=== PATIENT | male | born 1945 | race Caucasian/White ===

== ENCOUNTER 2016-06-09 00:05 | Inpatient (IN) | payer MEDICARE, OTHER ==
[2016-06-09] VITALS (74 sets, daily range): BP systolic 66–131; BP diastolic 37–103; PULSE 83–110; RESP 12–33; TEMP 97.9; Ht 185.4 cm; Wt 98.0 kg
[~2016-06-09] VITALS: Ht 185.4 cm; Wt 98.0 kg
[~2016-06-09 00:05] MED LIST: ACYC800T PO; BETA10003 PO; COLC0.6T49 PO; DUTA0.5C PO; ECHI167T PO; FINA5TAB PO; LEVO50TA74 PO; LISI2.5T59 PO; LORA-407 PO; MAGN250T24 PO; METH4TAB PO; PHEN-537 PO; SILO8CAP PO; [UNRECOGNIZED DRUG - OTHER]
[2016-06-09] MEDS ORDERED: SOD CHLORIDE 0.9% 1,000 ML IV STA (00:14)
[2016-06-09] MEDS ORDERED: ONDANSETRON 4 MG INJ IV STA (00:14)
[2016-06-09] MEDS ORDERED: PANTOPRAZOLE IV 80 MG in SOD CHLORIDE 0.9% 100 ML IVPB STA (00:14)
[2016-06-09] MEDS ORDERED: OCTREOTIDE 500 MCG in SOD CHLORIDE 0.9% 49 ML IV STA (00:14)
[2016-06-09] MEDS ORDERED: OCTREOTIDE 50 MCG in SOD CHLORIDE 0.9% 25 ML IVPB STA (00:14)
[2016-06-09] MEDS ORDERED: morphine 4 MG/ML VIAL IV STA (00:14)
[2016-06-09] MEDS ORDERED: PANTOPRAZOLE IV 80 MG in SOD CHLORIDE 0.9% 100 ML IV STA (00:14)
[2016-06-09 00:32] LABS: ADD SCAN DIFF NO
[2016-06-09 00:37] LABS: ABNORMAL IP MESSAGE 1; HEMATOCRIT 16.3 % (42.0-52.0); MEAN CORPUSCULAR HEMOGLOBIN 22.1 pg (29.0-33.0); MEAN CORPUSCULAR HGB CONC 27.6 g/dl (32.0-37.0); MEAN CORPUSCULAR VOLUME 79.9 fl (82.0-101.0); MEAN PLATELET VOLUME 12.4 fl (7.4-10.4); PLATELET COUNT 218 10^3/UL (140-415); RED BLOOD COUNT 2.04 10^6/ul (4.70-6.10); RED CELL DISTRIBUTION WIDTH 19.1 % (11.5-14.5)
[2016-06-09 00:48] LABS: INR 1.56; PROTIME 18.8 Sec (12.2-14.2); PT RATIO 1.5
[2016-06-09 00:49] LABS: ALBUMIN 2.6 g/dl (3.3-4.9); CHLORIDE 103 mmol/L (97-110); PARTIAL THROMBOPLASTIN TIME 32.1 Sec (25.0-35.0); SODIUM 140 mmol/L (135-144)
[2016-06-09 00:50] LABS: POTASSIUM 4.2 mmol/L (3.5-5.1)
[2016-06-09 00:51] LABS: BILIRUBIN,INDIRECT 0.2 mg/dl (0-1.1); BILIRUBIN,TOTAL 0.2 mg/dl (0.2-1.3)
[2016-06-09 00:52] LABS: ALANINE AMINOTRANSFERASE 21 IU/L (13-69); ALBUMIN/GLOBULIN RATIO 0.76; ALKALINE PHOSPHATASE 72 IU/L (42-121); ANION GAP 24 (8-16); ASPARTATE AMINO TRANSFERASE 25 IU/L (15-46); BLOOD UREA NITROGEN 31 mg/dl (7-20); CALCIUM 8.4 mg/dl (8.4-10.2); CARBON DIOXIDE 17 mmol/L (21-31); GLUCOSE 244 mg/dl (70-220); HEMOGLOBIN 4.5 g/dl (14.0-18.0)
[2016-06-09 01:07] LABS: TROPONIN-I < 0.012 ng/ml (0.00-0.12)
[2016-06-09] MEDS ORDERED: SOD CHLORIDE 0.9% 1,000 ML IV ONE (01:30)
[2016-06-09] MEDS ORDERED: FENTAnyl 50 MCG/ML VIAL IV ONE (01:30)
[2016-06-09] MEDS ORDERED: LORAZEPAM 2 MG INJ IV ONE (01:30)
[2016-06-09 02:05] LABS: EOSINOPHILS # 0.5 10^3/ul (0.0-0.5); MONOCYTE # 0.9 10^3/ul (0.3-0.9); NEUTROPHIL # 5.6 10^3/ul (1.6-7.5)
[2016-06-09 02:06] LABS: PLATELET ESTIMATE PLT APPEAR ADEQUATE
--- NOTE | 2016-06-09 02:58 | ERA ---
ER Documentation Chief Complaint Date/Time DATE: 06/09/16 TIME: 02:57 Chief Complaint LARGE AMT OF DARK BLOOD VOMITED X 3 IN THE LAST HOUR HPI This is a 71-year-old male with large amount of dark blood vomiting last 3 hours. Patient has a history of esophageal variceal bleeding. Patient had banding done previously. Patient looks pale and diaphoretic upon arrival via EMS. ROS All systems reviewed and are negative except as per history of present illness. Medications Home Meds Reported Medications Magnesium (Magnesium) 250 Mg Tablet, 250 MG PO AM 05/14/11 [Pruna Lax Laxitive] No Conflict Check 05/14/11 Echinacea* (Echinacea*) 167 Mg Tablet, 167 MG PO BID 05/14/11 Beta-Carotene (Beta Carotene) 10,000 Unit Capsule, 20159 UNIT PO TID 05/14/11 Dutasteride* (Avodart*) 0.5 Mg Capsule, 0.5 MG PO AM 05/14/11 Methylprednisolone* (Medrol*) 4 Mg Tab, 4 MG PO PRN ITCHING Y 05/14/11 Acyclovir* (Acyclovir*) 800 Mg Tablet, 800 MG PO QID 05/14/11 Loratadine (Claritin) 10 Mg Tablet, 10 MG PO AM Y 05/14/11 Silodosin (Rapaflo) 8 Mg Capsule, 8 MG PO AM 05/14/11 Finasteride* (Proscar*) 5 Mg Tablet, 5 MG PO AM 05/14/11 Phenazopyridine Hcl* (Pyridium*) 100 Mg Tab, 100 MG PO PRN PAINFUL URINATIO Y 05/14/11 Lisinopril* (Lisinopril*) 2.5 Mg Tablet, 2.5 MG PO UNKNWOWN DOSE AM 05/14/11 Colchicine (Colchicine) 0.6 Mg Tablet, 0.6 MG PO BID 05/14/11 Levothyroxine Sodium* (Levothyroxine Sodium*) 50 Mcg Tablet, 50 MCG PO UNKNOWN DOSE AM 05/14/11 Allergies Allergies: Coded Allergies: ibuprofen (Verified Allergy, RASH, 05/14/11) PMhx/Soc History of Surgery: Yes (MUTIPLE PROSTATE/RECTAL SX'S/APPENDIX) Anesthesia Reaction: No Hx Neurological Disorder: No Hx Respiratory Disorders: No Hx Cardiac Disorders: Yes (HTN,SWELLING +3 BILATERAL LE,AT TIMES HR IRREGULAR) Hx Psychiatric Problems: No Hx Miscellaneous Medical Probl: Yes (ANEMIA,FMF,MICHAEL PONCE, HEP C, LIVER CIRRHOSIS) Hx Alcohol Use: Yes (DAILY 2 DRINKS - FORMER) Hx Substance Use: No Hx Tobacco Use: No (QUIT 2 YEARS AGO/100 PACK YEARS) Smoking Status: Former smoker Physical Exam Vitals Vital Signs Date Time Temp Pulse Resp B/P Pulse Ox O2 Delivery O2 Flow Rate FiO2 06/09/16 01:36 106 83/49 06/09/16 01:02 97.5 103 24 83/51 100 Room Air 06/09/16 00:25 Nasal Cannula 4 06/09/16 00:20 96.2 114 24 65/37 100 Physical Exam Const: [] Head: Atraumatic Eyes: Normal Conjunctiva ENT: Normal External Ears, Nose and Mouth. Neck: Full range of motion..~ No meningismus. Resp: Clear to auscultation bilaterally Cardio: Regular rate and rhythm, no murmurs Abd: Soft, non tender, non distended. Normal bowel sounds Skin: No petechiae or rashes Back: No midline or flank tenderness Ext: No cyanosis, or edema Neur: Awake and alert Psych: Normal Mood and Affect Result Diagram: 06/09/16 0022 06/09/16 0022 Results 24 hrs Laboratory Tests Test 06/09/16 00:22 Activated Partial Thromboplast Time 32.1Sec Alanine Aminotransferase (ALT/SGPT) 21IU/L Albumin 2.6g/dl Albumin/Globulin Ratio 0.76 Alkaline Phosphatase 72IU/L Anion Gap 24 Aspartate Amino Transf (AST/SGOT) 25IU/L Blood Urea Nitrogen 31mg/dl Calcium Level 8.4mg/dl Carbon Dioxide Level 17mmol/L Chloride Level 103mmol/L Creatinine 1.20mg/dl Direct Bilirubin 0.00mg/dl Eosinophils # 0.510^3/ul Eosinophils % 5.0% Globulin 3.40g/dl Glucose Level 244mg/dl Hematocrit 16.3% Hemoglobin 4.5g/dl INR International Normalized Ratio 1.56 Indirect Bilirubin 0.2mg/dl Lipase 230U/L Lymphocytes # 3.010^3/ul Lymphocytes % 30.0% Mean Corpuscular Hemoglobin 22.1pg Mean Corpuscular Hemoglobin Concent 27.6g/dl Mean Corpuscular Volume 79.9fl Mean Platelet Volume 12.4fl Monocytes # 0.910^3/ul Monocytes % 9.0% Neutrophils # 5.610^3/ul Neutrophils % 56.0% Platelet Count 47250^3/UL Platelet Estimate PLT APPEAR ADEQUATE Potassium Level 4.2mmol/L Prothrombin Time 18.8Sec Prothrombin Time Ratio 1.5 Red Blood Count 2.0410^6/ul Red Cell Distribution Width 19.1% Sodium Level 140mmol/L Total Bilirubin 0.2mg/dl Total Protein 6.0g/dl Troponin I < 0.012ng/ml White Blood Count 10.010^3/ul Current Medications Medications (Trade) Dose Ordered Sig/Osman Route PRN Reason Start Time Stop Time Status Last Admin Dose Admin Sodium Chloride 1,000 ml @ 1,000 mls/hr Q1H STAT IV 06/09/16 00:14 06/09/16 01:13 DC 06/09/16 00:41 Pantoprazole 80 mg/Sodium Chloride 100 ml @ 400 mls/hr ONCE STAT IVPB 06/09/16 00:14 06/09/16 00:28 DC 06/09/16 00:45 Pantoprazole 80 mg/Sodium Chloride 100 ml @ 10 mls/hr ONCE STAT IV 06/09/16 00:14 06/09/16 10:13 06/09/16 00:44 Octreotide Acetate 50 mcg/ Sodium Chloride 26 ml @ 100 mls/hr Q16M STAT IVPB 06/09/16 00:14 06/09/16 00:29 DC 06/09/16 00:45 Octreotide Acetate/Sodium Chloride (Sandostatin/NS) 50 ml @ 5 mls/hr ONCE STAT IV 06/09/16 00:14 06/09/16 10:13 06/09/16 00:44 Ondansetron HCl (Zofran Inj) 4 mg ONCE STAT IV 06/09/16 00:14 06/09/16 00:17 DC 06/09/16 00:42 Morphine Sulfate 4 mg 4 mg ONCE STAT IV 06/09/16 00:14 06/09/16 00:17 DC 06/09/16 00:42 Sodium Chloride (NS) 1,000 ml @ 1,000 mls/hr Q1H ONCE IV 06/09/16 01:30 06/09/16 02:29 DC 06/09/16 01:19 Fentanyl (Sublimaze) 50 mcg ONCE ONCE IV 06/09/16 01:30 06/09/16 01:31 DC 06/09/16 01:19 Lorazepam (Ativan) 1 mg ONCE ONCE IV 06/09/16 01:30 06/09/16 01:31 DC 06/09/16 01:47 Procedures/MDM EKG: Rate/Rhythm: [Normal Sinus Rhythm] QRS, ST, T-waves: [No changes consistent w/ acute ischemia] Impression: [No evidence of ischemia or arrhythmia] Emergency department course and medical doing making decision: Patient was immediately taken to room and 2 large-bore IVs placed. He was given normal some fluid bolus. He is typed and crossed for 4 units of blood. NG tube was placed. 600 mL's of blood was drained. GI was consulted immediately. Patient was started on Protonix and Sandostatin drip. Patient will be admitted to intensive care unit. Pending esophageal variceal banding by GI. Critical Care: Time: 45 minutes Treatments/Evaluations: Close monitoring and treatment of unstable vital signs, cardiorespiratory, and neurologic status, while maintaining tight balance of fluid, respiratory, and cardiac interventions. Departure Diagnosis: Primary Impression: Gastrointestinal hemorrhage Qualified Code: K92.0 - Gastrointestinal hemorrhage with hematemesis Condition: Critical MONTY MACEDO Jun 09, 2016 02:58
--- NOTE | 2016-06-09 02:58 | RADRPT ---
PROCEDURE: XR Chest. CLINICAL INDICATION: NG tube placement. TECHNIQUE: Single frontal chest x-ray. COMPARISON: None. FINDINGS: Heart is enlarged.. There is hypoventilation with bibasilar atelectasis.. No CHF.. There is no ple ural effusion. There is no pneumothorax. The osseous structures are unremarkable. NG tube tip is in the stomach. Bowel gas pattern is unremarkable. IMPRESSION: Cardiomegaly. Hypoventilation with bibasilar atelectasis. NG tube tip in the stomach. RPTAT: HMVK .Mario Interiano MD, Date Time Electronically viewed and signed by .Mario Interiano MD, on 06/09/2016 02:58 .K/
[2016-06-09] MEDS ORDERED: DEXTROSE 5%-0.45% NACL 1,000 ML IV SCH (04:01)
[2016-06-09] MEDS ORDERED: NORepinephrine 8MG/250 ML (PMX 250 ML IV SCH (04:30)
[2016-06-09] MEDS ORDERED: ONDANSETRON 4 MG INJ IV PRN (04:30)
[2016-06-09] MEDS ORDERED: ALBUTEROL 0.5% (NEB) 2.5 MG/0.5 ML AMP NEB PRN (04:30)
--- NOTE | 2016-06-09 04:45 | HP ---
Date/Time of Note Date/Time of Note DATE: 06/09/16 TIME: 04:25 Assessment/Plan VTE Prophylaxis VTE Prophylaxis Intervention: SCD's Assessment/Plan Assessment/Plan 1. Upper GI Bleed, most likely 2/2 bleeding EV - Protonix and Octreotide gtt - Cont Blood Transfusion - Awaiting GI Eval - Admit to ICU and Pressor support as needed - check Iron profile and ferritin - check H/H frequently until hgb stable 2. Severe Anemia - see above 3. Decompensated Alcoholic Liver Cirrhosis - Will obtain Abd u/s. Paracentesis PRN - Lasix and Aldactone when BP stable. Lactulose when no longer NPO. He also need to be on propranolol if BP allows - pt last drink a year ago. Encouraged continued abstinence 4. Hypotension: 2/2 GI Bleed. Improved - cont blood transfusion and IVF - pressors as needed - awaiting EGD 5. Hypothyroidism - Synthroid when no longer NPO. If prolonged NPO, will start on IV with appropriate dose adjustment DVT ppx: SCDs. Avoid anti-coagulation GI ppx: cont Protonix gtt HPI/ROS Admit Date/Time Admit Date/Time Hx of Present Illness This is a 71 yo male with hx of HTN, hypothyroidism, alcoholic liver cirrhosis who presented to ER for hematemesis. He is accompanied by his son and grand daughter who provided almost all history. Pt is somehow sleepy, but arousable and is able to answer questions with help of membership counselor. He has been feeling weak and nauseous all day yesterday, then had hematemesis with large amount of bright red blood(family took a picture on cell phone). This is his first episode of upper GI Bleed. He had noted dark stool in the past. He had an EGD 3 months ago, but per son no banding/ligation. They also reported hx of hepatic encephalopathy. He is not entirely compliant with all his medication. In ER, he was found to be severely anemic with hgb of 4.5 and hypotensive with initial BP of 65/37. Currently his is receiving blood transfusion and awaiting GI evaluation. . PMH/Family/Social Past Medical History Medical History: hypertension, hyperthyroid, other (cirrhosis) Past Surgical History 1. hernia 2. lap choley 3. cataract Social History Alcohol Use: sober Smoking Status: Former smoker Drug Use: none Exam/Review of Systems Vital Signs Vitals Vital Signs Date Time Temp Pulse Resp B/P Pulse Ox O2 Delivery O2 Flow Rate FiO2 06/09/16 03:15 101 15 96/70 06/09/16 03:00 97.7 100 Room Air 06/09/16 00:25 4 Exam Constitutional: other (Sleepy, but arousable. obese) Head: atraumatic, normocephalic Eyes: EOMI, PERRL, icteric Respiratory: clear to auscultation, normal air movement Cardiovascular: other (tachycardic withregular rhythm) Gastrointestinal: other (obese), soft, tender Extremities: normal pulses, other (trace pitting edema in lower ext bilaterally ) Labs Result Diagram: 06/09/16 0022 06/09/16 0022 Medications Medications Current Medications Dextrose/Sodium Chloride (D5-1/2ns) 1,000 ml @ 100 mls/hr Q10H IV ; Start at 04:01 Ondansetron HCl (Zofran Inj) 4 mg Q6H PRN IV NAUSEA AND/OR VOMITING; Start 06/09 at 04:30 Morphine Sulfate (morphine) 2 mg Q4H PRN IV PAIN LEVEL 7-10; Start 06/09/16 at 04:30 Lorazepam 1 mg 1 mg Q2H PRN IV ANXIETY; Start 06/09/16 at 04:30 Norepinephrine (Levophed) 250 ml @ 1.875 mls/ hr TITRATE IV ; Start 06/09/16 at 04:30; Status UNV Lactulose 20 gm 20 gm Q8 PO ; Start 06/09/16 at 12:00; Status UNV Pantoprazole 80 mg/Sodium Chloride 100 ml @ 10 mls/hr Q10H IV ; Start 06/09/16 at 04:04; Status UNV Octreotide Acetate/Sodium Chloride (Sandostatin/NS) 50 ml @ 2.5 mls/hr Q20H IV ; Start 06/09/16 at 04:04; Status UNV MONTY SEARS MD Jun 09, 2016 04:36
--- NOTE | 2016-06-09 05:26 | CONS ---
Date/Time of Note Date/Time of Note DATE: 06/09/16 TIME: 05:26 Consultation Date/Type/Reason Admit Date/Time Past Medical History Medical History: hypertension, hyperthyroid, other (cirrhosis) Social History Alcohol Use: sober Smoking Status: Former smoker Drug Use: none Exam/Review of Systems Vital Signs Vitals Vital Signs Date Time Temp Pulse Resp B/P Pulse Ox O2 Delivery O2 Flow Rate FiO2 06/09/16 04:42 97.9 99 16 84/65 99 Room Air 2.0 Intake and Output 06/08/16 06/08/16 06/09/16 15:00 23:00 07:00 Intake Total 2126 ml Output Total 800 ml Balance 1326 ml Results Result Diagram: 06/09/16 0022 06/09/16 0022 Results 24 hrs Laboratory Tests Test 06/09/16 00:22 Activated Partial Thromboplast Time 32.1 Alanine Aminotransferase (ALT/SGPT) 21 Albumin 2.6 L Albumin/Globulin Ratio 0.76 Alkaline Phosphatase 72 Anion Gap 24 H Aspartate Amino Transf (AST/SGOT) 25 Blood Urea Nitrogen 31 H Calcium Level 8.4 Carbon Dioxide Level 17 L Chloride Level 103 Creatinine 1.20 Direct Bilirubin 0.00 Eosinophils # 0.5 Eosinophils % 5.0 Globulin 3.40 H Glucose Level 244 H Hematocrit 16.3 L Hemoglobin 4.5 *L INR International Normalized Ratio 1.56 Indirect Bilirubin 0.2 Lipase 230 Lymphocytes # 3.0 H Lymphocytes % 30.0 Mean Corpuscular Hemoglobin 22.1 L Mean Corpuscular Hemoglobin Concent 27.6 L Mean Corpuscular Volume 79.9 L Mean Platelet Volume 12.4 H Monocytes # 0.9 Monocytes % 9.0 Neutrophils # 5.6 Neutrophils % 56.0 Platelet Count 218 Platelet Estimate PLT APPEAR ADEQUATE Potassium Level 4.2 Prothrombin Time 18.8 H Prothrombin Time Ratio 1.5 Red Blood Count 2.04 L Red Cell Distribution Width 19.1 H Sodium Level 140 Total Bilirubin 0.2 Total Protein 6.0 L Troponin I < 0.012 White Blood Count 10.0 Medications Medications Current Medications Dextrose/Sodium Chloride (D5-1/2ns) 1,000 ml @ 100 mls/hr Q10H IV ; Start at 04:01 Ondansetron HCl (Zofran Inj) 4 mg Q6H PRN IV NAUSEA AND/OR VOMITING; Start 06/09 at 04:30 Morphine Sulfate (morphine) 2 mg Q4H PRN IV PAIN LEVEL 7-10; Start 06/09/16 at 04:30 Lorazepam 1 mg 1 mg Q2H PRN IV ANXIETY; Start 06/09/16 at 04:30 Norepinephrine (Levophed) 250 ml @ 1.875 mls/ hr TITRATE IV ; Start 06/09/16 at 04:30; Stop 06/09/16 at 09:59 Lactulose 20 gm 20 gm Q8H PO ; Start 06/09/16 at 12:00 Pantoprazole 80 mg/Sodium Chloride 100 ml @ 10 mls/hr Q10H IV ; Start 06/09/16 at 10:14 Octreotide Acetate/Sodium Chloride (Sandostatin/NS) 50 ml @ 2.5 mls/hr Q20H IV ; Start 06/09/16 at 06:00 Dutasteride (Avodart) 0.5 mg AM PO ; Start 06/09/16 at 09:00 Finasteride (Proscar) 5 mg AM PO ; Start 06/09/16 at 09:00 Levothyroxine Sodium 50 mcg 50 mcg DAILY@06 PO ; Start 06/09/16 at 06:00 Norepinephrine/ Dextrose (Levophed/D5W) 500 ml @ 1.87 mls/hr TITRATE IV ; Start 06/09/16 at 10:00 JAC DAVIS MD Jun 09, 2016 05:26
[2016-06-09] MEDS: LEVOTHYROXINE 50 MCG TAB PO SCH (06:00)
[2016-06-09] MEDS ORDERED: PROPOFOL 100 ML ONE (06:17)
--- NOTE | 2016-06-09 06:26 | CONS ---
Date/Time of Note Date/Time of Note DATE: 06/09/16 TIME: 06:17 Assessment/Plan Assessment/Plan Additional Assessment/Plan Assessment: * Upper GI bleeding * Likely variceal * Cirrhosis of the liver, alcohol induced * Probable esophageal varices * Small amount of ascites * Mild coagulopathy * History of alcohol abuse * History of hypothyroidism Plan: * Proceed with emergency EGD * Further recommendation will depend on her findings Consultation Date/Type/Reason Admit Date/Time Date of Consultation: Jun 09, 2016 Type of Consultation: GI Reason for Consultation * GI bleeding Hx of Present Illness 71-year-old male primarily Samoan-speaking, interviewed in the presence of his son and granddaughter who translated. The patient is known case of cirrhosis of the liver secondary to alcohol abuse. He has in the past been seen by Dr. Orlando who perform endoscopic examination and told him he had varices initially recommended banding but subsequently this was not performed. The patient presented to the emergency room with significant hematemesis and hemoglobin of 4.5. Nasogastric lavage disclosed large amounts of fresh blood. The patient is alert, oriented and uncomfortable. We will proceed with emergency endoscopy possible banding at this time. The procedure has been explained to the patient's son who translates the patient including risks, benefits and alternatives. They are agreeable to proceed. Constitutional: other (Weakness) Eyes: no complaints, No discharge, No other, No pain, No redness, No visual change ENT: no complaints, No bleeding, No congestion, No discharge, No dysphagia, No other, No pain, No sore throat Respiratory: no complaints Cardiovascular: no complaints, No chest pain, No edema, No lightheadedness, No orthopenea, No other, No palpitations, No paroxysmal nocturnal dyspnea Gastrointestinal: no complaints, other (Hematemesis), pain (Diffuse abdominal pain, mild), No blood, No constipation, No decreased appetite, No diarrhea, No flatus, No nausea, No passing stool, No vomiting Genitourinary: no complaints, No bleeding, No discharge, No dysuria, No flank pain, No hematuria, No other Musculoskeletal: no complaints, No back pain, No bone/joint pain, No neck pain, No other, No restricted range of motion, No swelling Skin: no complaints, No bruising, No erythema, No laceration, No other, No pruritis, No rash, No skin lesions Neurologic: no complaints, No confusion, No dizziness, No focal-weakness, No headache, No other, No seizure, No syncope Endocrine: no complaints, No dry skin, No other, No polydypsia, No polyuria, No temp intolerance Lymphatic: no complaints, No adenopathy, No lymphadema, No other, No tender nodes Psychological: anxiety, no complaints, No confusion Immunologic: no complaints, No immunodeficiency, No other, No pruritis, No rhinitis, No urticaria Past Medical History Medical History: hypertension, hyperthyroid, other (cirrhosis) Past Surgical History Past Surgical Hx: no surgical history Family History Significant Family History: no pertinent family hx Social History Alcohol Use: other (Previously heavy ethanol abuse) Smoking Status: Former smoker Drug Use: none Exam/Review of Systems Vital Signs Vitals Vital Signs Date Time Temp Pulse Resp B/P Pulse Ox O2 Delivery O2 Flow Rate FiO2 06/09/16 04:42 97.9 99 16 84/65 99 Room Air 2.0 Intake and Output 06/08/16 06/08/16 06/09/16 15:00 23:00 07:00 Intake Total 2126 ml Output Total 800 ml Balance 1326 ml Exam Constitutional: alert, oriented, other (Anxious, in mild distress due to abdominal discomfort), well developed Psych: anxiety, nl mood/affect, no complaints Head: atraumatic, normocephalic Eyes: EOMI, PERRL, nl conjunctiva, nl lids, nl sclera ENMT: nl external ears & nose, nl lips & teeth, nl nasal mucosa & septum Neck: non-tender, supple Respiratory: clear to auscultation, diminished breath sounds, normal air movement, No crackles/rales, No wheezing Cardiovascular: nl pulses, regular rate and rhythm, No edema, No murmurs/extra sounds, No rub Gastrointestinal: ascites, bowel sounds, distended, nl liver, spleen, soft, tender (Mild diffuse), No hepatomegaly, No mass, No rebound or guarding, No splenomegaly Musculoskeletal: nl extremities to inspection, No swelling Extremities: normal pulses, No calf tenderness, No clubbing, No edema, No tenderness Skin: nl turgor, No rash or lesions Lymph: nl lymph nodes Results Result Diagram: 06/09/16 0022 06/09/16 0022 Results 24 hrs Laboratory Tests Test 06/09/16 00:22 Activated Partial Thromboplast Time 32.1 Alanine Aminotransferase (ALT/SGPT) 21 Albumin 2.6 L Albumin/Globulin Ratio 0.76 Alkaline Phosphatase 72 Anion Gap 24 H Aspartate Amino Transf (AST/SGOT) 25 Blood Urea Nitrogen 31 H Calcium Level 8.4 Carbon Dioxide Level 17 L Chloride Level 103 Creatinine 1.20 Direct Bilirubin 0.00 Eosinophils # 0.5 Eosinophils % 5.0 Globulin 3.40 H Glucose Level 244 H Hematocrit 16.3 L Hemoglobin 4.5 *L INR International Normalized Ratio 1.56 Indirect Bilirubin 0.2 Lipase 230 Lymphocytes # 3.0 H Lymphocytes % 30.0 Mean Corpuscular Hemoglobin 22.1 L Mean Corpuscular Hemoglobin Concent 27.6 L Mean Corpuscular Volume 79.9 L Mean Platelet Volume 12.4 H Monocytes # 0.9 Monocytes % 9.0 Neutrophils # 5.6 Neutrophils % 56.0 Platelet Count 218 Platelet Estimate PLT APPEAR ADEQUATE Potassium Level 4.2 Prothrombin Time 18.8 H Prothrombin Time Ratio 1.5 Red Blood Count 2.04 L Red Cell Distribution Width 19.1 H Sodium Level 140 Total Bilirubin 0.2 Total Protein 6.0 L Troponin I < 0.012 White Blood Count 10.0 Medications Medications Current Medications Dextrose/Sodium Chloride (D5-1/2ns) 1,000 ml @ 100 mls/hr Q10H IV ; Start at 04:01 Ondansetron HCl (Zofran Inj) 4 mg Q6H PRN IV NAUSEA AND/OR VOMITING; Start 06/09 at 04:30 Morphine Sulfate (morphine) 2 mg Q4H PRN IV PAIN LEVEL 7-10; Start 06/09/16 at 04:30 Lorazepam 1 mg 1 mg Q2H PRN IV ANXIETY; Start 06/09/16 at 04:30 Norepinephrine (Levophed) 250 ml @ 1.875 mls/ hr TITRATE IV ; Start 06/09/16 at 04:30; Stop 06/09/16 at 09:59 Lactulose 20 gm 20 gm Q8H PO ; Start 06/09/16 at 12:00 Pantoprazole 80 mg/Sodium Chloride 100 ml @ 10 mls/hr Q10H IV ; Start 06/09/16 at 10:14 Octreotide Acetate/Sodium Chloride (Sandostatin/NS) 50 ml @ 2.5 mls/hr Q20H IV ; Start 06/09/16 at 06:00 Dutasteride (Avodart) 0.5 mg AM PO ; Start 06/09/16 at 09:00 Finasteride (Proscar) 5 mg AM PO ; Start 06/09/16 at 09:00 Levothyroxine Sodium 50 mcg 50 mcg DAILY@06 PO ; Start 06/09/16 at 06:00 Norepinephrine 16 mg/Dextrose 500 ml @ 1.87 mls/hr TITRATE IV ; Start 06/09/16 at 10:00 Propofol (Diprivan) 100 ml @ 3 mls/hr Q12H IV ; Start 06/09/16 at 06:30 JAC DAVIS MD Jun 09, 2016 06:26
[2016-06-09] MEDS: PROPOFOL 100 ML IV SCH ×7 (06:30→22:55)
[2016-06-09] MEDS ORDERED: PHENYLephrine (100 MCG/ML) 5ML SYG ONE (06:38)
[2016-06-09] MEDS ORDERED: PROPOFOL 40 ML ONE (06:38)
[2016-06-09] MEDS ORDERED: SUCCINYLCHOLINE CHLORIDE 100 MG/5 ML SYG IV ONE (07:00)
--- NOTE | 2016-06-09 08:24 | RADRPT ---
PROCEDURE: Abdominal ultrasound CLINICAL INDICATION: Abdominal pain TECHNIQUE: Petersen scale ultrasound images of the four abdominal quadrant was performed for evaluatio n of ascites. COMPARISON: None. FINDINGS: No ascites is seen. IMPRESSION: No free fluid is seen. RPTAT: AADD .Srinivasan Alonzo MD, Date Time Electronically viewed and signed by .Srinivasan Alonzo MD, on 06/09/2016 08:23 .B/
[2016-06-09] MEDS: OCTREOTIDE 500 MCG in SOD CHLORIDE 0.9% 49 ML IV SCH (08:46)
[2016-06-09] MEDS: DUTASTERIDE 0.5 MG CAP PO SCH (09:00)
[2016-06-09] MEDS: FINASTERIDE 5 MG TAB PO SCH (09:00)
--- NOTE | 2016-06-09 09:02 | RADRPT ---
PROCEDURE: XR Chest. CLINICAL INDICATION: Status post intubation TECHNIQUE: An AP view of the chest was obtained. COMPARISON: Chest x-ray dated 06/09/2016 FINDINGS: The endotracheal tube tip is approximately 3.5 cm above the sandi. Lung volumes are low. There is prominence of the interstitial markings. There are left lower lobe and lingular alveolar opacities. No pleural effusion or pneumothorax is seen. The cardiomediastinal silhouette is mildly enlarged . Calcifications are seen within the aortic arch. The osseous struc tures demonstrate senescent changes. IMPRESSION: 1. Interval intubation. The endotracheal tube tip is 2.5 cm above the sandi. 2. Lingular and left lower lobe alveolar opacities, new finding when compared to the prior examinat ion, concerning for pneumonia. 3. Low lung volumes. 4. Mild cardiomegaly and aortic atherosclerosis. RPTAT: HH .Lesley Flores MD, MD Date Time Electronically viewed and signed by .Lesley Flores MD, on 06/09/2016 09:02 .Aleksandra/
[2016-06-09 09:21] LABS: AADO2 Arterial 289.3 mmHg (7.0-24.0); Allen Test ACCEPTAB; Arterial Base Excess -8.6 mmol/L (-3.0-3); Arterial COHb 0.3 % (0.0-3.0); Arterial Fraction of Oxyhgb 98.2 % (93.0-99.0); Arterial HCO3 17.1 mmol/L (22.0-26.0); Arterial MetHb 0.5 % (0.0-1.5); MODE VENT - AC
[2016-06-09] MEDS: PANTOPRAZOLE IV 80 MG in SOD CHLORIDE 0.9% 100 ML IV SCH ×2 (11:08→20:23)
[2016-06-09] MEDS: LACTULOSE 30ML CUP PO SCH ×2 (11:08→20:00)
--- NOTE | 2016-06-09 11:09 | CONS ---
Date/Time of Note Date/Time of Note DATE: 06/09/16 TIME: 11:02 Assessment/Plan Assessment/Plan Additional Assessment/Plan Ventilator settings; assist control of 14, tidal volume 500, PEEP of 5, 40% FiO2. Chest x-ray was reviewed from earlier today which is essentially clear this was prior to intubation. Postintubation chest x-ray showing extensive infiltrative changes involving the left lung. Endo-tracheal tube is at an adequate level. Assessment recommendations; 1. Patient admitted with massive upper GI bleed status post emergent EGD with banding of varices. Status post blood transfusion. 2. Likely aspiration pneumonia involving the left lung. 3. Patient maintained on Protonix as well as Sandostatin drips. 4. Metabolic acidosis, should maintain on sodium bicarb drip as well. 5. History of hypothyroidism. Continue current supportive care. Add cefepime and vancomycin. Obtain follow- up chest x-ray tomorrow morning. Monitor H&H. Consultation Date/Type/Reason Admit Date/Time Date of Consultation: Jun 09, 2016 Type of Consultation: Pulmonary/critical care Reason for Consultation Pulmonary consultation obtained for patient with respiratory failure. Admitted with massive upper GI bleed. Next History of present illness; patient is a 71-year-old white male who was brought into the emergency room with several hours history of vomiting fresh blood. Upon evaluation patient was found to be severely anemic. He underwent emergent EGD with banding of esophageal varices. Patient also has received packed RBCs. At the time I saw him the patient is orally intubated, sedated. Does not appear to be in any distress. History was obtained from medical records. Past medical history; 1. History of alcoholism with cirrhosis. 2. Hypothyroidism. 3. BPH. 4. Hypertension. 5. History of herpes simplex infection. 6. History of cataract surgery with bilateral intraocular lens implants. 7. Possibly COPD. Next Medications; were reviewed. Allergies; are to ibuprofen. Social history; patient drinks alcohol heavily. Has 100 pack year smoking history as well however he quit 2 years ago. Family history; noncontributory. Occupational history; not available. Review of systems; currently unable to be obtained. General examination; elderly male, appears quite overweight. Orally intubated, sedated. Currently in no distress. Constitutional: other (Weakness) Eyes: no complaints, No discharge, No other, No pain, No redness, No visual change ENT: no complaints, No bleeding, No congestion, No discharge, No dysphagia, No other, No pain, No sore throat Respiratory: no complaints Cardiovascular: no complaints, No chest pain, No edema, No lightheadedness, No orthopenea, No other, No palpitations, No paroxysmal nocturnal dyspnea Gastrointestinal: no complaints, other (Hematemesis), pain (Diffuse abdominal pain, mild), No blood, No constipation, No decreased appetite, No diarrhea, No flatus, No nausea, No passing stool, No vomiting Genitourinary: no complaints, No bleeding, No discharge, No dysuria, No flank pain, No hematuria, No other Musculoskeletal: no complaints, No back pain, No bone/joint pain, No neck pain, No other, No restricted range of motion, No swelling Skin: no complaints, No bruising, No erythema, No laceration, No other, No pruritis, No rash, No skin lesions Neurologic: no complaints, No confusion, No dizziness, No focal-weakness, No headache, No other, No seizure, No syncope Endocrine: no complaints, No dry skin, No other, No polydypsia, No polyuria, No temp intolerance Lymphatic: no complaints, No adenopathy, No lymphadema, No other, No tender nodes Psychological: anxiety, nl mood/affect, no complaints Immunologic: no complaints, No immunodeficiency, No other, No pruritis, No rhinitis, No urticaria Past Medical History Medical History: hypertension, hyperthyroid, other (cirrhosis) Past Surgical History Past Surgical Hx: no surgical history Social History Alcohol Use: other (Previously heavy ethanol abuse) Smoking Status: Former smoker Drug Use: none Exam/Review of Systems Vital Signs Vitals Vital Signs Date Time Temp Pulse Resp B/P Pulse Ox O2 Delivery O2 Flow Rate FiO2 06/09/16 07:45 97 86/50 100 06/09/16 07:15 18 Mechanical Ventilator 06/09/16 06:00 100 06/09/16 05:45 2.0 06/09/16 05:30 97.8 Intake and Output 06/08/16 06/08/16 06/09/16 15:00 23:00 07:00 Intake Total 2141 ml Output Total 800 ml Balance 1341 ml Exam H EENT examination; supple neck, no JVD. No lymphadenopathy. Midline trachea. Patient is orally intubated. Has bilateral intraocular lens implants. Pupils are small bilaterally. He is edentulous. Chest examination; diminished breath sounds left lung. Right lung is clear. S1 -S2 audible, no murmurs. Regular rhythm. Abdomen examination; protuberant, bowel sounds audible. No organomegaly felt. Extremity examination; no peripheral edema. Pulses 1+ bilaterally. PRODUCTION WELDER examination; patient is sedated. Results Result Diagram: 06/09/16 0022 06/09/16 0022 Results 24 hrs Laboratory Tests Test 06/09/16 00:22 06/09/16 07:00 Activated Partial Thromboplast Time 32.1 Alanine Aminotransferase (ALT/SGPT) 21 Albumin 2.6 L Albumin/Globulin Ratio 0.76 Alkaline Phosphatase 72 Anion Gap 24 H Aspartate Amino Transf (AST/SGOT) 25 Blood Urea Nitrogen 31 H Calcium Level 8.4 Carbon Dioxide Level 17 L Chloride Level 103 Creatinine 1.20 Direct Bilirubin 0.00 Eosinophils # 0.5 Eosinophils % 5.0 Globulin 3.40 H Glucose Level 244 H Hematocrit 16.3 L Hemoglobin 4.5 *L INR International Normalized Ratio 1.56 Indirect Bilirubin 0.2 Lipase 230 Lymphocytes # 3.0 H Lymphocytes % 30.0 Mean Corpuscular Hemoglobin 22.1 L Mean Corpuscular Hemoglobin Concent 27.6 L Mean Corpuscular Volume 79.9 L Mean Platelet Volume 12.4 H Monocytes # 0.9 Monocytes % 9.0 Neutrophils # 5.6 Neutrophils % 56.0 Platelet Count 218 Platelet Estimate PLT APPEAR ADEQUATE Potassium Level 4.2 Prothrombin Time 18.8 H Prothrombin Time Ratio 1.5 Red Blood Count 2.04 L Red Cell Distribution Width 19.1 H Sodium Level 140 Total Bilirubin 0.2 Total Protein 6.0 L Troponin I < 0.012 White Blood Count 10.0 Arterial Blood HCO3 17.1 L Arterial Blood Base Excess -8.6 L Arterial Blood Oxygen Saturation 99.0 Adelso Test ACCEPTAB Arterial Blood Gas Puncture Site Right Radial Arterial Blood Carboxyhemoglobin 0.3 Arterial Blood Date Drawn 06/09/2016 9:00:11 AM Arterial Blood Methemoglobin 0.5 Arterial Blood pCO2 (Temp correct) 35.7 Arterial Blood pH (Temp corrected) 7.298 *L Arterial Blood pO2 (Temp corrected) 388.0 H Blood Gas A-a O2 Differential 289.3 H Blood Gas Actual Respiration Rate 20 Blood Gas Critical Value Read Back Vicky CHAPPELL RN Blood Gas Low PEEP Setting 5.0 Blood Gas Modality VENT - AC Blood Gas Notified Time 06/09/2016 9:21:35 AM Blood Gas Notified Whom Padmini BOX Blood Gas Respiration Rate 12.0 Blood Gas Specimen Source Blood arterial Blood Gas Temperature 37.0 Blood Gas Tidal Volume 650.0 FiO2 100.0 Oxyhemoglobin Percent 98.2 Total Hemoglobin 9.0 L Medications Medications Current Medications Ondansetron HCl (Zofran Inj) 4 mg Q6H PRN IV NAUSEA AND/OR VOMITING; Start 06/09 at 04:30 Morphine Sulfate (morphine) 2 mg Q4H PRN IV PAIN LEVEL 7-10; Start 06/09/16 at 04:30 Lorazepam (Ativan) 1 mg Q2H PRN IV ANXIETY; Start 06/09/16 at 04:30 Lactulose 20 gm 20 gm Q8H PO ; Start 06/09/16 at 12:00 Pantoprazole 80 mg/Sodium Chloride 100 ml @ 10 mls/hr Q10H IV ; Start 06/09/16 at 10:14 Octreotide Acetate/Sodium Chloride (Sandostatin/NS) 50 ml @ 2.5 mls/hr Q20H IV Last administered on 06/09/16 08:46; Admin Dose 2.5 MLS/HR; Start 06/09/16 at 06:00 Dutasteride (Avodart) 0.5 mg AM PO ; Start 06/09/16 at 09:00 Finasteride (Proscar) 5 mg AM PO ; Start 06/09/16 at 09:00 Levothyroxine Sodium 50 mcg 50 mcg DAILY@06 PO ; Start 06/09/16 at 06:00 Norepinephrine 16 mg/Dextrose 500 ml @ 1.87 mls/hr TITRATE IV ; Start 06/09/16 at 10:00 Propofol 100 ml @ 3 mls/hr Q12H IV Last administered on 06/09/16 10:18; Admin Dose 27.6 MLS/HR; Start 06/09/16 at 06:30 Propofol 100 ml @ 3 mls/hr Q12H IV ; Start 06/09/16 at 06:30 Sodium Bicarbonate/ Dextrose/Sodium Chloride (Na Bicarb/D5-1/ 2ns) 1,100 ml @ 100 mls/hr Q11H IV ; Start 06/09/16 at 11:30 LEE ANN LEROY Jun 09, 2016 11:09
[2016-06-09] MEDS ORDERED: VANCOMYCIN IV PER PHARMACY XX SCH (11:30)
--- NOTE | 2016-06-09 11:44 | GILP ---
DATE OF PROCEDURE: 06/09/2016 PROCEDURES: Emergency esophagogastroduodenoscopy with endoscopic variceal ligation (banding). PREMEDICATION: Initially MAC converted to general anesthesia. SURGEON: Jac Arce MD. TECHNIQUE: After informed consent, with the patient/relatives understanding the procedure, its indic ations, potential risks and complications, including but not limited to: allergic reaction, bleeding , perforation or infection, and after all pertinent questions were answered to the patients satisfac tion, the patient/relatives signed witnessed informed consent. Following this, premedication was administered slowly IV push under careful cardiovascular and respi ratory monitoring with pulse oximetry, automatic blood pressure and gambling monitor. Once the sedative effect was achieved the patient was place in the left lateral decubitus, the panen doscope was introduced and advanced under visual control. Careful examination of the upper gastrointestinal tract, both on insertion as well as withdrawal of the instrument disclosed the following findings: ESOPHAGUS: There are very large esophageal varices with active bleeding in the distal esophagus. STOMACH: Briefly examined. Large amounts of clots and old blood are present. There appears to be no accumulation or evidence of active bleeding or potential bleeding lesions in the stomach, pylorus or duodenum. At this point, instrument was withdrawn and the banding device was attached to the instrument and gi neil the presence of active bleeding and large amounts of blood in the stomach, the decision was made to intubate the patient protect the airway. Once intubation was accomplished, the endoscope was re introduced and the bleeding site was identified again, active bleeding was present. The band was ap plied to the active bleeding with complete cessation of bleeding. All other prominent varices were banded as well. The patient tolerated the procedure well. IMPRESSION: 1. Actively bleeding esophageal varix post-endoscopic variceal ligation with cessation of bleeding. 2. Large amounts of blood and clots in the stomach but no active bleeding or potential bleeding les ions present. The pylorus appears patent and duodenum with no lesions. PLAN 1. Continue to protect airway until patient's stomach is empty. 2. Protonix and octreotide drips, Reglan. 3. Hemoglobin and hematocrit q.6 h. and transfuse to maintain hemoglobin above 7.5. Dictated By: JAC ARCE MS/NTS Conf#: [id number] DID#: [id number]
[2016-06-09] MEDS: CEFEPIME 1GM/50 ML (PMX) 50 ML IVPB SCH ×2 (12:36→21:34)
[2016-06-09] MEDS: SODIUM BICARBONATE (IV ADD) 100 MEQ in DEXTROSE 5%-0.45% NACL 1,000 ML IV SCH (12:36)
[2016-06-09] MEDS ORDERED: LIDOCAINE 1% (MDV) 20 ML INJ SC ONE (13:00)
[2016-06-09] MEDS ORDERED: VANCOMYCIN 2 GM in SOD CHLORIDE 0.9% 500 ML IVPB SCH (13:30)
[2016-06-09 14:10] LABS: ADD SCAN DIFF NO
[2016-06-09 14:14] LABS: ABNORMAL IP MESSAGE 1; BASOPHILS % 0.4 % (0.0-2.0); EOSINOPHILS # 0.1 10^3/ul (0.0-0.5); EOSINOPHILS % 0.7 % (0.0-7.0); HEMATOCRIT 19.5 % (42.0-52.0); LYMPHOCYTES # 1.1 10^3/ul (0.8-2.9); LYMPHOCYTES % 9.3 % (15.0-51.0); MEAN CORPUSCULAR HEMOGLOBIN 26.6 pg (29.0-33.0); MEAN CORPUSCULAR HGB CONC 33.3 g/dl (32.0-37.0); MEAN CORPUSCULAR VOLUME 79.9 fl (82.0-101.0); MEAN PLATELET VOLUME 11.8 fl (7.4-10.4); MONOCYTE # 1.1 10^3/ul (0.3-0.9); MONOCYTES % 9.9 % (0.0-11.0); PLATELET COUNT 134 10^3/UL (140-415); RED BLOOD COUNT 2.44 10^6/ul (4.70-6.10); RED CELL DISTRIBUTION WIDTH 16.3 % (11.5-14.5); WHITE BLOOD COUNT 11.4 10^3/ul (4.8-10.8)
[2016-06-09 14:16] LABS: HEMOGLOBIN 6.5 g/dl (14.0-18.0)
[2016-06-09 14:23] LABS: ALBUMIN 2.4 g/dl (3.3-4.9)
[2016-06-09 14:26] LABS: ALBUMIN/GLOBULIN RATIO 0.75; BILIRUBIN,INDIRECT 0.5 mg/dl (0-1.1); BILIRUBIN,TOTAL 0.5 mg/dl (0.2-1.3); CALCIUM 7.6 mg/dl (8.4-10.2); CREATININE 1.69 mg/dl (0.61-1.24); TOTAL PROTEIN 5.6 g/dl (6.1-8.1)
[2016-06-09 15:05] LABS: ADD SCAN DIFF NO
[2016-06-09 15:07] LABS: BASOPHILS % 0.3 % (0.0-2.0); EOSINOPHILS # 0.1 10^3/ul (0.0-0.5); HEMATOCRIT 19.8 % (42.0-52.0); LYMPHOCYTES # 1.2 10^3/ul (0.8-2.9); LYMPHOCYTES % 10.1 % (15.0-51.0); MEAN CORPUSCULAR HEMOGLOBIN 26.9 pg (29.0-33.0); MEAN CORPUSCULAR HGB CONC 32.8 g/dl (32.0-37.0); MEAN CORPUSCULAR VOLUME 81.8 fl (82.0-101.0); MEAN PLATELET VOLUME 10.8 fl (7.4-10.4); MONOCYTE # 1.1 10^3/ul (0.3-0.9); NEUTROPHIL # 8.9 10^3/ul (1.6-7.5); NEUTROPHILS % 78.1 % (39.0-77.0); PLATELET COUNT 134 10^3/UL (140-415); RED BLOOD COUNT 2.42 10^6/ul (4.70-6.10); RED CELL DISTRIBUTION WIDTH 16.4 % (11.5-14.5); WHITE BLOOD COUNT 11.4 10^3/ul (4.8-10.8)
[2016-06-09 15:14] LABS: HEMOGLOBIN 6.5 g/dl (14.0-18.0)
[2016-06-09 15:15] LABS: ABNORMAL IP MESSAGE 1
[2016-06-09] MEDS ORDERED: SOD CHLORIDE 0.9% 250 ML IV* ONE (15:23)
[2016-06-09] MEDS ORDERED: SOD CHLORIDE 0.9% 250 ML IV* SCH (15:23)
[2016-06-09 15:32] LABS: CREATININE 1.63 mg/dl (0.61-1.24)
[2016-06-09 15:33] LABS: CALCIUM 7.5 mg/dl (8.4-10.2)
--- NOTE | 2016-06-09 16:17 | RADRPT ---
PROCEDURE: XR Chest. CLINICAL INDICATION: PICC line placement TECHNIQUE: Single frontal view of the chest was obtained COMPARISON: Same day FINDINGS: There is a new left-sided PICC line in place with its tip overlying the mid to lower right atrium. The heart is mildly enlarged. There are decreased patchy left lower lobe infiltrates. There is an endotracheal tube 5 cm above the sandi. RPTAT: AA IMPRESSION: New PICC line with its tip overlying the mid to low right atrium. Retraction of 4 cm is recommended . Decreased patchy left lower lobe infiltrates. .Cayetano Heath MD, MD Date Time Electronically viewed and signed by .Cayetano Heath MD, on 06/09/2016 16:16 .S/
--- NOTE | 2016-06-09 16:25 | RADRPT ---
PROCEDURE: US guidance for PICC line CLINICAL INDICATION: PICC line placement TECHNIQUE: Multiple real-time images were acquired of the patient's arm utilizing a high resolutio n transducer. This was performed by the PICC line nurse for venous access. COMPARISON: None FINDINGS: Ultrasound guidance for PICC line placement. IMPRESSION: Ultrasound guidance for PICC line placement. RPTAT: AA .Cayetano Heath MD, MD Date Time Electronically viewed and signed by .Cayetano Heath MD, on 06/09/2016 16:25 .S/
[2016-06-09] MEDS ORDERED: NA POLYST SULFON 15 GM/60 ML BTL PO ONE ×2 (17:00→19:00)
[2016-06-09] MEDS ORDERED: NA BICARBONATE 8.4% 50 ML SYG IV STA (17:28)
[2016-06-09] MEDS ORDERED: NA POLYST SULFON 15 GM/60 ML BTL PR ONE (17:30)
--- NOTE | 2016-06-09 18:23 | CONS ---
DATE OF ADMISSION: 06/09/2016 DATE OF CONSULTATION: 06/09/2016 Thank you very much for allowing me to evaluate this 71-year-old male admitted today with hematemesi s and now evidence of renal insufficiency. HISTORICAL EVENTS: As you well know, this patient does have a history of hypertension as well as al coholic liver disease and cirrhosis and history of familial Mediterranean fever, admitted via the ER with hemetemesis and now evidence of impaired renal function. Bright red blood was noted upon admi ssion as well as accompanying hypotension. He was rapidly transferred to the intensive care unit an d was intubated. He received 6 units of fresh frozen plasma and was rapidly volume expanded. Endos copy revealed bleeding esophageal varices and these were banded. He presently cannot provide me wit h any additional historical events. He remains on pressors. PHYSICAL EXAMINATION: VITAL SIGNS: BP 105/69, heart rate 96, respirations 26. NECK: No JVD. LUNGS: Reduced breath sounds. HEART: Rhythm regular. No murmur. ABDOMEN: Distended. Organomegaly not appreciated. His abdomen was soft. EXTREMITIES: Revealed no edema. LABORATORY AND DIAGNOSTIC STUDIES: Hematocrit 16.3 on admission. At 1400, hematocrit was 19.5. Cr eatinine 1.2 on admission, increased to 1.69 and presently 1.63 as of 1450. Last bicarbonate was 22 . TSH 0.308. Albumin 2.4. AST and ALT 174 and 100 respectively. Alkaline phosphatase was normal. Bilirubin 0.5. Ultrasound of the abdomen revealed no ascites present. Crandall catheter remains in place. IMPRESSION: Impaired renal function most likely prerenal. Uncertain what his baseline renal functi on is. The prerenal component is related to intravascular volume contraction along with hypotension . RECOMMENDATIONS: Given mild metabolic acidosis and his elevated potassium, we will give additional IV bicarbonate and continue his intravenous fluids that contain the same. Random urinary sodium to be obtained to ascertain whether this is a prerenal component. We will follow with you. Dictated By: LBADIMIR LAFLEUR MD MR/NTS Conf#: [id number] DID#: [id number] CC: MONTY SEARS MD; DIOMEDES MOULTON MD;*EndCC*
[2016-06-09] MEDS ORDERED: NA BICARBONATE 8.4% 50 ML SYG IV ONE (19:00)
--- NOTE | 2016-06-09 21:12 | RADRPT ---
PROCEDURE: Retroperitoneal ultrasound. CLINICAL INDICATION: Renal insufficiency TECHNIQUE: Petersen scale and color doppler ultrasound images of the retroperitoneum, kidneys, urinary bladder COMPARISON: Abdominal ultrasound 06/09/2016 FINDINGS: Right kidney 12.6 cm in length. Right renal cortical thickness is preserved. Left kidney 11.2 cm in length. Left renal cortical thickness is preserved. Increased parenchymal echogenicity of the kidneys is observed, suggestive of medical renal disease. No hydronephrosis. No renal calculi. 9 mm cortical cyst of the superior pole of the right kidney is present. Bladder: No focal lesions. IMPRESSION: Increased parenchymal echogenicity of the kidneys is observed, suggestive of medical renal disease. No hydronephrosis. RPTAT: AADD .Srinivasan Alonzo MD, Date Time Electronically viewed and signed by .Srinivasan Alonzo MD, on 06/09/2016 21:11 .B/
[2016-06-09] MEDS: morphine 2 MG INJ IV PRN (21:31)
[2016-06-09] MEDS: VANCOMYCIN 1 GM in NS 250 ML IVPB SCH (23:05)
[2016-06-10] VITALS (77 sets, daily range): BP systolic 88–130; BP diastolic 39–87; PULSE 77–109; RESP 13–20
[2016-06-10 01:19] LABS: POTASSIUM 4.9 mmol/L (3.5-5.1)
[2016-06-10 01:22] LABS: CREATININE 1.6 mg/dl (0.61-1.24)
[2016-06-10 01:23] LABS: CALCIUM 7.1 mg/dl (8.4-10.2); PHOSPHORUS 3.4 mg/dl (2.5-4.9)
[2016-06-10] MEDS: SODIUM BICARBONATE (IV ADD) 100 MEQ in DEXTROSE 5%-0.45% NACL 1,000 ML IV SCH (01:24)
[2016-06-10 01:42] LABS: HEMATOCRIT 22.5 % (42.0-52.0); HEMOGLOBIN 7.4 g/dl (14.0-18.0)
[2016-06-10] MEDS: PROPOFOL 100 ML IV SCH ×6 (02:49→22:27)
--- NOTE | 2016-06-10 03:24 | RADRPT ---
PROCEDURE: XR Chest. CLINICAL INDICATION: Nasogastric tube placement. TECHNIQUE: Single frontal view of the chest was obtained COMPARISON: Chest dated 06/09/2016. FINDINGS: Nasogastric tube in place with tip and side port in the proximal to mid stomach. The tip is redirec nancy towards the gastroesophageal junction. Endotracheal intubation is seen with tip about 4-5 cm above the sandi. Left central venous line in place with tip in the superior vena cava versus superior vena cava right atrial junction. Cardiomegaly and discoid atelectasis at the left lung base. The right lung is clear. There is no pleural effusion or pneumothorax. IMPRESSION: 1. Nasogastric tube in place with the tip and the side port in the proximal to mid stomach. 2. Endotracheal intubation is seen with tip about 4-5 cm above the sandi. 3. Left central venous line in place with tip in the superior vena cava versus superior vena cava r ight atrial junction. 4. Cardiomegaly and discoid atelectasis at the left lung base. RPTAT: UU Physician Jose Date Time Electronically viewed and signed by Physician Jose on 06/10/2016 03:24 RS/
[2016-06-10 05:02] LABS: HEMATOCRIT 20.1 % (42.0-52.0)
[2016-06-10 05:04] LABS: INR 1.48; PT RATIO 1.4
[2016-06-10 05:05] LABS: PARTIAL THROMBOPLASTIN TIME 32.3 Sec (25.0-35.0)
[2016-06-10] MEDS: LEVOTHYROXINE 50 MCG TAB PO SCH (05:06)
[2016-06-10] MEDS: LACTULOSE 30ML CUP PO SCH ×3 (05:06→21:17)
[2016-06-10 05:07] LABS: POTASSIUM 4.9 mmol/L (3.5-5.1)
[2016-06-10 05:10] LABS: CREATININE 1.49 mg/dl (0.61-1.24)
[2016-06-10 05:11] LABS: CALCIUM 6.5 mg/dl (8.4-10.2); MAGNESIUM 1.6 mg/dl (1.7-2.5)
[2016-06-10 06:12] LABS: HEMOGLOBIN 6.6 g/dl (14.0-18.0)
[2016-06-10 07:22] LABS: AADO2 Arterial 129.7 mmHg (7.0-24.0); Allen Test ACCEPTAB; Arterial Base Excess 1.4 mmol/L (-3.0-3); Arterial COHb 0.2 % (0.0-3.0); Arterial Fraction of Oxyhgb 96.5 % (93.0-99.0); Arterial HCO3 25.3 mmol/L (22.0-26.0); Arterial MetHb 0.7 % (0.0-1.5); Arterial Total Hemglobin 8.8 g/dl (12.0-18.0); MODE VENT - AC
[2016-06-10] MEDS: OCTREOTIDE 500 MCG in SOD CHLORIDE 0.9% 49 ML IV SCH ×2 (07:51→22:00)
[2016-06-10] MEDS: PANTOPRAZOLE IV 80 MG in SOD CHLORIDE 0.9% 100 ML IV SCH ×2 (08:00→17:05)
[2016-06-10] MEDS: FINASTERIDE 5 MG TAB PO SCH (09:00)
[2016-06-10] MEDS: DUTASTERIDE 0.5 MG CAP PO SCH (09:00)
[2016-06-10 09:18] LABS: ADD UMIC NO; URINE BILIRUBIN (Dip) NEGATIVE (NEGATIVE); URINE BLOOD (Dip) NEGATIVE (NEGATIVE); URINE COLOR LT. YELLOW (YELLOW); URINE GLUCOSE (Dip) NEGATIVE (NEGATIVE); URINE KETONES (Dip) NEGATIVE (NEGATIVE); URINE LEUKOCYTE ESTERASE (Dip) NEGATIVE (NEGATIVE); URINE NITRITE (Dip) NEGATIVE (NEGATIVE); URINE TOTAL PROTEIN (Dip) NEGATIVE (NEGATIVE); URINE UROBILINOGEN (Dip) 0.2 E.U./dL (0.1-1.0)
[2016-06-10] MEDS ORDERED: MAGNESIUM SULFATE 2 GM/50 ML 50 ML IVPB ONE (09:30)
[2016-06-10] MEDS: CEFEPIME 1GM/50 ML (PMX) 50 ML IVPB SCH ×2 (09:31→21:17)
[2016-06-10] MEDS: DEXTROSE 5%-0.45% NACL 1,000 ML IV SCH ×3 (09:32→22:27)
--- NOTE | 2016-06-10 09:39 | CONS ---
Date/Time of Note Date/Time of Note DATE: 06/10/16 TIME: 09:29 Assessment/Plan Assessment/Plan Chief Complaint/Hosp Course 1. Acute on chronic renal failure . His renal function is improved . He has increased echogenicity of renal cortex , consistent with CKD . Replace Magnesium and change IV fluids . 2. GI bleeding , from esophageal varices 3. hepatic encephalopathy , due to cirrhosis and Gi bleeding 4. respiratory failure on ventilator Problems: Consultation Date/Type/Reason Admit Date/Time Jun 09, 2016 at 04:01 Initial Consult Date 06/09/16 Type of Consultation: Pulmonary/critical care 24 HR Interval Summary Free Text/Dictation He is unresponsive on a ventilator . He continues to have GI bleeding . Subjective hx not possible: pt non-verbal Exam/Review of Systems Vital Signs Vitals Vital Signs Date Time Temp Pulse Resp B/P Pulse Ox O2 Delivery O2 Flow Rate FiO2 06/10/16 08:00 84 15 104/54 100 Mechanical Ventilator 06/10/16 08:00 40 06/10/16 07:30 98.5 06/09/16 05:45 2.0 Intake and Output 06/09/16 06/09/16 06/10/16 15:00 23:00 07:00 Intake Total 905 ml 3043.826 ml 1513.224 ml Output Total 60 ml 0 ml 1330 ml Balance 845 ml 3043.826 ml 183.224 ml Exam Respiratory: clear to auscultation, diminished breath sounds Cardiovascular: regular rate and rhythm Gastrointestinal: soft Musculoskeletal: nl extremities to inspection Results Result Diagram: 06/10/16 0430 06/10/16 0710 Results 24 hrs Laboratory Tests Test 06/09/16 14:00 06/09/16 14:50 06/10/16 00:33 06/10/16 04:30 Alanine Aminotransferase (ALT/SGPT) 100 H Albumin 2.4 L Albumin/Globulin Ratio 0.75 Alkaline Phosphatase 58 Anion Gap 16 # 16 15 13 Aspartate Amino Transf (AST/SGOT) 174 #H Basophils # 0.0 0.0 Basophils % 0.4 0.3 Blood Urea Nitrogen 41 H 44 H 51 H 53 H Calcium Level 7.6 L 7.5 L 7.1 L 6.5 L Carbon Dioxide Level 23 22 25 30 Chloride Level 107 108 106 107 Creatinine 1.69 H 1.63 H 1.60 H 1.49 H Direct Bilirubin 0.00 Eosinophils # 0.1 0.1 Eosinophils % 0.7 1.0 Globulin 3.20 Glucose Level 125 # 120 135 373 #H Hematocrit 19.5 L 19.8 L 22.5 L 20.1 L Hemoglobin 6.5 #*L 6.5 *L 7.4 L 6.6 *L Indirect Bilirubin 0.5 Lactic Acid Level 2.5 H Lymphocytes # 1.1 1.2 Lymphocytes % 9.3 L 10.1 L Mean Corpuscular Hemoglobin 26.6 #L 26.9 L Mean Corpuscular Hemoglobin Concent 33.3 # 32.8 Mean Corpuscular Volume 79.9 L 81.8 L Mean Platelet Volume 11.8 H 10.8 H Monocytes # 1.1 H 1.1 H Monocytes % 9.9 10.0 Neutrophils # 9.0 H 8.9 H Neutrophils % 79.0 H 78.1 H Nucleated Red Blood Cells # 0.0 0.0 Nucleated Red Blood Cells % 0.0 0.0 Platelet Count 134 #L 134 L Potassium Level 6.0 H 4.9 4.9 Red Blood Count 2.44 L 2.42 L Red Cell Distribution Width 16.3 H 16.4 H Sodium Level 140 140 141 145 H Thyroid Stimulating Hormone (TSH) 0.308 L Total Bilirubin 0.5 Total Protein 5.6 L White Blood Count 11.4 H 11.4 H Ammonia 183 H Magnesium Level 1.7 1.6 L Phosphorus Level 3.4 3.0 Activated Partial Thromboplast Time 32.3 INR International Normalized Ratio 1.48 Prothrombin Time 18.0 H Prothrombin Time Ratio 1.4 Test 06/10/16 07:00 06/10/16 07:10 Arterial Blood HCO3 25.3 Arterial Blood Base Excess 1.4 Arterial Blood Oxygen Saturation 97.4 Adelso Test ACCEPTAB Arterial Blood Gas Puncture Site Right Radial Arterial Blood Carboxyhemoglobin 0.2 Arterial Blood Date Drawn 06/10/2016 7:07:19 AM Arterial Blood Methemoglobin 0.7 Arterial Blood pCO2 (Temp correct) 37.0 Arterial Blood pH (Temp corrected) 7.453 H Arterial Blood pO2 (Temp corrected) 113.0 H Blood Gas A-a O2 Differential 129.7 H Blood Gas Actual Respiration Rate 16 Blood Gas Low PEEP Setting 5.0 Blood Gas Modality VENT - AC Blood Gas Notified Time 06/10/2016 7:22:07 AM Blood Gas Notified Whom TM Blood Gas Respiration Rate 12.0 Blood Gas Specimen Source Blood arterial Blood Gas Temperature 37.0 Blood Gas Tidal Volume 650.0 FiO2 40.0 Oxyhemoglobin Percent 96.5 Total Hemoglobin 8.8 L Urine Bilirubin NEGATIVE Urine Clarity CLEAR Urine Color LT. YELLOW Urine Glucose NEGATIVE Urine Hemoglobin NEGATIVE Urine Ketones NEGATIVE Urine Leukocyte Esterase NEGATIVE Urine Nitrite NEGATIVE Urine Random Sodium < 13 L Urine Specific [place] 1.015 Urine Total Protein NEGATIVE Urine Urobilinogen 0.2 E.U./dL Urine pH 5.5 Glucose Level 140 # Medications Medications Current Medications Ondansetron HCl (Zofran Inj) 4 mg Q6H PRN IV NAUSEA AND/OR VOMITING; Start 06/09 at 04:30 Morphine Sulfate (morphine) 2 mg Q4H PRN IV PAIN LEVEL 7-10 Last administered on 06/09/16 21:31; Admin Dose 2 MG; Start 06/09/16 at 04:30 Lorazepam (Ativan) 1 mg Q2H PRN IV ANXIETY; Start 06/09/16 at 04:30 Lactulose 20 gm 20 gm Q8H PO Last administered on 06/10/16 05:06; Admin Dose 20 GM; Start 06/09/16 at 12:00 Pantoprazole 80 mg/Sodium Chloride 100 ml @ 10 mls/hr Q10H IV Last administered on 06/09/16 20:23; Admin Dose 10 MLS/HR; Start 06/09/16 at 10:14 Octreotide Acetate/Sodium Chloride (Sandostatin/NS) 50 ml @ 2.5 mls/hr Q20H IV Last administered on 06/10/16 07:51; Admin Dose 2.5 MLS/HR; Start 06/09/16 at 06:00 Dutasteride (Avodart) 0.5 mg AM PO ; Start 06/09/16 at 09:00 Finasteride (Proscar) 5 mg AM PO ; Start 06/09/16 at 09:00 Levothyroxine Sodium 50 mcg 50 mcg DAILY@06 PO Last administered on 06/10/16 05 :06; Admin Dose 50 MCG; Start 06/09/16 at 06:00 Norepinephrine 16 mg/Dextrose 500 ml @ 1.87 mls/hr TITRATE IV Last administered on 06/09/16 12:58; Admin Dose 1.87 MLS/HR; Start 06/09/16 at 10:00 Propofol 100 ml @ 3 mls/hr Q12H IV Last administered on 06/10/16 05:17; Admin Dose 29.034 MLS/HR; Start 06/09/16 at 06:30 Cefepime HCl 50 ml @ 100 mls/hr Q12 IVPB Last administered on 06/09/16 21:34; Admin Dose 100 MLS/HR; Start 06/09/16 at 12:00 Vancomycin HCl (Vancocin) 250 ml @ 125 mls/hr Q12H IVPB Last administered on 23:05; Admin Dose 125 MLS/HR; Start 06/09/16 at 23:00 IV Flush 10 ml 10 ml PRN PRN IV IV PROTOCOL; Start 06/09/16 at 17:00 Dextrose/Sodium Chloride 1,000 ml @ 125 mls/hr Q8H IV ; Start 06/10/16 at 09:30 ; Status UNV Magnesium Sulfate (Magnesium Sulfate 2 Gm/50 ml) 50 ml @ 25 mls/hr ONCE ONCE IVPB ; Start 06/10/16 at 09:30; Stop 06/10/16 at 11:29; Status UNV YOSELYN DIXON MD Jun 10, 2016 09:39
--- NOTE | 2016-06-10 09:45 | PN ---
DATE: 06/10/2016 FOLLOWUP NOTE SUBJECTIVE: Patient Sinan remains stable this morning, intubated and sedated on mechanical venti lation, currently hemodynamically stable. PHYSICAL EXAMINATION: VITAL SIGNS: Temperature 98, pulse 84, blood pressure 104/55, O2 saturation 96% on 40% FIO2. HEENT: Pupils are equal and reactive to light. CARDIAC EXAM: S1, S2. No added sounds or murmurs. CHEST: Diminished air entry bilaterally. ABDOMEN: Soft, nontender. No guarding or rebound. EXTREMITIES: No cyanosis, clubbing, edema. NEUROLOGIC: Unable to assess. The patient is intubated and sedated. LABORATORY: White count was 11.4, hemoglobin is 7.6, platelets 134. Chemistry: BUN 53, creatinine 1.49. Ammonia level was 183. INR 1.48. IMPRESSION AND PLAN: 1. Acute gastrointestinal bleed, status post emergency endoscopy, with variceal ligation. 2. History of possible cirrhosis. 3. Morbid obesity. 4. Probable aspiration pneumonia. 5. Hypoxemic respiratory failure. 6. Chronic obstructive pulmonary disease. 7. Probable underlying obstructive sleep apnea. Patient will require: 1. Correction of low hemoglobin, with transfusion of packed red blood cells. 2. Correction of metabolic acidosis per renal. 3. Continue mechanical ventilation. 4. Continue Protonix and GI recommendations. 5. DVT and GI prophylaxis. Dictated By: DENIZ WILLIS/RICK Conf#: [id number] DID#: [id number]
[2016-06-10] MEDS ORDERED: PANTOPRAZOLE IV 80 MG in SOD CHLORIDE 0.9% 100 ML IV SCH (10:00)
[2016-06-10] MEDS: VANCOMYCIN 1 GM in NS 250 ML IVPB SCH ×2 (11:13→23:27)
--- NOTE | 2016-06-10 13:49 | CONS ---
Date/Time of Note Date/Time of Note DATE: 06/10/16 TIME: 13:44 Assessment/Plan Assessment/Plan Additional Assessment/Plan Assessment/Plan: * Upper GI bleeding * Status post EGD: 1. Actively bleeding esophageal varix post-endoscopic variceal ligation with cessation of bleeding. 2. Large amounts of blood and clots in the stomach but no active bleeding or potential bleeding lesions present. The pylorus appears patent and duodenum with no lesions. * Cirrhosis of the liver, alcohol induced * Probable esophageal varices * Small amount of ascites * Mild coagulopathy * History of alcohol abuse * History of hypothyroidism * Further recommendation will depend on clinical findings * Patient seen in collaboration with Dr. Arce Consultation Date/Type/Reason Admit Date/Time Jun 09, 2016 at 04:01 Initial Consult Date 06/09/16 Type of Consultation: Gastroenterology 24 HR Interval Summary Free Text/Dictation 2 units in process Hemoglobin 6.5 Intubated and sedated Exam/Review of Systems Vital Signs Vitals Vital Signs Date Time Temp Pulse Resp B/P Pulse Ox O2 Delivery O2 Flow Rate FiO2 06/10/16 13:30 78 15 90/43 100 Mechanical Ventilator 06/10/16 12:00 98.4 06/10/16 10:51 40 06/09/16 05:45 2.0 Intake and Output 06/09/16 06/09/16 06/10/16 15:00 23:00 07:00 Intake Total 905 ml 3043.826 ml 1513.224 ml Output Total 60 ml 0 ml 1390 ml Balance 845 ml 3043.826 ml 123.224 ml Exam Constitutional: Sedated, well-nourished, and in no distress Psych: anxiety, nl mood/affect, no complaints Head: atraumatic, normocephalic Eyes: EOMI, PERRL, nl conjunctiva, nl lids, nl sclera ENMT: nl external ears & nose, nl lips & teeth, nl nasal mucosa & septum Neck: non-tender, supple Respiratory: Intubated Cardiovascular: nl pulses, regular rate and rhythm, No edema, No murmurs/extra sounds, No rub Gastrointestinal: ascites, bowel sounds, distended, nl liver, spleen, soft, tender (Mild diffuse), No hepatomegaly, No mass, No rebound or guarding, No splenomegaly Musculoskeletal: nl extremities to inspection, No swelling Extremities: normal pulses, No calf tenderness, No clubbing, No edema, No tenderness Skin: nl turgor, No rash or lesions Lymph: nl lymph nodes Results Result Diagram: 06/10/16 0430 06/10/16 0710 Results 24 hrs Laboratory Tests Test 06/09/16 14:00 06/09/16 14:50 06/10/16 00:33 06/10/16 04:30 Alanine Aminotransferase (ALT/SGPT) 100 H Albumin 2.4 L Albumin/Globulin Ratio 0.75 Alkaline Phosphatase 58 Anion Gap 16 # 16 15 13 Aspartate Amino Transf (AST/SGOT) 174 #H Basophils # 0.0 0.0 Basophils % 0.4 0.3 Blood Urea Nitrogen 41 H 44 H 51 H 53 H Calcium Level 7.6 L 7.5 L 7.1 L 6.5 L Carbon Dioxide Level 23 22 25 30 Chloride Level 107 108 106 107 Creatinine 1.69 H 1.63 H 1.60 H 1.49 H Direct Bilirubin 0.00 Eosinophils # 0.1 0.1 Eosinophils % 0.7 1.0 Globulin 3.20 Glucose Level 125 # 120 135 373 #H Hematocrit 19.5 L 19.8 L 22.5 L 20.1 L Hemoglobin 6.5 #*L 6.5 *L 7.4 L 6.6 *L Indirect Bilirubin 0.5 Lactic Acid Level 2.5 H Lymphocytes # 1.1 1.2 Lymphocytes % 9.3 L 10.1 L Mean Corpuscular Hemoglobin 26.6 #L 26.9 L Mean Corpuscular Hemoglobin Concent 33.3 # 32.8 Mean Corpuscular Volume 79.9 L 81.8 L Mean Platelet Volume 11.8 H 10.8 H Monocytes # 1.1 H 1.1 H Monocytes % 9.9 10.0 Neutrophils # 9.0 H 8.9 H Neutrophils % 79.0 H 78.1 H Nucleated Red Blood Cells # 0.0 0.0 Nucleated Red Blood Cells % 0.0 0.0 Platelet Count 134 #L 134 L Potassium Level 6.0 H 4.9 4.9 Red Blood Count 2.44 L 2.42 L Red Cell Distribution Width 16.3 H 16.4 H Sodium Level 140 140 141 145 H Thyroid Stimulating Hormone (TSH) 0.308 L Total Bilirubin 0.5 Total Protein 5.6 L White Blood Count 11.4 H 11.4 H Ammonia 183 H Magnesium Level 1.7 1.6 L Phosphorus Level 3.4 3.0 Activated Partial Thromboplast Time 32.3 INR International Normalized Ratio 1.48 Prothrombin Time 18.0 H Prothrombin Time Ratio 1.4 Test 06/10/16 07:00 06/10/16 07:10 Arterial Blood HCO3 25.3 Arterial Blood Base Excess 1.4 Arterial Blood Oxygen Saturation 97.4 Adelso Test ACCEPTAB Arterial Blood Gas Puncture Site Right Radial Arterial Blood Carboxyhemoglobin 0.2 Arterial Blood Date Drawn 06/10/2016 7:07:19 AM Arterial Blood Methemoglobin 0.7 Arterial Blood pCO2 (Temp correct) 37.0 Arterial Blood pH (Temp corrected) 7.453 H Arterial Blood pO2 (Temp corrected) 113.0 H Blood Gas A-a O2 Differential 129.7 H Blood Gas Actual Respiration Rate 16 Blood Gas Low PEEP Setting 5.0 Blood Gas Modality VENT - AC Blood Gas Notified Time 06/10/2016 7:22:07 AM Blood Gas Notified Whom TM Blood Gas Respiration Rate 12.0 Blood Gas Specimen Source Blood arterial Blood Gas Temperature 37.0 Blood Gas Tidal Volume 650.0 FiO2 40.0 Oxyhemoglobin Percent 96.5 Total Hemoglobin 8.8 L Urine Bilirubin NEGATIVE Urine Clarity CLEAR Urine Color LT. YELLOW Urine Glucose NEGATIVE Urine Hemoglobin NEGATIVE Urine Ketones NEGATIVE Urine Leukocyte Esterase NEGATIVE Urine Nitrite NEGATIVE Urine Random Sodium < 13 L Urine Specific [place] 1.015 Urine Total Protein NEGATIVE Urine Urobilinogen 0.2 E.U./dL Urine pH 5.5 Glucose Level 140 # Medications Medications Current Medications Ondansetron HCl (Zofran Inj) 4 mg Q6H PRN IV NAUSEA AND/OR VOMITING; Start 06/09 at 04:30 Morphine Sulfate (morphine) 2 mg Q4H PRN IV PAIN LEVEL 7-10 Last administered on 06/09/16 21:31; Admin Dose 2 MG; Start 06/09/16 at 04:30 Lorazepam (Ativan) 1 mg Q2H PRN IV ANXIETY; Start 06/09/16 at 04:30 Lactulose 20 gm 20 gm Q8H PO Last administered on 06/10/16 05:06; Admin Dose 20 GM; Start 06/09/16 at 12:00 Pantoprazole 80 mg/Sodium Chloride 100 ml @ 10 mls/hr Q10H IV Last administered on 06/10/16 08:00; Admin Dose 10 MLS/HR; Start 06/09/16 at 10:14 Octreotide Acetate/Sodium Chloride (Sandostatin/NS) 50 ml @ 2.5 mls/hr Q20H IV Last administered on 06/10/16 07:51; Admin Dose 2.5 MLS/HR; Start 06/09/16 at 06:00 Dutasteride (Avodart) 0.5 mg AM PO ; Start 06/09/16 at 09:00 Finasteride (Proscar) 5 mg AM PO ; Start 06/09/16 at 09:00 Levothyroxine Sodium 50 mcg 50 mcg DAILY@06 PO Last administered on 06/10/16 05 :06; Admin Dose 50 MCG; Start 06/09/16 at 06:00 Norepinephrine 16 mg/Dextrose 500 ml @ 1.87 mls/hr TITRATE IV Last administered on 06/09/16 12:58; Admin Dose 1.87 MLS/HR; Start 06/09/16 at 10:00 Propofol 100 ml @ 3 mls/hr Q12H IV Last administered on 06/10/16 13:10; Admin Dose 18 MLS/HR; Start 06/09/16 at 06:30 Cefepime HCl 50 ml @ 100 mls/hr Q12 IVPB Last administered on 06/10/16 09:31; Admin Dose 100 MLS/HR; Start 06/09/16 at 12:00 Vancomycin HCl (Vancocin) 250 ml @ 125 mls/hr Q12H IVPB Last administered on 11:13; Admin Dose 125 MLS/HR; Start 06/09/16 at 23:00 IV Flush 10 ml 10 ml PRN PRN IV IV PROTOCOL; Start 06/09/16 at 17:00 Dextrose/Sodium Chloride (D5-1/2ns) 1,000 ml @ 125 mls/hr Q8H IV Last administered on 06/10/16 09:32; Admin Dose 125 MLS/HR; Start 06/10/16 at 09:30 KODY SHELDON Jun 10, 2016 13:49 KODY SHELDON Jun 10, 2016 13:49 KODY SHELDON Jun 10, 2016 13:49
[2016-06-10 14:04] LABS: HAAIG REFLEX REFLEX FILED
[2016-06-10 14:07] LABS: HEMATOCRIT 24.9 % (42.0-52.0); HEMOGLOBIN 8.3 g/dl (14.0-18.0)
[2016-06-10 14:29] LABS: ADD UMIC NO; URINE BILIRUBIN (Dip) NEGATIVE (NEGATIVE); URINE BLOOD (Dip) NEGATIVE (NEGATIVE); URINE COLOR LT. YELLOW (YELLOW); URINE GLUCOSE (Dip) NEGATIVE (NEGATIVE); URINE KETONES (Dip) NEGATIVE (NEGATIVE); URINE LEUKOCYTE ESTERASE (Dip) NEGATIVE (NEGATIVE); URINE NITRITE (Dip) NEGATIVE (NEGATIVE); URINE TOTAL PROTEIN (Dip) NEGATIVE (NEGATIVE); URINE UROBILINOGEN (Dip) 0.2 E.U./dL (0.1-1.0)
--- NOTE | 2016-06-10 14:46 | PN ---
Date/Time of Note Date/Time of Note DATE: 06/10/16 TIME: 14:40 Assessment/Plan VTE Prophylaxis VTE Prophylaxis Intervention: SCD's Assessment/Plan Chief Complaint/Hosp Course 1. Upper GI Bleed 2/2 Varices s/p Banding - Protonix and Octreotide gtt -GI on case 2. Severe Anemia 2/2 #1 - transfuse today 3. Decompensated Alcoholic Liver Cirrhosis - Abd US shows no Ascites -check Hep panel, Ammonia elevated - pt last drink a year ago. Encouraged continued abstinence 4. Hypotension: 2/2 GI Bleed. Improved - cont blood transfusion and IVF - pressors as needed 5. Low TSH -check T4 to eval for sick euthyroid PPx-SCDs Problems: Subjective 24 Hr Interval Summary Subjective hx not possible: pt non-verbal Exam/Review of Systems Vital Signs Vitals Vital Signs Date Time Temp Pulse Resp B/P Pulse Ox O2 Delivery O2 Flow Rate FiO2 06/10/16 14:00 80 15 93/43 100 Mechanical Ventilator 06/10/16 12:45 40 06/10/16 12:00 98.4 06/09/16 05:45 2.0 Intake and Output 06/09/16 06/09/16 06/10/16 15:00 23:00 07:00 Intake Total 905 ml 3043.826 ml 1513.224 ml Output Total 60 ml 0 ml 1390 ml Balance 845 ml 3043.826 ml 123.224 ml Exam ENMT: intubated Respiratory: clear to auscultation Cardiovascular: regular rate and rhythm Gastrointestinal: soft, No distended Musculoskeletal: nl extremities to inspection Results Result Diagram: 06/10/16 1358 06/10/16 0710 Results 24 hrs Laboratory Tests Test 06/09/16 14:50 06/10/16 00:33 06/10/16 04:30 06/10/16 07:00 Anion Gap 16 15 13 Basophils # 0.0 Basophils % 0.3 Blood Urea Nitrogen 44 H 51 H 53 H Calcium Level 7.5 L 7.1 L 6.5 L Carbon Dioxide Level 22 25 30 Chloride Level 108 106 107 Creatinine 1.63 H 1.60 H 1.49 H Eosinophils # 0.1 Eosinophils % 1.0 Glucose Level 120 135 373 #H Hematocrit 19.8 L 22.5 L 20.1 L Hemoglobin 6.5 *L 7.4 L 6.6 *L Lymphocytes # 1.2 Lymphocytes % 10.1 L Mean Corpuscular Hemoglobin 26.9 L Mean Corpuscular Hemoglobin Concent 32.8 Mean Corpuscular Volume 81.8 L Mean Platelet Volume 10.8 H Monocytes # 1.1 H Monocytes % 10.0 Neutrophils # 8.9 H Neutrophils % 78.1 H Nucleated Red Blood Cells # 0.0 Nucleated Red Blood Cells % 0.0 Platelet Count 134 L Potassium Level 6.0 H 4.9 4.9 Red Blood Count 2.42 L Red Cell Distribution Width 16.4 H Sodium Level 140 141 145 H White Blood Count 11.4 H Ammonia 183 H Magnesium Level 1.7 1.6 L Phosphorus Level 3.4 3.0 Activated Partial Thromboplast Time 32.3 INR International Normalized Ratio 1.48 Prothrombin Time 18.0 H Prothrombin Time Ratio 1.4 Arterial Blood HCO3 25.3 Arterial Blood Base Excess 1.4 Arterial Blood Oxygen Saturation 97.4 Adelso Test ACCEPTAB Arterial Blood Gas Puncture Site Right Radial Arterial Blood Carboxyhemoglobin 0.2 Arterial Blood Date Drawn 06/10/2016 7:07:19 AM Arterial Blood Methemoglobin 0.7 Arterial Blood pCO2 (Temp correct) 37.0 Arterial Blood pH (Temp corrected) 7.453 H Arterial Blood pO2 (Temp corrected) 113.0 H Blood Gas A-a O2 Differential 129.7 H Blood Gas Actual Respiration Rate 16 Blood Gas Low PEEP Setting 5.0 Blood Gas Modality VENT - AC Blood Gas Notified Time 06/10/2016 7:22:07 AM Blood Gas Notified Whom TM Blood Gas Respiration Rate 12.0 Blood Gas Specimen Source Blood arterial Blood Gas Temperature 37.0 Blood Gas Tidal Volume 650.0 FiO2 40.0 Oxyhemoglobin Percent 96.5 Total Hemoglobin 8.8 L Urine Bilirubin NEGATIVE Urine Clarity CLEAR Urine Color LT. YELLOW Urine Glucose NEGATIVE Urine Hemoglobin NEGATIVE Urine Ketones NEGATIVE Urine Leukocyte Esterase NEGATIVE Urine Nitrite NEGATIVE Urine Random Sodium < 13 L Urine Specific [place] 1.015 Urine Total Protein NEGATIVE Urine Urobilinogen 0.2 E.U./dL Urine pH 5.5 Test 06/10/16 07:10 06/10/16 10:30 06/10/16 13:58 Glucose Level 140 # Urine Bilirubin NEGATIVE Urine Clarity CLEAR Urine Color LT. YELLOW Urine Glucose NEGATIVE Urine Hemoglobin NEGATIVE Urine Ketones NEGATIVE Urine Leukocyte Esterase NEGATIVE Urine Nitrite NEGATIVE Urine Specific [place] 1.020 Urine Total Protein NEGATIVE Urine Urobilinogen 0.2 E.U./dL Urine pH 6.0 Hematocrit 24.9 #L Hemoglobin 8.3 #L Hepatitis B Core Total Antibody Pending Hepatitis B Surface Antigen Pending Hepatitis C Antibody Pending Medications Medications Current Medications Ondansetron HCl (Zofran Inj) 4 mg Q6H PRN IV NAUSEA AND/OR VOMITING; Start 06/09 at 04:30 Morphine Sulfate (morphine) 2 mg Q4H PRN IV PAIN LEVEL 7-10 Last administered on 06/09/16 21:31; Admin Dose 2 MG; Start 06/09/16 at 04:30 Lorazepam (Ativan) 1 mg Q2H PRN IV ANXIETY; Start 06/09/16 at 04:30 Lactulose 20 gm 20 gm Q8H PO Last administered on 06/10/16 05:06; Admin Dose 20 GM; Start 06/09/16 at 12:00 Pantoprazole 80 mg/Sodium Chloride 100 ml @ 10 mls/hr Q10H IV Last administered on 06/10/16 08:00; Admin Dose 10 MLS/HR; Start 06/09/16 at 10:14 Octreotide Acetate/Sodium Chloride (Sandostatin/NS) 50 ml @ 2.5 mls/hr Q20H IV Last administered on 06/10/16 07:51; Admin Dose 2.5 MLS/HR; Start 06/09/16 at 06:00 Dutasteride (Avodart) 0.5 mg AM PO ; Start 06/09/16 at 09:00 Finasteride (Proscar) 5 mg AM PO ; Start 06/09/16 at 09:00 Levothyroxine Sodium 50 mcg 50 mcg DAILY@06 PO Last administered on 06/10/16 05 :06; Admin Dose 50 MCG; Start 06/09/16 at 06:00 Norepinephrine 16 mg/Dextrose 500 ml @ 1.87 mls/hr TITRATE IV Last administered on 06/09/16 12:58; Admin Dose 1.87 MLS/HR; Start 06/09/16 at 10:00 Propofol 100 ml @ 3 mls/hr Q12H IV Last administered on 06/10/16 13:10; Admin Dose 18 MLS/HR; Start 06/09/16 at 06:30 Cefepime HCl 50 ml @ 100 mls/hr Q12 IVPB Last administered on 06/10/16 09:31; Admin Dose 100 MLS/HR; Start 06/09/16 at 12:00 Vancomycin HCl (Vancocin) 250 ml @ 125 mls/hr Q12H IVPB Last administered on 11:13; Admin Dose 125 MLS/HR; Start 06/09/16 at 23:00 IV Flush 10 ml 10 ml PRN PRN IV IV PROTOCOL; Start 06/09/16 at 17:00 Dextrose/Sodium Chloride (D5-1/2ns) 1,000 ml @ 125 mls/hr Q8H IV Last administered on 06/10/16 09:32; Admin Dose 125 MLS/HR; Start 06/10/16 at 09:30 DIOMEDES MOULTON Jun 10, 2016 14:45
[2016-06-10 15:14] LABS: HEPATITIS B CORE ANTIBODY REACTIVE (NEGATIVE)
[2016-06-10 16:30] LABS: PROTEIN/CREAT RATIO 0.1 RATIO
[2016-06-10] MEDS ORDERED: SOD CHLORIDE 0.9% 100 ML ONE (17:57)
[2016-06-11] VITALS (58 sets, daily range): BP systolic 88–167; BP diastolic 42–130; PULSE 75–202; RESP 17–29
[2016-06-11 01:00] LABS: HEMATOCRIT 31.7 % (42.0-52.0); HEMOGLOBIN 9.9 g/dl (14.0-18.0)
[2016-06-11] MEDS: PANTOPRAZOLE IV 80 MG in SOD CHLORIDE 0.9% 100 ML IV SCH ×2 (02:14→03:41)
[2016-06-11] MEDS: OCTREOTIDE 500 MCG in SOD CHLORIDE 0.9% 49 ML IV SCH ×2 (03:42→05:43)
[2016-06-11] MEDS: LACTULOSE 30ML CUP PO SCH ×3 (04:00→20:29)
[2016-06-11] MEDS: PROPOFOL 100 ML IV SCH ×3 (04:20→21:09)
[2016-06-11 04:39] LABS: ADD SCAN DIFF NO
[2016-06-11 04:46] LABS: BASOPHIL # 0.1 10^3/ul (0.0-0.1); EOSINOPHILS # 0.4 10^3/ul (0.0-0.5); EOSINOPHILS % 5.1 % (0.0-7.0); HEMATOCRIT 28.3 % (42.0-52.0); HEMOGLOBIN 9.2 g/dl (14.0-18.0); LYMPHOCYTES # 0.8 10^3/ul (0.8-2.9); LYMPHOCYTES % 9.3 % (15.0-51.0); MEAN CORPUSCULAR HEMOGLOBIN 27.3 pg (29.0-33.0); MEAN CORPUSCULAR HGB CONC 32.5 g/dl (32.0-37.0); MEAN PLATELET VOLUME 11.3 fl (7.4-10.4); MONOCYTE # 0.8 10^3/ul (0.3-0.9); MONOCYTES % 9.9 % (0.0-11.0); NEUTROPHILS % 73.5 % (39.0-77.0); PLATELET COUNT 112 10^3/UL (140-415); RED BLOOD COUNT 3.37 10^6/ul (4.70-6.10); RED CELL DISTRIBUTION WIDTH 17.3 % (11.5-14.5); WHITE BLOOD COUNT 8.2 10^3/ul (4.8-10.8)
[2016-06-11 05:07] LABS: ALBUMIN 2.4 g/dl (3.3-4.9); POTASSIUM 4.2 mmol/L (3.5-5.1)
[2016-06-11 05:09] LABS: BILIRUBIN,INDIRECT 1.2 mg/dl (0-1.1); BILIRUBIN,TOTAL 1.2 mg/dl (0.2-1.3); CREATININE 1.22 mg/dl (0.61-1.24)
[2016-06-11 05:10] LABS: ALBUMIN/GLOBULIN RATIO 0.66; CALCIUM 7.7 mg/dl (8.4-10.2); MAGNESIUM 2.3 mg/dl (1.7-2.5); PHOSPHORUS 3.1 mg/dl (2.5-4.9)
[2016-06-11] MEDS: LEVOTHYROXINE 50 MCG TAB PO SCH (06:00)
[2016-06-11 06:04] LABS: PROTEIN, TOTAL 4.8 g/dL (6.1-8.1)
[2016-06-11] MEDS: DEXTROSE 5%-0.45% NACL 1,000 ML IV SCH (06:24)
--- NOTE | 2016-06-11 08:24 | CONS ---
Date/Time of Note Date/Time of Note DATE: 06/11/16 TIME: 08:18 Assessment/Plan Assessment/Plan Chief Complaint/Hosp Course 1. Acute on chronic renal failure . His renal function is improved . He has increased echogenicity of renal cortex , consistent with CKD . Replace Magnesium and change IV fluids . 2. GI bleeding , from esophageal varices 3. hepatic encephalopathy , due to cirrhosis and Gi bleeding 4. respiratory failure on ventilator 5. hypernatremia , will change IV to D5W and monitor serum sodium .labs ordered for tomorrow . I will sign off at this point and see again on request . Problems: Consultation Date/Type/Reason Admit Date/Time Jun 09, 2016 at 04:01 Initial Consult Date 06/09/16 Type of Consultation: renal 24 HR Interval Summary Free Text/Dictation He is in the ICU on a ventilator , unresponsive . Subjective hx not possible: pt non-verbal Exam/Review of Systems Vital Signs Vitals Vital Signs Date Time Temp Pulse Resp B/P Pulse Ox O2 Delivery O2 Flow Rate FiO2 06/11/16 07:00 89 21 122/65 99 Mechanical Ventilator 06/11/16 05:50 35 06/11/16 03:45 99.4 06/09/16 05:45 2.0 Intake and Output 06/10/16 06/10/16 06/11/16 15:00 23:00 07:00 Intake Total 1233.5 ml 1873.0 ml 1338.5 ml Output Total 575 ml 900 ml 970 ml Balance 658.5 ml 973.0 ml 368.5 ml Exam Constitutional: non-verbal ENMT: intubated Respiratory: wheezing Cardiovascular: regular rate and rhythm Gastrointestinal: soft Extremities: edema Results Result Diagram: 06/11/16 0405 06/11/16 0405 Results 24 hrs Laboratory Tests Test 06/10/16 10:30 06/10/16 10:47 06/10/16 13:58 06/10/16 18:05 Urine Bilirubin NEGATIVE Urine Clarity CLEAR Urine Color LT. YELLOW Urine Glucose NEGATIVE Urine Hemoglobin NEGATIVE Urine Ketones NEGATIVE Urine Leukocyte Esterase NEGATIVE Urine Nitrite NEGATIVE Urine Protein/Creatinine Ratio 0.10 Urine Random Creatinine 74.08 Urine Specific [place] 1.020 Urine Total Protein 8.0 Urine Urobilinogen 0.2 E.U./dL Urine pH 6.0 Albumin (PEP) Pending [id number] Pending [id number] Pending Beta Globulins Pending Gamma Globulins Pending Protein Electrophoresis Interpret Pending Total Protein (PEP) 4.8 L Hematocrit 24.9 #L 28.0 L Hemoglobin 8.3 #L 9.0 L Hepatitis B Core Total Antibody REACTIVE H Hepatitis B Surface Antigen NEGATIVE Hepatitis C Antibody NEGATIVE Test 06/10/16 22:20 06/11/16 00:20 06/11/16 04:05 Vancomycin Level Trough 17.5 Hematocrit 31.7 L 28.3 L Hemoglobin 9.9 L 9.2 L Alanine Aminotransferase (ALT/SGPT) 195 H Albumin 2.4 L Albumin/Globulin Ratio 0.66 Alkaline Phosphatase 72 Anion Gap 15 Aspartate Amino Transf (AST/SGOT) 304 #H Basophils # 0.1 Basophils % 1.0 Blood Urea Nitrogen 46 H Calcium Level 7.7 L Carbon Dioxide Level 25 Chloride Level 112 H Creatinine 1.22 Direct Bilirubin 0.00 Eosinophils # 0.4 Eosinophils % 5.1 Free Thyroxine 1.57 Globulin 3.60 H Glucose Level 143 Indirect Bilirubin 1.2 H Lymphocytes # 0.8 Lymphocytes % 9.3 L Magnesium Level 2.3 Mean Corpuscular Hemoglobin 27.3 L Mean Corpuscular Hemoglobin Concent 32.5 Mean Corpuscular Volume 84.0 Mean Platelet Volume 11.3 H Monocytes # 0.8 Monocytes % 9.9 Neutrophils # 6.0 Neutrophils % 73.5 Nucleated Red Blood Cells # 0.0 Nucleated Red Blood Cells % 0.0 Phosphorus Level 3.1 Platelet Count 112 L Potassium Level 4.2 Red Blood Count 3.37 #L Red Cell Distribution Width 17.3 H Sodium Level 148 H Total Bilirubin 1.2 Total Protein 6.0 L White Blood Count 8.2 # Medications Medications Current Medications Ondansetron HCl (Zofran Inj) 4 mg Q6H PRN IV NAUSEA AND/OR VOMITING; Start 06/09 at 04:30 Morphine Sulfate (morphine) 2 mg Q4H PRN IV PAIN LEVEL 7-10 Last administered on 06/09/16 21:31; Admin Dose 2 MG; Start 06/09/16 at 04:30 Lorazepam (Ativan) 1 mg Q2H PRN IV ANXIETY; Start 06/09/16 at 04:30 Lactulose 20 gm 20 gm Q8H PO Last administered on 06/10/16 21:17; Admin Dose 20 GM; Start 06/09/16 at 12:00 Pantoprazole 80 mg/Sodium Chloride 100 ml @ 10 mls/hr Q10H IV Last administered on 06/11/16 03:41; Admin Dose 10 MLS/HR; Start 06/09/16 at 10:14 Octreotide Acetate/Sodium Chloride (Sandostatin/NS) 50 ml @ 2.5 mls/hr Q20H IV Last administered on 06/11/16 05:43; Admin Dose 2.5 MLS/HR; Start 06/09/16 at 06:00 Dutasteride (Avodart) 0.5 mg AM PO ; Start 06/09/16 at 09:00 Finasteride (Proscar) 5 mg AM PO ; Start 06/09/16 at 09:00 Levothyroxine Sodium 50 mcg 50 mcg DAILY@06 PO Last administered on 06/10/16 05 :06; Admin Dose 50 MCG; Start 06/09/16 at 06:00 Norepinephrine 16 mg/Dextrose 500 ml @ 1.87 mls/hr TITRATE IV Last administered on 06/09/16 12:58; Admin Dose 1.87 MLS/HR; Start 06/09/16 at 10:00 Propofol 100 ml @ 3 mls/hr Q12H IV Last administered on 06/11/16 04:20; Admin Dose 18 MLS/HR; Start 06/09/16 at 06:30 Cefepime HCl 50 ml @ 100 mls/hr Q12 IVPB Last administered on 06/10/16 21:17; Admin Dose 100 MLS/HR; Start 06/09/16 at 12:00 Vancomycin HCl (Vancocin) 250 ml @ 125 mls/hr Q12H IVPB Last administered on 23:27; Admin Dose 125 MLS/HR; Start 06/09/16 at 23:00 IV Flush 10 ml 10 ml PRN PRN IV IV PROTOCOL; Start 06/09/16 at 17:00 Dextrose/Sodium Chloride (D5-1/2ns) 1,000 ml @ 125 mls/hr Q8H IV Last administered on 06/11/16 06:24; Admin Dose 125 MLS/HR; Start 06/10/16 at 09:30 Insulin Aspart (Novolog Insulin Pen) NOVOLOG *MILD* ALGORITHM Q6 SC ; Start 06/11 at 12:00; Status UNV Diagnostic Test (Pha) 1 ea 1 ea 02 XX ; Start 06/12/16 at 02:00; Status UNV Dextrose (D5W) 1,000 ml @ 100 mls/hr Q10H IV ; Start 06/11/16 at 08:30; Status UNV YOSELYN DIXON MD Jun 11, 2016 08:24
[2016-06-11] MEDS ORDERED: DEXTROSE 50% 50 ML SYRINGE IV PRN ×2 (08:30)
[2016-06-11] MEDS ORDERED: GLUCAGON 1 MG INJ IM PRN (08:30)
[2016-06-11] MEDS ORDERED: GLUCOSE GEL 15 GRAM TUBE BUCCAL PRN (08:30)
[2016-06-11] MEDS ORDERED: GLUCOSE GEL 15 GRAM TUBE PO PRN ×2 (08:30)
--- NOTE | 2016-06-11 08:56 | RADRPT ---
PROCEDURE: XR Chest. CLINICAL INDICATION: Pneumonia, CHF TECHNIQUE: A single AP view of the chest was obtained. COMPARISON: Chest x-ray dated 06/10/2016 FINDINGS: The endotracheal tube tip is approximately 3.5 cm above the sandi. The tip of the enteric tube ex tends below the left diaphragm. There is a left upper extremity PICC line with tip near the cavoatri al junction. Lung volumes are low with compressive changes, vascular crowding and basilar atelectasis. There prom inence of the interstitial markings. There is blunting left costophrenic angle. No pneumothorax is seen. The cardiomediastinal silhouette is mildly enlarged. Calcifications are seen within the aort ic arch. The osseous structures are unremarkable. IMPRESSION: 1. Low lung volumes with findings suggesting interstitial edema, mildly increased when compared to the prior examination. 2. Left basilar atelectasis with possible small left pleural effusion. 3. Mild cardiomegaly and aortic atherosclerosis. 4. Tubes and lines, as described above. RPTAT: HH .Lesley Flores MD, MD Date Time Electronically viewed and signed by .Lesley Flores MD, on 06/11/2016 08:56 .G/
[2016-06-11] MEDS: DUTASTERIDE 0.5 MG CAP PO SCH (09:00)
[2016-06-11] MEDS: FINASTERIDE 5 MG TAB PO SCH (09:00)
[2016-06-11] MEDS: DEXTROSE 5% 1,000 ML IV SCH ×2 (09:46→18:30)
[2016-06-11] MEDS: CEFEPIME 1GM/50 ML (PMX) 50 ML IVPB SCH ×2 (09:46→20:29)
--- NOTE | 2016-06-11 10:26 | PN ---
DATE: 06/11/2016 CRITICAL CARE FOLLOWUP NOTE SUBJECTIVE: The patient remains intubated, sedated, on mechanical ventilation. He appears somewhat encephalopathic, but hemodynamically currently stable, with a stable hemoglobin. PHYSICAL EXAMINATION: VITAL SIGNS: Temperature 98, pulse 83, blood pressure 112/65, O2 saturation 96% on 35% FIO2, orally intubated. HEENT: Dry mucous membranes. Pupils are equal and reactive to light. CARDIAC EXAM: S1, S2. No added sounds or murmurs. CHEST: Diminished air entry bilaterally. ABDOMEN: Soft, nontender. No guarding or rebound. EXTREMITIES: No cyanosis, clubbing or edema. NEUROLOGIC: Grossly intact. No focal deficits. LABORATORY DATA: White count 8.2, hemoglobin 9.2, platelets of 112. BUN 46, creatinine 1.22. IMPRESSION AND PLAN: 1. Acute gastrointestinal bleed. 2. Encephalopathy, toxic metabolic. 3. Underlying cirrhosis, with hepatic dysfunction. 4. Respiratory failure secondary to above. 5. Acute on chronic renal failure, slowly improving. PLAN: 1. Continue renal recommendations. 2. Continue mechanical ventilation with CPAP trial. 3. Consider increasing lactulose and rechecking ammonia level. 4. DVT and GI prophylaxis. Dictated By: DENIZ WILLIS/RICK Conf#: [id number] DID#: [id number]
[2016-06-11 11:53] LABS: HEMATOCRIT 28.9 % (42.0-52.0); HEMOGLOBIN 9.2 g/dl (14.0-18.0)
[2016-06-11] MEDS ORDERED: VANCOMYCIN 750 MG in SOD CHLORIDE 0.9% 150 ML IVPB SCH (12:00)
[2016-06-11] MEDS: INSULIN ASPART [NOVOLOG] 3 ML PEN SC SCH ×3 (12:11→23:36)
--- NOTE | 2016-06-11 13:25 | CONS ---
Date/Time of Note Date/Time of Note DATE: 06/11/16 TIME: 13:24 Assessment/Plan Assessment/Plan Additional Assessment/Plan Assessment: * Upper GI bleeding * Likely variceal * Status post EGD: 1. Actively bleeding esophageal varix post-endoscopic variceal ligation with cessation of bleeding. 2. Large amounts of blood and clots in the stomach but no active bleeding or potential bleeding lesions present. The pylorus appears patent and duodenum with no lesions. * Cirrhosis of the liver, alcohol induced * Small amount of ascites * Mild coagulopathy * Encephalopathy, continue rifaximin and lactulose * Paracentesis as needed * History of alcohol abuse * Dietary consult to determine appropriate rate and type of NG tube feed * History of hypothyroidism * Further recommendation will depend on clinical findings * Patient seen in collaboration with Dr. Arce Consultation Date/Type/Reason Admit Date/Time Jun 09, 2016 at 04:01 Initial Consult Date 06/09/16 Type of Consultation: GI 24 HR Interval Summary Free Text/Dictation DC octreotide and Protonix drips secondary to edema Nutrition consult to determine appropriate rate and type of NG tube feed Hemoglobin stable Exam/Review of Systems Vital Signs Vitals Vital Signs Date Time Temp Pulse Resp B/P Pulse Ox O2 Delivery O2 Flow Rate FiO2 06/11/16 12:26 90 21 97 35 06/11/16 10:00 142/77 Mechanical Ventilator 06/11/16 08:00 98.7 06/09/16 05:45 2.0 Intake and Output 06/10/16 06/10/16 06/11/16 15:00 23:00 07:00 Intake Total 1233.5 ml 1873.0 ml 1494.0 ml Output Total 575 ml 900 ml 970 ml Balance 658.5 ml 973.0 ml 524.0 ml Exam Constitutional: Sedated, well-nourished, and in no distress Psych: anxiety, nl mood/affect, no complaints Head: atraumatic, normocephalic Eyes: EOMI, PERRL, nl conjunctiva, nl lids, nl sclera ENMT: nl external ears & nose, nl lips & teeth, nl nasal mucosa & septum Neck: non-tender, supple Respiratory: Intubated Cardiovascular: nl pulses, regular rate and rhythm, No edema, No murmurs/extra sounds, No rub Gastrointestinal: ascites, bowel sounds, distended, nl liver, spleen, soft, tender (Mild diffuse), No hepatomegaly, No mass, No rebound or guarding, No splenomegaly Musculoskeletal: nl extremities to inspection, No swelling Extremities: normal pulses, No calf tenderness, No clubbing, No edema, No tenderness Skin: nl turgor, No rash or lesions Lymph: nl lymph nodes Results Result Diagram: 06/11/16 1140 06/11/16 0405 Results 24 hrs Laboratory Tests Test 06/10/16 13:58 06/10/16 18:05 06/10/16 22:20 06/11/16 00:20 Hematocrit 24.9 #L 28.0 L 31.7 L Hemoglobin 8.3 #L 9.0 L 9.9 L Hepatitis B Core Total Antibody REACTIVE H Hepatitis B Surface Antigen NEGATIVE Hepatitis C Antibody NEGATIVE Vancomycin Level Trough 17.5 Test 06/11/16 04:05 06/11/16 11:40 06/11/16 12:05 Alanine Aminotransferase (ALT/SGPT) 195 H Albumin 2.4 L Albumin/Globulin Ratio 0.66 Alkaline Phosphatase 72 Anion Gap 15 Aspartate Amino Transf (AST/SGOT) 304 #H Basophils # 0.1 Basophils % 1.0 Blood Urea Nitrogen 46 H Calcium Level 7.7 L Carbon Dioxide Level 25 Chloride Level 112 H Creatinine 1.22 Direct Bilirubin 0.00 Eosinophils # 0.4 Eosinophils % 5.1 Free Thyroxine 1.57 Globulin 3.60 H Glucose Level 143 Hematocrit 28.3 L 28.9 L Hemoglobin 9.2 L 9.2 L Indirect Bilirubin 1.2 H Lymphocytes # 0.8 Lymphocytes % 9.3 L Magnesium Level 2.3 Mean Corpuscular Hemoglobin 27.3 L Mean Corpuscular Hemoglobin Concent 32.5 Mean Corpuscular Volume 84.0 Mean Platelet Volume 11.3 H Monocytes # 0.8 Monocytes % 9.9 Neutrophils # 6.0 Neutrophils % 73.5 Nucleated Red Blood Cells # 0.0 Nucleated Red Blood Cells % 0.0 Phosphorus Level 3.1 Platelet Count 112 L Potassium Level 4.2 Red Blood Count 3.37 #L Red Cell Distribution Width 17.3 H Sodium Level 148 H Total Bilirubin 1.2 Total Protein 6.0 L White Blood Count 8.2 # Ammonia 58 #H Bedside Glucose 151 Medications Medications Current Medications Ondansetron HCl (Zofran Inj) 4 mg Q6H PRN IV NAUSEA AND/OR VOMITING; Start 06/09 at 04:30 Morphine Sulfate (morphine) 2 mg Q4H PRN IV PAIN LEVEL 7-10 Last administered on 06/09/16 21:31; Admin Dose 2 MG; Start 06/09/16 at 04:30 Lorazepam (Ativan) 1 mg Q2H PRN IV ANXIETY; Start 06/09/16 at 04:30 Lactulose 20 gm 20 gm Q8H PO Last administered on 06/10/16 21:17; Admin Dose 20 GM; Start 06/09/16 at 12:00 Pantoprazole 80 mg/Sodium Chloride 100 ml @ 10 mls/hr Q10H IV Last administered on 06/11/16 03:41; Admin Dose 10 MLS/HR; Start 06/09/16 at 10:14 Octreotide Acetate/Sodium Chloride (Sandostatin/NS) 50 ml @ 2.5 mls/hr Q20H IV Last administered on 06/11/16 05:43; Admin Dose 2.5 MLS/HR; Start 06/09/16 at 06:00 Dutasteride (Avodart) 0.5 mg AM PO ; Start 06/09/16 at 09:00 Finasteride (Proscar) 5 mg AM PO ; Start 06/09/16 at 09:00 Levothyroxine Sodium 50 mcg 50 mcg DAILY@06 PO Last administered on 06/10/16 05 :06; Admin Dose 50 MCG; Start 06/09/16 at 06:00 Norepinephrine 16 mg/Dextrose 500 ml @ 1.87 mls/hr TITRATE IV Last administered on 06/09/16 12:58; Admin Dose 1.87 MLS/HR; Start 06/09/16 at 10:00 Propofol 100 ml @ 3 mls/hr Q12H IV Last administered on 06/11/16 12:08; Admin Dose 6 MLS/HR; Start 06/09/16 at 06:30 Cefepime HCl (Maxipime 1gm/50 ml (Pmx)) 50 ml @ 100 mls/hr Q12 IVPB Last administered on 06/11/16 09:46; Admin Dose 100 MLS/HR; Start 06/09/16 at 12:00 IV Flush (NS 10 ml) 10 ml PRN PRN IV IV PROTOCOL; Start 06/09/16 at 17:00 Insulin Aspart (Novolog Insulin Pen) NOVOLOG *MILD* ALGORITHM Q6 SC Last administered on 06/11/16 12:11; Admin Dose 1 UNIT; Start 06/11/16 at 12:00 Diagnostic Test (Pha) 1 ea 1 ea 02 XX ; Start 06/12/16 at 02:00 Dextrose (D5W) 1,000 ml @ 100 mls/hr Q10H IV Last administered on 06/11/16 09: 46; Admin Dose 100 MLS/HR; Start 06/11/16 at 08:30 Miscellaneous Information 1 ea NOTE XX ; Start 06/11/16 at 08:30 Glucose (Glutose) 15 gm Q15M PRN PO DECREASED GLUCOSE; Start 06/11/16 at 08:30 Glucose (Glutose) 22.5 gm Q15M PRN PO DECREASED GLUCOSE; Start 06/11/16 at 08:30 Dextrose (D50w Syringe) 25 ml Q15M PRN IV DECREASED GLUCOSE; Start 06/11/16 at 08:30 Dextrose (D50w Syringe) 50 ml Q15M PRN IV DECREASED GLUCOSE; Start 06/11/16 at 08:30 Glucagon (Glucagen) 1 mg Q15M PRN IM DECREASED GLUCOSE; Start 06/11/16 at 08:30 Glucose 15 gm 15 gm Q15M PRN BUCCAL DECREASED GLUCOSE; Start 06/11/16 at 08:30 Vancomycin HCl/ Sodium Chloride (Vancocin/NS) 150 ml @ 75 mls/hr Q12H IVPB Last administered on 06/11/16 12:07; Admin Dose 75 MLS/HR; Start 06/11/16 at 12: 00 KODY SHELDON Jun 11, 2016 13:25
--- NOTE | 2016-06-11 13:50 | PN ---
Date/Time of Note Date/Time of Note DATE: 06/11/16 TIME: 13:44 Assessment/Plan VTE Prophylaxis VTE Prophylaxis Intervention: SCD's Assessment/Plan Chief Complaint/Hosp Course 1. Upper GI Bleed 2/2 Varices s/p Banding -stable - Protonix and Octreotide gtt -GI on case 2. Severe Anemia 2/2 #1-stable 3. Decompensated Alcoholic Liver Cirrhosis - Abd US shows no Ascites -Hep panel shows Hx of Exposure to Hep B but no active infection, Ammonia improved today - pt last drink a year ago. Encouraged continued abstinence 4. Hypotension: 2/2 GI Bleed. Improved - cont blood transfusion and IVF - pressors now off, DC Vanco as there is no e/o infection 5. Low TSH -check T4 to eval for sick euthyroid 6. Resp Failure -weaning trials today PPx-SCDs Problems: Subjective 24 Hr Interval Summary Subjective hx not possible: pt non-verbal Exam/Review of Systems Vital Signs Vitals Vital Signs Date Time Temp Pulse Resp B/P Pulse Ox O2 Delivery O2 Flow Rate FiO2 06/11/16 13:00 89 19 132/63 98 Mechanical Ventilator 06/11/16 12:26 35 06/11/16 12:00 99.1 06/09/16 05:45 2.0 Intake and Output 06/10/16 06/10/16 06/11/16 15:00 23:00 07:00 Intake Total 1233.5 ml 1873.0 ml 1494.0 ml Output Total 575 ml 900 ml 970 ml Balance 658.5 ml 973.0 ml 524.0 ml Exam ENMT: intubated Respiratory: clear to auscultation Cardiovascular: regular rate and rhythm Gastrointestinal: soft, No distended Musculoskeletal: nl extremities to inspection Results Result Diagram: 06/11/16 1140 06/11/16 0405 Results 24 hrs Laboratory Tests Test 06/10/16 13:58 06/10/16 18:05 06/10/16 22:20 06/11/16 00:20 Hematocrit 24.9 #L 28.0 L 31.7 L Hemoglobin 8.3 #L 9.0 L 9.9 L Hepatitis B Core Total Antibody REACTIVE H Hepatitis B Surface Antigen NEGATIVE Hepatitis C Antibody NEGATIVE Vancomycin Level Trough 17.5 Test 06/11/16 04:05 06/11/16 11:40 06/11/16 12:05 Alanine Aminotransferase (ALT/SGPT) 195 H Albumin 2.4 L Albumin/Globulin Ratio 0.66 Alkaline Phosphatase 72 Anion Gap 15 Aspartate Amino Transf (AST/SGOT) 304 #H Basophils # 0.1 Basophils % 1.0 Blood Urea Nitrogen 46 H Calcium Level 7.7 L Carbon Dioxide Level 25 Chloride Level 112 H Creatinine 1.22 Direct Bilirubin 0.00 Eosinophils # 0.4 Eosinophils % 5.1 Free Thyroxine 1.57 Globulin 3.60 H Glucose Level 143 Hematocrit 28.3 L 28.9 L Hemoglobin 9.2 L 9.2 L Indirect Bilirubin 1.2 H Lymphocytes # 0.8 Lymphocytes % 9.3 L Magnesium Level 2.3 Mean Corpuscular Hemoglobin 27.3 L Mean Corpuscular Hemoglobin Concent 32.5 Mean Corpuscular Volume 84.0 Mean Platelet Volume 11.3 H Monocytes # 0.8 Monocytes % 9.9 Neutrophils # 6.0 Neutrophils % 73.5 Nucleated Red Blood Cells # 0.0 Nucleated Red Blood Cells % 0.0 Phosphorus Level 3.1 Platelet Count 112 L Potassium Level 4.2 Red Blood Count 3.37 #L Red Cell Distribution Width 17.3 H Sodium Level 148 H Total Bilirubin 1.2 Total Protein 6.0 L White Blood Count 8.2 # Ammonia 58 #H Bedside Glucose 151 Medications Medications Current Medications Ondansetron HCl (Zofran Inj) 4 mg Q6H PRN IV NAUSEA AND/OR VOMITING; Start 06/09 at 04:30 Morphine Sulfate (morphine) 2 mg Q4H PRN IV PAIN LEVEL 7-10 Last administered on 06/09/16 21:31; Admin Dose 2 MG; Start 06/09/16 at 04:30 Lorazepam (Ativan) 1 mg Q2H PRN IV ANXIETY; Start 06/09/16 at 04:30 Lactulose (Enulose) 20 gm Q8H PO Last administered on 06/10/16 21:17; Admin Dose 20 GM; Start 06/09/16 at 12:00 Dutasteride (Avodart) 0.5 mg AM PO ; Start 06/09/16 at 09:00 Finasteride (Proscar) 5 mg AM PO ; Start 06/09/16 at 09:00 Levothyroxine Sodium 50 mcg 50 mcg DAILY@06 PO Last administered on 06/10/16 05 :06; Admin Dose 50 MCG; Start 06/09/16 at 06:00 Norepinephrine 16 mg/Dextrose 500 ml @ 1.87 mls/hr TITRATE IV Last administered on 06/09/16 12:58; Admin Dose 1.87 MLS/HR; Start 06/09/16 at 10:00 Propofol 100 ml @ 3 mls/hr Q12H IV Last administered on 06/11/16 12:08; Admin Dose 6 MLS/HR; Start 06/09/16 at 06:30 Cefepime HCl (Maxipime 1gm/50 ml (Pmx)) 50 ml @ 100 mls/hr Q12 IVPB Last administered on 06/11/16 09:46; Admin Dose 100 MLS/HR; Start 06/09/16 at 12:00 IV Flush (NS 10 ml) 10 ml PRN PRN IV IV PROTOCOL; Start 06/09/16 at 17:00 Insulin Aspart (Novolog Insulin Pen) NOVOLOG *MILD* ALGORITHM Q6 SC Last administered on 06/11/16 12:11; Admin Dose 1 UNIT; Start 06/11/16 at 12:00 Diagnostic Test (Pha) 1 ea 1 ea 02 XX ; Start 06/12/16 at 02:00 Dextrose (D5W) 1,000 ml @ 100 mls/hr Q10H IV Last administered on 06/11/16 09: 46; Admin Dose 100 MLS/HR; Start 06/11/16 at 08:30 Miscellaneous Information 1 ea NOTE XX ; Start 06/11/16 at 08:30 Glucose (Glutose) 15 gm Q15M PRN PO DECREASED GLUCOSE; Start 06/11/16 at 08:30 Glucose (Glutose) 22.5 gm Q15M PRN PO DECREASED GLUCOSE; Start 06/11/16 at 08:30 Dextrose (D50w Syringe) 25 ml Q15M PRN IV DECREASED GLUCOSE; Start 06/11/16 at 08:30 Dextrose (D50w Syringe) 50 ml Q15M PRN IV DECREASED GLUCOSE; Start 06/11/16 at 08:30 Glucagon (Glucagen) 1 mg Q15M PRN IM DECREASED GLUCOSE; Start 06/11/16 at 08:30 Glucose 15 gm 15 gm Q15M PRN BUCCAL DECREASED GLUCOSE; Start 06/11/16 at 08:30 Vancomycin HCl/ Sodium Chloride (Vancocin/NS) 150 ml @ 75 mls/hr Q12H IVPB Last administered on 06/11/16 12:07; Admin Dose 75 MLS/HR; Start 06/11/16 at 12: 00 Rifaximin (Xifaxan) 550 mg BID PO ; Start 06/11/16 at 21:00; Status UNV Pantoprazole (Protonix Iv) 40 mg BID@06,18 IV ; Start 06/11/16 at 18:00; Status UNV DIOMEDES MOULTON Jun 11, 2016 13:50
[2016-06-11 14:23] LABS: AADO2 Arterial 146.5 mmHg (7.0-24.0); Allen Test ACCEPTAB; Arterial Base Excess 0.7 mmol/L (-3.0-3); Arterial COHb 0.3 % (0.0-3.0); Arterial Fraction of Oxyhgb 94.2 % (93.0-99.0); Arterial HCO3 22.4 mmol/L (22.0-26.0); Arterial MetHb 0.3 % (0.0-1.5); Blood Gas PS 10; MODE VENT - CPAP
[2016-06-11] MEDS: RIFAXIMIN 550 MG TAB PO SCH ×2 (18:00→22:02)
[2016-06-11] MEDS: PANTOPRAZOLE 40 MG INJ IV SCH (18:12)
[2016-06-11] MEDS: morphine 2 MG INJ IV PRN (20:06)
[2016-06-11] MEDS: LORAZEPAM 2 MG INJ IV PRN (20:35)
[2016-06-11] MEDS ORDERED: AMIODARONE 150MG/D5W BOLUS 100 ML ONE (21:43)
[2016-06-11] MEDS: AMIODARONE 900 MG in DEXTROSE 5% 482 ML IV SCH (21:56)
[2016-06-11] MEDS ORDERED: AMIODARONE 150MG/D5W BOLUS 100 ML IV ONE (22:00)
[2016-06-11 22:07] LABS: POTASSIUM 3.7 mmol/L (3.5-5.1)
[2016-06-11 22:10] LABS: MAGNESIUM 2.2 mg/dl (1.7-2.5)
[2016-06-11 23:46] LABS: ALBUMIN 2.4 g/dL (3.8-4.8)
[2016-06-12] VITALS (35 sets, daily range): BP systolic 109–184; BP diastolic 55–76; PULSE 66–100; RESP 14–23
[2016-06-12 00:51] LABS: HEMATOCRIT 28.3 % (42.0-52.0); HEMOGLOBIN 9.1 g/dl (14.0-18.0)
[2016-06-12] MEDS: DEXTROSE 5% 1,000 ML IV SCH ×5 (01:00→23:59)
[2016-06-12] MEDS: ACCU-CHEK XX SCH (02:00)
[2016-06-12] MEDS: LACTULOSE 30ML CUP PO SCH ×3 (04:00→20:30)
[2016-06-12] MEDS: morphine 2 MG INJ IV PRN (04:12)
[2016-06-12 05:01] LABS: ADD SCAN DIFF NO
[2016-06-12 05:21] LABS: BASOPHIL # 0.1 10^3/ul (0.0-0.1); BASOPHILS % 0.9 % (0.0-2.0); EOSINOPHILS # 0.3 10^3/ul (0.0-0.5); EOSINOPHILS % 3.3 % (0.0-7.0); HEMATOCRIT 29.6 % (42.0-52.0); HEMOGLOBIN 9.3 g/dl (14.0-18.0); LYMPHOCYTES # 0.8 10^3/ul (0.8-2.9); LYMPHOCYTES % 8.6 % (15.0-51.0); MEAN CORPUSCULAR HEMOGLOBIN 27.4 pg (29.0-33.0); MEAN CORPUSCULAR HGB CONC 31.4 g/dl (32.0-37.0); MEAN CORPUSCULAR VOLUME 87.1 fl (82.0-101.0); MEAN PLATELET VOLUME 11.6 fl (7.4-10.4); MONOCYTE # 0.9 10^3/ul (0.3-0.9); MONOCYTES % 9.6 % (0.0-11.0); NEUTROPHILS % 76.8 % (39.0-77.0); PLATELET COUNT 121 10^3/UL (140-415); RED CELL DISTRIBUTION WIDTH 18.6 % (11.5-14.5); WHITE BLOOD COUNT 9.1 10^3/ul (4.8-10.8)
[2016-06-12 05:39] LABS: ALBUMIN 2.1 g/dl (3.3-4.9)
[2016-06-12 05:40] LABS: POTASSIUM 3.5 mmol/L (3.5-5.1)
[2016-06-12 05:42] LABS: CREATININE 0.79 mg/dl (0.61-1.24)
[2016-06-12 05:43] LABS: ALBUMIN/GLOBULIN RATIO 0.75; CALCIUM 6.5 mg/dl (8.4-10.2); TOTAL PROTEIN 4.9 g/dl (6.1-8.1)
[2016-06-12] MEDS: PANTOPRAZOLE 40 MG INJ IV SCH ×2 (05:55→17:35)
[2016-06-12] MEDS: INSULIN ASPART [NOVOLOG] 3 ML PEN SC SCH ×4 (06:00→23:59)
[2016-06-12] MEDS: LEVOTHYROXINE 50 MCG TAB PO SCH (06:00)
[2016-06-12] MEDS: DUTASTERIDE 0.5 MG CAP PO SCH (08:25)
[2016-06-12] MEDS: FINASTERIDE 5 MG TAB PO SCH (08:25)
[2016-06-12] MEDS: RIFAXIMIN 550 MG TAB PO SCH ×2 (08:25→20:30)
[2016-06-12] MEDS: CEFEPIME 1GM/50 ML (PMX) 50 ML IVPB SCH ×2 (08:28→20:30)
[2016-06-12 08:32] LABS: AADO2 Arterial 113.9 mmHg (7.0-24.0); Allen Test ACCEPTAB; Arterial Base Excess -1.3 mmol/L (-3.0-3); Arterial COHb 0.1 % (0.0-3.0); Arterial Fraction of Oxyhgb 96.3 % (93.0-99.0); Arterial HCO3 22.4 mmol/L (22.0-26.0); Arterial MetHb 0.4 % (0.0-1.5); Arterial Total Hemglobin 11.5 g/dl (12.0-18.0); MODE VENT - AC
[2016-06-12 10:13] LABS: ALBUMIN 2.6 g/dl (3.3-4.9)
[2016-06-12 10:14] LABS: POTASSIUM 3.9 mmol/L (3.5-5.1)
[2016-06-12 10:16] LABS: BILIRUBIN,INDIRECT 1.2 mg/dl (0-1.1); BILIRUBIN,TOTAL 1.2 mg/dl (0.2-1.3); CREATININE 0.9 mg/dl (0.61-1.24)
[2016-06-12 10:17] LABS: ALBUMIN/GLOBULIN RATIO 0.81; CALCIUM 7.8 mg/dl (8.4-10.2); TOTAL PROTEIN 5.8 g/dl (6.1-8.1)
[2016-06-12] MEDS: FUROSEMIDE 40 MG INJ IV SCH (13:39)
[2016-06-12] MEDS: ARTIFICIAL TEARS 15 ML OPH BOTH EYES SCH ×3 (13:40→20:34)
--- NOTE | 2016-06-12 13:43 | CONS ---
Date/Time of Note Date/Time of Note DATE: 06/12/16 TIME: 13:37 Consult Date/Type/Reason Admit Date/Time Jun 09, 2016 at 04:01 Initial Consult Date 06/09/16 Type of Consultation: Pulm Subjective Still to obtunded for weaning. Remains on MV. Objective Vital Signs Date Time Temp Pulse Resp B/P Pulse Ox O2 Delivery O2 Flow Rate FiO2 06/12/16 12:00 88 19 184/72 100 Mechanical Ventilator 06/12/16 11:20 35 06/12/16 10:00 99.9 06/09/16 05:45 2.0 Intake and Output 06/11/16 06/11/16 06/12/16 15:00 23:00 07:00 Intake Total 654.5 ml 1179.3 ml 975.2 ml Output Total 835 ml 815 ml 485 ml Balance -180.5 ml 364.3 ml 490.2 ml HEENT: Neck supple; no JVD; no LAD CVS: RRR, S1 and S2 CHEST: Clear ABD: Distended, NT, + BS EXT: No c/c/ + edema Results/Medications Result Diagram: 06/12/16 0430 06/12/16 0906 Results 24 hrs Laboratory Tests Test 06/11/16 14:30 06/11/16 18:11 06/11/16 21:21 06/11/16 23:32 Arterial Blood HCO3 22.4 Arterial Blood Base Excess 0.7 Arterial Blood Oxygen Saturation 94.8 L Adelso Test ACCEPTAB Arterial Blood Gas Puncture Site Right Radial Arterial Blood Carboxyhemoglobin 0.3 Arterial Blood Date Drawn 06/11/2016 2:15:22 PM Arterial Blood Methemoglobin 0.3 Arterial Blood pCO2 (Temp correct) 26.7 L Arterial Blood pH (Temp corrected) 7.541 H Arterial Blood pO2 (Temp corrected) 72.0 L Blood Gas A-a O2 Differential 146.5 H Blood Gas Actual Respiration Rate 20 Blood Gas Low PEEP Setting 5.0 Blood Gas Modality VENT - CPAP Blood Gas Notified Time 06/11/2016 2:23:14 PM Blood Gas Notified Whom TM Blood Gas Pressure Support 10 Blood Gas Specimen Source Blood arterial Blood Gas Temperature 37.0 FiO2 35.0 Oxyhemoglobin Percent 94.2 Total Hemoglobin 11.0 L Bedside Glucose 170 143 Magnesium Level 2.2 Potassium Level 3.7 Test 06/12/16 00:25 06/12/16 04:30 06/12/16 06:00 06/12/16 07:00 Hematocrit 28.3 L 29.6 L Hemoglobin 9.1 L 9.3 L Alanine Aminotransferase (ALT/SGPT) 174 H Albumin 2.1 L Albumin/Globulin Ratio 0.75 Alkaline Phosphatase 71 Anion Gap 13 Aspartate Amino Transf (AST/SGOT) 180 H Basophils # 0.1 Basophils % 0.9 Blood Urea Nitrogen 28 #H Calcium Level 6.5 L Carbon Dioxide Level 21 Chloride Level 94 #L Creatinine 0.79 Direct Bilirubin 0.00 Eosinophils # 0.3 Eosinophils % 3.3 Globulin 2.80 Glucose Level 672 #*H Indirect Bilirubin 1.0 Lymphocytes # 0.8 Lymphocytes % 8.6 L Mean Corpuscular Hemoglobin 27.4 L Mean Corpuscular Hemoglobin Concent 31.4 L Mean Corpuscular Volume 87.1 Mean Platelet Volume 11.6 H Monocytes # 0.9 Monocytes % 9.6 Neutrophils # 7.0 Neutrophils % 76.8 Nucleated Red Blood Cells # 0.0 Nucleated Red Blood Cells % 0.0 Platelet Count 121 L Potassium Level 3.5 Red Blood Count 3.40 L Red Cell Distribution Width 18.6 H Sodium Level 124 #L Total Bilirubin 1.0 Total Protein 4.9 #L White Blood Count 9.1 Bedside Glucose 126 Arterial Blood HCO3 22.4 Arterial Blood Base Excess -1.3 Arterial Blood Oxygen Saturation 96.8 Adelso Test ACCEPTAB Arterial Blood Gas Puncture Site Left Radial Arterial Blood Carboxyhemoglobin 0.1 Arterial Blood Date Drawn 06/12/2016 8:00:29 AM Arterial Blood Methemoglobin 0.4 Arterial Blood pCO2 (Temp correct) 34.2 L Arterial Blood pH (Temp corrected) 7.434 Arterial Blood pO2 (Temp corrected) 95.9 H Blood Gas A-a O2 Differential 113.9 H Blood Gas Actual Respiration Rate 18 Blood Gas Low PEEP Setting 5.0 Blood Gas Modality VENT - AC Blood Gas Notified Time 06/12/2016 8:32:42 AM Blood Gas Notified Whom CW Blood Gas Respiration Rate 12.0 Blood Gas Specimen Source Blood arterial Blood Gas Temperature 37.0 Blood Gas Tidal Volume 650.0 FiO2 35.0 Oxyhemoglobin Percent 96.3 Total Hemoglobin 11.5 L Test 06/12/16 08:18 06/12/16 09:06 06/12/16 11:37 Bedside Glucose 121 110 Alanine Aminotransferase (ALT/SGPT) 191 H Albumin 2.6 L Albumin/Globulin Ratio 0.81 Alkaline Phosphatase 83 Anion Gap 14 Aspartate Amino Transf (AST/SGOT) 189 H Blood Urea Nitrogen 32 H Calcium Level 7.8 L Carbon Dioxide Level 24 Chloride Level 109 # Creatinine 0.90 Direct Bilirubin 0.00 Globulin 3.20 Glucose Level 113 # Indirect Bilirubin 1.2 H Potassium Level 3.9 Sodium Level 143 # Total Bilirubin 1.2 Total Protein 5.8 L Medications Current Medications Ondansetron HCl (Zofran Inj) 4 mg Q6H PRN IV NAUSEA AND/OR VOMITING; Start 06/09 at 04:30 Morphine Sulfate (morphine) 2 mg Q4H PRN IV PAIN LEVEL 7-10 Last administered on 06/12/16 04:12; Admin Dose 2 MG; Start 06/09/16 at 04:30 Lorazepam (Ativan) 1 mg Q2H PRN IV ANXIETY Last administered on 06/11/16 20:35 ; Admin Dose 1 MG; Start 06/09/16 at 04:30 Dutasteride (Avodart) 0.5 mg AM PO ; Start 06/09/16 at 09:00 Finasteride (Proscar) 5 mg AM PO ; Start 06/09/16 at 09:00 Levothyroxine Sodium 50 mcg 50 mcg DAILY@06 PO Last administered on 06/10/16 05 :06; Admin Dose 50 MCG; Start 06/09/16 at 06:00 Norepinephrine 16 mg/Dextrose 500 ml @ 1.87 mls/hr TITRATE IV Last administered on 06/09/16 12:58; Admin Dose 1.87 MLS/HR; Start 06/09/16 at 10:00 Propofol 100 ml @ 3 mls/hr Q12H IV Last administered on 06/11/16 21:09; Admin Dose 18 MLS/HR; Start 06/09/16 at 06:30 Cefepime HCl (Maxipime 1gm/50 ml (Pmx)) 50 ml @ 100 mls/hr Q12 IVPB Last administered on 06/12/16 08:28; Admin Dose 100 MLS/HR; Start 06/09/16 at 12:00 IV Flush (NS 10 ml) 10 ml PRN PRN IV IV PROTOCOL; Start 06/09/16 at 17:00 Insulin Aspart (Novolog Insulin Pen) NOVOLOG *MILD* ALGORITHM Q6 SC Last administered on 06/11/16 23:36; Admin Dose 1 UNIT; Start 06/11/16 at 12:00 Diagnostic Test (Pha) 1 ea 1 ea 02 XX ; Start 06/12/16 at 02:00 Dextrose (D5W) 1,000 ml @ 100 mls/hr Q10H IV Last administered on 06/12/16 08: 32; Admin Dose 100 MLS/HR; Start 06/11/16 at 08:30 Miscellaneous Information 1 ea NOTE XX ; Start 06/11/16 at 08:30 Glucose (Glutose) 15 gm Q15M PRN PO DECREASED GLUCOSE; Start 06/11/16 at 08:30 Glucose (Glutose) 22.5 gm Q15M PRN PO DECREASED GLUCOSE; Start 06/11/16 at 08:30 Dextrose (D50w Syringe) 25 ml Q15M PRN IV DECREASED GLUCOSE; Start 06/11/16 at 08:30 Dextrose (D50w Syringe) 50 ml Q15M PRN IV DECREASED GLUCOSE; Start 06/11/16 at 08:30 Glucagon (Glucagen) 1 mg Q15M PRN IM DECREASED GLUCOSE; Start 06/11/16 at 08:30 Glucose (Glutose) 15 gm Q15M PRN BUCCAL DECREASED GLUCOSE; Start 06/11/16 at 08: 30 Rifaximin (Xifaxan) 550 mg BID PO Last administered on 06/11/16 22:02; Admin Dose 550 MG; Start 06/11/16 at 14:30 Pantoprazole 40 mg 40 mg BID@06,18 IV Last administered on 06/12/16 05:55; Admin Dose 40 MG; Start 06/11/16 at 18:00 Amiodarone HCl/ Dextrose (Cordarone Iv/ D5W) 500 ml @ 0 mls/hr Q0M IV Last administered on 06/11/16 21:56; Admin Dose 33.3 MLS/HR; Start 06/11/16 at 22:00; Stop 06/12/16 at 21:59 Furosemide (Lasix) 40 mg DAILY IV ; Start 06/12/16 at 13:00 Eye Lubricant (Artificial Tears Oph) 2 drop QID BOTH EYES ; Start 06/12/16 at 13: 00 Lactulose (Enulose) 30 gm Q8H PO ; Start 06/12/16 at 20:00 Assessment/Plan Additional Assessment/Plan IMPRESSION: 1. Acute gastrointestinal bleed. 2. Hepatic encephalopathy 3. ESLD 4. Respiratory failure 5. S/P ARF-now resolved PLAN: 1. Increase lactulose; add rifaxamin via NG 2. Once more alert, will wean 3. Follow H/H 4. Complete octreotide gtt x 72 hours 5. Am labs 35 min cc time THEODORE DEMPSEY MD Jun 12, 2016 13:43
--- NOTE | 2016-06-12 14:24 | RADRPT ---
PROCEDURE: XR Chest. CLINICAL INDICATION: Shortness of breath. TECHNIQUE: Single frontal view. COMPARISON: 06/11/2016. FINDINGS: The endotracheal tube, left arm PICC line, and nasogastric tube are in satisfactory position. There is mild atelectasis at the lung bases, unchanged. Mild pulmonary edema is improved. The heart is enlarged. There is calcification in the aorta consistent with atherosclerosis. There is no pleural effusion. There is no pneumothorax. IMPRESSION: 1. Tubes and lines in satisfactory position. 2. Improved pulmonary edema. 3. Cardiomegaly and atherosclerosis. RPTAT: QQ .Emmanuel Murillo MD, MD Date Time Electronically viewed and signed by .Emmanuel Murillo MD, MD on 06/12/2016 14:24 .R/
[2016-06-12] MEDS: PROPOFOL 100 ML IV SCH ×2 (14:51→18:09)
[2016-06-12] MEDS: AMIODARONE 900 MG in DEXTROSE 5% 482 ML IV SCH (15:14)
--- NOTE | 2016-06-12 16:55 | CONS ---
Date/Time of Note Date/Time of Note DATE: 06/12/16 TIME: 16:55 Assessment/Plan Assessment/Plan Chief Complaint/Hosp Course Assessment and Plan: 1. 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 Severe Anemia 2/2 #1-stable 3. Decompensated Alcoholic Liver Cirrhosis with Encephalopathy. 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 - continue lactulose -Abd US shows no Ascites -pt last drink a year ago. Encouraged continued abstinence 4. Hypotension: 2/2 GI Bleed-resolved - cont IVF - pressors now off, DC'd Vanco as there is no e/o infection Problems: Consultation Date/Type/Reason Admit Date/Time Jun 09, 2016 at 04:01 Initial Consult Date 06/09/16 Type of Consultation: GI 24 HR Interval Summary Subjective hx not possible: pt non-verbal Exam/Review of Systems Vital Signs Vitals Vital Signs Date Time Temp Pulse Resp B/P Pulse Ox O2 Delivery O2 Flow Rate FiO2 06/12/16 16:00 75 16 115/60 99 Mechanical Ventilator 06/12/16 15:00 98.4 06/12/16 11:20 35 06/09/16 05:45 2.0 Intake and Output 06/11/16 06/11/16 06/12/16 15:00 23:00 07:00 Intake Total 654.5 ml 1179.3 ml 975.2 ml Output Total 835 ml 815 ml 485 ml Balance -180.5 ml 364.3 ml 490.2 ml Exam Constitutional: non-verbal Psych: confusion Head: atraumatic, normocephalic Eyes: nl conjunctiva, nl lids, nl sclera ENMT: mucosa pink and moist, nl external ears & nose, nl lips & teeth, nl nasal mucosa & septum Neck: non-tender, supple Respiratory: clear to auscultation, normal air movement Cardiovascular: nl pulses, regular rate and rhythm Gastrointestinal: bowel sounds, non-tender, soft Results Result Diagram: 06/12/16 0430 06/12/16 0906 Results 24 hrs Laboratory Tests Test 06/11/16 18:11 06/11/16 21:21 06/11/16 23:32 06/12/16 00:25 Bedside Glucose 170 143 Magnesium Level 2.2 Potassium Level 3.7 Hematocrit 28.3 L Hemoglobin 9.1 L Test 06/12/16 04:30 06/12/16 06:00 06/12/16 07:00 06/12/16 08:18 Alanine Aminotransferase (ALT/SGPT) 174 H Albumin 2.1 L Albumin/Globulin Ratio 0.75 Alkaline Phosphatase 71 Anion Gap 13 Aspartate Amino Transf (AST/SGOT) 180 H Basophils # 0.1 Basophils % 0.9 Blood Urea Nitrogen 28 #H Calcium Level 6.5 L Carbon Dioxide Level 21 Chloride Level 94 #L Creatinine 0.79 Direct Bilirubin 0.00 Eosinophils # 0.3 Eosinophils % 3.3 Globulin 2.80 Glucose Level 672 #*H Hematocrit 29.6 L Hemoglobin 9.3 L Indirect Bilirubin 1.0 Lymphocytes # 0.8 Lymphocytes % 8.6 L Mean Corpuscular Hemoglobin 27.4 L Mean Corpuscular Hemoglobin Concent 31.4 L Mean Corpuscular Volume 87.1 Mean Platelet Volume 11.6 H Monocytes # 0.9 Monocytes % 9.6 Neutrophils # 7.0 Neutrophils % 76.8 Nucleated Red Blood Cells # 0.0 Nucleated Red Blood Cells % 0.0 Platelet Count 121 L Potassium Level 3.5 Red Blood Count 3.40 L Red Cell Distribution Width 18.6 H Sodium Level 124 #L Total Bilirubin 1.0 Total Protein 4.9 #L White Blood Count 9.1 Bedside Glucose 126 121 Arterial Blood HCO3 22.4 Arterial Blood Base Excess -1.3 Arterial Blood Oxygen Saturation 96.8 Adelso Test ACCEPTAB Arterial Blood Gas Puncture Site Left Radial Arterial Blood Carboxyhemoglobin 0.1 Arterial Blood Date Drawn 06/12/2016 8:00:29 AM Arterial Blood Methemoglobin 0.4 Arterial Blood pCO2 (Temp correct) 34.2 L Arterial Blood pH (Temp corrected) 7.434 Arterial Blood pO2 (Temp corrected) 95.9 H Blood Gas A-a O2 Differential 113.9 H Blood Gas Actual Respiration Rate 18 Blood Gas Low PEEP Setting 5.0 Blood Gas Modality VENT - AC Blood Gas Notified Time 06/12/2016 8:32:42 AM Blood Gas Notified Whom CW Blood Gas Respiration Rate 12.0 Blood Gas Specimen Source Blood arterial Blood Gas Temperature 37.0 Blood Gas Tidal Volume 650.0 FiO2 35.0 Oxyhemoglobin Percent 96.3 Total Hemoglobin 11.5 L Test 06/12/16 09:06 06/12/16 11:37 06/12/16 13:30 Alanine Aminotransferase (ALT/SGPT) 191 H Albumin 2.6 L Albumin/Globulin Ratio 0.81 Alkaline Phosphatase 83 Anion Gap 14 Aspartate Amino Transf (AST/SGOT) 189 H Blood Urea Nitrogen 32 H Calcium Level 7.8 L Carbon Dioxide Level 24 Chloride Level 109 # Creatinine 0.90 Direct Bilirubin 0.00 Globulin 3.20 Glucose Level 113 # Indirect Bilirubin 1.2 H Potassium Level 3.9 Sodium Level 143 # Total Bilirubin 1.2 Total Protein 5.8 L Bedside Glucose 110 Ammonia 53 H Medications Medications Current Medications Ondansetron HCl (Zofran Inj) 4 mg Q6H PRN IV NAUSEA AND/OR VOMITING; Start 06/09 at 04:30 Morphine Sulfate (morphine) 2 mg Q4H PRN IV PAIN LEVEL 7-10 Last administered on 06/12/16 04:12; Admin Dose 2 MG; Start 06/09/16 at 04:30 Lorazepam (Ativan) 1 mg Q2H PRN IV ANXIETY Last administered on 06/11/16 20:35 ; Admin Dose 1 MG; Start 06/09/16 at 04:30 Dutasteride (Avodart) 0.5 mg AM PO ; Start 06/09/16 at 09:00 Finasteride (Proscar) 5 mg AM PO ; Start 06/09/16 at 09:00 Levothyroxine Sodium 50 mcg 50 mcg DAILY@06 PO Last administered on 06/10/16 05 :06; Admin Dose 50 MCG; Start 06/09/16 at 06:00 Norepinephrine 16 mg/Dextrose 500 ml @ 1.87 mls/hr TITRATE IV Last administered on 06/09/16 12:58; Admin Dose 1.87 MLS/HR; Start 06/09/16 at 10:00 Propofol 100 ml @ 3 mls/hr Q12H IV Last administered on 06/12/16 14:51; Admin Dose 24 MLS/HR; Start 06/09/16 at 06:30 Cefepime HCl (Maxipime 1gm/50 ml (Pmx)) 50 ml @ 100 mls/hr Q12 IVPB Last administered on 06/12/16 08:28; Admin Dose 100 MLS/HR; Start 06/09/16 at 12:00 IV Flush (NS 10 ml) 10 ml PRN PRN IV IV PROTOCOL; Start 06/09/16 at 17:00 Insulin Aspart (Novolog Insulin Pen) NOVOLOG *MILD* ALGORITHM Q6 SC Last administered on 06/11/16 23:36; Admin Dose 1 UNIT; Start 06/11/16 at 12:00 Diagnostic Test (Pha) 1 ea 1 ea 02 XX ; Start 06/12/16 at 02:00 Dextrose (D5W) 1,000 ml @ 100 mls/hr Q10H IV Last administered on 06/12/16 08: 32; Admin Dose 100 MLS/HR; Start 06/11/16 at 08:30 Miscellaneous Information 1 ea NOTE XX ; Start 06/11/16 at 08:30 Glucose (Glutose) 15 gm Q15M PRN PO DECREASED GLUCOSE; Start 06/11/16 at 08:30 Glucose (Glutose) 22.5 gm Q15M PRN PO DECREASED GLUCOSE; Start 06/11/16 at 08:30 Dextrose (D50w Syringe) 25 ml Q15M PRN IV DECREASED GLUCOSE; Start 06/11/16 at 08:30 Dextrose (D50w Syringe) 50 ml Q15M PRN IV DECREASED GLUCOSE; Start 06/11/16 at 08:30 Glucagon (Glucagen) 1 mg Q15M PRN IM DECREASED GLUCOSE; Start 06/11/16 at 08:30 Glucose (Glutose) 15 gm Q15M PRN BUCCAL DECREASED GLUCOSE; Start 06/11/16 at 08: 30 Rifaximin (Xifaxan) 550 mg BID PO Last administered on 06/11/16 22:02; Admin Dose 550 MG; Start 06/11/16 at 14:30 Pantoprazole 40 mg 40 mg BID@06,18 IV Last administered on 06/12/16 05:55; Admin Dose 40 MG; Start 06/11/16 at 18:00 Amiodarone HCl/ Dextrose (Cordarone Iv/ D5W) 500 ml @ 0 mls/hr Q0M IV Last administered on 06/12/16 15:14; Admin Dose 16.7 MLS/HR; Start 06/11/16 at 22:00; Stop 06/12/16 at 21:59 Furosemide (Lasix) 40 mg DAILY IV Last administered on 06/12/16 13:39; Admin Dose 40 MG; Start 06/12/16 at 13:00 Eye Lubricant (Artificial Tears Oph) 2 drop QID BOTH EYES Last administered on 06/12/16 16:20; Admin Dose 2 DROP; Start 06/12/16 at 13:00 Lactulose (Enulose) 30 gm Q8H PO ; Start 06/12/16 at 20:00 ARMANI VALLADARES MD Jun 12, 2016 16:55 Furosemide (Lasix) 40 mg DAILY IV Last administered on 06/12/16 13:39; Admin Dose 40 MG; Start 06/12/16 at 13:00 Eye Lubricant (Artificial Tears Oph) 2 drop QID BOTH EYES Last administered on 06/12/16 16:20; Admin Dose 2 DROP; Start 06/12/16 at 13:00 Lactulose (Enulose) 30 gm Q8H PO ; Start 06/12/16 at 20:00 ARMANI VALLADARES MD Jun 12, 2016 16:55
[2016-06-12] MEDS ORDERED: hydrALAzine 20 MG INJ IV PRN (17:00)
--- NOTE | 2016-06-12 17:00 | PN ---
Date/Time of Note Date/Time of Note DATE: 06/12/16 TIME: 16:51 Assessment/Plan VTE Prophylaxis VTE Prophylaxis Intervention: SCD's Assessment/Plan Chief Complaint/Hosp Course 1. 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 Severe Anemia 2/2 #1-stable 3. Decompensated Alcoholic Liver Cirrhosis with Encephalopathy -Increased Lactulose dose -Abd US shows no Ascites -Hep panel shows Hx of Exposure to Hep B but no active infection, Ammonia level still elevated -pt last drink a year ago. Encouraged continued abstinence 4. Hypotension: 2/2 GI Bleed-resolved - cont IVF - pressors now off, DC'd Vanco as there is no e/o infection 5. Low TSH 2/2 sick euthyroid -T4 is nl 6. Resp Failure -weaning trials when mentation improved, has been off Propofol since last night but still obtunded PPx-SCDs Problems: Subjective 24 Hr Interval Summary Subjective hx not possible: pt non-verbal Exam/Review of Systems Vital Signs Vitals Vital Signs Date Time Temp Pulse Resp B/P Pulse Ox O2 Delivery O2 Flow Rate FiO2 06/12/16 16:00 75 16 115/60 99 Mechanical Ventilator 06/12/16 15:00 98.4 06/12/16 11:20 35 06/09/16 05:45 2.0 Intake and Output 06/11/16 06/11/16 06/12/16 15:00 23:00 07:00 Intake Total 654.5 ml 1179.3 ml 975.2 ml Output Total 835 ml 815 ml 485 ml Balance -180.5 ml 364.3 ml 490.2 ml Exam Constitutional: non-verbal ENMT: intubated Respiratory: clear to auscultation Cardiovascular: regular rate and rhythm Gastrointestinal: distended, soft Extremities: edema Results Result Diagram: 06/12/16 0430 06/12/16 0906 Results 24 hrs Laboratory Tests Test 06/11/16 18:11 06/11/16 21:21 06/11/16 23:32 06/12/16 00:25 Bedside Glucose 170 143 Magnesium Level 2.2 Potassium Level 3.7 Hematocrit 28.3 L Hemoglobin 9.1 L Test 06/12/16 04:30 06/12/16 06:00 06/12/16 07:00 06/12/16 08:18 Alanine Aminotransferase (ALT/SGPT) 174 H Albumin 2.1 L Albumin/Globulin Ratio 0.75 Alkaline Phosphatase 71 Anion Gap 13 Aspartate Amino Transf (AST/SGOT) 180 H Basophils # 0.1 Basophils % 0.9 Blood Urea Nitrogen 28 #H Calcium Level 6.5 L Carbon Dioxide Level 21 Chloride Level 94 #L Creatinine 0.79 Direct Bilirubin 0.00 Eosinophils # 0.3 Eosinophils % 3.3 Globulin 2.80 Glucose Level 672 #*H Hematocrit 29.6 L Hemoglobin 9.3 L Indirect Bilirubin 1.0 Lymphocytes # 0.8 Lymphocytes % 8.6 L Mean Corpuscular Hemoglobin 27.4 L Mean Corpuscular Hemoglobin Concent 31.4 L Mean Corpuscular Volume 87.1 Mean Platelet Volume 11.6 H Monocytes # 0.9 Monocytes % 9.6 Neutrophils # 7.0 Neutrophils % 76.8 Nucleated Red Blood Cells # 0.0 Nucleated Red Blood Cells % 0.0 Platelet Count 121 L Potassium Level 3.5 Red Blood Count 3.40 L Red Cell Distribution Width 18.6 H Sodium Level 124 #L Total Bilirubin 1.0 Total Protein 4.9 #L White Blood Count 9.1 Bedside Glucose 126 121 Arterial Blood HCO3 22.4 Arterial Blood Base Excess -1.3 Arterial Blood Oxygen Saturation 96.8 Adelso Test ACCEPTAB Arterial Blood Gas Puncture Site Left Radial Arterial Blood Carboxyhemoglobin 0.1 Arterial Blood Date Drawn 06/12/2016 8:00:29 AM Arterial Blood Methemoglobin 0.4 Arterial Blood pCO2 (Temp correct) 34.2 L Arterial Blood pH (Temp corrected) 7.434 Arterial Blood pO2 (Temp corrected) 95.9 H Blood Gas A-a O2 Differential 113.9 H Blood Gas Actual Respiration Rate 18 Blood Gas Low PEEP Setting 5.0 Blood Gas Modality VENT - AC Blood Gas Notified Time 06/12/2016 8:32:42 AM Blood Gas Notified Whom CW Blood Gas Respiration Rate 12.0 Blood Gas Specimen Source Blood arterial Blood Gas Temperature 37.0 Blood Gas Tidal Volume 650.0 FiO2 35.0 Oxyhemoglobin Percent 96.3 Total Hemoglobin 11.5 L Test 06/12/16 09:06 06/12/16 11:37 06/12/16 13:30 Alanine Aminotransferase (ALT/SGPT) 191 H Albumin 2.6 L Albumin/Globulin Ratio 0.81 Alkaline Phosphatase 83 Anion Gap 14 Aspartate Amino Transf (AST/SGOT) 189 H Blood Urea Nitrogen 32 H Calcium Level 7.8 L Carbon Dioxide Level 24 Chloride Level 109 # Creatinine 0.90 Direct Bilirubin 0.00 Globulin 3.20 Glucose Level 113 # Indirect Bilirubin 1.2 H Potassium Level 3.9 Sodium Level 143 # Total Bilirubin 1.2 Total Protein 5.8 L Bedside Glucose 110 Ammonia 53 H Medications Medications Current Medications Ondansetron HCl (Zofran Inj) 4 mg Q6H PRN IV NAUSEA AND/OR VOMITING; Start 06/09 at 04:30 Morphine Sulfate (morphine) 2 mg Q4H PRN IV PAIN LEVEL 7-10 Last administered on 06/12/16 04:12; Admin Dose 2 MG; Start 06/09/16 at 04:30 Lorazepam (Ativan) 1 mg Q2H PRN IV ANXIETY Last administered on 06/11/16 20:35 ; Admin Dose 1 MG; Start 06/09/16 at 04:30 Dutasteride (Avodart) 0.5 mg AM PO ; Start 06/09/16 at 09:00 Finasteride (Proscar) 5 mg AM PO ; Start 06/09/16 at 09:00 Levothyroxine Sodium 50 mcg 50 mcg DAILY@06 PO Last administered on 06/10/16 05 :06; Admin Dose 50 MCG; Start 06/09/16 at 06:00 Norepinephrine 16 mg/Dextrose 500 ml @ 1.87 mls/hr TITRATE IV Last administered on 06/09/16 12:58; Admin Dose 1.87 MLS/HR; Start 06/09/16 at 10:00 Propofol 100 ml @ 3 mls/hr Q12H IV Last administered on 06/12/16 14:51; Admin Dose 24 MLS/HR; Start 06/09/16 at 06:30 Cefepime HCl (Maxipime 1gm/50 ml (Pmx)) 50 ml @ 100 mls/hr Q12 IVPB Last administered on 06/12/16 08:28; Admin Dose 100 MLS/HR; Start 06/09/16 at 12:00 IV Flush (NS 10 ml) 10 ml PRN PRN IV IV PROTOCOL; Start 06/09/16 at 17:00 Insulin Aspart (Novolog Insulin Pen) NOVOLOG *MILD* ALGORITHM Q6 SC Last administered on 06/11/16 23:36; Admin Dose 1 UNIT; Start 06/11/16 at 12:00 Diagnostic Test (Pha) 1 ea 1 ea 02 XX ; Start 06/12/16 at 02:00 Dextrose (D5W) 1,000 ml @ 100 mls/hr Q10H IV Last administered on 06/12/16 08: 32; Admin Dose 100 MLS/HR; Start 06/11/16 at 08:30 Miscellaneous Information 1 ea NOTE XX ; Start 06/11/16 at 08:30 Glucose (Glutose) 15 gm Q15M PRN PO DECREASED GLUCOSE; Start 06/11/16 at 08:30 Glucose (Glutose) 22.5 gm Q15M PRN PO DECREASED GLUCOSE; Start 06/11/16 at 08:30 Dextrose (D50w Syringe) 25 ml Q15M PRN IV DECREASED GLUCOSE; Start 06/11/16 at 08:30 Dextrose (D50w Syringe) 50 ml Q15M PRN IV DECREASED GLUCOSE; Start 06/11/16 at 08:30 Glucagon (Glucagen) 1 mg Q15M PRN IM DECREASED GLUCOSE; Start 06/11/16 at 08:30 Glucose (Glutose) 15 gm Q15M PRN BUCCAL DECREASED GLUCOSE; Start 06/11/16 at 08: 30 Rifaximin (Xifaxan) 550 mg BID PO Last administered on 06/11/16 22:02; Admin Dose 550 MG; Start 06/11/16 at 14:30 Pantoprazole 40 mg 40 mg BID@06,18 IV Last administered on 06/12/16 05:55; Admin Dose 40 MG; Start 06/11/16 at 18:00 Amiodarone HCl/ Dextrose (Cordarone Iv/ D5W) 500 ml @ 0 mls/hr Q0M IV Last administered on 06/12/16 15:14; Admin Dose 16.7 MLS/HR; Start 06/11/16 at 22:00; Stop 06/12/16 at 21:59 Furosemide (Lasix) 40 mg DAILY IV Last administered on 06/12/16 13:39; Admin Dose 40 MG; Start 06/12/16 at 13:00 Eye Lubricant (Artificial Tears Oph) 2 drop QID BOTH EYES Last administered on 06/12/16t 16:20; Admin Dose 2 DROP; Start 06/12/16 at 13:00 Lactulose (Enulose) 30 gm Q8H PO ; Start 06/12/16 at 20:00 DIOMEDES MOULTON Jun 12, 2016 17:00
[2016-06-13] VITALS (38 sets, daily range): BP systolic 101–154; BP diastolic 55–84; PULSE 75–141; RESP 12–19
[2016-06-13] MEDS: ACCU-CHEK XX SCH (02:00)
[2016-06-13] MEDS: LACTULOSE 30ML CUP PO SCH ×3 (04:00→20:00)
[2016-06-13 04:59] LABS: ADD SCAN DIFF NO
[2016-06-13] MEDS: PROPOFOL 100 ML IV SCH ×4 (05:10→22:33)
[2016-06-13] MEDS: DEXTROSE 5% 1,000 ML IV SCH ×2 (05:11→14:56)
[2016-06-13 05:18] LABS: BASOPHIL # 0.1 10^3/ul (0.0-0.1); BASOPHILS % 0.9 % (0.0-2.0); EOSINOPHILS # 0.6 10^3/ul (0.0-0.5); EOSINOPHILS % 8.4 % (0.0-7.0); HEMATOCRIT 28.5 % (42.0-52.0); HEMOGLOBIN 8.9 g/dl (14.0-18.0); LYMPHOCYTES # 0.9 10^3/ul (0.8-2.9); LYMPHOCYTES % 11.6 % (15.0-51.0); MEAN CORPUSCULAR HEMOGLOBIN 27.5 pg (29.0-33.0); MEAN CORPUSCULAR HGB CONC 31.2 g/dl (32.0-37.0); MEAN PLATELET VOLUME 10.9 fl (7.4-10.4); MONOCYTE # 0.9 10^3/ul (0.3-0.9); MONOCYTES % 11.5 % (0.0-11.0); NEUTROPHILS % 66.9 % (39.0-77.0); PLATELET COUNT 110 10^3/UL (140-415); RED BLOOD COUNT 3.24 10^6/ul (4.70-6.10); RED CELL DISTRIBUTION WIDTH 19.1 % (11.5-14.5); WHITE BLOOD COUNT 7.5 10^3/ul (4.8-10.8)
[2016-06-13 05:27] LABS: ALBUMIN 2.4 g/dl (3.3-4.9); POTASSIUM 3.7 mmol/L (3.5-5.1)
[2016-06-13 05:29] LABS: BILIRUBIN,INDIRECT 0.8 mg/dl (0-1.1); BILIRUBIN,TOTAL 0.8 mg/dl (0.2-1.3); CREATININE 0.89 mg/dl (0.61-1.24)
[2016-06-13 05:30] LABS: ALBUMIN/GLOBULIN RATIO 0.8; CALCIUM 7.8 mg/dl (8.4-10.2); TOTAL PROTEIN 5.4 g/dl (6.1-8.1)
[2016-06-13 05:32] LABS: MAGNESIUM 2.1 mg/dl (1.7-2.5); PHOSPHORUS 3.3 mg/dl (2.5-4.9)
[2016-06-13] MEDS: PANTOPRAZOLE 40 MG INJ IV SCH ×2 (05:51→17:25)
[2016-06-13] MEDS: INSULIN ASPART [NOVOLOG] 3 ML PEN SC SCH ×3 (06:00→17:35)
[2016-06-13] MEDS: LEVOTHYROXINE 50 MCG TAB PO SCH (06:01)
[2016-06-13] MEDS: CEFEPIME 1GM/50 ML (PMX) 50 ML IVPB SCH ×2 (08:05→20:37)
[2016-06-13] MEDS: ARTIFICIAL TEARS 15 ML OPH BOTH EYES SCH ×4 (08:05→20:36)
[2016-06-13] MEDS: RIFAXIMIN 550 MG TAB PO SCH ×2 (08:06→20:37)
[2016-06-13] MEDS: FINASTERIDE 5 MG TAB PO SCH (08:06)
[2016-06-13] MEDS: DUTASTERIDE 0.5 MG CAP PO SCH (08:06)
[2016-06-13] MEDS: FUROSEMIDE 40 MG INJ IV SCH (08:06)
--- NOTE | 2016-06-13 13:19 | CONS ---
Date/Time of Note Date/Time of Note DATE: 06/13/16 TIME: 13:13 Consult Date/Type/Reason Admit Date/Time Jun 09, 2016 at 04:01 Initial Consult Date 06/09/16 Type of Consultation: Pulm Subjective Still confused and not following commands. Having 4 BM's/day on lactulose and rifaximin. Objective Vital Signs Date Time Temp Pulse Resp B/P Pulse Ox O2 Delivery O2 Flow Rate FiO2 06/13/16 13:00 75 13 120/64 99 Mechanical Ventilator 06/13/16 12:00 99.2 06/13/16 09:50 40 Intake and Output 06/12/16 06/12/16 06/13/16 15:00 23:00 07:00 Intake Total 1007.6 ml 1126.1 ml 918.5 ml Output Total 775 ml 1305 ml 640 ml Balance 232.6 ml -178.9 ml 278.5 ml HEENT: Neck supple; no JVD; no LAD CVS: RRR, S1 and S2 CHEST: Clear ABD: Distended, NT, + BS EXT: No c/c/ + edema Results/Medications Result Diagram: 06/13/16 0400 06/13/16 0400 Results 24 hrs Laboratory Tests Test 06/12/16 13:30 06/12/16 17:37 06/12/16 23:44 06/13/16 04:00 Ammonia 53 H 28 # Bedside Glucose 86 103 Alanine Aminotransferase (ALT/SGPT) 139 H Albumin 2.4 L Albumin/Globulin Ratio 0.80 Alkaline Phosphatase 85 Anion Gap 16 Aspartate Amino Transf (AST/SGOT) 96 H Basophils # 0.1 Basophils % 0.9 Blood Urea Nitrogen 29 H Calcium Level 7.8 L Carbon Dioxide Level 25 Chloride Level 108 Creatinine 0.89 Direct Bilirubin 0.00 Eosinophils # 0.6 H Eosinophils % 8.4 H Globulin 3.00 Glucose Level 97 Hematocrit 28.5 L Hemoglobin 8.9 L Indirect Bilirubin 0.8 Lymphocytes # 0.9 Lymphocytes % 11.6 L Magnesium Level 2.1 Mean Corpuscular Hemoglobin 27.5 L Mean Corpuscular Hemoglobin Concent 31.2 L Mean Corpuscular Volume 88.0 Mean Platelet Volume 10.9 H Monocytes # 0.9 Monocytes % 11.5 H Neutrophils # 5.0 Neutrophils % 66.9 Nucleated Red Blood Cells # 0.0 Nucleated Red Blood Cells % 0.0 Phosphorus Level 3.3 Platelet Count 110 L Potassium Level 3.7 Red Blood Count 3.24 L Red Cell Distribution Width 19.1 H Sodium Level 145 H Total Bilirubin 0.8 Total Protein 5.4 L White Blood Count 7.5 Test 06/13/16 05:50 06/13/16 11:40 Bedside Glucose 109 99 Medications Current Medications Ondansetron HCl (Zofran Inj) 4 mg Q6H PRN IV NAUSEA AND/OR VOMITING; Start 06/09 at 04:30 Morphine Sulfate (morphine) 2 mg Q4H PRN IV PAIN LEVEL 7-10 Last administered on 06/12/16 04:12; Admin Dose 2 MG; Start 06/09/16 at 04:30 Lorazepam (Ativan) 1 mg Q2H PRN IV ANXIETY Last administered on 06/11/16 20:35 ; Admin Dose 1 MG; Start 06/09/16 at 04:30 Dutasteride (Avodart) 0.5 mg AM PO ; Start 06/09/16 at 09:00 Finasteride (Proscar) 5 mg AM PO Last administered on 06/13/16 08:06; Admin Dose 5 MG; Start 06/09/16 at 09:00 Levothyroxine Sodium 50 mcg 50 mcg DAILY@06 PO Last administered on 06/13/16 06 :01; Admin Dose 50 MCG; Start 06/09/16 at 06:00 Norepinephrine 16 mg/Dextrose 500 ml @ 1.87 mls/hr TITRATE IV Last administered on 06/09/16 12:58; Admin Dose 1.87 MLS/HR; Start 06/09/16 at 10:00 Propofol 100 ml @ 3 mls/hr Q12H IV Last administered on 06/13/16 09:32; Admin Dose 15 MLS/HR; Start 06/09/16 at 06:30 Cefepime HCl (Maxipime 1gm/50 ml (Pmx)) 50 ml @ 100 mls/hr Q12 IVPB Last administered on 06/13/16 08:05; Admin Dose 100 MLS/HR; Start 06/09/16 at 12:00 IV Flush (NS 10 ml) 10 ml PRN PRN IV IV PROTOCOL; Start 06/09/16 at 17:00 Insulin Aspart (Novolog Insulin Pen) NOVOLOG *MILD* ALGORITHM Q6 SC Last administered on 06/11/16 23:36; Admin Dose 1 UNIT; Start 06/11/16 at 12:00 Diagnostic Test (Pha) 1 ea 1 ea 02 XX ; Start 06/12/16 at 02:00 Dextrose (D5W) 1,000 ml @ 100 mls/hr Q10H IV Last administered on 06/13/16 05: 11; Admin Dose 100 MLS/HR; Start 06/11/16 at 08:30 Miscellaneous Information 1 ea NOTE XX ; Start 06/11/16 at 08:30 Glucose (Glutose) 15 gm Q15M PRN PO DECREASED GLUCOSE; Start 06/11/16 at 08:30 Glucose (Glutose) 22.5 gm Q15M PRN PO DECREASED GLUCOSE; Start 06/11/16 at 08:30 Dextrose (D50w Syringe) 25 ml Q15M PRN IV DECREASED GLUCOSE; Start 06/11/16 at 08:30 Dextrose (D50w Syringe) 50 ml Q15M PRN IV DECREASED GLUCOSE; Start 06/11/16 at 08:30 Glucagon (Glucagen) 1 mg Q15M PRN IM DECREASED GLUCOSE; Start 06/11/16 at 08:30 Glucose (Glutose) 15 gm Q15M PRN BUCCAL DECREASED GLUCOSE; Start 06/11/16 at 08: 30 Rifaximin (Xifaxan) 550 mg BID PO Last administered on 06/13/16 08:06; Admin Dose 550 MG; Start 06/11/16 at 14:30 Pantoprazole (Protonix Iv) 40 mg BID@06,18 IV Last administered on 06/13/16 05: 51; Admin Dose 40 MG; Start 06/11/16 at 18:00 Furosemide (Lasix) 40 mg DAILY IV Last administered on 06/13/16 08:06; Admin Dose 40 MG; Start 06/12/16 at 13:00 Eye Lubricant (Artificial Tears Oph) 2 drop QID BOTH EYES Last administered on 06/13/16 12:27; Admin Dose 2 DROP; Start 06/12/16 at 13:00 Lactulose (Enulose) 30 gm Q8H PO Last administered on 06/12/16 20:30; Admin Dose 30 GM; Start 06/12/16 at 20:00 Hydralazine HCl (Apresoline) 10 mg Q2H PRN IV SBP>170; Start 06/12/16 at 17:00 Assessment/Plan Additional Assessment/Plan IMPRESSION: 1. Acute gastrointestinal bleed. 2. AMS ? Hepatic encephalopathy +/- other toxic metabolic causes. r/o non- convulsive status 3. ESLD 4. Respiratory failure/Vent remains due to AMS 5. S/P ARF-now resolved PLAN: 1. Continue lactulose and rifaxamin via NG 2. Once more alert, will wean 3. Follow H/H 4. Complete octreotide gtt x 72 hours 5. Obtain EEG 35 min cc time THEODORE DEMPSEY MD Jun 13, 2016 13:19
--- NOTE | 2016-06-13 13:51 | PN ---
Date/Time of Note Date/Time of Note DATE: 06/13/16 TIME: 13:46 Assessment/Plan VTE Prophylaxis VTE Prophylaxis Intervention: SCD's Assessment/Plan Chief Complaint/Hosp Course 1. 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 Severe Anemia 2/2 #1-stable 3. Decompensated Alcoholic Liver Cirrhosis with Encephalopathy -Increased Lactulose dose yesterday and Ammonia has decreased but still obtunded when off sedation and fighting the vent hence Propofol was restarted, cont sedation vacations -Abd US shows no Ascites -Hep panel shows Hx of Exposure to Hep B but no active infection -pt last drink a year ago, encouraged continued abstinence 4. Hypotension: 2/2 GI Bleed-resolved - cont IVF - pressors now off, DC'd Vanco as there is no e/o infection 5. Low TSH 2/2 sick euthyroid -T4 is nl 6. Resp Failure -weaning trials when mentation improved, Propofol restarted 2/2 pt fighting the vent when off sedation PPx-SCDs Problems: Subjective 24 Hr Interval Summary Subjective hx not possible: pt non-verbal Exam/Review of Systems Vital Signs Vitals Vital Signs Date Time Temp Pulse Resp B/P Pulse Ox O2 Delivery O2 Flow Rate FiO2 06/13/16 13:00 75 13 120/64 99 Mechanical Ventilator 06/13/16 12:00 99.2 06/13/16 09:50 40 Intake and Output 06/12/16 06/12/16 06/13/16 15:00 23:00 07:00 Intake Total 1007.6 ml 1126.1 ml 918.5 ml Output Total 775 ml 1305 ml 640 ml Balance 232.6 ml -178.9 ml 278.5 ml Exam Constitutional: non-verbal ENMT: intubated Respiratory: clear to auscultation Cardiovascular: regular rate and rhythm Gastrointestinal: distended, soft Extremities: edema Results Result Diagram: 06/13/16 0400 06/13/16 0400 Results 24 hrs Laboratory Tests Test 06/12/16 17:37 06/12/16 23:44 06/13/16 04:00 06/13/16 05:50 Bedside Glucose 86 103 109 Alanine Aminotransferase (ALT/SGPT) 139 H Albumin 2.4 L Albumin/Globulin Ratio 0.80 Alkaline Phosphatase 85 Ammonia 28 # Anion Gap 16 Aspartate Amino Transf (AST/SGOT) 96 H Basophils # 0.1 Basophils % 0.9 Blood Urea Nitrogen 29 H Calcium Level 7.8 L Carbon Dioxide Level 25 Chloride Level 108 Creatinine 0.89 Direct Bilirubin 0.00 Eosinophils # 0.6 H Eosinophils % 8.4 H Globulin 3.00 Glucose Level 97 Hematocrit 28.5 L Hemoglobin 8.9 L Indirect Bilirubin 0.8 Lymphocytes # 0.9 Lymphocytes % 11.6 L Magnesium Level 2.1 Mean Corpuscular Hemoglobin 27.5 L Mean Corpuscular Hemoglobin Concent 31.2 L Mean Corpuscular Volume 88.0 Mean Platelet Volume 10.9 H Monocytes # 0.9 Monocytes % 11.5 H Neutrophils # 5.0 Neutrophils % 66.9 Nucleated Red Blood Cells # 0.0 Nucleated Red Blood Cells % 0.0 Phosphorus Level 3.3 Platelet Count 110 L Potassium Level 3.7 Red Blood Count 3.24 L Red Cell Distribution Width 19.1 H Sodium Level 145 H Total Bilirubin 0.8 Total Protein 5.4 L White Blood Count 7.5 Test 06/13/16 11:40 Bedside Glucose 99 Medications Medications Current Medications Ondansetron HCl (Zofran Inj) 4 mg Q6H PRN IV NAUSEA AND/OR VOMITING; Start 06/09 at 04:30 Morphine Sulfate (morphine) 2 mg Q4H PRN IV PAIN LEVEL 7-10 Last administered on 06/12/16 04:12; Admin Dose 2 MG; Start 06/09/16 at 04:30 Lorazepam (Ativan) 1 mg Q2H PRN IV ANXIETY Last administered on 06/11/16 20:35 ; Admin Dose 1 MG; Start 06/09/16 at 04:30 Dutasteride (Avodart) 0.5 mg AM PO ; Start 06/09/16 at 09:00 Finasteride (Proscar) 5 mg AM PO Last administered on 06/13/16 08:06; Admin Dose 5 MG; Start 06/09/16 at 09:00 Levothyroxine Sodium 50 mcg 50 mcg DAILY@06 PO Last administered on 06/13/16 06 :01; Admin Dose 50 MCG; Start 06/09/16 at 06:00 Norepinephrine 16 mg/Dextrose 500 ml @ 1.87 mls/hr TITRATE IV Last administered on 06/09/16 12:58; Admin Dose 1.87 MLS/HR; Start 06/09/16 at 10:00 Propofol 100 ml @ 3 mls/hr Q12H IV Last administered on 06/13/16 09:32; Admin Dose 15 MLS/HR; Start 06/09/16 at 06:30 Cefepime HCl (Maxipime 1gm/50 ml (Pmx)) 50 ml @ 100 mls/hr Q12 IVPB Last administered on 06/13/16 08:05; Admin Dose 100 MLS/HR; Start 06/09/16 at 12:00 IV Flush (NS 10 ml) 10 ml PRN PRN IV IV PROTOCOL; Start 06/09/16 at 17:00 Insulin Aspart (Novolog Insulin Pen) NOVOLOG *MILD* ALGORITHM Q6 SC Last administered on 06/11/16 23:36; Admin Dose 1 UNIT; Start 06/11/16 at 12:00 Diagnostic Test (Pha) 1 ea 1 ea 02 XX ; Start 06/12/16 at 02:00 Dextrose (D5W) 1,000 ml @ 100 mls/hr Q10H IV Last administered on 06/13/16 05: 11; Admin Dose 100 MLS/HR; Start 06/11/16 at 08:30 Miscellaneous Information 1 ea NOTE XX ; Start 06/11/16 at 08:30 Glucose (Glutose) 15 gm Q15M PRN PO DECREASED GLUCOSE; Start 06/11/16 at 08:30 Glucose (Glutose) 22.5 gm Q15M PRN PO DECREASED GLUCOSE; Start 06/11/16 at 08:30 Dextrose (D50w Syringe) 25 ml Q15M PRN IV DECREASED GLUCOSE; Start 06/11/16 at 08:30 Dextrose (D50w Syringe) 50 ml Q15M PRN IV DECREASED GLUCOSE; Start 06/11/16 at 08:30 Glucagon (Glucagen) 1 mg Q15M PRN IM DECREASED GLUCOSE; Start 06/11/16 at 08:30 Glucose (Glutose) 15 gm Q15M PRN BUCCAL DECREASED GLUCOSE; Start 06/11/16 at 08: 30 Rifaximin (Xifaxan) 550 mg BID PO Last administered on 06/13/16 08:06; Admin Dose 550 MG; Start 06/11/16 at 14:30 Pantoprazole (Protonix Iv) 40 mg BID@06,18 IV Last administered on 06/13/16 05: 51; Admin Dose 40 MG; Start 06/11/16 at 18:00 Furosemide (Lasix) 40 mg DAILY IV Last administered on 06/13/16 08:06; Admin Dose 40 MG; Start 06/12/16 at 13:00 Eye Lubricant (Artificial Tears Oph) 2 drop QID BOTH EYES Last administered on 06/13/16 12:27; Admin Dose 2 DROP; Start 06/12/16 at 13:00 Lactulose (Enulose) 30 gm Q8H PO Last administered on 06/12/16 20:30; Admin Dose 30 GM; Start 06/12/16 at 20:00 Hydralazine HCl (Apresoline) 10 mg Q2H PRN IV SBP>170; Start 06/12/16 at 17:00 DIOMEDES MOULTON Jun 13, 2016 13:50
[2016-06-13] MEDS ORDERED: METOPROLOL 5 MG INJ IV ONE (18:30)
--- NOTE | 2016-06-13 20:27 | CONS ---
Date/Time of Note Date/Time of Note DATE: 06/13/16 TIME: 20:24 Assessment/Plan Assessment/Plan Chief Complaint/Hosp Course Assessment and Plan: 1. 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 - continue Protonix 40 mg IV BID 2. Severe Anemia 2/2 #1-stable - monitor h/h. transfuse 2 units if hgb less than 7.5. 3. Decompensated Alcoholic Liver Cirrhosis with Encephalopathy. 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 - continue lactulose -Abd US shows no Ascites -pt last drink a year ago. Encouraged continued abstinence 4. Hypotension: 2/2 GI Bleed-resolved - cont IVF - pressors now off, DC'd Vanco as there is no e/o infection Problems: Consultation Date/Type/Reason Admit Date/Time Jun 09, 2016 at 04:01 Initial Consult Date 06/09/16 Type of Consultation: GI 24 HR Interval Summary Subjective hx not possible: pt non-verbal Exam/Review of Systems Vital Signs Vitals Vital Signs Date Time Temp Pulse Resp B/P Pulse Ox O2 Delivery O2 Flow Rate FiO2 06/13/16 19:10 114 14 99 40 06/13/16 19:00 134/64 Mechanical Ventilator 06/13/16 16:00 98.6 Intake and Output 06/12/16 06/12/16 06/13/16 15:00 23:00 07:00 Intake Total 1007.6 ml 1126.1 ml 918.5 ml Output Total 775 ml 1305 ml 640 ml Balance 232.6 ml -178.9 ml 278.5 ml Exam Constitutional: non-verbal Psych: confusion Head: atraumatic, normocephalic Eyes: nl conjunctiva, nl lids, nl sclera ENMT: mucosa pink and moist, nl external ears & nose, nl lips & teeth, nl nasal mucosa & septum Neck: non-tender, supple Respiratory: clear to auscultation, normal air movement Cardiovascular: nl pulses, regular rate and rhythm Gastrointestinal: bowel sounds, non-tender, soft Results Result Diagram: 06/13/16 0400 06/13/16 0400 Results 24 hrs Laboratory Tests Test 06/12/16 23:44 06/13/16 04:00 06/13/16 05:50 06/13/16 11:40 Bedside Glucose 103 109 99 Alanine Aminotransferase (ALT/SGPT) 139 H Albumin 2.4 L Albumin/Globulin Ratio 0.80 Alkaline Phosphatase 85 Ammonia 28 # Anion Gap 16 Aspartate Amino Transf (AST/SGOT) 96 H Basophils # 0.1 Basophils % 0.9 Blood Urea Nitrogen 29 H Calcium Level 7.8 L Carbon Dioxide Level 25 Chloride Level 108 Creatinine 0.89 Direct Bilirubin 0.00 Eosinophils # 0.6 H Eosinophils % 8.4 H Globulin 3.00 Glucose Level 97 Hematocrit 28.5 L Hemoglobin 8.9 L Indirect Bilirubin 0.8 Lymphocytes # 0.9 Lymphocytes % 11.6 L Magnesium Level 2.1 Mean Corpuscular Hemoglobin 27.5 L Mean Corpuscular Hemoglobin Concent 31.2 L Mean Corpuscular Volume 88.0 Mean Platelet Volume 10.9 H Monocytes # 0.9 Monocytes % 11.5 H Neutrophils # 5.0 Neutrophils % 66.9 Nucleated Red Blood Cells # 0.0 Nucleated Red Blood Cells % 0.0 Phosphorus Level 3.3 Platelet Count 110 L Potassium Level 3.7 Red Blood Count 3.24 L Red Cell Distribution Width 19.1 H Sodium Level 145 H Total Bilirubin 0.8 Total Protein 5.4 L White Blood Count 7.5 Test 06/13/16 17:34 Bedside Glucose 102 Medications Medications Current Medications Ondansetron HCl (Zofran Inj) 4 mg Q6H PRN IV NAUSEA AND/OR VOMITING; Start 06/09 at 04:30 Morphine Sulfate (morphine) 2 mg Q4H PRN IV PAIN LEVEL 7-10 Last administered on 06/12/16 04:12; Admin Dose 2 MG; Start 06/09/16 at 04:30 Lorazepam (Ativan) 1 mg Q2H PRN IV ANXIETY Last administered on 06/11/16 20:35 ; Admin Dose 1 MG; Start 06/09/16 at 04:30 Dutasteride (Avodart) 0.5 mg AM PO ; Start 06/09/16 at 09:00 Finasteride (Proscar) 5 mg AM PO Last administered on 06/13/16 08:06; Admin Dose 5 MG; Start 06/09/16 at 09:00 Levothyroxine Sodium 50 mcg 50 mcg DAILY@06 PO Last administered on 06/13/16 06 :01; Admin Dose 50 MCG; Start 06/09/16 at 06:00 Norepinephrine 16 mg/Dextrose 500 ml @ 1.87 mls/hr TITRATE IV Last administered on 06/09/16 12:58; Admin Dose 1.87 MLS/HR; Start 06/09/16 at 10:00 Propofol 100 ml @ 3 mls/hr Q12H IV Last administered on 06/13/16 16:45; Admin Dose 15 MLS/HR; Start 06/09/16 at 06:30 Cefepime HCl (Maxipime 1gm/50 ml (Pmx)) 50 ml @ 100 mls/hr Q12 IVPB Last administered on 06/13/16 08:05; Admin Dose 100 MLS/HR; Start 06/09/16 at 12:00 IV Flush (NS 10 ml) 10 ml PRN PRN IV IV PROTOCOL; Start 06/09/16 at 17:00 Insulin Aspart (Novolog Insulin Pen) NOVOLOG *MILD* ALGORITHM Q6 SC Last administered on 06/11/16 23:36; Admin Dose 1 UNIT; Start 06/11/16 at 12:00 Diagnostic Test (Pha) 1 ea 1 ea 02 XX ; Start 06/12/16 at 02:00 Dextrose (D5W) 1,000 ml @ 100 mls/hr Q10H IV Last administered on 06/13/16 14: 56; Admin Dose 100 MLS/HR; Start 06/11/16 at 08:30 Miscellaneous Information 1 ea NOTE XX ; Start 06/11/16 at 08:30 Glucose (Glutose) 15 gm Q15M PRN PO DECREASED GLUCOSE; Start 06/11/16 at 08:30 Glucose (Glutose) 22.5 gm Q15M PRN PO DECREASED GLUCOSE; Start 06/11/16 at 08:30 Dextrose (D50w Syringe) 25 ml Q15M PRN IV DECREASED GLUCOSE; Start 06/11/16 at 08:30 Dextrose (D50w Syringe) 50 ml Q15M PRN IV DECREASED GLUCOSE; Start 06/11/16 at 08:30 Glucagon (Glucagen) 1 mg Q15M PRN IM DECREASED GLUCOSE; Start 06/11/16 at 08:30 Glucose (Glutose) 15 gm Q15M PRN BUCCAL DECREASED GLUCOSE; Start 06/11/16 at 08: 30 Rifaximin (Xifaxan) 550 mg BID PO Last administered on 06/13/16 08:06; Admin Dose 550 MG; Start 06/11/16 at 14:30 Pantoprazole (Protonix Iv) 40 mg BID@06,18 IV Last administered on 06/13/16 17: 25; Admin Dose 40 MG; Start 06/11/16 at 18:00 Furosemide (Lasix) 40 mg DAILY IV Last administered on 06/13/16 08:06; Admin Dose 40 MG; Start 06/12/16 at 13:00 Eye Lubricant (Artificial Tears Oph) 2 drop QID BOTH EYES Last administered on 06/13/16 16:18; Admin Dose 2 DROP; Start 06/12/16 at 13:00 Lactulose (Enulose) 30 gm Q8H PO Last administered on 06/12/16 20:30; Admin Dose 30 GM; Start 06/12/16 at 20:00 Hydralazine HCl (Apresoline) 10 mg Q2H PRN IV SBP>170; Start 06/12/16 at 17:00 ARMANI VALLADARES MD Jun 13, 2016 20:27
[2016-06-13] MEDS: AMIODARONE 200 MG TAB NGT SCH (22:27)
--- NOTE | 2016-06-13 22:44 | SP ---
DATE OF PROCEDURE: NAME OF PROCEDURE: Electroencephalogram. REFERRING PHYSICIAN: Dr. Sears. TECHNIQUE: EEG done using 10-20 International electrode system with photic stimulation. FINDINGS: Bilateral occipital hemisphere view shows delta and theta waves, medium sized, low amplit ude, asymmetric, bilateral. Photic stimulation done did elicit a drive. No epileptiform discharge or seizure activity is recorded. IMPRESSION: This is an abnormal electroencephalogram, showed generalized slowing consistent with a history of underlying encephalopathy. No epileptiform discharge or seizure activity is recorded. F ollowup EEG may be needed if clinically indicated. Again, thank you for asking me to see the patient with you. Dictated By: THEODORE THOMAS MD NA/NTS Conf#: [id number] DID#: [id number] CC: MONTY SEARS MD;*[facility]*
--- NOTE | 2016-06-13 22:59 | CONS ---
DATE OF ADMISSION: 06/09/2016 DATE OF CONSULTATION: REFERRING PHYSICIAN: Dr. Sears Thank you for asking me to see the patient with you. HISTORY OF PRESENT ILLNESS: The patient is a 71-year-old male who has a past medical history of damián er cirrhosis. The patient presented with portal hypertension, GI bleed, decreased mini mental statu s, in which I got a call about him for more evaluation and treatment. MEDICATIONS: Upon admission, which include: 1. Lactulose 30 g every 8 hours. 2. Lasix 40 mg once a day. 3. Protonix 40 mg once a day. 4. cefepime 50 mL/100 mg per hour every 12h IV piggyback twice a day. 5. Avodart 0.5 mg once a day. 6. Proscar 5 mg once a day. 7. Propofol titration. 8. Synthroid 50 mcg once a day. 9. Zofran 4 mg every 6 hours as needed. 10. Albuterol every 2 hours as needed. 11. Atrovent every 8 hours as needed. 12. Morphine sulfate 2 mg every 4 hours ____. 13. Ativan 1 mg every ____ hours for anxiety. PAST MEDICAL HISTORY: As above, which includes hepatic cell failure, severe anemia, GI bleed, alcoh ol use, hypotension, hypothyroidism. PHYSICAL EXAMINATION: GENERAL: On exam today, the patient does not follow any commands. He is under propofol and intubat ed with difficult to comment about his status. However, he does not follow any verbal commands. CRANIAL NERVES: Cranial nerve II: Pupils equal on both sides, reactive to light. Cranial nerves I II, IV, and : Extraocular muscles intact. No nystagmus. Cranial nerve V: Equal sensation to fa ce. Cranial nerve VII: Symmetrical face. Cranial nerve VIII: Decreased hearing bilaterally. Occupational Therapy Program Director nial nerve IX through XII: Could not assess. MOTOR: Slight movement for painful stimuli with grimaces. COORDINATION AND GAIT: Could not assess. ABDOMEN: Distended. HEART: Regular rate and rhythm. LUNGS: Equal breath sounds. ASSESSMENT AND PLAN: 1. The patient is 71 years old with underlying acute encephalopathy. 2. Possibility of toxic metabolic secondary to liver cell failure. Follow up the patient with elec troencephalogram, which showed generalized slowing consistent with a history of underlying acute enc ephalopathy. No seizure activity is recorded on the EEG. 3. Keep the patient under deep venous thrombosis prophylaxis as well as decubitus ulcer prophylaxis . Again, thank you for asking me to see the patient with you. Dictated By: THEODORE THOMAS MD NA/NTS Conf#: [id number] DID#: [id number] CC: MONTY SEARS MD;*End*
[2016-06-14] VITALS (37 sets, daily range): BP systolic 102–143; BP diastolic 55–84; PULSE 64–134; RESP 12–16
[2016-06-14] MEDS: DEXTROSE 5% 1,000 ML IV SCH ×5 (00:10→20:27)
[2016-06-14] MEDS: ACCU-CHEK XX SCH (00:28)
[2016-06-14] MEDS: PROPOFOL 100 ML IV SCH ×3 (03:43→20:24)
[2016-06-14] MEDS: LACTULOSE 30ML CUP PO SCH ×4 (04:00→20:24)
[2016-06-14 04:50] LABS: AADO2 Arterial 111.6 mmHg (7.0-24.0); Allen Test ACCEPTAB; Arterial Base Excess 1.5 mmol/L (-3.0-3); Arterial COHb 0.3 % (0.0-3.0); Arterial Fraction of Oxyhgb 97.5 % (93.0-99.0); Arterial HCO3 25.1 mmol/L (22.0-26.0); Arterial MetHb 0.4 % (0.0-1.5); Arterial Total Hemglobin 10.4 g/dl (12.0-18.0); MODE VENT - AC
[2016-06-14] MEDS: PANTOPRAZOLE 40 MG INJ IV SCH ×2 (05:51→17:26)
[2016-06-14] MEDS: LEVOTHYROXINE 50 MCG TAB PO SCH (05:51)
[2016-06-14] MEDS: INSULIN ASPART [NOVOLOG] 3 ML PEN SC SCH ×4 (05:58→17:38)
[2016-06-14 05:59] LABS: ADD SCAN DIFF NO
[2016-06-14 06:10] LABS: BASOPHIL # 0.1 10^3/ul (0.0-0.1); BASOPHILS % 1.1 % (0.0-2.0); EOSINOPHILS # 0.7 10^3/ul (0.0-0.5); EOSINOPHILS % 10.3 % (0.0-7.0); HEMATOCRIT 30.4 % (42.0-52.0); HEMOGLOBIN 9.3 g/dl (14.0-18.0); LYMPHOCYTES # 0.8 10^3/ul (0.8-2.9); MEAN CORPUSCULAR HEMOGLOBIN 27.3 pg (29.0-33.0); MEAN CORPUSCULAR HGB CONC 30.6 g/dl (32.0-37.0); MEAN CORPUSCULAR VOLUME 89.1 fl (82.0-101.0); MEAN PLATELET VOLUME 11.2 fl (7.4-10.4); MONOCYTE # 0.8 10^3/ul (0.3-0.9); MONOCYTES % 12.2 % (0.0-11.0); NEUTROPHIL # 4.1 10^3/ul (1.6-7.5); NEUTROPHILS % 62.8 % (39.0-77.0); PLATELET COUNT 122 10^3/UL (140-415); RED BLOOD COUNT 3.41 10^6/ul (4.70-6.10); RED CELL DISTRIBUTION WIDTH 18.5 % (11.5-14.5); WHITE BLOOD COUNT 6.5 10^3/ul (4.8-10.8)
[2016-06-14 06:14] LABS: POTASSIUM 3.6 mmol/L (3.5-5.1)
[2016-06-14 06:16] LABS: CREATININE 0.92 mg/dl (0.61-1.24)
[2016-06-14 06:17] LABS: CALCIUM 8.1 mg/dl (8.4-10.2)
--- NOTE | 2016-06-14 07:19 | RADRPT ---
PROCEDURE: XR Chest. CLINICAL INDICATION: Shortness of breath. TECHNIQUE: Single frontal view. COMPARISON: 06/12/2016. FINDINGS: The endotracheal tube, nasogastric tube, and left arm PICC line remain in satisfactory position. Th ere is mild atelectasis at the lung bases, unchanged. Mild pulmonary edema is unchanged. The heart is enlarged. There is calcification in the aorta consistent with atherosclerosis. There is no pleural effusion. There is no pneumothorax. IMPRESSION: 1. Unchanged pulmonary edema. 2. Tubes and lines unchanged. 3. No change from 06/12/2016. RPTAT: QQ .Emmanuel Murillo MD, MD Date Time Electronically viewed and signed by .Emmanuel Murillo MD, MD on 06/14/2016 07:18 .R/
[2016-06-14] MEDS: RIFAXIMIN 550 MG TAB PO SCH ×2 (08:19→20:26)
[2016-06-14] MEDS: AMIODARONE 200 MG TAB NGT SCH ×2 (08:19→20:26)
[2016-06-14] MEDS: FUROSEMIDE 40 MG INJ IV SCH (08:19)
[2016-06-14] MEDS: FINASTERIDE 5 MG TAB PO SCH (08:19)
[2016-06-14] MEDS: CEFEPIME 1GM/50 ML (PMX) 50 ML IVPB SCH ×2 (08:20→20:26)
--- NOTE | 2016-06-14 08:39 | CONS ---
Date/Time of Note Date/Time of Note DATE: 06/14/16 TIME: 08:36 Assessment/Plan Assessment/Plan Additional Assessment/Plan Ventilator settings; AC of 12, tidal volume 650, PEEP of 5, 40% FiO2. Chest x-ray was reviewed from today which is showing left lower lobe infiltrative changes Assessment recommendations; 1. Patient admitted with upper GI bleed status post endoscopy with banding of esophageal varices. Hematocrit is stable without any further bleed. 2. Left lower lobe pneumonia, likely aspiration. 3. History of cirrhosis of liver. 4. History of hypothyroidism. 5. Patient admitted with metabolic acidosis with interval resolution. 6. Mild thrombocytopenia. 7. Possibly some element of alcoholic encephalopathy. Continue current treatment. Continue to hold sedation as tolerated. Weaning from ventilator will depend upon adequate mental status recovery. Consultation Date/Type/Reason Admit Date/Time Jun 09, 2016 at 04:01 Initial Consult Date 06/09/16 Type of Consultation: Pulmonary/critical care 24 HR Interval Summary Free Text/Dictation Patient condition remains critical. Still requiring full ventilator support. Patient sedation has been stopped about an hour ago and the patient still not arousable. Patient has been given multiple sedation medications however he becomes agitated and has to be re-sedated. Patient however has remained hemodynamically stable. General examination; middle-aged man, on ventilator via endotracheal tube. Currently unresponsive. Exam/Review of Systems Vital Signs Vitals Vital Signs Date Time Temp Pulse Resp B/P Pulse Ox O2 Delivery O2 Flow Rate FiO2 06/14/16 08:09 127 15 100 40 06/14/16 08:00 98.4 116/64 Mechanical Ventilator Intake and Output 06/13/16 06/13/16 06/14/16 15:00 23:00 07:00 Intake Total 961 ml 1077 ml 1050 ml Output Total 2715 ml 950 ml 495 ml Balance -1754 ml 127 ml 555 ml Exam HEENT examination; supple neck, no JVD. No lymphadenopathy. Midline trachea. Patient is mildly icteric. There was a midsize and reactive to light. No neck masses. Dentition is fair. Orally intubated. Chest examination; diminished breath on lung bases. Upper lobes are clear bilaterally. S1-S2 audible, no murmurs. Regular rhythm. Abdomen examination; soft, protuberant. Bowel sounds audible. Umbilicus is flat. There is no organomegaly. There is no scrotal edema. Extremity examination; no peripheral edema. Pulses 1+ bilaterally. 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 Results Result Diagram: 06/14/16 0440 06/14/16 0440 Results 24 hrs Laboratory Tests Test 06/13/16 11:40 06/13/16 17:34 06/14/16 00:09 06/14/16 04:40 Bedside Glucose 99 102 121 Anion Gap 14 Basophils # 0.1 Basophils % 1.1 Blood Urea Nitrogen 23 H Calcium Level 8.1 L Carbon Dioxide Level 28 Chloride Level 108 Creatinine 0.92 Eosinophils # 0.7 H Eosinophils % 10.3 H Glucose Level 94 Hematocrit 30.4 L Hemoglobin 9.3 L Lymphocytes # 0.8 Lymphocytes % 13.0 L Mean Corpuscular Hemoglobin 27.3 L Mean Corpuscular Hemoglobin Concent 30.6 L Mean Corpuscular Volume 89.1 Mean Platelet Volume 11.2 H Monocytes # 0.8 Monocytes % 12.2 H Neutrophils # 4.1 Neutrophils % 62.8 Nucleated Red Blood Cells # 0.0 Nucleated Red Blood Cells % 0.0 Platelet Count 122 L Potassium Level 3.6 Red Blood Count 3.41 L Red Cell Distribution Width 18.5 H Sodium Level 146 H White Blood Count 6.5 Test 06/14/16 05:00 06/14/16 05:57 Arterial Blood HCO3 25.1 Arterial Blood Base Excess 1.5 Arterial Blood Oxygen Saturation 98.2 Adelso Test ACCEPTAB Arterial Blood Gas Puncture Site Left Radial Arterial Blood Carboxyhemoglobin 0.3 Arterial Blood Date Drawn 06/14/2016 4:31:36 AM Arterial Blood Methemoglobin 0.4 Arterial Blood pCO2 (Temp correct) 35.5 Arterial Blood pH (Temp corrected) 7.467 H Arterial Blood pO2 (Temp corrected) 132.8 H Blood Gas A-a O2 Differential 111.6 H Blood Gas Actual Respiration Rate 15 Blood Gas Inspiratory Pressure 26.0 Blood Gas Low PEEP Setting 5.0 Blood Gas Modality VENT - AC Blood Gas Notified Time 06/14/2016 4:50:34 AM Blood Gas Notified Whom RTR Blood Gas Respiration Rate 12.0 Blood Gas Specimen Source Blood arterial Blood Gas Temperature 37.0 Blood Gas Tidal Volume 650.0 FiO2 40.0 Oxyhemoglobin Percent 97.5 Total Hemoglobin 10.4 L Bedside Glucose 98 Medications Medications Current Medications Ondansetron HCl (Zofran Inj) 4 mg Q6H PRN IV NAUSEA AND/OR VOMITING; Start 06/09 at 04:30 Morphine Sulfate (morphine) 2 mg Q4H PRN IV PAIN LEVEL 7-10 Last administered on 06/12/16 04:12; Admin Dose 2 MG; Start 06/09/16 at 04:30 Lorazepam (Ativan) 1 mg Q2H PRN IV ANXIETY Last administered on 06/11/16 20:35 ; Admin Dose 1 MG; Start 06/09/16 at 04:30 Dutasteride (Avodart) 0.5 mg AM PO ; Start 06/09/16 at 09:00 Finasteride (Proscar) 5 mg AM PO Last administered on 06/14/16 08:19; Admin Dose 5 MG; Start 06/09/16 at 09:00 Levothyroxine Sodium 50 mcg 50 mcg DAILY@06 PO Last administered on 06/14/16 05 :51; Admin Dose 50 MCG; Start 06/09/16 at 06:00 Norepinephrine 16 mg/Dextrose 500 ml @ 1.87 mls/hr TITRATE IV Last administered on 06/09/16 12:58; Admin Dose 1.87 MLS/HR; Start 06/09/16 at 10:00 Propofol 100 ml @ 3 mls/hr Q12H IV Last administered on 06/14/16 03:43; Admin Dose 12 MLS/HR; Start 06/09/16 at 06:30 Cefepime HCl (Maxipime 1gm/50 ml (Pmx)) 50 ml @ 100 mls/hr Q12 IVPB Last administered on 06/14/16 08:20; Admin Dose 100 MLS/HR; Start 06/09/16 at 12:00 IV Flush (NS 10 ml) 10 ml PRN PRN IV IV PROTOCOL; Start 06/09/16 at 17:00 Insulin Aspart (Novolog Insulin Pen) NOVOLOG *MILD* ALGORITHM Q6 SC Last administered on 06/11/16 23:36; Admin Dose 1 UNIT; Start 06/11/16 at 12:00 Diagnostic Test (Pha) 1 ea 1 ea 02 XX ; Start 06/12/16 at 02:00 Dextrose (D5W) 1,000 ml @ 100 mls/hr Q10H IV Last administered on 06/14/16 00: 10; Admin Dose 100 MLS/HR; Start 06/11/16 at 08:30 Miscellaneous Information 1 ea NOTE XX ; Start 06/11/16 at 08:30 Glucose (Glutose) 15 gm Q15M PRN PO DECREASED GLUCOSE; Start 06/11/16 at 08:30 Glucose (Glutose) 22.5 gm Q15M PRN PO DECREASED GLUCOSE; Start 06/11/16 at 08:30 Dextrose (D50w Syringe) 25 ml Q15M PRN IV DECREASED GLUCOSE; Start 06/11/16 at 08:30 Dextrose (D50w Syringe) 50 ml Q15M PRN IV DECREASED GLUCOSE; Start 06/11/16 at 08:30 Glucagon (Glucagen) 1 mg Q15M PRN IM DECREASED GLUCOSE; Start 06/11/16 at 08:30 Glucose (Glutose) 15 gm Q15M PRN BUCCAL DECREASED GLUCOSE; Start 06/11/16 at 08: 30 Rifaximin (Xifaxan) 550 mg BID PO Last administered on 06/14/16 08:19; Admin Dose 550 MG; Start 06/11/16 at 14:30 Pantoprazole (Protonix Iv) 40 mg BID@06,18 IV Last administered on 06/14/16 05: 51; Admin Dose 40 MG; Start 06/11/16 at 18:00 Furosemide (Lasix) 40 mg DAILY IV Last administered on 06/14/16 08:19; Admin Dose 40 MG; Start 06/12/16 at 13:00 Eye Lubricant (Artificial Tears Oph) 2 drop QID BOTH EYES Last administered on 06/13/16 20:36; Admin Dose 2 DROP; Start 06/12/16 at 13:00 Lactulose (Enulose) 30 gm Q8H PO Last administered on 06/13/16 20:00; Admin Dose 30 GM; Start 06/12/16 at 20:00 Hydralazine HCl (Apresoline) 10 mg Q2H PRN IV SBP>170; Start 06/12/16 at 17:00 Amiodarone HCl (Cordarone) 400 mg DAILY NGT Last administered on 06/14/16 08:19 ; Admin Dose 400 MG; Start 06/13/16 at 22:30 LEE ANN LEROY Jun 14, 2016 08:39
[2016-06-14] MEDS: DUTASTERIDE 0.5 MG CAP PO SCH (09:00)
[2016-06-14] MEDS: ARTIFICIAL TEARS 15 ML OPH BOTH EYES SCH ×4 (09:00→20:27)
[2016-06-14] MEDS: morphine 2 MG INJ IV PRN (09:40)
--- NOTE | 2016-06-14 11:05 | PN ---
Date/Time of Note Date/Time of Note DATE: 06/14/16 TIME: 11:02 Assessment/Plan VTE Prophylaxis VTE Prophylaxis Intervention: SCD's Lines/Catheters IV Catheter Type (from Nrs): PICC Line Central line still needed: Yes (IV access for abx and pressors ) Urinary Cath still in place: Yes Reason Cath still needed: other (indicate) (strict I/O, pt intubated with hepatic failure ) Assessment/Plan Assessment/Plan 1. 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 Severe Anemia 2/2 #1-stable 3. Decompensated Alcoholic Liver Cirrhosis with Encephalopathy -Increased Lactulose dose yesterday and Ammonia has decreased but still obtunded when off sedation and fighting the vent hence Propofol was restarted, cont sedation vacations -Abd US shows no Ascites -Hep panel shows Hx of Exposure to Hep B but no active infection -pt last drink a year ago, encouraged continued abstinence 4. Hypotension: 2/2 GI Bleed-resolved - cont IVF - pressors now off, DC'd Vanco as there is no e/o infection 5. Low TSH 2/2 sick euthyroid -T4 is nl 6. Resp Failure -weaning trials when mentation improved, Propofol restarted 2/2 pt fighting the vent when off sedation PPx-SCDs Subjective 24 Hr Interval Summary Free Text/Dictation pt remains intubated, ammonia stable but still pt is not waking up Exam/Review of Systems Vital Signs Vitals Vital Signs Date Time Temp Pulse Resp B/P Pulse Ox O2 Delivery O2 Flow Rate FiO2 06/14/16 10:56 76 14 98 30 06/14/16 10:00 143/67 Mechanical Ventilator 06/14/16 08:00 98.4 Intake and Output 06/13/16 06/13/16 06/14/16 15:00 23:00 07:00 Intake Total 961 ml 1077 ml 1050 ml Output Total 2715 ml 950 ml 495 ml Balance -1754 ml 127 ml 555 ml Exam Constitutional: non-verbal ENMT: intubated Respiratory: clear to auscultation Cardiovascular: regular rate and rhythm Gastrointestinal: distended, soft Extremities: edema Results Result Diagram: 3/6/17 0440 3/6/17 0440 Results 24 hrs Laboratory Tests Test 06/13/16 11:40 06/13/16 17:34 06/14/16 00:09 06/14/16 04:40 Bedside Glucose 99 102 121 Anion Gap 14 Basophils # 0.1 Basophils % 1.1 Blood Urea Nitrogen 23 H Calcium Level 8.1 L Carbon Dioxide Level 28 Chloride Level 108 Creatinine 0.92 Eosinophils # 0.7 H Eosinophils % 10.3 H Glucose Level 94 Hematocrit 30.4 L Hemoglobin 9.3 L Lymphocytes # 0.8 Lymphocytes % 13.0 L Mean Corpuscular Hemoglobin 27.3 L Mean Corpuscular Hemoglobin Concent 30.6 L Mean Corpuscular Volume 89.1 Mean Platelet Volume 11.2 H Monocytes # 0.8 Monocytes % 12.2 H Neutrophils # 4.1 Neutrophils % 62.8 Nucleated Red Blood Cells # 0.0 Nucleated Red Blood Cells % 0.0 Platelet Count 122 L Potassium Level 3.6 Red Blood Count 3.41 L Red Cell Distribution Width 18.5 H Sodium Level 146 H White Blood Count 6.5 Test 06/14/16 05:00 06/14/16 05:57 06/14/16 09:51 06/14/16 09:57 Arterial Blood HCO3 25.1 Arterial Blood Base Excess 1.5 Arterial Blood Oxygen Saturation 98.2 Adelso Test ACCEPTAB Arterial Blood Gas Puncture Site Left Radial Arterial Blood Carboxyhemoglobin 0.3 Arterial Blood Date Drawn 06/14/2016 4:31:36 AM Arterial Blood Methemoglobin 0.4 Arterial Blood pCO2 (Temp correct) 35.5 Arterial Blood pH (Temp corrected) 7.467 H Arterial Blood pO2 (Temp corrected) 132.8 H Blood Gas A-a O2 Differential 111.6 H Blood Gas Actual Respiration Rate 15 Blood Gas Inspiratory Pressure 26.0 Blood Gas Low PEEP Setting 5.0 Blood Gas Modality VENT - AC Blood Gas Notified Time 06/14/2016 4:50:34 AM Blood Gas Notified Whom RTR Blood Gas Respiration Rate 12.0 Blood Gas Specimen Source Blood arterial Blood Gas Temperature 37.0 Blood Gas Tidal Volume 650.0 FiO2 40.0 Oxyhemoglobin Percent 97.5 Total Hemoglobin 10.4 L Bedside Glucose 98 Lab Scanned Report REFERENCE LAB REFERENCE LAB Medications Medications Current Medications Ondansetron HCl (Zofran Inj) 4 mg Q6H PRN IV NAUSEA AND/OR VOMITING; Start 06/09 at 04:30 Morphine Sulfate (morphine) 2 mg Q4H PRN IV PAIN LEVEL 7-10 Last administered on 06/14/16 09:40; Admin Dose 2 MG; Start 06/09/16 at 04:30 Lorazepam (Ativan) 1 mg Q2H PRN IV ANXIETY Last administered on 06/11/16 20:35 ; Admin Dose 1 MG; Start 06/09/16 at 04:30 Dutasteride (Avodart) 0.5 mg AM PO ; Start 06/09/16 at 09:00 Finasteride (Proscar) 5 mg AM PO Last administered on 06/14/16 08:19; Admin Dose 5 MG; Start 06/09/16 at 09:00 Levothyroxine Sodium 50 mcg 50 mcg DAILY@06 PO Last administered on 06/14/16 05 :51; Admin Dose 50 MCG; Start 06/09/16 at 06:00 Norepinephrine 16 mg/Dextrose 500 ml @ 1.87 mls/hr TITRATE IV Last administered on 06/09/16 12:58; Admin Dose 1.87 MLS/HR; Start 06/09/16 at 10:00 Propofol 100 ml @ 3 mls/hr Q12H IV Last administered on 06/14/16 03:43; Admin Dose 12 MLS/HR; Start 06/09/16 at 06:30 Cefepime HCl (Maxipime 1gm/50 ml (Pmx)) 50 ml @ 100 mls/hr Q12 IVPB Last administered on 06/14/16 08:20; Admin Dose 100 MLS/HR; Start 06/09/16 at 12:00 IV Flush (NS 10 ml) 10 ml PRN PRN IV IV PROTOCOL; Start 06/09/16 at 17:00 Insulin Aspart (Novolog Insulin Pen) NOVOLOG *MILD* ALGORITHM Q6 SC Last administered on 06/11/16 23:36; Admin Dose 1 UNIT; Start 06/11/16 at 12:00 Diagnostic Test (Pha) 1 ea 1 ea 02 XX ; Start 06/12/16 at 02:00 Dextrose (D5W) 1,000 ml @ 100 mls/hr Q10H IV Last administered on 06/14/16 10: 00; Admin Dose 100 MLS/HR; Start 06/11/16 at 08:30 Miscellaneous Information 1 ea NOTE XX ; Start 06/11/16 at 08:30 Glucose (Glutose) 15 gm Q15M PRN PO DECREASED GLUCOSE; Start 06/11/16 at 08:30 Glucose (Glutose) 22.5 gm Q15M PRN PO DECREASED GLUCOSE; Start 06/11/16 at 08:30 Dextrose (D50w Syringe) 25 ml Q15M PRN IV DECREASED GLUCOSE; Start 06/11/16 at 08:30 Dextrose (D50w Syringe) 50 ml Q15M PRN IV DECREASED GLUCOSE; Start 06/11/16 at 08:30 Glucagon (Glucagen) 1 mg Q15M PRN IM DECREASED GLUCOSE; Start 06/11/16 at 08:30 Glucose (Glutose) 15 gm Q15M PRN BUCCAL DECREASED GLUCOSE; Start 06/11/16 at 08: 30 Rifaximin (Xifaxan) 550 mg BID PO Last administered on 06/14/16 08:19; Admin Dose 550 MG; Start 06/11/16 at 14:30 Pantoprazole (Protonix Iv) 40 mg BID@06,18 IV Last administered on 06/14/16 05: 51; Admin Dose 40 MG; Start 06/11/16 at 18:00 Furosemide (Lasix) 40 mg DAILY IV Last administered on 06/14/16 08:19; Admin Dose 40 MG; Start 06/12/16 at 13:00 Eye Lubricant (Artificial Tears Oph) 2 drop QID BOTH EYES Last administered on 06/13/16 20:36; Admin Dose 2 DROP; Start 06/12/16 at 13:00 Lactulose (Enulose) 30 gm Q8H PO Last administered on 06/13/16 20:00; Admin Dose 30 GM; Start 06/12/16 at 20:00 Hydralazine HCl (Apresoline) 10 mg Q2H PRN IV SBP>170; Start 06/12/16 at 17:00 Amiodarone HCl (Cordarone) 400 mg DAILY NGT Last administered on 06/14/16 08:19 ; Admin Dose 400 MG; Start 06/13/16 at 22:30 Metoprolol Tartrate (Lopressor) 5 mg Q6H PRN IV HR>130; Start 06/14/16 at 09:00 MAURY BENITEZ MD Jun 14, 2016 11:04
--- NOTE | 2016-06-14 13:18 | CONS ---
DATE OF ADMISSION: 06/09/2016 DATE OF CONSULTATION: 06/14/2016 By history, this is a 71-year-old gentleman who was admitted to [facility] 017. ADMITTING DIAGNOSIS: Toxic encephalopathy, possibly related to liver failure. The patient is in the intensive care unit. He is intubated, receiving broad spectrum IV antibiotic coverage. He has been seen by multiple different consultants including pulmonary medicine, renal, G I. Patient has had an EGD done by Dr. Arce, which showed active bleeding and esophageal varices, post-endoscopic variceal ligation, and cessation of bleeding. Large amounts of blood and clots in t he stomach. No active bleeding or potential bleeding present. The pylorus appears patent, and duod enum with no lesions. Patient has been ruled out for hepatitis B. He has exposure, but not active disease. He has been given a sedation holiday, but has failed, became agitated, tried to pull out t he tube, required sedation once again. Fluid and electrolyte abnormalities have been corrected. I am asked to participate with ongoing communication between family members. MEDICATIONS: Please refer to reconciliation sheets. ALLERGIES: IBUPROFEN. OTHER MAJOR MEDICAL PROBLEMS IN THE PAST: In reviewing patient's history, we have an incomplete ese abase. SOCIAL HISTORY: Sober, last drink a year ago. Former smoker, according to medical records. FAMILY HISTORY: Noncontributory. REVIEW OF SYSTEMS: Cannot be obtained. PHYSICAL EXAMINATION: GENERAL: Shows an intubated, somewhat obese appearing gentleman. HEENT: He is normocephalic and atraumatic. Anicteric, acyanotic on examination. VITAL SIGNS: Blood pressure 122/60, pulse of 83 and regular, respirations varying between 13 and 15 , 99% saturation on 30% FIO2. HEENT: He is normocephalic and atraumatic, anicteric, acyanotic. CHEST: Shows distant breath sounds throughout both lung gomez. COR: S1, S2, without S3, S4, murmur, gallop, rub. Normal rate, normal rhythm. ABDOMEN: Distended, active bowel sounds. EXTREMITIES: Bilateral lower extremities, 2+ edema. ASSESSMENT AND PLAN: A family conference was done with patient's son at the bedside. 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 I did not address the issue of alcohol use in the past. His son is seen to be somewhat in denial of his father's critical condition. He had multiple questions in terms of antibiotics and requested that w e backed off on sedation. I did explain that that is not possible, but he will be given sedation ho lidays to see whether or not he is able to progress with weaning. We went over the critical care th at he is receiving at this time. I have asked him to contact patient's , his mother, and there is another sibling, and to have a family conference. I did tell him that this may be a prolonged, v nancy difficult hospitalization for patient and his family. Dictated By: SHERIF GOMES MD, LP/RICK Conf#: [id number] DID#: [id number]
--- NOTE | 2016-06-14 17:00 | CONS ---
DATE OF ADMISSION: 06/09/2016 DATE OF CONSULTATION: 06/14/2016 REASON FOR CONSULTATION: Paroxysmal atrial fibrillation/atrial flutter with rapid ventricular respo nse. REQUESTING PHYSICIAN: Maury Collins MD HISTORY OF PRESENT ILLNESS: Patient is a 71-year-old male with a history of hypertension, hypothyro idism, ETOH abuse with secondary liver cirrhosis, who presented with hematemesis. Patient since adm it has required intubation and admit to the ICU. Patient has been consulted by GI doctors and under went EGD, revealing active bleeding, esophageal varices, and underwent banding and ligation of these varices. Patient, in the setting of bleeding, did develop hypotension requiring pressor support, w hich is now improved with IV fluid and transfusion of packed RBCs. In addition, the patient's initi al hemoglobin was 4.5 and most recently has been 9.3. Today, patient has been monitored on telemetr y with an episode of atrial fibrillation/atrial flutter with rapid ventricular response. Given thes e findings, cardiac consultation has been requested. PAST MEDICAL HISTORY: As above in HPI. MEDICATIONS CURRENTLY IN HOSPITAL: 1. Metoprolol 5 mg q.6 p.r.n. 2. Amiodarone 400 mg daily. 3. Lactulose 30 grams q.8. 4. Lasix 40 mg IV daily. 5. Protonix 40 mg IV b.i.d. 6. Rifaximin. 7. Dutasteride. 8. Proscar. 9. Propofol. 10. Synthroid. 11. Albuterol. 12. Atrovent. 13. Morphine. ALLERGIES: IBUPROFEN. SOCIAL HISTORY: Positive ETOH abuse. Positive tobacco intake; none currently. No illicit drug use. FAMILY HISTORY: No history of sudden cardiac or early CAD. REVIEW OF SYSTEMS: As noted in HPI. CONSTITUTIONAL: No fevers, chills. PULMONARY: Respiratory failure, status post intubation. GASTROINTESTINAL: GI bleed, cirrhosis. GENITOURINARY: No hematuria. MUSCULOSKELETAL: Degenerative joint disease. PSYCHIATRIC: No documented psych history. NEUROLOGIC: Altered mental state. ENDOCRINE: Positive history of thyroid disease. PHYSICAL EXAMINATION: VITAL SIGNS: Temperature 98.5, blood pressure 120/63, pulse 75, respiratory rate 13, saturation 99% . GENERAL: The patient is intubated, sedated. NECK: JVP approximately 8 cm of water. CHEST: Upper airway transmitted rhonchorous sounds. HEART: Regular rate and rhythm. Normal S1, S2. I/ systolic murmur, nondisplaced PMI. ABDOMEN: Positive bowel sounds, soft. EXTREMITIES: No pitting edema, 1+ pulses bilaterally posterior tibial. LABORATORY DATA: As above in HPI, with most recent from today, sodium 146, potassium 3.6, creatinin e 0.9, BUN of 23. White blood cell count 6.5, hemoglobin 9.3, platelet count 122. UA negative. Se rology for hepatitis serologies with hep B core antibody positive. ABG revealing a pH of 7.467, a P aO2 of 132, a pCO2 of 35. ELECTROCARDIOGRAM: Dated 06/09 revealed sinus tachycardia, rate 107, normal axis, inferior Qs. IMPRESSION: 1. Paroxysmal atrial fibrillation/atrial flutter, now back in sinus rhythm. 2. Abnormal electrocardiogram. Assess for acute coronary syndrome. 3. Hypotension, now improved. 4. Gastrointestinal bleed. 5. Cirrhosis. 6. Encephalopathy. 7. Anemia, severe, status post transfusions. 8. Hypernatremia. 9. Coagulopathy RECOMMENDATIONS: 1. At this time, would maintain the patient on telemetry monitoring to follow rhythm and rate contr ol closely. 2. Would continue the patient's amiodarone at this time in an attempt to maintain sinus rhythm, and will initiate patient on low-dose beta yoan as tolerated and as possible. 3. Will hold on any anticoagulation at this time given the GI bleed and varices status post banding . 4. Check a 2D echocardiogram to further assess patient's ejection fraction, wall motion, and any ma priscilla valve abnormalities. 5. Continue the patient's IV push beta yoan as necessary. 6. Follow the patient's INR closely. 7. Continue patient's lactulose. Follow mental status closely. 8. Continue patient's gentle Lasix diuresis. Thank you for allowing me to take part in the care of this patient. I will continue to follow him leticia cruz closely with you. Further recommendations to be made as the patient progresses through his [facility] clinical course. Dictated By: ANGELES EDWARDS/RICK Conf#: [id number] DID#: [id number] CC: MAURY COLLINS MD; MONTY SEARS MD;*[facility]*
--- NOTE | 2016-06-14 17:52 | RADRPT ---
Echocardiogram Report Patient Name: SUKHDEV GARVEY Gender: Male Date: 1945 Study Date: 14-Jun-2016 Chemical Equipment Repairer: Padmini Pinzon [facility] Location: 110 Ref. Physician: MAURY BENITEZ Quality: Good Procedures: Transthoracic echocardiogram with complete 2D, M-Mode, and doppler examination. Indications: Atrial Fibrillation. 2D/M Mode Doppler Measurement Value Normal Ranges Measurement Value Normal Ranges LVIDd 2D 5.0 3.5 - 5.6 cm AV Peak David 1.6 m/sec LVIDs 2D 2.3 2.1 - 4.1 cm AV Peak PG 10.4 mmHg LVPWd 2D 1.1 0.6 - 1.1 cm LVOT Peak David 1.5 m/sec IVSd 2D 0.9 0.6 - 1.1 cm LVOT Peak PG 8.5 mmHg AoR Diam 2D 3.6 2.0 - 3.7 cm MV E Peak David 0.6 m/sec EDV 2D 119.5 cm3 MV A Peak David 0.7 m/sec ESV 2D 12.7 cm3 MV E/A 0.8 LA Dimen 2D 3.4 2.3 - 4.0 cm MV Decel Time 215 msec MV Decel Dauphin 3 MV E/A 0.8 TR Peak David 2.2 m/sec TR Peak PG 18.8 mmHg RVSP 22.0 mmHg Findings Left Ventricle: Normal left ventricular systolic function. Normal left ventricular cavity size. Mild concentric left ventricular hypertrophy. Ejection fraction is visually estimated at 55 %. Tissue Doppler/Mitral Doppler indices are indeterminate in this study due to the presence of atrial fibrillation. Right Ventricle: Normal right ventricular size. Normal right ventricular systolic function. Left Atrium: The left atrium is normal in size. Right Atrium: The right atrium is normal in size. Mitral Valve: Normal appearance and function of the mitral valve with trace physiologic regurgitation. Aortic Valve: No significant aortic stenosis or insufficiency. Aortic cusps appear mildly calcified. Tricuspid Valve: Normal appearance and function of the tricuspid valve with trace physiologic regurgitation. Normal right ventricular systolic pressure. Pulmonic Valve: Normal pulmonic valve appearance. Pericardium: Normal pericardium with no significant pericardial effusion. Aorta: Normal aortic root. IVC: Inferior vena cava with respiratory collapse, however, patient on ventilator. Conclusions 1.Normal left ventricular systolic function. Normal left ventricular cavity size. Mild concentric left ventricular hypertrophy. Ejection fraction is visually estimated at 55 %. Tissue Doppler/Mitral Doppler indices are indeterminate in this study due to the presence of atrial fibrillation. 2.Normal appearance and function of the mitral valve with trace physiologic regurgitation. 3.Normal appearance and function of the tricuspid valve with trace physiologic regurgitation. Normal right ventricular systolic pressure. Electronically Signed By: Jeff Nuno 14-Jun-2016 17:51:48 -0800 Patient Name: SUKHDEV GARVEY Study Date: 14-Jun-2016 [id number]
[2016-06-14] MEDS: METOPROLOL 25 MG TAB PO SCH (20:26)
--- NOTE | 2016-06-14 21:16 | CONS ---
Date/Time of Note Date/Time of Note DATE: 06/14/16 TIME: 21:15 Assessment/Plan Assessment/Plan Chief Complaint/Hosp Course Assessment and Plan: 1. 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 - continue Protonix 40 mg IV BID 2. Severe Anemia 2/2 #1-stable - monitor h/h. transfuse 2 units if hgb less than 7.5. 3. Decompensated Alcoholic Liver Cirrhosis with Encephalopathy. 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 - continue lactulose -Abd US shows no Ascites -pt last drink a year ago. Encouraged continued abstinence 4. Hypotension: 2/2 GI Bleed-resolved - cont IVF - pressors now off, DC'd Vanco as there is no e/o infection Problems: Consultation Date/Type/Reason Admit Date/Time Jun 09, 2016 at 04:01 Initial Consult Date 06/09/16 Type of Consultation: GI 24 HR Interval Summary Free Text/Dictation pt remains intubated, ammonia stable but still pt is not waking up Exam/Review of Systems Vital Signs Vitals Vital Signs Date Time Temp Pulse Resp B/P Pulse Ox O2 Delivery O2 Flow Rate FiO2 06/14/16 19:49 71 12 100 30 06/14/16 19:00 125/61 Mechanical Ventilator 06/14/16 16:00 98.6 Intake and Output 06/13/16 06/13/16 06/14/16 15:00 23:00 07:00 Intake Total 961 ml 1077 ml 1050 ml Output Total 2715 ml 950 ml 495 ml Balance -1754 ml 127 ml 555 ml Exam Constitutional: non-verbal Psych: confusion Head: atraumatic, normocephalic Eyes: nl conjunctiva, nl lids ENMT: nl external ears & nose, nl lips & teeth, nl nasal mucosa & septum Neck: non-tender, supple Respiratory: clear to auscultation, normal air movement Cardiovascular: nl pulses, regular rate and rhythm Gastrointestinal: bowel sounds, non-tender, soft Results Result Diagram: 06/14/16 0440 06/14/16 0440 Results 24 hrs Laboratory Tests Test 06/14/16 00:09 06/14/16 04:40 06/14/16 05:00 06/14/16 05:57 Bedside Glucose 121 98 Anion Gap 14 Basophils # 0.1 Basophils % 1.1 Blood Urea Nitrogen 23 H Calcium Level 8.1 L Carbon Dioxide Level 28 Chloride Level 108 Creatinine 0.92 Eosinophils # 0.7 H Eosinophils % 10.3 H Glucose Level 94 Hematocrit 30.4 L Hemoglobin 9.3 L Lymphocytes # 0.8 Lymphocytes % 13.0 L Mean Corpuscular Hemoglobin 27.3 L Mean Corpuscular Hemoglobin Concent 30.6 L Mean Corpuscular Volume 89.1 Mean Platelet Volume 11.2 H Monocytes # 0.8 Monocytes % 12.2 H Neutrophils # 4.1 Neutrophils % 62.8 Nucleated Red Blood Cells # 0.0 Nucleated Red Blood Cells % 0.0 Platelet Count 122 L Potassium Level 3.6 Red Blood Count 3.41 L Red Cell Distribution Width 18.5 H Sodium Level 146 H White Blood Count 6.5 Arterial Blood HCO3 25.1 Arterial Blood Base Excess 1.5 Arterial Blood Oxygen Saturation 98.2 Adelso Test ACCEPTAB Arterial Blood Gas Puncture Site Left Radial Arterial Blood Carboxyhemoglobin 0.3 Arterial Blood Date Drawn 06/14/2016 4:31:36 AM Arterial Blood Methemoglobin 0.4 Arterial Blood pCO2 (Temp correct) 35.5 Arterial Blood pH (Temp corrected) 7.467 H Arterial Blood pO2 (Temp corrected) 132.8 H Blood Gas A-a O2 Differential 111.6 H Blood Gas Actual Respiration Rate 15 Blood Gas Inspiratory Pressure 26.0 Blood Gas Low PEEP Setting 5.0 Blood Gas Modality VENT - AC Blood Gas Notified Time 06/14/2016 4:50:34 AM Blood Gas Notified Whom RTR Blood Gas Respiration Rate 12.0 Blood Gas Specimen Source Blood arterial Blood Gas Temperature 37.0 Blood Gas Tidal Volume 650.0 FiO2 40.0 Oxyhemoglobin Percent 97.5 Total Hemoglobin 10.4 L Test 06/14/16 09:51 06/14/16 09:57 06/14/16 11:42 06/14/16 17:31 Lab Scanned Report REFERENCE LAB REFERENCE LAB Bedside Glucose 107 103 Medications Medications Current Medications Ondansetron HCl (Zofran Inj) 4 mg Q6H PRN IV NAUSEA AND/OR VOMITING; Start 06/09 at 04:30 Morphine Sulfate (morphine) 2 mg Q4H PRN IV PAIN LEVEL 7-10 Last administered on 06/14/16 09:40; Admin Dose 2 MG; Start 06/09/16 at 04:30 Lorazepam (Ativan) 1 mg Q2H PRN IV ANXIETY Last administered on 06/11/16 20:35 ; Admin Dose 1 MG; Start 06/09/16 at 04:30 Dutasteride (Avodart) 0.5 mg AM PO ; Start 06/09/16 at 09:00 Finasteride (Proscar) 5 mg AM PO Last administered on 06/14/16 08:19; Admin Dose 5 MG; Start 06/09/16 at 09:00 Levothyroxine Sodium 50 mcg 50 mcg DAILY@06 PO Last administered on 06/14/16 05 :51; Admin Dose 50 MCG; Start 06/09/16 at 06:00 Norepinephrine 16 mg/Dextrose 500 ml @ 1.87 mls/hr TITRATE IV Last administered on 06/09/16 12:58; Admin Dose 1.87 MLS/HR; Start 06/09/16 at 10:00 Propofol 100 ml @ 3 mls/hr Q12H IV Last administered on 06/14/16 20:24; Admin Dose 12 MLS/HR; Start 06/09/16 at 06:30 Cefepime HCl (Maxipime 1gm/50 ml (Pmx)) 50 ml @ 100 mls/hr Q12 IVPB Last administered on 06/14/16 20:26; Admin Dose 100 MLS/HR; Start 06/09/16 at 12:00 IV Flush (NS 10 ml) 10 ml PRN PRN IV IV PROTOCOL; Start 06/09/16 at 17:00 Insulin Aspart (Novolog Insulin Pen) NOVOLOG *MILD* ALGORITHM Q6 SC Last administered on 06/11/16 23:36; Admin Dose 1 UNIT; Start 06/11/16 at 12:00 Diagnostic Test (Pha) 1 ea 1 ea 02 XX ; Start 06/12/16 at 02:00 Dextrose (D5W) 1,000 ml @ 100 mls/hr Q10H IV Last administered on 06/14/16 20: 27; Admin Dose 100 MLS/HR; Start 06/11/16 at 08:30 Miscellaneous Information 1 ea NOTE XX ; Start 06/11/16 at 08:30 Glucose (Glutose) 15 gm Q15M PRN PO DECREASED GLUCOSE; Start 06/11/16 at 08:30 Glucose (Glutose) 22.5 gm Q15M PRN PO DECREASED GLUCOSE; Start 06/11/16 at 08:30 Dextrose (D50w Syringe) 25 ml Q15M PRN IV DECREASED GLUCOSE; Start 06/11/16 at 08:30 Dextrose (D50w Syringe) 50 ml Q15M PRN IV DECREASED GLUCOSE; Start 06/11/16 at 08:30 Glucagon (Glucagen) 1 mg Q15M PRN IM DECREASED GLUCOSE; Start 06/11/16 at 08:30 Glucose (Glutose) 15 gm Q15M PRN BUCCAL DECREASED GLUCOSE; Start 06/11/16 at 08: 30 Rifaximin (Xifaxan) 550 mg BID PO Last administered on 06/14/16 20:26; Admin Dose 550 MG; Start 06/11/16 at 14:30 Pantoprazole (Protonix Iv) 40 mg BID@,18 IV Last administered on 06/14/16 17: 26; Admin Dose 40 MG; Start 06/11/16 at 18:00 Furosemide (Lasix) 40 mg DAILY IV Last administered on 06/14/16 08:19; Admin Dose 40 MG; Start 06/12/16 at 13:00 Eye Lubricant (Artificial Tears Oph) 2 drop QID BOTH EYES Last administered on 06/14/16 20:27; Admin Dose 2 DROP; Start 06/12/16 at 13:00 Lactulose (Enulose) 30 gm Q8H PO Last administered on 06/14/16 20:24; Admin Dose 30 GM; Start 06/12/16 at 20:00 Hydralazine HCl (Apresoline) 10 mg Q2H PRN IV SBP>170; Start 06/12/16 at 17:00 Metoprolol Tartrate (Lopressor) 5 mg Q6H PRN IV HR>130; Start 06/14/16 at 09:00 Amiodarone HCl (Cordarone) 400 mg BID NGT Last administered on 06/14/16 20:26; Admin Dose 400 MG; Start 06/14/16 at 21:00 Metoprolol Tartrate (Lopressor) 25 mg BID PO Last administered on 06/14/16 20: 26; Admin Dose 25 MG; Start 06/14/16 at 21:00 ARMANI VALLADARES MD Jun 14, 2016 21:16
--- NOTE | 2016-06-14 21:49 | PN ---
DATE: REFERRING PHYSICIAN: Dr. Sears. Thank you for asking me to see the patient with you. HISTORY OF PRESENT ILLNESS: The patient is a 71-year-old with underlying liver cell failure, GI ble eding, portal hypertension, decreased mini mental status, lack of communication. CURRENT MEDICATIONS: Include: 1. Lactulose 30 mg once a day. 2. Protonix 40 mg once a day. 3. Lasix 40 mg once a day. 4. Avodart 0.5 mg once a day. 5. Proscar 5 mg once a day. 6. Propofol titration. 7. Synthroid 50 mcg once a day. 8. Zofran 4 mg every 6 hours as needed. 9. Albuterol every 2 hours as needed. 10. Ativan every 8 hours as needed. 11. Morphine sulfate 2 mg every 4 hours. 12. Ativan 1 mg once a day. PHYSICAL EXAMINATION: GENERAL: Today, the patient is alert but does not follow any commands, does not follow any verbal c ommands. He is still intubated and under propofol titration. CRANIAL NERVES: Cranial nerve II: Pupils equal both sides, reactive to light. Cranial nerves III, IV, and : Extraocular muscles intact for doll's maneuver. Cranial nerves V and VII: Intact cor zay reflex. Cranial nerves VIII through XII: Could not assess. MOTOR: Slight withdrawal for painful stimuli. SENSATION, COORDINATION: Could not assess. HEART: Regular rate and rhythm. LUNGS: Equal breath sounds. ABDOMEN: Distended. Obese. ASSESSMENT AND PLAN: 1. The patient is a 71-year-old with underlying acute encephalopathy. 2. Possibility of underlying toxic metabolic encephalopathy secondary to hepatic cell failure with the patient under lactulose. 3. History of gastrointestinal bleed with portal hypertension and liver cell failure. 4. Electroencephalogram done showed generalized slowing. No seizure activity consistent with a his tory of underlying encephalopathy. 5. We will keep the patient under deep venous thrombosis prophylaxis as well as decubitus ulcer pro phylaxis. Dictated By: THEODORE THOMAS MD NA/NTS Conf#: [id number] DID#: [id number] CC: MONTY SEARS MD;*EndCC*
[2016-06-15] VITALS (46 sets, daily range): BP systolic 112–142; BP diastolic 56–78; PULSE 62–76; RESP 11–19
[2016-06-15] MEDS: ACCU-CHEK XX SCH (02:00)
[2016-06-15 04:53] LABS: ADD SCAN DIFF NO
[2016-06-15] MEDS: PROPOFOL 100 ML IV SCH (04:55)
[2016-06-15] MEDS: LACTULOSE 30ML CUP PO SCH ×3 (04:55→21:05)
[2016-06-15 05:03] LABS: BASOPHIL # 0.1 10^3/ul (0.0-0.1); BASOPHILS % 1.1 % (0.0-2.0); EOSINOPHILS # 0.7 10^3/ul (0.0-0.5); EOSINOPHILS % 10.8 % (0.0-7.0); HEMATOCRIT 28.9 % (42.0-52.0); LYMPHOCYTES # 0.8 10^3/ul (0.8-2.9); LYMPHOCYTES % 12.8 % (15.0-51.0); MEAN CORPUSCULAR HEMOGLOBIN 27.5 pg (29.0-33.0); MEAN CORPUSCULAR HGB CONC 31.1 g/dl (32.0-37.0); MEAN CORPUSCULAR VOLUME 88.4 fl (82.0-101.0); MEAN PLATELET VOLUME 11.1 fl (7.4-10.4); MONOCYTE # 0.7 10^3/ul (0.3-0.9); NEUTROPHIL # 4.1 10^3/ul (1.6-7.5); NEUTROPHILS % 63.2 % (39.0-77.0); PLATELET COUNT 123 10^3/UL (140-415); RED BLOOD COUNT 3.27 10^6/ul (4.70-6.10); RED CELL DISTRIBUTION WIDTH 18.2 % (11.5-14.5); WHITE BLOOD COUNT 6.5 10^3/ul (4.8-10.8)
[2016-06-15 05:08] LABS: INR 1.28; PROTIME 16.1 Sec (12.2-14.2); PT RATIO 1.3
[2016-06-15 05:09] LABS: PARTIAL THROMBOPLASTIN TIME 33.7 Sec (25.0-35.0)
[2016-06-15 05:38] LABS: AADO2 Arterial 88.4 mmHg (7.0-24.0); Allen Test ACCEPTAB; Arterial Base Excess -0.5 mmol/L (-3.0-3); Arterial COHb 0.1 % (0.0-3.0); Arterial Fraction of Oxyhgb 94.7 % (93.0-99.0); Arterial MetHb 0.4 % (0.0-1.5); Arterial Total Hemglobin 10.7 g/dl (12.0-18.0); MODE VENT - AC
[2016-06-15] MEDS: LEVOTHYROXINE 50 MCG TAB PO SCH (05:46)
[2016-06-15] MEDS: PANTOPRAZOLE 40 MG INJ IV SCH ×2 (05:46→17:56)
[2016-06-15 05:54] LABS: ALBUMIN 2.3 g/dl (3.3-4.9)
[2016-06-15 05:55] LABS: POTASSIUM 3.5 mmol/L (3.5-5.1)
[2016-06-15 05:57] LABS: ALBUMIN/GLOBULIN RATIO 0.76; BILIRUBIN,INDIRECT 0.5 mg/dl (0-1.1); BILIRUBIN,TOTAL 0.5 mg/dl (0.2-1.3); CREATININE 0.92 mg/dl (0.61-1.24); TOTAL PROTEIN 5.3 g/dl (6.1-8.1)
[2016-06-15] MEDS: INSULIN ASPART [NOVOLOG] 3 ML PEN SC SCH ×5 (06:00→23:56)
[2016-06-15] MEDS: DEXTROSE 5% 1,000 ML IV SCH (06:18)
--- NOTE | 2016-06-15 08:02 | CONS ---
Date/Time of Note Date/Time of Note DATE: 06/15/16 TIME: 07:59 Assessment/Plan Assessment/Plan Additional Assessment/Plan Ventilator settings; AC of 12, tidal volume 650, PEEP of 5, 40% FiO2. Assessment recommendations; 1. Patient admitted with upper GI bleed status post EGD with banding of varices. Without any further bleed. Patient maintaining stable hematocrit. 2. Stable thrombocytopenia. 3. Left lower lobe pneumonia. 4. Alcoholic encephalopathy. 5. History of hypothyroidism. 6. History of cardiac arrhythmia. 7. Interval resolution of metabolic acidosis. Continue current supportive care. Stop sedation. Once the patient is off sedative effect he will be evaluated for possible weaning from ventilator. Prognosis is guarded. Consultation Date/Type/Reason Admit Date/Time Jun 09, 2016 at 04:01 Initial Consult Date 06/09/16 Type of Consultation: Pulmonary/critical care 24 HR Interval Summary Free Text/Dictation Patient condition remains critical. Still requiring full ventilator support. His sedation has just been stopped now patient still under the sedative effect. Has remained hemodynamically stable. No overt bleeding noted. General examination; young male, orally intubated, sedated. Currently in no distress. Exam/Review of Systems Vital Signs Vitals Vital Signs Date Time Temp Pulse Resp B/P Pulse Ox O2 Delivery O2 Flow Rate FiO2 06/15/16 06:00 69 13 123/62 98 Mechanical Ventilator 06/15/16 05:43 30 06/15/16 04:00 98.4 Intake and Output 06/14/16 06/14/16 06/15/16 15:00 23:00 07:00 Intake Total 996 ml 864 ml 814 ml Output Total 1300 ml 340 ml 270 ml Balance -304 ml 524 ml 544 ml Exam HEENT examination; supple neck, no JVD. No lymphadenopathy. Midline trachea. No thyromegaly. Orally intubated. Patient with bilateral mild sub- conjunctival edema with a very small right subconjunctival hemorrhage. Patient has icterus. Chest examination; diminished breath sounds bilaterally. S1-S2 audible, no murmurs. Regular rhythm. Abdomen examination; protuberant, bowel sounds audible. No organomegaly. Extremity examination; no peripheral edema. COLUMNIST/COMMENTATOR examination; patient is sedated. Results Result Diagram: 06/15/16 0417 06/15/16 0417 Results 24 hrs Laboratory Tests Test 06/14/16 09:51 06/14/16 09:57 06/14/16 11:42 06/14/16 17:31 Lab Scanned Report REFERENCE LAB REFERENCE LAB Bedside Glucose 107 103 Test 06/15/16 00:03 06/15/16 04:17 06/15/16 04:53 06/15/16 05:00 Bedside Glucose 98 95 Activated Partial Thromboplast Time 33.7 Alanine Aminotransferase (ALT/SGPT) 78 H Albumin 2.3 L Albumin/Globulin Ratio 0.76 Alkaline Phosphatase 107 Anion Gap 13 Aspartate Amino Transf (AST/SGOT) 42 Basophils # 0.1 Basophils % 1.1 Blood Urea Nitrogen 20 Calcium Level 8.0 L Carbon Dioxide Level 28 Chloride Level 103 Creatinine 0.92 Direct Bilirubin 0.00 Eosinophils # 0.7 H Eosinophils % 10.8 H Globulin 3.00 Glucose Level 103 Hematocrit 28.9 L Hemoglobin 9.0 L INR International Normalized Ratio 1.28 Indirect Bilirubin 0.5 Lymphocytes # 0.8 Lymphocytes % 12.8 L Mean Corpuscular Hemoglobin 27.5 L Mean Corpuscular Hemoglobin Concent 31.1 L Mean Corpuscular Volume 88.4 Mean Platelet Volume 11.1 H Monocytes # 0.7 Monocytes % 11.0 Neutrophils # 4.1 Neutrophils % 63.2 Nucleated Red Blood Cells # 0.0 Nucleated Red Blood Cells % 0.0 Platelet Count 123 L Potassium Level 3.5 Prothrombin Time 16.1 H Prothrombin Time Ratio 1.3 Red Blood Count 3.27 L Red Cell Distribution Width 18.2 H Sodium Level 140 Total Bilirubin 0.5 Total Protein 5.3 L White Blood Count 6.5 Arterial Blood HCO3 23.0 Arterial Blood Base Excess -0.5 Arterial Blood Oxygen Saturation 95.2 Adelso Test ACCEPTAB Arterial Blood Gas Puncture Site Right Radial Arterial Blood Carboxyhemoglobin 0.1 Arterial Blood Date Drawn 06/15/2016 5:26:00 AM Arterial Blood Methemoglobin 0.4 Arterial Blood pCO2 (Temp correct) 34.0 L Arterial Blood pH (Temp corrected) 7.449 Arterial Blood pO2 (Temp corrected) 85.6 Blood Gas A-a O2 Differential 88.4 H Blood Gas Actual Respiration Rate 15 Blood Gas Inspiratory Pressure 28.0 Blood Gas Low PEEP Setting 5.0 Blood Gas Modality VENT - AC Blood Gas Notified Time 06/15/2016 5:37:00 AM Blood Gas Notified Whom KM Blood Gas Respiration Rate 12.0 Blood Gas Specimen Source Blood arterial Blood Gas Temperature 37.0 Blood Gas Tidal Volume 650.0 FiO2 30.0 Oxyhemoglobin Percent 94.7 Total Hemoglobin 10.7 L Test 06/15/16 06:08 Bedside Glucose 95 Medications Medications Current Medications Ondansetron HCl (Zofran Inj) 4 mg Q6H PRN IV NAUSEA AND/OR VOMITING; Start 06/09 at 04:30 Morphine Sulfate (morphine) 2 mg Q4H PRN IV PAIN LEVEL 7-10 Last administered on 06/14/16 09:40; Admin Dose 2 MG; Start 06/09/16 at 04:30 Lorazepam (Ativan) 1 mg Q2H PRN IV ANXIETY Last administered on 06/11/16 20:35 ; Admin Dose 1 MG; Start 06/09/16 at 04:30 Dutasteride (Avodart) 0.5 mg AM PO ; Start 06/09/16 at 09:00 Finasteride (Proscar) 5 mg AM PO Last administered on 06/14/16 08:19; Admin Dose 5 MG; Start 06/09/16 at 09:00 Levothyroxine Sodium 50 mcg 50 mcg DAILY@06 PO Last administered on 06/15/16 05 :46; Admin Dose 50 MCG; Start 06/09/16 at 06:00 Norepinephrine 16 mg/Dextrose 500 ml @ 1.87 mls/hr TITRATE IV Last administered on 06/09/16 12:58; Admin Dose 1.87 MLS/HR; Start 06/09/16 at 10:00 Propofol 100 ml @ 3 mls/hr Q12H IV Last administered on 06/15/16 04:55; Admin Dose 12 MLS/HR; Start 06/09/16 at 06:30 Cefepime HCl (Maxipime 1gm/50 ml (Pmx)) 50 ml @ 100 mls/hr Q12 IVPB Last administered on 06/14/16 20:26; Admin Dose 100 MLS/HR; Start 06/09/16 at 12:00 IV Flush (NS 10 ml) 10 ml PRN PRN IV IV PROTOCOL; Start 06/09/16 at 17:00 Insulin Aspart (Novolog Insulin Pen) NOVOLOG *MILD* ALGORITHM Q6 SC Last administered on 3/3/17at 23:36; Admin Dose 1 UNIT; Start 06/11/16 at 12:00 Diagnostic Test (Pha) 1 ea 1 ea 02 XX Last administered on 06/15/16 02:00; Admin Dose 1 EA; Start 06/12/16 at 02:00 Dextrose (D5W) 1,000 ml @ 100 mls/hr Q10H IV Last administered on 06/15/16 06: 18; Admin Dose 100 MLS/HR; Start 06/11/16 at 08:30 Miscellaneous Information 1 ea NOTE XX ; Start 06/11/16 at 08:30 Glucose (Glutose) 15 gm Q15M PRN PO DECREASED GLUCOSE; Start 06/11/16 at 08:30 Glucose (Glutose) 22.5 gm Q15M PRN PO DECREASED GLUCOSE; Start 06/11/16 at 08:30 Dextrose (D50w Syringe) 25 ml Q15M PRN IV DECREASED GLUCOSE; Start 06/11/16 at 08:30 Dextrose (D50w Syringe) 50 ml Q15M PRN IV DECREASED GLUCOSE; Start 06/11/16 at 08:30 Glucagon (Glucagen) 1 mg Q15M PRN IM DECREASED GLUCOSE; Start 06/11/16 at 08:30 Glucose (Glutose) 15 gm Q15M PRN BUCCAL DECREASED GLUCOSE; Start 06/11/16 at 08: 30 Rifaximin (Xifaxan) 550 mg BID PO Last administered on 06/14/16 20:26; Admin Dose 550 MG; Start 06/11/16 at 14:30 Pantoprazole (Protonix Iv) 40 mg BID@06,18 IV Last administered on 06/15/16 05: 46; Admin Dose 40 MG; Start 06/11/16 at 18:00 Furosemide (Lasix) 40 mg DAILY IV Last administered on 06/14/16 08:19; Admin Dose 40 MG; Start 06/12/16 at 13:00 Eye Lubricant (Artificial Tears Oph) 2 drop QID BOTH EYES Last administered on 06/14/16 20:27; Admin Dose 2 DROP; Start 06/12/16 at 13:00 Lactulose (Enulose) 30 gm Q8H PO Last administered on 06/15/16 04:55; Admin Dose 30 GM; Start 06/12/16 at 20:00 Hydralazine HCl (Apresoline) 10 mg Q2H PRN IV SBP>170; Start 06/12/16 at 17:00 Metoprolol Tartrate (Lopressor) 5 mg Q6H PRN IV HR>130; Start 06/14/16 at 09:00 Amiodarone HCl (Cordarone) 400 mg BID NGT Last administered on 06/14/16 20:26; Admin Dose 400 MG; Start 06/14/16 at 21:00 Metoprolol Tartrate (Lopressor) 25 mg BID PO Last administered on 06/14/16 20: 26; Admin Dose 25 MG; Start 06/14/16 at 21:00 LEE ANN LEROY Jun 15, 2016 08:02
[2016-06-15] MEDS: DUTASTERIDE 0.5 MG CAP PO SCH (08:34)
[2016-06-15] MEDS: FUROSEMIDE 40 MG INJ IV SCH (08:40)
[2016-06-15] MEDS: ARTIFICIAL TEARS 15 ML OPH BOTH EYES SCH ×4 (08:40→21:06)
[2016-06-15] MEDS: AMIODARONE 200 MG TAB NGT SCH ×2 (08:40→21:21)
[2016-06-15] MEDS: FINASTERIDE 5 MG TAB PO SCH (08:41)
[2016-06-15] MEDS: RIFAXIMIN 550 MG TAB PO SCH ×2 (08:41→21:06)
[2016-06-15] MEDS: CEFEPIME 1GM/50 ML (PMX) 50 ML IVPB SCH ×2 (08:41→21:22)
[2016-06-15] MEDS: METOPROLOL 25 MG TAB PO SCH ×2 (08:42→21:21)
--- NOTE | 2016-06-15 09:33 | RADRPT ---
PROCEDURE: XR Chest. CLINICAL INDICATION: 71-year-old male on respirator with respiratory failure. TECHNIQUE: Single frontal view of the chest was obtained COMPARISON: Chest x-ray 06/14/2016. FINDINGS: The soft tissues are normal. There are osteophytes in the thoracic spine. The endotracheal tube is well-positioned at T5 approximately 3 cm superior to the sandi. The the heart is enlarged. The c ardiomediastinal silhouette and hilar structures are normal. There is a left-sided aorta. the lungs are clear allowing for poor inspiration. The pulmonary vasculature is equilibrated. The costophre chintan angles are normal. IMPRESSION: 1. Interval improvement of the interstitial pulmonary edema previous identified on 06/14/2016 with p ersistent equilibration the pulmonary vasculature is suspicious for mild CHF. 2. PICC line catheter entering to the left arm with its tip in the superior vena cava. 3. Satisfactory positioning of the endotracheal tube and nasogastric tube. RPTAT:AAJJ Physician Lakeisha Date Time Electronically viewed and signed by Dat Schulz Physician on 06/15/2016 09:33 LEANDRO/
--- NOTE | 2016-06-15 14:04 | CONS ---
Date/Time of Note Date/Time of Note DATE: 06/15/16 TIME: 14:02 Assessment/Plan Assessment/Plan Additional Assessment/Plan 1. 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 - continue Protonix 40 mg IV BID 2. Severe Anemia 2/2 #1-stable - monitor h/h. transfuse 2 units if hgb less than 7.5. 3. Decompensated Alcoholic Liver Cirrhosis with Encephalopathy. 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 - continue lactulose -Abd US shows no Ascites -pt last drink a year ago. Encouraged continued abstinence 4. Hypotension: 2/2 GI Bleed-resolved - cont IVF - pressors now off, DC'd Vanco as there is no e/o infection Consultation Date/Type/Reason Admit Date/Time Jun 09, 2016 at 04:01 Initial Consult Date 06/09/16 Type of Consultation: GI 24 HR Interval Summary Free Text/Dictation Hgb stable Tube feed started at 30 DC d5 Report of BM yesterday Exam/Review of Systems Vital Signs Vitals Vital Signs Date Time Temp Pulse Resp B/P Pulse Ox O2 Delivery O2 Flow Rate FiO2 06/15/16 13:30 71 12 124/63 98 06/15/16 13:00 Mechanical Ventilator 06/15/16 12:00 99.0 06/15/16 08:00 30 Intake and Output 06/14/16 06/14/16 06/15/16 15:00 23:00 07:00 Intake Total 996 ml 864 ml 914 ml Output Total 1300 ml 340 ml 360 ml Balance -304 ml 524 ml 554 ml Exam Constitutional: non-verbal Psych: confusion Head: atraumatic, normocephalic Eyes: nl conjunctiva, nl lids ENMT: nl external ears & nose, nl lips & teeth, nl nasal mucosa & septum Neck: non-tender, supple Respiratory: clear to auscultation, normal air movement Cardiovascular: nl pulses, regular rate and rhythm Gastrointestinal: bowel sounds, non-tender, soft Results Result Diagram: 06/15/16 0417 06/15/16 0417 Results 24 hrs Laboratory Tests Test 06/14/16 17:31 06/15/16 00:03 06/15/16 04:17 06/15/16 04:53 Bedside Glucose 103 98 95 Activated Partial Thromboplast Time 33.7 Alanine Aminotransferase (ALT/SGPT) 78 H Albumin 2.3 L Albumin/Globulin Ratio 0.76 Alkaline Phosphatase 107 Anion Gap 13 Aspartate Amino Transf (AST/SGOT) 42 Basophils # 0.1 Basophils % 1.1 Blood Urea Nitrogen 20 Calcium Level 8.0 L Carbon Dioxide Level 28 Chloride Level 103 Creatinine 0.92 Direct Bilirubin 0.00 Eosinophils # 0.7 H Eosinophils % 10.8 H Globulin 3.00 Glucose Level 103 Hematocrit 28.9 L Hemoglobin 9.0 L INR International Normalized Ratio 1.28 Indirect Bilirubin 0.5 Lymphocytes # 0.8 Lymphocytes % 12.8 L Mean Corpuscular Hemoglobin 27.5 L Mean Corpuscular Hemoglobin Concent 31.1 L Mean Corpuscular Volume 88.4 Mean Platelet Volume 11.1 H Monocytes # 0.7 Monocytes % 11.0 Neutrophils # 4.1 Neutrophils % 63.2 Nucleated Red Blood Cells # 0.0 Nucleated Red Blood Cells % 0.0 Platelet Count 123 L Potassium Level 3.5 Prothrombin Time 16.1 H Prothrombin Time Ratio 1.3 Red Blood Count 3.27 L Red Cell Distribution Width 18.2 H Sodium Level 140 Total Bilirubin 0.5 Total Protein 5.3 L White Blood Count 6.5 Test 06/15/16 05:00 06/15/16 06:08 06/15/16 12:14 Arterial Blood HCO3 23.0 Arterial Blood Base Excess -0.5 Arterial Blood Oxygen Saturation 95.2 Adelso Test ACCEPTAB Arterial Blood Gas Puncture Site Right Radial Arterial Blood Carboxyhemoglobin 0.1 Arterial Blood Date Drawn 06/15/2016 5:26:00 AM Arterial Blood Methemoglobin 0.4 Arterial Blood pCO2 (Temp correct) 34.0 L Arterial Blood pH (Temp corrected) 7.449 Arterial Blood pO2 (Temp corrected) 85.6 Blood Gas A-a O2 Differential 88.4 H Blood Gas Actual Respiration Rate 15 Blood Gas Inspiratory Pressure 28.0 Blood Gas Low PEEP Setting 5.0 Blood Gas Modality VENT - AC Blood Gas Notified Time 06/15/2016 5:37:00 AM Blood Gas Notified Whom KM Blood Gas Respiration Rate 12.0 Blood Gas Specimen Source Blood arterial Blood Gas Temperature 37.0 Blood Gas Tidal Volume 650.0 FiO2 30.0 Oxyhemoglobin Percent 94.7 Total Hemoglobin 10.7 L Bedside Glucose 95 96 Medications Medications Current Medications Ondansetron HCl (Zofran Inj) 4 mg Q6H PRN IV NAUSEA AND/OR VOMITING; Start 06/09 at 04:30 Morphine Sulfate (morphine) 2 mg Q4H PRN IV PAIN LEVEL 7-10 Last administered on 06/14/16 09:40; Admin Dose 2 MG; Start 06/09/16 at 04:30 Lorazepam (Ativan) 1 mg Q2H PRN IV ANXIETY Last administered on 06/11/16 20:35 ; Admin Dose 1 MG; Start 06/09/16 at 04:30 Dutasteride (Avodart) 0.5 mg AM PO ; Start 06/09/16 at 09:00 Finasteride (Proscar) 5 mg AM PO Last administered on 06/14/16 08:19; Admin Dose 5 MG; Start 06/09/16 at 09:00 Levothyroxine Sodium 50 mcg 50 mcg DAILY@06 PO Last administered on 06/15/16 05 :46; Admin Dose 50 MCG; Start 06/09/16 at 06:00 Norepinephrine 16 mg/Dextrose 500 ml @ 1.87 mls/hr TITRATE IV Last administered on 06/09/16 12:58; Admin Dose 1.87 MLS/HR; Start 06/09/16 at 10:00 Propofol 100 ml @ 3 mls/hr Q12H IV Last administered on 06/15/16 04:55; Admin Dose 12 MLS/HR; Start 06/09/16 at 06:30 Cefepime HCl (Maxipime 1gm/50 ml (Pmx)) 50 ml @ 100 mls/hr Q12 IVPB Last administered on 06/15/16 08:41; Admin Dose 100 MLS/HR; Start 06/09/16 at 12:00 IV Flush (NS 10 ml) 10 ml PRN PRN IV IV PROTOCOL; Start 06/09/16 at 17:00 Insulin Aspart (Novolog Insulin Pen) NOVOLOG *MILD* ALGORITHM Q6 SC Last administered on 06/11/16 23:36; Admin Dose 1 UNIT; Start 06/11/16 at 12:00 Diagnostic Test (Pha) 1 ea 1 ea 02 XX Last administered on 06/15/16 02:00; Admin Dose 1 EA; Start 06/12/16 at 02:00 Dextrose (D5W) 1,000 ml @ 100 mls/hr Q10H IV Last administered on 06/15/16 06: 18; Admin Dose 100 MLS/HR; Start 06/11/16 at 08:30 Miscellaneous Information 1 ea NOTE XX ; Start 06/11/16 at 08:30 Glucose (Glutose) 15 gm Q15M PRN PO DECREASED GLUCOSE; Start 06/11/16 at 08:30 Glucose (Glutose) 22.5 gm Q15M PRN PO DECREASED GLUCOSE; Start 06/11/16 at 08:30 Dextrose (D50w Syringe) 25 ml Q15M PRN IV DECREASED GLUCOSE; Start 06/11/16 at 08:30 Dextrose (D50w Syringe) 50 ml Q15M PRN IV DECREASED GLUCOSE; Start 06/11/16 at 08:30 Glucagon (Glucagen) 1 mg Q15M PRN IM DECREASED GLUCOSE; Start 06/11/16 at 08:30 Glucose (Glutose) 15 gm Q15M PRN BUCCAL DECREASED GLUCOSE; Start 06/11/16 at 08: 30 Rifaximin (Xifaxan) 550 mg BID PO Last administered on 06/15/16 08:41; Admin Dose 550 MG; Start 06/11/16 at 14:30 Pantoprazole (Protonix Iv) 40 mg BID@06,18 IV Last administered on 06/15/16 05: 46; Admin Dose 40 MG; Start 06/11/16 at 18:00 Furosemide (Lasix) 40 mg DAILY IV Last administered on 06/15/16 08:40; Admin Dose 40 MG; Start 06/12/16 at 13:00 Eye Lubricant (Artificial Tears Oph) 2 drop QID BOTH EYES Last administered on 06/15/16 12:14; Admin Dose 2 DROP; Start 06/12/16 at 13:00 Lactulose (Enulose) 30 gm Q8H PO Last administered on 06/15/16 12:16; Admin Dose 30 GM; Start 06/12/16 at 20:00 Hydralazine HCl (Apresoline) 10 mg Q2H PRN IV SBP>170; Start 06/12/16 at 17:00 Metoprolol Tartrate (Lopressor) 5 mg Q6H PRN IV HR>130; Start 06/14/16 at 09:00 Amiodarone HCl (Cordarone) 400 mg BID NGT Last administered on 06/15/16 08:40; Admin Dose 400 MG; Start 06/14/16 at 21:00 Metoprolol Tartrate (Lopressor) 25 mg BID PO Last administered on 06/15/16 08: 42; Admin Dose 25 MG; Start 06/14/16 at 21:00 KODY SHELDON Jun 15, 2016 14:04
--- NOTE | 2016-06-15 14:27 | PN ---
Date/Time of Note Date/Time of Note DATE: 06/15/16 TIME: 14:23 Assessment/Plan VTE Prophylaxis VTE Prophylaxis Intervention: SCD's Lines/Catheters IV Catheter Type (from Nrsg): PICC Line Central line still needed: Yes (IV acces ) Urinary Cath still in place: Yes Reason Cath still needed: other (indicate) (strict I/O) Assessment/Plan Assessment/Plan 1. 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 Severe Anemia 2/2 #1-stable 3. Decompensated Alcoholic Liver Cirrhosis with Encephalopathy -Increased Lactulose dose yesterday and Ammonia has decreased but still obtunded when off sedation and fighting the vent hence Propofol was restarted, cont sedation vacations -Abd US shows no Ascites -Hep panel shows Hx of Exposure to Hep B but no active infection 4. Hypotension: 2/2 GI Bleed-resolved - cont IVF - pressors now off, DC'd Vanco as there is no e/o infection 5. Low TSH 2/2 sick euthyroid -T4 is nl 6. Resp Failure -intubated on ventilator PPx-SCDs discussed with son today and updated him about plan- he cancelled his palliative care meeting today with Subjective 24 Hr Interval Summary Free Text/Dictation pt remains intubated, altered off sedation, making good urine Exam/Review of Systems Vital Signs Vitals Vital Signs Date Time Temp Pulse Resp B/P Pulse Ox O2 Delivery O2 Flow Rate FiO2 06/15/16 13:30 71 12 124/63 98 06/15/16 13:00 Mechanical Ventilator 06/15/16 12:00 99.0 06/15/16 08:00 30 Intake and Output 06/14/16 06/14/16 06/15/16 15:00 23:00 07:00 Intake Total 996 ml 864 ml 914 ml Output Total 1300 ml 340 ml 360 ml Balance -304 ml 524 ml 554 ml Exam Constitutional: non-verbal ENMT: intubated Respiratory: clear to auscultation Cardiovascular: regular rate and rhythm Gastrointestinal: distended, soft Extremities: edema Results Result Diagram: 06/15/16 0417 06/15/16 0417 Results 24 hrs Laboratory Tests Test 06/14/16 17:31 06/15/16 00:03 06/15/16 04:17 06/15/16 04:53 Bedside Glucose 103 98 95 Activated Partial Thromboplast Time 33.7 Alanine Aminotransferase (ALT/SGPT) 78 H Albumin 2.3 L Albumin/Globulin Ratio 0.76 Alkaline Phosphatase 107 Anion Gap 13 Aspartate Amino Transf (AST/SGOT) 42 Basophils # 0.1 Basophils % 1.1 Blood Urea Nitrogen 20 Calcium Level 8.0 L Carbon Dioxide Level 28 Chloride Level 103 Creatinine 0.92 Direct Bilirubin 0.00 Eosinophils # 0.7 H Eosinophils % 10.8 H Globulin 3.00 Glucose Level 103 Hematocrit 28.9 L Hemoglobin 9.0 L INR International Normalized Ratio 1.28 Indirect Bilirubin 0.5 Lymphocytes # 0.8 Lymphocytes % 12.8 L Mean Corpuscular Hemoglobin 27.5 L Mean Corpuscular Hemoglobin Concent 31.1 L Mean Corpuscular Volume 88.4 Mean Platelet Volume 11.1 H Monocytes # 0.7 Monocytes % 11.0 Neutrophils # 4.1 Neutrophils % 63.2 Nucleated Red Blood Cells # 0.0 Nucleated Red Blood Cells % 0.0 Platelet Count 123 L Potassium Level 3.5 Prothrombin Time 16.1 H Prothrombin Time Ratio 1.3 Red Blood Count 3.27 L Red Cell Distribution Width 18.2 H Sodium Level 140 Total Bilirubin 0.5 Total Protein 5.3 L White Blood Count 6.5 Test 06/15/16 05:00 06/15/16 06:08 06/15/16 12:14 Arterial Blood HCO3 23.0 Arterial Blood Base Excess -0.5 Arterial Blood Oxygen Saturation 95.2 Adelso Test ACCEPTAB Arterial Blood Gas Puncture Site Right Radial Arterial Blood Carboxyhemoglobin 0.1 Arterial Blood Date Drawn 06/15/2016 5:26:00 AM Arterial Blood Methemoglobin 0.4 Arterial Blood pCO2 (Temp correct) 34.0 L Arterial Blood pH (Temp corrected) 7.449 Arterial Blood pO2 (Temp corrected) 85.6 Blood Gas A-a O2 Differential 88.4 H Blood Gas Actual Respiration Rate 15 Blood Gas Inspiratory Pressure 28.0 Blood Gas Low PEEP Setting 5.0 Blood Gas Modality VENT - AC Blood Gas Notified Time 06/15/2016 5:37:00 AM Blood Gas Notified Whom KM Blood Gas Respiration Rate 12.0 Blood Gas Specimen Source Blood arterial Blood Gas Temperature 37.0 Blood Gas Tidal Volume 650.0 FiO2 30.0 Oxyhemoglobin Percent 94.7 Total Hemoglobin 10.7 L Bedside Glucose 95 96 Medications Medications Current Medications Ondansetron HCl (Zofran Inj) 4 mg Q6H PRN IV NAUSEA AND/OR VOMITING; Start 06/09 at 04:30 Morphine Sulfate (morphine) 2 mg Q4H PRN IV PAIN LEVEL 7-10 Last administered on 06/14/16 09:40; Admin Dose 2 MG; Start 06/09/16 at 04:30 Lorazepam (Ativan) 1 mg Q2H PRN IV ANXIETY Last administered on 06/11/16 20:35 ; Admin Dose 1 MG; Start 06/09/16 at 04:30 Dutasteride (Avodart) 0.5 mg AM PO ; Start 06/09/16 at 09:00 Finasteride (Proscar) 5 mg AM PO Last administered on 06/14/16 08:19; Admin Dose 5 MG; Start 06/09/16 at 09:00 Levothyroxine Sodium 50 mcg 50 mcg DAILY@06 PO Last administered on 06/15/16 05 :46; Admin Dose 50 MCG; Start 06/09/16 at 06:00 Norepinephrine 16 mg/Dextrose 500 ml @ 1.87 mls/hr TITRATE IV Last administered on 06/09/16 12:58; Admin Dose 1.87 MLS/HR; Start 06/09/16 at 10:00 Propofol 100 ml @ 3 mls/hr Q12H IV Last administered on 06/15/16 04:55; Admin Dose 12 MLS/HR; Start 06/09/16 at 06:30 Cefepime HCl (Maxipime 1gm/50 ml (Pmx)) 50 ml @ 100 mls/hr Q12 IVPB Last administered on 06/15/16 08:41; Admin Dose 100 MLS/HR; Start 06/09/16 at 12:00 IV Flush (NS 10 ml) 10 ml PRN PRN IV IV PROTOCOL; Start 06/09/16 at 17:00 Insulin Aspart (Novolog Insulin Pen) NOVOLOG *MILD* ALGORITHM Q6 SC Last administered on 06/11/16 23:36; Admin Dose 1 UNIT; Start 06/11/16 at 12:00 Diagnostic Test (Pha) (Accucheck) 02 XX Last administered on 06/15/16 02: 00; Admin Dose 1 EA; Start 06/12/16 at 02:00 Miscellaneous Information 1 ea NOTE XX ; Start 06/11/16 at 08:30 Glucose (Glutose) 15 gm Q15M PRN PO DECREASED GLUCOSE; Start 06/11/16 at 08:30 Glucose (Glutose) 22.5 gm Q15M PRN PO DECREASED GLUCOSE; Start 06/11/16 at 08:30 Dextrose (D50w Syringe) 25 ml Q15M PRN IV DECREASED GLUCOSE; Start 06/11/16 at 08:30 Dextrose (D50w Syringe) 50 ml Q15M PRN IV DECREASED GLUCOSE; Start 06/11/16 at 08:30 Glucagon (Glucagen) 1 mg Q15M PRN IM DECREASED GLUCOSE; Start 06/11/16 at 08:30 Glucose (Glutose) 15 gm Q15M PRN BUCCAL DECREASED GLUCOSE; Start 06/11/16 at 08: 30 Rifaximin (Xifaxan) 550 mg BID PO Last administered on 06/15/16 08:41; Admin Dose 550 MG; Start 06/11/16 at 14:30 Pantoprazole (Protonix Iv) 40 mg BID@06,18 IV Last administered on 06/15/16 05: 46; Admin Dose 40 MG; Start 06/11/16 at 18:00 Furosemide (Lasix) 40 mg DAILY IV Last administered on 06/15/16 08:40; Admin Dose 40 MG; Start 06/12/16 at 13:00 Eye Lubricant (Artificial Tears Oph) 2 drop QID BOTH EYES Last administered on 06/15/16 12:14; Admin Dose 2 DROP; Start 06/12/16 at 13:00 Lactulose (Enulose) 30 gm Q8H PO Last administered on 06/15/16 12:16; Admin Dose 30 GM; Start 06/12/16 at 20:00 Hydralazine HCl (Apresoline) 10 mg Q2H PRN IV SBP>170; Start 06/12/16 at 17:00 Metoprolol Tartrate (Lopressor) 5 mg Q6H PRN IV HR>130; Start 06/14/16 at 09:00 Amiodarone HCl (Cordarone) 400 mg BID NGT Last administered on 06/15/16 08:40; Admin Dose 400 MG; Start 06/14/16 at 21:00 Metoprolol Tartrate (Lopressor) 25 mg BID PO Last administered on 06/15/16 08: 42; Admin Dose 25 MG; Start 06/14/16 at 21:00 MAURY BENITEZ MD Jun 15, 2016 14:27
--- NOTE | 2016-06-15 15:17 | CONS ---
Date/Time of Note Date/Time of Note DATE: 06/15/16 TIME: 15:12 Assessment/Plan Assessment/Plan Chief Complaint/Hosp Course IMPRESSION: 1. Paroxysmal atrial fibrillation/atrial flutter, now back in sinus rhythm. 2. Abnormal electrocardiogram. Assess for acute coronary syndrome. 3. Hypotension, now improved. 4. Gastrointestinal bleed. 5. Cirrhosis. 6. Encephalopathy. 7. Anemia, severe, status post transfusions. 8. Hypernatremia. 9. Coagulopathy Recc: -Tele -Continue amiodarone for now -Contnue BB -No asa/systemic anti-coag secondary to anemia/GIB -Continue abx's and f/u cx data -Follow MS closely -Folloe Hgb closely Problems: Consultation Date/Type/Reason Admit Date/Time Jun 09, 2016 at 04:01 Initial Consult Date 06/09/16 Type of Consultation: Cardiology Reason for Consultation PAF Referring Provider: MAURY BENITEZ MD Exam/Review of Systems Vital Signs Vitals Vital Signs Date Time Temp Pulse Resp B/P Pulse Ox O2 Delivery O2 Flow Rate FiO2 06/15/16 13:30 71 12 124/63 98 06/15/16 13:00 Mechanical Ventilator 06/15/16 12:00 99.0 06/15/16 08:00 30 Intake and Output 06/14/16 06/14/16 06/15/16 14:59 22:59 06:59 Intake Total 996 ml 864 ml 926 ml Output Total 1270 ml 340 ml 320 ml Balance -274 ml 524 ml 606 ml Exam Review of Systems: CONSTITUTIONAL: No fevers, chills. PULMONARY: intubated CARDIOVASCULAR: No obvious chest pain/palpitations GASTROINTESTINAL: No nausea/vomiting. GENITOURINARY: No hematuria/dysuria. MUSCULOSKELETAL: No obvious myagias/arthalgias. PSYCHIATRIC: The patient denies depression. NEUROLOGIC: sedated Constitutional: other (sedated) Psych: no complaints Head: normocephalic ENMT: intubated, mucosa pink and moist Neck: jvd (9 cm water), supple Respiratory: diminished breath sounds (at bases/B) Cardiovascular: regular rate and rhythm Gastrointestinal: non-tender, soft Musculoskeletal: muscle tone (normal) Extremities: edema (none) Neurological: lethargic Results Result Diagram: 06/15/16 0417 06/15/16 0417 Results 24 hrs Laboratory Tests Test 06/14/16 17:31 06/15/16 00:03 06/15/16 04:17 06/15/16 04:53 Bedside Glucose 103 98 95 Activated Partial Thromboplast Time 33.7 Alanine Aminotransferase (ALT/SGPT) 78 H Albumin 2.3 L Albumin/Globulin Ratio 0.76 Alkaline Phosphatase 107 Anion Gap 13 Aspartate Amino Transf (AST/SGOT) 42 Basophils # 0.1 Basophils % 1.1 Blood Urea Nitrogen 20 Calcium Level 8.0 L Carbon Dioxide Level 28 Chloride Level 103 Creatinine 0.92 Direct Bilirubin 0.00 Eosinophils # 0.7 H Eosinophils % 10.8 H Globulin 3.00 Glucose Level 103 Hematocrit 28.9 L Hemoglobin 9.0 L INR International Normalized Ratio 1.28 Indirect Bilirubin 0.5 Lymphocytes # 0.8 Lymphocytes % 12.8 L Mean Corpuscular Hemoglobin 27.5 L Mean Corpuscular Hemoglobin Concent 31.1 L Mean Corpuscular Volume 88.4 Mean Platelet Volume 11.1 H Monocytes # 0.7 Monocytes % 11.0 Neutrophils # 4.1 Neutrophils % 63.2 Nucleated Red Blood Cells # 0.0 Nucleated Red Blood Cells % 0.0 Platelet Count 123 L Potassium Level 3.5 Prothrombin Time 16.1 H Prothrombin Time Ratio 1.3 Red Blood Count 3.27 L Red Cell Distribution Width 18.2 H Sodium Level 140 Total Bilirubin 0.5 Total Protein 5.3 L White Blood Count 6.5 Test 06/15/16 05:00 06/15/16 06:08 06/15/16 12:14 Arterial Blood HCO3 23.0 Arterial Blood Base Excess -0.5 Arterial Blood Oxygen Saturation 95.2 Adelso Test ACCEPTAB Arterial Blood Gas Puncture Site Right Radial Arterial Blood Carboxyhemoglobin 0.1 Arterial Blood Date Drawn 06/15/2016 5:26:00 AM Arterial Blood Methemoglobin 0.4 Arterial Blood pCO2 (Temp correct) 34.0 L Arterial Blood pH (Temp corrected) 7.449 Arterial Blood pO2 (Temp corrected) 85.6 Blood Gas A-a O2 Differential 88.4 H Blood Gas Actual Respiration Rate 15 Blood Gas Inspiratory Pressure 28.0 Blood Gas Low PEEP Setting 5.0 Blood Gas Modality VENT - AC Blood Gas Notified Time 06/15/2016 5:37:00 AM Blood Gas Notified Whom KM Blood Gas Respiration Rate 12.0 Blood Gas Specimen Source Blood arterial Blood Gas Temperature 37.0 Blood Gas Tidal Volume 650.0 FiO2 30.0 Oxyhemoglobin Percent 94.7 Total Hemoglobin 10.7 L Bedside Glucose 95 96 Medications Medications Current Medications Ondansetron HCl (Zofran Inj) 4 mg Q6H PRN IV NAUSEA AND/OR VOMITING; Start 06/09 at 04:30 Morphine Sulfate (morphine) 2 mg Q4H PRN IV PAIN LEVEL 7-10 Last administered on 06/14/16 09:40; Admin Dose 2 MG; Start 06/09/16 at 04:30 Lorazepam (Ativan) 1 mg Q2H PRN IV ANXIETY Last administered on 06/11/16 20:35 ; Admin Dose 1 MG; Start 06/09/16 at 04:30 Dutasteride (Avodart) 0.5 mg AM PO ; Start 06/09/16 at 09:00 Finasteride (Proscar) 5 mg AM PO Last administered on 06/14/16 08:19; Admin Dose 5 MG; Start 06/09/16 at 09:00 Levothyroxine Sodium 50 mcg 50 mcg DAILY@06 PO Last administered on 06/15/16 05 :46; Admin Dose 50 MCG; Start 06/09/16 at 06:00 Norepinephrine 16 mg/Dextrose 500 ml @ 1.87 mls/hr TITRATE IV Last administered on 06/09/16 12:58; Admin Dose 1.87 MLS/HR; Start 06/09/16 at 10:00 Propofol 100 ml @ 3 mls/hr Q12H IV Last administered on 06/15/16 04:55; Admin Dose 12 MLS/HR; Start 06/09/16 at 06:30 Cefepime HCl (Maxipime 1gm/50 ml (Pmx)) 50 ml @ 100 mls/hr Q12 IVPB Last administered on 06/15/16 08:41; Admin Dose 100 MLS/HR; Start 06/09/16 at 12:00 IV Flush (NS 10 ml) 10 ml PRN PRN IV IV PROTOCOL; Start 06/09/16 at 17:00 Insulin Aspart (Novolog Insulin Pen) NOVOLOG *MILD* ALGORITHM Q6 SC Last administered on 06/11/16 23:36; Admin Dose 1 UNIT; Start 06/11/16 at 12:00 Diagnostic Test (Pha) (Accucheck) 1 ea 02 XX Last administered on 06/15/16 02: 00; Admin Dose 1 EA; Start 06/12/16 at 02:00 Miscellaneous Information 1 ea NOTE XX ; Start 06/11/16 at 08:30 Glucose (Glutose) 15 gm Q15M PRN PO DECREASED GLUCOSE; Start 06/11/16 at 08:30 Glucose (Glutose) 22.5 gm Q15M PRN PO DECREASED GLUCOSE; Start 06/11/16 at 08:30 Dextrose (D50w Syringe) 25 ml Q15M PRN IV DECREASED GLUCOSE; Start 06/11/16 at 08:30 Dextrose (D50w Syringe) 50 ml Q15M PRN IV DECREASED GLUCOSE; Start 06/11/16 at 08:30 Glucagon (Glucagen) 1 mg Q15M PRN IM DECREASED GLUCOSE; Start 06/11/16 at 08:30 Glucose (Glutose) 15 gm Q15M PRN BUCCAL DECREASED GLUCOSE; Start 06/11/16 at 08: 30 Rifaximin (Xifaxan) 550 mg BID PO Last administered on 06/15/16 08:41; Admin Dose 550 MG; Start 06/11/16 at 14:30 Pantoprazole (Protonix Iv) 40 mg BID@06,18 IV Last administered on 06/15/16 05: 46; Admin Dose 40 MG; Start 06/11/16 at 18:00 Furosemide (Lasix) 40 mg DAILY IV Last administered on 06/15/16 08:40; Admin Dose 40 MG; Start 06/12/16 at 13:00 Eye Lubricant (Artificial Tears Oph) 2 drop QID BOTH EYES Last administered on 06/15/16 12:14; Admin Dose 2 DROP; Start 06/12/16 at 13:00 Lactulose (Enulose) 30 gm Q8H PO Last administered on 06/15/16 12:16; Admin Dose 30 GM; Start 06/12/16 at 20:00 Hydralazine HCl (Apresoline) 10 mg Q2H PRN IV SBP>170; Start 06/12/16 at 17:00 Metoprolol Tartrate (Lopressor) 5 mg Q6H PRN IV HR>130; Start 06/14/16 at 09:00 Amiodarone HCl (Cordarone) 400 mg BID NGT Last administered on 06/15/16 08:40; Admin Dose 400 MG; Start 06/14/16 at 21:00 Metoprolol Tartrate (Lopressor) 25 mg BID PO Last administered on 06/15/16 08: 42; Admin Dose 25 MG; Start 06/14/16 at 21:00 ANGELES ODONNELL Jun 15, 2016 15:17
--- NOTE | 2016-06-15 20:28 | RADRPT ---
Vent Rate: 70 bpm RR Interval: 0 msec IL Interval: 146 msec QRS Duration: 86 msec QT Interval: 484 msec QTC Interval: 522 msec P-R-T Reserve: 57 - 62 - 51 degrees Sinus rhythm with premature atrial complexes Prolonged QT Abnormal ECG Electronically Signed By: Jeff Nuno [id number]
--- NOTE | 2016-06-15 21:21 | PN ---
DATE: REFERRING PHYSICIAN: Dr. Cobos Thank you for asking me to see the patient in follow up. HISTORY OF PRESENT ILLNESS: The patient is a 71-year-old male who has liver cirrhosis with GI bleed ing, portal hypertension, decreased mini mental status in which I got a call about him for more eval uation and treatment. CURRENT MEDICATIONS: Include: 1. Lactulose 30 mg once daily. 2. Protonix 40 mg once a day. 3. Lasix 40 mg once a day. 4. Avodart 0.5 mg once a day. 5. Proscar 5 mg once a day. 6. Propofol titration. 7. Synthroid 50 mcg once a day. 8. Zofran 4 mg every 6 hours as needed. 9. Albuterol inhaler every 2 hours as needed. 10. Ativan 1 mg every hour as needed. 11. Morphine sulfate 2 mg every 4 hours as needed. PHYSICAL EXAMINATION: GENERAL: Today, the patient is alert, awake, looks confused, more alert than yesterday. CRANIAL NERVE: Cranial nerve II: Pupils equal on both sides, reactive to light. Cranial nerves II I, IV, and : Extraocular muscles intact. No nystagmus. Cranial nerve V: Equal sensation to fac e. Cranial nerve VII: Symmetrical face. Cranial nerve VIII: Decreased hearing bilaterally. Cran ial nerves IX, X: Elevates palate. Cranial nerve XI: Elevates shoulder 5/5. Cranial nerve XII: With straight tongue. MOTOR: Moving both upper and lower extremities against gravity. SENSATION: Decreased for glove and sock area for light touch and temperature. COORDINATION: [id number] test intact. HEART: Regular rate and rhythm. LUNGS: Equal breath sounds. ABDOMEN: Soft, relaxed, nondistended. No tenderness. ASSESSMENT AND PLAN: 1. The patient is 71 years old with acute encephalopathy. 2. Underlying toxic metabolic encephalopathy secondary to hepatic ache failure. The patient alread y on lactulose. 3. History of gastrointestinal bleeding secondary to portal hypertension and liver cell failure. 4. We will keep the patient under deep venous thrombosis prophylaxis as well as decubitus ulcer pro phylaxis. 5. Electroencephalogram is done. Does not shows seizure activity. However, it showed generalized slowing consistent with underlying encephalopathy. Again, thank you for asking me to see the patient with you. Dictated By: THEODORE ROBERTO/RICK Conf#: [id number] DID#: [id number] CC: MONTY SEARS MD;*[facility]*
[2016-06-16] VITALS (35 sets, daily range): BP systolic 99–156; BP diastolic 50–80; PULSE 62–83; RESP 9–20
[2016-06-16] MEDS: ACCU-CHEK XX SCH (00:23)
[2016-06-16] MEDS: FENTAnyl (DRIP) 1000 mcg/100mL 100 ML IV SCH ×2 (00:43→18:32)
[2016-06-16] MEDS: LACTULOSE 30ML CUP PO SCH ×3 (04:04→20:27)
[2016-06-16] MEDS: LORAZEPAM 2 MG INJ IV PRN ×2 (04:10)
[2016-06-16] MEDS: PROPOFOL 100 ML IV SCH ×2 (04:35→18:30)
[2016-06-16 05:33] LABS: ADD SCAN DIFF NO
[2016-06-16 05:37] LABS: BASOPHIL # 0.1 10^3/ul (0.0-0.1); BASOPHILS % 1.3 % (0.0-2.0); EOSINOPHILS # 0.7 10^3/ul (0.0-0.5); EOSINOPHILS % 8.6 % (0.0-7.0); HEMATOCRIT 30.7 % (42.0-52.0); HEMOGLOBIN 9.2 g/dl (14.0-18.0); LYMPHOCYTES % 13.2 % (15.0-51.0); MEAN CORPUSCULAR HEMOGLOBIN 26.7 pg (29.0-33.0); MONOCYTE # 0.8 10^3/ul (0.3-0.9); MONOCYTES % 10.1 % (0.0-11.0); NEUTROPHILS % 66.3 % (39.0-77.0); PLATELET COUNT 124 10^3/UL (140-415); RED BLOOD COUNT 3.45 10^6/ul (4.70-6.10); RED CELL DISTRIBUTION WIDTH 18.1 % (11.5-14.5); WHITE BLOOD COUNT 7.5 10^3/ul (4.8-10.8)
[2016-06-16] MEDS: PANTOPRAZOLE 40 MG INJ IV SCH ×2 (05:45→19:37)
[2016-06-16] MEDS: LEVOTHYROXINE 50 MCG TAB PO SCH (05:45)
[2016-06-16] MEDS: INSULIN ASPART [NOVOLOG] 3 ML PEN SC SCH ×3 (05:55→18:00)
[2016-06-16 06:34] LABS: CREATININE 0.85 mg/dl (0.61-1.24)
[2016-06-16 06:35] LABS: CALCIUM 8.2 mg/dl (8.4-10.2)
--- NOTE | 2016-06-16 07:54 | RADRPT ---
PROCEDURE: XR Chest 1 view. CLINICAL INDICATION: Shortness of breath TECHNIQUE: AP views of the chest were obtained. COMPARISON: Yesterday FINDINGS: The heart is large. Calcified atherosclerosis is noted in the aorta. Endotracheal and nasogastric t ubes are stable. Retrocardiac opacity is unchanged. Scattered atelectasis is seen in the right lowe r lobe. Diffuse mild interstitial prominence in both lungs is unchanged. Left-sided PICC line has its tip in the expected location of the distal superior vena cava. The osseous structures are unchan ged. IMPRESSION: Cardiomegaly with calcified atherosclerosis in the aorta. Stable retrocardiac opacity that may reflect left lower lobe atelectasis or infiltrate combined with small pleural effusion. Scattered atelectasis in the right lower lobe. Stable diffuse mild interstitial prominence in both lungs. RPTAT: AA .Pineda Faulkner MD, Date Time Electronically viewed and signed by .Pineda Faulkner MD, on 06/16/2016 07:53 .P/
[2016-06-16 07:56] LABS: AADO2 Arterial 75.9 mmHg (7.0-24.0); Allen Test ACCEPTAB; Arterial Base Excess 2.7 mmol/L (-3.0-3); Arterial COHb 0.3 % (0.0-3.0); Arterial Fraction of Oxyhgb 95.4 % (93.0-99.0); Arterial HCO3 27.2 mmol/L (22.0-26.0); Arterial MetHb 0.3 % (0.0-1.5); Arterial Total Hemglobin 9.8 g/dl (12.0-18.0); MODE VENT - AC
[2016-06-16] MEDS ORDERED: POTASSIUM CHLORIDE (SR) 20 MEQ TAB PO STA (08:00)
--- NOTE | 2016-06-16 08:07 | CONS ---
Date/Time of Note Date/Time of Note DATE: 06/16/16 TIME: 08:04 Assessment/Plan Assessment/Plan Additional Assessment/Plan Ventilator settings; AC of 12, tidal volume 650, PEEP of 5, 30% FiO2. Next Chest x-ray was reviewed from today which is now essentially clear with frequent resolution of left lower lobe infiltrate. Assessment recommendations; 1. Patient admitted for upper GI bleed due to variceal bleeding status post EGD with banding of varices. 2. Mild thrombocytopenia. 3. Left lower lobe pneumonia with interval resolution. 4. 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 5. Other comorbidities include hypertension, hypothyroidism, BPH, anemia, and history of cardiac arrhythmia. Continue current supportive care decrease tidal volume to 500 mL. When the patient is off sedative effect, he will be evaluated for possible weaning from ventilator. I did have a detailed discussion the patient's son at bedside and answered all his questions. Consultation Date/Type/Reason Admit Date/Time Jun 09, 2016 at 04:01 Initial Consult Date 06/09/16 Type of Consultation: Pulmonary/critical care Referring Provider: MAURY BENITEZ MD 24 HR Interval Summary Free Text/Dictation Patient condition remains critical. Still requiring full ventilator support. Patient however has remained hemodynamically stable. Patient sedation has just been stopped short while ago and he still under the sedative effect. General examination; middle-aged man, orally intubated, currently in no distress. Sedated. Exam/Review of Systems Vital Signs Vitals Vital Signs Date Time Temp Pulse Resp B/P Pulse Ox O2 Delivery O2 Flow Rate FiO2 06/16/16 07:00 65 12 111/60 98 Mechanical Ventilator 06/16/16 05:17 30 06/16/16 04:00 99.0 Intake and Output 06/15/16 06/15/16 06/16/16 15:00 23:00 07:00 Intake Total 760 ml 440 ml 453.5 ml Output Total 935 ml 740 ml 250 ml Balance -175 ml -300 ml 203.5 ml Exam HEENT exam is; supple neck, no lymphadenopathy. No thyromegaly. Orally intubated. No neck masses. Pupils are midsize and reactive to light bilaterally. There is mild right subconjunctival hemorrhage. There is also very mild bilateral subconjunctival edema present. Next Chest examination; diminished but clear breath sounds bilaterally. S1-S2 audible, no murmurs. Regular rhythm. Abdomen examination; soft, protuberant. Bowel sounds audible. No organomegaly felt. Extremity examination; no peripheral edema. SKIP PITMAN examination; patient opens eyes on name calling. Results Result Diagram: 06/16/16 0400 06/16/16 0400 Results 24 hrs Laboratory Tests Test 06/15/16 12:14 06/15/16 17:55 06/15/16 23:54 06/16/16 04:00 Bedside Glucose 96 107 103 Ammonia 27 Anion Gap 14 Basophils # 0.1 Basophils % 1.3 Blood Urea Nitrogen 19 Calcium Level 8.2 L Carbon Dioxide Level 29 Chloride Level 104 Creatinine 0.85 Eosinophils # 0.7 H Eosinophils % 8.6 H Glucose Level 110 Hematocrit 30.7 L Hemoglobin 9.2 L Lymphocytes # 1.0 Lymphocytes % 13.2 L Magnesium Level 2.0 Mean Corpuscular Hemoglobin 26.7 L Mean Corpuscular Hemoglobin Concent 30.0 L Mean Corpuscular Volume 89.0 Mean Platelet Volume 11.0 H Monocytes # 0.8 Monocytes % 10.1 Neutrophils # 5.0 Neutrophils % 66.3 Nucleated Red Blood Cells # 0.0 Nucleated Red Blood Cells % 0.0 Phosphorus Level 3.0 Platelet Count 124 L Potassium Level 3.0 L Red Blood Count 3.45 L Red Cell Distribution Width 18.1 H Sodium Level 144 White Blood Count 7.5 Test 06/16/16 05:53 06/16/16 07:00 Bedside Glucose 116 Arterial Blood HCO3 27.2 H Arterial Blood Base Excess 2.7 Arterial Blood Oxygen Saturation 96.0 Adelso Test ACCEPTAB Arterial Blood Gas Puncture Site Right Radial Arterial Blood Carboxyhemoglobin 0.3 Arterial Blood Date Drawn 06/16/2016 7:16:53 AM Arterial Blood Methemoglobin 0.3 Arterial Blood pCO2 (Temp correct) 41.8 Arterial Blood pH (Temp corrected) 7.432 Arterial Blood pO2 (Temp corrected) 88.9 Blood Gas A-a O2 Differential 75.9 H Blood Gas Actual Respiration Rate 15 Blood Gas Low PEEP Setting 5.0 Blood Gas Modality VENT - AC Blood Gas Notified Time 06/16/2016 7:56:42 AM Blood Gas Notified Whom JLD Blood Gas Respiration Rate 12.0 Blood Gas Specimen Source Blood arterial Blood Gas Temperature 37.0 Blood Gas Tidal Volume 650.0 FiO2 30.0 Oxyhemoglobin Percent 95.4 Total Hemoglobin 9.8 L Medications Medications Current Medications Ondansetron HCl (Zofran Inj) 4 mg Q6H PRN IV NAUSEA AND/OR VOMITING; Start 06/09 at 04:30 Morphine Sulfate (morphine) 2 mg Q4H PRN IV PAIN LEVEL 7-10 Last administered on 06/14/16 09:40; Admin Dose 2 MG; Start 06/09/16 at 04:30 Lorazepam (Ativan) 1 mg Q2H PRN IV ANXIETY Last administered on 06/16/16 04:10 ; Admin Dose 1 MG; Start 06/09/16 at 04:30 Dutasteride (Avodart) 0.5 mg AM PO ; Start 06/09/16 at 09:00 Finasteride (Proscar) 5 mg AM PO Last administered on 06/14/16 08:19; Admin Dose 5 MG; Start 06/09/16 at 09:00 Levothyroxine Sodium 50 mcg 50 mcg DAILY@06 PO Last administered on 06/16/16 05 :45; Admin Dose 50 MCG; Start 06/09/16 at 06:00 Norepinephrine 16 mg/Dextrose 500 ml @ 1.87 mls/hr TITRATE IV Last administered on 06/09/16 12:58; Admin Dose 1.87 MLS/HR; Start 06/09/16 at 10:00 Propofol 100 ml @ 3 mls/hr Q12H IV Last administered on 06/15/16 04:55; Admin Dose 12 MLS/HR; Start 06/09/16 at 06:30 Cefepime HCl (Maxipime 1gm/50 ml (Pmx)) 50 ml @ 100 mls/hr Q12 IVPB Last administered on 06/15/16 21:22; Admin Dose 100 MLS/HR; Start 06/09/16 at 12:00 IV Flush (NS 10 ml) 10 ml PRN PRN IV IV PROTOCOL; Start 06/09/16 at 17:00 Insulin Aspart (Novolog Insulin Pen) NOVOLOG *MILD* ALGORITHM Q6 SC Last administered on 06/11/16 23:36; Admin Dose 1 UNIT; Start 06/11/16 at 12:00 Diagnostic Test (Pha) (Accucheck) 1 ea 02 XX Last administered on 06/15/16 02: 00; Admin Dose 1 EA; Start 06/12/16 at 02:00 Miscellaneous Information 1 ea NOTE XX ; Start 06/11/16 at 08:30 Glucose (Glutose) 15 gm Q15M PRN PO DECREASED GLUCOSE; Start 06/11/16 at 08:30 Glucose (Glutose) 22.5 gm Q15M PRN PO DECREASED GLUCOSE; Start 06/11/16 at 08:30 Dextrose (D50w Syringe) 25 ml Q15M PRN IV DECREASED GLUCOSE; Start 06/11/16 at 08:30 Dextrose (D50w Syringe) 50 ml Q15M PRN IV DECREASED GLUCOSE; Start 06/11/16 at 08:30 Glucagon (Glucagen) 1 mg Q15M PRN IM DECREASED GLUCOSE; Start 06/11/16 at 08:30 Glucose (Glutose) 15 gm Q15M PRN BUCCAL DECREASED GLUCOSE; Start 06/11/16 at 08: 30 Rifaximin (Xifaxan) 550 mg BID PO Last administered on 06/15/16 21:06; Admin Dose 550 MG; Start 06/11/16 at 14:30 Pantoprazole (Protonix Iv) 40 mg BID@06,18 IV Last administered on 06/16/16 05: 45; Admin Dose 40 MG; Start 06/11/16 at 18:00 Furosemide (Lasix) 40 mg DAILY IV Last administered on 06/15/16 08:40; Admin Dose 40 MG; Start 06/12/16 at 13:00 Eye Lubricant (Artificial Tears Oph) 2 drop QID BOTH EYES Last administered on 06/15/16 21:06; Admin Dose 2 DROP; Start 06/12/16 at 13:00 Lactulose (Enulose) 30 gm Q8H PO Last administered on 06/16/16 04:04; Admin Dose 30 GM; Start 06/12/16 at 20:00 Hydralazine HCl (Apresoline) 10 mg Q2H PRN IV SBP>170; Start 06/12/16 at 17:00 Metoprolol Tartrate (Lopressor) 5 mg Q6H PRN IV HR>130; Start 06/14/16 at 09:00 Amiodarone HCl (Cordarone) 400 mg BID NGT Last administered on 06/15/16 21:21; Admin Dose 400 MG; Start 06/14/16 at 21:00 Metoprolol Tartrate 25 mg 25 mg BID PO Last administered on 06/15/16 21:21; Admin Dose 25 MG; Start 06/14/16 at 21:00 Fentanyl (Sublimaze) 100 ml @ 2.5 mls/hr TITRATE IV Last administered on 00:43; Admin Dose 2.5 MLS/HR; Start 06/15/16 at 19:30 LEE ANN LEROY 8, 2017 08:07
[2016-06-16] MEDS ORDERED: POTASSIUM CHLORIDE 20 MEQ POWDER FOR ORAL SOLN NGT ONE (08:30)
[2016-06-16] MEDS: ARTIFICIAL TEARS 15 ML OPH BOTH EYES SCH ×4 (09:00→20:34)
[2016-06-16] MEDS: DUTASTERIDE 0.5 MG CAP PO SCH (09:00)
[2016-06-16] MEDS: METOPROLOL 25 MG TAB PO SCH ×2 (09:00→22:07)
[2016-06-16] MEDS: FINASTERIDE 5 MG TAB PO SCH (09:31)
[2016-06-16] MEDS: RIFAXIMIN 550 MG TAB PO SCH ×2 (09:31→20:27)
[2016-06-16] MEDS: AMIODARONE 200 MG TAB NGT SCH ×2 (09:32→20:28)
[2016-06-16] MEDS: FUROSEMIDE 40 MG INJ IV SCH (09:33)
[2016-06-16] MEDS: CEFEPIME 1GM/50 ML (PMX) 50 ML IVPB SCH ×2 (09:34→20:31)
--- NOTE | 2016-06-16 11:18 | CONS ---
Date/Time of Note Date/Time of Note DATE: 06/16/16 TIME: 11:14 Assessment/Plan Assessment/Plan Chief Complaint/Hosp Course IMPRESSION: 1. Paroxysmal atrial fibrillation/atrial flutter, now back in sinus rhythm and remains thus 2. Abnormal electrocardiogram. Assess for acute coronary syndrome. 3. Hypotension, now improved. 4. Gastrointestinal bleed. 5. Cirrhosis. 6. Encephalopathy. 7. Anemia, severe, status post transfusions. 8. Hypernatremia. 9. Coagulopathy Recc: -Tele -Continue amiodarone PO for now -Continue BB as tolerated -No asa/systemic anti-coag secondary to anemia/GIB -Continue abx's and f/u cx data -Follow MS closely -Folloe Hgb closely -Contineu gentl elasix diuresis and follow volume status closely Problems: Consultation Date/Type/Reason Admit Date/Time Jun 09, 2016 at 04:01 Initial Consult Date 06/09/16 Type of Consultation: Cardiology Reason for Consultation PAF/AFL Referring Provider: MAURY BENITEZ MD Exam/Review of Systems Vital Signs Vitals Vital Signs Date Time Temp Pulse Resp B/P Pulse Ox O2 Delivery O2 Flow Rate FiO2 06/16/16 09:19 67 17 98 30 06/16/16 09:00 110/54 Mechanical Ventilator 06/16/16 08:00 99.2 Intake and Output 06/15/16 06/15/16 06/16/16 15:00 23:00 07:00 Intake Total 760 ml 440 ml 453.5 ml Output Total 935 ml 740 ml 250 ml Balance -175 ml -300 ml 203.5 ml Exam Review of Systems: CONSTITUTIONAL: No fevers, chills. PULMONARY: intubated CARDIOVASCULAR: No obvious chest pain/palpitations GASTROINTESTINAL: No nausea/vomiting. GENITOURINARY: No hematuria/dysuria. MUSCULOSKELETAL: No obvious myagias/arthalgias. PSYCHIATRIC: No doicumented depression. NEUROLOGIC: sedated Constitutional: other (sedated) Psych: no complaints ENMT: intubated Neck: jvd (8-9 cm water), supple Respiratory: other (upper airawy rhocherous sounds) Cardiovascular: regular rate and rhythm Gastrointestinal: non-tender, soft Musculoskeletal: muscle tone (normal) Extremities: edema (none) Neurological: other (sedated) Results Result Diagram: 06/16/160 06/16/160 Results 24 hrs Laboratory Tests Test 06/15/16 12:14 06/15/16 17:55 06/15/16 23:54 06/16/16 04:00 Bedside Glucose 96 107 103 Ammonia 27 Anion Gap 14 Basophils # 0.1 Basophils % 1.3 Blood Urea Nitrogen 19 Calcium Level 8.2 L Carbon Dioxide Level 29 Chloride Level 104 Creatinine 0.85 Eosinophils # 0.7 H Eosinophils % 8.6 H Glucose Level 110 Hematocrit 30.7 L Hemoglobin 9.2 L Lymphocytes # 1.0 Lymphocytes % 13.2 L Magnesium Level 2.0 Mean Corpuscular Hemoglobin 26.7 L Mean Corpuscular Hemoglobin Concent 30.0 L Mean Corpuscular Volume 89.0 Mean Platelet Volume 11.0 H Monocytes # 0.8 Monocytes % 10.1 Neutrophils # 5.0 Neutrophils % 66.3 Nucleated Red Blood Cells # 0.0 Nucleated Red Blood Cells % 0.0 Phosphorus Level 3.0 Platelet Count 124 L Potassium Level 3.0 L Red Blood Count 3.45 L Red Cell Distribution Width 18.1 H Sodium Level 144 White Blood Count 7.5 Test 06/16/16 05:53 06/16/16 07:00 Bedside Glucose 116 Arterial Blood HCO3 27.2 H Arterial Blood Base Excess 2.7 Arterial Blood Oxygen Saturation 96.0 Adelso Test ACCEPTAB Arterial Blood Gas Puncture Site Right Radial Arterial Blood Carboxyhemoglobin 0.3 Arterial Blood Date Drawn 06/16/2016 7:16:53 AM Arterial Blood Methemoglobin 0.3 Arterial Blood pCO2 (Temp correct) 41.8 Arterial Blood pH (Temp corrected) 7.432 Arterial Blood pO2 (Temp corrected) 88.9 Blood Gas A-a O2 Differential 75.9 H Blood Gas Actual Respiration Rate 15 Blood Gas Low PEEP Setting 5.0 Blood Gas Modality VENT - AC Blood Gas Notified Time 06/16/2016 7:56:42 AM Blood Gas Notified Whom JLD Blood Gas Respiration Rate 12.0 Blood Gas Specimen Source Blood arterial Blood Gas Temperature 37.0 Blood Gas Tidal Volume 650.0 FiO2 30.0 Oxyhemoglobin Percent 95.4 Total Hemoglobin 9.8 L Medications Medications Current Medications Ondansetron HCl (Zofran Inj) 4 mg Q6H PRN IV NAUSEA AND/OR VOMITING; Start 06/09 at 04:30 Morphine Sulfate (morphine) 2 mg Q4H PRN IV PAIN LEVEL 7-10 Last administered on 06/14/16 09:40; Admin Dose 2 MG; Start 06/09/16 at 04:30 Lorazepam (Ativan) 1 mg Q2H PRN IV ANXIETY Last administered on 06/16/16 04:10 ; Admin Dose 1 MG; Start 06/09/16 at 04:30 Dutasteride (Avodart) 0.5 mg AM PO ; Start 06/09/16 at 09:00 Finasteride (Proscar) 5 mg AM PO Last administered on 06/16/16 09:31; Admin Dose 5 MG; Start 06/09/16 at 09:00 Levothyroxine Sodium 50 mcg 50 mcg DAILY@06 PO Last administered on 06/16/16 05 :45; Admin Dose 50 MCG; Start 06/09/16 at 06:00 Norepinephrine 16 mg/Dextrose 500 ml @ 1.87 mls/hr TITRATE IV Last administered on 06/09/16 12:58; Admin Dose 1.87 MLS/HR; Start 06/09/16 at 10:00 Propofol 100 ml @ 3 mls/hr Q12H IV Last administered on 06/15/16 04:55; Admin Dose 12 MLS/HR; Start 06/09/16 at 06:30 Cefepime HCl (Maxipime 1gm/50 ml (Pmx)) 50 ml @ 100 mls/hr Q12 IVPB Last administered on 06/16/16 09:34; Admin Dose 100 MLS/HR; Start 06/09/16 at 12:00 IV Flush (NS 10 ml) 10 ml PRN PRN IV IV PROTOCOL; Start 06/09/16 at 17:00 Insulin Aspart (Novolog Insulin Pen) NOVOLOG *MILD* ALGORITHM Q6 SC Last administered on 06/11/16 23:36; Admin Dose 1 UNIT; Start 06/11/16 at 12:00 Diagnostic Test (Pha) (Accucheck) 1 ea 02 XX Last administered on 06/15/16 02: 00; Admin Dose 1 EA; Start 06/12/16 at 02:00 Miscellaneous Information 1 ea NOTE XX ; Start 06/11/16 at 08:30 Glucose (Glutose) 15 gm Q15M PRN PO DECREASED GLUCOSE; Start 06/11/16 at 08:30 Glucose (Glutose) 22.5 gm Q15M PRN PO DECREASED GLUCOSE; Start 06/11/16 at 08:30 Dextrose (D50w Syringe) 25 ml Q15M PRN IV DECREASED GLUCOSE; Start 06/11/16 at 08:30 Dextrose (D50w Syringe) 50 ml Q15M PRN IV DECREASED GLUCOSE; Start 06/11/16 at 08:30 Glucagon (Glucagen) 1 mg Q15M PRN IM DECREASED GLUCOSE; Start 06/11/16 at 08:30 Glucose (Glutose) 15 gm Q15M PRN BUCCAL DECREASED GLUCOSE; Start 06/11/16 at 08: 30 Rifaximin (Xifaxan) 550 mg BID PO Last administered on 06/16/16 09:31; Admin Dose 550 MG; Start 06/11/16 at 14:30 Pantoprazole (Protonix Iv) 40 mg BID@06,18 IV Last administered on 06/16/16 05: 45; Admin Dose 40 MG; Start 06/11/16 at 18:00 Furosemide (Lasix) 40 mg DAILY IV Last administered on 06/16/16 09:33; Admin Dose 40 MG; Start 06/12/16 at 13:00 Eye Lubricant (Artificial Tears Oph) 2 drop QID BOTH EYES Last administered on 06/15/16 21:06; Admin Dose 2 DROP; Start 06/12/16 at 13:00 Lactulose (Enulose) 30 gm Q8H PO Last administered on 06/16/16 04:04; Admin Dose 30 GM; Start 06/12/16 at 20:00 Hydralazine HCl (Apresoline) 10 mg Q2H PRN IV SBP>170; Start 06/12/16 at 17:00 Metoprolol Tartrate (Lopressor) 5 mg Q6H PRN IV HR>130; Start 06/14/16 at 09:00 Amiodarone HCl (Cordarone) 400 mg BID NGT Last administered on 06/16/16 09:32; Admin Dose 400 MG; Start 06/14/16 at 21:00 Metoprolol Tartrate 25 mg 25 mg BID PO Last administered on 06/15/16 21:21; Admin Dose 25 MG; Start 06/14/16 at 21:00 Fentanyl (Sublimaze) 100 ml @ 2.5 mls/hr TITRATE IV Last administered on t 00:43; Admin Dose 2.5 MLS/HR; Start 06/15/16 at 19:30 ANGELES ODONNELL Jun 16, 2016 11:17
--- NOTE | 2016-06-16 19:22 | PN ---
DATE: REFERRING PHYSICIAN: Dr. Gutierrez. This is a followup note for the patient with stroke. HISTORY OF PRESENT ILLNESS: The patient is a 71-year-old with underlying liver failure, GI bleed, p ortal hypertension, decreased mini mental status, encephalopathy in which the patient was admitted f or decreased mini mental status. CURRENT MEDICATIONS: Include: 1. Lactulose 30 mg once a day. 2. Protonix 40 mg once a day. 3. Lasix 20 mg once a day. 4. Avodart 0.5 mg daily. 5. Proscar 5 mg once a day. 6. Propofol titration. 7. Synthroid 50 mcg once a day. 8. Zofran 4 mg every 6 hours as needed. 9. Albuterol inhaler twice a day. 10. Ativan 1 mg every hour as needed. 11. Morphine sulfate 2 mg every 4 hours as needed. PHYSICAL EXAMINATION: GENERAL: Today, the patient does not respond for painful stimuli since he is sleepy. Looks confuse d. His daughter said he was responding to his son ____ no question per her history. CRANIAL NERVES: Cranial nerve II: Pupils equal both sides, reactive. Cranial nerves III, IV, and : Extraocula r muscles intact. No nystagmus. Cranial nerve V: Equal sensation to face. Cranial nerve VII: Sy mmetrical face. Cranial nerve VIII: Decreased hearing bilaterally. Cranial nerve IX, X: Palate e levates. Cranial nerve XI: Elevates shoulder 5/5. Cranial nerve XII: Straight tongue. MOTOR: Decreased right hand tong hooker, 4+/5. SENSATION: Decreased for glove and sock area for light touch and temperature. COORDINATION: [id number] test, could not assess. HEART: Regular rate and rhythm. LUNGS: Equal breath sounds. ABDOMEN: Soft, relaxed, nondistended. No tenderness. ASSESSMENT AND PLAN 1. The patient is a 71-year-old status post underlying acute encephalopathy. 2. Metabolic encephalopathy, probably secondary to hepatic liver failure in which the patient under lactulose for treatment. 3. Portal hypertension with gastrointestinal bleed secondary to liver cell failure. 4. Keep the patient under deep venous thrombosis prophylaxis and decubitus ulcer prophylaxis. 5. Electroencephalogram showed generalized slowing consistent with condition, which the patient had with underlying encephalopathy with decreased mini mental status and unresponsive. Again, thank you for asking me to see the patient with you. Dictated By: THEODORE ROBERTO/NTS Conf#: [id number] DID#: [id number] CC: MONTY GUTIERREZ MD;*EndCC*
--- NOTE | 2016-06-16 20:56 | PN ---
Date/Time of Note Date/Time of Note DATE: 06/16/16 TIME: 20:52 Assessment/Plan VTE Prophylaxis VTE Prophylaxis Intervention: SCD's Lines/Catheters IV Catheter Type (from Nrs): PICC Line Central line still needed: Yes (IV access) Urinary Cath still in place: Yes Reason Cath still needed: other (indicate) (strict I/O) Assessment/Plan Assessment/Plan 1. 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 Severe Anemia 2/2 #1-stable 3. Decompensated Alcoholic Liver Cirrhosis with Encephalopathy -Increased Lactulose dose yesterday and Ammonia has decreased but still obtunded when off sedation and fighting the vent hence Propofol was restarted, cont sedation vacations -Abd US shows no Ascites -Hep panel shows Hx of Exposure to Hep B but no active infection 4. Hypotension: 2/2 GI Bleed-resolved - cont IVF - pressors now off, DC'd Vanco as there is no e/o infection 5. Low TSH 2/2 sick euthyroid -T4 is nl 6. Resp Failure -intubated on ventilator PPx-SCDs discussed with son today and updated him about plan- he cancelled his palliative care meeting today with Subjective 24 Hr Interval Summary Free Text/Dictation pt remains intubated, making good urine output Exam/Review of Systems Vital Signs Vitals Vital Signs Date Time Temp Pulse Resp B/P Pulse Ox O2 Delivery O2 Flow Rate FiO2 06/16/16 20:00 98.9 64 19 110/58 99 Mechanical Ventilator 06/16/16 19:26 30 Intake and Output 06/15/16 06/15/16 06/16/16 15:00 23:00 07:00 Intake Total 760 ml 440 ml 613.5 ml Output Total 935 ml 740 ml 250 ml Balance -175 ml -300 ml 363.5 ml Exam Constitutional: non-verbal ENMT: intubated Respiratory: clear to auscultation Cardiovascular: regular rate and rhythm Gastrointestinal: distended, soft Extremities: edema Results Result Diagram: 06/16/16 0400 06/16/16 0400 Results 24 hrs Laboratory Tests Test 06/15/16 23:54 06/16/16 04:00 06/16/16 05:53 06/16/16 07:00 Bedside Glucose 103 116 Ammonia 27 Anion Gap 14 Basophils # 0.1 Basophils % 1.3 Blood Urea Nitrogen 19 Calcium Level 8.2 L Carbon Dioxide Level 29 Chloride Level 104 Creatinine 0.85 Eosinophils # 0.7 H Eosinophils % 8.6 H Glucose Level 110 Hematocrit 30.7 L Hemoglobin 9.2 L Lymphocytes # 1.0 Lymphocytes % 13.2 L Magnesium Level 2.0 Mean Corpuscular Hemoglobin 26.7 L Mean Corpuscular Hemoglobin Concent 30.0 L Mean Corpuscular Volume 89.0 Mean Platelet Volume 11.0 H Monocytes # 0.8 Monocytes % 10.1 Neutrophils # 5.0 Neutrophils % 66.3 Nucleated Red Blood Cells # 0.0 Nucleated Red Blood Cells % 0.0 Phosphorus Level 3.0 Platelet Count 124 L Potassium Level 3.0 L Red Blood Count 3.45 L Red Cell Distribution Width 18.1 H Sodium Level 144 White Blood Count 7.5 Arterial Blood HCO3 27.2 H Arterial Blood Base Excess 2.7 Arterial Blood Oxygen Saturation 96.0 Adelso Test ACCEPTAB Arterial Blood Gas Puncture Site Right Radial Arterial Blood Carboxyhemoglobin 0.3 Arterial Blood Date Drawn 06/16/2016 7:16:53 AM Arterial Blood Methemoglobin 0.3 Arterial Blood pCO2 (Temp correct) 41.8 Arterial Blood pH (Temp corrected) 7.432 Arterial Blood pO2 (Temp corrected) 88.9 Blood Gas A-a O2 Differential 75.9 H Blood Gas Actual Respiration Rate 15 Blood Gas Low PEEP Setting 5.0 Blood Gas Modality VENT - AC Blood Gas Notified Time 06/16/2016 7:56:42 AM Blood Gas Notified Whom JLD Blood Gas Respiration Rate 12.0 Blood Gas Specimen Source Blood arterial Blood Gas Temperature 37.0 Blood Gas Tidal Volume 650.0 FiO2 30.0 Oxyhemoglobin Percent 95.4 Total Hemoglobin 9.8 L Test 06/16/16 13:10 06/16/16 18:24 Bedside Glucose 114 119 Medications Medications Current Medications Ondansetron HCl (Zofran Inj) 4 mg Q6H PRN IV NAUSEA AND/OR VOMITING; Start 06/09 at 04:30 Morphine Sulfate (morphine) 2 mg Q4H PRN IV PAIN LEVEL 7-10 Last administered on 06/14/16t 09:40; Admin Dose 2 MG; Start 06/09/16 at 04:30 Lorazepam (Ativan) 1 mg Q2H PRN IV ANXIETY Last administered on 06/16/16 04:10 ; Admin Dose 1 MG; Start 06/09/16 at 04:30 Dutasteride (Avodart) 0.5 mg AM PO ; Start 06/09/16 at 09:00 Finasteride (Proscar) 5 mg AM PO Last administered on 06/16/16 09:31; Admin Dose 5 MG; Start 06/09/16 at 09:00 Levothyroxine Sodium 50 mcg 50 mcg DAILY@06 PO Last administered on 06/16/16 05 :45; Admin Dose 50 MCG; Start 06/09/16 at 06:00 Norepinephrine 16 mg/Dextrose 500 ml @ 1.87 mls/hr TITRATE IV Last administered on 06/09/16 12:58; Admin Dose 1.87 MLS/HR; Start 06/09/16 at 10:00 Propofol 100 ml @ 3 mls/hr Q12H IV Last administered on 06/15/16 04:55; Admin Dose 12 MLS/HR; Start 06/09/16 at 06:30 Cefepime HCl (Maxipime 1gm/50 ml (Pmx)) 50 ml @ 100 mls/hr Q12 IVPB Last administered on 06/16/16 20:31; Admin Dose 100 MLS/HR; Start 06/09/16 at 12:00 IV Flush (NS 10 ml) 10 ml PRN PRN IV IV PROTOCOL; Start 06/09/16 at 17:00 Insulin Aspart (Novolog Insulin Pen) NOVOLOG *MILD* ALGORITHM Q6 SC Last administered on 06/11/16 23:36; Admin Dose 1 UNIT; Start 06/11/16 at 12:00 Diagnostic Test (Pha) (Accucheck) 1 ea 02 XX Last administered on 06/15/16 02: 00; Admin Dose 1 EA; Start 06/12/16 at 02:00 Miscellaneous Information 1 ea NOTE XX ; Start 06/11/16 at 08:30 Glucose (Glutose) 15 gm Q15M PRN PO DECREASED GLUCOSE; Start 06/11/16 at 08:30 Glucose (Glutose) 22.5 gm Q15M PRN PO DECREASED GLUCOSE; Start 06/11/16 at 08:30 Dextrose (D50w Syringe) 25 ml Q15M PRN IV DECREASED GLUCOSE; Start 06/11/16 at 08:30 Dextrose (D50w Syringe) 50 ml Q15M PRN IV DECREASED GLUCOSE; Start 06/11/16 at 08:30 Glucagon (Glucagen) 1 mg Q15M PRN IM DECREASED GLUCOSE; Start 06/11/16 at 08:30 Glucose (Glutose) 15 gm Q15M PRN BUCCAL DECREASED GLUCOSE; Start 06/11/16 at 08: 30 Rifaximin (Xifaxan) 550 mg BID PO Last administered on 06/16/16 20:27; Admin Dose 550 MG; Start 06/11/16 at 14:30 Pantoprazole (Protonix Iv) 40 mg BID@06,18 IV Last administered on 06/16/16 19: 37; Admin Dose 40 MG; Start 06/11/16 at 18:00 Furosemide (Lasix) 40 mg DAILY IV Last administered on 06/16/16 09:33; Admin Dose 40 MG; Start 06/12/16 at 13:00 Eye Lubricant (Artificial Tears Oph) 2 drop QID BOTH EYES Last administered on 06/16/16 20:34; Admin Dose 2 DROP; Start 06/12/16 at 13:00 Lactulose (Enulose) 30 gm Q8H PO Last administered on 06/16/16 20:27; Admin Dose 30 GM; Start 06/12/16 at 20:00 Hydralazine HCl (Apresoline) 10 mg Q2H PRN IV SBP>170; Start 06/12/16 at 17:00 Metoprolol Tartrate (Lopressor) 5 mg Q6H PRN IV HR>130; Start 06/14/16 at 09:00 Amiodarone HCl (Cordarone) 400 mg BID NGT Last administered on 06/16/16 20:28; Admin Dose 400 MG; Start 06/14/16 at 21:00 Metoprolol Tartrate 25 mg 25 mg BID PO Last administered on 06/15/16 21:21; Admin Dose 25 MG; Start 06/14/16 at 21:00 Fentanyl (Sublimaze) 100 ml @ 2.5 mls/hr TITRATE IV Last administered on 18:32; Admin Dose 3 MLS/HR; Start 3/7/17 at 19:30 MAURY BENITEZ MD Jun 16, 2016 20:56
[2016-06-17] VITALS (53 sets, daily range): BP systolic 83–147; BP diastolic 43–84; PULSE 59–81; RESP 11–23
[2016-06-17] MEDS: ACCU-CHEK XX SCH (00:38)
[2016-06-17] MEDS: LORAZEPAM 2 MG INJ IV PRN ×2 (03:14→15:13)
[2016-06-17] MEDS: LACTULOSE 30ML CUP PO SCH ×3 (03:18→21:41)
[2016-06-17 05:17] LABS: AADO2 Arterial 77.5 mmHg (7.0-24.0); Allen Test ACCEPTAB; Arterial Base Excess 4.4 mmol/L (-3.0-3); Arterial COHb 0.3 % (0.0-3.0); Arterial Fraction of Oxyhgb 94.7 % (93.0-99.0); Arterial HCO3 29.6 mmol/L (22.0-26.0); Arterial MetHb 0.3 % (0.0-1.5); Arterial Total Hemglobin 10.4 g/dl (12.0-18.0); MODE VENT - AC
[2016-06-17 05:49] LABS: ADD SCAN DIFF NO
[2016-06-17 05:59] LABS: BASOPHIL # 0.1 10^3/ul (0.0-0.1); BASOPHILS % 1.2 % (0.0-2.0); EOSINOPHILS # 0.6 10^3/ul (0.0-0.5); EOSINOPHILS % 9.7 % (0.0-7.0); HEMATOCRIT 28.6 % (42.0-52.0); HEMOGLOBIN 8.5 g/dl (14.0-18.0); LYMPHOCYTES # 0.7 10^3/ul (0.8-2.9); MEAN CORPUSCULAR HEMOGLOBIN 27.2 pg (29.0-33.0); MEAN CORPUSCULAR HGB CONC 29.7 g/dl (32.0-37.0); MEAN CORPUSCULAR VOLUME 91.4 fl (82.0-101.0); MEAN PLATELET VOLUME 11.1 fl (7.4-10.4); MONOCYTE # 0.6 10^3/ul (0.3-0.9); MONOCYTES % 10.4 % (0.0-11.0); NEUTROPHIL # 3.7 10^3/ul (1.6-7.5); PLATELET COUNT 119 10^3/UL (140-415); RED BLOOD COUNT 3.13 10^6/ul (4.70-6.10); RED CELL DISTRIBUTION WIDTH 17.9 % (11.5-14.5); WHITE BLOOD COUNT 5.7 10^3/ul (4.8-10.8)
[2016-06-17] MEDS: INSULIN ASPART [NOVOLOG] 3 ML PEN SC SCH ×3 (06:00→12:00)
[2016-06-17 06:07] LABS: INR 1.42; PROTIME 17.4 Sec (12.2-14.2); PT RATIO 1.4
[2016-06-17 06:08] LABS: PARTIAL THROMBOPLASTIN TIME 32.6 Sec (25.0-35.0)
[2016-06-17] MEDS: LEVOTHYROXINE 50 MCG TAB PO SCH (06:13)
[2016-06-17] MEDS: PANTOPRAZOLE 40 MG INJ IV SCH ×2 (06:13→18:28)
--- NOTE | 2016-06-17 06:18 | RADRPT ---
PROCEDURE: XR Chest. CLINICAL INDICATION: Resp failure, intubated on ventilaor TECHNIQUE: Portable single view of the chest COMPARISON: 06/16 FINDINGS: Endotracheal nasogastric tubes remain in good position. Slightly improved left base aeration with t he left diaphragm better seen. Reduced lung volumes with mild pulmonary vascular congestion again s een. IMPRESSION: Slightly improved left base aeration. Otherwise stable exam. RPTAT: HLBE Akanksha Lozoya Physician Date Time Electronically viewed and signed by Akanksha Lozoya, Physician on 06/17/2016 06:18 LE/
[2016-06-17] MEDS: PROPOFOL 100 ML IV SCH (06:23)
[2016-06-17 06:40] LABS: PHOSPHORUS 3.6 mg/dl (2.5-4.9)
[2016-06-17 06:54] LABS: POTASSIUM 3.5 mmol/L (3.5-5.1)
[2016-06-17 06:56] LABS: CREATININE 0.94 mg/dl (0.61-1.24)
[2016-06-17 06:57] LABS: CALCIUM 8.1 mg/dl (8.4-10.2)
[2016-06-17] MEDS: FENTAnyl (DRIP) 1000 mcg/100mL 100 ML IV SCH (07:48)
[2016-06-17] MEDS: RIFAXIMIN 550 MG TAB PO SCH ×2 (08:51→21:41)
[2016-06-17] MEDS: CEFEPIME 1GM/50 ML (PMX) 50 ML IVPB SCH ×2 (08:51→21:00)
[2016-06-17] MEDS: FUROSEMIDE 40 MG INJ IV SCH (08:51)
[2016-06-17] MEDS: AMIODARONE 200 MG TAB NGT SCH ×2 (08:51→21:45)
[2016-06-17] MEDS: FINASTERIDE 5 MG TAB PO SCH (08:52)
[2016-06-17] MEDS: METOPROLOL 25 MG TAB PO SCH ×2 (08:52→22:39)
[2016-06-17] MEDS: DUTASTERIDE 0.5 MG CAP PO SCH (08:53)
[2016-06-17] MEDS: ARTIFICIAL TEARS 15 ML OPH BOTH EYES SCH ×4 (08:53→21:47)
--- NOTE | 2016-06-17 10:00 | CONS ---
Date/Time of Note Date/Time of Note DATE: 06/17/16 TIME: 09:57 Assessment/Plan Assessment/Plan Additional Assessment/Plan Ventilator settings; assist control 12, tidal volume 500, PEEP of 5, 40% FiO2. Next Assessment recommendations; 1. Patient admitted for upper GI bleed status post EGD with banding of varices. Stable hematocrit. Status post back contusion. 2. History of underlying alcoholic cirrhosis. 3. Some element of hepatic and cephalic with the, with interval improvement. 4. Left lower lobe pneumonia. 5. Mild thrombocytopenia. 6. BPH. 7. History of anemia. Hold further sedation, discontinue fentanyl drip. The patient is off sedative effect will be evaluated for weaning from ventilator. Meanwhile continue supportive care. Consultation Date/Type/Reason Admit Date/Time Jun 09, 2016 at 04:01 Initial Consult Date 06/09/16 Type of Consultation: Pulmonary/critical care Referring Provider: MAURY BENITEZ MD 24 HR Interval Summary Free Text/Dictation Patient condition remains critical. However mental status is markedly improved to the point where the patient is following simple commands despite being on high-dose fentanyl drip. Patient was again given a sedation vacation yesterday but he became agitated and had to be re-sedated with fentanyl. Patient however has remained hemodynamically stable. General exam; elderly male, currently in no distress. Awake. Exam/Review of Systems Vital Signs Vitals Vital Signs Date Time Temp Pulse Resp B/P Pulse Ox O2 Delivery O2 Flow Rate FiO2 06/17/16 09:00 76 12 125/49 100 Mechanical Ventilator 06/17/16 08:00 100.8 06/17/16 05:15 30 Intake and Output 06/16/16 06/16/16 06/17/16 15:00 23:00 07:00 Intake Total 721.875 ml 678.5 ml 777.5 ml Output Total 903 ml 260 ml 220 ml Balance -181.125 ml 418.5 ml 557.5 ml Exam HEENT examination; supple neck, no JVD. No lymphadenopathy. Midline trachea. There is significant reduction in bilateral subconjunctival edema. Also there is significant reduction in right sub conjunctival hemorrhage. Pupils are small bilaterally. Bilateral intraocular lens implants are present. Dentition is fair. Orally intubated. Chest examination; clear to auscultation bilaterally. S1-S2 audible, no murmurs. Regular rhythm. Abdomen examination of Mario soft, protuberant. Nontender. Bowel sounds audible. Extremity examination; no peripheral edema. Pulses 2+ bilaterally. 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 Results Result Diagram: 06/17/16 0500 06/17/16 0500 Results 24 hrs Laboratory Tests Test 06/16/16 13:10 06/16/16 18:24 06/17/16 00:10 06/17/16 05:00 Bedside Glucose 114 119 87 Activated Partial Thromboplast Time 32.6 Arterial Blood HCO3 29.6 H Arterial Blood Base Excess 4.4 H Arterial Blood Oxygen Saturation 95.3 Adelso Test ACCEPTAB Arterial Blood Gas Puncture Site Right Radial Anion Gap 13 Arterial Blood Carboxyhemoglobin 0.3 Arterial Blood Date Drawn 06/17/2016 5:10:54 AM Arterial Blood Methemoglobin 0.3 Arterial Blood pCO2 (Temp correct) 47.5 H Arterial Blood pH (Temp corrected) 7.413 Arterial Blood pO2 (Temp corrected) 80.6 Basophils # 0.1 Basophils % 1.2 Blood Gas A-a O2 Differential 77.5 H Blood Gas Actual Respiration Rate 17 Blood Gas Low PEEP Setting 5.0 Blood Gas Modality VENT - AC Blood Gas Notified Time 06/17/2016 5:17:38 AM Blood Gas Notified Whom MA Blood Gas Respiration Rate 12.0 Blood Gas Specimen Source Blood arterial Blood Gas Temperature 37.0 Blood Gas Tidal Volume 500.0 Blood Urea Nitrogen 24 H Calcium Level 8.1 L Carbon Dioxide Level 30 Chloride Level 107 Creatinine 0.94 Eosinophils # 0.6 H Eosinophils % 9.7 H FiO2 30.0 Glucose Level 102 Hematocrit 28.6 L Hemoglobin 8.5 L INR International Normalized Ratio 1.42 Lymphocytes # 0.7 L Lymphocytes % 13.0 L Magnesium Level 2.0 Mean Corpuscular Hemoglobin 27.2 L Mean Corpuscular Hemoglobin Concent 29.7 L Mean Corpuscular Volume 91.4 Mean Platelet Volume 11.1 H Monocytes # 0.6 Monocytes % 10.4 Neutrophils # 3.7 Neutrophils % 65.0 Nucleated Red Blood Cells # 0.0 Nucleated Red Blood Cells % 0.0 Oxyhemoglobin Percent 94.7 Phosphorus Level 3.6 Platelet Count 119 L Potassium Level 3.5 Prothrombin Time 17.4 H Prothrombin Time Ratio 1.4 Red Blood Count 3.13 L Red Cell Distribution Width 17.9 H Sodium Level 146 H Total Hemoglobin 10.4 L White Blood Count 5.7 # Test 06/17/16 06:22 Bedside Glucose 79 Medications Medications Current Medications Ondansetron HCl (Zofran Inj) 4 mg Q6H PRN IV NAUSEA AND/OR VOMITING; Start 06/09 at 04:30 Morphine Sulfate (morphine) 2 mg Q4H PRN IV PAIN LEVEL 7-10 Last administered on 06/14/16 09:40; Admin Dose 2 MG; Start 06/09/16 at 04:30 Lorazepam (Ativan) 1 mg Q2H PRN IV ANXIETY Last administered on 06/17/16 03:14 ; Admin Dose 1 MG; Start 06/09/16 at 04:30 Dutasteride (Avodart) 0.5 mg AM PO ; Start 06/09/16 at 09:00 Finasteride (Proscar) 5 mg AM PO Last administered on 06/17/16 08:52; Admin Dose 5 MG; Start 06/09/16 at 09:00 Levothyroxine Sodium 50 mcg 50 mcg DAILY@06 PO Last administered on 06/17/16 06 :13; Admin Dose 50 MCG; Start 06/09/16 at 06:00 Norepinephrine 16 mg/Dextrose 500 ml @ 1.87 mls/hr TITRATE IV Last administered on 06/09/16 12:58; Admin Dose 1.87 MLS/HR; Start 06/09/16 at 10:00 Propofol 100 ml @ 3 mls/hr Q12H IV Last administered on 06/15/16 04:55; Admin Dose 12 MLS/HR; Start 06/09/16 at 06:30 Cefepime HCl (Maxipime 1gm/50 ml (Pmx)) 50 ml @ 100 mls/hr Q12 IVPB Last administered on 06/17/16 08:51; Admin Dose 100 MLS/HR; Start 06/09/16 at 12:00 IV Flush (NS 10 ml) 10 ml PRN PRN IV IV PROTOCOL; Start 06/09/16 at 17:00 Insulin Aspart (Novolog Insulin Pen) NOVOLOG *MILD* ALGORITHM Q6 SC Last administered on 06/11/16 23:36; Admin Dose 1 UNIT; Start 06/11/16 at 12:00 Diagnostic Test (Pha) (Accucheck) 1 ea 02 XX Last administered on 06/15/16 02: 00; Admin Dose 1 EA; Start 06/12/16 at 02:00 Miscellaneous Information 1 ea NOTE XX ; Start 06/11/16 at 08:30 Glucose (Glutose) 15 gm Q15M PRN PO DECREASED GLUCOSE; Start 06/11/16 at 08:30 Glucose (Glutose) 22.5 gm Q15M PRN PO DECREASED GLUCOSE; Start 06/11/16 at 08:30 Dextrose (D50w Syringe) 25 ml Q15M PRN IV DECREASED GLUCOSE; Start 06/11/16 at 08:30 Dextrose (D50w Syringe) 50 ml Q15M PRN IV DECREASED GLUCOSE; Start 06/11/16 at 08:30 Glucagon (Glucagen) 1 mg Q15M PRN IM DECREASED GLUCOSE; Start 06/11/16 at 08:30 Glucose (Glutose) 15 gm Q15M PRN BUCCAL DECREASED GLUCOSE; Start 06/11/16 at 08: 30 Rifaximin (Xifaxan) 550 mg BID PO Last administered on 06/17/16 08:51; Admin Dose 550 MG; Start 06/11/16 at 14:30 Pantoprazole (Protonix Iv) 40 mg BID@06,18 IV Last administered on 06/17/16 06: 13; Admin Dose 40 MG; Start 06/11/16 at 18:00 Furosemide (Lasix) 40 mg DAILY IV Last administered on 06/17/16 08:51; Admin Dose 40 MG; Start 06/12/16 at 13:00 Eye Lubricant (Artificial Tears Oph) 2 drop QID BOTH EYES Last administered on 06/17/16 08:53; Admin Dose 2 DROP; Start 06/12/16 at 13:00 Lactulose (Enulose) 30 gm Q8H PO Last administered on 06/16/16 20:27; Admin Dose 30 GM; Start 06/12/16 at 20:00 Hydralazine HCl (Apresoline) 10 mg Q2H PRN IV SBP>170; Start 06/12/16 at 17:00 Metoprolol Tartrate (Lopressor) 5 mg Q6H PRN IV HR>130; Start 06/14/16 at 09:00 Amiodarone HCl (Cordarone) 400 mg BID NGT Last administered on 06/17/16 08:51; Admin Dose 400 MG; Start 06/14/16 at 21:00 Metoprolol Tartrate 25 mg 25 mg BID PO Last administered on 06/17/16 08:52; Admin Dose 25 MG; Start 06/14/16 at 21:00 Fentanyl (Sublimaze) 100 ml @ 2.5 mls/hr TITRATE IV Last administered on 07:48; Admin Dose 5 MLS/HR; Start 06/15/16 at 19:30 LEE ANN LEROY Jun 17, 2016 10:00
--- NOTE | 2016-06-17 11:46 | CONS ---
Date/Time of Note Date/Time of Note DATE: 06/17/16 TIME: 11:42 Assessment/Plan Assessment/Plan Chief Complaint/Hosp Course IMPRESSION: 1. Paroxysmal atrial fibrillation/atrial flutter, now back in sinus rhythm and remains thus 2. Abnormal electrocardiogram. Assess for acute coronary syndrome. 3. Hypotension, now improved. 4. Gastrointestinal bleed. 5. Cirrhosis. 6. Encephalopathy. 7. Anemia, severe, status post transfusions. 8. Hypernatremia. 9. Coagulopathy Recc: -Tele -Continue amiodarone PO for now -Continue BB as tolerated -No asa/systemic anti-coag secondary to anemia/GIB -Continue abx's and f/u cx data -Follow MS closely -Folloe Hgb closely -Continue gentle lasix diuresis and follow volume status closely -Free water for elevated na Problems: Consultation Date/Type/Reason Admit Date/Time Jun 09, 2016 at 04:01 Initial Consult Date 06/09/16 Type of Consultation: Cardiology Reason for Consultation PAF/AFL Referring Provider: MAURY BENITEZ MD Exam/Review of Systems Vital Signs Vitals Vital Signs Date Time Temp Pulse Resp B/P Pulse Ox O2 Delivery O2 Flow Rate FiO2 06/17/16 09:00 76 12 125/49 100 Mechanical Ventilator 06/17/16 08:00 100.8 06/17/16 05:15 30 Intake and Output 06/16/16 06/16/16 06/17/16 15:00 23:00 07:00 Intake Total 721.875 ml 678.5 ml 777.5 ml Output Total 903 ml 260 ml 220 ml Balance -181.125 ml 418.5 ml 557.5 ml Exam Review of Systems: CONSTITUTIONAL: No fevers, chills. PULMONARY: intubated CARDIOVASCULAR: No obvious chest pain/palpitations GASTROINTESTINAL: No nausea/vomiting. GENITOURINARY: No hematuria/dysuria. MUSCULOSKELETAL: No obvious myagias/arthalgias. PSYCHIATRIC: The patient denies depression. NEUROLOGIC: sedated Constitutional: other (sedated) Psych: no complaints Head: normocephalic ENMT: intubated, mucosa pink and moist Neck: jvd, supple Respiratory: other (upper airway brhocherous sounds) Cardiovascular: regular rate and rhythm Gastrointestinal: non-tender, soft Musculoskeletal: muscle tone (normal) Extremities: edema (none) Neurological: other (No focal deficits) Results Result Diagram: 06/17/16 0500 06/17/16 0500 Results 24 hrs Laboratory Tests Test 06/16/16 13:10 06/16/16 18:24 06/17/16 00:10 06/17/16 05:00 Bedside Glucose 114 119 87 Activated Partial Thromboplast Time 32.6 Arterial Blood HCO3 29.6 H Arterial Blood Base Excess 4.4 H Arterial Blood Oxygen Saturation 95.3 Adelso Test ACCEPTAB Arterial Blood Gas Puncture Site Right Radial Anion Gap 13 Arterial Blood Carboxyhemoglobin 0.3 Arterial Blood Date Drawn 06/17/2016 5:10:54 AM Arterial Blood Methemoglobin 0.3 Arterial Blood pCO2 (Temp correct) 47.5 H Arterial Blood pH (Temp corrected) 7.413 Arterial Blood pO2 (Temp corrected) 80.6 Basophils # 0.1 Basophils % 1.2 Blood Gas A-a O2 Differential 77.5 H Blood Gas Actual Respiration Rate 17 Blood Gas Low PEEP Setting 5.0 Blood Gas Modality VENT - AC Blood Gas Notified Time 06/17/2016 5:17:38 AM Blood Gas Notified Whom MA Blood Gas Respiration Rate 12.0 Blood Gas Specimen Source Blood arterial Blood Gas Temperature 37.0 Blood Gas Tidal Volume 500.0 Blood Urea Nitrogen 24 H Calcium Level 8.1 L Carbon Dioxide Level 30 Chloride Level 107 Creatinine 0.94 Eosinophils # 0.6 H Eosinophils % 9.7 H FiO2 30.0 Glucose Level 102 Hematocrit 28.6 L Hemoglobin 8.5 L INR International Normalized Ratio 1.42 Lymphocytes # 0.7 L Lymphocytes % 13.0 L Magnesium Level 2.0 Mean Corpuscular Hemoglobin 27.2 L Mean Corpuscular Hemoglobin Concent 29.7 L Mean Corpuscular Volume 91.4 Mean Platelet Volume 11.1 H Monocytes # 0.6 Monocytes % 10.4 Neutrophils # 3.7 Neutrophils % 65.0 Nucleated Red Blood Cells # 0.0 Nucleated Red Blood Cells % 0.0 Oxyhemoglobin Percent 94.7 Phosphorus Level 3.6 Platelet Count 119 L Potassium Level 3.5 Prothrombin Time 17.4 H Prothrombin Time Ratio 1.4 Red Blood Count 3.13 L Red Cell Distribution Width 17.9 H Sodium Level 146 H Total Hemoglobin 10.4 L White Blood Count 5.7 # Test 06/17/16 06:22 Bedside Glucose 79 Medications Medications Current Medications Ondansetron HCl (Zofran Inj) 4 mg Q6H PRN IV NAUSEA AND/OR VOMITING; Start 06/09 at 04:30 Morphine Sulfate (morphine) 2 mg Q4H PRN IV PAIN LEVEL 7-10 Last administered on 06/14/16 09:40; Admin Dose 2 MG; Start 06/09/16 at 04:30 Lorazepam (Ativan) 1 mg Q2H PRN IV ANXIETY Last administered on 06/17/16 03:14 ; Admin Dose 1 MG; Start 06/09/16 at 04:30 Dutasteride (Avodart) 0.5 mg AM PO ; Start 06/09/16 at 09:00 Finasteride (Proscar) 5 mg AM PO Last administered on 06/17/16 08:52; Admin Dose 5 MG; Start 06/09/16 at 09:00 Levothyroxine Sodium 50 mcg 50 mcg DAILY@06 PO Last administered on 06/17/16 06 :13; Admin Dose 50 MCG; Start 06/09/16 at 06:00 Norepinephrine 16 mg/Dextrose 500 ml @ 1.87 mls/hr TITRATE IV Last administered on 06/09/16 12:58; Admin Dose 1.87 MLS/HR; Start 06/09/16 at 10:00 Propofol 100 ml @ 3 mls/hr Q12H IV Last administered on 06/15/16 04:55; Admin Dose 12 MLS/HR; Start 06/09/16 at 06:30 Cefepime HCl (Maxipime 1gm/50 ml (Pmx)) 50 ml @ 100 mls/hr Q12 IVPB Last administered on 06/17/16 08:51; Admin Dose 100 MLS/HR; Start 06/09/16 at 12:00 IV Flush (NS 10 ml) 10 ml PRN PRN IV IV PROTOCOL; Start 06/09/16 at 17:00 Insulin Aspart (Novolog Insulin Pen) NOVOLOG *MILD* ALGORITHM Q6 SC Last administered on 06/11/16 23:36; Admin Dose 1 UNIT; Start 06/11/16 at 12:00 Diagnostic Test (Pha) (Accucheck) 1 ea 02 XX Last administered on 06/15/16 02: 00; Admin Dose 1 EA; Start 06/12/16 at 02:00 Miscellaneous Information 1 ea NOTE XX ; Start 06/11/16 at 08:30 Glucose (Glutose) 15 gm Q15M PRN PO DECREASED GLUCOSE; Start 06/11/16 at 08:30 Glucose (Glutose) 22.5 gm Q15M PRN PO DECREASED GLUCOSE; Start 06/11/16 at 08:30 Dextrose (D50w Syringe) 25 ml Q15M PRN IV DECREASED GLUCOSE; Start 06/11/16 at 08:30 Dextrose (D50w Syringe) 50 ml Q15M PRN IV DECREASED GLUCOSE; Start 06/11/16 at 08:30 Glucagon (Glucagen) 1 mg Q15M PRN IM DECREASED GLUCOSE; Start 06/11/16 at 08:30 Glucose (Glutose) 15 gm Q15M PRN BUCCAL DECREASED GLUCOSE; Start 06/11/16 at 08: 30 Rifaximin (Xifaxan) 550 mg BID PO Last administered on 06/17/16 08:51; Admin Dose 550 MG; Start 06/11/16 at 14:30 Pantoprazole (Protonix Iv) 40 mg BID@06,18 IV Last administered on 06/17/16 06: 13; Admin Dose 40 MG; Start 06/11/16 at 18:00 Furosemide (Lasix) 40 mg DAILY IV Last administered on 06/17/16 08:51; Admin Dose 40 MG; Start 06/12/16 at 13:00 Eye Lubricant (Artificial Tears Oph) 2 drop QID BOTH EYES Last administered on 06/17/16 08:53; Admin Dose 2 DROP; Start 06/12/16 at 13:00 Lactulose (Enulose) 30 gm Q8H PO Last administered on 06/16/16 20:27; Admin Dose 30 GM; Start 06/12/16 at 20:00 Hydralazine HCl (Apresoline) 10 mg Q2H PRN IV SBP>170; Start 06/12/16 at 17:00 Metoprolol Tartrate (Lopressor) 5 mg Q6H PRN IV HR>130; Start 06/14/16 at 09:00 Amiodarone HCl (Cordarone) 400 mg BID NGT Last administered on 06/17/16 08:51; Admin Dose 400 MG; Start 06/14/16 at 21:00 Metoprolol Tartrate 25 mg 25 mg BID PO Last administered on 06/17/16 08:52; Admin Dose 25 MG; Start 06/14/16 at 21:00 Fentanyl (Sublimaze) 100 ml @ 2.5 mls/hr TITRATE IV Last administered on 07:48; Admin Dose 5 MLS/HR; Start 06/15/16 at 19:30 ANGELES ODONNELL Jun 17, 2016 11:46
--- NOTE | 2016-06-17 12:44 | PN ---
DATE: 06/17/2016 HISTORY OF PRESENT ILLNESS: Mr. Menon is still on the ventilator. His son cancelled the appoint ment I had with him on 06/15/2016; however, I will remain available for a family conference in the e vents they change their mind. OBJECTIVE: VITAL SIGNS: Blood pressure 125/49, pulse is 76 and regular, respirations of 12, 100% saturation, 3 0% FIO2. CHEST: Clear. COR: Regular rate and rhythm. NEUROLOGICAL: He does awaken, but he does not follow simple commands. He does track me. He moves bilateral upper and lower extremities nonpurposefully. LABORATORIES: Laboratory tests have been reviewed. ASSESSMENT AND PLAN: I will continue to support family members at this time. The patient remains a FULL CODE. Dictated By: SHERIF GOMES MD, LP/RICK Conf#: [id number] DID#: [id number]
[2016-06-17] MEDS ORDERED: LACTULOSE 30ML CUP PO SCH (13:00)
[2016-06-17] MEDS: ACETAMINOPHEN 650MG/20.3ML CUP NGT PRN (13:01)
[2016-06-17 13:09] LABS: AADO2 Arterial 99.3 mmHg (7.0-24.0); Allen Test ACCEPTAB; Arterial Base Excess 3.9 mmol/L (-3.0-3); Arterial COHb 0.3 % (0.0-3.0); Arterial HCO3 27.4 mmol/L (22.0-26.0); Arterial MetHb 0.3 % (0.0-1.5); Arterial Total Hemglobin 10.1 g/dl (12.0-18.0); Blood Gas PS 10; MODE VENT - CPAP
--- NOTE | 2016-06-17 14:16 | CONS ---
Date/Time of Note Date/Time of Note DATE: 06/17/16 TIME: 14:05 Assessment/Plan Assessment/Plan Additional Assessment/Plan 1. 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 - continue Protonix 40 mg IV BID 2. Severe Anemia 2/2 #1-stable - monitor h/h. transfuse 2 units if hgb less than 7.5. 3. Decompensated Alcoholic Liver Cirrhosis with Encephalopathy. 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 - continue lactulose -pt last drink a year ago. Encouraged continued abstinence 4. Hypotension: 2/2 GI Bleed-resolved - cont IVF Further recommendations depend on clinical course Patient seen in collaboration with Dr. Arce Consultation Date/Type/Reason Admit Date/Time Jun 09, 2016 at 04:01 Initial Consult Date 06/09/16 Type of Consultation: GI Referring Provider: MAURY BENITEZ MD 24 HR Interval Summary Free Text/Dictation Hgb stable Recently extubated Exam/Review of Systems Vital Signs Vitals Vital Signs Date Time Temp Pulse Resp B/P Pulse Ox O2 Delivery O2 Flow Rate FiO2 06/17/16 12:00 77 06/17/16 09:00 12 125/49 100 Mechanical Ventilator 06/17/16 08:00 100.8 06/17/16 05:15 30 Intake and Output 06/16/16 06/16/16 06/17/16 15:00 23:00 07:00 Intake Total 721.875 ml 678.5 ml 777.5 ml Output Total 903 ml 260 ml 220 ml Balance -181.125 ml 418.5 ml 557.5 ml Exam Constitutional: non-verbal Psych: confusion Head: atraumatic, normocephalic Eyes: nl conjunctiva, nl lids ENMT: nl external ears & nose, nl lips & teeth, nl nasal mucosa & septum Neck: non-tender, supple Respiratory: clear to auscultation, normal air movement Cardiovascular: nl pulses, regular rate and rhythm Gastrointestinal: bowel sounds, non-tender, soft Results Result Diagram: 06/17/16 0500 06/17/16 0500 Results 24 hrs Laboratory Tests Test 06/16/16 18:24 06/17/16 00:10 06/17/16 05:00 06/17/16 06:22 Bedside Glucose 119 87 79 Activated Partial Thromboplast Time 32.6 Arterial Blood HCO3 29.6 H Arterial Blood Base Excess 4.4 H Arterial Blood Oxygen Saturation 95.3 Adelso Test ACCEPTAB Arterial Blood Gas Puncture Site Right Radial Anion Gap 13 Arterial Blood Carboxyhemoglobin 0.3 Arterial Blood Date Drawn 06/17/2016 5:10:54 AM Arterial Blood Methemoglobin 0.3 Arterial Blood pCO2 (Temp correct) 47.5 H Arterial Blood pH (Temp corrected) 7.413 Arterial Blood pO2 (Temp corrected) 80.6 Basophils # 0.1 Basophils % 1.2 Blood Gas A-a O2 Differential 77.5 H Blood Gas Actual Respiration Rate 17 Blood Gas Low PEEP Setting 5.0 Blood Gas Modality VENT - AC Blood Gas Notified Time 06/17/2016 5:17:38 AM Blood Gas Notified Whom MA Blood Gas Respiration Rate 12.0 Blood Gas Specimen Source Blood arterial Blood Gas Temperature 37.0 Blood Gas Tidal Volume 500.0 Blood Urea Nitrogen 24 H Calcium Level 8.1 L Carbon Dioxide Level 30 Chloride Level 107 Creatinine 0.94 Eosinophils # 0.6 H Eosinophils % 9.7 H FiO2 30.0 Glucose Level 102 Hematocrit 28.6 L Hemoglobin 8.5 L INR International Normalized Ratio 1.42 Lymphocytes # 0.7 L Lymphocytes % 13.0 L Magnesium Level 2.0 Mean Corpuscular Hemoglobin 27.2 L Mean Corpuscular Hemoglobin Concent 29.7 L Mean Corpuscular Volume 91.4 Mean Platelet Volume 11.1 H Monocytes # 0.6 Monocytes % 10.4 Neutrophils # 3.7 Neutrophils % 65.0 Nucleated Red Blood Cells # 0.0 Nucleated Red Blood Cells % 0.0 Oxyhemoglobin Percent 94.7 Phosphorus Level 3.6 Platelet Count 119 L Potassium Level 3.5 Prothrombin Time 17.4 H Prothrombin Time Ratio 1.4 Red Blood Count 3.13 L Red Cell Distribution Width 17.9 H Sodium Level 146 H Total Hemoglobin 10.4 L White Blood Count 5.7 # Test 06/17/16 12:41 Arterial Blood HCO3 27.4 H Arterial Blood Base Excess 3.9 H Arterial Blood Oxygen Saturation 94.6 L Adelso Test ACCEPTAB Arterial Blood Gas Puncture Site Right Radial Arterial Blood Carboxyhemoglobin 0.3 Arterial Blood Date Drawn 06/17/2016 1:00:58 PM Arterial Blood Methemoglobin 0.3 Arterial Blood pCO2 (Temp correct) 37.0 Arterial Blood pH (Temp corrected) 7.487 H Arterial Blood pO2 (Temp corrected) 71.1 L Blood Gas A-a O2 Differential 99.3 H Blood Gas Actual Respiration Rate 11 Blood Gas Low PEEP Setting 5.0 Blood Gas Modality VENT - CPAP Blood Gas Notified Time 06/17/2016 1:09:34 PM Blood Gas Notified Whom JLD Blood Gas Pressure Support 10 Blood Gas Specimen Source Blood arterial Blood Gas Temperature 37.0 FiO2 30.0 Oxyhemoglobin Percent 94.0 Total Hemoglobin 10.1 L Medications Medications Current Medications Ondansetron HCl (Zofran Inj) 4 mg Q6H PRN IV NAUSEA AND/OR VOMITING; Start 06/09 at 04:30 Morphine Sulfate (morphine) 2 mg Q4H PRN IV PAIN LEVEL 7-10 Last administered on 06/14/16 09:40; Admin Dose 2 MG; Start 06/09/16 at 04:30 Lorazepam (Ativan) 1 mg Q2H PRN IV ANXIETY Last administered on 06/17/16 03:14 ; Admin Dose 1 MG; Start 06/09/16 at 04:30 Dutasteride (Avodart) 0.5 mg AM PO ; Start 06/09/16 at 09:00 Finasteride (Proscar) 5 mg AM PO Last administered on 06/17/16 08:52; Admin Dose 5 MG; Start 06/09/16 at 09:00 Levothyroxine Sodium 50 mcg 50 mcg DAILY@06 PO Last administered on 06/17/16 06 :13; Admin Dose 50 MCG; Start 06/09/16 at 06:00 Norepinephrine 16 mg/Dextrose 500 ml @ 1.87 mls/hr TITRATE IV Last administered on 06/09/16 12:58; Admin Dose 1.87 MLS/HR; Start 06/09/16 at 10:00 Cefepime HCl (Maxipime 1gm/50 ml (Pmx)) 50 ml @ 100 mls/hr Q12 IVPB Last administered on 06/17/16 08:51; Admin Dose 100 MLS/HR; Start 06/09/16 at 12:00 IV Flush (NS 10 ml) 10 ml PRN PRN IV IV PROTOCOL; Start 06/09/16 at 17:00 Miscellaneous Information 1 ea NOTE XX ; Start 06/11/16 at 08:30 Rifaximin (Xifaxan) 550 mg BID PO Last administered on 06/17/16 08:51; Admin Dose 550 MG; Start 06/11/16 at 14:30 Pantoprazole (Protonix Iv) 40 mg BID@06,18 IV Last administered on 06/17/16 06: 13; Admin Dose 40 MG; Start 06/11/16 at 18:00 Furosemide (Lasix) 40 mg DAILY IV Last administered on 06/17/16 08:51; Admin Dose 40 MG; Start 06/12/16 at 13:00 Eye Lubricant (Artificial Tears Oph) 2 drop QID BOTH EYES Last administered on 06/17/16 13:07; Admin Dose 2 DROP; Start 06/12/16 at 13:00 Hydralazine HCl (Apresoline) 10 mg Q2H PRN IV SBP>170; Start 06/12/16 at 17:00 Metoprolol Tartrate (Lopressor) 5 mg Q6H PRN IV HR>130; Start 06/14/16 at 09:00 Amiodarone HCl (Cordarone) 400 mg BID NGT Last administered on 06/17/16 08:51; Admin Dose 400 MG; Start 06/14/16 at 21:00 Metoprolol Tartrate (Lopressor) 25 mg BID PO Last administered on 06/17/16 08: 52; Admin Dose 25 MG; Start 06/14/16 at 21:00 Acetaminophen (Tylenol Liquid) 650 mg Q4H PRN NGT PAIN AND OR ELEVATED TEMP Last administered on 06/17/16 13:01; Admin Dose 650 MG; Start 06/17/16 at 12:30 Lactulose (Enulose) 30 gm BID PO ; Start 06/17/16 at 21:00 KODY SHELDON Jun 17, 2016 14:16
--- NOTE | 2016-06-17 21:28 | PN ---
Date/Time of Note Date/Time of Note DATE: 06/17/16 TIME: 21:25 Assessment/Plan VTE Prophylaxis VTE Prophylaxis Intervention: SCD's Lines/Catheters IV Catheter Type (from Nrs): PICC Line Central line still needed: Yes (IV abx) Urinary Cath still in place: Yes Reason Cath still needed: other (indicate) (intubated, on ventilator ) Assessment/Plan Assessment/Plan 1. 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 Severe Anemia 2/2 #1-stable 3. Decompensated Alcoholic Liver Cirrhosis with Encephalopathy -Increased Lactulose dose yesterday and Ammonia has decreased but still obtunded when off sedation and fighting the vent hence Propofol was restarted, cont sedation vacations -Abd US shows no Ascites -Hep panel shows Hx of Exposure to Hep B but no active infection 4. Hypotension: 2/2 GI Bleed-resolved - cont IVF - pressors now off, DC'd Vanco as there is no e/o infection 5. Low TSH 2/2 sick euthyroid -T4 is nl 6. Resp Failure -intubated on ventilator PPx-SCDs Discussed with pt family at bedside- They do not want to discuss hospice care coptions at this time Subjective 24 Hr Interval Summary Free Text/Dictation possible plan for weaning, making good urine, NH3 normal Exam/Review of Systems Vital Signs Vitals Vital Signs Date Time Temp Pulse Resp B/P Pulse Ox O2 Delivery O2 Flow Rate FiO2 06/17/16 20:07 70 18 115/47 100 06/17/16 20:01 98.4 06/17/16 18:00 Nasal Cannula 06/17/16 16:00 4.0 06/17/16 13:25 30 Intake and Output 06/16/16 06/16/16 06/17/16 15:00 23:00 07:00 Intake Total 721.875 ml 678.5 ml 777.5 ml Output Total 903 ml 260 ml 220 ml Balance -181.125 ml 418.5 ml 557.5 ml Exam Constitutional: non-verbal ENMT: intubated Respiratory: bilateral coarse BS+ Cardiovascular: regular rate and rhythm Gastrointestinal: distended, soft Extremities: edema Results Result Diagram: 06/17/16 0500 06/17/16 0500 Results 24 hrs Laboratory Tests Test 06/17/16 00:10 06/17/16 05:00 06/17/16 06:22 06/17/16 12:41 Bedside Glucose 87 79 Activated Partial Thromboplast Time 32.6 Arterial Blood HCO3 29.6 H 27.4 H Arterial Blood Base Excess 4.4 H 3.9 H Arterial Blood Oxygen Saturation 95.3 94.6 L Adelso Test ACCEPTAB ACCEPTAB Arterial Blood Gas Puncture Site Right Radial Right Radial Anion Gap 13 Arterial Blood Carboxyhemoglobin 0.3 0.3 Arterial Blood Date Drawn 06/17/2016 5:10:54 AM 06/17/2016 1:00:58 PM Arterial Blood Methemoglobin 0.3 0.3 Arterial Blood pCO2 (Temp correct) 47.5 H 37.0 Arterial Blood pH (Temp corrected) 7.413 7.487 H Arterial Blood pO2 (Temp corrected) 80.6 71.1 L Basophils # 0.1 Basophils % 1.2 Blood Gas A-a O2 Differential 77.5 H 99.3 H Blood Gas Actual Respiration Rate 17 11 Blood Gas Low PEEP Setting 5.0 5.0 Blood Gas Modality VENT - AC VENT - CPAP Blood Gas Notified Time 06/17/2016 5:17:38 AM 06/17/2016 1:09:34 PM Blood Gas Notified Whom KELIN RAND Blood Gas Respiration Rate 12.0 Blood Gas Specimen Source Blood arterial Blood arterial Blood Gas Temperature 37.0 37.0 Blood Gas Tidal Volume 500.0 Blood Urea Nitrogen 24 H Calcium Level 8.1 L Carbon Dioxide Level 30 Chloride Level 107 Creatinine 0.94 Eosinophils # 0.6 H Eosinophils % 9.7 H FiO2 30.0 30.0 Glucose Level 102 Hematocrit 28.6 L Hemoglobin 8.5 L INR International Normalized Ratio 1.42 Lymphocytes # 0.7 L Lymphocytes % 13.0 L Magnesium Level 2.0 Mean Corpuscular Hemoglobin 27.2 L Mean Corpuscular Hemoglobin Concent 29.7 L Mean Corpuscular Volume 91.4 Mean Platelet Volume 11.1 H Monocytes # 0.6 Monocytes % 10.4 Neutrophils # 3.7 Neutrophils % 65.0 Nucleated Red Blood Cells # 0.0 Nucleated Red Blood Cells % 0.0 Oxyhemoglobin Percent 94.7 94.0 Phosphorus Level 3.6 Platelet Count 119 L Potassium Level 3.5 Prothrombin Time 17.4 H Prothrombin Time Ratio 1.4 Red Blood Count 3.13 L Red Cell Distribution Width 17.9 H Sodium Level 146 H Total Hemoglobin 10.4 L 10.1 L White Blood Count 5.7 # Blood Gas Pressure Support 10 Medications Medications Current Medications Ondansetron HCl (Zofran Inj) 4 mg Q6H PRN IV NAUSEA AND/OR VOMITING; Start 06/09 at 04:30 Morphine Sulfate (morphine) 2 mg Q4H PRN IV PAIN LEVEL 7-10 Last administered on 06/14/16 09:40; Admin Dose 2 MG; Start 06/09/16 at 04:30 Lorazepam (Ativan) 1 mg Q2H PRN IV ANXIETY Last administered on 06/17/16 15:13 ; Admin Dose 1 MG; Start 06/09/16 at 04:30 Dutasteride (Avodart) 0.5 mg AM PO ; Start 06/09/16 at 09:00 Finasteride (Proscar) 5 mg AM PO Last administered on 06/17/16 08:52; Admin Dose 5 MG; Start 06/09/16 at 09:00 Levothyroxine Sodium 50 mcg 50 mcg DAILY@06 PO Last administered on 06/17/16 06 :13; Admin Dose 50 MCG; Start 06/09/16 at 06:00 Norepinephrine 16 mg/Dextrose 500 ml @ 1.87 mls/hr TITRATE IV Last administered on 06/09/16 12:58; Admin Dose 1.87 MLS/HR; Start 06/09/16 at 10:00 Cefepime HCl (Maxipime 1gm/50 ml (Pmx)) 50 ml @ 100 mls/hr Q12 IVPB Last administered on 06/17/16 08:51; Admin Dose 100 MLS/HR; Start 06/09/16 at 12:00 IV Flush (NS 10 ml) 10 ml PRN PRN IV IV PROTOCOL; Start 06/09/16 at 17:00 Miscellaneous Information 1 ea NOTE XX ; Start 06/11/16 at 08:30 Rifaximin (Xifaxan) 550 mg BID PO Last administered on 06/17/16 08:51; Admin Dose 550 MG; Start 06/11/16 at 14:30 Pantoprazole (Protonix Iv) 40 mg BID@06,18 IV Last administered on 06/17/16 18: 28; Admin Dose 40 MG; Start 06/11/16 at 18:00 Furosemide (Lasix) 40 mg DAILY IV Last administered on 06/17/16 08:51; Admin Dose 40 MG; Start 06/12/16 at 13:00 Eye Lubricant (Artificial Tears Oph) 2 drop QID BOTH EYES Last administered on 06/17/16 17:54; Admin Dose 2 DROP; Start 06/12/16 at 13:00 Hydralazine HCl (Apresoline) 10 mg Q2H PRN IV SBP>170; Start 06/12/16 at 17:00 Metoprolol Tartrate (Lopressor) 5 mg Q6H PRN IV HR>130; Start 06/14/16 at 09:00 Amiodarone HCl (Cordarone) 400 mg BID NGT Last administered on 06/17/16 08:51; Admin Dose 400 MG; Start 06/14/16 at 21:00 Metoprolol Tartrate (Lopressor) 25 mg BID PO Last administered on 06/17/16 08: 52; Admin Dose 25 MG; Start 06/14/16 at 21:00 Acetaminophen (Tylenol Liquid) 650 mg Q4H PRN NGT PAIN AND OR ELEVATED TEMP Last administered on 06/17/16 13:01; Admin Dose 650 MG; Start 06/17/16 at 12:30 Lactulose (Enulose) 30 gm BID PO ; Start 06/17/16 at 21:00 MAURY BENITEZ MD Jun 17, 2016 21:28
[2016-06-18] VITALS (28 sets, daily range): BP systolic 102–148; BP diastolic 49–76; PULSE 70–84; RESP 14–22
[2016-06-18] MEDS: ACETAMINOPHEN 650MG/20.3ML CUP NGT PRN ×2 (02:49→16:51)
[2016-06-18 04:50] LABS: AADO2 Arterial 94.3 mmHg (7.0-24.0); Allen Test ACCEPTAB; Arterial Base Excess 4.3 mmol/L (-3.0-3); Arterial COHb 0.3 % (0.0-3.0); Arterial Fraction of Oxyhgb 95.9 % (93.0-99.0); Arterial HCO3 28.8 mmol/L (22.0-26.0); Arterial MetHb 0.3 % (0.0-1.5); Arterial Total Hemglobin 9.8 g/dl (12.0-18.0); MODE NASAL CANNULA
[2016-06-18 05:02] LABS: ADD SCAN DIFF NO
[2016-06-18 05:07] LABS: BASOPHIL # 0.1 10^3/ul (0.0-0.1); BASOPHILS % 0.8 % (0.0-2.0); EOSINOPHILS # 0.4 10^3/ul (0.0-0.5); EOSINOPHILS % 4.7 % (0.0-7.0); HEMATOCRIT 29.2 % (42.0-52.0); HEMOGLOBIN 8.8 g/dl (14.0-18.0); LYMPHOCYTES # 0.7 10^3/ul (0.8-2.9); LYMPHOCYTES % 8.9 % (15.0-51.0); MEAN CORPUSCULAR HEMOGLOBIN 27.1 pg (29.0-33.0); MEAN CORPUSCULAR HGB CONC 30.1 g/dl (32.0-37.0); MEAN CORPUSCULAR VOLUME 89.8 fl (82.0-101.0); MEAN PLATELET VOLUME 11.4 fl (7.4-10.4); MONOCYTE # 0.6 10^3/ul (0.3-0.9); MONOCYTES % 7.5 % (0.0-11.0); NEUTROPHIL # 6.1 10^3/ul (1.6-7.5); NEUTROPHILS % 77.6 % (39.0-77.0); PLATELET COUNT 126 10^3/UL (140-415); RED BLOOD COUNT 3.25 10^6/ul (4.70-6.10); RED CELL DISTRIBUTION WIDTH 17.7 % (11.5-14.5); WHITE BLOOD COUNT 7.9 10^3/ul (4.8-10.8)
[2016-06-18 05:16] LABS: INR 1.34; PROTIME 16.7 Sec (12.2-14.2); PT RATIO 1.3
[2016-06-18 05:21] LABS: PARTIAL THROMBOPLASTIN TIME 33.4 Sec (25.0-35.0)
[2016-06-18 05:23] LABS: ALBUMIN 2.7 g/dl (3.3-4.9); POTASSIUM 3.3 mmol/L (3.5-5.1)
[2016-06-18 05:26] LABS: ALBUMIN/GLOBULIN RATIO 0.79; BILIRUBIN,INDIRECT 0.4 mg/dl (0-1.1); BILIRUBIN,TOTAL 0.4 mg/dl (0.2-1.3); CREATININE 0.84 mg/dl (0.61-1.24); TOTAL PROTEIN 6.1 g/dl (6.1-8.1)
[2016-06-18] MEDS: LEVOTHYROXINE 50 MCG TAB PO SCH (05:58)
[2016-06-18] MEDS: PANTOPRAZOLE 40 MG INJ IV SCH ×2 (05:58→18:54)
--- NOTE | 2016-06-18 07:27 | SP ---
DATE OF PROCEDURE: REFERRING PHYSICIAN: ____. Thank you for asking me to see the patient. HISTORY OF PRESENT ILLNESS: The patient is a 71-year-old male with a past medical history of end-st age liver disease. The patient with gastrointestinal bleed with portal hypertension. The patient w as extubated today, was following simple commands; however, still confused. CURRENT MEDICATIONS: Include: 1. ____ mg once a day. 2. Protonix 40 mg once a day. 3. Lasix 20 mg once a day. 4. Avodart 0.5 mg once a day. 5. Proscar 5 mg once a day. 6. Propofol once a day. 7. Synthroid 50 mcg once a day. 8. Zofran 4 mg every 6 hours as needed. 9. Albuterol inhaler. 10. Ativan 1 mg as needed. 11. Morphine sulfate 2 mg as needed. PHYSICAL EXAMINATION: GENERAL: On exam today, the patient is alert, awake, and follows simple commands. He looks confuse d. He followed by his family in the room. CRANIAL NERVES: Cranial nerve II: Pupils equal on both sides, reactive to light. Cranial nerves I II, IV and : Extraocular muscles intact. Cranial nerve V: Equal sensation to face. Cranial ner ve VII: Symmetrical face. Cranial nerve VIII: Equal hearing bilaterally. Cranial nerves IX, X: Elevates ____. Cranial nerve XI: Elevates shoulder 5/5. Cranial nerve XII: With straight tongue. 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 Sensation decreased for glove and sock area for light touc h and temperature. COORDINATION: Eparsi-rh-cblk test could not assess. HEART: Regular rate and rhythm. LUNGS: Equal breath sounds. ABDOMEN: Soft, relaxed, nondistended. No tenderness. ASSESSMENT AND PLAN: 1. The patient is a 71-year-old male with underlying acute encephalopathy. 2. Status post toxic metabolic secondary to liver cell failure. 3. History of portal hypertension secondary to end-stage liver disease with gastrointestinal bleedi ng. 4. The patient has Ativan which makes him confused, so I am stopping ____, do not give him Ativan, except if very necessary, like for sleep or for agitation. 5. I ____ his son over the phone today, his granddaughter, and his daughter about his status. Again, thank you for asking me to see the patient with you. Dictated By: THEODORE ROBERTO/RICK Conf#: [id number] DID#: [id number]
[2016-06-18] MEDS: CEFEPIME 1GM/50 ML (PMX) 50 ML IVPB SCH (08:53)
[2016-06-18] MEDS: AMIODARONE 200 MG TAB NGT SCH ×2 (08:55→20:50)
[2016-06-18] MEDS: morphine 2 MG INJ IV PRN (08:55)
[2016-06-18] MEDS: LACTULOSE 30ML CUP PO SCH ×2 (09:00→20:50)
[2016-06-18] MEDS: DUTASTERIDE 0.5 MG CAP PO SCH (09:00)
[2016-06-18] MEDS: FUROSEMIDE 40 MG INJ IV SCH (09:28)
[2016-06-18] MEDS: METOPROLOL 25 MG TAB PO SCH ×2 (09:29→22:00)
[2016-06-18] MEDS: RIFAXIMIN 550 MG TAB PO SCH ×2 (09:29→20:51)
[2016-06-18] MEDS: FINASTERIDE 5 MG TAB PO SCH (09:29)
[2016-06-18] MEDS: ARTIFICIAL TEARS 15 ML OPH BOTH EYES SCH ×4 (09:35→20:51)
--- NOTE | 2016-06-18 10:16 | RADRPT ---
PROCEDURE: XR Chest. CLINICAL INDICATION: Shortness of breath TECHNIQUE: An AP view of the chest was obtained. COMPARISON: Chest x-ray dated 06/17/2016 FINDINGS: The endotracheal tube has been removed. The tip of the enteric tube extends below the left diaphrag m. Lung volumes are low. There is prominence of the interstitial and central pulmonary vascular maxime ngs. No pleural effusion or pneumothorax is seen. The cardiomediastinal silhouette is mildly enl arged . Calcifications are seen within the aortic arch. The osseous structures demonstrate senescen t changes. IMPRESSION: 1. Low lung volumes with findings suggestive of pulmonary vascular congestion. No significant inte rval change. 2. Mild cardiomegaly and aortic atherosclerosis. 3. Tubes and lines, as described above. RPTAT: HH .Lesley Flores MD, Date Time Electronically viewed and signed by .Lesley Flores MD, on 06/18/2016 10:15 .G/
--- NOTE | 2016-06-18 10:25 | CONS ---
Date/Time of Note Date/Time of Note DATE: 06/18/16 TIME: 10:22 Assessment/Plan Assessment/Plan Additional Assessment/Plan Assessment recommendations; 1. Patient admitted for upper GI bleed due to variceal bleeding status post EGD with banding of varices. Without any further GI bleed. With stable hematocrit. 2. History of alcoholic cirrhosis. 3. Some element of hepatic enthesopathy however patient is clinically much improved. 4. Status post respiratory failure. 5. Anemia. 6. BPH. 7. History of cardiac arrhythmia. 8. Hypothyroidism. 9. History of hypertension. Continue current treatment. Discontinue cefepime. Patient was transferred to the medical floor. We are going to sign off. Thanks for the consult. Please reconsult if needed. Consultation Date/Type/Reason Admit Date/Time Jun 09, 2016 at 04:01 Initial Consult Date 06/09/16 Type of Consultation: Pulmonary/critical care Referring Provider: MAURY BENTIEZ MD 24 HR Interval Summary Free Text/Dictation Patient condition is markedly improved. He was successfully extubated yesterday afternoon. Has remained hemodynamically stable. Also patient remains quite awake and alert. Still having some difficulty swallowing. General exam; elderly male, currently in no distress. Exam/Review of Systems Vital Signs Vitals Vital Signs Date Time Temp Pulse Resp B/P Pulse Ox O2 Delivery O2 Flow Rate FiO2 06/18/16 09:00 84 17 134/66 100 Nasal Cannula 4.0 06/18/16 08:00 100.0 06/17/16 13:25 30 Intake and Output 06/17/16 06/17/16 06/18/16 15:00 23:00 07:00 Intake Total 374.50 ml 750 ml 760 ml Output Total 1032 ml 303 ml 285 ml Balance -657.50 ml 447 ml 475 ml Exam H EENT examination; supple neck, no JVD. No lymphadenopathy. Midline trachea. No thyromegaly. Pupils are midsize bilaterally. Chest examination; clear to auscultation bilaterally. S1-S2 audible, no murmurs. Regular rhythm. Abdomen examination; soft, protuberant. Nontender. Bowel sounds audible. Extremity examination; no peripheral edema. Pulses 1+ bilaterally. There is no clubbing. CHIP SEPARATOR examination; no focal deficit. Results Result Diagram: 3/10/17 0400 3/10/17 0400 Results 24 hrs Laboratory Tests Test 06/17/16 12:41 06/18/16 04:00 06/18/16 05:00 Arterial Blood HCO3 27.4 H 28.8 H Arterial Blood Base Excess 3.9 H 4.3 H Arterial Blood Oxygen Saturation 94.6 L 96.5 Adelso Test ACCEPTAB ACCEPTAB Arterial Blood Gas Puncture Site Right Radial Right Radial Arterial Blood Carboxyhemoglobin 0.3 0.3 Arterial Blood Date Drawn 06/17/2016 1:00:58 PM 06/18/2016 4:38:38 AM Arterial Blood Methemoglobin 0.3 0.3 Arterial Blood pCO2 (Temp correct) 37.0 42.8 Arterial Blood pH (Temp corrected) 7.487 H 7.446 Arterial Blood pO2 (Temp corrected) 71.1 L 91.0 H Blood Gas A-a O2 Differential 99.3 H 94.3 H Blood Gas Actual Respiration Rate 11 14 Blood Gas Low PEEP Setting 5.0 Blood Gas Modality VENT - CPAP NASAL CANNULA Blood Gas Notified Time 06/17/2016 1:09:34 PM 06/18/2016 4:50:08 AM Blood Gas Notified Whom GIORGI HAAS Blood Gas Pressure Support 10 Blood Gas Specimen Source Blood arterial Blood arterial Blood Gas Temperature 37.0 37.0 FiO2 30.0 33.0 Oxyhemoglobin Percent 94.0 95.9 Total Hemoglobin 10.1 L 9.8 L Activated Partial Thromboplast Time 33.4 Alanine Aminotransferase (ALT/SGPT) 45 Albumin 2.7 L Albumin/Globulin Ratio 0.79 Alkaline Phosphatase 151 H Anion Gap 14 Aspartate Amino Transf (AST/SGOT) 40 Basophils # 0.1 Basophils % 0.8 Blood Urea Nitrogen 23 H Calcium Level 8.0 L Carbon Dioxide Level 29 Chloride Level 106 Creatinine 0.84 Direct Bilirubin 0.00 Eosinophils # 0.4 Eosinophils % 4.7 Globulin 3.40 H Glucose Level 141 Hematocrit 29.2 L Hemoglobin 8.8 L INR International Normalized Ratio 1.34 Indirect Bilirubin 0.4 Lymphocytes # 0.7 L Lymphocytes % 8.9 L Mean Corpuscular Hemoglobin 27.1 L Mean Corpuscular Hemoglobin Concent 30.1 L Mean Corpuscular Volume 89.8 Mean Platelet Volume 11.4 H Monocytes # 0.6 Monocytes % 7.5 Neutrophils # 6.1 Neutrophils % 77.6 H Nucleated Red Blood Cells # 0.0 Nucleated Red Blood Cells % 0.0 Platelet Count 126 L Potassium Level 3.3 L Prothrombin Time 16.7 H Prothrombin Time Ratio 1.3 Red Blood Count 3.25 L Red Cell Distribution Width 17.7 H Sodium Level 146 H Total Bilirubin 0.4 Total Protein 6.1 White Blood Count 7.9 # Medications Medications Current Medications Ondansetron HCl (Zofran Inj) 4 mg Q6H PRN IV NAUSEA AND/OR VOMITING; Start 06/09 at 04:30 Morphine Sulfate (morphine) 2 mg Q4H PRN IV PAIN LEVEL 7-10 Last administered on 06/18/16 08:55; Admin Dose 2 MG; Start 06/09/16 at 04:30 Lorazepam (Ativan) 1 mg Q2H PRN IV ANXIETY Last administered on 06/17/16 15:13 ; Admin Dose 1 MG; Start 06/09/16 at 04:30 Dutasteride (Avodart) 0.5 mg AM PO ; Start 06/09/16 at 09:00 Finasteride (Proscar) 5 mg AM PO Last administered on 06/18/16 09:29; Admin Dose 5 MG; Start 06/09/16 at 09:00 Levothyroxine Sodium 50 mcg 50 mcg DAILY@06 PO Last administered on 06/18/16 05:58; Admin Dose 50 MCG; Start 06/09/16 at 06:00 Norepinephrine 16 mg/Dextrose 500 ml @ 1.87 mls/hr TITRATE IV Last administered on 06/09/16 12:58; Admin Dose 1.87 MLS/HR; Start 06/09/16 at 10:00 Cefepime HCl (Maxipime 1gm/50 ml (Pmx)) 50 ml @ 100 mls/hr Q12 IVPB Last administered on 06/18/16 08:53; Admin Dose 100 MLS/HR; Start 06/09/16 at 12:00 IV Flush (NS 10 ml) 10 ml PRN PRN IV IV PROTOCOL; Start 06/09/16 at 17:00 Miscellaneous Information 1 ea NOTE XX ; Start 06/11/16 at 08:30 Rifaximin (Xifaxan) 550 mg BID PO Last administered on 06/18/16 09:29; Admin Dose 550 MG; Start 06/11/16 at 14:30 Pantoprazole (Protonix Iv) 40 mg BID@06,18 IV Last administered on 06/18/16 05 :58; Admin Dose 40 MG; Start 06/11/16 at 18:00 Furosemide (Lasix) 40 mg DAILY IV Last administered on 06/18/16 09:28; Admin Dose 40 MG; Start 06/12/16 at 13:00 Eye Lubricant (Artificial Tears Oph) 2 drop QID BOTH EYES Last administered on 06/18/16 09:35; Admin Dose 2 DROP; Start 06/12/16 at 13:00 Hydralazine HCl (Apresoline) 10 mg Q2H PRN IV SBP>170; Start 06/12/16 at 17:00 Metoprolol Tartrate (Lopressor) 5 mg Q6H PRN IV HR>130; Start 06/14/16 at 09:00 Amiodarone HCl (Cordarone) 400 mg BID NGT Last administered on 06/18/16 08:55 ; Admin Dose 400 MG; Start 06/14/16 at 21:00 Metoprolol Tartrate (Lopressor) 25 mg BID PO Last administered on 06/18/16 09: 29; Admin Dose 25 MG; Start 06/14/16 at 21:00 Acetaminophen (Tylenol Liquid) 650 mg Q4H PRN NGT PAIN AND OR ELEVATED TEMP Last administered on 06/18/16 02:49; Admin Dose 650 MG; Start 06/17/16 at 12:30 Lactulose (Enulose) 30 gm BID PO Last administered on 06/17/16 21:41; Admin Dose 30 GM; Start 06/17/16 at 21:00 LEE ANN LEROY Jun 18, 2016 10:25
--- NOTE | 2016-06-18 10:56 | CONS ---
Date/Time of Note Date/Time of Note DATE: 06/18/16 TIME: 10:52 Assessment/Plan Assessment/Plan Chief Complaint/Hosp Course IMPRESSION: 1. Paroxysmal atrial fibrillation/atrial flutter, now back in sinus rhythm and remains thus 2. Abnormal electrocardiogram. Assess for acute coronary syndrome. 3. Hypotension, now improved. 4. Gastrointestinal bleed. 5. Cirrhosis. 6. Encephalopathy. 7. Anemia, severe, status post transfusions. 8. Hypernatremia. 9. Coagulopathy Recc: -Tele -Continue amiodarone PO for now -Continue BB as tolerated -No asa/systemic anti-coag secondary to anemia/GIB -Continue abx's and f/u cx data -Follow MS closely -Follow Hgb closely -Continue gentle lasix diuresis and follow volume status closely -Free water for elevated na Problems: Consultation Date/Type/Reason Admit Date/Time Jun 09, 2016 at 04:01 Initial Consult Date 06/09/16 Type of Consultation: Cardiology Reason for Consultation PAF/AFL Referring Provider: MAURY BENITEZ MD Exam/Review of Systems Vital Signs Vitals Vital Signs Date Time Temp Pulse Resp B/P Pulse Ox O2 Delivery O2 Flow Rate FiO2 06/18/16 09:00 84 17 134/66 100 Nasal Cannula 4.0 06/18/16 08:00 100.0 06/17/16 13:25 30 Intake and Output 06/17/16 06/17/16 06/18/16 15:00 23:00 07:00 Intake Total 374.50 ml 750 ml 760 ml Output Total 1032 ml 303 ml 285 ml Balance -657.50 ml 447 ml 475 ml Exam Review of Systems: CONSTITUTIONAL: No fevers, chills. PULMONARY: s/p extubation CARDIOVASCULAR: No chest pain/palpitations GASTROINTESTINAL: No nausea/vomiting. GENITOURINARY: No hematuria/dysuria. MUSCULOSKELETAL: No myagias/arthalgias. PSYCHIATRIC: The patient denies depression. NEUROLOGIC: Lethargic Constitutional: alert Psych: no complaints Head: normocephalic ENMT: mucosa pink and moist Neck: supple Respiratory: clear to auscultation Cardiovascular: regular rate and rhythm Gastrointestinal: non-tender, soft Musculoskeletal: muscle tone (normal) Extremities: edema (none) Neurological: other (No focal deficits) Results Result Diagram: 06/18/16 0400 06/18/16 0400 Results 24 hrs Laboratory Tests Test 06/17/16 12:41 06/18/16 04:00 06/18/16 05:00 Arterial Blood HCO3 27.4 H 28.8 H Arterial Blood Base Excess 3.9 H 4.3 H Arterial Blood Oxygen Saturation 94.6 L 96.5 Adelso Test ACCEPTAB ACCEPTAB Arterial Blood Gas Puncture Site Right Radial Right Radial Arterial Blood Carboxyhemoglobin 0.3 0.3 Arterial Blood Date Drawn 06/17/2016 1:00:58 PM 06/18/2016 4:38:38 AM Arterial Blood Methemoglobin 0.3 0.3 Arterial Blood pCO2 (Temp correct) 37.0 42.8 Arterial Blood pH (Temp corrected) 7.487 H 7.446 Arterial Blood pO2 (Temp corrected) 71.1 L 91.0 H Blood Gas A-a O2 Differential 99.3 H 94.3 H Blood Gas Actual Respiration Rate 11 14 Blood Gas Low PEEP Setting 5.0 Blood Gas Modality VENT - CPAP NASAL CANNULA Blood Gas Notified Time 06/17/2016 1:09:34 PM 06/18/2016 4:50:08 AM Blood Gas Notified Whom GIORGI HAAS Blood Gas Pressure Support 10 Blood Gas Specimen Source Blood arterial Blood arterial Blood Gas Temperature 37.0 37.0 FiO2 30.0 33.0 Oxyhemoglobin Percent 94.0 95.9 Total Hemoglobin 10.1 L 9.8 L Activated Partial Thromboplast Time 33.4 Alanine Aminotransferase (ALT/SGPT) 45 Albumin 2.7 L Albumin/Globulin Ratio 0.79 Alkaline Phosphatase 151 H Anion Gap 14 Aspartate Amino Transf (AST/SGOT) 40 Basophils # 0.1 Basophils % 0.8 Blood Urea Nitrogen 23 H Calcium Level 8.0 L Carbon Dioxide Level 29 Chloride Level 106 Creatinine 0.84 Direct Bilirubin 0.00 Eosinophils # 0.4 Eosinophils % 4.7 Globulin 3.40 H Glucose Level 141 Hematocrit 29.2 L Hemoglobin 8.8 L INR International Normalized Ratio 1.34 Indirect Bilirubin 0.4 Lymphocytes # 0.7 L Lymphocytes % 8.9 L Mean Corpuscular Hemoglobin 27.1 L Mean Corpuscular Hemoglobin Concent 30.1 L Mean Corpuscular Volume 89.8 Mean Platelet Volume 11.4 H Monocytes # 0.6 Monocytes % 7.5 Neutrophils # 6.1 Neutrophils % 77.6 H Nucleated Red Blood Cells # 0.0 Nucleated Red Blood Cells % 0.0 Platelet Count 126 L Potassium Level 3.3 L Prothrombin Time 16.7 H Prothrombin Time Ratio 1.3 Red Blood Count 3.25 L Red Cell Distribution Width 17.7 H Sodium Level 146 H Total Bilirubin 0.4 Total Protein 6.1 White Blood Count 7.9 # Medications Medications Current Medications Ondansetron HCl (Zofran Inj) 4 mg Q6H PRN IV NAUSEA AND/OR VOMITING; Start 06/09 at 04:30 Morphine Sulfate (morphine) 2 mg Q4H PRN IV PAIN LEVEL 7-10 Last administered on 06/18/16 08:55; Admin Dose 2 MG; Start 06/09/16 at 04:30 Lorazepam (Ativan) 1 mg Q2H PRN IV ANXIETY Last administered on 06/17/16 15:13 ; Admin Dose 1 MG; Start 06/09/16 at 04:30 Dutasteride (Avodart) 0.5 mg AM PO ; Start 06/09/16 at 09:00 Finasteride (Proscar) 5 mg AM PO Last administered on 06/18/16 09:29; Admin Dose 5 MG; Start 06/09/16 at 09:00 Levothyroxine Sodium 50 mcg 50 mcg DAILY@06 PO Last administered on 06/18/16 05:58; Admin Dose 50 MCG; Start 06/09/16 at 06:00 Norepinephrine/ Dextrose (Levophed/D5W) 500 ml @ 1.87 mls/hr TITRATE IV Last administered on 06/09/16 12:58; Admin Dose 1.87 MLS/HR; Start 06/09/16 at 10:00 IV Flush (NS 10 ml) 10 ml PRN PRN IV IV PROTOCOL; Start 06/09/16 at 17:00 Miscellaneous Information 1 ea NOTE XX ; Start 06/11/16 at 08:30 Rifaximin (Xifaxan) 550 mg BID PO Last administered on 06/18/16 09:29; Admin Dose 550 MG; Start 06/11/16 at 14:30 Pantoprazole (Protonix Iv) 40 mg BID@06,18 IV Last administered on 06/18/16 05 :58; Admin Dose 40 MG; Start 06/11/16 at 18:00 Furosemide (Lasix) 40 mg DAILY IV Last administered on 06/18/16 09:28; Admin Dose 40 MG; Start 06/12/16 at 13:00 Eye Lubricant (Artificial Tears Oph) 2 drop QID BOTH EYES Last administered on 06/18/16 09:35; Admin Dose 2 DROP; Start 06/12/16 at 13:00 Hydralazine HCl (Apresoline) 10 mg Q2H PRN IV SBP>170; Start 06/12/16 at 17:00 Metoprolol Tartrate (Lopressor) 5 mg Q6H PRN IV HR>130; Start 06/14/16 at 09:00 Amiodarone HCl (Cordarone) 400 mg BID NGT Last administered on 06/18/16 08:55 ; Admin Dose 400 MG; Start 06/14/16 at 21:00 Metoprolol Tartrate (Lopressor) 25 mg BID PO Last administered on 06/18/16 09: 29; Admin Dose 25 MG; Start 06/14/16 at 21:00 Acetaminophen (Tylenol Liquid) 650 mg Q4H PRN NGT PAIN AND OR ELEVATED TEMP Last administered on 06/18/16 02:49; Admin Dose 650 MG; Start 06/17/16 at 12:30 Lactulose (Enulose) 30 gm BID PO Last administered on 06/17/16 21:41; Admin Dose 30 GM; Start 06/17/16 at 21:00 ANGELES ODONNELL Jun 18, 2016 10:56
[2016-06-18] MEDS ORDERED: LORAZEPAM 2 MG INJ IV ONE (12:00)
[2016-06-18] MEDS ORDERED: POTASSIUM CHLORIDE 20 MEQ in SOD CHLORIDE 0.9% 100 ML IVPB ONE (13:00)
--- NOTE | 2016-06-18 13:08 | CONS ---
Date/Time of Note Date/Time of Note DATE: 06/18/16 TIME: 13:04 Assessment/Plan Assessment/Plan Additional Assessment/Plan 1. 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 - continue Protonix 40 mg IV BID 2. Severe Anemia 2/2 #1-stable - monitor h/h. transfuse 2 units if hgb less than 7.5. 3. Decompensated Alcoholic Liver Cirrhosis with Encephalopathy. 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 - continue lactulose -pt last drink a year ago. Encouraged continued abstinence 4. Hypotension: 2/2 GI Bleed-resolved - cont IVF 5. Dysphagia -Patient failed first swallow evaluation, speech therapy will continue to follow to assess ability to complete p.o. intake Further recommendations depend on clinical course Patient seen in collaboration with Dr. Arce Consultation Date/Type/Reason Admit Date/Time Jun 09, 2016 at 04:01 Initial Consult Date 06/09/16 Type of Consultation: Gastroenterology Referring Provider: MAURY BENITEZ MD 24 HR Interval Summary Free Text/Dictation Hemoglobin stable Patient failed swallow evaluation secondary to lethargy We will continue to be reassessed NG tube in at 70 with minimal residual noted Exam/Review of Systems Vital Signs Vitals Vital Signs Date Time Temp Pulse Resp B/P Pulse Ox O2 Delivery O2 Flow Rate FiO2 06/18/16 12:00 80 06/18/16 09:00 17 134/66 100 Nasal Cannula 4.0 06/18/16 08:00 100.0 06/17/16 13:25 30 Intake and Output 06/17/16 06/17/16 06/18/16 14:59 22:59 06:59 Intake Total 449.50 ml 680 ml 830 ml Output Total 987 ml 298 ml 335 ml Balance -537.50 ml 382 ml 495 ml Exam Constitutional: non-verbal Psych: confusion Head: atraumatic, normocephalic Eyes: nl conjunctiva, nl lids ENMT: nl external ears & nose, nl lips & teeth, nl nasal mucosa & septum Neck: non-tender, supple Respiratory: clear to auscultation, normal air movement Cardiovascular: nl pulses, regular rate and rhythm Gastrointestinal: bowel sounds, non-tender, soft Results Result Diagram: 06/18/16 0400 06/18/16 0400 Results 24 hrs Laboratory Tests Test 06/18/16 04:00 06/18/16 05:00 Activated Partial Thromboplast Time 33.4 Alanine Aminotransferase (ALT/SGPT) 45 Albumin 2.7 L Albumin/Globulin Ratio 0.79 Alkaline Phosphatase 151 H Anion Gap 14 Aspartate Amino Transf (AST/SGOT) 40 Basophils # 0.1 Basophils % 0.8 Blood Urea Nitrogen 23 H Calcium Level 8.0 L Carbon Dioxide Level 29 Chloride Level 106 Creatinine 0.84 Direct Bilirubin 0.00 Eosinophils # 0.4 Eosinophils % 4.7 Globulin 3.40 H Glucose Level 141 Hematocrit 29.2 L Hemoglobin 8.8 L INR International Normalized Ratio 1.34 Indirect Bilirubin 0.4 Lymphocytes # 0.7 L Lymphocytes % 8.9 L Mean Corpuscular Hemoglobin 27.1 L Mean Corpuscular Hemoglobin Concent 30.1 L Mean Corpuscular Volume 89.8 Mean Platelet Volume 11.4 H Monocytes # 0.6 Monocytes % 7.5 Neutrophils # 6.1 Neutrophils % 77.6 H Nucleated Red Blood Cells # 0.0 Nucleated Red Blood Cells % 0.0 Platelet Count 126 L Potassium Level 3.3 L Prothrombin Time 16.7 H Prothrombin Time Ratio 1.3 Red Blood Count 3.25 L Red Cell Distribution Width 17.7 H Sodium Level 146 H Total Bilirubin 0.4 Total Protein 6.1 White Blood Count 7.9 # Arterial Blood HCO3 28.8 H Arterial Blood Base Excess 4.3 H Arterial Blood Oxygen Saturation 96.5 Adelso Test ACCEPTAB Arterial Blood Gas Puncture Site Right Radial Arterial Blood Carboxyhemoglobin 0.3 Arterial Blood Date Drawn 06/18/2016 4:38:38 AM Arterial Blood Methemoglobin 0.3 Arterial Blood pCO2 (Temp correct) 42.8 Arterial Blood pH (Temp corrected) 7.446 Arterial Blood pO2 (Temp corrected) 91.0 H Blood Gas A-a O2 Differential 94.3 H Blood Gas Actual Respiration Rate 14 Blood Gas Modality NASAL CANNULA Blood Gas Notified Time 06/18/2016 4:50:08 AM Blood Gas Notified Whom SAMINA Blood Gas Specimen Source Blood arterial Blood Gas Temperature 37.0 FiO2 33.0 Oxyhemoglobin Percent 95.9 Total Hemoglobin 9.8 L Medications Medications Current Medications Ondansetron HCl (Zofran Inj) 4 mg Q6H PRN IV NAUSEA AND/OR VOMITING; Start 06/09 at 04:30 Morphine Sulfate (morphine) 2 mg Q4H PRN IV PAIN LEVEL 7-10 Last administered on 06/18/16 08:55; Admin Dose 2 MG; Start 06/09/16 at 04:30 Lorazepam (Ativan) 1 mg Q2H PRN IV ANXIETY Last administered on 06/17/16 15:13 ; Admin Dose 1 MG; Start 06/09/16 at 04:30 Dutasteride (Avodart) 0.5 mg AM PO ; Start 06/09/16 at 09:00 Finasteride (Proscar) 5 mg AM PO Last administered on 06/18/16 09:29; Admin Dose 5 MG; Start 06/09/16 at 09:00 Levothyroxine Sodium 50 mcg 50 mcg DAILY@06 PO Last administered on 06/18/16 05:58; Admin Dose 50 MCG; Start 06/09/16 at 06:00 Norepinephrine/ Dextrose (Levophed/D5W) 500 ml @ 1.87 mls/hr TITRATE IV Last administered on 06/09/16 12:58; Admin Dose 1.87 MLS/HR; Start 06/09/16 at 10:00 IV Flush (NS 10 ml) 10 ml PRN PRN IV IV PROTOCOL; Start 06/09/16 at 17:00 Miscellaneous Information 1 ea NOTE XX ; Start 06/11/16 at 08:30 Rifaximin (Xifaxan) 550 mg BID PO Last administered on 06/18/16 09:29; Admin Dose 550 MG; Start 06/11/16 at 14:30 Pantoprazole (Protonix Iv) 40 mg BID@06,18 IV Last administered on 06/18/16 05 :58; Admin Dose 40 MG; Start 06/11/16 at 18:00 Furosemide (Lasix) 40 mg DAILY IV Last administered on 06/18/16 09:28; Admin Dose 40 MG; Start 06/12/16 at 13:00 Eye Lubricant (Artificial Tears Oph) 2 drop QID BOTH EYES Last administered on 06/18/16 09:35; Admin Dose 2 DROP; Start 06/12/16 at 13:00 Hydralazine HCl (Apresoline) 10 mg Q2H PRN IV SBP>170; Start 06/12/16 at 17:00 Metoprolol Tartrate (Lopressor) 5 mg Q6H PRN IV HR>130; Start 06/14/16 at 09:00 Amiodarone HCl (Cordarone) 400 mg BID NGT Last administered on 06/18/16 08:55 ; Admin Dose 400 MG; Start 06/14/16 at 21:00 Metoprolol Tartrate (Lopressor) 25 mg BID PO Last administered on 06/18/16 09: 29; Admin Dose 25 MG; Start 06/14/16 at 21:00 Acetaminophen (Tylenol Liquid) 650 mg Q4H PRN NGT PAIN AND OR ELEVATED TEMP Last administered on 06/18/16 02:49; Admin Dose 650 MG; Start 06/17/16 at 12:30 Lactulose 30 gm 30 gm BID PO Last administered on 06/17/16 21:41; Admin Dose 30 GM; Start 06/17/16 at 21:00 Potassium Chloride/Sodium Chloride (KCl/NS) 110 ml @ 55 mls/hr ONCE ONCE IVPB ; Start 06/18/16 at 13:00; Stop 06/18/16 at 14:59 KODY SHELDON Jun 18, 2016 13:07
--- NOTE | 2016-06-18 20:16 | PN ---
Date/Time of Note Date/Time of Note DATE: 06/18/16 TIME: 20:13 Assessment/Plan VTE Prophylaxis VTE Prophylaxis Intervention: SCD's Lines/Catheters IV Catheter Type (from Nrs): PICC Line Central line still needed: Yes (IV access ) Urinary Cath still in place: Yes Reason Cath still needed: other (indicate) (intubatd, strict I/O) Assessment/Plan Assessment/Plan 1. 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 Severe Anemia 2/2 #1-stable 3. Decompensated Alcoholic Liver Cirrhosis with Encephalopathy -Increased Lactulose dose yesterday and Ammonia has decreased but still obtunded when off sedation and fighting the vent hence Propofol was restarted, cont sedation vacations -Abd US shows no Ascites -Hep panel shows Hx of Exposure to Hep B but no active infection 4. Hypotension: 2/2 GI Bleed-resolved - cont IVF - pressors now off, DC'd Vanco as there is no e/o infection 5. Low TSH 2/2 sick euthyroid -T4 is nl 6. Resp Failure -intubated on ventilator PPx-SCDs Discussed with pt family at bedside- They do not want to discuss hospice care coptions at this time Patient failed swallow evaluation secondary to lethargy We will continue to be reassessed NG tube in at 70 with minimal residual noted pt extubated yesteday but he is very confused lethargic, he is at risk of re intubation, will keep pt in ICU for close monitoring Subjective 24 Hr Interval Summary Free Text/Dictation pt extubated, but very lethargic confused not following commands Exam/Review of Systems Vital Signs Vitals Vital Signs Date Time Temp Pulse Resp B/P Pulse Ox O2 Delivery O2 Flow Rate FiO2 06/18/16 18:00 101.4 74 17 102/49 96 Nasal Cannula 4.0 06/17/16 13:25 30 Intake and Output 06/17/16 06/17/16 06/18/16 15:00 23:00 07:00 Intake Total 374.50 ml 750 ml 830 ml Output Total 1032 ml 303 ml 315 ml Balance -657.50 ml 447 ml 515 ml Exam Constitutional: non-verbal Psych: confusion Head: atraumatic, normocephalic Eyes: nl conjunctiva, nl lids ENMT: nl external ears & nose, nl lips & teeth, nl nasal mucosa & septum Neck: non-tender, supple Respiratory: clear to auscultation, normal air movement Cardiovascular: nl pulses, regular rate and rhythm Gastrointestinal: bowel sounds, non-tender, soft Results Result Diagram: 06/18/16 0400 06/18/16 0400 Results 24 hrs Laboratory Tests Test 06/18/16 04:00 06/18/16 05:00 Activated Partial Thromboplast Time 33.4 Alanine Aminotransferase (ALT/SGPT) 45 Albumin 2.7 L Albumin/Globulin Ratio 0.79 Alkaline Phosphatase 151 H Anion Gap 14 Aspartate Amino Transf (AST/SGOT) 40 Basophils # 0.1 Basophils % 0.8 Blood Urea Nitrogen 23 H Calcium Level 8.0 L Carbon Dioxide Level 29 Chloride Level 106 Creatinine 0.84 Direct Bilirubin 0.00 Eosinophils # 0.4 Eosinophils % 4.7 Globulin 3.40 H Glucose Level 141 Hematocrit 29.2 L Hemoglobin 8.8 L INR International Normalized Ratio 1.34 Indirect Bilirubin 0.4 Lymphocytes # 0.7 L Lymphocytes % 8.9 L Mean Corpuscular Hemoglobin 27.1 L Mean Corpuscular Hemoglobin Concent 30.1 L Mean Corpuscular Volume 89.8 Mean Platelet Volume 11.4 H Monocytes # 0.6 Monocytes % 7.5 Neutrophils # 6.1 Neutrophils % 77.6 H Nucleated Red Blood Cells # 0.0 Nucleated Red Blood Cells % 0.0 Platelet Count 126 L Potassium Level 3.3 L Prothrombin Time 16.7 H Prothrombin Time Ratio 1.3 Red Blood Count 3.25 L Red Cell Distribution Width 17.7 H Sodium Level 146 H Total Bilirubin 0.4 Total Protein 6.1 White Blood Count 7.9 # Arterial Blood HCO3 28.8 H Arterial Blood Base Excess 4.3 H Arterial Blood Oxygen Saturation 96.5 Adelso Test ACCEPTAB Arterial Blood Gas Puncture Site Right Radial Arterial Blood Carboxyhemoglobin 0.3 Arterial Blood Date Drawn 06/18/2016 4:38:38 AM Arterial Blood Methemoglobin 0.3 Arterial Blood pCO2 (Temp correct) 42.8 Arterial Blood pH (Temp corrected) 7.446 Arterial Blood pO2 (Temp corrected) 91.0 H Blood Gas A-a O2 Differential 94.3 H Blood Gas Actual Respiration Rate 14 Blood Gas Modality NASAL CANNULA Blood Gas Notified Time 06/18/2016 4:50:08 AM Blood Gas Notified Whom D Blood Gas Specimen Source Blood arterial Blood Gas Temperature 37.0 FiO2 33.0 Oxyhemoglobin Percent 95.9 Total Hemoglobin 9.8 L Medications Medications Current Medications Ondansetron HCl (Zofran Inj) 4 mg Q6H PRN IV NAUSEA AND/OR VOMITING; Start 06/09 at 04:30 Morphine Sulfate (morphine) 2 mg Q4H PRN IV PAIN LEVEL 7-10 Last administered on 06/18/16 08:55; Admin Dose 2 MG; Start 06/09/16 at 04:30 Lorazepam (Ativan) 1 mg Q2H PRN IV ANXIETY Last administered on 06/17/16 15:13 ; Admin Dose 1 MG; Start 06/09/16 at 04:30 Dutasteride (Avodart) 0.5 mg AM PO ; Start 06/09/16 at 09:00 Finasteride (Proscar) 5 mg AM PO Last administered on 06/18/16 09:29; Admin Dose 5 MG; Start 06/09/16 at 09:00 Levothyroxine Sodium 50 mcg 50 mcg DAILY@06 PO Last administered on 06/18/16 05:58; Admin Dose 50 MCG; Start 06/09/16 at 06:00 Norepinephrine/ Dextrose (Levophed/D5W) 500 ml @ 1.87 mls/hr TITRATE IV Last administered on 06/09/16 12:58; Admin Dose 1.87 MLS/HR; Start 06/09/16 at 10:00 IV Flush (NS 10 ml) 10 ml PRN PRN IV IV PROTOCOL; Start 06/09/16 at 17:00 Miscellaneous Information 1 ea NOTE XX ; Start 06/11/16 at 08:30 Rifaximin (Xifaxan) 550 mg BID PO Last administered on 06/18/16 09:29; Admin Dose 550 MG; Start 06/11/16 at 14:30 Pantoprazole (Protonix Iv) 40 mg BID@06,18 IV Last administered on 06/18/16 18 :54; Admin Dose 40 MG; Start 06/11/16 at 18:00 Furosemide (Lasix) 40 mg DAILY IV Last administered on 06/18/16 09:28; Admin Dose 40 MG; Start 06/12/16 at 13:00 Eye Lubricant (Artificial Tears Oph) 2 drop QID BOTH EYES Last administered on 06/18/16 16:51; Admin Dose 2 DROP; Start 06/12/16 at 13:00 Hydralazine HCl (Apresoline) 10 mg Q2H PRN IV SBP>170; Start 06/12/16 at 17:00 Metoprolol Tartrate (Lopressor) 5 mg Q6H PRN IV HR>130; Start 06/14/16 at 09:00 Amiodarone HCl (Cordarone) 400 mg BID NGT Last administered on 06/18/16 08:55 ; Admin Dose 400 MG; Start 06/14/16 at 21:00 Metoprolol Tartrate (Lopressor) 25 mg BID PO Last administered on 06/18/16 09: 29; Admin Dose 25 MG; Start 06/14/16 at 21:00 Acetaminophen (Tylenol Liquid) 650 mg Q4H PRN NGT PAIN AND OR ELEVATED TEMP Last administered on 06/18/16 16:51; Admin Dose 650 MG; Start 06/17/16 at 12:30 Lactulose (Enulose) 30 gm BID PO Last administered on 06/17/16 21:41; Admin Dose 30 GM; Start 06/17/16 at 21:00 MAURY BENITEZ MD Jun 18, 2016 20:16
--- NOTE | 2016-06-18 21:23 | RADRPT ---
PROCEDURE: XR Chest. CLINICAL INDICATION: Shortness of breath. TECHNIQUE: Single frontal view. COMPARISON: 06/18/2016. 0611 hours. FINDINGS: The nasogastric tube remains in satisfactory position. There is mild pulmonary edema, unchanged. The heart is enlarged. There is calcification in the aorta consistent with atherosclerosis. There is no pleural effusion. There is no pneumothorax. IMPRESSION: 1. Mild pulmonary edema, unchanged. 2. Cardiomegaly and atherosclerosis. 3. Otherwise normal chest x-ray. RPTAT: QQ .Emmanuel Murillo MD, MD Date Time Electronically viewed and signed by .Emmanuel Murillo MD, MD on 06/18/2016 21:22 .R/
[2016-06-19] VITALS (30 sets, daily range): BP systolic 84–126; BP diastolic 44–76; PULSE 68–91; RESP 17–22
[2016-06-19 05:00] LABS: ADD SCAN DIFF NO
[2016-06-19 05:16] LABS: BASOPHIL # 0.1 10^3/ul (0.0-0.1); BASOPHILS % 0.9 % (0.0-2.0); EOSINOPHILS # 0.2 10^3/ul (0.0-0.5); EOSINOPHILS % 2.2 % (0.0-7.0); HEMATOCRIT 28.5 % (42.0-52.0); HEMOGLOBIN 8.7 g/dl (14.0-18.0); LYMPHOCYTES # 0.8 10^3/ul (0.8-2.9); LYMPHOCYTES % 8.5 % (15.0-51.0); MEAN CORPUSCULAR HEMOGLOBIN 27.4 pg (29.0-33.0); MEAN CORPUSCULAR HGB CONC 30.5 g/dl (32.0-37.0); MEAN CORPUSCULAR VOLUME 89.6 fl (82.0-101.0); MEAN PLATELET VOLUME 11.6 fl (7.4-10.4); MONOCYTE # 0.5 10^3/ul (0.3-0.9); NEUTROPHIL # 7.6 10^3/ul (1.6-7.5); NEUTROPHILS % 82.9 % (39.0-77.0); PLATELET COUNT 126 10^3/UL (140-415); RED BLOOD COUNT 3.18 10^6/ul (4.70-6.10); RED CELL DISTRIBUTION WIDTH 18.1 % (11.5-14.5); WHITE BLOOD COUNT 9.2 10^3/ul (4.8-10.8)
[2016-06-19 05:18] LABS: ALBUMIN 2.4 g/dl (3.3-4.9); POTASSIUM 3.8 mmol/L (3.5-5.1)
[2016-06-19 05:21] LABS: ALBUMIN/GLOBULIN RATIO 0.75; BILIRUBIN,INDIRECT 0.4 mg/dl (0-1.1); BILIRUBIN,TOTAL 0.4 mg/dl (0.2-1.3); CALCIUM 7.8 mg/dl (8.4-10.2); CREATININE 0.82 mg/dl (0.61-1.24); TOTAL PROTEIN 5.6 g/dl (6.1-8.1)
[2016-06-19 05:41] LABS: AADO2 Arterial 108.9 mmHg (7.0-24.0); Allen Test ACCEPTAB; Arterial Base Excess 3.5 mmol/L (-3.0-3); Arterial COHb 0 % (0.0-3.0); Arterial Fraction of Oxyhgb 92.4 % (93.0-99.0); Arterial HCO3 26.8 mmol/L (22.0-26.0); Arterial MetHb 0.3 % (0.0-1.5); Arterial Total Hemglobin 11.8 g/dl (12.0-18.0); MODE NASAL CANNULA
[2016-06-19] MEDS: LEVOTHYROXINE 50 MCG TAB PO SCH (06:16)
[2016-06-19] MEDS: PANTOPRAZOLE 40 MG INJ IV SCH ×2 (06:16→17:37)
--- NOTE | 2016-06-19 07:57 | CONS ---
Date/Time of Note Date/Time of Note DATE: 06/19/16 TIME: 07:56 Assessment/Plan Assessment/Plan Additional Assessment/Plan 1. 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 - continue Protonix 40 mg IV BID 2. Severe Anemia 2/2 #1-stable - monitor h/h. transfuse 2 units if hgb less than 7.5. 3. Decompensated Alcoholic Liver Cirrhosis with Encephalopathy. 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 - continue lactulose -pt last drink a year ago. Encouraged continued abstinence 4. Hypotension: 2/2 GI Bleed-resolved - cont IVF 5. Dysphagia -Patient failed first swallow evaluation, speech therapy will continue to follow to assess ability to complete p.o. intake Further recommendations depend on clinical course Patient seen in collaboration with Dr. Arce Consultation Date/Type/Reason Admit Date/Time Jun 09, 2016 at 04:01 Initial Consult Date 06/09/16 Type of Consultation: Gastroenterology Referring Provider: MAURY BENITEZ MD 24 HR Interval Summary Free Text/Dictation Hgb stable NG tube at goal with minimal residual Exam/Review of Systems Vital Signs Vitals Vital Signs Date Time Temp Pulse Resp B/P Pulse Ox O2 Delivery O2 Flow Rate FiO2 06/19/16 03:00 77 18 124/57 97 Nasal Cannula 3.0 06/19/16 00:00 100.4 06/17/16 13:25 30 Intake and Output 06/18/16 06/18/16 06/19/16 15:00 23:00 07:00 Intake Total 870 ml 690 ml 760 ml Output Total 885 ml 290 ml 240 ml Balance -15 ml 400 ml 520 ml Exam Constitutional: non-verbal Psych: confusion Head: atraumatic, normocephalic Eyes: nl conjunctiva, nl lids ENMT: nl external ears & nose, nl lips & teeth, nl nasal mucosa & septum Neck: non-tender, supple Respiratory: clear to auscultation, normal air movement Cardiovascular: nl pulses, regular rate and rhythm Gastrointestinal: bowel sounds, non-tender, soft Results Result Diagram: 06/19/1643906/19/16439 Results 24 hrs Laboratory Tests Test 06/19/16 04:40 06/19/16 06:00 Alanine Aminotransferase (ALT/SGPT) 37 Albumin 2.4 L Albumin/Globulin Ratio 0.75 Alkaline Phosphatase 140 H Ammonia 20 Anion Gap 14 Aspartate Amino Transf (AST/SGOT) 34 Basophils # 0.1 Basophils % 0.9 Blood Urea Nitrogen 26 H Calcium Level 7.8 L Carbon Dioxide Level 29 Chloride Level 109 Creatinine 0.82 Direct Bilirubin 0.00 Eosinophils # 0.2 Eosinophils % 2.2 Globulin 3.20 Glucose Level 136 Hematocrit 28.5 L Hemoglobin 8.7 L Indirect Bilirubin 0.4 Lymphocytes # 0.8 Lymphocytes % 8.5 L Mean Corpuscular Hemoglobin 27.4 L Mean Corpuscular Hemoglobin Concent 30.5 L Mean Corpuscular Volume 89.6 Mean Platelet Volume 11.6 H Monocytes # 0.5 Monocytes % 5.0 Neutrophils # 7.6 H Neutrophils % 82.9 H Nucleated Red Blood Cells # 0.0 Nucleated Red Blood Cells % 0.0 Platelet Count 126 L Potassium Level 3.8 Red Blood Count 3.18 L Red Cell Distribution Width 18.1 H Sodium Level 148 H Total Bilirubin 0.4 Total Protein 5.6 L White Blood Count 9.2 Arterial Blood HCO3 26.8 H Arterial Blood Base Excess 3.5 H Arterial Blood Oxygen Saturation 92.7 L Adelso Test ACCEPTAB Arterial Blood Gas Puncture Site Left Radial Arterial Blood Carboxyhemoglobin 0 Arterial Blood Date Drawn 06/19/2016 5:30:00 AM Arterial Blood Methemoglobin 0.3 Arterial Blood pCO2 (Temp correct) 36.0 Arterial Blood pH (Temp corrected) 7.489 H Arterial Blood pO2 (Temp corrected) 62.7 L Blood Gas A-a O2 Differential 108.9 H Blood Gas Modality NASAL CANNULA Blood Gas Notified Time 06/19/2016 5:41:00 AM Blood Gas Notified Whom MA Blood Gas Specimen Source Blood arterial Blood Gas Temperature 37.0 FiO2 30.0 Oxyhemoglobin Percent 92.4 L Total Hemoglobin 11.8 L Medications Medications Current Medications Ondansetron HCl (Zofran Inj) 4 mg Q6H PRN IV NAUSEA AND/OR VOMITING; Start 06/09 at 04:30 Morphine Sulfate (morphine) 2 mg Q4H PRN IV PAIN LEVEL 7-10 Last administered on 06/18/16t 08:55; Admin Dose 2 MG; Start 06/09/16 at 04:30 Lorazepam (Ativan) 1 mg Q2H PRN IV ANXIETY Last administered on 06/17/16 15:13 ; Admin Dose 1 MG; Start 06/09/16 at 04:30 Dutasteride (Avodart) 0.5 mg AM PO ; Start 06/09/16 at 09:00 Finasteride (Proscar) 5 mg AM PO Last administered on 06/18/16 09:29; Admin Dose 5 MG; Start 06/09/16 at 09:00 Levothyroxine Sodium 50 mcg 50 mcg DAILY@06 PO Last administered on 06/19/16 06:16; Admin Dose 50 MCG; Start 06/09/16 at 06:00 Norepinephrine/ Dextrose (Levophed/D5W) 500 ml @ 1.87 mls/hr TITRATE IV Last administered on 06/09/16 12:58; Admin Dose 1.87 MLS/HR; Start 06/09/16 at 10:00 IV Flush (NS 10 ml) 10 ml PRN PRN IV IV PROTOCOL; Start 06/09/16 at 17:00 Miscellaneous Information 1 ea NOTE XX ; Start 06/11/16 at 08:30 Rifaximin (Xifaxan) 550 mg BID PO Last administered on 06/18/16 20:51; Admin Dose 550 MG; Start 06/11/16 at 14:30 Pantoprazole (Protonix Iv) 40 mg BID@06,18 IV Last administered on 06/19/16 06 :16; Admin Dose 40 MG; Start 06/11/16 at 18:00 Furosemide (Lasix) 40 mg DAILY IV Last administered on 06/18/16 09:28; Admin Dose 40 MG; Start 06/12/16 at 13:00 Eye Lubricant (Artificial Tears Oph) 2 drop QID BOTH EYES Last administered on 06/18/16 20:51; Admin Dose 2 DROP; Start 06/12/16 at 13:00 Hydralazine HCl (Apresoline) 10 mg Q2H PRN IV SBP>170; Start 06/12/16 at 17:00 Metoprolol Tartrate (Lopressor) 5 mg Q6H PRN IV HR>130; Start 06/14/16 at 09:00 Amiodarone HCl (Cordarone) 400 mg BID NGT Last administered on 06/18/16 20:50 ; Admin Dose 400 MG; Start 06/14/16 at 21:00 Metoprolol Tartrate (Lopressor) 25 mg BID PO Last administered on 06/18/16 22: 00; Admin Dose 25 MG; Start 06/14/16 at 21:00 Acetaminophen (Tylenol Liquid) 650 mg Q4H PRN NGT PAIN AND OR ELEVATED TEMP Last administered on 06/18/16 16:51; Admin Dose 650 MG; Start 06/17/16 at 12:30 Lactulose (Enulose) 30 gm BID PO Last administered on 06/18/16 20:50; Admin Dose 30 GM; Start 06/17/16 at 21:00 KODY SHELDON Jun 19, 2016 07:57
[2016-06-19] MEDS: DUTASTERIDE 0.5 MG CAP PO SCH (08:38)
[2016-06-19] MEDS: ARTIFICIAL TEARS 15 ML OPH BOTH EYES SCH ×4 (09:00→20:40)
[2016-06-19] MEDS: ACETAMINOPHEN 650MG/20.3ML CUP NGT PRN ×2 (09:21→20:49)
[2016-06-19] MEDS: LACTULOSE 30ML CUP PO SCH (09:22)
[2016-06-19] MEDS: FINASTERIDE 5 MG TAB PO SCH (09:22)
[2016-06-19] MEDS: METOPROLOL 25 MG TAB PO SCH ×2 (09:23→20:42)
[2016-06-19] MEDS: AMIODARONE 200 MG TAB NGT SCH ×2 (09:23→20:40)
[2016-06-19] MEDS: FUROSEMIDE 40 MG INJ IV SCH (09:24)
[2016-06-19] MEDS: RIFAXIMIN 550 MG TAB PO SCH ×2 (09:24→20:40)
--- NOTE | 2016-06-19 09:55 | PN ---
Date/Time of Note Date/Time of Note DATE: 06/19/16 TIME: 09:46 Assessment/Plan VTE Prophylaxis VTE Prophylaxis Intervention: SCD's Lines/Catheters IV Catheter Type (from Nrs): PICC Line Central line still needed: Yes (IV access ) Urinary Cath still in place: Yes Reason Cath still needed: other (indicate) (intubated, sedated on Ventilator ) Assessment/Plan Assessment/Plan 1. 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 Severe Anemia 2/2 #1-stable 3. Decompensated Alcoholic Liver Cirrhosis with Encephalopathy -Increased Lactulose dose yesterday and Ammonia has decreased but still obtunded when off sedation and fighting the vent hence Propofol was restarted, cont sedation vacations -Abd US shows no Ascites -Hep panel shows Hx of Exposure to Hep B but no active infection 4. Hypotension: 2/2 GI Bleed-resolved - cont IVF - pressors now off, DC'd Vanco as there is no e/o infection 5. Low TSH 2/2 sick euthyroid -T4 is nl 6. Resp Failure -intubated on ventilator PPx-SCDs Discussed with pt family at bedside- They do not want to discuss hospice care options at this time Patient failed swallow evaluation secondary to lethargy We will continue to be reassess pt decrease rate of TF to 50cc/hour pt extubated recently but he is very confused lethargic, he is at risk of re intubation, will keep pt in ICU for close monitoring Subjective 24 Hr Interval Summary Free Text/Dictation pt continue to get low grade fever, BP stable, , still has rectal tube, lethargic Exam/Review of Systems Vital Signs Vitals Vital Signs Date Time Temp Pulse Resp B/P Pulse Ox O2 Delivery O2 Flow Rate FiO2 06/19/16 08:00 100.9 79 17 119/61 97 Nasal Cannula 2.0 06/17/16 13:25 30 Intake and Output 06/18/16 06/18/16 06/19/16 15:00 23:00 07:00 Intake Total 870 ml 690 ml 760 ml Output Total 885 ml 290 ml 240 ml Balance -15 ml 400 ml 520 ml Exam Constitutional: pt is not waking up Psych: confusion Head: atraumatic, normocephalic Eyes: nl conjunctiva, nl lids ENMT: nl external ears & nose, nl lips & teeth, nl nasal mucosa & septum Neck: non-tender, supple Respiratory: clear to auscultation, normal air movement Cardiovascular: nl pulses, regular rate and rhythm Gastrointestinal: bowel sounds, non-tender, soft + nava catheter Results Result Diagram: 06/19/16 0440 06/19/16 0440 Results 24 hrs Laboratory Tests Test 06/19/16 04:40 06/19/16 06:00 Alanine Aminotransferase (ALT/SGPT) 37 Albumin 2.4 L Albumin/Globulin Ratio 0.75 Alkaline Phosphatase 140 H Ammonia 20 Anion Gap 14 Aspartate Amino Transf (AST/SGOT) 34 Basophils # 0.1 Basophils % 0.9 Blood Urea Nitrogen 26 H Calcium Level 7.8 L Carbon Dioxide Level 29 Chloride Level 109 Creatinine 0.82 Direct Bilirubin 0.00 Eosinophils # 0.2 Eosinophils % 2.2 Globulin 3.20 Glucose Level 136 Hematocrit 28.5 L Hemoglobin 8.7 L Indirect Bilirubin 0.4 Lymphocytes # 0.8 Lymphocytes % 8.5 L Mean Corpuscular Hemoglobin 27.4 L Mean Corpuscular Hemoglobin Concent 30.5 L Mean Corpuscular Volume 89.6 Mean Platelet Volume 11.6 H Monocytes # 0.5 Monocytes % 5.0 Neutrophils # 7.6 H Neutrophils % 82.9 H Nucleated Red Blood Cells # 0.0 Nucleated Red Blood Cells % 0.0 Platelet Count 126 L Potassium Level 3.8 Red Blood Count 3.18 L Red Cell Distribution Width 18.1 H Sodium Level 148 H Total Bilirubin 0.4 Total Protein 5.6 L White Blood Count 9.2 Arterial Blood HCO3 26.8 H Arterial Blood Base Excess 3.5 H Arterial Blood Oxygen Saturation 92.7 L Adelso Test ACCEPTAB Arterial Blood Gas Puncture Site Left Radial Arterial Blood Carboxyhemoglobin 0 Arterial Blood Date Drawn 06/19/2016 5:30:00 AM Arterial Blood Methemoglobin 0.3 Arterial Blood pCO2 (Temp correct) 36.0 Arterial Blood pH (Temp corrected) 7.489 H Arterial Blood pO2 (Temp corrected) 62.7 L Blood Gas A-a O2 Differential 108.9 H Blood Gas Modality NASAL CANNULA Blood Gas Notified Time 06/19/2016 5:41:00 AM Blood Gas Notified Whom [place] Blood Gas Specimen Source Blood arterial Blood Gas Temperature 37.0 FiO2 30.0 Oxyhemoglobin Percent 92.4 L Total Hemoglobin 11.8 L Medications Medications Current Medications Ondansetron HCl (Zofran Inj) 4 mg Q6H PRN IV NAUSEA AND/OR VOMITING; Start 06/09 at 04:30 Morphine Sulfate (morphine) 2 mg Q4H PRN IV PAIN LEVEL 7-10 Last administered on 06/18/16 08:55; Admin Dose 2 MG; Start 06/09/16 at 04:30 Lorazepam (Ativan) 1 mg Q2H PRN IV ANXIETY Last administered on 06/17/16 15:13 ; Admin Dose 1 MG; Start 06/09/16 at 04:30 Dutasteride (Avodart) 0.5 mg AM PO ; Start 06/09/16 at 09:00 Finasteride (Proscar) 5 mg AM PO Last administered on 06/19/16 09:22; Admin Dose 5 MG; Start 06/09/16 at 09:00 Levothyroxine Sodium 50 mcg 50 mcg DAILY@06 PO Last administered on 06/19/16 06:16; Admin Dose 50 MCG; Start 06/09/16 at 06:00 Norepinephrine/ Dextrose (Levophed/D5W) 500 ml @ 1.87 mls/hr TITRATE IV Last administered on 06/09/16 12:58; Admin Dose 1.87 MLS/HR; Start 06/09/16 at 10:00 IV Flush (NS 10 ml) 10 ml PRN PRN IV IV PROTOCOL; Start 06/09/16 at 17:00 Miscellaneous Information 1 ea NOTE XX ; Start 06/11/16 at 08:30 Rifaximin (Xifaxan) 550 mg BID PO Last administered on 06/19/16 09:24; Admin Dose 550 MG; Start 06/11/16 at 14:30 Pantoprazole (Protonix Iv) 40 mg BID@06,18 IV Last administered on 06/19/16 06 :16; Admin Dose 40 MG; Start 06/11/16 at 18:00 Furosemide (Lasix) 40 mg DAILY IV Last administered on 06/19/16 09:24; Admin Dose 40 MG; Start 06/12/16 at 13:00 Eye Lubricant (Artificial Tears Oph) 2 drop QID BOTH EYES Last administered on 06/18/16 20:51; Admin Dose 2 DROP; Start 06/12/16 at 13:00 Hydralazine HCl (Apresoline) 10 mg Q2H PRN IV SBP>170; Start 06/12/16 at 17:00 Metoprolol Tartrate (Lopressor) 5 mg Q6H PRN IV HR>130; Start 06/14/16 at 09:00 Amiodarone HCl (Cordarone) 400 mg BID NGT Last administered on 06/19/16 09:23 ; Admin Dose 400 MG; Start 06/14/16 at 21:00 Metoprolol Tartrate (Lopressor) 25 mg BID PO Last administered on 06/19/16 09: 23; Admin Dose 25 MG; Start 06/14/16 at 21:00 Acetaminophen (Tylenol Liquid) 650 mg Q4H PRN NGT PAIN AND OR ELEVATED TEMP Last administered on 06/19/16 09:21; Admin Dose 650 MG; Start 06/17/16 at 12:30 Lactulose (Enulose) 30 gm BID PO Last administered on 06/19/16 09:22; Admin Dose 30 GM; Start 06/17/16 at 21:00 MAURY BENITEZ MD Jun 19, 2016 09:55
--- NOTE | 2016-06-19 10:24 | CONS ---
Date/Time of Note Date/Time of Note DATE: 06/19/16 TIME: 10:21 Assessment/Plan Assessment/Plan Additional Assessment/Plan Assessment recommendations; 1. Patient admitted with upper GI bleed due to esophageal varices status post EGD with banding without any further drop in hematocrit. 2. Alcoholic cirrhosis with hepatic encephalopathy. 3. History of hypo-thyroidism. 4. History of hypertension. 5. History of BPH. 6. History of anemia. Continue current supportive care. Consultation Date/Type/Reason Admit Date/Time Jun 09, 2016 at 04:01 Initial Consult Date 06/09/16 Type of Consultation: Pulmonary/critical care Referring Provider: MAURY BENITEZ MD 24 HR Interval Summary Free Text/Dictation Patient condition remains stable however the patient is still slightly lethargic. But does wake up readily and follows commands appropriately. General exam; elderly male, currently in no distress. Awake. Exam/Review of Systems Vital Signs Vitals Vital Signs Date Time Temp Pulse Resp B/P Pulse Ox O2 Delivery O2 Flow Rate FiO2 06/19/16 08:00 100.9 79 17 119/61 97 Nasal Cannula 2.0 06/17/16 13:25 30 Intake and Output 06/18/16 06/18/16 06/19/16 15:00 23:00 07:00 Intake Total 870 ml 690 ml 760 ml Output Total 885 ml 290 ml 240 ml Balance -15 ml 400 ml 520 ml Exam HEENT exam; supple neck, no JVD. No lymphadenopathy. Midline trachea. No thyromegaly. Pupils are midsize and reactive to light. Fair dentition. Chest examination; diminished but clear breath sounds bilaterally. S1-S2 audible, no murmurs. Regular rhythm. Abdomen examination; protuberant, nontender. Bowel sounds audible. Extremity examination; trace generalized edema. Pulses 1+ bilaterally. No clubbing. NURSE COORDINATOR examination; patient follows commands moves all 4 extremities. Results Result Diagram: 06/19/1643906/19/16439 Results 24 hrs Laboratory Tests Test 06/19/16 04:40 06/19/16 06:00 Alanine Aminotransferase (ALT/SGPT) 37 Albumin 2.4 L Albumin/Globulin Ratio 0.75 Alkaline Phosphatase 140 H Ammonia 20 Anion Gap 14 Aspartate Amino Transf (AST/SGOT) 34 Basophils # 0.1 Basophils % 0.9 Blood Urea Nitrogen 26 H Calcium Level 7.8 L Carbon Dioxide Level 29 Chloride Level 109 Creatinine 0.82 Direct Bilirubin 0.00 Eosinophils # 0.2 Eosinophils % 2.2 Globulin 3.20 Glucose Level 136 Hematocrit 28.5 L Hemoglobin 8.7 L Indirect Bilirubin 0.4 Lymphocytes # 0.8 Lymphocytes % 8.5 L Mean Corpuscular Hemoglobin 27.4 L Mean Corpuscular Hemoglobin Concent 30.5 L Mean Corpuscular Volume 89.6 Mean Platelet Volume 11.6 H Monocytes # 0.5 Monocytes % 5.0 Neutrophils # 7.6 H Neutrophils % 82.9 H Nucleated Red Blood Cells # 0.0 Nucleated Red Blood Cells % 0.0 Platelet Count 126 L Potassium Level 3.8 Red Blood Count 3.18 L Red Cell Distribution Width 18.1 H Sodium Level 148 H Total Bilirubin 0.4 Total Protein 5.6 L White Blood Count 9.2 Arterial Blood HCO3 26.8 H Arterial Blood Base Excess 3.5 H Arterial Blood Oxygen Saturation 92.7 L Adelso Test ACCEPTAB Arterial Blood Gas Puncture Site Left Radial Arterial Blood Carboxyhemoglobin 0 Arterial Blood Date Drawn 06/19/2016 5:30:00 AM Arterial Blood Methemoglobin 0.3 Arterial Blood pCO2 (Temp correct) 36.0 Arterial Blood pH (Temp corrected) 7.489 H Arterial Blood pO2 (Temp corrected) 62.7 L Blood Gas A-a O2 Differential 108.9 H Blood Gas Modality NASAL CANNULA Blood Gas Notified Time 06/19/2016 5:41:00 AM Blood Gas Notified Whom [place] Blood Gas Specimen Source Blood arterial Blood Gas Temperature 37.0 FiO2 30.0 Oxyhemoglobin Percent 92.4 L Total Hemoglobin 11.8 L Medications Medications Current Medications Ondansetron HCl (Zofran Inj) 4 mg Q6H PRN IV NAUSEA AND/OR VOMITING; Start 06/09 at 04:30 Morphine Sulfate (morphine) 2 mg Q4H PRN IV PAIN LEVEL 7-10 Last administered on 06/18/16 08:55; Admin Dose 2 MG; Start 06/09/16 at 04:30 Lorazepam (Ativan) 1 mg Q2H PRN IV ANXIETY Last administered on 06/17/16 15:13 ; Admin Dose 1 MG; Start 06/09/16 at 04:30 Dutasteride (Avodart) 0.5 mg AM PO ; Start 06/09/16 at 09:00 Finasteride (Proscar) 5 mg AM PO Last administered on 06/19/16 09:22; Admin Dose 5 MG; Start 06/09/16 at 09:00 Levothyroxine Sodium 50 mcg 50 mcg DAILY@06 PO Last administered on 06/19/16 06:16; Admin Dose 50 MCG; Start 06/09/16 at 06:00 Norepinephrine/ Dextrose (Levophed/D5W) 500 ml @ 1.87 mls/hr TITRATE IV Last administered on 06/09/16 12:58; Admin Dose 1.87 MLS/HR; Start 06/09/16 at 10:00 IV Flush (NS 10 ml) 10 ml PRN PRN IV IV PROTOCOL; Start 06/09/16 at 17:00 Miscellaneous Information 1 ea NOTE XX ; Start 06/11/16 at 08:30 Rifaximin (Xifaxan) 550 mg BID PO Last administered on 06/19/16 09:24; Admin Dose 550 MG; Start 06/11/16 at 14:30 Pantoprazole (Protonix Iv) 40 mg BID@06,18 IV Last administered on 06/19/16 06 :16; Admin Dose 40 MG; Start 06/11/16 at 18:00 Furosemide (Lasix) 40 mg DAILY IV Last administered on 06/19/16 09:24; Admin Dose 40 MG; Start 06/12/16 at 13:00 Eye Lubricant (Artificial Tears Oph) 2 drop QID BOTH EYES Last administered on 06/18/16 20:51; Admin Dose 2 DROP; Start 06/12/16 at 13:00 Hydralazine HCl (Apresoline) 10 mg Q2H PRN IV SBP>170; Start 06/12/16 at 17:00 Metoprolol Tartrate (Lopressor) 5 mg Q6H PRN IV HR>130; Start 06/14/16 at 09:00 Amiodarone HCl (Cordarone) 400 mg BID NGT Last administered on 06/19/16 09:23 ; Admin Dose 400 MG; Start 06/14/16 at 21:00 Metoprolol Tartrate (Lopressor) 25 mg BID PO Last administered on 06/19/16 09: 23; Admin Dose 25 MG; Start 3/6/17 at 21:00 Acetaminophen (Tylenol Liquid) 650 mg Q4H PRN NGT PAIN AND OR ELEVATED TEMP Last administered on 06/19/16 09:21; Admin Dose 650 MG; Start 06/17/16 at 12:30 Lactulose (Enulose) 30 gm BID PO Last administered on 06/19/16 09:22; Admin Dose 30 GM; Start 06/17/16 at 21:00 LEE ANN LEROY Jun 19, 2016 10:24
--- NOTE | 2016-06-19 13:06 | CONS ---
Date/Time of Note Date/Time of Note DATE: 06/19/16 TIME: 13:04 Assessment/Plan Assessment/Plan Chief Complaint/Hosp Course IMPRESSION: 1. Paroxysmal atrial fibrillation/atrial flutter, now back in sinus rhythm and remains thus 2. Abnormal electrocardiogram. Assess for acute coronary syndrome. 3. Hypotension, now improved. 4. Gastrointestinal bleed. 5. Cirrhosis. 6. Encephalopathy. 7. Anemia, severe, status post transfusions. 8. Hypernatremia. 9. Coagulopathy Recc: -Tele -Continue amiodarone PO for now -Continue BB as tolerated -No asa/systemic anti-coag secondary to anemia/GIB -Continue abx's and f/u cx data -Follow MS closely -Follow Hgb closely -Continue gentle lasix diuresis and continue to follow volume status closely -Free water for elevated na Problems: Consultation Date/Type/Reason Admit Date/Time Jun 09, 2016 at 04:01 Initial Consult Date 06/09/16 Type of Consultation: Cardiology Reason for Consultation PAF/AFL Referring Provider: MAURY BENITEZ MD Exam/Review of Systems Vital Signs Vitals Vital Signs Date Time Temp Pulse Resp B/P Pulse Ox O2 Delivery O2 Flow Rate FiO2 06/19/16 12:00 72 06/19/16 11:00 100.0 21 102/63 97 Nasal Cannula 06/19/16 08:00 2.0 06/17/16 13:25 30 Intake and Output 06/18/16 06/18/16 06/19/16 15:00 23:00 07:00 Intake Total 870 ml 690 ml 760 ml Output Total 885 ml 290 ml 240 ml Balance -15 ml 400 ml 520 ml Exam Review of Systems: CONSTITUTIONAL: No fevers, chills. PULMONARY: No sob CARDIOVASCULAR: No chest pain/palpitations GASTROINTESTINAL: No nausea/vomiting. GENITOURINARY: No hematuria/dysuria. MUSCULOSKELETAL: No myagias/arthalgias. PSYCHIATRIC: The patient denies depression. NEUROLOGIC: encephalopathy Constitutional: alert Psych: confusion Head: normocephalic ENMT: mucosa pink and moist Neck: jvd (9 cm water), supple Respiratory: diminished breath sounds (at bases/B) Cardiovascular: regular rate and rhythm Gastrointestinal: non-tender, soft Musculoskeletal: muscle tone (normal) Extremities: edema (trace/B) Neurological: lethargic Results Result Diagram: 3/11/17 0440 06/19/16 0440 Results 24 hrs Laboratory Tests Test 06/19/16 04:40 06/19/16 06:00 Alanine Aminotransferase (ALT/SGPT) 37 Albumin 2.4 L Albumin/Globulin Ratio 0.75 Alkaline Phosphatase 140 H Ammonia 20 Anion Gap 14 Aspartate Amino Transf (AST/SGOT) 34 Basophils # 0.1 Basophils % 0.9 Blood Urea Nitrogen 26 H Calcium Level 7.8 L Carbon Dioxide Level 29 Chloride Level 109 Creatinine 0.82 Direct Bilirubin 0.00 Eosinophils # 0.2 Eosinophils % 2.2 Globulin 3.20 Glucose Level 136 Hematocrit 28.5 L Hemoglobin 8.7 L Indirect Bilirubin 0.4 Lymphocytes # 0.8 Lymphocytes % 8.5 L Mean Corpuscular Hemoglobin 27.4 L Mean Corpuscular Hemoglobin Concent 30.5 L Mean Corpuscular Volume 89.6 Mean Platelet Volume 11.6 H Monocytes # 0.5 Monocytes % 5.0 Neutrophils # 7.6 H Neutrophils % 82.9 H Nucleated Red Blood Cells # 0.0 Nucleated Red Blood Cells % 0.0 Platelet Count 126 L Potassium Level 3.8 Red Blood Count 3.18 L Red Cell Distribution Width 18.1 H Sodium Level 148 H Total Bilirubin 0.4 Total Protein 5.6 L White Blood Count 9.2 Arterial Blood HCO3 26.8 H Arterial Blood Base Excess 3.5 H Arterial Blood Oxygen Saturation 92.7 L Adelso Test ACCEPTAB Arterial Blood Gas Puncture Site Left Radial Arterial Blood Carboxyhemoglobin 0 Arterial Blood Date Drawn 06/19/2016 5:30:00 AM Arterial Blood Methemoglobin 0.3 Arterial Blood pCO2 (Temp correct) 36.0 Arterial Blood pH (Temp corrected) 7.489 H Arterial Blood pO2 (Temp corrected) 62.7 L Blood Gas A-a O2 Differential 108.9 H Blood Gas Modality NASAL CANNULA Blood Gas Notified Time 06/19/2016 5:41:00 AM Blood Gas Notified Whom [place] Blood Gas Specimen Source Blood arterial Blood Gas Temperature 37.0 FiO2 30.0 Oxyhemoglobin Percent 92.4 L Total Hemoglobin 11.8 L Medications Medications Current Medications Ondansetron HCl (Zofran Inj) 4 mg Q6H PRN IV NAUSEA AND/OR VOMITING; Start 06/09 at 04:30 Morphine Sulfate (morphine) 2 mg Q4H PRN IV PAIN LEVEL 7-10 Last administered on 06/18/16 08:55; Admin Dose 2 MG; Start 06/09/16 at 04:30 Lorazepam (Ativan) 1 mg Q2H PRN IV ANXIETY Last administered on 06/17/16 15:13 ; Admin Dose 1 MG; Start 06/09/16 at 04:30 Dutasteride (Avodart) 0.5 mg AM PO ; Start 06/09/16 at 09:00 Finasteride (Proscar) 5 mg AM PO Last administered on 06/19/16 09:22; Admin Dose 5 MG; Start 06/09/16 at 09:00 Levothyroxine Sodium 50 mcg 50 mcg DAILY@06 PO Last administered on 06/19/16 06:16; Admin Dose 50 MCG; Start 06/09/16 at 06:00 Norepinephrine/ Dextrose (Levophed/D5W) 500 ml @ 1.87 mls/hr TITRATE IV Last administered on 06/09/16 12:58; Admin Dose 1.87 MLS/HR; Start 06/09/16 at 10:00 IV Flush (NS 10 ml) 10 ml PRN PRN IV IV PROTOCOL; Start 06/09/16 at 17:00 Miscellaneous Information 1 ea NOTE XX ; Start 06/11/16 at 08:30 Rifaximin (Xifaxan) 550 mg BID PO Last administered on 06/19/16 09:24; Admin Dose 550 MG; Start 06/11/16 at 14:30 Pantoprazole (Protonix Iv) 40 mg BID@06,18 IV Last administered on 06/19/16 06 :16; Admin Dose 40 MG; Start 06/11/16 at 18:00 Furosemide (Lasix) 40 mg DAILY IV Last administered on 06/19/16 09:24; Admin Dose 40 MG; Start 06/12/16 at 13:00 Eye Lubricant (Artificial Tears Oph) 2 drop QID BOTH EYES Last administered on 06/18/16 20:51; Admin Dose 2 DROP; Start 06/12/16 at 13:00 Hydralazine HCl (Apresoline) 10 mg Q2H PRN IV SBP>170; Start 06/12/16 at 17:00 Metoprolol Tartrate (Lopressor) 5 mg Q6H PRN IV HR>130; Start 06/14/16 at 09:00 Amiodarone HCl (Cordarone) 400 mg BID NGT Last administered on 06/19/16 09:23 ; Admin Dose 400 MG; Start 06/14/16 at 21:00 Metoprolol Tartrate (Lopressor) 25 mg BID PO Last administered on 06/19/16 09: 23; Admin Dose 25 MG; Start 06/14/16 at 21:00 Acetaminophen (Tylenol Liquid) 650 mg Q4H PRN NGT PAIN AND OR ELEVATED TEMP Last administered on 06/19/16 09:21; Admin Dose 650 MG; Start 06/17/16 at 12:30 Lactulose (Enulose) 30 gm DAILY PO ; Start 06/20/16 at 09:00 ANGELES ODONNELL Jun 19, 2016 13:05
[2016-06-19] MEDS: morphine 2 MG INJ IV PRN (18:13)
[2016-06-20] VITALS (26 sets, daily range): BP systolic 95–133; BP diastolic 46–75; PULSE 68–91; RESP 16–25
[2016-06-20] MEDS: PANTOPRAZOLE 40 MG INJ IV SCH ×2 (06:12→18:38)
[2016-06-20] MEDS: LEVOTHYROXINE 50 MCG TAB PO SCH (06:14)
[2016-06-20 06:52] LABS: ADD SCAN DIFF NO
[2016-06-20 07:02] LABS: BASOPHIL # 0.1 10^3/ul (0.0-0.1); BASOPHILS % 0.9 % (0.0-2.0); EOSINOPHILS # 0.3 10^3/ul (0.0-0.5); EOSINOPHILS % 3.6 % (0.0-7.0); HEMATOCRIT 29.1 % (42.0-52.0); HEMOGLOBIN 8.9 g/dl (14.0-18.0); LYMPHOCYTES # 0.7 10^3/ul (0.8-2.9); LYMPHOCYTES % 8.5 % (15.0-51.0); MEAN CORPUSCULAR HEMOGLOBIN 27.2 pg (29.0-33.0); MEAN CORPUSCULAR HGB CONC 30.6 g/dl (32.0-37.0); MEAN PLATELET VOLUME 12.1 fl (7.4-10.4); MONOCYTE # 0.5 10^3/ul (0.3-0.9); MONOCYTES % 5.6 % (0.0-11.0); NEUTROPHIL # 6.5 10^3/ul (1.6-7.5); PLATELET COUNT 129 10^3/UL (140-415); RED BLOOD COUNT 3.27 10^6/ul (4.70-6.10); RED CELL DISTRIBUTION WIDTH 18.3 % (11.5-14.5)
[2016-06-20] MEDS: ACETAMINOPHEN 650MG/20.3ML CUP NGT PRN ×2 (07:03→16:34)
[2016-06-20 07:32] LABS: CALCIUM 7.7 mg/dl (8.4-10.2); CREATININE 0.91 mg/dl (0.61-1.24); POTASSIUM 4.2 mmol/L (3.5-5.1)
--- NOTE | 2016-06-20 08:11 | CONS ---
Date/Time of Note Date/Time of Note DATE: 06/20/16 TIME: 08:11 Assessment/Plan Assessment/Plan Additional Assessment/Plan 1. 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 - continue Protonix 40 mg IV BID 2. Severe Anemia 2/2 #1-stable - monitor h/h. transfuse 2 units if hgb less than 7.5. 3. Decompensated Alcoholic Liver Cirrhosis with Encephalopathy. 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 - continue lactulose -pt last drink a year ago. Encouraged continued abstinence 4. Hypotension: 2/2 GI Bleed-resolved - cont IVF 5. Dysphagia -Patient failed first swallow evaluation, speech therapy will continue to follow to assess ability to complete p.o. intake Further recommendations depend on clinical course Patient seen in collaboration with Dr. Arce Consultation Date/Type/Reason Admit Date/Time Jun 09, 2016 at 04:01 Initial Consult Date 06/09/16 Type of Consultation: Gastroenterology Referring Provider: MAURY BENITEZ MD 24 HR Interval Summary Free Text/Dictation Hemoglobin stable Patient continues to be very confused at bedside Exam/Review of Systems Vital Signs Vitals Vital Signs Date Time Temp Pulse Resp B/P Pulse Ox O2 Delivery O2 Flow Rate FiO2 06/20/16 07:00 102.1 82 24 114/52 95 Nasal Cannula 2.0 06/17/16 13:25 30 Intake and Output 06/19/16 06/19/16 06/20/16 15:00 23:00 07:00 Intake Total 540 ml 500 ml 550 ml Output Total 500 ml 280 ml 175 ml Balance 40 ml 220 ml 375 ml Exam Constitutional: non-verbal Psych: confusion Head: atraumatic, normocephalic Eyes: nl conjunctiva, nl lids ENMT: nl external ears & nose, nl lips & teeth, nl nasal mucosa & septum Neck: non-tender, supple Respiratory: clear to auscultation, normal air movement Cardiovascular: nl pulses, regular rate and rhythm Gastrointestinal: bowel sounds, non-tender, soft Results Result Diagram: 06/20/16 0630 06/20/16 0630 Results 24 hrs Laboratory Tests Test 06/20/16 06:30 Anion Gap 15 Basophils # 0.1 Basophils % 0.9 Blood Urea Nitrogen 34 H Calcium Level 7.7 L Carbon Dioxide Level 29 Chloride Level 108 Creatinine 0.91 Eosinophils # 0.3 Eosinophils % 3.6 Glucose Level 126 Hematocrit 29.1 L Hemoglobin 8.9 L Lymphocytes # 0.7 L Lymphocytes % 8.5 L Magnesium Level 2.0 Mean Corpuscular Hemoglobin 27.2 L Mean Corpuscular Hemoglobin Concent 30.6 L Mean Corpuscular Volume 89.0 Mean Platelet Volume 12.1 H Monocytes # 0.5 Monocytes % 5.6 Neutrophils # 6.5 Neutrophils % 81.0 H Nucleated Red Blood Cells # 0.0 Nucleated Red Blood Cells % 0.0 Platelet Count 129 L Potassium Level 4.2 Red Blood Count 3.27 L Red Cell Distribution Width 18.3 H Sodium Level 148 H White Blood Count 8.0 Medications Medications Current Medications Ondansetron HCl (Zofran Inj) 4 mg Q6H PRN IV NAUSEA AND/OR VOMITING; Start 06/09 at 04:30 Morphine Sulfate (morphine) 2 mg Q4H PRN IV PAIN LEVEL 7-10 Last administered on 06/19/16 18:13; Admin Dose 2 MG; Start 06/09/16 at 04:30 Lorazepam (Ativan) 1 mg Q2H PRN IV ANXIETY Last administered on 06/17/16 15:13 ; Admin Dose 1 MG; Start 06/09/16 at 04:30 Dutasteride (Avodart) 0.5 mg AM PO ; Start 06/09/16 at 09:00 Finasteride (Proscar) 5 mg AM PO Last administered on 06/19/16 09:22; Admin Dose 5 MG; Start 06/09/16 at 09:00 Levothyroxine Sodium 50 mcg 50 mcg DAILY@06 PO Last administered on 06/20/16 06:14; Admin Dose 50 MCG; Start 06/09/16 at 06:00 Norepinephrine/ Dextrose (Levophed/D5W) 500 ml @ 1.87 mls/hr TITRATE IV Last administered on 06/09/16 12:58; Admin Dose 1.87 MLS/HR; Start 06/09/16 at 10:00 IV Flush (NS 10 ml) 10 ml PRN PRN IV IV PROTOCOL; Start 06/09/16 at 17:00 Miscellaneous Information 1 ea NOTE XX ; Start 06/11/16 at 08:30 Rifaximin (Xifaxan) 550 mg BID PO Last administered on 06/19/16 20:40; Admin Dose 550 MG; Start 06/11/16 at 14:30 Pantoprazole (Protonix Iv) 40 mg BID@,18 IV Last administered on 06/20/16 06 :12; Admin Dose 40 MG; Start 06/11/16 at 18:00 Furosemide (Lasix) 40 mg DAILY IV Last administered on 06/19/16 09:24; Admin Dose 40 MG; Start 06/12/16 at 13:00 Eye Lubricant (Artificial Tears Oph) 2 drop QID BOTH EYES Last administered on 06/19/16 20:40; Admin Dose 2 DROP; Start 06/12/16 at 13:00 Hydralazine HCl (Apresoline) 10 mg Q2H PRN IV SBP>170; Start 06/12/16 at 17:00 Metoprolol Tartrate (Lopressor) 5 mg Q6H PRN IV HR>130; Start 06/14/16 at 09:00 Amiodarone HCl (Cordarone) 400 mg BID NGT Last administered on 06/19/16 20:40 ; Admin Dose 400 MG; Start 06/14/16 at 21:00 Metoprolol Tartrate (Lopressor) 25 mg BID PO Last administered on 06/19/16 20: 42; Admin Dose 25 MG; Start 06/14/16 at 21:00 Acetaminophen (Tylenol Liquid) 650 mg Q4H PRN NGT PAIN AND OR ELEVATED TEMP Last administered on 06/20/16 07:03; Admin Dose 650 MG; Start 06/17/16 at 12:30 Lactulose (Enulose) 30 gm DAILY PO ; Start 06/20/16 at 09:00 KODY SHELDON Jun 20, 2016 08:11
[2016-06-20] MEDS: ARTIFICIAL TEARS 15 ML OPH BOTH EYES SCH ×4 (09:18→20:57)
[2016-06-20] MEDS: FUROSEMIDE 40 MG INJ IV SCH (09:19)
[2016-06-20] MEDS: AMIODARONE 200 MG TAB NGT SCH (09:20)
[2016-06-20] MEDS: LACTULOSE 30ML CUP PO SCH (09:25)
[2016-06-20] MEDS: METOPROLOL 25 MG TAB PO SCH ×2 (09:27→20:59)
[2016-06-20] MEDS: RIFAXIMIN 550 MG TAB PO SCH ×2 (09:27→20:57)
[2016-06-20] MEDS: FINASTERIDE 5 MG TAB PO SCH (09:27)
[2016-06-20] MEDS: DUTASTERIDE 0.5 MG CAP PO SCH (09:32)
--- NOTE | 2016-06-20 10:58 | CONS ---
Date/Time of Note Date/Time of Note DATE: 06/20/16 TIME: 10:56 Assessment/Plan Assessment/Plan Additional Assessment/Plan Assessment recommendations; 1. Patient admitted for upper GI bleed status post endoscopy. With banding of varices. 2. History of alcoholic cirrhosis. 3. Anemia. 4. BPH. 5. History of cardiac arrhythmia. 6. Diabetes and hypertension. 7. History of hypothyroidism. 8. Status post respiratory failure. Continue current treatment. Patient be transferred to the medical floor. We are going to sign off. Thank for the referral. Please reconsult if needed. Consultation Date/Type/Reason Admit Date/Time Jun 09, 2016 at 04:01 Initial Consult Date 06/09/16 Type of Consultation: Pulmonary/critical care Referring Provider: MAURY BENITEZ MD 24 HR Interval Summary Free Text/Dictation Patient condition is significantly improved compared to yesterday. He is much more awake alert able to talk well. Patient also has markedly improved. General exam; elderly male, currently in no distress. Awake and alert. Exam/Review of Systems Vital Signs Vitals Vital Signs Date Time Temp Pulse Resp B/P Pulse Ox O2 Delivery O2 Flow Rate FiO2 06/20/16 08:08 98.5 79 20 98/51 97 Nasal Cannula 2.0 06/17/16 13:25 30 Intake and Output 06/19/16 06/19/16 06/20/16 15:00 23:00 07:00 Intake Total 540 ml 500 ml 550 ml Output Total 500 ml 280 ml 175 ml Balance 40 ml 220 ml 375 ml Exam H EENT exam; supple neck, no JVD. No lymphadenopathy. Midline trachea. No thyromegaly. Pharynx is clear. Patient has fair dentition. Chest examination; clear to auscultation bilaterally. S1-S2 audible, no murmurs. Regular rhythm. Abdomen examination; protuberant, nontender. Bowel sounds audible. Extremity examination; no peripheral edema. 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 Results Result Diagram: 06/20/16 0630 06/20/16 0630 Results 24 hrs Laboratory Tests Test 06/20/16 06:30 Anion Gap 15 Basophils # 0.1 Basophils % 0.9 Blood Urea Nitrogen 34 H Calcium Level 7.7 L Carbon Dioxide Level 29 Chloride Level 108 Creatinine 0.91 Eosinophils # 0.3 Eosinophils % 3.6 Glucose Level 126 Hematocrit 29.1 L Hemoglobin 8.9 L Lymphocytes # 0.7 L Lymphocytes % 8.5 L Magnesium Level 2.0 Mean Corpuscular Hemoglobin 27.2 L Mean Corpuscular Hemoglobin Concent 30.6 L Mean Corpuscular Volume 89.0 Mean Platelet Volume 12.1 H Monocytes # 0.5 Monocytes % 5.6 Neutrophils # 6.5 Neutrophils % 81.0 H Nucleated Red Blood Cells # 0.0 Nucleated Red Blood Cells % 0.0 Platelet Count 129 L Potassium Level 4.2 Red Blood Count 3.27 L Red Cell Distribution Width 18.3 H Sodium Level 148 H White Blood Count 8.0 Medications Medications Current Medications Ondansetron HCl (Zofran Inj) 4 mg Q6H PRN IV NAUSEA AND/OR VOMITING; Start 06/09 at 04:30 Morphine Sulfate (morphine) 2 mg Q4H PRN IV PAIN LEVEL 7-10 Last administered on 06/19/16 18:13; Admin Dose 2 MG; Start 06/09/16 at 04:30 Lorazepam (Ativan) 1 mg Q2H PRN IV ANXIETY Last administered on 06/17/16 15:13 ; Admin Dose 1 MG; Start 06/09/16 at 04:30 Dutasteride (Avodart) 0.5 mg AM PO Last administered on 06/20/16 09:32; Admin Dose 0.5 MG; Start 06/09/16 at 09:00 Finasteride (Proscar) 5 mg AM PO Last administered on 06/20/16 09:27; Admin Dose 5 MG; Start 06/09/16 at 09:00 Levothyroxine Sodium 50 mcg 50 mcg DAILY@06 PO Last administered on 06/20/16 06:14; Admin Dose 50 MCG; Start 06/09/16 at 06:00 Norepinephrine/ Dextrose (Levophed/D5W) 500 ml @ 1.87 mls/hr TITRATE IV Last administered on 06/09/16 12:58; Admin Dose 1.87 MLS/HR; Start 06/09/16 at 10:00 IV Flush (NS 10 ml) 10 ml PRN PRN IV IV PROTOCOL; Start 06/09/16 at 17:00 Miscellaneous Information 1 ea NOTE XX ; Start 06/11/16 at 08:30 Rifaximin (Xifaxan) 550 mg BID PO Last administered on 06/20/16 09:27; Admin Dose 550 MG; Start 06/11/16 at 14:30 Pantoprazole (Protonix Iv) 40 mg BID@,18 IV Last administered on 06/20/16 06 :12; Admin Dose 40 MG; Start 06/11/16 at 18:00 Furosemide (Lasix) 40 mg DAILY IV Last administered on 06/20/16 09:19; Admin Dose 40 MG; Start 06/12/16 at 13:00 Eye Lubricant (Artificial Tears Oph) 2 drop QID BOTH EYES Last administered on 06/20/16 09:18; Admin Dose 2 DROP; Start 06/12/16 at 13:00 Hydralazine HCl (Apresoline) 10 mg Q2H PRN IV SBP>170; Start 06/12/16 at 17:00 Metoprolol Tartrate (Lopressor) 5 mg Q6H PRN IV HR>130; Start 06/14/16 at 09:00 Amiodarone HCl (Cordarone) 400 mg BID NGT Last administered on 06/20/16 09:20 ; Admin Dose 400 MG; Start 06/14/16 at 21:00 Metoprolol Tartrate (Lopressor) 25 mg BID PO Last administered on 06/20/16 09: 27; Admin Dose 25 MG; Start 06/14/16 at 21:00 Acetaminophen (Tylenol Liquid) 650 mg Q4H PRN NGT PAIN AND OR ELEVATED TEMP Last administered on 06/20/16 07:03; Admin Dose 650 MG; Start 06/17/16 at 12:30 Lactulose (Enulose) 30 gm DAILY PO Last administered on 06/20/16 09:25; Admin Dose 30 GM; Start 06/20/16 at 09:00 LEE ANN LEROY Jun 20, 2016 10:58
--- NOTE | 2016-06-20 13:09 | CONS ---
Date/Time of Note Date/Time of Note DATE: 06/20/16 TIME: 13:06 Assessment/Plan Assessment/Plan Chief Complaint/Hosp Course IMPRESSION: 1. Paroxysmal atrial fibrillation/atrial flutter, now back in sinus rhythm and remains thus 2. Abnormal electrocardiogram. Assess for acute coronary syndrome. 3. Hypotension, now improved. 4. Gastrointestinal bleed. 5. Cirrhosis. 6. Encephalopathy. 7. Anemia, severe, status post transfusions. 8. Hypernatremia. 9. Coagulopathy 10.Fever Recc: -Tele -Continue amiodarone PO but will decrease dose -Continue BB as tolerated -No asa/systemic anti-coag secondary to anemia/GIB -Continue abx's and f/u cx data -Follow MS closely -Follow Hgb closely -Continue gentle lasix diuresis and continue to follow volume status closely -Free water for elevated na -F/U cx data and consider initiation of abx's Problems: Consultation Date/Type/Reason Admit Date/Time Jun 09, 2016 at 04:01 Initial Consult Date 06/09/16 Type of Consultation: Cardiology Reason for Consultation PAF/AFL Referring Provider: MAURY BENITEZ MD Exam/Review of Systems Vital Signs Vitals Vital Signs Date Time Temp Pulse Resp B/P Pulse Ox O2 Delivery O2 Flow Rate FiO2 06/20/16 08:08 98.5 79 20 98/51 97 Nasal Cannula 2.0 06/17/16 13:25 30 Intake and Output 06/19/16 06/19/16 06/20/16 15:00 23:00 07:00 Intake Total 540 ml 500 ml 550 ml Output Total 500 ml 280 ml 175 ml Balance 40 ml 220 ml 375 ml Exam Review of Systems: CONSTITUTIONAL: No fevers, chills. PULMONARY: No sob CARDIOVASCULAR: No chest pain/palpitations GASTROINTESTINAL: No nausea/vomiting. GENITOURINARY: No hematuria/dysuria. MUSCULOSKELETAL: No myagias/arthalgias. PSYCHIATRIC: The patient denies depression. NEUROLOGIC: confused/lethargic Constitutional: alert Psych: confusion Head: normocephalic ENMT: mucosa pink and moist Neck: jvd (8-9 cm water), supple Respiratory: diminished breath sounds (at bases/B) Cardiovascular: regular rate and rhythm Gastrointestinal: non-tender, soft Musculoskeletal: muscle weakness (generalized) Extremities: edema (none) Neurological: confused, lethargic Results Result Diagram: 06/20/16 0630 06/20/16 0630 Results 24 hrs Laboratory Tests Test 06/20/16 06:30 Anion Gap 15 Basophils # 0.1 Basophils % 0.9 Blood Urea Nitrogen 34 H Calcium Level 7.7 L Carbon Dioxide Level 29 Chloride Level 108 Creatinine 0.91 Eosinophils # 0.3 Eosinophils % 3.6 Glucose Level 126 Hematocrit 29.1 L Hemoglobin 8.9 L Lymphocytes # 0.7 L Lymphocytes % 8.5 L Magnesium Level 2.0 Mean Corpuscular Hemoglobin 27.2 L Mean Corpuscular Hemoglobin Concent 30.6 L Mean Corpuscular Volume 89.0 Mean Platelet Volume 12.1 H Monocytes # 0.5 Monocytes % 5.6 Neutrophils # 6.5 Neutrophils % 81.0 H Nucleated Red Blood Cells # 0.0 Nucleated Red Blood Cells % 0.0 Platelet Count 129 L Potassium Level 4.2 Red Blood Count 3.27 L Red Cell Distribution Width 18.3 H Sodium Level 148 H White Blood Count 8.0 Medications Medications Current Medications Ondansetron HCl (Zofran Inj) 4 mg Q6H PRN IV NAUSEA AND/OR VOMITING; Start 06/09 at 04:30 Morphine Sulfate (morphine) 2 mg Q4H PRN IV PAIN LEVEL 7-10 Last administered on 06/19/16 18:13; Admin Dose 2 MG; Start 06/09/16 at 04:30 Lorazepam (Ativan) 1 mg Q2H PRN IV ANXIETY Last administered on 06/17/16 15:13 ; Admin Dose 1 MG; Start 06/09/16 at 04:30 Dutasteride (Avodart) 0.5 mg AM PO Last administered on 06/20/16 09:32; Admin Dose 0.5 MG; Start 06/09/16 at 09:00 Finasteride (Proscar) 5 mg AM PO Last administered on 06/20/16 09:27; Admin Dose 5 MG; Start 06/09/16 at 09:00 Levothyroxine Sodium 50 mcg 50 mcg DAILY@06 PO Last administered on 06/20/16 06:14; Admin Dose 50 MCG; Start 06/09/16 at 06:00 Norepinephrine/ Dextrose (Levophed/D5W) 500 ml @ 1.87 mls/hr TITRATE IV Last administered on 06/09/16 12:58; Admin Dose 1.87 MLS/HR; Start 06/09/16 at 10:00 IV Flush (NS 10 ml) 10 ml PRN PRN IV IV PROTOCOL; Start 06/09/16 at 17:00 Miscellaneous Information 1 ea NOTE XX ; Start 06/11/16 at 08:30 Rifaximin (Xifaxan) 550 mg BID PO Last administered on 06/20/16 09:27; Admin Dose 550 MG; Start 06/11/16 at 14:30 Pantoprazole (Protonix Iv) 40 mg BID@,18 IV Last administered on 06/20/16 06 :12; Admin Dose 40 MG; Start 06/11/16 at 18:00 Furosemide (Lasix) 40 mg DAILY IV Last administered on 06/20/16 09:19; Admin Dose 40 MG; Start 06/12/16 at 13:00 Eye Lubricant (Artificial Tears Oph) 2 drop QID BOTH EYES Last administered on 06/20/16 09:18; Admin Dose 2 DROP; Start 06/12/16 at 13:00 Hydralazine HCl (Apresoline) 10 mg Q2H PRN IV SBP>170; Start 06/12/16 at 17:00 Metoprolol Tartrate (Lopressor) 5 mg Q6H PRN IV HR>130; Start 06/14/16 at 09:00 Amiodarone HCl (Cordarone) 400 mg BID NGT Last administered on 06/20/16 09:20 ; Admin Dose 400 MG; Start 06/14/16 at 21:00 Metoprolol Tartrate (Lopressor) 25 mg BID PO Last administered on 06/20/16 09: 27; Admin Dose 25 MG; Start 06/14/16 at 21:00 Acetaminophen (Tylenol Liquid) 650 mg Q4H PRN NGT PAIN AND OR ELEVATED TEMP Last administered on 06/20/16 07:03; Admin Dose 650 MG; Start 06/17/16 at 12:30 Lactulose (Enulose) 30 gm DAILY PO Last administered on 06/20/16 09:25; Admin Dose 30 GM; Start 06/20/16 at 09:00 ANGELES ODONNELL 12, 2017 13:09
--- NOTE | 2016-06-20 13:56 | RADRPT ---
PROCEDURE: CT Brain without contrast. CLINICAL INDICATION: Altered mental status. Encephalopathy. Lethargy. TECHNIQUE: A CT of the brain without contrast was performed utilizing axial sections from the skul l base through the vertex. The patient was scanned without intravenous contrast enhancement. [place] l and coronal reformatted images were obtained using the data from the axial images. Total exam DLP is 720.23 mGy-cm. CTDIvol is 42.69 mGy. One or more of the following dose reduction techniques were used: Automated exposure control, adjustment of the mA and/or kV according to patient size, use of iterative reconstruction technique. COMPARISON: None available. FINDINGS: There is normal cortés-white matter differentiation. There is enlargement of the ventricles and subarachnoid spaces consistent with atrophy. There is decreased attenuation of the periventricular white matter consistent with microangiopathic ischemic change. There is no intracranial hemorrhage or space-occupying lesion. There are vascular calcifications consistent with atherosclerosis. There is no skull fracture or lytic lesion. IMPRESSION: 1. Atrophy. 2. Microangiopathic ischemic change. 3. Atherosclerosis. 4. No intracranial hemorrhage. 5. Otherwise unremarkable noncontrast CT scan of the brain. RPTAT: QQ .Emmanuel Murillo MD, MD Date Time Electronically viewed and signed by .Emmanuel Murillo MD, MD on 06/20/2016 13:56 .R/
--- NOTE | 2016-06-20 21:33 | PN ---
Date/Time of Note Date/Time of Note DATE: 06/20/16 TIME: 21:29 Assessment/Plan VTE Prophylaxis VTE Prophylaxis Intervention: SCD's Lines/Catheters IV Catheter Type (from Nrs): PICC Line Central line still needed: Yes (IV access) Urinary Cath still in place: Yes Reason Cath still needed: other (indicate) (Strict I/O, ) Assessment/Plan Assessment/Plan 1. 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 Severe Anemia 2/2 #1-stable 3. Decompensated Alcoholic Liver Cirrhosis with Encephalopathy -Hep panel shows Hx of Exposure to Hep B but no active infection 4. Hypotension: 2/2 GI Bleed-resolved s/p Pressors 5. Low TSH 2/2 sick euthyroid 6. s/p VDRF now extubated PPx-SCDs Discussed with pt family at bedside- They do not want to discuss hospice care options at this time Patient failed swallow evaluation secondary to lethargy We will continue to be reassess pt decrease rate of TF to 50cc/hour pt extubated recently but he is very confused lethargic, he is at risk of re intubation, will keep pt in ICU for close monitoring Neurologist has been consulted for follow up and to give opinion about anoxic encephalopathy Total time spent in patient evaluation and plan is more than 50 minutes and more than 50% time spent in educating patient/family at bedside. Subjective 24 Hr Interval Summary Free Text/Dictation pt extubated but he is not waking up, ammonia level normal Exam/Review of Systems Vital Signs Vitals Vital Signs Date Time Temp Pulse Resp B/P Pulse Ox O2 Delivery O2 Flow Rate FiO2 06/20/16 20:57 99.0 06/20/16 20:00 81 19 109/62 90 Nasal Cannula 06/20/16 20:00 2.0 06/17/16 13:25 30 Intake and Output 06/19/16 06/19/16 06/20/16 15:00 23:00 07:00 Intake Total 540 ml 500 ml 550 ml Output Total 500 ml 280 ml 175 ml Balance 40 ml 220 ml 375 ml Exam Constitutional: letharic confused Psych: confusion Head: atraumatic, normocephalic Eyes: nl conjunctiva, nl lids ENMT: nl external ears & nose, nl lips & teeth, nl nasal mucosa & septum Neck: non-tender, supple Respiratory: clear to auscultation, normal air movement Cardiovascular: nl pulses, regular rate and rhythm Gastrointestinal: bowel sounds, non-tender, soft + nava catheter Results Result Diagram: 06/20/16 0630 06/20/16 0630 Results 24 hrs Laboratory Tests Test 06/20/16 06:30 Anion Gap 15 Basophils # 0.1 Basophils % 0.9 Blood Urea Nitrogen 34 H Calcium Level 7.7 L Carbon Dioxide Level 29 Chloride Level 108 Creatinine 0.91 Eosinophils # 0.3 Eosinophils % 3.6 Glucose Level 126 Hematocrit 29.1 L Hemoglobin 8.9 L Lymphocytes # 0.7 L Lymphocytes % 8.5 L Magnesium Level 2.0 Mean Corpuscular Hemoglobin 27.2 L Mean Corpuscular Hemoglobin Concent 30.6 L Mean Corpuscular Volume 89.0 Mean Platelet Volume 12.1 H Monocytes # 0.5 Monocytes % 5.6 Neutrophils # 6.5 Neutrophils % 81.0 H Nucleated Red Blood Cells # 0.0 Nucleated Red Blood Cells % 0.0 Platelet Count 129 L Potassium Level 4.2 Red Blood Count 3.27 L Red Cell Distribution Width 18.3 H Sodium Level 148 H White Blood Count 8.0 Medications Medications Current Medications Ondansetron HCl (Zofran Inj) 4 mg Q6H PRN IV NAUSEA AND/OR VOMITING; Start 06/09 at 04:30 Morphine Sulfate (morphine) 2 mg Q4H PRN IV PAIN LEVEL 7-10 Last administered on 06/19/16 18:13; Admin Dose 2 MG; Start 06/09/16 at 04:30 Lorazepam (Ativan) 1 mg Q2H PRN IV ANXIETY Last administered on 06/17/16 15:13 ; Admin Dose 1 MG; Start 06/09/16 at 04:30 Dutasteride (Avodart) 0.5 mg AM PO Last administered on 06/20/16 09:32; Admin Dose 0.5 MG; Start 06/09/16 at 09:00 Finasteride (Proscar) 5 mg AM PO Last administered on 06/20/16 09:27; Admin Dose 5 MG; Start 06/09/16 at 09:00 Levothyroxine Sodium 50 mcg 50 mcg DAILY@06 PO Last administered on 06/20/16 06:14; Admin Dose 50 MCG; Start 06/09/16 at 06:00 Norepinephrine/ Dextrose (Levophed/D5W) 500 ml @ 1.87 mls/hr TITRATE IV Last administered on 06/09/16 12:58; Admin Dose 1.87 MLS/HR; Start 06/09/16 at 10:00 IV Flush (NS 10 ml) 10 ml PRN PRN IV IV PROTOCOL; Start 06/09/16 at 17:00 Miscellaneous Information 1 ea NOTE XX ; Start 06/11/16 at 08:30 Rifaximin (Xifaxan) 550 mg BID PO Last administered on 06/20/16 20:57; Admin Dose 550 MG; Start 06/11/16 at 14:30 Pantoprazole (Protonix Iv) 40 mg BID@06,18 IV Last administered on 06/20/16 18 :38; Admin Dose 40 MG; Start 06/11/16 at 18:00 Furosemide (Lasix) 40 mg DAILY IV Last administered on 06/20/16 09:19; Admin Dose 40 MG; Start 06/12/16 at 13:00 Eye Lubricant (Artificial Tears Oph) 2 drop QID BOTH EYES Last administered on 06/20/16 20:57; Admin Dose 2 DROP; Start 06/12/16 at 13:00 Hydralazine HCl (Apresoline) 10 mg Q2H PRN IV SBP>170; Start 06/12/16 at 17:00 Metoprolol Tartrate (Lopressor) 5 mg Q6H PRN IV HR>130; Start 06/14/16 at 09:00 Metoprolol Tartrate (Lopressor) 25 mg BID PO Last administered on 06/20/16 20: 59; Admin Dose 25 MG; Start 06/14/16 at 21:00 Acetaminophen (Tylenol Liquid) 650 mg Q4H PRN NGT PAIN AND OR ELEVATED TEMP Last administered on 06/20/16 16:34; Admin Dose 650 MG; Start 06/17/16 at 12:30 Lactulose (Enulose) 30 gm DAILY PO Last administered on 06/20/16 09:25; Admin Dose 30 GM; Start 06/20/16 at 09:00 Amiodarone HCl (Cordarone) 400 mg DAILY NGT ; Start 06/21/16 at 09:00 MAURY BENITEZ MD Jun 20, 2016 21:33
[2016-06-20] MEDS: LORAZEPAM 2 MG INJ IV PRN (23:52)
[2016-06-21] VITALS (20 sets, daily range): BP systolic 95–122; BP diastolic 50–70; PULSE 73–93; RESP 18–27
[2016-06-21] MEDS: LORAZEPAM 2 MG INJ IV PRN (03:23)
--- NOTE | 2016-06-21 03:27 | CONS ---
DATE OF ADMISSION: 06/09/2016 DATE OF CONSULTATION: REFERRING PHYSICIAN: Dr. Amos Collins. Thank you for asking me to follow the patient. HISTORY OF PRESENT ILLNESS: The patient is a 71-year-old with multiple medical history in the form of end-stage renal disease, GI bleeding, portal hypertension for which the patient is unresponsive w ith lack of communication for which I got a call for more evaluation and treatment to follow up with the patient. MEDICATIONS: The patient is on current medications which include 1. Protonix 40 mg once a day. 2. Lasix 20 mg once a day. 3. Avodart 0.5 mg once a day. 4. Proscar 5 mg once a day. 5. Propofol titration as needed. 6. Synthroid 50 mcg once a day. 7. Zofran 4 mg every 6 hours as needed. 8. Albuterol inhaler. 9. Ativan 1 mg every 8 hours as needed. 10. Morphine sulfate 2 mg as needed. PHYSICAL EXAMINATION: GENERAL: On exam today, the patient is alert, awake, does not follow any commands, looks confused, accompanied by his daughter in the room. CRANIAL NERVES: Cranial nerve II: Pupils equal on both sides, reactive to light. Cranial nerves I II, IV, and : Extraocular muscles intact. Cranial nerve V: Equal sensation to face. Cranial ne rve VII: Decreased hearing bilaterally. Cranial nerves IX through XII: Could not assess. MOTOR EXAM: Slight movement for painful stimuli. Sensation decreased for glove and sock area for l ight touch and temperature. COORDINATION AND GAIT: Could not assess. HEART: Regular rate and rhythm. LUNGS: Equal breath sounds. ABDOMEN: Soft, relaxed, nondistended. No tenderness. ASSESSMENT AND PLAN 1. The patient is 71-year-old with underlying acute encephalopathy. 2. Status post toxic metabolic encephalopathy might be associated with anoxic encephalopathy second estefania to gastrointestinal bleeding and liver cell failure. 3. History of end-stage renal disease with gastrointestinal bleeding, portal hypertension. 4. The patient with decreased responsiveness. I am going to reorder for him electroencephalogram for more evaluation and treatment. Again, thank you for asking me to see the patient with you. Dictated By: THEODORE ROBERTO/RICK Conf#: [id number] DID#: [id number]
[2016-06-21 04:54] LABS: ALBUMIN 2.6 g/dl (3.3-4.9); POTASSIUM 3.9 mmol/L (3.5-5.1)
[2016-06-21 04:56] LABS: CREATININE 0.97 mg/dl (0.61-1.24)
[2016-06-21 04:57] LABS: ALBUMIN/GLOBULIN RATIO 0.74; BILIRUBIN,INDIRECT 0.3 mg/dl (0-1.1); BILIRUBIN,TOTAL 0.3 mg/dl (0.2-1.3); CALCIUM 7.5 mg/dl (8.4-10.2); TOTAL PROTEIN 6.1 g/dl (6.1-8.1)
[2016-06-21] MEDS: PANTOPRAZOLE 40 MG INJ IV SCH ×2 (05:07→17:52)
[2016-06-21] MEDS: LEVOTHYROXINE 50 MCG TAB PO SCH (05:08)
[2016-06-21 05:10] LABS: AADO2 Arterial 97.6 mmHg (7.0-24.0); Allen Test ACCEPTAB; Arterial Base Excess 2.8 mmol/L (-3.0-3); Arterial COHb 0.1 % (0.0-3.0); Arterial Fraction of Oxyhgb 91.8 % (93.0-99.0); Arterial HCO3 25.7 mmol/L (22.0-26.0); Arterial MetHb 0.3 % (0.0-1.5); Arterial Total Hemglobin 11.8 g/dl (12.0-18.0); MODE NASAL CANNULA
[2016-06-21 06:31] LABS: INR 1.38; PT RATIO 1.3
[2016-06-21 06:32] LABS: PARTIAL THROMBOPLASTIN TIME 31.4 Sec (25.0-35.0)
[2016-06-21] MEDS: DUTASTERIDE 0.5 MG CAP PO SCH (08:44)
[2016-06-21] MEDS: LACTULOSE 30ML CUP PO SCH (08:44)
[2016-06-21] MEDS: AMIODARONE 200 MG TAB NGT SCH (08:44)
[2016-06-21] MEDS: ACETAMINOPHEN 650MG/20.3ML CUP NGT PRN (08:44)
[2016-06-21] MEDS: FUROSEMIDE 40 MG INJ IV SCH (08:44)
[2016-06-21] MEDS: FINASTERIDE 5 MG TAB PO SCH (08:45)
[2016-06-21] MEDS: METOPROLOL 25 MG TAB PO SCH ×2 (08:45→21:41)
[2016-06-21] MEDS: RIFAXIMIN 550 MG TAB PO SCH ×2 (08:45→21:41)
[2016-06-21] MEDS: ARTIFICIAL TEARS 15 ML OPH BOTH EYES SCH ×4 (08:45→21:41)
--- NOTE | 2016-06-21 09:11 | PN ---
Date/Time of Note Date/Time of Note DATE: 06/21/16 TIME: 09:06 Assessment/Plan VTE Prophylaxis VTE Prophylaxis Intervention: SCD's Lines/Catheters IV Catheter Type (from Nrs): PICC Line Central line still needed: Yes (iv ACCESS ) Urinary Cath still in place: Yes Reason Cath still needed: other (indicate) (STRICT I/O) Assessment/Plan Assessment/Plan 1. 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 Severe Anemia 2/2 #1-stable 3. Decompensated Alcoholic Liver Cirrhosis with Encephalopathy -Hep panel shows Hx of Exposure to Hep B but no active infection 4. Hypotension: 2/2 GI Bleed-resolved s/p Pressors 5. Low TSH 2/2 sick euthyroid 6. s/p VDRF now extubated PPx-SCDs Discussed with pt family at bedside- They do not want to discuss hospice care options at this time Patient failed swallow evaluation secondary to lethargy Pt is still not waking up, Neurology asked to follow up to rule out anoxic encephalopathy, EEG has been ordered decreased rate of TF to 50cc/hour Total time spent in patient evaluation and plan is more than 50 minutes and more than 50% time spent in educating patient/family at bedside. Subjective 24 Hr Interval Summary Free Text/Dictation pt still not waking up, nods his head with verbal stimuli but confused, lethargic , neurology consulted to rule out anoxic encephalopathy Exam/Review of Systems Vital Signs Vitals Vital Signs Date Time Temp Pulse Resp B/P Pulse Ox O2 Delivery O2 Flow Rate FiO2 06/21/16 09:00 88 25 122/70 97 Nasal Cannula 2.0 06/21/16 08:00 100.0 06/17/16 13:25 30 Intake and Output 06/20/16 06/20/16 06/21/16 15:00 23:00 07:00 Intake Total 500 ml 250 ml Output Total 350 ml 280 ml 550 ml Balance 150 ml -30 ml -550 ml Exam Constitutional: letharic confused Psych: confusion Head: atraumatic, normocephalic Eyes: nl conjunctiva, nl lids ENMT: nl external ears & nose, nl lips & teeth, nl nasal mucosa & septum Neck: non-tender, supple Respiratory: clear to auscultation, normal air movement Cardiovascular: nl pulses, regular rate and rhythm Gastrointestinal: bowel sounds, non-tender, soft + nava catheter Results Result Diagram: 06/20/16 0630 06/21/16 0330 Results 24 hrs Laboratory Tests Test 06/21/16 03:30 06/21/16 05:00 06/21/16 06:10 Alanine Aminotransferase (ALT/SGPT) 35 Albumin 2.6 L Albumin/Globulin Ratio 0.74 Alkaline Phosphatase 140 H Anion Gap 16 Aspartate Amino Transf (AST/SGOT) 34 Blood Urea Nitrogen 40 H Calcium Level 7.5 L Carbon Dioxide Level 29 Chloride Level 108 Creatinine 0.97 Direct Bilirubin 0.00 Globulin 3.50 H Glucose Level 108 Indirect Bilirubin 0.3 Magnesium Level 2.0 Potassium Level 3.9 Sodium Level 149 H Total Bilirubin 0.3 Total Protein 6.1 Arterial Blood HCO3 25.7 Arterial Blood Base Excess 2.8 Arterial Blood Oxygen Saturation 92.2 L Adelso Test ACCEPTAB Arterial Blood Gas Puncture Site Right Radial Arterial Blood Carboxyhemoglobin 0.1 Arterial Blood Date Drawn 06/21/2016 5:00:23 AM Arterial Blood Methemoglobin 0.3 Arterial Blood pCO2 (Temp correct) 33.8 L Arterial Blood pH (Temp corrected) 7.499 H Arterial Blood pO2 (Temp corrected) 62.2 L Blood Gas A-a O2 Differential 97.6 H Blood Gas Modality NASAL CANNULA Blood Gas Notified Time 06/21/2016 5:10:06 AM Blood Gas Notified Whom MA Blood Gas Specimen Source Blood arterial Blood Gas Temperature 37.0 FiO2 28.0 Oxyhemoglobin Percent 91.8 L Total Hemoglobin 11.8 L Activated Partial Thromboplast Time 31.4 INR International Normalized Ratio 1.38 Prothrombin Time 17.0 H Prothrombin Time Ratio 1.3 Medications Medications Current Medications Ondansetron HCl (Zofran Inj) 4 mg Q6H PRN IV NAUSEA AND/OR VOMITING; Start 06/09 at 04:30 Morphine Sulfate (morphine) 2 mg Q4H PRN IV PAIN LEVEL 7-10 Last administered on 06/19/16 18:13; Admin Dose 2 MG; Start 06/09/16 at 04:30 Lorazepam (Ativan) 1 mg Q2H PRN IV ANXIETY Last administered on 06/21/16 03:23 ; Admin Dose 1 MG; Start 06/09/16 at 04:30 Dutasteride (Avodart) 0.5 mg AM PO Last administered on 06/21/16 08:44; Admin Dose 0.5 MG; Start 06/09/16 at 09:00 Finasteride (Proscar) 5 mg AM PO Last administered on 06/21/16 08:45; Admin Dose 5 MG; Start 06/09/16 at 09:00 Levothyroxine Sodium 50 mcg 50 mcg DAILY@06 PO Last administered on 06/21/16 05:08; Admin Dose 50 MCG; Start 06/09/16 at 06:00 Norepinephrine/ Dextrose (Levophed/D5W) 500 ml @ 1.87 mls/hr TITRATE IV Last administered on 06/09/16 12:58; Admin Dose 1.87 MLS/HR; Start 06/09/16 at 10:00 IV Flush (NS 10 ml) 10 ml PRN PRN IV IV PROTOCOL; Start 06/09/16 at 17:00 Miscellaneous Information 1 ea NOTE XX ; Start 06/11/16 at 08:30 Rifaximin (Xifaxan) 550 mg BID PO Last administered on 06/21/16 08:45; Admin Dose 550 MG; Start 06/11/16 at 14:30 Pantoprazole (Protonix Iv) 40 mg BID@06,18 IV Last administered on 06/21/16 05 :07; Admin Dose 40 MG; Start 06/11/16 at 18:00 Furosemide (Lasix) 40 mg DAILY IV Last administered on 06/21/16 08:44; Admin Dose 40 MG; Start 06/12/16 at 13:00 Eye Lubricant (Artificial Tears Oph) 2 drop QID BOTH EYES Last administered on 06/21/16 08:45; Admin Dose 2 DROP; Start 06/12/16 at 13:00 Hydralazine HCl (Apresoline) 10 mg Q2H PRN IV SBP>170; Start 06/12/16 at 17:00 Metoprolol Tartrate (Lopressor) 5 mg Q6H PRN IV HR>130; Start 06/14/16 at 09:00 Metoprolol Tartrate (Lopressor) 25 mg BID PO Last administered on 06/21/16 08: 45; Admin Dose 25 MG; Start 06/14/16 at 21:00 Acetaminophen (Tylenol Liquid) 650 mg Q4H PRN NGT PAIN AND OR ELEVATED TEMP Last administered on 06/21/16 08:44; Admin Dose 650 MG; Start 06/17/16 at 12:30 Lactulose (Enulose) 30 gm DAILY PO Last administered on 06/21/16 08:44; Admin Dose 30 GM; Start 06/20/16 at 09:00 Amiodarone HCl (Cordarone) 400 mg DAILY NGT Last administered on 06/21/16 08: 44; Admin Dose 400 MG; Start 06/21/16 at 09:00 MAURY BENITEZ MD Jun 21, 2016 09:11
--- NOTE | 2016-06-21 10:31 | CONS ---
Date/Time of Note Date/Time of Note DATE: 06/21/16 TIME: 10:27 Assessment/Plan Assessment/Plan Additional Assessment/Plan Assessment recommendations; 1. Patient admitted for acute GI bleed status post EGD with banding of varices with stable hematocrit. Status post blood transfusion at time of admission without any further need of transfusions. 2. Alcoholic cirrhosis. 3. Status post respiratory failure. 4. Some element of hepatic encephalopathy. 5. History of hypothyroidism. 6. History of hypertension and diabetes. Continue current treatment. Keep the patient in ICU for monitoring. Consultation Date/Type/Reason Admit Date/Time Jun 09, 2016 at 04:01 Initial Consult Date 06/09/16 Type of Consultation: Pulmonary/critical care Referring Provider: MAURY BENITEZ MD 24 HR Interval Summary Free Text/Dictation Patient condition is tenuous at best. Patient was exhibiting excellent mental status yesterday however this morning the patient is slightly more lethargic. ABG was done earlier this morning which is not indicating any evidence of CO2 retention or evidence of respiratory failure. Patient however is readily arousable. He denies any shortness of breath, chest pain, abdominal pain. Abdomen exam; elderly male, currently in no distress. Somewhat somnolent. Exam/Review of Systems Vital Signs Vitals Vital Signs Date Time Temp Pulse Resp B/P Pulse Ox O2 Delivery O2 Flow Rate FiO2 06/21/16 10:00 76 25 107/57 97 Nasal Cannula 2.0 06/21/16 08:00 100.0 06/17/16 13:25 30 Intake and Output 06/20/16 06/20/16 06/21/16 15:00 23:00 07:00 Intake Total 500 ml 250 ml 50 ml Output Total 350 ml 280 ml 625 ml Balance 150 ml -30 ml -575 ml Exam HEENT exam; supple neck, no JVD. No lymphadenopathy. Midline trachea. No thyromegaly. Pharynx is clear. Patient has good dentition. Pupils are midsize and reactive to light. Chest examination; clear to auscultate bilaterally. S1-S2 audible, no murmurs. Regular rhythm. Abdomen examination; soft, nondistended. No organomegaly. Bowel sounds audible. Extremity exam is; no peripheral edema. Pulses 2+ bilaterally. 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 Results Result Diagram: 06/20/16 0630 06/21/16 0330 Results 24 hrs Laboratory Tests Test 06/21/16 03:30 06/21/16 05:00 06/21/16 06:10 Alanine Aminotransferase (ALT/SGPT) 35 Albumin 2.6 L Albumin/Globulin Ratio 0.74 Alkaline Phosphatase 140 H Anion Gap 16 Aspartate Amino Transf (AST/SGOT) 34 Blood Urea Nitrogen 40 H Calcium Level 7.5 L Carbon Dioxide Level 29 Chloride Level 108 Creatinine 0.97 Direct Bilirubin 0.00 Globulin 3.50 H Glucose Level 108 Indirect Bilirubin 0.3 Magnesium Level 2.0 Potassium Level 3.9 Sodium Level 149 H Total Bilirubin 0.3 Total Protein 6.1 Arterial Blood HCO3 25.7 Arterial Blood Base Excess 2.8 Arterial Blood Oxygen Saturation 92.2 L Adelso Test ACCEPTAB Arterial Blood Gas Puncture Site Right Radial Arterial Blood Carboxyhemoglobin 0.1 Arterial Blood Date Drawn 06/21/2016 5:00:23 AM Arterial Blood Methemoglobin 0.3 Arterial Blood pCO2 (Temp correct) 33.8 L Arterial Blood pH (Temp corrected) 7.499 H Arterial Blood pO2 (Temp corrected) 62.2 L Blood Gas A-a O2 Differential 97.6 H Blood Gas Modality NASAL CANNULA Blood Gas Notified Time 06/21/2016 5:10:06 AM Blood Gas Notified Whom MA Blood Gas Specimen Source Blood arterial Blood Gas Temperature 37.0 FiO2 28.0 Oxyhemoglobin Percent 91.8 L Total Hemoglobin 11.8 L Activated Partial Thromboplast Time 31.4 INR International Normalized Ratio 1.38 Prothrombin Time 17.0 H Prothrombin Time Ratio 1.3 Medications Medications Current Medications Ondansetron HCl (Zofran Inj) 4 mg Q6H PRN IV NAUSEA AND/OR VOMITING; Start 06/09 at 04:30 Morphine Sulfate (morphine) 2 mg Q4H PRN IV PAIN LEVEL 7-10 Last administered on 06/19/16 18:13; Admin Dose 2 MG; Start 06/09/16 at 04:30 Lorazepam (Ativan) 1 mg Q2H PRN IV ANXIETY Last administered on 06/21/16 03:23 ; Admin Dose 1 MG; Start 06/09/16 at 04:30 Dutasteride (Avodart) 0.5 mg AM PO Last administered on 06/21/16 08:44; Admin Dose 0.5 MG; Start 06/09/16 at 09:00 Finasteride (Proscar) 5 mg AM PO Last administered on 06/21/16 08:45; Admin Dose 5 MG; Start 06/09/16 at 09:00 Levothyroxine Sodium (Synthroid) 50 mcg DAILY@06 PO Last administered on 05:08; Admin Dose 50 MCG; Start 06/09/16 at 06:00 IV Flush (NS 10 ml) 10 ml PRN PRN IV IV PROTOCOL; Start 06/09/16 at 17:00 Miscellaneous Information 1 ea NOTE XX ; Start 06/11/16 at 08:30 Rifaximin (Xifaxan) 550 mg BID PO Last administered on 06/21/16 08:45; Admin Dose 550 MG; Start 06/11/16 at 14:30 Pantoprazole (Protonix Iv) 40 mg BID@,18 IV Last administered on 06/21/16 05 :07; Admin Dose 40 MG; Start 06/11/16 at 18:00 Furosemide (Lasix) 40 mg DAILY IV Last administered on 06/21/16 08:44; Admin Dose 40 MG; Start 06/12/16 at 13:00 Eye Lubricant (Artificial Tears Oph) 2 drop QID BOTH EYES Last administered on 06/21/16 08:45; Admin Dose 2 DROP; Start 06/12/16 at 13:00 Hydralazine HCl (Apresoline) 10 mg Q2H PRN IV SBP>170; Start 06/12/16 at 17:00 Metoprolol Tartrate (Lopressor) 5 mg Q6H PRN IV HR>130; Start 06/14/16 at 09:00 Metoprolol Tartrate (Lopressor) 25 mg BID PO Last administered on 06/21/16 08: 45; Admin Dose 25 MG; Start 06/14/16 at 21:00 Acetaminophen (Tylenol Liquid) 650 mg Q4H PRN NGT PAIN AND OR ELEVATED TEMP Last administered on 06/21/16 08:44; Admin Dose 650 MG; Start 06/17/16 at 12:30 Lactulose (Enulose) 30 gm DAILY PO Last administered on 06/21/16 08:44; Admin Dose 30 GM; Start 06/20/16 at 09:00 Amiodarone HCl (Cordarone) 400 mg DAILY NGT Last administered on 06/21/16t 08: 44; Admin Dose 400 MG; Start 06/21/16 at 09:00 LEE ANN LEROY Jun 21, 2016 10:30
--- NOTE | 2016-06-21 11:58 | RADRPT ---
PROCEDURE: XR Chest. CLINICAL INDICATION: Shortness of breath. TECHNIQUE: Chest x-ray, single view. COMPARISON: 06/18/2016. FINDINGS: The cardiac silhouette is magnified yet appears enlarged. Aortic arch atherosclerotic calcification is present. A left upper extremity PICC terminates at the SVC/right atrial junction. Low lung vol umes are observed. Mild right basilar atelectatic changes are slightly increased. Left basilar ate lectatic changes are present and unchanged. An enteric tube terminates within the stomach. Degener ative changes of the spine are present. IMPRESSION: Hypoinflation with bibasilar atelectasis. Cardiomegaly and atherosclerosis. RPTAT: HLST .Madiha Saldivar MD, MD Date Time Electronically viewed and signed by .Madiha Saldivar MD, on 06/21/2016 11:57 .T/
--- NOTE | 2016-06-21 16:49 | CONS ---
Date/Time of Note Date/Time of Note DATE: 06/21/16 TIME: 16:48 Assessment/Plan Assessment/Plan Chief Complaint/Hosp Course IMPRESSION: 1. Paroxysmal atrial fibrillation/atrial flutter, now back in sinus rhythm and remains thus 2. Abnormal electrocardiogram. Assess for acute coronary syndrome. 3. Hypotension, now improved. 4. Gastrointestinal bleed. 5. Cirrhosis. 6. Encephalopathy. 7. Anemia, severe, status post transfusions. 8. Hypernatremia. 9. Coagulopathy 10.Fever Recc: -Tele -Continue amiodarone PO but will decrease dose -Continue BB as tolerated -No asa/systemic anti-coag secondary to anemia/GIB -Continue abx's and f/u cx data -Follow MS closely -Follow Hgb closely -Continue gentle lasix diuresis and continue to follow volume status closely -Free water for elevated na -F/U cx data and consider initiation of abx's Problems: Consultation Date/Type/Reason Admit Date/Time Jun 09, 2016 at 04:01 Initial Consult Date 06/09/16 Type of Consultation: Cardiology Reason for Consultation PAFL Referring Provider: MAURY BENITEZ MD Exam/Review of Systems Vital Signs Vitals Vital Signs Date Time Temp Pulse Resp B/P Pulse Ox O2 Delivery O2 Flow Rate FiO2 06/21/16 16:38 74 06/21/16 16:13 99.7 18 103/52 96 06/21/16 13:25 Nasal Cannula 4.0 06/17/16 13:25 30 Intake and Output 06/20/16 06/20/16 06/21/16 15:00 23:00 07:00 Intake Total 500 ml 250 ml 50 ml Output Total 350 ml 280 ml 625 ml Balance 150 ml -30 ml -575 ml Exam Review of Systems: CONSTITUTIONAL: No fevers, chills. PULMONARY: No sob CARDIOVASCULAR: No chest pain/palpitations GASTROINTESTINAL: No nausea/vomiting. GENITOURINARY: No hematuria/dysuria. MUSCULOSKELETAL: No myagias/arthalgias. PSYCHIATRIC: The patient denies depression. NEUROLOGIC: No weakness Constitutional: alert, oriented Psych: no complaints Head: normocephalic ENMT: mucosa pink and moist Neck: jvd (9 cm water), supple Respiratory: diminished breath sounds (at bases/B) Cardiovascular: regular rate and rhythm Gastrointestinal: non-tender, soft Musculoskeletal: muscle tone (normal) Extremities: edema (none) Neurological: other (No focal deficits) Results Result Diagram: 06/20/16 0630 06/21/16 0330 Results 24 hrs Laboratory Tests Test 06/21/16 03:30 06/21/16 05:00 06/21/16 06:10 Alanine Aminotransferase (ALT/SGPT) 35 Albumin 2.6 L Albumin/Globulin Ratio 0.74 Alkaline Phosphatase 140 H Anion Gap 16 Aspartate Amino Transf (AST/SGOT) 34 Blood Urea Nitrogen 40 H Calcium Level 7.5 L Carbon Dioxide Level 29 Chloride Level 108 Creatinine 0.97 Direct Bilirubin 0.00 Globulin 3.50 H Glucose Level 108 Indirect Bilirubin 0.3 Magnesium Level 2.0 Potassium Level 3.9 Sodium Level 149 H Total Bilirubin 0.3 Total Protein 6.1 Arterial Blood HCO3 25.7 Arterial Blood Base Excess 2.8 Arterial Blood Oxygen Saturation 92.2 L Adelso Test ACCEPTAB Arterial Blood Gas Puncture Site Right Radial Arterial Blood Carboxyhemoglobin 0.1 Arterial Blood Date Drawn 06/21/2016 5:00:23 AM Arterial Blood Methemoglobin 0.3 Arterial Blood pCO2 (Temp correct) 33.8 L Arterial Blood pH (Temp corrected) 7.499 H Arterial Blood pO2 (Temp corrected) 62.2 L Blood Gas A-a O2 Differential 97.6 H Blood Gas Modality NASAL CANNULA Blood Gas Notified Time 06/21/2016 5:10:06 AM Blood Gas Notified Whom MA Blood Gas Specimen Source Blood arterial Blood Gas Temperature 37.0 FiO2 28.0 Oxyhemoglobin Percent 91.8 L Total Hemoglobin 11.8 L Activated Partial Thromboplast Time 31.4 INR International Normalized Ratio 1.38 Prothrombin Time 17.0 H Prothrombin Time Ratio 1.3 Medications Medications Current Medications Ondansetron HCl (Zofran Inj) 4 mg Q6H PRN IV NAUSEA AND/OR VOMITING; Start 06/09 at 04:30 Morphine Sulfate (morphine) 2 mg Q4H PRN IV PAIN LEVEL 7-10 Last administered on 06/19/16 18:13; Admin Dose 2 MG; Start 06/09/16 at 04:30 Lorazepam (Ativan) 1 mg Q2H PRN IV ANXIETY Last administered on 06/21/16 03:23 ; Admin Dose 1 MG; Start 06/09/16 at 04:30 Dutasteride (Avodart) 0.5 mg AM PO Last administered on 06/21/16 08:44; Admin Dose 0.5 MG; Start 06/09/16 at 09:00 Finasteride (Proscar) 5 mg AM PO Last administered on 06/21/16 08:45; Admin Dose 5 MG; Start 06/09/16 at 09:00 Levothyroxine Sodium (Synthroid) 50 mcg DAILY@06 PO Last administered on 05:08; Admin Dose 50 MCG; Start 06/09/16 at 06:00 IV Flush (NS 10 ml) 10 ml PRN PRN IV IV PROTOCOL; Start 06/09/16 at 17:00 Miscellaneous Information 1 ea NOTE XX ; Start 06/11/16 at 08:30 Rifaximin (Xifaxan) 550 mg BID PO Last administered on 06/21/16 08:45; Admin Dose 550 MG; Start 06/11/16 at 14:30 Pantoprazole (Protonix Iv) 40 mg BID@06,18 IV Last administered on 06/21/16 05 :07; Admin Dose 40 MG; Start 06/11/16 at 18:00 Furosemide (Lasix) 40 mg DAILY IV Last administered on 06/21/16 08:44; Admin Dose 40 MG; Start 06/12/16 at 13:00 Eye Lubricant (Artificial Tears Oph) 2 drop QID BOTH EYES Last administered on 06/21/16 13:59; Admin Dose 2 DROP; Start 06/12/16 at 13:00 Hydralazine HCl (Apresoline) 10 mg Q2H PRN IV SBP>170; Start 06/12/16 at 17:00 Metoprolol Tartrate (Lopressor) 5 mg Q6H PRN IV HR>130; Start 06/14/16 at 09:00 Metoprolol Tartrate (Lopressor) 25 mg BID PO Last administered on 06/21/16 08: 45; Admin Dose 25 MG; Start 06/14/16 at 21:00 Acetaminophen (Tylenol Liquid) 650 mg Q4H PRN NGT PAIN AND OR ELEVATED TEMP Last administered on 06/21/16 08:44; Admin Dose 650 MG; Start 06/17/16 at 12:30 Lactulose (Enulose) 30 gm DAILY PO Last administered on 06/21/16 08:44; Admin Dose 30 GM; Start 06/20/16 at 09:00 Amiodarone HCl (Cordarone) 400 mg DAILY NGT Last administered on 06/21/16 08: 44; Admin Dose 400 MG; Start 06/21/16 at 09:00 ANGELES ODONNELL 13, 2017 16:49
[2016-06-21] MEDS: ALBUTEROL 0.083% (NEB) 2.5 MG/3 ML AMP NEB PRN (23:35)
[2016-06-22] VITALS (12 sets, daily range): BP systolic 105–125; BP diastolic 57–69; PULSE 84–90; RESP 16–19
[2016-06-22] MEDS: morphine 2 MG INJ IV PRN ×2 (00:48→22:31)
[2016-06-22] MEDS: ACETAMINOPHEN 650MG/20.3ML CUP NGT PRN (01:16)
[2016-06-22 05:13] LABS: AADO2 Arterial 172.7 mmHg (7.0-24.0); Allen Test ACCEPTAB; Arterial Base Excess 1.6 mmol/L (-3.0-3); Arterial COHb 0.3 % (0.0-3.0); Arterial Fraction of Oxyhgb 93.6 % (93.0-99.0); Arterial HCO3 24.4 mmol/L (22.0-26.0); Arterial MetHb 0.4 % (0.0-1.5); Arterial Total Hemglobin 8.5 g/dl (12.0-18.0); MODE NASAL CANNULA
[2016-06-22] MEDS: LEVOTHYROXINE 50 MCG TAB PO SCH (06:09)
[2016-06-22] MEDS: PANTOPRAZOLE 40 MG INJ IV SCH ×2 (06:09→17:12)
[2016-06-22] MEDS: FUROSEMIDE 40 MG INJ IV SCH (08:30)
[2016-06-22] MEDS: METOPROLOL 25 MG TAB PO SCH ×2 (08:30→21:00)
[2016-06-22] MEDS: DUTASTERIDE 0.5 MG CAP PO SCH (08:30)
[2016-06-22] MEDS: FINASTERIDE 5 MG TAB PO SCH (08:30)
[2016-06-22] MEDS: LACTULOSE 30ML CUP PO SCH (08:30)
[2016-06-22] MEDS: RIFAXIMIN 550 MG TAB PO SCH ×2 (08:30→21:51)
[2016-06-22] MEDS: AMIODARONE 200 MG TAB NGT SCH (08:30)
[2016-06-22] MEDS: ARTIFICIAL TEARS 15 ML OPH BOTH EYES SCH ×4 (08:44→21:52)
[2016-06-22 10:04] LABS: ADD SCAN DIFF NO
[2016-06-22 10:18] LABS: INR 1.26; PROTIME 15.9 Sec (12.2-14.2); PT RATIO 1.2
[2016-06-22 10:19] LABS: PARTIAL THROMBOPLASTIN TIME 35.4 Sec (25.0-35.0)
[2016-06-22 10:27] LABS: CREATININE 0.94 mg/dl (0.61-1.24)
[2016-06-22 10:28] LABS: BASOPHIL # 0.1 10^3/ul (0.0-0.1); BASOPHILS % 1.1 % (0.0-2.0); EOSINOPHILS # 0.5 10^3/ul (0.0-0.5); EOSINOPHILS % 7.5 % (0.0-7.0); HEMATOCRIT 29.5 % (42.0-52.0); HEMOGLOBIN 8.9 g/dl (14.0-18.0); LYMPHOCYTES # 0.8 10^3/ul (0.8-2.9); LYMPHOCYTES % 13.5 % (15.0-51.0); MEAN CORPUSCULAR HEMOGLOBIN 26.7 pg (29.0-33.0); MEAN CORPUSCULAR HGB CONC 30.2 g/dl (32.0-37.0); MEAN CORPUSCULAR VOLUME 88.6 fl (82.0-101.0); MONOCYTE # 0.6 10^3/ul (0.3-0.9); MONOCYTES % 9.8 % (0.0-11.0); NEUTROPHIL # 4.1 10^3/ul (1.6-7.5); NEUTROPHILS % 67.6 % (39.0-77.0); PLATELET COUNT 167 10^3/UL (140-415); POTASSIUM 3.8 mmol/L (3.5-5.1); RED BLOOD COUNT 3.33 10^6/ul (4.70-6.10); RED CELL DISTRIBUTION WIDTH 18.3 % (11.5-14.5); WHITE BLOOD COUNT 6.1 10^3/ul (4.8-10.8)
--- NOTE | 2016-06-22 11:26 | CONS ---
Date/Time of Note Date/Time of Note DATE: 06/22/16 TIME: 11:23 Assessment/Plan Assessment/Plan Additional Assessment/Plan 1. Paroxysmal atrial fibrillation/atrial flutter, now back in sinus rhythm and remains thus - IN SINUS NOW 2. Abnormal electrocardiogram. Assess for acute coronary syndrome- no intervention planned 3. Hypotension, now improved- better overall 4. Gastrointestinal bleed- now NG tube - GI follows 5. Cirrhosis. 6. Encephalopathy-follows with eys 7. Anemia, severe, status post transfusions. 8. Hypernatremia. 9. Coagulopathy 10.Fever Consultation Date/Type/Reason Admit Date/Time Jun 09, 2016 at 04:01 Initial Consult Date 06/09/16 Type of Consultation: Cardiology Referring Provider: MAURY BENITEZ MD 24 HR Interval Summary Free Text/Dictation NO acute change - in sinus now - con't med rx. family at bedside - aware of care ROS: No fever, no chills, no nausea, no vomiting, no diarrhea/constipation No recent weight changes No chest pain, no PND, no orthopnea No dizziness, blurred vision No thirst, no heat or cold intolerance (per nurse) Exam/Review of Systems Vital Signs Vitals Vital Signs Date Time Temp Pulse Resp B/P Pulse Ox O2 Delivery O2 Flow Rate FiO2 06/22/16 09:47 89 06/22/16 08:00 Nasal Cannula 4.0 06/22/16 07:55 99.8 19 106/61 94 Intake and Output 06/21/16 06/21/16 06/22/16 15:00 23:00 07:00 Intake Total 400 ml 350 ml Output Total 495 ml 520 ml Balance -95 ml -170 ml Exam General: WN/WD/NAD, AOx 0 enceph, eyes open HEENT: Unicetric/atraumatic/EOMI (does not follow commands) NECK: JVD elevated, no thyromegaly,NGT Lymph: no lymphadenopathy HEART: regular with no S3, II/ systolic murmur at apex LUNGS: Coarse sounds ABD: soft, NT, ND, +BS DISTENDED : Intact Neuro: non focal SKIN: chronic changes EXT: trace edema Results Result Diagram: 06/22/1645 06/22/16 0945 Results 24 hrs Laboratory Tests Test 06/22/16 05:00 06/22/16 09:45 Arterial Blood HCO3 24.4 Arterial Blood Base Excess 1.6 Arterial Blood Oxygen Saturation 94.3 L Adelso Test ACCEPTAB Arterial Blood Gas Puncture Site Left Radial Arterial Blood Carboxyhemoglobin 0.3 Arterial Blood Date Drawn 06/22/2016 5:00:07 AM Arterial Blood Methemoglobin 0.4 Arterial Blood pCO2 (Temp correct) 31.3 L Arterial Blood pH (Temp corrected) 7.510 H Arterial Blood pO2 (Temp corrected) 69.3 L Blood Gas A-a O2 Differential 172.7 H Blood Gas Modality NASAL CANNULA Blood Gas Notified Time 06/22/2016 5:13:44 AM Blood Gas Notified Whom MM Blood Gas Specimen Source Blood arterial Blood Gas Temperature 37.0 FiO2 39.0 Oxyhemoglobin Percent 93.6 Total Hemoglobin 8.5 L Activated Partial Thromboplast Time 35.4 H Anion Gap 16 Basophils # 0.1 Basophils % 1.1 Blood Urea Nitrogen 38 H Calcium Level 8.0 L Carbon Dioxide Level 30 Chloride Level 110 Creatinine 0.94 Eosinophils # 0.5 Eosinophils % 7.5 H Glucose Level 113 Hematocrit 29.5 L Hemoglobin 8.9 L INR International Normalized Ratio 1.26 Lymphocytes # 0.8 Lymphocytes % 13.5 L Mean Corpuscular Hemoglobin 26.7 L Mean Corpuscular Hemoglobin Concent 30.2 L Mean Corpuscular Volume 88.6 Mean Platelet Volume 12.0 H Monocytes # 0.6 Monocytes % 9.8 Neutrophils # 4.1 Neutrophils % 67.6 Nucleated Red Blood Cells # 0.0 Nucleated Red Blood Cells % 0.0 Platelet Count 167 # Potassium Level 3.8 Prothrombin Time 15.9 H Prothrombin Time Ratio 1.2 Red Blood Count 3.33 L Red Cell Distribution Width 18.3 H Sodium Level 152 H White Blood Count 6.1 # Medications Medications Current Medications Ondansetron HCl (Zofran Inj) 4 mg Q6H PRN IV NAUSEA AND/OR VOMITING; Start 06/09 at 04:30 Morphine Sulfate (morphine) 2 mg Q4H PRN IV PAIN LEVEL 7-10 Last administered on 06/22/16 00:48; Admin Dose 2 MG; Start 06/09/16 at 04:30 Lorazepam (Ativan) 1 mg Q2H PRN IV ANXIETY Last administered on 06/21/16 03:23 ; Admin Dose 1 MG; Start 06/09/16 at 04:30 Dutasteride (Avodart) 0.5 mg AM PO Last administered on 06/22/16 08:30; Admin Dose 0.5 MG; Start 06/09/16 at 09:00 Finasteride (Proscar) 5 mg AM PO Last administered on 06/22/16 08:30; Admin Dose 5 MG; Start 06/09/16 at 09:00 Levothyroxine Sodium (Synthroid) 50 mcg DAILY@06 PO Last administered on 06:09; Admin Dose 50 MCG; Start 06/09/16 at 06:00 IV Flush (NS 10 ml) 10 ml PRN PRN IV IV PROTOCOL; Start 06/09/16 at 17:00 Miscellaneous Information 1 ea NOTE XX ; Start 06/11/16 at 08:30 Rifaximin (Xifaxan) 550 mg BID PO Last administered on 06/22/16 08:30; Admin Dose 550 MG; Start 06/11/16 at 14:30 Pantoprazole (Protonix Iv) 40 mg BID@06,18 IV Last administered on 06/22/16 06 :09; Admin Dose 40 MG; Start 06/11/16 at 18:00 Furosemide (Lasix) 40 mg DAILY IV Last administered on 06/22/16 08:30; Admin Dose 40 MG; Start 06/12/16 at 13:00 Eye Lubricant (Artificial Tears Oph) 2 drop QID BOTH EYES Last administered on 06/22/16 08:44; Admin Dose 2 DROP; Start 06/12/16 at 13:00 Hydralazine HCl (Apresoline) 10 mg Q2H PRN IV SBP>170; Start 06/12/16 at 17:00 Metoprolol Tartrate (Lopressor) 5 mg Q6H PRN IV HR>130; Start 06/14/16 at 09:00 Metoprolol Tartrate (Lopressor) 25 mg BID PO Last administered on 06/22/16 08: 30; Admin Dose 25 MG; Start 06/14/16 at 21:00 Acetaminophen (Tylenol Liquid) 650 mg Q4H PRN NGT PAIN AND OR ELEVATED TEMP Last administered on 06/22/16 01:16; Admin Dose 650 MG; Start 06/17/16 at 12:30 Lactulose (Enulose) 30 gm DAILY PO Last administered on 06/22/16 08:30; Admin Dose 30 GM; Start 06/20/16 at 09:00 Amiodarone HCl (Cordarone) 400 mg DAILY NGT Last administered on 06/22/16 08: 30; Admin Dose 400 MG; Start 06/21/16 at 09:00 BLADIMIR DEAN MD Jun 22, 2016 11:25
--- NOTE | 2016-06-22 11:33 | CONS ---
Date/Time of Note Date/Time of Note DATE: 06/22/16 TIME: 11:18 Assessment/Plan Assessment/Plan Additional Assessment/Plan 1. 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 - continue Protonix 40 mg IV BID 2. Severe Anemia 2/2 #1-stable - monitor h/h. transfuse 2 units if hgb less than 7.5. 3. Decompensated Alcoholic Liver Cirrhosis with Encephalopathy. 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 - continue lactulose -pt last drink a year ago. Encouraged continued abstinence 4. Hypotension: 2/2 GI Bleed-resolved - cont IVF 5. Dysphagia -Patient failed swallow evaluation -Family declines PEG plus EGD -Prefer to start TPN Further recommendations depend on clinical course Patient seen in collaboration with Dr. Arce Consultation Date/Type/Reason Admit Date/Time Jun 09, 2016 at 04:01 Initial Consult Date 06/09/16 Type of Consultation: Gastroenterology Referring Provider: MAURY BENITEZ MD 24 HR Interval Summary Free Text/Dictation Patient failed swallow study Son declines PEG prefers TPN for nutrition Hemoglobin stable No BM times several days KUB ordered to rule out ileus Exam/Review of Systems Vital Signs Vitals Vital Signs Date Time Temp Pulse Resp B/P Pulse Ox O2 Delivery O2 Flow Rate FiO2 06/22/16 09:47 89 06/22/16 07:55 99.8 19 106/61 94 06/22/16 06:08 2.0 06/22/16 02:45 Nasal Cannula Intake and Output 06/21/16 06/21/16 06/22/16 15:00 23:00 07:00 Intake Total 400 ml 350 ml Output Total 495 ml 520 ml Balance -95 ml -170 ml Exam Constitutional: Alert Psych: confusion Head: atraumatic, normocephalic Eyes: nl conjunctiva, nl lids ENMT: nl external ears & nose, nl lips & teeth, nl nasal mucosa & septum Neck: non-tender, supple Respiratory: normal air movement Cardiovascular: nl pulses, regular rate and rhythm Gastrointestinal: bowel sounds, non-tender, soft Results Result Diagram: 06/22/16 0945 06/22/16 0945 Results 24 hrs Laboratory Tests Test 06/22/16 05:00 06/22/16 09:45 Arterial Blood HCO3 24.4 Arterial Blood Base Excess 1.6 Arterial Blood Oxygen Saturation 94.3 L Adelso Test ACCEPTAB Arterial Blood Gas Puncture Site Left Radial Arterial Blood Carboxyhemoglobin 0.3 Arterial Blood Date Drawn 06/22/2016 5:00:07 AM Arterial Blood Methemoglobin 0.4 Arterial Blood pCO2 (Temp correct) 31.3 L Arterial Blood pH (Temp corrected) 7.510 H Arterial Blood pO2 (Temp corrected) 69.3 L Blood Gas A-a O2 Differential 172.7 H Blood Gas Modality NASAL CANNULA Blood Gas Notified Time 06/22/2016 5:13:44 AM Blood Gas Notified Whom MM Blood Gas Specimen Source Blood arterial Blood Gas Temperature 37.0 FiO2 39.0 Oxyhemoglobin Percent 93.6 Total Hemoglobin 8.5 L Activated Partial Thromboplast Time 35.4 H Anion Gap 16 Basophils # 0.1 Basophils % 1.1 Blood Urea Nitrogen 38 H Calcium Level 8.0 L Carbon Dioxide Level 30 Chloride Level 110 Creatinine 0.94 Eosinophils # 0.5 Eosinophils % 7.5 H Glucose Level 113 Hematocrit 29.5 L Hemoglobin 8.9 L INR International Normalized Ratio 1.26 Lymphocytes # 0.8 Lymphocytes % 13.5 L Mean Corpuscular Hemoglobin 26.7 L Mean Corpuscular Hemoglobin Concent 30.2 L Mean Corpuscular Volume 88.6 Mean Platelet Volume 12.0 H Monocytes # 0.6 Monocytes % 9.8 Neutrophils # 4.1 Neutrophils % 67.6 Nucleated Red Blood Cells # 0.0 Nucleated Red Blood Cells % 0.0 Platelet Count 167 # Potassium Level 3.8 Prothrombin Time 15.9 H Prothrombin Time Ratio 1.2 Red Blood Count 3.33 L Red Cell Distribution Width 18.3 H Sodium Level 152 H White Blood Count 6.1 # Medications Medications Current Medications Ondansetron HCl (Zofran Inj) 4 mg Q6H PRN IV NAUSEA AND/OR VOMITING; Start 06/09 at 04:30 Morphine Sulfate (morphine) 2 mg Q4H PRN IV PAIN LEVEL 7-10 Last administered on 06/22/16 00:48; Admin Dose 2 MG; Start 06/09/16 at 04:30 Lorazepam (Ativan) 1 mg Q2H PRN IV ANXIETY Last administered on 06/21/16 03:23 ; Admin Dose 1 MG; Start 06/09/16 at 04:30 Dutasteride (Avodart) 0.5 mg AM PO Last administered on 06/22/16 08:30; Admin Dose 0.5 MG; Start 06/09/16 at 09:00 Finasteride (Proscar) 5 mg AM PO Last administered on 06/22/16 08:30; Admin Dose 5 MG; Start 06/09/16 at 09:00 Levothyroxine Sodium (Synthroid) 50 mcg DAILY@06 PO Last administered on 06:09; Admin Dose 50 MCG; Start 06/09/16 at 06:00 IV Flush (NS 10 ml) 10 ml PRN PRN IV IV PROTOCOL; Start 06/09/16 at 17:00 Miscellaneous Information 1 ea NOTE XX ; Start 06/11/16 at 08:30 Rifaximin (Xifaxan) 550 mg BID PO Last administered on 06/22/16 08:30; Admin Dose 550 MG; Start 06/11/16 at 14:30 Pantoprazole (Protonix Iv) 40 mg BID@06,18 IV Last administered on 06/22/16 06 :09; Admin Dose 40 MG; Start 06/11/16 at 18:00 Furosemide (Lasix) 40 mg DAILY IV Last administered on 06/22/16 08:30; Admin Dose 40 MG; Start 06/12/16 at 13:00 Eye Lubricant (Artificial Tears Oph) 2 drop QID BOTH EYES Last administered on 06/22/16 08:44; Admin Dose 2 DROP; Start 06/12/16 at 13:00 Hydralazine HCl (Apresoline) 10 mg Q2H PRN IV SBP>170; Start 06/12/16 at 17:00 Metoprolol Tartrate (Lopressor) 5 mg Q6H PRN IV HR>130; Start 06/14/16 at 09:00 Metoprolol Tartrate (Lopressor) 25 mg BID PO Last administered on 06/22/16 08: 30; Admin Dose 25 MG; Start 06/14/16 at 21:00 Acetaminophen (Tylenol Liquid) 650 mg Q4H PRN NGT PAIN AND OR ELEVATED TEMP Last administered on 06/22/16 01:16; Admin Dose 650 MG; Start 06/17/16 at 12:30 Lactulose (Enulose) 30 gm DAILY PO Last administered on 06/22/16 08:30; Admin Dose 30 GM; Start 06/20/16 at 09:00 Amiodarone HCl (Cordarone) 400 mg DAILY NGT Last administered on 06/22/16 08: 30; Admin Dose 400 MG; Start 06/21/16 at 09:00 KODY SHELDON Jun 22, 2016 11:32
--- NOTE | 2016-06-22 11:44 | PN ---
Date/Time of Note Date/Time of Note DATE: 06/22/16 TIME: 11:37 Assessment/Plan VTE Prophylaxis VTE Prophylaxis Intervention: SCD's Lines/Catheters IV Catheter Type (from Nrs): PICC Line Central line still needed: Yes (IV access ) Urinary Cath still in place: Yes Reason Cath still needed: other (indicate) (strict I/O ) Assessment/Plan Assessment/Plan 1. 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 Severe Anemia 2/2 #1-stable 3. Decompensated Alcoholic Liver Cirrhosis with Encephalopathy -Hep panel shows Hx of Exposure to Hep B but no active infection 4. Hypotension: 2/2 GI Bleed-resolved s/p Pressors 5. Low TSH 2/2 sick euthyroid 6. s/p VDRF now extubated PPx-SCDs Patient failed swallow evaluation secondary to lethargyx 2- discussed with family at bedside they don't want to have Feeding tube at this point, they will think about it- They want to wait, meanwhile we will continue NG Tube feeding Pt is still not waking up, Neurology asked to follow up to rule out anoxic encephalopathy, EEG has been ordered decreased rate of TF to 50cc/hour palliative care to follow up Total time spent in patient evaluation and plan is more than 50 minutes and more than 50% time spent in educating patient/family at bedside. Subjective 24 Hr Interval Summary Free Text/Dictation pt transferred to tele, bp stable Exam/Review of Systems Vital Signs Vitals Vital Signs Date Time Temp Pulse Resp B/P Pulse Ox O2 Delivery O2 Flow Rate FiO2 06/22/16 09:47 89 06/22/16 08:00 Nasal Cannula 4.0 06/22/16 07:55 99.8 19 106/61 94 Intake and Output 06/21/16 06/21/16 06/22/16 15:00 23:00 07:00 Intake Total 400 ml 350 ml Output Total 495 ml 520 ml Balance -95 ml -170 ml Exam Constitutional: more alert but still intermittently confused Psych: confusion Head: atraumatic, normocephalic Eyes: nl conjunctiva, nl lids ENMT: nl external ears & nose, nl lips & teeth, nl nasal mucosa & septum Neck: non-tender, supple Respiratory: clear to auscultation, normal air movement Cardiovascular: nl pulses, regular rate and rhythm Gastrointestinal: bowel sounds, non-tender, soft + nava catheter Results Result Diagram: 06/22/16 0945 06/22/16 0945 Results 24 hrs Laboratory Tests Test 06/22/16 05:00 06/22/16 09:45 Arterial Blood HCO3 24.4 Arterial Blood Base Excess 1.6 Arterial Blood Oxygen Saturation 94.3 L Adelso Test ACCEPTAB Arterial Blood Gas Puncture Site Left Radial Arterial Blood Carboxyhemoglobin 0.3 Arterial Blood Date Drawn 06/22/2016 5:00:07 AM Arterial Blood Methemoglobin 0.4 Arterial Blood pCO2 (Temp correct) 31.3 L Arterial Blood pH (Temp corrected) 7.510 H Arterial Blood pO2 (Temp corrected) 69.3 L Blood Gas A-a O2 Differential 172.7 H Blood Gas Modality NASAL CANNULA Blood Gas Notified Time 06/22/2016 5:13:44 AM Blood Gas Notified Whom MM Blood Gas Specimen Source Blood arterial Blood Gas Temperature 37.0 FiO2 39.0 Oxyhemoglobin Percent 93.6 Total Hemoglobin 8.5 L Activated Partial Thromboplast Time 35.4 H Anion Gap 16 Basophils # 0.1 Basophils % 1.1 Blood Urea Nitrogen 38 H Calcium Level 8.0 L Carbon Dioxide Level 30 Chloride Level 110 Creatinine 0.94 Eosinophils # 0.5 Eosinophils % 7.5 H Glucose Level 113 Hematocrit 29.5 L Hemoglobin 8.9 L INR International Normalized Ratio 1.26 Lymphocytes # 0.8 Lymphocytes % 13.5 L Mean Corpuscular Hemoglobin 26.7 L Mean Corpuscular Hemoglobin Concent 30.2 L Mean Corpuscular Volume 88.6 Mean Platelet Volume 12.0 H Monocytes # 0.6 Monocytes % 9.8 Neutrophils # 4.1 Neutrophils % 67.6 Nucleated Red Blood Cells # 0.0 Nucleated Red Blood Cells % 0.0 Platelet Count 167 # Potassium Level 3.8 Prothrombin Time 15.9 H Prothrombin Time Ratio 1.2 Red Blood Count 3.33 L Red Cell Distribution Width 18.3 H Sodium Level 152 H White Blood Count 6.1 # Medications Medications Current Medications Ondansetron HCl (Zofran Inj) 4 mg Q6H PRN IV NAUSEA AND/OR VOMITING; Start 06/09 at 04:30 Morphine Sulfate (morphine) 2 mg Q4H PRN IV PAIN LEVEL 7-10 Last administered on 06/22/16t 00:48; Admin Dose 2 MG; Start 06/09/16 at 04:30 Lorazepam (Ativan) 1 mg Q2H PRN IV ANXIETY Last administered on 06/21/16 03:23 ; Admin Dose 1 MG; Start 06/09/16 at 04:30 Dutasteride (Avodart) 0.5 mg AM PO Last administered on 06/22/16 08:30; Admin Dose 0.5 MG; Start 06/09/16 at 09:00 Finasteride (Proscar) 5 mg AM PO Last administered on 06/22/16 08:30; Admin Dose 5 MG; Start 06/09/16 at 09:00 Levothyroxine Sodium (Synthroid) 50 mcg DAILY@06 PO Last administered on 06:09; Admin Dose 50 MCG; Start 06/09/16 at 06:00 IV Flush (NS 10 ml) 10 ml PRN PRN IV IV PROTOCOL; Start 06/09/16 at 17:00 Miscellaneous Information 1 ea NOTE XX ; Start 06/11/16 at 08:30 Rifaximin (Xifaxan) 550 mg BID PO Last administered on 06/22/16 08:30; Admin Dose 550 MG; Start 06/11/16 at 14:30 Pantoprazole (Protonix Iv) 40 mg BID@06,18 IV Last administered on 06/22/16 06 :09; Admin Dose 40 MG; Start 06/11/16 at 18:00 Furosemide (Lasix) 40 mg DAILY IV Last administered on 06/22/16 08:30; Admin Dose 40 MG; Start 06/12/16 at 13:00 Eye Lubricant (Artificial Tears Oph) 2 drop QID BOTH EYES Last administered on 06/22/16 08:44; Admin Dose 2 DROP; Start 06/12/16 at 13:00 Hydralazine HCl (Apresoline) 10 mg Q2H PRN IV SBP>170; Start 06/12/16 at 17:00 Metoprolol Tartrate (Lopressor) 5 mg Q6H PRN IV HR>130; Start 06/14/16 at 09:00 Metoprolol Tartrate (Lopressor) 25 mg BID PO Last administered on 06/22/16 08: 30; Admin Dose 25 MG; Start 06/14/16 at 21:00 Acetaminophen (Tylenol Liquid) 650 mg Q4H PRN NGT PAIN AND OR ELEVATED TEMP Last administered on 06/22/16 01:16; Admin Dose 650 MG; Start 06/17/16 at 12:30 Lactulose (Enulose) 30 gm DAILY PO Last administered on 06/22/16 08:30; Admin Dose 30 GM; Start 06/20/16 at 09:00 Amiodarone HCl (Cordarone) 400 mg DAILY NGT Last administered on 06/22/16 08: 30; Admin Dose 400 MG; Start 06/21/16 at 09:00 MAURY BENITEZ MD Jun 22, 2016 11:44
--- NOTE | 2016-06-22 12:51 | RADRPT ---
PROCEDURE: XR Abdomen. CLINICAL INDICATION: Rule out ileus. Lack of bowel movements for 4 days. TECHNIQUE: AP abdomen x-ray. COMPARISON: No. FINDINGS: There are degenerative osteophytes in the thoracic and lumbar spine. There is air in the colon with no significant fecal material identified in the colon. An NG tube is present in the stomach. Ther e is a area of atelectasis or infiltrate in the left lower lobe. The left ventricle is borderline en larged. IMPRESSION: 1. The bowel gas pattern is normal with air noted in large portions of the colon with no evidence of fecal material identified. 2. Satisfactory positioning of the NG tube. 3. Consolidative infiltrate/atelectasis in the medial aspect of the left lower lobe. 4. Borderline left ventricular enlargement. Physician Lakeisha Date Time Electronically viewed and signed by Dat Schulz Physician on 06/22/2016 12:50 LEANDRO/
--- NOTE | 2016-06-22 16:11 | PN ---
DATE: 06/22/2016 PULMONARY FOLLOWUP SUBJECTIVE: Patient Sinan remains stable. Still with moderate secretions, required deep suction ing overnight. VITAL SIGNS: Temperature 99, pulse 87, blood pressure 108/61, O2 saturation 95% on 6 liters. NECK: Supple. No JVD or lymphadenopathy. CARDIAC: S1, S2, no added sounds or murmurs. CHEST: Diminished air entry bilaterally. ABDOMEN: Soft, nontender. No guarding or rebound. EXTREMITIES: No cyanosis, clubbing, edema. NEUROLOGIC: Generalized weakness. LABORATORY DATA: White count 6.1, hemoglobin 8.9, platelets 167. BUN 38, creatinine 0.94. Arteria l blood gas: pH of 7.5, pCO2 of 31, PaO2 of 69. INR 1.26. IMPRESSION: 1. Decompensated liver disease with encephalopathy. 2. Status post respiratory failure. 3. History of gastrointestinal bleed. PLAN: 1. Continue aspiration precautions. 2. Continue pulmonary toilet. 3. Continue neurologic recommendations. 4. Agree with palliative care recommendations. Dictated By: DENIZ WILLIS/RICK Conf#: [id number] DID#: [id number]
--- NOTE | 2016-06-22 17:39 | SP ---
DATE OF PROCEDURE: PROCEDURE: Electroencephalogram REFERRING PHYSICIAN: Dr. Collins and . TECHNIQUE: EEG done using 10-20 International electrode system with photic stimulation. FINDINGS: Bilateral occipital hemisphere views show delta and theta waves, medium sized, low amplit ude, asymmetric bilateral. Photic stimulation done did elicit a drive. Some electromyogram artifac t recorded. IMPRESSION: This is an abnormal electroencephalogram, shows generalized slowing consistent with und erlying encephalopathy. No epileptiform discharge or seizure activity is recorded. Followup EEG ma y be needed if clinically indicated. Again, thank you for asking me to see the patient with you. Dictated By: THEODORE ROBERTO/RICK Conf#: [id number] DID#: [id number]
[2016-06-23] VITALS (11 sets, daily range): BP systolic 91–119; BP diastolic 53–59; PULSE 72–89; RESP 17–21
[2016-06-23] MEDS: LORAZEPAM 2 MG INJ IV PRN (00:32)
[2016-06-23] MEDS ORDERED: ALTEPLASE (CATHFLO) 2 MG INJ CATHETER ONE (01:00)
[2016-06-23] MEDS: LEVOTHYROXINE 50 MCG TAB PO SCH (06:00)
[2016-06-23] MEDS: PANTOPRAZOLE 40 MG INJ IV SCH ×2 (06:25→18:51)
[2016-06-23 08:55] LABS: POTASSIUM 3.7 mmol/L (3.5-5.1)
[2016-06-23 08:58] LABS: CREATININE 0.94 mg/dl (0.61-1.24)
[2016-06-23] MEDS: ARTIFICIAL TEARS 15 ML OPH BOTH EYES SCH ×4 (09:00→22:11)
[2016-06-23] MEDS: LACTULOSE 30ML CUP PO SCH (10:02)
[2016-06-23] MEDS: FINASTERIDE 5 MG TAB PO SCH (10:03)
[2016-06-23] MEDS: FUROSEMIDE 40 MG INJ IV SCH (10:03)
[2016-06-23] MEDS: AMIODARONE 200 MG TAB NGT SCH (10:03)
[2016-06-23] MEDS: METOPROLOL 25 MG TAB PO SCH ×2 (10:04→22:12)
[2016-06-23] MEDS: DUTASTERIDE 0.5 MG CAP PO SCH (10:04)
[2016-06-23] MEDS: RIFAXIMIN 550 MG TAB PO SCH ×2 (10:04→22:11)
--- NOTE | 2016-06-23 11:05 | CONS ---
Date/Time of Note Date/Time of Note DATE: 06/23/16 TIME: 11:01 Assessment/Plan Assessment/Plan Additional Assessment/Plan 1. 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 - continue Protonix 40 mg IV BID 2. Severe Anemia 2/2 #1-stable - monitor h/h. transfuse 2 units if hgb less than 7.5. 3. Decompensated Alcoholic Liver Cirrhosis with Encephalopathy. 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 - continue lactulose -pt last drink a year ago. Encouraged continued abstinence 4. Hypotension: 2/2 GI Bleed-resolved - cont IVF 5. Dysphagia -Patient failed swallow evaluation -Family declines PEG plus EGD -Prefer to start TPN GI Sign Off. Available prn. Further recommendations depend on clinical course Patient seen in collaboration with Dr. Arce Consultation Date/Type/Reason Admit Date/Time Jun 09, 2016 at 04:01 Initial Consult Date 06/09/16 Type of Consultation: Gastroenterology Referring Provider: MAURY BENITEZ MD 24 HR Interval Summary Free Text/Dictation KUB neg for obstruction Family refuses PEG GI sign off Exam/Review of Systems Vital Signs Vitals Vital Signs Date Time Temp Pulse Resp B/P Pulse Ox O2 Delivery O2 Flow Rate FiO2 06/23/16 10:49 Nasal Cannula 5.0 06/23/16 08:26 82 06/23/16 08:02 99.5 17 113/53 98 Intake and Output 06/22/16 06/22/16 06/23/16 15:00 23:00 07:00 Intake Total 500 ml 600 ml Output Total 450 ml 1350 ml Balance 50 ml -750 ml Exam Constitutional: Alert Psych: confusion Head: atraumatic, normocephalic Eyes: nl conjunctiva, nl lids ENMT: nl external ears & nose, nl lips & teeth, nl nasal mucosa & septum Neck: non-tender, supple Respiratory: normal air movement Cardiovascular: nl pulses, regular rate and rhythm Gastrointestinal: bowel sounds, non-tender, soft Results Result Diagram: 06/22/16 0945 06/23/16 0757 Results 24 hrs Laboratory Tests Test 06/23/16 07:57 Anion Gap 15 Blood Urea Nitrogen 35 H Calcium Level 8.0 L Carbon Dioxide Level 31 Chloride Level 113 H Creatinine 0.94 Glucose Level 121 Potassium Level 3.7 Sodium Level 155 H Medications Medications Current Medications Ondansetron HCl (Zofran Inj) 4 mg Q6H PRN IV NAUSEA AND/OR VOMITING; Start 06/09 at 04:30 Morphine Sulfate (morphine) 2 mg Q4H PRN IV PAIN LEVEL 7-10 Last administered on 06/22/16 22:31; Admin Dose 2 MG; Start 06/09/16 at 04:30 Lorazepam (Ativan) 1 mg Q2H PRN IV ANXIETY Last administered on 06/23/16 00:32 ; Admin Dose 1 MG; Start 06/09/16 at 04:30 Dutasteride (Avodart) 0.5 mg AM PO Last administered on 06/23/16 10:04; Admin Dose 0.5 MG; Start 06/09/16 at 09:00 Finasteride (Proscar) 5 mg AM PO Last administered on 06/23/16 10:03; Admin Dose 5 MG; Start 06/09/16 at 09:00 Levothyroxine Sodium (Synthroid) 50 mcg DAILY@06 PO Last administered on 06:09; Admin Dose 50 MCG; Start 06/09/16 at 06:00 IV Flush (NS 10 ml) 10 ml PRN PRN IV IV PROTOCOL; Start 06/09/16 at 17:00 Miscellaneous Information 1 ea NOTE XX ; Start 06/11/16 at 08:30 Rifaximin (Xifaxan) 550 mg BID PO Last administered on 06/23/16 10:04; Admin Dose 550 MG; Start 06/11/16 at 14:30 Pantoprazole (Protonix Iv) 40 mg BID@06,18 IV Last administered on 06/23/16 06 :25; Admin Dose 40 MG; Start 06/11/16 at 18:00 Furosemide (Lasix) 40 mg DAILY IV Last administered on 06/23/16 10:03; Admin Dose 40 MG; Start 06/12/16 at 13:00 Eye Lubricant (Artificial Tears Oph) 2 drop QID BOTH EYES Last administered on 06/23/16 09:00; Admin Dose 2 DROP; Start 06/12/16 at 13:00 Hydralazine HCl (Apresoline) 10 mg Q2H PRN IV SBP>170; Start 06/12/16 at 17:00 Metoprolol Tartrate (Lopressor) 5 mg Q6H PRN IV HR>130; Start 06/14/16 at 09:00 Metoprolol Tartrate (Lopressor) 25 mg BID PO Last administered on 06/23/16 10: 04; Admin Dose 25 MG; Start 06/14/16 at 21:00 Acetaminophen (Tylenol Liquid) 650 mg Q4H PRN NGT PAIN AND OR ELEVATED TEMP Last administered on 06/22/16 01:16; Admin Dose 650 MG; Start 06/17/16 at 12:30 Lactulose (Enulose) 30 gm DAILY PO Last administered on 06/23/16 10:02; Admin Dose 30 GM; Start 06/20/16 at 09:00 Amiodarone HCl (Cordarone) 400 mg DAILY NGT Last administered on 06/23/16 10: 03; Admin Dose 400 MG; Start 06/21/16 at 09:00 KODY SHELDON Jun 23, 2016 11:05
--- NOTE | 2016-06-23 12:47 | PN ---
Date/Time of Note Date/Time of Note DATE: 06/23/16 TIME: 12:45 Assessment/Plan VTE Prophylaxis VTE Prophylaxis Intervention: SCD's Lines/Catheters IV Catheter Type (from Nrs): PICC Line Central line still needed: Yes (IV access) Urinary Cath still in place: Yes Reason Cath still needed: other (indicate) (strict I/O ) Assessment/Plan Assessment/Plan 1. 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 Severe Anemia 2/2 #1-stable 3. Decompensated Alcoholic Liver Cirrhosis with Encephalopathy -Hep panel shows Hx of Exposure to Hep B but no active infection 4. Hypotension: 2/2 GI Bleed-resolved s/p Pressors 5. Low TSH 2/2 sick euthyroid 6. s/p VDRF now extubated PPx-SCDs Patient failed swallow evaluation secondary to lethargy x 2- discussed with family at bedside they don't want to have Feeding tube at this point, they will think about it- They want to wait, meanwhile we will continue NG Tube feeding s/p Neurology consult, EEG showed encephalopathy, palliative care to follow up Total time spent in patient evaluation and plan is more than 50 minutes and more than 50% time spent in educating patient/family at bedside. Subjective 24 Hr Interval Summary Free Text/Dictation pt remains still altered,BP stable Exam/Review of Systems Vital Signs Vitals Vital Signs Date Time Temp Pulse Resp B/P Pulse Ox O2 Delivery O2 Flow Rate FiO2 06/23/16 12:24 72 06/23/16 11:46 97.8 21 108/58 95 06/23/16 10:49 Nasal Cannula 5.0 Intake and Output 06/22/16 06/22/16 06/23/16 14:59 22:59 06:59 Intake Total 500 ml 600 ml Output Total 450 ml 1350 ml Balance 50 ml -750 ml Exam Constitutional: more alert but still intermittently confused Psych: confusion Head: atraumatic, normocephalic Eyes: nl conjunctiva, nl lids ENMT: nl external ears & nose, nl lips & teeth, nl nasal mucosa & septum Neck: non-tender, supple Respiratory: clear to auscultation, normal air movement Cardiovascular: nl pulses, regular rate and rhythm Gastrointestinal: bowel sounds, non-tender, soft + nava catheter Results Result Diagram: 06/22/16 0945 06/23/16 0757 Results 24 hrs Laboratory Tests Test 06/23/16 07:57 Anion Gap 15 Blood Urea Nitrogen 35 H Calcium Level 8.0 L Carbon Dioxide Level 31 Chloride Level 113 H Creatinine 0.94 Glucose Level 121 Potassium Level 3.7 Sodium Level 155 H Medications Medications Current Medications Ondansetron HCl (Zofran Inj) 4 mg Q6H PRN IV NAUSEA AND/OR VOMITING; Start 06/09 at 04:30 Morphine Sulfate (morphine) 2 mg Q4H PRN IV PAIN LEVEL 7-10 Last administered on 06/22/16 22:31; Admin Dose 2 MG; Start 06/09/16 at 04:30 Lorazepam (Ativan) 1 mg Q2H PRN IV ANXIETY Last administered on 06/23/16 00:32 ; Admin Dose 1 MG; Start 06/09/16 at 04:30 Dutasteride (Avodart) 0.5 mg AM PO Last administered on 06/23/16 10:04; Admin Dose 0.5 MG; Start 06/09/16 at 09:00 Finasteride (Proscar) 5 mg AM PO Last administered on 06/23/16 10:03; Admin Dose 5 MG; Start 06/09/16 at 09:00 Levothyroxine Sodium (Synthroid) 50 mcg DAILY@06 PO Last administered on 06:09; Admin Dose 50 MCG; Start 06/09/16 at 06:00 IV Flush (NS 10 ml) 10 ml PRN PRN IV IV PROTOCOL; Start 06/09/16 at 17:00 Miscellaneous Information 1 ea NOTE XX ; Start 06/11/16 at 08:30 Rifaximin (Xifaxan) 550 mg BID PO Last administered on 06/23/16 10:04; Admin Dose 550 MG; Start 06/11/16 at 14:30 Pantoprazole (Protonix Iv) 40 mg BID@06,18 IV Last administered on 06/23/16 06 :25; Admin Dose 40 MG; Start 06/11/16 at 18:00 Furosemide (Lasix) 40 mg DAILY IV Last administered on 06/23/16 10:03; Admin Dose 40 MG; Start 06/12/16 at 13:00 Eye Lubricant (Artificial Tears Oph) 2 drop QID BOTH EYES Last administered on 06/23/16 09:00; Admin Dose 2 DROP; Start 06/12/16 at 13:00 Hydralazine HCl (Apresoline) 10 mg Q2H PRN IV SBP>170; Start 06/12/16 at 17:00 Metoprolol Tartrate (Lopressor) 5 mg Q6H PRN IV HR>130; Start 06/14/16 at 09:00 Metoprolol Tartrate (Lopressor) 25 mg BID PO Last administered on 06/23/16 10: 04; Admin Dose 25 MG; Start 06/14/16 at 21:00 Acetaminophen (Tylenol Liquid) 650 mg Q4H PRN NGT PAIN AND OR ELEVATED TEMP Last administered on 06/22/16 01:16; Admin Dose 650 MG; Start 06/17/16 at 12:30 Lactulose (Enulose) 30 gm DAILY PO Last administered on 06/23/16 10:02; Admin Dose 30 GM; Start 06/20/16 at 09:00 Amiodarone HCl (Cordarone) 400 mg DAILY NGT Last administered on 06/23/16 10: 03; Admin Dose 400 MG; Start 06/21/16 at 09:00 MAURY BENITEZ MD Jun 23, 2016 12:47
[2016-06-23] MEDS ORDERED: CEFAZOLIN 1 GM/50 ML (PMX) 50 ML IVPB ONE (15:00)
--- NOTE | 2016-06-23 16:50 | CONS ---
Date/Time of Note Date/Time of Note DATE: 06/23/16 TIME: 16:47 Assessment/Plan Assessment/Plan Chief Complaint/Hosp Course IMPRESSION: 1. Paroxysmal atrial fibrillation/atrial flutter, now back in sinus rhythm and remains thus 2. Abnormal electrocardiogram. Assess for acute coronary syndrome. 3. Hypotension, now improved. 4. Gastrointestinal bleed. 5. Cirrhosis. 6. Encephalopathy. 7. Anemia, severe, status post transfusions. 8. Hypernatremia. 9. Coagulopathy 10.Fever 11.PNA Recc: -Tele -Continue amiodarone PO at current dose -Continue BB as tolerated -No asa/systemic anti-coag secondary to anemia/GIB -Follow MS closely -Follow Hgb closely -Continue gentle lasix diuresis and continue to follow volume status closely -Free water for elevated na -F/U cx data and consider standing abx's Problems: Consultation Date/Type/Reason Admit Date/Time Jun 09, 2016 at 04:01 Initial Consult Date 06/09/16 Type of Consultation: Cardiology Reason for Consultation PAF/AFL Referring Provider: MAURY BENITEZ MD Exam/Review of Systems Vital Signs Vitals Vital Signs Date Time Temp Pulse Resp B/P Pulse Ox O2 Delivery O2 Flow Rate FiO2 06/23/16 15:55 99.4 72 17 91/53 94 06/23/16 10:49 Nasal Cannula 5.0 Intake and Output 06/22/16 06/22/16 06/23/16 15:00 23:00 07:00 Intake Total 500 ml 600 ml Output Total 450 ml 1350 ml Balance 50 ml -750 ml Exam Review of Systems: CONSTITUTIONAL: No fevers, chills. PULMONARY: No sob CARDIOVASCULAR: No chest pain/palpitations GASTROINTESTINAL: No nausea/vomiting. GENITOURINARY: No hematuria/dysuria. MUSCULOSKELETAL: No myagias/arthalgias. PSYCHIATRIC: The patient denies depression. NEUROLOGIC: confused Constitutional: alert, oriented Psych: no complaints Head: normocephalic ENMT: mucosa pink and moist Neck: jvd, supple Respiratory: diminished breath sounds (at bases/B) Cardiovascular: regular rate and rhythm Gastrointestinal: non-tender, soft Musculoskeletal: muscle tone (normal) Extremities: edema (none) Neurological: confused Results Result Diagram: 06/22/16 0945 06/23/16 0757 Results 24 hrs Laboratory Tests Test 06/23/16 07:57 Anion Gap 15 Blood Urea Nitrogen 35 H Calcium Level 8.0 L Carbon Dioxide Level 31 Chloride Level 113 H Creatinine 0.94 Glucose Level 121 Potassium Level 3.7 Sodium Level 155 H Medications Medications Current Medications Ondansetron HCl (Zofran Inj) 4 mg Q6H PRN IV NAUSEA AND/OR VOMITING; Start 06/09 at 04:30 Morphine Sulfate (morphine) 2 mg Q4H PRN IV PAIN LEVEL 7-10 Last administered on 06/22/16 22:31; Admin Dose 2 MG; Start 06/09/16 at 04:30 Lorazepam (Ativan) 1 mg Q2H PRN IV ANXIETY Last administered on 06/23/16 00:32 ; Admin Dose 1 MG; Start 06/09/16 at 04:30 Dutasteride (Avodart) 0.5 mg AM PO Last administered on 06/23/16 10:04; Admin Dose 0.5 MG; Start 06/09/16 at 09:00 Finasteride (Proscar) 5 mg AM PO Last administered on 06/23/16 10:03; Admin Dose 5 MG; Start 06/09/16 at 09:00 Levothyroxine Sodium (Synthroid) 50 mcg DAILY@06 PO Last administered on 06:09; Admin Dose 50 MCG; Start 06/09/16 at 06:00 IV Flush (NS 10 ml) 10 ml PRN PRN IV IV PROTOCOL; Start 06/09/16 at 17:00 Miscellaneous Information 1 ea NOTE XX ; Start 06/11/16 at 08:30 Rifaximin (Xifaxan) 550 mg BID PO Last administered on 06/23/16 10:04; Admin Dose 550 MG; Start 06/11/16 at 14:30 Pantoprazole (Protonix Iv) 40 mg BID@06,18 IV Last administered on 06/23/16 06 :25; Admin Dose 40 MG; Start 06/11/16 at 18:00 Furosemide (Lasix) 40 mg DAILY IV Last administered on 06/23/16 10:03; Admin Dose 40 MG; Start 06/12/16 at 13:00 Eye Lubricant (Artificial Tears Oph) 2 drop QID BOTH EYES Last administered on 06/23/16 09:00; Admin Dose 2 DROP; Start 06/12/16 at 13:00 Hydralazine HCl (Apresoline) 10 mg Q2H PRN IV SBP>170; Start 06/12/16 at 17:00 Metoprolol Tartrate (Lopressor) 5 mg Q6H PRN IV HR>130; Start 06/14/16 at 09:00 Metoprolol Tartrate (Lopressor) 25 mg BID PO Last administered on 06/23/16 10: 04; Admin Dose 25 MG; Start 06/14/16 at 21:00 Acetaminophen (Tylenol Liquid) 650 mg Q4H PRN NGT PAIN AND OR ELEVATED TEMP Last administered on 06/22/16 01:16; Admin Dose 650 MG; Start 06/17/16 at 12:30 Lactulose (Enulose) 30 gm DAILY PO Last administered on 06/23/16 10:02; Admin Dose 30 GM; Start 06/20/16 at 09:00 Amiodarone HCl (Cordarone) 400 mg DAILY NGT Last administered on 06/23/16 10: 03; Admin Dose 400 MG; Start 06/21/16 at 09:00 ANGELES ODONNELL Jun 23, 2016 16:50
--- NOTE | 2016-06-23 19:11 | CONS ---
DATE OF ADMISSION: 06/09/2016 DATE OF CONSULTATION: REFERRING PHYSICIAN: Dr. Collins Thank you for asking me to see the patient. HISTORY OF PRESENT ILLNESS: This is a followup note for the patient Sinan. The patient is 71 ye ars old, accompanied by his granddaughter in his room. The patient has end-stage liver cell failure . The patient had GI bleeding, hypertension. The patient was unresponsive, difficult to follow sim ple commands. However, his granddaughter said he communicates with her, but he looks a little confu sed. His current medications include: 1. Protonix 40 mg once a day. 2. Lasix 20 mg once a day. 3. Avodart 0.5 mg once a day. 4. Proscar 5 mg once a day. 5. Synthroid 50 mcg once a day. 6. Zofran 4 mg IV every 6 hours as needed. 7. Albuterol inhaler twice a day. 8. Ativan 1 mg every 8 hours. 9. Morphine sulfate 2 mg as needed. PHYSICAL EXAMINATION: GENERAL: On exam today, the patient is alert, awake, however is confused. CRANIAL NERVES: Cranial nerve II: Pupils equal on both sides, reactive to light. Cranial nerves I II, IV and : Extraocular muscles intact. No nystagmus. Cranial nerve V: Equal sensation to fac e. Cranial nerve VII: Symmetrical face. Cranial nerve VIII: Decreased hearing bilaterally. Cran ial nerve IX, X: Elevates tongue. Cranial nerve XI: Elevates shoulder 5/5. Cranial nerve XII: S traight tongue. 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 Sensation decreased for glove and sock area for light touc h and temperature. COORDINATION: [id number] test intact. HEART: Regular rate and rhythm. LUNGS: Equal breath sounds. ABDOMEN: Soft, relaxed, nondistended. No tenderness. ASSESSMENT AND PLAN: 1. This is a patient 71 years old with underlying encephalopathy. 2. Status post liver cell failure with gastrointestinal bleed and portal hypertension. 3. End-stage liver disease in which the patient has gastrointestinal bleed and portal hypertension. 4. The patient has electroencephalogram which shows slowing consistent with underlying encephalopat hy which is improved since previous electroencephalogram was done for him. I counseled his granddau cricket for about an hour about his status. Again, thank you for asking me to see the patient with you. Dictated By: THEODORE ROBERTO/RICK Conf#: [id number] DID#: [id number]
[2016-06-24] VITALS (13 sets, daily range): BP systolic 100–129; BP diastolic 53–63; PULSE 69–107; RESP 18–24
[2016-06-24] MEDS ORDERED: VITAMIN A & D 5 GM OINT PACKET TOP ONE (01:22)
[2016-06-24] MEDS: ACETAMINOPHEN 650MG/20.3ML CUP NGT PRN ×5 (01:30→23:24)
[2016-06-24] MEDS: ALBUTEROL 0.083% (NEB) 2.5 MG/3 ML AMP NEB PRN (01:32)
[2016-06-24] MEDS: IPRATROPIUM (NEB) 0.5 MG/2.5 ML AMP NEB PRN (01:32)
[2016-06-24] MEDS: PANTOPRAZOLE 40 MG INJ IV SCH ×2 (05:40→18:01)
[2016-06-24] MEDS: LEVOTHYROXINE 50 MCG TAB PO SCH (05:41)
[2016-06-24 06:47] LABS: INR 1.3; PROTIME 16.3 Sec (12.2-14.2); PT RATIO 1.3
[2016-06-24 06:48] LABS: PARTIAL THROMBOPLASTIN TIME 31.8 Sec (25.0-35.0)
[2016-06-24 06:50] LABS: ALBUMIN 2.7 g/dl (3.3-4.9)
[2016-06-24 06:51] LABS: POTASSIUM 3.8 mmol/L (3.5-5.1)
[2016-06-24 06:53] LABS: BILIRUBIN,INDIRECT 0.5 mg/dl (0-1.1); BILIRUBIN,TOTAL 0.5 mg/dl (0.2-1.3); CREATININE 0.94 mg/dl (0.61-1.24)
[2016-06-24 06:54] LABS: ALBUMIN/GLOBULIN RATIO 0.71; CALCIUM 8.3 mg/dl (8.4-10.2); TOTAL PROTEIN 6.5 g/dl (6.1-8.1)
[2016-06-24] MEDS: LACTULOSE 30ML CUP PO SCH ×2 (09:00→22:29)
[2016-06-24] MEDS: ARTIFICIAL TEARS 15 ML OPH BOTH EYES SCH ×4 (09:12→22:28)
[2016-06-24] MEDS: FUROSEMIDE 40 MG INJ IV SCH (09:12)
[2016-06-24 14:54] LABS: Allen Test ACCEPTAB; Arterial Base Excess 4.2 mmol/L (-3.0-3); Arterial COHb 0.3 % (0.0-3.0); Arterial Fraction of Oxyhgb 97.1 % (93.0-99.0); Arterial HCO3 25.4 mmol/L (22.0-26.0); Arterial MetHb 0.3 % (0.0-1.5); Arterial Total Hemglobin 10.7 g/dl (12.0-18.0); MODE MASK - NRB
--- NOTE | 2016-06-24 15:16 | RADRPT ---
PROCEDURE: XR Chest. CLINICAL INDICATION: Shortness of breath. TECHNIQUE: Single frontal view. COMPARISON: 06/21/2016. FINDINGS: The nasogastric tube tip is in the stomach and the left arm PICC line tip is in the superior vena ca va. There is mild atelectasis at the lung bases, improved. The lungs are otherwise clear. The heart is mildly enlarged. There is calcification in the aorta consistent with atherosclerosis. There is no pleural effusion. There is no pneumothorax. IMPRESSION: 1. Satisfactory position of nasogastric tube and left arm PICC line. 2. Cardiomegaly and atherosclerosis. 3. Improved appearance of the lung bases. RPTAT: QQ .Emmanuel Murillo MD, MD Date Time Electronically viewed and signed by .Emmanuel Murillo MD, MD on 06/24/2016 15:16 .R/
[2016-06-24] MEDS ORDERED: SOD CHLORIDE 0.9% 1,000 ML IV ONE (16:30)
[2016-06-24] MEDS ORDERED: ACETAZOLAMIDE 500 MG INJ IV ONE (16:30)
--- NOTE | 2016-06-24 17:00 | PN ---
DATE: 06/24/2016 TIME OF EVALUATION: 1400 SUBJECTIVE DATA: The patient has been lethargic today. The patient having fevers, and the patient was also having some hypoxia on low-flow O2. OBJECTIVE DATA: VITAL SIGNS: Temperature 100.0, pulse rate 107, respiratory rate 24, blood pressure 128/61, oxygen saturation 92% on high-flow O2. GENERAL: This is an obese Portuguese male lying in bed, very lethargic, not in any apparent distress. HEENT: Head normocephalic and atraumatic. Eyes: Anicteric sclerae. Conjunctivae clear. ENT: Nasal septum is midline. The patient's NG tube is clamped. Oral mucosa is dry. NECK: Supple. No JVD noticed. RESPIRATORY: Bilaterally diminished breath sounds. Very minimal use of accessory muscles of respiration. CARDIAC: Regular rate and rhythm. S1 and S2 heard. Tachycardic. ABDOMEN: Distended. Diffuse tenderness. Bowel sounds hypoactive. GENITOURINARY: The patient has Crandall catheter in place. The patient also has rectal tube in place. EXTREMITIES: No cyanosis, no clubbing, no edema. Peripheral pulses palpable. NEUROLOGIC: The patient is lethargic, however wakes up to call and opens eyes and tracks movements. LABORATORY AND DIAGNOSTIC DATA: WBC 6.1, hemoglobin 8.9, hematocrit 29.5, platelet count 167. Sodium 155, potassium 3.9, chloride 111, carbon dioxide 30 , anion gap 17, BUN 31, creatinine 0.94, glucose 89, calcium 8.3. Ammonia 45. ASSESSMENT AND PLAN: 1. Upper gastrointestinal bleeding secondary to bleeding esophageal varices. Status post esophagogastroduodenoscopy with banding, status post transfusion of multiple blood products. 2. Symptomatic anemia secondary to acute blood loss. Status post PRBC transfusion. Continue proton pump inhibitors. 3. Decompensated liver disease with hepatic encephalopathy. Continue the patient on Lasix. 4. Acute respiratory failure. Hypoxic. Status post intubation and extubation. Continue supplemental oxygen and inhaled bronchodilators. 5. Essential hypertension. Continue antihypertensives. 6. Dysphagia. Continue aspiration precautions. Speech Therapy following. Continue NG tube feedings at this time. 7. Hypernatremia. Continue free water via NG tube. 8. Coagulopathy secondary to underlying end-stage liver disease. Continue to monitor the coagulation panel. Continue to monitor the patient for any bleeding. 9. Systemic inflammatory response syndrome with fevers and tachycardia. The etiology unclear. Pancultures will be obtained. The patient has no evidence of any septic shock at this time. 10. Possible underlying aspiration pneumonia. Status post antibiotic therapy. 11. Diarrhea. The patient has a rectal tube in place. Will send stool studies. 12. Alcoholic liver cirrhosis with hyperammonemia. Continue rifaximin. Continue lactulose. 13. Paroxysmal atrial fibrillation. Currently in sinus rhythm. Continue amiodarone. 14. Fluid, electrolytes and nutrition. Continue n.p.o. Continue aspiration precautions. Continue NG tube. 15. Deep vein thrombosis prophylaxis. Chemical DVT prophylaxis contraindicated because of underlying coagulopathy. 16. Gastrointestinal prophylaxis. Proton pump inhibitors. 17. Plan: Send pancultures. Obtain a stat chest x-ray. Obtain a stat ABG. Start empiric antibiotics. The plan of care was explained to the patient's family who was at the bedside. The case was discussed with Dr. Naylor. KELLIE NAYLOR MD, AM/RICK Conf#: [id number] DID#: [id number] CLARA
[2016-06-24] MEDS: AMIODARONE 200 MG TAB NGT SCH (17:25)
[2016-06-24] MEDS: RIFAXIMIN 550 MG TAB PO SCH ×2 (17:25→22:28)
[2016-06-24] MEDS: DUTASTERIDE 0.5 MG CAP PO SCH (17:26)
[2016-06-24] MEDS: FINASTERIDE 5 MG TAB PO SCH (17:26)
[2016-06-24] MEDS: METOPROLOL 25 MG TAB PO SCH ×2 (17:26→22:28)
[2016-06-24] MEDS ORDERED: SOD CHLORIDE 0.9% 1,000 ML IV SCH (17:30)
[2016-06-24] MEDS: CEFEPIME 1GM/50 ML (PMX) 50 ML IVPB SCH (17:43)
--- NOTE | 2016-06-24 19:37 | CONS ---
Date/Time of Note Date/Time of Note DATE: 06/24/16 TIME: 19:35 Assessment/Plan Assessment/Plan Chief Complaint/Hosp Course IMPRESSION: 1. Paroxysmal atrial fibrillation/atrial flutter, now back in sinus rhythm and remains thus 2. Abnormal electrocardiogram. Assess for acute coronary syndrome. 3. Hypotension, now improved. 4. Gastrointestinal bleed. 5. Cirrhosis. 6. Encephalopathy. 7. Anemia, severe, status post transfusions. 8. Hypernatremia. 9. Coagulopathy 10.Fever 11.PNA Recc: -Tele -Continue amiodarone PO at current dose -Continue BB as tolerated -No asa/systemic anti-coag secondary to anemia/GIB -Follow MS closely -Follow Hgb closely -Continue gentle lasix diuresis and continue to follow volume status closely -Free water for elevated na -F/U cx data and continue abx's Problems: Consultation Date/Type/Reason Admit Date/Time Jun 09, 2016 at 04:01 Initial Consult Date 06/09/16 Type of Consultation: Cardiology Reason for Consultation PAF/AFL Referring Provider: MAURY BENITEZ MD Exam/Review of Systems Vital Signs Vitals Vital Signs Date Time Temp Pulse Resp B/P Pulse Ox O2 Delivery O2 Flow Rate FiO2 06/24/16 16:57 101 06/24/16 16:09 99.1 06/24/16 15:00 19 105/57 96 06/24/16 14:00 Mask 10.0 Intake and Output 06/23/16 06/23/16 06/24/16 15:00 23:00 07:00 Intake Total 950 ml 800 ml 870 ml Output Total 550 ml 1500 ml 1000 ml Balance 400 ml -700 ml -130 ml Exam Review of Systems: CONSTITUTIONAL: No fevers, chills. PULMONARY: No sob CARDIOVASCULAR: No chest pain/palpitations GASTROINTESTINAL: No nausea/vomiting. GENITOURINARY: No hematuria/dysuria. MUSCULOSKELETAL: No myagias/arthalgias. PSYCHIATRIC: The patient denies depression. NEUROLOGIC: confusion Constitutional: alert Psych: confusion Head: normocephalic ENMT: mucosa pink and moist Neck: jvd (8 cm water), supple Respiratory: diminished breath sounds (at bases/B) Cardiovascular: regular rate and rhythm Gastrointestinal: non-tender, soft Musculoskeletal: muscle tone (normal) Extremities: edema (none) Neurological: lethargic Results Result Diagram: 06/22/16 0945 06/24/16 0611 Results 24 hrs Laboratory Tests Test 06/24/16 06:11 06/24/16 14:20 06/24/16 15:20 Activated Partial Thromboplast Time 31.8 Alanine Aminotransferase (ALT/SGPT) 28 Albumin 2.7 L Albumin/Globulin Ratio 0.71 Alkaline Phosphatase 155 H Ammonia 45 #H Anion Gap 17 H Aspartate Amino Transf (AST/SGOT) 39 Blood Urea Nitrogen 31 H Calcium Level 8.3 L Carbon Dioxide Level 31 Chloride Level 111 H Creatinine 0.94 Direct Bilirubin 0.00 Globulin 3.80 H Glucose Level 89 INR International Normalized Ratio 1.30 Indirect Bilirubin 0.5 Potassium Level 3.8 Prothrombin Time 16.3 H Prothrombin Time Ratio 1.3 Sodium Level 155 H Total Bilirubin 0.5 Total Protein 6.5 Arterial Blood HCO3 25.4 Arterial Blood Base Excess 4.2 H Arterial Blood Oxygen Saturation 97.7 Adelso Test ACCEPTAB Arterial Blood Gas Puncture Site Right Radial Arterial Blood Carboxyhemoglobin 0.3 Arterial Blood Date Drawn 06/24/2016 2:40:21 PM Arterial Blood Methemoglobin 0.3 Arterial Blood pCO2 (Temp correct) 27.0 L Arterial Blood pH (Temp corrected) 7.591 *H Arterial Blood pO2 (Temp corrected) 102.0 H Blood Gas A-a O2 Differential 584.0 H Blood Gas Critical Value Read Back Robin SON RN Blood Gas Modality MASK - NRB Blood Gas Notified Time 06/24/2016 2:52:02 PM Blood Gas Notified Whom JLD Blood Gas Specimen Source Blood arterial Blood Gas Temperature 37.0 FiO2 100.0 Oxyhemoglobin Percent 97.1 Total Hemoglobin 10.7 L Lactic Acid Level 2.8 H Medications Medications Current Medications Ondansetron HCl (Zofran Inj) 4 mg Q6H PRN IV NAUSEA AND/OR VOMITING; Start 06/09 at 04:30 Morphine Sulfate (morphine) 2 mg Q4H PRN IV PAIN LEVEL 7-10 Last administered on 06/22/16 22:31; Admin Dose 2 MG; Start 06/09/16 at 04:30 Lorazepam (Ativan) 1 mg Q2H PRN IV ANXIETY Last administered on 06/23/16 00:32 ; Admin Dose 1 MG; Start 06/09/16 at 04:30 Dutasteride (Avodart) 0.5 mg AM PO Last administered on 06/24/16 17:26; Admin Dose 0.5 MG; Start 06/09/16 at 09:00 Finasteride (Proscar) 5 mg AM PO Last administered on 06/24/16 17:26; Admin Dose 5 MG; Start 06/09/16 at 09:00 Levothyroxine Sodium (Synthroid) 50 mcg DAILY@06 PO Last administered on 05:41; Admin Dose 50 MCG; Start 06/09/16 at 06:00 IV Flush (NS 10 ml) 10 ml PRN PRN IV IV PROTOCOL; Start 06/09/16 at 17:00 Miscellaneous Information 1 ea NOTE XX ; Start 06/11/16 at 08:30 Rifaximin (Xifaxan) 550 mg BID PO Last administered on 06/24/16 17:25; Admin Dose 550 MG; Start 06/11/16 at 14:30 Pantoprazole (Protonix Iv) 40 mg BID@18 IV Last administered on 06/24/16 18 :01; Admin Dose 40 MG; Start 06/11/16 at 18:00 Furosemide (Lasix) 40 mg DAILY IV Last administered on 06/24/16 09:12; Admin Dose 40 MG; Start 06/12/16 at 13:00 Eye Lubricant (Artificial Tears Oph) 2 drop QID BOTH EYES Last administered on 06/24/16 17:43; Admin Dose 2 DROP; Start 06/12/16 at 13:00 Hydralazine HCl (Apresoline) 10 mg Q2H PRN IV SBP>170; Start 06/12/16 at 17:00 Metoprolol Tartrate (Lopressor) 5 mg Q6H PRN IV HR>130; Start 06/14/16 at 09:00 Metoprolol Tartrate (Lopressor) 25 mg BID PO Last administered on 06/24/16 17: 26; Admin Dose 25 MG; Start 06/14/16 at 21:00 Acetaminophen (Tylenol Liquid) 650 mg Q4H PRN NGT PAIN AND OR ELEVATED TEMP Last administered on 06/24/16 19:08; Admin Dose 650 MG; Start 06/17/16 at 12:30 Lactulose (Enulose) 30 gm DAILY PO Last administered on 06/23/16 10:02; Admin Dose 30 GM; Start 06/20/16 at 09:00 Amiodarone HCl 200 mg 200 mg DAILY NGT Last administered on 06/24/16 17:25; Admin Dose 200 MG; Start 06/24/16 at 09:00 Cefepime HCl 50 ml @ 100 mls/hr Q12 IVPB Last administered on 06/24/16 17:43 ; Admin Dose 100 MLS/HR; Start 06/24/16 at 17:30 Sodium Chloride (NS) 1,000 ml @ 70 mls/hr [id number] IV Last administered on 06/24 17:45; Admin Dose 70 MLS/HR; Start 06/24/16 at 17:30 ANGELES ODONNELL Jun 24, 2016 19:37
[2016-06-24] MEDS: DEXTROSE 5% 1,000 ML IV SCH (20:17)
[2016-06-24 20:49] LABS: AADO2 Arterial 304.7 mmHg (7.0-24.0); Allen Test ACCEPTAB; Arterial COHb 0.3 % (0.0-3.0); Arterial Fraction of Oxyhgb 96.2 % (93.0-99.0); Arterial HCO3 25.3 mmol/L (22.0-26.0); Arterial MetHb 0.5 % (0.0-1.5); Arterial Total Hemglobin 9.5 g/dl (12.0-18.0); MODE MASK - SIMPLE
[2016-06-24] MEDS: morphine 2 MG INJ IV PRN (23:24)
[2016-06-25] VITALS (12 sets, daily range): BP systolic 97–116; BP diastolic 54–61; PULSE 70–85; RESP 20–22
[2016-06-25] MEDS: morphine 2 MG INJ IV PRN (04:35)
[2016-06-25] MEDS: ALBUTEROL/IPRATROPIUM (NEB) 3 ML AMP HHN SCH ×5 (05:00→21:19)
[2016-06-25] MEDS: PANTOPRAZOLE 40 MG INJ IV SCH ×2 (06:01→19:04)
[2016-06-25] MEDS: LEVOTHYROXINE 50 MCG TAB PO SCH (06:01)
[2016-06-25 07:44] LABS: ADD SCAN DIFF NO
[2016-06-25 07:48] LABS: BASOPHIL # 0.1 10^3/ul (0.0-0.1); BASOPHILS % 1.1 % (0.0-2.0); EOSINOPHILS # 0.5 10^3/ul (0.0-0.5); EOSINOPHILS % 7.1 % (0.0-7.0); HEMATOCRIT 26.8 % (42.0-52.0); HEMOGLOBIN 7.9 g/dl (14.0-18.0); LYMPHOCYTES # 0.7 10^3/ul (0.8-2.9); LYMPHOCYTES % 11.2 % (15.0-51.0); MEAN CORPUSCULAR HEMOGLOBIN 27.2 pg (29.0-33.0); MEAN CORPUSCULAR HGB CONC 29.5 g/dl (32.0-37.0); MEAN CORPUSCULAR VOLUME 92.4 fl (82.0-101.0); MEAN PLATELET VOLUME 11.9 fl (7.4-10.4); MONOCYTE # 0.4 10^3/ul (0.3-0.9); MONOCYTES % 6.1 % (0.0-11.0); NEUTROPHIL # 4.9 10^3/ul (1.6-7.5); NEUTROPHILS % 73.7 % (39.0-77.0); PLATELET COUNT 199 10^3/UL (140-415); RED CELL DISTRIBUTION WIDTH 19.2 % (11.5-14.5); WHITE BLOOD COUNT 6.6 10^3/ul (4.8-10.8)
[2016-06-25 08:10] LABS: POTASSIUM 3.4 mmol/L (3.5-5.1)
[2016-06-25 08:13] LABS: CREATININE 1.4 mg/dl (0.61-1.24); PHOSPHORUS 3.5 mg/dl (2.5-4.9)
[2016-06-25] MEDS ORDERED: LACTULOSE 30ML CUP PO SCH (09:00)
[2016-06-25] MEDS: LACTULOSE 30ML CUP PO SCH ×4 (09:00→23:00)
[2016-06-25] MEDS: DUTASTERIDE 0.5 MG CAP PO SCH (09:00)
[2016-06-25] MEDS: ARTIFICIAL TEARS 15 ML OPH BOTH EYES SCH ×4 (10:20→21:00)
[2016-06-25] MEDS: RIFAXIMIN 550 MG TAB PO SCH ×2 (10:21→22:58)
[2016-06-25] MEDS: FINASTERIDE 5 MG TAB PO SCH (10:21)
[2016-06-25] MEDS: METOPROLOL 25 MG TAB PO SCH ×2 (10:21→22:59)
[2016-06-25] MEDS: AMIODARONE 200 MG TAB NGT SCH (10:21)
[2016-06-25] MEDS: FUROSEMIDE 40 MG INJ IV SCH (10:22)
[2016-06-25] MEDS: DEXTROSE 5% 1,000 ML IV SCH (10:24)
[2016-06-25] MEDS: CEFEPIME 1GM/50 ML (PMX) 50 ML IVPB SCH ×2 (11:45→23:04)
--- NOTE | 2016-06-25 13:55 | PN ---
Date/Time of Note Date/Time of Note DATE: 06/25/16 TIME: 13:51 Assessment/Plan VTE Prophylaxis VTE Prophylaxis Intervention: SCD's Lines/Catheters IV [facility] (from [facility] PICC Line Central line still needed: Yes (IV access ) Urinary Cath still in place: Yes Reason Cath still needed: other (indicate) (confused, encephalopathy ) Assessment/Plan Assessment/Plan 1. 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 Severe Anemia 2/2 #1-stable 3. Decompensated Alcoholic Liver Cirrhosis with Encephalopathy -Hep panel shows Hx of Exposure to Hep B but no active infection 4. Hypotension: 2/2 GI Bleed-resolved s/p Pressors 5. Low TSH 2/2 sick euthyroid 6. s/p VDRF now extubated 7. Fever, H/o FMF and H/o Gout- we will start him on Uloric 40mg po daily and Colchicine 0.6mg PO TID prn gout attack PPx-SCDs kcl 20meq IV x 1 dose now Patient failed swallow evaluation secondary to lethargy x 2- discussed with family Khoa- he agreed for G tube plan continue NG tube feeding Fever, H/o FMF and H/o Gout- we will start him on Uloric 40mg po daily and Colchicine 0.6mg PO TID prn gout attack s/p Neurology consult, EEG showed encephalopathy, Total time spent in patient evaluation and plan is more than 50 minutes and more than 50% time spent in educating patient/family at bedside. Subjective 24 Hr Interval Summary Free Text/Dictation pt had a low grade fever, BP stable, confused , still requiring NG tube feeding Exam/Review of Systems Vital Signs Vitals Vital Signs Date Time Temp Pulse Resp B/P Pulse Ox O2 Delivery O2 Flow Rate FiO2 06/25/16 12:23 76 06/25/16 12:04 98.7 20 116/61 94 06/25/16 08:14 Nasal Cannula 4.0 Intake and Output 06/24/16 06/24/16 06/25/16 15:00 23:00 07:00 Intake Total 1240 ml 820 ml Output Total 2200 ml 1400 ml Balance -960 ml -580 ml Results Result Diagram: 06/25/16 0624 06/25/16 0624 Results 24 hrs Laboratory Tests Test 06/24/16 14:20 06/24/16 15:20 06/24/16 19:41 06/24/16 19:59 Arterial Blood HCO3 25.4 25.3 Arterial Blood Base Excess 4.2 H 3.0 Arterial Blood Oxygen Saturation 97.7 97.0 Adelso Test ACCEPTAB ACCEPTAB Arterial Blood Gas Puncture Site Right Radial Left Radial Arterial Blood Carboxyhemoglobin 0.3 0.3 Arterial Blood Date Drawn 06/24/2016 2:40:21 PM 06/24/2016 8:35:55 PM Arterial Blood Methemoglobin 0.3 0.5 Arterial Blood pCO2 (Temp correct) 27.0 L 30.3 L Arterial Blood pH (Temp corrected) 7.591 *H 7.540 H Arterial Blood pO2 (Temp corrected) 102.0 H 97.0 H Blood Gas A-a O2 Differential 584.0 H 304.7 H Blood Gas Critical Value Read Back Robin SON RN Blood Gas Modality MASK - NRB MASK - SIMPLE Blood Gas Notified Time 06/24/2016 2:52:02 PM 06/24/2016 8:48:44 PM Blood Gas Notified Whom GIORGI SANTANA Blood Gas Specimen Source Blood arterial Blood arterial Blood Gas Temperature 37.0 37.0 FiO2 100.0 61.0 Oxyhemoglobin Percent 97.1 96.2 Total Hemoglobin 10.7 L 9.5 L Lactic Acid Level 2.8 H 2.3 H Test 06/24/16 20:20 06/25/16 06:04 06/25/16 06:24 Ammonia 55 H 10 # Lactic Acid Level 1.5 Anion Gap 16 Basophils # 0.1 Basophils % 1.1 Blood Urea Nitrogen 30 H Calcium Level 7.0 L Carbon Dioxide Level 25 Chloride Level 107 Creatinine 1.40 H Eosinophils # 0.5 Eosinophils % 7.1 H Glucose Level 367 #H Hematocrit 26.8 L Hemoglobin 7.9 L Lymphocytes # 0.7 L Lymphocytes % 11.2 L Magnesium Level 2.0 Mean Corpuscular Hemoglobin 27.2 L Mean Corpuscular Hemoglobin Concent 29.5 L Mean Corpuscular Volume 92.4 Mean Platelet Volume 11.9 H Monocytes # 0.4 Monocytes % 6.1 Neutrophils # 4.9 Neutrophils % 73.7 Nucleated Red Blood Cells # 0.0 Nucleated Red Blood Cells % 0.0 Phosphorus Level 3.5 Platelet Count 199 Potassium Level 3.4 L Red Blood Count 2.90 L Red Cell Distribution Width 19.2 H Sodium Level 145 H White Blood Count 6.6 Medications Medications Current Medications Ondansetron HCl (Zofran Inj) 4 mg Q6H PRN IV NAUSEA AND/OR VOMITING; Start 06/09 at 04:30 Dutasteride (Avodart) 0.5 mg AM PO Last administered on 06/24/16 17:26; Admin Dose 0.5 MG; Start 06/09/16 at 09:00 Finasteride (Proscar) 5 mg AM PO Last administered on 06/25/16 10:21; Admin Dose 5 MG; Start 06/09/16 at 09:00 Levothyroxine Sodium (Synthroid) 50 mcg DAILY@06 PO Last administered on 06:01; Admin Dose 50 MCG; Start 06/09/16 at 06:00 IV Flush (NS 10 ml) 10 ml PRN PRN IV IV PROTOCOL; Start 06/09/16 at 17:00 Miscellaneous Information 1 ea NOTE XX ; Start 06/11/16 at 08:30 Rifaximin (Xifaxan) 550 mg BID PO Last administered on 06/25/16 10:21; Admin Dose 550 MG; Start 06/11/16 at 14:30 Pantoprazole (Protonix Iv) 40 mg BID@06,18 IV Last administered on 06/25/16 06 :01; Admin Dose 40 MG; Start 06/11/16 at 18:00 Furosemide (Lasix) 40 mg DAILY IV Last administered on 06/25/16 10:22; Admin Dose 40 MG; Start 06/12/16 at 13:00 Eye Lubricant (Artificial Tears Oph) 2 drop QID BOTH EYES Last administered on 06/25/16 10:20; Admin Dose 2 DROP; Start 06/12/16 at 13:00 Hydralazine HCl (Apresoline) 10 mg Q2H PRN IV SBP>170; Start 06/12/16 at 17:00 Metoprolol Tartrate (Lopressor) 5 mg Q6H PRN IV HR>130; Start 06/14/16 at 09:00 Metoprolol Tartrate (Lopressor) 25 mg BID PO Last administered on 06/25/16 10: 21; Admin Dose 25 MG; Start 06/14/16 at 21:00 Acetaminophen (Tylenol Liquid) 650 mg Q4H PRN NGT PAIN AND OR ELEVATED TEMP Last administered on 06/24/16 23:24; Admin Dose 650 MG; Start 06/17/16 at 12:30 Amiodarone HCl 200 mg 200 mg DAILY NGT Last administered on 06/25/16 10:21; Admin Dose 200 MG; Start 06/24/16 at 09:00 Cefepime HCl 50 ml @ 100 mls/hr Q12 IVPB Last administered on 06/25/16 11:45 ; Admin Dose 100 MLS/HR; Start 06/24/16 at 17:30 Dextrose (D5W) 1,000 ml @ 70 mls/hr [id number] IV Last administered on 06/25/16 10:24; Admin Dose 70 MLS/HR; Start 06/24/16 at 20:00 Lactulose (Enulose) 30 gm QID PO Last administered on 06/24/16 22:29; Admin Dose 30 GM; Start 06/24/16 at 21:30 Febuxostat (Uloric) 40 mg DAILY PO ; Start 06/25/16 at 14:00; Status UNV Colchicine (Colchicine) 0.6 mg ONCE ONCE PO ; Start 06/25/16 at 14:00; Stop at 14:01; Status UNV Colchicine (Colchicine) 0.6 mg TID PRN PO gout pain ; Start 06/25/16 at 14:00; Status UNV Lorazepam (Ativan) 1 mg Q6H PRN IV ANXIETY; Start 06/25/16 at 18:30; Status UNV Morphine Sulfate (morphine) 2 mg Q6H PRN IV PAIN LEVEL 7-10; Start 06/25/16 at 18:30; Status UNV MAURY BENITEZ MD Jun 25, 2016 13:55
--- NOTE | 2016-06-25 14:06 | CONS ---
Date/Time of Note Date/Time of Note DATE: 06/25/16 TIME: 14:04 Assessment/Plan Assessment/Plan Chief Complaint/Hosp Course IMPRESSION: 1. Paroxysmal atrial fibrillation/atrial flutter, now back in sinus rhythm and remains thus 2. Abnormal electrocardiogram. Assess for acute coronary syndrome. 3. Hypotension, now improved. 4. Gastrointestinal bleed. 5. Cirrhosis. 6. Encephalopathy-ongoing 7. Anemia, severe, status post transfusions. 8. Hypernatremia. 9. Coagulopathy 10.Fever 11.PNA 12.ARF Recc: -Tele -Continue amiodarone PO at current dose -Continue BB as tolerated -No asa/systemic anti-coag secondary to anemia/GIB -Follow MS closely -Follow Hgb closely -Free water for elevated na -F/U cx data and continue abx's -Hold lasix given development of ARF Problems: Consultation Date/Type/Reason Admit Date/Time Jun 09, 2016 at 04:01 Initial Consult Date 06/09/16 Type of Consultation: Cardiology Reason for Consultation PAF/AFL Referring Provider: MAURY BENITEZ MD Exam/Review of Systems Vital Signs Vitals Vital Signs Date Time Temp Pulse Resp B/P Pulse Ox O2 Delivery O2 Flow Rate FiO2 06/25/16 12:23 76 06/25/16 12:04 98.7 20 116/61 94 06/25/16 08:14 Nasal Cannula 4.0 Intake and Output 06/24/16 06/24/16 06/25/16 15:00 23:00 07:00 Intake Total 1240 ml 820 ml Output Total 2200 ml 1400 ml Balance -960 ml -580 ml Exam Review of Systems: CONSTITUTIONAL: No fevers, chills. PULMONARY: No sob CARDIOVASCULAR: No chest pain/palpitations GASTROINTESTINAL: No nausea/vomiting. GENITOURINARY: No hematuria/dysuria. MUSCULOSKELETAL: No myagias/arthalgias. PSYCHIATRIC: The patient denies depression. NEUROLOGIC: confused/lethargic Constitutional: other (sleeping) Psych: confusion Head: normocephalic Neck: jvd (7 cm water), supple Respiratory: other (upper airway rhochi) Cardiovascular: regular rate and rhythm Gastrointestinal: non-tender, soft Musculoskeletal: muscle tone (normal) Extremities: edema (none) Neurological: confused, lethargic Results Result Diagram: 06/25/16 0624 06/25/16 0624 Results 24 hrs Laboratory Tests Test 06/24/16 14:20 06/24/16 15:20 06/24/16 19:41 06/24/16 19:59 Arterial Blood HCO3 25.4 25.3 Arterial Blood Base Excess 4.2 H 3.0 Arterial Blood Oxygen Saturation 97.7 97.0 Adelso Test ACCEPTAB ACCEPTAB Arterial Blood Gas Puncture Site Right Radial Left Radial Arterial Blood Carboxyhemoglobin 0.3 0.3 Arterial Blood Date Drawn 06/24/2016 2:40:21 PM 06/24/2016 8:35:55 PM Arterial Blood Methemoglobin 0.3 0.5 Arterial Blood pCO2 (Temp correct) 27.0 L 30.3 L Arterial Blood pH (Temp corrected) 7.591 *H 7.540 H Arterial Blood pO2 (Temp corrected) 102.0 H 97.0 H Blood Gas A-a O2 Differential 584.0 H 304.7 H Blood Gas Critical Value Read Back Robin SON RN Blood Gas Modality MASK - NRB MASK - SIMPLE Blood Gas Notified Time 06/24/2016 2:52:02 PM 06/24/2016 8:48:44 PM Blood Gas Notified Whom GIORGI SANTANA Blood Gas Specimen Source Blood arterial Blood arterial Blood Gas Temperature 37.0 37.0 FiO2 100.0 61.0 Oxyhemoglobin Percent 97.1 96.2 Total Hemoglobin 10.7 L 9.5 L Lactic Acid Level 2.8 H 2.3 H Test 06/24/16 20:20 06/25/16 06:04 06/25/16 06:24 Ammonia 55 H 10 # Lactic Acid Level 1.5 Anion Gap 16 Basophils # 0.1 Basophils % 1.1 Blood Urea Nitrogen 30 H Calcium Level 7.0 L Carbon Dioxide Level 25 Chloride Level 107 Creatinine 1.40 H Eosinophils # 0.5 Eosinophils % 7.1 H Glucose Level 367 #H Hematocrit 26.8 L Hemoglobin 7.9 L Lymphocytes # 0.7 L Lymphocytes % 11.2 L Magnesium Level 2.0 Mean Corpuscular Hemoglobin 27.2 L Mean Corpuscular Hemoglobin Concent 29.5 L Mean Corpuscular Volume 92.4 Mean Platelet Volume 11.9 H Monocytes # 0.4 Monocytes % 6.1 Neutrophils # 4.9 Neutrophils % 73.7 Nucleated Red Blood Cells # 0.0 Nucleated Red Blood Cells % 0.0 Phosphorus Level 3.5 Platelet Count 199 Potassium Level 3.4 L Red Blood Count 2.90 L Red Cell Distribution Width 19.2 H Sodium Level 145 H White Blood Count 6.6 Medications Medications Current Medications Ondansetron HCl (Zofran Inj) 4 mg Q6H PRN IV NAUSEA AND/OR VOMITING; Start 06/09 at 04:30 Dutasteride (Avodart) 0.5 mg AM PO Last administered on 06/24/16 17:26; Admin Dose 0.5 MG; Start 06/09/16 at 09:00 Finasteride (Proscar) 5 mg AM PO Last administered on 06/25/16 10:21; Admin Dose 5 MG; Start 06/09/16 at 09:00 Levothyroxine Sodium (Synthroid) 50 mcg DAILY@06 PO Last administered on 06:01; Admin Dose 50 MCG; Start 06/09/16 at 06:00 IV Flush (NS 10 ml) 10 ml PRN PRN IV IV PROTOCOL; Start 06/09/16 at 17:00 Miscellaneous Information 1 ea NOTE XX ; Start 06/11/16 at 08:30 Rifaximin (Xifaxan) 550 mg BID PO Last administered on 06/25/16 10:21; Admin Dose 550 MG; Start 06/11/16 at 14:30 Pantoprazole (Protonix Iv) 40 mg BID@06,18 IV Last administered on 06/25/16 06 :01; Admin Dose 40 MG; Start 06/11/16 at 18:00 Furosemide (Lasix) 40 mg DAILY IV Last administered on 06/25/16 10:22; Admin Dose 40 MG; Start 06/12/16 at 13:00 Eye Lubricant (Artificial Tears Oph) 2 drop QID BOTH EYES Last administered on 06/25/16 10:20; Admin Dose 2 DROP; Start 06/12/16 at 13:00 Hydralazine HCl (Apresoline) 10 mg Q2H PRN IV SBP>170; Start 06/12/16 at 17:00 Metoprolol Tartrate (Lopressor) 5 mg Q6H PRN IV HR>130; Start 06/14/16 at 09:00 Metoprolol Tartrate (Lopressor) 25 mg BID PO Last administered on 06/25/16 10: 21; Admin Dose 25 MG; Start 06/14/16 at 21:00 Acetaminophen (Tylenol Liquid) 650 mg Q4H PRN NGT PAIN AND OR ELEVATED TEMP Last administered on 06/24/16 23:24; Admin Dose 650 MG; Start 06/17/16 at 12:30 Amiodarone HCl 200 mg 200 mg DAILY NGT Last administered on 06/25/16 10:21; Admin Dose 200 MG; Start 06/24/16 at 09:00 Cefepime HCl 50 ml @ 100 mls/hr Q12 IVPB Last administered on 06/25/16 11:45 ; Admin Dose 100 MLS/HR; Start 06/24/16 at 17:30 Dextrose (D5W) 1,000 ml @ 70 mls/hr [id number] IV Last administered on 06/25/16 10:24; Admin Dose 70 MLS/HR; Start 06/24/16 at 20:00 Lactulose (Enulose) 30 gm QID PO Last administered on 06/24/16 22:29; Admin Dose 30 GM; Start 06/24/16 at 21:30 Febuxostat (Uloric) 40 mg DAILY PO ; Start 06/25/16 at 15:00 Colchicine (Colchicine) 0.6 mg ONCE ONCE PO ; Start 06/25/16 at 15:00; Stop at 15:01 Colchicine (Colchicine) 0.6 mg TID PRN PO gout pain ; Start 06/25/16 at 21:00 Lorazepam (Ativan) 1 mg Q6H PRN IV ANXIETY; Start 06/25/16 at 18:30 Morphine Sulfate 2 mg 2 mg Q6H PRN IV PAIN LEVEL 7-10; Start 06/25/16 at 18:30 Potassium Chloride/Sodium Chloride (KCl/NS) 110 ml @ 55 mls/hr ONCE ONCE IVPB ; Start 06/25/16 at 15:30; Stop 06/25/16 at 17:29 ANGELES ODONNELL 17, 2017 14:05
[2016-06-25] MEDS: FEBUXOSTAT 40 MG TABLET PO SCH (14:26)
[2016-06-25] MEDS ORDERED: COLCHICINE 0.6 MG TAB PO ONE (15:00)
[2016-06-25] MEDS ORDERED: POTASSIUM CHLORIDE 20 MEQ in SOD CHLORIDE 0.9% 100 ML IVPB ONE (15:30)
--- NOTE | 2016-06-25 17:59 | RADRPT ---
PROCEDURE: CT Brain without contrast. CLINICAL INDICATION: Right side weakness. TECHNIQUE: A CT of the brain without contrast was performed utilizing axial sections from the skul l base through the vertex. The patient was scanned without intravenous contrast enhancement. [place] l and coronal reformatted images were obtained using the data from the axial images. Total exam DLP is 720.23 mGy-cm. CTDIvol is 42.43 mGy. One or more of the following dose reduction techniques we re used: Automated exposure control, adjustment of the mA and/or kV according to patient size, use o f iterative reconstruction technique. COMPARISON: CT scan of the brain dated 06/20/2016 which demonstrated atrophy, microangiopathic isc hemic change, atherosclerosis, and no other abnormality. FINDINGS: There is normal cortés-white matter differentiation. There is enlargement of the ventricles and subarachnoid spaces consistent with atrophy. There is decreased attenuation of the periventricular white matter consistent with microangiopathic ischemic change. There is no intracranial hemorrhage or space-occupying lesion. There are vascular calcifications consistent with atherosclerosis. There is no skull fracture or lytic lesion. IMPRESSION: 1. Atrophy. 2. Microangiopathic ischemic change. 3. Atherosclerosis. 4. No intracranial hemorrhage. 5. Otherwise unremarkable noncontrast CT scan of the brain. 6. No change from 06/20/2016. RPTAT: QQ .Emmanuel Murillo MD, Date Time Electronically viewed and signed by .Emmanuel Murillo MD, on 06/25/2016 17:59 .R/
--- NOTE | 2016-06-25 22:47 | CONS ---
Date/Time of Note Date/Time of Note DATE: 06/25/16 TIME: 22:47 Assessment/Plan Assessment/Plan Chief Complaint/Hosp Course Anemia - COMPLEX, MULTIFACTORIAL WITH COMPONENT ACD, ACUTE BLOOD LOSS AND SEVERE IRON DEFICIENCY IN THE PAST * Esophageal variceal bleeding/post EVL * CONT TO MONITOR BLOOD COUNT CLOSELY * OBSERVE FOR BLEEDING AND HEMOLYSIS * PRBC NEEDED Alcoholic cirrhosis * Post variceal bleeding/post EVL * Portal encephalopathy * Ascites * Unsafe swallowing/failed swallow eval/high risk for aspiration * Family now agreeable to EGD plus PEG. Will need to have paracenteses prior to procedure. Family was informed of increased risk given comorbidities Coagulopathy VIT K MAY NEEDS FFP PRIOR TO PROCEDURE Problems: Consultation Date/Type/Reason Admit Date/Time Jun 09, 2016 at 04:01 Initial Consult Date 06/09/16 [facility] Referring Provider: MAURY BENITEZ MD 24 HR Interval Summary Free Text/Dictation pt had a low grade fever, BP stable, confused , still requiring NG tube feeding Exam/Review of Systems Vital Signs Vitals Vital Signs Date Time Temp Pulse Resp B/P Pulse Ox O2 Delivery O2 Flow Rate FiO2 06/25/16 21:19 4.0 06/25/16 21:19 77 20 94 Nasal Cannula 06/25/16 20:00 100.8 106/56 Intake and Output 06/24/16 06/24/16 06/25/16 15:00 23:00 07:00 Intake Total 1240 ml 820 ml Output Total 2200 ml 1400 ml Balance -960 ml -580 ml Exam General: WN/WD/NAD, AOx 0-1 HEENT: Unicetric/atraumatic/EOMI (does not follow commands) NECK: JVD elevated, no thyromegaly Lymph: no lymphadenopathy HEART: regular with no S3, II/ systolic murmur at apex LUNGS: Coarse sounds ABD: soft, NT, ND, +BS : Intact Neuro: non focal SKIN: chronic changes EXT: trace edema Results Result Diagram: 06/25/1662306/25/16 0624 Results 24 hrs Laboratory Tests Test 06/25/16 06:04 06/25/16 06:24 Lactic Acid Level 1.5 Ammonia 10 # Anion Gap 16 Basophils # 0.1 Basophils % 1.1 Blood Urea Nitrogen 30 H Calcium Level 7.0 L Carbon Dioxide Level 25 Chloride Level 107 Creatinine 1.40 H Eosinophils # 0.5 Eosinophils % 7.1 H Glucose Level 367 #H Hematocrit 26.8 L Hemoglobin 7.9 L Lymphocytes # 0.7 L Lymphocytes % 11.2 L Magnesium Level 2.0 Mean Corpuscular Hemoglobin 27.2 L Mean Corpuscular Hemoglobin Concent 29.5 L Mean Corpuscular Volume 92.4 Mean Platelet Volume 11.9 H Monocytes # 0.4 Monocytes % 6.1 Neutrophils # 4.9 Neutrophils % 73.7 Nucleated Red Blood Cells # 0.0 Nucleated Red Blood Cells % 0.0 Phosphorus Level 3.5 Platelet Count 199 Potassium Level 3.4 L Red Blood Count 2.90 L Red Cell Distribution Width 19.2 H Sodium Level 145 H White Blood Count 6.6 Medications Medications Current Medications Ondansetron HCl (Zofran Inj) 4 mg Q6H PRN IV NAUSEA AND/OR VOMITING; Start 06/09 at 04:30 Dutasteride (Avodart) 0.5 mg AM PO Last administered on 06/24/16 17:26; Admin Dose 0.5 MG; Start 06/09/16 at 09:00 Finasteride (Proscar) 5 mg AM PO Last administered on 06/25/16 10:21; Admin Dose 5 MG; Start 06/09/16 at 09:00 Levothyroxine Sodium (Synthroid) 50 mcg DAILY@06 PO Last administered on 06:01; Admin Dose 50 MCG; Start 06/09/16 at 06:00 IV Flush (NS 10 ml) 10 ml PRN PRN IV IV PROTOCOL; Start 06/09/16 at 17:00 Miscellaneous Information 1 ea NOTE XX ; Start 06/11/16 at 08:30 Rifaximin (Xifaxan) 550 mg BID PO Last administered on 06/25/16 10:21; Admin Dose 550 MG; Start 06/11/16 at 14:30 Pantoprazole (Protonix Iv) 40 mg BID@06,18 IV Last administered on 06/25/16 19 :04; Admin Dose 40 MG; Start 06/11/16 at 18:00 Eye Lubricant (Artificial Tears Oph) 2 drop QID BOTH EYES Last administered on 06/25/16 19:04; Admin Dose 2 DROP; Start 06/12/16 at 13:00 Hydralazine HCl (Apresoline) 10 mg Q2H PRN IV SBP>170; Start 06/12/16 at 17:00 Metoprolol Tartrate (Lopressor) 5 mg Q6H PRN IV HR>130; Start 06/14/16 at 09:00 Metoprolol Tartrate (Lopressor) 25 mg BID PO Last administered on 06/25/16 10: 21; Admin Dose 25 MG; Start 06/14/16 at 21:00 Acetaminophen (Tylenol Liquid) 650 mg Q4H PRN NGT PAIN AND OR ELEVATED TEMP Last administered on 06/24/16 23:24; Admin Dose 650 MG; Start 06/17/16 at 12:30 Amiodarone HCl 200 mg 200 mg DAILY NGT Last administered on 06/25/16 10:21; Admin Dose 200 MG; Start 06/24/16 at 09:00 Cefepime HCl 50 ml @ 100 mls/hr Q12 IVPB Last administered on 06/25/16 11:45 ; Admin Dose 100 MLS/HR; Start 06/24/16 at 17:30 Dextrose (D5W) 1,000 ml @ 70 mls/hr [id number] IV Last administered on 06/25/16 10:24; Admin Dose 70 MLS/HR; Start 06/24/16 at 20:00 Lactulose (Enulose) 30 gm QID PO Last administered on 06/25/16 14:26; Admin Dose 30 GM; Start 06/24/16 at 21:30 Febuxostat (Uloric) 40 mg DAILY PO Last administered on 06/25/16 14:26; Admin Dose 40 MG; Start 06/25/16 at 15:00 Colchicine (Colchicine) 0.6 mg TID PRN PO gout pain ; Start 06/25/16 at 21:00 Lorazepam (Ativan) 1 mg Q6H PRN IV ANXIETY; Start 06/25/16 at 18:30 Morphine Sulfate (morphine) 2 mg Q6H PRN IV PAIN LEVEL 7-10; Start 06/25/16 at 18:30 FAYE RUSHING MD Jun 25, 2016 22:47
[2016-06-26] VITALS (16 sets, daily range): BP systolic 102–113; BP diastolic 50–66; PULSE 83–184; RESP 17–20
[2016-06-26] MEDS: DEXTROSE 5% 1,000 ML IV SCH ×2 (00:36→15:26)
[2016-06-26] MEDS: ALBUTEROL/IPRATROPIUM (NEB) 3 ML AMP HHN SCH ×6 (01:27→20:40)
[2016-06-26] MEDS: LEVOTHYROXINE 50 MCG TAB PO SCH (05:34)
[2016-06-26] MEDS: ACETAMINOPHEN 650MG/20.3ML CUP NGT PRN ×3 (05:34→20:45)
[2016-06-26] MEDS: PANTOPRAZOLE 40 MG INJ IV SCH ×2 (05:34→17:31)
[2016-06-26 08:16] LABS: INR 1.48; PT RATIO 1.4
[2016-06-26 08:17] LABS: PARTIAL THROMBOPLASTIN TIME 33.1 Sec (25.0-35.0)
[2016-06-26 08:22] LABS: POTASSIUM 3.5 mmol/L (3.5-5.1)
[2016-06-26 08:25] LABS: CREATININE 1.43 mg/dl (0.61-1.24)
[2016-06-26 08:26] LABS: CALCIUM 7.6 mg/dl (8.4-10.2)
[2016-06-26] MEDS: METOPROLOL 25 MG TAB PO SCH ×2 (09:00→20:46)
[2016-06-26] MEDS: AMIODARONE 200 MG TAB NGT SCH ×2 (09:00→11:14)
[2016-06-26] MEDS: CEFEPIME 1GM/50 ML (PMX) 50 ML IVPB SCH (10:36)
[2016-06-26] MEDS: LACTULOSE 30ML CUP PO SCH ×4 (10:36→20:44)
[2016-06-26] MEDS: FEBUXOSTAT 40 MG TABLET PO SCH (10:39)
[2016-06-26] MEDS: FINASTERIDE 5 MG TAB PO SCH (10:39)
[2016-06-26] MEDS: RIFAXIMIN 550 MG TAB PO SCH ×2 (10:40→20:46)
[2016-06-26] MEDS: DUTASTERIDE 0.5 MG CAP PO SCH (10:40)
[2016-06-26] MEDS: ARTIFICIAL TEARS 15 ML OPH BOTH EYES SCH ×4 (10:42→20:43)
[2016-06-26] MEDS: COLCHICINE 0.6 MG TAB PO PRN ×2 (11:14→17:41)
[2016-06-26] MEDS: METOPROLOL 5 MG INJ IV PRN ×2 (11:55→17:40)
--- NOTE | 2016-06-26 13:29 | PN ---
Date/Time of Note Date/Time of Note DATE: 06/26/16 TIME: 13:25 Assessment/Plan VTE Prophylaxis VTE Prophylaxis Intervention: SCD's Lines/Catheters IV Catheter Type (from Nrs): PICC Line Central line still needed: Yes (IV access ) Urinary Cath still in place: Yes Reason Cath still needed: urinary retention, other (indicate) (confused, lethargic ) Assessment/Plan Assessment/Plan 1. 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 Severe Anemia 2/2 #1-stable 3. Decompensated Alcoholic Liver Cirrhosis with Encephalopathy -Hep panel shows Hx of Exposure to Hep B but no active infection 4. Hypotension: 2/2 GI Bleed-resolved s/p Pressors 5. Low TSH 2/2 sick euthyroid 6. s/p VDRF now extubated 7. Fever, H/o FMF and H/o Gout- we will start him on Uloric 40mg po daily and Colchicine 0.6mg PO TID prn gout attack PPx-SCDs repalce electrolytes as needed, Pt had a CT head yesterday-negative for acute findings Patient failed swallow evaluation secondary to lethargy x 2- discussed with family Khoa again- he agreed for G tube plan continue NG tube feeding Fever, H/o FMF and H/o Gout- we will start him on Uloric 40mg po daily and Colchicine 0.6mg PO TID prn gout attack, will request official ID consultation s/p Neurology consult, EEG showed encephalopathy, Total time spent in patient evaluation and plan is more than 50 minutes and more than 50% time spent in educating patient/family at bedside. Exam/Review of Systems Vital Signs Vitals Vital Signs Date Time Temp Pulse Resp B/P Pulse Ox O2 Delivery O2 Flow Rate FiO2 06/26/16 12:33 99 06/26/16 11:38 102.1 18 105/58 95 06/26/16 09:18 4.0 06/26/16 09:18 Nasal Cannula Intake and Output 06/25/16 06/25/16 06/26/16 15:00 23:00 07:00 Intake Total 817 ml 1000 ml Output Total 800 ml 1400 ml 900 ml Balance -800 ml -583 ml 100 ml Exam Constitutional: more alert but still intermittently confused Psych: confusion Head: atraumatic, normocephalic Eyes: nl conjunctiva, nl lids ENMT: nl external ears & nose, nl lips & teeth, nl nasal mucosa & septum Neck: non-tender, supple Respiratory: clear to auscultation, normal air movement Cardiovascular: nl pulses, regular rate and rhythm Gastrointestinal: bowel sounds, non-tender, soft + nava catheter Results Result Diagram: 06/25/16 0624 06/26/16 0605 Results 24 hrs Laboratory Tests Test 06/26/16 06:05 Activated Partial Thromboplast Time 33.1 Anion Gap 21 H Blood Urea Nitrogen 34 H Calcium Level 7.6 L Carbon Dioxide Level 20 L Chloride Level 115 H Creatinine 1.43 H Glucose Level 133 # INR International Normalized Ratio 1.48 Potassium Level 3.5 Prothrombin Time 18.0 H Prothrombin Time Ratio 1.4 Sodium Level 152 H Medications Medications Current Medications Ondansetron HCl (Zofran Inj) 4 mg Q6H PRN IV NAUSEA AND/OR VOMITING; Start 06/09 at 04:30 Dutasteride (Avodart) 0.5 mg AM PO Last administered on 06/26/16 10:40; Admin Dose 0.5 MG; Start 06/09/16 at 09:00 Finasteride (Proscar) 5 mg AM PO Last administered on 06/26/16 10:39; Admin Dose 5 MG; Start 06/09/16 at 09:00 Levothyroxine Sodium (Synthroid) 50 mcg DAILY@06 PO Last administered on 05:34; Admin Dose 50 MCG; Start 06/09/16 at 06:00 IV Flush (NS 10 ml) 10 ml PRN PRN IV IV PROTOCOL; Start 06/09/16 at 17:00 Miscellaneous Information 1 ea NOTE XX ; Start 06/11/16 at 08:30 Rifaximin (Xifaxan) 550 mg BID PO Last administered on 06/26/16 10:40; Admin Dose 550 MG; Start 06/11/16 at 14:30 Pantoprazole (Protonix Iv) 40 mg BID@,18 IV Last administered on 06/26/16 05 :34; Admin Dose 40 MG; Start 06/11/16 at 18:00 Eye Lubricant (Artificial Tears Oph) 2 drop QID BOTH EYES Last administered on 06/26/16 10:42; Admin Dose 2 DROP; Start 06/12/16 at 13:00 Hydralazine HCl (Apresoline) 10 mg Q2H PRN IV SBP>170; Start 06/12/16 at 17:00 Metoprolol Tartrate (Lopressor) 5 mg Q6H PRN IV HR>130 Last administered on 11:55; Admin Dose 5 MG; Start 06/14/16 at 09:00 Metoprolol Tartrate (Lopressor) 25 mg BID PO Last administered on 06/25/16 22: 59; Admin Dose 25 MG; Start 06/14/16 at 21:00 Acetaminophen (Tylenol Liquid) 650 mg Q4H PRN NGT PAIN AND OR ELEVATED TEMP Last administered on 06/26/16 11:13; Admin Dose 650 MG; Start 06/17/16 at 12:30 Amiodarone HCl 200 mg 200 mg DAILY NGT Last administered on 06/26/16 11:14; Admin Dose 200 MG; Start 06/24/16 at 09:00 Cefepime HCl 50 ml @ 100 mls/hr Q12 IVPB Last administered on 06/26/16 10:36 ; Admin Dose 100 MLS/HR; Start 06/24/16 at 17:30 Dextrose (D5W) 1,000 ml @ 70 mls/hr [id number] IV Last administered on 06/26/16 00:36; Admin Dose 70 MLS/HR; Start 06/24/16 at 20:00 Lactulose (Enulose) 30 gm QID PO Last administered on 06/26/16 10:36; Admin Dose 30 GM; Start 06/24/16 at 21:30 Febuxostat (Uloric) 40 mg DAILY PO Last administered on 06/26/16 10:39; Admin Dose 40 MG; Start 06/25/16 at 15:00 Colchicine (Colchicine) 0.6 mg TID PRN PO gout pain Last administered on 11:14; Admin Dose 0.6 MG; Start 06/25/16 at 21:00 Lorazepam (Ativan) 1 mg Q6H PRN IV ANXIETY; Start 06/25/16 at 18:30 Morphine Sulfate (morphine) 2 mg Q6H PRN IV PAIN LEVEL 7-10; Start 06/25/16 at 18:30 MAURY BENITEZ MD Jun 26, 2016 13:29
--- NOTE | 2016-06-26 14:42 | CONS ---
Date/Time of Note Date/Time of Note DATE: 06/26/16 TIME: 14:40 Assessment/Plan Assessment/Plan Additional Assessment/Plan 1. Paroxysmal atrial fibrillation/atrial flutter, now back in sinus rhythm and remains thus - now in sinus 2. REC NSVT - add BB as toleated - BEA stable now 3. Hypotension, now improved- on Rx - better overall. 4. Gastrointestinal bleed. 5. Cirrhosis- avoid hepatotoxic meds 6. Encephalopathy-ongoing 7. Anemia, severe, status post transfusions. 8. Hypernatremia. 9. Coagulopathy 10.Fever 11.PNA- on anti-Bx, con't med rx 12.ARF Consultation Date/Type/Reason Admit Date/Time Jun 09, 2016 at 04:01 Initial Consult Date 06/09/16 Type of Consultation: [facility] Referring Provider: MAURY BENITEZ MD 24 HR Interval Summary Free Text/Dictation No acute events -NSVT noted - med rx for now - poor invasive candidate. ROS: No fever, no chills, no nausea, no vomiting, no diarrhea/constipation No recent weight changes No chest pain, no PND, no orthopnea No dizziness, blurred vision No thirst, no heat or cold intolerance Exam/Review of Systems Vital Signs Vitals Vital Signs Date Time Temp Pulse Resp B/P Pulse Ox O2 Delivery O2 Flow Rate FiO2 06/26/16 13:01 92 20 96 Nasal Cannula 4.0 06/26/16 11:38 102.1 105/58 Intake and Output 06/25/16 06/25/16 06/26/16 15:00 23:00 07:00 Intake Total 817 ml 1000 ml Output Total 800 ml 1400 ml 900 ml Balance -800 ml -583 ml 100 ml Exam General: WN/WD/NAD, AOx 0-1 HEENT: Unicetric/atraumatic/EOMI (does not follow commands) NECK: JVD elevated, no thyromegaly Lymph: no lymphadenopathy HEART: regular with no S3, II/ systolic murmur at apex LUNGS: Coarse sounds ABD: soft, NT, ND, +BS : Intact Neuro: non focal SKIN: chronic changes EXT: trace edema Results Result Diagram: 06/25/16 0624 06/26/16 0605 Results 24 hrs Laboratory Tests Test 06/26/16 06:05 Activated Partial Thromboplast Time 33.1 Anion Gap 21 H Blood Urea Nitrogen 34 H Calcium Level 7.6 L Carbon Dioxide Level 20 L Chloride Level 115 H Creatinine 1.43 H Glucose Level 133 # INR International Normalized Ratio 1.48 Potassium Level 3.5 Prothrombin Time 18.0 H Prothrombin Time Ratio 1.4 Sodium Level 152 H Medications Medications Current Medications Ondansetron HCl (Zofran Inj) 4 mg Q6H PRN IV NAUSEA AND/OR VOMITING; Start 06/09 at 04:30 Dutasteride (Avodart) 0.5 mg AM PO Last administered on 06/26/16 10:40; Admin Dose 0.5 MG; Start 06/09/16 at 09:00 Finasteride (Proscar) 5 mg AM PO Last administered on 06/26/16 10:39; Admin Dose 5 MG; Start 06/09/16 at 09:00 Levothyroxine Sodium (Synthroid) 50 mcg DAILY@06 PO Last administered on 05:34; Admin Dose 50 MCG; Start 06/09/16 at 06:00 IV Flush (NS 10 ml) 10 ml PRN PRN IV IV PROTOCOL; Start 06/09/16 at 17:00 Miscellaneous Information 1 ea NOTE XX ; Start 06/11/16 at 08:30 Rifaximin (Xifaxan) 550 mg BID PO Last administered on 06/26/16 10:40; Admin Dose 550 MG; Start 06/11/16 at 14:30 Pantoprazole (Protonix Iv) 40 mg BID@,18 IV Last administered on 06/26/16 05 :34; Admin Dose 40 MG; Start 06/11/16 at 18:00 Eye Lubricant (Artificial Tears Oph) 2 drop QID BOTH EYES Last administered on 06/26/16 13:00; Admin Dose 2 DROP; Start 06/12/16 at 13:00 Hydralazine HCl (Apresoline) 10 mg Q2H PRN IV SBP>170; Start 06/12/16 at 17:00 Metoprolol Tartrate (Lopressor) 5 mg Q6H PRN IV HR>130 Last administered on 11:55; Admin Dose 5 MG; Start 06/14/16 at 09:00 Metoprolol Tartrate (Lopressor) 25 mg BID PO Last administered on 06/25/16 22: 59; Admin Dose 25 MG; Start 06/14/16 at 21:00 Acetaminophen (Tylenol Liquid) 650 mg Q4H PRN NGT PAIN AND OR ELEVATED TEMP Last administered on 06/26/16 11:13; Admin Dose 650 MG; Start 06/17/16 at 12:30 Amiodarone HCl 200 mg 200 mg DAILY NGT Last administered on 06/26/16 11:14; Admin Dose 200 MG; Start 06/24/16 at 09:00 Cefepime HCl 50 ml @ 100 mls/hr Q12 IVPB Last administered on 06/26/16 10:36 ; Admin Dose 100 MLS/HR; Start 06/24/16 at 17:30 Dextrose (D5W) 1,000 ml @ 50 mls/hr Q20H IV Last administered on 06/26/16 00: 36; Admin Dose 70 MLS/HR; Start 06/24/16 at 20:00 Lactulose (Enulose) 30 gm QID PO Last administered on 06/26/16 13:00; Admin Dose 30 GM; Start 06/24/16 at 21:30 Febuxostat (Uloric) 40 mg DAILY PO Last administered on 06/26/16 10:39; Admin Dose 40 MG; Start 06/25/16 at 15:00 Colchicine (Colchicine) 0.6 mg TID PRN PO gout pain Last administered on 11:14; Admin Dose 0.6 MG; Start 06/25/16 at 21:00 Lorazepam (Ativan) 1 mg Q6H PRN IV ANXIETY; Start 06/25/16 at 18:30 Morphine Sulfate (morphine) 2 mg Q6H PRN IV PAIN LEVEL 7-10; Start 06/25/16 at 18:30 BLADIMIR DEAN MD Jun 26, 2016 14:42
--- NOTE | 2016-06-26 14:50 | PN ---
Date/Time of Note Date/Time of Note DATE: 06/26/16 TIME: 14:40 Assessment/Plan VTE Prophylaxis VTE Prophylaxis Intervention: contraindicated Lines/Catheters IV Catheter Type (from Nrs): PICC Line Central line still needed: Yes Urinary Cath still in place: Yes Reason Cath still needed: other (indicate) (PCP choice) Assessment/Plan Assessment/Plan Assessment: * Esophageal variceal bleeding/post EVL * Anemia secondary to above * Alcoholic cirrhosis * Post variceal bleeding/post EVL * Portal encephalopathy * Ascites * Coagulopathy * Unsafe swallowing/failed swallow eval/high risk for aspiration * Family now agreeable to EGD plus PEG. Will need to have paracenteses prior to procedure. Family was informed of increased risk given comorbidities Plan: * Paracenteses early Tuesday * Correct coagulopathy * Possible EGD with PEG on Tuesday if conditions appropriate * Patient's granddaughter has been informed of the procedure. Indications, alternatives, risks, benefits, alternatives. Agreeable to proceed Subjective 24 Hr Interval Summary Free Text/Dictation Course reviewed with nursing staff Called back as family now agreeable to EGD with PEG Patient remains confused, currently receiving nasogastric feedings I explained to the family the need for paracenteses, correction of coagulopathy Also even with this management he is risk is higher than standard risk of EGD PEG I will reevaluate on Tuesday prior to procedure to make final decision. Exam/Review of Systems Vital Signs Vitals Vital Signs Date Time Temp Pulse Resp B/P Pulse Ox O2 Delivery O2 Flow Rate FiO2 06/26/16 13:01 92 20 96 Nasal Cannula 4.0 06/26/16 11:38 102.1 105/58 Intake and Output 06/25/16 06/25/16 06/26/16 15:00 23:00 07:00 Intake Total 817 ml 1000 ml Output Total 800 ml 1400 ml 900 ml Balance -800 ml -583 ml 100 ml Exam Constitutional: non-verbal, obese Head: atraumatic, normocephalic Neck: non-tender, supple Respiratory: clear to auscultation, crackles/rales, diminished breath sounds, normal air movement, No wheezing Cardiovascular: nl pulses, regular rate and rhythm Gastrointestinal: ascites, distended, soft, No mass, No rebound or guarding, No tender Musculoskeletal: nl extremities to inspection Skin: nl turgor, No rash or lesions Lymph: nl lymph nodes Results Result Diagram: 06/25/16 0624 06/26/16 0605 Results 24 hrs Laboratory Tests Test 06/26/16 06:05 Activated Partial Thromboplast Time 33.1 Anion Gap 21 H Blood Urea Nitrogen 34 H Calcium Level 7.6 L Carbon Dioxide Level 20 L Chloride Level 115 H Creatinine 1.43 H Glucose Level 133 # INR International Normalized Ratio 1.48 Potassium Level 3.5 Prothrombin Time 18.0 H Prothrombin Time Ratio 1.4 Sodium Level 152 H Medications Medications Current Medications Ondansetron HCl (Zofran Inj) 4 mg Q6H PRN IV NAUSEA AND/OR VOMITING; Start 06/09 at 04:30 Dutasteride (Avodart) 0.5 mg AM PO Last administered on 06/26/16 10:40; Admin Dose 0.5 MG; Start 06/09/16 at 09:00 Finasteride (Proscar) 5 mg AM PO Last administered on 06/26/16 10:39; Admin Dose 5 MG; Start 06/09/16 at 09:00 Levothyroxine Sodium (Synthroid) 50 mcg DAILY@06 PO Last administered on 05:34; Admin Dose 50 MCG; Start 06/09/16 at 06:00 IV Flush (NS 10 ml) 10 ml PRN PRN IV IV PROTOCOL; Start 06/09/16 at 17:00 Miscellaneous Information 1 ea NOTE XX ; Start 06/11/16 at 08:30 Rifaximin (Xifaxan) 550 mg BID PO Last administered on 06/26/16 10:40; Admin Dose 550 MG; Start 06/11/16 at 14:30 Pantoprazole (Protonix Iv) 40 mg BID@,18 IV Last administered on 06/26/16 05 :34; Admin Dose 40 MG; Start 06/11/16 at 18:00 Eye Lubricant (Artificial Tears Oph) 2 drop QID BOTH EYES Last administered on 06/26/16 13:00; Admin Dose 2 DROP; Start 06/12/16 at 13:00 Hydralazine HCl (Apresoline) 10 mg Q2H PRN IV SBP>170; Start 06/12/16 at 17:00 Metoprolol Tartrate (Lopressor) 5 mg Q6H PRN IV HR>130 Last administered on 11:55; Admin Dose 5 MG; Start 06/14/16 at 09:00 Metoprolol Tartrate (Lopressor) 25 mg BID PO Last administered on 06/25/16 22: 59; Admin Dose 25 MG; Start 06/14/16 at 21:00 Acetaminophen (Tylenol Liquid) 650 mg Q4H PRN NGT PAIN AND OR ELEVATED TEMP Last administered on 06/26/16 11:13; Admin Dose 650 MG; Start 06/17/16 at 12:30 Amiodarone HCl 200 mg 200 mg DAILY NGT Last administered on 06/26/16 11:14; Admin Dose 200 MG; Start 06/24/16 at 09:00 Cefepime HCl 50 ml @ 100 mls/hr Q12 IVPB Last administered on 06/26/16 10:36 ; Admin Dose 100 MLS/HR; Start 06/24/16 at 17:30 Dextrose (D5W) 1,000 ml @ 50 mls/hr Q20H IV Last administered on 06/26/16 00: 36; Admin Dose 70 MLS/HR; Start 06/24/16 at 20:00 Lactulose (Enulose) 30 gm QID PO Last administered on 06/26/16 13:00; Admin Dose 30 GM; Start 06/24/16 at 21:30 Febuxostat (Uloric) 40 mg DAILY PO Last administered on 06/26/16 10:39; Admin Dose 40 MG; Start 06/25/16 at 15:00 Colchicine (Colchicine) 0.6 mg TID PRN PO gout pain Last administered on 11:14; Admin Dose 0.6 MG; Start 06/25/16 at 21:00 Lorazepam (Ativan) 1 mg Q6H PRN IV ANXIETY; Start 06/25/16 at 18:30 Morphine Sulfate (morphine) 2 mg Q6H PRN IV PAIN LEVEL 7-10; Start 06/25/16 at 18:30 JAC DAVIS MD Jun 26, 2016 14:50
--- NOTE | 2016-06-26 15:37 | CONS ---
Date/Time of Note Date/Time of Note DATE: 06/26/16 TIME: 15:28 Assessment/Plan Assessment/Plan Chief Complaint/Hosp Course Assessment: Fevers ?ongoing aspiration ?line sepsis ?UTI Decompensated alcoholic liver cirrhosis Encephalopathy Dysphagia==> NGT Ascites==> r/o SBP AR Anemia, s/p GIB Esophageal varices, s/p banding S/p acute respiratory failure Hx FMF PICC==> 3/ Abx: Cefepime #3 Plan: Repeat cx's, change Cefepime to Vanco and Merrem, f/u cxr, aspiration precautions, GI rec-s==> pending paracentesis DW staff DW Dr Vega Problems: Consultation Date/Type/Reason Admit Date/Time Jun 09, 2016 at 04:01 Type of Consultation: id Referring Provider: MAURY BENITEZ MD Constitutional: other (Weakness) Eyes: no complaints, No discharge, No other, No pain, No redness, No visual change ENT: no complaints, No bleeding, No congestion, No discharge, No dysphagia, No other, No pain, No sore throat Respiratory: no complaints Cardiovascular: no complaints, No chest pain, No edema, No lightheadedness, No orthopenea, No other, No palpitations, No paroxysmal nocturnal dyspnea Gastrointestinal: no complaints, other (Hematemesis), pain (Diffuse abdominal pain, mild), No blood, No constipation, No decreased appetite, No diarrhea, No flatus, No nausea, No passing stool, No vomiting Genitourinary: no complaints, No bleeding, No discharge, No dysuria, No flank pain, No hematuria, No other Musculoskeletal: no complaints, No back pain, No bone/joint pain, No neck pain, No other, No restricted range of motion, No swelling Skin: no complaints, No bruising, No erythema, No laceration, No other, No pruritis, No rash, No skin lesions Neurologic: no complaints, No confusion, No dizziness, No focal-weakness, No headache, No other, No seizure, No syncope Endocrine: no complaints, No dry skin, No other, No polydypsia, No polyuria, No temp intolerance Lymphatic: no complaints, No adenopathy, No lymphadema, No other, No tender nodes Psychological: confusion Immunologic: no complaints, No immunodeficiency, No other, No pruritis, No rhinitis, No urticaria Past Medical History Medical History: hypertension, hyperthyroid, other (cirrhosis) Past Surgical History Past Surgical Hx: no surgical history Social History Alcohol Use: other (Previously heavy ethanol abuse) Smoking Status: Former smoker Drug Use: none Exam/Review of Systems Vital Signs Vitals Vital Signs Date Time Temp Pulse Resp B/P Pulse Ox O2 Delivery O2 Flow Rate FiO2 06/26/16 13:01 92 20 96 Nasal Cannula 4.0 06/26/16 11:38 102.1 105/58 Intake and Output 06/25/16 06/25/16 06/26/16 15:00 23:00 07:00 Intake Total 817 ml 1000 ml Output Total 800 ml 1400 ml 900 ml Balance -800 ml -583 ml 100 ml Results Result Diagram: 06/25/16 0624 06/26/16 0605 Results 24 hrs Laboratory Tests Test 06/26/16 06:05 Activated Partial Thromboplast Time 33.1 Anion Gap 21 H Blood Urea Nitrogen 34 H Calcium Level 7.6 L Carbon Dioxide Level 20 L Chloride Level 115 H Creatinine 1.43 H Glucose Level 133 # INR International Normalized Ratio 1.48 Potassium Level 3.5 Prothrombin Time 18.0 H Prothrombin Time Ratio 1.4 Sodium Level 152 H Medications Medications Current Medications Ondansetron HCl (Zofran Inj) 4 mg Q6H PRN IV NAUSEA AND/OR VOMITING; Start 06/09 at 04:30 Dutasteride (Avodart) 0.5 mg AM PO Last administered on 06/26/16 10:40; Admin Dose 0.5 MG; Start 06/09/16 at 09:00 Finasteride (Proscar) 5 mg AM PO Last administered on 06/26/16 10:39; Admin Dose 5 MG; Start 06/09/16 at 09:00 Levothyroxine Sodium (Synthroid) 50 mcg DAILY@06 PO Last administered on 05:34; Admin Dose 50 MCG; Start 06/09/16 at 06:00 IV Flush (NS 10 ml) 10 ml PRN PRN IV IV PROTOCOL; Start 06/09/16 at 17:00 Miscellaneous Information 1 ea NOTE XX ; Start 06/11/16 at 08:30 Rifaximin (Xifaxan) 550 mg BID PO Last administered on 06/26/16 10:40; Admin Dose 550 MG; Start 06/11/16 at 14:30 Pantoprazole (Protonix Iv) 40 mg BID@06,18 IV Last administered on 06/26/16 05 :34; Admin Dose 40 MG; Start 06/11/16 at 18:00 Eye Lubricant (Artificial Tears Oph) 2 drop QID BOTH EYES Last administered on 06/26/16 13:00; Admin Dose 2 DROP; Start 06/12/16 at 13:00 Hydralazine HCl (Apresoline) 10 mg Q2H PRN IV SBP>170; Start 06/12/16 at 17:00 Metoprolol Tartrate (Lopressor) 5 mg Q6H PRN IV HR>130 Last administered on 11:55; Admin Dose 5 MG; Start 06/14/16 at 09:00 Metoprolol Tartrate (Lopressor) 25 mg BID PO Last administered on 06/25/16 22: 59; Admin Dose 25 MG; Start 06/14/16 at 21:00 Acetaminophen (Tylenol Liquid) 650 mg Q4H PRN NGT PAIN AND OR ELEVATED TEMP Last administered on 06/26/16 11:13; Admin Dose 650 MG; Start 06/17/16 at 12:30 Amiodarone HCl 200 mg 200 mg DAILY NGT Last administered on 06/26/16 11:14; Admin Dose 200 MG; Start 06/24/16 at 09:00 Cefepime HCl 50 ml @ 100 mls/hr Q12 IVPB Last administered on 06/26/16 10:36 ; Admin Dose 100 MLS/HR; Start 06/24/16 at 17:30 Dextrose (D5W) 1,000 ml @ 50 mls/hr Q20H IV Last administered on 06/26/16 00: 36; Admin Dose 70 MLS/HR; Start 06/24/16 at 20:00 Lactulose (Enulose) 30 gm QID PO Last administered on 06/26/16 13:00; Admin Dose 30 GM; Start 06/24/16 at 21:30 Febuxostat (Uloric) 40 mg DAILY PO Last administered on 06/26/16 10:39; Admin Dose 40 MG; Start 06/25/16 at 15:00 Colchicine (Colchicine) 0.6 mg TID PRN PO gout pain Last administered on t 11:14; Admin Dose 0.6 MG; Start 06/25/16 at 21:00 Lorazepam (Ativan) 1 mg Q6H PRN IV ANXIETY; Start 06/25/16 at 18:30 Morphine Sulfate (morphine) 2 mg Q6H PRN IV PAIN LEVEL 7-10; Start 06/25/16 at 18:30 STACIE TAMEZ NP Jun 26, 2016 15:37
[2016-06-26] MEDS ORDERED: VANCOMYCIN IV PER PHARMACY XX SCH (16:00)
[2016-06-26] MEDS ORDERED: VANCOMYCIN 2 GM in SOD CHLORIDE 0.9% 500 ML IVPB ONE (17:00)
[2016-06-26] MEDS: MEROPENEM 500 MG/100 ML (PMX) 100 ML IVPB SCH (17:30)
--- NOTE | 2016-06-26 21:59 | CONS ---
Date/Time of Note Date/Time of Note DATE: 06/26/16 TIME: 21:50 Assessment/Plan Assessment/Plan Chief Complaint/Hosp Course Anemia - COMPLEX, MULTIFACTORIAL WITH COMPONENT ACD, ACUTE BLOOD LOSS AND SEVERE IRON DEFICIENCY IN THE PAST * Esophageal variceal bleeding/post EVL * CONT TO MONITOR BLOOD COUNT CLOSELY * OBSERVE FOR BLEEDING AND HEMOLYSIS * PRBC NEEDED Alcoholic cirrhosis * Post variceal bleeding/post EVL * Portal encephalopathy * Ascites * Unsafe swallowing/failed swallow eval/high risk for aspiration * Family now agreeable to EGD plus PEG. Will need to have paracenteses prior to procedure. Family was informed of increased risk given comorbidities Coagulopathy VIT K MAY NEEDS FFP PRIOR TO PROCEDURE Problems: Consultation Date/Type/Reason Admit Date/Time Jun 09, 2016 at 04:01 Initial Consult Date 06/09/16 Type of Consultation: HEMEONC Reason for Consultation ANEMIA Referring Provider: MAURY BENITEZ MD 24 HR Interval Summary Free Text/Dictation D/W FAMILY H/H- SL DOWN NO BLEEDING MORE ALERT TODAY family now agreeable to EGD with PEG ON nasogastric feedings PT paracenteses, correction of coagulopathy Exam/Review of Systems Vital Signs Vitals Vital Signs Date Time Temp Pulse Resp B/P Pulse Ox O2 Delivery O2 Flow Rate FiO2 06/26/16 20:42 102 20 93 Nasal Cannula 5.0 06/26/16 20:00 100.7 111/57 Intake and Output 06/25/16 06/25/16 06/26/16 15:00 23:00 07:00 Intake Total 817 ml 1000 ml Output Total 800 ml 1400 ml 900 ml Balance -800 ml -583 ml 100 ml Exam Constitutional: non-verbal, obese Head: atraumatic, normocephalic Neck: non-tender, supple Respiratory: clear to auscultation, crackles/rales, diminished breath sounds, normal air movement, No wheezing Cardiovascular: nl pulses, regular rate and rhythm Gastrointestinal: ascites, distended, soft, No mass, No rebound or guarding, No tender Musculoskeletal: nl extremities to inspection Skin: nl turgor, No rash or lesions Lymph: nl lymph nodes Results Result Diagram: 06/25/16 0624 06/26/16 0605 Results 24 hrs Laboratory Tests Test 06/26/16 06:05 Activated Partial Thromboplast Time 33.1 Anion Gap 21 H Blood Urea Nitrogen 34 H Calcium Level 7.6 L Carbon Dioxide Level 20 L Chloride Level 115 H Creatinine 1.43 H Glucose Level 133 # INR International Normalized Ratio 1.48 Potassium Level 3.5 Prothrombin Time 18.0 H Prothrombin Time Ratio 1.4 Sodium Level 152 H Medications Medications Current Medications Ondansetron HCl (Zofran Inj) 4 mg Q6H PRN IV NAUSEA AND/OR VOMITING; Start 06/09 at 04:30 Dutasteride (Avodart) 0.5 mg AM PO Last administered on 06/26/16 10:40; Admin Dose 0.5 MG; Start 06/09/16 at 09:00 Finasteride (Proscar) 5 mg AM PO Last administered on 06/26/16 10:39; Admin Dose 5 MG; Start 06/09/16 at 09:00 Levothyroxine Sodium (Synthroid) 50 mcg DAILY@06 PO Last administered on 05:34; Admin Dose 50 MCG; Start 06/09/16 at 06:00 IV Flush (NS 10 ml) 10 ml PRN PRN IV IV PROTOCOL; Start 06/09/16 at 17:00 Miscellaneous Information 1 ea NOTE XX ; Start 06/11/16 at 08:30 Rifaximin (Xifaxan) 550 mg BID PO Last administered on 06/26/16 20:46; Admin Dose 550 MG; Start 06/11/16 at 14:30 Pantoprazole (Protonix Iv) 40 mg BID@06,18 IV Last administered on 06/26/16 17 :31; Admin Dose 40 MG; Start 06/11/16 at 18:00 Eye Lubricant (Artificial Tears Oph) 2 drop QID BOTH EYES Last administered on 06/26/16 20:43; Admin Dose 2 DROP; Start 06/12/16 at 13:00 Hydralazine HCl (Apresoline) 10 mg Q2H PRN IV SBP>170; Start 06/12/16 at 17:00 Metoprolol Tartrate (Lopressor) 5 mg Q6H PRN IV HR>130 Last administered on 17:40; Admin Dose 5 MG; Start 06/14/16 at 09:00 Metoprolol Tartrate (Lopressor) 25 mg BID PO Last administered on 06/26/16 20: 46; Admin Dose 25 MG; Start 06/14/16 at 21:00 Acetaminophen (Tylenol Liquid) 650 mg Q4H PRN NGT PAIN AND OR ELEVATED TEMP Last administered on 06/26/16 20:45; Admin Dose 650 MG; Start 06/17/16 at 12:30 Amiodarone HCl 200 mg 200 mg DAILY NGT Last administered on 06/26/16 11:14; Admin Dose 200 MG; Start 06/24/16 at 09:00 Dextrose (D5W) 1,000 ml @ 50 mls/hr Q20H IV Last administered on 06/26/16 00: 36; Admin Dose 70 MLS/HR; Start 06/24/16 at 20:00 Lactulose (Enulose) 30 gm QID PO Last administered on 06/26/16 20:44; Admin Dose 30 GM; Start 06/24/16 at 21:30 Febuxostat (Uloric) 40 mg DAILY PO Last administered on 06/26/16 10:39; Admin Dose 40 MG; Start 06/25/16 at 15:00 Colchicine (Colchicine) 0.6 mg TID PRN PO gout pain Last administered on 17:41; Admin Dose 0.6 MG; Start 06/25/16 at 21:00 Lorazepam (Ativan) 1 mg Q6H PRN IV ANXIETY; Start 06/25/16 at 18:30 Morphine Sulfate 2 mg 2 mg Q6H PRN IV PAIN LEVEL 7-10; Start 06/25/16 at 18:30 Meropenem 100 ml @ 200 mls/hr Q12 IVPB Last administered on 06/26/16 17:30; Admin Dose 200 MLS/HR; Start 06/26/16 at 17:00 Vancomycin HCl/ Sodium Chloride (Vancocin/NS) 150 ml @ 75 mls/hr Q12H IVPB ; Start 06/27/16 at 05:00 FAYE RUSHING MD Jun 26, 2016 21:58
[2016-06-27] VITALS (16 sets, daily range): BP systolic 102–126; BP diastolic 56–69; PULSE 90–192; RESP 17–24
[2016-06-27] MEDS: ALBUTEROL/IPRATROPIUM (NEB) 3 ML AMP HHN SCH ×6 (00:04→19:26)
[2016-06-27] MEDS: ACETAMINOPHEN 650MG/20.3ML CUP NGT PRN (01:05)
[2016-06-27] MEDS: MEROPENEM 500 MG/100 ML (PMX) 100 ML IVPB SCH ×3 (01:08→20:35)
[2016-06-27] MEDS: VANCOMYCIN 750 MG in SOD CHLORIDE 0.9% 150 ML IVPB SCH ×2 (06:28→18:45)
[2016-06-27] MEDS: PANTOPRAZOLE 40 MG INJ IV SCH ×2 (06:28→18:45)
[2016-06-27] MEDS: LEVOTHYROXINE 50 MCG TAB PO SCH (06:29)
[2016-06-27] MEDS ORDERED: DILTIAZEM-D5W 125MG/125ML DRIP 125 ML IV SCH ×2 (06:30)
[2016-06-27 07:32] LABS: ADD SCAN DIFF NO
[2016-06-27 07:34] LABS: HEMATOCRIT 27.9 % (42.0-52.0); HEMOGLOBIN 8.3 g/dl (14.0-18.0); MEAN CORPUSCULAR HEMOGLOBIN 26.6 pg (29.0-33.0); MEAN CORPUSCULAR HGB CONC 29.7 g/dl (32.0-37.0); MEAN CORPUSCULAR VOLUME 89.4 fl (82.0-101.0); MEAN PLATELET VOLUME 11.4 fl (7.4-10.4); PLATELET COUNT 210 10^3/UL (140-415); RED BLOOD COUNT 3.12 10^6/ul (4.70-6.10); RED CELL DISTRIBUTION WIDTH 19.2 % (11.5-14.5); WHITE BLOOD COUNT 6.8 10^3/ul (4.8-10.8)
[2016-06-27 07:51] LABS: INR 1.51; PROTIME 18.3 Sec (12.2-14.2); PT RATIO 1.4
[2016-06-27 07:52] LABS: PARTIAL THROMBOPLASTIN TIME 36.1 Sec (25.0-35.0); POTASSIUM 3.1 mmol/L (3.5-5.1)
[2016-06-27 07:55] LABS: CREATININE 1.42 mg/dl (0.61-1.24)
[2016-06-27 07:56] LABS: CALCIUM 7.7 mg/dl (8.4-10.2)
[2016-06-27] MEDS: LACTULOSE 30ML CUP PO SCH ×4 (08:51→23:02)
[2016-06-27] MEDS: FEBUXOSTAT 40 MG TABLET PO SCH (08:52)
[2016-06-27] MEDS: DUTASTERIDE 0.5 MG CAP PO SCH (08:52)
[2016-06-27] MEDS: FINASTERIDE 5 MG TAB PO SCH (08:53)
[2016-06-27] MEDS: METOPROLOL 25 MG TAB PO SCH ×2 (08:53→23:00)
[2016-06-27] MEDS: RIFAXIMIN 550 MG TAB PO SCH ×2 (08:53→23:02)
[2016-06-27] MEDS: AMIODARONE 200 MG TAB NGT SCH (08:53)
--- NOTE | 2016-06-27 09:27 | CONS ---
Date/Time of Note Date/Time of Note DATE: 06/27/16 TIME: 09:27 Assessment/Plan Assessment/Plan Chief Complaint/Hosp Course Anemia - COMPLEX, MULTIFACTORIAL WITH COMPONENT ACD, ACUTE BLOOD LOSS AND SEVERE IRON DEFICIENCY IN THE PAST * Esophageal variceal bleeding/post EVL * CONT TO MONITOR BLOOD COUNT CLOSELY * OBSERVE FOR BLEEDING AND HEMOLYSIS * PRBC NEEDED Alcoholic cirrhosis * Post variceal bleeding/post EVL * Portal encephalopathy * Ascites * Unsafe swallowing/failed swallow eval/high risk for aspiration * Family now agreeable to EGD plus PEG. Will need to have paracenteses prior to procedure. Family was informed of increased risk given comorbidities Coagulopathy VIT K MAY NEEDS FFP PRIOR TO PROCEDURE Problems: Consultation Date/Type/Reason Admit Date/Time Jun 09, 2016 at 04:01 Initial Consult Date 06/09/16 Type of Consultation: [facility] [place] Referring Provider: MAURY BENITEZ MD 24 HR Interval Summary Free Text/Dictation all noted confused d/w family Exam/Review of Systems Vital Signs Vitals Vital Signs Date Time Temp Pulse Resp B/P Pulse Ox O2 Delivery O2 Flow Rate FiO2 06/27/16 08:09 145 06/27/16 08:01 98.8 18 112/56 94 06/27/16 04:12 Nasal Cannula 5.0 Intake and Output 06/26/16 06/26/16 06/27/16 15:00 23:00 07:00 Intake Total 100 ml 350 ml 50 ml Output Total 300 ml 300 ml Balance -200 ml 50 ml 50 ml Exam Exam Constitutional: alert, other (confused) Head: atraumatic, normocephalic Eyes: EOMI, PERRL, nl conjunctiva, nl lids ENMT: nl external ears & nose, nl lips & teeth, nl nasal mucosa & septum Neck: non-tender, supple Respiratory: clear to auscultation, normal air movement, No congested cough, No crackles/rales, No diminished breath sounds, No intercostal retraction, No labored breathing, No other, No respirations, No tactile fremitus, No wheezing Cardiovascular: nl pulses, regular rate and rhythm, No S3, No S4, No bruits, No diastolic murmur, No edema, No gallop, No irregular rhythm, No jugular venous distention (JVD), No murmurs/extra sounds, No other, No rub, No systolic murmur Gastrointestinal: ascites, distended Musculoskeletal: nl extremities to inspection Extremities: normal pulses, No calf tenderness, No clubbing, No cyanosis, No edema, No other, No palpable cord, No pitting pedal edema, No tenderness Neurological: CARROT BUNCHER II-XII intact, confused, nl strength Skin: nl turgor Lymph: nl lymph nodes Results Result Diagram: 06/27/16 0640 06/27/16 0640 Results 24 hrs Laboratory Tests Test 06/27/16 06:40 Activated Partial Thromboplast Time 36.1 H Anion Gap 19 H Blood Urea Nitrogen 34 H Calcium Level 7.7 L Carbon Dioxide Level 22 Chloride Level 114 H Creatinine 1.42 H Eosinophils # Eosinophils % Glucose Level 109 Hematocrit 27.9 L Hemoglobin 8.3 L INR International Normalized Ratio 1.51 Mean Corpuscular Hemoglobin 26.6 L Mean Corpuscular Hemoglobin Concent 29.7 L Mean Corpuscular Volume 89.4 Mean Platelet Volume 11.4 H Neutrophils # Neutrophils % Platelet Count 210 Potassium Level 3.1 L Prothrombin Time 18.3 H Prothrombin Time Ratio 1.4 Red Blood Count 3.12 L Red Cell Distribution Width 19.2 H Sodium Level 152 H White Blood Count 6.8 Medications Medications Current Medications Ondansetron HCl (Zofran Inj) 4 mg Q6H PRN IV NAUSEA AND/OR VOMITING; Start 06/09 at 04:30 Dutasteride (Avodart) 0.5 mg AM PO Last administered on 06/27/16 08:52; Admin Dose 0.5 MG; Start 06/09/16 at 09:00 Finasteride (Proscar) 5 mg AM PO Last administered on 06/27/16 08:53; Admin Dose 5 MG; Start 06/09/16 at 09:00 Levothyroxine Sodium (Synthroid) 50 mcg DAILY@06 PO Last administered on 06:29; Admin Dose 50 MCG; Start 06/09/16 at 06:00 IV Flush (NS 10 ml) 10 ml PRN PRN IV IV PROTOCOL; Start 06/09/16 at 17:00 Miscellaneous Information 1 ea NOTE XX ; Start 06/11/16 at 08:30 Rifaximin (Xifaxan) 550 mg BID PO Last administered on 06/27/16 08:53; Admin Dose 550 MG; Start 06/11/16 at 14:30 Pantoprazole (Protonix Iv) 40 mg BID@06,18 IV Last administered on 06/27/16 06 :28; Admin Dose 40 MG; Start 06/11/16 at 18:00 Eye Lubricant (Artificial Tears Oph) 2 drop QID BOTH EYES Last administered on 06/26/16 20:43; Admin Dose 2 DROP; Start 06/12/16 at 13:00 Hydralazine HCl (Apresoline) 10 mg Q2H PRN IV SBP>170; Start 06/12/16 at 17:00 Metoprolol Tartrate (Lopressor) 5 mg Q6H PRN IV HR>130 Last administered on 17:40; Admin Dose 5 MG; Start 06/14/16 at 09:00 Metoprolol Tartrate (Lopressor) 25 mg BID PO Last administered on 06/27/16 08: 53; Admin Dose 25 MG; Start 06/14/16 at 21:00 Acetaminophen (Tylenol Liquid) 650 mg Q4H PRN NGT PAIN AND OR ELEVATED TEMP Last administered on 06/27/16 01:05; Admin Dose 650 MG; Start 06/17/16 at 12:30 Amiodarone HCl 200 mg 200 mg DAILY NGT Last administered on 06/27/16 08:53; Admin Dose 200 MG; Start 06/24/16 at 09:00 Dextrose (D5W) 1,000 ml @ 50 mls/hr Q20H IV Last administered on 06/26/16 00: 36; Admin Dose 70 MLS/HR; Start 06/24/16 at 20:00 Lactulose (Enulose) 30 gm QID PO Last administered on 06/27/16 08:51; Admin Dose 30 GM; Start 06/24/16 at 21:30 Febuxostat (Uloric) 40 mg DAILY PO Last administered on 06/27/16 08:52; Admin Dose 40 MG; Start 06/25/16 at 15:00 Colchicine (Colchicine) 0.6 mg TID PRN PO gout pain Last administered on 17:41; Admin Dose 0.6 MG; Start 06/25/16 at 21:00 Lorazepam (Ativan) 1 mg Q6H PRN IV ANXIETY; Start 06/25/16 at 18:30 Morphine Sulfate 2 mg 2 mg Q6H PRN IV PAIN LEVEL 7-10; Start 06/25/16 at 18:30 Meropenem 100 ml @ 200 mls/hr Q12 IVPB Last administered on 06/27/16 01:08; Admin Dose 200 MLS/HR; Start 06/26/16 at 17:00 Vancomycin HCl/ Sodium Chloride (Vancocin/NS) 150 ml @ 75 mls/hr Q12H IVPB Last administered on 06/27/16 06:28; Admin Dose 75 MLS/HR; Start 06/27/16 at 05 :00 Phytonadione 10 mg 10 mg DAILY IM ; Start 06/27/16 at 09:00 Diltiazem HCl (Cardizem-D5W 125 Mg/125 ml Drip) 125 ml @ 0 mls/hr TITRATE IV Last administered on 06/27/16 07:05; Admin Dose 5 MLS/HR; Start 06/27/16 at 06: 30 FAYE RUSHING MD Jun 27, 2016 09:27
[2016-06-27] MEDS: PHYTONADIONE 10 MG/ML INJ IM SCH (09:33)
[2016-06-27] MEDS: ARTIFICIAL TEARS 15 ML OPH BOTH EYES SCH ×4 (09:33→22:00)
[2016-06-27 09:53] LABS: EOSINOPHILS # 0.1 10^3/ul (0.0-0.5); LYMPHOCYTES # 0.5 10^3/ul (0.8-2.9); MONOCYTE # 0.4 10^3/ul (0.3-0.9); NEUTROPHIL # 3.7 10^3/ul (1.6-7.5)
--- NOTE | 2016-06-27 10:41 | PN ---
Date/Time of Note Date/Time of Note DATE: 06/27/16 TIME: 10:37 Assessment/Plan VTE Prophylaxis VTE Prophylaxis Intervention: SCD's Lines/Catheters IV Catheter Type (from Nrs): PICC Line Central line still needed: Yes (IV access ) Urinary Cath still in place: Yes Reason Cath still needed: other (indicate) (confused, post extubatioin, unsafe to get out of bed ) Assessment/Plan Assessment/Plan 1. atrial fibrillation with RVR- started on Cardizem gtt, no anticoagulation due to GI bleeding 2. 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 Severe Anemia 2/2 #1- s/p PRBC 3. Decompensated Alcoholic Liver Cirrhosis with Encephalopathy -Hep panel shows Hx of Exposure to Hep B but no active infection 4. Hypotension: 2/2 GI Bleed-resolved s/p Pressors 5. Low TSH 2/2 sick euthyroid 6. s/p VDRF now extubated 7. Fever, H/o FMF and H/o Gout- we will start him on Uloric 40mg po daily and Colchicine 0.6mg PO TID prn gout attack PPx-SCDs,no heparin/lovenox due to GI bleeding KCL 20meQ IV X 1 now then add 20 meQ to IVF, Pt had a CT head yesterday- negative for acute findings Patient failed swallow evaluation secondary to lethargy x 2- discussed with family Khoa again- he agreed for G tube plan continue NG tube feeding Fever, H/o FMF and H/o Gout- we will start him on Uloric 40mg po daily and Colchicine 0.6mg PO TID prn gout attack,s/p ID consult, Ordered for paracentesis and fluid studies to rule out SBP s/p Neurology consult, EEG showed encephalopathy, Total time spent in patient evaluation and plan is more than 50 minutes and more than 50% time spent in educating patient/family at bedside. Subjective 24 Hr Interval Summary Free Text/Dictation pt went into atrial fibrillation with RVR started on Cardizem gtt, ID consulted for fever, BP stable, still has fever Exam/Review of Systems Vital Signs Vitals Vital Signs Date Time Temp Pulse Resp B/P Pulse Ox O2 Delivery O2 Flow Rate FiO2 06/27/16 09:09 90 06/27/16 08:01 98.8 18 112/56 94 06/27/16 04:12 Nasal Cannula 5.0 Intake and Output 06/26/16 06/26/16 06/27/16 15:00 23:00 07:00 Intake Total 100 ml 350 ml 50 ml Output Total 300 ml 300 ml Balance -200 ml 50 ml 50 ml Exam Constitutional: more alert but still intermittently confused Psych: confusion Neck: non-tender, supple Respiratory: clear to auscultation, normal air movement Cardiovascular: S1 S2 irrregularly irregular To NSR Gastrointestinal: bowel sounds, non-tender, soft, ascites + + nava catheter Results Result Diagram: 06/27/16 0640 06/27/16 0640 Results 24 hrs Laboratory Tests Test 06/27/16 06:40 Activated Partial Thromboplast Time 36.1 H Anion Gap 19 H Band Neutrophils % 31.0 H Blood Urea Nitrogen 34 H Calcium Level 7.7 L Carbon Dioxide Level 22 Chloride Level 114 H Creatinine 1.42 H Eosinophils # 0.1 Eosinophils % 2.0 Glucose Level 109 Hematocrit 27.9 L Hemoglobin 8.3 L INR International Normalized Ratio 1.51 Lymphocytes # 0.5 L Lymphocytes % 7.0 L Mean Corpuscular Hemoglobin 26.6 L Mean Corpuscular Hemoglobin Concent 29.7 L Mean Corpuscular Volume 89.4 Mean Platelet Volume 11.4 H Monocytes # 0.4 Monocytes % 6.0 Neutrophils # 3.7 Neutrophils % 54.0 Platelet Count 210 Potassium Level 3.1 L Prothrombin Time 18.3 H Prothrombin Time Ratio 1.4 Red Blood Count 3.12 L Red Cell Distribution Width 19.2 H Sodium Level 152 H White Blood Count 6.8 Medications Medications Current Medications Ondansetron HCl (Zofran Inj) 4 mg Q6H PRN IV NAUSEA AND/OR VOMITING; Start 06/09 at 04:30 Dutasteride (Avodart) 0.5 mg AM PO Last administered on 06/27/16 08:52; Admin Dose 0.5 MG; Start 06/09/16 at 09:00 Finasteride (Proscar) 5 mg AM PO Last administered on 06/27/16 08:53; Admin Dose 5 MG; Start 06/09/16 at 09:00 Levothyroxine Sodium (Synthroid) 50 mcg DAILY@06 PO Last administered on 06:29; Admin Dose 50 MCG; Start 06/09/16 at 06:00 IV Flush (NS 10 ml) 10 ml PRN PRN IV IV PROTOCOL; Start 06/09/16 at 17:00 Miscellaneous Information 1 ea NOTE XX ; Start 06/11/16 at 08:30 Rifaximin (Xifaxan) 550 mg BID PO Last administered on 06/27/16 08:53; Admin Dose 550 MG; Start 06/11/16 at 14:30 Pantoprazole (Protonix Iv) 40 mg BID@06,18 IV Last administered on 06/27/16 06 :28; Admin Dose 40 MG; Start 06/11/16 at 18:00 Eye Lubricant (Artificial Tears Oph) 2 drop QID BOTH EYES Last administered on 06/27/16 09:33; Admin Dose 2 DROP; Start 06/12/16 at 13:00 Hydralazine HCl (Apresoline) 10 mg Q2H PRN IV SBP>170; Start 06/12/16 at 17:00 Metoprolol Tartrate (Lopressor) 5 mg Q6H PRN IV HR>130 Last administered on 17:40; Admin Dose 5 MG; Start 06/14/16 at 09:00 Metoprolol Tartrate (Lopressor) 25 mg BID PO Last administered on 06/27/16 08: 53; Admin Dose 25 MG; Start 06/14/16 at 21:00 Acetaminophen (Tylenol Liquid) 650 mg Q4H PRN NGT PAIN AND OR ELEVATED TEMP Last administered on 06/27/16 01:05; Admin Dose 650 MG; Start 06/17/16 at 12:30 Amiodarone HCl 200 mg 200 mg DAILY NGT Last administered on 06/27/16 08:53; Admin Dose 200 MG; Start 06/24/16 at 09:00 Dextrose (D5W) 1,000 ml @ 50 mls/hr Q20H IV Last administered on 06/26/16 00: 36; Admin Dose 70 MLS/HR; Start 06/24/16 at 20:00 Lactulose (Enulose) 30 gm QID PO Last administered on 06/27/16 08:51; Admin Dose 30 GM; Start 06/24/16 at 21:30 Febuxostat (Uloric) 40 mg DAILY PO Last administered on 06/27/16 08:52; Admin Dose 40 MG; Start 06/25/16 at 15:00 Colchicine (Colchicine) 0.6 mg TID PRN PO gout pain Last administered on 17:41; Admin Dose 0.6 MG; Start 06/25/16 at 21:00 Lorazepam (Ativan) 1 mg Q6H PRN IV ANXIETY; Start 06/25/16 at 18:30 Morphine Sulfate 2 mg 2 mg Q6H PRN IV PAIN LEVEL 7-10; Start 06/25/16 at 18:30 Meropenem 100 ml @ 200 mls/hr Q12 IVPB Last administered on 06/27/16 09:33; Admin Dose 200 MLS/HR; Start 06/26/16 at 17:00 Vancomycin HCl/ Sodium Chloride (Vancocin/NS) 150 ml @ 75 mls/hr Q12H IVPB Last administered on 06/27/16 06:28; Admin Dose 75 MLS/HR; Start 06/27/16 at 05 :00 Phytonadione 10 mg 10 mg DAILY IM Last administered on 06/27/16 09:33; Admin Dose 10 MG; Start 06/27/16 at 09:00 Diltiazem HCl (Cardizem-D5W 125 Mg/125 ml Drip) 125 ml @ 0 mls/hr TITRATE IV Last administered on 06/27/16 07:05; Admin Dose 5 MLS/HR; Start 06/27/16 at 06: 30 Miscellaneous Information VANCOMYCIN TROUGH AT 0400 ONCE ONCE XX ; Start 06/28/16 at 04:00; Stop 06/28/16 at 04:01 Potassium Chloride/Sodium Chloride (KCl/NS) 110 ml @ 55 mls/hr ONCE ONCE IVPB ; Start 06/27/16 at 11:00; Stop 06/27/16 at 12:59; Status MAURY MARTINEZ MD Jun 27, 2016 10:40
--- NOTE | 2016-06-27 10:58 | PN ---
Date/Time of Note Date/Time of Note DATE: 06/27/16 TIME: 10:54 Assessment/Plan VTE Prophylaxis VTE Prophylaxis Intervention: contraindicated Lines/Catheters IV Catheter Type (from Nrsg): PICC Line Central line still needed: Yes Urinary Cath still in place: Yes Reason Cath still needed: other (indicate) (PCP choice) Assessment/Plan Assessment/Plan [facility] Assessment: * Esophageal variceal bleeding/post EVL * Anemia secondary to above * Alcoholic cirrhosis * Post variceal bleeding/post EVL * Portal encephalopathy * Ascites * Coagulopathy * Unsafe swallowing/failed swallow eval/high risk for aspiration * Family now agreeable to EGD plus PEG. Will need to have paracenteses prior to procedure. Family was informed of increased risk given comorbidities Plan: * Paracenteses early Tuesday * Correct coagulopathy * Possible EGD with PEG on Tuesday if conditions appropriate * Patient's granddaughter has been informed of the procedure. Indications, alternatives, risks, benefits, alternatives. Agreeable to proceed Subjective 24 Hr Interval Summary Free Text/Dictation Course reviewed with nursing staff Patient remains confused, unresponsive Abdominal girth significantly increased We will schedule therapeutic paracentesis tomorrow Attempt to correct coagulopathy And if conditions appropriate proceed with EGD PEG Patient's family who has been informed of the increased risk given the patient' s condition Exam/Review of Systems Vital Signs Vitals Vital Signs Date Time Temp Pulse Resp B/P Pulse Ox O2 Delivery O2 Flow Rate FiO2 06/27/16 09:09 90 06/27/16 08:01 98.8 18 112/56 94 06/27/16 04:12 Nasal Cannula 5.0 Intake and Output 06/26/16 06/26/16 06/27/16 15:00 23:00 07:00 Intake Total 100 ml 350 ml 50 ml Output Total 300 ml 300 ml Balance -200 ml 50 ml 50 ml Exam Constitutional: non-verbal, obese Head: atraumatic, normocephalic Neck: non-tender, supple Respiratory: clear to auscultation, crackles/rales, diminished breath sounds, normal air movement, No wheezing Cardiovascular: nl pulses, regular rate and rhythm Gastrointestinal: Significant ascites, distended, soft, No mass, No rebound or guarding, No tender Musculoskeletal: nl extremities to inspection Skin: nl turgor, No rash or lesions Lymph: nl lymph nodes Results Result Diagram: 06/27/16 0640 06/27/16 0640 Results 24 hrs Laboratory Tests Test 06/27/16 06:40 Activated Partial Thromboplast Time 36.1 H Anion Gap 19 H Band Neutrophils % 31.0 H Blood Urea Nitrogen 34 H Calcium Level 7.7 L Carbon Dioxide Level 22 Chloride Level 114 H Creatinine 1.42 H Eosinophils # 0.1 Eosinophils % 2.0 Glucose Level 109 Hematocrit 27.9 L Hemoglobin 8.3 L INR International Normalized Ratio 1.51 Lymphocytes # 0.5 L Lymphocytes % 7.0 L Mean Corpuscular Hemoglobin 26.6 L Mean Corpuscular Hemoglobin Concent 29.7 L Mean Corpuscular Volume 89.4 Mean Platelet Volume 11.4 H Monocytes # 0.4 Monocytes % 6.0 Neutrophils # 3.7 Neutrophils % 54.0 Platelet Count 210 Potassium Level 3.1 L Prothrombin Time 18.3 H Prothrombin Time Ratio 1.4 Red Blood Count 3.12 L Red Cell Distribution Width 19.2 H Sodium Level 152 H White Blood Count 6.8 Medications Medications Current Medications Ondansetron HCl (Zofran Inj) 4 mg Q6H PRN IV NAUSEA AND/OR VOMITING; Start 06/09 at 04:30 Dutasteride (Avodart) 0.5 mg AM PO Last administered on 06/27/16 08:52; Admin Dose 0.5 MG; Start 06/09/16 at 09:00 Finasteride (Proscar) 5 mg AM PO Last administered on 06/27/16 08:53; Admin Dose 5 MG; Start 06/09/16 at 09:00 Levothyroxine Sodium (Synthroid) 50 mcg DAILY@06 PO Last administered on 06:29; Admin Dose 50 MCG; Start 06/09/16 at 06:00 IV Flush (NS 10 ml) 10 ml PRN PRN IV IV PROTOCOL; Start 06/09/16 at 17:00 Miscellaneous Information 1 ea NOTE XX ; Start 06/11/16 at 08:30 Rifaximin (Xifaxan) 550 mg BID PO Last administered on 06/27/16 08:53; Admin Dose 550 MG; Start 06/11/16 at 14:30 Pantoprazole (Protonix Iv) 40 mg BID@18 IV Last administered on 06/27/16 06 :28; Admin Dose 40 MG; Start 06/11/16 at 18:00 Eye Lubricant (Artificial Tears Oph) 2 drop QID BOTH EYES Last administered on 06/27/16 09:33; Admin Dose 2 DROP; Start 06/12/16 at 13:00 Hydralazine HCl (Apresoline) 10 mg Q2H PRN IV SBP>170; Start 06/12/16 at 17:00 Metoprolol Tartrate (Lopressor) 5 mg Q6H PRN IV HR>130 Last administered on 17:40; Admin Dose 5 MG; Start 06/14/16 at 09:00 Metoprolol Tartrate (Lopressor) 25 mg BID PO Last administered on 06/27/16 08: 53; Admin Dose 25 MG; Start 06/14/16 at 21:00 Acetaminophen (Tylenol Liquid) 650 mg Q4H PRN NGT PAIN AND OR ELEVATED TEMP Last administered on 06/27/16 01:05; Admin Dose 650 MG; Start 06/17/16 at 12:30 Amiodarone HCl 200 mg 200 mg DAILY NGT Last administered on 06/27/16 08:53; Admin Dose 200 MG; Start 06/24/16 at 09:00 Dextrose (D5W) 1,000 ml @ 50 mls/hr Q20H IV Last administered on 06/26/16 00: 36; Admin Dose 70 MLS/HR; Start 06/24/16 at 20:00 Lactulose (Enulose) 30 gm QID PO Last administered on 06/27/16 08:51; Admin Dose 30 GM; Start 06/24/16 at 21:30 Febuxostat (Uloric) 40 mg DAILY PO Last administered on 06/27/16 08:52; Admin Dose 40 MG; Start 06/25/16 at 15:00 Colchicine (Colchicine) 0.6 mg TID PRN PO gout pain Last administered on 17:41; Admin Dose 0.6 MG; Start 06/25/16 at 21:00 Lorazepam (Ativan) 1 mg Q6H PRN IV ANXIETY; Start 06/25/16 at 18:30 Morphine Sulfate 2 mg 2 mg Q6H PRN IV PAIN LEVEL 7-10; Start 06/25/16 at 18:30 Meropenem 100 ml @ 200 mls/hr Q12 IVPB Last administered on 06/27/16 09:33; Admin Dose 200 MLS/HR; Start 06/26/16 at 17:00 Vancomycin HCl/ Sodium Chloride (Vancocin/NS) 150 ml @ 75 mls/hr Q12H IVPB Last administered on 06/27/16 06:28; Admin Dose 75 MLS/HR; Start 06/27/16 at 05 :00 Phytonadione 10 mg 10 mg DAILY IM Last administered on 06/27/16 09:33; Admin Dose 10 MG; Start 06/27/16 at 09:00 Diltiazem HCl (Cardizem-D5W 125 Mg/125 ml Drip) 125 ml @ 0 mls/hr TITRATE IV Last administered on 06/27/16 07:05; Admin Dose 5 MLS/HR; Start 06/27/16 at 06: 30 Miscellaneous Information VANCOMYCIN TROUGH AT 0400 ONCE ONCE XX ; Start 06/28/16 at 04:00; Stop 06/28/16 at 04:01 Potassium Chloride/Sodium Chloride (KCl/NS) 110 ml @ 55 mls/hr ONCE ONCE IVPB ; Start 06/27/16 at 11:00; Stop 06/27/16 at 12:59 JAC DAVIS MD Jun 27, 2016 10:57
[2016-06-27] MEDS ORDERED: POTASSIUM CHLORIDE 20 MEQ in SOD CHLORIDE 0.9% 100 ML IVPB ONE (11:00)
[2016-06-27] MEDS: IPRATROPIUM (NEB) 0.5 MG/2.5 ML AMP NEB PRN (15:36)
[2016-06-27] MEDS: ALBUTEROL 0.083% (NEB) 2.5 MG/3 ML AMP NEB PRN (15:36)
[2016-06-27] MEDS: D5W + KCL 20 MEQ 1,000 ML IV SCH (15:37)
[2016-06-27] MEDS: predniSONE 20 MG TAB GTB SCH (15:37)
--- NOTE | 2016-06-27 17:44 | RADRPT ---
PROCEDURE: XR Chest. CLINICAL INDICATION: Shortness of breath. TECHNIQUE: Single frontal view. COMPARISON: 06/24/2016. FINDINGS: The nasogastric tube tip is in the stomach and the left arm PICC line tip is in the superior vena ca va. There is mild atelectasis at the lung bases with left worse than right, unchanged. The lungs a re otherwise clear. The heart is mildly enlarged. There is calcification in the aorta consistent with atherosclerosis. There is no pleural effusion. There is no pneumothorax. IMPRESSION: 1. Nasogastric tube and left arm PICC line in satisfactory position. 2. Mild atelectasis at the lung bases, left worse than right. Unchanged. 3. Mild cardiomegaly and atherosclerosis. RPTAT: QQ .Emmanuel Murillo MD, Date Time Electronically viewed and signed by .Emmanuel Murillo MD, MD on 06/27/2016 17:43 .R/
--- NOTE | 2016-06-27 17:52 | PN ---
DATE: 06/27/2016 SUBJECTIVE: No acute changes. The patient is spiking fevers with a T-max yesterday 102.1, today 10 1.8. He is noncommunicative, lying in bed. and son at bedside. His pulse is 95, respirations 18, blood pressure 119/60, saturation 94 on 6 liters nasal cannula. INDWELLINGS: NG tube, left upper extremity PICC line placed on 06/09/2016, Crandall catheter, rectal t ube. LABORATORY DATA: WBC 6.8, H and H 8.3 and 27.9, platelets 210, neutrophils 54, bands 31, lymphs 6, monos 6. Sodium 152, potassium 3.1, BUN 34, creatinine 1.42. ANTIMICROBIALS: The patient was started on vancomycin, Merrem yesterday. PHYSICAL EXAMINATION: GENERAL: This is well-developed, fragile, elderly man who is lying comfortably in bed. HEENT: Head atraumatic, normocephalic. Sclerae anicteric. Buccal mucosa dry. NECK: Supple. Trachea midline. CHEST: Rise symmetrical. Breath sounds diminished to bases with expiratory wheezes bilaterally. HEART: S1, S2. ABDOMEN: Distended, soft. Bowel tones present. EXTREMITIES: With trace edema. SKIN: Positive for jaundice. ASSESSMENT: 1. Persistent fevers, questionable secondary to familial Mediterranean fevers versus infectious castillo ology. 2. Dysphagia, possible ongoing aspiration. 3. Encephalopathy, hepatic versus toxic metabolic. 4. Ascites, rule out spontaneous bacterial peritonitis. 5. Alcoholic cirrhosis. 6. Acute renal failure. 7. Anemia, status post gastrointestinal bleeding. 8. Status post banding for esophageal varices. 9. Status post acute respiratory failure, extubated. 10. Status post gastrointestinal bleeding. 11. Esophageal varices, status post banding. 12. Status post respiratory failure. 13. History of familial Mediterranean fever. 14. Diarrhea, patient is getting lactulose. PLAN: The patient remains clinically unchanged. Again, he was started on broad spectrum antibiotic s yesterday, blood culture and urine culture pending. We are going to order chest x-ray. He is mumtaz eduled for EGD tomorrow for PEG placement. He is also scheduled for paracentesis prior to that. Wi ll send peritoneal fluid for cultures and cytology. I had a long discussion with the patient's son and at bedside. They both are requesting prednisone as they said prednisone takes care of sreedhar ent's fever. I discussed the case with Dr. Amos Collins and we will start patient on prednisone 40 mg daily. The patient was seen by gastroenterology, hematology, neurology and cardiology. He was a lso seen previously by pulmonary team. Dictated By: STACIE [address] [employer] for [employer]/RICK Conf#: [id number] DID#: [id number]
--- NOTE | 2016-06-27 19:15 | CONS ---
Date/Time of Note Date/Time of Note DATE: 06/27/16 TIME: 19:14 Assessment/Plan Assessment/Plan Additional Assessment/Plan 1. Paroxysmal atrial fibrillation/atrial flutter, now back in sinus rhythm and remains thus - now in sinus 2. REC NSVT - add BB as toleated - BEA stable now - no new episodes now 3. Hypotension, now improved- on Rx - better overall. - STABLE 4. Gastrointestinal bleed- NG tube in - GI team follows 5. Cirrhosis- avoid hepatotoxic meds 6. Encephalopathy-ongoing 7. Anemia, severe, status post transfusions. 8. Hypernatremia. 9. Coagulopathy 10.Fever 11.PNA- on anti-Bx, con't med rx 12.ARF Consultation Date/Type/Reason Admit Date/Time Jun 09, 2016 at 04:01 Initial Consult Date 06/09/16 Type of Consultation: [facility] Referring Provider: MAURY BENITEZ MD 24 HR Interval Summary Free Text/Dictation No acute change - BP stale - no significant arrhythmia on tele now ROS: No fever, no chills, no nausea, no vomiting, no diarrhea/constipation No recent weight changes No chest pain, no PND, no orthopnea No dizziness, blurred vision No thirst, no heat or cold intolerance (per nurse) Exam/Review of Systems Vital Signs Vitals Vital Signs Date Time Temp Pulse Resp B/P Pulse Ox O2 Delivery O2 Flow Rate FiO2 06/27/16 17:16 94 24 96 Nasal Cannula 6.0 06/27/16 16:16 98.7 122/69 Intake and Output 06/26/16 06/26/16 06/27/16 15:00 23:00 07:00 Intake Total 100 ml 350 ml 50 ml Output Total 300 ml 300 ml Balance -200 ml 50 ml 50 ml Exam General: WN/WD/NAD, AOx lethrgic HEENT: Unicetric/atraumatic/EOMI (does not follow commands) NECK: JVD elevated, no thyromegaly, NGT Lymph: no lymphadenopathy HEART: regular with no S3, II/ systolic murmur at apex LUNGS: Coarse sounds ABD: soft, NT, ND, +BS : Intact Neuro: non focal SKIN: chronic changes EXT: trace edema Results Result Diagram: 06/27/16 0640 06/27/16 0640 Results 24 hrs Laboratory Tests Test 06/27/16 06:40 Activated Partial Thromboplast Time 36.1 H Anion Gap 19 H Band Neutrophils % 31.0 H Blood Urea Nitrogen 34 H Calcium Level 7.7 L Carbon Dioxide Level 22 Chloride Level 114 H Creatinine 1.42 H Eosinophils # 0.1 Eosinophils % 2.0 Glucose Level 109 Hematocrit 27.9 L Hemoglobin 8.3 L INR International Normalized Ratio 1.51 Lymphocytes # 0.5 L Lymphocytes % 7.0 L Mean Corpuscular Hemoglobin 26.6 L Mean Corpuscular Hemoglobin Concent 29.7 L Mean Corpuscular Volume 89.4 Mean Platelet Volume 11.4 H Monocytes # 0.4 Monocytes % 6.0 Neutrophils # 3.7 Neutrophils % 54.0 Platelet Count 210 Potassium Level 3.1 L Prothrombin Time 18.3 H Prothrombin Time Ratio 1.4 Red Blood Count 3.12 L Red Cell Distribution Width 19.2 H Sodium Level 152 H White Blood Count 6.8 Medications Medications Current Medications Ondansetron HCl (Zofran Inj) 4 mg Q6H PRN IV NAUSEA AND/OR VOMITING; Start 06/09 at 04:30 Dutasteride (Avodart) 0.5 mg AM PO Last administered on 06/27/16 08:52; Admin Dose 0.5 MG; Start 06/09/16 at 09:00 Finasteride (Proscar) 5 mg AM PO Last administered on 06/27/16 08:53; Admin Dose 5 MG; Start 06/09/16 at 09:00 Levothyroxine Sodium (Synthroid) 50 mcg DAILY@06 PO Last administered on 06:29; Admin Dose 50 MCG; Start 06/09/16 at 06:00 IV Flush (NS 10 ml) 10 ml PRN PRN IV IV PROTOCOL; Start 06/09/16 at 17:00 Miscellaneous Information 1 ea NOTE XX ; Start 06/11/16 at 08:30 Rifaximin (Xifaxan) 550 mg BID PO Last administered on 06/27/16 08:53; Admin Dose 550 MG; Start 06/11/16 at 14:30 Pantoprazole (Protonix Iv) 40 mg BID@,18 IV Last administered on 06/27/16 18 :45; Admin Dose 40 MG; Start 06/11/16 at 18:00 Eye Lubricant (Artificial Tears Oph) 2 drop QID BOTH EYES Last administered on 06/27/16 18:45; Admin Dose 2 DROP; Start 06/12/16 at 13:00 Hydralazine HCl (Apresoline) 10 mg Q2H PRN IV SBP>170; Start 06/12/16 at 17:00 Metoprolol Tartrate (Lopressor) 5 mg Q6H PRN IV HR>130 Last administered on 17:40; Admin Dose 5 MG; Start 06/14/16 at 09:00 Metoprolol Tartrate (Lopressor) 25 mg BID PO Last administered on 06/27/16 08: 53; Admin Dose 25 MG; Start 06/14/16 at 21:00 Acetaminophen (Tylenol Liquid) 650 mg Q4H PRN NGT PAIN AND OR ELEVATED TEMP Last administered on 06/27/16 01:05; Admin Dose 650 MG; Start 06/17/16 at 12:30 Amiodarone HCl (Cordarone) 200 mg DAILY NGT Last administered on 06/27/16 08: 53; Admin Dose 200 MG; Start 06/24/16 at 09:00 Lactulose (Enulose) 30 gm QID PO Last administered on 06/27/16 18:45; Admin Dose 30 GM; Start 06/24/16 at 21:30 Febuxostat (Uloric) 40 mg DAILY PO Last administered on 06/27/16 08:52; Admin Dose 40 MG; Start 06/25/16 at 15:00 Colchicine (Colchicine) 0.6 mg TID PRN PO gout pain Last administered on 17:41; Admin Dose 0.6 MG; Start 06/25/16 at 21:00 Lorazepam (Ativan) 1 mg Q6H PRN IV ANXIETY; Start 06/25/16 at 18:30 Morphine Sulfate 2 mg 2 mg Q6H PRN IV PAIN LEVEL 7-10; Start 06/25/16 at 18:30 Meropenem 100 ml @ 200 mls/hr Q12 IVPB Last administered on 06/27/16 09:33; Admin Dose 200 MLS/HR; Start 06/26/16 at 17:00 Vancomycin HCl/ Sodium Chloride (Vancocin/NS) 150 ml @ 75 mls/hr Q12H IVPB Last administered on 06/27/16 18:45; Admin Dose 75 MLS/HR; Start 06/27/16 at 05 :00 Phytonadione 10 mg 10 mg DAILY IM Last administered on 06/27/16 09:33; Admin Dose 10 MG; Start 06/27/16 at 09:00 Diltiazem HCl (Cardizem-D5W 125 Mg/125 ml Drip) 125 ml @ 0 mls/hr TITRATE IV Last administered on 06/27/16 07:05; Admin Dose 5 MLS/HR; Start 06/27/16 at 06: 30 Miscellaneous Information (*Rx Drug Level Order Reminder*) VANCOMYCIN TROUGH AT 0400 ONCE ONCE XX ; Start 06/28/16 at 04:00; Stop 06/28/16 at 04:01 Prednisone 40 mg 40 mg DAILY GTB Last administered on 06/27/16 15:37; Admin Dose 40 MG; Start 06/27/16 at 14:30 Potassium Chloride/Dextrose (D5W + KCl 20 Meq) 1,000 ml @ 50 mls/hr Q20H IV Last administered on 06/27/16 15:37; Admin Dose 50 MLS/HR; Start 06/27/16 at 15 :30 BLADIMIR DEAN MD Jun 27, 2016 19:15
[2016-06-27] MEDS ORDERED: FUROSEMIDE 40 MG INJ IV ONE (20:00)
[2016-06-27 20:05] LABS: AADO2 Arterial 167.2 mmHg (7.0-24.0); Allen Test ACCEPTAB; Arterial Base Excess -6.4 mmol/L (-3.0-3); Arterial COHb 0.3 % (0.0-3.0); Arterial Fraction of Oxyhgb 94.1 % (93.0-99.0); Arterial HCO3 16.6 mmol/L (22.0-26.0); Arterial MetHb 0.3 % (0.0-1.5); Arterial Total Hemglobin 9.3 g/dl (12.0-18.0); MODE NASAL CANNULA
--- NOTE | 2016-06-27 21:04 | RADRPT ---
PROCEDURE: XR Chest. CLINICAL INDICATION: Shortness of breath. TECHNIQUE: Single frontal view. COMPARISON: 06/27/2016. 1425 hours. FINDINGS: The nasogastric tube and left arm PICC line remain in satisfactory position. There is mild atelectas is at the lung bases, unchanged. The heart is enlarged. There is calcification in the aorta consistent with atherosclerosis. There is no pleural effusion. There is no pneumothorax. IMPRESSION: 1. No change from the prior study done earlier the same day. RPTAT: QQ .Emmanuel Murillo MD, MD Date Time Electronically viewed and signed by .Emmanuel Murillo MD, MD on 06/27/2016 21:03 .R/
[2016-06-28] VITALS (24 sets, daily range): BP systolic 79–123; BP diastolic 24–74; PULSE 87–137; RESP 14–23
[2016-06-28] MEDS ORDERED: CELECOXIB 200 MG CAP PO ONE (00:30)
[2016-06-28] MEDS: ALBUTEROL/IPRATROPIUM (NEB) 3 ML AMP HHN SCH ×6 (01:11→21:53)
[2016-06-28] MEDS: LINEZOLID 600 MG/D5W (PMX) 300 ML IVPB SCH ×2 (02:24→09:43)
[2016-06-28 04:41] LABS: ADD SCAN DIFF NO
[2016-06-28 04:52] LABS: ALBUMIN 2.5 g/dl (3.3-4.9)
[2016-06-28 04:53] LABS: POTASSIUM 3.6 mmol/L (3.5-5.1)
[2016-06-28 04:55] LABS: ALBUMIN/GLOBULIN RATIO 0.62; BILIRUBIN,INDIRECT 0.2 mg/dl (0-1.1); BILIRUBIN,TOTAL 0.2 mg/dl (0.2-1.3); CREATININE 1.49 mg/dl (0.61-1.24); TOTAL PROTEIN 6.5 g/dl (6.1-8.1)
[2016-06-28 04:56] LABS: CALCIUM 7.8 mg/dl (8.4-10.2)
[2016-06-28 04:58] LABS: INR 1.36; PROTIME 16.8 Sec (12.2-14.2); PT RATIO 1.3
[2016-06-28 04:59] LABS: PARTIAL THROMBOPLASTIN TIME 33.6 Sec (25.0-35.0)
[2016-06-28] MEDS: VANCOMYCIN 750 MG in SOD CHLORIDE 0.9% 150 ML IVPB SCH (05:00)
[2016-06-28 05:01] LABS: ABNORMAL IP MESSAGE 1; BASOPHILS % 0.2 % (0.0-2.0); EOSINOPHILS % 0.2 % (0.0-7.0); HEMATOCRIT 26.6 % (42.0-52.0); HEMOGLOBIN 7.9 g/dl (14.0-18.0); LYMPHOCYTES # 0.5 10^3/ul (0.8-2.9); LYMPHOCYTES % 8.3 % (15.0-51.0); MEAN CORPUSCULAR HEMOGLOBIN 26.5 pg (29.0-33.0); MEAN CORPUSCULAR HGB CONC 29.7 g/dl (32.0-37.0); MEAN CORPUSCULAR VOLUME 89.3 fl (82.0-101.0); MEAN PLATELET VOLUME 11.3 fl (7.4-10.4); MONOCYTE # 0.2 10^3/ul (0.3-0.9); MONOCYTES % 4.4 % (0.0-11.0); NEUTROPHIL # 4.7 10^3/ul (1.6-7.5); NEUTROPHILS % 85.8 % (39.0-77.0); NUCLEATED RED BLOOD CELLS% 0.4 /100WBC (0.0-0.0); PLATELET COUNT 191 10^3/UL (140-415); RED BLOOD COUNT 2.98 10^6/ul (4.70-6.10); RED CELL DISTRIBUTION WIDTH 18.9 % (11.5-14.5); WHITE BLOOD COUNT 5.4 10^3/ul (4.8-10.8)
[2016-06-28] MEDS: LEVOTHYROXINE 50 MCG TAB PO SCH (06:00)
--- NOTE | 2016-06-28 06:15 | CONS ---
DATE OF ADMISSION: 06/09/2016 DATE OF CONSULTATION: Infectious disease consultation for Dr. Kwame Cuenca seeing the patient at the request of Dr. Michi Sears. HISTORY OF PRESENT ILLNESS: The patient is a 71-year-old [place] male who was admitted with GI bleeding as a result of cirrhosis of the liver, esophageal varices and alcoholism. He was admit nancy on 06/09/2016. The patient being cirrhotic had a stormy hospital course involving encephalopath y, ascites, acute renal failure and acute respiratory failure and development of dysphagia. His con dition is further complicated by the fact that he has familial Mediterranean fever for which he was taking colchicine twice a day, but stopped until recently. He also apparently has developed acute g out in the dorsum of his right great toe. The patient is scheduled to have a paracentesis of ascite s tomorrow. He has also been scheduled for an EGD tomorrow after the paracentesis. The patient has had a temperature today of 102 while on meropenem and vancomycin. The patient has also had diarrhe a. His cultures recently reviewed have been negative with a negative Clostridium difficile, a negat efra MRSA, but his feces are positive for vancomycin-resistant enterococci that is certainly the time at which this organism should make its appearance and become pathogenic. PHYSICAL EXAMINATION GENERAL: Reveals a well-developed, hirsute male lying in bed with a nasogastric tube, IV, Crandall cat heter and a rectal tube in place. He is putting out good urine and good volume from both of the tub es. The patient is arousable and can answer some simple questions translated by his son who is at t he bedside in Peruvian. The patient can move all 4 extremities. CHEST: Clear. HEART: Rapid but regular. Blood pressure is stable. ABDOMEN: Protuberant. There is a fluid wave. There are some bowel sounds. EXTREMITIES: He has trace pedal edema and a swelling and purplish discoloration of the dorsum of th e right proximal phalanx of the right great toe. INITIAL IMPRESSION: 1. Septicemia with bandemia and fever. 2. Acute gout. 3. Cirrhosis with ascites, varices, dysphagia and encephalopathy. 4. Familial Mediterranean fever. RECOMMENDATIONS: 1. Would change the patient's vancomycin to Zyvox 600 mg IV daily and give the patient 2 doses of C elebrex for the gout 200 mg by nasogastric tube followed by a second dose 5 hours later. Dictated By: Juvenal MEDEROS MD EC/NTS Conf#: [id number] DID#: [id number] CC: MONTY SEARS MD; KWAME CUENCA MD;*EndCC*
[2016-06-28] MEDS: D5W + KCL 20 MEQ 1,000 ML IV SCH (07:00)
[2016-06-28] MEDS: PANTOPRAZOLE 40 MG INJ IV SCH ×2 (07:01→18:08)
[2016-06-28] MEDS: FEBUXOSTAT 40 MG TABLET PO SCH (09:00)
[2016-06-28] MEDS ORDERED: VANCOMYCIN 500MG/NS (PMX) 100 ML IVPB SCH (09:00)
[2016-06-28] MEDS: DUTASTERIDE 0.5 MG CAP PO SCH (09:00)
[2016-06-28] MEDS: AMIODARONE 200 MG TAB NGT SCH ×2 (09:00→22:55)
[2016-06-28] MEDS: METOPROLOL 25 MG TAB PO SCH ×2 (09:00→22:56)
[2016-06-28] MEDS: predniSONE 20 MG TAB GTB SCH (09:00)
[2016-06-28] MEDS: LACTULOSE 30ML CUP PO SCH ×4 (09:00→22:57)
[2016-06-28] MEDS: FINASTERIDE 5 MG TAB PO SCH (09:00)
[2016-06-28] MEDS: RIFAXIMIN 550 MG TAB PO SCH ×2 (09:00→22:55)
[2016-06-28] MEDS: MEROPENEM 500 MG/100 ML (PMX) 100 ML IVPB SCH (09:43)
[2016-06-28] MEDS: ARTIFICIAL TEARS 15 ML OPH BOTH EYES SCH ×3 (09:45→17:51)
--- NOTE | 2016-06-28 10:27 | RADRPT ---
PROCEDURE: Ultrasound four quadrants CLINICAL INDICATION: Fever, abdominal pain. Evaluate for ascites. TECHNIQUE: Sonographic evaluation of the four quadrants of the abdomen was performed. Petersen-scale imaging was utilized. Images were reviewed on a high-resolution PACS workstation. COMPARISON: Renal ultrasound dated 06/09/2016. FINDINGS: No ascites is seen. No free fluid is identified within any of the four quadrants of the abdominal p elvic cavity. There is no significant drainable fluid collection. IMPRESSION: 1. No significant ascites identified. RPTAT: [facility] Physician Marc Date Time Electronically viewed and signed by Physician Marc on 06/28/2016 10:26 /
[2016-06-28] MEDS: PHYTONADIONE 10 MG/ML INJ IM SCH (12:01)
[2016-06-28] MEDS: morphine 2 MG INJ IV PRN ×2 (12:01→22:58)
--- NOTE | 2016-06-28 15:30 | PN ---
Date/Time of Note Date/Time of Note DATE: 06/28/16 TIME: 15:25 Assessment/Plan VTE Prophylaxis VTE Prophylaxis Intervention: SCD's Lines/Catheters IV Catheter Type (from Nrs): PICC Line Central line still needed: Yes Urinary Cath still in place: Yes Reason Cath still needed: other (indicate) (PCP) Assessment/Plan Assessment/Plan Assessment/Plan Esophageal variceal bleeding/post EVL * Anemia secondary to above * Alcoholic cirrhosis * Post variceal bleeding/post EVL * Portal encephalopathy * Ascites/Neg U/S * Coagulopathy * Unsafe swallowing/failed swallow eval/high risk for aspiration * PEG and EGD today. VRE (+) will await antibiogram results Subjective 24 Hr Interval Summary Free Text/Dictation Course reviewed with nursing staff Patient remains confused,but son at bedside Patient's family who has been informed of the increased risk given the patient' s condition No significant ascites identified.by ultrasound PEG/EGD today VRE (+) Exam/Review of Systems Vital Signs Vitals Vital Signs Date Time Temp Pulse Resp B/P Pulse Ox O2 Delivery O2 Flow Rate FiO2 06/28/16 13:37 87 06/28/16 13:26 6.0 06/28/16 13:21 24 94 Nasal Cannula 06/28/16 12:37 97.4 117/74 Intake and Output 06/27/16 06/27/16 06/28/16 14:59 22:59 06:59 Intake Total 1000 ml 1000 ml 120 ml Output Total 1050 ml 750 ml 1150 ml Balance -50 ml 250 ml -1030 ml Exam Constitutional: non-verbal, obese Head: atraumatic, normocephalic Neck: non-tender, supple Respiratory: clear to auscultation, crackles/rales, diminished breath sounds, normal air movement, No wheezing Cardiovascular: nl pulses, regular rate and rhythm Gastrointestinal: , distended, soft, With bowel sounds No mass, No rebound or guarding, No tender Musculoskeletal: nl extremities to inspection Skin: nl turgor, No rash or lesions Lymph: nl lymph nodes Results Result Diagram: 06/28/16 04306/28/16 043 Results 24 hrs Laboratory Tests Test 06/27/16 19:45 06/28/16 04:30 Arterial Blood HCO3 16.6 L Arterial Blood Base Excess -6.4 L Arterial Blood Oxygen Saturation 94.7 L Adelso Test ACCEPTAB Arterial Blood Gas Puncture Site Right Radial Arterial Blood Carboxyhemoglobin 0.3 Arterial Blood Date Drawn 06/27/2016 7:55:47 PM Arterial Blood Methemoglobin 0.3 Arterial Blood pCO2 (Temp correct) 24.8 L Arterial Blood pH (Temp corrected) 7.443 Arterial Blood pO2 (Temp corrected) 82.3 Blood Gas A-a O2 Differential 167.2 H Blood Gas Modality NASAL CANNULA Blood Gas Notified Time 06/27/2016 8:05:30 PM Blood Gas Notified Whom [facility] Blood Gas Specimen Source Blood arterial Blood Gas Temperature 37.0 FiO2 39.0 Oxyhemoglobin Percent 94.1 Total Hemoglobin 9.3 L Activated Partial Thromboplast Time 33.6 Alanine Aminotransferase (ALT/SGPT) 20 Albumin 2.5 L Albumin/Globulin Ratio 0.62 Alkaline Phosphatase 112 Anion Gap 20 H Aspartate Amino Transf (AST/SGOT) 27 Basophils # 0.0 Basophils % 0.2 Blood Urea Nitrogen 39 H Calcium Level 7.8 L Carbon Dioxide Level 21 Chloride Level 116 H Creatinine 1.49 H Direct Bilirubin 0.00 Eosinophils # 0.0 Eosinophils % 0.2 Globulin 4.00 H Glucose Level 154 Hematocrit 26.6 L Hemoglobin 7.9 L INR International Normalized Ratio 1.36 Indirect Bilirubin 0.2 Lymphocytes # 0.5 L Lymphocytes % 8.3 L Mean Corpuscular Hemoglobin 26.5 L Mean Corpuscular Hemoglobin Concent 29.7 L Mean Corpuscular Volume 89.3 Mean Platelet Volume 11.3 H Monocytes # 0.2 L Monocytes % 4.4 Neutrophils # 4.7 Neutrophils % 85.8 H Nucleated Red Blood Cells # 0.0 Nucleated Red Blood Cells % 0.4 H Platelet Count 191 Potassium Level 3.6 Prothrombin Time 16.8 H Prothrombin Time Ratio 1.3 Red Blood Count 2.98 L Red Cell Distribution Width 18.9 H Sodium Level 153 H Total Bilirubin 0.2 Total Protein 6.5 Vancomycin Level Trough 19.0 White Blood Count 5.4 # Medications Medications Current Medications Ondansetron HCl (Zofran Inj) 4 mg Q6H PRN IV NAUSEA AND/OR VOMITING; Start 06/09 at 04:30 Dutasteride (Avodart) 0.5 mg AM PO Last administered on 06/27/16t 08:52; Admin Dose 0.5 MG; Start 06/09/16 at 09:00 Finasteride (Proscar) 5 mg AM PO Last administered on 06/27/16 08:53; Admin Dose 5 MG; Start 06/09/16 at 09:00 Levothyroxine Sodium (Synthroid) 50 mcg DAILY@06 PO Last administered on 06:29; Admin Dose 50 MCG; Start 06/09/16 at 06:00 IV Flush (NS 10 ml) 10 ml PRN PRN IV IV PROTOCOL; Start 06/09/16 at 17:00 Miscellaneous Information 1 ea NOTE XX ; Start 06/11/16 at 08:30 Rifaximin (Xifaxan) 550 mg BID PO Last administered on 06/27/16 23:02; Admin Dose 550 MG; Start 06/11/16 at 14:30 Pantoprazole (Protonix Iv) 40 mg BID@18 IV Last administered on 06/28/16 07 :01; Admin Dose 40 MG; Start 06/11/16 at 18:00 Eye Lubricant (Artificial Tears Oph) 2 drop QID BOTH EYES Last administered on 06/28/16 13:12; Admin Dose 2 DROP; Start 06/12/16 at 13:00 Hydralazine HCl (Apresoline) 10 mg Q2H PRN IV SBP>170; Start 06/12/16 at 17:00 Metoprolol Tartrate (Lopressor) 5 mg Q6H PRN IV HR>130 Last administered on 17:40; Admin Dose 5 MG; Start 06/14/16 at 09:00 Metoprolol Tartrate (Lopressor) 25 mg BID PO Last administered on 06/27/16 08: 53; Admin Dose 25 MG; Start 06/14/16 at 21:00 Acetaminophen (Tylenol Liquid) 650 mg Q4H PRN NGT PAIN AND OR ELEVATED TEMP Last administered on 06/27/16 01:05; Admin Dose 650 MG; Start 06/17/16 at 12:30 Amiodarone HCl (Cordarone) 200 mg DAILY NGT Last administered on 06/27/16 08: 53; Admin Dose 200 MG; Start 06/24/16 at 09:00 Lactulose (Enulose) 30 gm QID PO Last administered on 06/27/16 23:02; Admin Dose 20 GM; Start 06/24/16 at 21:30 Febuxostat (Uloric) 40 mg DAILY PO Last administered on 06/27/16 08:52; Admin Dose 40 MG; Start 06/25/16 at 15:00 Colchicine (Colchicine) 0.6 mg TID PRN PO gout pain Last administered on 17:41; Admin Dose 0.6 MG; Start 06/25/16 at 21:00 Lorazepam (Ativan) 1 mg Q6H PRN IV ANXIETY; Start 06/25/16 at 18:30 Morphine Sulfate 2 mg 2 mg Q6H PRN IV PAIN LEVEL 7-10 Last administered on 06/28 12:01; Admin Dose 2 MG; Start 06/25/16 at 18:30 Meropenem (Merrem 500 Mg/ 100 ml (Pmx)) 100 ml @ 200 mls/hr Q12 IVPB Last administered on 06/28/16 09:43; Admin Dose 200 MLS/HR; Start 06/26/16 at 17:00 Phytonadione (Vitamin K) 10 mg DAILY IM Last administered on 06/28/16 12:01; Admin Dose 10 MG; Start 06/27/16 at 09:00 Prednisone 40 mg 40 mg DAILY GTB Last administered on 06/27/16 15:37; Admin Dose 40 MG; Start 06/27/16 at 14:30 Potassium Chloride/Dextrose 1,000 ml @ 50 mls/hr Q20H IV Last administered on 06/28/16 07:00; Admin Dose 50 MLS/HR; Start 06/27/16 at 15:30 Linezolid (Zyvox 600mg/D5W (Pmx)) 300 ml @ 300 mls/hr Q12 IVPB Last administered on 06/28/16 09:43; Admin Dose 300 MLS/HR; Start 06/28/16 at 00:30 ; Stop 07/05/16 at 12:00 JAC DAVIS MD Jun 28, 2016 15:30
[2016-06-28] MEDS ORDERED: METOPROLOL 5 MG INJ IV PRN (16:00)
--- NOTE | 2016-06-28 17:05 | CONS ---
Date/Time of Note Date/Time of Note DATE: 06/28/16 TIME: 16:59 Assessment/Plan Assessment/Plan Chief Complaint/Hosp Course Anemia - COMPLEX, MULTIFACTORIAL WITH COMPONENT ACD, ACUTE BLOOD LOSS AND SEVERE IRON DEFICIENCY IN THE PAST * Esophageal variceal bleeding/post EVL * CONT TO MONITOR BLOOD COUNT CLOSELY * OBSERVE FOR BLEEDING AND HEMOLYSIS * PRBC NEEDED Septicemia with bandemia and fever. Acute gout. Alcoholic cirrhosis * Post variceal bleeding/post EVL * Portal encephalopathy * Ascites * Unsafe swallowing/failed swallow eval/high risk for aspiration * Family now agreeable to EGD plus PEG. Will need to have paracenteses prior to procedure. Family was informed of increased risk given comorbidities Coagulopathy VIT K MAY NEEDS FFP PRIOR TO PROCEDURE FMF Problems: Consultation Date/Type/Reason Admit Date/Time Jun 09, 2016 at 04:01 Initial Consult Date 06/09/16 Type of Consultation: [facility] Referring Provider: MAURY BENITEZ MD 24 HR Interval Summary Free Text/Dictation The patient is scheduled to have a paracentesis of ascites tomorrow. He has also been scheduled for an EGD tomorrow after the paracentesis. The patient has had a temperature today of 102 while on meropenem and vancomycin. The patient has also had diarrhea. His cultures recently reviewed have been negative with a negative Clostridium difficile, a negative MRSA, but his feces are positive for vancomycin-resistant enterococci that is certainly the time at which this organism should make its appearance and become pathogenic. COUNT SL DOWN NO BLEEDING Exam/Review of Systems Vital Signs Vitals Vital Signs Date Time Temp Pulse Resp B/P Pulse Ox O2 Delivery O2 Flow Rate FiO2 06/28/16 16:41 88 20 97 Nasal Cannula 6.0 06/28/16 15:45 97.6 123/62 Intake and Output 06/27/16 06/27/16 06/28/16 15:00 23:00 07:00 Intake Total 1000 ml 1000 ml 120 ml Output Total 1050 ml 750 ml 1150 ml Balance -50 ml 250 ml -1030 ml Exam Constitutional: non-verbal, obese Head: atraumatic, normocephalic Neck: non-tender, supple Respiratory: clear to auscultation, crackles/rales, diminished breath sounds, normal air movement, No wheezing Cardiovascular: nl pulses, regular rate and rhythm Gastrointestinal: ascites, distended, soft, No mass, No rebound or guarding, No tender Musculoskeletal: nl extremities to inspection Skin: nl turgor, No rash or lesions Lymph: nl lymph nodes Results Result Diagram: 06/28/16 0430 06/28/16 0430 Results 24 hrs Laboratory Tests Test 06/27/16 19:45 06/28/16 04:30 Arterial Blood HCO3 16.6 L Arterial Blood Base Excess -6.4 L Arterial Blood Oxygen Saturation 94.7 L Adelso Test ACCEPTAB Arterial Blood Gas Puncture Site Right Radial Arterial Blood Carboxyhemoglobin 0.3 Arterial Blood Date Drawn 06/27/2016 7:55:47 PM Arterial Blood Methemoglobin 0.3 Arterial Blood pCO2 (Temp correct) 24.8 L Arterial Blood pH (Temp corrected) 7.443 Arterial Blood pO2 (Temp corrected) 82.3 Blood Gas A-a O2 Differential 167.2 H Blood Gas Modality NASAL CANNULA Blood Gas Notified Time 06/27/2016 8:05:30 PM Blood Gas Notified Whom [facility] Blood Gas Specimen Source Blood arterial Blood Gas Temperature 37.0 FiO2 39.0 Oxyhemoglobin Percent 94.1 Total Hemoglobin 9.3 L Activated Partial Thromboplast Time 33.6 Alanine Aminotransferase (ALT/SGPT) 20 Albumin 2.5 L Albumin/Globulin Ratio 0.62 Alkaline Phosphatase 112 Anion Gap 20 H Aspartate Amino Transf (AST/SGOT) 27 Basophils # 0.0 Basophils % 0.2 Blood Urea Nitrogen 39 H Calcium Level 7.8 L Carbon Dioxide Level 21 Chloride Level 116 H Creatinine 1.49 H Direct Bilirubin 0.00 Eosinophils # 0.0 Eosinophils % 0.2 Globulin 4.00 H Glucose Level 154 Hematocrit 26.6 L Hemoglobin 7.9 L INR International Normalized Ratio 1.36 Indirect Bilirubin 0.2 Lymphocytes # 0.5 L Lymphocytes % 8.3 L Mean Corpuscular Hemoglobin 26.5 L Mean Corpuscular Hemoglobin Concent 29.7 L Mean Corpuscular Volume 89.3 Mean Platelet Volume 11.3 H Monocytes # 0.2 L Monocytes % 4.4 Neutrophils # 4.7 Neutrophils % 85.8 H Nucleated Red Blood Cells # 0.0 Nucleated Red Blood Cells % 0.4 H Platelet Count 191 Potassium Level 3.6 Prothrombin Time 16.8 H Prothrombin Time Ratio 1.3 Red Blood Count 2.98 L Red Cell Distribution Width 18.9 H Sodium Level 153 H Total Bilirubin 0.2 Total Protein 6.5 Vancomycin Level Trough 19.0 White Blood Count 5.4 # Medications Medications Current Medications Ondansetron HCl (Zofran Inj) 4 mg Q6H PRN IV NAUSEA AND/OR VOMITING; Start 06/09 at 04:30 Dutasteride (Avodart) 0.5 mg AM PO Last administered on 06/27/16 08:52; Admin Dose 0.5 MG; Start 06/09/16 at 09:00 Finasteride (Proscar) 5 mg AM PO Last administered on 06/27/16 08:53; Admin Dose 5 MG; Start 06/09/16 at 09:00 Levothyroxine Sodium (Synthroid) 50 mcg DAILY@06 PO Last administered on 06:29; Admin Dose 50 MCG; Start 06/09/16 at 06:00 IV Flush (NS 10 ml) 10 ml PRN PRN IV IV PROTOCOL; Start 06/09/16 at 17:00 Miscellaneous Information 1 ea NOTE XX ; Start 06/11/16 at 08:30 Rifaximin (Xifaxan) 550 mg BID PO Last administered on 06/27/16 23:02; Admin Dose 550 MG; Start 06/11/16 at 14:30 Pantoprazole (Protonix Iv) 40 mg BID@06,18 IV Last administered on 06/28/16 07 :01; Admin Dose 40 MG; Start 06/11/16 at 18:00 Eye Lubricant (Artificial Tears Oph) 2 drop QID BOTH EYES Last administered on 06/28/16 13:12; Admin Dose 2 DROP; Start 06/12/16 at 13:00 Hydralazine HCl (Apresoline) 10 mg Q2H PRN IV SBP>170; Start 06/12/16 at 17:00 Metoprolol Tartrate (Lopressor) 25 mg BID PO Last administered on 06/27/16 08: 53; Admin Dose 25 MG; Start 06/14/16 at 21:00 Acetaminophen (Tylenol Liquid) 650 mg Q4H PRN NGT PAIN AND OR ELEVATED TEMP Last administered on 06/27/16 01:05; Admin Dose 650 MG; Start 06/17/16 at 12:30 Amiodarone HCl (Cordarone) 200 mg DAILY NGT Last administered on 06/27/16 08: 53; Admin Dose 200 MG; Start 06/24/16 at 09:00 Lactulose (Enulose) 30 gm QID PO Last administered on 06/27/16 23:02; Admin Dose 20 GM; Start 06/24/16 at 21:30 Febuxostat (Uloric) 40 mg DAILY PO Last administered on 06/27/16 08:52; Admin Dose 40 MG; Start 06/25/16 at 15:00 Colchicine (Colchicine) 0.6 mg TID PRN PO gout pain Last administered on 17:41; Admin Dose 0.6 MG; Start 06/25/16 at 21:00 Lorazepam (Ativan) 1 mg Q6H PRN IV ANXIETY; Start 06/25/16 at 18:30 Morphine Sulfate 2 mg 2 mg Q6H PRN IV PAIN LEVEL 7-10 Last administered on 06/28 12:01; Admin Dose 2 MG; Start 06/25/16 at 18:30 Meropenem (Merrem 500 Mg/ 100 ml (Pmx)) 100 ml @ 200 mls/hr Q12 IVPB Last administered on 06/28/16 09:43; Admin Dose 200 MLS/HR; Start 06/26/16 at 17:00 Phytonadione (Vitamin K) 10 mg DAILY IM Last administered on 06/28/16 12:01; Admin Dose 10 MG; Start 06/27/16 at 09:00 Prednisone 40 mg 40 mg DAILY GTB Last administered on 06/27/16 15:37; Admin Dose 40 MG; Start 06/27/16 at 14:30 Potassium Chloride/Dextrose 1,000 ml @ 50 mls/hr Q20H IV Last administered on 06/28/16 07:00; Admin Dose 50 MLS/HR; Start 06/27/16 at 15:30 Linezolid (Zyvox 600mg/D5W (Pmx)) 300 ml @ 300 mls/hr Q12 IVPB Last administered on 06/28/16 09:43; Admin Dose 300 MLS/HR; Start 06/28/16 at 00:30 ; Stop 07/05/16 at 12:00 Metoprolol Tartrate (Lopressor) 5 mg Q4H PRN IV HR>110 Last administered on t 15:37; Admin Dose 5 MG; Start 06/28/16 at 16:00 FAYE RUSHING MD Jun 28, 2016 17:05
--- NOTE | 2016-06-28 17:14 | CONS ---
Date/Time of Note Date/Time of Note DATE: 06/28/16 TIME: 17:09 Assessment/Plan Assessment/Plan Chief Complaint/Hosp Course IMPRESSION: 1. Paroxysmal atrial fibrillation/atrial flutter-having recurrently today in setting of holding of amio/BB for endoscopy 2. Abnormal electrocardiogram. Assess for acute coronary syndrome. 3. Hypotension, now improved. 4. Gastrointestinal bleed. 5. Cirrhosis. 6. Encephalopathy-ongoing 7. Anemia, severe, status post transfusions. 8. Hypernatremia. 9. Coagulopathy 10.Fever 11.PNA 12.ARF Recc: -Tele -Continue amiodarone PO but increase back to BID when patient is again able to take po's -Continue BB as tolerated -No asa/systemic anti-coag secondary to anemia/GIB -Follow MS closely -Follow Hgb closely -Free water for elevated na -F/U cx data and continue abx's -Holding lasix given development of ARF -Will give IVP digoxin to improve HR control and use PRN IVP BB while patient is NPO Problems: Consultation Date/Type/Reason Admit Date/Time Jun 09, 2016 at 04:01 Initial Consult Date 06/09/16 Type of Consultation: Cardiology Reason for Consultation AF Referring Provider: MAURY BENITEZ MD Exam/Review of Systems Vital Signs Vitals Vital Signs Date Time Temp Pulse Resp B/P Pulse Ox O2 Delivery O2 Flow Rate FiO2 06/28/16 16:41 88 20 97 Nasal Cannula 6.0 06/28/16 15:45 97.6 123/62 Intake and Output 06/27/16 06/27/16 06/28/16 15:00 23:00 07:00 Intake Total 1000 ml 1000 ml 120 ml Output Total 1050 ml 750 ml 1150 ml Balance -50 ml 250 ml -1030 ml Exam Review of Systems: CONSTITUTIONAL: No fevers, chills. PULMONARY: No sob CARDIOVASCULAR: No chest pain/palpitations GASTROINTESTINAL: No nausea/vomiting. GENITOURINARY: No hematuria/dysuria. MUSCULOSKELETAL: No myagias/arthalgias. PSYCHIATRIC: The patient denies depression. NEUROLOGIC: lethargic Constitutional: other Psych: no complaints Head: normocephalic ENMT: mucosa pink and moist Neck: jvd (9cm water), supple Respiratory: diminished breath sounds Cardiovascular: irregular rhythm (tachycardic) Gastrointestinal: non-tender, soft Musculoskeletal: muscle tone (normal) Extremities: edema (trace) Neurological: confused, lethargic Results Result Diagram: 06/28/16 0430 06/28/16 0430 Results 24 hrs Laboratory Tests Test 06/27/16 19:45 06/28/16 04:30 Arterial Blood HCO3 16.6 L Arterial Blood Base Excess -6.4 L Arterial Blood Oxygen Saturation 94.7 L Adelso Test ACCEPTAB Arterial Blood Gas Puncture Site Right Radial Arterial Blood Carboxyhemoglobin 0.3 Arterial Blood Date Drawn 06/27/2016 7:55:47 PM Arterial Blood Methemoglobin 0.3 Arterial Blood pCO2 (Temp correct) 24.8 L Arterial Blood pH (Temp corrected) 7.443 Arterial Blood pO2 (Temp corrected) 82.3 Blood Gas A-a O2 Differential 167.2 H Blood Gas Modality NASAL CANNULA Blood Gas Notified Time 06/27/2016 8:05:30 PM Blood Gas Notified Whom [facility] Blood Gas Specimen Source Blood arterial Blood Gas Temperature 37.0 FiO2 39.0 Oxyhemoglobin Percent 94.1 Total Hemoglobin 9.3 L Activated Partial Thromboplast Time 33.6 Alanine Aminotransferase (ALT/SGPT) 20 Albumin 2.5 L Albumin/Globulin Ratio 0.62 Alkaline Phosphatase 112 Anion Gap 20 H Aspartate Amino Transf (AST/SGOT) 27 Basophils # 0.0 Basophils % 0.2 Blood Urea Nitrogen 39 H Calcium Level 7.8 L Carbon Dioxide Level 21 Chloride Level 116 H Creatinine 1.49 H Direct Bilirubin 0.00 Eosinophils # 0.0 Eosinophils % 0.2 Globulin 4.00 H Glucose Level 154 Hematocrit 26.6 L Hemoglobin 7.9 L INR International Normalized Ratio 1.36 Indirect Bilirubin 0.2 Lymphocytes # 0.5 L Lymphocytes % 8.3 L Mean Corpuscular Hemoglobin 26.5 L Mean Corpuscular Hemoglobin Concent 29.7 L Mean Corpuscular Volume 89.3 Mean Platelet Volume 11.3 H Monocytes # 0.2 L Monocytes % 4.4 Neutrophils # 4.7 Neutrophils % 85.8 H Nucleated Red Blood Cells # 0.0 Nucleated Red Blood Cells % 0.4 H Platelet Count 191 Potassium Level 3.6 Prothrombin Time 16.8 H Prothrombin Time Ratio 1.3 Red Blood Count 2.98 L Red Cell Distribution Width 18.9 H Sodium Level 153 H Total Bilirubin 0.2 Total Protein 6.5 Vancomycin Level Trough 19.0 White Blood Count 5.4 # Medications Medications Current Medications Ondansetron HCl (Zofran Inj) 4 mg Q6H PRN IV NAUSEA AND/OR VOMITING; Start 06/09 at 04:30 Dutasteride (Avodart) 0.5 mg AM PO Last administered on 06/27/16 08:52; Admin Dose 0.5 MG; Start 06/09/16 at 09:00 Finasteride (Proscar) 5 mg AM PO Last administered on 06/27/16 08:53; Admin Dose 5 MG; Start 06/09/16 at 09:00 Levothyroxine Sodium (Synthroid) 50 mcg DAILY@06 PO Last administered on 06:29; Admin Dose 50 MCG; Start 06/09/16 at 06:00 IV Flush (NS 10 ml) 10 ml PRN PRN IV IV PROTOCOL; Start 06/09/16 at 17:00 Miscellaneous Information 1 ea NOTE XX ; Start 06/11/16 at 08:30 Rifaximin (Xifaxan) 550 mg BID PO Last administered on 06/27/16 23:02; Admin Dose 550 MG; Start 06/11/16 at 14:30 Pantoprazole (Protonix Iv) 40 mg BID@06,18 IV Last administered on 06/28/16 07 :01; Admin Dose 40 MG; Start 06/11/16 at 18:00 Eye Lubricant (Artificial Tears Oph) 2 drop QID BOTH EYES Last administered on 06/28/16 13:12; Admin Dose 2 DROP; Start 06/12/16 at 13:00 Hydralazine HCl (Apresoline) 10 mg Q2H PRN IV SBP>170; Start 06/12/16 at 17:00 Metoprolol Tartrate (Lopressor) 25 mg BID PO Last administered on 06/27/16 08: 53; Admin Dose 25 MG; Start 06/14/16 at 21:00 Acetaminophen (Tylenol Liquid) 650 mg Q4H PRN NGT PAIN AND OR ELEVATED TEMP Last administered on 06/27/16 01:05; Admin Dose 650 MG; Start 06/17/16 at 12:30 Amiodarone HCl (Cordarone) 200 mg DAILY NGT Last administered on 06/27/16 08: 53; Admin Dose 200 MG; Start 06/24/16 at 09:00 Lactulose (Enulose) 30 gm QID PO Last administered on 06/27/16 23:02; Admin Dose 20 GM; Start 06/24/16 at 21:30 Febuxostat (Uloric) 40 mg DAILY PO Last administered on 06/27/16 08:52; Admin Dose 40 MG; Start 06/25/16 at 15:00 Colchicine (Colchicine) 0.6 mg TID PRN PO gout pain Last administered on 17:41; Admin Dose 0.6 MG; Start 06/25/16 at 21:00 Lorazepam (Ativan) 1 mg Q6H PRN IV ANXIETY; Start 06/25/16 at 18:30 Morphine Sulfate 2 mg 2 mg Q6H PRN IV PAIN LEVEL 7-10 Last administered on 06/28 12:01; Admin Dose 2 MG; Start 06/25/16 at 18:30 Meropenem (Merrem 500 Mg/ 100 ml (Pmx)) 100 ml @ 200 mls/hr Q12 IVPB Last administered on 06/28/16 09:43; Admin Dose 200 MLS/HR; Start 06/26/16 at 17:00 Phytonadione (Vitamin K) 10 mg DAILY IM Last administered on 06/28/16 12:01; Admin Dose 10 MG; Start 06/27/16 at 09:00 Prednisone 40 mg 40 mg DAILY GTB Last administered on 06/27/16 15:37; Admin Dose 40 MG; Start 06/27/16 at 14:30 Potassium Chloride/Dextrose 1,000 ml @ 50 mls/hr Q20H IV Last administered on 06/28/16 07:00; Admin Dose 50 MLS/HR; Start 06/27/16 at 15:30 Linezolid (Zyvox 600mg/D5W (Pmx)) 300 ml @ 300 mls/hr Q12 IVPB Last administered on 06/28/16 09:43; Admin Dose 300 MLS/HR; Start 06/28/16 at 00:30 ; Stop 07/05/16 at 12:00 Metoprolol Tartrate (Lopressor) 5 mg Q4H PRN IV HR>110 Last administered on 3/ 20/17at 15:37; Admin Dose 5 MG; Start 06/28/16 at 16:00 ANGELES ODONNELL Jun 28, 2016 17:14
[2016-06-28] MEDS: DIGOXIN 500 MCG INJ IV SCH (18:09)
[2016-06-28] MEDS ORDERED: PROPOFOL 20 ML ONE (18:52)
[2016-06-28] MEDS ORDERED: LIDOCAINE 2% (SDV) 5 ML INJ ONE (18:52)
[2016-06-28] MEDS ORDERED: CEFAZOLIN 2 GM/50 ML (PMX) 50 ML IVPB ONE (19:15)
[2016-06-28] MEDS ORDERED: SOD CHLORIDE 0.9% 250 ML IV ONE (20:30)
[2016-06-28] MEDS ORDERED: FENTAnyl 25 MCG IV PRN (20:30)
[2016-06-28] MEDS ORDERED: ONDANSETRON 4 MG INJ IV PRN (20:30)
[2016-06-28] MEDS ORDERED: LABETALOL 5 MG IV PRN (20:30)
--- NOTE | 2016-06-28 20:55 | PN ---
DATE: 06/28/2016 SUBJECTIVE: No acute changes. The patient is more awake today, responsive, follows commands. He i s lying comfortably in bed. No fevers. ____ weight loss since yesterday. LABORATORY DATA: WBC today 5.4, H and H 7.9 and 26.6, platelets 191, neutrophils 85.8. No bands. BUN 39, creatinine 1.49. DIAGNOSTICS: The patient had abdominal ultrasound this morning that revealed no significant ascites . INDWELLINGS: NG tube, Crandall catheter, PICC line. ANTIMICROBIALS: 1. Meropenem. 2. Status post vancomycin. 3. Zyvox. 4. Merrem. PHYSICAL EXAMINATION: GENERAL: This is a well-developed, elderly [place] man who is alert, in no distress. HEENT: Head atraumatic, normocephalic. Sclerae anicteric. Buccal mucosa dry. CHEST: Rise symmetrical. Breath sounds diminished to bases. HEART: S1, S2. ABDOMEN: Soft, bowel tones present. EXTREMITIES: Without cyanosis. ASSESSMENT: 1. Resolving sepsis. 2. Resolving encephalopathy. 3. Alcoholic liver cirrhosis. 4. Dysphagia. 5. Acute renal failure. 6. History of familial Mediterranean fever. PLAN: The patient remains stable, overall improving. He is scheduled for PEG placement today. Uri ne culture pending. We will continue him on current antimicrobials. Continue anti-aspiration measu re. Above was discussed with patient and granddaughter at bedside. Dictated By: STACIE TAMEZ NEUROSURGERY PHYSICIAN for RILEY CUENCA MD NI/NTS Conf#: [id number] DID#: [id number] CC: MONTY SEARS MD;*EndCC*
[2016-06-29] VITALS (10 sets, daily range): BP systolic 91–119; BP diastolic 53–62; PULSE 64–84; RESP 15–18
[2016-06-29] MEDS: DIGOXIN 500 MCG INJ IV SCH (00:22)
[2016-06-29] MEDS: ALBUTEROL/IPRATROPIUM (NEB) 3 ML AMP HHN SCH ×6 (01:21→22:57)
[2016-06-29] MEDS: D5W + KCL 20 MEQ 1,000 ML IV SCH (07:30)
[2016-06-29] MEDS: PANTOPRAZOLE 40 MG INJ IV SCH ×2 (07:49→17:32)
--- NOTE | 2016-06-29 08:56 | CONS ---
Date/Time of Note Date/Time of Note DATE: 06/29/16 TIME: 08:53 Assessment/Plan Assessment/Plan Additional Assessment/Plan 1. Paroxysmal atrial fibrillation/atrial flutter, now back in sinus rhythm and remains thus - now in sinus - better rate controlled now. 2. REC NSVT - add BB as toleated - BEA stable now - no new episodes now - no ectopy noted today. 3. Hypotension, now improved- on Rx - better overall. - STABLE 4. Gastrointestinal bleed- NG tube in - GI team follows 5. Cirrhosis- avoid hepatotoxic meds - GI team follows - more alert today 6. Encephalopathy-ongoing 7. Anemia, severe, status post transfusions- H/H stable. 8. Hypernatremia. 9. Coagulopathy 10.Fever 11.PNA- on anti-Bx, con't med rx 12.ARF Consultation Date/Type/Reason Admit Date/Time Jun 09, 2016 at 04:01 Initial Consult Date 06/09/16 Type of Consultation: Cardiology Referring Provider: MAURY BENITEZ MD 24 HR Interval Summary Free Text/Dictation No acute change - pt more alert today - will adjust Rx as needed. Medications reviewed. ROS: No fever, no chills, no nausea, no vomiting, no diarrhea/constipation No recent weight changes No chest pain, no PND, no orthopnea No dizziness, blurred vision No thirst, no heat or cold intolerance Exam/Review of Systems Vital Signs Vitals Vital Signs Date Time Temp Pulse Resp B/P Pulse Ox O2 Delivery O2 Flow Rate FiO2 06/29/16 04:19 67 06/29/16 04:00 97.5 15 104/56 93 06/29/16 01:21 Nasal Cannula 2.0 Intake and Output 06/28/16 06/28/16 06/29/16 15:00 23:00 07:00 Intake Total 0 ml Output Total 350 ml 200 ml Balance -350 ml -200 ml Exam General: WN/WD/NAD, AOx 1-2 - more alert today HEENT: Unicetric/atraumatic/EOMI (follows commands) NECK: JVD elevated, no thyromegaly Lymph: no lymphadenopathy HEART: regular with no S3, II/ systolic murmur at apex LUNGS: Coarse sounds ABD: soft, NT, ND, +BS : Intact Neuro: non focal SKIN: chronic changes EXT: trace edema Results Result Diagram: 06/28/1642906/28/16 043 Medications Medications Current Medications Ondansetron HCl (Zofran Inj) 4 mg Q6H PRN IV NAUSEA AND/OR VOMITING; Start 06/09 at 04:30 Dutasteride (Avodart) 0.5 mg AM PO Last administered on 06/27/16 08:52; Admin Dose 0.5 MG; Start 06/09/16 at 09:00 Finasteride (Proscar) 5 mg AM PO Last administered on 06/27/16 08:53; Admin Dose 5 MG; Start 06/09/16 at 09:00 Levothyroxine Sodium (Synthroid) 50 mcg DAILY@06 PO Last administered on 06:29; Admin Dose 50 MCG; Start 06/09/16 at 06:00 IV Flush (NS 10 ml) 10 ml PRN PRN IV IV PROTOCOL; Start 06/09/16 at 17:00 Miscellaneous Information 1 ea NOTE XX ; Start 06/11/16 at 08:30 Rifaximin (Xifaxan) 550 mg BID PO Last administered on 06/28/16 22:55; Admin Dose 550 MG; Start 06/11/16 at 14:30 Pantoprazole (Protonix Iv) 40 mg BID@06,18 IV Last administered on 06/29/16 07 :49; Admin Dose 40 MG; Start 06/11/16 at 18:00 Eye Lubricant (Artificial Tears Oph) 2 drop QID BOTH EYES Last administered on 06/29/16 00:00; Admin Dose 2 DROP; Start 06/12/16 at 13:00 Hydralazine HCl (Apresoline) 10 mg Q2H PRN IV SBP>170; Start 06/12/16 at 17:00 Metoprolol Tartrate (Lopressor) 25 mg BID PO Last administered on 06/28/16 22: 56; Admin Dose 25 MG; Start 06/14/16 at 21:00 Acetaminophen (Tylenol Liquid) 650 mg Q4H PRN NGT PAIN AND OR ELEVATED TEMP Last administered on 06/27/16 01:05; Admin Dose 650 MG; Start 06/17/16 at 12:30 Lactulose (Enulose) 30 gm QID PO Last administered on 06/28/16 22:57; Admin Dose 30 GM; Start 06/24/16 at 21:30 Febuxostat (Uloric) 40 mg DAILY PO Last administered on 06/27/16 08:52; Admin Dose 40 MG; Start 06/25/16 at 15:00 Colchicine (Colchicine) 0.6 mg TID PRN PO gout pain Last administered on 17:41; Admin Dose 0.6 MG; Start 06/25/16 at 21:00 Lorazepam (Ativan) 1 mg Q6H PRN IV ANXIETY; Start 06/25/16 at 18:30 Morphine Sulfate 2 mg 2 mg Q6H PRN IV PAIN LEVEL 7-10 Last administered on 06/28 22:58; Admin Dose 2 MG; Start 06/25/16 at 18:30 Meropenem (Merrem 500 Mg/ 100 ml (Pmx)) 100 ml @ 200 mls/hr Q12 IVPB Last administered on 06/29/16 00:00; Admin Dose 200 MLS/HR; Start 06/26/16 at 17:00 Phytonadione (Vitamin K) 10 mg DAILY IM Last administered on 06/28/16 12:01; Admin Dose 10 MG; Start 06/27/16 at 09:00 Prednisone 40 mg 40 mg DAILY GTB Last administered on 06/27/16 15:37; Admin Dose 40 MG; Start 06/27/16 at 14:30 Potassium Chloride/Dextrose 1,000 ml @ 50 mls/hr Q20H IV Last administered on 06/28/16 07:00; Admin Dose 50 MLS/HR; Start 06/27/16 at 15:30 Linezolid (Zyvox 600mg/D5W (Pmx)) 300 ml @ 300 mls/hr Q12 IVPB Last administered on 06/29/16 00:00; Admin Dose 300 MLS/HR; Start 06/28/16 at 00:30 ; Stop 07/05/16 at 12:00 Metoprolol Tartrate (Lopressor) 5 mg Q4H PRN IV HR>110 Last administered on 15:37; Admin Dose 5 MG; Start 06/28/16 at 16:00 Amiodarone HCl (Cordarone) 200 mg BID NGT Last administered on 3/20/17at 22:55 ; Admin Dose 200 MG; Start 06/28/16 at 21:00 BLADIMIR DEAN MD Jun 29, 2016 08:56
[2016-06-29] MEDS: METOPROLOL 25 MG TAB PO SCH ×2 (09:00→21:00)
[2016-06-29] MEDS: LEVOTHYROXINE 50 MCG TAB PO SCH (09:06)
[2016-06-29] MEDS: FEBUXOSTAT 40 MG TABLET PO SCH (09:06)
[2016-06-29] MEDS: LACTULOSE 30ML CUP PO SCH ×4 (09:06→21:00)
[2016-06-29] MEDS: DUTASTERIDE 0.5 MG CAP PO SCH (09:07)
[2016-06-29] MEDS: AMIODARONE 200 MG TAB NGT SCH ×2 (09:07→20:59)
[2016-06-29] MEDS: PHYTONADIONE 10 MG/ML INJ IM SCH (09:07)
[2016-06-29] MEDS: predniSONE 20 MG TAB GTB SCH (09:07)
[2016-06-29] MEDS: RIFAXIMIN 550 MG TAB PO SCH ×2 (09:07→21:00)
[2016-06-29] MEDS: FINASTERIDE 5 MG TAB PO SCH (09:07)
[2016-06-29] MEDS: ARTIFICIAL TEARS 15 ML OPH BOTH EYES SCH ×5 (09:08→21:00)
[2016-06-29] MEDS: MEROPENEM 500 MG/100 ML (PMX) 100 ML IVPB SCH ×3 (09:08→21:00)
[2016-06-29] MEDS: LINEZOLID 600 MG/D5W (PMX) 300 ML IVPB SCH ×3 (09:08→21:00)
--- NOTE | 2016-06-29 12:00 | PN ---
Date/Time of Note Date/Time of Note DATE: 06/29/16 TIME: 11:45 Assessment/Plan VTE Prophylaxis VTE Prophylaxis Intervention: SCD's Lines/Catheters IV Catheter Type (from Nrs): PICC Line Central line still needed: Yes Urinary Cath still in place: Yes Reason Cath still needed: other (indicate) (incontinent) Assessment/Plan Assessment/Plan Assessment/Plan Esophageal variceal bleeding/post EVL * Anemia secondary to above * Alcoholic cirrhosis * Post variceal bleeding/post EVL * Portal encephalopathy * Ascites/Neg U/S * Coagulopathy * Unsafe swallowing/failed swallow eval/high risk for aspiration * Post uneventful PEG/Tolerating feedings VRE (+) will await antibiogram results Plan : continue tube feeding with flushes every 8 hours tolerating well monitor for bleeding Subjective 24 Hr Interval Summary Free Text/Dictation Course reviewed with nursing staff Patient more alert today S/P PEG placement ,on tube feeding tolerating well ,no residuals VRE (+) no fever ,no chills, no vomiting Exam/Review of Systems Vital Signs Vitals Vital Signs Date Time Temp Pulse Resp B/P Pulse Ox O2 Delivery O2 Flow Rate FiO2 06/29/16 09:00 60 24 94 21 06/29/16 04:00 97.5 104/56 06/29/16 01:21 Nasal Cannula 2.0 Intake and Output 06/28/16 06/28/16 06/29/16 15:00 23:00 07:00 Intake Total 0 ml Output Total 350 ml 200 ml Balance -350 ml -200 ml Exam Constitutional: , obese Head: atraumatic, normocephalic Neck: non-tender, supple Cardiovascular: nl pulses, regular rate and rhythm Gastrointestinal: , distended, soft, With bowel sounds,PEG in placed,no bleeding No mass, No rebound or guarding, Non tender Musculoskeletal: nl extremities to inspection Skin: nl turgor, No rash or lesions Results Result Diagram: 06/28/1642906/28/16429 Medications Medications Current Medications Ondansetron HCl (Zofran Inj) 4 mg Q6H PRN IV NAUSEA AND/OR VOMITING; Start 06/09 at 04:30 Dutasteride (Avodart) 0.5 mg AM PO Last administered on 06/29/16t 09:07; Admin Dose 0.5 MG; Start 06/09/16 at 09:00 Finasteride (Proscar) 5 mg AM PO Last administered on 06/29/16 09:07; Admin Dose 5 MG; Start 06/09/16 at 09:00 Levothyroxine Sodium (Synthroid) 50 mcg DAILY@06 PO Last administered on 09:06; Admin Dose 50 MCG; Start 06/09/16 at 06:00 IV Flush (NS 10 ml) 10 ml PRN PRN IV IV PROTOCOL; Start 06/09/16 at 17:00 Miscellaneous Information 1 ea NOTE XX ; Start 06/11/16 at 08:30 Rifaximin (Xifaxan) 550 mg BID PO Last administered on 06/29/16 09:07; Admin Dose 550 MG; Start 06/11/16 at 14:30 Pantoprazole (Protonix Iv) 40 mg BID@18 IV Last administered on 06/29/16 07 :49; Admin Dose 40 MG; Start 06/11/16 at 18:00 Eye Lubricant (Artificial Tears Oph) 2 drop QID BOTH EYES Last administered on 06/29/16 09:08; Admin Dose 2 DROP; Start 06/12/16 at 13:00 Hydralazine HCl (Apresoline) 10 mg Q2H PRN IV SBP>170; Start 06/12/16 at 17:00 Metoprolol Tartrate (Lopressor) 25 mg BID PO Last administered on 06/28/16 22: 56; Admin Dose 25 MG; Start 06/14/16 at 21:00 Acetaminophen (Tylenol Liquid) 650 mg Q4H PRN NGT PAIN AND OR ELEVATED TEMP Last administered on 06/27/16 01:05; Admin Dose 650 MG; Start 06/17/16 at 12:30 Lactulose (Enulose) 30 gm QID PO Last administered on 06/29/16 09:06; Admin Dose 30 GM; Start 06/24/16 at 21:30 Febuxostat (Uloric) 40 mg DAILY PO Last administered on 06/29/16 09:06; Admin Dose 40 MG; Start 06/25/16 at 15:00 Colchicine (Colchicine) 0.6 mg TID PRN PO gout pain Last administered on 17:41; Admin Dose 0.6 MG; Start 06/25/16 at 21:00 Lorazepam (Ativan) 1 mg Q6H PRN IV ANXIETY; Start 06/25/16 at 18:30 Morphine Sulfate 2 mg 2 mg Q6H PRN IV PAIN LEVEL 7-10 Last administered on 06/28 22:58; Admin Dose 2 MG; Start 06/25/16 at 18:30 Meropenem (Merrem 500 Mg/ 100 ml (Pmx)) 100 ml @ 200 mls/hr Q12 IVPB Last administered on 06/29/16 09:08; Admin Dose 200 MLS/HR; Start 06/26/16 at 17:00 Phytonadione (Vitamin K) 10 mg DAILY IM Last administered on 06/29/16 09:07; Admin Dose 10 MG; Start 06/27/16 at 09:00 Prednisone 40 mg 40 mg DAILY GTB Last administered on 06/29/16 09:07; Admin Dose 40 MG; Start 06/27/16 at 14:30 Potassium Chloride/Dextrose 1,000 ml @ 50 mls/hr Q20H IV Last administered on 06/28/16 07:00; Admin Dose 50 MLS/HR; Start 06/27/16 at 15:30 Linezolid (Zyvox 600mg/D5W (Pmx)) 300 ml @ 300 mls/hr Q12 IVPB Last administered on 06/29/16 09:08; Admin Dose 300 MLS/HR; Start 06/28/16 at 00:30 ; Stop 07/05/16 at 12:00 Metoprolol Tartrate (Lopressor) 5 mg Q4H PRN IV HR>110 Last administered on 15:37; Admin Dose 5 MG; Start 06/28/16 at 16:00 Amiodarone HCl (Cordarone) 200 mg BID NGT Last administered on 06/29/16 09:07 ; Admin Dose 200 MG; Start 06/28/16 at 21:00 JAC DAVIS MD Jun 29, 2016 11:55
--- NOTE | 2016-06-29 13:49 | PN ---
Date/Time of Note Date/Time of Note DATE: 06/29/16 TIME: 13:37 Assessment/Plan VTE Prophylaxis VTE Prophylaxis Intervention: SCD's Lines/Catheters IV Catheter Type (from Nrsg): PICC Line Central line still needed: Yes Urinary Cath still in place: Yes Reason Cath still needed: other (indicate) Assessment/Plan Assessment/Plan 1. Esophageal variceal bleeding/post EVL, follow up with GI 2. Alcoholic liver cirrhosis, chronic 3. Paroxysmal atrial fibrillation/atrial flutter, now back in sinus rhythm and remains thus - now in sinus - better rate controlled now. 4. REC NSVT - add BB as toleated - BEA stable now - no new episodes now - no ectopy noted today. 5. Resolving sepsis, on multiple antibiotics, follow up with ID 6. Encephalopathy-ongoing 7. Anemia, severe, status post transfusions- H/H stable. 8. Hypernatremia. follow up with electrolytes 9. Coagulopathy 10. PEG, G-tube feeding Subjective 24 Hr Interval Summary Free Text/Dictation full alert but confused Exam/Review of Systems Vital Signs Vitals Vital Signs Date Time Temp Pulse Resp B/P Pulse Ox O2 Delivery O2 Flow Rate FiO2 06/29/16 12:00 79 06/29/16 11:50 98.0 17 91/53 96 06/29/16 09:00 21 06/29/16 08:10 Nasal Cannula 2.0 Intake and Output 06/28/16 06/28/16 06/29/16 15:00 23:00 07:00 Intake Total 0 ml Output Total 350 ml 200 ml Balance -350 ml -200 ml Exam Constitutional: alert, other (confused) Head: atraumatic, normocephalic Eyes: EOMI, PERRL, nl conjunctiva, nl lids ENMT: nl external ears & nose, nl lips & teeth, nl nasal mucosa & septum Neck: non-tender, supple Respiratory: clear to auscultation, normal air movement, No congested cough, No crackles/rales, No diminished breath sounds, No intercostal retraction, No labored breathing, No other, No respirations, No tactile fremitus, No wheezing Cardiovascular: nl pulses, regular rate and rhythm, No S3, No S4, No bruits, No diastolic murmur, No edema, No gallop, No irregular rhythm, No jugular venous distention (JVD), No murmurs/extra sounds, No other, No rub, No systolic murmur Gastrointestinal: ascites, distended Musculoskeletal: nl extremities to inspection Extremities: normal pulses, No calf tenderness, No clubbing, No cyanosis, No edema, No other, No palpable cord, No pitting pedal edema, No tenderness 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, confused, nl strength Skin: nl turgor Lymph: nl lymph nodes Results Result Diagram: 06/28/1642906/28/16429 Medications Medications Current Medications Ondansetron HCl (Zofran Inj) 4 mg Q6H PRN IV NAUSEA AND/OR VOMITING; Start 06/09 at 04:30 Dutasteride (Avodart) 0.5 mg AM PO Last administered on 06/29/16 09:07; Admin Dose 0.5 MG; Start 06/09/16 at 09:00 Finasteride (Proscar) 5 mg AM PO Last administered on 06/29/16 09:07; Admin Dose 5 MG; Start 06/09/16 at 09:00 Levothyroxine Sodium (Synthroid) 50 mcg DAILY@06 PO Last administered on 09:06; Admin Dose 50 MCG; Start 06/09/16 at 06:00 IV Flush (NS 10 ml) 10 ml PRN PRN IV IV PROTOCOL; Start 06/09/16 at 17:00 Miscellaneous Information 1 ea NOTE XX ; Start 06/11/16 at 08:30 Rifaximin (Xifaxan) 550 mg BID PO Last administered on 06/29/16 09:07; Admin Dose 550 MG; Start 06/11/16 at 14:30 Pantoprazole (Protonix Iv) 40 mg BID@06,18 IV Last administered on 06/29/16 07 :49; Admin Dose 40 MG; Start 06/11/16 at 18:00 Eye Lubricant (Artificial Tears Oph) 2 drop QID BOTH EYES Last administered on 06/29/16 09:08; Admin Dose 2 DROP; Start 06/12/16 at 13:00 Hydralazine HCl (Apresoline) 10 mg Q2H PRN IV SBP>170; Start 06/12/16 at 17:00 Metoprolol Tartrate (Lopressor) 25 mg BID PO Last administered on 06/28/16 22: 56; Admin Dose 25 MG; Start 06/14/16 at 21:00 Acetaminophen (Tylenol Liquid) 650 mg Q4H PRN NGT PAIN AND OR ELEVATED TEMP Last administered on 06/27/16 01:05; Admin Dose 650 MG; Start 06/17/16 at 12:30 Lactulose (Enulose) 30 gm QID PO Last administered on 06/29/16 09:06; Admin Dose 30 GM; Start 06/24/16 at 21:30 Febuxostat (Uloric) 40 mg DAILY PO Last administered on 06/29/16 09:06; Admin Dose 40 MG; Start 06/25/16 at 15:00 Colchicine (Colchicine) 0.6 mg TID PRN PO gout pain Last administered on 17:41; Admin Dose 0.6 MG; Start 06/25/16 at 21:00 Lorazepam (Ativan) 1 mg Q6H PRN IV ANXIETY; Start 06/25/16 at 18:30 Morphine Sulfate 2 mg 2 mg Q6H PRN IV PAIN LEVEL 7-10 Last administered on 06/28 22:58; Admin Dose 2 MG; Start 06/25/16 at 18:30 Meropenem (Merrem 500 Mg/ 100 ml (Pmx)) 100 ml @ 200 mls/hr Q12 IVPB Last administered on 06/29/16 09:08; Admin Dose 200 MLS/HR; Start 06/26/16 at 17:00 Phytonadione (Vitamin K) 10 mg DAILY IM Last administered on 06/29/16 09:07; Admin Dose 10 MG; Start 06/27/16 at 09:00 Prednisone 40 mg 40 mg DAILY GTB Last administered on 06/29/16 09:07; Admin Dose 40 MG; Start 06/27/16 at 14:30 Potassium Chloride/Dextrose 1,000 ml @ 50 mls/hr Q20H IV Last administered on 06/28/16 07:00; Admin Dose 50 MLS/HR; Start 06/27/16 at 15:30 Linezolid (Zyvox 600mg/D5W (Pmx)) 300 ml @ 300 mls/hr Q12 IVPB Last administered on 06/29/16 09:08; Admin Dose 300 MLS/HR; Start 06/28/16 at 00:30 ; Stop 07/05/16 at 12:00 Metoprolol Tartrate (Lopressor) 5 mg Q4H PRN IV HR>110 Last administered on 15:37; Admin Dose 5 MG; Start 06/28/16 at 16:00 Amiodarone HCl (Cordarone) 200 mg BID NGT Last administered on 06/29/16 09:07 ; Admin Dose 200 MG; Start 06/28/16 at 21:00 LILA RIDLEY MD Jun 29, 2016 13:47
--- NOTE | 2016-06-29 14:46 | PN ---
DATE: 06/29/2016 INFECTIOUS DISEASE PROGRESS NOTE SUBJECTIVE: No acute changes. The patient is awake, but more confused today. Looks comfortable, tolerates tube feeding. No fevers. LABORATORY DATA: No labs. ANTIMICROBIALS: 1. Zyvox. 2. Meropenem. INDWELLINGS: PEG, Crand[place], rectal tube, PICC line placed on June 09. PHYSICAL EXAMINATION: GENERAL: This is a fragile, chronically ill-appearing, elderly man who is lying comfortably in bed. HEENT: Head atraumatic, normocephalic. Sclerae anicteric. Buccal mucosa dry. NECK: Supple. CHEST: Rise symmetrical. Breath sounds diminished to bases. HEART: S1, S2. ABDOMEN: Distended, soft. Bowel sounds present. EXTREMITIES: Without cyanosis. ASSESSMENT: 1. Status post ongoing to fevers, possible sepsis==> resolved with steroids. 2. Encephalopathy. 3. Alcoholic liver cirrhosis. 4. Dysphagia, status post percutaneous endoscopic gastrostomy. 5. Acute renal failure. 6. History of familial Mediterranean fever. 7. Vancomycin-resistant Enterococci stool colonization. PLAN: The patient remains stable. We will continue him on current antimicrobials. Continue steroids as per primary team. Anti-aspiration measures. Await for urine cx. Follow recommendations of consultants. Dictated By: STACIE TAMEZ RECEIVING AND PROCESSING SUPERVISOR for [employer]LEY TORRES/RICK Conf#: [id number] DID#: [id number] MTDD
--- NOTE | 2016-06-29 17:00 | RADRPT ---
Vent Rate: 64 bpm RR Interval: 0 msec MI Interval: 158 msec QRS Duration: 86 msec QT Interval: 482 msec QTC Interval: 497 msec P-R-T Holiday: 56 - 24 - 22 degrees Normal sinus rhythm Low voltage QRS Nonspecific T wave abnormality Prolonged QT Abnormal ECG Electronically Signed By: Yogesh Pascal [id number]
[2016-06-29] MEDS: morphine 2 MG INJ IV PRN ×2 (21:04→23:02)
[2016-06-29 22:23] LABS: ADD SCAN DIFF NO
[2016-06-29 22:27] LABS: ABNORMAL IP MESSAGE 1; HEMATOCRIT 23.2 % (42.0-52.0); HEMOGLOBIN 7.1 g/dl (14.0-18.0); MEAN CORPUSCULAR HEMOGLOBIN 27.3 pg (29.0-33.0); MEAN CORPUSCULAR HGB CONC 30.6 g/dl (32.0-37.0); MEAN CORPUSCULAR VOLUME 89.2 fl (82.0-101.0); MEAN PLATELET VOLUME 11.3 fl (7.4-10.4); PLATELET COUNT 200 10^3/UL (140-415); RED CELL DISTRIBUTION WIDTH 18.5 % (11.5-14.5); WHITE BLOOD COUNT 5.5 10^3/ul (4.8-10.8)
[2016-06-29] MEDS ORDERED: OCTREOTIDE 50 MCG in SOD CHLORIDE 0.9% 50 ML IVPB ONE (22:30)
--- NOTE | 2016-06-29 22:32 | CONS ---
Date/Time of Note Date/Time of Note DATE: 06/29/16 TIME: 22:31 Assessment/Plan Assessment/Plan Chief Complaint/Hosp Course Anemia - COMPLEX, MULTIFACTORIAL WITH COMPONENT ACD, ACUTE BLOOD LOSS AND SEVERE IRON DEFICIENCY IN THE PAST * Esophageal variceal bleeding/post EVL * CONT TO MONITOR BLOOD COUNT CLOSELY * OBSERVE FOR BLEEDING AND HEMOLYSIS * PRBC NEEDED Septicemia with bandemia and fever. Acute gout. Alcoholic cirrhosis * Post variceal bleeding/post EVL * Portal encephalopathy * Ascites * Unsafe swallowing/failed swallow eval/high risk for aspiration * Family now agreeable to EGD plus PEG. Will need to have paracenteses prior to procedure. Family was informed of increased risk given comorbidities Coagulopathy VIT K MAY NEEDS FFP PRIOR TO PROCEDURE FMF Problems: Consultation Date/Type/Reason Admit Date/Time Jun 09, 2016 at 04:01 Initial Consult Date 06/09/16 Type of Consultation: hemeon Referring Provider: MAURY BENITEZ MD 24 HR Interval Summary Free Text/Dictation more alert count- stable no bleeding Exam/Review of Systems Vital Signs Vitals Vital Signs Date Time Temp Pulse Resp B/P Pulse Ox O2 Delivery O2 Flow Rate FiO2 06/29/16 20:57 98.7 80 119/62 2.0 06/29/16 17:16 18 96 06/29/16 16:32 21 06/29/16 08:10 Nasal Cannula Intake and Output 06/28/16 06/28/16 06/29/16 15:00 23:00 07:00 Intake Total 0 ml Output Total 350 ml 200 ml Balance -350 ml -200 ml Exam Exam Constitutional: alert, other (confused) Head: atraumatic, normocephalic Eyes: EOMI, PERRL, nl conjunctiva, nl lids ENMT: nl external ears & nose, nl lips & teeth, nl nasal mucosa & septum Neck: non-tender, supple Respiratory: clear to auscultation, normal air movement, No congested cough, No crackles/rales, No diminished breath sounds, No intercostal retraction, No labored breathing, No other, No respirations, No tactile fremitus, No wheezing Cardiovascular: nl pulses, regular rate and rhythm, No S3, No S4, No bruits, No diastolic murmur, No edema, No gallop, No irregular rhythm, No jugular venous distention (JVD), No murmurs/extra sounds, No other, No rub, No systolic murmur Gastrointestinal: ascites, distended Musculoskeletal: nl extremities to inspection Extremities: normal pulses, No calf tenderness, No clubbing, No cyanosis, No edema, No other, No palpable cord, No pitting pedal edema, No tenderness Neurological: 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 II-XII 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, confused, nl strength Skin: nl turgor Lymph: nl lymph nodes Results Result Diagram: 06/28/1642906/28/16429 Medications Medications Current Medications Ondansetron HCl (Zofran Inj) 4 mg Q6H PRN IV NAUSEA AND/OR VOMITING; Start 06/09 at 04:30 Dutasteride (Avodart) 0.5 mg AM PO Last administered on 06/29/16 09:07; Admin Dose 0.5 MG; Start 06/09/16 at 09:00 Finasteride (Proscar) 5 mg AM PO Last administered on 06/29/16 09:07; Admin Dose 5 MG; Start 06/09/16 at 09:00 Levothyroxine Sodium (Synthroid) 50 mcg DAILY@06 PO Last administered on 09:06; Admin Dose 50 MCG; Start 06/09/16 at 06:00 IV Flush (NS 10 ml) 10 ml PRN PRN IV IV PROTOCOL; Start 06/09/16 at 17:00 Miscellaneous Information 1 ea NOTE XX ; Start 06/11/16 at 08:30 Rifaximin (Xifaxan) 550 mg BID PO Last administered on 06/29/16 21:00; Admin Dose 550 MG; Start 06/11/16 at 14:30 Pantoprazole (Protonix Iv) 40 mg BID@06,18 IV Last administered on 06/29/16 17 :32; Admin Dose 40 MG; Start 06/11/16 at 18:00 Eye Lubricant (Artificial Tears Oph) 2 drop QID BOTH EYES Last administered on 06/29/16 17:32; Admin Dose 2 DROP; Start 06/12/16 at 13:00 Hydralazine HCl (Apresoline) 10 mg Q2H PRN IV SBP>170; Start 06/12/16 at 17:00 Metoprolol Tartrate (Lopressor) 25 mg BID PO Last administered on 06/29/16 21: 00; Admin Dose 25 MG; Start 06/14/16 at 21:00 Acetaminophen (Tylenol Liquid) 650 mg Q4H PRN NGT PAIN AND OR ELEVATED TEMP Last administered on 06/27/16 01:05; Admin Dose 650 MG; Start 06/17/16 at 12:30 Lactulose (Enulose) 30 gm QID PO Last administered on 06/29/16 21:00; Admin Dose 30 GM; Start 06/24/16 at 21:30 Febuxostat (Uloric) 40 mg DAILY PO Last administered on 06/29/16 09:06; Admin Dose 40 MG; Start 06/25/16 at 15:00 Colchicine (Colchicine) 0.6 mg TID PRN PO gout pain Last administered on 17:41; Admin Dose 0.6 MG; Start 06/25/16 at 21:00 Lorazepam (Ativan) 1 mg Q6H PRN IV ANXIETY; Start 06/25/16 at 18:30 Morphine Sulfate 2 mg 2 mg Q6H PRN IV PAIN LEVEL 7-10 Last administered on 06/29 21:04; Admin Dose 2 MG; Start 06/25/16 at 18:30 Meropenem (Merrem 500 Mg/ 100 ml (Pmx)) 100 ml @ 200 mls/hr Q12 IVPB Last administered on 06/29/16 21:00; Admin Dose 200 MLS/HR; Start 06/26/16 at 17:00 Phytonadione (Vitamin K) 10 mg DAILY IM Last administered on 06/29/16 09:07; Admin Dose 10 MG; Start 06/27/16 at 09:00 Prednisone 40 mg 40 mg DAILY GTB Last administered on 06/29/16 09:07; Admin Dose 40 MG; Start 06/27/16 at 14:30 Potassium Chloride/Dextrose 1,000 ml @ 50 mls/hr Q20H IV Last administered on 06/28/16 07:00; Admin Dose 50 MLS/HR; Start 06/27/16 at 15:30 Linezolid (Zyvox 600mg/D5W (Pmx)) 300 ml @ 300 mls/hr Q12 IVPB Last administered on 06/29/16 21:00; Admin Dose 300 MLS/HR; Start 06/28/16 at 00:30 ; Stop 07/05/16 at 12:00 Metoprolol Tartrate (Lopressor) 5 mg Q4H PRN IV HR>110 Last administered on 15:37; Admin Dose 5 MG; Start 06/28/16 at 16:00 Amiodarone HCl (Cordarone) 200 mg BID NGT Last administered on 06/29/16 20:59 ; Admin Dose 200 MG; Start 06/28/16 at 21:00 FAYE RUSHING MD Jun 29, 2016 22:32
[2016-06-29 22:36] LABS: INR 1.38; PT RATIO 1.3
[2016-06-29 23:12] LABS: LYMPHOCYTES # 0.9 10^3/ul (0.8-2.9); MONOCYTE # 0.2 10^3/ul (0.3-0.9); NEUTROPHIL # 4.4 10^3/ul (1.6-7.5)
[2016-06-29 23:19] LABS: ALBUMIN 2.3 g/dl (3.3-4.9); POTASSIUM 4.1 mmol/L (3.5-5.1)
[2016-06-29 23:21] LABS: CREATININE 1.44 mg/dl (0.61-1.24)
[2016-06-29 23:22] LABS: ALBUMIN/GLOBULIN RATIO 0.62; BILIRUBIN,INDIRECT 0.2 mg/dl (0-1.1); BILIRUBIN,TOTAL 0.2 mg/dl (0.2-1.3); CALCIUM 7.6 mg/dl (8.4-10.2)
[2016-06-30] VITALS (38 sets, daily range): BP systolic 59–121; BP diastolic 45–88; PULSE 62–75; RESP 11–40
[2016-06-30] MEDS: OCTREOTIDE 1 MG in SOD CHLORIDE 0.9% 95 ML IV SCH ×3 (01:38→22:31)
[2016-06-30] MEDS: morphine 2 MG INJ IV PRN (04:19)
[2016-06-30 05:04] LABS: ADD SCAN DIFF NO
[2016-06-30 05:06] LABS: EOSINOPHILS % 0.2 % (0.0-7.0); HEMATOCRIT 25.4 % (42.0-52.0); HEMOGLOBIN 7.8 g/dl (14.0-18.0); LYMPHOCYTES # 0.7 10^3/ul (0.8-2.9); MEAN CORPUSCULAR HEMOGLOBIN 27.8 pg (29.0-33.0); MEAN CORPUSCULAR HGB CONC 30.7 g/dl (32.0-37.0); MEAN CORPUSCULAR VOLUME 90.4 fl (82.0-101.0); MEAN PLATELET VOLUME 11.4 fl (7.4-10.4); MONOCYTE # 0.4 10^3/ul (0.3-0.9); MONOCYTES % 7.6 % (0.0-11.0); NEUTROPHIL # 4.5 10^3/ul (1.6-7.5); NEUTROPHILS % 77.3 % (39.0-77.0); NUCLEATED RED BLOOD CELLS% 0.7 /100WBC (0.0-0.0); PLATELET COUNT 163 10^3/UL (140-415); RED BLOOD COUNT 2.81 10^6/ul (4.70-6.10); RED CELL DISTRIBUTION WIDTH 17.6 % (11.5-14.5); WHITE BLOOD COUNT 5.8 10^3/ul (4.8-10.8)
[2016-06-30 05:21] LABS: POTASSIUM 5.1 mmol/L (3.5-5.1)
[2016-06-30 05:24] LABS: ALBUMIN/GLOBULIN RATIO 0.62; BILIRUBIN,INDIRECT 0.7 mg/dl (0-1.1); BILIRUBIN,TOTAL 0.7 mg/dl (0.2-1.3); CREATININE 1.34 mg/dl (0.61-1.24); TOTAL PROTEIN 5.2 g/dl (6.1-8.1)
[2016-06-30 05:25] LABS: CALCIUM 7.2 mg/dl (8.4-10.2)
[2016-06-30] MEDS: ALBUTEROL/IPRATROPIUM (NEB) 3 ML AMP HHN SCH ×6 (05:28→21:13)
[2016-06-30] MEDS: PANTOPRAZOLE 40 MG INJ IV SCH ×2 (06:18→18:05)
[2016-06-30] MEDS: LEVOTHYROXINE 50 MCG TAB PO SCH (06:18)
[2016-06-30] MEDS: D5W + KCL 20 MEQ 1,000 ML IV SCH (06:18)
--- NOTE | 2016-06-30 06:55 | GILP ---
DATE OF PROCEDURE: 06/28/2016 DATE: 06/28/2016 NAME OF PROCEDURE: Esophagogastroduodenoscopy with percutaneous endoscopic gastrostomy tube cristy sierra SURGEON: Yvonne Arce MD. PREOPERATIVE DIAGNOSIS(ES) ____ POSTOPERATIVE DIAGNOSIS(ES) ____ DESCRIPTION OF PROCEDURE: ____ HISTORY AND INDICATIONS: ____ PREMEDICATION: Monitored anesthesia care by anesthesiologist. INSTRUMENT USED: Olympus colonoscope TECHNIQUE: After informed consent, with the patient and/or family members understanding the procedur e, its indications, potential risks and complications, including but not limited to: allergic reacti on, bleeding, perforation, infection or leakage, and after all pertinent questions were answered to the patient and/or family members satisfaction, the patient and/or family member signed witnessed in formed consent. Following this, premedication was administered slowly IV push, under careful cardiovascular and resp iratory monitoring with pulse oximetry, blood pressure and phototypesetting equipment monitor. Once the sedative effect was achieved the patient was place in the supine position, the panendoscope was introduced and advanced under visual guidance. Careful examination of the upper gastrointestinal tract, on insertion as well as withdrawal of the i nstrument disclosed the following findings: ESOPHAGUS: There are some clots and ulcerations in the area of the previous banding. There is no a ctive bleeding. STOMACH: Upon entrance to the stomach air was insufflated, the gastric xie distended normally. The mucosa of the fundus, body and antrum of the stomach was carefully examined both head-on and on ret roflexion, and shows no abnormalities. There is no evidence of gastritis, ulcers or neoplasm. PYLORUS: The pylorus appears patent and within normal limits, with no evidence of gastric outlet obs truction. DUODENUM: The duodenal mucosa was carefully examined in the duodenal bulb as well as the second port ion of the duodenum and appears unremarkable with no evidence of duodenitis, ulcer or neoplasm. The instrument was then brought back to the stomach and the anterior wall mid-body was identified by transillumination and "finger indentation", this area was then marked in the anterior wall of the a bdomen, it was cleansed with Betadine and infiltrated with Xylocaine 1%. Following this a trocar nee dle was introduced into the gastric lumen under visual control with the endoscope, once in the gastr ic lumen a guide wire was advanced and secured with a polypectomy snare, at this point the endoscope was withdrawn bringing the guide wire out through the patients mouth. Following this a gastrostomy tube was introduced over the guide wire, with the Sacks-Vine technique without difficulty, a small i ncision was performed in the skin to allow easy passage of the G-tube, once the position of the anthony rostomy tube was confirmed, the external stopper and connectors were installed, and a clean dressing applied. The patient tolerated the procedure well and was transferred out of the endoscopy suite awake, and i n good condition to continue recovery under observation, feedings will started in the next 12-24h an d gastrostomy care will be instituted. IMPRESSION: 1. Esophageal ulcers with some old clots in the area, but no active bleeding. 2. Nasogastric tube trauma present. 3. Uneventful percutaneous endoscopic gastrostomy tube placement with placement of [place] 20 gastro stomy tube. PLAN: The patient will be continued on PPIs, nasogastric tube will be discontinued. Gastrostomy tu be will be used for medications tonight and feedings will be started tomorrow morning. Further tamela mmendation will depend on the patient's clinical course. Dictated By: YVONNE NOVA Conf#: [id number] DID#: [id number]
[2016-06-30] MEDS: RIFAXIMIN 550 MG TAB PO SCH ×2 (09:00→22:33)
[2016-06-30] MEDS: FEBUXOSTAT 40 MG TABLET PO SCH (09:00)
[2016-06-30] MEDS: predniSONE 20 MG TAB GTB SCH (09:00)
[2016-06-30] MEDS: METOPROLOL 25 MG TAB PO SCH ×2 (09:00→21:16)
[2016-06-30] MEDS: FINASTERIDE 5 MG TAB PO SCH (09:00)
[2016-06-30] MEDS: LACTULOSE 30ML CUP PO SCH ×4 (09:00→20:57)
[2016-06-30] MEDS: AMIODARONE 200 MG TAB NGT SCH ×2 (09:00→21:15)
[2016-06-30] MEDS: DUTASTERIDE 0.5 MG CAP PO SCH (09:00)
[2016-06-30] MEDS: ARTIFICIAL TEARS 15 ML OPH BOTH EYES SCH ×4 (09:43→20:46)
[2016-06-30] MEDS: PHYTONADIONE 10 MG/ML INJ IM SCH (09:43)
--- NOTE | 2016-06-30 10:35 | PN ---
Date/Time of Note Date/Time of Note DATE: 06/30/16 TIME: 10:33 Assessment/Plan VTE Prophylaxis VTE Prophylaxis Intervention: SCD's Lines/Catheters IV Catheter Type (from Nrs): PICC Line Central line still needed: Yes Urinary Cath still in place: Yes Reason Cath still needed: other (indicate) Assessment/Plan Chief Complaint/Hosp Course Assessment/Plan 1. Esophageal variceal bleeding/post EVL, follow up with GI, continue PPI and octreotide 2. Alcoholic liver cirrhosis, chronic 3. Paroxysmal atrial fibrillation/atrial flutter, now back in sinus rhythm and remains thus - now in sinus - better rate controlled now. 4. REC NSVT - add BB as toleated - BEA stable now - no new episodes now - no ectopy noted today. 5. Resolving sepsis, on multiple antibiotics, follow up with ID 6. Encephalopathy-likely secondary to history of cirrhosis and alcohol abuse, improving 7. Anemia, , status post transfusions- H/H stable. Continue to monitor 8. Hypernatremia. follow up with electrolytes 9. Coagulopathy, likely secondary to his history of cirrhosis and alcohol abuse 10. PEG, G-tube feeding Transferred to telemetry PT OT eval and treat Problems: Subjective 24 Hr Interval Summary Free Text/Dictation There is language barrier although patient is awake and alert Follow command Denies of any chest pain or shortness of breath PEG tube feeding has been held Exam/Review of Systems Vital Signs Vitals Vital Signs Date Time Temp Pulse Resp B/P Pulse Ox O2 Delivery O2 Flow Rate FiO2 06/30/16 09:00 71 16 104/59 98 Nasal Cannula 06/30/16 08:30 3.0 06/30/16 08:00 98.1 06/29/16 16:32 21 Intake and Output 06/29/16 06/29/16 06/30/16 15:00 23:00 07:00 Intake Total 400 ml 850 ml 1556 ml Output Total 1250 ml 345 ml Balance 400 ml -400 ml 1211 ml Exam General: The patient is well-developed, Not in acute distress. HEENT: Atraumatic, normocephalic. The pupils are equal and round . Neck: Supple with full range of motion. Chest: Normal expansion of the thorax during inspiration Lungs: Clear to auscultation bilaterally Heart: Normal S1-S2, Regular rhythm and rate. Abdomen: Soft , nontender, minimally distended , bowel sounds are present. PEG tube in place Extremities: Normal to inspection, no edema no cyanosis Neurologic: The patient is awake, alert Results Result Diagram: 06/30/16 0500 06/30/16 0500 Results 24 hrs Laboratory Tests Test 06/29/16 22:10 06/30/16 05:00 White Blood Count 5.5 5.8 Red Blood Count 2.60 L 2.81 L Hemoglobin 7.1 L 7.8 L Hematocrit 23.2 L 25.4 L Mean Corpuscular Volume 89.2 90.4 Mean Corpuscular Hemoglobin 27.3 L 27.8 L Mean Corpuscular Hemoglobin Concent 30.6 L 30.7 L Red Cell Distribution Width 18.5 H 17.6 H Platelet Count 200 163 Mean Platelet Volume 11.3 H 11.4 H Neutrophils % 80.0 H 77.3 H Lymphocytes % 16.0 12.0 L Monocytes % 4.0 7.6 Neutrophils # 4.4 4.5 Lymphocytes # 0.9 0.7 L Monocytes # 0.2 L 0.4 Prothrombin Time 17.0 H Prothrombin Time Ratio 1.3 INR International Normalized Ratio 1.38 Sodium Level 149 H 143 Potassium Level 4.1 5.1 Chloride Level 115 H 113 H Carbon Dioxide Level 20 L 20 L Anion Gap 18 H 15 Blood Urea Nitrogen 54 H 50 H Creatinine 1.44 H 1.34 H Glucose Level 127 274 #H Calcium Level 7.6 L 7.2 L Total Bilirubin 0.2 0.7 Direct Bilirubin 0.00 0.00 Indirect Bilirubin 0.2 0.7 Aspartate Amino Transf (AST/SGOT) 42 # 33 Alanine Aminotransferase (ALT/SGPT) 26 25 Alkaline Phosphatase 118 95 Ammonia < 9 L Total Protein 6.0 L 5.2 L Albumin 2.3 L 2.0 L Globulin 3.70 H 3.20 Albumin/Globulin Ratio 0.62 0.62 Eosinophils % 0.2 Basophils % 0.0 Nucleated Red Blood Cells % 0.7 H Eosinophils # 0.0 Basophils # 0.0 Nucleated Red Blood Cells # 0.0 Medications Medications Current Medications Ondansetron HCl (Zofran Inj) 4 mg Q6H PRN IV NAUSEA AND/OR VOMITING; Start 06/09 at 04:30 Dutasteride (Avodart) 0.5 mg AM PO Last administered on 06/29/16 09:07; Admin Dose 0.5 MG; Start 06/09/16 at 09:00 Finasteride (Proscar) 5 mg AM PO Last administered on 06/29/16 09:07; Admin Dose 5 MG; Start 06/09/16 at 09:00 Levothyroxine Sodium (Synthroid) 50 mcg DAILY@06 PO Last administered on 06:18; Admin Dose 50 MCG; Start 06/09/16 at 06:00 IV Flush (NS 10 ml) 10 ml PRN PRN IV IV PROTOCOL; Start 06/09/16 at 17:00 Miscellaneous Information 1 ea NOTE XX ; Start 06/11/16 at 08:30 Rifaximin (Xifaxan) 550 mg BID PO Last administered on 06/29/16 21:00; Admin Dose 550 MG; Start 06/11/16 at 14:30 Pantoprazole (Protonix Iv) 40 mg BID@18 IV Last administered on 06/30/16 06 :18; Admin Dose 40 MG; Start 06/11/16 at 18:00 Eye Lubricant (Artificial Tears Oph) 2 drop QID BOTH EYES Last administered on 06/30/16 09:43; Admin Dose 2 DROP; Start 06/12/16 at 13:00 Hydralazine HCl (Apresoline) 10 mg Q2H PRN IV SBP>170; Start 06/12/16 at 17:00 Metoprolol Tartrate (Lopressor) 25 mg BID PO Last administered on 06/29/16 21: 00; Admin Dose 25 MG; Start 06/14/16 at 21:00 Acetaminophen (Tylenol Liquid) 650 mg Q4H PRN NGT PAIN AND OR ELEVATED TEMP Last administered on 06/27/16 01:05; Admin Dose 650 MG; Start 06/17/16 at 12:30 Lactulose (Enulose) 30 gm QID PO Last administered on 06/29/16 21:00; Admin Dose 30 GM; Start 06/24/16 at 21:30 Febuxostat (Uloric) 40 mg DAILY PO Last administered on 06/29/16 09:06; Admin Dose 40 MG; Start 06/25/16 at 15:00 Colchicine (Colchicine) 0.6 mg TID PRN PO gout pain Last administered on 17:41; Admin Dose 0.6 MG; Start 06/25/16 at 21:00 Lorazepam (Ativan) 1 mg Q6H PRN IV ANXIETY; Start 06/25/16 at 18:30 Morphine Sulfate 2 mg 2 mg Q6H PRN IV PAIN LEVEL 7-10 Last administered on 06/30 04:19; Admin Dose 2 MG; Start 06/25/16 at 18:30 Meropenem (Merrem 500 Mg/ 100 ml (Pmx)) 100 ml @ 200 mls/hr Q12 IVPB Last administered on 06/29/16 21:00; Admin Dose 200 MLS/HR; Start 06/26/16 at 17:00 Phytonadione (Vitamin K) 10 mg DAILY IM Last administered on 06/30/16 09:43; Admin Dose 10 MG; Start 06/27/16 at 09:00 Prednisone 40 mg 40 mg DAILY GTB Last administered on 06/29/16 09:07; Admin Dose 40 MG; Start 06/27/16 at 14:30 Potassium Chloride/Dextrose 1,000 ml @ 50 mls/hr Q20H IV Last administered on 06/30/16 06:18; Admin Dose 50 MLS/HR; Start 06/27/16 at 15:30 Linezolid (Zyvox 600mg/D5W (Pmx)) 300 ml @ 300 mls/hr Q12 IVPB Last administered on 06/29/16 21:00; Admin Dose 300 MLS/HR; Start 06/28/16 at 00:30 ; Stop 07/05/16 at 12:00 Metoprolol Tartrate (Lopressor) 5 mg Q4H PRN IV HR>110 Last administered on 15:37; Admin Dose 5 MG; Start 06/28/16 at 16:00 Amiodarone HCl 200 mg 200 mg BID NGT Last administered on 06/29/16 20:59; Admin Dose 200 MG; Start 06/28/16 at 21:00 Octreotide Acetate/Sodium Chloride (Sandostatin/NS) 100 ml @ 5 mls/hr Q20H IV Last administered on 06/30/16 01:38; Admin Dose 5 MLS/HR; Start 06/29/16 at 22: 30 NHI AHMADI MD Jun 30, 2016 10:35
--- NOTE | 2016-06-30 11:45 | CONS ---
Date/Time of Note Date/Time of Note DATE: 06/30/16 TIME: 11:43 Assessment/Plan Assessment/Plan Chief Complaint/Hosp Course Anemia - COMPLEX, MULTIFACTORIAL WITH COMPONENT ACD, ACUTE BLOOD LOSS AND SEVERE IRON DEFICIENCY IN THE PAST * Esophageal variceal bleeding/post EVL * CONT TO MONITOR BLOOD COUNT CLOSELY * OBSERVE FOR BLEEDING AND HEMOLYSIS * PRBC NEEDED * DROP H/H POST GT * OBSERVE FOR BLEEDING * GI F-UP Septicemia with bandemia and fever. Acute gout. Alcoholic cirrhosis * Post variceal bleeding/post EVL * Portal encephalopathy * Ascites * Unsafe swallowing/failed swallow eval/high risk for aspiration * Family now agreeable to EGD plus PEG. Will need to have paracenteses prior to procedure. Family was informed of increased risk given comorbidities Coagulopathy VIT K MAY NEEDS FFP PRIOR TO PROCEDURE FMF Problems: Consultation Date/Type/Reason Admit Date/Time Jun 09, 2016 at 04:01 Initial Consult Date 06/09/16 Type of Consultation: hemeon Referring Provider: MAURY BENITEZ MD 24 HR Interval Summary Free Text/Dictation Follow command Denies of any chest pain or shortness of breath PEG tube feeding has been held POS GIB WITH DROP H/H POST GT Exam/Review of Systems Vital Signs Vitals Vital Signs Date Time Temp Pulse Resp B/P Pulse Ox O2 Delivery O2 Flow Rate FiO2 06/30/16 11:00 73 20 112/72 93 Nasal Cannula 06/30/16 08:30 3.0 06/30/16 08:00 98.1 06/29/16 16:32 21 Intake and Output 06/29/16 06/29/16 06/30/16 15:00 23:00 07:00 Intake Total 400 ml 850 ml 1611 ml Output Total 1250 ml 345 ml Balance 400 ml -400 ml 1266 ml Exam General: The patient is well-developed, Not in acute distress. HEENT: Atraumatic, normocephalic. The pupils are equal and round . Neck: Supple with full range of motion. Chest: Normal expansion of the thorax during inspiration Lungs: Clear to auscultation bilaterally Heart: Normal S1-S2, Regular rhythm and rate. Abdomen: Soft , nontender, minimally distended , bowel sounds are present. PEG tube in place Extremities: Normal to inspection, no edema no cyanosis Neurologic: The patient is awake, alert Results Result Diagram: 06/30/16 0500 06/30/16 0500 Results 24 hrs Laboratory Tests Test 06/29/16 22:10 06/30/16 05:00 White Blood Count 5.5 5.8 Red Blood Count 2.60 L 2.81 L Hemoglobin 7.1 L 7.8 L Hematocrit 23.2 L 25.4 L Mean Corpuscular Volume 89.2 90.4 Mean Corpuscular Hemoglobin 27.3 L 27.8 L Mean Corpuscular Hemoglobin Concent 30.6 L 30.7 L Red Cell Distribution Width 18.5 H 17.6 H Platelet Count 200 163 Mean Platelet Volume 11.3 H 11.4 H Neutrophils % 80.0 H 77.3 H Lymphocytes % 16.0 12.0 L Monocytes % 4.0 7.6 Neutrophils # 4.4 4.5 Lymphocytes # 0.9 0.7 L Monocytes # 0.2 L 0.4 Prothrombin Time 17.0 H Prothrombin Time Ratio 1.3 INR International Normalized Ratio 1.38 Sodium Level 149 H 143 Potassium Level 4.1 5.1 Chloride Level 115 H 113 H Carbon Dioxide Level 20 L 20 L Anion Gap 18 H 15 Blood Urea Nitrogen 54 H 50 H Creatinine 1.44 H 1.34 H Glucose Level 127 274 #H Calcium Level 7.6 L 7.2 L Total Bilirubin 0.2 0.7 Direct Bilirubin 0.00 0.00 Indirect Bilirubin 0.2 0.7 Aspartate Amino Transf (AST/SGOT) 42 # 33 Alanine Aminotransferase (ALT/SGPT) 26 25 Alkaline Phosphatase 118 95 Ammonia < 9 L Total Protein 6.0 L 5.2 L Albumin 2.3 L 2.0 L Globulin 3.70 H 3.20 Albumin/Globulin Ratio 0.62 0.62 Eosinophils % 0.2 Basophils % 0.0 Nucleated Red Blood Cells % 0.7 H Eosinophils # 0.0 Basophils # 0.0 Nucleated Red Blood Cells # 0.0 Medications Medications Current Medications Ondansetron HCl (Zofran Inj) 4 mg Q6H PRN IV NAUSEA AND/OR VOMITING; Start 06/09 at 04:30 Dutasteride (Avodart) 0.5 mg AM PO Last administered on 06/29/16t 09:07; Admin Dose 0.5 MG; Start 06/09/16 at 09:00 Finasteride (Proscar) 5 mg AM PO Last administered on 06/29/16 09:07; Admin Dose 5 MG; Start 06/09/16 at 09:00 Levothyroxine Sodium (Synthroid) 50 mcg DAILY@06 PO Last administered on 06:18; Admin Dose 50 MCG; Start 06/09/16 at 06:00 IV Flush (NS 10 ml) 10 ml PRN PRN IV IV PROTOCOL; Start 06/09/16 at 17:00 Miscellaneous Information 1 ea NOTE XX ; Start 06/11/16 at 08:30 Rifaximin (Xifaxan) 550 mg BID PO Last administered on 06/29/16 21:00; Admin Dose 550 MG; Start 06/11/16 at 14:30 Pantoprazole (Protonix Iv) 40 mg BID@,18 IV Last administered on 06/30/16 06 :18; Admin Dose 40 MG; Start 06/11/16 at 18:00 Eye Lubricant (Artificial Tears Oph) 2 drop QID BOTH EYES Last administered on 06/30/16 09:43; Admin Dose 2 DROP; Start 06/12/16 at 13:00 Hydralazine HCl (Apresoline) 10 mg Q2H PRN IV SBP>170; Start 06/12/16 at 17:00 Metoprolol Tartrate (Lopressor) 25 mg BID PO Last administered on 06/29/16 21: 00; Admin Dose 25 MG; Start 06/14/16 at 21:00 Acetaminophen (Tylenol Liquid) 650 mg Q4H PRN NGT PAIN AND OR ELEVATED TEMP Last administered on 06/27/16 01:05; Admin Dose 650 MG; Start 06/17/16 at 12:30 Lactulose (Enulose) 30 gm QID PO Last administered on 06/29/16 21:00; Admin Dose 30 GM; Start 06/24/16 at 21:30 Febuxostat (Uloric) 40 mg DAILY PO Last administered on 06/29/16 09:06; Admin Dose 40 MG; Start 06/25/16 at 15:00 Colchicine (Colchicine) 0.6 mg TID PRN PO gout pain Last administered on 17:41; Admin Dose 0.6 MG; Start 06/25/16 at 21:00 Lorazepam (Ativan) 1 mg Q6H PRN IV ANXIETY; Start 06/25/16 at 18:30 Morphine Sulfate 2 mg 2 mg Q6H PRN IV PAIN LEVEL 7-10 Last administered on 06/30 04:19; Admin Dose 2 MG; Start 06/25/16 at 18:30 Meropenem (Merrem 500 Mg/ 100 ml (Pmx)) 100 ml @ 200 mls/hr Q12 IVPB Last administered on 06/29/16 21:00; Admin Dose 200 MLS/HR; Start 06/26/16 at 17:00 Phytonadione (Vitamin K) 10 mg DAILY IM Last administered on 06/30/16 09:43; Admin Dose 10 MG; Start 06/27/16 at 09:00 Prednisone 40 mg 40 mg DAILY GTB Last administered on 06/29/16 09:07; Admin Dose 40 MG; Start 06/27/16 at 14:30 Potassium Chloride/Dextrose 1,000 ml @ 50 mls/hr Q20H IV Last administered on 06/30/16 06:18; Admin Dose 50 MLS/HR; Start 06/27/16 at 15:30 Linezolid (Zyvox 600mg/D5W (Pmx)) 300 ml @ 300 mls/hr Q12 IVPB Last administered on 06/29/16 21:00; Admin Dose 300 MLS/HR; Start 06/28/16 at 00:30 ; Stop 07/05/16 at 12:00 Metoprolol Tartrate (Lopressor) 5 mg Q4H PRN IV HR>110 Last administered on 15:37; Admin Dose 5 MG; Start 06/28/16 at 16:00 Amiodarone HCl 200 mg 200 mg BID NGT Last administered on 06/29/16 20:59; Admin Dose 200 MG; Start 06/28/16 at 21:00 Octreotide Acetate/Sodium Chloride (Sandostatin/NS) 100 ml @ 5 mls/hr Q20H IV Last administered on 06/30/16 01:38; Admin Dose 5 MLS/HR; Start 06/29/16 at 22: 30 FAYE RUSHING MD Jun 30, 2016 11:45
[2016-06-30] MEDS: LINEZOLID 600 MG/D5W (PMX) 300 ML IVPB SCH ×2 (12:10→20:45)
[2016-06-30] MEDS: MEROPENEM 500 MG/100 ML (PMX) 100 ML IVPB SCH ×2 (12:11→20:45)
--- NOTE | 2016-06-30 12:13 | PN ---
Date/Time of Note Date/Time of Note DATE: 06/30/16 TIME: 12:01 Assessment/Plan VTE Prophylaxis VTE Prophylaxis Intervention: SCD's Lines/Catheters IV Catheter Type (from [facility]): PICC Line Central line still needed: Yes Urinary Cath still in place: Yes Reason Cath still needed: urinary retention Assessment/Plan Assessment/Plan Assessment/Plan Hematochezia/blood in gastrostomy tube Esophageal variceal bleeding/post EVL * Anemia secondary to above hemoglobin 7.8 * Alcoholic cirrhosis * Post variceal bleeding/post EVL * Portal encephalopathy * Ascites/Neg U/S * Coagulopathy * Unsafe swallowing/failed swallow eval/high risk for aspiration * Post uneventful PEG/Tolerating feedings EGD with PEG placement 06/28/16 Esophageal ulcers with some old clots in the area, but no active bleeding. . Nasogastric tube trauma present. Uneventful percutaneous endoscopic gastrostomy tube placement with placement of Cymro 20 gastrostomy tube. VRE Plan : EGD and possible ligation of bleeders,risks and benefit explained to the relatives and agreed to the plan procedure hold tube feeding monitor H and H Q6 transfuse per protocol Subjective 24 Hr Interval Summary Free Text/Dictation Course reviewed with nursing staff Patient was transferred to ICU because of low hemoglobin and received 2 units of prbc latest hemoglobin 7.8 S/P PEG placement 06/28/16 ,patient on npo no fever ,no chills, no vomiting patient is confused,episode of hematochezia,blood per gastrostomy tube Exam/Review of Systems Vital Signs Vitals Vital Signs Date Time Temp Pulse Resp B/P Pulse Ox O2 Delivery O2 Flow Rate FiO2 06/30/16 11:00 73 20 112/72 93 Nasal Cannula 06/30/16 08:30 3.0 06/30/16 08:00 98.1 06/29/16 16:32 21 Intake and Output 06/29/16 06/29/16 06/30/16 15:00 23:00 07:00 Intake Total 400 ml 850 ml 1611 ml Output Total 1250 ml 345 ml Balance 400 ml -400 ml 1266 ml Exam Constitutional: , obese Head: atraumatic, normocephalic Neck: non-tender, supple Cardiovascular: nl pulses, regular rate and rhythm Gastrointestinal: , distended, soft, With bowel sounds,PEG in placed, fresh blood per G tube No mass, No rebound or guarding, Non tender Musculoskeletal: nl extremities to inspection Skin: nl turgor, No rash or lesions Results Result Diagram: 06/30/16 0500 06/30/16 0500 Results 24 hrs Laboratory Tests Test 06/29/16 22:10 06/30/16 05:00 White Blood Count 5.5 5.8 Red Blood Count 2.60 L 2.81 L Hemoglobin 7.1 L 7.8 L Hematocrit 23.2 L 25.4 L Mean Corpuscular Volume 89.2 90.4 Mean Corpuscular Hemoglobin 27.3 L 27.8 L Mean Corpuscular Hemoglobin Concent 30.6 L 30.7 L Red Cell Distribution Width 18.5 H 17.6 H Platelet Count 200 163 Mean Platelet Volume 11.3 H 11.4 H Neutrophils % 80.0 H 77.3 H Lymphocytes % 16.0 12.0 L Monocytes % 4.0 7.6 Neutrophils # 4.4 4.5 Lymphocytes # 0.9 0.7 L Monocytes # 0.2 L 0.4 Prothrombin Time 17.0 H Prothrombin Time Ratio 1.3 INR International Normalized Ratio 1.38 Sodium Level 149 H 143 Potassium Level 4.1 5.1 Chloride Level 115 H 113 H Carbon Dioxide Level 20 L 20 L Anion Gap 18 H 15 Blood Urea Nitrogen 54 H 50 H Creatinine 1.44 H 1.34 H Glucose Level 127 274 #H Calcium Level 7.6 L 7.2 L Total Bilirubin 0.2 0.7 Direct Bilirubin 0.00 0.00 Indirect Bilirubin 0.2 0.7 Aspartate Amino Transf (AST/SGOT) 42 # 33 Alanine Aminotransferase (ALT/SGPT) 26 25 Alkaline Phosphatase 118 95 Ammonia < 9 L Total Protein 6.0 L 5.2 L Albumin 2.3 L 2.0 L Globulin 3.70 H 3.20 Albumin/Globulin Ratio 0.62 0.62 Eosinophils % 0.2 Basophils % 0.0 Nucleated Red Blood Cells % 0.7 H Eosinophils # 0.0 Basophils # 0.0 Nucleated Red Blood Cells # 0.0 Medications Medications Current Medications Ondansetron HCl (Zofran Inj) 4 mg Q6H PRN IV NAUSEA AND/OR VOMITING; Start 06/09 at 04:30 Dutasteride (Avodart) 0.5 mg AM PO Last administered on 06/29/16t 09:07; Admin Dose 0.5 MG; Start 06/09/16 at 09:00 Finasteride (Proscar) 5 mg AM PO Last administered on 06/29/16 09:07; Admin Dose 5 MG; Start 06/09/16 at 09:00 Levothyroxine Sodium (Synthroid) 50 mcg DAILY@06 PO Last administered on 06:18; Admin Dose 50 MCG; Start 06/09/16 at 06:00 IV Flush (NS 10 ml) 10 ml PRN PRN IV IV PROTOCOL; Start 06/09/16 at 17:00 Miscellaneous Information 1 ea NOTE XX ; Start 06/11/16 at 08:30 Rifaximin (Xifaxan) 550 mg BID PO Last administered on 06/29/16 21:00; Admin Dose 550 MG; Start 06/11/16 at 14:30 Pantoprazole (Protonix Iv) 40 mg BID@,18 IV Last administered on 06/30/16 06 :18; Admin Dose 40 MG; Start 06/11/16 at 18:00 Eye Lubricant (Artificial Tears Oph) 2 drop QID BOTH EYES Last administered on 06/30/16 09:43; Admin Dose 2 DROP; Start 06/12/16 at 13:00 Hydralazine HCl (Apresoline) 10 mg Q2H PRN IV SBP>170; Start 06/12/16 at 17:00 Metoprolol Tartrate (Lopressor) 25 mg BID PO Last administered on 06/29/16 21: 00; Admin Dose 25 MG; Start 06/14/16 at 21:00 Acetaminophen (Tylenol Liquid) 650 mg Q4H PRN NGT PAIN AND OR ELEVATED TEMP Last administered on 06/27/16 01:05; Admin Dose 650 MG; Start 06/17/16 at 12:30 Lactulose (Enulose) 30 gm QID PO Last administered on 06/29/16 21:00; Admin Dose 30 GM; Start 06/24/16 at 21:30 Febuxostat (Uloric) 40 mg DAILY PO Last administered on 06/29/16 09:06; Admin Dose 40 MG; Start 06/25/16 at 15:00 Colchicine (Colchicine) 0.6 mg TID PRN PO gout pain Last administered on 17:41; Admin Dose 0.6 MG; Start 06/25/16 at 21:00 Lorazepam (Ativan) 1 mg Q6H PRN IV ANXIETY; Start 06/25/16 at 18:30 Morphine Sulfate 2 mg 2 mg Q6H PRN IV PAIN LEVEL 7-10 Last administered on 06/30 04:19; Admin Dose 2 MG; Start 06/25/16 at 18:30 Meropenem (Merrem 500 Mg/ 100 ml (Pmx)) 100 ml @ 200 mls/hr Q12 IVPB Last administered on 06/29/16 21:00; Admin Dose 200 MLS/HR; Start 06/26/16 at 17:00 Phytonadione (Vitamin K) 10 mg DAILY IM Last administered on 06/30/16 09:43; Admin Dose 10 MG; Start 06/27/16 at 09:00 Prednisone 40 mg 40 mg DAILY GTB Last administered on 06/29/16 09:07; Admin Dose 40 MG; Start 06/27/16 at 14:30 Potassium Chloride/Dextrose 1,000 ml @ 50 mls/hr Q20H IV Last administered on 06/30/16 06:18; Admin Dose 50 MLS/HR; Start 06/27/16 at 15:30 Linezolid (Zyvox 600mg/D5W (Pmx)) 300 ml @ 300 mls/hr Q12 IVPB Last administered on 06/29/16 21:00; Admin Dose 300 MLS/HR; Start 06/28/16 at 00:30 ; Stop 07/05/16 at 12:00 Metoprolol Tartrate (Lopressor) 5 mg Q4H PRN IV HR>110 Last administered on 15:37; Admin Dose 5 MG; Start 06/28/16 at 16:00 Amiodarone HCl 200 mg 200 mg BID NGT Last administered on 06/29/16 20:59; Admin Dose 200 MG; Start 06/28/16 at 21:00 Octreotide Acetate/Sodium Chloride (Sandostatin/NS) 100 ml @ 5 mls/hr Q20H IV Last administered on 06/30/16 01:38; Admin Dose 5 MLS/HR; Start 06/29/16 at 22: 30 JAC DAVIS MD Jun 30, 2016 12:11
[2016-06-30 12:26] LABS: HEMATOCRIT 25.6 % (42.0-52.0); HEMOGLOBIN 7.9 g/dl (14.0-18.0)
--- NOTE | 2016-06-30 12:49 | PN ---
DATE: 06/30/2016 SUBJECTIVE: The patient was transferred to ICU yesterday 2 to GI bleeding. He was started on Sandostatin drip. He is awake, pleasantly confused and in no distress. He follows commands, no fevers. VITAL SIGNS: Temperature 98.1, pulse 73, respirations 20, blood pressure 112/72 , saturation 95 on nasal cannula. WBC 5.8, H and H 7.8 and 25.4, platelets 163, neutrophils 77.3, BUN 50, creatinine 1.34. ANTIMICROBIALS: Patient is on: 1. Zyvox. 2. Merrem, day #5 antibiotics. INDWELLINGS: PICC line, [place], PEG, rectal tube. PHYSICAL EXAMINATION: GENERAL: This is a chronically ill-appearing, elderly man who is in no distress. HEENT: Head atraumatic, normocephalic. Sclerae anicteric. Buccal mucosa dry. NECK: Supple. CHEST: Rise symmetrical. Breath sounds diminished to bases. HEART: S1, S2. ABDOMEN: Soft. Bowel tones present. EXTREMITIES: Without cyanosis. Bilateral trace edema. ASSESSMENT: 1. Gastrointestinal bleeding, gastroenterology on case, patient is stable on Sandostatin drip, status post blood transfusion. 2. History of variceal banding. 3. Hepatic encephalopathy. 4. Alcoholic liver cirrhosis. 5. Dysphagia, status post percutaneous endoscopic gastrostomy placement. 6. Acute renal failure. 7. Vancomycin-resistant enterococci stool colonization. 8. History of familial Mediterranean fever. 9. S/p fevers==> resolved 2 to abx vs prednisone PLAN: Hemodynamically stable, on appropriate antimicrobials. We will continue him on current regimen. Urine culture was ordered 5 days ago but not done for some reason. We are going to repeat a urine culture today and order a chest x- ray in a.m. Possible EGD per GI note. DW staff DW son at bedside Dictated By: STACIE TAMEZ AUTO BODY ESTIMATOR for [employer]LEY TORRES/RICK Conf#: [id number] DID#: [id number] MTDD
[2016-06-30] MEDS ORDERED: MIDAZOLAM 1 MG/ML 2 ML INJ ONE (17:23)
[2016-06-30] MEDS ORDERED: PROPOFOL 20 ML ONE (17:23)
[2016-06-30 18:37] LABS: HEMATOCRIT 25.3 % (42.0-52.0); HEMOGLOBIN 7.8 g/dl (14.0-18.0)
[2016-06-30] MEDS: PANTOPRAZOLE IV 80 MG in SOD CHLORIDE 0.9% 100 ML IV SCH (18:46)
--- NOTE | 2016-06-30 19:18 | CONS ---
Date/Time of Note Date/Time of Note DATE: 06/30/16 TIME: 19:10 Assessment/Plan Assessment/Plan Chief Complaint/Hosp Course IMPRESSION: 1. Paroxysmal atrial fibrillation/atrial flutter-having recurrently today in setting of holding of amio/BB for endoscopy-now SR 2. Abnormal electrocardiogram. Assess for acute coronary syndrome. 3. Hypotension, now improved. 4. Gastrointestinal bleed.-s/p EGD with esophageal ulcers/varices 5. Cirrhosiss/p banding of varices 6. Encephalopathy-ongoing 7. Anemia, severe, status post transfusions. 8. Hypernatremia-improved 9. Coagulopathy 10.Fever 11.PNA 12.ARF Recc: -Tele -Continue amiodarone PO but increase back to BID when patient is again able to take po's -Continue BB as tolerated/when able to take po's -No asa/systemic anti-coag secondary to anemia/GIB -Follow MS closely -Follow Hgb closely -F/U cx data and continue abx's -Holding lasix given development of ARF Problems: Consultation Date/Type/Reason Admit Date/Time Jun 09, 2016 at 04:01 Initial Consult Date 06/09/16 Type of Consultation: Cardiology Reason for Consultation PAF/AFL Referring Provider: MAURY BENITEZ MD Exam/Review of Systems Vital Signs Vitals Vital Signs Date Time Temp Pulse Resp B/P Pulse Ox O2 Delivery O2 Flow Rate FiO2 06/30/16 17:59 2.0 06/30/16 16:25 71 16 107/64 97 Nasal Cannula 06/30/16 12:00 98.4 06/29/16 16:32 21 Intake and Output 06/29/16 06/29/16 06/30/16 15:00 23:00 07:00 Intake Total 400 ml 850 ml 1611 ml Output Total 1250 ml 390 ml Balance 400 ml -400 ml 1221 ml Exam Review of Systems: CONSTITUTIONAL: No fevers, chills. PULMONARY: No sob CARDIOVASCULAR: No chest pain/palpitations GASTROINTESTINAL: No nausea/vomiting. GENITOURINARY: No hematuria/dysuria. MUSCULOSKELETAL: No myagias/arthalgias. PSYCHIATRIC: The patient denies depression. NEUROLOGIC: No weakness Constitutional: other (encephalopathy) Psych: confusion Head: normocephalic ENMT: mucosa pink and moist Neck: jvd (9 cm water), supple Respiratory: diminished breath sounds Cardiovascular: regular rate and rhythm Gastrointestinal: non-tender, soft Musculoskeletal: muscle weakness (generalized) Extremities: edema (trace) Neurological: other (No focal deficits) Results Result Diagram: 06/30/16 1815 06/30/16 0500 Results 24 hrs Laboratory Tests Test 06/29/16 22:10 06/30/16 05:00 06/30/16 12:05 06/30/16 18:15 White Blood Count 5.5 5.8 Red Blood Count 2.60 L 2.81 L Hemoglobin 7.1 L 7.8 L 7.9 L 7.8 L Hematocrit 23.2 L 25.4 L 25.6 L 25.3 L Mean Corpuscular Volume 89.2 90.4 Mean Corpuscular Hemoglobin 27.3 L 27.8 L Mean Corpuscular Hemoglobin Concent 30.6 L 30.7 L Red Cell Distribution Width 18.5 H 17.6 H Platelet Count 200 163 Mean Platelet Volume 11.3 H 11.4 H Neutrophils % 80.0 H 77.3 H Lymphocytes % 16.0 12.0 L Monocytes % 4.0 7.6 Neutrophils # 4.4 4.5 Lymphocytes # 0.9 0.7 L Monocytes # 0.2 L 0.4 Prothrombin Time 17.0 H Prothrombin Time Ratio 1.3 INR International Normalized Ratio 1.38 Sodium Level 149 H 143 Potassium Level 4.1 5.1 Chloride Level 115 H 113 H Carbon Dioxide Level 20 L 20 L Anion Gap 18 H 15 Blood Urea Nitrogen 54 H 50 H Creatinine 1.44 H 1.34 H Glucose Level 127 274 #H Calcium Level 7.6 L 7.2 L Total Bilirubin 0.2 0.7 Direct Bilirubin 0.00 0.00 Indirect Bilirubin 0.2 0.7 Aspartate Amino Transf (AST/SGOT) 42 # 33 Alanine Aminotransferase (ALT/SGPT) 26 25 Alkaline Phosphatase 118 95 Ammonia < 9 L Total Protein 6.0 L 5.2 L Albumin 2.3 L 2.0 L Globulin 3.70 H 3.20 Albumin/Globulin Ratio 0.62 0.62 Eosinophils % 0.2 Basophils % 0.0 Nucleated Red Blood Cells % 0.7 H Eosinophils # 0.0 Basophils # 0.0 Nucleated Red Blood Cells # 0.0 Medications Medications Current Medications Ondansetron HCl (Zofran Inj) 4 mg Q6H PRN IV NAUSEA AND/OR VOMITING; Start 06/09 at 04:30 Dutasteride (Avodart) 0.5 mg AM PO Last administered on 06/29/16 09:07; Admin Dose 0.5 MG; Start 06/09/16 at 09:00 Finasteride (Proscar) 5 mg AM PO Last administered on 06/29/16 09:07; Admin Dose 5 MG; Start 06/09/16 at 09:00 Levothyroxine Sodium (Synthroid) 50 mcg DAILY@06 PO Last administered on 06:18; Admin Dose 50 MCG; Start 06/09/16 at 06:00 IV Flush (NS 10 ml) 10 ml PRN PRN IV IV PROTOCOL; Start 06/09/16 at 17:00 Miscellaneous Information 1 ea NOTE XX ; Start 06/11/16 at 08:30 Rifaximin (Xifaxan) 550 mg BID PO Last administered on 06/29/16 21:00; Admin Dose 550 MG; Start 06/11/16 at 14:30 Eye Lubricant (Artificial Tears Oph) 2 drop QID BOTH EYES Last administered on 06/30/16 17:00; Admin Dose 2 DROP; Start 06/12/16 at 13:00 Hydralazine HCl (Apresoline) 10 mg Q2H PRN IV SBP>170; Start 06/12/16 at 17:00 Metoprolol Tartrate (Lopressor) 25 mg BID PO Last administered on 06/29/16 21: 00; Admin Dose 25 MG; Start 06/14/16 at 21:00 Acetaminophen (Tylenol Liquid) 650 mg Q4H PRN NGT PAIN AND OR ELEVATED TEMP Last administered on 06/27/16 01:05; Admin Dose 650 MG; Start 06/17/16 at 12:30 Lactulose (Enulose) 30 gm QID PO Last administered on 06/29/16 21:00; Admin Dose 30 GM; Start 06/24/16 at 21:30 Febuxostat (Uloric) 40 mg DAILY PO Last administered on 06/29/16 09:06; Admin Dose 40 MG; Start 06/25/16 at 15:00 Colchicine (Colchicine) 0.6 mg TID PRN PO gout pain Last administered on 17:41; Admin Dose 0.6 MG; Start 06/25/16 at 21:00 Lorazepam (Ativan) 1 mg Q6H PRN IV ANXIETY; Start 06/25/16 at 18:30 Morphine Sulfate 2 mg 2 mg Q6H PRN IV PAIN LEVEL 7-10 Last administered on 06/30 04:19; Admin Dose 2 MG; Start 06/25/16 at 18:30 Meropenem (Merrem 500 Mg/ 100 ml (Pmx)) 100 ml @ 200 mls/hr Q12 IVPB Last administered on 06/30/16 12:11; Admin Dose 200 MLS/HR; Start 06/26/16 at 17:00 Phytonadione (Vitamin K) 10 mg DAILY IM Last administered on 06/30/16 09:43; Admin Dose 10 MG; Start 06/27/16 at 09:00 Prednisone 40 mg 40 mg DAILY GTB Last administered on 06/29/16 09:07; Admin Dose 40 MG; Start 06/27/16 at 14:30 Potassium Chloride/Dextrose 1,000 ml @ 50 mls/hr Q20H IV Last administered on 06/30/16 06:18; Admin Dose 50 MLS/HR; Start 06/27/16 at 15:30 Linezolid (Zyvox 600mg/D5W (Pmx)) 300 ml @ 300 mls/hr Q12 IVPB Last administered on 06/30/16 12:10; Admin Dose 300 MLS/HR; Start 06/28/16 at 00:30 ; Stop 07/05/16 at 12:00 Metoprolol Tartrate (Lopressor) 5 mg Q4H PRN IV HR>110 Last administered on 15:37; Admin Dose 5 MG; Start 06/28/16 at 16:00 Amiodarone HCl 200 mg 200 mg BID NGT Last administered on 06/29/16 20:59; Admin Dose 200 MG; Start 06/28/16 at 21:00 Octreotide Acetate 1 mg/ Sodium Chloride 100 ml @ 5 mls/hr Q20H IV Last administered on 06/30/16 01:38; Admin Dose 5 MLS/HR; Start 06/29/16 at 22:30 Pantoprazole/ Sodium Chloride (Protonix Iv/NS) 100 ml @ 10 mls/hr Q10H IV Last administered on 06/30/16t 18:46; Admin Dose 10 MLS/HR; Start 06/30/16 at 18 :30 ANGELES ODONNELL 22, 2017 19:18
[2016-07-01] VITALS (24 sets, daily range): BP systolic 91–118; BP diastolic 45–89; PULSE 71–89; RESP 13–21
[2016-07-01] MEDS: ALBUTEROL/IPRATROPIUM (NEB) 3 ML AMP HHN SCH ×6 (00:30→20:31)
[2016-07-01 00:55] LABS: HEMATOCRIT 24.1 % (42.0-52.0); HEMOGLOBIN 7.6 g/dl (14.0-18.0)
[2016-07-01] MEDS: morphine 2 MG INJ IV PRN (01:19)
[2016-07-01] MEDS: PANTOPRAZOLE IV 80 MG in SOD CHLORIDE 0.9% 100 ML IV SCH (04:39)
[2016-07-01] MEDS: D5W + KCL 20 MEQ 1,000 ML IV SCH (05:17)
[2016-07-01] MEDS: LEVOTHYROXINE 50 MCG TAB PO SCH (05:21)
[2016-07-01] MEDS: LORAZEPAM 2 MG INJ IV PRN (05:27)
[2016-07-01 06:16] LABS: ADD SCAN DIFF NO
[2016-07-01 06:32] LABS: ALBUMIN 2.3 g/dl (3.3-4.9)
[2016-07-01 06:33] LABS: POTASSIUM 4.4 mmol/L (3.5-5.1)
[2016-07-01 06:34] LABS: BILIRUBIN,INDIRECT 0.6 mg/dl (0-1.1); BILIRUBIN,TOTAL 0.6 mg/dl (0.2-1.3); CREATININE 1.37 mg/dl (0.61-1.24)
[2016-07-01 06:35] LABS: ALBUMIN/GLOBULIN RATIO 0.69; TOTAL PROTEIN 5.6 g/dl (6.1-8.1)
[2016-07-01 06:36] LABS: CALCIUM 7.7 mg/dl (8.4-10.2); MAGNESIUM 2.5 mg/dl (1.7-2.5)
[2016-07-01 06:38] LABS: BASOPHILS % 0.3 % (0.0-2.0); EOSINOPHILS # 0.3 10^3/ul (0.0-0.5); EOSINOPHILS % 4.9 % (0.0-7.0); HEMATOCRIT 25.9 % (42.0-52.0); HEMOGLOBIN 7.8 g/dl (14.0-18.0); LYMPHOCYTES # 0.9 10^3/ul (0.8-2.9); LYMPHOCYTES % 13.8 % (15.0-51.0); MEAN CORPUSCULAR HGB CONC 30.1 g/dl (32.0-37.0); MEAN CORPUSCULAR VOLUME 92.8 fl (82.0-101.0); MEAN PLATELET VOLUME 10.4 fl (7.4-10.4); MONOCYTE # 0.5 10^3/ul (0.3-0.9); MONOCYTES % 6.7 % (0.0-11.0); NEUTROPHIL # 4.8 10^3/ul (1.6-7.5); NEUTROPHILS % 72.2 % (39.0-77.0); NUCLEATED RED BLOOD CELLS% 0.6 /100WBC (0.0-0.0); PLATELET COUNT 169 10^3/UL (140-415); RED BLOOD COUNT 2.79 10^6/ul (4.70-6.10); RED CELL DISTRIBUTION WIDTH 18.6 % (11.5-14.5); WHITE BLOOD COUNT 6.7 10^3/ul (4.8-10.8)
[2016-07-01] MEDS: MEROPENEM 500 MG/100 ML (PMX) 100 ML IVPB SCH ×2 (08:17→21:16)
[2016-07-01] MEDS: predniSONE 20 MG TAB GTB SCH (08:18)
[2016-07-01] MEDS: LACTULOSE 30ML CUP PO SCH ×4 (08:18→20:59)
[2016-07-01] MEDS: FEBUXOSTAT 40 MG TABLET PO SCH (08:18)
[2016-07-01] MEDS: ARTIFICIAL TEARS 15 ML OPH BOTH EYES SCH ×4 (08:18→21:16)
[2016-07-01] MEDS: DUTASTERIDE 0.5 MG CAP PO SCH (08:18)
[2016-07-01] MEDS: LINEZOLID 600 MG/D5W (PMX) 300 ML IVPB SCH (08:18)
[2016-07-01] MEDS: AMIODARONE 200 MG TAB NGT SCH ×2 (08:18→21:17)
[2016-07-01] MEDS: RIFAXIMIN 550 MG TAB PO SCH ×2 (08:18→21:16)
[2016-07-01] MEDS: FINASTERIDE 5 MG TAB PO SCH (08:19)
[2016-07-01] MEDS: METOPROLOL 25 MG TAB PO SCH ×2 (08:19→21:00)
--- NOTE | 2016-07-01 10:29 | PN ---
Date/Time of Note Date/Time of Note DATE: 07/01/16 TIME: 10:27 Assessment/Plan VTE Prophylaxis VTE Prophylaxis Intervention: SCD's Lines/Catheters IV Catheter Type (from Nrs): PICC Line Central line still needed: Yes Urinary Cath still in place: Yes Reason Cath still needed: other (indicate) Assessment/Plan Chief Complaint/Hosp Course Assessment/Plan 1. Esophageal variceal bleeding/post EVL, follow up with GI, continue PPI and octreotide, recommend to discontinue octreotide if okay by patient financial counselor 2. Alcoholic liver cirrhosis, chronic 3. Paroxysmal atrial fibrillation/atrial flutter, now back in sinus rhythm and remains thus - now in sinus - better rate controlled now. 4. REC NSVT - add BB as toleated - BEA stable now - no new episodes now - no ectopy noted today. 5. Resolving sepsis, on multiple antibiotics, follow up with ID 6. Encephalopathy-likely secondary to history of cirrhosis and alcohol abuse, improving 7. Anemia, , status post transfusions- H/H stable. Continue to monitor 8. Hypernatremia. follow up with electrolytes, start free water via G-tube 9. Coagulopathy, likely secondary to his history of cirrhosis and alcohol abuse 10. PEG, G-tube feeding Transferred to telemetry PT OT eval and treat Problems: Subjective 24 Hr Interval Summary Free Text/Dictation Patient is more awake and alert Denies of any chest pain Complains of having abdominal distention Tolerating PEG tube feeding Exam/Review of Systems Vital Signs Vitals Vital Signs Date Time Temp Pulse Resp B/P Pulse Ox O2 Delivery O2 Flow Rate FiO2 07/01/16 08:11 96 2.0 07/01/16 08:11 74 17 Nasal Cannula 07/01/16 08:00 98.4 91/55 06/29/16 16:32 21 Intake and Output 06/30/16 06/30/16 07/01/16 15:00 23:00 07:00 Intake Total 840 ml 880 ml 370 ml Output Total 440 ml 345 ml 280 ml Balance 400 ml 535 ml 90 ml Exam General: The patient is well-developed, Not in acute distress. HEENT: Atraumatic, normocephalic. The pupils are equal and round . Neck: Supple with full range of motion. Chest: Normal expansion of the thorax during inspiration Lungs: Clear to auscultation bilaterally Heart: Normal S1-S2, Regular rhythm and rate. Abdomen: Soft , nontender, distended , bowel sounds are present. PEG tube in place Extremities: Normal to inspection, no edema no cyanosis Neurologic: The patient is awake, alert Results Result Diagram: 07/01/16 0600 07/01/16 0600 Results 24 hrs Laboratory Tests Test 06/30/16 12:05 06/30/16 18:15 07/01/16 00:24 07/01/16 06:00 Hemoglobin 7.9 L 7.8 L 7.6 L 7.8 L Hematocrit 25.6 L 25.3 L 24.1 L 25.9 L White Blood Count 6.7 Red Blood Count 2.79 L Mean Corpuscular Volume 92.8 Mean Corpuscular Hemoglobin 28.0 L Mean Corpuscular Hemoglobin Concent 30.1 L Red Cell Distribution Width 18.6 H Platelet Count 169 Mean Platelet Volume 10.4 Neutrophils % 72.2 Lymphocytes % 13.8 L Monocytes % 6.7 Eosinophils % 4.9 Basophils % 0.3 Nucleated Red Blood Cells % 0.6 H Neutrophils # 4.8 Lymphocytes # 0.9 Monocytes # 0.5 Eosinophils # 0.3 Basophils # 0.0 Nucleated Red Blood Cells # 0.0 Sodium Level 149 H Potassium Level 4.4 Chloride Level 114 H Carbon Dioxide Level 21 Anion Gap 18 H Blood Urea Nitrogen 48 H Creatinine 1.37 H Glucose Level 89 # Calcium Level 7.7 L Magnesium Level 2.5 Total Bilirubin 0.6 Direct Bilirubin 0.00 Indirect Bilirubin 0.6 Aspartate Amino Transf (AST/SGOT) 37 Alanine Aminotransferase (ALT/SGPT) 28 Alkaline Phosphatase 94 Total Protein 5.6 L Albumin 2.3 L Globulin 3.30 H Albumin/Globulin Ratio 0.69 Medications Medications Current Medications Ondansetron HCl (Zofran Inj) 4 mg Q6H PRN IV NAUSEA AND/OR VOMITING; Start 06/09 at 04:30 Dutasteride (Avodart) 0.5 mg AM PO Last administered on 07/01/16 08:18; Admin Dose 0.5 MG; Start 06/09/16 at 09:00 Finasteride (Proscar) 5 mg AM PO Last administered on 07/01/16 08:19; Admin Dose 5 MG; Start 06/09/16 at 09:00 Levothyroxine Sodium (Synthroid) 50 mcg DAILY@06 PO Last administered on 05:21; Admin Dose 50 MCG; Start 06/09/16 at 06:00 IV Flush (NS 10 ml) 10 ml PRN PRN IV IV PROTOCOL; Start 06/09/16 at 17:00 Miscellaneous Information 1 ea NOTE XX ; Start 06/11/16 at 08:30 Rifaximin (Xifaxan) 550 mg BID PO Last administered on 07/01/16 08:18; Admin Dose 550 MG; Start 06/11/16 at 14:30 Eye Lubricant (Artificial Tears Oph) 2 drop QID BOTH EYES Last administered on 07/01/16 08:18; Admin Dose 2 DROP; Start 06/12/16 at 13:00 Hydralazine HCl (Apresoline) 10 mg Q2H PRN IV SBP>170; Start 06/12/16 at 17:00 Metoprolol Tartrate (Lopressor) 25 mg BID PO Last administered on 06/30/16 21: 16; Admin Dose 25 MG; Start 06/14/16 at 21:00 Acetaminophen (Tylenol Liquid) 650 mg Q4H PRN NGT PAIN AND OR ELEVATED TEMP Last administered on 06/27/16 01:05; Admin Dose 650 MG; Start 06/17/16 at 12:30 Lactulose (Enulose) 30 gm QID PO Last administered on 07/01/16 08:18; Admin Dose 30 GM; Start 06/24/16 at 21:30 Febuxostat (Uloric) 40 mg DAILY PO Last administered on 07/01/16 08:18; Admin Dose 40 MG; Start 06/25/16 at 15:00 Colchicine (Colchicine) 0.6 mg TID PRN PO gout pain Last administered on 17:41; Admin Dose 0.6 MG; Start 06/25/16 at 21:00 Lorazepam (Ativan) 1 mg Q6H PRN IV ANXIETY Last administered on 07/01/16 05:27 ; Admin Dose 1 MG; Start 06/25/16 at 18:30 Morphine Sulfate 2 mg 2 mg Q6H PRN IV PAIN LEVEL 7-10 Last administered on 07/01 01:19; Admin Dose 2 MG; Start 06/25/16 at 18:30 Meropenem (Merrem 500 Mg/ 100 ml (Pmx)) 100 ml @ 200 mls/hr Q12 IVPB Last administered on 07/01/16 08:17; Admin Dose 200 MLS/HR; Start 06/26/16 at 17:00 Prednisone 40 mg 40 mg DAILY GTB Last administered on 07/01/16 08:18; Admin Dose 40 MG; Start 06/27/16 at 14:30 Potassium Chloride/Dextrose 1,000 ml @ 50 mls/hr Q20H IV Last administered on 07/01/16 05:17; Admin Dose 50 MLS/HR; Start 06/27/16 at 15:30 Linezolid (Zyvox 600mg/D5W (Pmx)) 300 ml @ 300 mls/hr Q12 IVPB Last administered on 07/01/16 08:18; Admin Dose 300 MLS/HR; Start 06/28/16 at 00:30 ; Stop 07/05/16 at 12:00 Metoprolol Tartrate (Lopressor) 5 mg Q4H PRN IV HR>110 Last administered on 15:37; Admin Dose 5 MG; Start 06/28/16 at 16:00 Amiodarone HCl 200 mg 200 mg BID NGT Last administered on 07/01/16 08:18; Admin Dose 200 MG; Start 06/28/16 at 21:00 Octreotide Acetate 1 mg/ Sodium Chloride 100 ml @ 5 mls/hr Q20H IV Last administered on 06/30/16 22:31; Admin Dose 5 MLS/HR; Start 06/29/16 at 22:30 Pantoprazole/ Sodium Chloride (Protonix Iv/NS) 100 ml @ 10 mls/hr Q10H IV Last administered on 07/01/16 04:39; Admin Dose 10 MLS/HR; Start 06/30/16 at 18 :30 NHI AHMADI MD Jul 01, 2016 10:29
[2016-07-01] MEDS ORDERED: ALBUMIN HUMAN 25% 100 ML IV ONE (10:30)
--- NOTE | 2016-07-01 11:30 | CONS ---
Date/Time of Note Date/Time of Note DATE: 07/01/16 TIME: 11:27 Assessment/Plan Assessment/Plan Chief Complaint/Hosp Course IMPRESSION: 1. Paroxysmal atrial fibrillation/atrial flutter-now SR on PO amio 2. Abnormal electrocardiogram. Assess for acute coronary syndrome. 3. Hypotension, now improved. 4. Gastrointestinal bleed.-s/p EGD with esophageal ulcers/varices s/p banding 5. Cirrhosiss/p banding of varices 6. Encephalopathy-ongoing 7. Anemia, severe, status post transfusions. 8. Hypernatremia-improved 9. Coagulopathy 10.Fever 11.PNA 12.ARF Recc: -Tele -Continue amiodarone PO as patient able to take -Continue BB as tolerated/when able to take po's -No asa/systemic anti-coag secondary to anemia/GIB -Follow MS closely -Follow Hgb closely -F/U cx data and continue abx's -Holding lasix given development of ARF -Continue octreotide for now Problems: Consultation Date/Type/Reason Admit Date/Time Jun 09, 2016 at 04:01 Initial Consult Date 06/09/16 Type of Consultation: Cardiology Reason for Consultation PAF/AFL Referring Provider: MAURY BENITEZ MD Exam/Review of Systems Vital Signs Vitals Vital Signs Date Time Temp Pulse Resp B/P Pulse Ox O2 Delivery O2 Flow Rate FiO2 07/01/16 11:00 83 16 97/59 98 Nasal Cannula 07/01/16 08:11 2.0 07/01/16 08:00 98.4 06/29/16 16:32 21 Intake and Output 06/30/16 06/30/16 07/01/16 15:00 23:00 07:00 Intake Total 840 ml 880 ml 370 ml Output Total 440 ml 345 ml 280 ml Balance 400 ml 535 ml 90 ml Exam Review of Systems: CONSTITUTIONAL: No fevers, chills. PULMONARY: No sob CARDIOVASCULAR: No chest pain/palpitations GASTROINTESTINAL: No nausea/vomiting. GENITOURINARY: No hematuria/dysuria. MUSCULOSKELETAL: No myagias/arthalgias. PSYCHIATRIC: The patient denies depression. NEUROLOGIC: lethargic Constitutional: alert Psych: confusion Head: normocephalic ENMT: mucosa pink and moist Neck: jvd (9 cm water), supple Respiratory: diminished breath sounds (at bases/B) Cardiovascular: regular rate and rhythm Gastrointestinal: non-tender, soft Musculoskeletal: muscle tone (normal) Extremities: edema (trace) Neurological: confused, lethargic Results Result Diagram: 07/01/16 0600 07/01/16 0600 Results 24 hrs Laboratory Tests Test 06/30/16 12:05 06/30/16 18:15 07/01/16 00:24 07/01/16 06:00 Hemoglobin 7.9 L 7.8 L 7.6 L 7.8 L Hematocrit 25.6 L 25.3 L 24.1 L 25.9 L White Blood Count 6.7 Red Blood Count 2.79 L Mean Corpuscular Volume 92.8 Mean Corpuscular Hemoglobin 28.0 L Mean Corpuscular Hemoglobin Concent 30.1 L Red Cell Distribution Width 18.6 H Platelet Count 169 Mean Platelet Volume 10.4 Neutrophils % 72.2 Lymphocytes % 13.8 L Monocytes % 6.7 Eosinophils % 4.9 Basophils % 0.3 Nucleated Red Blood Cells % 0.6 H Neutrophils # 4.8 Lymphocytes # 0.9 Monocytes # 0.5 Eosinophils # 0.3 Basophils # 0.0 Nucleated Red Blood Cells # 0.0 Sodium Level 149 H Potassium Level 4.4 Chloride Level 114 H Carbon Dioxide Level 21 Anion Gap 18 H Blood Urea Nitrogen 48 H Creatinine 1.37 H Glucose Level 89 # Calcium Level 7.7 L Magnesium Level 2.5 Total Bilirubin 0.6 Direct Bilirubin 0.00 Indirect Bilirubin 0.6 Aspartate Amino Transf (AST/SGOT) 37 Alanine Aminotransferase (ALT/SGPT) 28 Alkaline Phosphatase 94 Total Protein 5.6 L Albumin 2.3 L Globulin 3.30 H Albumin/Globulin Ratio 0.69 Medications Medications Current Medications Ondansetron HCl (Zofran Inj) 4 mg Q6H PRN IV NAUSEA AND/OR VOMITING; Start 06/09 at 04:30 Dutasteride (Avodart) 0.5 mg AM PO Last administered on 07/01/16 08:18; Admin Dose 0.5 MG; Start 06/09/16 at 09:00 Finasteride (Proscar) 5 mg AM PO Last administered on 07/01/16 08:19; Admin Dose 5 MG; Start 06/09/16 at 09:00 Levothyroxine Sodium (Synthroid) 50 mcg DAILY@06 PO Last administered on 05:21; Admin Dose 50 MCG; Start 06/09/16 at 06:00 IV Flush (NS 10 ml) 10 ml PRN PRN IV IV PROTOCOL; Start 06/09/16 at 17:00 Miscellaneous Information 1 ea NOTE XX ; Start 06/11/16 at 08:30 Rifaximin (Xifaxan) 550 mg BID PO Last administered on 07/01/16 08:18; Admin Dose 550 MG; Start 06/11/16 at 14:30 Eye Lubricant (Artificial Tears Oph) 2 drop QID BOTH EYES Last administered on 07/01/16 08:18; Admin Dose 2 DROP; Start 06/12/16 at 13:00 Hydralazine HCl (Apresoline) 10 mg Q2H PRN IV SBP>170; Start 06/12/16 at 17:00 Metoprolol Tartrate (Lopressor) 25 mg BID PO Last administered on 06/30/16 21: 16; Admin Dose 25 MG; Start 06/14/16 at 21:00 Acetaminophen (Tylenol Liquid) 650 mg Q4H PRN NGT PAIN AND OR ELEVATED TEMP Last administered on 06/27/16 01:05; Admin Dose 650 MG; Start 06/17/16 at 12:30 Lactulose (Enulose) 30 gm QID PO Last administered on 07/01/16 08:18; Admin Dose 30 GM; Start 06/24/16 at 21:30 Febuxostat (Uloric) 40 mg DAILY PO Last administered on 07/01/16 08:18; Admin Dose 40 MG; Start 06/25/16 at 15:00 Colchicine (Colchicine) 0.6 mg TID PRN PO gout pain Last administered on 17:41; Admin Dose 0.6 MG; Start 06/25/16 at 21:00 Lorazepam (Ativan) 1 mg Q6H PRN IV ANXIETY Last administered on 07/01/16 05:27 ; Admin Dose 1 MG; Start 06/25/16 at 18:30 Morphine Sulfate 2 mg 2 mg Q6H PRN IV PAIN LEVEL 7-10 Last administered on 07/01 01:19; Admin Dose 2 MG; Start 06/25/16 at 18:30 Meropenem (Merrem 500 Mg/ 100 ml (Pmx)) 100 ml @ 200 mls/hr Q12 IVPB Last administered on 07/01/16 08:17; Admin Dose 200 MLS/HR; Start 06/26/16 at 17:00 Prednisone 40 mg 40 mg DAILY GTB Last administered on 07/01/16 08:18; Admin Dose 40 MG; Start 06/27/16 at 14:30 Potassium Chloride/Dextrose (D5W + KCl 20 Meq) 1,000 ml @ 50 mls/hr Q20H IV Last administered on 07/01/16 05:17; Admin Dose 50 MLS/HR; Start 06/27/16 at 15 :30 Metoprolol Tartrate (Lopressor) 5 mg Q4H PRN IV HR>110 Last administered on 15:37; Admin Dose 5 MG; Start 06/28/16 at 16:00 Amiodarone HCl 200 mg 200 mg BID NGT Last administered on 07/01/16 08:18; Admin Dose 200 MG; Start 06/28/16 at 21:00 Octreotide Acetate 1 mg/ Sodium Chloride 100 ml @ 5 mls/hr Q20H IV Last administered on 06/30/16 22:31; Admin Dose 5 MLS/HR; Start 06/29/16 at 22:30 Pantoprazole 80 mg/Sodium Chloride 100 ml @ 10 mls/hr Q10H IV Last administered on 07/01/16 04:39; Admin Dose 10 MLS/HR; Start 06/30/16 at 18:30 Albumin Human (Albumin Human 25%) 100 ml @ 100 mls/hr ONCE ONCE IV ; Start at 10:30; Stop 07/01/16 at 11:29 ANGELES ODONNELL Jul 01, 2016 11:30
--- NOTE | 2016-07-01 12:45 | CONS ---
Date/Time of Note Date/Time of Note DATE: 07/01/16 TIME: 12:40 Assessment/Plan Assessment/Plan Additional Assessment/Plan Assessment/Plan Hematochezia Blood in gastrostomy tube Esophageal variceal bleeding/post EVL Anemia secondary to above * S/p repeat EGD 06/30: Post EVL ulcers. Treat with PPI and octreotide drips 24 hours. DC both if no bleeding after 24 hours. Okay to start tube feed. * Monitor hemoglobin every 8 hours, transfuse 2 units for hemoglobin less than 7.5 Alcoholic cirrhosis * Post variceal bleeding/post EVL * Portal encephalopathy * Ascites/Neg U/S * Coagulopathy * rn support services consult in process. Family wants liver transplant and transfer to tertiary center. Unsafe swallowing/failed swallow eval/high risk for aspiration * Post uneventful PEG/Tolerating feedings * EGD with PEG placement 06/28/16: Esophageal ulcers with some old clots in the area, but no active bleeding. Nasogastric tube trauma present. Uneventful percutaneous endoscopic gastrostomy tube placement with placement of Irish 20 gastrostomy tube. Further recommendations depend on clinical course Patient seen in collaboration with Dr. Arce Consultation Date/Type/Reason Admit Date/Time Jun 09, 2016 at 04:01 Initial Consult Date 06/09/16 Type of Consultation: Gastroenterology Referring Provider: MAURY BENITEZ MD 24 HR Interval Summary Free Text/Dictation GI bleeding scan order placed Status post emergent EGD. Family would like to get process for liver transplant started Consult to social work faculty member placed Exam/Review of Systems Vital Signs Vitals Vital Signs Date Time Temp Pulse Resp B/P Pulse Ox O2 Delivery O2 Flow Rate FiO2 07/01/16 11:00 83 16 97/59 98 Nasal Cannula 07/01/16 08:11 2.0 07/01/16 08:00 98.4 06/29/16 16:32 21 Intake and Output 06/30/16 06/30/16 07/01/16 15:00 23:00 07:00 Intake Total 840 ml 880 ml 390 ml Output Total 440 ml 345 ml 310 ml Balance 400 ml 535 ml 80 ml Exam Constitutional: alert, confused well developed Psych: nl mood/affect Head: normocephalic Eyes: EOMI, nl conjunctiva, nl lids ENMT: nl external ears & nose, nl lips & teeth, nl nasal mucosa & septum Respiratory: clear to auscultation, normal air movement Cardiovascular: regular rate and rhythm Gastrointestinal: soft, non-tender Musculoskeletal: nl extremities to inspection Neurological: [employer] GENERAL II-XII intact Results Result Diagram: 07/01/16 0600 07/01/16 0600 Results 24 hrs Laboratory Tests Test 06/30/16 18:15 07/01/16 00:24 07/01/16 06:00 Hemoglobin 7.8 L 7.6 L 7.8 L Hematocrit 25.3 L 24.1 L 25.9 L White Blood Count 6.7 Red Blood Count 2.79 L Mean Corpuscular Volume 92.8 Mean Corpuscular Hemoglobin 28.0 L Mean Corpuscular Hemoglobin Concent 30.1 L Red Cell Distribution Width 18.6 H Platelet Count 169 Mean Platelet Volume 10.4 Neutrophils % 72.2 Lymphocytes % 13.8 L Monocytes % 6.7 Eosinophils % 4.9 Basophils % 0.3 Nucleated Red Blood Cells % 0.6 H Neutrophils # 4.8 Lymphocytes # 0.9 Monocytes # 0.5 Eosinophils # 0.3 Basophils # 0.0 Nucleated Red Blood Cells # 0.0 Sodium Level 149 H Potassium Level 4.4 Chloride Level 114 H Carbon Dioxide Level 21 Anion Gap 18 H Blood Urea Nitrogen 48 H Creatinine 1.37 H Glucose Level 89 # Calcium Level 7.7 L Magnesium Level 2.5 Total Bilirubin 0.6 Direct Bilirubin 0.00 Indirect Bilirubin 0.6 Aspartate Amino Transf (AST/SGOT) 37 Alanine Aminotransferase (ALT/SGPT) 28 Alkaline Phosphatase 94 Total Protein 5.6 L Albumin 2.3 L Globulin 3.30 H Albumin/Globulin Ratio 0.69 Medications Medications Current Medications Ondansetron HCl (Zofran Inj) 4 mg Q6H PRN IV NAUSEA AND/OR VOMITING; Start 06/09 at 04:30 Dutasteride (Avodart) 0.5 mg AM PO Last administered on 07/01/16 08:18; Admin Dose 0.5 MG; Start 06/09/16 at 09:00 Finasteride (Proscar) 5 mg AM PO Last administered on 07/01/16 08:19; Admin Dose 5 MG; Start 06/09/16 at 09:00 Levothyroxine Sodium (Synthroid) 50 mcg DAILY@06 PO Last administered on 05:21; Admin Dose 50 MCG; Start 06/09/16 at 06:00 IV Flush (NS 10 ml) 10 ml PRN PRN IV IV PROTOCOL; Start 06/09/16 at 17:00 Miscellaneous Information 1 ea NOTE XX ; Start 06/11/16 at 08:30 Rifaximin (Xifaxan) 550 mg BID PO Last administered on 07/01/16 08:18; Admin Dose 550 MG; Start 06/11/16 at 14:30 Eye Lubricant (Artificial Tears Oph) 2 drop QID BOTH EYES Last administered on 07/01/16 08:18; Admin Dose 2 DROP; Start 06/12/16 at 13:00 Hydralazine HCl (Apresoline) 10 mg Q2H PRN IV SBP>170; Start 06/12/16 at 17:00 Metoprolol Tartrate (Lopressor) 25 mg BID PO Last administered on 06/30/16 21: 16; Admin Dose 25 MG; Start 06/14/16 at 21:00 Acetaminophen (Tylenol Liquid) 650 mg Q4H PRN NGT PAIN AND OR ELEVATED TEMP Last administered on 06/27/16 01:05; Admin Dose 650 MG; Start 06/17/16 at 12:30 Lactulose (Enulose) 30 gm QID PO Last administered on 07/01/16 08:18; Admin Dose 30 GM; Start 06/24/16 at 21:30 Febuxostat (Uloric) 40 mg DAILY PO Last administered on 07/01/16 08:18; Admin Dose 40 MG; Start 06/25/16 at 15:00 Colchicine (Colchicine) 0.6 mg TID PRN PO gout pain Last administered on 17:41; Admin Dose 0.6 MG; Start 06/25/16 at 21:00 Lorazepam (Ativan) 1 mg Q6H PRN IV ANXIETY Last administered on 07/01/16 05:27 ; Admin Dose 1 MG; Start 06/25/16 at 18:30 Morphine Sulfate 2 mg 2 mg Q6H PRN IV PAIN LEVEL 7-10 Last administered on 07/01 01:19; Admin Dose 2 MG; Start 06/25/16 at 18:30 Meropenem (Merrem 500 Mg/ 100 ml (Pmx)) 100 ml @ 200 mls/hr Q12 IVPB Last administered on 07/01/16 08:17; Admin Dose 200 MLS/HR; Start 06/26/16 at 17:00 Prednisone 40 mg 40 mg DAILY GTB Last administered on 07/01/16 08:18; Admin Dose 40 MG; Start 06/27/16 at 14:30 Potassium Chloride/Dextrose (D5W + KCl 20 Meq) 1,000 ml @ 50 mls/hr Q20H IV Last administered on 07/01/16 05:17; Admin Dose 50 MLS/HR; Start 06/27/16 at 15 :30 Metoprolol Tartrate (Lopressor) 5 mg Q4H PRN IV HR>110 Last administered on 15:37; Admin Dose 5 MG; Start 06/28/16 at 16:00 Amiodarone HCl 200 mg 200 mg BID NGT Last administered on 07/01/16 08:18; Admin Dose 200 MG; Start 06/28/16 at 21:00 Octreotide Acetate 1 mg/ Sodium Chloride 100 ml @ 5 mls/hr Q20H IV Last administered on 06/30/16 22:31; Admin Dose 5 MLS/HR; Start 06/29/16 at 22:30 Pantoprazole/ Sodium Chloride (Protonix Iv/NS) 100 ml @ 10 mls/hr Q10H IV Last administered on 07/01/16 04:39; Admin Dose 10 MLS/HR; Start 06/30/16 at 18 :30 KODY SHELDON Jul 01, 2016 12:45
--- NOTE | 2016-07-01 13:02 | CONS ---
Date/Time of Note Date/Time of Note DATE: 07/01/16 TIME: 12:59 Assessment/Plan Assessment/Plan Chief Complaint/Hosp Course SUBJECTIVE: No events, awake, confused, looks comfortable, no fevers ANTIMICROBIALS: 1. Zyvox. 2. Merrem, day #6 antibiotics. INDWELLINGS: PICC line, [place], PEG, rectal tube. PHYSICAL EXAMINATION: GENERAL: This is a chronically ill-appearing, elderly man who is in no distress. HEENT: Head atraumatic, normocephalic. Sclerae anicteric. Buccal mucosa dry. NECK: Supple. CHEST: Rise symmetrical. Breath sounds diminished to bases. HEART: S1, S2. ABDOMEN: Soft. Bowel tones present. EXTREMITIES: Without cyanosis. Bilateral trace edema. ASSESSMENT: 1. S/p gastrointestinal bleeding==> EGD neg, on Sandostatin drip, status post blood transfusion. 2. History of variceal banding. 3. Hepatic encephalopathy. 4. Alcoholic liver cirrhosis. 5. Dysphagia, status post percutaneous endoscopic gastrostomy placement. 6. Acute renal failure. 7. Vancomycin-resistant enterococci stool colonization. 8. History of familial Mediterranean fever. 9. S/p fevers==> resolved 2 to abx vs prednisone PLAN: Hemodynamically stable, continue present care, will keep on abx for couple more days, f/u urine cx, f/u GI rec-s, continue aspiration precautions DW RN Problems: Consultation Date/Type/Reason Admit Date/Time Jun 09, 2016 at 04:01 Initial Consult Date 06/09/16 Type of Consultation: ID Referring Provider: MAURY BENITEZ MD Exam/Review of Systems Vital Signs Vitals Vital Signs Date Time Temp Pulse Resp B/P Pulse Ox O2 Delivery O2 Flow Rate FiO2 07/01/16 12:00 98.1 81 17 113/69 96 Nasal Cannula 3.0 06/29/16 16:32 21 Intake and Output 06/30/16 06/30/16 07/01/16 15:00 23:00 07:00 Intake Total 840 ml 880 ml 390 ml Output Total 440 ml 345 ml 310 ml Balance 400 ml 535 ml 80 ml Results Result Diagram: 07/01/16 0600 07/01/16 0600 Results 24 hrs Laboratory Tests Test 06/30/16 18:15 07/01/16 00:24 07/01/16 06:00 Hemoglobin 7.8 L 7.6 L 7.8 L Hematocrit 25.3 L 24.1 L 25.9 L White Blood Count 6.7 Red Blood Count 2.79 L Mean Corpuscular Volume 92.8 Mean Corpuscular Hemoglobin 28.0 L Mean Corpuscular Hemoglobin Concent 30.1 L Red Cell Distribution Width 18.6 H Platelet Count 169 Mean Platelet Volume 10.4 Neutrophils % 72.2 Lymphocytes % 13.8 L Monocytes % 6.7 Eosinophils % 4.9 Basophils % 0.3 Nucleated Red Blood Cells % 0.6 H Neutrophils # 4.8 Lymphocytes # 0.9 Monocytes # 0.5 Eosinophils # 0.3 Basophils # 0.0 Nucleated Red Blood Cells # 0.0 Sodium Level 149 H Potassium Level 4.4 Chloride Level 114 H Carbon Dioxide Level 21 Anion Gap 18 H Blood Urea Nitrogen 48 H Creatinine 1.37 H Glucose Level 89 # Calcium Level 7.7 L Magnesium Level 2.5 Total Bilirubin 0.6 Direct Bilirubin 0.00 Indirect Bilirubin 0.6 Aspartate Amino Transf (AST/SGOT) 37 Alanine Aminotransferase (ALT/SGPT) 28 Alkaline Phosphatase 94 Total Protein 5.6 L Albumin 2.3 L Globulin 3.30 H Albumin/Globulin Ratio 0.69 Medications Medications Current Medications Ondansetron HCl (Zofran Inj) 4 mg Q6H PRN IV NAUSEA AND/OR VOMITING; Start 06/09 at 04:30 Dutasteride (Avodart) 0.5 mg AM PO Last administered on 07/01/16 08:18; Admin Dose 0.5 MG; Start 06/09/16 at 09:00 Finasteride (Proscar) 5 mg AM PO Last administered on 07/01/16 08:19; Admin Dose 5 MG; Start 06/09/16 at 09:00 Levothyroxine Sodium (Synthroid) 50 mcg DAILY@06 PO Last administered on 05:21; Admin Dose 50 MCG; Start 06/09/16 at 06:00 IV Flush (NS 10 ml) 10 ml PRN PRN IV IV PROTOCOL; Start 06/09/16 at 17:00 Miscellaneous Information 1 ea NOTE XX ; Start 06/11/16 at 08:30 Rifaximin (Xifaxan) 550 mg BID PO Last administered on 07/01/16 08:18; Admin Dose 550 MG; Start 06/11/16 at 14:30 Eye Lubricant (Artificial Tears Oph) 2 drop QID BOTH EYES Last administered on 07/01/16 08:18; Admin Dose 2 DROP; Start 06/12/16 at 13:00 Hydralazine HCl (Apresoline) 10 mg Q2H PRN IV SBP>170; Start 06/12/16 at 17:00 Metoprolol Tartrate (Lopressor) 25 mg BID PO Last administered on 06/30/16 21: 16; Admin Dose 25 MG; Start 06/14/16 at 21:00 Acetaminophen (Tylenol Liquid) 650 mg Q4H PRN NGT PAIN AND OR ELEVATED TEMP Last administered on 06/27/16 01:05; Admin Dose 650 MG; Start 06/17/16 at 12:30 Lactulose (Enulose) 30 gm QID PO Last administered on 07/01/16 08:18; Admin Dose 30 GM; Start 06/24/16 at 21:30 Febuxostat (Uloric) 40 mg DAILY PO Last administered on 07/01/16 08:18; Admin Dose 40 MG; Start 06/25/16 at 15:00 Colchicine (Colchicine) 0.6 mg TID PRN PO gout pain Last administered on 17:41; Admin Dose 0.6 MG; Start 06/25/16 at 21:00 Lorazepam (Ativan) 1 mg Q6H PRN IV ANXIETY Last administered on 07/01/16 05:27 ; Admin Dose 1 MG; Start 06/25/16 at 18:30 Morphine Sulfate 2 mg 2 mg Q6H PRN IV PAIN LEVEL 7-10 Last administered on 07/01 01:19; Admin Dose 2 MG; Start 06/25/16 at 18:30 Meropenem (Merrem 500 Mg/ 100 ml (Pmx)) 100 ml @ 200 mls/hr Q12 IVPB Last administered on 07/01/16 08:17; Admin Dose 200 MLS/HR; Start 06/26/16 at 17:00 Prednisone 40 mg 40 mg DAILY GTB Last administered on 07/01/16 08:18; Admin Dose 40 MG; Start 06/27/16 at 14:30 Potassium Chloride/Dextrose (D5W + KCl 20 Meq) 1,000 ml @ 50 mls/hr Q20H IV Last administered on 07/01/16 05:17; Admin Dose 50 MLS/HR; Start 06/27/16 at 15 :30 Metoprolol Tartrate (Lopressor) 5 mg Q4H PRN IV HR>110 Last administered on 15:37; Admin Dose 5 MG; Start 06/28/16 at 16:00 Amiodarone HCl (Cordarone) 200 mg BID NGT Last administered on 07/01/16 08:18 ; Admin Dose 200 MG; Start 06/28/16 at 21:00 Pantoprazole (Protonix Iv) 40 mg BID@06,18 IV ; Start 07/01/16 at 18:00 STACIE TAMEZ NP Jul 01, 2016 13:02
[2016-07-01 13:34] LABS: HEMATOCRIT 24.8 % (42.0-52.0); HEMOGLOBIN 7.5 g/dl (14.0-18.0)
--- NOTE | 2016-07-01 15:44 | RADRPT ---
PROCEDURE: US Abdomen (limited). CLINICAL INDICATION: Abdominal pain and distension. TECHNIQUE: Multiple real-time longitudinal and transverse images of the four quadrants of the abdo men were acquired utilizing a curved array transducer. Images were reviewed on a high-resolution PAC S workstation. COMPARISON: None FINDINGS: There is no free fluid in the abdomen. IMPRESSION: 1. No free fluid in the abdomen. 2. Paracentesis was not performed. RPTAT: QQ .Emmanuel Murillo MD, MD Date Time Electronically viewed and signed by .Emmanuel Murillo MD, MD on 07/01/2016 15:44 .R/
[2016-07-01] MEDS ORDERED: SOD CHLORIDE 0.9% 250 ML IV* ONE (17:09)
[2016-07-01] MEDS: PANTOPRAZOLE 40 MG INJ IV SCH (17:19)
[2016-07-01] MEDS ORDERED: FUROSEMIDE 20 MG INJ IV ONE (17:30)
[2016-07-01 17:31] LABS: HEMATOCRIT 22.8 % (42.0-52.0); HEMOGLOBIN 7.1 g/dl (14.0-18.0)
[2016-07-01 17:42] LABS: INR 1.48; PARTIAL THROMBOPLASTIN TIME 30.6 Sec (25.0-35.0); PT RATIO 1.4
--- NOTE | 2016-07-01 23:01 | CONS ---
Date/Time of Note Date/Time of Note DATE: 07/01/16 TIME: 22:58 Assessment/Plan Assessment/Plan Chief Complaint/Hosp Course Anemia - COMPLEX, MULTIFACTORIAL WITH COMPONENT ACD, ACUTE BLOOD LOSS AND SEVERE IRON DEFICIENCY IN THE PAST * Esophageal variceal bleeding/post EVL * CONT TO MONITOR BLOOD COUNT CLOSELY * OBSERVE FOR BLEEDING AND HEMOLYSIS * PRBC NEEDED * DROP H/H POST GT * OBSERVE FOR BLEEDING * GI F-UP Septicemia with bandemia and fever. Acute gout. Alcoholic cirrhosis * Post variceal bleeding/post EVL * Portal encephalopathy * Ascites * Unsafe swallowing/failed swallow eval/high risk for aspiration * Family now agreeable to EGD plus PEG. Will need to have paracenteses prior to procedure. Family was informed of increased risk given comorbidities Coagulopathy VIT K POST FFP PRIOR TO PROCEDURE FMF FEVER IMPROVED ON ATB AND COLCHICINE Problems: Consultation Date/Type/Reason Admit Date/Time Jun 09, 2016 at 04:01 Initial Consult Date 06/09/16 Type of Consultation: HEMEONC Referring Provider: MAURY BENITEZ MD 24 HR Interval Summary Free Text/Dictation ALL NOTED D/W SON GI bleeding scan order placed Status post emergent EGD. Family would like to get process for liver transplant started Exam/Review of Systems Vital Signs Vitals Vital Signs Date Time Temp Pulse Resp B/P Pulse Ox O2 Delivery O2 Flow Rate FiO2 07/01/16 20:31 98 2.0 07/01/16 20:31 75 14 Nasal Cannula 07/01/16 19:00 118/65 07/01/16 16:00 98.0 06/29/16 16:32 21 Intake and Output 06/30/16 06/30/16 07/01/16 15:00 23:00 07:00 Intake Total 840 ml 880 ml 390 ml Output Total 440 ml 345 ml 310 ml Balance 400 ml 535 ml 80 ml Exam Constitutional: alert, confused well developed Psych: nl mood/affect Head: normocephalic Eyes: EOMI, nl conjunctiva, nl lids ENMT: nl external ears & nose, nl lips & teeth, nl nasal mucosa & septum Respiratory: clear to auscultation, normal air movement Cardiovascular: regular rate and rhythm Gastrointestinal: soft, non-tender Musculoskeletal: nl extremities to inspection Neurological: ASPHALT DAUBER II-XII intact Results Result Diagram: 07/01/16 1718 07/01/16 0600 Results 24 hrs Laboratory Tests Test 07/01/16 00:24 07/01/16 06:00 07/01/16 13:26 07/01/16 17:18 Hemoglobin 7.6 L 7.8 L 7.5 L 7.1 L Hematocrit 24.1 L 25.9 L 24.8 L 22.8 L White Blood Count 6.7 Red Blood Count 2.79 L Mean Corpuscular Volume 92.8 Mean Corpuscular Hemoglobin 28.0 L Mean Corpuscular Hemoglobin Concent 30.1 L Red Cell Distribution Width 18.6 H Platelet Count 169 Mean Platelet Volume 10.4 Neutrophils % 72.2 Lymphocytes % 13.8 L Monocytes % 6.7 Eosinophils % 4.9 Basophils % 0.3 Nucleated Red Blood Cells % 0.6 H Neutrophils # 4.8 Lymphocytes # 0.9 Monocytes # 0.5 Eosinophils # 0.3 Basophils # 0.0 Nucleated Red Blood Cells # 0.0 Sodium Level 149 H Potassium Level 4.4 Chloride Level 114 H Carbon Dioxide Level 21 Anion Gap 18 H Blood Urea Nitrogen 48 H Creatinine 1.37 H Glucose Level 89 # Calcium Level 7.7 L Magnesium Level 2.5 Total Bilirubin 0.6 Direct Bilirubin 0.00 Indirect Bilirubin 0.6 Aspartate Amino Transf (AST/SGOT) 37 Alanine Aminotransferase (ALT/SGPT) 28 Alkaline Phosphatase 94 Total Protein 5.6 L Albumin 2.3 L Globulin 3.30 H Albumin/Globulin Ratio 0.69 Prothrombin Time 18.0 H Prothrombin Time Ratio 1.4 INR International Normalized Ratio 1.48 Activated Partial Thromboplast Time 30.6 Medications Medications Current Medications Ondansetron HCl (Zofran Inj) 4 mg Q6H PRN IV NAUSEA AND/OR VOMITING; Start 06/09 at 04:30 Dutasteride (Avodart) 0.5 mg AM PO Last administered on 07/01/16 08:18; Admin Dose 0.5 MG; Start 06/09/16 at 09:00 Finasteride (Proscar) 5 mg AM PO Last administered on 07/01/16 08:19; Admin Dose 5 MG; Start 06/09/16 at 09:00 Levothyroxine Sodium (Synthroid) 50 mcg DAILY@06 PO Last administered on 05:21; Admin Dose 50 MCG; Start 06/09/16 at 06:00 IV Flush (NS 10 ml) 10 ml PRN PRN IV IV PROTOCOL; Start 06/09/16 at 17:00 Miscellaneous Information 1 ea NOTE XX ; Start 06/11/16 at 08:30 Rifaximin (Xifaxan) 550 mg BID PO Last administered on 07/01/16 21:16; Admin Dose 550 MG; Start 06/11/16 at 14:30 Eye Lubricant (Artificial Tears Oph) 2 drop QID BOTH EYES Last administered on 07/01/16 21:16; Admin Dose 2 DROP; Start 06/12/16 at 13:00 Hydralazine HCl (Apresoline) 10 mg Q2H PRN IV SBP>170; Start 06/12/16 at 17:00 Metoprolol Tartrate (Lopressor) 25 mg BID PO Last administered on 06/30/16 21: 16; Admin Dose 25 MG; Start 06/14/16 at 21:00 Acetaminophen (Tylenol Liquid) 650 mg Q4H PRN NGT PAIN AND OR ELEVATED TEMP Last administered on 06/27/16 01:05; Admin Dose 650 MG; Start 06/17/16 at 12:30 Lactulose (Enulose) 30 gm QID PO Last administered on 07/01/16 17:19; Admin Dose 30 GM; Start 06/24/16 at 21:30 Febuxostat (Uloric) 40 mg DAILY PO Last administered on 07/01/16 08:18; Admin Dose 40 MG; Start 06/25/16 at 15:00 Colchicine (Colchicine) 0.6 mg TID PRN PO gout pain Last administered on 17:41; Admin Dose 0.6 MG; Start 06/25/16 at 21:00 Lorazepam (Ativan) 1 mg Q6H PRN IV ANXIETY Last administered on 07/01/16 05:27 ; Admin Dose 1 MG; Start 06/25/16 at 18:30 Morphine Sulfate 2 mg 2 mg Q6H PRN IV PAIN LEVEL 7-10 Last administered on 07/01 01:19; Admin Dose 2 MG; Start 06/25/16 at 18:30 Meropenem (Merrem 500 Mg/ 100 ml (Pmx)) 100 ml @ 200 mls/hr Q12 IVPB Last administered on 07/01/16 21:16; Admin Dose 200 MLS/HR; Start 06/26/16 at 17:00 Prednisone 40 mg 40 mg DAILY GTB Last administered on 07/01/16 08:18; Admin Dose 40 MG; Start 06/27/16 at 14:30 Potassium Chloride/Dextrose (D5W + KCl 20 Meq) 1,000 ml @ 50 mls/hr Q20H IV Last administered on 07/01/16 05:17; Admin Dose 50 MLS/HR; Start 06/27/16 at 15 :30 Metoprolol Tartrate (Lopressor) 5 mg Q4H PRN IV HR>110 Last administered on 15:37; Admin Dose 5 MG; Start 06/28/16 at 16:00 Amiodarone HCl (Cordarone) 200 mg BID NGT Last administered on 07/01/16 21:17 ; Admin Dose 200 MG; Start 06/28/16 at 21:00 Pantoprazole (Protonix Iv) 40 mg BID@06,18 IV Last administered on 07/01/16 17 :19; Admin Dose 40 MG; Start 07/01/16 at 18:00 FAYE RUSHING MD Jul 01, 2016 23:01
[2016-07-02] VITALS (25 sets, daily range): BP systolic 81–119; BP diastolic 35–67; PULSE 54–83; RESP 11–20
[2016-07-02] MEDS: ALBUTEROL/IPRATROPIUM (NEB) 3 ML AMP HHN SCH ×2 (01:28→04:35)
[2016-07-02] MEDS: morphine 2 MG INJ IV PRN ×4 (01:31→22:59)
[2016-07-02] MEDS: ACETAMINOPHEN 650MG/20.3ML CUP NGT PRN (03:18)
[2016-07-02] MEDS: D5W + KCL 20 MEQ 1,000 ML IV SCH ×3 (03:44→20:32)
[2016-07-02] MEDS: LEVOTHYROXINE 50 MCG TAB PO SCH (06:13)
[2016-07-02] MEDS: PANTOPRAZOLE 40 MG INJ IV SCH ×2 (06:14→18:15)
[2016-07-02 06:31] LABS: ADD SCAN DIFF NO
[2016-07-02 07:03] LABS: ABNORMAL IP MESSAGE 1; EOSINOPHILS # 0.1 10^3/ul (0.0-0.5); EOSINOPHILS % 1.3 % (0.0-7.0); HEMATOCRIT 21.5 % (42.0-52.0); LYMPHOCYTES # 0.8 10^3/ul (0.8-2.9); MEAN CORPUSCULAR HEMOGLOBIN 27.5 pg (29.0-33.0); MEAN CORPUSCULAR HGB CONC 29.8 g/dl (32.0-37.0); MEAN CORPUSCULAR VOLUME 92.3 fl (82.0-101.0); MONOCYTE # 0.5 10^3/ul (0.3-0.9); MONOCYTES % 6.7 % (0.0-11.0); NEUTROPHIL # 5.2 10^3/ul (1.6-7.5); NEUTROPHILS % 77.9 % (39.0-77.0); NUCLEATED RED BLOOD CELLS% 0.4 /100WBC (0.0-0.0); PLATELET COUNT 148 10^3/UL (140-415); RED BLOOD COUNT 2.33 10^6/ul (4.70-6.10); RED CELL DISTRIBUTION WIDTH 19.7 % (11.5-14.5); WHITE BLOOD COUNT 6.7 10^3/ul (4.8-10.8)
[2016-07-02 07:14] LABS: HEMOGLOBIN 6.4 g/dl (14.0-18.0)
[2016-07-02 07:41] LABS: POTASSIUM 4.4 mmol/L (3.5-5.1)
[2016-07-02 07:43] LABS: CREATININE 1.26 mg/dl (0.61-1.24)
[2016-07-02 07:44] LABS: CALCIUM 7.8 mg/dl (8.4-10.2)
[2016-07-02 07:45] LABS: MAGNESIUM 2.4 mg/dl (1.7-2.5)
--- NOTE | 2016-07-02 08:47 | CONS ---
Date/Time of Note Date/Time of Note DATE: 07/02/16 TIME: 08:44 Assessment/Plan Assessment/Plan Additional Assessment/Plan Hematochezia Blood in gastrostomy tube Esophageal variceal bleeding/post EVL Anemia secondary to above * S/p repeat EGD 06/30: Post EVL ulcers. Treat with PPI and octreotide drips 24 hours. DC both if no bleeding after 24 hours. Okay to start tube feed. * Monitor hemoglobin every 8 hours, transfuse 2 units for hemoglobin less than 7.5 Alcoholic cirrhosis * Post variceal bleeding/post EVL * Portal encephalopathy * Ascites/Neg U/S * Coagulopathy * director water and waste services consult in process. Family wants liver transplant and transfer to tertiary center. Unsafe swallowing/failed swallow eval/high risk for aspiration * Post uneventful PEG/Tolerating feedings * EGD with PEG placement 06/28/16: Esophageal ulcers with some old clots in the area, but no active bleeding. Nasogastric tube trauma present. Uneventful percutaneous endoscopic gastrostomy tube placement with placement of Syrian 20 gastrostomy tube. Further recommendations depend on clinical course Patient seen in collaboration with Dr. Arce Consultation Date/Type/Reason Admit Date/Time Jun 09, 2016 at 04:01 Initial Consult Date 06/09/16 Type of Consultation: GI Referring Provider: MAURY BENITEZ MD 24 HR Interval Summary Free Text/Dictation Hemoglobin down to 6.4 2 units PRBC planned for transfusion Bleeding scan plan today Exam/Review of Systems Vital Signs Vitals Vital Signs Date Time Temp Pulse Resp B/P Pulse Ox O2 Delivery O2 Flow Rate FiO2 07/02/16 08:00 98.4 71 14 110/52 100 Room Air 07/02/16 04:35 2.0 06/29/16 16:32 21 Intake and Output 07/01/16 07/01/16 07/02/16 15:00 23:00 07:00 Intake Total 1370 ml 1400 ml 1060 ml Output Total 240 ml 330 ml 1260 ml Balance 1130 ml 1070 ml -200 ml Exam Constitutional: alert, confused well developed Psych: nl mood/affect Head: normocephalic Eyes: EOMI, nl conjunctiva, nl lids ENMT: nl external ears & nose, nl lips & teeth, nl nasal mucosa & septum Respiratory: clear to auscultation, normal air movement Cardiovascular: regular rate and rhythm Gastrointestinal: soft, non-tender Musculoskeletal: nl extremities to inspection Neurological: NEON MOLDER II-XII intact Results Result Diagram: 07/02/16 0545 07/02/16 0545 Results 24 hrs Laboratory Tests Test 07/01/16 13:26 07/01/16 17:18 07/02/16 05:45 Hemoglobin 7.5 L 7.1 L 6.4 *L Hematocrit 24.8 L 22.8 L 21.5 L Prothrombin Time 18.0 H Prothrombin Time Ratio 1.4 INR International Normalized Ratio 1.48 Activated Partial Thromboplast Time 30.6 White Blood Count 6.7 Red Blood Count 2.33 L Mean Corpuscular Volume 92.3 Mean Corpuscular Hemoglobin 27.5 L Mean Corpuscular Hemoglobin Concent 29.8 L Red Cell Distribution Width 19.7 H Platelet Count 148 Mean Platelet Volume 11.0 H Neutrophils % 77.9 H Lymphocytes % 12.0 L Monocytes % 6.7 Eosinophils % 1.3 Basophils % 0.0 Nucleated Red Blood Cells % 0.4 H Neutrophils # 5.2 Lymphocytes # 0.8 Monocytes # 0.5 Eosinophils # 0.1 Basophils # 0.0 Nucleated Red Blood Cells # 0.0 Sodium Level 150 H Potassium Level 4.4 Chloride Level 115 H Carbon Dioxide Level 23 Anion Gap 16 Blood Urea Nitrogen 49 H Creatinine 1.26 H Glucose Level 110 Calcium Level 7.8 L Magnesium Level 2.4 Medications Medications Current Medications Ondansetron HCl (Zofran Inj) 4 mg Q6H PRN IV NAUSEA AND/OR VOMITING; Start 06/09 at 04:30 Dutasteride (Avodart) 0.5 mg AM PO Last administered on 07/01/16 08:18; Admin Dose 0.5 MG; Start 06/09/16 at 09:00 Finasteride (Proscar) 5 mg AM PO Last administered on 07/01/16 08:19; Admin Dose 5 MG; Start 06/09/16 at 09:00 Levothyroxine Sodium (Synthroid) 50 mcg DAILY@06 PO Last administered on 06:13; Admin Dose 50 MCG; Start 06/09/16 at 06:00 IV Flush (NS 10 ml) 10 ml PRN PRN IV IV PROTOCOL; Start 06/09/16 at 17:00 Miscellaneous Information 1 ea NOTE XX ; Start 06/11/16 at 08:30 Rifaximin (Xifaxan) 550 mg BID PO Last administered on 07/01/16 21:16; Admin Dose 550 MG; Start 06/11/16 at 14:30 Eye Lubricant (Artificial Tears Oph) 2 drop QID BOTH EYES Last administered on 07/01/16 21:16; Admin Dose 2 DROP; Start 06/12/16 at 13:00 Hydralazine HCl (Apresoline) 10 mg Q2H PRN IV SBP>170; Start 06/12/16 at 17:00 Metoprolol Tartrate (Lopressor) 25 mg BID PO Last administered on 06/30/16 21: 16; Admin Dose 25 MG; Start 06/14/16 at 21:00 Acetaminophen (Tylenol Liquid) 650 mg Q4H PRN NGT PAIN AND OR ELEVATED TEMP Last administered on 07/02/16 03:18; Admin Dose 650 MG; Start 06/17/16 at 12:30 Lactulose (Enulose) 30 gm QID PO Last administered on 07/01/16 17:19; Admin Dose 30 GM; Start 06/24/16 at 21:30 Febuxostat (Uloric) 40 mg DAILY PO Last administered on 07/01/16 08:18; Admin Dose 40 MG; Start 06/25/16 at 15:00 Colchicine (Colchicine) 0.6 mg TID PRN PO gout pain Last administered on 17:41; Admin Dose 0.6 MG; Start 06/25/16 at 21:00 Lorazepam (Ativan) 1 mg Q6H PRN IV ANXIETY Last administered on 07/01/16 05:27 ; Admin Dose 1 MG; Start 06/25/16 at 18:30 Morphine Sulfate 2 mg 2 mg Q6H PRN IV PAIN LEVEL 7-10 Last administered on 07/02 01:31; Admin Dose 2 MG; Start 06/25/16 at 18:30 Meropenem (Merrem 500 Mg/ 100 ml (Pmx)) 100 ml @ 200 mls/hr Q12 IVPB Last administered on 07/01/16 21:16; Admin Dose 200 MLS/HR; Start 06/26/16 at 17:00 Prednisone 40 mg 40 mg DAILY GTB Last administered on 07/01/16 08:18; Admin Dose 40 MG; Start 06/27/16 at 14:30 Potassium Chloride/Dextrose (D5W + KCl 20 Meq) 1,000 ml @ 50 mls/hr Q20H IV Last administered on 07/02/16 03:44; Admin Dose 50 MLS/HR; Start 06/27/16 at 15 :30 Metoprolol Tartrate (Lopressor) 5 mg Q4H PRN IV HR>110 Last administered on 15:37; Admin Dose 5 MG; Start 06/28/16 at 16:00 Amiodarone HCl (Cordarone) 200 mg BID NGT Last administered on 07/01/16 21:17 ; Admin Dose 200 MG; Start 06/28/16 at 21:00 Pantoprazole (Protonix Iv) 40 mg BID@06,18 IV Last administered on 07/02/16 06 :14; Admin Dose 40 MG; Start 07/01/16 at 18:00 KODY SHELDON Jul 02, 2016 08:47
[2016-07-02] MEDS: ARTIFICIAL TEARS 15 ML OPH BOTH EYES SCH ×4 (09:02→20:40)
[2016-07-02] MEDS: AMIODARONE 200 MG TAB NGT SCH ×2 (09:03→20:31)
[2016-07-02] MEDS: METOPROLOL 25 MG TAB PO SCH ×2 (09:03→20:30)
[2016-07-02] MEDS: FINASTERIDE 5 MG TAB PO SCH (09:04)
[2016-07-02] MEDS: RIFAXIMIN 550 MG TAB PO SCH ×2 (09:04→20:31)
[2016-07-02] MEDS: predniSONE 20 MG TAB GTB SCH (09:04)
[2016-07-02] MEDS: LACTULOSE 30ML CUP PO SCH ×4 (09:05→20:31)
[2016-07-02] MEDS: DUTASTERIDE 0.5 MG CAP PO SCH (09:05)
[2016-07-02] MEDS: FEBUXOSTAT 40 MG TABLET PO SCH (09:05)
[2016-07-02] MEDS: MEROPENEM 500 MG/100 ML (PMX) 100 ML IVPB SCH (10:10)
--- NOTE | 2016-07-02 10:40 | PN ---
Date/Time of Note Date/Time of Note DATE: 07/02/16 TIME: 10:26 Assessment/Plan VTE Prophylaxis VTE Prophylaxis Intervention: other Lines/Catheters IV Catheter Type (from Nrs): PICC Line Central line still needed: Yes Urinary Cath still in place: Yes Reason Cath still needed: other (indicate) Assessment/Plan Chief Complaint/Hosp Course Assessment/Plan 1. Esophageal variceal bleeding/post EVL, follow up with GI, continue PPI, off octreotide, 3. Paroxysmal atrial fibrillation/atrial flutter, now back in sinus rhythm and remains thus - now in sinus - better rate controlled now. 4. REC NSVT - add BB as toleated - BEA stable now - no new episodes now - no ectopy noted today. 5. Resolving sepsis, on multiple antibiotics, follow up with ID 6. Encephalopathy-likely secondary to history of cirrhosis and alcohol abuse, improving 7. Anemia, , status post transfusions- H/H stable. Continue to monitor 8. Hypernatremia. follow up with electrolytes, start free water via G-tube 9. Coagulopathy, likely secondary to his history of cirrhosis and alcohol abuse 10. PEG, G-tube feeding Keep in ICU PT OT eval and treat Problems: Subjective 24 Hr Interval Summary Free Text/Dictation Patient is awake and alert Has been having positive hematochezia since yesterday afternoon His hemoglobin has been decreased from 7.4-6.9 and he has been transfused 2 units of packed red blood cell Tolerating PEG tube feeding Exam/Review of Systems Vital Signs Vitals Vital Signs Date Time Temp Pulse Resp B/P Pulse Ox O2 Delivery O2 Flow Rate FiO2 07/02/16 09:00 69 17 110/64 99 Room Air 07/02/16 08:00 98.4 07/02/16 04:35 2.0 06/29/16 16:32 21 Intake and Output 07/01/16 07/01/16 07/02/16 15:00 23:00 07:00 Intake Total 1370 ml 1400 ml 1060 ml Output Total 240 ml 330 ml 1260 ml Balance 1130 ml 1070 ml -200 ml Exam General: The patient is moderately overweight, Not in acute distress. HEENT: Atraumatic, normocephalic. The pupils are equal and round . Neck: Supple with full range of motion. Chest: Normal expansion of the thorax during inspiration Lungs: Clear to auscultation bilaterally Heart: Normal S1-S2, Regular rhythm and rate. Abdomen: Soft , nontender, abdominal distended , bowel sounds are distant secondary to body habitus and distention although present. Extremities: Normal to inspection, trace edema no cyanosis Neurologic: The patient is awake, alert Results Result Diagram: 07/02/16 0545 07/02/16 0545 Results 24 hrs Laboratory Tests Test 07/01/16 13:26 07/01/16 17:18 07/02/16 05:45 Hemoglobin 7.5 L 7.1 L 6.4 *L Hematocrit 24.8 L 22.8 L 21.5 L Prothrombin Time 18.0 H Prothrombin Time Ratio 1.4 INR International Normalized Ratio 1.48 Activated Partial Thromboplast Time 30.6 White Blood Count 6.7 Red Blood Count 2.33 L Mean Corpuscular Volume 92.3 Mean Corpuscular Hemoglobin 27.5 L Mean Corpuscular Hemoglobin Concent 29.8 L Red Cell Distribution Width 19.7 H Platelet Count 148 Mean Platelet Volume 11.0 H Neutrophils % 77.9 H Lymphocytes % 12.0 L Monocytes % 6.7 Eosinophils % 1.3 Basophils % 0.0 Nucleated Red Blood Cells % 0.4 H Neutrophils # 5.2 Lymphocytes # 0.8 Monocytes # 0.5 Eosinophils # 0.1 Basophils # 0.0 Nucleated Red Blood Cells # 0.0 Sodium Level 150 H Potassium Level 4.4 Chloride Level 115 H Carbon Dioxide Level 23 Anion Gap 16 Blood Urea Nitrogen 49 H Creatinine 1.26 H Glucose Level 110 Calcium Level 7.8 L Magnesium Level 2.4 Medications Medications Current Medications Ondansetron HCl (Zofran Inj) 4 mg Q6H PRN IV NAUSEA AND/OR VOMITING; Start 06/09 at 04:30 Dutasteride (Avodart) 0.5 mg AM PO Last administered on 07/02/16 09:05; Admin Dose 0.5 MG; Start 06/09/16 at 09:00 Finasteride (Proscar) 5 mg AM PO Last administered on 07/02/16 09:04; Admin Dose 5 MG; Start 06/09/16 at 09:00 Levothyroxine Sodium (Synthroid) 50 mcg DAILY@06 PO Last administered on 06:13; Admin Dose 50 MCG; Start 06/09/16 at 06:00 IV Flush (NS 10 ml) 10 ml PRN PRN IV IV PROTOCOL; Start 06/09/16 at 17:00 Miscellaneous Information 1 ea NOTE XX ; Start 06/11/16 at 08:30 Rifaximin (Xifaxan) 550 mg BID PO Last administered on 07/02/16 09:04; Admin Dose 550 MG; Start 06/11/16 at 14:30 Eye Lubricant (Artificial Tears Oph) 2 drop QID BOTH EYES Last administered on 07/02/16 09:02; Admin Dose 2 DROP; Start 06/12/16 at 13:00 Hydralazine HCl (Apresoline) 10 mg Q2H PRN IV SBP>170; Start 06/12/16 at 17:00 Metoprolol Tartrate (Lopressor) 25 mg BID PO Last administered on 07/02/16 09: 03; Admin Dose 25 MG; Start 06/14/16 at 21:00 Acetaminophen (Tylenol Liquid) 650 mg Q4H PRN NGT PAIN AND OR ELEVATED TEMP Last administered on 07/02/16 03:18; Admin Dose 650 MG; Start 06/17/16 at 12:30 Lactulose (Enulose) 30 gm QID PO Last administered on 07/02/16 09:05; Admin Dose 30 GM; Start 06/24/16 at 21:30 Febuxostat (Uloric) 40 mg DAILY PO Last administered on 07/02/16 09:05; Admin Dose 40 MG; Start 06/25/16 at 15:00 Colchicine (Colchicine) 0.6 mg TID PRN PO gout pain Last administered on 17:41; Admin Dose 0.6 MG; Start 06/25/16 at 21:00 Lorazepam (Ativan) 1 mg Q6H PRN IV ANXIETY Last administered on 07/01/16 05:27 ; Admin Dose 1 MG; Start 06/25/16 at 18:30 Morphine Sulfate 2 mg 2 mg Q6H PRN IV PAIN LEVEL 7-10 Last administered on 07/02 10:10; Admin Dose 2 MG; Start 06/25/16 at 18:30 Meropenem (Merrem 500 Mg/ 100 ml (Pmx)) 100 ml @ 200 mls/hr Q12 IVPB Last administered on 07/02/16 10:10; Admin Dose 200 MLS/HR; Start 06/26/16 at 17:00 Prednisone 40 mg 40 mg DAILY GTB Last administered on 07/02/16 09:04; Admin Dose 40 MG; Start 06/27/16 at 14:30 Potassium Chloride/Dextrose (D5W + KCl 20 Meq) 1,000 ml @ 50 mls/hr Q20H IV Last administered on 07/02/16 03:44; Admin Dose 50 MLS/HR; Start 06/27/16 at 15 :30 Metoprolol Tartrate (Lopressor) 5 mg Q4H PRN IV HR>110 Last administered on 15:37; Admin Dose 5 MG; Start 06/28/16 at 16:00 Amiodarone HCl (Cordarone) 200 mg BID NGT Last administered on 07/02/16 09:03 ; Admin Dose 200 MG; Start 06/28/16 at 21:00 Pantoprazole (Protonix Iv) 40 mg BID@06,18 IV Last administered on 07/02/16 06 :14; Admin Dose 40 MG; Start 07/01/16 at 18:00 NHI AHMADI MD Jul 02, 2016 10:36
--- NOTE | 2016-07-02 10:45 | CONS ---
Date/Time of Note Date/Time of Note DATE: 07/02/16 TIME: 10:41 Assessment/Plan Assessment/Plan Chief Complaint/Hosp Course IMPRESSION: 1. Paroxysmal atrial fibrillation/atrial flutter-now SR on PO amio 2. Abnormal electrocardiogram. Assess for acute coronary syndrome. 3. Hypotension, now improved.-tolerating low dose BB 4. Gastrointestinal bleed.-s/p EGD with esophageal ulcers/varices s/p banding with ongoing GIB at this time 5. Cirrhosiss/p banding of varices 6. Encephalopathy-ongoing 7. Anemia-worsening 8. Hypernatremia-improved 9. Coagulopathy 10.Fever 11.PNA 12.ARF Recc: -Tele -Continue amiodarone PO as patient able to take -Continue BB as tolerated only -No asa/systemic anti-coag secondary to anemia/GIB -Follow MS closely -Follow Hgb closely -F/U cx data and continue abx's -Holding lasix given development of ARF -Continue protonix/lactulose -Transfuse PRBC's and f/u Hgb closely Problems: Consultation Date/Type/Reason Admit Date/Time Jun 09, 2016 at 04:01 Initial Consult Date 06/09/16 Type of Consultation: Cardiology Reason for Consultation PAFL/AF Referring Provider: MAURY BENITEZ MD Exam/Review of Systems Vital Signs Vitals Vital Signs Date Time Temp Pulse Resp B/P Pulse Ox O2 Delivery O2 Flow Rate FiO2 07/02/16 09:00 69 17 110/64 99 Room Air 07/02/16 08:00 98.4 07/02/16 04:35 2.0 06/29/16 16:32 21 Intake and Output 07/01/16 07/01/16 07/02/16 15:00 23:00 07:00 Intake Total 1370 ml 1400 ml 1060 ml Output Total 240 ml 330 ml 1260 ml Balance 1130 ml 1070 ml -200 ml Exam Review of Systems: CONSTITUTIONAL: No fevers, chills. PULMONARY: No sob CARDIOVASCULAR: No chest pain/palpitations GASTROINTESTINAL: No nausea/vomiting. GENITOURINARY: No hematuria/dysuria. MUSCULOSKELETAL: No myagias/arthalgias. PSYCHIATRIC: The patient denies depression. NEUROLOGIC: consfused/lethargic Constitutional: alert Psych: confusion Head: normocephalic ENMT: mucosa pink and moist Neck: jvd (8 cm water), supple Respiratory: diminished breath sounds (at bases/B) Cardiovascular: regular rate and rhythm Gastrointestinal: non-tender, soft Musculoskeletal: muscle weakness (generalized) Extremities: edema (Trace/B) Neurological: confused, lethargic Results Result Diagram: 07/02/16 0545 07/02/16 0545 Results 24 hrs Laboratory Tests Test 07/01/16 13:26 07/01/16 17:18 07/02/16 05:45 Hemoglobin 7.5 L 7.1 L 6.4 *L Hematocrit 24.8 L 22.8 L 21.5 L Prothrombin Time 18.0 H Prothrombin Time Ratio 1.4 INR International Normalized Ratio 1.48 Activated Partial Thromboplast Time 30.6 White Blood Count 6.7 Red Blood Count 2.33 L Mean Corpuscular Volume 92.3 Mean Corpuscular Hemoglobin 27.5 L Mean Corpuscular Hemoglobin Concent 29.8 L Red Cell Distribution Width 19.7 H Platelet Count 148 Mean Platelet Volume 11.0 H Neutrophils % 77.9 H Lymphocytes % 12.0 L Monocytes % 6.7 Eosinophils % 1.3 Basophils % 0.0 Nucleated Red Blood Cells % 0.4 H Neutrophils # 5.2 Lymphocytes # 0.8 Monocytes # 0.5 Eosinophils # 0.1 Basophils # 0.0 Nucleated Red Blood Cells # 0.0 Sodium Level 150 H Potassium Level 4.4 Chloride Level 115 H Carbon Dioxide Level 23 Anion Gap 16 Blood Urea Nitrogen 49 H Creatinine 1.26 H Glucose Level 110 Calcium Level 7.8 L Magnesium Level 2.4 Medications Medications Current Medications Ondansetron HCl (Zofran Inj) 4 mg Q6H PRN IV NAUSEA AND/OR VOMITING; Start 06/09 at 04:30 Dutasteride (Avodart) 0.5 mg AM PO Last administered on 07/02/16 09:05; Admin Dose 0.5 MG; Start 06/09/16 at 09:00 Finasteride (Proscar) 5 mg AM PO Last administered on 07/02/16 09:04; Admin Dose 5 MG; Start 06/09/16 at 09:00 Levothyroxine Sodium (Synthroid) 50 mcg DAILY@06 PO Last administered on 06:13; Admin Dose 50 MCG; Start 06/09/16 at 06:00 IV Flush (NS 10 ml) 10 ml PRN PRN IV IV PROTOCOL; Start 06/09/16 at 17:00 Miscellaneous Information 1 ea NOTE XX ; Start 06/11/16 at 08:30 Rifaximin (Xifaxan) 550 mg BID PO Last administered on 07/02/16 09:04; Admin Dose 550 MG; Start 06/11/16 at 14:30 Eye Lubricant (Artificial Tears Oph) 2 drop QID BOTH EYES Last administered on 07/02/16 09:02; Admin Dose 2 DROP; Start 06/12/16 at 13:00 Hydralazine HCl (Apresoline) 10 mg Q2H PRN IV SBP>170; Start 06/12/16 at 17:00 Metoprolol Tartrate (Lopressor) 25 mg BID PO Last administered on 07/02/16 09: 03; Admin Dose 25 MG; Start 06/14/16 at 21:00 Acetaminophen (Tylenol Liquid) 650 mg Q4H PRN NGT PAIN AND OR ELEVATED TEMP Last administered on 07/02/16 03:18; Admin Dose 650 MG; Start 06/17/16 at 12:30 Lactulose (Enulose) 30 gm QID PO Last administered on 07/02/16 09:05; Admin Dose 30 GM; Start 06/24/16 at 21:30 Febuxostat (Uloric) 40 mg DAILY PO Last administered on 07/02/16 09:05; Admin Dose 40 MG; Start 06/25/16 at 15:00 Colchicine (Colchicine) 0.6 mg TID PRN PO gout pain Last administered on 17:41; Admin Dose 0.6 MG; Start 06/25/16 at 21:00 Lorazepam (Ativan) 1 mg Q6H PRN IV ANXIETY Last administered on 07/01/16 05:27 ; Admin Dose 1 MG; Start 06/25/16 at 18:30 Morphine Sulfate 2 mg 2 mg Q6H PRN IV PAIN LEVEL 7-10 Last administered on 07/02 10:10; Admin Dose 2 MG; Start 06/25/16 at 18:30 Meropenem (Merrem 500 Mg/ 100 ml (Pmx)) 100 ml @ 200 mls/hr Q12 IVPB Last administered on 07/02/16 10:10; Admin Dose 200 MLS/HR; Start 06/26/16 at 17:00 Prednisone 40 mg 40 mg DAILY GTB Last administered on 07/02/16 09:04; Admin Dose 40 MG; Start 06/27/16 at 14:30 Potassium Chloride/Dextrose (D5W + KCl 20 Meq) 1,000 ml @ 50 mls/hr Q20H IV Last administered on 07/02/16 03:44; Admin Dose 50 MLS/HR; Start 06/27/16 at 15 :30 Metoprolol Tartrate (Lopressor) 5 mg Q4H PRN IV HR>110 Last administered on 15:37; Admin Dose 5 MG; Start 06/28/16 at 16:00 Amiodarone HCl (Cordarone) 200 mg BID NGT Last administered on 07/02/16 09:03 ; Admin Dose 200 MG; Start 06/28/16 at 21:00 Pantoprazole (Protonix Iv) 40 mg BID@06,18 IV Last administered on 07/02/16 06 :14; Admin Dose 40 MG; Start 07/01/16 at 18:00 ANGELES ODONNELL Jul 02, 2016 10:45
--- NOTE | 2016-07-02 11:16 | GILP ---
DATE OF PROCEDURE: 07/02/2016 PROCEDURE: Esophagogastroduodenoscopy. BRIEF HISTORY AND INDICATIONS: The patient is being evaluated for rebleeding. PREMEDICATION: Monitored anesthesia care by anesthesiologist. SURGEON: Jac Arce MD. TECHNIQUE: After informed consent, with the patient/relatives understanding the procedure, its indic ations, potential risks and complications, including but not limited to: allergic reaction, bleeding , perforation or infection, and after all pertinent questions were answered to the patients satisfac tion, the patient/relatives signed witnessed informed consent. Following this, premedication was administered slowly IV push under careful cardiovascular and respi ratory monitoring with pulse oximetry, automatic blood pressure and cardiac monitor technician. Once the sedative effect was achieved the patient was place in the left lateral decubitus, the panen doscope was introduced and advanced under visual control. Careful examination of the upper gastrointestinal tract, both on insertion as well as withdrawal of the instrument disclosed the following findings: ESOPHAGUS: The esophagus again shows multiple areas of ulceration, post-endoscopic variceal ligatio n. No active bleeding is identified at this time. There is, however, stigmata of recent bleeding. No lesions amenable to endoscopic therapeutic inter vention is noted. STOMACH: Upon entrance to the stomach, air was insufflated evidence air was insufflated, the gastri c xie distended normally. There gastrostomy tube was in place. No bleeding sites identified. PYLORUS: The pylorus appears patent and within normal limits, with no evidence of gastric outlet obs truction. DUODENUM: The duodenal mucosa was carefully examined in the duodenal bulb as well as the second port ion of the duodenum and appears unremarkable with no evidence of duodenitis, ulcer or neoplasm. The instrument was then withdrawn, the patient tolerated the procedure well and was transfer out of the endoscopy suite awake, and in good condition to continue recovery under observation IMPRESSION: 1. Multiple esophageal ulcers. Post-endoscopic variceal ligation with no active bleeding but posit efra stigmata of recent bleeding. 2. Gastrostomy tube in place and in good condition. 3. No other bleeding site or potential bleeding site identified. PLAN: We will continue PPI and octreotide drips, monitor H and H, transfuse to keep hemoglobin equa l or higher than 7.5, correct coagulopathy if necessary. Dictated By: JAC ARCE MS/NTS Conf#: [id number] DID#: [id number] CC: JAC ARCE;*[facility]*
--- NOTE | 2016-07-02 11:22 | PN ---
DATE: 07/02/2016 INFECTIOUS DISEASE PROGRESS NOTE SUBJECTIVE: No acute changes. Patient is awake, looks comfortable, no fevers. He has bloody stool s. WBC today 6.7, H and H 6.4 and 21.5, platelets 148, neutrophils 77.9. BUN 49, creatinine 1.26. MICROBIOLOGY: 1. Meropenem. 2. Zyvox. INDWELLINGS: PEG, [place], PICC line. PHYSICAL EXAMINATION: GENERAL: This is a chronically ill-appearing, elderly man who is awake, in no distress. HEENT: Head atraumatic, normocephalic. Sclerae anicteric. Buccal mucosa dry. NECK: Supple, trachea midline. CHEST: Rise symmetrical. Breath sounds diminished to bases. HEART: S1, S2. ABDOMEN: Distended, soft. Bowel tones hypoactive. EXTREMITIES: With trace edema. ASSESSMENT: 1. Systemic inflammatory response syndrome, status post fevers. 2. Hepatic encephalopathy. 3. Alcoholic liver cirrhosis. 4. Acute anemia with rectal bleeding, gastroenterology on case. 5. History of variceal banding. 6. Dysphagia, status post percutaneous endoscopic gastrostomy. 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 PLAN: The patient remains hemodynamically stable. Cultures had been negative. We did not get urin e culture, although I ordered it 3 times and it was canceled. We are going to discontinue antibiotic s and observe him. Follow GI recommendations. Possible colonoscopy. Dictated By: STACIE TAMEZ MESMERIST for RILEY TORRES/RICK Conf#: [id number] DID#: [id number]
--- NOTE | 2016-07-02 15:43 | RADRPT ---
PROCEDURE: CHEST 1VW CLINICAL INDICATION: PICC line TECHNIQUE: Single frontal view of the chest was obtained COMPARISON: 06/27/2016 FINDINGS: Interval removal of nasogastric tube. The left PICC is been retracted, now in the left axillary vei n. The cardiac size is mildly enlarged, stable. Aortic vascular calcifications are demonstrated. There is stable mild pulmonary vascular congestion. The lungs are clear. No consolidation, effusion, or pneumothorax. Mild degenerative changes of the visualized osseous structures are visualized. IMPRESSION: 1. The left PICC is been retracted, now in the left axillary vein. 2. Atherosclerosis. 3. Stable cardiomegaly with stable mild pulmonary vascular congestion. 4. Removal of nasogastric tube. RPTAT:PP .Wade Vang MD, Date Time Electronically viewed and signed by .Wade Vang MD, on 07/02/2016 15:43 .V/
[2016-07-02] MEDS ORDERED: LIDOCAINE 1% (MDV) 20 ML INJ SC ONE (17:30)
--- NOTE | 2016-07-02 19:03 | RADRPT ---
PROCEDURE: XR Chest. CLINICAL INDICATION: PICC line placement evaluation TECHNIQUE: Single view of the chest COMPARISON: Chest radiograph July 02, 2016 FINDINGS: There has been placement of a left-sided PICC with its tip in the right atrium. The cavoatrial junc tion placement is desired, would retract 2-3 cm. There is mild pulmonary vascular congestion with mild left basilar atelectasis. There is no focal c onsolidation. The cardiac silhouette is enlarged. There is no pleural effusion. There is no pneumothorax. There is no acute osseous abnormality. IMPRESSION: 1. The tip of the left-sided PICC is in the right atrium. If cavoatrial junction placement is leslee red, recommend retraction of 2- 3 cm. 2. Redemonstration of mild pulmonary vascular congestion with enlarged cardiac silhouette, and athe rosclerotic calcifications of the aorta. RPTAT: UU .Sam Mendez MD, MD Date Time Electronically viewed and signed by .Sam Mendez MD, on 07/02/2016 19:02 .K/
[2016-07-02 19:09] LABS: HEMATOCRIT 27.1 % (42.0-52.0); HEMOGLOBIN 8.8 g/dl (14.0-18.0)
[2016-07-02] MEDS: IPRATROPIUM (NEB) 0.5 MG/2.5 ML AMP NEB PRN (20:13)
[2016-07-02] MEDS: ALBUTEROL 0.083% (NEB) 2.5 MG/3 ML AMP NEB PRN (20:13)
[2016-07-02] MEDS ORDERED: SOD CHLORIDE 0.9% 100 ML ONE (21:00)
--- NOTE | 2016-07-02 21:53 | RADRPT ---
PROCEDURE: Gastrointestinal bleeding scan CLINICAL INDICATION: 71 year-old patient with blood loss. TECHNIQUE: Following the intravenous injection of 23.9 mCi of Tc-99m labeled red blood cells, mult iple dynamic anterior images of the abdomen were obtained up to 5 hours post injection. COMPARISON: No prior gastrointestinal bleeding scans. FINDINGS: No definite abnormal areas of increased activity are seen in the abdomen and pelvis up to [address] injection. Physiologic activity is seen in the liver and vessels. IMPRESSION: No definite abnormal areas of increased activity up to 5 hours post injection. RPTAT: QQ .Gricelda Louie MD, Date Time Electronically viewed and signed by .Gricelda Louie MD, on 07/02/2016 21:53 .L/
--- NOTE | 2016-07-02 23:41 | CONS ---
Date/Time of Note Date/Time of Note DATE: 07/02/16 TIME: 23:37 Assessment/Plan Assessment/Plan Chief Complaint/Hosp Course Anemia - COMPLEX, MULTIFACTORIAL WITH COMPONENT ACD, ACUTE BLOOD LOSS AND SEVERE IRON DEFICIENCY IN THE PAST * Esophageal variceal bleeding/post EVL * CONT TO MONITOR BLOOD COUNT CLOSELY * OBSERVE FOR BLEEDING AND HEMOLYSIS * PRBC NEEDED * DROP H/H POST GT * OBSERVE FOR BLEEDING * POST EGD * GI F-UP * continue PPI and octreotide drips, monitor H and H, transfuse to keep hemoglobin equal or higher than 7.5, correct coagulopathy if necessary. Septicemia with bandemia and fever. Acute gout. Alcoholic cirrhosis * Post variceal bleeding/post EVL * Portal encephalopathy * Ascites * Unsafe swallowing/failed swallow eval/high risk for aspiration * POST EGD plus PEG. * POST paracenteses prior to procedure. Coagulopathy VIT K POST FFP PRIOR TO PROCEDURE FMF FEVER IMPROVED ON ATB AND COLCHICINE Problems: Consultation Date/Type/Reason Admit Date/Time Jun 09, 2016 at 04:01 Initial Consult Date 06/09/16 Type of Consultation: hemeonc Referring Provider: MAURY BENITEZ MD 24 HR Interval Summary Free Text/Dictation h/h- dropped post EGD POST PRBC AWAKE ALERT Exam/Review of Systems Vital Signs Vitals Vital Signs Date Time Temp Pulse Resp B/P Pulse Ox O2 Delivery O2 Flow Rate FiO2 07/02/16 22:00 64 16 88/49 91 Room Air 07/02/16 20:13 21 07/02/16 20:00 98.0 07/02/16 04:35 2.0 Intake and Output 07/01/16 07/01/16 07/02/16 15:00 23:00 07:00 Intake Total 1370 ml 1400 ml 1110 ml Output Total 240 ml 330 ml 1260 ml Balance 1130 ml 1070 ml -150 ml Exam GENERAL: This is a chronically ill-appearing, elderly man who is awake, in no distress. HEENT: Head atraumatic, normocephalic. Sclerae anicteric. Buccal mucosa dry. NECK: Supple, trachea midline. CHEST: Rise symmetrical. Breath sounds diminished to bases. HEART: S1, S2. ABDOMEN: Distended, soft. Bowel tones hypoactive. EXTREMITIES: With trace edema. Results Result Diagram: 07/02/16 1858 07/02/16 0545 Results 24 hrs Laboratory Tests Test 07/02/16 05:45 07/02/16 18:58 White Blood Count 6.7 Red Blood Count 2.33 L Hemoglobin 6.4 *L 8.8 #L Hematocrit 21.5 L 27.1 #L Mean Corpuscular Volume 92.3 Mean Corpuscular Hemoglobin 27.5 L Mean Corpuscular Hemoglobin Concent 29.8 L Red Cell Distribution Width 19.7 H Platelet Count 148 Mean Platelet Volume 11.0 H Neutrophils % 77.9 H Lymphocytes % 12.0 L Monocytes % 6.7 Eosinophils % 1.3 Basophils % 0.0 Nucleated Red Blood Cells % 0.4 H Neutrophils # 5.2 Lymphocytes # 0.8 Monocytes # 0.5 Eosinophils # 0.1 Basophils # 0.0 Nucleated Red Blood Cells # 0.0 Sodium Level 150 H Potassium Level 4.4 Chloride Level 115 H Carbon Dioxide Level 23 Anion Gap 16 Blood Urea Nitrogen 49 H Creatinine 1.26 H Glucose Level 110 Calcium Level 7.8 L Magnesium Level 2.4 Medications Medications Current Medications Ondansetron HCl (Zofran Inj) 4 mg Q6H PRN IV NAUSEA AND/OR VOMITING; Start 06/09 at 04:30 Dutasteride (Avodart) 0.5 mg AM PO Last administered on 07/02/16 09:05; Admin Dose 0.5 MG; Start 06/09/16 at 09:00 Finasteride (Proscar) 5 mg AM PO Last administered on 07/02/16 09:04; Admin Dose 5 MG; Start 06/09/16 at 09:00 Levothyroxine Sodium (Synthroid) 50 mcg DAILY@06 PO Last administered on 06:13; Admin Dose 50 MCG; Start 06/09/16 at 06:00 IV Flush (NS 10 ml) 10 ml PRN PRN IV IV PROTOCOL; Start 06/09/16 at 17:00 Miscellaneous Information 1 ea NOTE XX ; Start 06/11/16 at 08:30 Rifaximin (Xifaxan) 550 mg BID PO Last administered on 07/02/16 20:31; Admin Dose 550 MG; Start 06/11/16 at 14:30 Eye Lubricant (Artificial Tears Oph) 2 drop QID BOTH EYES Last administered on 07/02/16 20:40; Admin Dose 2 DROP; Start 06/12/16 at 13:00 Hydralazine HCl (Apresoline) 10 mg Q2H PRN IV SBP>170; Start 06/12/16 at 17:00 Metoprolol Tartrate (Lopressor) 25 mg BID PO Last administered on 07/02/16 20: 30; Admin Dose 25 MG; Start 06/14/16 at 21:00 Acetaminophen (Tylenol Liquid) 650 mg Q4H PRN NGT PAIN AND OR ELEVATED TEMP Last administered on 07/02/16 03:18; Admin Dose 650 MG; Start 06/17/16 at 12:30 Lactulose (Enulose) 30 gm QID PO Last administered on 07/02/16 20:31; Admin Dose 30 GM; Start 06/24/16 at 21:30 Febuxostat (Uloric) 40 mg DAILY PO Last administered on 07/02/16 09:05; Admin Dose 40 MG; Start 06/25/16 at 15:00 Colchicine (Colchicine) 0.6 mg TID PRN PO gout pain Last administered on 17:41; Admin Dose 0.6 MG; Start 06/25/16 at 21:00 Lorazepam (Ativan) 1 mg Q6H PRN IV ANXIETY Last administered on 07/01/16 05:27 ; Admin Dose 1 MG; Start 06/25/16 at 18:30 Morphine Sulfate (morphine) 2 mg Q6H PRN IV PAIN LEVEL 7-10 Last administered on 07/02/16 22:59; Admin Dose 2 MG; Start 06/25/16 at 18:30 Prednisone (Prednisone) 40 mg DAILY GTB Last administered on 07/02/16 09:04; Admin Dose 40 MG; Start 06/27/16 at 14:30 Metoprolol Tartrate (Lopressor) 5 mg Q4H PRN IV HR>110 Last administered on 15:37; Admin Dose 5 MG; Start 06/28/16 at 16:00 Amiodarone HCl (Cordarone) 200 mg BID NGT Last administered on 07/02/16 20:31 ; Admin Dose 200 MG; Start 06/28/16 at 21:00 Pantoprazole 40 mg 40 mg BID@ IV Last administered on 07/02/16 18:15; Admin Dose 40 MG; Start 07/01/16 at 18:00 Potassium Chloride/Dextrose (D5W + KCl 20 Meq) 1,000 ml @ 50 mls/hr Q20H IV Last administered on 07/02/16 20:32; Admin Dose 50 MLS/HR; Start 07/02/16 at 20 :00 IV Flush (NS 10 ml) 10 ml PRN PRN IV IV PROTOCOL; Start 07/02/16 at 19:30 FAYE RUSHING MD Jul 02, 2016 23:41
[2016-07-03] VITALS (25 sets, daily range): BP systolic 86–136; BP diastolic 39–101; PULSE 48–76; RESP 11–21
[2016-07-03 00:08] LABS: HEMATOCRIT 24.8 % (42.0-52.0); HEMOGLOBIN 7.9 g/dl (14.0-18.0)
[2016-07-03] MEDS: ACETAMINOPHEN 650MG/20.3ML CUP NGT PRN (02:40)
[2016-07-03] MEDS: PANTOPRAZOLE 40 MG INJ IV SCH (05:38)
[2016-07-03] MEDS: LEVOTHYROXINE 50 MCG TAB PO SCH (05:38)
[2016-07-03] MEDS: morphine 2 MG INJ IV PRN ×3 (05:47→19:49)
[2016-07-03 06:32] LABS: ADD SCAN DIFF NO
[2016-07-03 06:38] LABS: BASOPHILS % 0.1 % (0.0-2.0); EOSINOPHILS # 0.1 10^3/ul (0.0-0.5); EOSINOPHILS % 1.7 % (0.0-7.0); HEMOGLOBIN 7.8 g/dl (14.0-18.0); LYMPHOCYTES # 1.1 10^3/ul (0.8-2.9); LYMPHOCYTES % 14.5 % (15.0-51.0); MEAN CORPUSCULAR HEMOGLOBIN 28.5 pg (29.0-33.0); MEAN CORPUSCULAR HGB CONC 31.2 g/dl (32.0-37.0); MEAN CORPUSCULAR VOLUME 91.2 fl (82.0-101.0); MEAN PLATELET VOLUME 10.3 fl (7.4-10.4); MONOCYTE # 0.6 10^3/ul (0.3-0.9); MONOCYTES % 7.7 % (0.0-11.0); NEUTROPHIL # 5.5 10^3/ul (1.6-7.5); NEUTROPHILS % 73.8 % (39.0-77.0); NUCLEATED RED BLOOD CELLS% 0.3 /100WBC (0.0-0.0); PLATELET COUNT 155 10^3/UL (140-415); RED BLOOD COUNT 2.74 10^6/ul (4.70-6.10); RED CELL DISTRIBUTION WIDTH 19.2 % (11.5-14.5); WHITE BLOOD COUNT 7.4 10^3/ul (4.8-10.8)
[2016-07-03 07:50] LABS: ALBUMIN 2.3 g/dl (3.3-4.9); ALBUMIN/GLOBULIN RATIO 0.74; BILIRUBIN,INDIRECT 0.6 mg/dl (0-1.1); BILIRUBIN,TOTAL 0.6 mg/dl (0.2-1.3); CALCIUM 7.5 mg/dl (8.4-10.2); CREATININE 0.94 mg/dl (0.61-1.24); POTASSIUM 4.6 mmol/L (3.5-5.1); TOTAL PROTEIN 5.4 g/dl (6.1-8.1)
[2016-07-03] MEDS: METOPROLOL 25 MG TAB PO SCH ×2 (09:00→21:43)
--- NOTE | 2016-07-03 09:40 | CONS ---
Date/Time of Note Date/Time of Note DATE: 07/03/16 TIME: 09:36 Assessment/Plan Assessment/Plan Additional Assessment/Plan Hematochezia Blood in gastrostomy tube Esophageal variceal bleeding/post EVL Anemia secondary to above * S/p repeat EGD 06/30: Post EVL ulcers. Treat with PPI and octreotide drips 24 hours. DC both if no bleeding after 24 hours. Okay to start tube feed. * S/p repeat EGD 07/02: 1. Multiple esophageal ulcers. Post-endoscopic variceal ligation with no active bleeding but positive stigmata of recent bleeding. 2. Gastrostomy tube in place and in good condition. 3. No other bleeding site or potential bleeding site identified. * Monitor hemoglobin every 8 hours, transfuse 2 units for hemoglobin less than 7.5 Alcoholic cirrhosis * Post variceal bleeding/post EVL * Portal encephalopathy * Ascites/Neg U/S * Coagulopathy * director of therapy services consult in process. Family wants liver transplant and transfer to tertiary center. Unsafe swallowing/failed swallow eval/high risk for aspiration * Post uneventful PEG/Tolerating feedings * EGD with PEG placement 06/28/16: Esophageal ulcers with some old clots in the area, but no active bleeding. Nasogastric tube trauma present. Uneventful percutaneous endoscopic gastrostomy tube placement with placement of M[place] 20 gastrostomy tube. Further recommendations depend on clinical course Patient seen in collaboration with Dr. Arce Consultation Date/Type/Reason Admit Date/Time Jun 09, 2016 at 04:01 Initial Consult Date 06/09/16 Type of Consultation: Gastroenterology Referring Provider: MAURY BENITEZ MD 24 HR Interval Summary Free Text/Dictation Bleeding scan negative Tube feeds with minimal residual Hemoglobin stable Status post repeat EGD Restart octreotide and pantoprazole drips Received call from ICU nurse, rectal tube with blood clots and drop in hemoglobin 2 units PRBC ordered with stat H&H Exam/Review of Systems Vital Signs Vitals Vital Signs Date Time Temp Pulse Resp B/P Pulse Ox O2 Delivery O2 Flow Rate FiO2 07/03/16 06:00 66 17 95/55 95 Room Air 07/03/16 04:00 98.5 07/02/16 20:13 21 07/02/16 04:35 2.0 Intake and Output 07/02/16 07/02/16 07/03/16 14:59 22:59 06:59 Intake Total 450 ml 950 ml 730 ml Output Total 1070 ml 810 ml Balance 450 ml -120 ml -80 ml Exam Constitutional: alert, confused well developed Psych: nl mood/affect Head: normocephalic Eyes: EOMI, nl conjunctiva, nl lids ENMT: nl external ears & nose, nl lips & teeth, nl nasal mucosa & septum Respiratory: clear to auscultation, normal air movement Cardiovascular: regular rate and rhythm Gastrointestinal: soft, non-tender Musculoskeletal: nl extremities to inspection Neurological: AGRICULTURAL ADVISER II-XII intact Results Result Diagram: 07/03/16 0530 07/03/16 0530 Results 24 hrs Laboratory Tests Test 07/02/16 18:58 07/02/16 23:50 07/03/16 05:30 Hemoglobin 8.8 #L 7.9 L 7.8 L Hematocrit 27.1 #L 24.8 L 25.0 L White Blood Count 7.4 Red Blood Count 2.74 L Mean Corpuscular Volume 91.2 Mean Corpuscular Hemoglobin 28.5 L Mean Corpuscular Hemoglobin Concent 31.2 L Red Cell Distribution Width 19.2 H Platelet Count 155 Mean Platelet Volume 10.3 Neutrophils % 73.8 Lymphocytes % 14.5 L Monocytes % 7.7 Eosinophils % 1.7 Basophils % 0.1 Nucleated Red Blood Cells % 0.3 H Neutrophils # 5.5 Lymphocytes # 1.1 Monocytes # 0.6 Eosinophils # 0.1 Basophils # 0.0 Nucleated Red Blood Cells # 0.0 Sodium Level 145 H Potassium Level 4.6 Chloride Level 115 H Carbon Dioxide Level 25 Anion Gap 10 # Blood Urea Nitrogen 42 H Creatinine 0.94 Glucose Level 113 Calcium Level 7.5 L Total Bilirubin 0.6 Direct Bilirubin 0.00 Indirect Bilirubin 0.6 Aspartate Amino Transf (AST/SGOT) 25 Alanine Aminotransferase (ALT/SGPT) 25 Alkaline Phosphatase 73 Total Protein 5.4 L Albumin 2.3 L Globulin 3.10 Albumin/Globulin Ratio 0.74 Medications Medications Current Medications Ondansetron HCl (Zofran Inj) 4 mg Q6H PRN IV NAUSEA AND/OR VOMITING; Start 06/09 at 04:30 Dutasteride (Avodart) 0.5 mg AM PO Last administered on 07/02/16 09:05; Admin Dose 0.5 MG; Start 06/09/16 at 09:00 Finasteride (Proscar) 5 mg AM PO Last administered on 07/02/16 09:04; Admin Dose 5 MG; Start 06/09/16 at 09:00 Levothyroxine Sodium (Synthroid) 50 mcg DAILY@06 PO Last administered on 05:38; Admin Dose 50 MCG; Start 06/09/16 at 06:00 IV Flush (NS 10 ml) 10 ml PRN PRN IV IV PROTOCOL; Start 06/09/16 at 17:00 Miscellaneous Information 1 ea NOTE XX ; Start 06/11/16 at 08:30 Rifaximin (Xifaxan) 550 mg BID PO Last administered on 07/02/16 20:31; Admin Dose 550 MG; Start 06/11/16 at 14:30 Eye Lubricant (Artificial Tears Oph) 2 drop QID BOTH EYES Last administered on 07/02/16 20:40; Admin Dose 2 DROP; Start 06/12/16 at 13:00 Hydralazine HCl (Apresoline) 10 mg Q2H PRN IV SBP>170; Start 06/12/16 at 17:00 Metoprolol Tartrate (Lopressor) 25 mg BID PO Last administered on 07/02/16 20: 30; Admin Dose 25 MG; Start 06/14/16 at 21:00 Acetaminophen (Tylenol Liquid) 650 mg Q4H PRN NGT PAIN AND OR ELEVATED TEMP Last administered on 07/03/16 02:40; Admin Dose 650 MG; Start 06/17/16 at 12:30 Lactulose (Enulose) 30 gm QID PO Last administered on 07/02/16 20:31; Admin Dose 30 GM; Start 06/24/16 at 21:30 Febuxostat (Uloric) 40 mg DAILY PO Last administered on 07/02/16 09:05; Admin Dose 40 MG; Start 06/25/16 at 15:00 Colchicine (Colchicine) 0.6 mg TID PRN PO gout pain Last administered on 17:41; Admin Dose 0.6 MG; Start 06/25/16 at 21:00 Lorazepam (Ativan) 1 mg Q6H PRN IV ANXIETY Last administered on 07/01/16 05:27 ; Admin Dose 1 MG; Start 06/25/16 at 18:30 Morphine Sulfate (morphine) 2 mg Q6H PRN IV PAIN LEVEL 7-10 Last administered on 07/03/16 05:47; Admin Dose 2 MG; Start 06/25/16 at 18:30 Prednisone (Prednisone) 40 mg DAILY GTB Last administered on 07/02/16 09:04; Admin Dose 40 MG; Start 06/27/16 at 14:30 Metoprolol Tartrate (Lopressor) 5 mg Q4H PRN IV HR>110 Last administered on 15:37; Admin Dose 5 MG; Start 06/28/16 at 16:00 Amiodarone HCl (Cordarone) 200 mg BID NGT Last administered on 07/02/16 20:31 ; Admin Dose 200 MG; Start 06/28/16 at 21:00 Pantoprazole 40 mg 40 mg BID@06,18 IV Last administered on 07/03/16 05:38; Admin Dose 40 MG; Start 07/01/16 at 18:00 Potassium Chloride/Dextrose (D5W + KCl 20 Meq) 1,000 ml @ 50 mls/hr Q20H IV Last administered on 07/02/16 20:32; Admin Dose 50 MLS/HR; Start 07/02/16 at 20 :00 IV Flush (NS 10 ml) 10 ml PRN PRN IV IV PROTOCOL; Start 07/02/16 at 19:30 KODY SHELDON Jul 03, 2016 09:39
--- NOTE | 2016-07-03 09:49 | CONS ---
Date/Time of Note Date/Time of Note DATE: 07/03/16 TIME: 09:48 Assessment/Plan Assessment/Plan Chief Complaint/Hosp Course ID PROGRESS NOTE TOTAL ABX DAY # => OFF ABX Day #1 s/p ABX 06/26 - 07/01 => total 6 days 24H INTERVAL SUMMARY * Clinically status quo -- no new issues per staffing clerk * Awake, resting comfortable without dyspnea on room air, PICC noted * Naomi: 07/01/16-1200 Rcvd: 07/01/16-1503 Source: [facility] COLE Sp Descrip: ------- Microbiology URINE CULTURE Final Organism 1 CARMELINA ALBICANS COLONY COUNT >100,000 CFU/ml PHYSICAL EXAMINATION: GENERAL: VSS, NAD HEENT: Unremarkable NECK: Trach midline CHEST: Equal chest rise bilaterally, without dyspnea on observation HEART: Pulse RRR ABDOMEN: Soft/peg EXTREMITIES: Warm SKIN: See hard chart skin assessment ID ASSESSMENT: 71 yo M w/PMHx w/ PMHx Familial Mediterranean Fever, significant ETOH admit with : 1. Systemic inflammatory response syndrome, status post fevers. 2. Hepatic encephalopathy. 3. Alcoholic liver cirrhosis. 4. Acute anemia with rectal bleeding, gastroenterology on case. 5. History of variceal banding. 6. Dysphagia, status post percutaneous endoscopic gastrostomy. 7. UTI -> C. Albicans >100,000 (-)MRSA Nares (+)VRE Stool Colonization INVASIVES: PIV ABX ALLERGY: None to ABX CURRENT ABX: => OFF ABX Day #1 s/p ABX 06/26 - 07/01 => total 6 days ID RECOMMENDATIONS: 1. Please DC FC per (+)Yeast => Yeast will stick to the catheter 2. Does he need FC ? DC and do PVR -> If >250cc then reinsert FC; otherwise if FC for incontinence please use condom cath 3. Will Rx Cancidas x4 days = Diflucan w/many Drug-Drug interactions . Problems: Consultation Date/Type/Reason Admit Date/Time Jun 09, 2016 at 04:01 Initial Consult Date 06/09/16 Type of Consultation: ID Referring Provider: MAURY BENITEZ MD Exam/Review of Systems Vital Signs Vitals Vital Signs Date Time Temp Pulse Resp B/P Pulse Ox O2 Delivery O2 Flow Rate FiO2 07/03/16 06:00 66 17 95/55 95 Room Air 07/03/16 04:00 98.5 07/02/16 20:13 21 07/02/16 04:35 2.0 Intake and Output 07/02/16 07/02/16 07/03/16 15:00 23:00 07:00 Intake Total 400 ml 1000 ml 680 ml Output Total 60 ml 1050 ml 770 ml Balance 340 ml -50 ml -90 ml Results Result Diagram: 07/03/16 0530 07/03/16 0530 Results 24 hrs Laboratory Tests Test 07/02/16 18:58 07/02/16 23:50 07/03/16 05:30 Hemoglobin 8.8 #L 7.9 L 7.8 L Hematocrit 27.1 #L 24.8 L 25.0 L White Blood Count 7.4 Red Blood Count 2.74 L Mean Corpuscular Volume 91.2 Mean Corpuscular Hemoglobin 28.5 L Mean Corpuscular Hemoglobin Concent 31.2 L Red Cell Distribution Width 19.2 H Platelet Count 155 Mean Platelet Volume 10.3 Neutrophils % 73.8 Lymphocytes % 14.5 L Monocytes % 7.7 Eosinophils % 1.7 Basophils % 0.1 Nucleated Red Blood Cells % 0.3 H Neutrophils # 5.5 Lymphocytes # 1.1 Monocytes # 0.6 Eosinophils # 0.1 Basophils # 0.0 Nucleated Red Blood Cells # 0.0 Sodium Level 145 H Potassium Level 4.6 Chloride Level 115 H Carbon Dioxide Level 25 Anion Gap 10 # Blood Urea Nitrogen 42 H Creatinine 0.94 Glucose Level 113 Calcium Level 7.5 L Total Bilirubin 0.6 Direct Bilirubin 0.00 Indirect Bilirubin 0.6 Aspartate Amino Transf (AST/SGOT) 25 Alanine Aminotransferase (ALT/SGPT) 25 Alkaline Phosphatase 73 Total Protein 5.4 L Albumin 2.3 L Globulin 3.10 Albumin/Globulin Ratio 0.74 Medications Medications Current Medications Ondansetron HCl (Zofran Inj) 4 mg Q6H PRN IV NAUSEA AND/OR VOMITING; Start 06/09 at 04:30 Dutasteride (Avodart) 0.5 mg AM PO Last administered on 07/02/16 09:05; Admin Dose 0.5 MG; Start 06/09/16 at 09:00 Finasteride (Proscar) 5 mg AM PO Last administered on 07/02/16 09:04; Admin Dose 5 MG; Start 06/09/16 at 09:00 Levothyroxine Sodium (Synthroid) 50 mcg DAILY@06 PO Last administered on 05:38; Admin Dose 50 MCG; Start 06/09/16 at 06:00 IV Flush (NS 10 ml) 10 ml PRN PRN IV IV PROTOCOL; Start 06/09/16 at 17:00 Miscellaneous Information 1 ea NOTE XX ; Start 06/11/16 at 08:30 Rifaximin (Xifaxan) 550 mg BID PO Last administered on 07/02/16 20:31; Admin Dose 550 MG; Start 06/11/16 at 14:30 Eye Lubricant (Artificial Tears Oph) 2 drop QID BOTH EYES Last administered on 07/02/16 20:40; Admin Dose 2 DROP; Start 06/12/16 at 13:00 Hydralazine HCl (Apresoline) 10 mg Q2H PRN IV SBP>170; Start 06/12/16 at 17:00 Metoprolol Tartrate (Lopressor) 25 mg BID PO Last administered on 07/02/16 20: 30; Admin Dose 25 MG; Start 06/14/16 at 21:00 Acetaminophen (Tylenol Liquid) 650 mg Q4H PRN NGT PAIN AND OR ELEVATED TEMP Last administered on 07/03/16 02:40; Admin Dose 650 MG; Start 06/17/16 at 12:30 Lactulose (Enulose) 30 gm QID PO Last administered on 07/02/16 20:31; Admin Dose 30 GM; Start 06/24/16 at 21:30 Febuxostat (Uloric) 40 mg DAILY PO Last administered on 07/02/16 09:05; Admin Dose 40 MG; Start 06/25/16 at 15:00 Colchicine (Colchicine) 0.6 mg TID PRN PO gout pain Last administered on 17:41; Admin Dose 0.6 MG; Start 06/25/16 at 21:00 Lorazepam (Ativan) 1 mg Q6H PRN IV ANXIETY Last administered on 07/01/16 05:27 ; Admin Dose 1 MG; Start 06/25/16 at 18:30 Morphine Sulfate (morphine) 2 mg Q6H PRN IV PAIN LEVEL 7-10 Last administered on 07/03/16 05:47; Admin Dose 2 MG; Start 06/25/16 at 18:30 Prednisone (Prednisone) 40 mg DAILY GTB Last administered on 07/02/16 09:04; Admin Dose 40 MG; Start 06/27/16 at 14:30 Metoprolol Tartrate (Lopressor) 5 mg Q4H PRN IV HR>110 Last administered on 15:37; Admin Dose 5 MG; Start 06/28/16 at 16:00 Amiodarone HCl (Cordarone) 200 mg BID NGT Last administered on 07/02/16 20:31 ; Admin Dose 200 MG; Start 06/28/16 at 21:00 Pantoprazole 40 mg 40 mg BID@06,18 IV Last administered on 07/03/16 05:38; Admin Dose 40 MG; Start 07/01/16 at 18:00 Potassium Chloride/Dextrose (D5W + KCl 20 Meq) 1,000 ml @ 50 mls/hr Q20H IV Last administered on 07/02/16 20:32; Admin Dose 50 MLS/HR; Start 07/02/16 at 20 :00 IV Flush (NS 10 ml) 10 ml PRN PRN IV IV PROTOCOL; Start 07/02/16 at 19:30 LUIS E WALLACE NP Jul 03, 2016 09:48
[2016-07-03] MEDS: LACTULOSE 30ML CUP PO SCH ×4 (09:51→21:00)
[2016-07-03] MEDS: FEBUXOSTAT 40 MG TABLET PO SCH (09:52)
[2016-07-03] MEDS: FINASTERIDE 5 MG TAB PO SCH (09:52)
[2016-07-03] MEDS: AMIODARONE 200 MG TAB NGT SCH ×2 (09:53→21:40)
[2016-07-03] MEDS: predniSONE 20 MG TAB GTB SCH (09:53)
[2016-07-03] MEDS: DUTASTERIDE 0.5 MG CAP PO SCH (09:53)
[2016-07-03] MEDS: ARTIFICIAL TEARS 15 ML OPH BOTH EYES SCH ×4 (09:53→21:42)
[2016-07-03] MEDS: RIFAXIMIN 550 MG TAB PO SCH ×2 (10:04→21:41)
--- NOTE | 2016-07-03 10:57 | PN ---
Date/Time of Note Date/Time of Note DATE: 07/03/16 TIME: 10:55 Assessment/Plan VTE Prophylaxis VTE Prophylaxis Intervention: SCD's Lines/Catheters IV Catheter Type (from Nrs): PICC Line Central line still needed: Yes Urinary Cath still in place: Yes Reason Cath still needed: other (indicate) Assessment/Plan Chief Complaint/Hosp Course Assessment/Plan 1. Esophageal variceal bleeding/post EVL, follow up with GI, continue PPI, off octreotide, 3. Paroxysmal atrial fibrillation/atrial flutter, now back in sinus rhythm and remains thus - now in sinus - better rate controlled now. 4. REC NSVT - add BB as toleated - BEA stable now - no new episodes now - no ectopy noted today. 5. Resolving sepsis, on multiple antibiotics, follow up with ID 6. Encephalopathy-likely secondary to history of cirrhosis and alcohol abuse, improving 7. Anemia, , status post transfusions- H/H stable. Continue to monitor, transfuse as per protocol 8. Hypernatremia. follow up with electrolytes, start free water via G-tube 9. Coagulopathy, likely secondary to his history of cirrhosis and alcohol abuse 10. PEG, G-tube feeding Transferred to [facility] if cleared by GI PT OT eval and treat Problems: Subjective 24 Hr Interval Summary Free Text/Dictation Patient is feeling better Decrease in diarrhea Rectal tube in place Tolerating PEG tube feeding Exam/Review of Systems Vital Signs Vitals Vital Signs Date Time Temp Pulse Resp B/P Pulse Ox O2 Delivery O2 Flow Rate FiO2 07/03/16 10:00 63 12 111/65 94 Room Air 07/03/16 08:00 97.5 07/02/16 20:13 21 07/02/16 04:35 2.0 Intake and Output 07/02/16 07/02/16 07/03/16 15:00 23:00 07:00 Intake Total 400 ml 1000 ml 730 ml Output Total 60 ml 1050 ml 805 ml Balance 340 ml -50 ml -75 ml Exam General: The patient is well-developed, Not in acute distress. HEENT: Atraumatic, normocephalic. The pupils are equal and round . Neck: Supple with full range of motion. Chest: Normal expansion of the thorax during inspiration Lungs: Clear to auscultation bilaterally Heart: Normal S1-S2, Regular rhythm and rate. Abdomen: Soft , nontender, moderately distended , bowel sounds are present. PEG tube in place Extremities: Normal to inspection, no edema no cyanosis Neurologic: Normal mental status,The patient is awake, alert and oriented . Results Result Diagram: 07/03/16 0530 07/03/16 0530 Results 24 hrs Laboratory Tests Test 07/02/16 18:58 07/02/16 23:50 07/03/16 05:30 Hemoglobin 8.8 #L 7.9 L 7.8 L Hematocrit 27.1 #L 24.8 L 25.0 L White Blood Count 7.4 Red Blood Count 2.74 L Mean Corpuscular Volume 91.2 Mean Corpuscular Hemoglobin 28.5 L Mean Corpuscular Hemoglobin Concent 31.2 L Red Cell Distribution Width 19.2 H Platelet Count 155 Mean Platelet Volume 10.3 Neutrophils % 73.8 Lymphocytes % 14.5 L Monocytes % 7.7 Eosinophils % 1.7 Basophils % 0.1 Nucleated Red Blood Cells % 0.3 H Neutrophils # 5.5 Lymphocytes # 1.1 Monocytes # 0.6 Eosinophils # 0.1 Basophils # 0.0 Nucleated Red Blood Cells # 0.0 Sodium Level 145 H Potassium Level 4.6 Chloride Level 115 H Carbon Dioxide Level 25 Anion Gap 10 # Blood Urea Nitrogen 42 H Creatinine 0.94 Glucose Level 113 Calcium Level 7.5 L Total Bilirubin 0.6 Direct Bilirubin 0.00 Indirect Bilirubin 0.6 Aspartate Amino Transf (AST/SGOT) 25 Alanine Aminotransferase (ALT/SGPT) 25 Alkaline Phosphatase 73 Total Protein 5.4 L Albumin 2.3 L Globulin 3.10 Albumin/Globulin Ratio 0.74 Medications Medications Current Medications Ondansetron HCl (Zofran Inj) 4 mg Q6H PRN IV NAUSEA AND/OR VOMITING; Start 06/09 at 04:30 Dutasteride (Avodart) 0.5 mg AM PO Last administered on 07/03/16 09:53; Admin Dose 0.5 MG; Start 06/09/16 at 09:00 Finasteride (Proscar) 5 mg AM PO Last administered on 07/03/16 09:52; Admin Dose 5 MG; Start 06/09/16 at 09:00 Levothyroxine Sodium (Synthroid) 50 mcg DAILY@06 PO Last administered on 05:38; Admin Dose 50 MCG; Start 06/09/16 at 06:00 IV Flush (NS 10 ml) 10 ml PRN PRN IV IV PROTOCOL; Start 06/09/16 at 17:00 Miscellaneous Information 1 ea NOTE XX ; Start 06/11/16 at 08:30 Rifaximin (Xifaxan) 550 mg BID PO Last administered on 07/03/16 10:04; Admin Dose 550 MG; Start 06/11/16 at 14:30 Eye Lubricant (Artificial Tears Oph) 2 drop QID BOTH EYES Last administered on 07/03/16 09:53; Admin Dose 2 DROP; Start 06/12/16 at 13:00 Hydralazine HCl (Apresoline) 10 mg Q2H PRN IV SBP>170; Start 06/12/16 at 17:00 Metoprolol Tartrate (Lopressor) 25 mg BID PO Last administered on 07/02/16 20: 30; Admin Dose 25 MG; Start 06/14/16 at 21:00 Acetaminophen (Tylenol Liquid) 650 mg Q4H PRN NGT PAIN AND OR ELEVATED TEMP Last administered on 07/03/16 02:40; Admin Dose 650 MG; Start 06/17/16 at 12:30 Lactulose (Enulose) 30 gm QID PO Last administered on 07/03/16 09:51; Admin Dose 30 GM; Start 06/24/16 at 21:30 Febuxostat (Uloric) 40 mg DAILY PO Last administered on 07/03/16 09:52; Admin Dose 40 MG; Start 06/25/16 at 15:00 Colchicine (Colchicine) 0.6 mg TID PRN PO gout pain Last administered on 17:41; Admin Dose 0.6 MG; Start 06/25/16 at 21:00 Lorazepam (Ativan) 1 mg Q6H PRN IV ANXIETY Last administered on 07/01/16 05:27 ; Admin Dose 1 MG; Start 06/25/16 at 18:30 Morphine Sulfate (morphine) 2 mg Q6H PRN IV PAIN LEVEL 7-10 Last administered on 07/03/16 05:47; Admin Dose 2 MG; Start 06/25/16 at 18:30 Prednisone (Prednisone) 40 mg DAILY GTB Last administered on 07/03/16 09:53; Admin Dose 40 MG; Start 06/27/16 at 14:30 Metoprolol Tartrate (Lopressor) 5 mg Q4H PRN IV HR>110 Last administered on 15:37; Admin Dose 5 MG; Start 06/28/16 at 16:00 Amiodarone HCl 200 mg 200 mg BID NGT Last administered on 07/03/16 09:53; Admin Dose 200 MG; Start 06/28/16 at 21:00 Potassium Chloride/Dextrose (D5W + KCl 20 Meq) 1,000 ml @ 50 mls/hr Q20H IV Last administered on 07/02/16 20:32; Admin Dose 50 MLS/HR; Start 07/02/16 at 20 :00 IV Flush 10 ml 10 ml PRN PRN IV IV PROTOCOL; Start 07/02/16 at 19:30 Octreotide Acetate 500 mcg/ Sodium Chloride 50 ml @ 2.5 mls/hr Q20H IV ; Start 07/03/16 at 11:30 Pantoprazole/ Sodium Chloride (Protonix Iv/NS) 100 ml @ 10 mls/hr Q10H IV ; Start 07/03/16 at 12:00 NHI AHMADI MD Jul 03, 2016 10:57
[2016-07-03] MEDS: OCTREOTIDE 500 MCG in SOD CHLORIDE 0.9% 49 ML IV SCH (11:35)
[2016-07-03] MEDS: PANTOPRAZOLE IV 80 MG in SOD CHLORIDE 0.9% 100 ML IV SCH ×2 (11:35→19:15)
[2016-07-03] MEDS ORDERED: SOD CHLORIDE 0.9% 250 ML IV* ONE (12:23)
[2016-07-03] MEDS ORDERED: CASPOFUNGIN 70 MG in SOD CHLORIDE 0.9% 250 ML IVPB ONE (13:00)
[2016-07-03] MEDS: COLCHICINE 0.6 MG TAB PO PRN (13:31)
[2016-07-03 13:50] LABS: HEMATOCRIT 24.9 % (42.0-52.0); HEMOGLOBIN 7.8 g/dl (14.0-18.0)
--- NOTE | 2016-07-03 13:53 | PN ---
DATE: 07/03/2016 On questioning, the patient has no significant chest pain or shortness of breath, although still has some abdominal pain. VITAL SIGNS: Blood pressure 111/65, blood pressure was 86/52 earlier today, but is better now. H eart rate is 63. HEAD: Normocephaly. NECK: JVP not traced. Carotid pulses with normal upstrokes. CHEST: Bilaterally symmetric, nontender. HEART: PMI localized in the fourth intercostal space. S1 and S2 are regular, and a II-II/ systol ic murmur is heard at the apex. No gallop or rub are appreciated. LUNGS: Clear lungs. Clear to percussion and auscultation. ABDOMEN: Soft ____ belly with mild tenderness and moderate obesity. EXTREMITIES: With good femoral and pedal pulses. No femoral bruits. No pedal edema. No clubbing. No cyanosis. Telemetry is revealing sinus rhythm. LABORATORIES: Today reveal a hemoglobin is 7.8 this morning and the platelet count is normal at 155 ,000. Chemistries reveal slightly elevated sodium of 145. BUN is down to 42 with a creatinine of 0 .94. Chest x-ray from yesterday showed stable cardiomegaly with stable mild pulmonary vascular congestion . IMPRESSION: 1. Paroxysmal atrial fibrillation in the past, now in sinus rhythm on amiodarone. 2. Normal EKG. 3. Hypotension earlier, but better now. 4. Gastrointestinal bleed. 5. Azotemia, which is improving. 6. Anemia. RECOMMENDATIONS: Same treatment cardiologically, including amiodarone. Dictated By: JEANETTE ARGUELLO MD, RA/RICK Conf#: [id number] DID#: [id number]
[2016-07-03] MEDS: D5W + KCL 20 MEQ 1,000 ML IV SCH (17:19)
[2016-07-03 19:21] LABS: HEMATOCRIT 23.5 % (42.0-52.0); HEMOGLOBIN 7.4 g/dl (14.0-18.0)
[2016-07-03] MEDS ORDERED: PHENAZOPYRIDINE 100 MG TAB PO ONE (20:30)
[2016-07-03] MEDS: TAMSULOSIN (SR) 0.4 MG CAP PO SCH (21:00)
--- NOTE | 2016-07-03 23:08 | CONS ---
Date/Time of Note Date/Time of Note DATE: 07/03/16 TIME: 23:06 Assessment/Plan Assessment/Plan Chief Complaint/Hosp Course Anemia - COMPLEX, MULTIFACTORIAL WITH COMPONENT ACD, ACUTE BLOOD LOSS AND SEVERE IRON DEFICIENCY IN THE PAST * Esophageal variceal bleeding/post EVL * CONT TO MONITOR BLOOD COUNT CLOSELY * OBSERVE FOR BLEEDING AND HEMOLYSIS * PRBC NEEDED, INCL TODAY * DROP H/H POST GT * OBSERVE FOR BLEEDING * POST EGD * GI F-UP * continue PPI and octreotide drips, monitor H and H, transfuse to keep hemoglobin equal or higher than 7.5, correct coagulopathy if necessary. Septicemia with bandemia and fever. Acute gout. Alcoholic cirrhosis * Post variceal bleeding/post EVL * Portal encephalopathy * Ascites * Unsafe swallowing/failed swallow eval/high risk for aspiration * POST EGD plus PEG. * POST paracenteses prior to procedure. Coagulopathy POST VIT K POST FFP FMF FEVER IMPROVED ON ATB AND COLCHICINE Problems: Consultation Date/Type/Reason Admit Date/Time Jun 09, 2016 at 04:01 Initial Consult Date 06/09/16 Type of Consultation: HEMEON Referring Provider: MAURY BENITEZ MD 24 HR Interval Summary Free Text/Dictation Patient is feeling better Decrease in diarrhea Rectal tube in place Tolerating PEG tube feeding H/H- DOWN PRBC- ORDERED Exam/Review of Systems Vital Signs Vitals Vital Signs Date Time Temp Pulse Resp B/P Pulse Ox O2 Delivery O2 Flow Rate FiO2 07/03/16 19:00 61 11 102/47 93 Room Air 07/03/16 16:00 97.5 07/03/16 15:33 21 07/03/16 15:00 2.0 Intake and Output 07/02/16 07/02/16 07/03/16 15:00 23:00 07:00 Intake Total 400 ml 1000 ml 730 ml Output Total 60 ml 1050 ml 805 ml Balance 340 ml -50 ml -75 ml Exam General: The patient is well-developed, Not in acute distress. HEENT: Atraumatic, normocephalic. The pupils are equal and round . Neck: Supple with full range of motion. Chest: Normal expansion of the thorax during inspiration Lungs: Clear to auscultation bilaterally Heart: Normal S1-S2, Regular rhythm and rate. Abdomen: Soft , nontender, moderately distended , bowel sounds are present. PEG tube in place Extremities: Normal to inspection, no edema no cyanosis Neurologic: Normal mental status,The patient is awake, alert and oriented . Results Result Diagram: 07/03/16 19107/03/16 0530 Results 24 hrs Laboratory Tests Test 07/02/16 23:50 07/03/16 05:30 07/03/16 13:41 07/03/16 19:15 Hemoglobin 7.9 L 7.8 L 7.8 L 7.4 L Hematocrit 24.8 L 25.0 L 24.9 L 23.5 L White Blood Count 7.4 Red Blood Count 2.74 L Mean Corpuscular Volume 91.2 Mean Corpuscular Hemoglobin 28.5 L Mean Corpuscular Hemoglobin Concent 31.2 L Red Cell Distribution Width 19.2 H Platelet Count 155 Mean Platelet Volume 10.3 Neutrophils % 73.8 Lymphocytes % 14.5 L Monocytes % 7.7 Eosinophils % 1.7 Basophils % 0.1 Nucleated Red Blood Cells % 0.3 H Neutrophils # 5.5 Lymphocytes # 1.1 Monocytes # 0.6 Eosinophils # 0.1 Basophils # 0.0 Nucleated Red Blood Cells # 0.0 Sodium Level 145 H Potassium Level 4.6 Chloride Level 115 H Carbon Dioxide Level 25 Anion Gap 10 # Blood Urea Nitrogen 42 H Creatinine 0.94 Glucose Level 113 Calcium Level 7.5 L Total Bilirubin 0.6 Direct Bilirubin 0.00 Indirect Bilirubin 0.6 Aspartate Amino Transf (AST/SGOT) 25 Alanine Aminotransferase (ALT/SGPT) 25 Alkaline Phosphatase 73 Total Protein 5.4 L Albumin 2.3 L Globulin 3.10 Albumin/Globulin Ratio 0.74 Medications Medications Current Medications Ondansetron HCl (Zofran Inj) 4 mg Q6H PRN IV NAUSEA AND/OR VOMITING; Start 06/09 at 04:30 Dutasteride (Avodart) 0.5 mg AM PO Last administered on 07/03/16 09:53; Admin Dose 0.5 MG; Start 06/09/16 at 09:00 Finasteride (Proscar) 5 mg AM PO Last administered on 07/03/16 09:52; Admin Dose 5 MG; Start 06/09/16 at 09:00 Levothyroxine Sodium (Synthroid) 50 mcg DAILY@06 PO Last administered on 05:38; Admin Dose 50 MCG; Start 06/09/16 at 06:00 IV Flush (NS 10 ml) 10 ml PRN PRN IV IV PROTOCOL; Start 06/09/16 at 17:00 Miscellaneous Information 1 ea NOTE XX ; Start 06/11/16 at 08:30 Rifaximin (Xifaxan) 550 mg BID PO Last administered on 07/03/16 21:41; Admin Dose 550 MG; Start 06/11/16 at 14:30 Eye Lubricant (Artificial Tears Oph) 2 drop QID BOTH EYES Last administered on 07/03/16 21:42; Admin Dose 2 DROP; Start 06/12/16 at 13:00 Hydralazine HCl (Apresoline) 10 mg Q2H PRN IV SBP>170; Start 06/12/16 at 17:00 Metoprolol Tartrate (Lopressor) 25 mg BID PO Last administered on 07/03/16 21: 43; Admin Dose 25 MG; Start 06/14/16 at 21:00 Acetaminophen (Tylenol Liquid) 650 mg Q4H PRN NGT PAIN AND OR ELEVATED TEMP Last administered on 07/03/16 02:40; Admin Dose 650 MG; Start 06/17/16 at 12:30 Lactulose (Enulose) 30 gm QID PO Last administered on 07/03/16 13:30; Admin Dose 30 GM; Start 06/24/16 at 21:30 Febuxostat (Uloric) 40 mg DAILY PO Last administered on 07/03/16 09:52; Admin Dose 40 MG; Start 06/25/16 at 15:00 Colchicine (Colchicine) 0.6 mg TID PRN PO gout pain Last administered on 13:31; Admin Dose 0.6 MG; Start 06/25/16 at 21:00 Lorazepam (Ativan) 1 mg Q6H PRN IV ANXIETY Last administered on 07/01/16 05:27 ; Admin Dose 1 MG; Start 06/25/16 at 18:30 Morphine Sulfate (morphine) 2 mg Q6H PRN IV PAIN LEVEL 7-10 Last administered on 07/03/16 19:49; Admin Dose 2 MG; Start 06/25/16 at 18:30 Prednisone (Prednisone) 40 mg DAILY GTB Last administered on 07/03/16 09:53; Admin Dose 40 MG; Start 06/27/16 at 14:30 Metoprolol Tartrate (Lopressor) 5 mg Q4H PRN IV HR>110 Last administered on 15:37; Admin Dose 5 MG; Start 06/28/16 at 16:00 Amiodarone HCl 200 mg 200 mg BID NGT Last administered on 07/03/16 21:40; Admin Dose 200 MG; Start 06/28/16 at 21:00 Potassium Chloride/Dextrose (D5W + KCl 20 Meq) 1,000 ml @ 50 mls/hr Q20H IV Last administered on 07/03/16 17:19; Admin Dose 50 MLS/HR; Start 07/02/16 at 20 :00 IV Flush 10 ml 10 ml PRN PRN IV IV PROTOCOL; Start 07/02/16 at 19:30 Octreotide Acetate 500 mcg/ Sodium Chloride 50 ml @ 2.5 mls/hr Q20H IV Last administered on 07/03/16 11:35; Admin Dose 2.5 MLS/HR; Start 07/03/16 at 11:30 Pantoprazole 80 mg/Sodium Chloride 100 ml @ 10 mls/hr Q10H IV Last administered on 07/03/16 19:15; Admin Dose 10 MLS/HR; Start 07/03/16 at 12:00 Caspofungin/ Sodium Chloride (Cancidas/NS) 250 ml @ 250 mls/hr Q24H IVPB ; Start 07/04/16 at 13:00; Stop 07/06/16 at 12:59 Tamsulosin HCl (Flomax) 0.4 mg HS PO ; Start 07/03/16 at 21:00 FAYE RUSHING MD Jul 03, 2016 23:08
[2016-07-04] VITALS (66 sets, daily range): BP systolic 76–127; BP diastolic 24–86; PULSE 46–73; RESP 9–34
[2016-07-04] MEDS: morphine 2 MG INJ IV PRN ×4 (01:04→21:58)
[2016-07-04 02:49] LABS: HEMATOCRIT 24.8 % (42.0-52.0); HEMOGLOBIN 7.9 g/dl (14.0-18.0)
[2016-07-04] MEDS: OCTREOTIDE 500 MCG in SOD CHLORIDE 0.9% 49 ML IV SCH ×2 (03:25→23:18)
[2016-07-04] MEDS: ACETAMINOPHEN 650MG/20.3ML CUP NGT PRN ×2 (05:06→10:46)
[2016-07-04] MEDS: PANTOPRAZOLE IV 80 MG in SOD CHLORIDE 0.9% 100 ML IV SCH ×2 (05:10→16:14)
[2016-07-04] MEDS: LEVOTHYROXINE 50 MCG TAB PO SCH (06:05)
[2016-07-04] MEDS: RIFAXIMIN 550 MG TAB PO SCH ×2 (08:49→20:26)
[2016-07-04] MEDS: FEBUXOSTAT 40 MG TABLET PO SCH (08:49)
[2016-07-04] MEDS: predniSONE 20 MG TAB GTB SCH (08:50)
[2016-07-04] MEDS: LACTULOSE 30ML CUP PO SCH ×4 (08:51→21:40)
[2016-07-04] MEDS: ARTIFICIAL TEARS 15 ML OPH BOTH EYES SCH ×4 (08:51→20:28)
[2016-07-04] MEDS ORDERED: NORepinephrine 8MG/250 ML (PMX 250 ML ONE (08:59)
[2016-07-04] MEDS: FINASTERIDE 5 MG TAB PO SCH (09:00)
[2016-07-04] MEDS: AMIODARONE 200 MG TAB NGT SCH ×2 (09:00→21:00)
[2016-07-04] MEDS: DUTASTERIDE 0.5 MG CAP PO SCH (09:00)
[2016-07-04] MEDS: METOPROLOL 25 MG TAB PO SCH ×2 (09:00→21:00)
[2016-07-04] MEDS ORDERED: NORepinephrine 8MG/250 ML (PMX 250 ML IV SCH (09:00)
[2016-07-04] MEDS ORDERED: DOPamine-D5W 1.6 MG/ML 250 ML ONE (10:30)
--- NOTE | 2016-07-04 10:44 | PN ---
Date/Time of Note Date/Time of Note DATE: 07/04/16 TIME: 10:41 Assessment/Plan VTE Prophylaxis VTE Prophylaxis Intervention: SCD's Lines/Catheters IV [facility]from [facility] PICC Line Central line still needed: Yes Urinary Cath still in place: Yes Reason Cath still needed: urinary retention Assessment/Plan Chief Complaint/Hosp Course Assessment/Plan 1. Esophageal variceal bleeding/post EVL, follow up with GI, continue PPI, continue octreotide, repeat endoscopy demonstrated multiple esophageal ulcer 3. Paroxysmal atrial fibrillation/atrial flutter, now back in sinus rhythm and remains thus - now in sinus - better rate controlled now. 4. REC NSVT - add BB as toleated - BEA stable now - no new episodes now - no ectopy noted today. 5. Resolving sepsis, on multiple antibiotics, follow up with ID 6. Encephalopathy-likely secondary to history of cirrhosis and alcohol abuse, improving 7. Anemia, , status post transfusions- H/H stable. Continue to monitor, transfuse as per protocol 8. Hypernatremia. follow up with electrolytes, start free water via G-tube 9. Coagulopathy, likely secondary to his history of cirrhosis and alcohol abuse 10. PEG, G-tube feeding [facility] if cleared by GI PT OT eval and treat Problems: Subjective 24 Hr Interval Summary Free Text/Dictation Status post removal of the Crandall patient had urinary retention Crandall was placed Patient complains of having abdominal anterior thoracic pain Tolerating PEG tube Complains of having rectal pain Exam/Review of Systems Vital Signs Vitals Vital Signs Date Time Temp Pulse Resp B/P Pulse Ox O2 Delivery O2 Flow Rate FiO2 07/04/16 08:14 60 07/04/16 06:00 14 103/49 99 Room Air 07/04/16 04:00 97.8 07/03/16 15:33 21 07/03/16 15:00 2.0 Intake and Output 07/03/16 07/03/16 07/04/16 15:00 23:00 07:00 Intake Total 650 ml 2040.0 ml 952.5 ml Output Total 565 ml 1100 ml 1025 ml Balance 85 ml 940.0 ml -72.5 ml Exam General: The patient is well-developed, in moderate distress. HEENT: Atraumatic, normocephalic. The pupils are equal and round . Neck: Supple with full range of motion. Chest: Normal expansion of the thorax during inspiration Lungs: Clear to auscultation bilaterally Heart: Normal S1-S2, Regular rhythm and rate. Abdomen: Soft , upper abdominal tenderness, nondistended , bowel sounds are present. Extremities: Normal to inspection, no edema no cyanosis Neurologic: Normal mental status,The patient is awake, alert and oriented . Results Result Diagram: 07/04/16 0204 07/03/16 0530 Results 24 hrs Laboratory Tests Test 07/03/16 13:41 07/03/16 19:15 07/04/16 02:04 Hemoglobin 7.8 L 7.4 L 7.9 L Hematocrit 24.9 L 23.5 L 24.8 L Medications Medications Current Medications Ondansetron HCl (Zofran Inj) 4 mg Q6H PRN IV NAUSEA AND/OR VOMITING; Start 06/09 at 04:30 Dutasteride (Avodart) 0.5 mg AM PO Last administered on 07/03/16 09:53; Admin Dose 0.5 MG; Start 06/09/16 at 09:00 Finasteride (Proscar) 5 mg AM PO Last administered on 07/03/16 09:52; Admin Dose 5 MG; Start 06/09/16 at 09:00 Levothyroxine Sodium (Synthroid) 50 mcg DAILY@06 PO Last administered on 06:05; Admin Dose 50 MCG; Start 06/09/16 at 06:00 IV Flush (NS 10 ml) 10 ml PRN PRN IV IV PROTOCOL; Start 06/09/16 at 17:00 Miscellaneous Information 1 ea NOTE XX ; Start 06/11/16 at 08:30 Rifaximin (Xifaxan) 550 mg BID PO Last administered on 07/04/16 08:49; Admin Dose 550 MG; Start 06/11/16 at 14:30 Eye Lubricant (Artificial Tears Oph) 2 drop QID BOTH EYES Last administered on 07/04/16 08:51; Admin Dose 2 DROP; Start 06/12/16 at 13:00 Hydralazine HCl (Apresoline) 10 mg Q2H PRN IV SBP>170; Start 06/12/16 at 17:00 Metoprolol Tartrate (Lopressor) 25 mg BID PO Last administered on 07/03/16 21: 43; Admin Dose 25 MG; Start 06/14/16 at 21:00 Acetaminophen (Tylenol Liquid) 650 mg Q4H PRN NGT PAIN AND OR ELEVATED TEMP Last administered on 07/04/16 05:06; Admin Dose 650 MG; Start 06/17/16 at 12:30 Lactulose (Enulose) 30 gm QID PO Last administered on 07/04/16 08:51; Admin Dose 30 GM; Start 06/24/16 at 21:30 Febuxostat (Uloric) 40 mg DAILY PO Last administered on 07/04/16 08:49; Admin Dose 40 MG; Start 06/25/16 at 15:00 Colchicine (Colchicine) 0.6 mg TID PRN PO gout pain Last administered on 13:31; Admin Dose 0.6 MG; Start 06/25/16 at 21:00 Lorazepam (Ativan) 1 mg Q6H PRN IV ANXIETY Last administered on 07/01/16 05:27 ; Admin Dose 1 MG; Start 06/25/16 at 18:30 Morphine Sulfate (morphine) 2 mg Q6H PRN IV PAIN LEVEL 7-10 Last administered on 07/04/16 07:51; Admin Dose 2 MG; Start 06/25/16 at 18:30 Prednisone (Prednisone) 40 mg DAILY GTB Last administered on 07/04/16 08:50; Admin Dose 40 MG; Start 06/27/16 at 14:30 Metoprolol Tartrate (Lopressor) 5 mg Q4H PRN IV HR>110 Last administered on 15:37; Admin Dose 5 MG; Start 06/28/16 at 16:00 Amiodarone HCl 200 mg 200 mg BID NGT Last administered on 07/03/16 21:40; Admin Dose 200 MG; Start 06/28/16 at 21:00 Potassium Chloride/Dextrose (D5W + KCl 20 Meq) 1,000 ml @ 50 mls/hr Q20H IV Last administered on 07/03/16 17:19; Admin Dose 50 MLS/HR; Start 07/02/16 at 20 :00 IV Flush 10 ml 10 ml PRN PRN IV IV PROTOCOL; Start 07/02/16 at 19:30 Octreotide Acetate 500 mcg/ Sodium Chloride 50 ml @ 2.5 mls/hr Q20H IV Last administered on 07/04/16 03:25; Admin Dose 2.5 MLS/HR; Start 07/03/16 at 11:30 Pantoprazole 80 mg/Sodium Chloride 100 ml @ 10 mls/hr Q10H IV Last administered on 07/04/16 05:10; Admin Dose 10 MLS/HR; Start 07/03/16 at 12:00 Caspofungin/ Sodium Chloride (Cancidas/NS) 250 ml @ 250 mls/hr Q24H IVPB ; Start 07/04/16 at 13:00; Stop 07/06/16 at 12:59 Tamsulosin HCl (Flomax) 0.4 mg HS PO ; Start 07/03/16 at 21:00 Miscellaneous Medication (Gi Cocktail (2)) 40 ml ONCE ONCE PO ; Start 07/04/16 at 11:00; Stop 07/04/16 at 11:01 Lidocaine 15 ml 15 ml ONCE ONCE PO ; Start 07/04/16 at 11:00; Stop 07/04/16 at 11:01 Dopamine HCl/ Dextrose 250 ml @ 7.35 mls/hr TITRATE IV ; Start 07/04/16 at 10: 30; Stop 07/04/16 at 23:59 NHI AHMADI MD Jul 04, 2016 10:44
[2016-07-04] MEDS: DOPamine-D5W 1.6 MG/ML 250 ML IV SCH (10:46)
[2016-07-04 11:00] LABS: ADD SCAN DIFF NO
[2016-07-04] MEDS ORDERED: LIDOCAINE 2% VISC 15 ML CUP PO ONE (11:00)
[2016-07-04] MEDS ORDERED: LIDOCAINE/MYLANTA 40 ML BTL PO ONE (11:00)
[2016-07-04 11:17] LABS: ALBUMIN 2.3 g/dl (3.3-4.9)
[2016-07-04 11:18] LABS: POTASSIUM 4.4 mmol/L (3.5-5.1)
[2016-07-04 11:20] LABS: ALBUMIN/GLOBULIN RATIO 0.82; BILIRUBIN,INDIRECT 0.7 mg/dl (0-1.1); BILIRUBIN,TOTAL 0.7 mg/dl (0.2-1.3); CREATININE 0.83 mg/dl (0.61-1.24); TOTAL PROTEIN 5.1 g/dl (6.1-8.1)
[2016-07-04 11:21] LABS: CALCIUM 7.6 mg/dl (8.4-10.2)
[2016-07-04 11:33] LABS: BASOPHILS % 0.2 % (0.0-2.0); EOSINOPHILS # 0.3 10^3/ul (0.0-0.5); EOSINOPHILS % 5.8 % (0.0-7.0); HEMATOCRIT 26.5 % (42.0-52.0); HEMOGLOBIN 8.1 g/dl (14.0-18.0); LYMPHOCYTES # 0.6 10^3/ul (0.8-2.9); LYMPHOCYTES % 12.8 % (15.0-51.0); MEAN CORPUSCULAR HEMOGLOBIN 28.1 pg (29.0-33.0); MEAN CORPUSCULAR HGB CONC 30.6 g/dl (32.0-37.0); MEAN PLATELET VOLUME 10.1 fl (7.4-10.4); MONOCYTE # 0.3 10^3/ul (0.3-0.9); MONOCYTES % 5.4 % (0.0-11.0); NEUTROPHIL # 3.7 10^3/ul (1.6-7.5); NEUTROPHILS % 74.8 % (39.0-77.0); PLATELET COUNT 105 10^3/UL (140-415); RED BLOOD COUNT 2.88 10^6/ul (4.70-6.10); RED CELL DISTRIBUTION WIDTH 18.6 % (11.5-14.5)
[2016-07-04] MEDS: D5W + KCL 20 MEQ 1,000 ML IV SCH (12:46)
[2016-07-04] MEDS: CASPOFUNGIN 35 MG in SOD CHLORIDE 0.9% 250 ML IVPB SCH (13:57)
--- NOTE | 2016-07-04 16:13 | PN ---
DATE: 07/04/2016 CARDIOLOGY FOLLOWUP NOTE SUBJECTIVE: On questioning, patient denies any complaints of chest pain or shortness of breath and as per the nurse, patient has been complaining of abdominal pain and has been having some stoo ls. PHYSICAL EXAMINATION: VITAL SIGNS: Stable. Blood pressure has been ranging from 86 to 136 systolic and patient is stayin g afebrile. The blood pressure just checked now is in the 70s and has been in the 70s over the last 40 minutes as per the nurse. NECK: JVP not raised. Carotid pulses with normal upstrokes. CHEST: Bilaterally symmetrical. HEART: Regular sinus rhythm with I/ systolic murmur. LUNGS: Clear to percussion and auscultation. ABDOMEN: Soft, nontender belly which is distended slightly. EXTREMITIES: Good femoral and pedal pulses. LABORATORY DATA: His hemoglobin/hematocrit are 7.9 and 24.8 respectively. There is no chemistries today. IMPRESSION: 1. Slight hypotension. 2. Gastrointestinal bleeding. 3. Anemia secondary to gastrointestinal bleeding. 4. Paroxysmal atrial fibrillation and flutter in the past, now in sinus rhythm. 5. Cirrhosis with status post banding of varices. RECOMMENDATIONS: At this stage include that I would start this patient on Levophed drip. Keep his systolic blood pressure above 90. Dictated By: JEANETTE ARGUELLO MD, RA/RICK Conf#: [id number] DID#: [id number]
--- NOTE | 2016-07-04 16:37 | CONS ---
Date/Time of Note Date/Time of Note DATE: 07/04/16 TIME: 16:32 Assessment/Plan Assessment/Plan Chief Complaint/Hosp Course ID PROGRESS NOTE TOTAL ABX DAY # 2 => Rx Cancidas x4 days s/p ABX 06/26 - 07/01 => total 6 days 24H INTERVAL SUMMARY * Urine cx (+)C.Albicans --> FC DC'd yesterday with voiding trials * Bladder scan today 700ML in bladder.Servin cath reinserted per protocol with no difficulty per RN * Am labs H/H 7.4/23.5 .Pt received 1 unit PRBC tolerated well.Repeat H/H 7.9/ 24.8 * Awake, resting comfortable without dyspnea on room air, PICC noted * Naomi: 07/01/16-1200 Rcvd: 07/01/16-1503 Source: SERVIN CATH Sp Descrip: ------- Microbiology URINE CULTURE Final Organism 1 CARMELINA ALBICANS COLONY COUNT >100,000 CFU/ml PHYSICAL EXAMINATION: GENERAL: VSS, NAD HEENT: Unremarkable NECK: Trach midline CHEST: Equal chest rise bilaterally, without dyspnea on observation HEART: Pulse RRR ABDOMEN: Soft/peg EXTREMITIES: Warm SKIN: See hard chart skin assessment ID ASSESSMENT: 71 yo M w/PMHx w/ PMHx Familial Mediterranean Fever, significant ETOH admit with : 1. Systemic inflammatory response syndrome, status post fevers. 2. Hepatic encephalopathy. 3. Alcoholic liver cirrhosis. 4. Acute anemia with rectal bleeding, gastroenterology on case. 5. History of variceal banding. 6. Dysphagia, status post percutaneous endoscopic gastrostomy. 7. UTI -> C. Albicans >100,000 * FC removed 07/03/16 * Cancidas started 07/03/16 8. Urinary retention -> FC re-inserted without difficulty 07/04/16 (-)MRSA Nares (+)VRE Stool Colonization INVASIVES: PIV ABX ALLERGY: None to ABX CURRENT ABX: => Rx Cancidas x4 days s/p ABX 06/26 - 07/01 => total 6 days ID RECOMMENDATIONS: 1.Continue short course Rx Cancidas x4 days = Diflucan w/many Drug-Drug interactions . Problems: Consultation Date/Type/Reason Admit Date/Time Jun 09, 2016 at 04:01 Initial Consult Date 06/09/16 Type of Consultation: id Referring Provider: MAURY BENITEZ MD Exam/Review of Systems Vital Signs Vitals Vital Signs Date Time Temp Pulse Resp B/P Pulse Ox O2 Delivery O2 Flow Rate FiO2 07/04/16 16:27 58 07/04/16 16:15 15 91/54 96 Room Air 07/04/16 12:00 97.8 07/04/16 11:00 21 07/03/16 15:00 2.0 Intake and Output 07/03/16 07/03/16 07/04/16 15:00 23:00 07:00 Intake Total 650 ml 2040.0 ml 952.5 ml Output Total 565 ml 1100 ml 1025 ml Balance 85 ml 940.0 ml -72.5 ml Results Result Diagram: 07/04/16 1040 07/04/16 1045 Results 24 hrs Laboratory Tests Test 07/03/16 19:15 07/04/16 02:04 07/04/16 10:40 07/04/16 10:45 Hemoglobin 7.4 L 7.9 L 8.1 L Hematocrit 23.5 L 24.8 L 26.5 L White Blood Count 5.0 # Red Blood Count 2.88 L Mean Corpuscular Volume 92.0 Mean Corpuscular Hemoglobin 28.1 L Mean Corpuscular Hemoglobin Concent 30.6 L Red Cell Distribution Width 18.6 H Platelet Count 105 #L Mean Platelet Volume 10.1 Neutrophils % 74.8 Lymphocytes % 12.8 L Monocytes % 5.4 Eosinophils % 5.8 Basophils % 0.2 Nucleated Red Blood Cells % 0.0 Neutrophils # 3.7 Lymphocytes # 0.6 L Monocytes # 0.3 Eosinophils # 0.3 Basophils # 0.0 Nucleated Red Blood Cells # 0.0 Sodium Level 147 H Potassium Level 4.4 Chloride Level 115 H Carbon Dioxide Level 25 Anion Gap 11 Blood Urea Nitrogen 34 H Creatinine 0.83 Glucose Level 145 Calcium Level 7.6 L Total Bilirubin 0.7 Direct Bilirubin 0.00 Indirect Bilirubin 0.7 Aspartate Amino Transf (AST/SGOT) 24 Alanine Aminotransferase (ALT/SGPT) 25 Alkaline Phosphatase 71 Total Protein 5.1 L Albumin 2.3 L Globulin 2.80 Albumin/Globulin Ratio 0.82 Medications Medications Current Medications Ondansetron HCl (Zofran Inj) 4 mg Q6H PRN IV NAUSEA AND/OR VOMITING; Start 06/09 at 04:30 Dutasteride (Avodart) 0.5 mg AM PO Last administered on 07/03/16 09:53; Admin Dose 0.5 MG; Start 06/09/16 at 09:00 Finasteride (Proscar) 5 mg AM PO Last administered on 07/03/16 09:52; Admin Dose 5 MG; Start 06/09/16 at 09:00 Levothyroxine Sodium (Synthroid) 50 mcg DAILY@06 PO Last administered on 06:05; Admin Dose 50 MCG; Start 06/09/16 at 06:00 IV Flush (NS 10 ml) 10 ml PRN PRN IV IV PROTOCOL; Start 06/09/16 at 17:00 Miscellaneous Information 1 ea NOTE XX ; Start 06/11/16 at 08:30 Rifaximin (Xifaxan) 550 mg BID PO Last administered on 07/04/16 08:49; Admin Dose 550 MG; Start 06/11/16 at 14:30 Eye Lubricant (Artificial Tears Oph) 2 drop QID BOTH EYES Last administered on 07/04/16 13:57; Admin Dose 2 DROP; Start 06/12/16 at 13:00 Hydralazine HCl (Apresoline) 10 mg Q2H PRN IV SBP>170; Start 06/12/16 at 17:00 Metoprolol Tartrate (Lopressor) 25 mg BID PO Last administered on 07/03/16 21: 43; Admin Dose 25 MG; Start 06/14/16 at 21:00 Acetaminophen (Tylenol Liquid) 650 mg Q4H PRN NGT PAIN AND OR ELEVATED TEMP Last administered on 07/04/16 10:46; Admin Dose 650 MG; Start 06/17/16 at 12:30 Lactulose (Enulose) 30 gm QID PO Last administered on 07/04/16 12:15; Admin Dose 30 GM; Start 06/24/16 at 21:30 Febuxostat (Uloric) 40 mg DAILY PO Last administered on 07/04/16 08:49; Admin Dose 40 MG; Start 06/25/16 at 15:00 Colchicine (Colchicine) 0.6 mg TID PRN PO gout pain Last administered on 13:31; Admin Dose 0.6 MG; Start 06/25/16 at 21:00 Lorazepam (Ativan) 1 mg Q6H PRN IV ANXIETY Last administered on 07/01/16 05:27 ; Admin Dose 1 MG; Start 06/25/16 at 18:30 Morphine Sulfate (morphine) 2 mg Q6H PRN IV PAIN LEVEL 7-10 Last administered on 07/04/16 16:15; Admin Dose 2 MG; Start 06/25/16 at 18:30 Prednisone (Prednisone) 40 mg DAILY GTB Last administered on 07/04/16 08:50; Admin Dose 40 MG; Start 06/27/16 at 14:30 Metoprolol Tartrate (Lopressor) 5 mg Q4H PRN IV HR>110 Last administered on 15:37; Admin Dose 5 MG; Start 06/28/16 at 16:00 Amiodarone HCl 200 mg 200 mg BID NGT Last administered on 07/03/16 21:40; Admin Dose 200 MG; Start 06/28/16 at 21:00 Potassium Chloride/Dextrose (D5W + KCl 20 Meq) 1,000 ml @ 50 mls/hr Q20H IV Last administered on 07/04/16 12:46; Admin Dose 50 MLS/HR; Start 07/02/16 at 20 :00 IV Flush 10 ml 10 ml PRN PRN IV IV PROTOCOL; Start 07/02/16 at 19:30 Octreotide Acetate 500 mcg/ Sodium Chloride 50 ml @ 2.5 mls/hr Q20H IV Last administered on 07/04/16 03:25; Admin Dose 2.5 MLS/HR; Start 07/03/16 at 11:30 Pantoprazole 80 mg/Sodium Chloride 100 ml @ 10 mls/hr Q10H IV Last administered on 07/04/16 16:14; Admin Dose 10 MLS/HR; Start 07/03/16 at 12:00 Caspofungin/ Sodium Chloride (Cancidas/NS) 250 ml @ 250 mls/hr Q24H IVPB Last administered on 07/04/16 13:57; Admin Dose 250 MLS/HR; Start 07/04/16 at 13:00 ; Stop 07/06/16 at 12:59 Tamsulosin HCl 0.4 mg 0.4 mg HS PO ; Start 07/03/16 at 21:00 Dopamine HCl/ Dextrose 250 ml @ 7.35 mls/hr TITRATE IV Last administered on 10:46; Admin Dose 7.35 MLS/HR; Start 07/04/16 at 10:30 LUIS E WALLACE NP Jul 04, 2016 16:36
--- NOTE | 2016-07-04 18:44 | RADRPT ---
PROCEDURE: XR Chest. CLINICAL INDICATION: Shortness of breath TECHNIQUE: Single frontal chest x-ray. COMPARISON: 07/02/2016 FINDINGS: The left-sided PICC line is seen with its tip in the SVC / innominate vein. Low lung volumes identif ied with vascular crowding and elevation left heart border. Mild pulmonary vascular congestion is no nancy. The cardiac silhouette is enlarged. Aortic arch is calcified. The osseous structures are unch anged. IMPRESSION: 1. Left-sided PICC line with its tip in the innominate vein. 2. Low lung volumes with basilar atelectasis. 2. Mild pulmonary vascular congestion, likely unchanged. RPTAT: QQ .Jj Gannon MD, Date Time Electronically viewed and signed by .Jj Gannon MD, MD on 07/04/2016 18:44 .d/
[2016-07-04] MEDS: TAMSULOSIN (SR) 0.4 MG CAP PO SCH (20:26)
--- NOTE | 2016-07-04 22:29 | CONS ---
Date/Time of Note Date/Time of Note DATE: 07/04/16 TIME: 22:28 Assessment/Plan Assessment/Plan Chief Complaint/Hosp Course Anemia - COMPLEX, MULTIFACTORIAL WITH COMPONENT ACD, ACUTE BLOOD LOSS AND SEVERE IRON DEFICIENCY IN THE PAST * Esophageal variceal bleeding/post EVL * CONT TO MONITOR BLOOD COUNT CLOSELY * OBSERVE FOR BLEEDING AND HEMOLYSIS * PRBC NEEDED, INCL TODAY * DROP H/H POST GT * OBSERVE FOR BLEEDING * POST EGD * GI F-UP * continue PPI and octreotide drips, monitor H and H, transfuse to keep hemoglobin equal or higher than 7.5, correct coagulopathy if necessary. Septicemia with bandemia and fever. Acute gout. Alcoholic cirrhosis * Post variceal bleeding/post EVL * Portal encephalopathy * Ascites * Unsafe swallowing/failed swallow eval/high risk for aspiration * POST EGD plus PEG. * POST paracenteses prior to procedure. Coagulopathy POST VIT K POST FFP FMF FEVER IMPROVED ON ATB AND COLCHICINE Problems: Consultation Date/Type/Reason Admit Date/Time Jun 09, 2016 at 04:01 Initial Consult Date 06/09/16 Type of Consultation: HEMEON Referring Provider: MAURY BENITEZ MD 24 HR Interval Summary Free Text/Dictation Status post removal of the Crandall patient had urinary retention Crandall was placed Patient complains of having abdominal anterior thoracic pain Tolerating PEG tube Complains of having rectal pain H/H STABLE PLATELET COUNT -DOWN Exam/Review of Systems Vital Signs Vitals Vital Signs Date Time Temp Pulse Resp B/P Pulse Ox O2 Delivery O2 Flow Rate FiO2 07/04/16 20:30 61 19 119/56 95 Room Air 07/04/16 20:00 98.0 07/04/16 18:30 21 07/03/16 15:00 2.0 Intake and Output 07/03/16 07/03/16 07/04/16 15:00 23:00 07:00 Intake Total 650 ml 2040.0 ml 952.5 ml Output Total 565 ml 1100 ml 1025 ml Balance 85 ml 940.0 ml -72.5 ml Exam General: The patient is well-developed, in moderate distress. HEENT: Atraumatic, normocephalic. The pupils are equal and round . Neck: Supple with full range of motion. Chest: Normal expansion of the thorax during inspiration Lungs: Clear to auscultation bilaterally Heart: Normal S1-S2, Regular rhythm and rate. Abdomen: Soft , upper abdominal tenderness, nondistended , bowel sounds are present. Extremities: Normal to inspection, no edema no cyanosis Neurologic: Normal mental status,The patient is awake, alert and oriented . Results Result Diagram: 07/04/16 1040 07/04/16 1045 Results 24 hrs Laboratory Tests Test 07/04/16 02:04 07/04/16 10:40 07/04/16 10:45 Hemoglobin 7.9 L 8.1 L Hematocrit 24.8 L 26.5 L White Blood Count 5.0 # Red Blood Count 2.88 L Mean Corpuscular Volume 92.0 Mean Corpuscular Hemoglobin 28.1 L Mean Corpuscular Hemoglobin Concent 30.6 L Red Cell Distribution Width 18.6 H Platelet Count 105 #L Mean Platelet Volume 10.1 Neutrophils % 74.8 Lymphocytes % 12.8 L Monocytes % 5.4 Eosinophils % 5.8 Basophils % 0.2 Nucleated Red Blood Cells % 0.0 Neutrophils # 3.7 Lymphocytes # 0.6 L Monocytes # 0.3 Eosinophils # 0.3 Basophils # 0.0 Nucleated Red Blood Cells # 0.0 Sodium Level 147 H Potassium Level 4.4 Chloride Level 115 H Carbon Dioxide Level 25 Anion Gap 11 Blood Urea Nitrogen 34 H Creatinine 0.83 Glucose Level 145 Calcium Level 7.6 L Total Bilirubin 0.7 Direct Bilirubin 0.00 Indirect Bilirubin 0.7 Aspartate Amino Transf (AST/SGOT) 24 Alanine Aminotransferase (ALT/SGPT) 25 Alkaline Phosphatase 71 Total Protein 5.1 L Albumin 2.3 L Globulin 2.80 Albumin/Globulin Ratio 0.82 Medications Medications Current Medications Ondansetron HCl (Zofran Inj) 4 mg Q6H PRN IV NAUSEA AND/OR VOMITING; Start 06/09 at 04:30 Dutasteride (Avodart) 0.5 mg AM PO Last administered on 07/03/16 09:53; Admin Dose 0.5 MG; Start 06/09/16 at 09:00 Finasteride (Proscar) 5 mg AM PO Last administered on 07/03/16 09:52; Admin Dose 5 MG; Start 06/09/16 at 09:00 Levothyroxine Sodium (Synthroid) 50 mcg DAILY@06 PO Last administered on 06:05; Admin Dose 50 MCG; Start 06/09/16 at 06:00 IV Flush (NS 10 ml) 10 ml PRN PRN IV IV PROTOCOL; Start 06/09/16 at 17:00 Miscellaneous Information 1 ea NOTE XX ; Start 06/11/16 at 08:30 Rifaximin (Xifaxan) 550 mg BID PO Last administered on 07/04/16 20:26; Admin Dose 550 MG; Start 06/11/16 at 14:30 Eye Lubricant (Artificial Tears Oph) 2 drop QID BOTH EYES Last administered on 07/04/16 20:28; Admin Dose 2 DROP; Start 06/12/16 at 13:00 Hydralazine HCl (Apresoline) 10 mg Q2H PRN IV SBP>170; Start 06/12/16 at 17:00 Metoprolol Tartrate (Lopressor) 25 mg BID PO Last administered on 07/03/16 21: 43; Admin Dose 25 MG; Start 06/14/16 at 21:00 Acetaminophen (Tylenol Liquid) 650 mg Q4H PRN NGT PAIN AND OR ELEVATED TEMP Last administered on 07/04/16 10:46; Admin Dose 650 MG; Start 06/17/16 at 12:30 Lactulose (Enulose) 30 gm QID PO Last administered on 07/04/16 21:40; Admin Dose 30 GM; Start 06/24/16 at 21:30 Febuxostat (Uloric) 40 mg DAILY PO Last administered on 07/04/16 08:49; Admin Dose 40 MG; Start 06/25/16 at 15:00 Colchicine (Colchicine) 0.6 mg TID PRN PO gout pain Last administered on 13:31; Admin Dose 0.6 MG; Start 06/25/16 at 21:00 Lorazepam (Ativan) 1 mg Q6H PRN IV ANXIETY Last administered on 07/01/16 05:27 ; Admin Dose 1 MG; Start 06/25/16 at 18:30 Morphine Sulfate (morphine) 2 mg Q6H PRN IV PAIN LEVEL 7-10 Last administered on 07/04/16 21:58; Admin Dose 2 MG; Start 06/25/16 at 18:30 Prednisone (Prednisone) 40 mg DAILY GTB Last administered on 07/04/16 08:50; Admin Dose 40 MG; Start 06/27/16 at 14:30 Metoprolol Tartrate (Lopressor) 5 mg Q4H PRN IV HR>110 Last administered on 15:37; Admin Dose 5 MG; Start 06/28/16 at 16:00 Amiodarone HCl 200 mg 200 mg BID NGT Last administered on 07/03/16 21:40; Admin Dose 200 MG; Start 06/28/16 at 21:00 Potassium Chloride/Dextrose (D5W + KCl 20 Meq) 1,000 ml @ 50 mls/hr Q20H IV Last administered on 07/04/16 12:46; Admin Dose 50 MLS/HR; Start 07/02/16 at 20 :00 IV Flush 10 ml 10 ml PRN PRN IV IV PROTOCOL; Start 07/02/16 at 19:30 Octreotide Acetate 500 mcg/ Sodium Chloride 50 ml @ 2.5 mls/hr Q20H IV Last administered on 07/04/16 03:25; Admin Dose 2.5 MLS/HR; Start 07/03/16 at 11:30 Pantoprazole 80 mg/Sodium Chloride 100 ml @ 10 mls/hr Q10H IV Last administered on 07/04/16 16:14; Admin Dose 10 MLS/HR; Start 07/03/16 at 12:00 Caspofungin/ Sodium Chloride (Cancidas/NS) 250 ml @ 250 mls/hr Q24H IVPB Last administered on 07/04/16 13:57; Admin Dose 250 MLS/HR; Start 07/04/16 at 13:00 ; Stop 07/06/16 at 12:59 Tamsulosin HCl 0.4 mg 0.4 mg HS PO Last administered on 07/04/16 20:26; Admin Dose 0.4 MG; Start 07/03/16 at 21:00 Dopamine HCl/ Dextrose 250 ml @ 7.35 mls/hr TITRATE IV Last administered on 10:46; Admin Dose 7.35 MLS/HR; Start 07/04/16 at 10:30 FAYE RUSHING MD Jul 04, 2016 22:29
[2016-07-05] VITALS (63 sets, daily range): BP systolic 77–127; BP diastolic 26–82; PULSE 52–107; RESP 9–25
[2016-07-05] MEDS: ACETAMINOPHEN 650MG/20.3ML CUP NGT PRN (00:05)
[2016-07-05] MEDS: morphine 2 MG INJ IV PRN ×3 (03:15→18:32)
[2016-07-05] MEDS: PANTOPRAZOLE IV 80 MG in SOD CHLORIDE 0.9% 100 ML IV SCH ×2 (03:17→15:51)
[2016-07-05] MEDS ORDERED: DOPamine-D5W 1.6 MG/ML 250 ML ONE ×2 (05:21→21:54)
[2016-07-05] MEDS: DOPamine-D5W 1.6 MG/ML 250 ML IV SCH ×2 (05:24→22:03)
[2016-07-05 05:26] LABS: ADD UMIC YES; URINE BILIRUBIN (Dip) NEGATIVE (NEGATIVE); URINE BLOOD (Dip) 3+ (NEGATIVE); URINE COLOR YELLOW (YELLOW); URINE GLUCOSE (Dip) NEGATIVE (NEGATIVE); URINE KETONES (Dip) NEGATIVE (NEGATIVE); URINE LEUKOCYTE ESTERASE (Dip) 1+ (NEGATIVE); URINE NITRITE (Dip) NEGATIVE (NEGATIVE); URINE TOTAL PROTEIN (Dip) TRACE (NEGATIVE); URINE UROBILINOGEN (Dip) 0.2 E.U./dL (0.1-1.0)
[2016-07-05 05:51] LABS: BACTERIA,URINE FEW; MUCUS,URINE OCCASIONAL
[2016-07-05 05:53] LABS: ADD SCAN DIFF NO; EOSINOPHILS # 0.2 10^3/ul (0.0-0.5); EOSINOPHILS % 2.9 % (0.0-7.0); HEMATOCRIT 25.9 % (42.0-52.0); HEMOGLOBIN 8.1 g/dl (14.0-18.0); LYMPHOCYTES % 18.2 % (15.0-51.0); MEAN CORPUSCULAR HGB CONC 31.3 g/dl (32.0-37.0); MEAN CORPUSCULAR VOLUME 92.8 fl (82.0-101.0); MEAN PLATELET VOLUME 10.7 fl (7.4-10.4); MONOCYTE # 0.5 10^3/ul (0.3-0.9); MONOCYTES % 9.7 % (0.0-11.0); NEUTROPHIL # 3.7 10^3/ul (1.6-7.5); NEUTROPHILS % 67.7 % (39.0-77.0); NUCLEATED RED BLOOD CELLS% 0.4 /100WBC (0.0-0.0); PLATELET COUNT 100 10^3/UL (140-415); RED BLOOD COUNT 2.79 10^6/ul (4.70-6.10); WHITE BLOOD COUNT 5.4 10^3/ul (4.8-10.8)
[2016-07-05] MEDS: LEVOTHYROXINE 50 MCG TAB PO SCH (06:00)
[2016-07-05 06:24] LABS: POTASSIUM 4.4 mmol/L (3.5-5.1)
[2016-07-05 06:27] LABS: CALCIUM 7.7 mg/dl (8.4-10.2); CREATININE 0.81 mg/dl (0.61-1.24)
[2016-07-05 06:28] LABS: MAGNESIUM 2.3 mg/dl (1.7-2.5)
[2016-07-05] MEDS: D5W + KCL 20 MEQ 1,000 ML IV SCH ×2 (08:00→14:30)
[2016-07-05] MEDS: FEBUXOSTAT 40 MG TABLET PO SCH (08:25)
[2016-07-05] MEDS: LACTULOSE 30ML CUP PO SCH ×4 (08:25→20:24)
[2016-07-05] MEDS: DUTASTERIDE 0.5 MG CAP PO SCH ×3 (08:25→09:00)
[2016-07-05] MEDS: predniSONE 20 MG TAB GTB SCH (08:25)
[2016-07-05] MEDS: RIFAXIMIN 550 MG TAB PO SCH ×2 (08:26→20:24)
[2016-07-05] MEDS: METOPROLOL 25 MG TAB PO SCH ×2 (08:28→20:26)
[2016-07-05] MEDS: AMIODARONE 200 MG TAB NGT SCH ×2 (08:28→10:07)
[2016-07-05] MEDS: FINASTERIDE 5 MG TAB PO SCH (08:29)
[2016-07-05] MEDS: ARTIFICIAL TEARS 15 ML OPH BOTH EYES SCH ×4 (08:29→20:25)
--- NOTE | 2016-07-05 10:05 | CONS ---
Date/Time of Note Date/Time of Note DATE: 07/05/16 TIME: 10:01 Assessment/Plan Assessment/Plan Chief Complaint/Hosp Course IMPRESSION: 1. Paroxysmal atrial fibrillation/atrial flutter-now SR on PO amio 2. Abnormal electrocardiogram. Assess for acute coronary syndrome. 3. Hypotension, now improved.-tolerating low dose BB 4. Gastrointestinal bleed.-s/p EGD with esophageal ulcers/varices s/p banding with ongoing GIB at this time 5. Cirrhosiss/p banding of varices 6. Encephalopathy-ongoing 7. Anemia-worsening 8. Hypernatremia 9. Coagulopathy 10.Fever 11.PNA 12.ARF-improved 14.Hypotension-on pressors Recc: -Tele -Continue amiodarone PO as patient able to take -Hold BB while on p-ressors -No asa/systemic anti-coag secondary to anemia/GIB -Follow MS closely -Follow Hgb closely -F/U cx data and continue abx's -Continue protonix/lactulose -Wean pressors as tolerated Problems: Consultation Date/Type/Reason Admit Date/Time Jun 09, 2016 at 04:01 Initial Consult Date 06/09/16 Type of Consultation: Cardiology Reason for Consultation hypotension Referring Provider: MAURY BENITEZ MD Exam/Review of Systems Vital Signs Vitals Vital Signs Date Time Temp Pulse Resp B/P Pulse Ox O2 Delivery O2 Flow Rate FiO2 07/05/16 08:00 62 07/05/16 06:15 17 106/57 95 Room Air 07/05/16 04:00 98.7 07/04/16 18:30 21 07/03/16 15:00 2.0 Intake and Output 07/04/16 07/04/16 07/05/16 15:00 23:00 07:00 Intake Total 801.450 ml 1536.0 ml 969.800 ml Output Total 50 ml 1600 ml 1380 ml Balance 751.450 ml -64.0 ml -410.200 ml Exam Review of Systems: CONSTITUTIONAL: No fevers, chills. PULMONARY: No sob CARDIOVASCULAR: No chest pain/palpitations GASTROINTESTINAL: No nausea/vomiting. GENITOURINARY: No hematuria/dysuria. MUSCULOSKELETAL: No myagias/arthalgias. PSYCHIATRIC: The patient denies depression. NEUROLOGIC: lethargic Constitutional: alert Psych: no complaints Head: normocephalic ENMT: mucosa pink and moist Neck: jvd (9 cm water), supple Respiratory: diminished breath sounds (at bases/B) Cardiovascular: regular rate and rhythm Gastrointestinal: non-tender, soft Musculoskeletal: muscle tone Extremities: normal pulses Neurological: confused (improving) Skin: other (No focal deficits) Results Result Diagram: 07/05/16 0500 07/05/16 0418 Results 24 hrs Laboratory Tests Test 07/04/16 10:40 07/04/16 10:45 07/05/16 04:00 07/05/16 04:18 White Blood Count 5.0 # Red Blood Count 2.88 L Hemoglobin 8.1 L Hematocrit 26.5 L Mean Corpuscular Volume 92.0 Mean Corpuscular Hemoglobin 28.1 L Mean Corpuscular Hemoglobin Concent 30.6 L Red Cell Distribution Width 18.6 H Platelet Count 105 #L Mean Platelet Volume 10.1 Neutrophils % 74.8 Lymphocytes % 12.8 L Monocytes % 5.4 Eosinophils % 5.8 Basophils % 0.2 Nucleated Red Blood Cells % 0.0 Neutrophils # 3.7 Lymphocytes # 0.6 L Monocytes # 0.3 Eosinophils # 0.3 Basophils # 0.0 Nucleated Red Blood Cells # 0.0 Sodium Level 147 H 145 H Potassium Level 4.4 4.4 Chloride Level 115 H 114 H Carbon Dioxide Level 25 25 Anion Gap 11 10 Blood Urea Nitrogen 34 H 31 H Creatinine 0.83 0.81 Glucose Level 145 110 Calcium Level 7.6 L 7.7 L Total Bilirubin 0.7 Direct Bilirubin 0.00 Indirect Bilirubin 0.7 Aspartate Amino Transf (AST/SGOT) 24 Alanine Aminotransferase (ALT/SGPT) 25 Alkaline Phosphatase 71 Total Protein 5.1 L Albumin 2.3 L Globulin 2.80 Albumin/Globulin Ratio 0.82 Urine Color YELLOW Urine Clarity CLEAR Urine pH 6.0 Urine Specific [place] 1.010 Urine Ketones NEGATIVE Urine Nitrite NEGATIVE Urine Bilirubin NEGATIVE Urine Urobilinogen 0.2 E.U./dL Urine Leukocyte Esterase 1+ H Urine Microscopic RBC 10-25 Urine Microscopic WBC 2-5 Urine Bacteria FEW Urine Mucus OCCASIONAL Urine Hemoglobin 3+ H Urine Glucose NEGATIVE Urine Total Protein TRACE Magnesium Level 2.3 Test 07/05/16 05:00 White Blood Count 5.4 Red Blood Count 2.79 L Hemoglobin 8.1 L Hematocrit 25.9 L Mean Corpuscular Volume 92.8 Mean Corpuscular Hemoglobin 29.0 Mean Corpuscular Hemoglobin Concent 31.3 L Red Cell Distribution Width 19.0 H Platelet Count 100 L Mean Platelet Volume 10.7 H Neutrophils % 67.7 Lymphocytes % 18.2 Monocytes % 9.7 Eosinophils % 2.9 Basophils % 0.0 Nucleated Red Blood Cells % 0.4 H Neutrophils # 3.7 Lymphocytes # 1.0 Monocytes # 0.5 Eosinophils # 0.2 Basophils # 0.0 Nucleated Red Blood Cells # 0.0 Medications Medications Current Medications Ondansetron HCl (Zofran Inj) 4 mg Q6H PRN IV NAUSEA AND/OR VOMITING; Start 06/09 at 04:30 Dutasteride (Avodart) 0.5 mg AM PO Last administered on 07/03/16 09:53; Admin Dose 0.5 MG; Start 06/09/16 at 09:00 Finasteride (Proscar) 5 mg AM PO Last administered on 07/05/16 08:29; Admin Dose 5 MG; Start 06/09/16 at 09:00 Levothyroxine Sodium (Synthroid) 50 mcg DAILY@06 PO Last administered on 06:00; Admin Dose 50 MCG; Start 06/09/16 at 06:00 IV Flush (NS 10 ml) 10 ml PRN PRN IV IV PROTOCOL; Start 06/09/16 at 17:00 Miscellaneous Information 1 ea NOTE XX ; Start 06/11/16 at 08:30 Rifaximin (Xifaxan) 550 mg BID PO Last administered on 07/05/16 08:26; Admin Dose 550 MG; Start 06/11/16 at 14:30 Eye Lubricant (Artificial Tears Oph) 2 drop QID BOTH EYES Last administered on 07/05/16 08:29; Admin Dose 2 DROP; Start 06/12/16 at 13:00 Hydralazine HCl (Apresoline) 10 mg Q2H PRN IV SBP>170; Start 06/12/16 at 17:00 Metoprolol Tartrate (Lopressor) 25 mg BID PO Last administered on 07/03/16 21: 43; Admin Dose 25 MG; Start 06/14/16 at 21:00 Acetaminophen (Tylenol Liquid) 650 mg Q4H PRN NGT PAIN AND OR ELEVATED TEMP Last administered on 07/05/16 00:05; Admin Dose 650 MG; Start 06/17/16 at 12:30 Lactulose (Enulose) 30 gm QID PO Last administered on 07/05/16 08:25; Admin Dose 30 GM; Start 06/24/16 at 21:30 Febuxostat (Uloric) 40 mg DAILY PO Last administered on 07/05/16 08:25; Admin Dose 40 MG; Start 06/25/16 at 15:00 Colchicine (Colchicine) 0.6 mg TID PRN PO gout pain Last administered on 13:31; Admin Dose 0.6 MG; Start 06/25/16 at 21:00 Lorazepam (Ativan) 1 mg Q6H PRN IV ANXIETY Last administered on 07/01/16 05:27 ; Admin Dose 1 MG; Start 06/25/16 at 18:30 Morphine Sulfate (morphine) 2 mg Q6H PRN IV PAIN LEVEL 7-10 Last administered on 07/05/16 03:15; Admin Dose 2 MG; Start 06/25/16 at 18:30 Prednisone (Prednisone) 40 mg DAILY GTB Last administered on 07/05/16 08:25; Admin Dose 40 MG; Start 06/27/16 at 14:30 Metoprolol Tartrate (Lopressor) 5 mg Q4H PRN IV HR>110 Last administered on 15:37; Admin Dose 5 MG; Start 06/28/16 at 16:00 Amiodarone HCl 200 mg 200 mg BID NGT Last administered on 07/03/16 21:40; Admin Dose 200 MG; Start 06/28/16 at 21:00 Potassium Chloride/Dextrose (D5W + KCl 20 Meq) 1,000 ml @ 50 mls/hr Q20H IV Last administered on 07/04/16 12:46; Admin Dose 50 MLS/HR; Start 07/02/16 at 20 :00 IV Flush 10 ml 10 ml PRN PRN IV IV PROTOCOL; Start 07/02/16 at 19:30 Octreotide Acetate 500 mcg/ Sodium Chloride 50 ml @ 2.5 mls/hr Q20H IV Last administered on 07/04/16 23:18; Admin Dose 2.5 MLS/HR; Start 07/03/16 at 11:30 Pantoprazole 80 mg/Sodium Chloride 100 ml @ 10 mls/hr Q10H IV Last administered on 07/05/16 03:17; Admin Dose 10 MLS/HR; Start 07/03/16 at 12:00 Caspofungin/ Sodium Chloride (Cancidas/NS) 250 ml @ 250 mls/hr Q24H IVPB Last administered on 07/04/16 13:57; Admin Dose 250 MLS/HR; Start 07/04/16 at 13:00 ; Stop 07/06/16 at 12:59 Tamsulosin HCl 0.4 mg 0.4 mg HS PO Last administered on 07/04/16 20:26; Admin Dose 0.4 MG; Start 07/03/16 at 21:00 Dopamine HCl/ Dextrose 250 ml @ 7.35 mls/hr TITRATE IV Last administered on 05:24; Admin Dose 7.35 MLS/HR; Start 07/04/16 at 10:30 ANGELES ODONNELL Jul 05, 2016 10:05
--- NOTE | 2016-07-05 10:37 | PN ---
Date/Time of Note Date/Time of Note DATE: 07/05/16 TIME: 10:35 Assessment/Plan VTE Prophylaxis VTE Prophylaxis Intervention: SCD's Lines/Catheters IV [facility] Type ([facility] PICC Line Central line still needed: Yes Urinary Cath still in place: Yes Reason Cath still needed: other (indicate) Assessment/Plan Chief Complaint/Hosp Course Assessment/Plan 1. Esophageal variceal bleeding/post EVL, follow up with GI, continue PPI, continue octreotide, repeat endoscopy demonstrated multiple esophageal ulcer 3. Paroxysmal atrial fibrillation/atrial flutter, now back in sinus rhythm and remains thus - now in sinus - better rate controlled now. 4. REC NSVT - add BB as toleated - BEA stable now - no new episodes now - no ectopy noted today. 5. Resolving sepsis, on multiple antibiotics, follow up with ID 6. Encephalopathy-likely secondary to history of cirrhosis and alcohol abuse, improving 7. Anemia, , status post transfusions- H/H stable. Continue to monitor, transfuse as per protocol 8. Hypernatremia. follow up with electrolytes, start free water via G-tube 9. Coagulopathy, likely secondary to his history of cirrhosis and alcohol abuse 10. PEG, G-tube feeding Transferred to [facility] if cleared by GI PT OT eval and treat Problems: Subjective 24 Hr Interval Summary Free Text/Dictation Improvement in abdominal discomfort No nausea vomiting Tolerating PEG tube feeding Denies any chest pain On intravenous Protonix and octreotide Pressors: On dopamine Exam/Review of Systems Vital Signs Vitals Vital Signs Date Time Temp Pulse Resp B/P Pulse Ox O2 Delivery O2 Flow Rate FiO2 07/05/16 10:00 107 109/75 96 Room Air 07/05/16 09:30 18 07/05/16 08:00 97.5 07/04/16 18:30 21 07/03/16 15:00 2.0 Intake and Output 07/04/16 07/04/16 07/05/16 15:00 23:00 07:00 Intake Total 801.450 ml 1536.0 ml 969.800 ml Output Total 50 ml 1600 ml 1380 ml Balance 751.450 ml -64.0 ml -410.200 ml Exam General: The patient is well-developed, Not in acute distress. HEENT: Atraumatic, normocephalic. The pupils are equal and round . Neck: Supple Chest: Normal expansion of the thorax during inspiration Lungs: Clear to auscultation bilaterally Heart: Normal S1-S2, Regular rhythm and rate. Abdomen: Soft , nontender, nondistended , bowel sounds are present. PEG tube in place Extremities: Normal to inspection, no edema no cyanosis Neurologic: The patient is awake, alert Results Result Diagram: 07/05/16 0500 07/05/16 0418 Results 24 hrs Laboratory Tests Test 07/04/16 10:40 07/04/16 10:45 07/05/16 04:00 07/05/16 04:18 White Blood Count 5.0 # Red Blood Count 2.88 L Hemoglobin 8.1 L Hematocrit 26.5 L Mean Corpuscular Volume 92.0 Mean Corpuscular Hemoglobin 28.1 L Mean Corpuscular Hemoglobin Concent 30.6 L Red Cell Distribution Width 18.6 H Platelet Count 105 #L Mean Platelet Volume 10.1 Neutrophils % 74.8 Lymphocytes % 12.8 L Monocytes % 5.4 Eosinophils % 5.8 Basophils % 0.2 Nucleated Red Blood Cells % 0.0 Neutrophils # 3.7 Lymphocytes # 0.6 L Monocytes # 0.3 Eosinophils # 0.3 Basophils # 0.0 Nucleated Red Blood Cells # 0.0 Sodium Level 147 H 145 H Potassium Level 4.4 4.4 Chloride Level 115 H 114 H Carbon Dioxide Level 25 25 Anion Gap 11 10 Blood Urea Nitrogen 34 H 31 H Creatinine 0.83 0.81 Glucose Level 145 110 Calcium Level 7.6 L 7.7 L Total Bilirubin 0.7 Direct Bilirubin 0.00 Indirect Bilirubin 0.7 Aspartate Amino Transf (AST/SGOT) 24 Alanine Aminotransferase (ALT/SGPT) 25 Alkaline Phosphatase 71 Total Protein 5.1 L Albumin 2.3 L Globulin 2.80 Albumin/Globulin Ratio 0.82 Urine Color YELLOW Urine Clarity CLEAR Urine pH 6.0 Urine Specific [place] 1.010 Urine Ketones NEGATIVE Urine Nitrite NEGATIVE Urine Bilirubin NEGATIVE Urine Urobilinogen 0.2 E.U./dL Urine Leukocyte Esterase 1+ H Urine Microscopic RBC 10-25 Urine Microscopic WBC 2-5 Urine Bacteria FEW Urine Mucus OCCASIONAL Urine Hemoglobin 3+ H Urine Glucose NEGATIVE Urine Total Protein TRACE Magnesium Level 2.3 Test 07/05/16 05:00 White Blood Count 5.4 Red Blood Count 2.79 L Hemoglobin 8.1 L Hematocrit 25.9 L Mean Corpuscular Volume 92.8 Mean Corpuscular Hemoglobin 29.0 Mean Corpuscular Hemoglobin Concent 31.3 L Red Cell Distribution Width 19.0 H Platelet Count 100 L Mean Platelet Volume 10.7 H Neutrophils % 67.7 Lymphocytes % 18.2 Monocytes % 9.7 Eosinophils % 2.9 Basophils % 0.0 Nucleated Red Blood Cells % 0.4 H Neutrophils # 3.7 Lymphocytes # 1.0 Monocytes # 0.5 Eosinophils # 0.2 Basophils # 0.0 Nucleated Red Blood Cells # 0.0 Medications Medications Current Medications Ondansetron HCl (Zofran Inj) 4 mg Q6H PRN IV NAUSEA AND/OR VOMITING; Start 06/09 at 04:30 Dutasteride (Avodart) 0.5 mg AM PO Last administered on 07/03/16 09:53; Admin Dose 0.5 MG; Start 06/09/16 at 09:00 Finasteride (Proscar) 5 mg AM PO Last administered on 07/05/16 08:29; Admin Dose 5 MG; Start 06/09/16 at 09:00 Levothyroxine Sodium (Synthroid) 50 mcg DAILY@06 PO Last administered on 06:00; Admin Dose 50 MCG; Start 06/09/16 at 06:00 IV Flush (NS 10 ml) 10 ml PRN PRN IV IV PROTOCOL; Start 06/09/16 at 17:00 Miscellaneous Information 1 ea NOTE XX ; Start 06/11/16 at 08:30 Rifaximin (Xifaxan) 550 mg BID PO Last administered on 07/05/16 08:26; Admin Dose 550 MG; Start 06/11/16 at 14:30 Eye Lubricant (Artificial Tears Oph) 2 drop QID BOTH EYES Last administered on 07/05/16 08:29; Admin Dose 2 DROP; Start 06/12/16 at 13:00 Hydralazine HCl (Apresoline) 10 mg Q2H PRN IV SBP>170; Start 06/12/16 at 17:00 Metoprolol Tartrate (Lopressor) 25 mg BID PO Last administered on 07/03/16 21: 43; Admin Dose 25 MG; Start 06/14/16 at 21:00 Acetaminophen (Tylenol Liquid) 650 mg Q4H PRN NGT PAIN AND OR ELEVATED TEMP Last administered on 07/05/16 00:05; Admin Dose 650 MG; Start 06/17/16 at 12:30 Lactulose (Enulose) 30 gm QID PO Last administered on 07/05/16 08:25; Admin Dose 30 GM; Start 06/24/16 at 21:30 Febuxostat (Uloric) 40 mg DAILY PO Last administered on 07/05/16 08:25; Admin Dose 40 MG; Start 06/25/16 at 15:00 Colchicine (Colchicine) 0.6 mg TID PRN PO gout pain Last administered on 13:31; Admin Dose 0.6 MG; Start 06/25/16 at 21:00 Lorazepam (Ativan) 1 mg Q6H PRN IV ANXIETY Last administered on 07/01/16 05:27 ; Admin Dose 1 MG; Start 06/25/16 at 18:30 Morphine Sulfate (morphine) 2 mg Q6H PRN IV PAIN LEVEL 7-10 Last administered on 07/05/16 03:15; Admin Dose 2 MG; Start 06/25/16 at 18:30 Prednisone (Prednisone) 40 mg DAILY GTB Last administered on 07/05/16 08:25; Admin Dose 40 MG; Start 06/27/16 at 14:30 Metoprolol Tartrate (Lopressor) 5 mg Q4H PRN IV HR>110 Last administered on 15:37; Admin Dose 5 MG; Start 06/28/16 at 16:00 Amiodarone HCl 200 mg 200 mg BID NGT Last administered on 07/05/16 10:07; Admin Dose 200 MG; Start 06/28/16 at 21:00 Potassium Chloride/Dextrose (D5W + KCl 20 Meq) 1,000 ml @ 50 mls/hr Q20H IV Last administered on 07/04/16 12:46; Admin Dose 50 MLS/HR; Start 07/02/16 at 20 :00 IV Flush 10 ml 10 ml PRN PRN IV IV PROTOCOL; Start 07/02/16 at 19:30 Octreotide Acetate 500 mcg/ Sodium Chloride 50 ml @ 2.5 mls/hr Q20H IV Last administered on 07/04/16 23:18; Admin Dose 2.5 MLS/HR; Start 07/03/16 at 11:30 Pantoprazole 80 mg/Sodium Chloride 100 ml @ 10 mls/hr Q10H IV Last administered on 07/05/16 03:17; Admin Dose 10 MLS/HR; Start 07/03/16 at 12:00 Caspofungin/ Sodium Chloride (Cancidas/NS) 250 ml @ 250 mls/hr Q24H IVPB Last administered on 07/04/16 13:57; Admin Dose 250 MLS/HR; Start 07/04/16 at 13:00 ; Stop 07/06/16 at 12:59 Tamsulosin HCl 0.4 mg 0.4 mg HS PO Last administered on 07/04/16 20:26; Admin Dose 0.4 MG; Start 07/03/16 at 21:00 Dopamine HCl/ Dextrose 250 ml @ 7.35 mls/hr TITRATE IV Last administered on 05:24; Admin Dose 7.35 MLS/HR; Start 07/04/16 at 10:30 NHI AHMADI MD Jul 05, 2016 10:37
--- NOTE | 2016-07-05 11:23 | PN ---
DATE: SUBJECTIVE: The patient is clinically unchanged. He was started on a dopamine drip yesterday for l ow blood pressure. He is awake, confused. at bedside. The patient is in no distress, slightl y tachycardic with a temperature of 97.5, pulse 107, respirations 18, blood pressure 109/75, saturat ion 96% on room air. WBC 5.4, H and H 8.1 and 25.9, platelets 100, neutrophils 67.7. BUN 31, creatinine 0.81. MICROBIOLOGY: Urine culture sent on 07/01/2016 grew Dorina albicans. DIAGNOSTICS: Chest x-ray from yesterday revealed mild pulmonary vascular congestion. INDWELLINGS: Rectal tube, Crandall catheter, left upper extremity PICC line placed on 06/09/2016. ANTIMICROBIALS: The patient was started on Cancidas. He is status post Zyvox and meropenem. PHYSICAL EXAMINATION: GENERAL: This is a chronically ill-appearing, elderly man who is awake, in no distress. HEENT: Head atraumatic, normocephalic. Sclerae anicteric. Buccal mucosa dry. NECK: Supple. CHEST: Rise symmetrical. Breath sounds diminished to bases. HEART: S1, S2. ABDOMEN: Distended, soft. Bowel tones hypoactive. EXTREMITIES: Without cyanosis. Trace edema. SKIN: No rashes. ASSESSMENT: 1. Shock, likely septic, possibly hypovolemic. 2. Urinary tract infection with urine culture growing Dorina albicans. 3. Anemia, status post GI bleeding, status post variceal banding. 4. Dysphagia, status post percutaneous endoscopic gastrostomy placement on 06/28/2016. 5. Alcoholic liver cirrhosis with hepatic encephalopathy. 6. 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 8. Paroxysmal atrial fibrillation, on amiodarone. PLAN: The patient remains clinically unchanged. He is being followed by multiple consultants. He is on dopamine drip. Cardiology follows him. We started him on Cancidas for Dorina albicans that he grows in his urine, which we will continue. The patient is not a candidate for Diflucan because of interaction with amiodarone. We will repeat blood cultures today again from PICC line. Dictated By: STACIE TAMEZ [employer]MENT [employer] for [employer] Conf#: [id number] [facility]#: [id number]
--- NOTE | 2016-07-05 13:08 | CONS ---
Date/Time of Note Date/Time of Note DATE: 07/05/16 TIME: 13:08 Assessment/Plan Assessment/Plan Chief Complaint/Hosp Course Anemia - COMPLEX, MULTIFACTORIAL WITH COMPONENT ACD, ACUTE BLOOD LOSS AND SEVERE IRON DEFICIENCY IN THE PAST * Esophageal variceal bleeding/post EVL * CONT TO MONITOR BLOOD COUNT CLOSELY * OBSERVE FOR BLEEDING AND HEMOLYSIS * PRBC NEEDED, INCL TODAY * DROP H/H POST GT * OBSERVE FOR BLEEDING * POST EGD * GI F-UP * continue PPI and octreotide drips, monitor H and H, transfuse to keep hemoglobin equal or higher than 7.5, correct coagulopathy if necessary. Septicemia with bandemia and fever. Acute gout. Alcoholic cirrhosis * Post variceal bleeding/post EVL * Portal encephalopathy * Ascites * Unsafe swallowing/failed swallow eval/high risk for aspiration * POST EGD plus PEG. * POST paracenteses prior to procedure. Coagulopathy POST VIT K POST FFP FMF FEVER IMPROVED ON ATB AND COLCHICINE Problems: Consultation Date/Type/Reason Admit Date/Time Jun 09, 2016 at 04:01 Initial Consult Date 06/09/16 [facility] Referring Provider: MAURY BENITEZ MD 24 HR Interval Summary Free Text/Dictation Improvement in abdominal discomfort No nausea vomiting Tolerating PEG tube feeding Denies any chest pain On intravenous Protonix and octreotide Pressors: On dopamine Exam/Review of Systems Vital Signs Vitals Vital Signs Date Time Temp Pulse Resp B/P Pulse Ox O2 Delivery O2 Flow Rate FiO2 07/05/16 12:00 97.9 66 113/65 96 Room Air 07/05/16 09:30 18 07/04/16 18:30 21 07/03/16 15:00 2.0 Intake and Output 07/04/16 07/04/16 07/05/16 15:00 23:00 07:00 Intake Total 801.450 ml 1536.0 ml 1197.000 ml Output Total 50 ml 1600 ml 1440 ml Balance 751.450 ml -64.0 ml -243.000 ml Exam General: The patient is well-developed, in moderate distress. HEENT: Atraumatic, normocephalic. The pupils are equal and round . Neck: Supple with full range of motion. Chest: Normal expansion of the thorax during inspiration Lungs: Clear to auscultation bilaterally Heart: Normal S1-S2, Regular rhythm and rate. Abdomen: Soft , upper abdominal tenderness, nondistended , bowel sounds are present. Extremities: Normal to inspection, no edema no cyanosis Neurologic: Normal mental status,The patient is awake, alert and oriented . Results Result Diagram: 07/05/16 0500 07/05/16 0418 Results 24 hrs Laboratory Tests Test 07/05/16 04:00 07/05/16 04:18 07/05/16 05:00 Urine Color YELLOW Urine Clarity CLEAR Urine pH 6.0 Urine Specific [place] 1.010 Urine Ketones NEGATIVE Urine Nitrite NEGATIVE Urine Bilirubin NEGATIVE Urine Urobilinogen 0.2 E.U./dL Urine Leukocyte Esterase 1+ H Urine Microscopic RBC 10-25 Urine Microscopic WBC 2-5 Urine Bacteria FEW Urine Mucus OCCASIONAL Urine Hemoglobin 3+ H Urine Glucose NEGATIVE Urine Total Protein TRACE Sodium Level 145 H Potassium Level 4.4 Chloride Level 114 H Carbon Dioxide Level 25 Anion Gap 10 Blood Urea Nitrogen 31 H Creatinine 0.81 Glucose Level 110 Calcium Level 7.7 L Magnesium Level 2.3 White Blood Count 5.4 Red Blood Count 2.79 L Hemoglobin 8.1 L Hematocrit 25.9 L Mean Corpuscular Volume 92.8 Mean Corpuscular Hemoglobin 29.0 Mean Corpuscular Hemoglobin Concent 31.3 L Red Cell Distribution Width 19.0 H Platelet Count 100 L Mean Platelet Volume 10.7 H Neutrophils % 67.7 Lymphocytes % 18.2 Monocytes % 9.7 Eosinophils % 2.9 Basophils % 0.0 Nucleated Red Blood Cells % 0.4 H Neutrophils # 3.7 Lymphocytes # 1.0 Monocytes # 0.5 Eosinophils # 0.2 Basophils # 0.0 Nucleated Red Blood Cells # 0.0 Medications Medications Current Medications Ondansetron HCl (Zofran Inj) 4 mg Q6H PRN IV NAUSEA AND/OR VOMITING; Start 06/09 at 04:30 Dutasteride (Avodart) 0.5 mg AM PO Last administered on 07/03/16 09:53; Admin Dose 0.5 MG; Start 06/09/16 at 09:00 Finasteride (Proscar) 5 mg AM PO Last administered on 07/05/16 08:29; Admin Dose 5 MG; Start 06/09/16 at 09:00 Levothyroxine Sodium (Synthroid) 50 mcg DAILY@06 PO Last administered on 06:00; Admin Dose 50 MCG; Start 06/09/16 at 06:00 IV Flush (NS 10 ml) 10 ml PRN PRN IV IV PROTOCOL; Start 06/09/16 at 17:00 Miscellaneous Information 1 ea NOTE XX ; Start 06/11/16 at 08:30 Rifaximin (Xifaxan) 550 mg BID PO Last administered on 07/05/16 08:26; Admin Dose 550 MG; Start 06/11/16 at 14:30 Eye Lubricant (Artificial Tears Oph) 2 drop QID BOTH EYES Last administered on 07/05/16 08:29; Admin Dose 2 DROP; Start 06/12/16 at 13:00 Hydralazine HCl (Apresoline) 10 mg Q2H PRN IV SBP>170; Start 06/12/16 at 17:00 Metoprolol Tartrate (Lopressor) 25 mg BID PO Last administered on 07/03/16 21: 43; Admin Dose 25 MG; Start 06/14/16 at 21:00 Acetaminophen (Tylenol Liquid) 650 mg Q4H PRN NGT PAIN AND OR ELEVATED TEMP Last administered on 07/05/16 00:05; Admin Dose 650 MG; Start 06/17/16 at 12:30 Lactulose (Enulose) 30 gm QID PO Last administered on 07/05/16 08:25; Admin Dose 30 GM; Start 06/24/16 at 21:30 Febuxostat (Uloric) 40 mg DAILY PO Last administered on 07/05/16 08:25; Admin Dose 40 MG; Start 06/25/16 at 15:00 Colchicine (Colchicine) 0.6 mg TID PRN PO gout pain Last administered on 13:31; Admin Dose 0.6 MG; Start 06/25/16 at 21:00 Lorazepam (Ativan) 1 mg Q6H PRN IV ANXIETY Last administered on 07/01/16 05:27 ; Admin Dose 1 MG; Start 06/25/16 at 18:30 Morphine Sulfate (morphine) 2 mg Q6H PRN IV PAIN LEVEL 7-10 Last administered on 07/05/16 11:15; Admin Dose 2 MG; Start 06/25/16 at 18:30 Prednisone (Prednisone) 40 mg DAILY GTB Last administered on 07/05/16 08:25; Admin Dose 40 MG; Start 06/27/16 at 14:30 Metoprolol Tartrate (Lopressor) 5 mg Q4H PRN IV HR>110 Last administered on 15:37; Admin Dose 5 MG; Start 06/28/16 at 16:00 Amiodarone HCl 200 mg 200 mg BID NGT Last administered on 07/05/16 10:07; Admin Dose 200 MG; Start 06/28/16 at 21:00 Potassium Chloride/Dextrose (D5W + KCl 20 Meq) 1,000 ml @ 50 mls/hr Q20H IV Last administered on 07/04/16 12:46; Admin Dose 50 MLS/HR; Start 07/02/16 at 20 :00 IV Flush 10 ml 10 ml PRN PRN IV IV PROTOCOL; Start 07/02/16 at 19:30 Octreotide Acetate 500 mcg/ Sodium Chloride 50 ml @ 2.5 mls/hr Q20H IV Last administered on 07/04/16 23:18; Admin Dose 2.5 MLS/HR; Start 07/03/16 at 11:30 Pantoprazole 80 mg/Sodium Chloride 100 ml @ 10 mls/hr Q10H IV Last administered on 07/05/16 03:17; Admin Dose 10 MLS/HR; Start 07/03/16 at 12:00 Caspofungin/ Sodium Chloride (Cancidas/NS) 250 ml @ 250 mls/hr Q24H IVPB Last administered on 07/04/16 13:57; Admin Dose 250 MLS/HR; Start 07/04/16 at 13:00 ; Stop 07/06/16 at 12:59 Tamsulosin HCl 0.4 mg 0.4 mg HS PO Last administered on 07/04/16 20:26; Admin Dose 0.4 MG; Start 07/03/16 at 21:00 Dopamine HCl/ Dextrose 250 ml @ 7.35 mls/hr TITRATE IV Last administered on 05:24; Admin Dose 7.35 MLS/HR; Start 07/04/16 at 10:30 FAYE RUSHING MD Jul 05, 2016 13:08
[2016-07-05] MEDS: CASPOFUNGIN 35 MG in SOD CHLORIDE 0.9% 250 ML IVPB SCH (14:00)
--- NOTE | 2016-07-05 14:20 | PN ---
Date/Time of Note Date/Time of Note DATE: 07/05/16 TIME: 14:09 Assessment/Plan VTE Prophylaxis VTE Prophylaxis Intervention: SCD's Lines/Catheters IV Catheter Type (from [facility]): PICC Line Central line still needed: Yes Urinary Cath still in place: Yes Reason Cath still needed: urinary retention Assessment/Plan Assessment/Plan Esophageal variceal bleeding/post EVL * Anemia secondary to above hemoglobin 8.1 * Alcoholic cirrhosis * Post variceal bleeding/post EVL * Portal encephalopathy * Ascites/Neg U/S * Coagulopathy * Unsafe swallowing/failed swallow eval/high risk for aspiration * Post uneventful PEG/Tolerating feedings EGD with PEG placement 06/28/16 Esophageal ulcers with some old clots in the area, but no active bleeding. . Nasogastric tube trauma present. Uneventful percutaneous endoscopic gastrostomy tube placement with placement of [place] 20 gastrostomy tube. VRE Shock likely due to sepsis Plan : continue pressor management continue g tube feeding monitor H and H Q6 transfuse per protocol monitor for signs and symptoms of bleeding Discontinue octreotide drip Subjective 24 Hr Interval Summary Free Text/Dictation * course reviewed with rn * patient seen and examined * patient more awake today,tolerating g tube feeding * on pressors (dopamine) but blood pressure stable * no active bleeding per rectal tube ,no hematemesis * still on ppi /octreotide drip * latest hemoglobin 8.1 Exam/Review of Systems Vital Signs Vitals Vital Signs Date Time Temp Pulse Resp B/P Pulse Ox O2 Delivery O2 Flow Rate FiO2 07/05/16 12:00 97.9 66 113/65 96 Room Air 07/05/16 09:30 18 07/04/16 18:30 21 07/03/16 15:00 2.0 Intake and Output 07/04/16 07/04/16 07/05/16 15:00 23:00 07:00 Intake Total 801.450 ml 1536.0 ml 1197.000 ml Output Total 50 ml 1600 ml 1440 ml Balance 751.450 ml -64.0 ml -243.000 ml Exam General survey moreawake with bouts of confusion Head: atraumatic, normocephalic Neck: non-tender, supple Cardiovascular: nl pulses, regular rate and rhythm Gastrointestinal: , distended, soft, With bowel sounds,PEG in placed,no bleeding No mass, No rebound or guarding, Non tender,rectal tube in placed Musculoskeletal: nl extremities to inspection Skin: nl turgor, No rash or lesions Results Result Diagram: 07/05/16 0500 07/05/16 0418 Results 24 hrs Laboratory Tests Test 07/05/16 04:00 07/05/16 04:18 07/05/16 05:00 Urine Color YELLOW Urine Clarity CLEAR Urine pH 6.0 Urine Specific [place] 1.010 Urine Ketones NEGATIVE Urine Nitrite NEGATIVE Urine Bilirubin NEGATIVE Urine Urobilinogen 0.2 E.U./dL Urine Leukocyte Esterase 1+ H Urine Microscopic RBC 10-25 Urine Microscopic WBC 2-5 Urine Bacteria FEW Urine Mucus OCCASIONAL Urine Hemoglobin 3+ H Urine Glucose NEGATIVE Urine Total Protein TRACE Sodium Level 145 H Potassium Level 4.4 Chloride Level 114 H Carbon Dioxide Level 25 Anion Gap 10 Blood Urea Nitrogen 31 H Creatinine 0.81 Glucose Level 110 Calcium Level 7.7 L Magnesium Level 2.3 White Blood Count 5.4 Red Blood Count 2.79 L Hemoglobin 8.1 L Hematocrit 25.9 L Mean Corpuscular Volume 92.8 Mean Corpuscular Hemoglobin 29.0 Mean Corpuscular Hemoglobin Concent 31.3 L Red Cell Distribution Width 19.0 H Platelet Count 100 L Mean Platelet Volume 10.7 H Neutrophils % 67.7 Lymphocytes % 18.2 Monocytes % 9.7 Eosinophils % 2.9 Basophils % 0.0 Nucleated Red Blood Cells % 0.4 H Neutrophils # 3.7 Lymphocytes # 1.0 Monocytes # 0.5 Eosinophils # 0.2 Basophils # 0.0 Nucleated Red Blood Cells # 0.0 Medications Medications Current Medications Ondansetron HCl (Zofran Inj) 4 mg Q6H PRN IV NAUSEA AND/OR VOMITING; Start 06/09 at 04:30 Dutasteride (Avodart) 0.5 mg AM PO Last administered on 07/03/16 09:53; Admin Dose 0.5 MG; Start 06/09/16 at 09:00 Finasteride (Proscar) 5 mg AM PO Last administered on 07/05/16 08:29; Admin Dose 5 MG; Start 06/09/16 at 09:00 Levothyroxine Sodium (Synthroid) 50 mcg DAILY@06 PO Last administered on 06:00; Admin Dose 50 MCG; Start 06/09/16 at 06:00 IV Flush (NS 10 ml) 10 ml PRN PRN IV IV PROTOCOL; Start 06/09/16 at 17:00 Miscellaneous Information 1 ea NOTE XX ; Start 06/11/16 at 08:30 Rifaximin (Xifaxan) 550 mg BID PO Last administered on 07/05/16 08:26; Admin Dose 550 MG; Start 06/11/16 at 14:30 Eye Lubricant (Artificial Tears Oph) 2 drop QID BOTH EYES Last administered on 07/05/16 08:29; Admin Dose 2 DROP; Start 06/12/16 at 13:00 Hydralazine HCl (Apresoline) 10 mg Q2H PRN IV SBP>170; Start 06/12/16 at 17:00 Metoprolol Tartrate (Lopressor) 25 mg BID PO Last administered on 07/03/16 21: 43; Admin Dose 25 MG; Start 06/14/16 at 21:00 Acetaminophen (Tylenol Liquid) 650 mg Q4H PRN NGT PAIN AND OR ELEVATED TEMP Last administered on 07/05/16 00:05; Admin Dose 650 MG; Start 06/17/16 at 12:30 Lactulose (Enulose) 30 gm QID PO Last administered on 07/05/16 08:25; Admin Dose 30 GM; Start 06/24/16 at 21:30 Febuxostat (Uloric) 40 mg DAILY PO Last administered on 07/05/16 08:25; Admin Dose 40 MG; Start 06/25/16 at 15:00 Colchicine (Colchicine) 0.6 mg TID PRN PO gout pain Last administered on 13:31; Admin Dose 0.6 MG; Start 06/25/16 at 21:00 Lorazepam (Ativan) 1 mg Q6H PRN IV ANXIETY Last administered on 07/01/16 05:27 ; Admin Dose 1 MG; Start 06/25/16 at 18:30 Morphine Sulfate (morphine) 2 mg Q6H PRN IV PAIN LEVEL 7-10 Last administered on 07/05/16 11:15; Admin Dose 2 MG; Start 06/25/16 at 18:30 Prednisone (Prednisone) 40 mg DAILY GTB Last administered on 07/05/16 08:25; Admin Dose 40 MG; Start 06/27/16 at 14:30 Metoprolol Tartrate (Lopressor) 5 mg Q4H PRN IV HR>110 Last administered on 15:37; Admin Dose 5 MG; Start 06/28/16 at 16:00 Amiodarone HCl 200 mg 200 mg BID NGT Last administered on 07/05/16 10:07; Admin Dose 200 MG; Start 06/28/16 at 21:00 Potassium Chloride/Dextrose (D5W + KCl 20 Meq) 1,000 ml @ 50 mls/hr Q20H IV Last administered on 07/04/16 12:46; Admin Dose 50 MLS/HR; Start 07/02/16 at 20 :00 IV Flush 10 ml 10 ml PRN PRN IV IV PROTOCOL; Start 07/02/16 at 19:30 Octreotide Acetate 500 mcg/ Sodium Chloride 50 ml @ 2.5 mls/hr Q20H IV Last administered on 07/04/16 23:18; Admin Dose 2.5 MLS/HR; Start 07/03/16 at 11:30 Pantoprazole 80 mg/Sodium Chloride 100 ml @ 10 mls/hr Q10H IV Last administered on 07/05/16 03:17; Admin Dose 10 MLS/HR; Start 07/03/16 at 12:00 Caspofungin/ Sodium Chloride (Cancidas/NS) 250 ml @ 250 mls/hr Q24H IVPB Last administered on 07/04/16 13:57; Admin Dose 250 MLS/HR; Start 07/04/16 at 13:00 ; Stop 07/06/16 at 12:59 Tamsulosin HCl 0.4 mg 0.4 mg HS PO Last administered on 07/04/16 20:26; Admin Dose 0.4 MG; Start 07/03/16 at 21:00 Dopamine HCl/ Dextrose 250 ml @ 7.35 mls/hr TITRATE IV Last administered on 05:24; Admin Dose 7.35 MLS/HR; Start 07/04/16 at 10:30 JAC DAVIS MD Jul 05, 2016 14:19
[2016-07-05 19:54] LABS: HEMATOCRIT 25.1 % (42.0-52.0); HEMOGLOBIN 7.8 g/dl (14.0-18.0)
[2016-07-05] MEDS: INSULIN ASPART [NOVOLOG] 3 ML PEN SC SCH (20:00)
[2016-07-05] MEDS ORDERED: GLUCOSE GEL 15 GRAM TUBE PO PRN ×2 (20:00)
[2016-07-05] MEDS ORDERED: DEXTROSE 50% 50 ML SYRINGE IV PRN ×2 (20:00)
[2016-07-05] MEDS ORDERED: GLUCOSE GEL 15 GRAM TUBE BUCCAL PRN (20:00)
[2016-07-05] MEDS ORDERED: GLUCAGON 1 MG INJ IM PRN (20:00)
[2016-07-05] MEDS: TAMSULOSIN (SR) 0.4 MG CAP PO SCH (20:24)
[2016-07-05] MEDS: morphine 4 MG/ML VIAL IV PRN (21:57)
[2016-07-05] MEDS: COLCHICINE 0.6 MG TAB PO PRN (22:45)
[2016-07-06] VITALS (79 sets, daily range): BP systolic 70–136; BP diastolic 34–111; PULSE 51–101; RESP 3–22
[2016-07-06 05:08] LABS: ADD SCAN DIFF NO
[2016-07-06] MEDS: morphine 4 MG/ML VIAL IV PRN ×3 (05:18→18:44)
[2016-07-06 05:21] LABS: ABNORMAL IP MESSAGE 1; BASOPHILS % 0.2 % (0.0-2.0); EOSINOPHILS # 0.2 10^3/ul (0.0-0.5); EOSINOPHILS % 3.7 % (0.0-7.0); HEMATOCRIT 25.8 % (42.0-52.0); LYMPHOCYTES # 0.9 10^3/ul (0.8-2.9); LYMPHOCYTES % 14.5 % (15.0-51.0); MEAN CORPUSCULAR HEMOGLOBIN 28.7 pg (29.0-33.0); MEAN CORPUSCULAR VOLUME 92.5 fl (82.0-101.0); MEAN PLATELET VOLUME 10.8 fl (7.4-10.4); MONOCYTE # 0.5 10^3/ul (0.3-0.9); MONOCYTES % 9.1 % (0.0-11.0); NEUTROPHIL # 4.2 10^3/ul (1.6-7.5); NEUTROPHILS % 70.7 % (39.0-77.0); NUCLEATED RED BLOOD CELLS% 0.5 /100WBC (0.0-0.0); PLATELET COUNT 90 10^3/UL (140-415); RED BLOOD COUNT 2.79 10^6/ul (4.70-6.10); RED CELL DISTRIBUTION WIDTH 18.3 % (11.5-14.5)
[2016-07-06] MEDS: INSULIN ASPART [NOVOLOG] 3 ML PEN SC SCH ×4 (06:00→18:03)
[2016-07-06] MEDS: D5W + KCL 20 MEQ 1,000 ML IV SCH (06:44)
[2016-07-06] MEDS: PANTOPRAZOLE IV 80 MG in SOD CHLORIDE 0.9% 100 ML IV SCH ×4 (06:44→15:32)
[2016-07-06] MEDS: LEVOTHYROXINE 50 MCG TAB PO SCH (06:45)
[2016-07-06 07:22] LABS: POTASSIUM 4.4 mmol/L (3.5-5.1)
[2016-07-06 07:24] LABS: CREATININE 0.78 mg/dl (0.61-1.24)
[2016-07-06 07:25] LABS: CALCIUM 7.9 mg/dl (8.4-10.2); MAGNESIUM 2.1 mg/dl (1.7-2.5)
--- NOTE | 2016-07-06 08:43 | CONS ---
Date/Time of Note Date/Time of Note DATE: 07/06/16 TIME: 08:40 Assessment/Plan Assessment/Plan Additional Assessment/Plan 1. Paroxysmal atrial fibrillation/atrial flutter-now SR on PO amio - In SINUS NOW 2. Abnormal electrocardiogram. Assess for acute coronary syndrome - no signs of ischemia. 3. Hypotension, now improved.-tolerating low dose BB - Rx as needed 4. Gastrointestinal bleed.-s/p EGD with esophageal ulcers/varices s/p banding with ongoing GIB at this time 5. Cirrhosiss/p banding of varices - GI team follows 6. Encephalopathy-ongoing- more awake now 7. Anemia-worsening 8. Hypernatremia 9. Coagulopathy 10.Fever 11.PNA - on anbti-Bx now 12.ARF-improved 14.Hypotension-on pressors Consultation Date/Type/Reason Admit Date/Time Jun 09, 2016 at 04:01 Initial Consult Date 06/09/16 [facility] Referring Provider: MAURY BENITEZ MD 24 HR Interval Summary Free Text/Dictation NO acute events - in sinus - BP stable - con't ICU team ROS: No fever, no chills, no nausea, no vomiting, no diarrhea/constipation No recent weight changes No chest pain, no PND, no orthopnea No dizziness, blurred vision No thirst, no heat or cold intolerance Exam/Review of Systems Vital Signs Vitals Vital Signs Date Time Temp Pulse Resp B/P Pulse Ox O2 Delivery O2 Flow Rate FiO2 07/06/16 06:00 74 14 90/56 93 Room Air 07/06/16 04:00 98.1 07/04/16 18:30 21 07/03/16 15:00 2.0 Intake and Output 07/05/16 07/05/16 07/06/16 15:00 23:00 07:00 Intake Total 1337.9 ml 915.05 ml 1409.825 ml Output Total 590 ml 615 ml 1350 ml Balance 747.9 ml 300.05 ml 59.825 ml Exam General: WN/WD/NAD, AOx 1-2 HEENT: Unicetric/atraumatic/EOMI (does not follow commands) NECK: JVD elevated, no thyromegaly Lymph: no lymphadenopathy HEART: regular with no S3, II/ systolic murmur at apex LUNGS: Coarse sounds ABD: soft, NT, ND, +BS : Intact Neuro: non focal SKIN: chronic changes EXT: trace edema Results Result Diagram: 07/06/16 0405 07/06/16 0405 Results 24 hrs Laboratory Tests Test 07/05/16 19:40 07/05/16 20:21 07/06/16 00:37 07/06/16 04:05 Hemoglobin 7.8 L 8.0 L Hematocrit 25.1 L 25.8 L Bedside Glucose 136 115 White Blood Count 6.0 Red Blood Count 2.79 L Mean Corpuscular Volume 92.5 Mean Corpuscular Hemoglobin 28.7 L Mean Corpuscular Hemoglobin Concent 31.0 L Red Cell Distribution Width 18.3 H Platelet Count 90 L Mean Platelet Volume 10.8 H Neutrophils % 70.7 Lymphocytes % 14.5 L Monocytes % 9.1 Eosinophils % 3.7 Basophils % 0.2 Nucleated Red Blood Cells % 0.5 H Neutrophils # 4.2 Lymphocytes # 0.9 Monocytes # 0.5 Eosinophils # 0.2 Basophils # 0.0 Nucleated Red Blood Cells # 0.0 Sodium Level 143 Potassium Level 4.4 Chloride Level 113 H Carbon Dioxide Level 26 Anion Gap 8 Blood Urea Nitrogen 23 H Creatinine 0.78 Glucose Level 123 Calcium Level 7.9 L Magnesium Level 2.1 Test 07/06/16 06:46 Bedside Glucose 116 Medications Medications Current Medications Ondansetron HCl (Zofran Inj) 4 mg Q6H PRN IV NAUSEA AND/OR VOMITING; Start 06/09 at 04:30 Dutasteride (Avodart) 0.5 mg AM PO Last administered on 07/03/16 09:53; Admin Dose 0.5 MG; Start 06/09/16 at 09:00 Finasteride (Proscar) 5 mg AM PO Last administered on 07/05/16 08:29; Admin Dose 5 MG; Start 06/09/16 at 09:00 Levothyroxine Sodium (Synthroid) 50 mcg DAILY@06 PO Last administered on 06:45; Admin Dose 50 MCG; Start 06/09/16 at 06:00 IV Flush (NS 10 ml) 10 ml PRN PRN IV IV PROTOCOL; Start 06/09/16 at 17:00 Miscellaneous Information 1 ea NOTE XX ; Start 06/11/16 at 08:30 Rifaximin (Xifaxan) 550 mg BID PO Last administered on 07/05/16 20:24; Admin Dose 550 MG; Start 06/11/16 at 14:30 Eye Lubricant (Artificial Tears Oph) 2 drop QID BOTH EYES Last administered on 07/05/16 20:25; Admin Dose 2 DROP; Start 06/12/16 at 13:00 Hydralazine HCl (Apresoline) 10 mg Q2H PRN IV SBP>170; Start 06/12/16 at 17:00 Acetaminophen (Tylenol Liquid) 650 mg Q4H PRN NGT PAIN AND OR ELEVATED TEMP Last administered on 07/05/16 00:05; Admin Dose 650 MG; Start 06/17/16 at 12:30 Lactulose (Enulose) 30 gm QID PO Last administered on 07/05/16 20:24; Admin Dose 30 GM; Start 06/24/16 at 21:30 Febuxostat (Uloric) 40 mg DAILY PO Last administered on 07/05/16 08:25; Admin Dose 40 MG; Start 06/25/16 at 15:00 Colchicine (Colchicine) 0.6 mg TID PRN PO gout pain Last administered on 22:45; Admin Dose 0.6 MG; Start 06/25/16 at 21:00 Lorazepam (Ativan) 1 mg Q6H PRN IV ANXIETY Last administered on 07/01/16 05:27 ; Admin Dose 1 MG; Start 06/25/16 at 18:30 Prednisone (Prednisone) 40 mg DAILY GTB Last administered on 07/05/16 08:25; Admin Dose 40 MG; Start 06/27/16 at 14:30 Metoprolol Tartrate (Lopressor) 5 mg Q4H PRN IV HR>110 Last administered on 15:37; Admin Dose 5 MG; Start 06/28/16 at 16:00 Amiodarone HCl 200 mg 200 mg BID NGT Last administered on 07/05/16 10:07; Admin Dose 200 MG; Start 06/28/16 at 21:00 Potassium Chloride/Dextrose (D5W + KCl 20 Meq) 1,000 ml @ 50 mls/hr Q20H IV Last administered on 07/06/16 06:44; Admin Dose 50 MLS/HR; Start 07/02/16 at 20 :00 IV Flush 10 ml 10 ml PRN PRN IV IV PROTOCOL; Start 07/02/16 at 19:30 Pantoprazole 80 mg/Sodium Chloride 100 ml @ 10 mls/hr Q10H IV Last administered on 07/06/16 06:44; Admin Dose 10 MLS/HR; Start 07/03/16 at 12:00 Caspofungin/ Sodium Chloride (Cancidas/NS) 250 ml @ 250 mls/hr Q24H IVPB Last administered on 07/05/16 14:00; Admin Dose 250 MLS/HR; Start 07/04/16 at 13:00 ; Stop 07/06/16 at 12:59 Tamsulosin HCl 0.4 mg 0.4 mg HS PO Last administered on 07/05/16 20:24; Admin Dose 0.4 MG; Start 07/03/16 at 21:00 Dopamine HCl/ Dextrose 250 ml @ 7.35 mls/hr TITRATE IV Last administered on 22:03; Admin Dose 14.7 MLS/HR; Start 07/04/16 at 10:30 Insulin Aspart (Novolog Insulin Pen) NOVOLOG *MILD* ALGORI... Q6 SC ; Start at 20:00 Miscellaneous Information 1 ea NOTE XX ; Start 07/05/16 at 20:00 Glucose (Glutose) 15 gm Q15M PRN PO DECREASED GLUCOSE; Start 07/05/16 at 20:00 Glucose (Glutose) 22.5 gm Q15M PRN PO DECREASED GLUCOSE; Start 07/05/16 at 20: 00 Dextrose (D50w Syringe) 25 ml Q15M PRN IV DECREASED GLUCOSE; Start 07/05/16 at 20:00 Dextrose (D50w Syringe) 50 ml Q15M PRN IV DECREASED GLUCOSE; Start 07/05/16 at 20:00 Glucagon (Glucagen) 1 mg Q15M PRN IM DECREASED GLUCOSE; Start 07/05/16 at 20:00 Glucose (Glutose) 15 gm Q15M PRN BUCCAL DECREASED GLUCOSE; Start 07/05/16 at 20 :00 Morphine Sulfate (morphine) 4 mg Q4H PRN IV PAIN Last administered on 05:18; Admin Dose 4 MG; Start 07/05/16 at 22:00 Metoprolol Tartrate (Lopressor) 25 mg BID PO ; Start 07/06/16 at 09:00 BLADIMIR DEAN MD Jul 06, 2016 08:43
[2016-07-06] MEDS: FINASTERIDE 5 MG TAB PO SCH (09:00)
[2016-07-06] MEDS: METOPROLOL 25 MG TAB PO SCH ×2 (09:00→21:00)
[2016-07-06] MEDS ORDERED: DOPamine-D5W 1.6 MG/ML 250 ML ONE (09:16)
[2016-07-06] MEDS: ARTIFICIAL TEARS 15 ML OPH BOTH EYES SCH ×4 (09:22→20:30)
[2016-07-06] MEDS: DUTASTERIDE 0.5 MG CAP PO SCH (09:22)
[2016-07-06] MEDS: LACTULOSE 30ML CUP PO SCH ×4 (09:22→20:34)
[2016-07-06] MEDS: FEBUXOSTAT 40 MG TABLET PO SCH (09:22)
[2016-07-06] MEDS: AMIODARONE 200 MG TAB NGT SCH ×2 (09:23→20:30)
[2016-07-06] MEDS: predniSONE 20 MG TAB GTB SCH (09:23)
[2016-07-06] MEDS: RIFAXIMIN 550 MG TAB PO SCH ×2 (09:24→20:31)
[2016-07-06] MEDS: DOPamine-D5W 1.6 MG/ML 250 ML IV SCH (09:27)
--- NOTE | 2016-07-06 12:44 | PN ---
Date/Time of Note Date/Time of Note DATE: 07/06/16 TIME: 12:42 Assessment/Plan VTE Prophylaxis VTE Prophylaxis Intervention: SCD's Lines/Catheters IV Catheter Type (from Nrs): PICC Line Central line still needed: Yes Urinary Cath still in place: Yes Reason Cath still needed: other (indicate) Assessment/Plan Chief Complaint/Hosp Course Assessment/Plan 1. Esophageal variceal bleeding/post EVL, follow up with GI, continue PPI, continue octreotide, repeat endoscopy demonstrated multiple esophageal ulcer 3. Paroxysmal atrial fibrillation/atrial flutter, now back in sinus rhythm and remains thus - now in sinus - better rate controlled now. 4. REC NSVT - add BB as toleated - BEA stable now - no new episodes now - no ectopy noted today. 5. Resolving sepsis, on multiple antibiotics, follow up with ID 6. Encephalopathy-likely secondary to history of cirrhosis and alcohol abuse, improving 7. Anemia, , status post transfusions- H/H stable. Continue to monitor, transfuse as per protocol 8. Hypernatremia. follow up with electrolytes, start free water via G-tube 9. Coagulopathy, likely secondary to his history of cirrhosis and alcohol abuse 10. PEG, G-tube feeding Holding ICU secondary to pressors PT OT eval and treat Problems: Subjective 24 Hr Interval Summary Free Text/Dictation No acute changes Patient continues to be on pressors via dopamine Tolerating PEG tube feeding No episodes of GI bleed Exam/Review of Systems Vital Signs Vitals Vital Signs Date Time Temp Pulse Resp B/P Pulse Ox O2 Delivery O2 Flow Rate FiO2 07/06/16 11:15 87 16 92/50 90 Room Air 07/06/16 08:00 98.0 07/04/16 18:30 21 07/03/16 15:00 2.0 Intake and Output 07/05/16 07/05/16 07/06/16 15:00 23:00 07:00 Intake Total 1337.9 ml 915.05 ml 1409.825 ml Output Total 590 ml 615 ml 1350 ml Balance 747.9 ml 300.05 ml 59.825 ml Exam General: The patient is moderately overweight, Not in acute distress. HEENT: Atraumatic, normocephalic. The pupils are equal and round . Neck: Supple with full range of motion. Chest: Normal expansion of the thorax during inspiration Lungs: Clear to auscultation bilaterally Heart: Normal S1-S2, Regular rhythm and rate. Abdomen: Soft , nontender, moderately distended , bowel sounds are present. PEG tube in place Extremities: Normal to inspection, no edema no cyanosis Neurologic: Normal mental status,The patient is awake, alert and oriented . Results Result Diagram: 07/06/16 0405 07/06/16 0405 Results 24 hrs Laboratory Tests Test 07/05/16 19:40 07/05/16 20:21 07/06/16 00:37 07/06/16 04:05 Hemoglobin 7.8 L 8.0 L Hematocrit 25.1 L 25.8 L Bedside Glucose 136 115 White Blood Count 6.0 Red Blood Count 2.79 L Mean Corpuscular Volume 92.5 Mean Corpuscular Hemoglobin 28.7 L Mean Corpuscular Hemoglobin Concent 31.0 L Red Cell Distribution Width 18.3 H Platelet Count 90 L Mean Platelet Volume 10.8 H Neutrophils % 70.7 Lymphocytes % 14.5 L Monocytes % 9.1 Eosinophils % 3.7 Basophils % 0.2 Nucleated Red Blood Cells % 0.5 H Neutrophils # 4.2 Lymphocytes # 0.9 Monocytes # 0.5 Eosinophils # 0.2 Basophils # 0.0 Nucleated Red Blood Cells # 0.0 Sodium Level 143 Potassium Level 4.4 Chloride Level 113 H Carbon Dioxide Level 26 Anion Gap 8 Blood Urea Nitrogen 23 H Creatinine 0.78 Glucose Level 123 Calcium Level 7.9 L Magnesium Level 2.1 Test 07/06/16 06:46 07/06/16 12:36 Bedside Glucose 116 184 Medications Medications Current Medications Ondansetron HCl (Zofran Inj) 4 mg Q6H PRN IV NAUSEA AND/OR VOMITING; Start 06/09 at 04:30 Dutasteride (Avodart) 0.5 mg AM PO Last administered on 07/06/16 09:22; Admin Dose 0.5 MG; Start 06/09/16 at 09:00 Finasteride (Proscar) 5 mg AM PO Last administered on 07/05/16 08:29; Admin Dose 5 MG; Start 06/09/16 at 09:00 Levothyroxine Sodium (Synthroid) 50 mcg DAILY@06 PO Last administered on 06:45; Admin Dose 50 MCG; Start 06/09/16 at 06:00 IV Flush (NS 10 ml) 10 ml PRN PRN IV IV PROTOCOL; Start 06/09/16 at 17:00 Miscellaneous Information 1 ea NOTE XX ; Start 06/11/16 at 08:30 Rifaximin (Xifaxan) 550 mg BID PO Last administered on 07/06/16 09:24; Admin Dose 550 MG; Start 06/11/16 at 14:30 Eye Lubricant (Artificial Tears Oph) 2 drop QID BOTH EYES Last administered on 07/06/16 12:39; Admin Dose 2 DROP; Start 06/12/16 at 13:00 Hydralazine HCl (Apresoline) 10 mg Q2H PRN IV SBP>170; Start 06/12/16 at 17:00 Acetaminophen (Tylenol Liquid) 650 mg Q4H PRN NGT PAIN AND OR ELEVATED TEMP Last administered on 07/05/16 00:05; Admin Dose 650 MG; Start 06/17/16 at 12:30 Lactulose (Enulose) 30 gm QID PO Last administered on 07/06/16 12:38; Admin Dose 30 GM; Start 06/24/16 at 21:30 Febuxostat (Uloric) 40 mg DAILY PO Last administered on 07/06/16 09:22; Admin Dose 40 MG; Start 06/25/16 at 15:00 Colchicine (Colchicine) 0.6 mg TID PRN PO gout pain Last administered on 22:45; Admin Dose 0.6 MG; Start 06/25/16 at 21:00 Lorazepam (Ativan) 1 mg Q6H PRN IV ANXIETY Last administered on 07/01/16 05:27 ; Admin Dose 1 MG; Start 06/25/16 at 18:30 Prednisone (Prednisone) 40 mg DAILY GTB Last administered on 07/06/16 09:23; Admin Dose 40 MG; Start 06/27/16 at 14:30 Metoprolol Tartrate (Lopressor) 5 mg Q4H PRN IV HR>110 Last administered on 15:37; Admin Dose 5 MG; Start 06/28/16 at 16:00 Amiodarone HCl 200 mg 200 mg BID NGT Last administered on 07/06/16 09:23; Admin Dose 200 MG; Start 06/28/16 at 21:00 Potassium Chloride/Dextrose (D5W + KCl 20 Meq) 1,000 ml @ 50 mls/hr Q20H IV Last administered on 07/06/16 06:44; Admin Dose 50 MLS/HR; Start 07/02/16 at 20 :00 IV Flush 10 ml 10 ml PRN PRN IV IV PROTOCOL; Start 07/02/16 at 19:30 Pantoprazole 80 mg/Sodium Chloride 100 ml @ 10 mls/hr Q10H IV Last administered on 07/06/16 06:44; Admin Dose 10 MLS/HR; Start 07/03/16 at 12:00 Caspofungin/ Sodium Chloride (Cancidas/NS) 250 ml @ 250 mls/hr Q24H IVPB Last administered on 07/05/16 14:00; Admin Dose 250 MLS/HR; Start 07/04/16 at 13:00 ; Stop 07/06/16 at 12:59 Tamsulosin HCl 0.4 mg 0.4 mg HS PO Last administered on 07/05/16 20:24; Admin Dose 0.4 MG; Start 07/03/16 at 21:00 Dopamine HCl/ Dextrose 250 ml @ 7.35 mls/hr TITRATE IV Last administered on 09:27; Admin Dose 36.75 MLS/HR; Start 07/04/16 at 10:30 Insulin Aspart (Novolog Insulin Pen) NOVOLOG *MILD* ALGORI... Q6 SC ; Start at 20:00 Miscellaneous Information 1 ea NOTE XX ; Start 07/05/16 at 20:00 Glucose (Glutose) 15 gm Q15M PRN PO DECREASED GLUCOSE; Start 07/05/16 at 20:00 Glucose (Glutose) 22.5 gm Q15M PRN PO DECREASED GLUCOSE; Start 07/05/16 at 20: 00 Dextrose (D50w Syringe) 25 ml Q15M PRN IV DECREASED GLUCOSE; Start 07/05/16 at 20:00 Dextrose (D50w Syringe) 50 ml Q15M PRN IV DECREASED GLUCOSE; Start 07/05/16 at 20:00 Glucagon (Glucagen) 1 mg Q15M PRN IM DECREASED GLUCOSE; Start 07/05/16 at 20:00 Glucose (Glutose) 15 gm Q15M PRN BUCCAL DECREASED GLUCOSE; Start 07/05/16 at 20 :00 Morphine Sulfate (morphine) 4 mg Q4H PRN IV PAIN Last administered on t 10:42; Admin Dose 4 MG; Start 07/05/16 at 22:00 Metoprolol Tartrate (Lopressor) 25 mg BID PO ; Start 07/06/16 at 09:00 NHI AHMADI MD Jul 06, 2016 12:44
--- NOTE | 2016-07-06 13:43 | CONS ---
Date/Time of Note Date/Time of Note DATE: 07/06/16 TIME: 13:36 Consult Date/Type/Reason Admit Date/Time Jun 09, 2016 at 04:01 Initial Consult Date 06/09/16 Type of Consultation: gastroenterology Ordering Provider: MAURY BENITEZ MD Subjective * course reviewed with nurse * patient seen and examined * denies any hematemesis/hematochezia * still dopamine drip 6 uggts/hour * latest hemoglobin 8 * tolerating tube feeding Objective Vital Signs Date Time Temp Pulse Resp B/P Pulse Ox O2 Delivery O2 Flow Rate FiO2 07/06/16 12:00 79 07/06/16 11:15 16 92/50 90 Room Air 07/06/16 08:00 98.0 07/04/16 18:30 21 07/03/16 15:00 2.0 Intake and Output 07/05/16 07/05/16 07/06/16 15:00 23:00 07:00 Intake Total 1337.9 ml 915.05 ml 1409.825 ml Output Total 590 ml 615 ml 1350 ml Balance 747.9 ml 300.05 ml 59.825 ml Exam Constitutional: alert, forgetful well developed Psych: nl mood/affect Respiratory: clear to auscultation, normal air movement Cardiovascular: regular rate and rhythm Gastrointestinal: soft, non-tender,g tube dressing intact,rectal tube in placed Musculoskeletal: nl extremities to inspection Results/Medications Result Diagram: 07/06/16 0405 07/06/16 0405 Results 24 hrs Laboratory Tests Test 07/05/16 19:40 07/05/16 20:21 07/06/16 00:37 07/06/16 04:05 Hemoglobin 7.8 L 8.0 L Hematocrit 25.1 L 25.8 L Bedside Glucose 136 115 White Blood Count 6.0 Red Blood Count 2.79 L Mean Corpuscular Volume 92.5 Mean Corpuscular Hemoglobin 28.7 L Mean Corpuscular Hemoglobin Concent 31.0 L Red Cell Distribution Width 18.3 H Platelet Count 90 L Mean Platelet Volume 10.8 H Neutrophils % 70.7 Lymphocytes % 14.5 L Monocytes % 9.1 Eosinophils % 3.7 Basophils % 0.2 Nucleated Red Blood Cells % 0.5 H Neutrophils # 4.2 Lymphocytes # 0.9 Monocytes # 0.5 Eosinophils # 0.2 Basophils # 0.0 Nucleated Red Blood Cells # 0.0 Sodium Level 143 Potassium Level 4.4 Chloride Level 113 H Carbon Dioxide Level 26 Anion Gap 8 Blood Urea Nitrogen 23 H Creatinine 0.78 Glucose Level 123 Calcium Level 7.9 L Magnesium Level 2.1 Test 07/06/16 06:46 07/06/16 12:36 Bedside Glucose 116 184 Medications Current Medications Ondansetron HCl (Zofran Inj) 4 mg Q6H PRN IV NAUSEA AND/OR VOMITING; Start 06/09 at 04:30 Dutasteride (Avodart) 0.5 mg AM PO Last administered on 07/06/16 09:22; Admin Dose 0.5 MG; Start 06/09/16 at 09:00 Finasteride (Proscar) 5 mg AM PO Last administered on 07/05/16 08:29; Admin Dose 5 MG; Start 06/09/16 at 09:00 Levothyroxine Sodium (Synthroid) 50 mcg DAILY@06 PO Last administered on 06:45; Admin Dose 50 MCG; Start 06/09/16 at 06:00 IV Flush (NS 10 ml) 10 ml PRN PRN IV IV PROTOCOL; Start 06/09/16 at 17:00 Miscellaneous Information 1 ea NOTE XX ; Start 06/11/16 at 08:30 Rifaximin (Xifaxan) 550 mg BID PO Last administered on 07/06/16 09:24; Admin Dose 550 MG; Start 06/11/16 at 14:30 Eye Lubricant (Artificial Tears Oph) 2 drop QID BOTH EYES Last administered on 07/06/16 12:39; Admin Dose 2 DROP; Start 06/12/16 at 13:00 Hydralazine HCl (Apresoline) 10 mg Q2H PRN IV SBP>170; Start 06/12/16 at 17:00 Acetaminophen (Tylenol Liquid) 650 mg Q4H PRN NGT PAIN AND OR ELEVATED TEMP Last administered on 07/05/16 00:05; Admin Dose 650 MG; Start 06/17/16 at 12:30 Lactulose (Enulose) 30 gm QID PO Last administered on 07/06/16 12:38; Admin Dose 30 GM; Start 06/24/16 at 21:30 Febuxostat (Uloric) 40 mg DAILY PO Last administered on 07/06/16 09:22; Admin Dose 40 MG; Start 06/25/16 at 15:00 Colchicine (Colchicine) 0.6 mg TID PRN PO gout pain Last administered on 22:45; Admin Dose 0.6 MG; Start 06/25/16 at 21:00 Lorazepam (Ativan) 1 mg Q6H PRN IV ANXIETY Last administered on 07/01/16 05:27 ; Admin Dose 1 MG; Start 06/25/16 at 18:30 Prednisone (Prednisone) 40 mg DAILY GTB Last administered on 07/06/16 09:23; Admin Dose 40 MG; Start 06/27/16 at 14:30 Metoprolol Tartrate (Lopressor) 5 mg Q4H PRN IV HR>110 Last administered on 15:37; Admin Dose 5 MG; Start 06/28/16 at 16:00 Amiodarone HCl 200 mg 200 mg BID NGT Last administered on 07/06/16 09:23; Admin Dose 200 MG; Start 06/28/16 at 21:00 Potassium Chloride/Dextrose (D5W + KCl 20 Meq) 1,000 ml @ 50 mls/hr Q20H IV Last administered on 07/06/16 06:44; Admin Dose 50 MLS/HR; Start 07/02/16 at 20 :00 IV Flush 10 ml 10 ml PRN PRN IV IV PROTOCOL; Start 07/02/16 at 19:30 Pantoprazole/ Sodium Chloride (Protonix Iv/NS) 100 ml @ 10 mls/hr Q10H IV Last administered on 07/06/16 06:44; Admin Dose 10 MLS/HR; Start 07/03/16 at 12 :00 Tamsulosin HCl 0.4 mg 0.4 mg HS PO Last administered on 07/05/16 20:24; Admin Dose 0.4 MG; Start 07/03/16 at 21:00 Dopamine HCl/ Dextrose 250 ml @ 7.35 mls/hr TITRATE IV Last administered on 09:27; Admin Dose 36.75 MLS/HR; Start 07/04/16 at 10:30 Insulin Aspart (Novolog Insulin Pen) NOVOLOG *MILD* ALGORI... Q6 SC Last administered on 07/06/16 12:47; Admin Dose 2 UNIT; Start 07/05/16 at 20:00 Miscellaneous Information 1 ea NOTE XX ; Start 07/05/16 at 20:00 Glucose (Glutose) 15 gm Q15M PRN PO DECREASED GLUCOSE; Start 07/05/16 at 20:00 Glucose (Glutose) 22.5 gm Q15M PRN PO DECREASED GLUCOSE; Start 07/05/16 at 20: 00 Dextrose (D50w Syringe) 25 ml Q15M PRN IV DECREASED GLUCOSE; Start 07/05/16 at 20:00 Dextrose (D50w Syringe) 50 ml Q15M PRN IV DECREASED GLUCOSE; Start 07/05/16 at 20:00 Glucagon (Glucagen) 1 mg Q15M PRN IM DECREASED GLUCOSE; Start 07/05/16 at 20:00 Glucose (Glutose) 15 gm Q15M PRN BUCCAL DECREASED GLUCOSE; Start 07/05/16 at 20 :00 Morphine Sulfate (morphine) 4 mg Q4H PRN IV PAIN Last administered on 10:42; Admin Dose 4 MG; Start 07/05/16 at 22:00 Metoprolol Tartrate (Lopressor) 25 mg BID PO ; Start 07/06/16 at 09:00 Assessment/Plan Additional Assessment/Plan Esophageal variceal bleeding/post EVL * Anemia secondary to above hemoglobin 8.1 * Alcoholic cirrhosis * Post variceal bleeding/post EVL * Portal encephalopathy * Ascites/Neg U/S * Coagulopathy * Unsafe swallowing/failed swallow eval/high risk for aspiration * Post uneventful PEG/Tolerating feedings EGD with PEG placement 06/28/16 Esophageal ulcers with some old clots in the area, but no active bleeding. . Nasogastric tube trauma present. Uneventful percutaneous endoscopic gastrostomy tube placement with placement of Filip[place] 20 gastrostomy tube. VRE Shock likely due to sepsis Plan : continue pressor management continue g tube feeding monitor H and H Q6 transfuse per protocol monitor for signs and symptoms of bleeding Discontinue octreotide ip JAC DAVIS MD Jul 06, 2016 13:43
--- NOTE | 2016-07-06 13:45 | PN ---
DATE: 07/06/2016 SUBJECTIVE: Patient remains clinically unchanged, still on dopamine with increase to 7 mcg/kg per m inute. He is in no distress, pleasantly confused. VITAL SIGNS: Temperature 98, pulse 87, respirations 16, blood pressure 92/50, saturation 98% on elijah m air. WBC 6, H and H 8 and 25.8, platelets 90, neutrophils 70.7, BUN 23, creatinine 0.78. MICROBIOLOGY: Blood cultures sent yesterday remain negative. Urine culture on 07/01/2016 grew Cand chris albicans. ANTIMICROBIALS: The patient is on Cancidas. INDWELLINGS: PEG, [place], PICC line, rectal tube. PHYSICAL EXAMINATION: GENERAL: This is a chronically ill-appearing, fragile, elderly man who is in no distress. HEENT: Head atraumatic, normocephalic. Sclerae anicteric. Buccal mucosa dry. NECK: Supple, trachea midline. CHEST: Rise symmetrical. Breath sounds diminished to bases. HEART: S1, S2. ABDOMEN: Soft. Bowel tones hypoactive. EXTREMITIES: With trace edema. ASSESSMENT: 1. Shock, likely multifactorial, possibly secondary to acute anemia and gastrointestinal bleed. 2. Urinary tract infection. 3. Hepatic encephalopathy. 4. Alcoholic cirrhosis. 5. Paroxysmal atrial fibrillation. 6. Dysphagia, status post percutaneous endoscopic gastrostomy. PLAN: The patient remains hemodynamically unstable. Again, blood cultures have been negative. The patient completed 7 days antibiotics. He does not have radiographic evidence of pneumonia. He is being seen by gastroenterology, cardiology and hematology teams. We will continue him on Cancidas. Continue anti-aspiration measures. Above was discussed with son at bedside. Dictated By: STACIE TAMEZ ERECTING CRANE OPERATOR for [employer] TORRES/RICK Conf#: [id number] DID#: [id number]
[2016-07-06] MEDS: TAMSULOSIN (SR) 0.4 MG CAP PO SCH (20:30)
[2016-07-06] MEDS ORDERED: DOPamine-D5W 1.6 MG/ML 250 ML IV SCH (22:00)
--- NOTE | 2016-07-06 22:17 | CONS ---
Date/Time of Note Date/Time of Note DATE: 07/06/16 TIME: 22:17 Assessment/Plan Assessment/Plan Chief Complaint/Hosp Course Anemia - COMPLEX, MULTIFACTORIAL WITH COMPONENT ACD, ACUTE BLOOD LOSS AND SEVERE IRON DEFICIENCY IN THE PAST * Esophageal variceal bleeding/post EVL * CONT TO MONITOR BLOOD COUNT CLOSELY * OBSERVE FOR BLEEDING AND HEMOLYSIS * PRBC NEEDED, INCL TODAY * DROP H/H POST GT * OBSERVE FOR BLEEDING * POST EGD * GI F-UP * continue PPI and octreotide drips, monitor H and H, transfuse to keep hemoglobin equal or higher than 7.5, correct coagulopathy if necessary. Septicemia with bandemia and fever. Acute gout. Alcoholic cirrhosis * Post variceal bleeding/post EVL * Portal encephalopathy * Ascites * Unsafe swallowing/failed swallow eval/high risk for aspiration * POST EGD plus PEG. * POST paracenteses prior to procedure. Coagulopathy POST VIT K POST FFP FMF FEVER IMPROVED ON ATB AND COLCHICINE Problems: Consultation Date/Type/Reason Admit Date/Time Jun 09, 2016 at 04:01 Initial Consult Date 06/09/16 [facility]erring Provider: MAURY BENITEZ MD 24 HR Interval Summary Free Text/Dictation No acute changes Patient continues to be on pressors via dopamine Tolerating PEG tube feeding No episodes of GI bleed Exam/Review of Systems Vital Signs Vitals Vital Signs Date Time Temp Pulse Resp B/P Pulse Ox O2 Delivery O2 Flow Rate FiO2 07/06/16 20:00 75 07/06/16 19:45 16 114/63 98 Room Air 07/06/16 16:00 97.4 07/04/16 18:30 21 07/03/16 15:00 2.0 Intake and Output 07/05/16 07/05/16 07/06/16 15:00 23:00 07:00 Intake Total 1337.9 ml 915.05 ml 1459.825 ml Output Total 590 ml 615 ml 1410 ml Balance 747.9 ml 300.05 ml 49.825 ml Exam General: The patient is well-developed, in moderate distress. HEENT: Atraumatic, normocephalic. The pupils are equal and round . Neck: Supple with full range of motion. Chest: Normal expansion of the thorax during inspiration Lungs: Clear to auscultation bilaterally Heart: Normal S1-S2, Regular rhythm and rate. Abdomen: Soft , upper abdominal tenderness, nondistended , bowel sounds are present. Extremities: Normal to inspection, no edema no cyanosis Neurologic: Normal mental status,The patient is awake, alert and oriented . Results Result Diagram: 07/06/16 0405 07/06/16 0405 Results 24 hrs Laboratory Tests Test 07/06/16 00:37 07/06/16 04:05 07/06/16 06:46 07/06/16 12:36 Bedside Glucose 115 116 184 White Blood Count 6.0 Red Blood Count 2.79 L Hemoglobin 8.0 L Hematocrit 25.8 L Mean Corpuscular Volume 92.5 Mean Corpuscular Hemoglobin 28.7 L Mean Corpuscular Hemoglobin Concent 31.0 L Red Cell Distribution Width 18.3 H Platelet Count 90 L Mean Platelet Volume 10.8 H Neutrophils % 70.7 Lymphocytes % 14.5 L Monocytes % 9.1 Eosinophils % 3.7 Basophils % 0.2 Nucleated Red Blood Cells % 0.5 H Neutrophils # 4.2 Lymphocytes # 0.9 Monocytes # 0.5 Eosinophils # 0.2 Basophils # 0.0 Nucleated Red Blood Cells # 0.0 Sodium Level 143 Potassium Level 4.4 Chloride Level 113 H Carbon Dioxide Level 26 Anion Gap 8 Blood Urea Nitrogen 23 H Creatinine 0.78 Glucose Level 123 Calcium Level 7.9 L Magnesium Level 2.1 Medications Medications Current Medications Ondansetron HCl (Zofran Inj) 4 mg Q6H PRN IV NAUSEA AND/OR VOMITING; Start 06/09 at 04:30 Dutasteride (Avodart) 0.5 mg AM PO Last administered on 07/06/16 09:22; Admin Dose 0.5 MG; Start 06/09/16 at 09:00 Finasteride (Proscar) 5 mg AM PO Last administered on 07/05/16 08:29; Admin Dose 5 MG; Start 06/09/16 at 09:00 Levothyroxine Sodium (Synthroid) 50 mcg DAILY@06 PO Last administered on 06:45; Admin Dose 50 MCG; Start 06/09/16 at 06:00 Rifaximin (Xifaxan) 550 mg BID PO Last administered on 07/06/16 20:31; Admin Dose 550 MG; Start 06/11/16 at 14:30 Eye Lubricant (Artificial Tears Oph) 2 drop QID BOTH EYES Last administered on 07/06/16 20:30; Admin Dose 2 DROP; Start 06/12/16 at 13:00 Hydralazine HCl (Apresoline) 10 mg Q2H PRN IV SBP>170; Start 06/12/16 at 17:00 Acetaminophen (Tylenol Liquid) 650 mg Q4H PRN NGT PAIN AND OR ELEVATED TEMP Last administered on 07/05/16 00:05; Admin Dose 650 MG; Start 06/17/16 at 12:30 Lactulose (Enulose) 30 gm QID PO Last administered on 07/06/16 20:34; Admin Dose 30 GM; Start 06/24/16 at 21:30 Febuxostat (Uloric) 40 mg DAILY PO Last administered on 07/06/16 09:22; Admin Dose 40 MG; Start 06/25/16 at 15:00 Colchicine (Colchicine) 0.6 mg TID PRN PO gout pain Last administered on 22:45; Admin Dose 0.6 MG; Start 06/25/16 at 21:00 Lorazepam (Ativan) 1 mg Q6H PRN IV ANXIETY Last administered on 07/01/16 05:27 ; Admin Dose 1 MG; Start 06/25/16 at 18:30 Prednisone (Prednisone) 40 mg DAILY GTB Last administered on 07/06/16 09:23; Admin Dose 40 MG; Start 06/27/16 at 14:30 Metoprolol Tartrate (Lopressor) 5 mg Q4H PRN IV HR>110 Last administered on 15:37; Admin Dose 5 MG; Start 06/28/16 at 16:00 Amiodarone HCl 200 mg 200 mg BID NGT Last administered on 07/06/16 20:30; Admin Dose 200 MG; Start 06/28/16 at 21:00 Potassium Chloride/Dextrose (D5W + KCl 20 Meq) 1,000 ml @ 50 mls/hr Q20H IV Last administered on 07/06/16 06:44; Admin Dose 50 MLS/HR; Start 07/02/16 at 20 :00 IV Flush 10 ml 10 ml PRN PRN IV IV PROTOCOL; Start 07/02/16 at 19:30 Pantoprazole/ Sodium Chloride (Protonix Iv/NS) 100 ml @ 10 mls/hr Q10H IV Last administered on 07/06/16 15:32; Admin Dose 10 MLS/HR; Start 07/03/16 at 12 :00 Tamsulosin HCl (Flomax) 0.4 mg HS PO Last administered on 07/06/16 20:30; Admin Dose 0.4 MG; Start 07/03/16 at 21:00 Insulin Aspart (Novolog Insulin Pen) NOVOLOG *MILD* ALGORI... Q6 SC Last administered on 07/06/16 18:03; Admin Dose 1 UNIT; Start 07/05/16 at 20:00 Miscellaneous Information 1 ea NOTE XX ; Start 07/05/16 at 20:00 Glucose (Glutose) 15 gm Q15M PRN PO DECREASED GLUCOSE; Start 07/05/16 at 20:00 Glucose (Glutose) 22.5 gm Q15M PRN PO DECREASED GLUCOSE; Start 07/05/16 at 20: 00 Dextrose (D50w Syringe) 25 ml Q15M PRN IV DECREASED GLUCOSE; Start 07/05/16 at 20:00 Dextrose (D50w Syringe) 50 ml Q15M PRN IV DECREASED GLUCOSE; Start 07/05/16 at 20:00 Glucagon (Glucagen) 1 mg Q15M PRN IM DECREASED GLUCOSE; Start 07/05/16 at 20:00 Glucose (Glutose) 15 gm Q15M PRN BUCCAL DECREASED GLUCOSE; Start 07/05/16 at 20 :00 Morphine Sulfate (morphine) 4 mg Q4H PRN IV PAIN Last administered on 18:44; Admin Dose 4 MG; Start 07/05/16 at 22:00 Metoprolol Tartrate 25 mg 25 mg BID PO ; Start 07/06/16 at 09:00 Dopamine HCl/ Dextrose 250 ml @ 7.35 mls/hr TITRATE IV ; Start 07/06/16 at 22: 00 FAYE RUSHING MD Jul 06, 2016 22:17
[2016-07-07] VITALS (28 sets, daily range): BP systolic 81–124; BP diastolic 18–87; PULSE 58–102; RESP 12–22
[2016-07-07] MEDS: morphine 4 MG/ML VIAL IV PRN ×3 (00:25→08:46)
[2016-07-07] MEDS: PANTOPRAZOLE IV 80 MG in SOD CHLORIDE 0.9% 100 ML IV SCH ×4 (02:41→23:49)
[2016-07-07] MEDS: LORAZEPAM 2 MG INJ IV PRN (04:39)
[2016-07-07] MEDS: D5W + KCL 20 MEQ 1,000 ML IV SCH (05:22)
[2016-07-07 05:49] LABS: ADD SCAN DIFF NO
[2016-07-07] MEDS: INSULIN ASPART [NOVOLOG] 3 ML PEN SC SCH ×2 (05:51)
[2016-07-07] MEDS: LEVOTHYROXINE 50 MCG TAB PO SCH (05:51)
[2016-07-07 06:09] LABS: ABNORMAL IP MESSAGE 1; EOSINOPHILS # 0.1 10^3/ul (0.0-0.5); EOSINOPHILS % 1.3 % (0.0-7.0); HEMATOCRIT 24.4 % (42.0-52.0); HEMOGLOBIN 7.6 g/dl (14.0-18.0); LYMPHOCYTES # 0.7 10^3/ul (0.8-2.9); LYMPHOCYTES % 13.6 % (15.0-51.0); MEAN CORPUSCULAR HGB CONC 31.1 g/dl (32.0-37.0); MEAN CORPUSCULAR VOLUME 93.1 fl (82.0-101.0); MEAN PLATELET VOLUME 10.9 fl (7.4-10.4); MONOCYTE # 0.4 10^3/ul (0.3-0.9); MONOCYTES % 7.7 % (0.0-11.0); NEUTROPHIL # 3.9 10^3/ul (1.6-7.5); NEUTROPHILS % 74.2 % (39.0-77.0); NUCLEATED RED BLOOD CELLS% 0.4 /100WBC (0.0-0.0); PLATELET COUNT 66 10^3/UL (140-415); RED BLOOD COUNT 2.62 10^6/ul (4.70-6.10); RED CELL DISTRIBUTION WIDTH 18.2 % (11.5-14.5); WHITE BLOOD COUNT 5.3 10^3/ul (4.8-10.8)
[2016-07-07 06:34] LABS: CREATININE 0.68 mg/dl (0.61-1.24)
[2016-07-07 06:35] LABS: CALCIUM 7.7 mg/dl (8.4-10.2); POTASSIUM 3.7 mmol/L (3.5-5.1)
[2016-07-07] MEDS: AMIODARONE 200 MG TAB NGT SCH ×2 (08:48→20:41)
[2016-07-07] MEDS: LACTULOSE 30ML CUP PO SCH ×4 (08:48→20:57)
[2016-07-07] MEDS: predniSONE 20 MG TAB GTB SCH (08:48)
[2016-07-07] MEDS: RIFAXIMIN 550 MG TAB PO SCH ×2 (08:48→20:41)
[2016-07-07] MEDS: DUTASTERIDE 0.5 MG CAP PO SCH (08:48)
[2016-07-07] MEDS: FEBUXOSTAT 40 MG TABLET PO SCH (08:48)
[2016-07-07] MEDS: ARTIFICIAL TEARS 15 ML OPH BOTH EYES SCH ×4 (08:49→20:42)
[2016-07-07] MEDS: METOPROLOL 25 MG TAB PO SCH ×2 (08:49→20:57)
[2016-07-07] MEDS: FINASTERIDE 5 MG TAB PO SCH (08:50)
--- NOTE | 2016-07-07 10:27 | PN ---
Date/Time of Note Date/Time of Note DATE: 07/07/16 TIME: 10:21 Assessment/Plan VTE Prophylaxis VTE Prophylaxis Intervention: SCD's Lines/Catheters IV Catheter Type (from Nrsg): PICC Line Central line still needed: Yes (IV abx ) Urinary Cath still in place: Yes Reason Cath still needed: other (indicate) (critically ill ) Assessment/Plan Assessment/Plan 1. Esophageal variceal bleeding/post EVL, follow up with GI, continue PPI, continue octreotide, repeat endoscopy demonstrated multiple esophageal ulcer 3. Paroxysmal atrial fibrillation/atrial flutter, now back in sinus rhythm and remains thus - now in sinus - better rate controlled now. 4. REC NSVT - add BB as toleated - BEA stable now - no new episodes now - no ectopy noted today. 5. Resolving sepsis, on multiple antibiotics, follow up with ID 6. Encephalopathy-likely secondary to history of cirrhosis and alcohol abuse, improving 7. Anemia, , status post transfusions- H/H stable. Continue to monitor, transfuse as per protocol 8. Hypernatremia. follow up with electrolytes, start free water via G-tube 9. Coagulopathy, likely secondary to his history of cirrhosis and alcohol abuse 10. PEG, G-tube feeding Hb 7.6, as per H& O- will plan for tranfusion if Hb drops lower than 7.5 GI following Ok to have Ice chips BP stable has been off dopamine since 2 am- will monitor BP before sending him to floor Subjective 24 Hr Interval Summary Free Text/Dictation pt BP remains low side, HR in 100-110s,pt is agitated, Hb 7.6 Exam/Review of Systems Vital Signs Vitals Vital Signs Date Time Temp Pulse Resp B/P Pulse Ox O2 Delivery O2 Flow Rate FiO2 07/07/16 06:00 91 12 91/63 95 Room Air 07/07/16 04:00 97.6 07/06/16 23:42 21 07/03/16 15:00 2.0 Intake and Output 07/06/16 07/06/16 07/07/16 15:00 23:00 07:00 Intake Total 1373.413 ml 1147.167 ml 963.66 ml Output Total 505 ml 607 ml 905 ml Balance 868.413 ml 540.167 ml 58.66 ml Exam HEENT: Head atraumatic, normocephalic. Sclerae anicteric. Buccal mucosa dry. NECK: Supple. CHEST: Rise symmetrical. Breath sounds diminished to bases. HEART: S1, S2. ABDOMEN: Distended, soft. Bowel tones hypoactive. EXTREMITIES: Without cyanosis. Trace edema. SKIN: No rashes. Results Result Diagram: 07/07/16 0500 07/07/16 0500 Results 24 hrs Laboratory Tests Test 07/06/16 12:36 07/07/16 00:32 07/07/16 05:00 07/07/16 05:50 Bedside Glucose 184 94 138 White Blood Count 5.3 Red Blood Count 2.62 L Hemoglobin 7.6 L Hematocrit 24.4 L Mean Corpuscular Volume 93.1 Mean Corpuscular Hemoglobin 29.0 Mean Corpuscular Hemoglobin Concent 31.1 L Red Cell Distribution Width 18.2 H Platelet Count 66 #L Mean Platelet Volume 10.9 H Neutrophils % 74.2 Lymphocytes % 13.6 L Monocytes % 7.7 Eosinophils % 1.3 Basophils % 0.0 Nucleated Red Blood Cells % 0.4 H Neutrophils # 3.9 Lymphocytes # 0.7 L Monocytes # 0.4 Eosinophils # 0.1 Basophils # 0.0 Nucleated Red Blood Cells # 0.0 Sodium Level 147 H Potassium Level 3.7 Chloride Level 116 H Carbon Dioxide Level 24 Anion Gap 11 Blood Urea Nitrogen 19 Creatinine 0.68 Glucose Level 132 Calcium Level 7.7 L Medications Medications Current Medications Ondansetron HCl (Zofran Inj) 4 mg Q6H PRN IV NAUSEA AND/OR VOMITING; Start 06/09 at 04:30 Dutasteride (Avodart) 0.5 mg AM PO Last administered on 07/07/16 08:48; Admin Dose 0.5 MG; Start 06/09/16 at 09:00 Finasteride (Proscar) 5 mg AM PO Last administered on 07/05/16 08:29; Admin Dose 5 MG; Start 06/09/16 at 09:00 Levothyroxine Sodium (Synthroid) 50 mcg DAILY@06 PO Last administered on 05:51; Admin Dose 50 MCG; Start 06/09/16 at 06:00 Rifaximin (Xifaxan) 550 mg BID PO Last administered on 07/07/16 08:48; Admin Dose 550 MG; Start 06/11/16 at 14:30 Eye Lubricant (Artificial Tears Oph) 2 drop QID BOTH EYES Last administered on 07/07/16 08:49; Admin Dose 2 DROP; Start 06/12/16 at 13:00 Hydralazine HCl (Apresoline) 10 mg Q2H PRN IV SBP>170; Start 06/12/16 at 17:00 Acetaminophen (Tylenol Liquid) 650 mg Q4H PRN NGT PAIN AND OR ELEVATED TEMP Last administered on 07/05/16 00:05; Admin Dose 650 MG; Start 06/17/16 at 12:30 Lactulose (Enulose) 30 gm QID PO Last administered on 07/07/16 08:48; Admin Dose 30 GM; Start 06/24/16 at 21:30 Febuxostat (Uloric) 40 mg DAILY PO Last administered on 07/07/16 08:48; Admin Dose 40 MG; Start 06/25/16 at 15:00 Colchicine (Colchicine) 0.6 mg TID PRN PO gout pain Last administered on 22:45; Admin Dose 0.6 MG; Start 06/25/16 at 21:00 Lorazepam (Ativan) 1 mg Q6H PRN IV ANXIETY Last administered on 07/07/16 04:39 ; Admin Dose 1 MG; Start 06/25/16 at 18:30 Prednisone (Prednisone) 40 mg DAILY GTB Last administered on 07/07/16 08:48; Admin Dose 40 MG; Start 06/27/16 at 14:30 Metoprolol Tartrate (Lopressor) 5 mg Q4H PRN IV HR>110 Last administered on 15:37; Admin Dose 5 MG; Start 06/28/16 at 16:00 Amiodarone HCl 200 mg 200 mg BID NGT Last administered on 07/07/16 08:48; Admin Dose 200 MG; Start 06/28/16 at 21:00 Potassium Chloride/Dextrose (D5W + KCl 20 Meq) 1,000 ml @ 50 mls/hr Q20H IV Last administered on 07/07/16 05:22; Admin Dose 50 MLS/HR; Start 07/02/16 at 20 :00 IV Flush 10 ml 10 ml PRN PRN IV IV PROTOCOL; Start 07/02/16 at 19:30 Pantoprazole/ Sodium Chloride (Protonix Iv/NS) 100 ml @ 10 mls/hr Q10H IV Last administered on 07/07/16 02:41; Admin Dose 10 MLS/HR; Start 07/03/16 at 12 :00 Tamsulosin HCl (Flomax) 0.4 mg HS PO Last administered on 07/06/16 20:30; Admin Dose 0.4 MG; Start 07/03/16 at 21:00 Miscellaneous Information 1 ea NOTE XX ; Start 07/05/16 at 20:00 Glucose (Glutose) 15 gm Q15M PRN PO DECREASED GLUCOSE; Start 07/05/16 at 20:00 Glucose (Glutose) 22.5 gm Q15M PRN PO DECREASED GLUCOSE; Start 07/05/16 at 20: 00 Dextrose (D50w Syringe) 25 ml Q15M PRN IV DECREASED GLUCOSE; Start 07/05/16 at 20:00 Dextrose (D50w Syringe) 50 ml Q15M PRN IV DECREASED GLUCOSE; Start 07/05/16 at 20:00 Glucagon (Glucagen) 1 mg Q15M PRN IM DECREASED GLUCOSE; Start 07/05/16 at 20:00 Glucose (Glutose) 15 gm Q15M PRN BUCCAL DECREASED GLUCOSE; Start 07/05/16 at 20 :00 Morphine Sulfate (morphine) 4 mg Q4H PRN IV PAIN Last administered on 08:46; Admin Dose 4 MG; Start 07/05/16 at 22:00 Metoprolol Tartrate 25 mg 25 mg BID PO ; Start 07/06/16 at 09:00 Dopamine HCl/ Dextrose 250 ml @ 7.35 mls/hr TITRATE IV ; Start 07/06/16 at 22: 00 MAURY BENITEZ MD Jul 07, 2016 10:27
--- NOTE | 2016-07-07 11:38 | PN ---
Date/Time of Note Date/Time of Note DATE: 07/07/16 TIME: 11:34 Assessment/Plan VTE Prophylaxis VTE Prophylaxis Intervention: SCD's Lines/Catheters [facility] Type (from [facility]): PICC Line Central line still needed: Yes Urinary Cath still in place: Yes Reason Cath still needed: urinary retention Assessment/Plan Assessment/Plan Additional Assessment/Plan Esophageal variceal bleeding/post EVL * Anemia secondary to above hemoglobin 7.6 * Alcoholic cirrhosis * Post variceal bleeding/post EVL * Portal encephalopathy * Ascites/Neg U/S * Coagulopathy * Unsafe swallowing/failed swallow eval/high risk for aspiration * Post uneventful PEG/Tolerating feedings EGD with PEG placement 06/28/16 Esophageal ulcers with some old clots in the area, but no active bleeding. . Nasogastric tube trauma present. Uneventful percutaneous endoscopic gastrostomy tube placement with placement of Greek 20 gastrostomy tube. EGD 07/02/2016 Multiple esophageal ulcers. Post-endoscopic variceal ligation with no active bleeding but positive stigmata of recent bleeding. . Gastrostomy tube in place and in good condition. . No other bleeding site or potential bleeding site identified. VRE Shock likely due to sepsis Plan : continue g tube feeding monitor H and H Q6 transfuse per protocol monitor for signs and symptoms of bleeding Subjective 24 Hr Interval Summary Free Text/Dictation course reviewed with nurse * patient seen and examined * no evidenced of any hematemesis/hematochezia * off pressors * latest hemoglobin 7.6 * tolerating tube feeding Exam/Review of Systems Vital Signs Vitals Vital Signs Date Time Temp Pulse Resp B/P Pulse Ox O2 Delivery O2 Flow Rate FiO2 07/07/16 11:00 97 22 124/87 94 Room Air 07/07/16 08:00 97.7 07/06/16 23:42 21 07/03/16 15:00 2.0 Intake and Output 07/06/16 07/06/16 07/07/16 15:00 23:00 07:00 Intake Total 1373.413 ml 1147.167 ml 1073.66 ml Output Total 505 ml 607 ml 935 ml Balance 868.413 ml 540.167 ml 138.66 ml Exam Constitutional: alert, forgetful well developed Psych: nl mood/affect Respiratory: clear to auscultation, normal air movement Cardiovascular: regular rate and rhythm Gastrointestinal: soft, non-tender,g tube dressing intact,rectal tube in placed Musculoskeletal: nl extremities to inspection Results Result Diagram: 07/07/16 0500 07/07/16 0500 Results 24 hrs Laboratory Tests Test 07/06/16 12:36 07/07/16 00:32 07/07/16 05:00 07/07/16 05:50 Bedside Glucose 184 94 138 White Blood Count 5.3 Red Blood Count 2.62 L Hemoglobin 7.6 L Hematocrit 24.4 L Mean Corpuscular Volume 93.1 Mean Corpuscular Hemoglobin 29.0 Mean Corpuscular Hemoglobin Concent 31.1 L Red Cell Distribution Width 18.2 H Platelet Count 66 #L Mean Platelet Volume 10.9 H Neutrophils % 74.2 Lymphocytes % 13.6 L Monocytes % 7.7 Eosinophils % 1.3 Basophils % 0.0 Nucleated Red Blood Cells % 0.4 H Neutrophils # 3.9 Lymphocytes # 0.7 L Monocytes # 0.4 Eosinophils # 0.1 Basophils # 0.0 Nucleated Red Blood Cells # 0.0 Sodium Level 147 H Potassium Level 3.7 Chloride Level 116 H Carbon Dioxide Level 24 Anion Gap 11 Blood Urea Nitrogen 19 Creatinine 0.68 Glucose Level 132 Calcium Level 7.7 L Medications Medications Current Medications Ondansetron HCl (Zofran Inj) 4 mg Q6H PRN IV NAUSEA AND/OR VOMITING; Start 06/09 at 04:30 Dutasteride (Avodart) 0.5 mg AM PO Last administered on 07/07/16 08:48; Admin Dose 0.5 MG; Start 06/09/16 at 09:00 Finasteride (Proscar) 5 mg AM PO Last administered on 07/05/16 08:29; Admin Dose 5 MG; Start 06/09/16 at 09:00 Levothyroxine Sodium (Synthroid) 50 mcg DAILY@06 PO Last administered on 05:51; Admin Dose 50 MCG; Start 06/09/16 at 06:00 Rifaximin (Xifaxan) 550 mg BID PO Last administered on 07/07/16 08:48; Admin Dose 550 MG; Start 06/11/16 at 14:30 Eye Lubricant (Artificial Tears Oph) 2 drop QID BOTH EYES Last administered on 07/07/16 08:49; Admin Dose 2 DROP; Start 06/12/16 at 13:00 Hydralazine HCl (Apresoline) 10 mg Q2H PRN IV SBP>170; Start 06/12/16 at 17:00 Acetaminophen (Tylenol Liquid) 650 mg Q4H PRN NGT PAIN AND OR ELEVATED TEMP Last administered on 07/05/16 00:05; Admin Dose 650 MG; Start 06/17/16 at 12:30 Lactulose (Enulose) 30 gm QID PO Last administered on 07/07/16 08:48; Admin Dose 30 GM; Start 06/24/16 at 21:30 Febuxostat (Uloric) 40 mg DAILY PO Last administered on 07/07/16 08:48; Admin Dose 40 MG; Start 06/25/16 at 15:00 Colchicine (Colchicine) 0.6 mg TID PRN PO gout pain Last administered on 22:45; Admin Dose 0.6 MG; Start 06/25/16 at 21:00 Lorazepam (Ativan) 1 mg Q6H PRN IV ANXIETY Last administered on 07/07/16 04:39 ; Admin Dose 1 MG; Start 06/25/16 at 18:30 Prednisone (Prednisone) 40 mg DAILY GTB Last administered on 07/07/16 08:48; Admin Dose 40 MG; Start 06/27/16 at 14:30 Metoprolol Tartrate (Lopressor) 5 mg Q4H PRN IV HR>110 Last administered on 15:37; Admin Dose 5 MG; Start 06/28/16 at 16:00 Amiodarone HCl 200 mg 200 mg BID NGT Last administered on 07/07/16 08:48; Admin Dose 200 MG; Start 06/28/16 at 21:00 Potassium Chloride/Dextrose (D5W + KCl 20 Meq) 1,000 ml @ 50 mls/hr Q20H IV Last administered on 07/07/16 05:22; Admin Dose 50 MLS/HR; Start 07/02/16 at 20 :00 IV Flush 10 ml 10 ml PRN PRN IV IV PROTOCOL; Start 07/02/16 at 19:30 Pantoprazole/ Sodium Chloride (Protonix Iv/NS) 100 ml @ 10 mls/hr Q10H IV Last administered on 07/07/16 02:41; Admin Dose 10 MLS/HR; Start 07/03/16 at 12 :00 Tamsulosin HCl (Flomax) 0.4 mg HS PO Last administered on 07/06/16 20:30; Admin Dose 0.4 MG; Start 07/03/16 at 21:00 Miscellaneous Information 1 ea NOTE XX ; Start 07/05/16 at 20:00 Glucose (Glutose) 15 gm Q15M PRN PO DECREASED GLUCOSE; Start 07/05/16 at 20:00 Glucose (Glutose) 22.5 gm Q15M PRN PO DECREASED GLUCOSE; Start 07/05/16 at 20: 00 Dextrose (D50w Syringe) 25 ml Q15M PRN IV DECREASED GLUCOSE; Start 07/05/16 at 20:00 Dextrose (D50w Syringe) 50 ml Q15M PRN IV DECREASED GLUCOSE; Start 07/05/16 at 20:00 Glucagon (Glucagen) 1 mg Q15M PRN IM DECREASED GLUCOSE; Start 07/05/16 at 20:00 Glucose (Glutose) 15 gm Q15M PRN BUCCAL DECREASED GLUCOSE; Start 07/05/16 at 20 :00 Morphine Sulfate (morphine) 4 mg Q4H PRN IV PAIN Last administered on 08:46; Admin Dose 4 MG; Start 07/05/16 at 22:00 Metoprolol Tartrate 25 mg 25 mg BID PO ; Start 07/06/16 at 09:00 Dopamine HCl/ Dextrose 250 ml @ 7.35 mls/hr TITRATE IV ; Start 07/06/16 at 22: 00 JAC DAVIS MD Jul 07, 2016 11:38
--- NOTE | 2016-07-07 12:33 | PN ---
DATE: 07/07/2016 SUBJECTIVE: Patient is sleeping, off pressors, looks comfortable, no fevers. VITAL SIGNS: Temperature 97.7, pulse 97, respirations 22, blood pressure 124/87, saturation 94 on r oom air. WBC 5.3, H and H 7.6 and 24.4, platelets 66, neutrophils 74.2, no bands. BUN 19, creatinine 0.68. INDWELLINGS: PEG, [place], PICC line. ANTIMICROBIALS: The patient is on Cancidas. PHYSICAL EXAMINATION: GENERAL: This is a fragile, chronically ill-appearing, elderly man who is in no distress. HEENT: Head atraumatic, normocephalic. Sclerae anicteric. Buccal mucosa dry. NECK: Supple, trachea midline. CHEST: Rise symmetrical. Breath sounds diminished to bases. HEART: S1, S2. ABDOMEN: Soft. Bowel tones present. EXTREMITIES: With trace edema. ASSESSMENT: 1. Shock, likely hypovolemic, so far all blood cultures have been negative. 2. Dorina albicans urinary tract infection. 3. Alcoholic liver cirrhosis. 4. Anemia with thrombocytopenia. 5. Gastrointestinal bleeding, status post esophageal varices banding. 6. Paroxysmal atrial fibrillation. 7. Hepatic encephalopathy. PLAN: The patient remains stable. We will continue him on current regimen, continue anti-aspiratio n measures. Follow recommendations of consultants. Dictated By: STACIE TAMEZ [employer] PROFESSIONAL for [employer] Conf#: [id number] DID#: [id number]
--- NOTE | 2016-07-07 12:38 | CONS ---
Date/Time of Note Date/Time of Note DATE: 07/07/16 TIME: 12:35 Assessment/Plan Assessment/Plan Chief Complaint/Hosp Course IMPRESSION: 1. Paroxysmal atrial fibrillation/atrial flutter-now SR on PO amio 2. Abnormal electrocardiogram. Assess for acute coronary syndrome. 3. Hypotension, now improved.-tolerating low dose BB 4. Gastrointestinal bleed.-s/p EGD with esophageal ulcers/varices s/p banding with ongoing GIB at this time 5. Cirrhosiss/p banding of varices 6. Encephalopathy-ongoing 7. Anemia-worsening 8. Hypernatremia 9. Coagulopathy 10.Fever 11.PNA 12.ARF-improved 14.Hypotension-improved off pressors Recc: -Tele -Continue amiodarone PO as patient able to take -Resume BB as tolerated -No asa/systemic anti-coag secondary to anemia/GIB -Follow MS closely -Follow Hgb closely -F/U cx data and continue abx's -Continue protonix/lactulose Problems: Consultation Date/Type/Reason Admit Date/Time Jun 09, 2016 at 04:01 Initial Consult Date 06/09/16 Type of Consultation: Cardiology Reason for Consultation hypotension/PAF Referring Provider: MAURY BENITEZ MD Exam/Review of Systems Vital Signs Vitals Vital Signs Date Time Temp Pulse Resp B/P Pulse Ox O2 Delivery O2 Flow Rate FiO2 07/07/16 11:00 97 22 124/87 94 Room Air 07/07/16 08:00 97.7 07/06/16 23:42 21 07/03/16 15:00 2.0 Intake and Output 07/06/16 07/06/16 07/07/16 15:00 23:00 07:00 Intake Total 1373.413 ml 1147.167 ml 1073.66 ml Output Total 505 ml 607 ml 935 ml Balance 868.413 ml 540.167 ml 138.66 ml Exam Review of Systems: CONSTITUTIONAL: No fevers, chills. PULMONARY: No sob CARDIOVASCULAR: No chest pain/palpitations GASTROINTESTINAL: No nausea/vomiting. GENITOURINARY: No hematuria/dysuria. MUSCULOSKELETAL: No myagias/arthalgias. PSYCHIATRIC: The patient denies depression. NEUROLOGIC: lethargic Constitutional: alert Psych: no complaints Head: normocephalic ENMT: mucosa pink and moist Neck: jvd (9 cm water), supple Respiratory: diminished breath sounds (at bases/B) Cardiovascular: regular rate and rhythm Gastrointestinal: non-tender, soft Musculoskeletal: muscle tone (normal) Extremities: edema (none) Neurological: other (No focal deficits) Results Result Diagram: 07/07/16 0500 07/07/16 0500 Results 24 hrs Laboratory Tests Test 07/06/16 12:36 07/07/16 00:32 07/07/16 05:00 07/07/16 05:50 Bedside Glucose 184 94 138 White Blood Count 5.3 Red Blood Count 2.62 L Hemoglobin 7.6 L Hematocrit 24.4 L Mean Corpuscular Volume 93.1 Mean Corpuscular Hemoglobin 29.0 Mean Corpuscular Hemoglobin Concent 31.1 L Red Cell Distribution Width 18.2 H Platelet Count 66 #L Mean Platelet Volume 10.9 H Neutrophils % 74.2 Lymphocytes % 13.6 L Monocytes % 7.7 Eosinophils % 1.3 Basophils % 0.0 Nucleated Red Blood Cells % 0.4 H Neutrophils # 3.9 Lymphocytes # 0.7 L Monocytes # 0.4 Eosinophils # 0.1 Basophils # 0.0 Nucleated Red Blood Cells # 0.0 Sodium Level 147 H Potassium Level 3.7 Chloride Level 116 H Carbon Dioxide Level 24 Anion Gap 11 Blood Urea Nitrogen 19 Creatinine 0.68 Glucose Level 132 Calcium Level 7.7 L Medications Medications Current Medications Ondansetron HCl (Zofran Inj) 4 mg Q6H PRN IV NAUSEA AND/OR VOMITING; Start 06/09 at 04:30 Dutasteride (Avodart) 0.5 mg AM PO Last administered on 07/07/16 08:48; Admin Dose 0.5 MG; Start 06/09/16 at 09:00 Finasteride (Proscar) 5 mg AM PO Last administered on 07/05/16 08:29; Admin Dose 5 MG; Start 06/09/16 at 09:00 Levothyroxine Sodium (Synthroid) 50 mcg DAILY@06 PO Last administered on 05:51; Admin Dose 50 MCG; Start 06/09/16 at 06:00 Rifaximin (Xifaxan) 550 mg BID PO Last administered on 07/07/16 08:48; Admin Dose 550 MG; Start 06/11/16 at 14:30 Eye Lubricant (Artificial Tears Oph) 2 drop QID BOTH EYES Last administered on 07/07/16 08:49; Admin Dose 2 DROP; Start 06/12/16 at 13:00 Hydralazine HCl (Apresoline) 10 mg Q2H PRN IV SBP>170; Start 06/12/16 at 17:00 Acetaminophen (Tylenol Liquid) 650 mg Q4H PRN NGT PAIN AND OR ELEVATED TEMP Last administered on 07/05/16 00:05; Admin Dose 650 MG; Start 06/17/16 at 12:30 Lactulose (Enulose) 30 gm QID PO Last administered on 07/07/16 08:48; Admin Dose 30 GM; Start 06/24/16 at 21:30 Febuxostat (Uloric) 40 mg DAILY PO Last administered on 07/07/16 08:48; Admin Dose 40 MG; Start 06/25/16 at 15:00 Colchicine (Colchicine) 0.6 mg TID PRN PO gout pain Last administered on 22:45; Admin Dose 0.6 MG; Start 06/25/16 at 21:00 Lorazepam (Ativan) 1 mg Q6H PRN IV ANXIETY Last administered on 07/07/16 04:39 ; Admin Dose 1 MG; Start 06/25/16 at 18:30 Prednisone (Prednisone) 40 mg DAILY GTB Last administered on 07/07/16 08:48; Admin Dose 40 MG; Start 06/27/16 at 14:30 Metoprolol Tartrate (Lopressor) 5 mg Q4H PRN IV HR>110 Last administered on 15:37; Admin Dose 5 MG; Start 06/28/16 at 16:00 Amiodarone HCl 200 mg 200 mg BID NGT Last administered on 07/07/16 08:48; Admin Dose 200 MG; Start 06/28/16 at 21:00 Potassium Chloride/Dextrose (D5W + KCl 20 Meq) 1,000 ml @ 50 mls/hr Q20H IV Last administered on 07/07/16 05:22; Admin Dose 50 MLS/HR; Start 07/02/16 at 20 :00 IV Flush 10 ml 10 ml PRN PRN IV IV PROTOCOL; Start 07/02/16 at 19:30 Pantoprazole/ Sodium Chloride (Protonix Iv/NS) 100 ml @ 10 mls/hr Q10H IV Last administered on 07/07/16 02:41; Admin Dose 10 MLS/HR; Start 07/03/16 at 12 :00 Tamsulosin HCl (Flomax) 0.4 mg HS PO Last administered on 07/06/16 20:30; Admin Dose 0.4 MG; Start 07/03/16 at 21:00 Miscellaneous Information 1 ea NOTE XX ; Start 07/05/16 at 20:00 Glucose (Glutose) 15 gm Q15M PRN PO DECREASED GLUCOSE; Start 07/05/16 at 20:00 Glucose (Glutose) 22.5 gm Q15M PRN PO DECREASED GLUCOSE; Start 07/05/16 at 20: 00 Dextrose (D50w Syringe) 25 ml Q15M PRN IV DECREASED GLUCOSE; Start 07/05/16 at 20:00 Dextrose (D50w Syringe) 50 ml Q15M PRN IV DECREASED GLUCOSE; Start 07/05/16 at 20:00 Glucagon (Glucagen) 1 mg Q15M PRN IM DECREASED GLUCOSE; Start 07/05/16 at 20:00 Glucose (Glutose) 15 gm Q15M PRN BUCCAL DECREASED GLUCOSE; Start 07/05/16 at 20 :00 Morphine Sulfate (morphine) 4 mg Q4H PRN IV PAIN Last administered on 08:46; Admin Dose 4 MG; Start 07/05/16 at 22:00 Metoprolol Tartrate 25 mg 25 mg BID PO ; Start 07/06/16 at 09:00 Dopamine HCl/ Dextrose 250 ml @ 7.35 mls/hr TITRATE IV ; Start 07/06/16 at 22: 00 Caspofungin/ Sodium Chloride (Cancidas/NS) 250 ml @ 250 mls/hr Q24H IVPB ; Start 07/07/16 at 14:00 ANGELES ODONNELL Jul 07, 2016 12:38
[2016-07-07] MEDS: CASPOFUNGIN 50 MG in SOD CHLORIDE 0.9% 250 ML IVPB SCH (14:05)
[2016-07-07] MEDS: ACETAMINOPHEN 650MG/20.3ML CUP NGT PRN (19:02)
[2016-07-07] MEDS: TAMSULOSIN (SR) 0.4 MG CAP PO SCH (20:41)
--- NOTE | 2016-07-07 22:00 | CONS ---
Date/Time of Note Date/Time of Note DATE: 07/07/16 TIME: 21:59 Assessment/Plan Assessment/Plan Chief Complaint/Hosp Course Anemia - COMPLEX, MULTIFACTORIAL WITH COMPONENT ACD, ACUTE BLOOD LOSS AND SEVERE IRON DEFICIENCY IN THE PAST * Esophageal variceal bleeding/post EVL * CONT TO MONITOR BLOOD COUNT CLOSELY * OBSERVE FOR BLEEDING AND HEMOLYSIS * PRBC NEEDED * DROP H/H POST GT * OBSERVE FOR BLEEDING * POST EGD * GI F-UP * continue PPI and octreotide drips, monitor H and H, transfuse to keep hemoglobin equal or higher than 7.5, correct coagulopathy if necessary. Septicemia with bandemia and fever. Acute gout. Alcoholic cirrhosis * Post variceal bleeding/post EVL * Portal encephalopathy * Ascites * Unsafe swallowing/failed swallow eval/high risk for aspiration * POST EGD plus PEG. * POST paracenteses prior to procedure. Coagulopathy POST VIT K POST FFP FMF FEVER IMPROVED ON ATB AND COLCHICINE Problems: Consultation Date/Type/Reason Admit Date/Time Jun 09, 2016 at 04:01 Initial Consult Date 06/09/16 Type of Consultation: hemeon Referring Provider: MAURY BENITEZ MD 24 HR Interval Summary Free Text/Dictation * patient seen and examined * no evidenced of any hematemesis/hematochezia * off pressors * latest hemoglobin 7.6 * tolerating tube feeding Exam/Review of Systems Vital Signs Vitals Vital Signs Date Time Temp Pulse Resp B/P Pulse Ox O2 Delivery O2 Flow Rate FiO2 07/07/16 20:00 85 07/07/16 17:00 13 114/63 98 Room Air 07/07/16 16:00 98.7 07/06/16 23:42 21 07/03/16 15:00 2.0 Intake and Output 07/06/16 07/06/16 07/07/16 15:00 23:00 07:00 Intake Total 1373.413 ml 1147.167 ml 1073.66 ml Output Total 505 ml 607 ml 935 ml Balance 868.413 ml 540.167 ml 138.66 ml Exam General: The patient is well-developed, in moderate distress. HEENT: Atraumatic, normocephalic. The pupils are equal and round . Neck: Supple with full range of motion. Chest: Normal expansion of the thorax during inspiration Lungs: Clear to auscultation bilaterally Heart: Normal S1-S2, Regular rhythm and rate. Abdomen: Soft , upper abdominal tenderness, nondistended , bowel sounds are present. Extremities: Normal to inspection, no edema no cyanosis Neurologic: Normal mental status,The patient is awake, alert and oriented . Results Result Diagram: 07/07/16 0500 07/07/16 0500 Results 24 hrs Laboratory Tests Test 07/07/16 00:32 07/07/16 05:00 07/07/16 05:50 07/07/16 13:19 Bedside Glucose 94 138 160 White Blood Count 5.3 Red Blood Count 2.62 L Hemoglobin 7.6 L Hematocrit 24.4 L Mean Corpuscular Volume 93.1 Mean Corpuscular Hemoglobin 29.0 Mean Corpuscular Hemoglobin Concent 31.1 L Red Cell Distribution Width 18.2 H Platelet Count 66 #L Mean Platelet Volume 10.9 H Neutrophils % 74.2 Lymphocytes % 13.6 L Monocytes % 7.7 Eosinophils % 1.3 Basophils % 0.0 Nucleated Red Blood Cells % 0.4 H Neutrophils # 3.9 Lymphocytes # 0.7 L Monocytes # 0.4 Eosinophils # 0.1 Basophils # 0.0 Nucleated Red Blood Cells # 0.0 Sodium Level 147 H Potassium Level 3.7 Chloride Level 116 H Carbon Dioxide Level 24 Anion Gap 11 Blood Urea Nitrogen 19 Creatinine 0.68 Glucose Level 132 Calcium Level 7.7 L Medications Medications Current Medications Ondansetron HCl (Zofran Inj) 4 mg Q6H PRN IV NAUSEA AND/OR VOMITING; Start 06/09 at 04:30 Dutasteride (Avodart) 0.5 mg AM PO Last administered on 07/07/16 08:48; Admin Dose 0.5 MG; Start 06/09/16 at 09:00 Finasteride (Proscar) 5 mg AM PO Last administered on 07/05/16 08:29; Admin Dose 5 MG; Start 06/09/16 at 09:00 Levothyroxine Sodium (Synthroid) 50 mcg DAILY@06 PO Last administered on 05:51; Admin Dose 50 MCG; Start 06/09/16 at 06:00 Rifaximin (Xifaxan) 550 mg BID PO Last administered on 07/07/16 20:41; Admin Dose 550 MG; Start 06/11/16 at 14:30 Eye Lubricant (Artificial Tears Oph) 2 drop QID BOTH EYES Last administered on 07/07/16 20:42; Admin Dose 2 DROP; Start 06/12/16 at 13:00 Hydralazine HCl (Apresoline) 10 mg Q2H PRN IV SBP>170; Start 06/12/16 at 17:00 Acetaminophen (Tylenol Liquid) 650 mg Q4H PRN NGT PAIN AND OR ELEVATED TEMP Last administered on 07/07/16 19:02; Admin Dose 650 MG; Start 06/17/16 at 12:30 Lactulose (Enulose) 30 gm QID PO Last administered on 07/07/16 20:57; Admin Dose 30 GM; Start 06/24/16 at 21:30 Febuxostat (Uloric) 40 mg DAILY PO Last administered on 07/07/16 08:48; Admin Dose 40 MG; Start 06/25/16 at 15:00 Colchicine (Colchicine) 0.6 mg TID PRN PO gout pain Last administered on 22:45; Admin Dose 0.6 MG; Start 06/25/16 at 21:00 Lorazepam (Ativan) 1 mg Q6H PRN IV ANXIETY Last administered on 07/07/16 04:39 ; Admin Dose 1 MG; Start 06/25/16 at 18:30 Prednisone (Prednisone) 40 mg DAILY GTB Last administered on 07/07/16 08:48; Admin Dose 40 MG; Start 06/27/16 at 14:30 Metoprolol Tartrate (Lopressor) 5 mg Q4H PRN IV HR>110 Last administered on 15:37; Admin Dose 5 MG; Start 06/28/16 at 16:00 Amiodarone HCl 200 mg 200 mg BID NGT Last administered on 07/07/16 20:41; Admin Dose 200 MG; Start 06/28/16 at 21:00 Potassium Chloride/Dextrose (D5W + KCl 20 Meq) 1,000 ml @ 50 mls/hr Q20H IV Last administered on 07/07/16 05:22; Admin Dose 50 MLS/HR; Start 07/02/16 at 20 :00 IV Flush 10 ml 10 ml PRN PRN IV IV PROTOCOL; Start 07/02/16 at 19:30 Pantoprazole/ Sodium Chloride (Protonix Iv/NS) 100 ml @ 10 mls/hr Q10H IV Last administered on 07/07/16 13:07; Admin Dose 10 MLS/HR; Start 07/03/16 at 12 :00 Tamsulosin HCl (Flomax) 0.4 mg HS PO Last administered on 07/07/16 20:41; Admin Dose 0.4 MG; Start 07/03/16 at 21:00 Miscellaneous Information 1 ea NOTE XX ; Start 07/05/16 at 20:00 Glucose (Glutose) 15 gm Q15M PRN PO DECREASED GLUCOSE; Start 07/05/16 at 20:00 Glucose (Glutose) 22.5 gm Q15M PRN PO DECREASED GLUCOSE; Start 07/05/16 at 20: 00 Dextrose (D50w Syringe) 25 ml Q15M PRN IV DECREASED GLUCOSE; Start 07/05/16 at 20:00 Dextrose (D50w Syringe) 50 ml Q15M PRN IV DECREASED GLUCOSE; Start 07/05/16 at 20:00 Glucagon (Glucagen) 1 mg Q15M PRN IM DECREASED GLUCOSE; Start 07/05/16 at 20:00 Glucose (Glutose) 15 gm Q15M PRN BUCCAL DECREASED GLUCOSE; Start 07/05/16 at 20 :00 Morphine Sulfate (morphine) 4 mg Q4H PRN IV PAIN Last administered on 08:46; Admin Dose 4 MG; Start 07/05/16 at 22:00 Metoprolol Tartrate 25 mg 25 mg BID PO ; Start 07/06/16 at 09:00 Dopamine HCl/ Dextrose 250 ml @ 7.35 mls/hr TITRATE IV ; Start 07/06/16 at 22: 00 Caspofungin/ Sodium Chloride (Cancidas/NS) 250 ml @ 250 mls/hr Q24H IVPB Last administered on 07/07/16 14:05; Admin Dose 250 MLS/HR; Start 07/07/16 at 14:00 FAYE RUSHING MD Jul 07, 2016 22:00
--- NOTE | 2016-07-07 22:08 | CONS ---
Date/Time of Note Date/Time of Note DATE: 06/24/16 TIME: 22:07 vk le Assessment/Plan Assessment/Plan Chief Complaint/Hosp Course Anemia - COMPLEX, MULTIFACTORIAL WITH COMPONENT ACD, ACUTE BLOOD LOSS AND SEVERE IRON DEFICIENCY IN THE PAST * Esophageal variceal bleeding * CONT TO MONITOR BLOOD COUNT CLOSELY * OBSERVE FOR BLEEDING AND HEMOLYSIS * PRBC NEEDED Alcoholic cirrhosis Portal encephalopathy Ascites Coagulopathy- CORRECT Problems: Consultation Date/Type/Reason Admit Date/Time Jun 09, 2016 at 04:01 Date of Consultation: Jun 09, 2016 Type of Consultation: HEMEONC Reason for Consultation ANEMIA GIB Referring Provider: MONTY SEARS MD Hx of Present Illness This is a 71 yo male with hx of HTN, hypothyroidism, alcoholic liver cirrhosis who presented to ER for hematemesis. He is accompanied by his son and grand daughter who provided almost all history. Pt is somehow sleepy, but arousable and is able to answer questions with help of freelance interpreter/translator. He has been feeling weak and nauseous all day yesterday, then had hematemesis with large amount of bright red blood(family took a picture on cell phone). This is his first episode of upper GI Bleed. He had noted dark stool in the past. He had an EGD 3 months ago, but per son no banding/ligation. They also reported hx of hepatic encephalopathy. He is not entirely compliant with all his medication. In ER, he was found to be severely anemic with hgb of 4.5 and hypotensive with initial BP of 65/37. Currently his is receiving blood transfusion and awaiting GI evaluation. . PMH/Family/Social Past Medical History Medical History: hypertension, hyperthyroid, other (cirrhosis) Past Surgical History 1. hernia 2. lap choley 3. cataract Social History Alcohol Use: sober Smoking Status: Former smoker Drug Use: none Constitutional: other (Weakness) Eyes: no complaints, No discharge, No other, No pain, No redness, No visual change ENT: no complaints, No bleeding, No congestion, No discharge, No dysphagia, No other, No pain, No sore throat Respiratory: no complaints Cardiovascular: no complaints, No chest pain, No edema, No lightheadedness, No orthopenea, No other, No palpitations, No paroxysmal nocturnal dyspnea Gastrointestinal: no complaints, other (Hematemesis), pain (Diffuse abdominal pain, mild), No blood, No constipation, No decreased appetite, No diarrhea, No flatus, No nausea, No passing stool, No vomiting Genitourinary: no complaints, No bleeding, No discharge, No dysuria, No flank pain, No hematuria, No other Musculoskeletal: no complaints, No back pain, No bone/joint pain, No neck pain, No other, No restricted range of motion, No swelling Skin: no complaints, No bruising, No erythema, No laceration, No other, No pruritis, No rash, No skin lesions Neurologic: no complaints, No confusion, No dizziness, No focal-weakness, No headache, No other, No seizure, No syncope Endocrine: no complaints, No dry skin, No other, No polydypsia, No polyuria, No temp intolerance Lymphatic: no complaints, No adenopathy, No lymphadema, No other, No tender nodes Psychological: no complaints Immunologic: no complaints, No immunodeficiency, No other, No pruritis, No rhinitis, No urticaria Past Medical History Medical History: hypertension, hyperthyroid, other (cirrhosis) Past Surgical History Past Surgical Hx: no surgical history Social History Alcohol Use: other (Previously heavy ethanol abuse) Smoking Status: Former smoker Drug Use: none Exam/Review of Systems Vital Signs Vitals Vital Signs Date Time Temp Pulse Resp B/P Pulse Ox O2 Delivery O2 Flow Rate FiO2 06/09/16 03:15 101 15 96/70 06/09/16 03:00 97.7 100 Room Air 06/09/16 00:25 4 Exam Exam Constitutional: other (Sleepy, but arousable. obese) Head: atraumatic, normocephalic Eyes: EOMI, PERRL, icteric Respiratory: clear to auscultation, normal air movement Cardiovascular: other (tachycardic withregular rhythm) Gastrointestinal: other (obese), soft, tender Extremities: normal pulses, other (trace pitting edema in lower ext bilaterally ) Results Result Diagram: 07/07/16 0500 07/07/16 0500 Results 24 hrs Laboratory Tests Test 07/07/16 00:32 07/07/16 05:00 07/07/16 05:50 07/07/16 13:19 Bedside Glucose 94 138 160 White Blood Count 5.3 Red Blood Count 2.62 L Hemoglobin 7.6 L Hematocrit 24.4 L Mean Corpuscular Volume 93.1 Mean Corpuscular Hemoglobin 29.0 Mean Corpuscular Hemoglobin Concent 31.1 L Red Cell Distribution Width 18.2 H Platelet Count 66 #L Mean Platelet Volume 10.9 H Neutrophils % 74.2 Lymphocytes % 13.6 L Monocytes % 7.7 Eosinophils % 1.3 Basophils % 0.0 Nucleated Red Blood Cells % 0.4 H Neutrophils # 3.9 Lymphocytes # 0.7 L Monocytes # 0.4 Eosinophils # 0.1 Basophils # 0.0 Nucleated Red Blood Cells # 0.0 Sodium Level 147 H Potassium Level 3.7 Chloride Level 116 H Carbon Dioxide Level 24 Anion Gap 11 Blood Urea Nitrogen 19 Creatinine 0.68 Glucose Level 132 Calcium Level 7.7 L Medications Medications Current Medications Ondansetron HCl (Zofran Inj) 4 mg Q6H PRN IV NAUSEA AND/OR VOMITING; Start 06/09 at 04:30 Dutasteride (Avodart) 0.5 mg AM PO Last administered on 07/07/16 08:48; Admin Dose 0.5 MG; Start 06/09/16 at 09:00 Finasteride (Proscar) 5 mg AM PO Last administered on 07/05/16 08:29; Admin Dose 5 MG; Start 06/09/16 at 09:00 Levothyroxine Sodium (Synthroid) 50 mcg DAILY@06 PO Last administered on 05:51; Admin Dose 50 MCG; Start 06/09/16 at 06:00 Rifaximin (Xifaxan) 550 mg BID PO Last administered on 07/07/16 20:41; Admin Dose 550 MG; Start 06/11/16 at 14:30 Eye Lubricant (Artificial Tears Oph) 2 drop QID BOTH EYES Last administered on 07/07/16 20:42; Admin Dose 2 DROP; Start 06/12/16 at 13:00 Hydralazine HCl (Apresoline) 10 mg Q2H PRN IV SBP>170; Start 06/12/16 at 17:00 Acetaminophen (Tylenol Liquid) 650 mg Q4H PRN NGT PAIN AND OR ELEVATED TEMP Last administered on 07/07/16 19:02; Admin Dose 650 MG; Start 06/17/16 at 12:30 Lactulose (Enulose) 30 gm QID PO Last administered on 07/07/16 20:57; Admin Dose 30 GM; Start 06/24/16 at 21:30 Febuxostat (Uloric) 40 mg DAILY PO Last administered on 07/07/16 08:48; Admin Dose 40 MG; Start 06/25/16 at 15:00 Colchicine (Colchicine) 0.6 mg TID PRN PO gout pain Last administered on 22:45; Admin Dose 0.6 MG; Start 06/25/16 at 21:00 Lorazepam (Ativan) 1 mg Q6H PRN IV ANXIETY Last administered on 07/07/16 04:39 ; Admin Dose 1 MG; Start 06/25/16 at 18:30 Prednisone (Prednisone) 40 mg DAILY GTB Last administered on 07/07/16 08:48; Admin Dose 40 MG; Start 06/27/16 at 14:30 Metoprolol Tartrate (Lopressor) 5 mg Q4H PRN IV HR>110 Last administered on 15:37; Admin Dose 5 MG; Start 06/28/16 at 16:00 Amiodarone HCl 200 mg 200 mg BID NGT Last administered on 07/07/16 20:41; Admin Dose 200 MG; Start 06/28/16 at 21:00 Potassium Chloride/Dextrose (D5W + KCl 20 Meq) 1,000 ml @ 50 mls/hr Q20H IV Last administered on 07/07/16 05:22; Admin Dose 50 MLS/HR; Start 07/02/16 at 20 :00 IV Flush 10 ml 10 ml PRN PRN IV IV PROTOCOL; Start 07/02/16 at 19:30 Pantoprazole/ Sodium Chloride (Protonix Iv/NS) 100 ml @ 10 mls/hr Q10H IV Last administered on 07/07/16 13:07; Admin Dose 10 MLS/HR; Start 07/03/16 at 12 :00 Tamsulosin HCl (Flomax) 0.4 mg HS PO Last administered on 07/07/16 20:41; Admin Dose 0.4 MG; Start 07/03/16 at 21:00 Miscellaneous Information 1 ea NOTE XX ; Start 07/05/16 at 20:00 Glucose (Glutose) 15 gm Q15M PRN PO DECREASED GLUCOSE; Start 07/05/16 at 20:00 Glucose (Glutose) 22.5 gm Q15M PRN PO DECREASED GLUCOSE; Start 07/05/16 at 20: 00 Dextrose (D50w Syringe) 25 ml Q15M PRN IV DECREASED GLUCOSE; Start 07/05/16 at 20:00 Dextrose (D50w Syringe) 50 ml Q15M PRN IV DECREASED GLUCOSE; Start 07/05/16 at 20:00 Glucagon (Glucagen) 1 mg Q15M PRN IM DECREASED GLUCOSE; Start 07/05/16 at 20:00 Glucose (Glutose) 15 gm Q15M PRN BUCCAL DECREASED GLUCOSE; Start 07/05/16 at 20 :00 Morphine Sulfate (morphine) 4 mg Q4H PRN IV PAIN Last administered on 08:46; Admin Dose 4 MG; Start 07/05/16 at 22:00 Metoprolol Tartrate 25 mg 25 mg BID PO ; Start 07/06/16 at 09:00 Dopamine HCl/ Dextrose 250 ml @ 7.35 mls/hr TITRATE IV ; Start 07/06/16 at 22: 00 Caspofungin/ Sodium Chloride (Cancidas/NS) 250 ml @ 250 mls/hr Q24H IVPB Last administered on 07/07/16 14:05; Admin Dose 250 MLS/HR; Start 07/07/16 at 14:00 FAYE RUSHING MD Jul 07, 2016 22:08
[2016-07-08] VITALS (26 sets, daily range): BP systolic 102–154; BP diastolic 50–114; PULSE 60–101; RESP 13–22
[2016-07-08] MEDS: morphine 4 MG/ML VIAL IV PRN (01:10)
[2016-07-08] MEDS: LORAZEPAM 2 MG INJ IV PRN ×2 (04:38→22:21)
[2016-07-08 05:35] LABS: ADD SCAN DIFF NO
[2016-07-08] MEDS: D5W + KCL 20 MEQ 1,000 ML IV SCH (05:35)
[2016-07-08 05:48] LABS: AADO2 Arterial 48.1 mmHg (7.0-24.0); Allen Test ACCEPTAB; Arterial Base Excess -1.7 mmol/L (-3.0-3); Arterial COHb 0.3 % (0.0-3.0); Arterial Fraction of Oxyhgb 91.4 % (93.0-99.0); Arterial HCO3 21.5 mmol/L (22.0-26.0); Arterial MetHb 0.3 % (0.0-1.5); Arterial Total Hemglobin 8.9 g/dl (12.0-18.0); MODE ROOM AIR
[2016-07-08 05:53] LABS: ABNORMAL IP MESSAGE 1; BASOPHILS % 0.2 % (0.0-2.0); EOSINOPHILS # 0.1 10^3/ul (0.0-0.5); HEMATOCRIT 24.7 % (42.0-52.0); HEMOGLOBIN 7.6 g/dl (14.0-18.0); LYMPHOCYTES # 0.8 10^3/ul (0.8-2.9); LYMPHOCYTES % 14.2 % (15.0-51.0); MEAN CORPUSCULAR HEMOGLOBIN 28.8 pg (29.0-33.0); MEAN CORPUSCULAR HGB CONC 30.8 g/dl (32.0-37.0); MEAN CORPUSCULAR VOLUME 93.6 fl (82.0-101.0); MEAN PLATELET VOLUME 11.3 fl (7.4-10.4); MONOCYTE # 0.5 10^3/ul (0.3-0.9); MONOCYTES % 8.3 % (0.0-11.0); NEUTROPHIL # 4.2 10^3/ul (1.6-7.5); NEUTROPHILS % 71.6 % (39.0-77.0); NUCLEATED RED BLOOD CELLS% 0.3 /100WBC (0.0-0.0); PLATELET COUNT 65 10^3/UL (140-415); RED BLOOD COUNT 2.64 10^6/ul (4.70-6.10); RED CELL DISTRIBUTION WIDTH 18.8 % (11.5-14.5); WHITE BLOOD COUNT 5.9 10^3/ul (4.8-10.8)
[2016-07-08 05:55] LABS: INR 1.37; PARTIAL THROMBOPLASTIN TIME 31.5 Sec (25.0-35.0); PROTIME 16.9 Sec (12.2-14.2); PT RATIO 1.3
[2016-07-08 06:02] LABS: ALBUMIN 2.3 g/dl (3.3-4.9)
[2016-07-08 06:03] LABS: POTASSIUM 4.1 mmol/L (3.5-5.1)
[2016-07-08 06:05] LABS: ALBUMIN/GLOBULIN RATIO 0.79; BILIRUBIN,INDIRECT 0.5 mg/dl (0-1.1); BILIRUBIN,TOTAL 0.5 mg/dl (0.2-1.3); CALCIUM 7.7 mg/dl (8.4-10.2); CREATININE 0.7 mg/dl (0.61-1.24); TOTAL PROTEIN 5.2 g/dl (6.1-8.1)
[2016-07-08] MEDS: LEVOTHYROXINE 50 MCG TAB PO SCH (06:07)
[2016-07-08] MEDS: ARTIFICIAL TEARS 15 ML OPH BOTH EYES SCH ×4 (09:00→21:23)
[2016-07-08] MEDS: predniSONE 20 MG TAB GTB SCH (09:16)
[2016-07-08] MEDS: FINASTERIDE 5 MG TAB PO SCH (09:17)
[2016-07-08] MEDS: FEBUXOSTAT 40 MG TABLET PO SCH (09:17)
[2016-07-08] MEDS: RIFAXIMIN 550 MG TAB PO SCH ×2 (09:17→21:33)
[2016-07-08] MEDS: AMIODARONE 200 MG TAB NGT SCH ×2 (09:17→21:32)
[2016-07-08] MEDS: DUTASTERIDE 0.5 MG CAP PO SCH (09:17)
[2016-07-08] MEDS: METOPROLOL 25 MG TAB PO SCH ×2 (09:17→21:33)
[2016-07-08] MEDS: LACTULOSE 30ML CUP PO SCH ×4 (09:26→21:25)
--- NOTE | 2016-07-08 09:37 | RADRPT ---
PROCEDURE: Chest 1 views. CLINICAL INDICATION: Shortness of breath and cough TECHNIQUE: AP views of the chest was obtained. COMPARISON: July 04, 2016 FINDINGS: The heart is large. The lungs are hypoinflated. Elevation right hemidiaphragm is identified. Associ ated atelectasis/consolidation of the right middle and lower lobes is noted. Retrocardiac opacity is seen. Mild interstitial prominence in both lungs is unchanged. Left-sided PICC line is stable. T he osseous structures are osteopenic, but appear grossly intact. IMPRESSION: Cardiomegaly . Hypoinflated lungs. Stable retrocardiac opacity that may reflect left lower lobe atelectasis or infiltrate combined with small pleural effusion. Stable elevation of the right hemidiaphragm with associated atelectasis/consolidation of the right m iddle and lower lobes. RPTAT: AA .Pineda Faulkner MD, Date Time Electronically viewed and signed by .Pineda Faulkner MD, on 07/08/2016 09:36 .P/
[2016-07-08] MEDS: PANTOPRAZOLE IV 80 MG in SOD CHLORIDE 0.9% 100 ML IV SCH ×2 (10:14→23:44)
--- NOTE | 2016-07-08 11:03 | PN ---
Date/Time of Note Date/Time of Note DATE: 07/08/16 TIME: 11:00 Assessment/Plan VTE Prophylaxis VTE Prophylaxis Intervention: SCD's Lines/Catheters IV Catheter Type (from Nrs): PICC Line Central line still needed: Yes Urinary Cath still in place: Yes Reason Cath still needed: urinary retention Assessment/Plan Chief Complaint/Hosp Course Assessment/Plan 1. Esophageal variceal bleeding/post EVL, follow up with GI, continue PPI, continue octreotide, repeat endoscopy demonstrated multiple esophageal ulcer 3. Paroxysmal atrial fibrillation/atrial flutter, now back in sinus rhythm and remains thus - now in sinus - better rate controlled now. 4. REC NSVT - add BB as toleated - BEA stable now - no new episodes now - no ectopy noted today. 5. Resolving sepsis, on multiple antibiotics, follow up with ID 6. Encephalopathy-likely secondary to history of cirrhosis and alcohol abuse, no acute changes, continue lactulose 7. Anemia, , status post transfusions- H/H stable. Continue to monitor, transfuse as per protocol 8. Hypernatremia. follow up with electrolytes, start free water via G-tube 9. Coagulopathy, likely secondary to his history of cirrhosis and alcohol abuse 10. PEG, G-tube feeding Off pressors, transferred to telemetry floor PT OT eval and treat Problems: Subjective 24 Hr Interval Summary Free Text/Dictation Patient is found to be agitated and altered He has required a sitter and soft restraints No nausea vomiting or diarrhea Tolerating PEG tube feeding Exam/Review of Systems Vital Signs Vitals Vital Signs Date Time Temp Pulse Resp B/P Pulse Ox O2 Delivery O2 Flow Rate FiO2 07/08/16 09:00 96 21 140/87 100 Room Air 07/08/16 08:00 2.0 07/08/16 07:30 98.7 07/06/16 23:42 21 Intake and Output 07/07/16 07/07/16 07/08/16 15:00 23:00 07:00 Intake Total 1360 ml 1520 ml 980 ml Output Total 285 ml 1205 ml 180 ml Balance 1075 ml 315 ml 800 ml Exam General: The patient is morbidly obese, Not in acute distress. HEENT: Atraumatic, normocephalic. The pupils are equal and round . Neck: Supple with full range of motion. Chest: Normal expansion of the thorax during inspiration Lungs: Clear to auscultation bilaterally Heart: Normal S1-S2, Regular rhythm and rate. Abdomen: Abdominal contour is morbidly obese, soft , nontender, nondistended , bowel sounds are present. PEG tube in place Extremities: Normal to inspection, no edema no cyanosis Neurologic: Encephalopathic Results Result Diagram: 07/08/16 0442 07/08/16 0442 Results 24 hrs Laboratory Tests Test 07/07/16 13:19 07/08/16 04:42 07/08/16 05:00 Bedside Glucose 160 White Blood Count 5.9 Red Blood Count 2.64 L Hemoglobin 7.6 L Hematocrit 24.7 L Mean Corpuscular Volume 93.6 Mean Corpuscular Hemoglobin 28.8 L Mean Corpuscular Hemoglobin Concent 30.8 L Red Cell Distribution Width 18.8 H Platelet Count 65 L Mean Platelet Volume 11.3 H Neutrophils % 71.6 Lymphocytes % 14.2 L Monocytes % 8.3 Eosinophils % 2.0 Basophils % 0.2 Nucleated Red Blood Cells % 0.3 H Neutrophils # 4.2 Lymphocytes # 0.8 Monocytes # 0.5 Eosinophils # 0.1 Basophils # 0.0 Nucleated Red Blood Cells # 0.0 Prothrombin Time 16.9 H Prothrombin Time Ratio 1.3 INR International Normalized Ratio 1.37 Activated Partial Thromboplast Time 31.5 Sodium Level 145 H Potassium Level 4.1 Chloride Level 115 H Carbon Dioxide Level 23 Anion Gap 11 Blood Urea Nitrogen 17 Creatinine 0.70 Glucose Level 212 Calcium Level 7.7 L Total Bilirubin 0.5 Direct Bilirubin 0.00 Indirect Bilirubin 0.5 Aspartate Amino Transf (AST/SGOT) 38 Alanine Aminotransferase (ALT/SGPT) 33 Alkaline Phosphatase 136 H Total Protein 5.2 L Albumin 2.3 L Globulin 2.90 Albumin/Globulin Ratio 0.79 Blood Gas Specimen Source Blood arterial Arterial Blood Date Drawn 07/08/2016 5:40:13 AM Arterial Blood pH (Temp corrected) 7.464 H Arterial Blood pCO2 (Temp correct) 30.7 L Arterial Blood pO2 (Temp corrected) 64.9 L Arterial Blood HCO3 21.5 L Arterial Blood Base Excess -1.7 Arterial Blood Oxygen Saturation 92.0 L Adelso Test ACCEPTAB Arterial Blood Gas Puncture Site Right Radial Arterial Blood Carboxyhemoglobin 0.3 Arterial Blood Methemoglobin 0.3 Blood Gas A-a O2 Differential 48.1 H Oxyhemoglobin Percent 91.4 L Total Hemoglobin 8.9 L Blood Gas Temperature 37.0 Blood Gas Actual Respiration Rate 18 Blood Gas Modality ROOM AIR FiO2 21.0 Blood Gas Notified Whom Blood Gas Notified Time 07/08/2016 5:48:04 AM Medications Medications Current Medications Ondansetron HCl (Zofran Inj) 4 mg Q6H PRN IV NAUSEA AND/OR VOMITING; Start 06/09 at 04:30 Dutasteride (Avodart) 0.5 mg AM PO Last administered on 07/08/16 09:17; Admin Dose 0.5 MG; Start 06/09/16 at 09:00 Finasteride (Proscar) 5 mg AM PO Last administered on 07/08/16 09:17; Admin Dose 5 MG; Start 06/09/16 at 09:00 Levothyroxine Sodium (Synthroid) 50 mcg DAILY@06 PO Last administered on 06:07; Admin Dose 50 MCG; Start 06/09/16 at 06:00 Rifaximin (Xifaxan) 550 mg BID PO Last administered on 07/08/16 09:17; Admin Dose 550 MG; Start 06/11/16 at 14:30 Eye Lubricant (Artificial Tears Oph) 2 drop QID BOTH EYES Last administered on 07/07/16 20:42; Admin Dose 2 DROP; Start 06/12/16 at 13:00 Hydralazine HCl (Apresoline) 10 mg Q2H PRN IV SBP>170; Start 06/12/16 at 17:00 Acetaminophen (Tylenol Liquid) 650 mg Q4H PRN NGT PAIN AND OR ELEVATED TEMP Last administered on 07/07/16 19:02; Admin Dose 650 MG; Start 06/17/16 at 12:30 Lactulose (Enulose) 30 gm QID PO Last administered on 07/08/16 09:26; Admin Dose 20 GM; Start 06/24/16 at 21:30 Febuxostat (Uloric) 40 mg DAILY PO Last administered on 07/08/16 09:17; Admin Dose 40 MG; Start 06/25/16 at 15:00 Colchicine (Colchicine) 0.6 mg TID PRN PO gout pain Last administered on 22:45; Admin Dose 0.6 MG; Start 06/25/16 at 21:00 Lorazepam (Ativan) 1 mg Q6H PRN IV ANXIETY Last administered on 07/08/16 04:38 ; Admin Dose 1 MG; Start 06/25/16 at 18:30 Prednisone (Prednisone) 40 mg DAILY GTB Last administered on 07/08/16 09:16; Admin Dose 40 MG; Start 06/27/16 at 14:30 Metoprolol Tartrate (Lopressor) 5 mg Q4H PRN IV HR>110 Last administered on 15:37; Admin Dose 5 MG; Start 06/28/16 at 16:00 Amiodarone HCl 200 mg 200 mg BID NGT Last administered on 07/08/16 09:17; Admin Dose 200 MG; Start 06/28/16 at 21:00 Potassium Chloride/Dextrose (D5W + KCl 20 Meq) 1,000 ml @ 50 mls/hr Q20H IV Last administered on 07/08/16 05:35; Admin Dose 50 MLS/HR; Start 07/02/16 at 20 :00 IV Flush 10 ml 10 ml PRN PRN IV IV PROTOCOL; Start 07/02/16 at 19:30 Pantoprazole/ Sodium Chloride (Protonix Iv/NS) 100 ml @ 10 mls/hr Q10H IV Last administered on 07/08/16 10:14; Admin Dose 10 MLS/HR; Start 07/03/16 at 12 :00 Tamsulosin HCl (Flomax) 0.4 mg HS PO Last administered on 07/07/16 20:41; Admin Dose 0.4 MG; Start 07/03/16 at 21:00 Miscellaneous Information 1 ea NOTE XX ; Start 07/05/16 at 20:00 Glucose (Glutose) 15 gm Q15M PRN PO DECREASED GLUCOSE; Start 07/05/16 at 20:00 Glucose (Glutose) 22.5 gm Q15M PRN PO DECREASED GLUCOSE; Start 07/05/16 at 20: 00 Dextrose (D50w Syringe) 25 ml Q15M PRN IV DECREASED GLUCOSE; Start 07/05/16 at 20:00 Dextrose (D50w Syringe) 50 ml Q15M PRN IV DECREASED GLUCOSE; Start 07/05/16 at 20:00 Glucagon (Glucagen) 1 mg Q15M PRN IM DECREASED GLUCOSE; Start 07/05/16 at 20:00 Glucose (Glutose) 15 gm Q15M PRN BUCCAL DECREASED GLUCOSE; Start 07/05/16 at 20 :00 Morphine Sulfate (morphine) 4 mg Q4H PRN IV PAIN Last administered on 01:10; Admin Dose 4 MG; Start 07/05/16 at 22:00 Metoprolol Tartrate 25 mg 25 mg BID PO Last administered on 07/08/16 09:17; Admin Dose 25 MG; Start 07/06/16 at 09:00 Dopamine HCl/ Dextrose 250 ml @ 7.35 mls/hr TITRATE IV ; Start 07/06/16 at 22: 00 Caspofungin/ Sodium Chloride (Cancidas/NS) 250 ml @ 250 mls/hr Q24H IVPB Last administered on 07/07/16 14:05; Admin Dose 250 MLS/HR; Start 07/07/16 at 14:00 NHI AHMADI MD Jul 08, 2016 11:03
--- NOTE | 2016-07-08 11:46 | PN ---
Date/Time of Note Date/Time of Note DATE: 07/08/16 TIME: 11:40 Assessment/Plan VTE Prophylaxis VTE Prophylaxis Intervention: SCD's Lines/Catheters IV Catheter Type (from Nrs): PICC Line Central line still needed: Yes Urinary Cath still in place: Yes Reason Cath still needed: urinary retention Subjective 24 Hr Interval Summary Free Text/Dictation * course reviewed with nurse * patient seen and examined * patient is confused * no hematemesis,nor melena * tolerating g tube feeding minimal residual * spoke to case management regarding process for transfer higher level ,started the process Exam/Review of Systems Vital Signs Vitals Vital Signs Date Time Temp Pulse Resp B/P Pulse Ox O2 Delivery O2 Flow Rate FiO2 07/08/16 09:00 96 21 140/87 100 Room Air 07/08/16 08:00 2.0 07/08/16 07:30 98.7 07/06/16 23:42 21 Intake and Output 07/07/16 07/07/16 07/08/16 14:59 22:59 06:59 Intake Total 1360 ml 1520 ml 1030 ml Output Total 275 ml 1215 ml 210 ml Balance 1085 ml 305 ml 820 ml Exam Constitutional: other (confused) Neck: supple Respiratory: clear to auscultation, normal air movement Cardiovascular: nl pulses, regular rate and rhythm Gastrointestinal: bowel sounds, non-tender, soft, No hepatomegaly, No rebound or guarding Musculoskeletal: nl extremities to inspection Extremities: normal pulses Neurological: confused Results Result Diagram: 07/08/16 0442 07/08/16 0442 Results 24 hrs Laboratory Tests Test 07/07/16 13:19 07/08/16 04:42 07/08/16 05:00 Bedside Glucose 160 White Blood Count 5.9 Red Blood Count 2.64 L Hemoglobin 7.6 L Hematocrit 24.7 L Mean Corpuscular Volume 93.6 Mean Corpuscular Hemoglobin 28.8 L Mean Corpuscular Hemoglobin Concent 30.8 L Red Cell Distribution Width 18.8 H Platelet Count 65 L Mean Platelet Volume 11.3 H Neutrophils % 71.6 Lymphocytes % 14.2 L Monocytes % 8.3 Eosinophils % 2.0 Basophils % 0.2 Nucleated Red Blood Cells % 0.3 H Neutrophils # 4.2 Lymphocytes # 0.8 Monocytes # 0.5 Eosinophils # 0.1 Basophils # 0.0 Nucleated Red Blood Cells # 0.0 Prothrombin Time 16.9 H Prothrombin Time Ratio 1.3 INR International Normalized Ratio 1.37 Activated Partial Thromboplast Time 31.5 Sodium Level 145 H Potassium Level 4.1 Chloride Level 115 H Carbon Dioxide Level 23 Anion Gap 11 Blood Urea Nitrogen 17 Creatinine 0.70 Glucose Level 212 Calcium Level 7.7 L Total Bilirubin 0.5 Direct Bilirubin 0.00 Indirect Bilirubin 0.5 Aspartate Amino Transf (AST/SGOT) 38 Alanine Aminotransferase (ALT/SGPT) 33 Alkaline Phosphatase 136 H Total Protein 5.2 L Albumin 2.3 L Globulin 2.90 Albumin/Globulin Ratio 0.79 Blood Gas Specimen Source Blood arterial Arterial Blood Date Drawn 07/08/2016 5:40:13 AM Arterial Blood pH (Temp corrected) 7.464 H Arterial Blood pCO2 (Temp correct) 30.7 L Arterial Blood pO2 (Temp corrected) 64.9 L Arterial Blood HCO3 21.5 L Arterial Blood Base Excess -1.7 Arterial Blood Oxygen Saturation 92.0 L Adelso Test ACCEPTAB Arterial Blood Gas Puncture Site Right Radial Arterial Blood Carboxyhemoglobin 0.3 Arterial Blood Methemoglobin 0.3 Blood Gas A-a O2 Differential 48.1 H Oxyhemoglobin Percent 91.4 L Total Hemoglobin 8.9 L Blood Gas Temperature 37.0 Blood Gas Actual Respiration Rate 18 Blood Gas Modality ROOM AIR FiO2 21.0 Blood Gas Notified Whom Blood Gas Notified Time 07/08/2016 5:48:04 AM Medications Medications Current Medications Ondansetron HCl (Zofran Inj) 4 mg Q6H PRN IV NAUSEA AND/OR VOMITING; Start 06/09 at 04:30 Dutasteride (Avodart) 0.5 mg AM PO Last administered on 07/08/16 09:17; Admin Dose 0.5 MG; Start 06/09/16 at 09:00 Finasteride (Proscar) 5 mg AM PO Last administered on 07/08/16 09:17; Admin Dose 5 MG; Start 06/09/16 at 09:00 Levothyroxine Sodium (Synthroid) 50 mcg DAILY@06 PO Last administered on 06:07; Admin Dose 50 MCG; Start 06/09/16 at 06:00 Rifaximin (Xifaxan) 550 mg BID PO Last administered on 07/08/16 09:17; Admin Dose 550 MG; Start 06/11/16 at 14:30 Eye Lubricant (Artificial Tears Oph) 2 drop QID BOTH EYES Last administered on 07/07/16 20:42; Admin Dose 2 DROP; Start 06/12/16 at 13:00 Hydralazine HCl (Apresoline) 10 mg Q2H PRN IV SBP>170; Start 06/12/16 at 17:00 Acetaminophen (Tylenol Liquid) 650 mg Q4H PRN NGT PAIN AND OR ELEVATED TEMP Last administered on 07/07/16 19:02; Admin Dose 650 MG; Start 06/17/16 at 12:30 Lactulose (Enulose) 30 gm QID PO Last administered on 07/08/16 09:26; Admin Dose 20 GM; Start 06/24/16 at 21:30 Febuxostat (Uloric) 40 mg DAILY PO Last administered on 07/08/16 09:17; Admin Dose 40 MG; Start 06/25/16 at 15:00 Colchicine (Colchicine) 0.6 mg TID PRN PO gout pain Last administered on 22:45; Admin Dose 0.6 MG; Start 06/25/16 at 21:00 Lorazepam (Ativan) 1 mg Q6H PRN IV ANXIETY Last administered on 07/08/16 04:38 ; Admin Dose 1 MG; Start 06/25/16 at 18:30 Prednisone (Prednisone) 40 mg DAILY GTB Last administered on 07/08/16 09:16; Admin Dose 40 MG; Start 06/27/16 at 14:30 Metoprolol Tartrate (Lopressor) 5 mg Q4H PRN IV HR>110 Last administered on 15:37; Admin Dose 5 MG; Start 06/28/16 at 16:00 Amiodarone HCl 200 mg 200 mg BID NGT Last administered on 07/08/16 09:17; Admin Dose 200 MG; Start 06/28/16 at 21:00 Potassium Chloride/Dextrose (D5W + KCl 20 Meq) 1,000 ml @ 50 mls/hr Q20H IV Last administered on 07/08/16 05:35; Admin Dose 50 MLS/HR; Start 07/02/16 at 20 :00 IV Flush 10 ml 10 ml PRN PRN IV IV PROTOCOL; Start 07/02/16 at 19:30 Pantoprazole/ Sodium Chloride (Protonix Iv/NS) 100 ml @ 10 mls/hr Q10H IV Last administered on 07/08/16 10:14; Admin Dose 10 MLS/HR; Start 07/03/16 at 12 :00 Tamsulosin HCl (Flomax) 0.4 mg HS PO Last administered on 07/07/16 20:41; Admin Dose 0.4 MG; Start 07/03/16 at 21:00 Miscellaneous Information 1 ea NOTE XX ; Start 07/05/16 at 20:00 Glucose (Glutose) 15 gm Q15M PRN PO DECREASED GLUCOSE; Start 07/05/16 at 20:00 Glucose (Glutose) 22.5 gm Q15M PRN PO DECREASED GLUCOSE; Start 07/05/16 at 20: 00 Dextrose (D50w Syringe) 25 ml Q15M PRN IV DECREASED GLUCOSE; Start 07/05/16 at 20:00 Dextrose (D50w Syringe) 50 ml Q15M PRN IV DECREASED GLUCOSE; Start 07/05/16 at 20:00 Glucagon (Glucagen) 1 mg Q15M PRN IM DECREASED GLUCOSE; Start 07/05/16 at 20:00 Glucose (Glutose) 15 gm Q15M PRN BUCCAL DECREASED GLUCOSE; Start 07/05/16 at 20 :00 Morphine Sulfate (morphine) 4 mg Q4H PRN IV PAIN Last administered on 01:10; Admin Dose 4 MG; Start 07/05/16 at 22:00 Metoprolol Tartrate 25 mg 25 mg BID PO Last administered on 07/08/16 09:17; Admin Dose 25 MG; Start 07/06/16 at 09:00 Dopamine HCl/ Dextrose 250 ml @ 7.35 mls/hr TITRATE IV ; Start 07/06/16 at 22: 00 Caspofungin/ Sodium Chloride (Cancidas/NS) 250 ml @ 250 mls/hr Q24H IVPB Last administered on 07/07/16 14:05; Admin Dose 250 MLS/HR; Start 07/07/16 at 14:00 JAC DAVIS MD Jul 08, 2016 11:46
--- NOTE | 2016-07-08 11:56 | PN ---
Date/Time of Note Date/Time of Note DATE: 07/08/16 TIME: 11:47 Assessment/Plan VTE Prophylaxis VTE Prophylaxis Intervention: SCD's Lines/Catheters IV Catheter Type (from [facility]): PICC Line Central line still needed: Yes Urinary Cath still in place: Yes Reason Cath still needed: urinary retention Assessment/Plan Assessment/Plan Esophageal variceal bleeding/post EVL * Anemia secondary to above hemoglobin 7.6 * Alcoholic cirrhosis * Post variceal bleeding/post EVL * Portal encephalopathy * Ascites/Neg U/S * Coagulopathy * Unsafe swallowing/failed swallow eval/high risk for aspiration * Post uneventful PEG/Tolerating feedings EGD with PEG placement 06/28/16 Esophageal ulcers with some old clots in the area, but no active bleeding. . Nasogastric tube trauma present. Uneventful percutaneous endoscopic gastrostomy tube placement with placement of Vietnamese 20 gastrostomy tube. EGD 07/02/2016 Multiple esophageal ulcers. Post-endoscopic variceal ligation with no active bleeding but positive stigmata of recent bleeding. . Gastrostomy tube in place and in good condition. . No other bleeding site or potential bleeding site identified. VRE Shock likely due to sepsis improved Plan continue g tube feeding monitor H and H Q6 transfuse per protocol monitor for signs and symptoms of bleeding follow up transfer to tertiary center Subjective 24 Hr Interval Summary Free Text/Dictation * course reviewed with nurse * patient seen and examined * no evidenced of any hematemesis/hematochezia * spoke to case management re transfer to tertiary center for transplant, process started * latest hemoglobin 7.6 * tolerating tube feeding Exam/Review of Systems Vital Signs Vitals Vital Signs Date Time Temp Pulse Resp B/P Pulse Ox O2 Delivery O2 Flow Rate FiO2 07/08/16 09:00 96 21 140/87 100 Room Air 07/08/16 08:00 2.0 07/08/16 07:30 98.7 07/06/16 23:42 21 Intake and Output 07/07/16 07/07/16 07/08/16 15:00 23:00 07:00 Intake Total 1360 ml 1520 ml 980 ml Output Total 285 ml 1205 ml 180 ml Balance 1075 ml 315 ml 800 ml Exam Constitutional: other (confused) Psych: confusion Neck: supple Respiratory: clear to auscultation, normal air movement Cardiovascular: nl pulses, regular rate and rhythm Gastrointestinal: non-tender (g tube in placed ,no bleeding), soft Musculoskeletal: nl extremities to inspection Results Result Diagram: 07/08/16 0442 07/08/16 0442 Results 24 hrs Laboratory Tests Test 07/07/16 13:19 07/08/16 04:42 07/08/16 05:00 Bedside Glucose 160 White Blood Count 5.9 Red Blood Count 2.64 L Hemoglobin 7.6 L Hematocrit 24.7 L Mean Corpuscular Volume 93.6 Mean Corpuscular Hemoglobin 28.8 L Mean Corpuscular Hemoglobin Concent 30.8 L Red Cell Distribution Width 18.8 H Platelet Count 65 L Mean Platelet Volume 11.3 H Neutrophils % 71.6 Lymphocytes % 14.2 L Monocytes % 8.3 Eosinophils % 2.0 Basophils % 0.2 Nucleated Red Blood Cells % 0.3 H Neutrophils # 4.2 Lymphocytes # 0.8 Monocytes # 0.5 Eosinophils # 0.1 Basophils # 0.0 Nucleated Red Blood Cells # 0.0 Prothrombin Time 16.9 H Prothrombin Time Ratio 1.3 INR International Normalized Ratio 1.37 Activated Partial Thromboplast Time 31.5 Sodium Level 145 H Potassium Level 4.1 Chloride Level 115 H Carbon Dioxide Level 23 Anion Gap 11 Blood Urea Nitrogen 17 Creatinine 0.70 Glucose Level 212 Calcium Level 7.7 L Total Bilirubin 0.5 Direct Bilirubin 0.00 Indirect Bilirubin 0.5 Aspartate Amino Transf (AST/SGOT) 38 Alanine Aminotransferase (ALT/SGPT) 33 Alkaline Phosphatase 136 H Total Protein 5.2 L Albumin 2.3 L Globulin 2.90 Albumin/Globulin Ratio 0.79 Blood Gas Specimen Source Blood arterial Arterial Blood Date Drawn 07/08/2016 5:40:13 AM Arterial Blood pH (Temp corrected) 7.464 H Arterial Blood pCO2 (Temp correct) 30.7 L Arterial Blood pO2 (Temp corrected) 64.9 L Arterial Blood HCO3 21.5 L Arterial Blood Base Excess -1.7 Arterial Blood Oxygen Saturation 92.0 L Adelso Test ACCEPTAB Arterial Blood Gas Puncture Site Right Radial Arterial Blood Carboxyhemoglobin 0.3 Arterial Blood Methemoglobin 0.3 Blood Gas A-a O2 Differential 48.1 H Oxyhemoglobin Percent 91.4 L Total Hemoglobin 8.9 L Blood Gas Temperature 37.0 Blood Gas Actual Respiration Rate 18 Blood Gas Modality ROOM AIR FiO2 21.0 Blood Gas Notified Whom Blood Gas Notified Time 07/08/2016 5:48:04 AM Medications Medications Current Medications Ondansetron HCl (Zofran Inj) 4 mg Q6H PRN IV NAUSEA AND/OR VOMITING; Start 06/09 at 04:30 Dutasteride (Avodart) 0.5 mg AM PO Last administered on 07/08/16 09:17; Admin Dose 0.5 MG; Start 06/09/16 at 09:00 Finasteride (Proscar) 5 mg AM PO Last administered on 07/08/16 09:17; Admin Dose 5 MG; Start 06/09/16 at 09:00 Levothyroxine Sodium (Synthroid) 50 mcg DAILY@06 PO Last administered on 06:07; Admin Dose 50 MCG; Start 06/09/16 at 06:00 Rifaximin (Xifaxan) 550 mg BID PO Last administered on 07/08/16 09:17; Admin Dose 550 MG; Start 06/11/16 at 14:30 Eye Lubricant (Artificial Tears Oph) 2 drop QID BOTH EYES Last administered on 07/07/16 20:42; Admin Dose 2 DROP; Start 06/12/16 at 13:00 Hydralazine HCl (Apresoline) 10 mg Q2H PRN IV SBP>170; Start 06/12/16 at 17:00 Acetaminophen (Tylenol Liquid) 650 mg Q4H PRN NGT PAIN AND OR ELEVATED TEMP Last administered on 07/07/16 19:02; Admin Dose 650 MG; Start 06/17/16 at 12:30 Lactulose (Enulose) 30 gm QID PO Last administered on 07/08/16 09:26; Admin Dose 20 GM; Start 06/24/16 at 21:30 Febuxostat (Uloric) 40 mg DAILY PO Last administered on 07/08/16 09:17; Admin Dose 40 MG; Start 06/25/16 at 15:00 Colchicine (Colchicine) 0.6 mg TID PRN PO gout pain Last administered on 22:45; Admin Dose 0.6 MG; Start 06/25/16 at 21:00 Lorazepam (Ativan) 1 mg Q6H PRN IV ANXIETY Last administered on 07/08/16 04:38 ; Admin Dose 1 MG; Start 06/25/16 at 18:30 Prednisone (Prednisone) 40 mg DAILY GTB Last administered on 07/08/16 09:16; Admin Dose 40 MG; Start 06/27/16 at 14:30 Metoprolol Tartrate (Lopressor) 5 mg Q4H PRN IV HR>110 Last administered on 15:37; Admin Dose 5 MG; Start 06/28/16 at 16:00 Amiodarone HCl 200 mg 200 mg BID NGT Last administered on 07/08/16 09:17; Admin Dose 200 MG; Start 06/28/16 at 21:00 Potassium Chloride/Dextrose (D5W + KCl 20 Meq) 1,000 ml @ 50 mls/hr Q20H IV Last administered on 07/08/16 05:35; Admin Dose 50 MLS/HR; Start 07/02/16 at 20 :00 IV Flush 10 ml 10 ml PRN PRN IV IV PROTOCOL; Start 07/02/16 at 19:30 Pantoprazole/ Sodium Chloride (Protonix Iv/NS) 100 ml @ 10 mls/hr Q10H IV Last administered on 07/08/16 10:14; Admin Dose 10 MLS/HR; Start 07/03/16 at 12 :00 Tamsulosin HCl (Flomax) 0.4 mg HS PO Last administered on 07/07/16 20:41; Admin Dose 0.4 MG; Start 07/03/16 at 21:00 Miscellaneous Information 1 ea NOTE XX ; Start 07/05/16 at 20:00 Glucose (Glutose) 15 gm Q15M PRN PO DECREASED GLUCOSE; Start 07/05/16 at 20:00 Glucose (Glutose) 22.5 gm Q15M PRN PO DECREASED GLUCOSE; Start 07/05/16 at 20: 00 Dextrose (D50w Syringe) 25 ml Q15M PRN IV DECREASED GLUCOSE; Start 07/05/16 at 20:00 Dextrose (D50w Syringe) 50 ml Q15M PRN IV DECREASED GLUCOSE; Start 07/05/16 at 20:00 Glucagon (Glucagen) 1 mg Q15M PRN IM DECREASED GLUCOSE; Start 07/05/16 at 20:00 Glucose (Glutose) 15 gm Q15M PRN BUCCAL DECREASED GLUCOSE; Start 07/05/16 at 20 :00 Morphine Sulfate (morphine) 4 mg Q4H PRN IV PAIN Last administered on 01:10; Admin Dose 4 MG; Start 07/05/16 at 22:00 Metoprolol Tartrate 25 mg 25 mg BID PO Last administered on 07/08/16 09:17; Admin Dose 25 MG; Start 07/06/16 at 09:00 Dopamine HCl/ Dextrose 250 ml @ 7.35 mls/hr TITRATE IV ; Start 07/06/16 at 22: 00 Caspofungin/ Sodium Chloride (Cancidas/NS) 250 ml @ 250 mls/hr Q24H IVPB Last administered on 07/07/16 14:05; Admin Dose 250 MLS/HR; Start 07/07/16 at 14:00 JAC DAVIS MD Jul 08, 2016 11:56
--- NOTE | 2016-07-08 11:58 | PN ---
DATE: 07/08/2016 INFECTIOUS DISEASE PROGRESS NOTE SUBJECTIVE: No acute events. No fevers. The patient is awake, restless and confused, in no distre ss. Temperature 98.7, pulse 96, respirations 20, blood pressure 140/87, saturations 100 on room air . INDWELLINGS: [place], rectal tube, PEG, PICC line. LABORATORY DATA: WBC 5.9, H and H 7.6 and 24.7, platelets 65. No shift, no bands. BUN 17, creatin ine 0.70. PHYSICAL EXAMINATION: GENERAL: This is a chronically ill-appearing, well-developed, elderly man, who is awake, confused, in no distress. HEENT: Head atraumatic, normocephalic. Sclerae are anicteric. Buccal mucosa dry. NECK: Supple. CHEST: Chest rise is symmetrical. Breath sounds clear, diminished to the bases. HEART: S1, S2. ABDOMEN: Obese, soft. Bowel tones hypoactive. EXTREMITIES: With bilateral edema. SKIN: Positive for anasarca. ASSESSMENT: 1. Status post shock. 2. Anemia, status post gastrointestinal bleeding. 3. Dorina albicans urinary tract infection. 4. Alcoholic liver cirrhosis. 5. Hepatic encephalopathy. 6. Paroxysmal atrial fibrillation. 7. History of familial Mediterranean fever. PLAN: The patient remains stable, had been off pressors. He is completing treatment with Cancidas. He is being followed by multiple consultants. Pending transfer to the med/surg floor. Dictated By: STACIE TAMEZ CONSULTING TECHNICAL DIRECTOR for RILEY TORRES/RICK Conf#: [id number] DID#: [id number]
--- NOTE | 2016-07-08 12:16 | CONS ---
Date/Time of Note Date/Time of Note DATE: 07/08/16 TIME: 12:13 Assessment/Plan Assessment/Plan Chief Complaint/Hosp Course IMPRESSION: 1. Paroxysmal atrial fibrillation/atrial flutter-now SR on PO amio 2. Abnormal electrocardiogram. 3. Hypotension, now improved.-tolerating low dose BB 4. Gastrointestinal bleed.-s/p EGD with esophageal ulcers/varices s/p banding with ongoing GIB at this time 5. Cirrhosiss/p banding of varices 6. Encephalopathy-ongoing 7. Anemia-worsening 8. Hypernatremia 9. Coagulopathy 10.Fever 11.PNA 12.ARF-improved 14.Hypotension-improved off pressors Recc: -Tele -Continue amiodarone PO as patient able to take -Continue BB as tolerated -No asa/systemic anti-coag secondary to anemia/GIB -Follow MS closely -Follow Hgb closely -F/U cx data and continue abx's -Continue protonix/lactulose -Free water for increased na Problems: Consultation Date/Type/Reason Admit Date/Time Jun 09, 2016 at 04:01 Initial Consult Date 06/09/16 Type of Consultation: Cardiology Reason for Consultation PAF/AFL Referring Provider: MAURY BENITEZ MD Exam/Review of Systems Vital Signs Vitals Vital Signs Date Time Temp Pulse Resp B/P Pulse Ox O2 Delivery O2 Flow Rate FiO2 07/08/16 09:00 96 21 140/87 100 Room Air 07/08/16 08:00 2.0 07/08/16 07:30 98.7 07/06/16 23:42 21 Intake and Output 07/07/16 07/07/16 07/08/16 15:00 23:00 07:00 Intake Total 1360 ml 1520 ml 980 ml Output Total 285 ml 1205 ml 180 ml Balance 1075 ml 315 ml 800 ml Exam Review of Systems: CONSTITUTIONAL: No fevers, chills. PULMONARY: No sob CARDIOVASCULAR: No chest pain/palpitations GASTROINTESTINAL: No nausea/vomiting. GENITOURINARY: No hematuria/dysuria. MUSCULOSKELETAL: No myagias/arthalgias. PSYCHIATRIC: The patient denies depression. NEUROLOGIC: lethargic/confusion Constitutional: alert Psych: confusion Head: normocephalic ENMT: mucosa pink and moist Neck: jvd (9 cm water), supple Respiratory: diminished breath sounds Cardiovascular: regular rate and rhythm Gastrointestinal: non-tender, soft Musculoskeletal: muscle tone (normal) Extremities: edema (none) Neurological: confused, lethargic Results Result Diagram: 07/08/16 0442 07/08/16441 Results 24 hrs Laboratory Tests Test 07/07/16 13:19 07/08/16 04:42 07/08/16 05:00 Bedside Glucose 160 White Blood Count 5.9 Red Blood Count 2.64 L Hemoglobin 7.6 L Hematocrit 24.7 L Mean Corpuscular Volume 93.6 Mean Corpuscular Hemoglobin 28.8 L Mean Corpuscular Hemoglobin Concent 30.8 L Red Cell Distribution Width 18.8 H Platelet Count 65 L Mean Platelet Volume 11.3 H Neutrophils % 71.6 Lymphocytes % 14.2 L Monocytes % 8.3 Eosinophils % 2.0 Basophils % 0.2 Nucleated Red Blood Cells % 0.3 H Neutrophils # 4.2 Lymphocytes # 0.8 Monocytes # 0.5 Eosinophils # 0.1 Basophils # 0.0 Nucleated Red Blood Cells # 0.0 Prothrombin Time 16.9 H Prothrombin Time Ratio 1.3 INR International Normalized Ratio 1.37 Activated Partial Thromboplast Time 31.5 Sodium Level 145 H Potassium Level 4.1 Chloride Level 115 H Carbon Dioxide Level 23 Anion Gap 11 Blood Urea Nitrogen 17 Creatinine 0.70 Glucose Level 212 Calcium Level 7.7 L Total Bilirubin 0.5 Direct Bilirubin 0.00 Indirect Bilirubin 0.5 Aspartate Amino Transf (AST/SGOT) 38 Alanine Aminotransferase (ALT/SGPT) 33 Alkaline Phosphatase 136 H Total Protein 5.2 L Albumin 2.3 L Globulin 2.90 Albumin/Globulin Ratio 0.79 Blood Gas Specimen Source Blood arterial Arterial Blood Date Drawn 07/08/2016 5:40:13 AM Arterial Blood pH (Temp corrected) 7.464 H Arterial Blood pCO2 (Temp correct) 30.7 L Arterial Blood pO2 (Temp corrected) 64.9 L Arterial Blood HCO3 21.5 L Arterial Blood Base Excess -1.7 Arterial Blood Oxygen Saturation 92.0 L Adelso Test ACCEPTAB Arterial Blood Gas Puncture Site Right Radial Arterial Blood Carboxyhemoglobin 0.3 Arterial Blood Methemoglobin 0.3 Blood Gas A-a O2 Differential 48.1 H Oxyhemoglobin Percent 91.4 L Total Hemoglobin 8.9 L Blood Gas Temperature 37.0 Blood Gas Actual Respiration Rate 18 Blood Gas Modality ROOM AIR FiO2 21.0 Blood Gas Notified Whom Blood Gas Notified Time 07/08/2016 5:48:04 AM Medications Medications Current Medications Ondansetron HCl (Zofran Inj) 4 mg Q6H PRN IV NAUSEA AND/OR VOMITING; Start 06/09 at 04:30 Dutasteride (Avodart) 0.5 mg AM PO Last administered on 07/08/16 09:17; Admin Dose 0.5 MG; Start 06/09/16 at 09:00 Finasteride (Proscar) 5 mg AM PO Last administered on 07/08/16 09:17; Admin Dose 5 MG; Start 06/09/16 at 09:00 Levothyroxine Sodium (Synthroid) 50 mcg DAILY@06 PO Last administered on 06:07; Admin Dose 50 MCG; Start 06/09/16 at 06:00 Rifaximin (Xifaxan) 550 mg BID PO Last administered on 07/08/16 09:17; Admin Dose 550 MG; Start 06/11/16 at 14:30 Eye Lubricant (Artificial Tears Oph) 2 drop QID BOTH EYES Last administered on 07/07/16 20:42; Admin Dose 2 DROP; Start 06/12/16 at 13:00 Hydralazine HCl (Apresoline) 10 mg Q2H PRN IV SBP>170; Start 06/12/16 at 17:00 Acetaminophen (Tylenol Liquid) 650 mg Q4H PRN NGT PAIN AND OR ELEVATED TEMP Last administered on 07/07/16 19:02; Admin Dose 650 MG; Start 06/17/16 at 12:30 Lactulose (Enulose) 30 gm QID PO Last administered on 07/08/16 09:26; Admin Dose 20 GM; Start 06/24/16 at 21:30 Febuxostat (Uloric) 40 mg DAILY PO Last administered on 07/08/16 09:17; Admin Dose 40 MG; Start 06/25/16 at 15:00 Colchicine (Colchicine) 0.6 mg TID PRN PO gout pain Last administered on 22:45; Admin Dose 0.6 MG; Start 06/25/16 at 21:00 Lorazepam (Ativan) 1 mg Q6H PRN IV ANXIETY Last administered on 07/08/16 04:38 ; Admin Dose 1 MG; Start 06/25/16 at 18:30 Prednisone (Prednisone) 40 mg DAILY GTB Last administered on 07/08/16 09:16; Admin Dose 40 MG; Start 06/27/16 at 14:30 Metoprolol Tartrate (Lopressor) 5 mg Q4H PRN IV HR>110 Last administered on 15:37; Admin Dose 5 MG; Start 06/28/16 at 16:00 Amiodarone HCl 200 mg 200 mg BID NGT Last administered on 07/08/16 09:17; Admin Dose 200 MG; Start 06/28/16 at 21:00 Potassium Chloride/Dextrose (D5W + KCl 20 Meq) 1,000 ml @ 50 mls/hr Q20H IV Last administered on 07/08/16 05:35; Admin Dose 50 MLS/HR; Start 07/02/16 at 20 :00 IV Flush 10 ml 10 ml PRN PRN IV IV PROTOCOL; Start 07/02/16 at 19:30 Pantoprazole/ Sodium Chloride (Protonix Iv/NS) 100 ml @ 10 mls/hr Q10H IV Last administered on 07/08/16 10:14; Admin Dose 10 MLS/HR; Start 07/03/16 at 12 :00 Tamsulosin HCl (Flomax) 0.4 mg HS PO Last administered on 07/07/16 20:41; Admin Dose 0.4 MG; Start 07/03/16 at 21:00 Miscellaneous Information 1 ea NOTE XX ; Start 07/05/16 at 20:00 Glucose (Glutose) 15 gm Q15M PRN PO DECREASED GLUCOSE; Start 07/05/16 at 20:00 Glucose (Glutose) 22.5 gm Q15M PRN PO DECREASED GLUCOSE; Start 07/05/16 at 20: 00 Dextrose (D50w Syringe) 25 ml Q15M PRN IV DECREASED GLUCOSE; Start 07/05/16 at 20:00 Dextrose (D50w Syringe) 50 ml Q15M PRN IV DECREASED GLUCOSE; Start 07/05/16 at 20:00 Glucagon (Glucagen) 1 mg Q15M PRN IM DECREASED GLUCOSE; Start 07/05/16 at 20:00 Glucose (Glutose) 15 gm Q15M PRN BUCCAL DECREASED GLUCOSE; Start 07/05/16 at 20 :00 Morphine Sulfate (morphine) 4 mg Q4H PRN IV PAIN Last administered on 01:10; Admin Dose 4 MG; Start 07/05/16 at 22:00 Metoprolol Tartrate 25 mg 25 mg BID PO Last administered on 07/08/16 09:17; Admin Dose 25 MG; Start 07/06/16 at 09:00 Dopamine HCl/ Dextrose 250 ml @ 7.35 mls/hr TITRATE IV ; Start 07/06/16 at 22: 00 Caspofungin/ Sodium Chloride (Cancidas/NS) 250 ml @ 250 mls/hr Q24H IVPB Last administered on 07/07/16 14:05; Admin Dose 250 MLS/HR; Start 07/07/16 at 14:00 ANGELES ODONNELL Jul 08, 2016 12:16
[2016-07-08] MEDS: CASPOFUNGIN 50 MG in SOD CHLORIDE 0.9% 250 ML IVPB SCH (13:09)
--- NOTE | 2016-07-08 21:03 | CONS ---
Date/Time of Note Date/Time of Note DATE: 07/08/16 TIME: 21:00 Assessment/Plan Assessment/Plan Chief Complaint/Hosp Course Anemia - COMPLEX, MULTIFACTORIAL WITH COMPONENT ACD, ACUTE BLOOD LOSS AND SEVERE IRON DEFICIENCY IN THE PAST * Esophageal variceal bleeding/post EVL * CONT TO MONITOR BLOOD COUNT CLOSELY * OBSERVE FOR BLEEDING AND HEMOLYSIS * PRBC NEEDED Alcoholic cirrhosis * Post variceal bleeding/post EVL * Portal encephalopathy * Ascites * Unsafe swallowing/failed swallow eval/high risk for aspiration * POST EGD plus PEG. * POST paracenteses prior to procedure. * transfer to tertiary center for transplant,process started Coagulopathy VIT K POST FFP PRIOR TO PROCEDURE Problems: Consultation Date/Type/Reason Admit Date/Time Jun 09, 2016 at 04:01 Initial Consult Date 06/09/16 Type of Consultation: HEMEON Referring Provider: MAURY BENITEZ MD 24 HR Interval Summary Free Text/Dictation ALL NOTED NO NEW EVENTS COUNT ON LOW SIDE NO BLEEDING Exam/Review of Systems Vital Signs Vitals Vital Signs Date Time Temp Pulse Resp B/P Pulse Ox O2 Delivery O2 Flow Rate FiO2 07/08/16 19:00 65 14 114/62 98 Nasal Cannula 07/08/16 16:00 98.7 07/08/16 08:00 2.0 07/06/16 23:42 21 Intake and Output 07/07/16 07/07/16 07/08/16 15:00 23:00 07:00 Intake Total 1360 ml 1520 ml 1030 ml Output Total 285 ml 1205 ml 180 ml Balance 1075 ml 315 ml 850 ml Exam Constitutional: other (confused) Psych: confusion Neck: supple Respiratory: clear to auscultation, normal air movement Cardiovascular: nl pulses, regular rate and rhythm Gastrointestinal: non-tender (g tube in placed ,no bleeding), soft Musculoskeletal: nl extremities to inspection Results Result Diagram: 07/08/16 0442 07/08/16 0442 Results 24 hrs Laboratory Tests Test 07/08/16 04:42 07/08/16 05:00 White Blood Count 5.9 Red Blood Count 2.64 L Hemoglobin 7.6 L Hematocrit 24.7 L Mean Corpuscular Volume 93.6 Mean Corpuscular Hemoglobin 28.8 L Mean Corpuscular Hemoglobin Concent 30.8 L Red Cell Distribution Width 18.8 H Platelet Count 65 L Mean Platelet Volume 11.3 H Neutrophils % 71.6 Lymphocytes % 14.2 L Monocytes % 8.3 Eosinophils % 2.0 Basophils % 0.2 Nucleated Red Blood Cells % 0.3 H Neutrophils # 4.2 Lymphocytes # 0.8 Monocytes # 0.5 Eosinophils # 0.1 Basophils # 0.0 Nucleated Red Blood Cells # 0.0 Prothrombin Time 16.9 H Prothrombin Time Ratio 1.3 INR International Normalized Ratio 1.37 Activated Partial Thromboplast Time 31.5 Sodium Level 145 H Potassium Level 4.1 Chloride Level 115 H Carbon Dioxide Level 23 Anion Gap 11 Blood Urea Nitrogen 17 Creatinine 0.70 Glucose Level 212 Calcium Level 7.7 L Total Bilirubin 0.5 Direct Bilirubin 0.00 Indirect Bilirubin 0.5 Aspartate Amino Transf (AST/SGOT) 38 Alanine Aminotransferase (ALT/SGPT) 33 Alkaline Phosphatase 136 H Total Protein 5.2 L Albumin 2.3 L Globulin 2.90 Albumin/Globulin Ratio 0.79 Blood Gas Specimen Source Blood arterial Arterial Blood Date Drawn 07/08/2016 5:40:13 AM Arterial Blood pH (Temp corrected) 7.464 H Arterial Blood pCO2 (Temp correct) 30.7 L Arterial Blood pO2 (Temp corrected) 64.9 L Arterial Blood HCO3 21.5 L Arterial Blood Base Excess -1.7 Arterial Blood Oxygen Saturation 92.0 L Adelso Test ACCEPTAB Arterial Blood Gas Puncture Site Right Radial Arterial Blood Carboxyhemoglobin 0.3 Arterial Blood Methemoglobin 0.3 Blood Gas A-a O2 Differential 48.1 H Oxyhemoglobin Percent 91.4 L Total Hemoglobin 8.9 L Blood Gas Temperature 37.0 Blood Gas Actual Respiration Rate 18 Blood Gas Modality ROOM AIR FiO2 21.0 Blood Gas Notified Whom Blood Gas Notified Time 07/08/2016 5:48:04 AM Medications Medications Current Medications Ondansetron HCl (Zofran Inj) 4 mg Q6H PRN IV NAUSEA AND/OR VOMITING; Start 06/09 at 04:30 Dutasteride (Avodart) 0.5 mg AM PO Last administered on 07/08/16 09:17; Admin Dose 0.5 MG; Start 06/09/16 at 09:00 Finasteride (Proscar) 5 mg AM PO Last administered on 07/08/16 09:17; Admin Dose 5 MG; Start 06/09/16 at 09:00 Levothyroxine Sodium (Synthroid) 50 mcg DAILY@06 PO Last administered on 06:07; Admin Dose 50 MCG; Start 06/09/16 at 06:00 Rifaximin (Xifaxan) 550 mg BID PO Last administered on 07/08/16 09:17; Admin Dose 550 MG; Start 06/11/16 at 14:30 Eye Lubricant (Artificial Tears Oph) 2 drop QID BOTH EYES Last administered on 07/07/16 20:42; Admin Dose 2 DROP; Start 06/12/16 at 13:00 Hydralazine HCl (Apresoline) 10 mg Q2H PRN IV SBP>170; Start 06/12/16 at 17:00 Acetaminophen (Tylenol Liquid) 650 mg Q4H PRN NGT PAIN AND OR ELEVATED TEMP Last administered on 07/07/16 19:02; Admin Dose 650 MG; Start 06/17/16 at 12:30 Lactulose (Enulose) 30 gm QID PO Last administered on 07/08/16 17:30; Admin Dose 30 GM; Start 06/24/16 at 21:30 Febuxostat (Uloric) 40 mg DAILY PO Last administered on 07/08/16 09:17; Admin Dose 40 MG; Start 06/25/16 at 15:00 Colchicine (Colchicine) 0.6 mg TID PRN PO gout pain Last administered on 22:45; Admin Dose 0.6 MG; Start 06/25/16 at 21:00 Lorazepam (Ativan) 1 mg Q6H PRN IV ANXIETY Last administered on 07/08/16 04:38 ; Admin Dose 1 MG; Start 06/25/16 at 18:30 Prednisone (Prednisone) 40 mg DAILY GTB Last administered on 07/08/16 09:16; Admin Dose 40 MG; Start 06/27/16 at 14:30 Metoprolol Tartrate (Lopressor) 5 mg Q4H PRN IV HR>110 Last administered on 15:37; Admin Dose 5 MG; Start 06/28/16 at 16:00 Amiodarone HCl 200 mg 200 mg BID NGT Last administered on 07/08/16 09:17; Admin Dose 200 MG; Start 06/28/16 at 21:00 Potassium Chloride/Dextrose (D5W + KCl 20 Meq) 1,000 ml @ 50 mls/hr Q20H IV Last administered on 07/08/16 05:35; Admin Dose 50 MLS/HR; Start 07/02/16 at 20 :00 IV Flush 10 ml 10 ml PRN PRN IV IV PROTOCOL; Start 07/02/16 at 19:30 Pantoprazole/ Sodium Chloride (Protonix Iv/NS) 100 ml @ 10 mls/hr Q10H IV Last administered on 07/08/16 10:14; Admin Dose 10 MLS/HR; Start 07/03/16 at 12 :00 Tamsulosin HCl (Flomax) 0.4 mg HS PO Last administered on 07/07/16 20:41; Admin Dose 0.4 MG; Start 07/03/16 at 21:00 Miscellaneous Information 1 ea NOTE XX ; Start 07/05/16 at 20:00 Glucose (Glutose) 15 gm Q15M PRN PO DECREASED GLUCOSE; Start 07/05/16 at 20:00 Glucose (Glutose) 22.5 gm Q15M PRN PO DECREASED GLUCOSE; Start 07/05/16 at 20: 00 Dextrose (D50w Syringe) 25 ml Q15M PRN IV DECREASED GLUCOSE; Start 07/05/16 at 20:00 Dextrose (D50w Syringe) 50 ml Q15M PRN IV DECREASED GLUCOSE; Start 07/05/16 at 20:00 Glucagon (Glucagen) 1 mg Q15M PRN IM DECREASED GLUCOSE; Start 07/05/16 at 20:00 Glucose (Glutose) 15 gm Q15M PRN BUCCAL DECREASED GLUCOSE; Start 07/05/16 at 20 :00 Morphine Sulfate (morphine) 4 mg Q4H PRN IV PAIN Last administered on 01:10; Admin Dose 4 MG; Start 07/05/16 at 22:00 Metoprolol Tartrate 25 mg 25 mg BID PO Last administered on 07/08/16 09:17; Admin Dose 25 MG; Start 07/06/16 at 09:00 Dopamine HCl/ Dextrose 250 ml @ 7.35 mls/hr TITRATE IV ; Start 07/06/16 at 22: 00 Caspofungin/ Sodium Chloride (Cancidas/NS) 250 ml @ 250 mls/hr Q24H IVPB Last administered on 07/08/16t 13:09; Admin Dose 250 MLS/HR; Start 07/07/16 at 14:00 FAYE RUSHING MD Jul 08, 2016 21:03
[2016-07-08] MEDS: TAMSULOSIN (SR) 0.4 MG CAP PO SCH (21:32)
[2016-07-09] VITALS (17 sets, daily range): BP systolic 115–131; BP diastolic 63–87; PULSE 68–82; RESP 15–20
[2016-07-09] MEDS: D5W + KCL 20 MEQ 1,000 ML IV SCH ×2 (02:22→12:00)
[2016-07-09] MEDS: morphine 4 MG/ML VIAL IV PRN (02:53)
[2016-07-09 05:58] LABS: ADD SCAN DIFF NO
[2016-07-09] MEDS: LEVOTHYROXINE 50 MCG TAB PO SCH (06:06)
[2016-07-09 06:07] LABS: ABNORMAL IP MESSAGE 1; EOSINOPHILS # 0.1 10^3/ul (0.0-0.5); EOSINOPHILS % 2.1 % (0.0-7.0); HEMATOCRIT 23.1 % (42.0-52.0); HEMOGLOBIN 7.2 g/dl (14.0-18.0); LYMPHOCYTES # 0.9 10^3/ul (0.8-2.9); LYMPHOCYTES % 16.1 % (15.0-51.0); MEAN CORPUSCULAR HEMOGLOBIN 29.4 pg (29.0-33.0); MEAN CORPUSCULAR HGB CONC 31.2 g/dl (32.0-37.0); MEAN CORPUSCULAR VOLUME 94.3 fl (82.0-101.0); MEAN PLATELET VOLUME 11.4 fl (7.4-10.4); MONOCYTE # 0.5 10^3/ul (0.3-0.9); MONOCYTES % 8.8 % (0.0-11.0); NEUTROPHIL # 3.8 10^3/ul (1.6-7.5); NEUTROPHILS % 71.7 % (39.0-77.0); NUCLEATED RED BLOOD CELLS% 0.4 /100WBC (0.0-0.0); RED BLOOD COUNT 2.45 10^6/ul (4.70-6.10); RED CELL DISTRIBUTION WIDTH 18.9 % (11.5-14.5); WHITE BLOOD COUNT 5.4 10^3/ul (4.8-10.8)
[2016-07-09 06:21] LABS: ALBUMIN 2.2 g/dl (3.3-4.9)
[2016-07-09 06:22] LABS: POTASSIUM 4.9 mmol/L (3.5-5.1)
[2016-07-09 06:24] LABS: ALBUMIN/GLOBULIN RATIO 0.7; BILIRUBIN,INDIRECT 0.6 mg/dl (0-1.1); BILIRUBIN,TOTAL 0.6 mg/dl (0.2-1.3); CREATININE 0.65 mg/dl (0.61-1.24); TOTAL PROTEIN 5.3 g/dl (6.1-8.1)
[2016-07-09 06:25] LABS: CALCIUM 7.2 mg/dl (8.4-10.2); MAGNESIUM 1.7 mg/dl (1.7-2.5)
[2016-07-09 06:33] LABS: PLATELET COUNT 62 10^3/UL (140-415)
[2016-07-09] MEDS: ARTIFICIAL TEARS 15 ML OPH BOTH EYES SCH ×4 (09:56→20:46)
[2016-07-09] MEDS: FEBUXOSTAT 40 MG TABLET PO SCH (09:57)
[2016-07-09] MEDS: LACTULOSE 30ML CUP PO SCH ×4 (09:57→20:44)
[2016-07-09] MEDS: RIFAXIMIN 550 MG TAB PO SCH ×2 (09:57→20:45)
[2016-07-09] MEDS: FINASTERIDE 5 MG TAB PO SCH (09:57)
[2016-07-09] MEDS: METOPROLOL 25 MG TAB PO SCH ×2 (09:58→20:46)
[2016-07-09] MEDS: predniSONE 20 MG TAB GTB SCH (09:58)
[2016-07-09] MEDS: AMIODARONE 200 MG TAB NGT SCH ×2 (09:58→20:45)
--- NOTE | 2016-07-09 11:48 | CONS ---
Date/Time of Note Date/Time of Note DATE: 07/09/16 TIME: 11:44 Assessment/Plan Assessment/Plan Additional Assessment/Plan Hematochezia Blood in gastrostomy tube Esophageal variceal bleeding/post EVL Anemia secondary to above * S/p repeat EGD 06/30: Post EVL ulcers. Treat with PPI and octreotide drips 24 hours. DC both if no bleeding after 24 hours. Okay to start tube feed. * S/p repeat EGD 07/02: 1. Multiple esophageal ulcers. Post-endoscopic variceal ligation with no active bleeding but positive stigmata of recent bleeding. 2. Gastrostomy tube in place and in good condition. 3. No other bleeding site or potential bleeding site identified. * Monitor hemoglobin every 8 hours, transfuse 2 units for hemoglobin less than 7.5 Alcoholic cirrhosis * Post variceal bleeding/post EVL * Portal encephalopathy * Ascites/Neg U/S * Coagulopathy * manager student services consult in process. Family wants liver transplant and transfer to tertiary center. Unsafe swallowing/failed swallow eval/high risk for aspiration * Post uneventful PEG/Tolerating feedings * EGD with PEG placement 06/28/16: Esophageal ulcers with some old clots in the area, but no active bleeding. Nasogastric tube trauma present. Uneventful percutaneous endoscopic gastrostomy tube placement with placement of [place] 20 gastrostomy tube. Further recommendations depend on clinical course Patient seen in collaboration with Dr. Arce Consultation Date/Type/Reason Admit Date/Time Jun 09, 2016 at 04:01 Initial Consult Date 06/09/16 Type of Consultation: GI Referring Provider: MAURY BENITEZ MD 24 HR Interval Summary Free Text/Dictation Reports abdominal pain Abdominal ultrasound ordered to rule out ascites Hemoglobin is 7.2 1 unit of PRBC ordered Iron profile ordered Exam/Review of Systems Vital Signs Vitals Vital Signs Date Time Temp Pulse Resp B/P Pulse Ox O2 Delivery O2 Flow Rate FiO2 07/09/16 10:03 98.0 80 18 120/65 92 07/09/16 06:00 Room Air 07/08/16 08:00 2.0 07/06/16 23:42 21 Intake and Output 07/08/16 07/08/16 07/09/16 15:00 23:00 07:00 Intake Total 620 ml 750 ml 650 ml Output Total 630 ml 370 ml 225 ml Balance -10 ml 380 ml 425 ml Exam Constitutional: alert, confused well developed Psych: nl mood/affect Head: normocephalic Eyes: EOMI, nl conjunctiva, nl lids ENMT: nl external ears & nose, nl lips & teeth, nl nasal mucosa & septum Respiratory: clear to auscultation, normal air movement Cardiovascular: regular rate and rhythm Gastrointestinal: soft, non-tender Musculoskeletal: nl extremities to inspection Neurological: SMELTER CHARGER II-XII intact Results Result Diagram: 07/09/1643907/09/16439 Results 24 hrs Laboratory Tests Test 07/09/16 04:40 White Blood Count 5.4 Red Blood Count 2.45 L Hemoglobin 7.2 L Hematocrit 23.1 L Mean Corpuscular Volume 94.3 Mean Corpuscular Hemoglobin 29.4 Mean Corpuscular Hemoglobin Concent 31.2 L Red Cell Distribution Width 18.9 H Platelet Count 62 L Mean Platelet Volume 11.4 H Neutrophils % 71.7 Lymphocytes % 16.1 Monocytes % 8.8 Eosinophils % 2.1 Basophils % 0.0 Nucleated Red Blood Cells % 0.4 H Neutrophils # 3.8 Lymphocytes # 0.9 Monocytes # 0.5 Eosinophils # 0.1 Basophils # 0.0 Nucleated Red Blood Cells # 0.0 Sodium Level 136 Potassium Level 4.9 Chloride Level 108 Carbon Dioxide Level 22 Anion Gap 11 Blood Urea Nitrogen 15 Creatinine 0.65 Glucose Level 315 H Calcium Level 7.2 L Magnesium Level 1.7 Total Bilirubin 0.6 Direct Bilirubin 0.00 Indirect Bilirubin 0.6 Aspartate Amino Transf (AST/SGOT) 37 Alanine Aminotransferase (ALT/SGPT) 37 Alkaline Phosphatase 150 H Ammonia 12 Total Protein 5.3 L Albumin 2.2 L Globulin 3.10 Albumin/Globulin Ratio 0.70 Medications Medications Current Medications Ondansetron HCl (Zofran Inj) 4 mg Q6H PRN IV NAUSEA AND/OR VOMITING; Start 06/09 at 04:30 Dutasteride (Avodart) 0.5 mg AM PO Last administered on 07/08/16 09:17; Admin Dose 0.5 MG; Start 06/09/16 at 09:00 Finasteride (Proscar) 5 mg AM PO Last administered on 07/09/16 09:57; Admin Dose 5 MG; Start 06/09/16 at 09:00 Levothyroxine Sodium (Synthroid) 50 mcg DAILY@06 PO Last administered on 06:06; Admin Dose 50 MCG; Start 06/09/16 at 06:00 Rifaximin (Xifaxan) 550 mg BID PO Last administered on 07/09/16 09:57; Admin Dose 550 MG; Start 06/11/16 at 14:30 Eye Lubricant (Artificial Tears Oph) 2 drop QID BOTH EYES Last administered on 07/09/16 09:56; Admin Dose 2 DROP; Start 06/12/16 at 13:00 Hydralazine HCl (Apresoline) 10 mg Q2H PRN IV SBP>170; Start 06/12/16 at 17:00 Acetaminophen (Tylenol Liquid) 650 mg Q4H PRN NGT PAIN AND OR ELEVATED TEMP Last administered on 07/07/16 19:02; Admin Dose 650 MG; Start 06/17/16 at 12:30 Lactulose (Enulose) 30 gm QID PO Last administered on 07/09/16 09:57; Admin Dose 30 GM; Start 06/24/16 at 21:30 Febuxostat (Uloric) 40 mg DAILY PO Last administered on 07/09/16 09:57; Admin Dose 40 MG; Start 06/25/16 at 15:00 Colchicine (Colchicine) 0.6 mg TID PRN PO gout pain Last administered on 22:45; Admin Dose 0.6 MG; Start 06/25/16 at 21:00 Lorazepam (Ativan) 1 mg Q6H PRN IV ANXIETY Last administered on 07/08/16 22:21 ; Admin Dose 1 MG; Start 06/25/16 at 18:30 Prednisone (Prednisone) 40 mg DAILY GTB Last administered on 07/09/16 09:58; Admin Dose 40 MG; Start 06/27/16 at 14:30 Metoprolol Tartrate (Lopressor) 5 mg Q4H PRN IV HR>110 Last administered on 15:37; Admin Dose 5 MG; Start 06/28/16 at 16:00 Amiodarone HCl 200 mg 200 mg BID NGT Last administered on 07/09/16 09:58; Admin Dose 200 MG; Start 06/28/16 at 21:00 Potassium Chloride/Dextrose (D5W + KCl 20 Meq) 1,000 ml @ 50 mls/hr Q20H IV Last administered on 07/09/16 02:22; Admin Dose 50 MLS/HR; Start 07/02/16 at 20 :00 IV Flush 10 ml 10 ml PRN PRN IV IV PROTOCOL; Start 07/02/16 at 19:30 Pantoprazole/ Sodium Chloride (Protonix Iv/NS) 100 ml @ 10 mls/hr Q10H IV Last administered on 07/08/16 23:44; Admin Dose 10 MLS/HR; Start 07/03/16 at 12 :00 Tamsulosin HCl (Flomax) 0.4 mg HS PO Last administered on 07/08/16 21:32; Admin Dose 0.4 MG; Start 07/03/16 at 21:00 Miscellaneous Information 1 ea NOTE XX ; Start 07/05/16 at 20:00 Glucose (Glutose) 15 gm Q15M PRN PO DECREASED GLUCOSE; Start 07/05/16 at 20:00 Glucose (Glutose) 22.5 gm Q15M PRN PO DECREASED GLUCOSE; Start 07/05/16 at 20: 00 Dextrose (D50w Syringe) 25 ml Q15M PRN IV DECREASED GLUCOSE; Start 07/05/16 at 20:00 Dextrose (D50w Syringe) 50 ml Q15M PRN IV DECREASED GLUCOSE; Start 07/05/16 at 20:00 Glucagon (Glucagen) 1 mg Q15M PRN IM DECREASED GLUCOSE; Start 07/05/16 at 20:00 Glucose (Glutose) 15 gm Q15M PRN BUCCAL DECREASED GLUCOSE; Start 07/05/16 at 20 :00 Morphine Sulfate (morphine) 4 mg Q4H PRN IV PAIN Last administered on 02:53; Admin Dose 4 MG; Start 07/05/16 at 22:00 Metoprolol Tartrate 25 mg 25 mg BID PO Last administered on 07/09/16 09:58; Admin Dose 25 MG; Start 07/06/16 at 09:00 Dopamine HCl/ Dextrose 250 ml @ 7.35 mls/hr TITRATE IV ; Start 07/06/16 at 22: 00 Caspofungin/ Sodium Chloride (Cancidas/NS) 250 ml @ 250 mls/hr Q24H IVPB Last administered on 07/08/16 13:09; Admin Dose 250 MLS/HR; Start 07/07/16 at 14:00 KODY SHELDON Jul 09, 2016 11:47
[2016-07-09] MEDS ORDERED: SOD CHLORIDE 0.9% 250 ML IV* ONE (11:49)
--- NOTE | 2016-07-09 12:17 | CONS ---
Date/Time of Note Date/Time of Note DATE: 07/09/16 TIME: 12:15 Assessment/Plan Assessment/Plan Chief Complaint/Hosp Course IMPRESSION: 1. Paroxysmal atrial fibrillation/atrial flutter-now SR on PO amio 2. Abnormal electrocardiogram. 3. Hypotension, now improved.-tolerating low dose BB 4. Gastrointestinal bleed.-s/p EGD with esophageal ulcers/varices s/p banding with ongoing GIB at this time 5. Cirhossis/p banding of varices 6. Encephalopathy-ongoing 7. Anemia-worsening 8. Hypernatremia 9. Coagulopathy 10.Fever 11.PNA 12.ARF-improved 14.Hypotension-improved off pressors Recc: -Tele -Continue amiodarone PO as patient able to take -Continue BB as tolerated -No asa/systemic anti-coag secondary to anemia/GIB -Follow MS closely -Follow Hgb closely -F/U cx data and continue abx's -Continue protonix/lactulose -Free water for increased na Problems: Consultation Date/Type/Reason Admit Date/Time Jun 09, 2016 at 04:01 Initial Consult Date 06/09/16 Type of Consultation: cardiology Reason for Consultation PAFL Referring Provider: MAURY BENITEZ MD Exam/Review of Systems Vital Signs Vitals Vital Signs Date Time Temp Pulse Resp B/P Pulse Ox O2 Delivery O2 Flow Rate FiO2 07/09/16 12:04 70 07/09/16 10:03 98.0 18 120/65 92 07/09/16 06:00 Room Air 07/08/16 08:00 2.0 07/06/16 23:42 21 Intake and Output 07/08/16 07/08/16 07/09/16 15:00 23:00 07:00 Intake Total 620 ml 750 ml 650 ml Output Total 630 ml 370 ml 225 ml Balance -10 ml 380 ml 425 ml Exam Review of Systems: CONSTITUTIONAL: No fevers, chills. PULMONARY: No sob CARDIOVASCULAR: No chest pain/palpitations GASTROINTESTINAL: No nausea/vomiting. GENITOURINARY: No hematuria/dysuria. MUSCULOSKELETAL: No myagias/arthalgias. PSYCHIATRIC: The patient denies depression. NEUROLOGIC: Encephalopathic Constitutional: alert Psych: confusion Head: normocephalic ENMT: mucosa pink and moist Neck: jvd (9 cm water), supple Respiratory: diminished breath sounds (at bases/B) Cardiovascular: regular rate and rhythm Gastrointestinal: non-tender, soft Musculoskeletal: muscle tone (normal) Extremities: edema (none) Neurological: confused, lethargic Results Result Diagram: 07/09/1643907/09/16439 Results 24 hrs Laboratory Tests Test 07/09/16 04:40 White Blood Count 5.4 Red Blood Count 2.45 L Hemoglobin 7.2 L Hematocrit 23.1 L Mean Corpuscular Volume 94.3 Mean Corpuscular Hemoglobin 29.4 Mean Corpuscular Hemoglobin Concent 31.2 L Red Cell Distribution Width 18.9 H Platelet Count 62 L Mean Platelet Volume 11.4 H Neutrophils % 71.7 Lymphocytes % 16.1 Monocytes % 8.8 Eosinophils % 2.1 Basophils % 0.0 Nucleated Red Blood Cells % 0.4 H Neutrophils # 3.8 Lymphocytes # 0.9 Monocytes # 0.5 Eosinophils # 0.1 Basophils # 0.0 Nucleated Red Blood Cells # 0.0 Sodium Level 136 Potassium Level 4.9 Chloride Level 108 Carbon Dioxide Level 22 Anion Gap 11 Blood Urea Nitrogen 15 Creatinine 0.65 Glucose Level 315 H Calcium Level 7.2 L Magnesium Level 1.7 Total Bilirubin 0.6 Direct Bilirubin 0.00 Indirect Bilirubin 0.6 Aspartate Amino Transf (AST/SGOT) 37 Alanine Aminotransferase (ALT/SGPT) 37 Alkaline Phosphatase 150 H Ammonia 12 Total Protein 5.3 L Albumin 2.2 L Globulin 3.10 Albumin/Globulin Ratio 0.70 Medications Medications Current Medications Ondansetron HCl (Zofran Inj) 4 mg Q6H PRN IV NAUSEA AND/OR VOMITING; Start 06/09 at 04:30 Dutasteride (Avodart) 0.5 mg AM PO Last administered on 07/08/16 09:17; Admin Dose 0.5 MG; Start 06/09/16 at 09:00 Finasteride (Proscar) 5 mg AM PO Last administered on 07/09/16 09:57; Admin Dose 5 MG; Start 06/09/16 at 09:00 Levothyroxine Sodium (Synthroid) 50 mcg DAILY@06 PO Last administered on 06:06; Admin Dose 50 MCG; Start 06/09/16 at 06:00 Rifaximin (Xifaxan) 550 mg BID PO Last administered on 07/09/16 09:57; Admin Dose 550 MG; Start 06/11/16 at 14:30 Eye Lubricant (Artificial Tears Oph) 2 drop QID BOTH EYES Last administered on 07/09/16 09:56; Admin Dose 2 DROP; Start 06/12/16 at 13:00 Hydralazine HCl (Apresoline) 10 mg Q2H PRN IV SBP>170; Start 06/12/16 at 17:00 Acetaminophen (Tylenol Liquid) 650 mg Q4H PRN NGT PAIN AND OR ELEVATED TEMP Last administered on 07/07/16 19:02; Admin Dose 650 MG; Start 06/17/16 at 12:30 Lactulose (Enulose) 30 gm QID PO Last administered on 07/09/16 09:57; Admin Dose 30 GM; Start 06/24/16 at 21:30 Febuxostat (Uloric) 40 mg DAILY PO Last administered on 07/09/16 09:57; Admin Dose 40 MG; Start 06/25/16 at 15:00 Colchicine (Colchicine) 0.6 mg TID PRN PO gout pain Last administered on 22:45; Admin Dose 0.6 MG; Start 06/25/16 at 21:00 Lorazepam (Ativan) 1 mg Q6H PRN IV ANXIETY Last administered on 07/08/16 22:21 ; Admin Dose 1 MG; Start 06/25/16 at 18:30 Prednisone (Prednisone) 40 mg DAILY GTB Last administered on 07/09/16 09:58; Admin Dose 40 MG; Start 06/27/16 at 14:30 Metoprolol Tartrate (Lopressor) 5 mg Q4H PRN IV HR>110 Last administered on 15:37; Admin Dose 5 MG; Start 06/28/16 at 16:00 Amiodarone HCl 200 mg 200 mg BID NGT Last administered on 07/09/16 09:58; Admin Dose 200 MG; Start 06/28/16 at 21:00 Potassium Chloride/Dextrose (D5W + KCl 20 Meq) 1,000 ml @ 50 mls/hr Q20H IV Last administered on 07/09/16 02:22; Admin Dose 50 MLS/HR; Start 07/02/16 at 20 :00 IV Flush 10 ml 10 ml PRN PRN IV IV PROTOCOL; Start 07/02/16 at 19:30 Pantoprazole/ Sodium Chloride (Protonix Iv/NS) 100 ml @ 10 mls/hr Q10H IV Last administered on 07/08/16 23:44; Admin Dose 10 MLS/HR; Start 07/03/16 at 12 :00 Tamsulosin HCl (Flomax) 0.4 mg HS PO Last administered on 07/08/16 21:32; Admin Dose 0.4 MG; Start 07/03/16 at 21:00 Miscellaneous Information 1 ea NOTE XX ; Start 07/05/16 at 20:00 Glucose (Glutose) 15 gm Q15M PRN PO DECREASED GLUCOSE; Start 07/05/16 at 20:00 Glucose (Glutose) 22.5 gm Q15M PRN PO DECREASED GLUCOSE; Start 07/05/16 at 20: 00 Dextrose (D50w Syringe) 25 ml Q15M PRN IV DECREASED GLUCOSE; Start 07/05/16 at 20:00 Dextrose (D50w Syringe) 50 ml Q15M PRN IV DECREASED GLUCOSE; Start 07/05/16 at 20:00 Glucagon (Glucagen) 1 mg Q15M PRN IM DECREASED GLUCOSE; Start 07/05/16 at 20:00 Glucose (Glutose) 15 gm Q15M PRN BUCCAL DECREASED GLUCOSE; Start 07/05/16 at 20 :00 Morphine Sulfate (morphine) 4 mg Q4H PRN IV PAIN Last administered on 02:53; Admin Dose 4 MG; Start 07/05/16 at 22:00 Metoprolol Tartrate 25 mg 25 mg BID PO Last administered on 07/09/16 09:58; Admin Dose 25 MG; Start 07/06/16 at 09:00 Dopamine HCl/ Dextrose 250 ml @ 7.35 mls/hr TITRATE IV ; Start 07/06/16 at 22: 00 Caspofungin/ Sodium Chloride (Cancidas/NS) 250 ml @ 250 mls/hr Q24H IVPB Last administered on 07/08/16 13:09; Admin Dose 250 MLS/HR; Start 07/07/16 at 14:00 ANGELES ODONNELL Jul 09, 2016 12:17
--- NOTE | 2016-07-09 12:22 | RADRPT ---
PROCEDURE: US Abdomen limited . CLINICAL INDICATION: Ascites TECHNIQUE: Multiple real-time images were acquired of the patient's abdomen utilizing a high resol ution transducer. COMPARISON: None FINDINGS: There is a small amount of ascites, not enough for paracentesis. RPTAT: AA IMPRESSION: Small amount of ascites. Jhoan Mccrary Physician Date Time Electronically viewed and signed by Jhoan Mccrary Physician on 07/09/2016 12:22 RA/
[2016-07-09] MEDS: PANTOPRAZOLE IV 80 MG in SOD CHLORIDE 0.9% 100 ML IV SCH ×2 (12:50→18:00)
[2016-07-09] MEDS: CASPOFUNGIN 50 MG in SOD CHLORIDE 0.9% 250 ML IVPB SCH (13:42)
[2016-07-09] MEDS: DUTASTERIDE 0.5 MG CAP PO SCH (13:42)
--- NOTE | 2016-07-09 13:57 | PN ---
Date/Time of Note Date/Time of Note DATE: 07/09/16 TIME: 13:55 Assessment/Plan VTE Prophylaxis VTE Prophylaxis Intervention: SCD's Lines/Catheters IV Catheter Type (from Nrs): PICC Line Central line still needed: Yes Urinary Cath still in place: Yes Reason Cath still needed: other (indicate) Assessment/Plan Chief Complaint/Hosp Course Assessment/Plan 1. Esophageal variceal bleeding/post EVL, follow up with GI, continue PPI, continue octreotide, repeat endoscopy demonstrated multiple esophageal ulcer 3. Paroxysmal atrial fibrillation/atrial flutter, now back in sinus rhythm and remains thus - now in sinus - better rate controlled now. 4. REC NSVT - add BB as toleated - BEA stable now - no new episodes now - no ectopy noted today. 5. Resolving sepsis, on multiple antibiotics, follow up with ID 6. Encephalopathy-likely secondary to history of cirrhosis and alcohol abuse, no acute changes, continue lactulose 7. Anemia, , status post transfusions- H/H stable. Continue to monitor, transfuse as per protocol 8. Hypernatremia. follow up with electrolytes, start free water via G-tube 9. Coagulopathy, likely secondary to his history of cirrhosis and alcohol abuse 10. PEG, G-tube feeding Continue to monitor in telemetry floor PT OT eval and treat Plan to transfer to care home facility when accepted Problems: Subjective 24 Hr Interval Summary Free Text/Dictation Patient is more awake and alert Tolerating PEG tube feeding No nausea vomiting Exam/Review of Systems Vital Signs Vitals Vital Signs Date Time Temp Pulse Resp B/P Pulse Ox O2 Delivery O2 Flow Rate FiO2 07/09/16 12:04 70 07/09/16 10:03 98.0 18 120/65 92 07/09/16 06:00 Room Air 07/08/16 08:00 2.0 07/06/16 23:42 21 Intake and Output 07/08/16 07/08/16 07/09/16 15:00 23:00 07:00 Intake Total 620 ml 750 ml 650 ml Output Total 630 ml 370 ml 225 ml Balance -10 ml 380 ml 425 ml Exam General: The patient is moderately overweight, Not in acute distress. HEENT: Atraumatic, normocephalic. The pupils are equal and round . Neck: Supple with full range of motion. Chest: Normal expansion of the thorax during inspiration Lungs: Clear to auscultation bilaterally Heart: Normal S1-S2, Regular rhythm and rate. Abdomen: Abdominal contour is morbidly obese, soft , nontender, nondistended , bowel sounds are present. PEG tube in place Extremities: Normal to inspection, no edema no cyanosis Neurologic: Awake and alert, although has episodes of agitation Results Result Diagram: 07/09/16 0440 07/09/16 0440 Results 24 hrs Laboratory Tests Test 07/09/16 04:40 White Blood Count 5.4 Red Blood Count 2.45 L Hemoglobin 7.2 L Hematocrit 23.1 L Mean Corpuscular Volume 94.3 Mean Corpuscular Hemoglobin 29.4 Mean Corpuscular Hemoglobin Concent 31.2 L Red Cell Distribution Width 18.9 H Platelet Count 62 L Mean Platelet Volume 11.4 H Neutrophils % 71.7 Lymphocytes % 16.1 Monocytes % 8.8 Eosinophils % 2.1 Basophils % 0.0 Nucleated Red Blood Cells % 0.4 H Neutrophils # 3.8 Lymphocytes # 0.9 Monocytes # 0.5 Eosinophils # 0.1 Basophils # 0.0 Nucleated Red Blood Cells # 0.0 Sodium Level 136 Potassium Level 4.9 Chloride Level 108 Carbon Dioxide Level 22 Anion Gap 11 Blood Urea Nitrogen 15 Creatinine 0.65 Glucose Level 315 H Calcium Level 7.2 L Magnesium Level 1.7 Total Bilirubin 0.6 Direct Bilirubin 0.00 Indirect Bilirubin 0.6 Aspartate Amino Transf (AST/SGOT) 37 Alanine Aminotransferase (ALT/SGPT) 37 Alkaline Phosphatase 150 H Ammonia 12 Total Protein 5.3 L Albumin 2.2 L Globulin 3.10 Albumin/Globulin Ratio 0.70 Medications Medications Current Medications Ondansetron HCl (Zofran Inj) 4 mg Q6H PRN IV NAUSEA AND/OR VOMITING; Start 06/09 at 04:30 Dutasteride (Avodart) 0.5 mg AM PO Last administered on 07/09/16 13:42; Admin Dose 0.5 MG; Start 06/09/16 at 09:00 Finasteride (Proscar) 5 mg AM PO Last administered on 07/09/16 09:57; Admin Dose 5 MG; Start 06/09/16 at 09:00 Levothyroxine Sodium (Synthroid) 50 mcg DAILY@06 PO Last administered on 06:06; Admin Dose 50 MCG; Start 06/09/16 at 06:00 Rifaximin (Xifaxan) 550 mg BID PO Last administered on 07/09/16 09:57; Admin Dose 550 MG; Start 06/11/16 at 14:30 Eye Lubricant (Artificial Tears Oph) 2 drop QID BOTH EYES Last administered on 07/09/16 12:51; Admin Dose 2 DROP; Start 06/12/16 at 13:00 Hydralazine HCl (Apresoline) 10 mg Q2H PRN IV SBP>170; Start 06/12/16 at 17:00 Acetaminophen (Tylenol Liquid) 650 mg Q4H PRN NGT PAIN AND OR ELEVATED TEMP Last administered on 07/07/16 19:02; Admin Dose 650 MG; Start 06/17/16 at 12:30 Lactulose (Enulose) 30 gm QID PO Last administered on 07/09/16 13:41; Admin Dose 30 GM; Start 06/24/16 at 21:30 Febuxostat (Uloric) 40 mg DAILY PO Last administered on 07/09/16 09:57; Admin Dose 40 MG; Start 06/25/16 at 15:00 Colchicine (Colchicine) 0.6 mg TID PRN PO gout pain Last administered on 22:45; Admin Dose 0.6 MG; Start 06/25/16 at 21:00 Lorazepam (Ativan) 1 mg Q6H PRN IV ANXIETY Last administered on 07/08/16 22:21 ; Admin Dose 1 MG; Start 06/25/16 at 18:30 Prednisone (Prednisone) 40 mg DAILY GTB Last administered on 07/09/16 09:58; Admin Dose 40 MG; Start 06/27/16 at 14:30 Metoprolol Tartrate (Lopressor) 5 mg Q4H PRN IV HR>110 Last administered on 15:37; Admin Dose 5 MG; Start 06/28/16 at 16:00 Amiodarone HCl 200 mg 200 mg BID NGT Last administered on 07/09/16 09:58; Admin Dose 200 MG; Start 06/28/16 at 21:00 Potassium Chloride/Dextrose (D5W + KCl 20 Meq) 1,000 ml @ 50 mls/hr Q20H IV Last administered on 07/09/16 02:22; Admin Dose 50 MLS/HR; Start 07/02/16 at 20 :00 IV Flush 10 ml 10 ml PRN PRN IV IV PROTOCOL; Start 07/02/16 at 19:30 Pantoprazole/ Sodium Chloride (Protonix Iv/NS) 100 ml @ 10 mls/hr Q10H IV Last administered on 07/09/16 12:50; Admin Dose 10 MLS/HR; Start 07/03/16 at 12 :00 Tamsulosin HCl (Flomax) 0.4 mg HS PO Last administered on 07/08/16 21:32; Admin Dose 0.4 MG; Start 07/03/16 at 21:00 Miscellaneous Information 1 ea NOTE XX ; Start 07/05/16 at 20:00 Glucose (Glutose) 15 gm Q15M PRN PO DECREASED GLUCOSE; Start 07/05/16 at 20:00 Glucose (Glutose) 22.5 gm Q15M PRN PO DECREASED GLUCOSE; Start 07/05/16 at 20: 00 Dextrose (D50w Syringe) 25 ml Q15M PRN IV DECREASED GLUCOSE; Start 07/05/16 at 20:00 Dextrose (D50w Syringe) 50 ml Q15M PRN IV DECREASED GLUCOSE; Start 07/05/16 at 20:00 Glucagon (Glucagen) 1 mg Q15M PRN IM DECREASED GLUCOSE; Start 07/05/16 at 20:00 Glucose (Glutose) 15 gm Q15M PRN BUCCAL DECREASED GLUCOSE; Start 07/05/16 at 20 :00 Morphine Sulfate (morphine) 4 mg Q4H PRN IV PAIN Last administered on 02:53; Admin Dose 4 MG; Start 07/05/16 at 22:00 Metoprolol Tartrate 25 mg 25 mg BID PO Last administered on 07/09/16 09:58; Admin Dose 25 MG; Start 07/06/16 at 09:00 Dopamine HCl/ Dextrose 250 ml @ 7.35 mls/hr TITRATE IV ; Start 07/06/16 at 22: 00 Caspofungin/ Sodium Chloride (Cancidas/NS) 250 ml @ 250 mls/hr Q24H IVPB Last administered on 07/09/16 13:42; Admin Dose 250 MLS/HR; Start 07/07/16 at 14:00 NHI AHMADI MD Jul 09, 2016 13:57
[2016-07-09 14:38] LABS: IRON 19 ug/dl (35-150)
[2016-07-09 14:48] LABS: TOTAL IRON BINDING CAPACITY 266 ug/dl (241-421)
--- NOTE | 2016-07-09 15:49 | PN ---
DATE: 07/09/2016 SUBJECTIVE: No acute changes. The patient is awake, confused, lying comfortably in bed. No fevers . INDWELLINGS: Crandall, PEG, PICC line, rectal tube. VITAL SIGNS: WBC today 5.4, no shift, no bands, platelets 62. BUN 15, creatinine 0.65. ANTIMICROBIALS: The patient is on Cancidas. PHYSICAL EXAMINATION: GENERAL: This is a chronically ill-appearing, well-developed elderly man who is in no distress. HEENT: Head atraumatic, normocephalic. Sclerae anicteric. Buccal mucosa dry. NECK: Supple, trachea midline. CHEST: Rise symmetrical. Breath sounds diminished to bases. HEART: S1, S2. ABDOMEN: Distended, soft. Bowel tones hypoactive. EXTREMITIES: Bilateral edema. ASSESSMENT: 1. Status post shock. 2. Dorina albicans urinary tract infection. 3. Alcoholic liver cirrhosis. 4. Hepatic encephalopathy. 5. Anemia with thrombocytopenia. 6. Status post gastrointestinal bleeding. 7. Paroxysmal atrial fibrillation. 8. History of familial Mediterranean fever. PLAN: The patient remains stable. We are going to discontinue Cancidas and observe him. Continue anti-aspiration measures. Follow recommendations of consultants. The patient had an abdominal ultr asound that revealed small amount of ascites. Dictated By: STACIE TAMEZ PNEUMATIC SYSTEMS OPERATOR for [facility]/RICK Conf#: [id number] DID#: [id number]
[2016-07-09] MEDS: TAMSULOSIN (SR) 0.4 MG CAP PO SCH (20:45)
--- NOTE | 2016-07-09 23:08 | CONS ---
Date/Time of Note Date/Time of Note DATE: 07/09/16 TIME: 23:07 Assessment/Plan Assessment/Plan Chief Complaint/Hosp Course Anemia - COMPLEX, MULTIFACTORIAL WITH COMPONENT ACD, ACUTE BLOOD LOSS AND SEVERE IRON DEFICIENCY IN THE PAST * Esophageal variceal bleeding/post EVL * CONT TO MONITOR BLOOD COUNT CLOSELY * OBSERVE FOR BLEEDING AND HEMOLYSIS * PRBC NEEDED Alcoholic cirrhosis * Post variceal bleeding/post EVL * Portal encephalopathy * Ascites * Unsafe swallowing/failed swallow eval/high risk for aspiration * POST EGD plus PEG. * POST paracenteses prior to procedure. * transfer to tertiary center for transplant,process started Coagulopathy VIT K POST FFP PRIOR TO PROCEDURE Problems: Consultation Date/Type/Reason Admit Date/Time Jun 09, 2016 at 04:01 Initial Consult Date 06/09/16 Type of Consultation: HEMEON Referring Provider: MAURY BENITEZ MD 24 HR Interval Summary Free Text/Dictation Continue to monitor in telemetry floor PT OT eval and treat [facility] Patient is more awake and alert Tolerating PEG tube feeding No nausea vomiting Exam/Review of Systems Vital Signs Vitals Vital Signs Date Time Temp Pulse Resp B/P Pulse Ox O2 Delivery O2 Flow Rate FiO2 07/09/16 22:36 97.8 67 16 120/68 93 07/09/16 06:00 Room Air 07/08/16 08:00 2.0 07/06/16 23:42 21 Intake and Output 07/08/16 07/08/16 07/09/16 15:00 23:00 07:00 Intake Total 620 ml 750 ml 650 ml Output Total 630 ml 370 ml 225 ml Balance -10 ml 380 ml 425 ml Exam Exam General: The patient is moderately overweight, Not in acute distress. HEENT: Atraumatic, normocephalic. The pupils are equal and round . Neck: Supple with full range of motion. Chest: Normal expansion of the thorax during inspiration Lungs: Clear to auscultation bilaterally Heart: Normal S1-S2, Regular rhythm and rate. Abdomen: Abdominal contour is morbidly obese, soft , nontender, nondistended , bowel sounds are present. PEG tube in place Extremities: Normal to inspection, no edema no cyanosis Neurologic: Awake and alert, although has episodes of agitation Results Result Diagram: 3/31/17 0440 3/31/17 0440 Results 24 hrs Laboratory Tests Test 07/09/16 04:40 07/09/16 13:40 07/09/16 14:55 White Blood Count 5.4 Red Blood Count 2.45 L Hemoglobin 7.2 L Hematocrit 23.1 L Mean Corpuscular Volume 94.3 Mean Corpuscular Hemoglobin 29.4 Mean Corpuscular Hemoglobin Concent 31.2 L Red Cell Distribution Width 18.9 H Platelet Count 62 L Mean Platelet Volume 11.4 H Neutrophils % 71.7 Lymphocytes % 16.1 Monocytes % 8.8 Eosinophils % 2.1 Basophils % 0.0 Nucleated Red Blood Cells % 0.4 H Neutrophils # 3.8 Lymphocytes # 0.9 Monocytes # 0.5 Eosinophils # 0.1 Basophils # 0.0 Nucleated Red Blood Cells # 0.0 Sodium Level 136 Potassium Level 4.9 Chloride Level 108 Carbon Dioxide Level 22 Anion Gap 11 Blood Urea Nitrogen 15 Creatinine 0.65 Glucose Level 315 H Calcium Level 7.2 L Magnesium Level 1.7 Total Bilirubin 0.6 Direct Bilirubin 0.00 Indirect Bilirubin 0.6 Aspartate Amino Transf (AST/SGOT) 37 Alanine Aminotransferase (ALT/SGPT) 37 Alkaline Phosphatase 150 H Ammonia 12 < 9 L Total Protein 5.3 L Albumin 2.2 L Globulin 3.10 Albumin/Globulin Ratio 0.70 Iron Level 19 L Total Iron Binding Capacity 266 Percent Iron Saturation 7 L Medications Medications Current Medications Ondansetron HCl (Zofran Inj) 4 mg Q6H PRN IV NAUSEA AND/OR VOMITING; Start 06/09 at 04:30 Dutasteride (Avodart) 0.5 mg AM PO Last administered on 07/09/16 13:42; Admin Dose 0.5 MG; Start 06/09/16 at 09:00 Finasteride (Proscar) 5 mg AM PO Last administered on 07/09/16 09:57; Admin Dose 5 MG; Start 06/09/16 at 09:00 Levothyroxine Sodium (Synthroid) 50 mcg DAILY@06 PO Last administered on 06:06; Admin Dose 50 MCG; Start 06/09/16 at 06:00 Rifaximin (Xifaxan) 550 mg BID PO Last administered on 07/09/16 20:45; Admin Dose 550 MG; Start 06/11/16 at 14:30 Eye Lubricant (Artificial Tears Oph) 2 drop QID BOTH EYES Last administered on 07/09/16 20:46; Admin Dose 2 DROP; Start 06/12/16 at 13:00 Hydralazine HCl (Apresoline) 10 mg Q2H PRN IV SBP>170; Start 06/12/16 at 17:00 Acetaminophen (Tylenol Liquid) 650 mg Q4H PRN NGT PAIN AND OR ELEVATED TEMP Last administered on 07/07/16 19:02; Admin Dose 650 MG; Start 06/17/16 at 12:30 Lactulose (Enulose) 30 gm QID PO Last administered on 07/09/16 20:44; Admin Dose 30 GM; Start 06/24/16 at 21:30 Febuxostat (Uloric) 40 mg DAILY PO Last administered on 07/09/16 09:57; Admin Dose 40 MG; Start 06/25/16 at 15:00 Colchicine (Colchicine) 0.6 mg TID PRN PO gout pain Last administered on 22:45; Admin Dose 0.6 MG; Start 06/25/16 at 21:00 Lorazepam (Ativan) 1 mg Q6H PRN IV ANXIETY Last administered on 07/08/16 22:21 ; Admin Dose 1 MG; Start 06/25/16 at 18:30 Prednisone (Prednisone) 40 mg DAILY GTB Last administered on 07/09/16 09:58; Admin Dose 40 MG; Start 06/27/16 at 14:30 Metoprolol Tartrate (Lopressor) 5 mg Q4H PRN IV HR>110 Last administered on 15:37; Admin Dose 5 MG; Start 06/28/16 at 16:00 Amiodarone HCl 200 mg 200 mg BID NGT Last administered on 07/09/16 20:45; Admin Dose 200 MG; Start 06/28/16 at 21:00 Potassium Chloride/Dextrose (D5W + KCl 20 Meq) 1,000 ml @ 50 mls/hr Q20H IV Last administered on 07/09/16 02:22; Admin Dose 50 MLS/HR; Start 07/02/16 at 20 :00 IV Flush 10 ml 10 ml PRN PRN IV IV PROTOCOL; Start 07/02/16 at 19:30 Pantoprazole/ Sodium Chloride (Protonix Iv/NS) 100 ml @ 10 mls/hr Q10H IV Last administered on 07/09/16 12:50; Admin Dose 10 MLS/HR; Start 07/03/16 at 12 :00 Tamsulosin HCl (Flomax) 0.4 mg HS PO Last administered on 07/09/16 20:45; Admin Dose 0.4 MG; Start 07/03/16 at 21:00 Miscellaneous Information 1 ea NOTE XX ; Start 07/05/16 at 20:00 Glucose (Glutose) 15 gm Q15M PRN PO DECREASED GLUCOSE; Start 07/05/16 at 20:00 Glucose (Glutose) 22.5 gm Q15M PRN PO DECREASED GLUCOSE; Start 07/05/16 at 20: 00 Dextrose (D50w Syringe) 25 ml Q15M PRN IV DECREASED GLUCOSE; Start 07/05/16 at 20:00 Dextrose (D50w Syringe) 50 ml Q15M PRN IV DECREASED GLUCOSE; Start 07/05/16 at 20:00 Glucagon (Glucagen) 1 mg Q15M PRN IM DECREASED GLUCOSE; Start 07/05/16 at 20:00 Glucose (Glutose) 15 gm Q15M PRN BUCCAL DECREASED GLUCOSE; Start 07/05/16 at 20 :00 Morphine Sulfate (morphine) 4 mg Q4H PRN IV PAIN Last administered on 02:53; Admin Dose 4 MG; Start 07/05/16 at 22:00 Metoprolol Tartrate 25 mg 25 mg BID PO Last administered on 07/09/16 20:46; Admin Dose 25 MG; Start 07/06/16 at 09:00 Dopamine HCl/ Dextrose 250 ml @ 7.35 mls/hr TITRATE IV ; Start 07/06/16 at 22: 00 Caspofungin/ Sodium Chloride (Cancidas/NS) 250 ml @ 250 mls/hr Q24H IVPB Last administered on 07/09/16 13:42; Admin Dose 250 MLS/HR; Start 07/07/16 at 14:00 FAYE RUSHING MD Jul 09, 2016 23:08
[2016-07-10] VITALS (17 sets, daily range): BP systolic 105–128; BP diastolic 58–82; PULSE 60–70; RESP 16–20
[2016-07-10] MEDS: morphine 4 MG/ML VIAL IV PRN (00:48)
[2016-07-10] MEDS: PANTOPRAZOLE IV 80 MG in SOD CHLORIDE 0.9% 100 ML IV SCH (04:00)
[2016-07-10] MEDS: LEVOTHYROXINE 50 MCG TAB PO SCH (06:55)
[2016-07-10 07:11] LABS: ABNORMAL IP MESSAGE 1; ADD SCAN DIFF NO; BASOPHILS % 0.2 % (0.0-2.0); EOSINOPHILS # 0.1 10^3/ul (0.0-0.5); EOSINOPHILS % 1.4 % (0.0-7.0); HEMATOCRIT 24.6 % (42.0-52.0); HEMOGLOBIN 7.7 g/dl (14.0-18.0); LYMPHOCYTES # 0.9 10^3/ul (0.8-2.9); MEAN CORPUSCULAR HEMOGLOBIN 28.7 pg (29.0-33.0); MEAN CORPUSCULAR HGB CONC 31.3 g/dl (32.0-37.0); MEAN CORPUSCULAR VOLUME 91.8 fl (82.0-101.0); MEAN PLATELET VOLUME 10.7 fl (7.4-10.4); MONOCYTE # 0.5 10^3/ul (0.3-0.9); NEUTROPHIL # 3.5 10^3/ul (1.6-7.5); NEUTROPHILS % 69.4 % (39.0-77.0); PLATELET COUNT 59 10^3/UL (140-415); PLATELET COUNT 67 10^3/UL (140-415); RED BLOOD COUNT 2.68 10^6/ul (4.70-6.10); RED CELL DISTRIBUTION WIDTH 19.1 % (11.5-14.5)
[2016-07-10 07:36] LABS: ALBUMIN 2.3 g/dl (3.3-4.9); INR 1.28; PARTIAL THROMBOPLASTIN TIME 31.8 Sec (25.0-35.0); PROTIME 16.1 Sec (12.2-14.2); PT RATIO 1.3
[2016-07-10 07:37] LABS: POTASSIUM 4.4 mmol/L (3.5-5.1)
[2016-07-10 07:39] LABS: CREATININE 0.68 mg/dl (0.61-1.24); TOTAL PROTEIN 5.4 g/dl (6.1-8.1)
[2016-07-10 07:40] LABS: CALCIUM 7.3 mg/dl (8.4-10.2); MAGNESIUM 1.8 mg/dl (1.7-2.5)
[2016-07-10 08:49] LABS: THROMBIN TIME 20.7 SEC (13.8-19.1)
[2016-07-10 08:52] LABS: D-DIMER 6453.63 ng/ml (<460)
[2016-07-10] MEDS: FINASTERIDE 5 MG TAB PO SCH (09:00)
[2016-07-10] MEDS: ARTIFICIAL TEARS 15 ML OPH BOTH EYES SCH ×4 (10:05→20:55)
[2016-07-10] MEDS: predniSONE 20 MG TAB GTB SCH (10:05)
[2016-07-10] MEDS: AMIODARONE 200 MG TAB NGT SCH ×2 (10:06→20:53)
[2016-07-10] MEDS: RIFAXIMIN 550 MG TAB PO SCH ×2 (10:06→20:52)
[2016-07-10] MEDS: METOPROLOL 25 MG TAB PO SCH ×2 (10:07→20:54)
[2016-07-10] MEDS: LACTULOSE 30ML CUP PO SCH ×4 (10:08→20:53)
[2016-07-10] MEDS: FEBUXOSTAT 40 MG TABLET PO SCH (10:08)
[2016-07-10] MEDS: DUTASTERIDE 0.5 MG CAP PO SCH (10:08)
[2016-07-10] MEDS: D5W + KCL 20 MEQ 1,000 ML IV SCH (10:14)
--- NOTE | 2016-07-10 10:49 | PN ---
Date/Time of Note Date/Time of Note DATE: 07/10/16 TIME: 10:41 Assessment/Plan VTE Prophylaxis VTE Prophylaxis Intervention: contraindicated Lines/Catheters IV [facility] Type ([facility] PICC Line Central line still needed: Yes Urinary Cath still in place: Yes Reason Cath still needed: urinary retention Assessment/Plan Chief Complaint/Hosp Course Hospital day 32 Problems: (1) Status post insertion of percutaneous endoscopic gastrostomy (PEG) tube Status: Acute Comment: Patient is receiving nutrition via the PEG tube without complication. I believe is a consideration try and start switching some of his medications over to be given through this including the IV Protonix as an example. Would appreciate input from gastroenterology (2) Gout Status: Chronic Comment: He is on medications and stable without evidence of any type of flare. Continue his uLoric. Qualifiers: Gout site: unspecified site Gout etiology: unspecified cause Chronicity: chronic Presence of tophus: without tophus Qualified Code: M1A.9XX0 - Chronic gout without tophus, unspecified cause, unspecified site (3) FMF (familial Mediterranean fever) Status: Chronic Comment: Patient was placed on prednisone for this by infectious diseases on June 25. I am not certain we need to continue this in at least reduce the dosage prednisone from 40 down to 20. Would appreciate infectious disease comment and input regarding continuation of glucocorticoids (4) BPH (benign prostatic hyperplasia) Status: Chronic Comment: Patient's on medication. With his confusion is full but difficult to get any symptoms and he has a Crandall catheter in any way. We may start trying to do voiding trials however I do believe that this will not be necessarily great idea until we get the patient up and moving around and while he is restrained this may be not the best usage of our goals Qualifiers: Prostatic enlargement morphology: unspecified morphology Lower urinary tract symptom presence: presence of symptoms unspecified Qualified Code: N40.0 - Benign prostatic hyperplasia, presence of lower urinary tract symptoms unspecified, unspecified morphology (5) Hypothyroidism (acquired) Status: Chronic Comment: On replacement therapy adequately (6) Intermittent atrial fibrillation Status: Acute Comment: He is on amiodarone and control and in sinus rhythm (7) Confusion and disorientation Status: Acute Comment: He is on rivaroxaban as a prophylaxis for this in addition he had an ammonia level that was low. I suspect that the confusion is a long-term sequela I of alcoholism, and her language barriers and the prolonged hospitalization. 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 His cirrhosis is present and even has ascites from this which is current. May be a consideration to reevaluate his fluid regimen to limit this and try and place him on treatment for the ascites. (10) Gastrointestinal hemorrhage Status: Acute Comment: Not presently bleeding Qualifiers: GI bleed type/associated pathology: gastrointestinal hemorrhage with hematemesis Qualified Code: K92.0 - Gastrointestinal hemorrhage with hematemesis Subjective 24 Hr Interval Summary Free Text/Dictation [place] speaking gentleman lying in bed with restraints. Patient is quite animated. Exam/Review of Systems Vital Signs Vitals Vital Signs Date Time Temp Pulse Resp B/P Pulse Ox O2 Delivery O2 Flow Rate FiO2 07/10/16 10:16 98.0 63 17 117/59 93 Room Air 07/08/16 08:00 2.0 07/06/16 23:42 21 Intake and Output 07/09/16 07/09/16 07/10/16 15:00 23:00 07:00 Intake Total 800 ml 800 ml Output Total 700 ml 650 ml Balance 100 ml 150 ml Exam Constitutional: alert Neck: non-tender, supple Respiratory: clear to auscultation, normal air movement Cardiovascular: nl pulses, regular rate and rhythm Gastrointestinal: ascites (Positive fluid wave), non-tender, soft, splenomegaly Results Result Diagram: 07/10/16 0625 07/10/16 0625 Results 24 hrs Laboratory Tests Test 07/09/16 13:40 07/09/16 14:55 07/10/16 06:25 Iron Level 19 L Total Iron Binding Capacity 266 Percent Iron Saturation 7 L Ammonia < 9 L White Blood Count 5.0 Red Blood Count 2.68 L Hemoglobin 7.7 L Hematocrit 24.6 L Mean Corpuscular Volume 91.8 Mean Corpuscular Hemoglobin 28.7 L Mean Corpuscular Hemoglobin Concent 31.3 L Red Cell Distribution Width 19.1 H Platelet Count 67 L Mean Platelet Volume 10.7 H Neutrophils % 69.4 Lymphocytes % 18.0 Monocytes % 10.0 Eosinophils % 1.4 Basophils % 0.2 Nucleated Red Blood Cells % 0.0 Neutrophils # 3.5 Lymphocytes # 0.9 Monocytes # 0.5 Eosinophils # 0.1 Basophils # 0.0 Nucleated Red Blood Cells # 0.0 Prothrombin Time 16.1 H Prothrombin Time Ratio 1.3 INR International Normalized Ratio 1.28 Activated Partial Thromboplast Time 31.8 Thrombin Time 20.7 H Fibrinogen 223.0 Plasma Fibrin Degradation Products Pending D-Dimer 6453.63 H D-Dimer Comment Sodium Level 138 Potassium Level 4.4 Chloride Level 112 H Carbon Dioxide Level 22 Anion Gap 8 Blood Urea Nitrogen 14 Creatinine 0.68 Glucose Level 217 Calcium Level 7.3 L Magnesium Level 1.8 Total Bilirubin 1.0 Direct Bilirubin 0.00 Indirect Bilirubin 1.0 Aspartate Amino Transf (AST/SGOT) 34 Alanine Aminotransferase (ALT/SGPT) 36 Alkaline Phosphatase 163 H Total Protein 5.4 L Albumin 2.3 L Medications Medications Current Medications Ondansetron HCl (Zofran Inj) 4 mg Q6H PRN IV NAUSEA AND/OR VOMITING; Start 06/09 at 04:30 Dutasteride (Avodart) 0.5 mg AM PO Last administered on 07/10/16 10:08; Admin Dose 0.5 MG; Start 06/09/16 at 09:00 Finasteride (Proscar) 5 mg AM PO Last administered on 07/10/16 09:00; Admin Dose 5 MG; Start 06/09/16 at 09:00 Levothyroxine Sodium (Synthroid) 50 mcg DAILY@06 PO Last administered on 06:55; Admin Dose 50 MCG; Start 06/09/16 at 06:00 Rifaximin (Xifaxan) 550 mg BID PO Last administered on 07/10/16 10:06; Admin Dose 550 MG; Start 06/11/16 at 14:30 Eye Lubricant (Artificial Tears Oph) 2 drop QID BOTH EYES Last administered on 07/10/16 10:05; Admin Dose 2 DROP; Start 06/12/16 at 13:00 Hydralazine HCl (Apresoline) 10 mg Q2H PRN IV SBP>170; Start 06/12/16 at 17:00 Acetaminophen (Tylenol Liquid) 650 mg Q4H PRN NGT PAIN AND OR ELEVATED TEMP Last administered on 07/07/16 19:02; Admin Dose 650 MG; Start 06/17/16 at 12:30 Lactulose (Enulose) 30 gm QID PO Last administered on 07/10/16 10:08; Admin Dose 30 GM; Start 06/24/16 at 21:30 Febuxostat (Uloric) 40 mg DAILY PO Last administered on 07/10/16 10:08; Admin Dose 40 MG; Start 06/25/16 at 15:00 Colchicine (Colchicine) 0.6 mg TID PRN PO gout pain Last administered on 22:45; Admin Dose 0.6 MG; Start 06/25/16 at 21:00 Lorazepam (Ativan) 1 mg Q6H PRN IV ANXIETY Last administered on 07/08/16 22:21 ; Admin Dose 1 MG; Start 06/25/16 at 18:30 Prednisone (Prednisone) 40 mg DAILY GTB Last administered on 07/10/16 10:05; Admin Dose 40 MG; Start 06/27/16 at 14:30 Metoprolol Tartrate (Lopressor) 5 mg Q4H PRN IV HR>110 Last administered on 15:37; Admin Dose 5 MG; Start 06/28/16 at 16:00 Amiodarone HCl 200 mg 200 mg BID NGT Last administered on 07/10/16 10:06; Admin Dose 200 MG; Start 06/28/16 at 21:00 Potassium Chloride/Dextrose (D5W + KCl 20 Meq) 1,000 ml @ 50 mls/hr Q20H IV Last administered on 07/10/16 10:14; Admin Dose 50 MLS/HR; Start 07/02/16 at 20: 00 IV Flush 10 ml 10 ml PRN PRN IV IV PROTOCOL; Start 07/02/16 at 19:30 Pantoprazole/ Sodium Chloride (Protonix Iv/NS) 100 ml @ 10 mls/hr Q10H IV Last administered on 07/10/16 04:00; Admin Dose 10 MLS/HR; Start 07/03/16 at 12: 00 Tamsulosin HCl (Flomax) 0.4 mg HS PO Last administered on 07/09/16 20:45; Admin Dose 0.4 MG; Start 07/03/16 at 21:00 Miscellaneous Information 1 ea NOTE XX ; Start 07/05/16 at 20:00 Glucose (Glutose) 15 gm Q15M PRN PO DECREASED GLUCOSE; Start 07/05/16 at 20:00 Glucose (Glutose) 22.5 gm Q15M PRN PO DECREASED GLUCOSE; Start 07/05/16 at 20: 00 Dextrose (D50w Syringe) 25 ml Q15M PRN IV DECREASED GLUCOSE; Start 07/05/16 at 20:00 Dextrose (D50w Syringe) 50 ml Q15M PRN IV DECREASED GLUCOSE; Start 07/05/16 at 20:00 Glucagon (Glucagen) 1 mg Q15M PRN IM DECREASED GLUCOSE; Start 07/05/16 at 20:00 Glucose (Glutose) 15 gm Q15M PRN BUCCAL DECREASED GLUCOSE; Start 07/05/16 at 20 :00 Morphine Sulfate (morphine) 4 mg Q4H PRN IV PAIN Last administered on 07/10/16 00:48; Admin Dose 4 MG; Start 07/05/16 at 22:00 Metoprolol Tartrate 25 mg 25 mg BID PO Last administered on 07/10/16 10:07; Admin Dose 25 MG; Start 07/06/16 at 09:00 Dopamine HCl/ Dextrose 250 ml @ 7.35 mls/hr TITRATE IV ; Start 07/06/16 at 22: 00 Caspofungin/ Sodium Chloride (Cancidas/NS) 250 ml @ 250 mls/hr Q24H IVPB Last administered on 07/09/16 13:42; Admin Dose 250 MLS/HR; Start 07/07/16 at 14:00 MAG CADENA MD Jul 10, 2016 10:49
--- NOTE | 2016-07-10 12:00 | CONS ---
Date/Time of Note Date/Time of Note DATE: 07/10/16 TIME: 11:54 Assessment/Plan Assessment/Plan Additional Assessment/Plan Paroxysmal atrial fibrillation in Normal Sinus Rhythm Abnormal electrocardiogram. Gastrointestinal bleed.-s/p EGD with esophageal ulcers/varices s/p banding Cirrhosis with ascites Encephalopathy Anemia Coagulopathy PNA ARF Hypotension-off pressors BPH Continue Metoprolol and amiodarone Off Anticoagulation due to ongoing bleed Continue Lactulose Continue antibiotics Continue Prednisone Continue BPG meds as scheduled Consultation Date/Type/Reason Admit Date/Time Jun 09, 2016 at 04:01 Constitutional: other (Weakness) Eyes: no complaints, No discharge, No other, No pain, No redness, No visual change ENT: no complaints, No bleeding, No congestion, No discharge, No dysphagia, No other, No pain, No sore throat Respiratory: no complaints Cardiovascular: no complaints, No chest pain, No edema, No lightheadedness, No orthopenea, No other, No palpitations, No paroxysmal nocturnal dyspnea Gastrointestinal: no complaints, other (Hematemesis), pain (Diffuse abdominal pain, mild), No blood, No constipation, No decreased appetite, No diarrhea, No flatus, No nausea, No passing stool, No vomiting Genitourinary: no complaints, No bleeding, No discharge, No dysuria, No flank pain, No hematuria, No other Musculoskeletal: no complaints, No back pain, No bone/joint pain, No neck pain, No other, No restricted range of motion, No swelling Skin: no complaints, No bruising, No erythema, No laceration, No other, No pruritis, No rash, No skin lesions Neurologic: no complaints, No confusion, No dizziness, No focal-weakness, No headache, No other, No seizure, No syncope Endocrine: no complaints, No dry skin, No other, No polydypsia, No polyuria, No temp intolerance Lymphatic: no complaints, No adenopathy, No lymphadema, No other, No tender nodes Psychological: confusion Immunologic: no complaints, No immunodeficiency, No other, No pruritis, No rhinitis, No urticaria Past Medical History Medical History: hypertension, hyperthyroid, other (cirrhosis) Past Surgical History Past Surgical Hx: no surgical history Social History Alcohol Use: other (Previously heavy ethanol abuse) Smoking Status: Former smoker Drug Use: none Exam/Review of Systems Vital Signs Vitals Vital Signs Date Time Temp Pulse Resp B/P Pulse Ox O2 Delivery O2 Flow Rate FiO2 07/10/16 11:38 97.8 67 20 105/61 98 07/10/16 10:16 Room Air 07/08/16 08:00 2.0 07/06/16 23:42 21 Intake and Output 07/09/16 07/09/16 07/10/16 15:00 23:00 07:00 Intake Total 800 ml 800 ml Output Total 700 ml 650 ml Balance 100 ml 150 ml Exam Constitutional: other (confused and lethargic) Head: atraumatic, normocephalic Neck: non-tender, supple Respiratory: clear to auscultation Cardiovascular: regular rate and rhythm Gastrointestinal: distended, non-tender, other (ascites), soft Extremities: edema Results Result Diagram: 07/10/1625 07/10/16 0625 Results 24 hrs Laboratory Tests Test 07/09/16 13:40 07/09/16 14:55 07/10/16 06:25 Iron Level 19 L Total Iron Binding Capacity 266 Percent Iron Saturation 7 L Ammonia < 9 L White Blood Count 5.0 Red Blood Count 2.68 L Hemoglobin 7.7 L Hematocrit 24.6 L Mean Corpuscular Volume 91.8 Mean Corpuscular Hemoglobin 28.7 L Mean Corpuscular Hemoglobin Concent 31.3 L Red Cell Distribution Width 19.1 H Platelet Count 67 L Mean Platelet Volume 10.7 H Neutrophils % 69.4 Lymphocytes % 18.0 Monocytes % 10.0 Eosinophils % 1.4 Basophils % 0.2 Nucleated Red Blood Cells % 0.0 Neutrophils # 3.5 Lymphocytes # 0.9 Monocytes # 0.5 Eosinophils # 0.1 Basophils # 0.0 Nucleated Red Blood Cells # 0.0 Prothrombin Time 16.1 H Prothrombin Time Ratio 1.3 INR International Normalized Ratio 1.28 Activated Partial Thromboplast Time 31.8 Thrombin Time 20.7 H Fibrinogen 223.0 Plasma Fibrin Degradation Products Pending D-Dimer 6453.63 H D-Dimer Comment Sodium Level 138 Potassium Level 4.4 Chloride Level 112 H Carbon Dioxide Level 22 Anion Gap 8 Blood Urea Nitrogen 14 Creatinine 0.68 Glucose Level 217 Calcium Level 7.3 L Magnesium Level 1.8 Total Bilirubin 1.0 Direct Bilirubin 0.00 Indirect Bilirubin 1.0 Aspartate Amino Transf (AST/SGOT) 34 Alanine Aminotransferase (ALT/SGPT) 36 Alkaline Phosphatase 163 H Total Protein 5.4 L Albumin 2.3 L Medications Medications Current Medications Ondansetron HCl (Zofran Inj) 4 mg Q6H PRN IV NAUSEA AND/OR VOMITING; Start 06/09 at 04:30 Dutasteride (Avodart) 0.5 mg AM PO Last administered on 07/10/16 10:08; Admin Dose 0.5 MG; Start 06/09/16 at 09:00 Finasteride (Proscar) 5 mg AM PO Last administered on 07/10/16 09:00; Admin Dose 5 MG; Start 06/09/16 at 09:00 Levothyroxine Sodium (Synthroid) 50 mcg DAILY@06 PO Last administered on 06:55; Admin Dose 50 MCG; Start 06/09/16 at 06:00 Rifaximin (Xifaxan) 550 mg BID PO Last administered on 07/10/16 10:06; Admin Dose 550 MG; Start 06/11/16 at 14:30 Eye Lubricant (Artificial Tears Oph) 2 drop QID BOTH EYES Last administered on 07/10/16 10:05; Admin Dose 2 DROP; Start 06/12/16 at 13:00 Hydralazine HCl (Apresoline) 10 mg Q2H PRN IV SBP>170; Start 06/12/16 at 17:00 Acetaminophen (Tylenol Liquid) 650 mg Q4H PRN NGT PAIN AND OR ELEVATED TEMP Last administered on 07/07/16 19:02; Admin Dose 650 MG; Start 06/17/16 at 12:30 Lactulose (Enulose) 30 gm QID PO Last administered on 07/10/16 10:08; Admin Dose 30 GM; Start 06/24/16 at 21:30 Febuxostat (Uloric) 40 mg DAILY PO Last administered on 07/10/16 10:08; Admin Dose 40 MG; Start 06/25/16 at 15:00 Colchicine (Colchicine) 0.6 mg TID PRN PO gout pain Last administered on 22:45; Admin Dose 0.6 MG; Start 06/25/16 at 21:00 Lorazepam (Ativan) 1 mg Q6H PRN IV ANXIETY Last administered on 07/08/16 22:21 ; Admin Dose 1 MG; Start 06/25/16 at 18:30 Metoprolol Tartrate (Lopressor) 5 mg Q4H PRN IV HR>110 Last administered on 15:37; Admin Dose 5 MG; Start 06/28/16 at 16:00 Amiodarone HCl 200 mg 200 mg BID NGT Last administered on 07/10/16 10:06; Admin Dose 200 MG; Start 06/28/16 at 21:00 Potassium Chloride/Dextrose (D5W + KCl 20 Meq) 1,000 ml @ 50 mls/hr Q20H IV Last administered on 07/10/16 10:14; Admin Dose 50 MLS/HR; Start 07/02/16 at 20: 00 IV Flush (NS 10 ml) 10 ml PRN PRN IV IV PROTOCOL; Start 07/02/16 at 19:30 Tamsulosin HCl (Flomax) 0.4 mg HS PO Last administered on 07/09/16 20:45; Admin Dose 0.4 MG; Start 07/03/16 at 21:00 Miscellaneous Information 1 ea NOTE XX ; Start 07/05/16 at 20:00 Glucose (Glutose) 15 gm Q15M PRN PO DECREASED GLUCOSE; Start 07/05/16 at 20:00 Glucose (Glutose) 22.5 gm Q15M PRN PO DECREASED GLUCOSE; Start 07/05/16 at 20: 00 Dextrose (D50w Syringe) 25 ml Q15M PRN IV DECREASED GLUCOSE; Start 07/05/16 at 20:00 Dextrose (D50w Syringe) 50 ml Q15M PRN IV DECREASED GLUCOSE; Start 07/05/16 at 20:00 Glucagon (Glucagen) 1 mg Q15M PRN IM DECREASED GLUCOSE; Start 07/05/16 at 20:00 Glucose (Glutose) 15 gm Q15M PRN BUCCAL DECREASED GLUCOSE; Start 07/05/16 at 20 :00 Morphine Sulfate (morphine) 4 mg Q4H PRN IV PAIN Last administered on 07/10/16 00:48; Admin Dose 4 MG; Start 07/05/16 at 22:00 Metoprolol Tartrate 25 mg 25 mg BID PO Last administered on 07/10/16 10:07; Admin Dose 25 MG; Start 07/06/16 at 09:00 Dopamine HCl/ Dextrose 250 ml @ 7.35 mls/hr TITRATE IV ; Start 07/06/16 at 22: 00; Status Future Hold Caspofungin/ Sodium Chloride (Cancidas/NS) 250 ml @ 250 mls/hr Q24H IVPB Last administered on 07/09/16t 13:42; Admin Dose 250 MLS/HR; Start 07/07/16 at 14:00 Prednisone (Prednisone) 20 mg DAILY GTB ; Start 07/11/16 at 09:00 Pantoprazole (Protonix Tab) 40 mg BID@06,18 PO ; Start 07/10/16 at 18:00 KRISHNA VINES M.D. Jul 10, 2016 12:00
--- NOTE | 2016-07-10 13:33 | CONS ---
Date/Time of Note Date/Time of Note DATE: 07/10/16 TIME: 13:33 Assessment/Plan Assessment/Plan Chief Complaint/Hosp Course Anemia - COMPLEX, MULTIFACTORIAL WITH COMPONENT ACD, ACUTE BLOOD LOSS AND SEVERE IRON DEFICIENCY IN THE PAST * Esophageal variceal bleeding/post EVL * CONT TO MONITOR BLOOD COUNT CLOSELY * OBSERVE FOR BLEEDING AND HEMOLYSIS * PRBC NEEDED Alcoholic cirrhosis * Post variceal bleeding/post EVL * Portal encephalopathy * Ascites * Unsafe swallowing/failed swallow eval/high risk for aspiration * POST EGD plus PEG. * POST paracenteses prior to procedure. * transfer to tertiary center for transplant,process started Coagulopathy VIT K POST FFP PRIOR TO PROCEDURE Problems: Consultation Date/Type/Reason Admit Date/Time Jun 09, 2016 at 04:01 Initial Consult Date 06/09/16 Type of Consultation: HEMEON Referring Provider: MAURY BENITEZ MD 24 HR Interval Summary Free Text/Dictation all noted more alert d/w son Exam/Review of Systems Vital Signs Vitals Vital Signs Date Time Temp Pulse Resp B/P Pulse Ox O2 Delivery O2 Flow Rate FiO2 07/10/16 12:05 60 07/10/16 11:38 97.8 20 105/61 98 07/10/16 10:16 Room Air 07/08/16 08:00 2.0 07/06/16 23:42 21 Intake and Output 07/09/16 07/09/16 07/10/16 15:00 23:00 07:00 Intake Total 800 ml 800 ml Output Total 700 ml 650 ml Balance 100 ml 150 ml Exam Patient is more awake and alert Tolerating PEG tube feeding No nausea vomiting Exam/Review of Systems Vital Signs Vitals Vital Signs Date Time Temp Pulse Resp B/P Pulse Ox O2 Delivery O2 Flow Rate FiO2 07/09/16 12:04 70 07/09/16 10:03 98.0 18 120/65 92 07/09/16 06:00 Room Air 07/08/16 08:00 2.0 07/06/16 23:42 21 Intake and Output 07/08/16 07/08/16 07/09/16 15:00 23:00 07:00 Intake Total 620 ml 750 ml 650 ml Output Total 630 ml 370 ml 225 ml Balance -10 ml 380 ml 425 ml Exam General: The patient is moderately overweight, Not in acute distress. HEENT: Atraumatic, normocephalic. The pupils are equal and round . Neck: Supple with full range of motion. Chest: Normal expansion of the thorax during inspiration Lungs: Clear to auscultation bilaterally Heart: Normal S1-S2, Regular rhythm and rate. Abdomen: Abdominal contour is morbidly obese, soft , nontender, nondistended , bowel sounds are present. PEG tube in place Extremities: Normal to inspection, no edema no cyanosis Neurologic: Awake and alert, although has episodes of agitation Results Result Diagram: 07/10/1662407/10/1625 Results 24 hrs Laboratory Tests Test 07/09/16 13:40 07/09/16 14:55 07/10/16 06:25 Iron Level 19 L Total Iron Binding Capacity 266 Percent Iron Saturation 7 L Ammonia < 9 L White Blood Count 5.0 Red Blood Count 2.68 L Hemoglobin 7.7 L Hematocrit 24.6 L Mean Corpuscular Volume 91.8 Mean Corpuscular Hemoglobin 28.7 L Mean Corpuscular Hemoglobin Concent 31.3 L Red Cell Distribution Width 19.1 H Platelet Count 67 L Mean Platelet Volume 10.7 H Neutrophils % 69.4 Lymphocytes % 18.0 Monocytes % 10.0 Eosinophils % 1.4 Basophils % 0.2 Nucleated Red Blood Cells % 0.0 Neutrophils # 3.5 Lymphocytes # 0.9 Monocytes # 0.5 Eosinophils # 0.1 Basophils # 0.0 Nucleated Red Blood Cells # 0.0 Prothrombin Time 16.1 H Prothrombin Time Ratio 1.3 INR International Normalized Ratio 1.28 Activated Partial Thromboplast Time 31.8 Thrombin Time 20.7 H Fibrinogen 223.0 Plasma Fibrin Degradation Products D-Dimer 6453.63 H D-Dimer Comment Sodium Level 138 Potassium Level 4.4 Chloride Level 112 H Carbon Dioxide Level 22 Anion Gap 8 Blood Urea Nitrogen 14 Creatinine 0.68 Glucose Level 217 Calcium Level 7.3 L Magnesium Level 1.8 Total Bilirubin 1.0 Direct Bilirubin 0.00 Indirect Bilirubin 1.0 Aspartate Amino Transf (AST/SGOT) 34 Alanine Aminotransferase (ALT/SGPT) 36 Alkaline Phosphatase 163 H Total Protein 5.4 L Albumin 2.3 L Medications Medications Current Medications Ondansetron HCl (Zofran Inj) 4 mg Q6H PRN IV NAUSEA AND/OR VOMITING; Start 06/09 at 04:30 Dutasteride (Avodart) 0.5 mg AM PO Last administered on 07/10/16 10:08; Admin Dose 0.5 MG; Start 06/09/16 at 09:00 Finasteride (Proscar) 5 mg AM PO Last administered on 07/10/16 09:00; Admin Dose 5 MG; Start 06/09/16 at 09:00 Levothyroxine Sodium (Synthroid) 50 mcg DAILY@06 PO Last administered on 06:55; Admin Dose 50 MCG; Start 06/09/16 at 06:00 Rifaximin (Xifaxan) 550 mg BID PO Last administered on 07/10/16 10:06; Admin Dose 550 MG; Start 06/11/16 at 14:30 Eye Lubricant (Artificial Tears Oph) 2 drop QID BOTH EYES Last administered on 07/10/16 13:30; Admin Dose 2 DROP; Start 06/12/16 at 13:00 Hydralazine HCl (Apresoline) 10 mg Q2H PRN IV SBP>170; Start 06/12/16 at 17:00 Acetaminophen (Tylenol Liquid) 650 mg Q4H PRN NGT PAIN AND OR ELEVATED TEMP Last administered on 07/07/16 19:02; Admin Dose 650 MG; Start 06/17/16 at 12:30 Lactulose (Enulose) 30 gm QID PO Last administered on 07/10/16 13:30; Admin Dose 30 GM; Start 06/24/16 at 21:30 Febuxostat (Uloric) 40 mg DAILY PO Last administered on 07/10/16 10:08; Admin Dose 40 MG; Start 06/25/16 at 15:00 Colchicine (Colchicine) 0.6 mg TID PRN PO gout pain Last administered on 22:45; Admin Dose 0.6 MG; Start 06/25/16 at 21:00 Lorazepam (Ativan) 1 mg Q6H PRN IV ANXIETY Last administered on 07/08/16 22:21 ; Admin Dose 1 MG; Start 06/25/16 at 18:30 Metoprolol Tartrate (Lopressor) 5 mg Q4H PRN IV HR>110 Last administered on 15:37; Admin Dose 5 MG; Start 06/28/16 at 16:00 Amiodarone HCl 200 mg 200 mg BID NGT Last administered on 07/10/16 10:06; Admin Dose 200 MG; Start 06/28/16 at 21:00 Potassium Chloride/Dextrose (D5W + KCl 20 Meq) 1,000 ml @ 50 mls/hr Q20H IV Last administered on 07/10/16 10:14; Admin Dose 50 MLS/HR; Start 07/02/16 at 20: 00 IV Flush (NS 10 ml) 10 ml PRN PRN IV IV PROTOCOL; Start 07/02/16 at 19:30 Tamsulosin HCl (Flomax) 0.4 mg HS PO Last administered on 07/09/16 20:45; Admin Dose 0.4 MG; Start 07/03/16 at 21:00 Miscellaneous Information 1 ea NOTE XX ; Start 07/05/16 at 20:00 Glucose (Glutose) 15 gm Q15M PRN PO DECREASED GLUCOSE; Start 07/05/16 at 20:00 Glucose (Glutose) 22.5 gm Q15M PRN PO DECREASED GLUCOSE; Start 07/05/16 at 20: 00 Dextrose (D50w Syringe) 25 ml Q15M PRN IV DECREASED GLUCOSE; Start 07/05/16 at 20:00 Dextrose (D50w Syringe) 50 ml Q15M PRN IV DECREASED GLUCOSE; Start 07/05/16 at 20:00 Glucagon (Glucagen) 1 mg Q15M PRN IM DECREASED GLUCOSE; Start 07/05/16 at 20:00 Glucose (Glutose) 15 gm Q15M PRN BUCCAL DECREASED GLUCOSE; Start 07/05/16 at 20 :00 Morphine Sulfate (morphine) 4 mg Q4H PRN IV PAIN Last administered on 07/10/16 00:48; Admin Dose 4 MG; Start 07/05/16 at 22:00 Metoprolol Tartrate 25 mg 25 mg BID PO Last administered on 07/10/16 10:07; Admin Dose 25 MG; Start 07/06/16 at 09:00 Dopamine HCl/ Dextrose 250 ml @ 7.35 mls/hr TITRATE IV ; Start 07/06/16 at 22: 00; Status Future Hold Prednisone (Prednisone) 20 mg DAILY GTB ; Start 07/11/16 at 09:00 Pantoprazole (Protonix Tab) 40 mg BID@,18 PO ; Start 07/10/16 at 18:00 FAYE RUSHING MD Jul 10, 2016 13:33
[2016-07-10] MEDS: LORAZEPAM 2 MG INJ IV PRN (15:31)
--- NOTE | 2016-07-10 15:53 | CONS ---
Date/Time of Note Date/Time of Note DATE: 07/10/16 TIME: 15:52 Assessment/Plan Assessment/Plan Chief Complaint/Hosp Course Assessment 1. Hematochezia 2. Blood in gastrostomy tube 3. Esophageal variceal bleeding/post EVL 4. Anemia secondary to #1-3 * S/p repeat EGD 06/30: Post EVL ulcers. * S/p repeat EGD 07/02: 1. Multiple esophageal ulcers. Post-endoscopic variceal ligation with no active bleeding but positive stigmata of recent bleeding. 2. Gastrostomy tube in place and in good condition. 3. No other bleeding site or potential bleeding site identified. 5. Alcoholic cirrhosis 6. Unsafe swallowing/failed swallow eval/high risk for aspiration Recommendations: 1. Continue Metoprolol and amiodarone 2. Ok to restart Anticoagulation if indicated per primary 3. Continue Lactulose and rifaximen for encephalopathy 4. Continue antibiotics 5. monitor for e/o overt GIB if anticoagulation restarted. May need repeat EGD 6. continue protonix 40 mg bid 7. continue tube feeds. Problems: Consultation Date/Type/Reason Admit Date/Time Jun 09, 2016 at 04:01 Initial Consult Date 06/09/16 Type of Consultation: GI Referring Provider: MAURY BENITEZ MD 24 HR Interval Summary Free Text/Dictation Confused, lying comfortably in bed. No fevers. Exam/Review of Systems Vital Signs Vitals Vital Signs Date Time Temp Pulse Resp B/P Pulse Ox O2 Delivery O2 Flow Rate FiO2 07/10/16 15:50 98.3 70 20 128/71 98 07/10/16 14:05 Room Air 07/08/16 08:00 2.0 07/06/16 23:42 21 Intake and Output 07/09/16 07/09/16 07/10/16 15:00 23:00 07:00 Intake Total 800 ml 800 ml Output Total 700 ml 650 ml Balance 100 ml 150 ml Exam Psych: confusion Head: atraumatic, normocephalic Eyes: EOMI, nl conjunctiva, nl lids, nl sclera ENMT: mucosa pink and moist, nl external ears & nose, nl lips & teeth, nl nasal mucosa & septum Neck: non-tender, supple Respiratory: clear to auscultation, normal air movement Cardiovascular: nl pulses, regular rate and rhythm Gastrointestinal: bowel sounds, non-tender, soft Results Result Diagram: 07/10/16 0625 07/10/16 0625 Results 24 hrs Laboratory Tests Test 07/10/16 06:25 White Blood Count 5.0 Red Blood Count 2.68 L Hemoglobin 7.7 L Hematocrit 24.6 L Mean Corpuscular Volume 91.8 Mean Corpuscular Hemoglobin 28.7 L Mean Corpuscular Hemoglobin Concent 31.3 L Red Cell Distribution Width 19.1 H Platelet Count 67 L Mean Platelet Volume 10.7 H Neutrophils % 69.4 Lymphocytes % 18.0 Monocytes % 10.0 Eosinophils % 1.4 Basophils % 0.2 Nucleated Red Blood Cells % 0.0 Neutrophils # 3.5 Lymphocytes # 0.9 Monocytes # 0.5 Eosinophils # 0.1 Basophils # 0.0 Nucleated Red Blood Cells # 0.0 Prothrombin Time 16.1 H Prothrombin Time Ratio 1.3 INR International Normalized Ratio 1.28 Activated Partial Thromboplast Time 31.8 Thrombin Time 20.7 H Fibrinogen 223.0 Plasma Fibrin Degradation Products D-Dimer 6453.63 H D-Dimer Comment Sodium Level 138 Potassium Level 4.4 Chloride Level 112 H Carbon Dioxide Level 22 Anion Gap 8 Blood Urea Nitrogen 14 Creatinine 0.68 Glucose Level 217 Calcium Level 7.3 L Magnesium Level 1.8 Total Bilirubin 1.0 Direct Bilirubin 0.00 Indirect Bilirubin 1.0 Aspartate Amino Transf (AST/SGOT) 34 Alanine Aminotransferase (ALT/SGPT) 36 Alkaline Phosphatase 163 H Total Protein 5.4 L Albumin 2.3 L Medications Medications Current Medications Ondansetron HCl (Zofran Inj) 4 mg Q6H PRN IV NAUSEA AND/OR VOMITING; Start 06/09 at 04:30 Dutasteride (Avodart) 0.5 mg AM PO Last administered on 07/10/16 10:08; Admin Dose 0.5 MG; Start 06/09/16 at 09:00 Finasteride (Proscar) 5 mg AM PO Last administered on 07/10/16 09:00; Admin Dose 5 MG; Start 06/09/16 at 09:00 Levothyroxine Sodium (Synthroid) 50 mcg DAILY@06 PO Last administered on 06:55; Admin Dose 50 MCG; Start 06/09/16 at 06:00 Rifaximin (Xifaxan) 550 mg BID PO Last administered on 07/10/16 10:06; Admin Dose 550 MG; Start 06/11/16 at 14:30 Eye Lubricant (Artificial Tears Oph) 2 drop QID BOTH EYES Last administered on 07/10/16 13:30; Admin Dose 2 DROP; Start 06/12/16 at 13:00 Hydralazine HCl (Apresoline) 10 mg Q2H PRN IV SBP>170; Start 06/12/16 at 17:00 Acetaminophen (Tylenol Liquid) 650 mg Q4H PRN NGT PAIN AND OR ELEVATED TEMP Last administered on 07/07/16 19:02; Admin Dose 650 MG; Start 06/17/16 at 12:30 Lactulose (Enulose) 30 gm QID PO Last administered on 07/10/16 13:30; Admin Dose 30 GM; Start 06/24/16 at 21:30 Febuxostat (Uloric) 40 mg DAILY PO Last administered on 07/10/16 10:08; Admin Dose 40 MG; Start 06/25/16 at 15:00 Colchicine (Colchicine) 0.6 mg TID PRN PO gout pain Last administered on 22:45; Admin Dose 0.6 MG; Start 06/25/16 at 21:00 Lorazepam (Ativan) 1 mg Q6H PRN IV ANXIETY Last administered on 07/10/16 15:31 ; Admin Dose 1 MG; Start 06/25/16 at 18:30 Metoprolol Tartrate (Lopressor) 5 mg Q4H PRN IV HR>110 Last administered on 15:37; Admin Dose 5 MG; Start 06/28/16 at 16:00 Amiodarone HCl 200 mg 200 mg BID NGT Last administered on 07/10/16 10:06; Admin Dose 200 MG; Start 06/28/16 at 21:00 Potassium Chloride/Dextrose (D5W + KCl 20 Meq) 1,000 ml @ 50 mls/hr Q20H IV Last administered on 07/10/16 10:14; Admin Dose 50 MLS/HR; Start 07/02/16 at 20: 00 IV Flush (NS 10 ml) 10 ml PRN PRN IV IV PROTOCOL; Start 07/02/16 at 19:30 Tamsulosin HCl (Flomax) 0.4 mg HS PO Last administered on 07/09/16 20:45; Admin Dose 0.4 MG; Start 07/03/16 at 21:00 Miscellaneous Information 1 ea NOTE XX ; Start 07/05/16 at 20:00 Glucose (Glutose) 15 gm Q15M PRN PO DECREASED GLUCOSE; Start 07/05/16 at 20:00 Glucose (Glutose) 22.5 gm Q15M PRN PO DECREASED GLUCOSE; Start 07/05/16 at 20: 00 Dextrose (D50w Syringe) 25 ml Q15M PRN IV DECREASED GLUCOSE; Start 07/05/16 at 20:00 Dextrose (D50w Syringe) 50 ml Q15M PRN IV DECREASED GLUCOSE; Start 07/05/16 at 20:00 Glucagon (Glucagen) 1 mg Q15M PRN IM DECREASED GLUCOSE; Start 07/05/16 at 20:00 Glucose (Glutose) 15 gm Q15M PRN BUCCAL DECREASED GLUCOSE; Start 07/05/16 at 20 :00 Morphine Sulfate (morphine) 4 mg Q4H PRN IV PAIN Last administered on 07/10/16 00:48; Admin Dose 4 MG; Start 07/05/16 at 22:00 Metoprolol Tartrate 25 mg 25 mg BID PO Last administered on 07/10/16 10:07; Admin Dose 25 MG; Start 07/06/16 at 09:00 Dopamine HCl/ Dextrose 250 ml @ 7.35 mls/hr TITRATE IV ; Start 07/06/16 at 22: 00; Status Future Hold Prednisone (Prednisone) 20 mg DAILY GTB ; Start 07/11/16 at 09:00 Pantoprazole (Protonix Tab) 40 mg BID@06,18 PO ; Start 07/10/16 at 18:00 ARMANI VALLADARES MD Jul 10, 2016 15:52
[2016-07-10] MEDS: PANTOPRAZOLE (EC) 40 MG TAB PO SCH (18:08)
--- NOTE | 2016-07-10 20:21 | CONS ---
Date/Time of Note Date/Time of Note DATE: 07/10/16 TIME: 20:19 Assessment/Plan Assessment/Plan Chief Complaint/Hosp Course SUBJECTIVE: No acute changes. Confused, lying comfortably in bed. No fevers. INDWELLINGS: [place], PEG, PICC line, rectal tube. PHYSICAL EXAMINATION: GENERAL: This is a chronically ill-appearing, well-developed elderly man who is in no distress. HEENT: Head atraumatic, normocephalic. Sclerae anicteric. Buccal mucosa dry. NECK: Supple, trachea midline. CHEST: Rise symmetrical. Breath sounds diminished to bases. HEART: S1, S2. ABDOMEN: Distended, soft. Bowel tones hypoactive. EXTREMITIES: Bilateral edema. ASSESSMENT: 1. Status post shock. 2. S/p Dorina albicans urinary tract infection. 3. Alcoholic liver cirrhosis. 4. Hepatic encephalopathy. 5. Anemia with thrombocytopenia. 6. Status post gastrointestinal bleeding. 7. Paroxysmal atrial fibrillation. 8. History of familial Mediterranean fever. PLAN: The patient remains stable. Off abx. Continue anti-aspiration measures. Follow recommendations of consultants. DW staff Problems: Consultation Date/Type/Reason Admit Date/Time Jun 09, 2016 at 04:01 Initial Consult Date 06/09/16 Type of Consultation: ID Referring Provider: MAURY BENITEZ MD Exam/Review of Systems Vital Signs Vitals Vital Signs Date Time Temp Pulse Resp B/P Pulse Ox O2 Delivery O2 Flow Rate FiO2 07/10/16 20:15 63 07/10/16 15:50 98.3 20 128/71 98 07/10/16 14:05 Room Air 07/08/16 08:00 2.0 07/06/16 23:42 21 Intake and Output 07/09/16 07/09/16 07/10/16 15:00 23:00 07:00 Intake Total 800 ml 800 ml Output Total 700 ml 650 ml Balance 100 ml 150 ml Results Result Diagram: 07/10/16 0625 07/10/16 0625 Results 24 hrs Laboratory Tests Test 07/10/16 06:25 White Blood Count 5.0 Red Blood Count 2.68 L Hemoglobin 7.7 L Hematocrit 24.6 L Mean Corpuscular Volume 91.8 Mean Corpuscular Hemoglobin 28.7 L Mean Corpuscular Hemoglobin Concent 31.3 L Red Cell Distribution Width 19.1 H Platelet Count 67 L Mean Platelet Volume 10.7 H Neutrophils % 69.4 Lymphocytes % 18.0 Monocytes % 10.0 Eosinophils % 1.4 Basophils % 0.2 Nucleated Red Blood Cells % 0.0 Neutrophils # 3.5 Lymphocytes # 0.9 Monocytes # 0.5 Eosinophils # 0.1 Basophils # 0.0 Nucleated Red Blood Cells # 0.0 Prothrombin Time 16.1 H Prothrombin Time Ratio 1.3 INR International Normalized Ratio 1.28 Activated Partial Thromboplast Time 31.8 Thrombin Time 20.7 H Fibrinogen 223.0 Plasma Fibrin Degradation Products D-Dimer 6453.63 H D-Dimer Comment Sodium Level 138 Potassium Level 4.4 Chloride Level 112 H Carbon Dioxide Level 22 Anion Gap 8 Blood Urea Nitrogen 14 Creatinine 0.68 Glucose Level 217 Calcium Level 7.3 L Magnesium Level 1.8 Total Bilirubin 1.0 Direct Bilirubin 0.00 Indirect Bilirubin 1.0 Aspartate Amino Transf (AST/SGOT) 34 Alanine Aminotransferase (ALT/SGPT) 36 Alkaline Phosphatase 163 H Total Protein 5.4 L Albumin 2.3 L Medications Medications Current Medications Ondansetron HCl (Zofran Inj) 4 mg Q6H PRN IV NAUSEA AND/OR VOMITING; Start 06/09 at 04:30 Dutasteride (Avodart) 0.5 mg AM PO Last administered on 07/10/16 10:08; Admin Dose 0.5 MG; Start 06/09/16 at 09:00 Finasteride (Proscar) 5 mg AM PO Last administered on 07/10/16 09:00; Admin Dose 5 MG; Start 06/09/16 at 09:00 Levothyroxine Sodium (Synthroid) 50 mcg DAILY@06 PO Last administered on 06:55; Admin Dose 50 MCG; Start 06/09/16 at 06:00 Rifaximin (Xifaxan) 550 mg BID PO Last administered on 07/10/16 10:06; Admin Dose 550 MG; Start 06/11/16 at 14:30 Eye Lubricant (Artificial Tears Oph) 2 drop QID BOTH EYES Last administered on 07/10/16 13:30; Admin Dose 2 DROP; Start 06/12/16 at 13:00 Hydralazine HCl (Apresoline) 10 mg Q2H PRN IV SBP>170; Start 06/12/16 at 17:00 Acetaminophen (Tylenol Liquid) 650 mg Q4H PRN NGT PAIN AND OR ELEVATED TEMP Last administered on 07/07/16 19:02; Admin Dose 650 MG; Start 06/17/16 at 12:30 Lactulose (Enulose) 30 gm QID PO Last administered on 07/10/16 18:08; Admin Dose 30 GM; Start 06/24/16 at 21:30 Febuxostat (Uloric) 40 mg DAILY PO Last administered on 07/10/16 10:08; Admin Dose 40 MG; Start 06/25/16 at 15:00 Colchicine (Colchicine) 0.6 mg TID PRN PO gout pain Last administered on 22:45; Admin Dose 0.6 MG; Start 06/25/16 at 21:00 Lorazepam (Ativan) 1 mg Q6H PRN IV ANXIETY Last administered on 07/10/16 15:31 ; Admin Dose 1 MG; Start 06/25/16 at 18:30 Metoprolol Tartrate (Lopressor) 5 mg Q4H PRN IV HR>110 Last administered on 15:37; Admin Dose 5 MG; Start 06/28/16 at 16:00 Amiodarone HCl 200 mg 200 mg BID NGT Last administered on 07/10/16 10:06; Admin Dose 200 MG; Start 06/28/16 at 21:00 Potassium Chloride/Dextrose (D5W + KCl 20 Meq) 1,000 ml @ 50 mls/hr Q20H IV Last administered on 07/10/16 10:14; Admin Dose 50 MLS/HR; Start 07/02/16 at 20: 00 IV Flush (NS 10 ml) 10 ml PRN PRN IV IV PROTOCOL; Start 07/02/16 at 19:30 Tamsulosin HCl (Flomax) 0.4 mg HS PO Last administered on 07/09/16 20:45; Admin Dose 0.4 MG; Start 07/03/16 at 21:00 Miscellaneous Information 1 ea NOTE XX ; Start 07/05/16 at 20:00 Glucose (Glutose) 15 gm Q15M PRN PO DECREASED GLUCOSE; Start 07/05/16 at 20:00 Glucose (Glutose) 22.5 gm Q15M PRN PO DECREASED GLUCOSE; Start 07/05/16 at 20: 00 Dextrose (D50w Syringe) 25 ml Q15M PRN IV DECREASED GLUCOSE; Start 07/05/16 at 20:00 Dextrose (D50w Syringe) 50 ml Q15M PRN IV DECREASED GLUCOSE; Start 07/05/16 at 20:00 Glucagon (Glucagen) 1 mg Q15M PRN IM DECREASED GLUCOSE; Start 07/05/16 at 20:00 Glucose (Glutose) 15 gm Q15M PRN BUCCAL DECREASED GLUCOSE; Start 07/05/16 at 20 :00 Morphine Sulfate (morphine) 4 mg Q4H PRN IV PAIN Last administered on 07/10/16 00:48; Admin Dose 4 MG; Start 07/05/16 at 22:00 Metoprolol Tartrate 25 mg 25 mg BID PO Last administered on 07/10/16 10:07; Admin Dose 25 MG; Start 07/06/16 at 09:00 Dopamine HCl/ Dextrose 250 ml @ 7.35 mls/hr TITRATE IV ; Start 07/06/16 at 22: 00; Status Future Hold Prednisone (Prednisone) 20 mg DAILY GTB ; Start 07/11/16 at 09:00 Pantoprazole (Protonix Tab) 40 mg BID@06,18 PO Last administered on 07/10/16 18 :08; Admin Dose 40 MG; Start 07/10/16 at 18:00 STACIE TAMEZ NP Jul 10, 2016 20:21
[2016-07-10] MEDS: TAMSULOSIN (SR) 0.4 MG CAP PO SCH (20:52)
[2016-07-11] VITALS (12 sets, daily range): BP systolic 97–116; BP diastolic 52–67; PULSE 64–67; RESP 17–20
[2016-07-11] MEDS: D5W + KCL 20 MEQ 1,000 ML IV SCH (04:00)
[2016-07-11] MEDS: LEVOTHYROXINE 50 MCG TAB PO SCH (05:53)
[2016-07-11] MEDS: PANTOPRAZOLE (EC) 40 MG TAB PO SCH ×2 (05:53→17:24)
[2016-07-11 06:23] LABS: ADD SCAN DIFF NO
[2016-07-11 06:40] LABS: ABNORMAL IP MESSAGE 1; BASOPHILS % 0.2 % (0.0-2.0); EOSINOPHILS # 0.1 10^3/ul (0.0-0.5); EOSINOPHILS % 2.1 % (0.0-7.0); HEMATOCRIT 25.7 % (42.0-52.0); HEMOGLOBIN 8.1 g/dl (14.0-18.0); LYMPHOCYTES % 17.8 % (15.0-51.0); MEAN CORPUSCULAR HEMOGLOBIN 28.9 pg (29.0-33.0); MEAN CORPUSCULAR HGB CONC 31.5 g/dl (32.0-37.0); MEAN CORPUSCULAR VOLUME 91.8 fl (82.0-101.0); MEAN PLATELET VOLUME 11.1 fl (7.4-10.4); MONOCYTE # 0.5 10^3/ul (0.3-0.9); MONOCYTES % 9.6 % (0.0-11.0); NEUTROPHIL # 3.7 10^3/ul (1.6-7.5); NEUTROPHILS % 69.5 % (39.0-77.0); PLATELET COUNT 67 10^3/UL (140-415); RED CELL DISTRIBUTION WIDTH 18.8 % (11.5-14.5); WHITE BLOOD COUNT 5.3 10^3/ul (4.8-10.8)
[2016-07-11 06:52] LABS: POTASSIUM 3.8 mmol/L (3.5-5.1)
[2016-07-11 06:55] LABS: CALCIUM 7.7 mg/dl (8.4-10.2); CREATININE 0.7 mg/dl (0.61-1.24)
[2016-07-11] MEDS: DUTASTERIDE 0.5 MG CAP PO SCH (10:03)
[2016-07-11] MEDS: ARTIFICIAL TEARS 15 ML OPH BOTH EYES SCH ×4 (10:03→20:58)
[2016-07-11] MEDS: predniSONE 20 MG TAB GTB SCH (10:04)
[2016-07-11] MEDS: LACTULOSE 30ML CUP PO SCH ×4 (10:04→20:57)
[2016-07-11] MEDS: FEBUXOSTAT 40 MG TABLET PO SCH (10:04)
[2016-07-11] MEDS: FINASTERIDE 5 MG TAB PO SCH (10:04)
[2016-07-11] MEDS: RIFAXIMIN 550 MG TAB PO SCH ×2 (10:05→20:57)
[2016-07-11] MEDS: AMIODARONE 200 MG TAB NGT SCH ×2 (10:06→20:58)
[2016-07-11] MEDS: METOPROLOL 25 MG TAB PO SCH ×2 (10:06→20:58)
--- NOTE | 2016-07-11 10:28 | CONS ---
Date/Time of Note Date/Time of Note DATE: 07/11/16 TIME: 10:28 Assessment/Plan Assessment/Plan Chief Complaint/Hosp Course Anemia - COMPLEX, MULTIFACTORIAL WITH COMPONENT ACD, ACUTE BLOOD LOSS AND SEVERE IRON DEFICIENCY IN THE PAST * Esophageal variceal bleeding/post EVL * CONT TO MONITOR BLOOD COUNT CLOSELY * OBSERVE FOR BLEEDING AND HEMOLYSIS * PRBC NEEDED Alcoholic cirrhosis * Post variceal bleeding/post EVL * Portal encephalopathy * Ascites * Unsafe swallowing/failed swallow eval/high risk for aspiration * POST EGD plus PEG. * POST paracenteses prior to procedure. * transfer to tertiary center for transplant,process started Coagulopathy VIT K POST FFP PRIOR TO PROCEDURE Problems: Consultation Date/Type/Reason Admit Date/Time Jun 09, 2016 at 04:01 Initial Consult Date 06/09/16 Type of Consultation: hemeon Referring Provider: MAURY BENITEZ MD 24 HR Interval Summary Free Text/Dictation more awake and alert. No nausea and vomiting. Waiting for speech therapy for swallow evaluation Exam/Review of Systems Vital Signs Vitals Vital Signs Date Time Temp Pulse Resp B/P Pulse Ox O2 Delivery O2 Flow Rate FiO2 07/11/16 08:20 67 07/11/16 07:46 98.5 20 111/64 64 07/10/16 20:00 Room Air 07/08/16 08:00 2.0 Intake and Output 07/10/16 07/10/16 07/11/16 15:00 23:00 07:00 Intake Total 800 ml 1300 ml Output Total 1000 ml 1200 ml Balance -200 ml 100 ml Exam Patient is more awake and alert Tolerating PEG tube feeding No nausea vomiting Exam/Review of Systems Vital Signs Vitals Vital Signs Date Time Temp Pulse Resp B/P Pulse Ox O2 Delivery O2 Flow Rate FiO2 07/09/16 12:04 70 07/09/16 10:03 98.0 18 120/65 92 07/09/16 06:00 Room Air 07/08/16 08:00 2.0 07/06/16 23:42 21 Intake and Output 07/08/16 07/08/16 07/09/16 15:00 23:00 07:00 Intake Total 620 ml 750 ml 650 ml Output Total 630 ml 370 ml 225 ml Balance -10 ml 380 ml 425 ml Exam General: The patient is moderately overweight, Not in acute distress. HEENT: Atraumatic, normocephalic. The pupils are equal and round . Neck: Supple with full range of motion. Chest: Normal expansion of the thorax during inspiration Lungs: Clear to auscultation bilaterally Heart: Normal S1-S2, Regular rhythm and rate. Abdomen: Abdominal contour is morbidly obese, soft , nontender, nondistended , bowel sounds are present. PEG tube in place Extremities: Normal to inspection, no edema no cyanosis Neurologic: Awake and alert, although has episodes of agitation Results Result Diagram: 07/11/1658 07/11/1658 Results 24 hrs Laboratory Tests Test 07/11/16 05:58 White Blood Count 5.3 Red Blood Count 2.80 L Hemoglobin 8.1 L Hematocrit 25.7 L Mean Corpuscular Volume 91.8 Mean Corpuscular Hemoglobin 28.9 L Mean Corpuscular Hemoglobin Concent 31.5 L Red Cell Distribution Width 18.8 H Platelet Count 67 L Mean Platelet Volume 11.1 H Neutrophils % 69.5 Lymphocytes % 17.8 Monocytes % 9.6 Eosinophils % 2.1 Basophils % 0.2 Nucleated Red Blood Cells % 0.0 Neutrophils # 3.7 Lymphocytes # 1.0 Monocytes # 0.5 Eosinophils # 0.1 Basophils # 0.0 Nucleated Red Blood Cells # 0.0 Sodium Level 141 Potassium Level 3.8 Chloride Level 109 Carbon Dioxide Level 23 Anion Gap 13 Blood Urea Nitrogen 16 Creatinine 0.70 Glucose Level 109 # Calcium Level 7.7 L Medications Medications Current Medications Ondansetron HCl (Zofran Inj) 4 mg Q6H PRN IV NAUSEA AND/OR VOMITING; Start 06/09 at 04:30 Dutasteride (Avodart) 0.5 mg AM PO Last administered on 07/11/16 10:03; Admin Dose 0.5 MG; Start 06/09/16 at 09:00 Finasteride (Proscar) 5 mg AM PO Last administered on 07/11/16 10:04; Admin Dose 5 MG; Start 06/09/16 at 09:00 Levothyroxine Sodium (Synthroid) 50 mcg DAILY@06 PO Last administered on 05:53; Admin Dose 50 MCG; Start 06/09/16 at 06:00 Rifaximin (Xifaxan) 550 mg BID PO Last administered on 07/11/16 10:05; Admin Dose 550 MG; Start 06/11/16 at 14:30 Eye Lubricant (Artificial Tears Oph) 2 drop QID BOTH EYES Last administered on 07/11/16 10:03; Admin Dose 2 DROP; Start 06/12/16 at 13:00 Hydralazine HCl (Apresoline) 10 mg Q2H PRN IV SBP>170; Start 06/12/16 at 17:00 Acetaminophen (Tylenol Liquid) 650 mg Q4H PRN NGT PAIN AND OR ELEVATED TEMP Last administered on 07/07/16 19:02; Admin Dose 650 MG; Start 06/17/16 at 12:30 Lactulose (Enulose) 30 gm QID PO Last administered on 07/11/16 10:04; Admin Dose 30 GM; Start 06/24/16 at 21:30 Febuxostat (Uloric) 40 mg DAILY PO Last administered on 07/11/16 10:04; Admin Dose 40 MG; Start 06/25/16 at 15:00 Colchicine (Colchicine) 0.6 mg TID PRN PO gout pain Last administered on 22:45; Admin Dose 0.6 MG; Start 06/25/16 at 21:00 Lorazepam (Ativan) 1 mg Q6H PRN IV ANXIETY Last administered on 07/10/16 15:31 ; Admin Dose 1 MG; Start 06/25/16 at 18:30 Metoprolol Tartrate (Lopressor) 5 mg Q4H PRN IV HR>110 Last administered on 15:37; Admin Dose 5 MG; Start 06/28/16 at 16:00 Amiodarone HCl 200 mg 200 mg BID NGT Last administered on 07/11/16 10:06; Admin Dose 200 MG; Start 06/28/16 at 21:00 Potassium Chloride/Dextrose (D5W + KCl 20 Meq) 1,000 ml @ 50 mls/hr Q20H IV Last administered on 07/10/16 10:14; Admin Dose 50 MLS/HR; Start 07/02/16 at 20: 00 IV Flush (NS 10 ml) 10 ml PRN PRN IV IV PROTOCOL; Start 07/02/16 at 19:30 Tamsulosin HCl (Flomax) 0.4 mg HS PO Last administered on 07/10/16 20:52; Admin Dose 0.4 MG; Start 07/03/16 at 21:00 Miscellaneous Information 1 ea NOTE XX ; Start 07/05/16 at 20:00 Glucose (Glutose) 15 gm Q15M PRN PO DECREASED GLUCOSE; Start 07/05/16 at 20:00 Glucose (Glutose) 22.5 gm Q15M PRN PO DECREASED GLUCOSE; Start 07/05/16 at 20: 00 Dextrose (D50w Syringe) 25 ml Q15M PRN IV DECREASED GLUCOSE; Start 07/05/16 at 20:00 Dextrose (D50w Syringe) 50 ml Q15M PRN IV DECREASED GLUCOSE; Start 07/05/16 at 20:00 Glucagon (Glucagen) 1 mg Q15M PRN IM DECREASED GLUCOSE; Start 07/05/16 at 20:00 Glucose (Glutose) 15 gm Q15M PRN BUCCAL DECREASED GLUCOSE; Start 07/05/16 at 20 :00 Morphine Sulfate (morphine) 4 mg Q4H PRN IV PAIN Last administered on 07/10/16 00:48; Admin Dose 4 MG; Start 07/05/16 at 22:00 Metoprolol Tartrate 25 mg 25 mg BID PO Last administered on 07/11/16 10:06; Admin Dose 25 MG; Start 07/06/16 at 09:00 Dopamine HCl/ Dextrose 250 ml @ 7.35 mls/hr TITRATE IV ; Start 07/06/16 at 22: 00; Status Future Hold Prednisone (Prednisone) 20 mg DAILY GTB Last administered on 07/11/16 10:04; Admin Dose 20 MG; Start 07/11/16 at 09:00 Pantoprazole (Protonix Tab) 40 mg BID@06,18 PO Last administered on 07/11/16 05 :53; Admin Dose 40 MG; Start 07/10/16 at 18:00 FAYE RUSHING MD Jul 11, 2016 10:28
--- NOTE | 2016-07-11 11:02 | PN ---
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 The patient does have an iron deficiency anemia I am going to go ahead and replete that. I will replace him on diuretic therapy to help compensate for the cirrhosis and avoid the onset of fluid overload/ascites (2) Esophageal ulcer Status: Acute Comment: Coming under control nicely; no active bleeding Qualifiers: Esophageal ulcer bleeding: with bleeding Qualified Code: K22.11 - Ulcer of esophagus with bleeding (3) Hypothyroidism (acquired) Status: Chronic Comment: On replacement (4) BPH (benign prostatic hyperplasia) Status: Chronic Comment: On treatment stable Qualifiers: Prostatic enlargement morphology: unspecified morphology Lower urinary tract symptom presence: presence of symptoms unspecified Qualified Code: N40.0 - Benign prostatic hyperplasia, presence of lower urinary tract symptoms unspecified, unspecified morphology (5) FMF (familial Mediterranean fever) Status: Chronic Comment: He is still on the prednisone elevated at a lower dose. Once again I am curious as to have a formalized opinion from infectious disease that started the prednisone about how long and a what dosing to use this (6) Status post insertion of percutaneous endoscopic gastrostomy (PEG) tube Status: Acute Comment: Being fed swallowing study tomorrow Subjective 24 Hr Interval Summary Free Text/Dictation Hospital day 33 patient asleep in the bed family at bedside Exam/Review of Systems Vital Signs Vitals Vital Signs Date Time Temp Pulse Resp B/P Pulse Ox O2 Delivery O2 Flow Rate FiO2 07/11/16 08:20 67 07/11/16 07:46 98.5 20 111/64 64 07/10/16 20:00 Room Air 07/08/16 08:00 2.0 Intake and Output 07/10/16 07/10/16 07/11/16 15:00 23:00 07:00 Intake Total 800 ml 1300 ml Output Total 1000 ml 1200 ml Balance -200 ml 100 ml Exam Neck: non-tender, supple Respiratory: clear to auscultation, normal air movement Cardiovascular: nl pulses, regular rate and rhythm Extremities: edema (1+ edema) Results Result Diagram: 07/11/1658 07/11/16 0558 Results 24 hrs Laboratory Tests Test 07/11/16 05:58 White Blood Count 5.3 Red Blood Count 2.80 L Hemoglobin 8.1 L Hematocrit 25.7 L Mean Corpuscular Volume 91.8 Mean Corpuscular Hemoglobin 28.9 L Mean Corpuscular Hemoglobin Concent 31.5 L Red Cell Distribution Width 18.8 H Platelet Count 67 L Mean Platelet Volume 11.1 H Neutrophils % 69.5 Lymphocytes % 17.8 Monocytes % 9.6 Eosinophils % 2.1 Basophils % 0.2 Nucleated Red Blood Cells % 0.0 Neutrophils # 3.7 Lymphocytes # 1.0 Monocytes # 0.5 Eosinophils # 0.1 Basophils # 0.0 Nucleated Red Blood Cells # 0.0 Sodium Level 141 Potassium Level 3.8 Chloride Level 109 Carbon Dioxide Level 23 Anion Gap 13 Blood Urea Nitrogen 16 Creatinine 0.70 Glucose Level 109 # Calcium Level 7.7 L Medications Medications Current Medications Ondansetron HCl (Zofran Inj) 4 mg Q6H PRN IV NAUSEA AND/OR VOMITING; Start 06/09 at 04:30 Dutasteride (Avodart) 0.5 mg AM PO Last administered on 07/11/16 10:03; Admin Dose 0.5 MG; Start 06/09/16 at 09:00 Finasteride (Proscar) 5 mg AM PO Last administered on 07/11/16 10:04; Admin Dose 5 MG; Start 06/09/16 at 09:00 Levothyroxine Sodium (Synthroid) 50 mcg DAILY@06 PO Last administered on 05:53; Admin Dose 50 MCG; Start 06/09/16 at 06:00 Rifaximin (Xifaxan) 550 mg BID PO Last administered on 07/11/16 10:05; Admin Dose 550 MG; Start 06/11/16 at 14:30 Eye Lubricant (Artificial Tears Oph) 2 drop QID BOTH EYES Last administered on 07/11/16 10:03; Admin Dose 2 DROP; Start 06/12/16 at 13:00 Hydralazine HCl (Apresoline) 10 mg Q2H PRN IV SBP>170; Start 06/12/16 at 17:00 Acetaminophen (Tylenol Liquid) 650 mg Q4H PRN NGT PAIN AND OR ELEVATED TEMP Last administered on 07/07/16 19:02; Admin Dose 650 MG; Start 06/17/16 at 12:30 Lactulose (Enulose) 30 gm QID PO Last administered on 07/11/16 10:04; Admin Dose 30 GM; Start 06/24/16 at 21:30 Febuxostat (Uloric) 40 mg DAILY PO Last administered on 07/11/16 10:04; Admin Dose 40 MG; Start 06/25/16 at 15:00 Colchicine (Colchicine) 0.6 mg TID PRN PO gout pain Last administered on 22:45; Admin Dose 0.6 MG; Start 06/25/16 at 21:00 Lorazepam (Ativan) 1 mg Q6H PRN IV ANXIETY Last administered on 07/10/16 15:31 ; Admin Dose 1 MG; Start 06/25/16 at 18:30 Metoprolol Tartrate (Lopressor) 5 mg Q4H PRN IV HR>110 Last administered on 15:37; Admin Dose 5 MG; Start 06/28/16 at 16:00 Amiodarone HCl 200 mg 200 mg BID NGT Last administered on 07/11/16 10:06; Admin Dose 200 MG; Start 06/28/16 at 21:00 Potassium Chloride/Dextrose (D5W + KCl 20 Meq) 1,000 ml @ 50 mls/hr Q20H IV Last administered on 07/10/16 10:14; Admin Dose 50 MLS/HR; Start 07/02/16 at 20: 00 IV Flush (NS 10 ml) 10 ml PRN PRN IV IV PROTOCOL; Start 07/02/16 at 19:30 Tamsulosin HCl (Flomax) 0.4 mg HS PO Last administered on 07/10/16 20:52; Admin Dose 0.4 MG; Start 07/03/16 at 21:00 Miscellaneous Information 1 ea NOTE XX ; Start 07/05/16 at 20:00 Glucose (Glutose) 15 gm Q15M PRN PO DECREASED GLUCOSE; Start 07/05/16 at 20:00 Glucose (Glutose) 22.5 gm Q15M PRN PO DECREASED GLUCOSE; Start 07/05/16 at 20: 00 Dextrose (D50w Syringe) 25 ml Q15M PRN IV DECREASED GLUCOSE; Start 07/05/16 at 20:00 Dextrose (D50w Syringe) 50 ml Q15M PRN IV DECREASED GLUCOSE; Start 07/05/16 at 20:00 Glucagon (Glucagen) 1 mg Q15M PRN IM DECREASED GLUCOSE; Start 07/05/16 at 20:00 Glucose (Glutose) 15 gm Q15M PRN BUCCAL DECREASED GLUCOSE; Start 07/05/16 at 20 :00 Morphine Sulfate (morphine) 4 mg Q4H PRN IV PAIN Last administered on 07/10/16 00:48; Admin Dose 4 MG; Start 07/05/16 at 22:00 Metoprolol Tartrate 25 mg 25 mg BID PO Last administered on 07/11/16 10:06; Admin Dose 25 MG; Start 07/06/16 at 09:00 Dopamine HCl/ Dextrose 250 ml @ 7.35 mls/hr TITRATE IV ; Start 07/06/16 at 22: 00; Status Future Hold Prednisone (Prednisone) 20 mg DAILY GTB Last administered on 07/11/16 10:04; Admin Dose 20 MG; Start 07/11/16 at 09:00 Pantoprazole (Protonix Tab) 40 mg BID@06,18 PO Last administered on 07/11/16 05 :53; Admin Dose 40 MG; Start 07/10/16 at 18:00 MAG CADENA MD Jul 11, 2016 11:02
[2016-07-11] MEDS: FUROSEMIDE 20 MG TAB GTB SCH (11:35)
[2016-07-11] MEDS: SOD FERRIC GLUC COMPLX 125 MG in SOD CHLORIDE 0.9% 100 ML IVPB SCH (13:28)
--- NOTE | 2016-07-11 15:15 | CONS ---
Date/Time of Note Date/Time of Note DATE: 07/11/16 TIME: 15:14 Assessment/Plan Assessment/Plan Additional Assessment/Plan Paroxysmal atrial fibrillation in Normal Sinus Rhythm Abnormal electrocardiogram. Gastrointestinal bleed.-s/p EGD with esophageal ulcers/varices s/p banding Cirrhosis with ascites Encephalopathy Anemia Coagulopathy PNA ARF Hypotension-off pressors BPH Continue Metoprolol and amiodarone Off Anticoagulation due to ongoing bleed Continue Lactulose Continue antibiotics Continue Prednisone Continue BPH meds as scheduled Consultation Date/Type/Reason Admit Date/Time Jun 09, 2016 at 04:01 Initial Consult Date 06/09/16 [facility] Referring Provider: MAURY BENITEZ MD Exam/Review of Systems Vital Signs Vitals Vital Signs Date Time Temp Pulse Resp B/P Pulse Ox O2 Delivery O2 Flow Rate FiO2 07/11/16 12:03 64 07/11/16 11:30 98.7 20 106/61 95 07/10/16 20:00 Room Air 07/08/16 08:00 2.0 Intake and Output 07/10/16 07/10/16 07/11/16 15:00 23:00 07:00 Intake Total 800 ml 1300 ml Output Total 1000 ml 1200 ml Balance -200 ml 100 ml Exam Constitutional: other (confused and lethargic) Head: atraumatic, normocephalic Neck: non-tender, supple Respiratory: clear to auscultation Cardiovascular: regular rate and rhythm Gastrointestinal: distended, non-tender, other (ascites), soft Extremities: edema Results Result Diagram: 07/11/16 0558 07/11/16 0558 Results 24 hrs Laboratory Tests Test 07/11/16 05:58 White Blood Count 5.3 Red Blood Count 2.80 L Hemoglobin 8.1 L Hematocrit 25.7 L Mean Corpuscular Volume 91.8 Mean Corpuscular Hemoglobin 28.9 L Mean Corpuscular Hemoglobin Concent 31.5 L Red Cell Distribution Width 18.8 H Platelet Count 67 L Mean Platelet Volume 11.1 H Neutrophils % 69.5 Lymphocytes % 17.8 Monocytes % 9.6 Eosinophils % 2.1 Basophils % 0.2 Nucleated Red Blood Cells % 0.0 Neutrophils # 3.7 Lymphocytes # 1.0 Monocytes # 0.5 Eosinophils # 0.1 Basophils # 0.0 Nucleated Red Blood Cells # 0.0 Sodium Level 141 Potassium Level 3.8 Chloride Level 109 Carbon Dioxide Level 23 Anion Gap 13 Blood Urea Nitrogen 16 Creatinine 0.70 Glucose Level 109 # Calcium Level 7.7 L Medications Medications Current Medications Ondansetron HCl (Zofran Inj) 4 mg Q6H PRN IV NAUSEA AND/OR VOMITING; Start 06/09 at 04:30 Dutasteride (Avodart) 0.5 mg AM PO Last administered on 07/11/16 10:03; Admin Dose 0.5 MG; Start 06/09/16 at 09:00 Finasteride (Proscar) 5 mg AM PO Last administered on 07/11/16 10:04; Admin Dose 5 MG; Start 06/09/16 at 09:00 Levothyroxine Sodium (Synthroid) 50 mcg DAILY@06 PO Last administered on 05:53; Admin Dose 50 MCG; Start 06/09/16 at 06:00 Rifaximin (Xifaxan) 550 mg BID PO Last administered on 07/11/16 10:05; Admin Dose 550 MG; Start 06/11/16 at 14:30 Eye Lubricant (Artificial Tears Oph) 2 drop QID BOTH EYES Last administered on 07/11/16 10:03; Admin Dose 2 DROP; Start 06/12/16 at 13:00 Hydralazine HCl (Apresoline) 10 mg Q2H PRN IV SBP>170; Start 06/12/16 at 17:00 Acetaminophen (Tylenol Liquid) 650 mg Q4H PRN NGT PAIN AND OR ELEVATED TEMP Last administered on 07/07/16 19:02; Admin Dose 650 MG; Start 06/17/16 at 12:30 Lactulose (Enulose) 30 gm QID PO Last administered on 07/11/16 13:29; Admin Dose 30 GM; Start 06/24/16 at 21:30 Febuxostat (Uloric) 40 mg DAILY PO Last administered on 07/11/16 10:04; Admin Dose 40 MG; Start 06/25/16 at 15:00 Colchicine (Colchicine) 0.6 mg TID PRN PO gout pain Last administered on 22:45; Admin Dose 0.6 MG; Start 06/25/16 at 21:00 Lorazepam (Ativan) 1 mg Q6H PRN IV ANXIETY Last administered on 07/10/16 15:31 ; Admin Dose 1 MG; Start 06/25/16 at 18:30 Metoprolol Tartrate (Lopressor) 5 mg Q4H PRN IV HR>110 Last administered on 15:37; Admin Dose 5 MG; Start 06/28/16 at 16:00 Amiodarone HCl 200 mg 200 mg BID NGT Last administered on 07/11/16 10:06; Admin Dose 200 MG; Start 06/28/16 at 21:00 Potassium Chloride/Dextrose (D5W + KCl 20 Meq) 1,000 ml @ 50 mls/hr Q20H IV Last administered on 07/10/16 10:14; Admin Dose 50 MLS/HR; Start 07/02/16 at 20: 00 IV Flush (NS 10 ml) 10 ml PRN PRN IV IV PROTOCOL; Start 07/02/16 at 19:30 Tamsulosin HCl (Flomax) 0.4 mg HS PO Last administered on 07/10/16 20:52; Admin Dose 0.4 MG; Start 07/03/16 at 21:00 Miscellaneous Information 1 ea NOTE XX ; Start 07/05/16 at 20:00 Glucose (Glutose) 15 gm Q15M PRN PO DECREASED GLUCOSE; Start 07/05/16 at 20:00 Glucose (Glutose) 22.5 gm Q15M PRN PO DECREASED GLUCOSE; Start 07/05/16 at 20: 00 Dextrose (D50w Syringe) 25 ml Q15M PRN IV DECREASED GLUCOSE; Start 07/05/16 at 20:00 Dextrose (D50w Syringe) 50 ml Q15M PRN IV DECREASED GLUCOSE; Start 07/05/16 at 20:00 Glucagon (Glucagen) 1 mg Q15M PRN IM DECREASED GLUCOSE; Start 07/05/16 at 20:00 Glucose (Glutose) 15 gm Q15M PRN BUCCAL DECREASED GLUCOSE; Start 07/05/16 at 20 :00 Morphine Sulfate (morphine) 4 mg Q4H PRN IV PAIN Last administered on 07/10/16 00:48; Admin Dose 4 MG; Start 07/05/16 at 22:00 Metoprolol Tartrate 25 mg 25 mg BID PO Last administered on 07/11/16 10:06; Admin Dose 25 MG; Start 07/06/16 at 09:00 Dopamine HCl/ Dextrose 250 ml @ 7.35 mls/hr TITRATE IV ; Start 07/06/16 at 22: 00; Status Future Hold Prednisone (Prednisone) 20 mg DAILY GTB Last administered on 07/11/16 10:04; Admin Dose 20 MG; Start 07/11/16 at 09:00 Pantoprazole 40 mg 40 mg BID@06,18 PO Last administered on 07/11/16 05:53; Admin Dose 40 MG; Start 07/10/16 at 18:00 Ferric Sodium Gluconate Complex/ Sodium Chloride (Ferrlecit/NS) 110 ml @ 100 mls/hr Q24H IVPB Last administered on 07/11/16 13:28; Admin Dose 100 MLS/HR; Start 07/11/16 at 11:00; Stop 07/13/16 at 12:05 Furosemide (Lasix) 20 mg DAILY GTB Last administered on 07/11/16 11:35; Admin Dose 20 MG; Start 07/11/16 at 11:00 KRISHNA VINES M.D. Jul 11, 2016 15:15
--- NOTE | 2016-07-11 16:46 | CONS ---
Date/Time of Note Date/Time of Note DATE: 07/11/16 TIME: 16:29 Assessment/Plan Assessment/Plan Chief Complaint/Hosp Course Assessment 1. Hematochezia 2. Blood in gastrostomy tube 3. Esophageal variceal bleeding/post EVL 4. Anemia secondary to #1-3 * S/p repeat EGD 06/30: Post EVL ulcers. * S/p repeat EGD 07/02: 1. Multiple esophageal ulcers. Post-endoscopic variceal ligation with no active bleeding but positive stigmata of recent bleeding. 2. Gastrostomy tube in place and in good condition. 3. No other bleeding site or potential bleeding site identified. 5. Alcoholic cirrhosis 6. Unsafe swallowing/failed swallow eval/high risk for aspiration Recommendations: 1. Continue Metoprolol and amiodarone 2. Ok to restart Anticoagulation if indicated per primary 3. Continue Lactulose and rifaximen for encephalopathy 4. Continue antibiotics 5. monitor for e/o overt GIB if anticoagulation restarted. May need repeat EGD 6. continue protonix 40 mg bid 7. continue tube feeds. Problems: Consultation Date/Type/Reason Admit Date/Time Jun 09, 2016 at 04:01 Initial Consult Date 06/09/16 Type of Consultation: GI Referring Provider: MAURY BENITEZ MD 24 HR Interval Summary Free Text/Dictation no n/v, appears comfortable, tolerating tube feeds. Exam/Review of Systems Vital Signs Vitals Vital Signs Date Time Temp Pulse Resp B/P Pulse Ox O2 Delivery O2 Flow Rate FiO2 07/11/16 16:05 67 07/11/16 16:04 97.9 18 112/62 97 07/10/16 20:00 Room Air 07/08/16 08:00 2.0 Intake and Output 07/10/16 07/10/16 07/11/16 15:00 23:00 07:00 Intake Total 800 ml 1300 ml Output Total 1000 ml 1200 ml Balance -200 ml 100 ml Exam Head: atraumatic, normocephalic Eyes: EOMI, nl conjunctiva, nl lids, nl sclera ENMT: mucosa pink and moist, nl external ears & nose, nl lips & teeth, nl nasal mucosa & septum Neck: non-tender, supple Respiratory: clear to auscultation, normal air movement Cardiovascular: nl pulses, regular rate and rhythm Gastrointestinal: bowel sounds, non-tender, other (G tube intact), soft Results Result Diagram: 07/11/16 0558 07/11/16 0558 Results 24 hrs Laboratory Tests Test 07/11/16 05:58 White Blood Count 5.3 Red Blood Count 2.80 L Hemoglobin 8.1 L Hematocrit 25.7 L Mean Corpuscular Volume 91.8 Mean Corpuscular Hemoglobin 28.9 L Mean Corpuscular Hemoglobin Concent 31.5 L Red Cell Distribution Width 18.8 H Platelet Count 67 L Mean Platelet Volume 11.1 H Neutrophils % 69.5 Lymphocytes % 17.8 Monocytes % 9.6 Eosinophils % 2.1 Basophils % 0.2 Nucleated Red Blood Cells % 0.0 Neutrophils # 3.7 Lymphocytes # 1.0 Monocytes # 0.5 Eosinophils # 0.1 Basophils # 0.0 Nucleated Red Blood Cells # 0.0 Sodium Level 141 Potassium Level 3.8 Chloride Level 109 Carbon Dioxide Level 23 Anion Gap 13 Blood Urea Nitrogen 16 Creatinine 0.70 Glucose Level 109 # Calcium Level 7.7 L Medications Medications Current Medications Ondansetron HCl (Zofran Inj) 4 mg Q6H PRN IV NAUSEA AND/OR VOMITING; Start 06/09 at 04:30 Dutasteride (Avodart) 0.5 mg AM PO Last administered on 07/11/16 10:03; Admin Dose 0.5 MG; Start 06/09/16 at 09:00 Finasteride (Proscar) 5 mg AM PO Last administered on 07/11/16 10:04; Admin Dose 5 MG; Start 06/09/16 at 09:00 Levothyroxine Sodium (Synthroid) 50 mcg DAILY@06 PO Last administered on 05:53; Admin Dose 50 MCG; Start 06/09/16 at 06:00 Rifaximin (Xifaxan) 550 mg BID PO Last administered on 07/11/16 10:05; Admin Dose 550 MG; Start 06/11/16 at 14:30 Eye Lubricant (Artificial Tears Oph) 2 drop QID BOTH EYES Last administered on 07/11/16 10:03; Admin Dose 2 DROP; Start 06/12/16 at 13:00 Hydralazine HCl (Apresoline) 10 mg Q2H PRN IV SBP>170; Start 06/12/16 at 17:00 Acetaminophen (Tylenol Liquid) 650 mg Q4H PRN NGT PAIN AND OR ELEVATED TEMP Last administered on 07/07/16 19:02; Admin Dose 650 MG; Start 06/17/16 at 12:30 Lactulose (Enulose) 30 gm QID PO Last administered on 07/11/16 13:29; Admin Dose 30 GM; Start 06/24/16 at 21:30 Febuxostat (Uloric) 40 mg DAILY PO Last administered on 07/11/16 10:04; Admin Dose 40 MG; Start 06/25/16 at 15:00 Colchicine (Colchicine) 0.6 mg TID PRN PO gout pain Last administered on 22:45; Admin Dose 0.6 MG; Start 06/25/16 at 21:00 Lorazepam (Ativan) 1 mg Q6H PRN IV ANXIETY Last administered on 07/10/16 15:31 ; Admin Dose 1 MG; Start 06/25/16 at 18:30 Metoprolol Tartrate (Lopressor) 5 mg Q4H PRN IV HR>110 Last administered on 15:37; Admin Dose 5 MG; Start 06/28/16 at 16:00 Amiodarone HCl 200 mg 200 mg BID NGT Last administered on 07/11/16 10:06; Admin Dose 200 MG; Start 06/28/16 at 21:00 Potassium Chloride/Dextrose (D5W + KCl 20 Meq) 1,000 ml @ 50 mls/hr Q20H IV Last administered on 07/10/16 10:14; Admin Dose 50 MLS/HR; Start 07/02/16 at 20: 00 IV Flush (NS 10 ml) 10 ml PRN PRN IV IV PROTOCOL; Start 07/02/16 at 19:30 Tamsulosin HCl (Flomax) 0.4 mg HS PO Last administered on 07/10/16 20:52; Admin Dose 0.4 MG; Start 07/03/16 at 21:00 Miscellaneous Information 1 ea NOTE XX ; Start 07/05/16 at 20:00 Glucose (Glutose) 15 gm Q15M PRN PO DECREASED GLUCOSE; Start 07/05/16 at 20:00 Glucose (Glutose) 22.5 gm Q15M PRN PO DECREASED GLUCOSE; Start 07/05/16 at 20: 00 Dextrose (D50w Syringe) 25 ml Q15M PRN IV DECREASED GLUCOSE; Start 07/05/16 at 20:00 Dextrose (D50w Syringe) 50 ml Q15M PRN IV DECREASED GLUCOSE; Start 07/05/16 at 20:00 Glucagon (Glucagen) 1 mg Q15M PRN IM DECREASED GLUCOSE; Start 07/05/16 at 20:00 Glucose (Glutose) 15 gm Q15M PRN BUCCAL DECREASED GLUCOSE; Start 07/05/16 at 20 :00 Morphine Sulfate (morphine) 4 mg Q4H PRN IV PAIN Last administered on 07/10/16 00:48; Admin Dose 4 MG; Start 07/05/16 at 22:00 Metoprolol Tartrate 25 mg 25 mg BID PO Last administered on 07/11/16 10:06; Admin Dose 25 MG; Start 07/06/16 at 09:00 Dopamine HCl/ Dextrose 250 ml @ 7.35 mls/hr TITRATE IV ; Start 07/06/16 at 22: 00; Status Future Hold Prednisone (Prednisone) 20 mg DAILY GTB Last administered on 07/11/16 10:04; Admin Dose 20 MG; Start 07/11/16 at 09:00 Pantoprazole 40 mg 40 mg BID@06,18 PO Last administered on 07/11/16 05:53; Admin Dose 40 MG; Start 07/10/16 at 18:00 Ferric Sodium Gluconate Complex/ Sodium Chloride (Ferrlecit/NS) 110 ml @ 100 mls/hr Q24H IVPB Last administered on 07/11/16 13:28; Admin Dose 100 MLS/HR; Start 07/11/16 at 11:00; Stop 07/13/16 at 12:05 Furosemide (Lasix) 20 mg DAILY GTB Last administered on 07/11/16 11:35; Admin Dose 20 MG; Start 07/11/16 at 11:00 ARMANI VALLADARES MD Jul 11, 2016 16:39
--- NOTE | 2016-07-11 18:04 | CONS ---
Date/Time of Note Date/Time of Note DATE: 07/11/16 TIME: 18:04 Assessment/Plan Assessment/Plan Chief Complaint/Hosp Course SUBJECTIVE: No acute changes, lying comfortably in bed. No fevers. INDWELLINGS: [place], PEG, PICC line, rectal tube. PHYSICAL EXAMINATION: GENERAL: This is a chronically ill-appearing, well-developed elderly man who is in no distress. HEENT: Head atraumatic, normocephalic. Sclerae anicteric. Buccal mucosa dry. NECK: Supple, trachea midline. CHEST: Rise symmetrical. Breath sounds diminished to bases. HEART: S1, S2. ABDOMEN: Distended, soft. Bowel tones hypoactive. EXTREMITIES: Bilateral edema. ASSESSMENT: 1. Status post shock. 2. S/p Dorina albicans urinary tract infection. 3. Alcoholic liver cirrhosis. 4. Hepatic encephalopathy. 5. Anemia with thrombocytopenia. 6. Status post gastrointestinal bleeding. 7. Paroxysmal atrial fibrillation. 8. History of familial Mediterranean fever. PLAN: Remains stable.Continue anti-aspiration measures. Follow recommendations of consultants. DW staff Problems: Consultation Date/Type/Reason Admit Date/Time Jun 09, 2016 at 04:01 Initial Consult Date 06/09/16 Type of Consultation: id Referring Provider: MAURY BENITEZ MD Exam/Review of Systems Vital Signs Vitals Vital Signs Date Time Temp Pulse Resp B/P Pulse Ox O2 Delivery O2 Flow Rate FiO2 07/11/16 16:05 67 07/11/16 16:04 97.9 18 112/62 97 07/10/16 20:00 Room Air 07/08/16 08:00 2.0 Intake and Output 07/10/16 07/10/16 07/11/16 15:00 23:00 07:00 Intake Total 800 ml 1300 ml Output Total 1000 ml 1200 ml Balance -200 ml 100 ml Results Result Diagram: 07/11/16 0558 07/11/16 0558 Results 24 hrs Laboratory Tests Test 07/11/16 05:58 White Blood Count 5.3 Red Blood Count 2.80 L Hemoglobin 8.1 L Hematocrit 25.7 L Mean Corpuscular Volume 91.8 Mean Corpuscular Hemoglobin 28.9 L Mean Corpuscular Hemoglobin Concent 31.5 L Red Cell Distribution Width 18.8 H Platelet Count 67 L Mean Platelet Volume 11.1 H Neutrophils % 69.5 Lymphocytes % 17.8 Monocytes % 9.6 Eosinophils % 2.1 Basophils % 0.2 Nucleated Red Blood Cells % 0.0 Neutrophils # 3.7 Lymphocytes # 1.0 Monocytes # 0.5 Eosinophils # 0.1 Basophils # 0.0 Nucleated Red Blood Cells # 0.0 Sodium Level 141 Potassium Level 3.8 Chloride Level 109 Carbon Dioxide Level 23 Anion Gap 13 Blood Urea Nitrogen 16 Creatinine 0.70 Glucose Level 109 # Calcium Level 7.7 L Medications Medications Current Medications Ondansetron HCl (Zofran Inj) 4 mg Q6H PRN IV NAUSEA AND/OR VOMITING; Start 06/09 at 04:30 Dutasteride (Avodart) 0.5 mg AM PO Last administered on 07/11/16 10:03; Admin Dose 0.5 MG; Start 06/09/16 at 09:00 Finasteride (Proscar) 5 mg AM PO Last administered on 07/11/16 10:04; Admin Dose 5 MG; Start 06/09/16 at 09:00 Levothyroxine Sodium (Synthroid) 50 mcg DAILY@06 PO Last administered on 05:53; Admin Dose 50 MCG; Start 06/09/16 at 06:00 Rifaximin (Xifaxan) 550 mg BID PO Last administered on 07/11/16 10:05; Admin Dose 550 MG; Start 06/11/16 at 14:30 Eye Lubricant (Artificial Tears Oph) 2 drop QID BOTH EYES Last administered on 07/11/16 10:03; Admin Dose 2 DROP; Start 06/12/16 at 13:00 Hydralazine HCl (Apresoline) 10 mg Q2H PRN IV SBP>170; Start 06/12/16 at 17:00 Acetaminophen (Tylenol Liquid) 650 mg Q4H PRN NGT PAIN AND OR ELEVATED TEMP Last administered on 07/07/16 19:02; Admin Dose 650 MG; Start 06/17/16 at 12:30 Lactulose (Enulose) 30 gm QID PO Last administered on 07/11/16 17:24; Admin Dose 30 GM; Start 06/24/16 at 21:30 Febuxostat (Uloric) 40 mg DAILY PO Last administered on 07/11/16 10:04; Admin Dose 40 MG; Start 06/25/16 at 15:00 Colchicine (Colchicine) 0.6 mg TID PRN PO gout pain Last administered on 22:45; Admin Dose 0.6 MG; Start 06/25/16 at 21:00 Lorazepam (Ativan) 1 mg Q6H PRN IV ANXIETY Last administered on 07/10/16 15:31 ; Admin Dose 1 MG; Start 06/25/16 at 18:30 Metoprolol Tartrate (Lopressor) 5 mg Q4H PRN IV HR>110 Last administered on 15:37; Admin Dose 5 MG; Start 06/28/16 at 16:00 Amiodarone HCl 200 mg 200 mg BID NGT Last administered on 07/11/16 10:06; Admin Dose 200 MG; Start 06/28/16 at 21:00 Potassium Chloride/Dextrose (D5W + KCl 20 Meq) 1,000 ml @ 50 mls/hr Q20H IV Last administered on 07/10/16 10:14; Admin Dose 50 MLS/HR; Start 07/02/16 at 20: 00 IV Flush (NS 10 ml) 10 ml PRN PRN IV IV PROTOCOL; Start 07/02/16 at 19:30 Tamsulosin HCl (Flomax) 0.4 mg HS PO Last administered on 07/10/16 20:52; Admin Dose 0.4 MG; Start 07/03/16 at 21:00 Miscellaneous Information 1 ea NOTE XX ; Start 07/05/16 at 20:00 Glucose (Glutose) 15 gm Q15M PRN PO DECREASED GLUCOSE; Start 07/05/16 at 20:00 Glucose (Glutose) 22.5 gm Q15M PRN PO DECREASED GLUCOSE; Start 07/05/16 at 20: 00 Dextrose (D50w Syringe) 25 ml Q15M PRN IV DECREASED GLUCOSE; Start 07/05/16 at 20:00 Dextrose (D50w Syringe) 50 ml Q15M PRN IV DECREASED GLUCOSE; Start 07/05/16 at 20:00 Glucagon (Glucagen) 1 mg Q15M PRN IM DECREASED GLUCOSE; Start 07/05/16 at 20:00 Glucose (Glutose) 15 gm Q15M PRN BUCCAL DECREASED GLUCOSE; Start 07/05/16 at 20 :00 Morphine Sulfate (morphine) 4 mg Q4H PRN IV PAIN Last administered on 07/10/16 00:48; Admin Dose 4 MG; Start 07/05/16 at 22:00 Metoprolol Tartrate 25 mg 25 mg BID PO Last administered on 07/11/16 10:06; Admin Dose 25 MG; Start 07/06/16 at 09:00 Dopamine HCl/ Dextrose 250 ml @ 7.35 mls/hr TITRATE IV ; Start 07/06/16 at 22: 00; Status Future Hold Prednisone (Prednisone) 20 mg DAILY GTB Last administered on 07/11/16 10:04; Admin Dose 20 MG; Start 07/11/16 at 09:00 Pantoprazole 40 mg 40 mg BID@06,18 PO Last administered on 07/11/16 17:24; Admin Dose 40 MG; Start 07/10/16 at 18:00 Ferric Sodium Gluconate Complex/ Sodium Chloride (Ferrlecit/NS) 110 ml @ 100 mls/hr Q24H IVPB Last administered on 07/11/16 13:28; Admin Dose 100 MLS/HR; Start 07/11/16 at 11:00; Stop 07/13/16 at 12:05 Furosemide (Lasix) 20 mg DAILY GTB Last administered on 07/11/16 11:35; Admin Dose 20 MG; Start 07/11/16 at 11:00 STACIE TAMEZ NP Jul 11, 2016 18:04
[2016-07-11] MEDS: TAMSULOSIN (SR) 0.4 MG CAP PO SCH (20:57)
[2016-07-11] MEDS: morphine 4 MG/ML VIAL IV PRN (20:59)
[2016-07-12] VITALS (11 sets, daily range): BP systolic 95–116; BP diastolic 53–60; PULSE 64–74; RESP 17–20
[2016-07-12] MEDS: morphine 4 MG/ML VIAL IV PRN ×2 (01:10→20:50)
[2016-07-12] MEDS: LEVOTHYROXINE 50 MCG TAB PO SCH (06:21)
[2016-07-12] MEDS: PANTOPRAZOLE (EC) 40 MG TAB PO SCH ×2 (06:21→18:36)
[2016-07-12 07:09] LABS: ADD SCAN DIFF NO
[2016-07-12 07:17] LABS: ABNORMAL IP MESSAGE 1; BASOPHILS % 0.2 % (0.0-2.0); EOSINOPHILS # 0.1 10^3/ul (0.0-0.5); EOSINOPHILS % 2.6 % (0.0-7.0); HEMOGLOBIN 8.5 g/dl (14.0-18.0); LYMPHOCYTES % 20.5 % (15.0-51.0); MEAN CORPUSCULAR HGB CONC 30.4 g/dl (32.0-37.0); MEAN CORPUSCULAR VOLUME 92.1 fl (82.0-101.0); MEAN PLATELET VOLUME 12.1 fl (7.4-10.4); MONOCYTE # 0.6 10^3/ul (0.3-0.9); NEUTROPHIL # 3.3 10^3/ul (1.6-7.5); NEUTROPHILS % 65.1 % (39.0-77.0); PLATELET COUNT 73 10^3/UL (140-415); RED BLOOD COUNT 3.04 10^6/ul (4.70-6.10); RED CELL DISTRIBUTION WIDTH 19.4 % (11.5-14.5)
[2016-07-12 07:34] LABS: CREATININE 0.7 mg/dl (0.61-1.24)
[2016-07-12 07:35] LABS: CALCIUM 7.7 mg/dl (8.4-10.2)
--- NOTE | 2016-07-12 10:53 | CONS ---
Date/Time of Note Date/Time of Note DATE: 07/12/16 TIME: 10:53 Assessment/Plan Assessment/Plan Chief Complaint/Hosp Course Assessment 1. Hematochezia 2. Blood in gastrostomy tube 3. Esophageal variceal bleeding/post EVL 4. Anemia secondary to #1-3 * S/p repeat EGD 06/30: Post EVL ulcers. * S/p repeat EGD 07/02: 1. Multiple esophageal ulcers. Post-endoscopic variceal ligation with no active bleeding but positive stigmata of recent bleeding. 2. Gastrostomy tube in place and in good condition. 3. No other bleeding site or potential bleeding site identified. 5. Alcoholic cirrhosis 6. Unsafe swallowing/failed swallow eval/high risk for aspiration Recommendations: 1. Continue Metoprolol and amiodarone 2. Ok to restart Anticoagulation if indicated per primary 3. Continue Lactulose and rifaximen for encephalopathy 4. Continue antibiotics 5. monitor for e/o overt GIB if anticoagulation restarted. May need repeat EGD 6. continue protonix 40 mg bid 7. continue tube feeds. 8. swallow eval to see if patient can tolerate PO now that he is more alert 9. Dr. Arce to resume care of this patient tomorrow Problems: Consultation Date/Type/Reason Admit Date/Time Jun 09, 2016 at 04:01 Initial Consult Date 06/09/16 Type of Consultation: GI Referring Provider: MAURY BENITEZ MD 24 HR Interval Summary Free Text/Dictation more awake and alert. No nausea and vomiting. Waiting for speech therapy for swallow evaluation Exam/Review of Systems Vital Signs Vitals Vital Signs Date Time Temp Pulse Resp B/P Pulse Ox O2 Delivery O2 Flow Rate FiO2 07/12/16 08:22 74 07/12/16 07:44 97.5 20 109/59 96 07/10/16 20:00 Room Air 07/08/16 08:00 2.0 Intake and Output 07/11/16 07/11/16 07/12/16 15:00 23:00 07:00 Intake Total 1300 ml 250 ml Output Total 1250 ml Balance 50 ml 250 ml Exam Constitutional: frail Psych: nl mood/affect, no complaints Head: atraumatic, normocephalic Eyes: EOMI, nl conjunctiva, nl lids ENMT: nl external ears & nose, nl lips & teeth, nl nasal mucosa & septum Neck: non-tender, supple Respiratory: clear to auscultation, normal air movement Cardiovascular: nl pulses, regular rate and rhythm Gastrointestinal: bowel sounds, non-tender, soft Results Result Diagram: 07/12/1662407/12/16 06 Results 24 hrs Laboratory Tests Test 07/12/16 06:25 White Blood Count 5.0 Red Blood Count 3.04 L Hemoglobin 8.5 L Hematocrit 28.0 L Mean Corpuscular Volume 92.1 Mean Corpuscular Hemoglobin 28.0 L Mean Corpuscular Hemoglobin Concent 30.4 L Red Cell Distribution Width 19.4 H Platelet Count 73 L Mean Platelet Volume 12.1 H Neutrophils % 65.1 Lymphocytes % 20.5 Monocytes % 11.0 Eosinophils % 2.6 Basophils % 0.2 Nucleated Red Blood Cells % 0.0 Neutrophils # 3.3 Lymphocytes # 1.0 Monocytes # 0.6 Eosinophils # 0.1 Basophils # 0.0 Nucleated Red Blood Cells # 0.0 Sodium Level 136 Potassium Level 4.0 Chloride Level 107 Carbon Dioxide Level 23 Anion Gap 10 Blood Urea Nitrogen 15 Creatinine 0.70 Glucose Level 119 Calcium Level 7.7 L Medications Medications Current Medications Ondansetron HCl (Zofran Inj) 4 mg Q6H PRN IV NAUSEA AND/OR VOMITING; Start 06/09 at 04:30 Dutasteride (Avodart) 0.5 mg AM PO Last administered on 07/11/16 10:03; Admin Dose 0.5 MG; Start 06/09/16 at 09:00 Finasteride (Proscar) 5 mg AM PO Last administered on 07/11/16 10:04; Admin Dose 5 MG; Start 06/09/16 at 09:00 Levothyroxine Sodium (Synthroid) 50 mcg DAILY@06 PO Last administered on 06:21; Admin Dose 50 MCG; Start 06/09/16 at 06:00 Rifaximin (Xifaxan) 550 mg BID PO Last administered on 07/11/16 20:57; Admin Dose 550 MG; Start 06/11/16 at 14:30 Eye Lubricant (Artificial Tears Oph) 2 drop QID BOTH EYES Last administered on 07/11/16 20:58; Admin Dose 2 DROP; Start 06/12/16 at 13:00 Hydralazine HCl (Apresoline) 10 mg Q2H PRN IV SBP>170; Start 06/12/16 at 17:00 Acetaminophen (Tylenol Liquid) 650 mg Q4H PRN NGT PAIN AND OR ELEVATED TEMP Last administered on 07/07/16 19:02; Admin Dose 650 MG; Start 06/17/16 at 12:30 Lactulose (Enulose) 30 gm QID PO Last administered on 07/11/16 20:57; Admin Dose 30 GM; Start 06/24/16 at 21:30 Febuxostat (Uloric) 40 mg DAILY PO Last administered on 07/11/16 10:04; Admin Dose 40 MG; Start 06/25/16 at 15:00 Colchicine (Colchicine) 0.6 mg TID PRN PO gout pain Last administered on 22:45; Admin Dose 0.6 MG; Start 06/25/16 at 21:00 Lorazepam (Ativan) 1 mg Q6H PRN IV ANXIETY Last administered on 07/10/16 15:31 ; Admin Dose 1 MG; Start 06/25/16 at 18:30 Metoprolol Tartrate (Lopressor) 5 mg Q4H PRN IV HR>110 Last administered on 15:37; Admin Dose 5 MG; Start 06/28/16 at 16:00 Amiodarone HCl 200 mg 200 mg BID NGT Last administered on 07/11/16 20:58; Admin Dose 200 MG; Start 06/28/16 at 21:00 Potassium Chloride/Dextrose (D5W + KCl 20 Meq) 1,000 ml @ 50 mls/hr Q20H IV Last administered on 07/10/16 10:14; Admin Dose 50 MLS/HR; Start 07/02/16 at 20: 00 IV Flush (NS 10 ml) 10 ml PRN PRN IV IV PROTOCOL; Start 07/02/16 at 19:30 Tamsulosin HCl (Flomax) 0.4 mg HS PO Last administered on 07/11/16 20:57; Admin Dose 0.4 MG; Start 07/03/16 at 21:00 Miscellaneous Information 1 ea NOTE XX ; Start 07/05/16 at 20:00 Glucose (Glutose) 15 gm Q15M PRN PO DECREASED GLUCOSE; Start 07/05/16 at 20:00 Glucose (Glutose) 22.5 gm Q15M PRN PO DECREASED GLUCOSE; Start 07/05/16 at 20: 00 Dextrose (D50w Syringe) 25 ml Q15M PRN IV DECREASED GLUCOSE; Start 07/05/16 at 20:00 Dextrose (D50w Syringe) 50 ml Q15M PRN IV DECREASED GLUCOSE; Start 07/05/16 at 20:00 Glucagon (Glucagen) 1 mg Q15M PRN IM DECREASED GLUCOSE; Start 07/05/16 at 20:00 Glucose (Glutose) 15 gm Q15M PRN BUCCAL DECREASED GLUCOSE; Start 07/05/16 at 20 :00 Morphine Sulfate (morphine) 4 mg Q4H PRN IV PAIN Last administered on 07/12/16 01:10; Admin Dose 4 MG; Start 07/05/16 at 22:00 Metoprolol Tartrate 25 mg 25 mg BID PO Last administered on 07/11/16 10:06; Admin Dose 25 MG; Start 07/06/16 at 09:00 Dopamine HCl/ Dextrose 250 ml @ 7.35 mls/hr TITRATE IV ; Start 07/06/16 at 22: 00; Status Future Hold Prednisone (Prednisone) 20 mg DAILY GTB Last administered on 07/11/16 10:04; Admin Dose 20 MG; Start 07/11/16 at 09:00 Pantoprazole 40 mg 40 mg BID@06,18 PO Last administered on 07/12/16 06:21; Admin Dose 40 MG; Start 07/10/16 at 18:00 Ferric Sodium Gluconate Complex/ Sodium Chloride (Ferrlecit/NS) 110 ml @ 100 mls/hr Q24H IVPB Last administered on 07/11/16 13:28; Admin Dose 100 MLS/HR; Start 07/11/16 at 11:00; Stop 07/13/16 at 12:05 Furosemide (Lasix) 20 mg DAILY GTB Last administered on 07/11/16 11:35; Admin Dose 20 MG; Start 07/11/16 at 11:00 ARMANI VALLADARES MD Jul 12, 2016 10:53
[2016-07-12] MEDS: LACTULOSE 30ML CUP PO SCH ×4 (11:12→20:54)
[2016-07-12] MEDS: ARTIFICIAL TEARS 15 ML OPH BOTH EYES SCH ×4 (11:12→20:54)
[2016-07-12] MEDS: FEBUXOSTAT 40 MG TABLET PO SCH (11:12)
[2016-07-12] MEDS: RIFAXIMIN 550 MG TAB PO SCH ×2 (11:13→20:54)
[2016-07-12] MEDS: predniSONE 20 MG TAB GTB SCH (11:13)
[2016-07-12] MEDS: METOPROLOL 25 MG TAB PO SCH ×2 (11:13→20:56)
[2016-07-12] MEDS: DUTASTERIDE 0.5 MG CAP PO SCH (11:14)
[2016-07-12] MEDS: AMIODARONE 200 MG TAB NGT SCH ×2 (11:14→20:57)
[2016-07-12] MEDS: FINASTERIDE 5 MG TAB PO SCH (11:14)
[2016-07-12] MEDS: FUROSEMIDE 20 MG TAB GTB SCH (11:14)
[2016-07-12] MEDS: SOD FERRIC GLUC COMPLX 125 MG in SOD CHLORIDE 0.9% 100 ML IVPB SCH (11:52)
--- NOTE | 2016-07-12 13:15 | CONS ---
Date/Time of Note Date/Time of Note DATE: 07/12/16 TIME: 13:10 Assessment/Plan Assessment/Plan Chief Complaint/Hosp Course IMPRESSION: 1. Paroxysmal atrial fibrillation/atrial flutter-now SR on PO amio 2. Abnormal electrocardiogram. 3. Hypotension, now improved.-tolerating low dose BB 4. Gastrointestinal bleed.-s/p EGD with esophageal ulcers/varices s/p banding with ongoing GIB at this time 5. Cirhoss s/p banding of varices 6. Encephalopathy-ongoing 7. Anemia-worsening 8. Hypernatremia 9. Coagulopathy 10.Fever 11.PNA 12.ARF-improved 14.Hypotension-improved off pressors/stable Recc: -Tele -Continue amiodarone PO as patient able to take -Continue BB as tolerated -No asa/systemic anti-coag secondary to anemia/GIB -Follow MS closely -Follow Hgb closely -F/U cx data and continue abx's -Continue protonix/lactulose Problems: Consultation Date/Type/Reason Admit Date/Time Jun 09, 2016 at 04:01 Initial Consult Date 06/09/16 Type of Consultation: Cardiology Reason for Consultation PAF/AFL Referring Provider: MAURY BENITEZ MD Exam/Review of Systems Vital Signs Vitals Vital Signs Date Time Temp Pulse Resp B/P Pulse Ox O2 Delivery O2 Flow Rate FiO2 07/12/16 12:08 74 07/12/16 12:05 98.0 18 109/59 98 07/10/16 20:00 Room Air 07/08/16 08:00 2.0 Intake and Output 07/11/16 07/11/16 07/12/16 15:00 23:00 07:00 Intake Total 1300 ml 250 ml Output Total 1250 ml Balance 50 ml 250 ml Exam Review of Systems: CONSTITUTIONAL: No fevers, chills. PULMONARY: No sob CARDIOVASCULAR: No chest pain/palpitations GASTROINTESTINAL: No nausea/vomiting. GENITOURINARY: No hematuria/dysuria. MUSCULOSKELETAL: No myagias/arthalgias. PSYCHIATRIC: The patient denies depression. NEUROLOGIC: lethargic Constitutional: other (sleeping) Psych: no complaints Head: normocephalic ENMT: mucosa pink and moist Neck: jvd (9 cmn water), supple Respiratory: diminished breath sounds (at bases/B) Cardiovascular: regular rate and rhythm Gastrointestinal: non-tender, soft Musculoskeletal: muscle tone (normal) Extremities: edema (none) Neurological: other (No focal deficits) Results Result Diagram: 07/12/1662407/12/1625 Results 24 hrs Laboratory Tests Test 07/12/16 06:25 White Blood Count 5.0 Red Blood Count 3.04 L Hemoglobin 8.5 L Hematocrit 28.0 L Mean Corpuscular Volume 92.1 Mean Corpuscular Hemoglobin 28.0 L Mean Corpuscular Hemoglobin Concent 30.4 L Red Cell Distribution Width 19.4 H Platelet Count 73 L Mean Platelet Volume 12.1 H Neutrophils % 65.1 Lymphocytes % 20.5 Monocytes % 11.0 Eosinophils % 2.6 Basophils % 0.2 Nucleated Red Blood Cells % 0.0 Neutrophils # 3.3 Lymphocytes # 1.0 Monocytes # 0.6 Eosinophils # 0.1 Basophils # 0.0 Nucleated Red Blood Cells # 0.0 Sodium Level 136 Potassium Level 4.0 Chloride Level 107 Carbon Dioxide Level 23 Anion Gap 10 Blood Urea Nitrogen 15 Creatinine 0.70 Glucose Level 119 Calcium Level 7.7 L Medications Medications Current Medications Ondansetron HCl (Zofran Inj) 4 mg Q6H PRN IV NAUSEA AND/OR VOMITING; Start 06/09 at 04:30 Dutasteride (Avodart) 0.5 mg AM PO Last administered on 07/12/16 11:14; Admin Dose 0.5 MG; Start 06/09/16 at 09:00 Finasteride (Proscar) 5 mg AM PO Last administered on 07/12/16 11:14; Admin Dose 5 MG; Start 06/09/16 at 09:00 Levothyroxine Sodium (Synthroid) 50 mcg DAILY@06 PO Last administered on 06:21; Admin Dose 50 MCG; Start 06/09/16 at 06:00 Rifaximin (Xifaxan) 550 mg BID PO Last administered on 07/12/16 11:13; Admin Dose 550 MG; Start 06/11/16 at 14:30 Eye Lubricant (Artificial Tears Oph) 2 drop QID BOTH EYES Last administered on 07/12/16 11:12; Admin Dose 2 DROP; Start 06/12/16 at 13:00 Hydralazine HCl (Apresoline) 10 mg Q2H PRN IV SBP>170; Start 06/12/16 at 17:00 Acetaminophen (Tylenol Liquid) 650 mg Q4H PRN NGT PAIN AND OR ELEVATED TEMP Last administered on 07/07/16 19:02; Admin Dose 650 MG; Start 06/17/16 at 12:30 Lactulose (Enulose) 30 gm QID PO Last administered on 07/12/16 11:12; Admin Dose 30 GM; Start 06/24/16 at 21:30 Febuxostat (Uloric) 40 mg DAILY PO Last administered on 07/12/16 11:12; Admin Dose 40 MG; Start 06/25/16 at 15:00 Colchicine (Colchicine) 0.6 mg TID PRN PO gout pain Last administered on 22:45; Admin Dose 0.6 MG; Start 06/25/16 at 21:00 Lorazepam (Ativan) 1 mg Q6H PRN IV ANXIETY Last administered on 07/10/16 15:31 ; Admin Dose 1 MG; Start 06/25/16 at 18:30 Metoprolol Tartrate (Lopressor) 5 mg Q4H PRN IV HR>110 Last administered on 15:37; Admin Dose 5 MG; Start 06/28/16 at 16:00 Amiodarone HCl 200 mg 200 mg BID NGT Last administered on 07/12/16 11:14; Admin Dose 200 MG; Start 06/28/16 at 21:00 Potassium Chloride/Dextrose (D5W + KCl 20 Meq) 1,000 ml @ 50 mls/hr Q20H IV Last administered on 07/10/16 10:14; Admin Dose 50 MLS/HR; Start 07/02/16 at 20: 00 IV Flush (NS 10 ml) 10 ml PRN PRN IV IV PROTOCOL; Start 07/02/16 at 19:30 Tamsulosin HCl (Flomax) 0.4 mg HS PO Last administered on 07/11/16 20:57; Admin Dose 0.4 MG; Start 07/03/16 at 21:00 Miscellaneous Information 1 ea NOTE XX ; Start 07/05/16 at 20:00 Glucose (Glutose) 15 gm Q15M PRN PO DECREASED GLUCOSE; Start 07/05/16 at 20:00 Glucose (Glutose) 22.5 gm Q15M PRN PO DECREASED GLUCOSE; Start 07/05/16 at 20: 00 Dextrose (D50w Syringe) 25 ml Q15M PRN IV DECREASED GLUCOSE; Start 07/05/16 at 20:00 Dextrose (D50w Syringe) 50 ml Q15M PRN IV DECREASED GLUCOSE; Start 07/05/16 at 20:00 Glucagon (Glucagen) 1 mg Q15M PRN IM DECREASED GLUCOSE; Start 07/05/16 at 20:00 Glucose (Glutose) 15 gm Q15M PRN BUCCAL DECREASED GLUCOSE; Start 07/05/16 at 20 :00 Morphine Sulfate (morphine) 4 mg Q4H PRN IV PAIN Last administered on 07/12/16 01:10; Admin Dose 4 MG; Start 07/05/16 at 22:00 Metoprolol Tartrate 25 mg 25 mg BID PO Last administered on 07/12/16 11:13; Admin Dose 25 MG; Start 07/06/16 at 09:00 Dopamine HCl/ Dextrose 250 ml @ 7.35 mls/hr TITRATE IV ; Start 07/06/16 at 22: 00; Status Future Hold Prednisone (Prednisone) 20 mg DAILY GTB Last administered on 07/12/16 11:13; Admin Dose 20 MG; Start 07/11/16 at 09:00 Pantoprazole 40 mg 40 mg BID@06,18 PO Last administered on 07/12/16 06:21; Admin Dose 40 MG; Start 07/10/16 at 18:00 Ferric Sodium Gluconate Complex/ Sodium Chloride (Ferrlecit/NS) 110 ml @ 100 mls/hr Q24H IVPB Last administered on 07/12/16 11:52; Admin Dose 100 MLS/HR; Start 07/11/16 at 11:00; Stop 07/13/16 at 12:05 Furosemide (Lasix) 20 mg DAILY GTB Last administered on 07/12/16 11:14; Admin Dose 20 MG; Start 07/11/16 at 11:00 ANGELES ODONNELL Jul 12, 2016 13:15
--- NOTE | 2016-07-12 13:28 | PN ---
Date/Time of Note Date/Time of Note DATE: 07/12/16 TIME: 13:26 Assessment/Plan VTE Prophylaxis VTE Prophylaxis Intervention: SCD's Lines/Catheters IV Catheter Type (from Nrsg): PICC Line Central line still needed: Yes Urinary Cath still in place: Yes Reason Cath still needed: other (indicate) Assessment/Plan Chief Complaint/Hosp Course Assessment/Plan 1. Esophageal variceal bleeding/post EVL, follow up with GI, continue PPI, continue octreotide, repeat endoscopy demonstrated multiple esophageal ulcer 3. Paroxysmal atrial fibrillation/atrial flutter, now back in sinus rhythm and remains thus - now in sinus - better rate controlled now. 4. REC NSVT - add BB as toleated - BEA stable now - no new episodes now - no ectopy noted today. 5. Resolving sepsis, on multiple antibiotics, follow up with ID 6. Encephalopathy-likely secondary to history of cirrhosis and alcohol abuse, improving, continue lactulose 7. Anemia, , status post transfusions- H/H stable. Continue to monitor, transfuse as per protocol 8. Hypernatremia. follow up with electrolytes, start free water via G-tube 9. Coagulopathy, likely secondary to his history of cirrhosis and alcohol abuse 10. 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 consult for acute rehabilitation placement Problems: Subjective 24 Hr Interval Summary Free Text/Dictation Patient is more awake and alert Waiting for speech therapy for swallow evaluation Denies of any chest pain or shortness of breath Exam/Review of Systems Vital Signs Vitals Vital Signs Date Time Temp Pulse Resp B/P Pulse Ox O2 Delivery O2 Flow Rate FiO2 07/12/16 12:08 74 07/12/16 12:05 98.0 18 109/59 98 07/10/16 20:00 Room Air 07/08/16 08:00 2.0 Intake and Output 07/11/16 07/11/16 07/12/16 15:00 23:00 07:00 Intake Total 1300 ml 250 ml Output Total 1250 ml Balance 50 ml 250 ml Exam General: The patient is moderately overweight, Not in acute distress. HEENT: Atraumatic, normocephalic. The pupils are equal and round . Neck: Supple with full range of motion. Chest: Normal expansion of the thorax during inspiration Lungs: Clear to auscultation bilaterally Heart: Normal S1-S2, Regular rhythm and rate. Abdomen: Abdominal contour is obese soft , nontender, nondistended , bowel sounds are present. PEG tube in place Extremities: Normal to inspection, no edema no cyanosis Neurologic: Normal mental status,The patient is awake, alert Results Result Diagram: 07/12/16 0625 07/12/16 0625 Results 24 hrs Laboratory Tests Test 07/12/16 06:25 White Blood Count 5.0 Red Blood Count 3.04 L Hemoglobin 8.5 L Hematocrit 28.0 L Mean Corpuscular Volume 92.1 Mean Corpuscular Hemoglobin 28.0 L Mean Corpuscular Hemoglobin Concent 30.4 L Red Cell Distribution Width 19.4 H Platelet Count 73 L Mean Platelet Volume 12.1 H Neutrophils % 65.1 Lymphocytes % 20.5 Monocytes % 11.0 Eosinophils % 2.6 Basophils % 0.2 Nucleated Red Blood Cells % 0.0 Neutrophils # 3.3 Lymphocytes # 1.0 Monocytes # 0.6 Eosinophils # 0.1 Basophils # 0.0 Nucleated Red Blood Cells # 0.0 Sodium Level 136 Potassium Level 4.0 Chloride Level 107 Carbon Dioxide Level 23 Anion Gap 10 Blood Urea Nitrogen 15 Creatinine 0.70 Glucose Level 119 Calcium Level 7.7 L Medications Medications Current Medications Ondansetron HCl (Zofran Inj) 4 mg Q6H PRN IV NAUSEA AND/OR VOMITING; Start 06/09 at 04:30 Dutasteride (Avodart) 0.5 mg AM PO Last administered on 07/12/16 11:14; Admin Dose 0.5 MG; Start 06/09/16 at 09:00 Finasteride (Proscar) 5 mg AM PO Last administered on 07/12/16 11:14; Admin Dose 5 MG; Start 06/09/16 at 09:00 Levothyroxine Sodium (Synthroid) 50 mcg DAILY@06 PO Last administered on 06:21; Admin Dose 50 MCG; Start 06/09/16 at 06:00 Rifaximin (Xifaxan) 550 mg BID PO Last administered on 07/12/16 11:13; Admin Dose 550 MG; Start 06/11/16 at 14:30 Eye Lubricant (Artificial Tears Oph) 2 drop QID BOTH EYES Last administered on 07/12/16 11:12; Admin Dose 2 DROP; Start 06/12/16 at 13:00 Hydralazine HCl (Apresoline) 10 mg Q2H PRN IV SBP>170; Start 06/12/16 at 17:00 Acetaminophen (Tylenol Liquid) 650 mg Q4H PRN NGT PAIN AND OR ELEVATED TEMP Last administered on 07/07/16 19:02; Admin Dose 650 MG; Start 06/17/16 at 12:30 Lactulose (Enulose) 30 gm QID PO Last administered on 07/12/16 11:12; Admin Dose 30 GM; Start 06/24/16 at 21:30 Febuxostat (Uloric) 40 mg DAILY PO Last administered on 07/12/16 11:12; Admin Dose 40 MG; Start 06/25/16 at 15:00 Colchicine (Colchicine) 0.6 mg TID PRN PO gout pain Last administered on 22:45; Admin Dose 0.6 MG; Start 06/25/16 at 21:00 Lorazepam (Ativan) 1 mg Q6H PRN IV ANXIETY Last administered on 07/10/16 15:31 ; Admin Dose 1 MG; Start 06/25/16 at 18:30 Metoprolol Tartrate (Lopressor) 5 mg Q4H PRN IV HR>110 Last administered on 15:37; Admin Dose 5 MG; Start 06/28/16 at 16:00 Amiodarone HCl 200 mg 200 mg BID NGT Last administered on 07/12/16 11:14; Admin Dose 200 MG; Start 06/28/16 at 21:00 Potassium Chloride/Dextrose (D5W + KCl 20 Meq) 1,000 ml @ 50 mls/hr Q20H IV Last administered on 07/10/16 10:14; Admin Dose 50 MLS/HR; Start 07/02/16 at 20: 00 IV Flush (NS 10 ml) 10 ml PRN PRN IV IV PROTOCOL; Start 07/02/16 at 19:30 Tamsulosin HCl (Flomax) 0.4 mg HS PO Last administered on 07/11/16 20:57; Admin Dose 0.4 MG; Start 07/03/16 at 21:00 Miscellaneous Information 1 ea NOTE XX ; Start 07/05/16 at 20:00 Glucose (Glutose) 15 gm Q15M PRN PO DECREASED GLUCOSE; Start 07/05/16 at 20:00 Glucose (Glutose) 22.5 gm Q15M PRN PO DECREASED GLUCOSE; Start 07/05/16 at 20: 00 Dextrose (D50w Syringe) 25 ml Q15M PRN IV DECREASED GLUCOSE; Start 07/05/16 at 20:00 Dextrose (D50w Syringe) 50 ml Q15M PRN IV DECREASED GLUCOSE; Start 07/05/16 at 20:00 Glucagon (Glucagen) 1 mg Q15M PRN IM DECREASED GLUCOSE; Start 07/05/16 at 20:00 Glucose (Glutose) 15 gm Q15M PRN BUCCAL DECREASED GLUCOSE; Start 07/05/16 at 20 :00 Morphine Sulfate (morphine) 4 mg Q4H PRN IV PAIN Last administered on 07/12/16 01:10; Admin Dose 4 MG; Start 07/05/16 at 22:00 Metoprolol Tartrate 25 mg 25 mg BID PO Last administered on 07/12/16 11:13; Admin Dose 25 MG; Start 07/06/16 at 09:00 Dopamine HCl/ Dextrose 250 ml @ 7.35 mls/hr TITRATE IV ; Start 07/06/16 at 22: 00; Status Future Hold Prednisone (Prednisone) 20 mg DAILY GTB Last administered on 07/12/16 11:13; Admin Dose 20 MG; Start 07/11/16 at 09:00 Pantoprazole 40 mg 40 mg BID@06,18 PO Last administered on 07/12/16 06:21; Admin Dose 40 MG; Start 07/10/16 at 18:00 Ferric Sodium Gluconate Complex/ Sodium Chloride (Ferrlecit/NS) 110 ml @ 100 mls/hr Q24H IVPB Last administered on 07/12/16 11:52; Admin Dose 100 MLS/HR; Start 07/11/16 at 11:00; Stop 07/13/16 at 12:05 Furosemide (Lasix) 20 mg DAILY GTB Last administered on 07/12/16 11:14; Admin Dose 20 MG; Start 07/11/16 at 11:00 NHI AHMADI MD Jul 12, 2016 13:28
--- NOTE | 2016-07-12 14:40 | CONS ---
Date/Time of Note Date/Time of Note DATE: 07/12/16 TIME: 14:39 Assessment/Plan Assessment/Plan Chief Complaint/Hosp Course SUBJECTIVE: No acute changes, lying comfortably in bed. No fevers. INDWELLINGS: [place], PEG, PICC line, rectal tube. PHYSICAL EXAMINATION: GENERAL: This is a chronically ill-appearing, well-developed elderly man who is in no distress. HEENT: Head atraumatic, normocephalic. Sclerae anicteric. Buccal mucosa dry. NECK: Supple, trachea midline. CHEST: Rise symmetrical. Breath sounds diminished to bases. HEART: S1, S2. ABDOMEN: Distended, soft. Bowel tones hypoactive. EXTREMITIES: Bilateral edema. ASSESSMENT: 1. Status post shock. 2. S/p Dorina albicans urinary tract infection. 3. Alcoholic liver cirrhosis. 4. Hepatic encephalopathy. 5. Anemia with thrombocytopenia. 6. Status post gastrointestinal bleeding. 7. Paroxysmal atrial fibrillation. 8. History of familial Mediterranean fever. PLAN: Remains stable. Continue anti-aspiration measures. Pending dc plan==> requesting acute rehab DW DW Dr Angel Problems: Consultation Date/Type/Reason Admit Date/Time Jun 09, 2016 at 04:01 Initial Consult Date 06/09/16 Type of Consultation: id Referring Provider: MAURY BENITEZ MD Exam/Review of Systems Vital Signs Vitals Vital Signs Date Time Temp Pulse Resp B/P Pulse Ox O2 Delivery O2 Flow Rate FiO2 07/12/16 12:08 74 07/12/16 12:05 98.0 18 109/59 98 07/10/16 20:00 Room Air 07/08/16 08:00 2.0 Intake and Output 07/11/16 07/11/16 07/12/16 15:00 23:00 07:00 Intake Total 1300 ml 250 ml Output Total 1250 ml Balance 50 ml 250 ml Results Result Diagram: 07/12/16 0625 07/12/16 0625 Results 24 hrs Laboratory Tests Test 07/12/16 06:25 White Blood Count 5.0 Red Blood Count 3.04 L Hemoglobin 8.5 L Hematocrit 28.0 L Mean Corpuscular Volume 92.1 Mean Corpuscular Hemoglobin 28.0 L Mean Corpuscular Hemoglobin Concent 30.4 L Red Cell Distribution Width 19.4 H Platelet Count 73 L Mean Platelet Volume 12.1 H Neutrophils % 65.1 Lymphocytes % 20.5 Monocytes % 11.0 Eosinophils % 2.6 Basophils % 0.2 Nucleated Red Blood Cells % 0.0 Neutrophils # 3.3 Lymphocytes # 1.0 Monocytes # 0.6 Eosinophils # 0.1 Basophils # 0.0 Nucleated Red Blood Cells # 0.0 Sodium Level 136 Potassium Level 4.0 Chloride Level 107 Carbon Dioxide Level 23 Anion Gap 10 Blood Urea Nitrogen 15 Creatinine 0.70 Glucose Level 119 Calcium Level 7.7 L Medications Medications Current Medications Ondansetron HCl (Zofran Inj) 4 mg Q6H PRN IV NAUSEA AND/OR VOMITING; Start 06/09 at 04:30 Dutasteride (Avodart) 0.5 mg AM PO Last administered on 07/12/16 11:14; Admin Dose 0.5 MG; Start 06/09/16 at 09:00 Finasteride (Proscar) 5 mg AM PO Last administered on 07/12/16 11:14; Admin Dose 5 MG; Start 06/09/16 at 09:00 Levothyroxine Sodium (Synthroid) 50 mcg DAILY@06 PO Last administered on 06:21; Admin Dose 50 MCG; Start 06/09/16 at 06:00 Rifaximin (Xifaxan) 550 mg BID PO Last administered on 07/12/16 11:13; Admin Dose 550 MG; Start 06/11/16 at 14:30 Eye Lubricant (Artificial Tears Oph) 2 drop QID BOTH EYES Last administered on 07/12/16 11:12; Admin Dose 2 DROP; Start 06/12/16 at 13:00 Hydralazine HCl (Apresoline) 10 mg Q2H PRN IV SBP>170; Start 06/12/16 at 17:00 Acetaminophen (Tylenol Liquid) 650 mg Q4H PRN NGT PAIN AND OR ELEVATED TEMP Last administered on 07/07/16 19:02; Admin Dose 650 MG; Start 06/17/16 at 12:30 Lactulose (Enulose) 30 gm QID PO Last administered on 07/12/16 11:12; Admin Dose 30 GM; Start 06/24/16 at 21:30 Febuxostat (Uloric) 40 mg DAILY PO Last administered on 07/12/16 11:12; Admin Dose 40 MG; Start 06/25/16 at 15:00 Colchicine (Colchicine) 0.6 mg TID PRN PO gout pain Last administered on 22:45; Admin Dose 0.6 MG; Start 06/25/16 at 21:00 Lorazepam (Ativan) 1 mg Q6H PRN IV ANXIETY Last administered on 07/10/16 15:31 ; Admin Dose 1 MG; Start 06/25/16 at 18:30 Metoprolol Tartrate (Lopressor) 5 mg Q4H PRN IV HR>110 Last administered on 15:37; Admin Dose 5 MG; Start 06/28/16 at 16:00 Amiodarone HCl 200 mg 200 mg BID NGT Last administered on 07/12/16 11:14; Admin Dose 200 MG; Start 06/28/16 at 21:00 Potassium Chloride/Dextrose (D5W + KCl 20 Meq) 1,000 ml @ 50 mls/hr Q20H IV Last administered on 07/10/16 10:14; Admin Dose 50 MLS/HR; Start 07/02/16 at 20: 00 IV Flush (NS 10 ml) 10 ml PRN PRN IV IV PROTOCOL; Start 07/02/16 at 19:30 Tamsulosin HCl (Flomax) 0.4 mg HS PO Last administered on 07/11/16 20:57; Admin Dose 0.4 MG; Start 07/03/16 at 21:00 Miscellaneous Information 1 ea NOTE XX ; Start 07/05/16 at 20:00 Glucose (Glutose) 15 gm Q15M PRN PO DECREASED GLUCOSE; Start 07/05/16 at 20:00 Glucose (Glutose) 22.5 gm Q15M PRN PO DECREASED GLUCOSE; Start 07/05/16 at 20: 00 Dextrose (D50w Syringe) 25 ml Q15M PRN IV DECREASED GLUCOSE; Start 07/05/16 at 20:00 Dextrose (D50w Syringe) 50 ml Q15M PRN IV DECREASED GLUCOSE; Start 07/05/16 at 20:00 Glucagon (Glucagen) 1 mg Q15M PRN IM DECREASED GLUCOSE; Start 07/05/16 at 20:00 Glucose (Glutose) 15 gm Q15M PRN BUCCAL DECREASED GLUCOSE; Start 07/05/16 at 20 :00 Morphine Sulfate (morphine) 4 mg Q4H PRN IV PAIN Last administered on 07/12/16 01:10; Admin Dose 4 MG; Start 07/05/16 at 22:00 Metoprolol Tartrate 25 mg 25 mg BID PO Last administered on 07/12/16 11:13; Admin Dose 25 MG; Start 07/06/16 at 09:00 Dopamine HCl/ Dextrose 250 ml @ 7.35 mls/hr TITRATE IV ; Start 07/06/16 at 22: 00; Status Future Hold Prednisone (Prednisone) 20 mg DAILY GTB Last administered on 07/12/16 11:13; Admin Dose 20 MG; Start 07/11/16 at 09:00 Pantoprazole 40 mg 40 mg BID@06,18 PO Last administered on 07/12/16 06:21; Admin Dose 40 MG; Start 07/10/16 at 18:00 Ferric Sodium Gluconate Complex/ Sodium Chloride (Ferrlecit/NS) 110 ml @ 100 mls/hr Q24H IVPB Last administered on 07/12/16 11:52; Admin Dose 100 MLS/HR; Start 07/11/16 at 11:00; Stop 07/13/16 at 12:05 Furosemide (Lasix) 20 mg DAILY GTB Last administered on 07/12/16 11:14; Admin Dose 20 MG; Start 07/11/16 at 11:00 STACIE TAMEZ NP Jul 12, 2016 14:40
[2016-07-12] MEDS: D5W + KCL 20 MEQ 1,000 ML IV SCH ×2 (14:55)
[2016-07-12] MEDS: TAMSULOSIN (SR) 0.4 MG CAP PO SCH (20:54)
--- NOTE | 2016-07-12 22:24 | CONS ---
Date/Time of Note Date/Time of Note DATE: 07/12/16 TIME: 22:24 Assessment/Plan Assessment/Plan Chief Complaint/Hosp Course Anemia - COMPLEX, MULTIFACTORIAL WITH COMPONENT ACD, ACUTE BLOOD LOSS AND SEVERE IRON DEFICIENCY IN THE PAST * Esophageal variceal bleeding/post EVL * CONT TO MONITOR BLOOD COUNT CLOSELY * OBSERVE FOR BLEEDING AND HEMOLYSIS * PRBC NEEDED Alcoholic cirrhosis * Post variceal bleeding/post EVL * Portal encephalopathy * Ascites * Unsafe swallowing/failed swallow eval/high risk for aspiration * POST EGD plus PEG. * POST paracenteses prior to procedure. * transfer to tertiary center for transplant,process started Coagulopathy VIT K POST FFP PRIOR TO PROCEDURE Problems: Consultation Date/Type/Reason Admit Date/Time Jun 09, 2016 at 04:01 Initial Consult Date 06/09/16 Type of Consultation: hemeon Referring Provider: MAURY BENITEZ MD 24 HR Interval Summary Free Text/Dictation more awake and alert. No nausea and vomiting. Waiting for speech therapy for swallow evaluation Exam/Review of Systems Vital Signs Vitals Vital Signs Date Time Temp Pulse Resp B/P Pulse Ox O2 Delivery O2 Flow Rate FiO2 07/12/16 20:18 75 18 95 21 07/12/16 20:00 98.8 100/58 07/10/16 20:00 Room Air 07/08/16 08:00 2.0 Intake and Output 07/11/16 07/11/16 07/12/16 15:00 23:00 07:00 Intake Total 1300 ml 250 ml Output Total 1250 ml Balance 50 ml 250 ml Exam GENERAL: No acute distress, slightly uncomfortable, but responsive and appropriate. HEENT: Pupils equal, reactive. No scleral icterus. Mucous membranes somewhat dry. NECK: Supple, no JVD. PULMONARY: Normal respiratory effort. No wheezing. HEART: S1, S2 present. ABDOMEN: Soft, distended, nontender, no rebound, no guarding. Right lower quadrant with a hernia that is slightly tender. Not rigid. PEG in place. EXTREMITIES: With minimal edema. VASCULAR: Cap refill is 2 seconds. NEUROLOGIC: Alert, oriented, moves all 4 extremities grossly; however weak. LYMPHATICS: No palpable inguinal, cervical lymph nodes. Results Result Diagram: 07/12/16 0625 07/12/16 0625 Results 24 hrs Laboratory Tests Test 07/12/16 06:25 White Blood Count 5.0 Red Blood Count 3.04 L Hemoglobin 8.5 L Hematocrit 28.0 L Mean Corpuscular Volume 92.1 Mean Corpuscular Hemoglobin 28.0 L Mean Corpuscular Hemoglobin Concent 30.4 L Red Cell Distribution Width 19.4 H Platelet Count 73 L Mean Platelet Volume 12.1 H Neutrophils % 65.1 Lymphocytes % 20.5 Monocytes % 11.0 Eosinophils % 2.6 Basophils % 0.2 Nucleated Red Blood Cells % 0.0 Neutrophils # 3.3 Lymphocytes # 1.0 Monocytes # 0.6 Eosinophils # 0.1 Basophils # 0.0 Nucleated Red Blood Cells # 0.0 Sodium Level 136 Potassium Level 4.0 Chloride Level 107 Carbon Dioxide Level 23 Anion Gap 10 Blood Urea Nitrogen 15 Creatinine 0.70 Glucose Level 119 Calcium Level 7.7 L Medications Medications Current Medications Ondansetron HCl (Zofran Inj) 4 mg Q6H PRN IV NAUSEA AND/OR VOMITING; Start 06/09 at 04:30 Dutasteride (Avodart) 0.5 mg AM PO Last administered on 07/12/16 11:14; Admin Dose 0.5 MG; Start 06/09/16 at 09:00 Finasteride (Proscar) 5 mg AM PO Last administered on 07/12/16 11:14; Admin Dose 5 MG; Start 06/09/16 at 09:00 Levothyroxine Sodium (Synthroid) 50 mcg DAILY@06 PO Last administered on 06:21; Admin Dose 50 MCG; Start 06/09/16 at 06:00 Rifaximin (Xifaxan) 550 mg BID PO Last administered on 07/12/16 20:54; Admin Dose 550 MG; Start 06/11/16 at 14:30 Eye Lubricant (Artificial Tears Oph) 2 drop QID BOTH EYES Last administered on 07/12/16 20:54; Admin Dose 2 DROP; Start 06/12/16 at 13:00 Hydralazine HCl (Apresoline) 10 mg Q2H PRN IV SBP>170; Start 06/12/16 at 17:00 Acetaminophen (Tylenol Liquid) 650 mg Q4H PRN NGT PAIN AND OR ELEVATED TEMP Last administered on 07/07/16 19:02; Admin Dose 650 MG; Start 06/17/16 at 12:30 Lactulose (Enulose) 30 gm QID PO Last administered on 07/12/16 20:54; Admin Dose 30 GM; Start 06/24/16 at 21:30 Febuxostat (Uloric) 40 mg DAILY PO Last administered on 07/12/16 11:12; Admin Dose 40 MG; Start 06/25/16 at 15:00 Colchicine (Colchicine) 0.6 mg TID PRN PO gout pain Last administered on 22:45; Admin Dose 0.6 MG; Start 06/25/16 at 21:00 Lorazepam (Ativan) 1 mg Q6H PRN IV ANXIETY Last administered on 07/10/16 15:31 ; Admin Dose 1 MG; Start 06/25/16 at 18:30 Metoprolol Tartrate (Lopressor) 5 mg Q4H PRN IV HR>110 Last administered on 15:37; Admin Dose 5 MG; Start 06/28/16 at 16:00 Amiodarone HCl 200 mg 200 mg BID NGT Last administered on 07/12/16 20:57; Admin Dose 200 MG; Start 06/28/16 at 21:00 Potassium Chloride/Dextrose (D5W + KCl 20 Meq) 1,000 ml @ 50 mls/hr Q20H IV Last administered on 07/12/16 14:55; Admin Dose 50 MLS/HR; Start 07/02/16 at 20: 00 IV Flush (NS 10 ml) 10 ml PRN PRN IV IV PROTOCOL; Start 07/02/16 at 19:30 Tamsulosin HCl (Flomax) 0.4 mg HS PO Last administered on 07/12/16 20:54; Admin Dose 0.4 MG; Start 07/03/16 at 21:00 Miscellaneous Information 1 ea NOTE XX ; Start 07/05/16 at 20:00 Glucose (Glutose) 15 gm Q15M PRN PO DECREASED GLUCOSE; Start 07/05/16 at 20:00 Glucose (Glutose) 22.5 gm Q15M PRN PO DECREASED GLUCOSE; Start 07/05/16 at 20: 00 Dextrose (D50w Syringe) 25 ml Q15M PRN IV DECREASED GLUCOSE; Start 07/05/16 at 20:00 Dextrose (D50w Syringe) 50 ml Q15M PRN IV DECREASED GLUCOSE; Start 07/05/16 at 20:00 Glucagon (Glucagen) 1 mg Q15M PRN IM DECREASED GLUCOSE; Start 07/05/16 at 20:00 Glucose (Glutose) 15 gm Q15M PRN BUCCAL DECREASED GLUCOSE; Start 07/05/16 at 20 :00 Morphine Sulfate (morphine) 4 mg Q4H PRN IV PAIN Last administered on 07/12/16 20:50; Admin Dose 4 MG; Start 07/05/16 at 22:00 Metoprolol Tartrate 25 mg 25 mg BID PO Last administered on 07/12/16 11:13; Admin Dose 25 MG; Start 07/06/16 at 09:00 Dopamine HCl/ Dextrose 250 ml @ 7.35 mls/hr TITRATE IV ; Start 07/06/16 at 22: 00; Status Future Hold Prednisone (Prednisone) 20 mg DAILY GTB Last administered on 07/12/16 11:13; Admin Dose 20 MG; Start 07/11/16 at 09:00 Pantoprazole 40 mg 40 mg BID@06,18 PO Last administered on 07/12/16 18:36; Admin Dose 40 MG; Start 07/10/16 at 18:00 Ferric Sodium Gluconate Complex/ Sodium Chloride (Ferrlecit/NS) 110 ml @ 100 mls/hr Q24H IVPB Last administered on 07/12/16 11:52; Admin Dose 100 MLS/HR; Start 07/11/16 at 11:00; Stop 07/13/16 at 12:05 Furosemide (Lasix) 20 mg DAILY GTB Last administered on 07/12/16 11:14; Admin Dose 20 MG; Start 07/11/16 at 11:00 FAYE RUSHING MD Jul 12, 2016 22:24
[2016-07-13] VITALS (10 sets, daily range): BP systolic 98–121; BP diastolic 57–67; PULSE 66–70; RESP 18–20
[2016-07-13] MEDS: morphine 4 MG/ML VIAL IV PRN ×3 (01:59→21:57)
[2016-07-13] MEDS: LEVOTHYROXINE 50 MCG TAB PO SCH (05:13)
[2016-07-13] MEDS: ACETAMINOPHEN 650MG/20.3ML CUP NGT PRN (05:13)
[2016-07-13] MEDS: COLCHICINE 0.6 MG TAB PO PRN (05:13)
[2016-07-13] MEDS: PANTOPRAZOLE (EC) 40 MG TAB PO SCH ×2 (05:13→17:32)
[2016-07-13 07:52] LABS: ADD SCAN DIFF NO
[2016-07-13 08:20] LABS: ALBUMIN 2.4 g/dl (3.3-4.9)
[2016-07-13 08:21] LABS: POTASSIUM 3.9 mmol/L (3.5-5.1)
[2016-07-13 08:21] LABS: ABNORMAL IP MESSAGE 1; BASOPHILS % 0.4 % (0.0-2.0); EOSINOPHILS # 0.2 10^3/ul (0.0-0.5); EOSINOPHILS % 3.4 % (0.0-7.0); LYMPHOCYTES # 0.9 10^3/ul (0.8-2.9); LYMPHOCYTES % 19.3 % (15.0-51.0); MEAN CORPUSCULAR HEMOGLOBIN 28.5 pg (29.0-33.0); MEAN CORPUSCULAR HGB CONC 30.8 g/dl (32.0-37.0); MEAN CORPUSCULAR VOLUME 92.5 fl (82.0-101.0); MEAN PLATELET VOLUME 10.9 fl (7.4-10.4); MONOCYTE # 0.5 10^3/ul (0.3-0.9); MONOCYTES % 10.5 % (0.0-11.0); NEUTROPHIL # 3.1 10^3/ul (1.6-7.5); NEUTROPHILS % 65.8 % (39.0-77.0); PLATELET COUNT 74 10^3/UL (140-415); RED BLOOD COUNT 2.81 10^6/ul (4.70-6.10); WHITE BLOOD COUNT 4.7 10^3/ul (4.8-10.8)
[2016-07-13 08:23] LABS: ALBUMIN/GLOBULIN RATIO 0.75; BILIRUBIN,INDIRECT 0.8 mg/dl (0-1.1); BILIRUBIN,TOTAL 0.8 mg/dl (0.2-1.3); CREATININE 0.72 mg/dl (0.61-1.24); TOTAL PROTEIN 5.6 g/dl (6.1-8.1)
[2016-07-13 08:24] LABS: CALCIUM 7.5 mg/dl (8.4-10.2); MAGNESIUM 1.7 mg/dl (1.7-2.5)
[2016-07-13] MEDS: METOPROLOL 25 MG TAB PO SCH ×2 (09:00→21:00)
[2016-07-13] MEDS: LACTULOSE 30ML CUP PO SCH ×4 (09:00→21:00)
[2016-07-13] MEDS: ARTIFICIAL TEARS 15 ML OPH BOTH EYES SCH ×4 (10:18→22:38)
[2016-07-13] MEDS: AMIODARONE 200 MG TAB NGT SCH ×2 (10:20→21:00)
[2016-07-13] MEDS: RIFAXIMIN 550 MG TAB PO SCH (10:20)
[2016-07-13] MEDS: DUTASTERIDE 0.5 MG CAP PO SCH (10:20)
[2016-07-13] MEDS: FEBUXOSTAT 40 MG TABLET PO SCH (10:20)
[2016-07-13] MEDS: FINASTERIDE 5 MG TAB PO SCH (10:20)
[2016-07-13] MEDS: FUROSEMIDE 20 MG TAB GTB SCH (10:21)
[2016-07-13] MEDS: predniSONE 20 MG TAB GTB SCH (10:22)
--- NOTE | 2016-07-13 10:32 | CONS ---
Date/Time of Note Date/Time of Note DATE: 07/13/16 TIME: 10:32 Assessment/Plan Assessment/Plan Chief Complaint/Hosp Course Anemia - COMPLEX, MULTIFACTORIAL WITH COMPONENT ACD, ACUTE BLOOD LOSS AND SEVERE IRON DEFICIENCY IN THE PAST * Esophageal variceal bleeding/post EVL * CONT TO MONITOR BLOOD COUNT CLOSELY * OBSERVE FOR BLEEDING AND HEMOLYSIS * PRBC NEEDED Alcoholic cirrhosis * Post variceal bleeding/post EVL * Portal encephalopathy * Ascites * Unsafe swallowing/failed swallow eval/high risk for aspiration * POST EGD plus PEG. * POST paracenteses prior to procedure. * transfer to tertiary center for transplant,process started Coagulopathy VIT K POST FFP PRIOR TO PROCEDURE abd pain CT A/P Problems: Consultation Date/Type/Reason Admit Date/Time Jun 09, 2016 at 04:01 Initial Consult Date 06/09/16 Type of Consultation: hemeon Referring Provider: MAURY BENITEZ MD 24 HR Interval Summary Free Text/Dictation Patient very uncomfortable and moaning, c/o squeezing abd pain Exam/Review of Systems Vital Signs Vitals Vital Signs Date Time Temp Pulse Resp B/P Pulse Ox O2 Delivery O2 Flow Rate FiO2 07/13/16 08:10 70 07/13/16 07:37 97.9 20 98/57 94 07/13/16 02:55 21 07/10/16 20:00 Room Air Intake and Output 07/12/16 07/12/16 07/13/16 15:00 23:00 07:00 Intake Total 600 ml 1000 ml 1000 ml Output Total 1200 ml 1800 ml 1600 ml Balance -600 ml -800 ml -600 ml Exam GENERAL: No acute distress, slightly uncomfortable, but responsive and appropriate. HEENT: Pupils equal, reactive. No scleral icterus. Mucous membranes somewhat dry. NECK: Supple, no JVD. PULMONARY: Normal respiratory effort. No wheezing. HEART: S1, S2 present. ABDOMEN: Soft, distended, nontender, no rebound, no guarding. Right lower quadrant with a hernia that is slightly tender. Not rigid. PEG in place. EXTREMITIES: With minimal edema. VASCULAR: Cap refill is 2 seconds. NEUROLOGIC: Alert, oriented, moves all 4 extremities grossly; however weak. LYMPHATICS: No palpable inguinal, cervical lymph nodes. Results Result Diagram: 07/13/16 0737 07/13/16 0753 Results 24 hrs Laboratory Tests Test 07/13/16 07:22 07/13/16 07:37 Sodium Level 133 L Potassium Level 3.9 Chloride Level 106 Carbon Dioxide Level 23 Anion Gap 8 Blood Urea Nitrogen 15 Creatinine 0.72 Glucose Level 105 Calcium Level 7.5 L Magnesium Level 1.7 Total Bilirubin 0.8 Direct Bilirubin 0.00 Indirect Bilirubin 0.8 Aspartate Amino Transf (AST/SGOT) 39 Alanine Aminotransferase (ALT/SGPT) 37 Alkaline Phosphatase 191 H Total Protein 5.6 L Albumin 2.4 L Globulin 3.20 Albumin/Globulin Ratio 0.75 White Blood Count 4.7 L Red Blood Count 2.81 L Hemoglobin 8.0 L Hematocrit 26.0 L Mean Corpuscular Volume 92.5 Mean Corpuscular Hemoglobin 28.5 L Mean Corpuscular Hemoglobin Concent 30.8 L Red Cell Distribution Width 19.0 H Platelet Count 74 L Mean Platelet Volume 10.9 H Neutrophils % 65.8 Lymphocytes % 19.3 Monocytes % 10.5 Eosinophils % 3.4 Basophils % 0.4 Nucleated Red Blood Cells % 0.0 Neutrophils # 3.1 Lymphocytes # 0.9 Monocytes # 0.5 Eosinophils # 0.2 Basophils # 0.0 Nucleated Red Blood Cells # 0.0 Medications Medications Current Medications Ondansetron HCl (Zofran Inj) 4 mg Q6H PRN IV NAUSEA AND/OR VOMITING; Start 06/09 at 04:30 Dutasteride (Avodart) 0.5 mg AM PO Last administered on 07/13/16 10:20; Admin Dose 0.5 MG; Start 06/09/16 at 09:00 Finasteride (Proscar) 5 mg AM PO Last administered on 07/13/16 10:20; Admin Dose 5 MG; Start 06/09/16 at 09:00 Levothyroxine Sodium (Synthroid) 50 mcg DAILY@06 PO Last administered on 05:13; Admin Dose 50 MCG; Start 06/09/16 at 06:00 Rifaximin (Xifaxan) 550 mg BID PO Last administered on 07/13/16 10:20; Admin Dose 550 MG; Start 06/11/16 at 14:30 Eye Lubricant (Artificial Tears Oph) 2 drop QID BOTH EYES Last administered on 07/13/16 10:18; Admin Dose 2 DROP; Start 06/12/16 at 13:00 Hydralazine HCl (Apresoline) 10 mg Q2H PRN IV SBP>170; Start 06/12/16 at 17:00 Acetaminophen (Tylenol Liquid) 650 mg Q4H PRN NGT PAIN AND OR ELEVATED TEMP Last administered on 07/13/16 05:13; Admin Dose 650 MG; Start 06/17/16 at 12:30 Lactulose (Enulose) 30 gm QID PO Last administered on 07/12/16 20:54; Admin Dose 30 GM; Start 06/24/16 at 21:30 Febuxostat (Uloric) 40 mg DAILY PO Last administered on 07/13/16 10:20; Admin Dose 40 MG; Start 06/25/16 at 15:00 Colchicine (Colchicine) 0.6 mg TID PRN PO gout pain Last administered on 05:13; Admin Dose 0.6 MG; Start 06/25/16 at 21:00 Lorazepam (Ativan) 1 mg Q6H PRN IV ANXIETY Last administered on 07/10/16 15:31 ; Admin Dose 1 MG; Start 06/25/16 at 18:30 Metoprolol Tartrate (Lopressor) 5 mg Q4H PRN IV HR>110 Last administered on 15:37; Admin Dose 5 MG; Start 06/28/16 at 16:00 Amiodarone HCl 200 mg 200 mg BID NGT Last administered on 07/13/16 10:20; Admin Dose 200 MG; Start 06/28/16 at 21:00 Potassium Chloride/Dextrose (D5W + KCl 20 Meq) 1,000 ml @ 50 mls/hr Q20H IV Last administered on 07/12/16 14:55; Admin Dose 50 MLS/HR; Start 07/02/16 at 20: 00 IV Flush (NS 10 ml) 10 ml PRN PRN IV IV PROTOCOL; Start 07/02/16 at 19:30 Tamsulosin HCl (Flomax) 0.4 mg HS PO Last administered on 07/12/16 20:54; Admin Dose 0.4 MG; Start 07/03/16 at 21:00 Miscellaneous Information 1 ea NOTE XX ; Start 07/05/16 at 20:00 Glucose (Glutose) 15 gm Q15M PRN PO DECREASED GLUCOSE; Start 07/05/16 at 20:00 Glucose (Glutose) 22.5 gm Q15M PRN PO DECREASED GLUCOSE; Start 07/05/16 at 20: 00 Dextrose (D50w Syringe) 25 ml Q15M PRN IV DECREASED GLUCOSE; Start 07/05/16 at 20:00 Dextrose (D50w Syringe) 50 ml Q15M PRN IV DECREASED GLUCOSE; Start 07/05/16 at 20:00 Glucagon (Glucagen) 1 mg Q15M PRN IM DECREASED GLUCOSE; Start 07/05/16 at 20:00 Glucose (Glutose) 15 gm Q15M PRN BUCCAL DECREASED GLUCOSE; Start 07/05/16 at 20 :00 Morphine Sulfate (morphine) 4 mg Q4H PRN IV PAIN Last administered on 07/13/16 01:59; Admin Dose 4 MG; Start 07/05/16 at 22:00 Metoprolol Tartrate 25 mg 25 mg BID PO Last administered on 07/12/16 11:13; Admin Dose 25 MG; Start 07/06/16 at 09:00 Dopamine HCl/ Dextrose 250 ml @ 7.35 mls/hr TITRATE IV ; Start 07/06/16 at 22: 00; Status Future Hold Prednisone (Prednisone) 20 mg DAILY GTB Last administered on 07/13/16 10:22; Admin Dose 20 MG; Start 07/11/16 at 09:00 Pantoprazole 40 mg 40 mg BID@06,18 PO Last administered on 07/13/16 05:13; Admin Dose 40 MG; Start 07/10/16 at 18:00 Ferric Sodium Gluconate Complex/ Sodium Chloride (Ferrlecit/NS) 110 ml @ 100 mls/hr Q24H IVPB Last administered on 07/12/16 11:52; Admin Dose 100 MLS/HR; Start 07/11/16 at 11:00; Stop 07/13/16 at 12:05 Furosemide (Lasix) 20 mg DAILY GTB Last administered on 07/13/16 10:21; Admin Dose 20 MG; Start 07/11/16 at 11:00 FAYE RUSHING MD Jul 13, 2016 10:32
[2016-07-13] MEDS: SOD FERRIC GLUC COMPLX 125 MG in SOD CHLORIDE 0.9% 100 ML IVPB SCH (11:00)
--- NOTE | 2016-07-13 13:55 | PN ---
Date/Time of Note Date/Time of Note DATE: 07/13/16 TIME: 13:49 Assessment/Plan VTE Prophylaxis VTE Prophylaxis Intervention: SCD's Lines/Catheters IV [facility] PICC Line Central line still needed: Yes Urinary Cath still in place: Yes Reason Cath still needed: urinary retention Assessment/Plan Assessment/Plan Assessment/Plan * Esophageal variceal bleeding/post EVL/ rebleeding * 06/09/2016 EGD + EVL Actively bleeding esophageal varix post-endoscopic variceal ligation with cessation of bleeding. Large amounts of blood and clots in the stomach but no active bleeding or potential bleeding lesions present. The pylorus appears patent and duodenum with no lesions. * 06/28/16 EGD + PEG PEG placement Esophageal ulcers with some old clots in the area, but no active bleeding. Nasogastric tube trauma present. * 07/02/2016 EGD Multiple esophageal ulcers. Post-endoscopic variceal ligation with no active bleeding but positive stigmata of recent bleeding. . Gastrostomy tube in place and in good condition. . No other bleeding site or potential bleeding site identified. * Anemia secondary to above/ Hgb stable * Alcoholic cirrhosis * Post variceal bleeding/post EVL * Portal encephalopathy/ improving * Ascites/Neg U/S * Coagulopathy * Unsafe swallowing/failed swallow eval/high risk for aspiration/Post EGD+PEG * VRE * Shock likely due to sepsis/improved Plan continue g tube feeding continue present management monitor H and H Q6 transfuse per protocol monitor for signs and symptoms of bleeding follow up transfer to tertiary center Subjective 24 Hr Interval Summary Free Text/Dictation * course reviewed with nurse * patient seen and examined * patient more alert today ,no active bleeding * per case management still awaiting transfer to [facility] but are working on transfer to [facility] * tolerating g tube feeding * awaiting swallow evaluation today Exam/Review of Systems Vital Signs Vitals Vital Signs Date Time Temp Pulse Resp B/P Pulse Ox O2 Delivery O2 Flow Rate FiO2 07/13/16 12:35 69 07/13/16 12:00 97.7 20 110/63 98 07/13/16 02:55 21 07/10/16 20:00 Room Air Intake and Output 07/12/16 07/12/16 07/13/16 15:00 23:00 07:00 Intake Total 600 ml 1000 ml 1000 ml Output Total 1200 ml 1800 ml 1600 ml Balance -600 ml -800 ml -600 ml Exam Constitutional: frail Psych: nl mood/affect, no complaints Head: atraumatic, normocephalic Eyes: EOMI, nl conjunctiva, nl lids ENMT: nl external ears & nose, nl lips & teeth, nl nasal mucosa & septum Neck: non-tender, supple Respiratory: clear to auscultation, normal air movement Cardiovascular: nl pulses, regular rate and rhythm Gastrointestinal: bowel sounds, non-tender, soft Results Result Diagram: 07/13/16 0737 07/13/16 0722 Results 24 hrs Laboratory Tests Test 07/13/16 07:22 07/13/16 07:37 Sodium Level 133 L Potassium Level 3.9 Chloride Level 106 Carbon Dioxide Level 23 Anion Gap 8 Blood Urea Nitrogen 15 Creatinine 0.72 Glucose Level 105 Calcium Level 7.5 L Magnesium Level 1.7 Total Bilirubin 0.8 Direct Bilirubin 0.00 Indirect Bilirubin 0.8 Aspartate Amino Transf (AST/SGOT) 39 Alanine Aminotransferase (ALT/SGPT) 37 Alkaline Phosphatase 191 H Total Protein 5.6 L Albumin 2.4 L Globulin 3.20 Albumin/Globulin Ratio 0.75 White Blood Count 4.7 L Red Blood Count 2.81 L Hemoglobin 8.0 L Hematocrit 26.0 L Mean Corpuscular Volume 92.5 Mean Corpuscular Hemoglobin 28.5 L Mean Corpuscular Hemoglobin Concent 30.8 L Red Cell Distribution Width 19.0 H Platelet Count 74 L Mean Platelet Volume 10.9 H Neutrophils % 65.8 Lymphocytes % 19.3 Monocytes % 10.5 Eosinophils % 3.4 Basophils % 0.4 Nucleated Red Blood Cells % 0.0 Neutrophils # 3.1 Lymphocytes # 0.9 Monocytes # 0.5 Eosinophils # 0.2 Basophils # 0.0 Nucleated Red Blood Cells # 0.0 Medications Medications Current Medications Ondansetron HCl (Zofran Inj) 4 mg Q6H PRN IV NAUSEA AND/OR VOMITING; Start 06/09 at 04:30 Dutasteride (Avodart) 0.5 mg AM PO Last administered on 07/13/16 10:20; Admin Dose 0.5 MG; Start 06/09/16 at 09:00 Finasteride (Proscar) 5 mg AM PO Last administered on 07/13/16 10:20; Admin Dose 5 MG; Start 06/09/16 at 09:00 Levothyroxine Sodium (Synthroid) 50 mcg DAILY@06 PO Last administered on 05:13; Admin Dose 50 MCG; Start 06/09/16 at 06:00 Rifaximin (Xifaxan) 550 mg BID PO Last administered on 07/13/16 10:20; Admin Dose 550 MG; Start 06/11/16 at 14:30 Eye Lubricant (Artificial Tears Oph) 2 drop QID BOTH EYES Last administered on 07/13/16 10:18; Admin Dose 2 DROP; Start 06/12/16 at 13:00 Hydralazine HCl (Apresoline) 10 mg Q2H PRN IV SBP>170; Start 06/12/16 at 17:00 Acetaminophen (Tylenol Liquid) 650 mg Q4H PRN NGT PAIN AND OR ELEVATED TEMP Last administered on 07/13/16 05:13; Admin Dose 650 MG; Start 06/17/16 at 12:30 Lactulose (Enulose) 30 gm QID PO Last administered on 07/12/16 20:54; Admin Dose 30 GM; Start 06/24/16 at 21:30 Febuxostat (Uloric) 40 mg DAILY PO Last administered on 07/13/16 10:20; Admin Dose 40 MG; Start 06/25/16 at 15:00 Colchicine (Colchicine) 0.6 mg TID PRN PO gout pain Last administered on 05:13; Admin Dose 0.6 MG; Start 06/25/16 at 21:00 Lorazepam (Ativan) 1 mg Q6H PRN IV ANXIETY Last administered on 07/10/16 15:31 ; Admin Dose 1 MG; Start 06/25/16 at 18:30 Metoprolol Tartrate (Lopressor) 5 mg Q4H PRN IV HR>110 Last administered on 15:37; Admin Dose 5 MG; Start 06/28/16 at 16:00 Amiodarone HCl 200 mg 200 mg BID NGT Last administered on 07/13/16 10:20; Admin Dose 200 MG; Start 06/28/16 at 21:00 Potassium Chloride/Dextrose (D5W + KCl 20 Meq) 1,000 ml @ 50 mls/hr Q20H IV Last administered on 07/12/16 14:55; Admin Dose 50 MLS/HR; Start 07/02/16 at 20: 00 IV Flush (NS 10 ml) 10 ml PRN PRN IV IV PROTOCOL; Start 07/02/16 at 19:30 Tamsulosin HCl (Flomax) 0.4 mg HS PO Last administered on 07/12/16 20:54; Admin Dose 0.4 MG; Start 07/03/16 at 21:00 Miscellaneous Information 1 ea NOTE XX ; Start 07/05/16 at 20:00 Glucose (Glutose) 15 gm Q15M PRN PO DECREASED GLUCOSE; Start 07/05/16 at 20:00 Glucose (Glutose) 22.5 gm Q15M PRN PO DECREASED GLUCOSE; Start 07/05/16 at 20: 00 Dextrose (D50w Syringe) 25 ml Q15M PRN IV DECREASED GLUCOSE; Start 07/05/16 at 20:00 Dextrose (D50w Syringe) 50 ml Q15M PRN IV DECREASED GLUCOSE; Start 07/05/16 at 20:00 Glucagon (Glucagen) 1 mg Q15M PRN IM DECREASED GLUCOSE; Start 07/05/16 at 20:00 Glucose (Glutose) 15 gm Q15M PRN BUCCAL DECREASED GLUCOSE; Start 07/05/16 at 20 :00 Morphine Sulfate (morphine) 4 mg Q4H PRN IV PAIN Last administered on 07/13/16 01:59; Admin Dose 4 MG; Start 07/05/16 at 22:00 Metoprolol Tartrate 25 mg 25 mg BID PO Last administered on 07/12/16 11:13; Admin Dose 25 MG; Start 07/06/16 at 09:00 Dopamine HCl/ Dextrose 250 ml @ 7.35 mls/hr TITRATE IV ; Start 07/06/16 at 22: 00; Status Future Hold Prednisone (Prednisone) 20 mg DAILY GTB Last administered on 07/13/16 10:22; Admin Dose 20 MG; Start 07/11/16 at 09:00 Pantoprazole (Protonix Tab) 40 mg BID@06,18 PO Last administered on 07/13/16 05 :13; Admin Dose 40 MG; Start 07/10/16 at 18:00 Furosemide (Lasix) 20 mg DAILY GTB Last administered on 4/4/17at 10:21; Admin Dose 20 MG; Start 07/11/16 at 11:00 JAC DAVIS MD Jul 13, 2016 13:55
--- NOTE | 2016-07-13 14:20 | PN ---
Date/Time of Note Date/Time of Note DATE: 07/13/16 TIME: 13:59 Assessment/Plan VTE Prophylaxis VTE Prophylaxis Intervention: SCD's VTE Contraindication Reason: thrombocytopenia Lines/Catheters IV Catheter Type (from Nrsg): PICC Line Central line still needed: Yes Urinary Cath still in place: Yes Reason Cath still needed: other (indicate) Assessment/Plan Assessment/Plan 71 yo M with 1. Severe abd pain likely associated with severe abd distention 2. Chronic end stage alcoholic liver cirrhosis with coagulopathy / thrombocytopenia / Varices 3. Esophageal variceal bleeding/post EVL 4. Multiple esophageal ulcers 5. Paroxysmal atrial fibrillation/atrial flutter, now back in sinus rhythm / rate controlled 6. S/p recurrent NSVT - no new episodes now 7. S/p sepsis + Septic shock 2/2 Dorina UTI 8. 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 Chronic Anemia associated with chronic liver disease s/p multiple transfusions 10. Mild Hyponatremia: likely 2/2 fluid loss from diarrheal stools 11. Severe debility with dysphagia from prolonged hospitalization : PEG, G- tube feeding 12. Hypothyroidism PLAN: * Will get CT abd and pelvis to eval severe abd pain and distention * Continue pain control / hold PEG feeds for now till after CT is reviewed * Patient remains rate controlled without any further tele incidents / monitor electrolytes * Hold lactulose and rifaximin for diarrhea and monitor ammonia levels * Monitor hgb levels and transfuse PRN * Continue speech therapy and resume oral diet when cleared as safe * Patient is not a candidate for anticoagulation 2/2 ulcers and coagulopaty from liver disease * application support intern prognosis is grim without liver transplant. High risk of readmission. Evaluation time >35mins/ Spoke with son in detail. PROPHYLAXIS: SCDs / PPI Subjective 24 Hr Interval Summary Free Text/Dictation * Patient very uncomfortable and moaning, c/o squeezing abd pain Exam/Review of Systems Vital Signs Vitals Vital Signs Date Time Temp Pulse Resp B/P Pulse Ox O2 Delivery O2 Flow Rate FiO2 07/13/16 12:35 69 07/13/16 12:00 97.7 20 110/63 98 07/13/16 02:55 21 07/10/16 20:00 Room Air Intake and Output 07/12/16 07/12/16 07/13/16 15:00 23:00 07:00 Intake Total 600 ml 1000 ml 1000 ml Output Total 1200 ml 1800 ml 1600 ml Balance -600 ml -800 ml -600 ml Exam Constitutional: alert, distress Psych: anxiety Head: normocephalic Eyes: icteric Respiratory: diminished breath sounds Gastrointestinal: ascites (?), distended, firm Extremities: edema Neurological: lethargic, No confused Results Result Diagram: 07/13/16 0737 07/13/16 0722 Results 24 hrs Laboratory Tests Test 07/13/16 07:22 07/13/16 07:37 Sodium Level 133 L Potassium Level 3.9 Chloride Level 106 Carbon Dioxide Level 23 Anion Gap 8 Blood Urea Nitrogen 15 Creatinine 0.72 Glucose Level 105 Calcium Level 7.5 L Magnesium Level 1.7 Total Bilirubin 0.8 Direct Bilirubin 0.00 Indirect Bilirubin 0.8 Aspartate Amino Transf (AST/SGOT) 39 Alanine Aminotransferase (ALT/SGPT) 37 Alkaline Phosphatase 191 H Total Protein 5.6 L Albumin 2.4 L Globulin 3.20 Albumin/Globulin Ratio 0.75 White Blood Count 4.7 L Red Blood Count 2.81 L Hemoglobin 8.0 L Hematocrit 26.0 L Mean Corpuscular Volume 92.5 Mean Corpuscular Hemoglobin 28.5 L Mean Corpuscular Hemoglobin Concent 30.8 L Red Cell Distribution Width 19.0 H Platelet Count 74 L Mean Platelet Volume 10.9 H Neutrophils % 65.8 Lymphocytes % 19.3 Monocytes % 10.5 Eosinophils % 3.4 Basophils % 0.4 Nucleated Red Blood Cells % 0.0 Neutrophils # 3.1 Lymphocytes # 0.9 Monocytes # 0.5 Eosinophils # 0.2 Basophils # 0.0 Nucleated Red Blood Cells # 0.0 Medications Medications Current Medications Ondansetron HCl (Zofran Inj) 4 mg Q6H PRN IV NAUSEA AND/OR VOMITING; Start 06/09 at 04:30 Dutasteride (Avodart) 0.5 mg AM PO Last administered on 07/13/16 10:20; Admin Dose 0.5 MG; Start 06/09/16 at 09:00 Finasteride (Proscar) 5 mg AM PO Last administered on 07/13/16 10:20; Admin Dose 5 MG; Start 06/09/16 at 09:00 Levothyroxine Sodium (Synthroid) 50 mcg DAILY@06 PO Last administered on 05:13; Admin Dose 50 MCG; Start 06/09/16 at 06:00 Rifaximin (Xifaxan) 550 mg BID PO Last administered on 07/13/16 10:20; Admin Dose 550 MG; Start 06/11/16 at 14:30 Eye Lubricant (Artificial Tears Oph) 2 drop QID BOTH EYES Last administered on 07/13/16 10:18; Admin Dose 2 DROP; Start 06/12/16 at 13:00 Hydralazine HCl (Apresoline) 10 mg Q2H PRN IV SBP>170; Start 06/12/16 at 17:00 Acetaminophen (Tylenol Liquid) 650 mg Q4H PRN NGT PAIN AND OR ELEVATED TEMP Last administered on 07/13/16 05:13; Admin Dose 650 MG; Start 06/17/16 at 12:30 Lactulose (Enulose) 30 gm QID PO Last administered on 07/12/16 20:54; Admin Dose 30 GM; Start 06/24/16 at 21:30 Febuxostat (Uloric) 40 mg DAILY PO Last administered on 07/13/16 10:20; Admin Dose 40 MG; Start 06/25/16 at 15:00 Colchicine (Colchicine) 0.6 mg TID PRN PO gout pain Last administered on 05:13; Admin Dose 0.6 MG; Start 06/25/16 at 21:00 Lorazepam (Ativan) 1 mg Q6H PRN IV ANXIETY Last administered on 07/10/16 15:31 ; Admin Dose 1 MG; Start 06/25/16 at 18:30 Metoprolol Tartrate (Lopressor) 5 mg Q4H PRN IV HR>110 Last administered on 15:37; Admin Dose 5 MG; Start 06/28/16 at 16:00 Amiodarone HCl 200 mg 200 mg BID NGT Last administered on 07/13/16 10:20; Admin Dose 200 MG; Start 06/28/16 at 21:00 Potassium Chloride/Dextrose (D5W + KCl 20 Meq) 1,000 ml @ 50 mls/hr Q20H IV Last administered on 07/12/16 14:55; Admin Dose 50 MLS/HR; Start 07/02/16 at 20: 00 IV Flush (NS 10 ml) 10 ml PRN PRN IV IV PROTOCOL; Start 07/02/16 at 19:30 Tamsulosin HCl (Flomax) 0.4 mg HS PO Last administered on 07/12/16 20:54; Admin Dose 0.4 MG; Start 07/03/16 at 21:00 Miscellaneous Information 1 ea NOTE XX ; Start 07/05/16 at 20:00 Glucose (Glutose) 15 gm Q15M PRN PO DECREASED GLUCOSE; Start 07/05/16 at 20:00 Glucose (Glutose) 22.5 gm Q15M PRN PO DECREASED GLUCOSE; Start 07/05/16 at 20: 00 Dextrose (D50w Syringe) 25 ml Q15M PRN IV DECREASED GLUCOSE; Start 07/05/16 at 20:00 Dextrose (D50w Syringe) 50 ml Q15M PRN IV DECREASED GLUCOSE; Start 07/05/16 at 20:00 Glucagon (Glucagen) 1 mg Q15M PRN IM DECREASED GLUCOSE; Start 07/05/16 at 20:00 Glucose (Glutose) 15 gm Q15M PRN BUCCAL DECREASED GLUCOSE; Start 07/05/16 at 20 :00 Morphine Sulfate (morphine) 4 mg Q4H PRN IV PAIN Last administered on 07/13/16 01:59; Admin Dose 4 MG; Start 07/05/16 at 22:00 Metoprolol Tartrate 25 mg 25 mg BID PO Last administered on 07/12/16 11:13; Admin Dose 25 MG; Start 07/06/16 at 09:00 Dopamine HCl/ Dextrose 250 ml @ 7.35 mls/hr TITRATE IV ; Start 07/06/16 at 22: 00; Status Future Hold Prednisone (Prednisone) 20 mg DAILY GTB Last administered on 07/13/16 10:22; Admin Dose 20 MG; Start 07/11/16 at 09:00 Pantoprazole (Protonix Tab) 40 mg BID@06,18 PO Last administered on 07/13/16 05 :13; Admin Dose 40 MG; Start 07/10/16 at 18:00 Furosemide (Lasix) 20 mg DAILY GTB Last administered on 07/13/16 10:21; Admin Dose 20 MG; Start 07/11/16 at 11:00 JENNIFER MORENO Jul 13, 2016 14:15
--- NOTE | 2016-07-13 16:21 | CONS ---
Date/Time of Note Date/Time of Note DATE: 07/13/16 TIME: 16:20 Assessment/Plan Assessment/Plan Additional Assessment/Plan 1. Paroxysmal atrial fibrillation/atrial flutter-now SR on PO amio- in sinus on tele now 2. Abnormal electrocardiogram - non-spec st-t changes 3. Hypotension, now improved.-tolerating low dose BB - HR under 80 now 4. Gastrointestinal bleed.-s/p EGD with esophageal ulcers/varices s/p banding with ongoing GIB at this time - GI follows 5. Cirhoss s/p banding of varices - chronic 6. Encephalopathy-ongoing 7. Anemia-worsening - Rx as needed 8. Hypernatremia 9. Coagulopathy 10.Fever 11.PNA 12.ARF-improved 14.Hypotension-improved off pressors/stable Consultation Date/Type/Reason Admit Date/Time Jun 09, 2016 at 04:01 Initial Consult Date 06/09/16 Type of Consultation: [facility] Referring Provider: MAURY BENITEZ MD 24 HR Interval Summary Free Text/Dictation NO acute change - in sinus now - HR well maintained ROS: No fever, no chills, no nausea, no vomiting, no diarrhea/constipation No recent weight changes No chest pain, no PND, no orthopnea No dizziness, blurred vision No thirst, no heat or cold intolerance Exam/Review of Systems Vital Signs Vitals Vital Signs Date Time Temp Pulse Resp B/P Pulse Ox O2 Delivery O2 Flow Rate FiO2 07/13/16 16:13 70 07/13/16 12:00 97.7 20 110/63 98 07/13/16 02:55 21 07/10/16 20:00 Room Air Intake and Output 07/12/16 07/12/16 07/13/16 15:00 23:00 07:00 Intake Total 600 ml 1000 ml 1000 ml Output Total 1200 ml 1800 ml 1600 ml Balance -600 ml -800 ml -600 ml Exam General: WN/WD/NAD, AOx more alert HEENT: Unicetric/atraumatic/EOMI (follow commands) NECK: JVD elevated, no thyromegaly Lymph: no lymphadenopathy HEART: regular with no S3, II/ systolic murmur at apex LUNGS: Coarse sounds ABD: soft, NT, ND, +BS : Intact Neuro: non focal SKIN: chronic changes EXT: trace edema Results Result Diagram: 07/13/16 0737 07/13/16 0722 Results 24 hrs Laboratory Tests Test 07/13/16 07:22 07/13/16 07:37 Sodium Level 133 L Potassium Level 3.9 Chloride Level 106 Carbon Dioxide Level 23 Anion Gap 8 Blood Urea Nitrogen 15 Creatinine 0.72 Glucose Level 105 Calcium Level 7.5 L Magnesium Level 1.7 Total Bilirubin 0.8 Direct Bilirubin 0.00 Indirect Bilirubin 0.8 Aspartate Amino Transf (AST/SGOT) 39 Alanine Aminotransferase (ALT/SGPT) 37 Alkaline Phosphatase 191 H Total Protein 5.6 L Albumin 2.4 L Globulin 3.20 Albumin/Globulin Ratio 0.75 White Blood Count 4.7 L Red Blood Count 2.81 L Hemoglobin 8.0 L Hematocrit 26.0 L Mean Corpuscular Volume 92.5 Mean Corpuscular Hemoglobin 28.5 L Mean Corpuscular Hemoglobin Concent 30.8 L Red Cell Distribution Width 19.0 H Platelet Count 74 L Mean Platelet Volume 10.9 H Neutrophils % 65.8 Lymphocytes % 19.3 Monocytes % 10.5 Eosinophils % 3.4 Basophils % 0.4 Nucleated Red Blood Cells % 0.0 Neutrophils # 3.1 Lymphocytes # 0.9 Monocytes # 0.5 Eosinophils # 0.2 Basophils # 0.0 Nucleated Red Blood Cells # 0.0 Medications Medications Current Medications Ondansetron HCl (Zofran Inj) 4 mg Q6H PRN IV NAUSEA AND/OR VOMITING; Start 06/09 at 04:30 Dutasteride (Avodart) 0.5 mg AM PO Last administered on 07/13/16 10:20; Admin Dose 0.5 MG; Start 06/09/16 at 09:00 Finasteride (Proscar) 5 mg AM PO Last administered on 07/13/16 10:20; Admin Dose 5 MG; Start 06/09/16 at 09:00 Levothyroxine Sodium (Synthroid) 50 mcg DAILY@06 PO Last administered on 05:13; Admin Dose 50 MCG; Start 06/09/16 at 06:00 Rifaximin (Xifaxan) 550 mg BID PO Last administered on 07/13/16 10:20; Admin Dose 550 MG; Start 06/11/16 at 14:30; Status Future Hold Eye Lubricant (Artificial Tears Oph) 2 drop QID BOTH EYES Last administered on 07/13/16 10:18; Admin Dose 2 DROP; Start 06/12/16 at 13:00 Hydralazine HCl (Apresoline) 10 mg Q2H PRN IV SBP>170; Start 06/12/16 at 17:00 Acetaminophen (Tylenol Liquid) 650 mg Q4H PRN NGT PAIN AND OR ELEVATED TEMP Last administered on 07/13/16 05:13; Admin Dose 650 MG; Start 06/17/16 at 12:30 Lactulose (Enulose) 30 gm QID PO Last administered on 07/12/16 20:54; Admin Dose 30 GM; Start 06/24/16 at 21:30 Febuxostat (Uloric) 40 mg DAILY PO Last administered on 07/13/16 10:20; Admin Dose 40 MG; Start 06/25/16 at 15:00 Colchicine (Colchicine) 0.6 mg TID PRN PO gout pain Last administered on 05:13; Admin Dose 0.6 MG; Start 06/25/16 at 21:00 Lorazepam (Ativan) 1 mg Q6H PRN IV ANXIETY Last administered on 07/10/16 15:31 ; Admin Dose 1 MG; Start 06/25/16 at 18:30 Metoprolol Tartrate (Lopressor) 5 mg Q4H PRN IV HR>110 Last administered on 15:37; Admin Dose 5 MG; Start 06/28/16 at 16:00 Amiodarone HCl 200 mg 200 mg BID NGT Last administered on 07/13/16 10:20; Admin Dose 200 MG; Start 06/28/16 at 21:00 Potassium Chloride/Dextrose (D5W + KCl 20 Meq) 1,000 ml @ 50 mls/hr Q20H IV Last administered on 07/12/16 14:55; Admin Dose 50 MLS/HR; Start 07/02/16 at 20: 00 IV Flush (NS 10 ml) 10 ml PRN PRN IV IV PROTOCOL; Start 07/02/16 at 19:30 Tamsulosin HCl (Flomax) 0.4 mg HS PO Last administered on 07/12/16 20:54; Admin Dose 0.4 MG; Start 07/03/16 at 21:00 Miscellaneous Information 1 ea NOTE XX ; Start 07/05/16 at 20:00 Glucose (Glutose) 15 gm Q15M PRN PO DECREASED GLUCOSE; Start 07/05/16 at 20:00 Glucose (Glutose) 22.5 gm Q15M PRN PO DECREASED GLUCOSE; Start 07/05/16 at 20: 00 Dextrose (D50w Syringe) 25 ml Q15M PRN IV DECREASED GLUCOSE; Start 07/05/16 at 20:00 Dextrose (D50w Syringe) 50 ml Q15M PRN IV DECREASED GLUCOSE; Start 07/05/16 at 20:00 Glucagon (Glucagen) 1 mg Q15M PRN IM DECREASED GLUCOSE; Start 07/05/16 at 20:00 Glucose (Glutose) 15 gm Q15M PRN BUCCAL DECREASED GLUCOSE; Start 07/05/16 at 20 :00 Morphine Sulfate (morphine) 4 mg Q4H PRN IV PAIN Last administered on 07/13/16 01:59; Admin Dose 4 MG; Start 07/05/16 at 22:00 Metoprolol Tartrate 25 mg 25 mg BID PO Last administered on 07/12/16 11:13; Admin Dose 25 MG; Start 07/06/16 at 09:00 Dopamine HCl/ Dextrose 250 ml @ 7.35 mls/hr TITRATE IV ; Start 07/06/16 at 22: 00; Status Future Hold Prednisone (Prednisone) 20 mg DAILY GTB Last administered on 07/13/16 10:22; Admin Dose 20 MG; Start 07/11/16 at 09:00 Pantoprazole (Protonix Tab) 40 mg BID@06,18 PO Last administered on 07/13/16 05 :13; Admin Dose 40 MG; Start 07/10/16 at 18:00 Furosemide (Lasix) 20 mg DAILY GTB Last administered on 07/13/16 10:21; Admin Dose 20 MG; Start 07/11/16 at 11:00 BLADIMIR DEAN MD Jul 13, 2016 16:21
--- NOTE | 2016-07-13 17:13 | RADRPT ---
PROCEDURE: CT Abdomen and Pelvis without contrast. CLINICAL INDICATION: Abdominal and pelvic pain. Abdominal distension. TECHNIQUE: CT scan of the abdomen and pelvis without contrast was performed. Coronal and sagittal reformatted images were obtained from the axial source images. Images were reviewed on a [employer] PACS workstation. Total exam DLP is 1556.82 mGy-cm. CTDIvol is 21.59 mGy. One or more of the following dose reduction techniques were used: Automated exposure control, adjustment of the mA and/ or kV according to patient size, use of iterative reconstruction technique. COMPARISON: None. FINDINGS: There is mild atelectasis at the lung bases posteriorly with left worse than right. The lung bases are otherwise normal. There is a normal heart size and there is no pericardial effusion. There is no right pleural effusion. There is a small left pleural effusion. A central line is present with the tip in the cavoatrial junction region. The liver is enlarged with enlargement of the left lobe and a nodular surface consistent with cirrho sis. There is no focal hepatic lesion. The gallbladder and bile ducts are normal. The spleen is enlarged. There is no focal splenic lesion. Multiple dilated veins are present in the upper abdomen consistent with portal hypertension. Both adrenals are normal with no enlargement or mass. The pancreas is unremarkable with no mass or evidence of pancreatitis. There is no renal mass or hydronephrosis. There is no renal calculus or ureteral calculus. The abdominal aorta is not dilated. There is calcification in the aorta consistent with atheroscler osis. There is no retroperitoneal lymphadenopathy or mass. There is no pelvic lymphadenopathy or mass. There is a Crandall catheter in the bladder. The bladder contains urine with a volume of approximately 400 ml. The periappendiceal region is unremarkable with no evidence of appendicitis. There is a gastrostomy tube in satisfactory position in the stomach. A rectal tube is present with the balloon inflated in the mid to lower sigmoid colon. There is probably gas in the bowel wall in the ascending colon with gas in small mesenteric veins medial to the ascending colon. There is a ri ght inguinal hernia containing mesenteric fat and a small amount of ascites. The bowel and mesenter y are otherwise normal. There is moderate ascites. There is a small amount of free air anteriorly in the abdomen. There are degenerative changes of the spine. There is no fracture or lytic lesion. IMPRESSION: 1. Mild atelectasis at the lung bases posteriorly with left worse than right. 2. Small left pleural effusion. 3. Central line tip in the cavoatrial junction region. The R-4 hepatomegaly and nodular liver cons istent with cirrhosis. 5. Splenomegaly. 6. Portal hypertension with multiple dilated veins in the upper abdomen. 7. Atherosclerosis. 8. Crandall catheter in the bladder. Urine in the bladder with S a volume of approximately 400 ml 9. Gastrostomy tube in satisfactory position. 10. Rectal tube with the balloon inflated in the mid to lower sigmoid colon. 11. Probable gas in the wall of the ascending colon and gas in the small adjacent mesenteric vein m edial to the ascending colon. Findings consistent with bowel ischemia. 12. Right inguinal hernia containing mesenteric fat and a small amount of ascites. 13. Moderate ascites in the abdomen and pelvis. 14. Small amount of free air anteriorly in the abdomen consistent with perforation of hollow viscus . 15. Degenerative changes of the spine. Call report: A call report of the findings was made to Dr. Rincon on 07/13/2016 at 1710 hours. RPTAT: QQ .Emmanuel Murillo MD, MD Date Time Electronically viewed and signed by .Emmanuel Murillo MD, on 07/13/2016 17:13 .R/
[2016-07-13] MEDS ORDERED: IOHEXOL 14.3 MG(I)/ML (ADULT) BTL PO ONE (20:00)
[2016-07-13] MEDS: TAMSULOSIN (SR) 0.4 MG CAP PO SCH (21:00)
[2016-07-13] MEDS ORDERED: IOHEXOL 300MG/ML 30 ML BTL ONE (21:16)
--- NOTE | 2016-07-13 21:41 | CONS ---
DATE OF ADMISSION: 06/09/2016 DATE OF CONSULTATION: 07/13/2016 TYPE OF CONSULTATION: Surgical. REFERRING PHYSICIAN: Srinivasan Sears MD CHIEF COMPLAINT: 1. Free air. 2. Cirrhosis. 3. Gastrointestinal bleed secondary to esophageal varices. 4. Anemia. HISTORY OF PRESENT ILLNESS: Mr. Clint Menon is a 71-year-old male with significant comorbidities who was initially admitted with hematemesis and has had multiple EGDs and banding and ligation of th e esophageal varices. He was also hypotensive with significant anemia and is status post blood esqueda sfusions. The patient also had developed sepsis with stool VRE and continuous of diarrhea and fungu violetta, which he is on antibiotics and antifungals. About a week ago the patient had a PEG placed by [facility] for feeding. Most recently he was found to be more distended per team and a CT was ordered which identified a small amount of free air anteriorly in the abdomen consistent with perforation of hollo w viscus, but he also has gas in the wall of the ascending colon and small adjacent mesenteric vein medial to the descending colon which could be consistent with bowel ischemia. Surgical consult was obtained for further evaluation and treatment. The patient feels better overall actually and he is denying any abdominal pain. Denies nausea, vomi ting. Denies chest pain, but has some shortness of breath. Denies cough or seizures. Denies blood per mouth or rectum currently. He has a rectal tube. He has a Crandall which is causing him a lot of discomfort and he prefers it to be removed. He denies any visual or neurologic changes that are ac [place]. PAST MEDICAL HISTORY: 1. BMI 28. 2. Decompensated cirrhosis, alcoholic and fatty liver. 3. Hypertension. 4. History of NE. 5. COPD. 6. GERD. 7. Esophageal varices. 8. BPH. 9. Mediterranean fever history. 10. Regular alcohol consumption. 11. Hepatitis C. 12. Hepatic encephalopathy history. 13. Hypothyroidism. 14. Anemia. 15. Thrombocytopenia. 16. Coagulopathy. 17. Electrolyte abnormalities. 18. Hypoalbuminemia. 19. Elevated alkaline phosphatase. 20. Funguria. 21. Stool VRE. 22. Sepsis. 23. Hypotension. 24. Paroxysmal atrial fibrillation/atrial flutter. 25. Nonspecific ST-T changes. 26. Upper GI bleed. 27. Fever history. 28. Pneumonia history. 29. Acute renal failure history. 30. Current right inguinal hernia. PAST SURGICAL HISTORY: 1. Multiple EGDs and PEG. 2. Esophageal banding. 3. Laparoscopic cholecystectomy. 4. Cataract surgery. 5. Hernia repair. SOCIAL HISTORY: 1. Regular alcohol drinker. 2. Former smoker. 3. Denies recreational drugs. FAMILY HISTORY: Noncontributory. REVIEW OF SYSTEMS: A 12-point review of systems negative unless addressed in the HPI. MEDICATIONS: As per MAR. ALLERGIES: IBUPROFEN. PHYSICAL EXAMINATION: VITAL SIGNS: Temperature is 97.7, pulse 69, blood pressure 110/63, satting 98%. GENERAL: No acute distress, slightly uncomfortable, but responsive and appropriate. HEENT: Pupils equal, reactive. No scleral icterus. Mucous membranes somewhat dry. NECK: Supple, no JVD. PULMONARY: Normal respiratory effort. No wheezing. HEART: S1, S2 present. ABDOMEN: Soft, distended, nontender, no rebound, no guarding. Right lower quadrant with a hernia t hat is slightly tender. Not rigid. PEG in place. EXTREMITIES: With minimal edema. VASCULAR: Cap refill is 2 seconds. NEUROLOGIC: Alert, oriented, moves all 4 extremities grossly; however weak. LYMPHATICS: No palpable inguinal, cervical lymph nodes. LABORATORY AND RADIOGRAPHIC: As per chart and HPI. ASSESSMENT AND PLAN: Clint Menon is a 71-year-old male with multiple significant comorbidities. 1. Free air with possible pneumatosis of ascending colon; however, completely hemodynamically at th is point stable without pain, without leukocytosis or left shift. We will obtain CT with IV, oral a nd rectal contrast to further delineate the findings and closely monitor the patient. Continue anti biotics. I had a long discussion with the patient and his son-in-law and they both fully understand the findings and are agreeable with the treatment plan. 2. Alcoholic and fatty liver and possible hepatitis, decompensated cirrhosis. Continue GI and medi valencia optimization. Encourage maintenance of cessation of alcohol use. Encourage dietary and lifesty le optimization. 3. Upper gastrointestinal bleed secondary to esophageal varices secondary to cirrhosis. Transfuse as needed. Continue close monitoring and treatment per GI. 4. Anemia. Secondary to above. As above. 5. Hypertension. Continue dietary and medication optimization. 6. Hypothyroidism. Continue medical management. 7. Funguria with stool VRE with pneumonia, with sepsis. Continue antibiotics and antifungal, suppo rtive measures, and close monitoring. 8. Hypoalbuminemia, is multifactorial. Will benefit from nutritional optimization. Thank you very much for consulting me in this patient's care. Dictated By: LORENE DUMONT/RICK Conf#: [id number] DID#: [id number] CC: RILEY CUENCA MD; SRINIVASAN SEARS MD;*EndCC*
[2016-07-13] MEDS ORDERED: SOD CHLORIDE 0.9% 100 ML ONE (22:10)
[2016-07-13] MEDS: IOHEXOL 300MG/ML 150 ML BTL ONE ×4 (22:10→22:52)
[2016-07-13] MEDS: D5W + KCL 20 MEQ 1,000 ML IV SCH (22:37)
[2016-07-14] VITALS (12 sets, daily range): BP systolic 93–126; BP diastolic 54–66; PULSE 60–84; RESP 16–20
[2016-07-14] MEDS: morphine 4 MG/ML VIAL IV PRN (02:16)
--- NOTE | 2016-07-14 03:26 | RADRPT ---
PROCEDURE: CT abdomen and pelvis with. contrast. CLINICAL INDICATION: Abdominal pain with concern for free air. TECHNIQUE: IV contrast enhanced CT examination of the abdomen and pelvis, with axial, sagittal and coronal reformatted images. 100 cc Isovue 300 nonionic IV contrast were employed. Automated dose e xposure control was employed. Oral contrast is employed. CTDI: 22.94 mGy and DLP: 1632.90 mGy-cm. COMPARISON: None. FINDINGS: CT abdomen: Bilateral small pleural effusions, left greater than right, with bilateral dependent atelectasis elissa candida airspace disease in the lower lobes, left greater than right. Degree of cardiomegaly, without p ericardial fluid. Liver is small with nodular serosa compatible with cirrhosis. Extensive moderate ascites throughout the abdomen. Heterogeneous attenuation of the liver is nonspecific, and consider ultrasound examina tion to exclude masses. Mild scattered free air greater in the non dependent right abdomen, suggesting perforation of hollow viscus. Mild to moderate pneumatosis intestinalis of the cecum and right colon, and mild pneumatosi s intestinalis in the transverse colon. Findings compatible bowel necrosis, with mild portal venous air in the right mesentery. Nonspecific mild small bowel ileus. The spleen is normal in size and homogeneous in density. The stomach has a G tube in place, and the stomach is otherwise partially collapsed, but is grossly unremarkable. The pancreas as visualized is normal. The gallbladder and biliary tree are unremarkable and there is no evidence for biliary d ilatation. The adrenal glands are symmetric and normal. The kidneys are symmetrically unremarkable as well. No renal calculus or obstructive uropathy or mass lesion is seen. The aorta is of normal caliber. Aortic vascular calcifications are present. There is no retroperit dick lymphadenopathy. The maia hepatis region is clear. CT pelvis: Small spigelian hernia at the ventral right lower pelvis, containing ascites and fat. There is asci beth throughout the pelvis. The pelvic sidewalls and inguinal regions are clear. The sigmoid colon and rectum are all unremarkable. No mass, lymphadenopathy, or free fluid is seen. No acute inflamm ation is seen. The appendix is unremarkable. The surrounding osseous structures are remarkable for mild degenerative spondylosis of the spine. N o osteolytic or osteoblastic lesion is detected. IMPRESSION: 1. Hepatic cirrhosis with extensive moderate ascites throughout the abdomen, and consider ultrasoun d correlation to exclude masses and heterogeneous liver. 2. Mild scattered free air greater in the non dependent right abdomen, suggesting perforation of ho llow viscus. 3. Mild to moderate pneumatosis intestinalis of the cecum and right colon, and mild pneumatosis int estinalis in the transverse colon. 4. Findings compatible bowel necrosis, with mild portal venous air in the right mesentery. 5. Nonspecific mild small bowel ileus. 6.. Bilateral small pleural effusions and atelectasis versus airspace disease, left greater than ri ght. These findings and impression regarding ascites, necrotic bowel, bowel perforation and free air were discussed with the patient's nurse Shahana at [facility] telemetry by the [facility] interpreting radiologist on 07/14/2016 and 0320 hours. RPTAT: UU Physician Jose Date Time Electronically viewed and signed by Malik Byers Physician on 07/14/2016 03:26 RS/
--- NOTE | 2016-07-14 04:27 | EN ---
Date/Time of Note Date/Time of Note DATE: 07/14/16 TIME: 04:18 Event Note Medicine Medicine Event Note CRITICAL RADIOLOGIC FINDINGS I received a call from patient's RN regarding critical findings on patient's CT Abd/Pelvis. She notified me that Dr. Mehta is the surgeon on the case. I reviewed the findings myself and put a call into Dr. Mehta. I obtained patient 's current vital signs and reviewed his labs. RN states patient is in pain and his abdomen is distended. He is requiring 4 mg Morphine IV Q 4 hours. Patient is afebrile, VSS and his labs are very similar to the previous labs. Dr. Mehta returned my call and he reviewed the findings with him. He is aware and comfortable that patient's vitals are stable and that his abdominal exam is benign. No action is needed at this time. I informed patient's RN of this and she will continue to keep patient as comfortable as possible. NOTE: Also, last evening, I received a call from Lucretia, Liver Coordinator at [facility]. Her number is [phone]. She was calling regarding a possible consult or transfer or something on this patient. I told her that if I did not have a chance to review his chart, I would pass on this information to the day Hospitalist, and that was acceptable to her. EDISON SIMMONS DO Jul 14, 2016 04:27
[2016-07-14] MEDS: PANTOPRAZOLE (EC) 40 MG TAB PO SCH ×2 (06:00→17:53)
[2016-07-14] MEDS: LEVOTHYROXINE 50 MCG TAB PO SCH (07:52)
[2016-07-14] MEDS: METOPROLOL 25 MG TAB PO SCH ×2 (09:00→21:00)
[2016-07-14] MEDS: FUROSEMIDE 20 MG TAB GTB SCH (09:00)
[2016-07-14] MEDS: ARTIFICIAL TEARS 15 ML OPH BOTH EYES SCH ×4 (09:22→21:08)
[2016-07-14] MEDS: LACTULOSE 30ML CUP PO SCH ×3 (09:23→17:00)
[2016-07-14] MEDS: FINASTERIDE 5 MG TAB PO SCH (09:23)
[2016-07-14] MEDS: DUTASTERIDE 0.5 MG CAP PO SCH (09:23)
[2016-07-14] MEDS: FEBUXOSTAT 40 MG TABLET PO SCH (09:23)
[2016-07-14] MEDS: predniSONE 20 MG TAB GTB SCH (09:26)
[2016-07-14] MEDS: AMIODARONE 200 MG TAB NGT SCH ×2 (09:29→21:00)
[2016-07-14 10:59] LABS: ADD SCAN DIFF NO
[2016-07-14 11:13] LABS: ABNORMAL IP MESSAGE 1; BASOPHILS % 0.6 % (0.0-2.0); EOSINOPHILS # 0.2 10^3/ul (0.0-0.5); EOSINOPHILS % 4.3 % (0.0-7.0); HEMATOCRIT 27.6 % (42.0-52.0); HEMOGLOBIN 8.5 g/dl (14.0-18.0); LYMPHOCYTES # 0.8 10^3/ul (0.8-2.9); LYMPHOCYTES % 15.6 % (15.0-51.0); MEAN CORPUSCULAR HGB CONC 30.8 g/dl (32.0-37.0); MEAN CORPUSCULAR VOLUME 94.2 fl (82.0-101.0); MEAN PLATELET VOLUME 10.9 fl (7.4-10.4); MONOCYTE # 0.5 10^3/ul (0.3-0.9); NEUTROPHIL # 3.7 10^3/ul (1.6-7.5); NEUTROPHILS % 68.9 % (39.0-77.0); PLATELET COUNT 77 10^3/UL (140-415); RED BLOOD COUNT 2.93 10^6/ul (4.70-6.10); RED CELL DISTRIBUTION WIDTH 19.5 % (11.5-14.5); WHITE BLOOD COUNT 5.4 10^3/ul (4.8-10.8)
[2016-07-14 11:21] LABS: ALBUMIN 2.3 g/dl (3.3-4.9)
[2016-07-14 11:22] LABS: POTASSIUM 3.7 mmol/L (3.5-5.1)
[2016-07-14 11:24] LABS: BILIRUBIN,INDIRECT 1.1 mg/dl (0-1.1); BILIRUBIN,TOTAL 1.1 mg/dl (0.2-1.3); CREATININE 0.72 mg/dl (0.61-1.24)
[2016-07-14 11:25] LABS: ALBUMIN/GLOBULIN RATIO 0.69; CALCIUM 7.8 mg/dl (8.4-10.2); TOTAL PROTEIN 5.6 g/dl (6.1-8.1)
--- NOTE | 2016-07-14 11:44 | PN ---
Date/Time of Note Date/Time of Note DATE: 07/14/16 TIME: 11:40 Assessment/Plan VTE Prophylaxis VTE Prophylaxis Intervention: SCD's VTE Contraindication Reason: thrombocytopenia Lines/Catheters IV Catheter Type (from Nrsg): PICC Line Central line still needed: Yes Urinary Cath still in place: No Assessment/Plan Assessment/Plan 71 yo M with 1. Severe abd pain likely associated with severe abd distention:improved 2. End stage alcoholic liver cirrhosis with coagulopathy / thrombocytopenia / Varices 3. Esophageal variceal bleeding/post EVL 4. Multiple esophageal ulcers 5. Paroxysmal atrial fibrillation/atrial flutter, now back in sinus rhythm / rate controlled 6. S/p recurrent NSVT - no new episodes now 7. S/p sepsis + Septic shock 2/2 Dorina UTI 8. 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 Chronic Anemia associated with chronic liver disease s/p multiple transfusions 10. Mild Hyponatremia: likely 2/2 fluid loss from diarrheal stools 11. Severe debility with dysphagia from prolonged hospitalization : PEG, G- tube feeding 12. Hypothyroidism 13. Free air in abd concerning for ischemic bowel, however patient clinically stable, LDH wnl 14. Urinary retention: nava d/c yesterday, PLAN: * Appreciate surgical review / remain NPO for now / f/u recs * Continue pain control / Continue to hold PEG feeds for now till surgical clearance * Will start reglan / order paracentesis / PT eval * Bladder scan and in and out cath if indicated / flomax * Patient remains rate controlled without any further tele incidents / monitor electrolytes * Hold lactulose and rifaximin for diarrhea and monitor ammonia levels * Monitor hgb levels and transfuse PRN * Continue speech therapy and resume oral diet when cleared as safe * Patient is not a candidate for anticoagulation 2/2 ulcers and coagulopathy from liver disease * terminal gauger prognosis is grim without liver transplant. High risk of readmission. Evaluation time >35mins/ Spoke with son in detail. PROPHYLAXIS: SCDs / PPI Subjective 24 Hr Interval Summary Free Text/Dictation patient state his abd pain is slightly better last alcohol use was about 4 months ago Nursing concerned about lack of urine output Exam/Review of Systems Vital Signs Vitals Vital Signs Date Time Temp Pulse Resp B/P Pulse Ox O2 Delivery O2 Flow Rate FiO2 07/14/16 08:03 65 07/14/16 07:27 98.4 20 107/54 92 07/13/16 02:55 21 07/10/16 20:00 Room Air Intake and Output 07/13/16 07/13/16 07/14/16 15:00 23:00 07:00 Intake Total 80 ml 1275 ml 400 ml Output Total 800 ml Balance 80 ml 1275 ml -400 ml Exam Constitutional: alert, distress Psych: anxiety Head: normocephalic Eyes: icteric Respiratory: diminished breath sounds Gastrointestinal: ascites (?), distended, firm, hypoactive bowel sounds Extremities: edema Neurological: lethargic, No confused Results Result Diagram: 07/14/16 1035 07/14/16 1035 Results 24 hrs Laboratory Tests Test 07/14/16 10:35 White Blood Count 5.4 Red Blood Count 2.93 L Hemoglobin 8.5 L Hematocrit 27.6 L Mean Corpuscular Volume 94.2 Mean Corpuscular Hemoglobin 29.0 Mean Corpuscular Hemoglobin Concent 30.8 L Red Cell Distribution Width 19.5 H Platelet Count 77 L Mean Platelet Volume 10.9 H Neutrophils % 68.9 Lymphocytes % 15.6 Monocytes % 10.0 Eosinophils % 4.3 Basophils % 0.6 Nucleated Red Blood Cells % 0.0 Neutrophils # 3.7 Lymphocytes # 0.8 Monocytes # 0.5 Eosinophils # 0.2 Basophils # 0.0 Nucleated Red Blood Cells # 0.0 Sodium Level 135 Potassium Level 3.7 Chloride Level 101 Carbon Dioxide Level 25 Anion Gap 13 Blood Urea Nitrogen 12 Creatinine 0.72 Glucose Level 88 Lactic Acid Level 1.6 Calcium Level 7.8 L Total Bilirubin 1.1 Direct Bilirubin 0.00 Indirect Bilirubin 1.1 Aspartate Amino Transf (AST/SGOT) 28 Alanine Aminotransferase (ALT/SGPT) 38 Alkaline Phosphatase 164 H Total Protein 5.6 L Albumin 2.3 L Globulin 3.30 H Albumin/Globulin Ratio 0.69 Medications Medications Current Medications Ondansetron HCl (Zofran Inj) 4 mg Q6H PRN IV NAUSEA AND/OR VOMITING; Start 06/09 at 04:30 Dutasteride (Avodart) 0.5 mg AM PO Last administered on 07/14/16t 09:23; Admin Dose 0.5 MG; Start 06/09/16 at 09:00 Finasteride (Proscar) 5 mg AM PO Last administered on 07/14/16 09:23; Admin Dose 5 MG; Start 06/09/16 at 09:00 Levothyroxine Sodium (Synthroid) 50 mcg DAILY@06 PO Last administered on 05:13; Admin Dose 50 MCG; Start 06/09/16 at 06:00 Rifaximin (Xifaxan) 550 mg BID PO Last administered on 07/13/16 10:20; Admin Dose 550 MG; Start 06/11/16 at 14:30; Status Future Hold Eye Lubricant (Artificial Tears Oph) 2 drop QID BOTH EYES Last administered on 07/14/16 09:22; Admin Dose 2 DROP; Start 06/12/16 at 13:00 Hydralazine HCl (Apresoline) 10 mg Q2H PRN IV SBP>170; Start 06/12/16 at 17:00 Acetaminophen (Tylenol Liquid) 650 mg Q4H PRN NGT PAIN AND OR ELEVATED TEMP Last administered on 07/13/16 05:13; Admin Dose 650 MG; Start 06/17/16 at 12:30 Lactulose (Enulose) 30 gm QID PO Last administered on 07/14/16 09:23; Admin Dose 30 GM; Start 06/24/16 at 21:30 Febuxostat (Uloric) 40 mg DAILY PO Last administered on 07/14/16 09:23; Admin Dose 40 MG; Start 06/25/16 at 15:00 Colchicine (Colchicine) 0.6 mg TID PRN PO gout pain Last administered on 05:13; Admin Dose 0.6 MG; Start 06/25/16 at 21:00 Lorazepam (Ativan) 1 mg Q6H PRN IV ANXIETY Last administered on 07/10/16 15:31 ; Admin Dose 1 MG; Start 06/25/16 at 18:30 Metoprolol Tartrate (Lopressor) 5 mg Q4H PRN IV HR>110 Last administered on 15:37; Admin Dose 5 MG; Start 06/28/16 at 16:00 Amiodarone HCl 200 mg 200 mg BID NGT Last administered on 07/14/16 09:29; Admin Dose 200 MG; Start 06/28/16 at 21:00 Potassium Chloride/Dextrose (D5W + KCl 20 Meq) 1,000 ml @ 50 mls/hr Q20H IV Last administered on 07/13/16 22:37; Admin Dose 50 MLS/HR; Start 07/02/16 at 20: 00 IV Flush (NS 10 ml) 10 ml PRN PRN IV IV PROTOCOL; Start 07/02/16 at 19:30 Tamsulosin HCl (Flomax) 0.4 mg HS PO Last administered on 07/12/16 20:54; Admin Dose 0.4 MG; Start 07/03/16 at 21:00 Miscellaneous Information 1 ea NOTE XX ; Start 07/05/16 at 20:00 Glucose (Glutose) 15 gm Q15M PRN PO DECREASED GLUCOSE; Start 07/05/16 at 20:00 Glucose (Glutose) 22.5 gm Q15M PRN PO DECREASED GLUCOSE; Start 07/05/16 at 20: 00 Dextrose (D50w Syringe) 25 ml Q15M PRN IV DECREASED GLUCOSE; Start 07/05/16 at 20:00 Dextrose (D50w Syringe) 50 ml Q15M PRN IV DECREASED GLUCOSE; Start 07/05/16 at 20:00 Glucagon (Glucagen) 1 mg Q15M PRN IM DECREASED GLUCOSE; Start 07/05/16 at 20:00 Glucose (Glutose) 15 gm Q15M PRN BUCCAL DECREASED GLUCOSE; Start 07/05/16 at 20 :00 Morphine Sulfate (morphine) 4 mg Q4H PRN IV PAIN Last administered on 07/14/16 02:16; Admin Dose 4 MG; Start 07/05/16 at 22:00 Metoprolol Tartrate 25 mg 25 mg BID PO Last administered on 07/12/16 11:13; Admin Dose 25 MG; Start 07/06/16 at 09:00 Dopamine HCl/ Dextrose 250 ml @ 7.35 mls/hr TITRATE IV ; Start 07/06/16 at 22: 00; Status Future Hold Prednisone (Prednisone) 20 mg DAILY GTB Last administered on 07/14/16 09:26; Admin Dose 20 MG; Start 07/11/16 at 09:00 Pantoprazole (Protonix Tab) 40 mg BID@06,18 PO Last administered on 07/13/16 17 :32; Admin Dose 40 MG; Start 07/10/16 at 18:00 Furosemide (Lasix) 20 mg DAILY GTB Last administered on 07/13/16t 10:21; Admin Dose 20 MG; Start 07/11/16 at 11:00 JENNIFER MORENO Jul 14, 2016 11:44
[2016-07-14] MEDS: METOCLOPRAMIDE 10 MG INJ IV SCH ×3 (12:49→23:43)
--- NOTE | 2016-07-14 13:26 | CONS ---
Date/Time of Note Date/Time of Note DATE: 07/14/16 TIME: 13:20 Assessment/Plan Assessment/Plan Chief Complaint/Hosp Course IMPRESSION: 1. Paroxysmal atrial fibrillation/atrial flutter-now SR on PO amio 2. Abnormal electrocardiogram. 3. Hypotension, now improved.-tolerating low dose BB 4. Gastrointestinal bleed.-s/p EGD with esophageal ulcers/varices s/p banding with ongoing GIB at this time 5. Cirhoss s/p banding of varices 6. Encephalopathy-ongoing 7. Anemia-worsening 8. Hypernatremia 9. Coagulopathy 10.Fever 11.PNA 12.ARF-improved 14.Hypotension-improved off pressors/stable 15.Air in wall of colon-? ischemic bowel Recc: -Tele -Continue amiodarone PO as patient able to take -Continue BB as tolerated -No asa/systemic anti-coag secondary to anemia/GIB -Follow MS closely -Follow Hgb closely -F/U cx data and continue abx's -Continue protonix/lactulose Problems: Consultation Date/Type/Reason Admit Date/Time Jun 09, 2016 at 04:01 Initial Consult Date 06/09/16 Type of Consultation: Cardiology Reason for Consultation PAF/AFL Referring Provider: MAURY BENITEZ MD Exam/Review of Systems Vital Signs Vitals Vital Signs Date Time Temp Pulse Resp B/P Pulse Ox O2 Delivery O2 Flow Rate FiO2 07/14/16 12:05 65 07/14/16 11:53 97.6 20 93/55 93 07/13/16 02:55 21 07/10/16 20:00 Room Air Intake and Output 07/13/16 07/13/16 07/14/16 15:00 23:00 07:00 Intake Total 80 ml 1275 ml 400 ml Output Total 800 ml Balance 80 ml 1275 ml -400 ml Exam Review of Systems: CONSTITUTIONAL: No fevers, chills. PULMONARY: No sob CARDIOVASCULAR: No chest pain/palpitations GASTROINTESTINAL: No nausea/vomiting. GENITOURINARY: No hematuria/dysuria. MUSCULOSKELETAL: No myagias/arthalgias. PSYCHIATRIC: The patient denies depression. NEUROLOGIC: No weakness Constitutional: alert Psych: no complaints ENMT: mucosa pink and moist Neck: supple Respiratory: diminished breath sounds (at bases/B) Cardiovascular: regular rate and rhythm Gastrointestinal: non-tender, soft Musculoskeletal: muscle tone (normal) Extremities: edema Neurological: other (No focal deficits) Results Result Diagram: 07/14/16 1035 07/14/16 1035 Results 24 hrs Laboratory Tests Test 07/14/16 10:35 White Blood Count 5.4 Red Blood Count 2.93 L Hemoglobin 8.5 L Hematocrit 27.6 L Mean Corpuscular Volume 94.2 Mean Corpuscular Hemoglobin 29.0 Mean Corpuscular Hemoglobin Concent 30.8 L Red Cell Distribution Width 19.5 H Platelet Count 77 L Mean Platelet Volume 10.9 H Neutrophils % 68.9 Lymphocytes % 15.6 Monocytes % 10.0 Eosinophils % 4.3 Basophils % 0.6 Nucleated Red Blood Cells % 0.0 Neutrophils # 3.7 Lymphocytes # 0.8 Monocytes # 0.5 Eosinophils # 0.2 Basophils # 0.0 Nucleated Red Blood Cells # 0.0 Sodium Level 135 Potassium Level 3.7 Chloride Level 101 Carbon Dioxide Level 25 Anion Gap 13 Blood Urea Nitrogen 12 Creatinine 0.72 Glucose Level 88 Lactic Acid Level 1.6 Calcium Level 7.8 L Total Bilirubin 1.1 Direct Bilirubin 0.00 Indirect Bilirubin 1.1 Aspartate Amino Transf (AST/SGOT) 28 Alanine Aminotransferase (ALT/SGPT) 38 Alkaline Phosphatase 164 H Total Protein 5.6 L Albumin 2.3 L Globulin 3.30 H Albumin/Globulin Ratio 0.69 Medications Medications Current Medications Ondansetron HCl (Zofran Inj) 4 mg Q6H PRN IV NAUSEA AND/OR VOMITING; Start 06/09 at 04:30 Dutasteride (Avodart) 0.5 mg AM PO Last administered on 07/14/16 09:23; Admin Dose 0.5 MG; Start 06/09/16 at 09:00 Finasteride (Proscar) 5 mg AM PO Last administered on 07/14/16 09:23; Admin Dose 5 MG; Start 06/09/16 at 09:00 Levothyroxine Sodium (Synthroid) 50 mcg DAILY@06 PO Last administered on 05:13; Admin Dose 50 MCG; Start 06/09/16 at 06:00 Rifaximin (Xifaxan) 550 mg BID PO Last administered on 07/13/16 10:20; Admin Dose 550 MG; Start 06/11/16 at 14:30; Status Future Hold Eye Lubricant (Artificial Tears Oph) 2 drop QID BOTH EYES Last administered on 07/14/16 12:50; Admin Dose 2 DROP; Start 06/12/16 at 13:00 Hydralazine HCl (Apresoline) 10 mg Q2H PRN IV SBP>170; Start 06/12/16 at 17:00 Acetaminophen (Tylenol Liquid) 650 mg Q4H PRN NGT PAIN AND OR ELEVATED TEMP Last administered on 07/13/16 05:13; Admin Dose 650 MG; Start 06/17/16 at 12:30 Lactulose (Enulose) 30 gm QID PO Last administered on 07/14/16 09:23; Admin Dose 30 GM; Start 06/24/16 at 21:30 Febuxostat (Uloric) 40 mg DAILY PO Last administered on 07/14/16 09:23; Admin Dose 40 MG; Start 06/25/16 at 15:00 Colchicine (Colchicine) 0.6 mg TID PRN PO gout pain Last administered on 05:13; Admin Dose 0.6 MG; Start 06/25/16 at 21:00 Lorazepam (Ativan) 1 mg Q6H PRN IV ANXIETY Last administered on 07/10/16 15:31 ; Admin Dose 1 MG; Start 06/25/16 at 18:30 Metoprolol Tartrate (Lopressor) 5 mg Q4H PRN IV HR>110 Last administered on 15:37; Admin Dose 5 MG; Start 06/28/16 at 16:00 Amiodarone HCl 200 mg 200 mg BID NGT Last administered on 07/14/16 09:29; Admin Dose 200 MG; Start 06/28/16 at 21:00 Potassium Chloride/Dextrose (D5W + KCl 20 Meq) 1,000 ml @ 50 mls/hr Q20H IV Last administered on 07/13/16 22:37; Admin Dose 50 MLS/HR; Start 07/02/16 at 20: 00 IV Flush (NS 10 ml) 10 ml PRN PRN IV IV PROTOCOL; Start 07/02/16 at 19:30 Tamsulosin HCl (Flomax) 0.4 mg HS PO Last administered on 07/12/16 20:54; Admin Dose 0.4 MG; Start 07/03/16 at 21:00 Miscellaneous Information 1 ea NOTE XX ; Start 07/05/16 at 20:00 Glucose (Glutose) 15 gm Q15M PRN PO DECREASED GLUCOSE; Start 07/05/16 at 20:00 Glucose (Glutose) 22.5 gm Q15M PRN PO DECREASED GLUCOSE; Start 07/05/16 at 20: 00 Dextrose (D50w Syringe) 25 ml Q15M PRN IV DECREASED GLUCOSE; Start 07/05/16 at 20:00 Dextrose (D50w Syringe) 50 ml Q15M PRN IV DECREASED GLUCOSE; Start 07/05/16 at 20:00 Glucagon (Glucagen) 1 mg Q15M PRN IM DECREASED GLUCOSE; Start 07/05/16 at 20:00 Glucose (Glutose) 15 gm Q15M PRN BUCCAL DECREASED GLUCOSE; Start 07/05/16 at 20 :00 Morphine Sulfate (morphine) 4 mg Q4H PRN IV PAIN Last administered on 07/14/16 02:16; Admin Dose 4 MG; Start 07/05/16 at 22:00 Metoprolol Tartrate 25 mg 25 mg BID PO Last administered on 07/12/16 11:13; Admin Dose 25 MG; Start 07/06/16 at 09:00 Dopamine HCl/ Dextrose 250 ml @ 7.35 mls/hr TITRATE IV ; Start 07/06/16 at 22: 00; Status Future Hold Prednisone (Prednisone) 20 mg DAILY GTB Last administered on 07/14/16 09:26; Admin Dose 20 MG; Start 07/11/16 at 09:00 Pantoprazole (Protonix Tab) 40 mg BID@06,18 PO Last administered on 07/13/16 17 :32; Admin Dose 40 MG; Start 07/10/16 at 18:00 Furosemide (Lasix) 20 mg DAILY GTB Last administered on 07/13/16 10:21; Admin Dose 20 MG; Start 07/11/16 at 11:00 Metoclopramide HCl (Reglan) 10 mg Q6 IV Last administered on 07/14/16 12:49; Admin Dose 10 MG; Start 07/14/16 at 12:30; Stop 07/16/16 at 12:29 ANGELES ODONNELL Jul 14, 2016 13:26
--- NOTE | 2016-07-14 14:33 | PN ---
Date/Time of Note Date/Time of Note DATE: 07/14/16 TIME: 14:14 Assessment/Plan VTE Prophylaxis VTE Prophylaxis Intervention: contraindicated, SCD's Lines/Catheters IV Catheter Type (from Nrs): PICC Line Central line still needed: Yes Urinary Cath still in place: Yes Reason Cath still needed: urinary retention Assessment/Plan Assessment/Plan * Free air in the bowel due to pneumatosis intestinalis * 07/13/2016 CT Abdomen with IV/PO contrast 1. Hepatic cirrhosis with extensive moderate ascites throughout the abdomen, and consider ultrasound correlation to exclude masses and heterogenous liver 2. Mild scattered free air greater in the non dependent right abdomen, suggesting perforation of hollow viscus. 3. Mild to moderate pneumatosis intestinalis of the cecum and right colon, and mild pneumatosis intestinalis in the transverse colon. 4 Findings compatible bowel necrosis, with mild portal venous air in the right mesentery. 5 Nonspecific mild small bowel ileus. 6 Bilateral small pleural effusions and atelectasis versus airspace disease, left greater than right * Abdominal pain improved * Esophageal variceal bleeding/post EVL/ rebleeding * 06/09/2016 EGD + EVL Actively bleeding esophageal varix post-endoscopic variceal ligation with cessation of bleeding. Large amounts of blood and clots in the stomach but no active bleeding or potential bleeding lesions present. The pylorus appears patent and duodenum with no lesions * 06/28/16 EGD + PEG PEG placement Esophageal ulcers with some old clots in the area, but no active bleeding. Nasogastric tube trauma present. * 07/02/2016 EGD Multiple esophageal ulcers. Post-endoscopic variceal ligation with no active bleeding but positive stigmata of recent bleeding. . Gastrostomy tube in place and in good condition. . No other bleeding site or potential bleeding site identified. * Anemia secondary to above/ Hgb stable * Alcoholic cirrhosis * Post variceal bleeding/post EVL * Portal encephalopathy/ improving * Ascites/Neg U/S * Coagulopathy * Unsafe swallowing/failed swallow eval/high risk for aspiration/Post EGD+PEG * VRE * Shock likely due to sepsis/improved Plan * maintain on npo * follow up surgical consult * close monitoring of patient * continue present management Subjective 24 Hr Interval Summary Free Text/Dictation * course reviewed with rn * patient seen and examined * had an episode of severe abdominal pain last night * 07/13/2016 CT abdomen with IV/PO contrast 1. Hepatic cirrhosis with extensive moderate ascites throughout the abdomen, and consider ultrasound correlation to exclude masses and heterogeneous . liver 2 Mild scattered free air greater in the non dependent right abdomen, suggesting perforation of hollow viscus. 3 Mild to moderate pneumatosis intestinalis of the cecum and right colon, and mild pneumatosis intestinalis in the transverse colon. 4 Findings compatible bowel necrosis, with mild portal venous air in the right mesentery. 5 Nonspecific mild small bowel ileus. 6 Bilateral small pleural effusions and atelectasis versus airspace disease, left greater than right. * mild abdominal; pain,no bowel movement,alert * still on npo,afebrile Exam/Review of Systems Vital Signs Vitals Vital Signs Date Time Temp Pulse Resp B/P Pulse Ox O2 Delivery O2 Flow Rate FiO2 07/14/16 12:05 65 07/14/16 11:53 97.6 20 93/55 93 07/13/16 02:55 21 07/10/16 20:00 Room Air Intake and Output 07/13/16 07/13/16 07/14/16 15:00 23:00 07:00 Intake Total 80 ml 1275 ml 400 ml Output Total 800 ml Balance 80 ml 1275 ml -400 ml Exam Constitutional: alert Respiratory: diminished breath sounds, normal air movement Cardiovascular: nl pulses, regular rate and rhythm Gastrointestinal: bowel sounds, distended, other (g tbe in placed), soft, No rebound or guarding Musculoskeletal: nl extremities to inspection Extremities: normal pulses Results Result Diagram: 07/14/16 1035 07/14/16 1035 Results 24 hrs Laboratory Tests Test 07/14/16 10:35 07/14/16 12:44 White Blood Count 5.4 Red Blood Count 2.93 L Hemoglobin 8.5 L Hematocrit 27.6 L Mean Corpuscular Volume 94.2 Mean Corpuscular Hemoglobin 29.0 Mean Corpuscular Hemoglobin Concent 30.8 L Red Cell Distribution Width 19.5 H Platelet Count 77 L Mean Platelet Volume 10.9 H Neutrophils % 68.9 Lymphocytes % 15.6 Monocytes % 10.0 Eosinophils % 4.3 Basophils % 0.6 Nucleated Red Blood Cells % 0.0 Neutrophils # 3.7 Lymphocytes # 0.8 Monocytes # 0.5 Eosinophils # 0.2 Basophils # 0.0 Nucleated Red Blood Cells # 0.0 Sodium Level 135 Potassium Level 3.7 Chloride Level 101 Carbon Dioxide Level 25 Anion Gap 13 Blood Urea Nitrogen 12 Creatinine 0.72 Glucose Level 88 Lactic Acid Level 1.6 Calcium Level 7.8 L Total Bilirubin 1.1 Direct Bilirubin 0.00 Indirect Bilirubin 1.1 Aspartate Amino Transf (AST/SGOT) 28 Alanine Aminotransferase (ALT/SGPT) 38 Alkaline Phosphatase 164 H Total Protein 5.6 L Albumin 2.3 L Globulin 3.30 H Albumin/Globulin Ratio 0.69 Ammonia 23 Medications Medications Current Medications Ondansetron HCl (Zofran Inj) 4 mg Q6H PRN IV NAUSEA AND/OR VOMITING; Start 06/09 at 04:30 Dutasteride (Avodart) 0.5 mg AM PO Last administered on 07/14/16 09:23; Admin Dose 0.5 MG; Start 06/09/16 at 09:00 Finasteride (Proscar) 5 mg AM PO Last administered on 07/14/16 09:23; Admin Dose 5 MG; Start 06/09/16 at 09:00 Levothyroxine Sodium (Synthroid) 50 mcg DAILY@06 PO Last administered on 05:13; Admin Dose 50 MCG; Start 06/09/16 at 06:00 Rifaximin (Xifaxan) 550 mg BID PO Last administered on 07/13/16 10:20; Admin Dose 550 MG; Start 06/11/16 at 14:30; Status Future Hold Eye Lubricant (Artificial Tears Oph) 2 drop QID BOTH EYES Last administered on 07/14/16 12:50; Admin Dose 2 DROP; Start 06/12/16 at 13:00 Hydralazine HCl (Apresoline) 10 mg Q2H PRN IV SBP>170; Start 06/12/16 at 17:00 Acetaminophen (Tylenol Liquid) 650 mg Q4H PRN NGT PAIN AND OR ELEVATED TEMP Last administered on 07/13/16 05:13; Admin Dose 650 MG; Start 06/17/16 at 12:30 Lactulose (Enulose) 30 gm QID PO Last administered on 07/14/16 09:23; Admin Dose 30 GM; Start 06/24/16 at 21:30 Febuxostat (Uloric) 40 mg DAILY PO Last administered on 07/14/16 09:23; Admin Dose 40 MG; Start 06/25/16 at 15:00 Colchicine (Colchicine) 0.6 mg TID PRN PO gout pain Last administered on 05:13; Admin Dose 0.6 MG; Start 06/25/16 at 21:00 Lorazepam (Ativan) 1 mg Q6H PRN IV ANXIETY Last administered on 07/10/16 15:31 ; Admin Dose 1 MG; Start 06/25/16 at 18:30 Metoprolol Tartrate (Lopressor) 5 mg Q4H PRN IV HR>110 Last administered on 15:37; Admin Dose 5 MG; Start 06/28/16 at 16:00 Amiodarone HCl 200 mg 200 mg BID NGT Last administered on 07/14/16 09:29; Admin Dose 200 MG; Start 06/28/16 at 21:00 Potassium Chloride/Dextrose (D5W + KCl 20 Meq) 1,000 ml @ 50 mls/hr Q20H IV Last administered on 07/13/16 22:37; Admin Dose 50 MLS/HR; Start 07/02/16 at 20: 00 IV Flush (NS 10 ml) 10 ml PRN PRN IV IV PROTOCOL; Start 07/02/16 at 19:30 Tamsulosin HCl (Flomax) 0.4 mg HS PO Last administered on 07/12/16 20:54; Admin Dose 0.4 MG; Start 07/03/16 at 21:00 Miscellaneous Information 1 ea NOTE XX ; Start 07/05/16 at 20:00 Glucose (Glutose) 15 gm Q15M PRN PO DECREASED GLUCOSE; Start 07/05/16 at 20:00 Glucose (Glutose) 22.5 gm Q15M PRN PO DECREASED GLUCOSE; Start 07/05/16 at 20: 00 Dextrose (D50w Syringe) 25 ml Q15M PRN IV DECREASED GLUCOSE; Start 07/05/16 at 20:00 Dextrose (D50w Syringe) 50 ml Q15M PRN IV DECREASED GLUCOSE; Start 07/05/16 at 20:00 Glucagon (Glucagen) 1 mg Q15M PRN IM DECREASED GLUCOSE; Start 07/05/16 at 20:00 Glucose (Glutose) 15 gm Q15M PRN BUCCAL DECREASED GLUCOSE; Start 07/05/16 at 20 :00 Morphine Sulfate (morphine) 4 mg Q4H PRN IV PAIN Last administered on 07/14/16 02:16; Admin Dose 4 MG; Start 07/05/16 at 22:00 Metoprolol Tartrate 25 mg 25 mg BID PO Last administered on 07/12/16 11:13; Admin Dose 25 MG; Start 07/06/16 at 09:00 Dopamine HCl/ Dextrose 250 ml @ 7.35 mls/hr TITRATE IV ; Start 07/06/16 at 22: 00; Status Future Hold Prednisone (Prednisone) 20 mg DAILY GTB Last administered on 07/14/16 09:26; Admin Dose 20 MG; Start 07/11/16 at 09:00 Pantoprazole (Protonix Tab) 40 mg BID@06,18 PO Last administered on 07/13/16 17 :32; Admin Dose 40 MG; Start 07/10/16 at 18:00 Furosemide (Lasix) 20 mg DAILY GTB Last administered on 07/13/16 10:21; Admin Dose 20 MG; Start 07/11/16 at 11:00 Metoclopramide HCl (Reglan) 10 mg Q6 IV Last administered on 07/14/16 12:49; Admin Dose 10 MG; Start 07/14/16 at 12:30; Stop 07/16/16 at 12:29 JAC DAVIS MD Jul 14, 2016 14:25
--- NOTE | 2016-07-14 14:43 | CONS ---
Date/Time of Note Date/Time of Note DATE: 07/14/16 TIME: 14:43 Assessment/Plan Assessment/Plan Chief Complaint/Hosp Course Anemia - COMPLEX, MULTIFACTORIAL WITH COMPONENT ACD, ACUTE BLOOD LOSS AND SEVERE IRON DEFICIENCY IN THE PAST * Esophageal variceal bleeding/post EVL * CONT TO MONITOR BLOOD COUNT CLOSELY * OBSERVE FOR BLEEDING AND HEMOLYSIS * PRBC NEEDED Alcoholic cirrhosis * Post variceal bleeding/post EVL * Portal encephalopathy * Ascites * Unsafe swallowing/failed swallow eval/high risk for aspiration * POST EGD plus PEG. * POST paracenteses prior to procedure. 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 Problems: Consultation Date/Type/Reason Admit Date/Time Jun 09, 2016 at 04:01 Initial Consult Date 06/09/16 Type of Consultation: hemeonc Referring Provider: MAURY BENITEZ MD 24 HR Interval Summary Free Text/Dictation + ABD PAIN COUNT REVIEWED Exam/Review of Systems Vital Signs Vitals Vital Signs Date Time Temp Pulse Resp B/P Pulse Ox O2 Delivery O2 Flow Rate FiO2 07/14/16 12:05 65 07/14/16 11:53 97.6 20 93/55 93 07/13/16 02:55 21 07/10/16 20:00 Room Air Intake and Output 07/13/16 07/13/16 07/14/16 15:00 23:00 07:00 Intake Total 80 ml 1275 ml 400 ml Output Total 800 ml Balance 80 ml 1275 ml -400 ml Exam Constitutional: alert Respiratory: diminished breath sounds, normal air movement Cardiovascular: nl pulses, regular rate and rhythm Gastrointestinal: bowel sounds, distended, other (g tbe in placed), soft, No rebound or guarding Musculoskeletal: nl extremities to inspection Extremities: normal pulses Results Result Diagram: 07/14/16 1035 07/14/16 1035 Results 24 hrs Laboratory Tests Test 07/14/16 10:35 07/14/16 12:44 White Blood Count 5.4 Red Blood Count 2.93 L Hemoglobin 8.5 L Hematocrit 27.6 L Mean Corpuscular Volume 94.2 Mean Corpuscular Hemoglobin 29.0 Mean Corpuscular Hemoglobin Concent 30.8 L Red Cell Distribution Width 19.5 H Platelet Count 77 L Mean Platelet Volume 10.9 H Neutrophils % 68.9 Lymphocytes % 15.6 Monocytes % 10.0 Eosinophils % 4.3 Basophils % 0.6 Nucleated Red Blood Cells % 0.0 Neutrophils # 3.7 Lymphocytes # 0.8 Monocytes # 0.5 Eosinophils # 0.2 Basophils # 0.0 Nucleated Red Blood Cells # 0.0 Sodium Level 135 Potassium Level 3.7 Chloride Level 101 Carbon Dioxide Level 25 Anion Gap 13 Blood Urea Nitrogen 12 Creatinine 0.72 Glucose Level 88 Lactic Acid Level 1.6 Calcium Level 7.8 L Total Bilirubin 1.1 Direct Bilirubin 0.00 Indirect Bilirubin 1.1 Aspartate Amino Transf (AST/SGOT) 28 Alanine Aminotransferase (ALT/SGPT) 38 Alkaline Phosphatase 164 H Total Protein 5.6 L Albumin 2.3 L Globulin 3.30 H Albumin/Globulin Ratio 0.69 Ammonia 23 Medications Medications Current Medications Ondansetron HCl (Zofran Inj) 4 mg Q6H PRN IV NAUSEA AND/OR VOMITING; Start 06/09 at 04:30 Dutasteride (Avodart) 0.5 mg AM PO Last administered on 07/14/16 09:23; Admin Dose 0.5 MG; Start 06/09/16 at 09:00 Finasteride (Proscar) 5 mg AM PO Last administered on 07/14/16 09:23; Admin Dose 5 MG; Start 06/09/16 at 09:00 Levothyroxine Sodium (Synthroid) 50 mcg DAILY@06 PO Last administered on 05:13; Admin Dose 50 MCG; Start 06/09/16 at 06:00 Rifaximin (Xifaxan) 550 mg BID PO Last administered on 07/13/16 10:20; Admin Dose 550 MG; Start 06/11/16 at 14:30; Status Future Hold Eye Lubricant (Artificial Tears Oph) 2 drop QID BOTH EYES Last administered on 07/14/16 12:50; Admin Dose 2 DROP; Start 06/12/16 at 13:00 Hydralazine HCl (Apresoline) 10 mg Q2H PRN IV SBP>170; Start 06/12/16 at 17:00 Acetaminophen (Tylenol Liquid) 650 mg Q4H PRN NGT PAIN AND OR ELEVATED TEMP Last administered on 07/13/16 05:13; Admin Dose 650 MG; Start 06/17/16 at 12:30 Lactulose (Enulose) 30 gm QID PO Last administered on 07/14/16 09:23; Admin Dose 30 GM; Start 06/24/16 at 21:30 Febuxostat (Uloric) 40 mg DAILY PO Last administered on 07/14/16 09:23; Admin Dose 40 MG; Start 06/25/16 at 15:00 Colchicine (Colchicine) 0.6 mg TID PRN PO gout pain Last administered on 05:13; Admin Dose 0.6 MG; Start 06/25/16 at 21:00 Lorazepam (Ativan) 1 mg Q6H PRN IV ANXIETY Last administered on 07/10/16 15:31 ; Admin Dose 1 MG; Start 06/25/16 at 18:30 Metoprolol Tartrate (Lopressor) 5 mg Q4H PRN IV HR>110 Last administered on 15:37; Admin Dose 5 MG; Start 06/28/16 at 16:00 Amiodarone HCl 200 mg 200 mg BID NGT Last administered on 07/14/16 09:29; Admin Dose 200 MG; Start 06/28/16 at 21:00 Potassium Chloride/Dextrose (D5W + KCl 20 Meq) 1,000 ml @ 50 mls/hr Q20H IV Last administered on 07/13/16 22:37; Admin Dose 50 MLS/HR; Start 07/02/16 at 20: 00 IV Flush (NS 10 ml) 10 ml PRN PRN IV IV PROTOCOL; Start 07/02/16 at 19:30 Tamsulosin HCl (Flomax) 0.4 mg HS PO Last administered on 07/12/16 20:54; Admin Dose 0.4 MG; Start 07/03/16 at 21:00 Miscellaneous Information 1 ea NOTE XX ; Start 07/05/16 at 20:00 Glucose (Glutose) 15 gm Q15M PRN PO DECREASED GLUCOSE; Start 07/05/16 at 20:00 Glucose (Glutose) 22.5 gm Q15M PRN PO DECREASED GLUCOSE; Start 07/05/16 at 20: 00 Dextrose (D50w Syringe) 25 ml Q15M PRN IV DECREASED GLUCOSE; Start 07/05/16 at 20:00 Dextrose (D50w Syringe) 50 ml Q15M PRN IV DECREASED GLUCOSE; Start 07/05/16 at 20:00 Glucagon (Glucagen) 1 mg Q15M PRN IM DECREASED GLUCOSE; Start 07/05/16 at 20:00 Glucose (Glutose) 15 gm Q15M PRN BUCCAL DECREASED GLUCOSE; Start 07/05/16 at 20 :00 Morphine Sulfate (morphine) 4 mg Q4H PRN IV PAIN Last administered on 07/14/16 02:16; Admin Dose 4 MG; Start 07/05/16 at 22:00 Metoprolol Tartrate 25 mg 25 mg BID PO Last administered on 07/12/16 11:13; Admin Dose 25 MG; Start 07/06/16 at 09:00 Dopamine HCl/ Dextrose 250 ml @ 7.35 mls/hr TITRATE IV ; Start 07/06/16 at 22: 00; Status Future Hold Prednisone (Prednisone) 20 mg DAILY GTB Last administered on 07/14/16 09:26; Admin Dose 20 MG; Start 07/11/16 at 09:00 Pantoprazole (Protonix Tab) 40 mg BID@06,18 PO Last administered on 07/13/16 17 :32; Admin Dose 40 MG; Start 07/10/16 at 18:00 Furosemide (Lasix) 20 mg DAILY GTB Last administered on 07/13/16 10:21; Admin Dose 20 MG; Start 07/11/16 at 11:00 Metoclopramide HCl (Reglan) 10 mg Q6 IV Last administered on 07/14/16 12:49; Admin Dose 10 MG; Start 07/14/16 at 12:30; Stop 07/16/16 at 12:29 Procedures Procedures [place] [id number] Radiology Main Line: [phone] DIAGNOSTIC IMAGING REPORT Patient: SUKHDEV GARVEY : 1945 Age: 71 Sex: M MR #: [id number] DOS: 07/13/16 1357 Ordering MD: JENNIFER MORENO [facility]: CT Abdomen and Pelvis without contrast. CLINICAL INDICATION: Abdominal and pelvic pain. Abdominal distension. TECHNIQUE: CT scan of the abdomen and pelvis without contrast was performed. Coronal and sagittal reformatted images were obtained from the axial source images. Images were reviewed on a high-resolution PACS workstation. Total exam DLP is 1556.82 mGy-cm. CTDIvol is 21.59 mGy. One or more of the following dose reduction techniques were used: Automated exposure control, adjustment of the mA and/or kV according to patient size, use of iterative reconstruction technique. COMPARISON: None. FINDINGS: There is mild atelectasis at the lung bases posteriorly with left worse than right. The lung bases are otherwise normal. There is a normal heart size and there is no pericardial effusion. There is no right pleural effusion. There is a small left pleural effusion. A central line is present with the tip in the cavoatrial junction region. The liver is enlarged with enlargement of the left lobe and a nodular surface consistent with cirrhosis. There is no focal hepatic lesion. The gallbladder and bile ducts are normal. The spleen is enlarged. There is no focal splenic lesion. Multiple dilated veins are present in the upper abdomen consistent with portal hypertension. Both adrenals are normal with no enlargement or mass. The pancreas is unremarkable with no mass or evidence of pancreatitis. There is no renal mass or hydronephrosis. There is no renal calculus or ureteral calculus. The abdominal aorta is not dilated. There is calcification in the aorta consistent with atherosclerosis. There is no retroperitoneal lymphadenopathy or mass. There is no pelvic lymphadenopathy or mass. There is a Crandall catheter in the bladder. The bladder contains urine with a volume of approximately 400 ml. The periappendiceal region is unremarkable with no evidence of appendicitis. There is a gastrostomy tube in satisfactory position in the stomach. A rectal tube is present with the balloon inflated in the mid to lower sigmoid colon. There is probably gas in the bowel wall in the ascending colon with gas in small mesenteric veins medial to the ascending colon. There is a right inguinal hernia containing mesenteric fat and a small amount of ascites. The bowel and mesentery are otherwise normal. There is moderate ascites. There is a small amount of free air anteriorly in the abdomen. There are degenerative changes of the spine. There is no fracture or lytic lesion. IMPRESSION: 1. Mild atelectasis at the lung bases posteriorly with left worse than right. 2. Small left pleural effusion. 3. Central line tip in the cavoatrial junction region. The R-4 hepatomegaly and nodular liver consistent with cirrhosis. 5. Splenomegaly. 6. Portal hypertension with multiple dilated veins in the upper abdomen. 7. Atherosclerosis. 8. Crandall catheter in the bladder. Urine in the bladder with S a volume of approximately 400 ml 9. Gastrostomy tube in satisfactory position. 10. Rectal tube with the balloon inflated in the mid to lower sigmoid colon. 11. Probable gas in the wall of the ascending colon and gas in the small adjacent mesenteric vein medial to the ascending colon. Findings consistent with bowel ischemia. 12. Right inguinal hernia containing mesenteric fat and a small amount of ascites. 13. Moderate ascites in the abdomen and pelvis. 14. Small amount of free air anteriorly in the abdomen consistent with perforation of hollow viscus. 15. Degenerative changes of the spine. Call report: A call report of the findings was made to Dr. Moreno on 07/13/2016 at 1710 hours. RPTAT: QQ .Emmanuel Murillo MD, MD Date Time Electronically viewed and signed by .Emmanuel Murillo MD, on 07/13/2016 17:13 .R/ CC: JENNIFER MORENO VERA M MD Jul 14, 2016 14:43
[2016-07-14] MEDS: TAMSULOSIN (SR) 0.4 MG CAP PO SCH (21:08)
[2016-07-14] MEDS: D5W + KCL 20 MEQ 1,000 ML IV SCH (23:24)
--- NOTE | 2016-07-14 23:55 | PN ---
Date/Time of Note Date/Time of Note DATE: 07/14/16 TIME: 23:55 Assessment/Plan Lines/Catheters IV Catheter Type (from [facility]): PICC Line Crandall in Place (from [facility]): Yes Assessment/Plan Chief Complaint/Hosp Course 1. Free air with neumatosis of portion of colon; however, completely hemodynamically at this point stable without pain, without leukocytosis or left shift. Discussed with multiple family members and medical team members. Doubt ischemic process at this point (?benign pneumatosis). -antibiotics -judicious fluids -close monitoring -if worsened, will proceed with surgical exploration despite aggie risk 2. Alcoholic and fatty liver and possible hepatitis, decompensated cirrhosis. Continue GI and medical optimization. Encourage maintenance of cessation of alcohol use. Encourage dietary and lifestyle optimization. 3. Upper gastrointestinal bleed secondary to esophageal varices secondary to cirrhosis. Transfuse as needed. Continue close monitoring and treatment per GI. 4. Anemia. Secondary to above. As above. 5. Hypertension. Continue dietary and medication optimization. 6. Hypothyroidism. Continue medical management. 7. Funguria with stool VRE with pneumonia, with sepsis. Continue antibiotics and antifungal, supportive measures, and close monitoring. 8. Hypoalbuminemia, is multifactorial. Will benefit from nutritional optimization. Thank you Problems: Subjective [address] noted. No leak of contrast per radiologist. No n/v. No f/c. No cough. No sz. No bleeding per mouth or rectum. No hickey/dizzy/visual or neuro changes. No pyuria. Feels better overall. Min pain. Exam/Review of Systems Vital Signs Vitals Vital Signs Date Time Temp Pulse Resp B/P Pulse Ox O2 Delivery O2 Flow Rate FiO2 07/14/16 20:09 68 07/14/16 20:02 97.4 16 108/63 92 07/13/16 02:55 21 Intake and Output 07/14/16 07/14/16 07/15/16 15:00 23:00 07:00 Intake Total 850 ml Balance 850 ml Exam Free Text/Dictation GENERAL: No acute distress, slightly uncomfortable, but responsive and appropriate. HEENT: Pupils equal, reactive. No scleral icterus. Mucous membranes somewhat dry. NECK: Supple, no JVD. PULMONARY: Normal respiratory effort. No wheezing. HEART: S1, S2 present. ABDOMEN: Soft, distended, no rebound, no guarding. Right lower quadrant with a hernia that is slightly tender. Not rigid. PEG in place. EXTREMITIES: With minimal edema. VASCULAR: Cap refill is 2 seconds. NEUROLOGIC: Alert, oriented, moves all 4 extremities grossly; however weak. LYMPHATICS: No palpable inguinal, cervical lymph nodes. Results Free Text/Dictation CT: 1. Hepatic cirrhosis with extensive moderate ascites throughout the abdomen, and consider ultrasound correlation to exclude masses and heterogeneous liver. 2. Mild scattered free air greater in the non dependent right abdomen, suggesting perforation of hollow viscus. 3. Mild to moderate pneumatosis intestinalis of the cecum and right colon, and mild pneumatosis intestinalis in the transverse colon. 4. Findings compatible bowel necrosis, with mild portal venous air in the right mesentery. 5. Nonspecific mild small bowel ileus. 6.. Bilateral small pleural effusions and atelectasis versus airspace disease, left greater than right. NO LEAK OF CONTRAST FROM ANY OF BOWEL PER NIGHT RADIOLOGIST Result Diagram: 07/14/16 1035 07/14/16 1035 LORENE KAT MD Jul 14, 2016 23:55
[2016-07-15] VITALS (12 sets, daily range): BP systolic 104–120; BP diastolic 54–64; PULSE 59–65; RESP 16–18
[2016-07-15] MEDS: LACTULOSE 30ML CUP PO SCH ×4 (01:00→17:51)
[2016-07-15] MEDS: morphine 4 MG/ML VIAL IV PRN ×2 (01:12→12:08)
[2016-07-15] MEDS: LEVOTHYROXINE 50 MCG TAB PO SCH (05:59)
[2016-07-15] MEDS: METOCLOPRAMIDE 10 MG INJ IV SCH ×3 (05:59→17:51)
[2016-07-15] MEDS: PANTOPRAZOLE (EC) 40 MG TAB PO SCH ×2 (05:59→17:51)
[2016-07-15] MEDS ORDERED: IOHEXOL 300MG/ML 30 ML BTL PO ONE (07:00)
[2016-07-15 07:23] LABS: ADD SCAN DIFF NO
[2016-07-15 07:31] LABS: ABNORMAL IP MESSAGE 1; BASOPHILS % 0.2 % (0.0-2.0); EOSINOPHILS # 0.2 10^3/ul (0.0-0.5); HEMATOCRIT 25.9 % (42.0-52.0); LYMPHOCYTES # 0.7 10^3/ul (0.8-2.9); LYMPHOCYTES % 17.3 % (15.0-51.0); MEAN CORPUSCULAR HEMOGLOBIN 28.8 pg (29.0-33.0); MEAN CORPUSCULAR HGB CONC 30.9 g/dl (32.0-37.0); MEAN CORPUSCULAR VOLUME 93.2 fl (82.0-101.0); MEAN PLATELET VOLUME 10.9 fl (7.4-10.4); MONOCYTE # 0.4 10^3/ul (0.3-0.9); MONOCYTES % 9.3 % (0.0-11.0); NEUTROPHIL # 2.9 10^3/ul (1.6-7.5); RED BLOOD COUNT 2.78 10^6/ul (4.70-6.10); WHITE BLOOD COUNT 4.2 10^3/ul (4.8-10.8)
[2016-07-15 07:41] LABS: ALBUMIN 2.3 g/dl (3.3-4.9)
[2016-07-15 07:42] LABS: POTASSIUM 3.7 mmol/L (3.5-5.1)
[2016-07-15 07:44] LABS: ALBUMIN/GLOBULIN RATIO 0.69; BILIRUBIN,INDIRECT 1.4 mg/dl (0-1.1); BILIRUBIN,TOTAL 1.4 mg/dl (0.2-1.3); CREATININE 0.71 mg/dl (0.61-1.24); TOTAL PROTEIN 5.6 g/dl (6.1-8.1)
[2016-07-15 07:45] LABS: CALCIUM 7.7 mg/dl (8.4-10.2); MAGNESIUM 1.7 mg/dl (1.7-2.5); PLATELET COUNT 73 10^3/UL (140-415)
[2016-07-15 08:23] LABS: INR 1.4; PROTIME 17.2 Sec (12.2-14.2); PT RATIO 1.3
[2016-07-15 08:24] LABS: PARTIAL THROMBOPLASTIN TIME 29.7 Sec (25.0-35.0)
[2016-07-15] MEDS: AMIODARONE 200 MG TAB NGT SCH ×2 (09:00→21:00)
[2016-07-15] MEDS: FEBUXOSTAT 40 MG TABLET PO SCH (09:00)
[2016-07-15] MEDS: FUROSEMIDE 20 MG TAB GTB SCH (09:00)
[2016-07-15] MEDS: DUTASTERIDE 0.5 MG CAP PO SCH (09:00)
[2016-07-15] MEDS: FINASTERIDE 5 MG TAB PO SCH (09:00)
[2016-07-15] MEDS: predniSONE 20 MG TAB GTB SCH (09:00)
[2016-07-15] MEDS: METOPROLOL 25 MG TAB PO SCH ×2 (09:00→21:00)
[2016-07-15] MEDS ORDERED: LIDOCAINE 1% (MPF) 5 ML VIAL ONE (11:54)
--- NOTE | 2016-07-15 12:19 | CONS ---
Date/Time of Note Date/Time of Note DATE: 07/15/16 TIME: 12:17 Assessment/Plan Assessment/Plan Chief Complaint/Hosp Course IMPRESSION: 1. Paroxysmal atrial fibrillation/atrial flutter-now SR on PO amio 2. Abnormal electrocardiogram. 3. Hypotension, now improved.-tolerating low dose BB 4. Gastrointestinal bleed.-s/p EGD with esophageal ulcers/varices s/p banding with ongoing GIB at this time 5. Cirhosis s/p banding of varices 6. Encephalopathy-ongoing 7. Anemia-worsening 8. Hypernatremia 9. Coagulopathy 10.Fever 11.PNA 12.ARF-improved 14.Hypotension-improved off pressors/stable 15.Air in wall of colon-? ischemic bowel Recc: -Tele -Continue amiodarone/BB when patient PO as patient able to take -No asa/systemic anti-coag secondary to anemia/GIB -Follow MS closely -Follow Hgb closely -F/U cx data and continue abx's -Continue protonix/lactulose -Ongoing surgical eval of pneumatosis Problems: Consultation Date/Type/Reason Admit Date/Time Jun 09, 2016 at 04:01 Initial Consult Date 06/09/16 Type of Consultation: Cardiology Reason for Consultation PAFL Referring Provider: MAURY BENITEZ MD Exam/Review of Systems Vital Signs Vitals Vital Signs Date Time Temp Pulse Resp B/P Pulse Ox O2 Delivery O2 Flow Rate FiO2 07/15/16 12:12 61 07/15/16 12:02 98.3 18 111/54 96 07/13/16 02:55 21 Intake and Output 07/14/16 07/14/16 07/15/16 15:00 23:00 07:00 Intake Total 850 ml 450 ml Output Total 300 ml Balance 850 ml 150 ml Exam Review of Systems: CONSTITUTIONAL: No fevers, chills. PULMONARY: No sob CARDIOVASCULAR: No chest pain/palpitations GASTROINTESTINAL: No nausea/vomiting. GENITOURINARY: No hematuria/dysuria. MUSCULOSKELETAL: No myagias/arthalgias. PSYCHIATRIC: The patient denies depression. NEUROLOGIC: No weakness Constitutional: alert, oriented Psych: no complaints Head: normocephalic ENMT: mucosa pink and moist Neck: supple Respiratory: diminished breath sounds (at bases/B) Cardiovascular: regular rate and rhythm Gastrointestinal: non-tender, soft Musculoskeletal: muscle tone (normal) Extremities: edema (none) Neurological: other (No focal deficits) Results Result Diagram: 07/15/16 0616 07/15/16 0616 Results 24 hrs Laboratory Tests Test 07/14/16 12:44 07/15/16 06:16 Ammonia 23 White Blood Count 4.2 #L Red Blood Count 2.78 L Hemoglobin 8.0 L Hematocrit 25.9 L Mean Corpuscular Volume 93.2 Mean Corpuscular Hemoglobin 28.8 L Mean Corpuscular Hemoglobin Concent 30.9 L Red Cell Distribution Width 20.0 H Platelet Count 73 L Mean Platelet Volume 10.9 H Neutrophils % 69.0 Lymphocytes % 17.3 Monocytes % 9.3 Eosinophils % 4.0 Basophils % 0.2 Nucleated Red Blood Cells % 0.0 Neutrophils # 2.9 Lymphocytes # 0.7 L Monocytes # 0.4 Eosinophils # 0.2 Basophils # 0.0 Nucleated Red Blood Cells # 0.0 Prothrombin Time 17.2 H Prothrombin Time Ratio 1.3 INR International Normalized Ratio 1.40 Activated Partial Thromboplast Time 29.7 Sodium Level 132 L Potassium Level 3.7 Chloride Level 100 Carbon Dioxide Level 25 Anion Gap 11 Blood Urea Nitrogen 11 Creatinine 0.71 Glucose Level 80 Calcium Level 7.7 L Magnesium Level 1.7 Total Bilirubin 1.4 H Direct Bilirubin 0.00 Indirect Bilirubin 1.4 H Aspartate Amino Transf (AST/SGOT) 26 Alanine Aminotransferase (ALT/SGPT) 35 Alkaline Phosphatase 162 H Total Protein 5.6 L Albumin 2.3 L Globulin 3.30 H Albumin/Globulin Ratio 0.69 Medications Medications Current Medications Ondansetron HCl (Zofran Inj) 4 mg Q6H PRN IV NAUSEA AND/OR VOMITING; Start 06/09 at 04:30 Dutasteride (Avodart) 0.5 mg AM PO Last administered on 07/14/16 09:23; Admin Dose 0.5 MG; Start 06/09/16 at 09:00 Finasteride (Proscar) 5 mg AM PO Last administered on 07/14/16 09:23; Admin Dose 5 MG; Start 06/09/16 at 09:00 Levothyroxine Sodium (Synthroid) 50 mcg DAILY@06 PO Last administered on 05:13; Admin Dose 50 MCG; Start 06/09/16 at 06:00 Rifaximin (Xifaxan) 550 mg BID PO Last administered on 07/13/16 10:20; Admin Dose 550 MG; Start 06/11/16 at 14:30; Status Future Hold Eye Lubricant (Artificial Tears Oph) 2 drop QID BOTH EYES Last administered on 07/14/16 21:08; Admin Dose 2 DROP; Start 06/12/16 at 13:00 Hydralazine HCl (Apresoline) 10 mg Q2H PRN IV SBP>170; Start 06/12/16 at 17:00 Acetaminophen (Tylenol Liquid) 650 mg Q4H PRN NGT PAIN AND OR ELEVATED TEMP Last administered on 07/13/16 05:13; Admin Dose 650 MG; Start 06/17/16 at 12:30 Febuxostat (Uloric) 40 mg DAILY PO Last administered on 07/14/16 09:23; Admin Dose 40 MG; Start 06/25/16 at 15:00 Colchicine (Colchicine) 0.6 mg TID PRN PO gout pain Last administered on 05:13; Admin Dose 0.6 MG; Start 06/25/16 at 21:00 Lorazepam (Ativan) 1 mg Q6H PRN IV ANXIETY Last administered on 07/10/16 15:31 ; Admin Dose 1 MG; Start 06/25/16 at 18:30 Metoprolol Tartrate (Lopressor) 5 mg Q4H PRN IV HR>110 Last administered on 15:37; Admin Dose 5 MG; Start 06/28/16 at 16:00 Amiodarone HCl 200 mg 200 mg BID NGT Last administered on 07/14/16 09:29; Admin Dose 200 MG; Start 06/28/16 at 21:00 Potassium Chloride/Dextrose (D5W + KCl 20 Meq) 1,000 ml @ 50 mls/hr Q20H IV Last administered on 07/14/16 23:24; Admin Dose 50 MLS/HR; Start 07/02/16 at 20: 00 IV Flush (NS 10 ml) 10 ml PRN PRN IV IV PROTOCOL; Start 07/02/16 at 19:30 Tamsulosin HCl (Flomax) 0.4 mg HS PO Last administered on 07/14/16 21:08; Admin Dose 0.4 MG; Start 07/03/16 at 21:00 Miscellaneous Information 1 ea NOTE XX ; Start 07/05/16 at 20:00 Glucose (Glutose) 15 gm Q15M PRN PO DECREASED GLUCOSE; Start 07/05/16 at 20:00 Glucose (Glutose) 22.5 gm Q15M PRN PO DECREASED GLUCOSE; Start 07/05/16 at 20: 00 Dextrose (D50w Syringe) 25 ml Q15M PRN IV DECREASED GLUCOSE; Start 07/05/16 at 20:00 Dextrose (D50w Syringe) 50 ml Q15M PRN IV DECREASED GLUCOSE; Start 07/05/16 at 20:00 Glucagon (Glucagen) 1 mg Q15M PRN IM DECREASED GLUCOSE; Start 07/05/16 at 20:00 Glucose (Glutose) 15 gm Q15M PRN BUCCAL DECREASED GLUCOSE; Start 07/05/16 at 20 :00 Morphine Sulfate (morphine) 4 mg Q4H PRN IV PAIN Last administered on 07/15/16 12:08; Admin Dose 4 MG; Start 07/05/16 at 22:00 Metoprolol Tartrate 25 mg 25 mg BID PO Last administered on 07/12/16 11:13; Admin Dose 25 MG; Start 07/06/16 at 09:00 Dopamine HCl/ Dextrose 250 ml @ 7.35 mls/hr TITRATE IV ; Start 07/06/16 at 22: 00; Status Future Hold Prednisone (Prednisone) 20 mg DAILY GTB Last administered on 07/14/16 09:26; Admin Dose 20 MG; Start 07/11/16 at 09:00 Pantoprazole (Protonix Tab) 40 mg BID@06,18 PO Last administered on 07/13/16 17 :32; Admin Dose 40 MG; Start 07/10/16 at 18:00 Furosemide (Lasix) 20 mg DAILY GTB Last administered on 07/13/16 10:21; Admin Dose 20 MG; Start 07/11/16 at 11:00 Metoclopramide HCl (Reglan) 10 mg Q6 IV Last administered on 07/15/16 05:59; Admin Dose 10 MG; Start 07/14/16 at 12:30; Stop 07/16/16 at 12:29 Lactulose (Enulose) 20 gm Q8H PO ; Start 07/15/16 at 01:00 ANGELES ODONNELL Jul 15, 2016 12:19
[2016-07-15] MEDS: ARTIFICIAL TEARS 15 ML OPH BOTH EYES SCH ×4 (13:00→21:37)
--- NOTE | 2016-07-15 13:07 | RADRPT ---
PROCEDURE: Ultrasound guided paracentesis. CLINICAL INDICATION: Ascites and shortness of breath. COMPARISON: No prior studies are available for comparison. TECHNIQUE: The risks, benefits, and alternatives were explained to the patient and/or the patient's family, inc luding but not limited to bleeding, infection, pain, visceral or vascular damage, shock, and . The patient and/or the patient's family understood the risks and the alternatives and wished to pro ceed with the procedure. Informed written consent was obtained. A procedural time out was performed . The patient's name, date of , and procedure to be performed were verified. Utilizing ultrasound guidance, optimal location for entry to the peritoneal cavity was ascertained. The overlying skin was prepped and draped in the usual sterile fashion. Approximately 10 ml of 1% Xylocaine was injected locally for pain control. Using ultrasound guidance, an 8 [place] catheter wa s introduced into the peritoneal cavity in the left lower quadrant without difficulty. FINDINGS: Initial images demonstrate ascites. Approximately 2.6 liters of serous fluid was aspirated and sent for laboratory analysis. The patient tolerated the procedure well without complication. IMPRESSION: 1. Successful ultrasound-guided paracentesis. RPTAT: QQ .Emmanuel Murillo MD, MD Date Time Electronically viewed and signed by .Emmanuel Murillo MD, on 07/15/2016 13:06 .R/
--- NOTE | 2016-07-15 13:24 | PN ---
Date/Time of Note Date/Time of Note DATE: 07/15/16 TIME: 13:19 Assessment/Plan VTE Prophylaxis VTE Prophylaxis Intervention: SCD's Lines/Catheters IV Catheter Type (from Nrs): PICC Line Urinary Cath still in place: No Assessment/Plan Assessment/Plan 71 yo M with 1. Severe abd pain likely associated with severe abd distention:improved 2. 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 Esophageal variceal bleeding/post EVL 4. Multiple esophageal ulcers 5. Paroxysmal atrial fibrillation/atrial flutter, now back in sinus rhythm / rate controlled on amiodarone and BB 6. S/p recurrent NSVT - no new episodes now 7. S/p sepsis + Septic shock 2/2 Dorina UTI 8. 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 Chronic Anemia associated with chronic liver disease s/p multiple transfusions 10. Mild Hyponatremia: likely 2/2 fluid loss from diarrheal stools 11. Severe debility with dysphagia from prolonged hospitalization : PEG, G- tube feeding 12. Hypothyroidism 13. Pneumatosis intestinalis concerning for ischemic bowel, however patient clinically stable, LDH wnl * may be 2/2 SBP 14. BPH with Urinary retention: nava d/c yesterday, PLAN: * Paracentesis today and send fluid for cytology, analysis and cultures * Appreciate surgical review / remain NPO except for now / f/u recs * Continue pain control / Continue to hold PEG feeds for now till surgical clearance * Continue intermittent catheterization PRN residuals >200 / Continue home flomax and tamsulosin / push for aggressive ambulation * Patient remains rate controlled without any further tele incidents / monitor electrolytes * Continue lactulose at reduced dose / hold for diarrhea * Monitor hgb levels and transfuse PRN * Continue speech therapy and resume oral diet when cleared as safe * Patient is not a candidate for anticoagulation 2/2 ulcers and coagulopathy from liver disease * [employer]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 High risk of readmission. Evaluation time >35mins/ Spoke with son in detail. PROPHYLAXIS: SCDs / PPI Exam/Review of Systems Vital Signs Vitals Vital Signs Date Time Temp Pulse Resp B/P Pulse Ox O2 Delivery O2 Flow Rate FiO2 07/15/16 12:12 61 07/15/16 12:02 98.3 18 111/54 96 07/13/16 02:55 21 Intake and Output 07/14/16 07/14/16 07/15/16 15:00 23:00 07:00 Intake Total 850 ml 450 ml Output Total 300 ml Balance 850 ml 150 ml Exam Constitutional: alert, distress Psych: anxiety Head: normocephalic Eyes: icteric Respiratory: diminished breath sounds Gastrointestinal: ascites (?), distended, firm, hypoactive bowel sounds Extremities: edema Neurological: lethargic, No confused Results Result Diagram: 07/15/16 0616 07/15/16 0616 Results 24 hrs Laboratory Tests Test 07/15/16 06:16 White Blood Count 4.2 #L Red Blood Count 2.78 L Hemoglobin 8.0 L Hematocrit 25.9 L Mean Corpuscular Volume 93.2 Mean Corpuscular Hemoglobin 28.8 L Mean Corpuscular Hemoglobin Concent 30.9 L Red Cell Distribution Width 20.0 H Platelet Count 73 L Mean Platelet Volume 10.9 H Neutrophils % 69.0 Lymphocytes % 17.3 Monocytes % 9.3 Eosinophils % 4.0 Basophils % 0.2 Nucleated Red Blood Cells % 0.0 Neutrophils # 2.9 Lymphocytes # 0.7 L Monocytes # 0.4 Eosinophils # 0.2 Basophils # 0.0 Nucleated Red Blood Cells # 0.0 Prothrombin Time 17.2 H Prothrombin Time Ratio 1.3 INR International Normalized Ratio 1.40 Activated Partial Thromboplast Time 29.7 Sodium Level 132 L Potassium Level 3.7 Chloride Level 100 Carbon Dioxide Level 25 Anion Gap 11 Blood Urea Nitrogen 11 Creatinine 0.71 Glucose Level 80 Calcium Level 7.7 L Magnesium Level 1.7 Total Bilirubin 1.4 H Direct Bilirubin 0.00 Indirect Bilirubin 1.4 H Aspartate Amino Transf (AST/SGOT) 26 Alanine Aminotransferase (ALT/SGPT) 35 Alkaline Phosphatase 162 H Total Protein 5.6 L Albumin 2.3 L Globulin 3.30 H Albumin/Globulin Ratio 0.69 Medications Medications Current Medications Ondansetron HCl (Zofran Inj) 4 mg Q6H PRN IV NAUSEA AND/OR VOMITING; Start 06/09 at 04:30 Dutasteride (Avodart) 0.5 mg AM PO Last administered on 07/14/16t 09:23; Admin Dose 0.5 MG; Start 06/09/16 at 09:00 Finasteride (Proscar) 5 mg AM PO Last administered on 07/14/16 09:23; Admin Dose 5 MG; Start 06/09/16 at 09:00 Levothyroxine Sodium (Synthroid) 50 mcg DAILY@06 PO Last administered on 05:13; Admin Dose 50 MCG; Start 06/09/16 at 06:00 Rifaximin (Xifaxan) 550 mg BID PO Last administered on 07/13/16 10:20; Admin Dose 550 MG; Start 06/11/16 at 14:30; Status Future Hold Eye Lubricant (Artificial Tears Oph) 2 drop QID BOTH EYES Last administered on 07/14/16 21:08; Admin Dose 2 DROP; Start 06/12/16 at 13:00 Hydralazine HCl (Apresoline) 10 mg Q2H PRN IV SBP>170; Start 06/12/16 at 17:00 Acetaminophen (Tylenol Liquid) 650 mg Q4H PRN NGT PAIN AND OR ELEVATED TEMP Last administered on 07/13/16 05:13; Admin Dose 650 MG; Start 06/17/16 at 12:30 Febuxostat (Uloric) 40 mg DAILY PO Last administered on 07/14/16 09:23; Admin Dose 40 MG; Start 06/25/16 at 15:00 Colchicine (Colchicine) 0.6 mg TID PRN PO gout pain Last administered on 05:13; Admin Dose 0.6 MG; Start 06/25/16 at 21:00 Lorazepam (Ativan) 1 mg Q6H PRN IV ANXIETY Last administered on 07/10/16 15:31 ; Admin Dose 1 MG; Start 06/25/16 at 18:30 Metoprolol Tartrate (Lopressor) 5 mg Q4H PRN IV HR>110 Last administered on 15:37; Admin Dose 5 MG; Start 06/28/16 at 16:00 Amiodarone HCl 200 mg 200 mg BID NGT Last administered on 07/14/16 09:29; Admin Dose 200 MG; Start 06/28/16 at 21:00 Potassium Chloride/Dextrose (D5W + KCl 20 Meq) 1,000 ml @ 50 mls/hr Q20H IV Last administered on 07/14/16 23:24; Admin Dose 50 MLS/HR; Start 07/02/16 at 20: 00 IV Flush (NS 10 ml) 10 ml PRN PRN IV IV PROTOCOL; Start 07/02/16 at 19:30 Tamsulosin HCl (Flomax) 0.4 mg HS PO Last administered on 07/14/16 21:08; Admin Dose 0.4 MG; Start 07/03/16 at 21:00 Miscellaneous Information 1 ea NOTE XX ; Start 07/05/16 at 20:00 Glucose (Glutose) 15 gm Q15M PRN PO DECREASED GLUCOSE; Start 07/05/16 at 20:00 Glucose (Glutose) 22.5 gm Q15M PRN PO DECREASED GLUCOSE; Start 07/05/16 at 20: 00 Dextrose (D50w Syringe) 25 ml Q15M PRN IV DECREASED GLUCOSE; Start 07/05/16 at 20:00 Dextrose (D50w Syringe) 50 ml Q15M PRN IV DECREASED GLUCOSE; Start 07/05/16 at 20:00 Glucagon (Glucagen) 1 mg Q15M PRN IM DECREASED GLUCOSE; Start 07/05/16 at 20:00 Glucose (Glutose) 15 gm Q15M PRN BUCCAL DECREASED GLUCOSE; Start 07/05/16 at 20 :00 Morphine Sulfate (morphine) 4 mg Q4H PRN IV PAIN Last administered on 07/15/16 12:08; Admin Dose 4 MG; Start 07/05/16 at 22:00 Metoprolol Tartrate 25 mg 25 mg BID PO Last administered on 07/12/16 11:13; Admin Dose 25 MG; Start 07/06/16 at 09:00 Dopamine HCl/ Dextrose 250 ml @ 7.35 mls/hr TITRATE IV ; Start 07/06/16 at 22: 00; Status Future Hold Prednisone (Prednisone) 20 mg DAILY GTB Last administered on 07/14/16 09:26; Admin Dose 20 MG; Start 07/11/16 at 09:00 Pantoprazole (Protonix Tab) 40 mg BID@06,18 PO Last administered on 07/13/16 17 :32; Admin Dose 40 MG; Start 07/10/16 at 18:00 Furosemide (Lasix) 20 mg DAILY GTB Last administered on 07/13/16 10:21; Admin Dose 20 MG; Start 07/11/16 at 11:00 Metoclopramide HCl (Reglan) 10 mg Q6 IV Last administered on 07/15/16t 05:59; Admin Dose 10 MG; Start 07/14/16 at 12:30; Stop 07/16/16 at 12:29 Lactulose (Enulose) 20 gm Q8H PO ; Start 07/15/16 at 01:00 JENNIFER MORENO Jul 15, 2016 13:24
--- NOTE | 2016-07-15 13:47 | RADRPT ---
PROCEDURE: XR Abdomen. CLINICAL INDICATION: Check gastrostomy tube position. TECHNIQUE: AP supine abdomen x-ray. The image was obtained following injection of 30 ml of Gastrog rafin into the gastrostomy tube. COMPARISON: None. FINDINGS: There is a gastrostomy tube with the tip in the stomach. Contrast is present in the gastrostomy tub e and stomach. Contrast is also present in the left side of the colon from the prior CT scan dated 07/14/2016. The bowel gas pattern is grossly normal. The lower abdomen and pelvis are not included on the image. There are degenerative changes of the spine. IMPRESSION: 1. Gastrostomy tube tip in the stomach. RPTAT: QQ .Emmanuel Murillo MD, MD Date Time Electronically viewed and signed by .Emmanuel Murillo MD, on 07/15/2016 13:46 .R/
--- NOTE | 2016-07-15 14:45 | PN ---
Date/Time of Note Date/Time of Note DATE: 07/15/16 TIME: 14:37 Assessment/Plan VTE Prophylaxis VTE Prophylaxis Intervention: SCD's Lines/Catheters IV [facility] ([facility] PICC Line Central line still needed: Yes Urinary Cath still in place: No Assessment/Plan Assessment/Plan Abdominal pain much improved Gastrostomy tube in placed(no leak) Free air in abdominal cavity + air in the bowel wall (pneumatosis intestinalis) NO CLINICAL EVIDENCE OF ACUTE INTRA-ABDOMINAL PROCESS * 07/13/2016 CT Abdomen with IV/PO contrast 1. Hepatic cirrhosis with extensive moderate ascites throughout the abdomen, and consider ultrasound correlation to exclude masses and heterogenous liver 2. Mild scattered free air greater in the non dependent right abdomen, suggesting perforation of hollow viscus. 3. Mild to moderate pneumatosis intestinalis of the cecum and right colon, and mild pneumatosis intestinalis in the transverse colon. 4 Findings compatible bowel necrosis, with mild portal venous air in the right mesentery. 5 Nonspecific mild small bowel ileus. 6 Bilateral small pleural effusions and atelectasis versus airspace disease, left greater than right * Esophageal variceal bleeding/post EVL/ rebleeding * 06/09/2016 EGD + EVL Actively bleeding esophageal varix post-endoscopic variceal ligation with cessation of bleeding. Large amounts of blood and clots in the stomach but no active bleeding or potential bleeding lesions present. The pylorus appears patent and duodenum with no lesions * 06/28/16 EGD + PEG PEG placement Esophageal ulcers with some old clots in the area, but no active bleeding. Nasogastric tube trauma present. * 07/02/2016 EGD Multiple esophageal ulcers. Post-endoscopic variceal ligation with no active bleeding but positive stigmata of recent bleeding. . Gastrostomy tube in place and in good condition. . No other bleeding site or potential bleeding site identified. * Anemia secondary to above/ Hgb stable * Alcoholic cirrhosis * Post variceal bleeding/post EVL * Portal encephalopathy/ improving * Ascites/Neg U/S * Coagulopathy * Unsafe swallowing/failed swallow eval/high risk for aspiration/Post EGD+PEG * VRE * Shock likely due to sepsis/improved Plan * may resume tube feeding * close monitoring of patient * continue present management Subjective 24 Hr Interval Summary Free Text/Dictation * course reviewed with nurse * patient seen and examined * denies any abdominal pain,no bleeding * no leak at g tube site * 07/15/2016 xray abdomen Gastrostomy tube tip in the stomach. * s/p paracentesis 2.6 liters taken out Exam/Review of Systems Vital Signs Vitals Vital Signs Date Time Temp Pulse Resp B/P Pulse Ox O2 Delivery O2 Flow Rate FiO2 07/15/16 12:12 61 07/15/16 12:02 98.3 18 111/54 96 07/13/16 02:55 21 Intake and Output 07/14/16 07/14/16 07/15/16 15:00 23:00 07:00 Intake Total 850 ml 450 ml Output Total 300 ml Balance 850 ml 150 ml Exam Constitutional: alert Psych: nl mood/affect Neck: supple Respiratory: diminished breath sounds, normal air movement Cardiovascular: nl pulses, regular rate and rhythm Gastrointestinal: ascites, bowel sounds, distended, non-tender, other (g tube in placed no leak), soft, No rebound or guarding, No tender Musculoskeletal: nl extremities to inspection Results Result Diagram: 07/15/16 0616 07/15/16 0616 Results 24 hrs Laboratory Tests Test 07/15/16 06:16 White Blood Count 4.2 #L Red Blood Count 2.78 L Hemoglobin 8.0 L Hematocrit 25.9 L Mean Corpuscular Volume 93.2 Mean Corpuscular Hemoglobin 28.8 L Mean Corpuscular Hemoglobin Concent 30.9 L Red Cell Distribution Width 20.0 H Platelet Count 73 L Mean Platelet Volume 10.9 H Neutrophils % 69.0 Lymphocytes % 17.3 Monocytes % 9.3 Eosinophils % 4.0 Basophils % 0.2 Nucleated Red Blood Cells % 0.0 Neutrophils # 2.9 Lymphocytes # 0.7 L Monocytes # 0.4 Eosinophils # 0.2 Basophils # 0.0 Nucleated Red Blood Cells # 0.0 Prothrombin Time 17.2 H Prothrombin Time Ratio 1.3 INR International Normalized Ratio 1.40 Activated Partial Thromboplast Time 29.7 Sodium Level 132 L Potassium Level 3.7 Chloride Level 100 Carbon Dioxide Level 25 Anion Gap 11 Blood Urea Nitrogen 11 Creatinine 0.71 Glucose Level 80 Calcium Level 7.7 L Magnesium Level 1.7 Total Bilirubin 1.4 H Direct Bilirubin 0.00 Indirect Bilirubin 1.4 H Aspartate Amino Transf (AST/SGOT) 26 Alanine Aminotransferase (ALT/SGPT) 35 Alkaline Phosphatase 162 H Total Protein 5.6 L Albumin 2.3 L Globulin 3.30 H Albumin/Globulin Ratio 0.69 Medications Medications Current Medications Ondansetron HCl (Zofran Inj) 4 mg Q6H PRN IV NAUSEA AND/OR VOMITING; Start 06/09 at 04:30 Dutasteride (Avodart) 0.5 mg AM PO Last administered on 07/14/16 09:23; Admin Dose 0.5 MG; Start 06/09/16 at 09:00 Finasteride (Proscar) 5 mg AM PO Last administered on 07/14/16 09:23; Admin Dose 5 MG; Start 06/09/16 at 09:00 Levothyroxine Sodium (Synthroid) 50 mcg DAILY@06 PO Last administered on 05:13; Admin Dose 50 MCG; Start 06/09/16 at 06:00 Rifaximin (Xifaxan) 550 mg BID PO Last administered on 07/13/16 10:20; Admin Dose 550 MG; Start 06/11/16 at 14:30; Status Future Hold Eye Lubricant (Artificial Tears Oph) 2 drop QID BOTH EYES Last administered on 07/15/16 14:16; Admin Dose 2 DROP; Start 06/12/16 at 13:00 Hydralazine HCl (Apresoline) 10 mg Q2H PRN IV SBP>170; Start 06/12/16 at 17:00 Acetaminophen (Tylenol Liquid) 650 mg Q4H PRN NGT PAIN AND OR ELEVATED TEMP Last administered on 07/13/16 05:13; Admin Dose 650 MG; Start 06/17/16 at 12:30 Febuxostat (Uloric) 40 mg DAILY PO Last administered on 07/14/16 09:23; Admin Dose 40 MG; Start 06/25/16 at 15:00 Colchicine (Colchicine) 0.6 mg TID PRN PO gout pain Last administered on 05:13; Admin Dose 0.6 MG; Start 06/25/16 at 21:00 Lorazepam (Ativan) 1 mg Q6H PRN IV ANXIETY Last administered on 07/10/16 15:31 ; Admin Dose 1 MG; Start 06/25/16 at 18:30 Metoprolol Tartrate (Lopressor) 5 mg Q4H PRN IV HR>110 Last administered on 15:37; Admin Dose 5 MG; Start 06/28/16 at 16:00 Amiodarone HCl 200 mg 200 mg BID NGT Last administered on 07/14/16 09:29; Admin Dose 200 MG; Start 06/28/16 at 21:00 Potassium Chloride/Dextrose (D5W + KCl 20 Meq) 1,000 ml @ 50 mls/hr Q20H IV Last administered on 07/14/16 23:24; Admin Dose 50 MLS/HR; Start 07/02/16 at 20: 00 IV Flush (NS 10 ml) 10 ml PRN PRN IV IV PROTOCOL; Start 07/02/16 at 19:30 Tamsulosin HCl (Flomax) 0.4 mg HS PO Last administered on 07/14/16 21:08; Admin Dose 0.4 MG; Start 07/03/16 at 21:00 Miscellaneous Information 1 ea NOTE XX ; Start 07/05/16 at 20:00 Glucose (Glutose) 15 gm Q15M PRN PO DECREASED GLUCOSE; Start 07/05/16 at 20:00 Glucose (Glutose) 22.5 gm Q15M PRN PO DECREASED GLUCOSE; Start 07/05/16 at 20: 00 Dextrose (D50w Syringe) 25 ml Q15M PRN IV DECREASED GLUCOSE; Start 07/05/16 at 20:00 Dextrose (D50w Syringe) 50 ml Q15M PRN IV DECREASED GLUCOSE; Start 07/05/16 at 20:00 Glucagon (Glucagen) 1 mg Q15M PRN IM DECREASED GLUCOSE; Start 07/05/16 at 20:00 Glucose (Glutose) 15 gm Q15M PRN BUCCAL DECREASED GLUCOSE; Start 07/05/16 at 20 :00 Morphine Sulfate (morphine) 4 mg Q4H PRN IV PAIN Last administered on 07/15/16 12:08; Admin Dose 4 MG; Start 07/05/16 at 22:00 Metoprolol Tartrate 25 mg 25 mg BID PO Last administered on 07/12/16 11:13; Admin Dose 25 MG; Start 07/06/16 at 09:00 Dopamine HCl/ Dextrose 250 ml @ 7.35 mls/hr TITRATE IV ; Start 07/06/16 at 22: 00; Status Future Hold Prednisone (Prednisone) 20 mg DAILY GTB Last administered on 07/14/16 09:26; Admin Dose 20 MG; Start 07/11/16 at 09:00 Pantoprazole (Protonix Tab) 40 mg BID@18 PO Last administered on 07/13/16 17 :32; Admin Dose 40 MG; Start 07/10/16 at 18:00 Furosemide (Lasix) 20 mg DAILY GTB Last administered on 07/13/16 10:21; Admin Dose 20 MG; Start 07/11/16 at 11:00 Metoclopramide HCl (Reglan) 10 mg Q6 IV Last administered on 07/15/16 14:11; Admin Dose 10 MG; Start 07/14/16 at 12:30; Stop 07/16/16 at 12:29 Lactulose (Enulose) 20 gm Q8H PO ; Start 07/15/16 at 01:00 JAC DAVIS MD Jul 15, 2016 14:45
[2016-07-15 14:49] LABS: FLUID APPEARANCE HAZY; FLUID TYPE ASCITES
[2016-07-15 14:50] LABS: FLUID LYMPHOCYTES 41 %; FLUID MONOCYTES 21 %; FLUID NEUTROPHILS 38 %; FLUID WBC'S 664 /cmm
--- NOTE | 2016-07-15 15:40 | PN ---
DATE: 07/15/2016 INFECTIOUS DISEASE PROGRESS NOTE SUBJECTIVE: The patient is alert, feels good, looks good. Denies pain or discomfort. He is orient ed to person, place, self and time. He is status post paracentesis this morning, with 2.6 liters be ing removed, with paracentesis fluid WBC of 664. White blood cell count today 4.2 with neutrophils 69, platelets 73, BUN 11, creatinine 0.71. INDWELLINGS: The patient has a PEG. PHYSICAL EXAMINATION: GENERAL: This is a well-developed, obese, elderly man, who is alert, in no distress. HEENT: Head atraumatic, normocephalic. Sclerae anicteric. Buccal mucosa pink. NECK: Supple. CHEST: Chest rise is symmetrical. Breath sounds clear. HEART: S1, S2. ABDOMEN: Soft, bowel tones present. EXTREMITIES: With bilateral lower extremity edema. ASSESSMENT: 1. Liver cirrhosis with ascites, status post paracentesis. No evidence for SBP, as per cytology. Final cultures pending. 2. Status post urinary tract infection. 3. Status post hepatic encephalopathy. 4. Status post gastrointestinal bleeding. 5. Anemia with thrombocytopenia. 6. Status post PEG. 7. History of familial Mediterranean fever. PLAN: The patient remains stable, overall improving. We will continue observing him off antibiotic s. Await for ascitic fluid cultures. Dictated By: [employer] MA[employer] for [facility] [employer] Conf#: [id number] DID#: [id number]
[2016-07-15] MEDS: TAMSULOSIN (SR) 0.4 MG CAP PO SCH (21:37)
[2016-07-15] MEDS: D5W + KCL 20 MEQ 1,000 ML IV SCH (21:37)
--- NOTE | 2016-07-15 23:32 | CONS ---
Date/Time of Note Date/Time of Note DATE: 07/15/16 TIME: 23:31 Assessment/Plan Assessment/Plan Chief Complaint/Hosp Course Anemia - COMPLEX, MULTIFACTORIAL WITH COMPONENT ACD, ACUTE BLOOD LOSS AND SEVERE IRON DEFICIENCY IN THE PAST * Esophageal variceal bleeding/post EVL * CONT TO MONITOR BLOOD COUNT CLOSELY * OBSERVE FOR BLEEDING AND HEMOLYSIS * PRBC NEEDED Alcoholic cirrhosis * Post variceal bleeding/post EVL * Portal encephalopathy * Ascites * Unsafe swallowing/failed swallow eval/high risk for aspiration * POST EGD plus PEG. * POST paracenteses prior to procedure. 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 Problems: Consultation Date/Type/Reason Admit Date/Time Jun 09, 2016 at 04:01 Initial Consult Date 06/09/16 Type of Consultation: HEMEON Referring Provider: MAURY BENITEZ MD 24 HR Interval Summary Free Text/Dictation denies any abdominal pain,no bleeding no leak at g tube site s/p paracentesis 2.6 liters taken out Exam/Review of Systems Vital Signs Vitals Vital Signs Date Time Temp Pulse Resp B/P Pulse Ox O2 Delivery O2 Flow Rate FiO2 07/15/16 20:32 97.4 52 17 120/64 94 07/13/16 02:55 21 Intake and Output 07/14/16 07/14/16 07/15/16 15:00 23:00 07:00 Intake Total 850 ml 450 ml Output Total 300 ml Balance 850 ml 150 ml Exam Exam Constitutional: alert Psych: nl mood/affect Neck: supple Respiratory: diminished breath sounds, normal air movement Cardiovascular: nl pulses, regular rate and rhythm Gastrointestinal: ascites, bowel sounds, distended, non-tender, other (g tube in placed no leak), soft, No rebound or guarding, No tender Musculoskeletal: nl extremities to inspection Results Result Diagram: 07/15/16 0616 07/15/16 0616 Results 24 hrs Laboratory Tests Test 07/15/16 06:16 07/15/16 11:45 White Blood Count 4.2 #L Red Blood Count 2.78 L Hemoglobin 8.0 L Hematocrit 25.9 L Mean Corpuscular Volume 93.2 Mean Corpuscular Hemoglobin 28.8 L Mean Corpuscular Hemoglobin Concent 30.9 L Red Cell Distribution Width 20.0 H Platelet Count 73 L Mean Platelet Volume 10.9 H Neutrophils % 69.0 Lymphocytes % 17.3 Monocytes % 9.3 Eosinophils % 4.0 Basophils % 0.2 Nucleated Red Blood Cells % 0.0 Neutrophils # 2.9 Lymphocytes # 0.7 L Monocytes # 0.4 Eosinophils # 0.2 Basophils # 0.0 Nucleated Red Blood Cells # 0.0 Prothrombin Time 17.2 H Prothrombin Time Ratio 1.3 INR International Normalized Ratio 1.40 Activated Partial Thromboplast Time 29.7 Sodium Level 132 L Potassium Level 3.7 Chloride Level 100 Carbon Dioxide Level 25 Anion Gap 11 Blood Urea Nitrogen 11 Creatinine 0.71 Glucose Level 80 Calcium Level 7.7 L Magnesium Level 1.7 Total Bilirubin 1.4 H Direct Bilirubin 0.00 Indirect Bilirubin 1.4 H Aspartate Amino Transf (AST/SGOT) 26 Alanine Aminotransferase (ALT/SGPT) 35 Alkaline Phosphatase 162 H Total Protein 5.6 L Albumin 2.3 L Globulin 3.30 H Albumin/Globulin Ratio 0.69 Body Fluid Type ASCITES Body Fluid Volume 1000.0 Body Fluid Color YELLOW Body Fluid Appearance HAZY Body Fluid WBC 664 Body Fluid RBC Body Fluid Neutrophils % 38 Body Fluid Lymphocytes (%) 41 Body Fluid Monocytes % 21 Medications Medications Current Medications Ondansetron HCl (Zofran Inj) 4 mg Q6H PRN IV NAUSEA AND/OR VOMITING; Start 06/09 at 04:30 Dutasteride (Avodart) 0.5 mg AM PO Last administered on 07/14/16 09:23; Admin Dose 0.5 MG; Start 06/09/16 at 09:00 Finasteride (Proscar) 5 mg AM PO Last administered on 07/14/16 09:23; Admin Dose 5 MG; Start 06/09/16 at 09:00 Levothyroxine Sodium (Synthroid) 50 mcg DAILY@06 PO Last administered on 05:13; Admin Dose 50 MCG; Start 06/09/16 at 06:00 Rifaximin (Xifaxan) 550 mg BID PO Last administered on 07/13/16 10:20; Admin Dose 550 MG; Start 06/11/16 at 14:30; Status Future Hold Eye Lubricant (Artificial Tears Oph) 2 drop QID BOTH EYES Last administered on 07/15/16 21:37; Admin Dose 2 DROP; Start 06/12/16 at 13:00 Hydralazine HCl (Apresoline) 10 mg Q2H PRN IV SBP>170; Start 06/12/16 at 17:00 Acetaminophen (Tylenol Liquid) 650 mg Q4H PRN NGT PAIN AND OR ELEVATED TEMP Last administered on 07/13/16 05:13; Admin Dose 650 MG; Start 06/17/16 at 12:30 Febuxostat (Uloric) 40 mg DAILY PO Last administered on 07/14/16 09:23; Admin Dose 40 MG; Start 06/25/16 at 15:00 Colchicine (Colchicine) 0.6 mg TID PRN PO gout pain Last administered on 05:13; Admin Dose 0.6 MG; Start 06/25/16 at 21:00 Lorazepam (Ativan) 1 mg Q6H PRN IV ANXIETY Last administered on 07/10/16 15:31 ; Admin Dose 1 MG; Start 06/25/16 at 18:30 Metoprolol Tartrate (Lopressor) 5 mg Q4H PRN IV HR>110 Last administered on 15:37; Admin Dose 5 MG; Start 06/28/16 at 16:00 Amiodarone HCl 200 mg 200 mg BID NGT Last administered on 07/14/16 09:29; Admin Dose 200 MG; Start 06/28/16 at 21:00 Potassium Chloride/Dextrose (D5W + KCl 20 Meq) 1,000 ml @ 50 mls/hr Q20H IV Last administered on 07/14/16 23:24; Admin Dose 50 MLS/HR; Start 07/02/16 at 20: 00 IV Flush (NS 10 ml) 10 ml PRN PRN IV IV PROTOCOL; Start 07/02/16 at 19:30 Tamsulosin HCl (Flomax) 0.4 mg HS PO Last administered on 07/15/16 21:37; Admin Dose 0.4 MG; Start 07/03/16 at 21:00 Miscellaneous Information 1 ea NOTE XX ; Start 07/05/16 at 20:00 Glucose (Glutose) 15 gm Q15M PRN PO DECREASED GLUCOSE; Start 07/05/16 at 20:00 Glucose (Glutose) 22.5 gm Q15M PRN PO DECREASED GLUCOSE; Start 07/05/16 at 20: 00 Dextrose (D50w Syringe) 25 ml Q15M PRN IV DECREASED GLUCOSE; Start 07/05/16 at 20:00 Dextrose (D50w Syringe) 50 ml Q15M PRN IV DECREASED GLUCOSE; Start 07/05/16 at 20:00 Glucagon (Glucagen) 1 mg Q15M PRN IM DECREASED GLUCOSE; Start 07/05/16 at 20:00 Glucose (Glutose) 15 gm Q15M PRN BUCCAL DECREASED GLUCOSE; Start 07/05/16 at 20 :00 Morphine Sulfate (morphine) 4 mg Q4H PRN IV PAIN Last administered on 07/15/16 12:08; Admin Dose 4 MG; Start 07/05/16 at 22:00 Metoprolol Tartrate 25 mg 25 mg BID PO Last administered on 07/12/16 11:13; Admin Dose 25 MG; Start 07/06/16 at 09:00 Dopamine HCl/ Dextrose 250 ml @ 7.35 mls/hr TITRATE IV ; Start 07/06/16 at 22: 00; Status Future Hold Prednisone (Prednisone) 20 mg DAILY GTB Last administered on 07/14/16 09:26; Admin Dose 20 MG; Start 07/11/16 at 09:00 Pantoprazole (Protonix Tab) 40 mg BID@06,18 PO Last administered on 07/15/16 17 :51; Admin Dose 40 MG; Start 07/10/16 at 18:00 Furosemide (Lasix) 20 mg DAILY GTB Last administered on 07/13/16 10:21; Admin Dose 20 MG; Start 07/11/16 at 11:00 Metoclopramide HCl (Reglan) 10 mg Q6 IV Last administered on 07/15/16 17:51; Admin Dose 10 MG; Start 07/14/16 at 12:30; Stop 07/16/16 at 12:29 Lactulose (Enulose) 20 gm Q8H PO Last administered on 07/15/16 17:51; Admin Dose 20 GM; Start 07/15/16 at 01:00 FAYE RUSHING MD Jul 15, 2016 23:32
[2016-07-16] VITALS (12 sets, daily range): BP systolic 102–134; BP diastolic 52–74; PULSE 60–82; RESP 15–18
[2016-07-16] MEDS: METOCLOPRAMIDE 10 MG INJ IV SCH ×3 (00:25→12:15)
[2016-07-16] MEDS: morphine 4 MG/ML VIAL IV PRN ×4 (00:26→20:53)
[2016-07-16] MEDS: LACTULOSE 30ML CUP PO SCH ×2 (04:58→08:00)
[2016-07-16] MEDS: LEVOTHYROXINE 50 MCG TAB PO SCH (04:58)
[2016-07-16] MEDS: PANTOPRAZOLE (EC) 40 MG TAB PO SCH ×2 (04:58→17:44)
[2016-07-16] MEDS: D5W + KCL 20 MEQ 1,000 ML IV SCH (05:08)
[2016-07-16 07:11] LABS: ADD SCAN DIFF NO
[2016-07-16 07:19] LABS: ABNORMAL IP MESSAGE 1; BASOPHILS % 0.4 % (0.0-2.0); EOSINOPHILS # 0.1 10^3/ul (0.0-0.5); EOSINOPHILS % 2.8 % (0.0-7.0); HEMATOCRIT 28.8 % (42.0-52.0); HEMOGLOBIN 8.9 g/dl (14.0-18.0); LYMPHOCYTES # 0.6 10^3/ul (0.8-2.9); LYMPHOCYTES % 13.5 % (15.0-51.0); MEAN CORPUSCULAR HEMOGLOBIN 28.7 pg (29.0-33.0); MEAN CORPUSCULAR HGB CONC 30.9 g/dl (32.0-37.0); MEAN CORPUSCULAR VOLUME 92.9 fl (82.0-101.0); MEAN PLATELET VOLUME 10.7 fl (7.4-10.4); MONOCYTE # 0.3 10^3/ul (0.3-0.9); NEUTROPHIL # 3.5 10^3/ul (1.6-7.5); NEUTROPHILS % 75.9 % (39.0-77.0); RED CELL DISTRIBUTION WIDTH 20.4 % (11.5-14.5); WHITE BLOOD COUNT 4.6 10^3/ul (4.8-10.8)
[2016-07-16 07:23] LABS: PLATELET COUNT 79 10^3/UL (140-415)
[2016-07-16 07:35] LABS: ALBUMIN 2.4 g/dl (3.3-4.9); ALBUMIN/GLOBULIN RATIO 0.75; BILIRUBIN,INDIRECT 1.6 mg/dl (0-1.1); BILIRUBIN,TOTAL 1.6 mg/dl (0.2-1.3); CALCIUM 7.4 mg/dl (8.4-10.2); CREATININE 0.76 mg/dl (0.61-1.24); POTASSIUM 3.9 mmol/L (3.5-5.1); TOTAL PROTEIN 5.6 g/dl (6.1-8.1)
[2016-07-16 07:39] LABS: INR 1.39; PROTIME 17.1 Sec (12.2-14.2); PT RATIO 1.3
[2016-07-16 07:40] LABS: PARTIAL THROMBOPLASTIN TIME 35.4 Sec (25.0-35.0)
[2016-07-16] MEDS: ARTIFICIAL TEARS 15 ML OPH BOTH EYES SCH ×4 (08:00→21:43)
[2016-07-16] MEDS: DUTASTERIDE 0.5 MG CAP PO SCH (08:00)
[2016-07-16] MEDS: FEBUXOSTAT 40 MG TABLET PO SCH (08:00)
[2016-07-16] MEDS: predniSONE 20 MG TAB GTB SCH (08:00)
[2016-07-16] MEDS: FINASTERIDE 5 MG TAB PO SCH (08:01)
[2016-07-16] MEDS: FUROSEMIDE 20 MG TAB GTB SCH (08:01)
[2016-07-16] MEDS: AMIODARONE 200 MG TAB NGT SCH ×2 (08:01→21:43)
[2016-07-16] MEDS: METOPROLOL 25 MG TAB PO SCH ×2 (08:02→21:00)
--- NOTE | 2016-07-16 11:24 | PN ---
Date/Time of Note Date/Time of Note DATE: 07/16/16 TIME: 11:23 Assessment/Plan VTE Prophylaxis VTE Prophylaxis Intervention: other Lines/Catheters IV Catheter Type (from Nrs): PICC Line Central line still needed: Yes Urinary Cath still in place: No Assessment/Plan Assessment/Plan duplicate note Exam/Review of Systems Vital Signs Vitals Vital Signs Date Time Temp Pulse Resp B/P Pulse Ox O2 Delivery O2 Flow Rate FiO2 07/16/16 11:21 98.0 65 18 119/71 98 07/13/16 02:55 21 Intake and Output 07/15/16 07/15/16 07/16/16 15:00 23:00 07:00 Intake Total 570 ml Output Total 525 ml 2600 ml Balance -525 ml -2030 ml Results Result Diagram: 07/16/16 0602 07/16/16 0602 Results 24 hrs Laboratory Tests Test 07/15/16 11:45 07/16/16 06:02 Body Fluid Type ASCITES Body Fluid Volume 1000.0 Body Fluid Color YELLOW Body Fluid Appearance HAZY Body Fluid WBC 664 Body Fluid RBC Body Fluid Neutrophils % 38 Body Fluid Lymphocytes (%) 41 Body Fluid Monocytes % 21 White Blood Count 4.6 L Red Blood Count 3.10 L Hemoglobin 8.9 L Hematocrit 28.8 L Mean Corpuscular Volume 92.9 Mean Corpuscular Hemoglobin 28.7 L Mean Corpuscular Hemoglobin Concent 30.9 L Red Cell Distribution Width 20.4 H Platelet Count 79 L Mean Platelet Volume 10.7 H Neutrophils % 75.9 Lymphocytes % 13.5 L Monocytes % 7.0 Eosinophils % 2.8 Basophils % 0.4 Nucleated Red Blood Cells % 0.0 Neutrophils # 3.5 Lymphocytes # 0.6 L Monocytes # 0.3 Eosinophils # 0.1 Basophils # 0.0 Nucleated Red Blood Cells # 0.0 Prothrombin Time 17.1 H Prothrombin Time Ratio 1.3 INR International Normalized Ratio 1.39 Activated Partial Thromboplast Time 35.4 H Sodium Level 130 L Potassium Level 3.9 Chloride Level 102 Carbon Dioxide Level 25 Anion Gap 7 L Blood Urea Nitrogen 9 Creatinine 0.76 Glucose Level 84 Calcium Level 7.4 L Total Bilirubin 1.6 H Direct Bilirubin 0.00 Indirect Bilirubin 1.6 H Aspartate Amino Transf (AST/SGOT) 30 Alanine Aminotransferase (ALT/SGPT) 32 Alkaline Phosphatase 170 H Total Protein 5.6 L Albumin 2.4 L Globulin 3.20 Albumin/Globulin Ratio 0.75 Medications Medications Current Medications Ondansetron HCl (Zofran Inj) 4 mg Q6H PRN IV NAUSEA AND/OR VOMITING; Start 06/09 at 04:30 Dutasteride (Avodart) 0.5 mg AM PO Last administered on 07/16/16 08:00; Admin Dose 0.5 MG; Start 06/09/16 at 09:00 Finasteride (Proscar) 5 mg AM PO Last administered on 07/16/16 08:01; Admin Dose 5 MG; Start 06/09/16 at 09:00 Levothyroxine Sodium (Synthroid) 50 mcg DAILY@06 PO Last administered on 04:58; Admin Dose 50 MCG; Start 06/09/16 at 06:00 Rifaximin (Xifaxan) 550 mg BID PO Last administered on 07/13/16 10:20; Admin Dose 550 MG; Start 06/11/16 at 14:30; Status Future Hold Eye Lubricant (Artificial Tears Oph) 2 drop QID BOTH EYES Last administered on 07/16/16 08:00; Admin Dose 2 DROP; Start 06/12/16 at 13:00 Hydralazine HCl (Apresoline) 10 mg Q2H PRN IV SBP>170; Start 06/12/16 at 17:00 Acetaminophen (Tylenol Liquid) 650 mg Q4H PRN NGT PAIN AND OR ELEVATED TEMP Last administered on 07/13/16 05:13; Admin Dose 650 MG; Start 06/17/16 at 12:30 Febuxostat (Uloric) 40 mg DAILY PO Last administered on 07/16/16 08:00; Admin Dose 40 MG; Start 06/25/16 at 15:00 Colchicine (Colchicine) 0.6 mg TID PRN PO gout pain Last administered on 05:13; Admin Dose 0.6 MG; Start 06/25/16 at 21:00 Lorazepam (Ativan) 1 mg Q6H PRN IV ANXIETY Last administered on 07/10/16 15:31 ; Admin Dose 1 MG; Start 06/25/16 at 18:30 Metoprolol Tartrate (Lopressor) 5 mg Q4H PRN IV HR>110 Last administered on 15:37; Admin Dose 5 MG; Start 06/28/16 at 16:00 Amiodarone HCl 200 mg 200 mg BID NGT Last administered on 07/16/16 08:01; Admin Dose 200 MG; Start 06/28/16 at 21:00 Potassium Chloride/Dextrose (D5W + KCl 20 Meq) 1,000 ml @ 50 mls/hr Q20H IV Last administered on 07/16/16 05:08; Admin Dose 50 MLS/HR; Start 07/02/16 at 20: 00 IV Flush (NS 10 ml) 10 ml PRN PRN IV IV PROTOCOL; Start 07/02/16 at 19:30 Tamsulosin HCl (Flomax) 0.4 mg HS PO Last administered on 07/15/16 21:37; Admin Dose 0.4 MG; Start 07/03/16 at 21:00 Miscellaneous Information 1 ea NOTE XX ; Start 07/05/16 at 20:00 Glucose (Glutose) 15 gm Q15M PRN PO DECREASED GLUCOSE; Start 07/05/16 at 20:00 Glucose (Glutose) 22.5 gm Q15M PRN PO DECREASED GLUCOSE; Start 07/05/16 at 20: 00 Dextrose (D50w Syringe) 25 ml Q15M PRN IV DECREASED GLUCOSE; Start 07/05/16 at 20:00 Dextrose (D50w Syringe) 50 ml Q15M PRN IV DECREASED GLUCOSE; Start 07/05/16 at 20:00 Glucagon (Glucagen) 1 mg Q15M PRN IM DECREASED GLUCOSE; Start 07/05/16 at 20:00 Glucose (Glutose) 15 gm Q15M PRN BUCCAL DECREASED GLUCOSE; Start 07/05/16 at 20 :00 Morphine Sulfate (morphine) 4 mg Q4H PRN IV PAIN Last administered on 07/16/16 04:58; Admin Dose 4 MG; Start 07/05/16 at 22:00 Metoprolol Tartrate 25 mg 25 mg BID PO Last administered on 07/16/16 08:02; Admin Dose 25 MG; Start 07/06/16 at 09:00 Dopamine HCl/ Dextrose 250 ml @ 7.35 mls/hr TITRATE IV ; Start 07/06/16 at 22: 00; Status Future Hold Prednisone (Prednisone) 20 mg DAILY GTB Last administered on 07/16/16 08:00; Admin Dose 20 MG; Start 07/11/16 at 09:00 Pantoprazole (Protonix Tab) 40 mg BID@06,18 PO Last administered on 07/16/16 04 :58; Admin Dose 40 MG; Start 07/10/16 at 18:00 Furosemide (Lasix) 20 mg DAILY GTB Last administered on 07/16/16 08:01; Admin Dose 20 MG; Start 07/11/16 at 11:00 Metoclopramide HCl (Reglan) 10 mg Q6 IV Last administered on 07/16/16 04:58; Admin Dose 10 MG; Start 07/14/16 at 12:30; Stop 07/16/16 at 12:29 Lactulose (Enulose) 20 gm Q8H PO Last administered on 07/16/16 08:00; Admin Dose 20 GM; Start 07/15/16 at 01:00 JENNIFER MORENO Jul 16, 2016 11:24 Admin Dose 200 MG; Start 06/28/16 at 21:00 Potassium Chloride/Dextrose (D5W + KCl 20 Meq) 1,000 ml @ 50 mls/hr Q20H IV Last administered on 07/16/16 05:08; Admin Dose 50 MLS/HR; Start 07/02/16 at 20: 00 IV Flush (NS 10 ml) 10 ml PRN PRN IV IV PROTOCOL; Start 07/02/16 at 19:30 Tamsulosin HCl (Flomax) 0.4 mg HS PO Last administered on 07/15/16 21:37; Admin Dose 0.4 MG; Start 07/03/16 at 21:00 Miscellaneous Information 1 ea NOTE XX ; Start 07/05/16 at 20:00 Glucose (Glutose) 15 gm Q15M PRN PO DECREASED GLUCOSE; Start 07/05/16 at 20:00 Glucose (Glutose) 22.5 gm Q15M PRN PO DECREASED GLUCOSE; Start 07/05/16 at 20: 00 Dextrose (D50w Syringe) 25 ml Q15M PRN IV DECREASED GLUCOSE; Start 07/05/16 at 20:00 Dextrose (D50w Syringe) 50 ml Q15M PRN IV DECREASED GLUCOSE; Start 07/05/16 at 20:00 Glucagon (Glucagen) 1 mg Q15M PRN IM DECREASED GLUCOSE; Start 07/05/16 at 20:00 Glucose (Glutose) 15 gm Q15M PRN BUCCAL DECREASED GLUCOSE; Start 07/05/16 at 20 :00 Morphine Sulfate (morphine) 4 mg Q4H PRN IV PAIN Last administered on 07/16/16 04:58; Admin Dose 4 MG; Start 07/05/16 at 22:00 Metoprolol Tartrate 25 mg 25 mg BID PO Last administered on 07/16/16 08:02; Admin Dose 25 MG; Start 07/06/16 at 09:00 Dopamine HCl/ Dextrose 250 ml @ 7.35 mls/hr TITRATE IV ; Start 07/06/16 at 22: 00; Status Future Hold Prednisone (Prednisone) 20 mg DAILY GTB Last administered on 07/16/16 08:00; Admin Dose 20 MG; Start 07/11/16 at 09:00 Pantoprazole (Protonix Tab) 40 mg BID@06,18 PO Last administered on 07/16/16 04 :58; Admin Dose 40 MG; Start 07/10/16 at 18:00 Furosemide (Lasix) 20 mg DAILY GTB Last administered on 07/16/16 08:01; Admin Dose 20 MG; Start 07/11/16 at 11:00 Metoclopramide HCl (Reglan) 10 mg Q6 IV Last administered on 07/16/16 04:58; Admin Dose 10 MG; Start 07/14/16 at 12:30; Stop 07/16/16 at 12:29 Lactulose (Enulose) 20 gm Q8H PO Last administered on 07/16/16 08:00; Admin Dose 20 GM; Start 07/15/16 at 01:00 JENNIFER MORENO Jul 16, 2016 11:24
--- NOTE | 2016-07-16 13:46 | CONS ---
Date/Time of Note Date/Time of Note DATE: 07/16/16 TIME: 13:22 Assessment/Plan Assessment/Plan Additional Assessment/Plan Acute Anemia Esophageal variceal bleeding/post EVL/ rebleeding * 06/09/2016 EGD + EVL :Actively bleeding esophageal varix post-endoscopic variceal ligation with cessation of bleeding. Large amounts of blood and clots in the stomach but no active bleeding or potential bleeding lesions present. The pylorus appears patent and duodenum with no lesions * 07/02/2016 EGD: Multiple esophageal ulcers. Post-endoscopic variceal ligation with no active bleeding but positive stigmata of recent bleeding. Gastrostomy tube in place and in good condition. No other bleeding site or potential bleeding site identified. Abdominal pain 07/13/2016 CT Abdomen with IV/PO contrast: 1. Hepatic cirrhosis with extensive moderate ascites throughout the abdomen, and consider ultrasound correlation to exclude masses and heterogenous liver 2. Mild scattered free air greater in the non dependent right abdomen, suggesting perforation of hollow viscus. 3. Mild to moderate pneumatosis intestinalis of the cecum and right colon, and mild pneumatosis intestinalis in the transverse colon. 4 Findings compatible bowel necrosis, with mild portal venous air in the right mesentery. 5. Nonspecific mild small bowel ileus. Surgical consult in process Dysphagia Gastrostomy tube in placed(no leak) 06/28/16 EGD + PEG: Esophageal ulcers with some old clots in the area, but no active bleeding. Nasogastric tube trauma present. Alcoholic cirrhosis Post variceal bleeding/post EVL Portal encephalopathy/ improving Ascites Coagulopathy Further recommendations depend on clinical course Pt seen in collaboration with Dr. Arce Consultation Date/Type/Reason Admit Date/Time Jun 09, 2016 at 04:01 Initial Consult Date 06/09/16 Type of Consultation: GI Referring Provider: MAURY BENITEZ MD 24 HR Interval Summary Free Text/Dictation Hgb stable Tube feed held Per bedside nurse passed swallow evaluation Will continue to have tube feed clamped Per son, reports of leak from G tube G tube intact and dressing dry, no signs of leak with inspection Exam/Review of Systems Vital Signs Vitals Vital Signs Date Time Temp Pulse Resp B/P Pulse Ox O2 Delivery O2 Flow Rate FiO2 07/16/16 12:40 60 07/16/16 11:21 98.0 18 119/71 98 07/13/16 02:55 21 Intake and Output 4/6/17 4/6/17 4/7/17 15:00 23:00 07:00 Intake Total 570 ml Output Total 525 ml 2600 ml Balance -525 ml -2030 ml Exam Constitutional: alert, oriented, well developed Psych: nl mood/affect Head: normocephalic Eyes: EOMI, nl conjunctiva, nl lids ENMT: nl external ears & nose, nl lips & teeth, nl nasal mucosa & septum Respiratory: clear to auscultation, normal air movement Cardiovascular: regular rate and rhythm Gastrointestinal: soft, RUQ/periumbilical tenderness Musculoskeletal: nl extremities to inspection Neurological: PARTS INTERPRETER II-XII intact Results Result Diagram: 07/16/16 0602 07/16/16 0602 Results 24 hrs Laboratory Tests Test 07/16/16 06:02 White Blood Count 4.6 L Red Blood Count 3.10 L Hemoglobin 8.9 L Hematocrit 28.8 L Mean Corpuscular Volume 92.9 Mean Corpuscular Hemoglobin 28.7 L Mean Corpuscular Hemoglobin Concent 30.9 L Red Cell Distribution Width 20.4 H Platelet Count 79 L Mean Platelet Volume 10.7 H Neutrophils % 75.9 Lymphocytes % 13.5 L Monocytes % 7.0 Eosinophils % 2.8 Basophils % 0.4 Nucleated Red Blood Cells % 0.0 Neutrophils # 3.5 Lymphocytes # 0.6 L Monocytes # 0.3 Eosinophils # 0.1 Basophils # 0.0 Nucleated Red Blood Cells # 0.0 Prothrombin Time 17.1 H Prothrombin Time Ratio 1.3 INR International Normalized Ratio 1.39 Activated Partial Thromboplast Time 35.4 H Sodium Level 130 L Potassium Level 3.9 Chloride Level 102 Carbon Dioxide Level 25 Anion Gap 7 L Blood Urea Nitrogen 9 Creatinine 0.76 Glucose Level 84 Calcium Level 7.4 L Total Bilirubin 1.6 H Direct Bilirubin 0.00 Indirect Bilirubin 1.6 H Aspartate Amino Transf (AST/SGOT) 30 Alanine Aminotransferase (ALT/SGPT) 32 Alkaline Phosphatase 170 H Total Protein 5.6 L Albumin 2.4 L Globulin 3.20 Albumin/Globulin Ratio 0.75 Medications Medications Current Medications Ondansetron HCl (Zofran Inj) 4 mg Q6H PRN IV NAUSEA AND/OR VOMITING; Start 06/09 at 04:30 Dutasteride (Avodart) 0.5 mg AM PO Last administered on 07/16/16 08:00; Admin Dose 0.5 MG; Start 06/09/16 at 09:00 Finasteride (Proscar) 5 mg AM PO Last administered on 07/16/16 08:01; Admin Dose 5 MG; Start 06/09/16 at 09:00 Levothyroxine Sodium (Synthroid) 50 mcg DAILY@06 PO Last administered on 04:58; Admin Dose 50 MCG; Start 06/09/16 at 06:00 Rifaximin (Xifaxan) 550 mg BID PO Last administered on 07/13/16 10:20; Admin Dose 550 MG; Start 06/11/16 at 14:30; Status Future Hold Eye Lubricant (Artificial Tears Oph) 2 drop QID BOTH EYES Last administered on 07/16/16 12:15; Admin Dose 2 DROP; Start 06/12/16 at 13:00 Hydralazine HCl (Apresoline) 10 mg Q2H PRN IV SBP>170; Start 06/12/16 at 17:00 Acetaminophen (Tylenol Liquid) 650 mg Q4H PRN NGT PAIN AND OR ELEVATED TEMP Last administered on 07/13/16 05:13; Admin Dose 650 MG; Start 06/17/16 at 12:30 Febuxostat (Uloric) 40 mg DAILY PO Last administered on 07/16/16 08:00; Admin Dose 40 MG; Start 06/25/16 at 15:00 Colchicine (Colchicine) 0.6 mg TID PRN PO gout pain Last administered on 05:13; Admin Dose 0.6 MG; Start 06/25/16 at 21:00 Lorazepam (Ativan) 1 mg Q6H PRN IV ANXIETY Last administered on 07/10/16 15:31 ; Admin Dose 1 MG; Start 06/25/16 at 18:30 Metoprolol Tartrate (Lopressor) 5 mg Q4H PRN IV HR>110 Last administered on 15:37; Admin Dose 5 MG; Start 06/28/16 at 16:00 Amiodarone HCl 200 mg 200 mg BID NGT Last administered on 07/16/16 08:01; Admin Dose 200 MG; Start 06/28/16 at 21:00 Potassium Chloride/Dextrose (D5W + KCl 20 Meq) 1,000 ml @ 50 mls/hr Q20H IV Last administered on 07/16/16 05:08; Admin Dose 50 MLS/HR; Start 07/02/16 at 20: 00 IV Flush (NS 10 ml) 10 ml PRN PRN IV IV PROTOCOL; Start 07/02/16 at 19:30 Tamsulosin HCl (Flomax) 0.4 mg HS PO Last administered on 07/15/16 21:37; Admin Dose 0.4 MG; Start 07/03/16 at 21:00 Miscellaneous Information 1 ea NOTE XX ; Start 07/05/16 at 20:00 Glucose (Glutose) 15 gm Q15M PRN PO DECREASED GLUCOSE; Start 07/05/16 at 20:00 Glucose (Glutose) 22.5 gm Q15M PRN PO DECREASED GLUCOSE; Start 07/05/16 at 20: 00 Dextrose (D50w Syringe) 25 ml Q15M PRN IV DECREASED GLUCOSE; Start 07/05/16 at 20:00 Dextrose (D50w Syringe) 50 ml Q15M PRN IV DECREASED GLUCOSE; Start 07/05/16 at 20:00 Glucagon (Glucagen) 1 mg Q15M PRN IM DECREASED GLUCOSE; Start 07/05/16 at 20:00 Glucose (Glutose) 15 gm Q15M PRN BUCCAL DECREASED GLUCOSE; Start 07/05/16 at 20 :00 Morphine Sulfate (morphine) 4 mg Q4H PRN IV PAIN Last administered on 07/16/16 04:58; Admin Dose 4 MG; Start 07/05/16 at 22:00 Metoprolol Tartrate 25 mg 25 mg BID PO Last administered on 07/16/16 08:02; Admin Dose 25 MG; Start 07/06/16 at 09:00 Dopamine HCl/ Dextrose 250 ml @ 7.35 mls/hr TITRATE IV ; Start 07/06/16 at 22: 00; Status Future Hold Prednisone (Prednisone) 20 mg DAILY GTB Last administered on 07/16/16 08:00; Admin Dose 20 MG; Start 07/11/16 at 09:00 Pantoprazole (Protonix Tab) 40 mg BID@06,18 PO Last administered on 07/16/16 04 :58; Admin Dose 40 MG; Start 07/10/16 at 18:00 Furosemide (Lasix) 20 mg DAILY GTB Last administered on 07/16/16t 08:01; Admin Dose 20 MG; Start 07/11/16 at 11:00 Lactulose (Enulose) 20 gm DAILY PO ; Start 07/17/16 at 09:00 KODY SHELDON Jul 16, 2016 13:32
--- NOTE | 2016-07-16 14:08 | CONS ---
Date/Time of Note Date/Time of Note DATE: 07/16/16 TIME: 14:06 Assessment/Plan Assessment/Plan Chief Complaint/Hosp Course IMPRESSION: 1. Paroxysmal atrial fibrillation/atrial flutter-now SR on PO amio 2. Abnormal electrocardiogram. 3. Hypotension, now improved.-tolerating low dose BB 4. Gastrointestinal bleed.-s/p EGD with esophageal ulcers/varices s/p banding with ongoing GIB at this time 5. Cirhosis s/p banding of varices 6. Encephalopathy-ongoing 7. Anemia-worsening 8. Hypernatremia 9. Coagulopathy 10.Fever 11.PNA 12.ARF-improved 14.Hypotension-improved off pressors/stable 15.Air in wall of colon-? ischemic bowel Recc: -Tele -Continue amiodarone/BB when patient PO as patient able to take -No asa/systemic anti-coag secondary to anemia/GIB -Follow MS closely -Follow Hgb closely -F/U cx data and continue abx's -Continue protonix/lactulose -Ongoing surgical eval of pneumatosis Problems: Consultation Date/Type/Reason Admit Date/Time Jun 09, 2016 at 04:01 Initial Consult Date 06/09/16 Type of Consultation: Cardiology Reason for Consultation PAF/AFL Referring Provider: MAURY BENITEZ MD Exam/Review of Systems Vital Signs Vitals Vital Signs Date Time Temp Pulse Resp B/P Pulse Ox O2 Delivery O2 Flow Rate FiO2 07/16/16 12:40 60 07/16/16 11:21 98.0 18 119/71 98 07/13/16 02:55 21 Intake and Output 07/15/16 07/15/16 07/16/16 15:00 23:00 07:00 Intake Total 570 ml Output Total 525 ml 2600 ml Balance -525 ml -2030 ml Exam Review of Systems: CONSTITUTIONAL: No fevers, chills. PULMONARY: No sob CARDIOVASCULAR: No chest pain/palpitations GASTROINTESTINAL: No nausea/vomiting. GENITOURINARY: No hematuria/dysuria. MUSCULOSKELETAL: No myagias/arthalgias. PSYCHIATRIC: The patient denies depression. NEUROLOGIC: No weakness Constitutional: alert, oriented Head: normocephalic ENMT: mucosa pink and moist Neck: jvd (9 cm water), supple Respiratory: diminished breath sounds (at bases/B) Cardiovascular: regular rate and rhythm Gastrointestinal: non-tender, soft Musculoskeletal: muscle tone (normal) Extremities: edema (trace/B) Neurological: lethargic Results Result Diagram: 07/16/1660107/16/16601 Results 24 hrs Laboratory Tests Test 07/16/16 06:02 White Blood Count 4.6 L Red Blood Count 3.10 L Hemoglobin 8.9 L Hematocrit 28.8 L Mean Corpuscular Volume 92.9 Mean Corpuscular Hemoglobin 28.7 L Mean Corpuscular Hemoglobin Concent 30.9 L Red Cell Distribution Width 20.4 H Platelet Count 79 L Mean Platelet Volume 10.7 H Neutrophils % 75.9 Lymphocytes % 13.5 L Monocytes % 7.0 Eosinophils % 2.8 Basophils % 0.4 Nucleated Red Blood Cells % 0.0 Neutrophils # 3.5 Lymphocytes # 0.6 L Monocytes # 0.3 Eosinophils # 0.1 Basophils # 0.0 Nucleated Red Blood Cells # 0.0 Prothrombin Time 17.1 H Prothrombin Time Ratio 1.3 INR International Normalized Ratio 1.39 Activated Partial Thromboplast Time 35.4 H Sodium Level 130 L Potassium Level 3.9 Chloride Level 102 Carbon Dioxide Level 25 Anion Gap 7 L Blood Urea Nitrogen 9 Creatinine 0.76 Glucose Level 84 Calcium Level 7.4 L Total Bilirubin 1.6 H Direct Bilirubin 0.00 Indirect Bilirubin 1.6 H Aspartate Amino Transf (AST/SGOT) 30 Alanine Aminotransferase (ALT/SGPT) 32 Alkaline Phosphatase 170 H Total Protein 5.6 L Albumin 2.4 L Globulin 3.20 Albumin/Globulin Ratio 0.75 Medications Medications Current Medications Ondansetron HCl (Zofran Inj) 4 mg Q6H PRN IV NAUSEA AND/OR VOMITING; Start 06/09 at 04:30 Dutasteride (Avodart) 0.5 mg AM PO Last administered on 07/16/16 08:00; Admin Dose 0.5 MG; Start 06/09/16 at 09:00 Finasteride (Proscar) 5 mg AM PO Last administered on 07/16/16 08:01; Admin Dose 5 MG; Start 06/09/16 at 09:00 Levothyroxine Sodium (Synthroid) 50 mcg DAILY@06 PO Last administered on 04:58; Admin Dose 50 MCG; Start 06/09/16 at 06:00 Rifaximin (Xifaxan) 550 mg BID PO Last administered on 07/13/16 10:20; Admin Dose 550 MG; Start 06/11/16 at 14:30; Status Future Hold Eye Lubricant (Artificial Tears Oph) 2 drop QID BOTH EYES Last administered on 07/16/16 12:15; Admin Dose 2 DROP; Start 06/12/16 at 13:00 Hydralazine HCl (Apresoline) 10 mg Q2H PRN IV SBP>170; Start 06/12/16 at 17:00 Acetaminophen (Tylenol Liquid) 650 mg Q4H PRN NGT PAIN AND OR ELEVATED TEMP Last administered on 07/13/16 05:13; Admin Dose 650 MG; Start 06/17/16 at 12:30 Febuxostat (Uloric) 40 mg DAILY PO Last administered on 07/16/16 08:00; Admin Dose 40 MG; Start 06/25/16 at 15:00 Colchicine (Colchicine) 0.6 mg TID PRN PO gout pain Last administered on 05:13; Admin Dose 0.6 MG; Start 06/25/16 at 21:00 Lorazepam (Ativan) 1 mg Q6H PRN IV ANXIETY Last administered on 07/10/16 15:31 ; Admin Dose 1 MG; Start 06/25/16 at 18:30 Metoprolol Tartrate (Lopressor) 5 mg Q4H PRN IV HR>110 Last administered on 15:37; Admin Dose 5 MG; Start 06/28/16 at 16:00 Amiodarone HCl 200 mg 200 mg BID NGT Last administered on 07/16/16 08:01; Admin Dose 200 MG; Start 06/28/16 at 21:00 Potassium Chloride/Dextrose (D5W + KCl 20 Meq) 1,000 ml @ 50 mls/hr Q20H IV Last administered on 07/16/16 05:08; Admin Dose 50 MLS/HR; Start 07/02/16 at 20: 00 IV Flush (NS 10 ml) 10 ml PRN PRN IV IV PROTOCOL; Start 07/02/16 at 19:30 Tamsulosin HCl (Flomax) 0.4 mg HS PO Last administered on 07/15/16 21:37; Admin Dose 0.4 MG; Start 07/03/16 at 21:00 Miscellaneous Information 1 ea NOTE XX ; Start 07/05/16 at 20:00 Glucose (Glutose) 15 gm Q15M PRN PO DECREASED GLUCOSE; Start 07/05/16 at 20:00 Glucose (Glutose) 22.5 gm Q15M PRN PO DECREASED GLUCOSE; Start 07/05/16 at 20: 00 Dextrose (D50w Syringe) 25 ml Q15M PRN IV DECREASED GLUCOSE; Start 07/05/16 at 20:00 Dextrose (D50w Syringe) 50 ml Q15M PRN IV DECREASED GLUCOSE; Start 07/05/16 at 20:00 Glucagon (Glucagen) 1 mg Q15M PRN IM DECREASED GLUCOSE; Start 07/05/16 at 20:00 Glucose (Glutose) 15 gm Q15M PRN BUCCAL DECREASED GLUCOSE; Start 07/05/16 at 20 :00 Morphine Sulfate (morphine) 4 mg Q4H PRN IV PAIN Last administered on 07/16/16 04:58; Admin Dose 4 MG; Start 07/05/16 at 22:00 Metoprolol Tartrate 25 mg 25 mg BID PO Last administered on 07/16/16 08:02; Admin Dose 25 MG; Start 07/06/16 at 09:00 Dopamine HCl/ Dextrose 250 ml @ 7.35 mls/hr TITRATE IV ; Start 07/06/16 at 22: 00; Status Future Hold Prednisone (Prednisone) 20 mg DAILY GTB Last administered on 07/16/16 08:00; Admin Dose 20 MG; Start 07/11/16 at 09:00 Pantoprazole (Protonix Tab) 40 mg BID@06,18 PO Last administered on 07/16/16 04 :58; Admin Dose 40 MG; Start 07/10/16 at 18:00 Furosemide (Lasix) 20 mg DAILY GTB Last administered on 07/16/16 08:01; Admin Dose 20 MG; Start 07/11/16 at 11:00 Lactulose (Enulose) 20 gm DAILY PO ; Start 07/17/16 at 09:00 ANGELES ODONNELL Jul 16, 2016 14:08
--- NOTE | 2016-07-16 15:39 | PN ---
Date/Time of Note Date/Time of Note DATE: 07/15/16 TIME: 21:37 Assessment/Plan Lines/Catheters IV Catheter Type (from [facility]): PICC Line Crandall in Place (from [facility]): No Assessment/Plan Chief Complaint/Hosp Course 1. Free air with neumatosis of portion of colon; however, completely hemodynamically at this point stable without pain, without leukocytosis, left shift, or acidosis. Discussed with multiple family members and medical team members. Doubt ischemic process at this point (?benign pneumatosis). -antibiotics -judicious fluids -close monitoring -if worsened, will proceed with surgical exploration despite aggie risk 2. Alcoholic and fatty liver and possible hepatitis, decompensated cirrhosis. Continue GI and medical optimization. Encourage maintenance of cessation of alcohol use. Encourage dietary and lifestyle optimization. 3. Upper gastrointestinal bleed secondary to esophageal varices secondary to cirrhosis. Transfuse as needed. Continue close monitoring and treatment per GI. 4. Anemia. Secondary to above. As above. 5. Hypertension. Continue dietary and medication optimization. 6. Hypothyroidism. Continue medical management. 7. Funguria with stool VRE with pneumonia, with sepsis. Continue antibiotics and antifungal, supportive measures, and close monitoring. 8. Hypoalbuminemia, is multifactorial. Will benefit from nutritional optimization. Thank you Late entry 07/15 Problems: Subjective 24 Hr Interval Summary No n/v. No f/c. No cough. No sz. No bleeding per mouth or rectum. No hickey/ dizzy/visual or neuro changes. No pyuria. Feels better overall. Min pain. Exam/Review of Systems Vital Signs Vitals Vital Signs Date Time Temp Pulse Resp B/P Pulse Ox O2 Delivery O2 Flow Rate FiO2 07/16/16 15:30 98.0 67 18 102/52 98 07/13/16 02:55 21 Intake and Output 07/15/16 07/15/16 07/16/16 15:00 23:00 07:00 Intake Total 570 ml Output Total 525 ml 2600 ml Balance -525 ml -2030 ml Exam Free Text/Dictation GENERAL: No acute distress, slightly uncomfortable, but responsive and appropriate. HEENT: Pupils equal, reactive. No scleral icterus. Mucous membranes somewhat dry. NECK: Supple, no JVD. PULMONARY: Normal respiratory effort. No wheezing. HEART: S1, S2 present. ABDOMEN: Soft, distended, no rebound, no guarding. Right lower quadrant with a hernia that is slightly tender. Not rigid. PEG in place. EXTREMITIES: With minimal edema. VASCULAR: Cap refill is 2 seconds. NEUROLOGIC: Alert, oriented, moves all 4 extremities grossly; however weak. LYMPHATICS: No palpable inguinal, cervical lymph nodes. Results Result Diagram: 07/16/16 0602 07/16/16 0602 LORENE KAT MD Jul 16, 2016 15:39
--- NOTE | 2016-07-16 15:39 | PN ---
Date/Time of Note Date/Time of Note DATE: 07/16/16 TIME: 15:39 Assessment/Plan Lines/Catheters IV C[facility]ter Type (from [facility]): PICC Line Crandall in Place (from [facility]): No Assessment/Plan Chief Complaint/Hosp Course 1. Free air with neumatosis of portion of colon; however, completely hemodynamically at this point stable without pain, without leukocytosis, left shift, or acidosis. Discussed with multiple family members and medical team members. Doubt ischemic process at this point (?benign pneumatosis). s/p removal of 2.6L of serous fluid by paracentesis on 07/15. -antibiotics -judicious fluids -close monitoring -if worsened, will proceed with surgical exploration despite aggie risk 2. Alcoholic and fatty liver and possible hepatitis, decompensated cirrhosis. Continue GI and medical optimization. Encourage maintenance of cessation of alcohol use. Encourage dietary and lifestyle optimization. 3. Upper gastrointestinal bleed secondary to esophageal varices secondary to cirrhosis. Transfuse as needed. Continue close monitoring and treatment per GI. 4. Anemia. Secondary to above. As above. 5. Hypertension. Continue dietary and medication optimization. 6. Hypothyroidism. Continue medical management. 7. Funguria with stool VRE with pneumonia, with sepsis. Continue antibiotics and antifungal, supportive measures, and close monitoring. 8. Hypoalbuminemia, is multifactorial. Will benefit from nutritional optimization. Thank you Problems: Subjective 24 Hr Interval Summary s/p Paracentesis with removal of 2.6L serous fluid 07/15. No n/v. No f/c. No cough. No sz. No bleeding per mouth or rectum. No hickey/dizzy/visual or neuro changes. No pyuria. Feels better overall. Min pain. Exam/Review of Systems Vital Signs Vitals Vital Signs Date Time Temp Pulse Resp B/P Pulse Ox O2 Delivery O2 Flow Rate FiO2 07/16/16 15:30 98.0 67 18 102/52 98 07/13/16 02:55 21 Intake and Output 07/15/16 07/15/16 07/16/16 15:00 23:00 07:00 Intake Total 570 ml Output Total 525 ml 2600 ml Balance -525 ml -2030 ml Exam Free Text/Dictation GENERAL: No acute distress, slightly uncomfortable, but responsive and appropriate. HEENT: Pupils equal, reactive. No scleral icterus. Mucous membranes somewhat dry. NECK: Supple, no JVD. PULMONARY: Normal respiratory effort. No wheezing. HEART: S1, S2 present. ABDOMEN: Soft, distended, no rebound, no guarding. Right lower quadrant with a hernia that is slightly tender. Not rigid. PEG in place. EXTREMITIES: With minimal edema. VASCULAR: Cap refill is 2 seconds. NEUROLOGIC: Alert, oriented, moves all 4 extremities grossly; however weak. LYMPHATICS: No palpable inguinal, cervical lymph nodes. Results Result Diagram: 07/16/16 0602 07/16/16 0602 LORENE KAT MD Jul 16, 2016 15:39
--- NOTE | 2016-07-16 15:55 | CONS ---
Date/Time of Note Date/Time of Note DATE: 07/16/16 TIME: 15:53 Assessment/Plan Assessment/Plan Chief Complaint/Hosp Course SUBJECTIVE: The patient is alert, looks comfortable, c/o diarrhea==> on Lactulose, passed swallow eval today INDWELLINGS: The patient has a PEG. PHYSICAL EXAMINATION: GENERAL: This is a well-developed, obese, elderly man, who is alert, in no distress. HEENT: Head atraumatic, normocephalic. Sclerae anicteric. Buccal mucosa pink. NECK: Supple. CHEST: Chest rise is symmetrical. Breath sounds clear. HEART: S1, S2. ABDOMEN: Soft, bowel tones present. EXTREMITIES: With trace bilateral lower extremity edema. ASSESSMENT: 1. Liver cirrhosis with ascites, status post paracentesis. No evidence for SBP 2. Status post urinary tract infection. 3. Status post hepatic encephalopathy. 4. Status post gastrointestinal bleeding. 5. Anemia with thrombocytopenia. 6. Status post PEG. 7. History of familial Mediterranean fever. PLAN: The patient remains stable, off abx, continue presen care as per primary team DW pt/ Problems: Consultation Date/Type/Reason Admit Date/Time Jun 09, 2016 at 04:01 Initial Consult Date 06/09/16 Type of Consultation: ID Referring Provider: MAURY BENITEZ MD Exam/Review of Systems Vital Signs Vitals Vital Signs Date Time Temp Pulse Resp B/P Pulse Ox O2 Delivery O2 Flow Rate FiO2 07/16/16 15:30 98.0 67 18 102/52 98 07/13/16 02:55 21 Intake and Output 07/15/16 07/15/16 07/16/16 15:00 23:00 07:00 Intake Total 570 ml Output Total 525 ml 2600 ml Balance -525 ml -2030 ml Results Result Diagram: 07/16/16 0602 07/16/16 0602 Results 24 hrs Laboratory Tests Test 07/16/16 06:02 White Blood Count 4.6 L Red Blood Count 3.10 L Hemoglobin 8.9 L Hematocrit 28.8 L Mean Corpuscular Volume 92.9 Mean Corpuscular Hemoglobin 28.7 L Mean Corpuscular Hemoglobin Concent 30.9 L Red Cell Distribution Width 20.4 H Platelet Count 79 L Mean Platelet Volume 10.7 H Neutrophils % 75.9 Lymphocytes % 13.5 L Monocytes % 7.0 Eosinophils % 2.8 Basophils % 0.4 Nucleated Red Blood Cells % 0.0 Neutrophils # 3.5 Lymphocytes # 0.6 L Monocytes # 0.3 Eosinophils # 0.1 Basophils # 0.0 Nucleated Red Blood Cells # 0.0 Prothrombin Time 17.1 H Prothrombin Time Ratio 1.3 INR International Normalized Ratio 1.39 Activated Partial Thromboplast Time 35.4 H Sodium Level 130 L Potassium Level 3.9 Chloride Level 102 Carbon Dioxide Level 25 Anion Gap 7 L Blood Urea Nitrogen 9 Creatinine 0.76 Glucose Level 84 Calcium Level 7.4 L Total Bilirubin 1.6 H Direct Bilirubin 0.00 Indirect Bilirubin 1.6 H Aspartate Amino Transf (AST/SGOT) 30 Alanine Aminotransferase (ALT/SGPT) 32 Alkaline Phosphatase 170 H Total Protein 5.6 L Albumin 2.4 L Globulin 3.20 Albumin/Globulin Ratio 0.75 Medications Medications Current Medications Ondansetron HCl (Zofran Inj) 4 mg Q6H PRN IV NAUSEA AND/OR VOMITING; Start 06/09 at 04:30 Dutasteride (Avodart) 0.5 mg AM PO Last administered on 07/16/16 08:00; Admin Dose 0.5 MG; Start 06/09/16 at 09:00 Finasteride (Proscar) 5 mg AM PO Last administered on 07/16/16 08:01; Admin Dose 5 MG; Start 06/09/16 at 09:00 Levothyroxine Sodium (Synthroid) 50 mcg DAILY@06 PO Last administered on 04:58; Admin Dose 50 MCG; Start 06/09/16 at 06:00 Rifaximin (Xifaxan) 550 mg BID PO Last administered on 07/13/16 10:20; Admin Dose 550 MG; Start 06/11/16 at 14:30; Status Future Hold Eye Lubricant (Artificial Tears Oph) 2 drop QID BOTH EYES Last administered on 07/16/16 12:15; Admin Dose 2 DROP; Start 06/12/16 at 13:00 Hydralazine HCl (Apresoline) 10 mg Q2H PRN IV SBP>170; Start 06/12/16 at 17:00 Acetaminophen (Tylenol Liquid) 650 mg Q4H PRN NGT PAIN AND OR ELEVATED TEMP Last administered on 07/13/16 05:13; Admin Dose 650 MG; Start 06/17/16 at 12:30 Febuxostat (Uloric) 40 mg DAILY PO Last administered on 07/16/16 08:00; Admin Dose 40 MG; Start 06/25/16 at 15:00 Colchicine (Colchicine) 0.6 mg TID PRN PO gout pain Last administered on 05:13; Admin Dose 0.6 MG; Start 06/25/16 at 21:00 Lorazepam (Ativan) 1 mg Q6H PRN IV ANXIETY Last administered on 07/10/16 15:31 ; Admin Dose 1 MG; Start 06/25/16 at 18:30 Metoprolol Tartrate (Lopressor) 5 mg Q4H PRN IV HR>110 Last administered on 15:37; Admin Dose 5 MG; Start 06/28/16 at 16:00 Amiodarone HCl 200 mg 200 mg BID NGT Last administered on 07/16/16 08:01; Admin Dose 200 MG; Start 06/28/16 at 21:00 Potassium Chloride/Dextrose (D5W + KCl 20 Meq) 1,000 ml @ 50 mls/hr Q20H IV Last administered on 07/16/16 05:08; Admin Dose 50 MLS/HR; Start 07/02/16 at 20: 00 IV Flush (NS 10 ml) 10 ml PRN PRN IV IV PROTOCOL; Start 07/02/16 at 19:30 Tamsulosin HCl (Flomax) 0.4 mg HS PO Last administered on 07/15/16 21:37; Admin Dose 0.4 MG; Start 07/03/16 at 21:00 Miscellaneous Information 1 ea NOTE XX ; Start 07/05/16 at 20:00 Glucose (Glutose) 15 gm Q15M PRN PO DECREASED GLUCOSE; Start 07/05/16 at 20:00 Glucose (Glutose) 22.5 gm Q15M PRN PO DECREASED GLUCOSE; Start 07/05/16 at 20: 00 Dextrose (D50w Syringe) 25 ml Q15M PRN IV DECREASED GLUCOSE; Start 07/05/16 at 20:00 Dextrose (D50w Syringe) 50 ml Q15M PRN IV DECREASED GLUCOSE; Start 07/05/16 at 20:00 Glucagon (Glucagen) 1 mg Q15M PRN IM DECREASED GLUCOSE; Start 07/05/16 at 20:00 Glucose (Glutose) 15 gm Q15M PRN BUCCAL DECREASED GLUCOSE; Start 07/05/16 at 20 :00 Morphine Sulfate (morphine) 4 mg Q4H PRN IV PAIN Last administered on 07/16/16 15:21; Admin Dose 4 MG; Start 07/05/16 at 22:00 Metoprolol Tartrate 25 mg 25 mg BID PO Last administered on 07/16/16 08:02; Admin Dose 25 MG; Start 07/06/16 at 09:00 Dopamine HCl/ Dextrose 250 ml @ 7.35 mls/hr TITRATE IV ; Start 07/06/16 at 22: 00; Status Future Hold Prednisone (Prednisone) 20 mg DAILY GTB Last administered on 07/16/16 08:00; Admin Dose 20 MG; Start 07/11/16 at 09:00 Pantoprazole (Protonix Tab) 40 mg BID@06,18 PO Last administered on 07/16/16 04 :58; Admin Dose 40 MG; Start 07/10/16 at 18:00 Furosemide (Lasix) 20 mg DAILY GTB Last administered on 07/16/16 08:01; Admin Dose 20 MG; Start 07/11/16 at 11:00 Lactulose (Enulose) 20 gm DAILY PO ; Start 07/17/16 at 09:00 STACIE TAMEZ NP Jul 16, 2016 15:55
--- NOTE | 2016-07-16 16:17 | PN ---
Date/Time of Note Date/Time of Note DATE: 07/16/16 TIME: 16:07 Assessment/Plan VTE Prophylaxis VTE Prophylaxis Intervention: SCD's VTE Contraindication Reason: thrombocytopenia Lines/Catheters IV Catheter Type (from Nrsg): PICC Line Central line still needed: Yes Urinary Cath still in place: No Assessment/Plan Assessment/Plan 71 yo M with 1. Severe abd pain likely associated with severe abd distention:improved 2. 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 Esophageal variceal bleeding/post EVL 4. Multiple esophageal ulcers 5. Paroxysmal atrial fibrillation/atrial flutter, now back in sinus rhythm / rate controlled on amiodarone and BB 6. S/p recurrent NSVT - no new episodes now 7. S/p sepsis + Septic shock 2/2 Dorina UTI 8. 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 Chronic Anemia associated with chronic liver disease s/p multiple transfusions 10. Mild Hyponatremia: likely 2/2 fluid loss from diarrheal stools 11. Severe debility with dysphagia from prolonged hospitalization : PEG, G- tube feeding 12. Hypothyroidism 13. Pneumatosis intestinalis concerning for ischemic bowel, however patient clinically stable, LDH wnl * may be 2/2 SBP 14. BPH with Urinary retention: nava d/c yesterday, PLAN: * Paracentesis fluid not suggestive of infection * GI study negative for leakage/ patient has been cleared for tube feeds per GI * OK to resume tube feeds per surgery * Continue pain control * Continue intermittent catheterization PRN residuals >200 / Continue home flomax and tamsulosin / push for aggressive ambulation * Patient remains rate controlled without any further tele incidents / monitor electrolytes * Hold lactulose for now * Monitor hgb levels and transfuse PRN * Continue speech therapy and resume oral diet when cleared as safe * Patient is not a candidate for anticoagulation 2/2 ulcers and coagulopathy from liver disease * senior living prognosis is grim without liver transplant. High risk of readmission. Evaluation time >35mins/ Spoke with in detail. PROPHYLAXIS: SCDs / PPI Subjective 24 Hr Interval Summary Gastrointestinal: diarrhea, pain Exam/Review of Systems Vital Signs Vitals Vital Signs Date Time Temp Pulse Resp B/P Pulse Ox O2 Delivery O2 Flow Rate FiO2 07/16/16 15:30 98.0 67 18 102/52 98 07/13/16 02:55 21 Intake and Output 07/15/16 07/15/16 07/16/16 14:59 22:59 06:59 Intake Total 570 ml Output Total 525 ml 2600 ml Balance -525 ml -2030 ml Exam Constitutional: alert, distress Psych: anxiety Head: normocephalic Eyes: icteric Respiratory: diminished breath sounds Gastrointestinal: softer, distended, firm, hypoactive bowel sounds Extremities: edema Neurological: less lethargic, No confused Results Result Diagram: 07/16/16 0602 07/16/16 06 Results 24 hrs Laboratory Tests Test 07/16/16 06:02 White Blood Count 4.6 L Red Blood Count 3.10 L Hemoglobin 8.9 L Hematocrit 28.8 L Mean Corpuscular Volume 92.9 Mean Corpuscular Hemoglobin 28.7 L Mean Corpuscular Hemoglobin Concent 30.9 L Red Cell Distribution Width 20.4 H Platelet Count 79 L Mean Platelet Volume 10.7 H Neutrophils % 75.9 Lymphocytes % 13.5 L Monocytes % 7.0 Eosinophils % 2.8 Basophils % 0.4 Nucleated Red Blood Cells % 0.0 Neutrophils # 3.5 Lymphocytes # 0.6 L Monocytes # 0.3 Eosinophils # 0.1 Basophils # 0.0 Nucleated Red Blood Cells # 0.0 Prothrombin Time 17.1 H Prothrombin Time Ratio 1.3 INR International Normalized Ratio 1.39 Activated Partial Thromboplast Time 35.4 H Sodium Level 130 L Potassium Level 3.9 Chloride Level 102 Carbon Dioxide Level 25 Anion Gap 7 L Blood Urea Nitrogen 9 Creatinine 0.76 Glucose Level 84 Calcium Level 7.4 L Total Bilirubin 1.6 H Direct Bilirubin 0.00 Indirect Bilirubin 1.6 H Aspartate Amino Transf (AST/SGOT) 30 Alanine Aminotransferase (ALT/SGPT) 32 Alkaline Phosphatase 170 H Total Protein 5.6 L Albumin 2.4 L Globulin 3.20 Albumin/Globulin Ratio 0.75 Medications Medications Current Medications Ondansetron HCl (Zofran Inj) 4 mg Q6H PRN IV NAUSEA AND/OR VOMITING; Start 06/09 at 04:30 Dutasteride (Avodart) 0.5 mg AM PO Last administered on 07/16/16 08:00; Admin Dose 0.5 MG; Start 06/09/16 at 09:00 Finasteride (Proscar) 5 mg AM PO Last administered on 07/16/16 08:01; Admin Dose 5 MG; Start 06/09/16 at 09:00 Levothyroxine Sodium (Synthroid) 50 mcg DAILY@06 PO Last administered on 04:58; Admin Dose 50 MCG; Start 06/09/16 at 06:00 Rifaximin (Xifaxan) 550 mg BID PO Last administered on 07/13/16 10:20; Admin Dose 550 MG; Start 06/11/16 at 14:30; Status Future Hold Eye Lubricant (Artificial Tears Oph) 2 drop QID BOTH EYES Last administered on 07/16/16 12:15; Admin Dose 2 DROP; Start 06/12/16 at 13:00 Hydralazine HCl (Apresoline) 10 mg Q2H PRN IV SBP>170; Start 06/12/16 at 17:00 Acetaminophen (Tylenol Liquid) 650 mg Q4H PRN NGT PAIN AND OR ELEVATED TEMP Last administered on 07/13/16 05:13; Admin Dose 650 MG; Start 06/17/16 at 12:30 Febuxostat (Uloric) 40 mg DAILY PO Last administered on 07/16/16 08:00; Admin Dose 40 MG; Start 06/25/16 at 15:00 Colchicine (Colchicine) 0.6 mg TID PRN PO gout pain Last administered on 05:13; Admin Dose 0.6 MG; Start 06/25/16 at 21:00 Lorazepam (Ativan) 1 mg Q6H PRN IV ANXIETY Last administered on 07/10/16 15:31 ; Admin Dose 1 MG; Start 06/25/16 at 18:30 Metoprolol Tartrate (Lopressor) 5 mg Q4H PRN IV HR>110 Last administered on 15:37; Admin Dose 5 MG; Start 06/28/16 at 16:00 Amiodarone HCl 200 mg 200 mg BID NGT Last administered on 07/16/16 08:01; Admin Dose 200 MG; Start 06/28/16 at 21:00 Potassium Chloride/Dextrose (D5W + KCl 20 Meq) 1,000 ml @ 50 mls/hr Q20H IV Last administered on 07/16/16 05:08; Admin Dose 50 MLS/HR; Start 07/02/16 at 20: 00 IV Flush (NS 10 ml) 10 ml PRN PRN IV IV PROTOCOL; Start 07/02/16 at 19:30 Tamsulosin HCl (Flomax) 0.4 mg HS PO Last administered on 07/15/16 21:37; Admin Dose 0.4 MG; Start 07/03/16 at 21:00 Miscellaneous Information 1 ea NOTE XX ; Start 07/05/16 at 20:00 Glucose (Glutose) 15 gm Q15M PRN PO DECREASED GLUCOSE; Start 07/05/16 at 20:00 Glucose (Glutose) 22.5 gm Q15M PRN PO DECREASED GLUCOSE; Start 07/05/16 at 20: 00 Dextrose (D50w Syringe) 25 ml Q15M PRN IV DECREASED GLUCOSE; Start 07/05/16 at 20:00 Dextrose (D50w Syringe) 50 ml Q15M PRN IV DECREASED GLUCOSE; Start 07/05/16 at 20:00 Glucagon (Glucagen) 1 mg Q15M PRN IM DECREASED GLUCOSE; Start 07/05/16 at 20:00 Glucose (Glutose) 15 gm Q15M PRN BUCCAL DECREASED GLUCOSE; Start 07/05/16 at 20 :00 Morphine Sulfate (morphine) 4 mg Q4H PRN IV PAIN Last administered on 07/16/16 15:21; Admin Dose 4 MG; Start 07/05/16 at 22:00 Metoprolol Tartrate 25 mg 25 mg BID PO Last administered on 07/16/16 08:02; Admin Dose 25 MG; Start 07/06/16 at 09:00 Dopamine HCl/ Dextrose 250 ml @ 7.35 mls/hr TITRATE IV ; Start 07/06/16 at 22: 00; Status Future Hold Prednisone (Prednisone) 20 mg DAILY GTB Last administered on 07/16/16 08:00; Admin Dose 20 MG; Start 07/11/16 at 09:00 Pantoprazole (Protonix Tab) 40 mg BID@06,18 PO Last administered on 07/16/16 04 :58; Admin Dose 40 MG; Start 07/10/16 at 18:00 Furosemide (Lasix) 20 mg DAILY GTB Last administered on 07/16/16 08:01; Admin Dose 20 MG; Start 07/11/16 at 11:00 Lactulose (Enulose) 20 gm DAILY PO ; Start 07/17/16 at 09:00 JENNIFER MORENO Jul 16, 2016 16:17
[2016-07-16] MEDS: TAMSULOSIN (SR) 0.4 MG CAP PO SCH (21:43)
--- NOTE | 2016-07-16 23:15 | CONS ---
Date/Time of Note Date/Time of Note DATE: 07/16/16 TIME: 23:13 Assessment/Plan Assessment/Plan Chief Complaint/Hosp Course Anemia - COMPLEX, MULTIFACTORIAL WITH COMPONENT ACD, ACUTE BLOOD LOSS AND SEVERE IRON DEFICIENCY IN THE PAST * Esophageal variceal bleeding/post EVL * CONT TO MONITOR BLOOD COUNT CLOSELY * OBSERVE FOR BLEEDING AND HEMOLYSIS * PRBC NEEDED Alcoholic cirrhosis * Post variceal bleeding/post EVL * Portal encephalopathy * Ascites * Unsafe swallowing/failed swallow eval/high risk for aspiration * POST EGD plus PEG. * POST paracenteses prior to procedure. 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 Problems: Consultation Date/Type/Reason Admit Date/Time Jun 09, 2016 at 04:01 Initial Consult Date 06/09/16 Type of Consultation: HEMEON Referring Provider: MAURY BENITEZ MD 24 HR Interval Summary Free Text/Dictation ALL NOTED SEEN BY SURGERY COUNT STABLE ON CONSERVATIVE MANAGEMENT Exam/Review of Systems Vital Signs Vitals Vital Signs Date Time Temp Pulse Resp B/P Pulse Ox O2 Delivery O2 Flow Rate FiO2 07/16/16 20:10 63 07/16/16 20:00 97.7 15 107/58 94 07/13/16 02:55 21 Intake and Output 07/15/16 07/15/16 07/16/16 15:00 23:00 07:00 Intake Total 570 ml Output Total 525 ml 2600 ml Balance -525 ml -2030 ml Exam Constitutional: alert, distress Psych: anxiety Head: normocephalic Eyes: icteric Respiratory: diminished breath sounds Gastrointestinal: softer, distended, firm, hypoactive bowel sounds Extremities: edema Neurological: less lethargic, No confused Results Result Diagram: 07/16/16 0602 07/16/16 0602 Results 24 hrs Laboratory Tests Test 07/16/16 06:02 White Blood Count 4.6 L Red Blood Count 3.10 L Hemoglobin 8.9 L Hematocrit 28.8 L Mean Corpuscular Volume 92.9 Mean Corpuscular Hemoglobin 28.7 L Mean Corpuscular Hemoglobin Concent 30.9 L Red Cell Distribution Width 20.4 H Platelet Count 79 L Mean Platelet Volume 10.7 H Neutrophils % 75.9 Lymphocytes % 13.5 L Monocytes % 7.0 Eosinophils % 2.8 Basophils % 0.4 Nucleated Red Blood Cells % 0.0 Neutrophils # 3.5 Lymphocytes # 0.6 L Monocytes # 0.3 Eosinophils # 0.1 Basophils # 0.0 Nucleated Red Blood Cells # 0.0 Prothrombin Time 17.1 H Prothrombin Time Ratio 1.3 INR International Normalized Ratio 1.39 Activated Partial Thromboplast Time 35.4 H Sodium Level 130 L Potassium Level 3.9 Chloride Level 102 Carbon Dioxide Level 25 Anion Gap 7 L Blood Urea Nitrogen 9 Creatinine 0.76 Glucose Level 84 Calcium Level 7.4 L Total Bilirubin 1.6 H Direct Bilirubin 0.00 Indirect Bilirubin 1.6 H Aspartate Amino Transf (AST/SGOT) 30 Alanine Aminotransferase (ALT/SGPT) 32 Alkaline Phosphatase 170 H Total Protein 5.6 L Albumin 2.4 L Globulin 3.20 Albumin/Globulin Ratio 0.75 Medications Medications Current Medications Ondansetron HCl (Zofran Inj) 4 mg Q6H PRN IV NAUSEA AND/OR VOMITING; Start 06/09 at 04:30 Dutasteride (Avodart) 0.5 mg AM PO Last administered on 07/16/16 08:00; Admin Dose 0.5 MG; Start 06/09/16 at 09:00 Finasteride (Proscar) 5 mg AM PO Last administered on 07/16/16 08:01; Admin Dose 5 MG; Start 06/09/16 at 09:00 Levothyroxine Sodium (Synthroid) 50 mcg DAILY@06 PO Last administered on 04:58; Admin Dose 50 MCG; Start 06/09/16 at 06:00 Rifaximin (Xifaxan) 550 mg BID PO Last administered on 07/13/16 10:20; Admin Dose 550 MG; Start 06/11/16 at 14:30; Status Future Hold Eye Lubricant (Artificial Tears Oph) 2 drop QID BOTH EYES Last administered on 07/16/16 21:43; Admin Dose 2 DROP; Start 06/12/16 at 13:00 Hydralazine HCl (Apresoline) 10 mg Q2H PRN IV SBP>170; Start 06/12/16 at 17:00 Acetaminophen (Tylenol Liquid) 650 mg Q4H PRN NGT PAIN AND OR ELEVATED TEMP Last administered on 07/13/16 05:13; Admin Dose 650 MG; Start 06/17/16 at 12:30 Febuxostat (Uloric) 40 mg DAILY PO Last administered on 07/16/16 08:00; Admin Dose 40 MG; Start 06/25/16 at 15:00 Colchicine (Colchicine) 0.6 mg TID PRN PO gout pain Last administered on 05:13; Admin Dose 0.6 MG; Start 06/25/16 at 21:00 Lorazepam (Ativan) 1 mg Q6H PRN IV ANXIETY Last administered on 07/10/16 15:31 ; Admin Dose 1 MG; Start 06/25/16 at 18:30 Metoprolol Tartrate (Lopressor) 5 mg Q4H PRN IV HR>110 Last administered on 15:37; Admin Dose 5 MG; Start 06/28/16 at 16:00 Amiodarone HCl 200 mg 200 mg BID NGT Last administered on 07/16/16 21:43; Admin Dose 200 MG; Start 06/28/16 at 21:00 Potassium Chloride/Dextrose (D5W + KCl 20 Meq) 1,000 ml @ 50 mls/hr Q20H IV Last administered on 07/16/16 05:08; Admin Dose 50 MLS/HR; Start 07/02/16 at 20: 00 IV Flush (NS 10 ml) 10 ml PRN PRN IV IV PROTOCOL; Start 07/02/16 at 19:30 Tamsulosin HCl (Flomax) 0.4 mg HS PO Last administered on 07/16/16 21:43; Admin Dose 0.4 MG; Start 07/03/16 at 21:00 Miscellaneous Information 1 ea NOTE XX ; Start 07/05/16 at 20:00 Glucose (Glutose) 15 gm Q15M PRN PO DECREASED GLUCOSE; Start 07/05/16 at 20:00 Glucose (Glutose) 22.5 gm Q15M PRN PO DECREASED GLUCOSE; Start 07/05/16 at 20: 00 Dextrose (D50w Syringe) 25 ml Q15M PRN IV DECREASED GLUCOSE; Start 07/05/16 at 20:00 Dextrose (D50w Syringe) 50 ml Q15M PRN IV DECREASED GLUCOSE; Start 07/05/16 at 20:00 Glucagon (Glucagen) 1 mg Q15M PRN IM DECREASED GLUCOSE; Start 07/05/16 at 20:00 Glucose (Glutose) 15 gm Q15M PRN BUCCAL DECREASED GLUCOSE; Start 07/05/16 at 20 :00 Morphine Sulfate (morphine) 4 mg Q4H PRN IV PAIN Last administered on 07/16/16 20:53; Admin Dose 4 MG; Start 07/05/16 at 22:00 Metoprolol Tartrate 25 mg 25 mg BID PO Last administered on 07/16/16 08:02; Admin Dose 25 MG; Start 07/06/16 at 09:00 Dopamine HCl/ Dextrose 250 ml @ 7.35 mls/hr TITRATE IV ; Start 07/06/16 at 22: 00; Status Future Hold Prednisone (Prednisone) 20 mg DAILY GTB Last administered on 07/16/16 08:00; Admin Dose 20 MG; Start 07/11/16 at 09:00 Pantoprazole (Protonix Tab) 40 mg BID@06,18 PO Last administered on 07/16/16 17 :44; Admin Dose 40 MG; Start 07/10/16 at 18:00 Furosemide (Lasix) 20 mg DAILY GTB Last administered on 07/16/16 08:01; Admin Dose 20 MG; Start 07/11/16 at 11:00 Lactulose (Enulose) 20 gm DAILY PO ; Start 07/17/16 at 09:00 Procedures Procedures 07/13/2016 CT Abdomen with IV/PO contrast: 1. Hepatic cirrhosis with extensive moderate ascites throughout the abdomen, and consider ultrasound correlation to exclude masses and heterogenous liver 2. Mild scattered free air greater in the non dependent right abdomen, suggesting perforation of hollow viscus. 3. Mild to moderate pneumatosis intestinalis of the cecum and right colon, and mild pneumatosis intestinalis in the transverse colon. 4 Findings compatible bowel necrosis, with mild portal venous air in the right mesentery. 5. Nonspecific mild small bowel ileus. Surgical consult in process FAYE RUSHING MD Jul 16, 2016 23:15
[2016-07-17] VITALS (12 sets, daily range): BP systolic 97–114; BP diastolic 52–83; PULSE 58–64; RESP 15–18
[2016-07-17] MEDS: morphine 4 MG/ML VIAL IV PRN ×4 (01:39→22:27)
[2016-07-17] MEDS: PANTOPRAZOLE (EC) 40 MG TAB PO SCH ×2 (05:28→17:31)
[2016-07-17] MEDS: LEVOTHYROXINE 50 MCG TAB PO SCH (05:28)
[2016-07-17 06:27] LABS: ADD SCAN DIFF NO
[2016-07-17 06:34] LABS: ABNORMAL IP MESSAGE 1; BASOPHILS % 0.3 % (0.0-2.0); EOSINOPHILS # 0.1 10^3/ul (0.0-0.5); EOSINOPHILS % 3.1 % (0.0-7.0); HEMATOCRIT 27.3 % (42.0-52.0); HEMOGLOBIN 8.4 g/dl (14.0-18.0); LYMPHOCYTES # 0.8 10^3/ul (0.8-2.9); LYMPHOCYTES % 20.2 % (15.0-51.0); MEAN CORPUSCULAR HEMOGLOBIN 28.2 pg (29.0-33.0); MEAN CORPUSCULAR HGB CONC 30.8 g/dl (32.0-37.0); MEAN CORPUSCULAR VOLUME 91.6 fl (82.0-101.0); MEAN PLATELET VOLUME 10.6 fl (7.4-10.4); MONOCYTE # 0.4 10^3/ul (0.3-0.9); MONOCYTES % 9.7 % (0.0-11.0); NEUTROPHIL # 2.6 10^3/ul (1.6-7.5); NEUTROPHILS % 66.2 % (39.0-77.0); PLATELET COUNT 68 10^3/UL (140-415); RED BLOOD COUNT 2.98 10^6/ul (4.70-6.10); RED CELL DISTRIBUTION WIDTH 20.4 % (11.5-14.5); WHITE BLOOD COUNT 3.9 10^3/ul (4.8-10.8)
[2016-07-17] MEDS: LACTULOSE 30ML CUP PO SCH (09:05)
[2016-07-17] MEDS: FUROSEMIDE 20 MG TAB GTB SCH (09:05)
[2016-07-17] MEDS: AMIODARONE 200 MG TAB NGT SCH ×2 (09:05→20:28)
[2016-07-17] MEDS: FINASTERIDE 5 MG TAB PO SCH (09:06)
[2016-07-17] MEDS: METOPROLOL 25 MG TAB PO SCH ×2 (09:06→20:29)
[2016-07-17] MEDS: predniSONE 20 MG TAB GTB SCH (09:06)
[2016-07-17] MEDS: FEBUXOSTAT 40 MG TABLET PO SCH (09:06)
[2016-07-17] MEDS: ARTIFICIAL TEARS 15 ML OPH BOTH EYES SCH ×4 (09:07→20:13)
[2016-07-17] MEDS: DUTASTERIDE 0.5 MG CAP PO SCH (09:11)
--- NOTE | 2016-07-17 11:18 | CONS ---
Date/Time of Note Date/Time of Note DATE: 07/17/16 TIME: 11:16 Assessment/Plan Assessment/Plan Additional Assessment/Plan Acute Anemia Esophageal variceal bleeding/post EVL/ rebleeding * 06/09/2016 EGD + EVL :Actively bleeding esophageal varix post-endoscopic variceal ligation with cessation of bleeding. Large amounts of blood and clots in the stomach but no active bleeding or potential bleeding lesions present. The pylorus appears patent and duodenum with no lesions * 07/02/2016 EGD: Multiple esophageal ulcers. Post-endoscopic variceal ligation with no active bleeding but positive stigmata of recent bleeding. Gastrostomy tube in place and in good condition. No other bleeding site or potential bleeding site identified. Abdominal pain 07/13/2016 CT Abdomen with IV/PO contrast: 1. Hepatic cirrhosis with extensive moderate ascites throughout the abdomen, and consider ultrasound correlation to exclude masses and heterogenous liver 2. Mild scattered free air greater in the non dependent right abdomen, suggesting perforation of hollow viscus. 3. Mild to moderate pneumatosis intestinalis of the cecum and right colon, and mild pneumatosis intestinalis in the transverse colon. 4 Findings compatible bowel necrosis, with mild portal venous air in the right mesentery. 5. Nonspecific mild small bowel ileus. Surgical consult in process Dysphagia Gastrostomy tube in placed(no leak) 06/28/16 EGD + PEG: Esophageal ulcers with some old clots in the area, but no active bleeding. Nasogastric tube trauma present. Alcoholic cirrhosis Post variceal bleeding/post EVL Portal encephalopathy/ improving Ascites Coagulopathy Further recommendations depend on clinical course Pt seen in collaboration with Dr. Arce Consultation Date/Type/Reason Admit Date/Time Jun 09, 2016 at 04:01 Initial Consult Date 06/09/16 Type of Consultation: Gastroenterology Referring Provider: MAURY BENITEZ MD 24 HR Interval Summary Free Text/Dictation Tolerating p.o. intake Recommending to keep in G-tube Possible discharge on Tuesday after paracentesis Will encourage more ambulation Exam/Review of Systems Vital Signs Vitals Vital Signs Date Time Temp Pulse Resp B/P Pulse Ox O2 Delivery O2 Flow Rate FiO2 07/17/16 09:39 98.5 63 18 109/58 95 Room Air Intake and Output 07/16/16 07/16/16 07/17/16 15:00 23:00 07:00 Intake Total 50 ml 150 ml Output Total 750 ml Balance 50 ml -600 ml Exam Constitutional: alert, oriented, well developed Psych: nl mood/affect Head: normocephalic Eyes: EOMI, nl conjunctiva, nl lids ENMT: nl external ears & nose, nl lips & teeth, nl nasal mucosa & septum Respiratory: clear to auscultation, normal air movement Cardiovascular: regular rate and rhythm Gastrointestinal: soft, RUQ/periumbilical tenderness Musculoskeletal: nl extremities to inspection Neurological: [employer] II-XII intact Results Result Diagram: 07/17/16 0541 07/16/16 0602 Results 24 hrs Laboratory Tests Test 07/17/16 05:41 White Blood Count 3.9 L Red Blood Count 2.98 L Hemoglobin 8.4 L Hematocrit 27.3 L Mean Corpuscular Volume 91.6 Mean Corpuscular Hemoglobin 28.2 L Mean Corpuscular Hemoglobin Concent 30.8 L Red Cell Distribution Width 20.4 H Platelet Count 68 L Mean Platelet Volume 10.6 H Neutrophils % 66.2 Lymphocytes % 20.2 Monocytes % 9.7 Eosinophils % 3.1 Basophils % 0.3 Nucleated Red Blood Cells % 0.0 Neutrophils # 2.6 Lymphocytes # 0.8 Monocytes # 0.4 Eosinophils # 0.1 Basophils # 0.0 Nucleated Red Blood Cells # 0.0 Medications Medications Current Medications Ondansetron HCl (Zofran Inj) 4 mg Q6H PRN IV NAUSEA AND/OR VOMITING; Start 06/09 at 04:30 Dutasteride (Avodart) 0.5 mg AM PO Last administered on 07/17/16 09:11; Admin Dose 0.5 MG; Start 06/09/16 at 09:00 Finasteride (Proscar) 5 mg AM PO Last administered on 07/17/16 09:06; Admin Dose 5 MG; Start 06/09/16 at 09:00 Levothyroxine Sodium (Synthroid) 50 mcg DAILY@06 PO Last administered on 05:28; Admin Dose 50 MCG; Start 06/09/16 at 06:00 Rifaximin (Xifaxan) 550 mg BID PO Last administered on 07/13/16 10:20; Admin Dose 550 MG; Start 06/11/16 at 14:30; Status Future Hold Eye Lubricant (Artificial Tears Oph) 2 drop QID BOTH EYES Last administered on 07/17/16 09:07; Admin Dose 2 DROP; Start 06/12/16 at 13:00 Hydralazine HCl (Apresoline) 10 mg Q2H PRN IV SBP>170; Start 06/12/16 at 17:00 Acetaminophen (Tylenol Liquid) 650 mg Q4H PRN NGT PAIN AND OR ELEVATED TEMP Last administered on 07/13/16 05:13; Admin Dose 650 MG; Start 06/17/16 at 12:30 Febuxostat (Uloric) 40 mg DAILY PO Last administered on 07/17/16 09:06; Admin Dose 40 MG; Start 06/25/16 at 15:00 Colchicine (Colchicine) 0.6 mg TID PRN PO gout pain Last administered on 05:13; Admin Dose 0.6 MG; Start 06/25/16 at 21:00 Lorazepam (Ativan) 1 mg Q6H PRN IV ANXIETY Last administered on 07/10/16 15:31 ; Admin Dose 1 MG; Start 06/25/16 at 18:30 Metoprolol Tartrate (Lopressor) 5 mg Q4H PRN IV HR>110 Last administered on 15:37; Admin Dose 5 MG; Start 06/28/16 at 16:00 Amiodarone HCl 200 mg 200 mg BID NGT Last administered on 07/17/16 09:05; Admin Dose 200 MG; Start 06/28/16 at 21:00 Potassium Chloride/Dextrose (D5W + KCl 20 Meq) 1,000 ml @ 50 mls/hr Q20H IV Last administered on 07/16/16 05:08; Admin Dose 50 MLS/HR; Start 07/02/16 at 20: 00 IV Flush (NS 10 ml) 10 ml PRN PRN IV IV PROTOCOL; Start 07/02/16 at 19:30 Tamsulosin HCl (Flomax) 0.4 mg HS PO Last administered on 07/16/16 21:43; Admin Dose 0.4 MG; Start 07/03/16 at 21:00 Miscellaneous Information 1 ea NOTE XX ; Start 07/05/16 at 20:00 Glucose (Glutose) 15 gm Q15M PRN PO DECREASED GLUCOSE; Start 07/05/16 at 20:00 Glucose (Glutose) 22.5 gm Q15M PRN PO DECREASED GLUCOSE; Start 07/05/16 at 20: 00 Dextrose (D50w Syringe) 25 ml Q15M PRN IV DECREASED GLUCOSE; Start 07/05/16 at 20:00 Dextrose (D50w Syringe) 50 ml Q15M PRN IV DECREASED GLUCOSE; Start 07/05/16 at 20:00 Glucagon (Glucagen) 1 mg Q15M PRN IM DECREASED GLUCOSE; Start 07/05/16 at 20:00 Glucose (Glutose) 15 gm Q15M PRN BUCCAL DECREASED GLUCOSE; Start 07/05/16 at 20 :00 Morphine Sulfate (morphine) 4 mg Q4H PRN IV PAIN Last administered on 07/17/16 05:28; Admin Dose 4 MG; Start 07/05/16 at 22:00 Metoprolol Tartrate 25 mg 25 mg BID PO Last administered on 07/17/16 09:06; Admin Dose 25 MG; Start 07/06/16 at 09:00 Dopamine HCl/ Dextrose 250 ml @ 7.35 mls/hr TITRATE IV ; Start 07/06/16 at 22: 00; Status Future Hold Prednisone (Prednisone) 20 mg DAILY GTB Last administered on 07/17/16 09:06; Admin Dose 20 MG; Start 07/11/16 at 09:00 Pantoprazole (Protonix Tab) 40 mg BID@06,18 PO Last administered on 07/17/16 05 :28; Admin Dose 40 MG; Start 07/10/16 at 18:00 Furosemide (Lasix) 20 mg DAILY GTB Last administered on 07/17/16 09:05; Admin Dose 20 MG; Start 07/11/16 at 11:00 Lactulose (Enulose) 20 gm DAILY PO Last administered on 07/17/16 09:05; Admin Dose 20 GM; Start 07/17/16 at 09:00 KODY SHELDON Jul 17, 2016 11:18
[2016-07-17] MEDS: D5W + KCL 20 MEQ 1,000 ML IV SCH (13:14)
--- NOTE | 2016-07-17 13:32 | PN ---
DATE: 07/17/2016 SUBJECTIVE: The patient is doing much better today. He passed a swallow evaluation yesterday and this has made him quite happy. No further diarrheal episodes. His lactulose is now a once daily regimen and he is excited about the thought of ambulating with physical therapy. Apparently, he ambulated a few feet yesterday. OBJECTIVE: VITAL SIGNS: Temperature 98.0, pulse 59, respirations 18, blood pressure 99/57 , saturations 98% on room air. GENERAL: I found a 71-year-old male, obese. SKIN: Visibly jaundiced. HEENT: Head is normocephalic. Pupils are equal, round and reactive. Positive scleral jaundice, positive conjunctival pallor. Mucous membranes are moist. Posterior pharynx is clear of exudate. NECK: Supple. CHEST: Clear, with reduced breath sounds. CARDIOVASCULAR: S1 and S2 only. No murmurs. No further abnormalities on tele monitor. ABDOMEN: Abdomen remains distended, but is much softer and not tender to touch. The paracentesis site continues to ooze yellowish ascitic fluid. We have a colostomy bag over it to collect fluid. EXTREMITIES: Lower extremities are positive for bilateral edema, about 1+. NEUROLOGIC: He is lethargic, but without focal deficits. LABORATORY VALUES: Today white count is 3.9, hemoglobin is 8.4. He continues to have hypochromia and macrocytosis and a platelet count of 68. Chemistry: Serum sodium 130, but the rest of the BMP is unremarkable, but calcium is 7.4. Magnesium from yesterday was 1.7, bilirubin elevated at 1.6 and alkaline phosphatase is also elevated. AST and ALT remain normal. Hypoproteinemia and hypoalbuminemia noted. On his coagulation profile, INR today is 1.3. MICROBIOLOGY: Blood cultures since 07/05/2016 have remained negative. Ascitic fluid culture remains negative. AFB and fungal cultures are still pending. IMAGING: Yesterday he had a paracentesis done that was successful and 2.6 liters drained. He also had x-ray of the abdomen to check the gastrostomy tube that showed good positioning. ASSESSMENT: A 71-year-old male whose problems mainly stem from decompensated alcoholic cirrhosis, managed for the followin. End-stage alcoholic liver cirrhosis with coagulopathy, thrombocytopenia and varices. The patient is being managed for acute decompensation. 2. Esophageal variceal bleeding. Status post EVL. 3. Multiple esophageal ulcers. 4. Paroxysmal atrial fibrillation/atrial flutter, now back in sinus rhythm/ rate controlled on amiodarone and beta yoan/not a candidate for anticoagulation secondary to coagulopathy. 5. Status post recurrent NSVT. 6. Status post sepsis, with septic shock secondary to Dorina urinary tract infection. 7. 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 8. Chronic anemia associated with chronic liver disease, status post multiple transfusions. 9. Severe debility with dysphagia from prolonged hospitalization, status post percutaneous endoscopic gastrostomy tube placement, and now has passed a swallow evaluation and has been started on oral replacement, with PEG tube feeds being on hold. 10. Hypothyroidism. On replacement therapy. 11. 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 SBP has also been ruled out. 12. Benign prostatic hypertrophy with urinary retention. Patient is passing urine. PLAN: The patient seems to be stabilizing and hopefully he will remain such. 1. Continue oral feeds slowly and watch closely for aspiration. 2. Continue aggressive inhouse physical therapy, as we plan for outpatient placement. 3. I recommend the PEG tube be left in place for now until we are sure the patient will not decompensate again. 4. Continue lactulose at once a day regimen for now. 5. Arrange for possible discharge on Tuesday with home health for physical therapy and speech therapy, as well as a bedside commode and front-wheel walker. 6. Continue to monitor electrolytes and hemoglobin levels and intervene as needed. 7. The patient really requires an outpatient liver transplant. He has been referred to [facility] to proceed with this. 8. I strongly recommend continued cessation of alcohol use. 9. Patient will likely benefit from a paracentesis just prior to discharge, as he continues to have a significant amount of ascitic fluid draining from his abdomen, which will hopefully improve with ambulation. 10. The patient's blood pressure is still on the low side. I will hold off on commencing diuretic therapy at this time. 11. Prophylaxis. He is on SCDs and a PPI. Plan of care discussed with the patient and his son, as well as the GI doctor. The patient is on Lasix 20 mg daily for now. Dictated By: JENNIFER MORENO MD CARLOS Conf#: [id number] DID#: [id number] MTDD
--- NOTE | 2016-07-17 14:52 | CONS ---
Date/Time of Note Date/Time of Note DATE: 07/17/16 TIME: 14:51 Assessment/Plan Assessment/Plan Chief Complaint/Hosp Course IMPRESSION: 1. Paroxysmal atrial fibrillation/atrial flutter-now SR on PO amio 2. Abnormal electrocardiogram. 3. Hypotension, now improved.-tolerating low dose BB 4. Gastrointestinal bleed.-s/p EGD with esophageal ulcers/varices s/p banding with ongoing GIB at this time 5. Cirhosis s/p banding of varices 6. Encephalopathy-ongoing 7. Anemia-worsening 8. Hypernatremia 9. Coagulopathy 10.Fever 11.PNA 12.ARF-improved 14.Hypotension-improved off pressors/stable 15.Air in wall of colon-? ischemic bowel Recc: -Tele -Continue amiodarone/BB when patient PO as patient able to take -No asa/systemic anti-coag secondary to anemia/GIB -Follow MS closely -Follow Hgb closely -F/U cx data and continue abx's -Continue protonix/lactulose -Ongoing surgical eval of pneumatosis Problems: Consultation Date/Type/Reason Admit Date/Time Jun 09, 2016 at 04:01 Initial Consult Date 06/09/16 Type of Consultation: Cardiology Reason for Consultation PAFL Referring Provider: MAURY BENITEZ MD Exam/Review of Systems Vital Signs Vitals Vital Signs Date Time Temp Pulse Resp B/P Pulse Ox O2 Delivery O2 Flow Rate FiO2 07/17/16 12:06 98.0 59 18 99/57 98 07/17/16 09:39 Room Air Intake and Output 07/16/16 07/16/16 07/17/16 15:00 23:00 07:00 Intake Total 50 ml 150 ml Output Total 750 ml Balance 50 ml -600 ml Exam Review of Systems: CONSTITUTIONAL: No fevers, chills. PULMONARY: No sob CARDIOVASCULAR: No chest pain/palpitations GASTROINTESTINAL: No nausea/vomiting. GENITOURINARY: No hematuria/dysuria. MUSCULOSKELETAL: No myagias/arthalgias. PSYCHIATRIC: The patient denies depression. NEUROLOGIC: No weakness Constitutional: alert, oriented Psych: no complaints Head: normocephalic ENMT: mucosa pink and moist Neck: jvd (9 cm water), supple Respiratory: diminished breath sounds Cardiovascular: regular rate and rhythm Gastrointestinal: non-tender, soft Musculoskeletal: muscle tone (normal) Extremities: edema (none) Neurological: lethargic, other (No focal deficits) Results Result Diagram: 07/17/16 0541 07/16/16 0602 Results 24 hrs Laboratory Tests Test 07/17/16 05:41 White Blood Count 3.9 L Red Blood Count 2.98 L Hemoglobin 8.4 L Hematocrit 27.3 L Mean Corpuscular Volume 91.6 Mean Corpuscular Hemoglobin 28.2 L Mean Corpuscular Hemoglobin Concent 30.8 L Red Cell Distribution Width 20.4 H Platelet Count 68 L Mean Platelet Volume 10.6 H Neutrophils % 66.2 Lymphocytes % 20.2 Monocytes % 9.7 Eosinophils % 3.1 Basophils % 0.3 Nucleated Red Blood Cells % 0.0 Neutrophils # 2.6 Lymphocytes # 0.8 Monocytes # 0.4 Eosinophils # 0.1 Basophils # 0.0 Nucleated Red Blood Cells # 0.0 Medications Medications Current Medications Ondansetron HCl (Zofran Inj) 4 mg Q6H PRN IV NAUSEA AND/OR VOMITING; Start 06/09 at 04:30 Dutasteride (Avodart) 0.5 mg AM PO Last administered on 07/17/16 09:11; Admin Dose 0.5 MG; Start 06/09/16 at 09:00 Finasteride (Proscar) 5 mg AM PO Last administered on 07/17/16 09:06; Admin Dose 5 MG; Start 06/09/16 at 09:00 Levothyroxine Sodium (Synthroid) 50 mcg DAILY@06 PO Last administered on 05:28; Admin Dose 50 MCG; Start 06/09/16 at 06:00 Rifaximin (Xifaxan) 550 mg BID PO Last administered on 07/13/16 10:20; Admin Dose 550 MG; Start 06/11/16 at 14:30; Status Future Hold Eye Lubricant (Artificial Tears Oph) 2 drop QID BOTH EYES Last administered on 07/17/16 13:08; Admin Dose 2 DROP; Start 06/12/16 at 13:00 Hydralazine HCl (Apresoline) 10 mg Q2H PRN IV SBP>170; Start 06/12/16 at 17:00 Acetaminophen (Tylenol Liquid) 650 mg Q4H PRN NGT PAIN AND OR ELEVATED TEMP Last administered on 07/13/16 05:13; Admin Dose 650 MG; Start 06/17/16 at 12:30 Febuxostat (Uloric) 40 mg DAILY PO Last administered on 07/17/16 09:06; Admin Dose 40 MG; Start 06/25/16 at 15:00 Colchicine (Colchicine) 0.6 mg TID PRN PO gout pain Last administered on 05:13; Admin Dose 0.6 MG; Start 06/25/16 at 21:00 Lorazepam (Ativan) 1 mg Q6H PRN IV ANXIETY Last administered on 07/10/16 15:31 ; Admin Dose 1 MG; Start 06/25/16 at 18:30 Metoprolol Tartrate (Lopressor) 5 mg Q4H PRN IV HR>110 Last administered on 15:37; Admin Dose 5 MG; Start 06/28/16 at 16:00 Amiodarone HCl 200 mg 200 mg BID NGT Last administered on 07/17/16 09:05; Admin Dose 200 MG; Start 06/28/16 at 21:00 Potassium Chloride/Dextrose (D5W + KCl 20 Meq) 1,000 ml @ 50 mls/hr Q20H IV Last administered on 07/17/16 13:14; Admin Dose 50 MLS/HR; Start 07/02/16 at 20: 00 IV Flush (NS 10 ml) 10 ml PRN PRN IV IV PROTOCOL; Start 07/02/16 at 19:30 Tamsulosin HCl (Flomax) 0.4 mg HS PO Last administered on 07/16/16 21:43; Admin Dose 0.4 MG; Start 07/03/16 at 21:00 Miscellaneous Information 1 ea NOTE XX ; Start 07/05/16 at 20:00 Glucose (Glutose) 15 gm Q15M PRN PO DECREASED GLUCOSE; Start 07/05/16 at 20:00 Glucose (Glutose) 22.5 gm Q15M PRN PO DECREASED GLUCOSE; Start 07/05/16 at 20: 00 Dextrose (D50w Syringe) 25 ml Q15M PRN IV DECREASED GLUCOSE; Start 07/05/16 at 20:00 Dextrose (D50w Syringe) 50 ml Q15M PRN IV DECREASED GLUCOSE; Start 07/05/16 at 20:00 Glucagon (Glucagen) 1 mg Q15M PRN IM DECREASED GLUCOSE; Start 07/05/16 at 20:00 Glucose (Glutose) 15 gm Q15M PRN BUCCAL DECREASED GLUCOSE; Start 07/05/16 at 20 :00 Morphine Sulfate (morphine) 4 mg Q4H PRN IV PAIN Last administered on 07/17/16 13:14; Admin Dose 4 MG; Start 07/05/16 at 22:00 Metoprolol Tartrate 25 mg 25 mg BID PO Last administered on 07/17/16 09:06; Admin Dose 25 MG; Start 07/06/16 at 09:00 Dopamine HCl/ Dextrose 250 ml @ 7.35 mls/hr TITRATE IV ; Start 07/06/16 at 22: 00; Status Future Hold Prednisone (Prednisone) 20 mg DAILY GTB Last administered on 07/17/16 09:06; Admin Dose 20 MG; Start 07/11/16 at 09:00 Pantoprazole (Protonix Tab) 40 mg BID@06,18 PO Last administered on 07/17/16 05 :28; Admin Dose 40 MG; Start 07/10/16 at 18:00 Furosemide (Lasix) 20 mg DAILY GTB Last administered on 07/17/16 09:05; Admin Dose 20 MG; Start 07/11/16 at 11:00 Lactulose (Enulose) 20 gm DAILY PO Last administered on 07/17/16 09:05; Admin Dose 20 GM; Start 07/17/16 at 09:00 ANGELES ODONNELL Jul 17, 2016 14:52
[2016-07-17] MEDS: TAMSULOSIN (SR) 0.4 MG CAP PO SCH (20:13)
--- NOTE | 2016-07-17 23:24 | CONS ---
Date/Time of Note Date/Time of Note DATE: 07/17/16 TIME: 23:24 Assessment/Plan Assessment/Plan Chief Complaint/Hosp Course Anemia - COMPLEX, MULTIFACTORIAL WITH COMPONENT ACD, ACUTE BLOOD LOSS AND SEVERE IRON DEFICIENCY IN THE PAST * Esophageal variceal bleeding/post EVL * CONT TO MONITOR BLOOD COUNT CLOSELY * OBSERVE FOR BLEEDING AND HEMOLYSIS * PRBC NEEDED Alcoholic cirrhosis * Post variceal bleeding/post EVL * Portal encephalopathy * Ascites * Unsafe swallowing/failed swallow eval/high risk for aspiration * POST EGD plus PEG. * POST paracenteses prior to procedure. 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 Problems: Consultation Date/Type/Reason Admit Date/Time Jun 09, 2016 at 04:01 Initial Consult Date 06/09/16 Type of Consultation: [employer] Referring Provider: MAURY BENITEZ MD 24 HR Interval Summary Free Text/Dictation The patient is doing much better today. He passed a swallow evaluation yesterday and this has made him quite happy. No further diarrheal episodes. His lactulose is now a once daily regimen and he is excited about the thought of ambulating with physical therapy. Apparently, he ambulated a few feet yesterday. Exam/Review of Systems Vital Signs Vitals Vital Signs Date Time Temp Pulse Resp B/P Pulse Ox O2 Delivery O2 Flow Rate FiO2 07/17/16 20:15 64 07/17/16 19:41 98.3 15 98/58 95 07/17/16 09:39 Room Air Intake and Output 07/16/16 07/16/16 07/17/16 15:00 23:00 07:00 Intake Total 50 ml 150 ml Output Total 750 ml Balance 50 ml -600 ml Exam OBJECTIVE SKIN: Visibly jaundiced. HEENT: Head is normocephalic. Pupils are equal, round and reactive. Positive scleral jaundice, positive conjunctival pallor. Mucous membranes are moist. Posterior pharynx is clear of exudate. NECK: Supple. CHEST: Clear, with reduced breath sounds. CARDIOVASCULAR: S1 and S2 only. No murmurs. No further abnormalities on tele monitor. ABDOMEN: Abdomen remains distended, but is much softer and not tender to touch. The paracentesis site continues to ooze yellowish ascitic fluid. We have a colostomy bag over it to collect fluid. EXTREMITIES: Lower extremities are positive for bilateral edema, about 1+. NEUROLOGIC: He is lethargic, but without focal deficits. Results Result Diagram: 07/17/16 0541 07/16/16 0602 Results 24 hrs Laboratory Tests Test 07/17/16 05:41 White Blood Count 3.9 L Red Blood Count 2.98 L Hemoglobin 8.4 L Hematocrit 27.3 L Mean Corpuscular Volume 91.6 Mean Corpuscular Hemoglobin 28.2 L Mean Corpuscular Hemoglobin Concent 30.8 L Red Cell Distribution Width 20.4 H Platelet Count 68 L Mean Platelet Volume 10.6 H Neutrophils % 66.2 Lymphocytes % 20.2 Monocytes % 9.7 Eosinophils % 3.1 Basophils % 0.3 Nucleated Red Blood Cells % 0.0 Neutrophils # 2.6 Lymphocytes # 0.8 Monocytes # 0.4 Eosinophils # 0.1 Basophils # 0.0 Nucleated Red Blood Cells # 0.0 Medications Medications Current Medications Ondansetron HCl (Zofran Inj) 4 mg Q6H PRN IV NAUSEA AND/OR VOMITING; Start 06/09 at 04:30 Dutasteride (Avodart) 0.5 mg AM PO Last administered on 07/17/16 09:11; Admin Dose 0.5 MG; Start 06/09/16 at 09:00 Finasteride (Proscar) 5 mg AM PO Last administered on 07/17/16 09:06; Admin Dose 5 MG; Start 06/09/16 at 09:00 Levothyroxine Sodium (Synthroid) 50 mcg DAILY@06 PO Last administered on 05:28; Admin Dose 50 MCG; Start 06/09/16 at 06:00 Rifaximin (Xifaxan) 550 mg BID PO Last administered on 07/13/16 10:20; Admin Dose 550 MG; Start 06/11/16 at 14:30; Status Future Hold Eye Lubricant (Artificial Tears Oph) 2 drop QID BOTH EYES Last administered on 07/17/16 20:13; Admin Dose 2 DROP; Start 06/12/16 at 13:00 Hydralazine HCl (Apresoline) 10 mg Q2H PRN IV SBP>170; Start 06/12/16 at 17:00 Acetaminophen (Tylenol Liquid) 650 mg Q4H PRN NGT PAIN AND OR ELEVATED TEMP Last administered on 07/13/16 05:13; Admin Dose 650 MG; Start 06/17/16 at 12:30 Febuxostat (Uloric) 40 mg DAILY PO Last administered on 07/17/16 09:06; Admin Dose 40 MG; Start 06/25/16 at 15:00 Colchicine (Colchicine) 0.6 mg TID PRN PO gout pain Last administered on 05:13; Admin Dose 0.6 MG; Start 06/25/16 at 21:00 Lorazepam (Ativan) 1 mg Q6H PRN IV ANXIETY Last administered on 07/10/16 15:31 ; Admin Dose 1 MG; Start 06/25/16 at 18:30 Metoprolol Tartrate (Lopressor) 5 mg Q4H PRN IV HR>110 Last administered on 15:37; Admin Dose 5 MG; Start 06/28/16 at 16:00 Amiodarone HCl 200 mg 200 mg BID NGT Last administered on 07/17/16 09:05; Admin Dose 200 MG; Start 06/28/16 at 21:00 Potassium Chloride/Dextrose (D5W + KCl 20 Meq) 1,000 ml @ 50 mls/hr Q20H IV Last administered on 07/17/16 13:14; Admin Dose 50 MLS/HR; Start 07/02/16 at 20: 00 IV Flush (NS 10 ml) 10 ml PRN PRN IV IV PROTOCOL Last administered on 07/17/16 20:13; Admin Dose 10 ML; Start 07/02/16 at 19:30 Tamsulosin HCl (Flomax) 0.4 mg HS PO Last administered on 07/17/16 20:13; Admin Dose 0.4 MG; Start 07/03/16 at 21:00 Miscellaneous Information 1 ea NOTE XX ; Start 07/05/16 at 20:00 Glucose (Glutose) 15 gm Q15M PRN PO DECREASED GLUCOSE; Start 07/05/16 at 20:00 Glucose (Glutose) 22.5 gm Q15M PRN PO DECREASED GLUCOSE; Start 07/05/16 at 20: 00 Dextrose (D50w Syringe) 25 ml Q15M PRN IV DECREASED GLUCOSE; Start 07/05/16 at 20:00 Dextrose (D50w Syringe) 50 ml Q15M PRN IV DECREASED GLUCOSE; Start 07/05/16 at 20:00 Glucagon (Glucagen) 1 mg Q15M PRN IM DECREASED GLUCOSE; Start 07/05/16 at 20:00 Glucose (Glutose) 15 gm Q15M PRN BUCCAL DECREASED GLUCOSE; Start 07/05/16 at 20 :00 Morphine Sulfate (morphine) 4 mg Q4H PRN IV PAIN Last administered on 07/17/16 22:27; Admin Dose 4 MG; Start 07/05/16 at 22:00 Metoprolol Tartrate 25 mg 25 mg BID PO Last administered on 07/17/16 09:06; Admin Dose 25 MG; Start 07/06/16 at 09:00 Dopamine HCl/ Dextrose 250 ml @ 7.35 mls/hr TITRATE IV ; Start 07/06/16 at 22: 00; Status Future Hold Prednisone (Prednisone) 20 mg DAILY GTB Last administered on 07/17/16 09:06; Admin Dose 20 MG; Start 07/11/16 at 09:00 Pantoprazole (Protonix Tab) 40 mg BID@06,18 PO Last administered on 07/17/16 17 :31; Admin Dose 40 MG; Start 07/10/16 at 18:00 Furosemide (Lasix) 20 mg DAILY GTB Last administered on 07/17/16 09:05; Admin Dose 20 MG; Start 07/11/16 at 11:00 Lactulose (Enulose) 20 gm DAILY PO Last administered on 07/17/16 09:05; Admin Dose 20 GM; Start 07/17/16 at 09:00 FAYE RUSHING MD Jul 17, 2016 23:24
[2016-07-18] VITALS (14 sets, daily range): BP systolic 96–115; BP diastolic 51–71; PULSE 59–77; RESP 15–18
[2016-07-18] MEDS: LEVOTHYROXINE 50 MCG TAB PO SCH (05:29)
[2016-07-18] MEDS: PANTOPRAZOLE (EC) 40 MG TAB PO SCH ×2 (05:29→17:06)
[2016-07-18] MEDS: morphine 4 MG/ML VIAL IV PRN ×2 (05:30→20:27)
[2016-07-18] MEDS: LACTULOSE 30ML CUP PO SCH (08:59)
[2016-07-18] MEDS: FEBUXOSTAT 40 MG TABLET PO SCH (08:59)
[2016-07-18] MEDS: DUTASTERIDE 0.5 MG CAP PO SCH (08:59)
[2016-07-18] MEDS: METOPROLOL 25 MG TAB PO SCH ×2 (09:00→20:17)
[2016-07-18] MEDS: AMIODARONE 200 MG TAB NGT SCH ×2 (09:00→20:16)
[2016-07-18] MEDS: FUROSEMIDE 20 MG TAB GTB SCH (09:00)
[2016-07-18] MEDS: predniSONE 20 MG TAB GTB SCH (09:01)
[2016-07-18] MEDS: FINASTERIDE 5 MG TAB PO SCH (09:01)
[2016-07-18] MEDS: ARTIFICIAL TEARS 15 ML OPH BOTH EYES SCH ×4 (09:04→20:14)
[2016-07-18] MEDS: D5W + KCL 20 MEQ 1,000 ML IV SCH (09:08)
--- NOTE | 2016-07-18 09:30 | CONS ---
Date/Time of Note Date/Time of Note DATE: 07/18/16 TIME: 09:27 Assessment/Plan Assessment/Plan Additional Assessment/Plan Acute Anemia Esophageal variceal bleeding/post EVL/ rebleeding * 06/09/2016 EGD + EVL :Actively bleeding esophageal varix post-endoscopic variceal ligation with cessation of bleeding. Large amounts of blood and clots in the stomach but no active bleeding or potential bleeding lesions present. The pylorus appears patent and duodenum with no lesions * 07/02/2016 EGD: Multiple esophageal ulcers. Post-endoscopic variceal ligation with no active bleeding but positive stigmata of recent bleeding. Gastrostomy tube in place and in good condition. No other bleeding site or potential bleeding site identified. Abdominal pain 07/13/2016 CT Abdomen with IV/PO contrast: 1. Hepatic cirrhosis with extensive moderate ascites throughout the abdomen, and consider ultrasound correlation to exclude masses and heterogenous liver 2. Mild scattered free air greater in the non dependent right abdomen, suggesting perforation of hollow viscus. 3. Mild to moderate pneumatosis intestinalis of the cecum and right colon, and mild pneumatosis intestinalis in the transverse colon. 4 Findings compatible bowel necrosis, with mild portal venous air in the right mesentery. 5. Nonspecific mild small bowel ileus. Surgical consult in process Dysphagia, resolved Tolerating puree diet Gastrostomy tube in placed(no leak) 06/28/16 EGD + PEG: Esophageal ulcers with some old clots in the area, but no active bleeding. Nasogastric tube trauma present. G-tube in place and its continued use versus discontinuation will be evaluated on outpatient basis Alcoholic cirrhosis Post variceal bleeding/post EVL Portal encephalopathy/ improving Ascites Coagulopathy Further recommendations depend on clinical course Pt seen in collaboration with Dr. Arce Consultation Date/Type/Reason Admit Date/Time Jun 09, 2016 at 04:01 Initial Consult Date 06/09/16 Type of Consultation: Gastroenterology Referring Provider: MAURY BENITEZ MD 24 HR Interval Summary Free Text/Dictation Hemoglobin stable Exam/Review of Systems Vital Signs Vitals Vital Signs Date Time Temp Pulse Resp B/P Pulse Ox O2 Delivery O2 Flow Rate FiO2 07/18/16 09:09 97.8 73 18 97/56 95 Room Air Intake and Output 07/17/16 07/17/16 07/18/16 15:00 23:00 07:00 Intake Total 900 ml 1250 ml Output Total 1100 ml Balance -200 ml 1250 ml Exam Constitutional: alert, oriented, well developed Psych: nl mood/affect Head: normocephalic Eyes: EOMI, nl conjunctiva, nl lids ENMT: nl external ears & nose, nl lips & teeth, nl nasal mucosa & septum Respiratory: clear to auscultation, normal air movement Cardiovascular: regular rate and rhythm Gastrointestinal: soft, RUQ/periumbilical tenderness Musculoskeletal: nl extremities to inspection Neurological: ENGINE TURNER II-XII intact Results Result Diagram: 07/17/16 0541 07/16/16 0602 Medications Medications Current Medications Ondansetron HCl (Zofran Inj) 4 mg Q6H PRN IV NAUSEA AND/OR VOMITING; Start 06/09 at 04:30 Dutasteride (Avodart) 0.5 mg AM PO Last administered on 07/18/16 08:59; Admin Dose 0.5 MG; Start 06/09/16 at 09:00 Finasteride (Proscar) 5 mg AM PO Last administered on 07/18/16 09:01; Admin Dose 5 MG; Start 06/09/16 at 09:00 Levothyroxine Sodium (Synthroid) 50 mcg DAILY@06 PO Last administered on 05:29; Admin Dose 50 MCG; Start 06/09/16 at 06:00 Rifaximin (Xifaxan) 550 mg BID PO Last administered on 07/13/16 10:20; Admin Dose 550 MG; Start 06/11/16 at 14:30; Status Future Hold Eye Lubricant (Artificial Tears Oph) 2 drop QID BOTH EYES Last administered on 07/18/16 09:04; Admin Dose 2 DROP; Start 06/12/16 at 13:00 Hydralazine HCl (Apresoline) 10 mg Q2H PRN IV SBP>170; Start 06/12/16 at 17:00 Acetaminophen (Tylenol Liquid) 650 mg Q4H PRN NGT PAIN AND OR ELEVATED TEMP Last administered on 07/13/16 05:13; Admin Dose 650 MG; Start 06/17/16 at 12:30 Febuxostat (Uloric) 40 mg DAILY PO Last administered on 07/18/16 08:59; Admin Dose 40 MG; Start 06/25/16 at 15:00 Colchicine (Colchicine) 0.6 mg TID PRN PO gout pain Last administered on 05:13; Admin Dose 0.6 MG; Start 06/25/16 at 21:00 Lorazepam (Ativan) 1 mg Q6H PRN IV ANXIETY Last administered on 07/10/16 15:31 ; Admin Dose 1 MG; Start 06/25/16 at 18:30 Metoprolol Tartrate (Lopressor) 5 mg Q4H PRN IV HR>110 Last administered on 15:37; Admin Dose 5 MG; Start 06/28/16 at 16:00 Amiodarone HCl 200 mg 200 mg BID NGT Last administered on 07/17/16 09:05; Admin Dose 200 MG; Start 06/28/16 at 21:00 Potassium Chloride/Dextrose (D5W + KCl 20 Meq) 1,000 ml @ 50 mls/hr Q20H IV Last administered on 07/18/16 09:08; Admin Dose 50 MLS/HR; Start 07/02/16 at 20: 00 IV Flush (NS 10 ml) 10 ml PRN PRN IV IV PROTOCOL Last administered on 07/17/16 20:13; Admin Dose 10 ML; Start 07/02/16 at 19:30 Tamsulosin HCl (Flomax) 0.4 mg HS PO Last administered on 07/17/16 20:13; Admin Dose 0.4 MG; Start 07/03/16 at 21:00 Miscellaneous Information 1 ea NOTE XX ; Start 07/05/16 at 20:00 Glucose (Glutose) 15 gm Q15M PRN PO DECREASED GLUCOSE; Start 07/05/16 at 20:00 Glucose (Glutose) 22.5 gm Q15M PRN PO DECREASED GLUCOSE; Start 07/05/16 at 20: 00 Dextrose (D50w Syringe) 25 ml Q15M PRN IV DECREASED GLUCOSE; Start 07/05/16 at 20:00 Dextrose (D50w Syringe) 50 ml Q15M PRN IV DECREASED GLUCOSE; Start 07/05/16 at 20:00 Glucagon (Glucagen) 1 mg Q15M PRN IM DECREASED GLUCOSE; Start 07/05/16 at 20:00 Glucose (Glutose) 15 gm Q15M PRN BUCCAL DECREASED GLUCOSE; Start 07/05/16 at 20 :00 Morphine Sulfate (morphine) 4 mg Q4H PRN IV PAIN Last administered on 07/17/16 22:27; Admin Dose 4 MG; Start 07/05/16 at 22:00 Metoprolol Tartrate 25 mg 25 mg BID PO Last administered on 07/17/16 09:06; Admin Dose 25 MG; Start 07/06/16 at 09:00 Dopamine HCl/ Dextrose 250 ml @ 7.35 mls/hr TITRATE IV ; Start 07/06/16 at 22: 00; Status Future Hold Prednisone (Prednisone) 20 mg DAILY GTB Last administered on 07/18/16 09:01; Admin Dose 20 MG; Start 07/11/16 at 09:00 Pantoprazole (Protonix Tab) 40 mg BID@06,18 PO Last administered on 07/18/16 05 :29; Admin Dose 40 MG; Start 07/10/16 at 18:00 Furosemide (Lasix) 20 mg DAILY GTB Last administered on 07/17/16 09:05; Admin Dose 20 MG; Start 07/11/16 at 11:00 Lactulose (Enulose) 20 gm DAILY PO Last administered on 07/18/16 08:59; Admin Dose 20 GM; Start 07/17/16 at 09:00 KODY SHELDON Jul 18, 2016 09:30
--- NOTE | 2016-07-18 10:31 | PN ---
Date/Time of Note Date/Time of Note DATE: 07/18/16 TIME: 10:17 Assessment/Plan VTE Prophylaxis VTE Prophylaxis Intervention: SCD's VTE Contraindication Reason: thrombocytopenia Lines/Catheters IV Catheter Type (from Nrs): PICC Line Central line still needed: Yes Urinary Cath still in place: No Assessment/Plan Assessment/Plan A 71-year-old male whose problems mainly stem from decompensated alcoholic cirrhosis, managed for the followin. End-stage alcoholic liver cirrhosis with coagulopathy, thrombocytopenia and varices. 2. Esophageal variceal bleeding. Status post EVL. 3. Multiple esophageal ulcers. 4. Paroxysmal atrial fibrillation/atrial flutter, now back in sinus rhythm/ rate controlled on amiodarone and beta yoan/not a candidate for anticoagulation secondary to coagulopathy. 5. Status post recurrent NSVT. 6. Status post sepsis, with septic shock secondary to [place] urinary tract infection. 7. 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 8. Chronic anemia associated with chronic liver disease, status post multiple transfusions. 9. Severe debility with dysphagia from prolonged hospitalization, s/p PEG placement * Patient now on oral diet / PEG feeds on hold * GI recommends keeping tube in place for now 10. Hypothyroidism. On replacement therapy. 11. 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 SBP has also been ruled out. 12. Benign prostatic hypertrophy with urinary retention. Patient is passing urine. PLAN: * Patient remains a 2P assist but is improving daily * Arrange for possible discharge on Tuesday to home with home health for physical therapy and speech therapy and DME if clinically stronger * Family truly prefers home discharge but desires for him to be slightly stronger * Continue aggressive inhouse physical therapy, as we plan for outpatient placement. * Continue oral feeds slowly and watch closely for aspiration. * I recommend the PEG tube be left in place for now until we are sure the patient will not decompensate again. * Continue lactulose at once a day regimen for now * Continue to monitor electrolytes and hemoglobin levels and intervene as needed. * The patient really requires an outpatient liver transplant. He has been referred to [facility] to proceed with this. * Continued cessation of alcohol use daily counselled Prophylaxis: SCDS / PPI Plan of care discussed with the patient and his son, as well as the GI doctor. Subjective 24 Hr Interval Summary Free Text/Dictation family now concerned about lack of BM today Patient was angry about diarrhea 2 days ago Exam/Review of Systems Vital Signs Vitals Vital Signs Date Time Temp Pulse Resp B/P Pulse Ox O2 Delivery O2 Flow Rate FiO2 07/18/16 09:09 97.8 73 18 97/56 95 Room Air Intake and Output 07/17/16 07/17/16 07/18/16 15:00 23:00 07:00 Intake Total 900 ml 1250 ml Output Total 1100 ml Balance -200 ml 1250 ml Exam GENERAL: I found a 71-year-old male, obese. SKIN: Visibly jaundiced. HEENT: Head is normocephalic. Pupils are equal, round and reactive. Positive scleral jaundice, positive conjunctival pallor. Mucous membranes are moist. Posterior pharynx is clear of exudate. NECK: Supple. CHEST: Clear, with reduced breath sounds. CARDIOVASCULAR: S1 and S2 only. No murmurs. No further abnormalities on tele monitor. ABDOMEN: Abdomen remains distended, but is much softer and not tender to touch. The paracentesis site continues to ooze yellowish ascitic fluid. We have a colostomy bag over it to collect fluid. EXTREMITIES: Lower extremities are positive for bilateral edema, about 1+. NEUROLOGIC: He is much less lethargic, but without focal deficits. Results Result Diagram: 07/17/16 0541 07/16/16 0602 Medications Medications Current Medications Ondansetron HCl (Zofran Inj) 4 mg Q6H PRN IV NAUSEA AND/OR VOMITING; Start 06/09 at 04:30 Dutasteride (Avodart) 0.5 mg AM PO Last administered on 07/18/16 08:59; Admin Dose 0.5 MG; Start 06/09/16 at 09:00 Finasteride (Proscar) 5 mg AM PO Last administered on 07/18/16 09:01; Admin Dose 5 MG; Start 06/09/16 at 09:00 Levothyroxine Sodium (Synthroid) 50 mcg DAILY@06 PO Last administered on 05:29; Admin Dose 50 MCG; Start 06/09/16 at 06:00 Rifaximin (Xifaxan) 550 mg BID PO Last administered on 07/13/16 10:20; Admin Dose 550 MG; Start 06/11/16 at 14:30; Status Future Hold Eye Lubricant (Artificial Tears Oph) 2 drop QID BOTH EYES Last administered on 07/18/16 09:04; Admin Dose 2 DROP; Start 06/12/16 at 13:00 Hydralazine HCl (Apresoline) 10 mg Q2H PRN IV SBP>170; Start 06/12/16 at 17:00 Acetaminophen (Tylenol Liquid) 650 mg Q4H PRN NGT PAIN AND OR ELEVATED TEMP Last administered on 07/13/16 05:13; Admin Dose 650 MG; Start 06/17/16 at 12:30 Febuxostat (Uloric) 40 mg DAILY PO Last administered on 07/18/16 08:59; Admin Dose 40 MG; Start 06/25/16 at 15:00 Colchicine (Colchicine) 0.6 mg TID PRN PO gout pain Last administered on 05:13; Admin Dose 0.6 MG; Start 06/25/16 at 21:00 Lorazepam (Ativan) 1 mg Q6H PRN IV ANXIETY Last administered on 07/10/16 15:31 ; Admin Dose 1 MG; Start 06/25/16 at 18:30 Metoprolol Tartrate (Lopressor) 5 mg Q4H PRN IV HR>110 Last administered on 15:37; Admin Dose 5 MG; Start 06/28/16 at 16:00 Amiodarone HCl 200 mg 200 mg BID NGT Last administered on 07/17/16 09:05; Admin Dose 200 MG; Start 06/28/16 at 21:00 Potassium Chloride/Dextrose (D5W + KCl 20 Meq) 1,000 ml @ 50 mls/hr Q20H IV Last administered on 07/18/16 09:08; Admin Dose 50 MLS/HR; Start 07/02/16 at 20: 00 IV Flush (NS 10 ml) 10 ml PRN PRN IV IV PROTOCOL Last administered on 07/17/16 20:13; Admin Dose 10 ML; Start 07/02/16 at 19:30 Tamsulosin HCl (Flomax) 0.4 mg HS PO Last administered on 07/17/16 20:13; Admin Dose 0.4 MG; Start 07/03/16 at 21:00 Miscellaneous Information 1 ea NOTE XX ; Start 07/05/16 at 20:00 Glucose (Glutose) 15 gm Q15M PRN PO DECREASED GLUCOSE; Start 07/05/16 at 20:00 Glucose (Glutose) 22.5 gm Q15M PRN PO DECREASED GLUCOSE; Start 07/05/16 at 20: 00 Dextrose (D50w Syringe) 25 ml Q15M PRN IV DECREASED GLUCOSE; Start 07/05/16 at 20:00 Dextrose (D50w Syringe) 50 ml Q15M PRN IV DECREASED GLUCOSE; Start 07/05/16 at 20:00 Glucagon (Glucagen) 1 mg Q15M PRN IM DECREASED GLUCOSE; Start 07/05/16 at 20:00 Glucose (Glutose) 15 gm Q15M PRN BUCCAL DECREASED GLUCOSE; Start 07/05/16 at 20 :00 Morphine Sulfate (morphine) 4 mg Q4H PRN IV PAIN Last administered on 07/17/16 22:27; Admin Dose 4 MG; Start 07/05/16 at 22:00 Metoprolol Tartrate 25 mg 25 mg BID PO Last administered on 07/17/16 09:06; Admin Dose 25 MG; Start 07/06/16 at 09:00 Dopamine HCl/ Dextrose 250 ml @ 7.35 mls/hr TITRATE IV ; Start 07/06/16 at 22: 00; Status Future Hold Prednisone (Prednisone) 20 mg DAILY GTB Last administered on 07/18/16 09:01; Admin Dose 20 MG; Start 07/11/16 at 09:00 Pantoprazole (Protonix Tab) 40 mg BID@06,18 PO Last administered on 07/18/16 05 :29; Admin Dose 40 MG; Start 07/10/16 at 18:00 Furosemide (Lasix) 20 mg DAILY GTB Last administered on 07/17/16 09:05; Admin Dose 20 MG; Start 07/11/16 at 11:00 Lactulose (Enulose) 20 gm DAILY PO Last administered on 07/18/16 08:59; Admin Dose 20 GM; Start 07/17/16 at 09:00 JENNIFER MORENO Jul 18, 2016 10:29
--- NOTE | 2016-07-18 13:12 | CONS ---
Date/Time of Note Date/Time of Note DATE: 07/18/16 TIME: 13:07 Assessment/Plan Assessment/Plan Chief Complaint/Hosp Course IMPRESSION: 1. Paroxysmal atrial fibrillation/atrial flutter-now SR on PO amio 2. Abnormal electrocardiogram. 3. Hypotension, now improved.-tolerating low dose BB 4. Gastrointestinal bleed.-s/p EGD with esophageal ulcers/varices s/p banding with ongoing GIB at this time 5. Cirhosis s/p banding of varices 6. Encephalopathy-ongoing 7. Anemia-worsening 8. Hyponatremia 9. Coagulopathy 10.Fever 11.PNA 12.ARF-improved 14.Hypotension-improved off pressors/stable 15.Air in wall of colon-? ischemic bowel Recc: -Tele -Continue amiodarone -BB as tolerated -Hold lasix and follow NA -No asa/systemic anti-coag secondary to anemia/GIB -Follow MS closely -Follow Hgb closely -F/U cx data and continue abx's -Continue protonix/lactulose -Ongoing surgical eval of pneumatosis Problems: Consultation Date/Type/Reason Admit Date/Time Jun 09, 2016 at 04:01 Initial Consult Date 06/09/16 Type of Consultation: Cardiology Reason for Consultation PAFL Referring Provider: MAURY BENITEZ MD Exam/Review of Systems Vital Signs Vitals Vital Signs Date Time Temp Pulse Resp B/P Pulse Ox O2 Delivery O2 Flow Rate FiO2 07/18/16 12:04 66 07/18/16 11:55 98.0 18 101/55 98 07/18/16 09:09 Room Air Intake and Output 07/17/16 07/17/16 07/18/16 15:00 23:00 07:00 Intake Total 900 ml 1250 ml Output Total 1100 ml Balance -200 ml 1250 ml Exam Review of Systems: CONSTITUTIONAL: No fevers, chills. PULMONARY: No sob CARDIOVASCULAR: No chest pain/palpitations GASTROINTESTINAL: No nausea/vomiting. GENITOURINARY: No hematuria/dysuria. MUSCULOSKELETAL: No myagias/arthalgias. PSYCHIATRIC: The patient denies depression. NEUROLOGIC: No weakness Constitutional: alert Psych: no complaints Head: normocephalic ENMT: mucosa pink and moist Neck: jvd (8 cm water), supple Respiratory: diminished breath sounds Cardiovascular: regular rate and rhythm Gastrointestinal: non-tender, soft Musculoskeletal: muscle tone (normal) Extremities: edema (none) Neurological: other (No focal deficits) Results Result Diagram: 07/17/16 0541 07/16/16 0602 Medications Medications Current Medications Ondansetron HCl (Zofran Inj) 4 mg Q6H PRN IV NAUSEA AND/OR VOMITING; Start 06/09 at 04:30 Dutasteride (Avodart) 0.5 mg AM PO Last administered on 07/18/16 08:59; Admin Dose 0.5 MG; Start 06/09/16 at 09:00 Finasteride (Proscar) 5 mg AM PO Last administered on 07/18/16 09:01; Admin Dose 5 MG; Start 06/09/16 at 09:00 Levothyroxine Sodium (Synthroid) 50 mcg DAILY@06 PO Last administered on 05:29; Admin Dose 50 MCG; Start 06/09/16 at 06:00 Rifaximin (Xifaxan) 550 mg BID PO Last administered on 07/13/16 10:20; Admin Dose 550 MG; Start 06/11/16 at 14:30; Status Future Hold Eye Lubricant (Artificial Tears Oph) 2 drop QID BOTH EYES Last administered on 07/18/16 12:07; Admin Dose 2 DROP; Start 06/12/16 at 13:00 Hydralazine HCl (Apresoline) 10 mg Q2H PRN IV SBP>170; Start 06/12/16 at 17:00 Acetaminophen (Tylenol Liquid) 650 mg Q4H PRN NGT PAIN AND OR ELEVATED TEMP Last administered on 07/13/16 05:13; Admin Dose 650 MG; Start 06/17/16 at 12:30 Febuxostat (Uloric) 40 mg DAILY PO Last administered on 07/18/16 08:59; Admin Dose 40 MG; Start 06/25/16 at 15:00 Colchicine (Colchicine) 0.6 mg TID PRN PO gout pain Last administered on 05:13; Admin Dose 0.6 MG; Start 06/25/16 at 21:00 Lorazepam (Ativan) 1 mg Q6H PRN IV ANXIETY Last administered on 07/10/16 15:31 ; Admin Dose 1 MG; Start 06/25/16 at 18:30 Metoprolol Tartrate (Lopressor) 5 mg Q4H PRN IV HR>110 Last administered on 15:37; Admin Dose 5 MG; Start 06/28/16 at 16:00 Amiodarone HCl 200 mg 200 mg BID NGT Last administered on 07/17/16 09:05; Admin Dose 200 MG; Start 06/28/16 at 21:00 Potassium Chloride/Dextrose (D5W + KCl 20 Meq) 1,000 ml @ 50 mls/hr Q20H IV Last administered on 07/18/16 09:08; Admin Dose 50 MLS/HR; Start 07/02/16 at 20: 00 IV Flush (NS 10 ml) 10 ml PRN PRN IV IV PROTOCOL Last administered on 07/17/16 20:13; Admin Dose 10 ML; Start 07/02/16 at 19:30 Tamsulosin HCl (Flomax) 0.4 mg HS PO Last administered on 07/17/16 20:13; Admin Dose 0.4 MG; Start 07/03/16 at 21:00 Miscellaneous Information 1 ea NOTE XX ; Start 07/05/16 at 20:00 Glucose (Glutose) 15 gm Q15M PRN PO DECREASED GLUCOSE; Start 07/05/16 at 20:00 Glucose (Glutose) 22.5 gm Q15M PRN PO DECREASED GLUCOSE; Start 07/05/16 at 20: 00 Dextrose (D50w Syringe) 25 ml Q15M PRN IV DECREASED GLUCOSE; Start 07/05/16 at 20:00 Dextrose (D50w Syringe) 50 ml Q15M PRN IV DECREASED GLUCOSE; Start 07/05/16 at 20:00 Glucagon (Glucagen) 1 mg Q15M PRN IM DECREASED GLUCOSE; Start 07/05/16 at 20:00 Glucose (Glutose) 15 gm Q15M PRN BUCCAL DECREASED GLUCOSE; Start 07/05/16 at 20 :00 Morphine Sulfate (morphine) 4 mg Q4H PRN IV PAIN Last administered on 07/17/16 22:27; Admin Dose 4 MG; Start 07/05/16 at 22:00 Metoprolol Tartrate 25 mg 25 mg BID PO Last administered on 07/17/16 09:06; Admin Dose 25 MG; Start 07/06/16 at 09:00 Dopamine HCl/ Dextrose 250 ml @ 7.35 mls/hr TITRATE IV ; Start 07/06/16 at 22: 00; Status Future Hold Prednisone (Prednisone) 20 mg DAILY GTB Last administered on 07/18/16 09:01; Admin Dose 20 MG; Start 07/11/16 at 09:00 Pantoprazole (Protonix Tab) 40 mg BID@06,18 PO Last administered on 07/18/16 05 :29; Admin Dose 40 MG; Start 07/10/16 at 18:00 Furosemide (Lasix) 20 mg DAILY GTB Last administered on 07/17/16 09:05; Admin Dose 20 MG; Start 07/11/16 at 11:00 Lactulose (Enulose) 20 gm DAILY PO Last administered on 07/18/16 08:59; Admin Dose 20 GM; Start 07/17/16 at 09:00 ANGELES ODONNELL Jul 18, 2016 13:11
[2016-07-18] MEDS: POLYETHYLENE GLYCOL 17 GM PACKET PO SCH (14:21)
[2016-07-18] MEDS: TAMSULOSIN (SR) 0.4 MG CAP PO SCH (20:14)
--- NOTE | 2016-07-18 20:17 | PN ---
Date/Time of Note Date/Time of Note DATE: 07/17/16 TIME: 20:15 Assessment/Plan Lines/Catheters IV Catheter Type (from [facility]): PICC Line Crandall in Place (from [facility]): No Assessment/Plan Chief Complaint/Hosp Course 1. Free air with neumatosis of portion of colon; however, completely hemodynamically at this point stable without pain, without leukocytosis, left shift, or acidosis. Discussed with multiple family members and medical team members. Doubt ischemic process at this point (?benign pneumatosis). s/p removal of 2.6L of serous fluid by paracentesis on 07/15. Tolerating diet with bowel function. -antibiotics -judicious fluids -close monitoring -if worsened, will proceed with surgical exploration despite aggie risk 2. Alcoholic and fatty liver and possible hepatitis, decompensated cirrhosis. Continue GI and medical optimization. Encourage maintenance of cessation of alcohol use. Encourage dietary and lifestyle optimization. 3. Upper gastrointestinal bleed secondary to esophageal varices secondary to cirrhosis. Transfuse as needed. Continue close monitoring and treatment per GI. 4. Anemia. Secondary to above. As above. 5. Hypertension. Continue dietary and medication optimization. 6. Hypothyroidism. Continue medical management. 7. Funguria with stool VRE with pneumonia, with sepsis. Continue antibiotics and antifungal, supportive measures, and close monitoring. 8. Hypoalbuminemia, is multifactorial. Will benefit from nutritional optimization. Thank you Late entry 07/17 Problems: Subjective 24 Hr Interval Summary Passed swallow eval and started on diet. No n/v. No f/c. No cough. No sz. No bleeding per mouth or rectum. No hickey/dizzy/visual or neuro changes. No pyuria. Feels better overall. Min pain. Bowel function. Exam/Review of Systems Vital Signs Vitals Vital Signs Date Time Temp Pulse Resp B/P Pulse Ox O2 Delivery O2 Flow Rate FiO2 07/18/16 20:08 70 07/18/16 18:00 99/56 07/18/16 15:58 98.0 18 98 07/18/16 09:09 Room Air Intake and Output 07/17/16 07/17/16 07/18/16 15:00 23:00 07:00 Intake Total 900 ml 1250 ml Output Total 1100 ml Balance -200 ml 1250 ml Exam Free Text/Dictation GENERAL: No acute distress, slightly uncomfortable, but responsive and appropriate. HEENT: Pupils equal, reactive. No scleral icterus. Mucous membranes somewhat dry. NECK: Supple, no JVD. PULMONARY: Normal respiratory effort. No wheezing. HEART: S1, S2 present. ABDOMEN: Soft, distended, no rebound, no guarding. Right lower quadrant with a hernia that is slightly tender. Not rigid. PEG in place. EXTREMITIES: With minimal edema. VASCULAR: Cap refill is 2 seconds. NEUROLOGIC: Alert, oriented, moves all 4 extremities grossly; however weak. LYMPHATICS: No palpable inguinal, cervical lymph nodes. Results Result Diagram: 07/17/16 0541 07/16/16 0602 LORENE KAT MD Jul 18, 2016 20:16
--- NOTE | 2016-07-18 20:18 | PN ---
Date/Time of Note Date/Time of Note DATE: 07/18/16 TIME: 20:16 Assessment/Plan Lines/Catheters IV Catheter Type (from [facility]): PICC Line Crandall in Place (from [facility]): No Assessment/Plan Chief Complaint/Hosp Course 1. Free air with pneumatosis of portion of colon; however, completely hemodynamically at this point stable without pain, without leukocytosis, left shift, or acidosis. Discussed with multiple family members and medical team members. Doubt ischemic process at this point (?benign pneumatosis). s/p removal of 2.6L of serous fluid by paracentesis on 07/15. Tolerating diet with bowel function. -antibiotics -judicious fluids -close monitoring -if worsened, will proceed with surgical exploration despite high risk 2. Alcoholic and fatty liver and possible hepatitis, decompensated cirrhosis. Continue GI and medical optimization. Encourage maintenance of cessation of alcohol use. Encourage dietary and lifestyle optimization. 3. Upper gastrointestinal bleed secondary to esophageal varices secondary to cirrhosis. Transfuse as needed. Continue close monitoring and treatment per GI. 4. Anemia. Secondary to above. As above. 5. Hypertension. Continue dietary and medication optimization. 6. Hypothyroidism. Continue medical management. 7. Funguria with stool VRE with pneumonia, with sepsis. Continue antibiotics and antifungal, supportive measures, and close monitoring. 8. Hypoalbuminemia, is multifactorial. Will benefit from nutritional optimization. Thank you Problems: Subjective 24 Hr Interval Summary Tolerating diet. No n/v. No f/c. No cough. No sz. No bleeding per mouth or rectum. No hickey/dizzy/visual or neuro changes. No pyuria. Min pain. Bowel function. Exam/Review of Systems Vital Signs Vitals Vital Signs Date Time Temp Pulse Resp B/P Pulse Ox O2 Delivery O2 Flow Rate FiO2 07/18/16 20:08 70 07/18/16 18:00 99/56 07/18/16 15:58 98.0 18 98 07/18/16 09:09 Room Air Intake and Output 07/17/16 07/17/16 07/18/16 15:00 23:00 07:00 Intake Total 900 ml 1250 ml Output Total 1100 ml Balance -200 ml 1250 ml Exam Free Text/Dictation GENERAL: No acute distress, slightly uncomfortable, but responsive and appropriate. HEENT: Pupils equal, reactive. No scleral icterus. Mucous membranes somewhat dry. NECK: Supple, no JVD. PULMONARY: Normal respiratory effort. No wheezing. HEART: S1, S2 present. ABDOMEN: Soft, distended, no rebound, no guarding. Right lower quadrant with a hernia that is slightly tender. Not rigid. PEG in place. EXTREMITIES: With minimal edema. VASCULAR: Cap refill is 2 seconds. NEUROLOGIC: Alert, oriented, moves all 4 extremities grossly; however weak. LYMPHATICS: No palpable inguinal, cervical lymph nodes. Results Result Diagram: 07/17/16 0541 07/16/16 0602 LORENE KAT MD Jul 18, 2016 20:18
[2016-07-19] VITALS (10 sets, daily range): BP systolic 104–122; BP diastolic 55–77; PULSE 59–78; RESP 16–20
[2016-07-19] MEDS: D5W + KCL 20 MEQ 1,000 ML IV SCH (03:27)
[2016-07-19] MEDS: morphine 4 MG/ML VIAL IV PRN (03:31)
[2016-07-19] MEDS: PANTOPRAZOLE (EC) 40 MG TAB PO SCH ×2 (05:38→17:32)
[2016-07-19] MEDS: LEVOTHYROXINE 50 MCG TAB PO SCH (05:38)
[2016-07-19] MEDS: AMIODARONE 200 MG TAB NGT SCH (09:00)
--- NOTE | 2016-07-19 10:02 | PN ---
Date/Time of Note Date/Time of Note DATE: 07/19/16 TIME: 09:44 Assessment/Plan VTE Prophylaxis VTE Prophylaxis Intervention: SCD's VTE Contraindication Reason: thrombocytopenia Lines/Catheters IV [facility]ter Type (from [facility]): PICC Line Central line still needed: Yes Urinary Cath still in place: No Assessment/Plan Chief Complaint/Hosp Course Assessment/Plan: 71-year-old male whose problems mainly stem from decompensated alcoholic cirrhosis, managed for the followin. End-stage alcoholic liver cirrhosis with coagulopathy, thrombocytopenia and varices. -Continue lactulose at once a day regimen for now - The patient really requires an outpatient liver transplant. He has been referred to [facility] to proceed with this - f/u with CM on this - Continued cessation of alcohol use daily counselled 2. Esophageal variceal bleeding. Status post EVL. - Continue to monitor electrolytes and hemoglobin levels and intervene as needed. 3. Multiple esophageal ulcers - see # 2 - monitor, f/u GI rec's 4. Paroxysmal atrial fibrillation/atrial flutter, now back in sinus rhythm/ rate controlled - continue amiodarone and beta yoan - not a candidate for anticoagulation secondary to coagulopathy. 5. Status post recurrent NSVT. 6. Status post sepsis, with septic shock secondary to [place] urinary tract infection. 7. 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 Chronic anemia associated with chronic liver disease, status post multiple transfusions. 9. Severe debility with dysphagia from prolonged hospitalization, s/p PEG placement * Patient now on oral diet / PEG feeds on hold * GI recommends keeping tube in place for now until we are sure the patient will not decompensate again. 10. Hypothyroidism. On replacement therapy. 11. 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 SBP has also been ruled out. Per gen surgery, doubt ischemic process at this point (?benign pneumatosis) . s/p removal of 2.6L of serous fluid by paracentesis on 07/15. Tolerating diet with bowel function. -antibiotics -judicious fluids -close monitoring -if worsened, will proceed with surgical exploration despite high risk 12. Benign prostatic hypertrophy with urinary retention. Patient is passing urine. - monitor Prophylaxis: SCDS / PPI DISPO PLAN: * Patient remains a 2P assist but is improving daily * Arrange for possible discharge to home in 24 hrs with home health for physical therapy and speech therapy and DME if clinically stronger * Family truly prefers home discharge but desires for him to be slightly stronger * Continue aggressive inhouse physical therapy, as we plan for outpatient placement, needs outpt [facility] liver center referral * Continue oral feeds slowly and watch closely for aspiration. * I recommend the PEG tube be left in place for now Problems: Subjective 24 Hr Interval Summary Free Text/Dictation Pt asking to go home. Worked with PT this AM. Exam/Review of Systems Vital Signs Vitals Vital Signs Date Time Temp Pulse Resp B/P Pulse Ox O2 Delivery O2 Flow Rate FiO2 07/19/16 08:00 65 07/19/16 04:00 98.1 16 110/77 98 Room Air Intake and Output 07/18/16 07/18/16 07/19/16 15:00 23:00 07:00 Intake Total 1350 ml 1000 ml Balance 1350 ml 1000 ml Exam GENERAL: AAOx3, slightly lethargic but NAD SKIN: Visibly jaundiced. HEENT: Pupils are equal, round and reactive. Positive scleral jaundice, positive conjunctival pallor. Mucous membranes are moist. Posterior pharynx is clear of exudate. NECK: Supple. CHEST: Clear, with reduced breath sounds. CARDIOVASCULAR: S1 and S2 only. No murmurs. No further abnormalities on tele monitor. ABDOMEN: Abdomen somewhat distended, but is much softer and not tender to touch. EXTREMITIES: Lower extremities are positive for bilateral edema, about 1+. NEUROLOGIC: He is much less lethargic, but without focal deficits. Results Result Diagram: 07/17/16 0541 07/16/16 0602 Medications Medications Current Medications Ondansetron HCl (Zofran Inj) 4 mg Q6H PRN IV NAUSEA AND/OR VOMITING; Start 06/09 at 04:30 Dutasteride (Avodart) 0.5 mg AM PO Last administered on 07/18/16 08:59; Admin Dose 0.5 MG; Start 06/09/16 at 09:00 Finasteride (Proscar) 5 mg AM PO Last administered on 07/18/16 09:01; Admin Dose 5 MG; Start 06/09/16 at 09:00 Levothyroxine Sodium (Synthroid) 50 mcg DAILY@06 PO Last administered on 05:29; Admin Dose 50 MCG; Start 06/09/16 at 06:00 Rifaximin (Xifaxan) 550 mg BID PO Last administered on 07/13/16 10:20; Admin Dose 550 MG; Start 06/11/16 at 14:30; Status Future Hold Eye Lubricant (Artificial Tears Oph) 2 drop QID BOTH EYES Last administered on 07/18/16 20:14; Admin Dose 2 DROP; Start 06/12/16 at 13:00 Hydralazine HCl (Apresoline) 10 mg Q2H PRN IV SBP>170; Start 06/12/16 at 17:00 Acetaminophen (Tylenol Liquid) 650 mg Q4H PRN NGT PAIN AND OR ELEVATED TEMP Last administered on 07/13/16 05:13; Admin Dose 650 MG; Start 06/17/16 at 12:30 Febuxostat (Uloric) 40 mg DAILY PO Last administered on 07/18/16 08:59; Admin Dose 40 MG; Start 06/25/16 at 15:00 Colchicine (Colchicine) 0.6 mg TID PRN PO gout pain Last administered on 05:13; Admin Dose 0.6 MG; Start 06/25/16 at 21:00 Lorazepam (Ativan) 1 mg Q6H PRN IV ANXIETY Last administered on 07/10/16 15:31 ; Admin Dose 1 MG; Start 06/25/16 at 18:30 Metoprolol Tartrate (Lopressor) 5 mg Q4H PRN IV HR>110 Last administered on 15:37; Admin Dose 5 MG; Start 06/28/16 at 16:00 Amiodarone HCl 200 mg 200 mg BID NGT Last administered on 07/18/16 20:16; Admin Dose 200 MG; Start 06/28/16 at 21:00 Potassium Chloride/Dextrose (D5W + KCl 20 Meq) 1,000 ml @ 50 mls/hr Q20H IV Last administered on 07/19/16 03:27; Admin Dose 50 MLS/HR; Start 07/02/16 at 20 :00 IV Flush (NS 10 ml) 10 ml PRN PRN IV IV PROTOCOL Last administered on 07/18/16 20:17; Admin Dose 10 ML; Start 07/02/16 at 19:30 Tamsulosin HCl (Flomax) 0.4 mg HS PO Last administered on 07/18/16 20:14; Admin Dose 0.4 MG; Start 07/03/16 at 21:00 Miscellaneous Information 1 ea NOTE XX ; Start 07/05/16 at 20:00 Glucose (Glutose) 15 gm Q15M PRN PO DECREASED GLUCOSE; Start 07/05/16 at 20:00 Glucose (Glutose) 22.5 gm Q15M PRN PO DECREASED GLUCOSE; Start 07/05/16 at 20: 00 Dextrose (D50w Syringe) 25 ml Q15M PRN IV DECREASED GLUCOSE; Start 07/05/16 at 20:00 Dextrose (D50w Syringe) 50 ml Q15M PRN IV DECREASED GLUCOSE; Start 07/05/16 at 20:00 Glucagon (Glucagen) 1 mg Q15M PRN IM DECREASED GLUCOSE; Start 07/05/16 at 20:00 Glucose (Glutose) 15 gm Q15M PRN BUCCAL DECREASED GLUCOSE; Start 07/05/16 at 20 :00 Morphine Sulfate (morphine) 4 mg Q4H PRN IV PAIN Last administered on 03:31; Admin Dose 4 MG; Start 07/05/16 at 22:00 Metoprolol Tartrate 25 mg 25 mg BID PO Last administered on 07/18/16 20:17; Admin Dose 25 MG; Start 07/06/16 at 09:00 Dopamine HCl/ Dextrose 250 ml @ 7.35 mls/hr TITRATE IV ; Start 07/06/16 at 22: 00; Status Future Hold Prednisone (Prednisone) 20 mg DAILY GTB Last administered on 07/18/16 09:01; Admin Dose 20 MG; Start 07/11/16 at 09:00 Pantoprazole (Protonix Tab) 40 mg BID@06,18 PO Last administered on 07/18/16 17 :06; Admin Dose 40 MG; Start 07/10/16 at 18:00 Furosemide (Lasix) 20 mg DAILY GTB Last administered on 07/17/16 09:05; Admin Dose 20 MG; Start 07/11/16 at 11:00; Status Future Hold Lactulose (Enulose) 20 gm DAILY PO Last administered on 07/18/16 08:59; Admin Dose 20 GM; Start 07/17/16 at 09:00 Polyethylene Glycol (Miralax) 17 gm DAILY PO Last administered on 07/18/16t 14: 21; Admin Dose 17 GM; Start 07/18/16 at 14:00 JORDIN BROWER Jul 19, 2016 09:59
[2016-07-19] MEDS ORDERED: CEFTRIAXONE 1 GM/50 ML (PMX) 50 ML IVPB SCH (10:30)
[2016-07-19 11:28] LABS: ADD SCAN DIFF NO
--- NOTE | 2016-07-19 11:30 | CONS ---
Date/Time of Note Date/Time of Note DATE: 07/19/16 TIME: 11:27 Assessment/Plan Assessment/Plan Chief Complaint/Hosp Course IMPRESSION: 1. Paroxysmal atrial fibrillation/atrial flutter-now SR on PO amio 2. Abnormal electrocardiogram. 3. Hypotension, now improved.-tolerating low dose BB 4. Gastrointestinal bleed.-s/p EGD with esophageal ulcers/varices s/p banding with ongoing GIB at this time 5. Cirhosis s/p banding of varices 6. Encephalopathy-ongoing 7. Anemia-worsening 8. Hyponatremia 9. Coagulopathy 10.Fever 11.PNA 12.ARF-improved 14.Hypotension-improved off pressors/stable 15.Air in wall of colon/pneumatosis-? ischemic bowel 16.Ascites s/p paracentesis Recc: -Tele -Continue amiodarone but decrease to daily and BB -BB as tolerated -Continue to Hold lasix and follow NA -No asa/systemic anti-coag secondary to anemia/GIB -Follow MS closely -Follow Hgb closely -F/U cx data and continue abx's -Continue protonix/lactulose -Ongoing surgical eval of pneumatosis Problems: Consultation Date/Type/Reason Admit Date/Time Jun 09, 2016 at 04:01 Initial Consult Date 06/09/16 Type of Consultation: Cardiology Reason for Consultation PAFL Referring Provider: MONTY SEARS MD Exam/Review of Systems Vital Signs Vitals Vital Signs Date Time Temp Pulse Resp B/P Pulse Ox O2 Delivery O2 Flow Rate FiO2 07/19/16 09:48 97.7 80 18 104/55 96 07/19/16 04:00 Room Air Intake and Output 07/18/16 07/18/16 07/19/16 15:00 23:00 07:00 Intake Total 1350 ml 1000 ml Balance 1350 ml 1000 ml Exam Review of Systems: CONSTITUTIONAL: No fevers, chills. PULMONARY: No sob CARDIOVASCULAR: No chest pain/palpitations GASTROINTESTINAL: No nausea/vomiting. GENITOURINARY: No hematuria/dysuria. MUSCULOSKELETAL: No myagias/arthalgias. PSYCHIATRIC: The patient denies depression. NEUROLOGIC: lethargic Constitutional: alert Psych: no complaints Head: normocephalic ENMT: mucosa pink and moist Neck: jvd (9 cm water), supple Respiratory: diminished breath sounds (at bases/B) Cardiovascular: regular rate and rhythm Gastrointestinal: non-tender, soft Musculoskeletal: muscle tone (normal) Extremities: edema (none) Neurological: other (No focal deficits) Results Result Diagram: 07/17/16 0541 07/16/16 0602 Medications Medications Current Medications Ondansetron HCl (Zofran Inj) 4 mg Q6H PRN IV NAUSEA AND/OR VOMITING; Start 06/09 at 04:30 Dutasteride (Avodart) 0.5 mg AM PO Last administered on 07/18/16 08:59; Admin Dose 0.5 MG; Start 06/09/16 at 09:00 Finasteride (Proscar) 5 mg AM PO Last administered on 07/18/16 09:01; Admin Dose 5 MG; Start 06/09/16 at 09:00 Levothyroxine Sodium (Synthroid) 50 mcg DAILY@06 PO Last administered on 05:29; Admin Dose 50 MCG; Start 06/09/16 at 06:00 Rifaximin (Xifaxan) 550 mg BID PO Last administered on 07/13/16 10:20; Admin Dose 550 MG; Start 06/11/16 at 14:30; Status Future Hold Eye Lubricant (Artificial Tears Oph) 2 drop QID BOTH EYES Last administered on 07/18/16 20:14; Admin Dose 2 DROP; Start 06/12/16 at 13:00 Hydralazine HCl (Apresoline) 10 mg Q2H PRN IV SBP>170; Start 06/12/16 at 17:00 Acetaminophen (Tylenol Liquid) 650 mg Q4H PRN NGT PAIN AND OR ELEVATED TEMP Last administered on 07/13/16 05:13; Admin Dose 650 MG; Start 06/17/16 at 12:30 Febuxostat (Uloric) 40 mg DAILY PO Last administered on 07/18/16 08:59; Admin Dose 40 MG; Start 06/25/16 at 15:00 Colchicine (Colchicine) 0.6 mg TID PRN PO gout pain Last administered on 05:13; Admin Dose 0.6 MG; Start 06/25/16 at 21:00 Lorazepam (Ativan) 1 mg Q6H PRN IV ANXIETY Last administered on 07/10/16 15:31 ; Admin Dose 1 MG; Start 06/25/16 at 18:30 Metoprolol Tartrate (Lopressor) 5 mg Q4H PRN IV HR>110 Last administered on 15:37; Admin Dose 5 MG; Start 06/28/16 at 16:00 Amiodarone HCl 200 mg 200 mg BID NGT Last administered on 07/18/16 20:16; Admin Dose 200 MG; Start 06/28/16 at 21:00 Potassium Chloride/Dextrose (D5W + KCl 20 Meq) 1,000 ml @ 50 mls/hr Q20H IV Last administered on 07/19/16 03:27; Admin Dose 50 MLS/HR; Start 07/02/16 at 20 :00 IV Flush (NS 10 ml) 10 ml PRN PRN IV IV PROTOCOL Last administered on 07/18/16 20:17; Admin Dose 10 ML; Start 07/02/16 at 19:30 Tamsulosin HCl (Flomax) 0.4 mg HS PO Last administered on 07/18/16 20:14; Admin Dose 0.4 MG; Start 07/03/16 at 21:00 Miscellaneous Information 1 ea NOTE XX ; Start 07/05/16 at 20:00 Glucose (Glutose) 15 gm Q15M PRN PO DECREASED GLUCOSE; Start 07/05/16 at 20:00 Glucose (Glutose) 22.5 gm Q15M PRN PO DECREASED GLUCOSE; Start 07/05/16 at 20: 00 Dextrose (D50w Syringe) 25 ml Q15M PRN IV DECREASED GLUCOSE; Start 07/05/16 at 20:00 Dextrose (D50w Syringe) 50 ml Q15M PRN IV DECREASED GLUCOSE; Start 07/05/16 at 20:00 Glucagon (Glucagen) 1 mg Q15M PRN IM DECREASED GLUCOSE; Start 07/05/16 at 20:00 Glucose (Glutose) 15 gm Q15M PRN BUCCAL DECREASED GLUCOSE; Start 07/05/16 at 20 :00 Morphine Sulfate (morphine) 4 mg Q4H PRN IV PAIN Last administered on 03:31; Admin Dose 4 MG; Start 07/05/16 at 22:00 Metoprolol Tartrate (Lopressor) 25 mg BID PO Last administered on 4/9/17at 20: 17; Admin Dose 25 MG; Start 07/06/16 at 09:00 Prednisone (Prednisone) 20 mg DAILY GTB Last administered on 07/18/16 09:01; Admin Dose 20 MG; Start 07/11/16 at 09:00 Pantoprazole (Protonix Tab) 40 mg BID@06,18 PO Last administered on 07/18/16 17 :06; Admin Dose 40 MG; Start 07/10/16 at 18:00 Furosemide (Lasix) 20 mg DAILY GTB Last administered on 07/17/16 09:05; Admin Dose 20 MG; Start 07/11/16 at 11:00; Status Future Hold Lactulose (Enulose) 20 gm DAILY PO Last administered on 07/18/16 08:59; Admin Dose 20 GM; Start 07/17/16 at 09:00 Polyethylene Glycol 17 gm 17 gm DAILY PO Last administered on 07/18/16 14:21; Admin Dose 17 GM; Start 07/18/16 at 14:00 Ceftriaxone Sodium (Rocephin) 50 ml @ 100 mls/hr Q24H IVPB ; Start 07/19/16 at 10:30 ANGELES ODONNELL Jul 19, 2016 11:30
[2016-07-19 11:34] LABS: ABNORMAL IP MESSAGE 1; BASOPHILS % 0.2 % (0.0-2.0); EOSINOPHILS # 0.2 10^3/ul (0.0-0.5); EOSINOPHILS % 4.1 % (0.0-7.0); HEMATOCRIT 28.4 % (42.0-52.0); HEMOGLOBIN 8.8 g/dl (14.0-18.0); LYMPHOCYTES # 0.8 10^3/ul (0.8-2.9); LYMPHOCYTES % 18.8 % (15.0-51.0); MEAN CORPUSCULAR HEMOGLOBIN 28.5 pg (29.0-33.0); MEAN CORPUSCULAR VOLUME 91.9 fl (82.0-101.0); MEAN PLATELET VOLUME 10.7 fl (7.4-10.4); MONOCYTE # 0.3 10^3/ul (0.3-0.9); MONOCYTES % 7.9 % (0.0-11.0); NEUTROPHIL # 2.9 10^3/ul (1.6-7.5); NEUTROPHILS % 68.8 % (39.0-77.0); PLATELET COUNT 71 10^3/UL (140-415); RED BLOOD COUNT 3.09 10^6/ul (4.70-6.10); RED CELL DISTRIBUTION WIDTH 20.6 % (11.5-14.5); WHITE BLOOD COUNT 4.2 10^3/ul (4.8-10.8)
[2016-07-19 11:45] LABS: POTASSIUM 3.9 mmol/L (3.5-5.1)
[2016-07-19 11:47] LABS: CREATININE 0.81 mg/dl (0.61-1.24)
[2016-07-19 11:48] LABS: CALCIUM 7.6 mg/dl (8.4-10.2)
[2016-07-19] MEDS: FEBUXOSTAT 40 MG TABLET PO SCH (12:34)
[2016-07-19] MEDS: DUTASTERIDE 0.5 MG CAP PO SCH (12:34)
[2016-07-19] MEDS: FINASTERIDE 5 MG TAB PO SCH (12:35)
[2016-07-19] MEDS: predniSONE 20 MG TAB GTB SCH (12:35)
[2016-07-19] MEDS: METOPROLOL 25 MG TAB PO SCH (12:37)
[2016-07-19] MEDS: LACTULOSE 30ML CUP PO SCH (12:38)
[2016-07-19] MEDS: POLYETHYLENE GLYCOL 17 GM PACKET PO SCH (12:38)
[2016-07-19] MEDS: ARTIFICIAL TEARS 15 ML OPH BOTH EYES SCH ×3 (12:39→17:00)
--- NOTE | 2016-07-19 16:06 | PN ---
Date/Time of Note Date/Time of Note DATE: 07/19/16 TIME: 16:00 Assessment/Plan VTE Prophylaxis VTE Prophylaxis Intervention: SCD's Lines/Catheters IV [facility] P[facility] Line Central line still needed: Yes Urinary Cath still in place: No Assessment/Plan Assessment/Plan Abdominal pain resolved Gastrostomy tube in placed(no leak) Free air in abdominal cavity + air in the bowel wall (pneumatosis intestinalis) NO CLINICAL EVIDENCE OF ACUTE INTRA-ABDOMINAL PROCESS * 07/13/2016 CT Abdomen with IV/PO contrast 1. Hepatic cirrhosis with extensive moderate ascites throughout the abdomen, and consider ultrasound correlation to exclude masses and heterogenous liver 2. Mild scattered free air greater in the non dependent right abdomen, suggesting perforation of hollow viscus. 3. Mild to moderate pneumatosis intestinalis of the cecum and right colon, and mild pneumatosis intestinalis in the transverse colon. 4 Findings compatible bowel necrosis, with mild portal venous air in the right mesentery. 5 Nonspecific mild small bowel ileus. 6 Bilateral small pleural effusions and atelectasis versus airspace disease, left greater than right * Esophageal variceal bleeding/post EVL/ rebleeding * 06/09/2016 EGD + EVL Actively bleeding esophageal varix post-endoscopic variceal ligation with cessation of bleeding. Large amounts of blood and clots in the stomach but no active bleeding or potential bleeding lesions present. The pylorus appears patent and duodenum with no lesions * 06/28/16 EGD + PEG PEG placement Esophageal ulcers with some old clots in the area, but no active bleeding. Nasogastric tube trauma present. * 07/02/2016 EGD Multiple esophageal ulcers. Post-endoscopic variceal ligation with no active bleeding but positive stigmata of recent bleeding. . Gastrostomy tube in place and in good condition. . No other bleeding site or potential bleeding site identified. * Anemia secondary to above/ Hgb stable * Alcoholic cirrhosis * Post variceal bleeding/post EVL * Portal encephalopathy/ improving * Ascites improving * Coagulopathy * Swallow evaluation passed * VRE * Shock likely due to sepsis/improved Plan continue medication follow up referral to [facility] liver transplant Subjective 24 Hr Interval Summary Free Text/Dictation * course reviewed with rn * patient seen and examined * denies any abdominal pain,tolerating diet * no g tube leak * ascitic fluid draining to colostomy bag Exam/Review of Systems Vital Signs Vitals Vital Signs Date Time Temp Pulse Resp B/P Pulse Ox O2 Delivery O2 Flow Rate FiO2 07/19/16 12:10 98.0 76 18 117/62 94 07/19/16 04:00 Room Air Intake and Output 07/18/16 07/18/16 07/19/16 15:00 23:00 07:00 Intake Total 1350 ml 1000 ml Balance 1350 ml 1000 ml Exam Constitutional: alert Psych: no complaints Respiratory: clear to auscultation Cardiovascular: nl pulses, regular rate and rhythm Gastrointestinal: ascites, bowel sounds, distended, non-tender, soft, No rebound or guarding Musculoskeletal: nl extremities to inspection Extremities: normal pulses Results Result Diagram: 07/19/16 1115 07/19/16 1115 Results 24 hrs Laboratory Tests Test 07/19/16 11:15 White Blood Count 4.2 L Red Blood Count 3.09 L Hemoglobin 8.8 L Hematocrit 28.4 L Mean Corpuscular Volume 91.9 Mean Corpuscular Hemoglobin 28.5 L Mean Corpuscular Hemoglobin Concent 31.0 L Red Cell Distribution Width 20.6 H Platelet Count 71 L Mean Platelet Volume 10.7 H Neutrophils % 68.8 Lymphocytes % 18.8 Monocytes % 7.9 Eosinophils % 4.1 Basophils % 0.2 Nucleated Red Blood Cells % 0.0 Neutrophils # 2.9 Lymphocytes # 0.8 Monocytes # 0.3 Eosinophils # 0.2 Basophils # 0.0 Nucleated Red Blood Cells # 0.0 Sodium Level 129 L Potassium Level 3.9 Chloride Level 97 Carbon Dioxide Level 25 Anion Gap 11 Blood Urea Nitrogen 7 Creatinine 0.81 Glucose Level 195 Calcium Level 7.6 L Ammonia 22 Medications Medications Current Medications Ondansetron HCl (Zofran Inj) 4 mg Q6H PRN IV NAUSEA AND/OR VOMITING; Start 06/09 at 04:30 Dutasteride (Avodart) 0.5 mg AM PO Last administered on 07/19/16 12:34; Admin Dose 0.5 MG; Start 06/09/16 at 09:00 Finasteride (Proscar) 5 mg AM PO Last administered on 07/19/16 12:35; Admin Dose 5 MG; Start 06/09/16 at 09:00 Levothyroxine Sodium (Synthroid) 50 mcg DAILY@06 PO Last administered on 05:29; Admin Dose 50 MCG; Start 06/09/16 at 06:00 Rifaximin (Xifaxan) 550 mg BID PO Last administered on 07/13/16 10:20; Admin Dose 550 MG; Start 06/11/16 at 14:30; Status Future Hold Eye Lubricant (Artificial Tears Oph) 2 drop QID BOTH EYES Last administered on 07/19/16 13:09; Admin Dose 2 DROP; Start 06/12/16 at 13:00 Hydralazine HCl (Apresoline) 10 mg Q2H PRN IV SBP>170; Start 06/12/16 at 17:00 Acetaminophen (Tylenol Liquid) 650 mg Q4H PRN NGT PAIN AND OR ELEVATED TEMP Last administered on 07/13/16 05:13; Admin Dose 650 MG; Start 06/17/16 at 12:30 Febuxostat (Uloric) 40 mg DAILY PO Last administered on 07/19/16 12:34; Admin Dose 40 MG; Start 06/25/16 at 15:00 Colchicine (Colchicine) 0.6 mg TID PRN PO gout pain Last administered on 05:13; Admin Dose 0.6 MG; Start 06/25/16 at 21:00 Lorazepam (Ativan) 1 mg Q6H PRN IV ANXIETY Last administered on 07/10/16 15:31 ; Admin Dose 1 MG; Start 06/25/16 at 18:30 Metoprolol Tartrate 5 mg 5 mg Q4H PRN IV HR>110 Last administered on 06/28/16 15:37; Admin Dose 5 MG; Start 06/28/16 at 16:00 Potassium Chloride/Dextrose (D5W + KCl 20 Meq) 1,000 ml @ 50 mls/hr Q20H IV Last administered on 07/19/16 03:27; Admin Dose 50 MLS/HR; Start 07/02/16 at 20 :00 IV Flush (NS 10 ml) 10 ml PRN PRN IV IV PROTOCOL Last administered on 07/18/16 20:17; Admin Dose 10 ML; Start 07/02/16 at 19:30 Tamsulosin HCl (Flomax) 0.4 mg HS PO Last administered on 07/18/16 20:14; Admin Dose 0.4 MG; Start 07/03/16 at 21:00 Miscellaneous Information 1 ea NOTE XX ; Start 07/05/16 at 20:00 Glucose (Glutose) 15 gm Q15M PRN PO DECREASED GLUCOSE; Start 07/05/16 at 20:00 Glucose (Glutose) 22.5 gm Q15M PRN PO DECREASED GLUCOSE; Start 07/05/16 at 20: 00 Dextrose (D50w Syringe) 25 ml Q15M PRN IV DECREASED GLUCOSE; Start 07/05/16 at 20:00 Dextrose (D50w Syringe) 50 ml Q15M PRN IV DECREASED GLUCOSE; Start 07/05/16 at 20:00 Glucagon (Glucagen) 1 mg Q15M PRN IM DECREASED GLUCOSE; Start 07/05/16 at 20:00 Glucose (Glutose) 15 gm Q15M PRN BUCCAL DECREASED GLUCOSE; Start 07/05/16 at 20 :00 Morphine Sulfate (morphine) 4 mg Q4H PRN IV PAIN Last administered on 03:31; Admin Dose 4 MG; Start 07/05/16 at 22:00 Metoprolol Tartrate (Lopressor) 25 mg BID PO Last administered on 07/19/16 12: 37; Admin Dose 25 MG; Start 07/06/16 at 09:00 Prednisone (Prednisone) 20 mg DAILY GTB Last administered on 07/19/16 12:35; Admin Dose 20 MG; Start 07/11/16 at 09:00 Pantoprazole (Protonix Tab) 40 mg BID@06,18 PO Last administered on 07/18/16 17 :06; Admin Dose 40 MG; Start 07/10/16 at 18:00 Furosemide (Lasix) 20 mg DAILY GTB Last administered on 07/17/16 09:05; Admin Dose 20 MG; Start 07/11/16 at 11:00; Status Future Hold Lactulose (Enulose) 20 gm DAILY PO Last administered on 07/19/16 12:38; Admin Dose 20 GM; Start 07/17/16 at 09:00 Polyethylene Glycol 17 gm 17 gm DAILY PO Last administered on 07/19/16 12:38; Admin Dose 17 GM; Start 07/18/16 at 14:00 Ceftriaxone Sodium (Rocephin) 50 ml @ 100 mls/hr Q24H IVPB Last administered on 07/19/16 12:38; Admin Dose 100 MLS/HR; Start 07/19/16 at 10:30 Amiodarone HCl (Cordarone) 200 mg DAILY NGT Last administered on 07/19/16 12: 35; Admin Dose 200 MG; Start 07/20/16 at 09:00 JAC DAVIS MD Jul 19, 2016 16:06
--- NOTE | 2016-07-19 16:24 | CONS ---
Date/Time of Note Date/Time of Note DATE: 07/19/16 TIME: 16:20 Assessment/Plan Assessment/Plan Chief Complaint/Hosp Course Anemia - COMPLEX, MULTIFACTORIAL WITH COMPONENT ACD, ACUTE BLOOD LOSS AND SEVERE IRON DEFICIENCY IN THE PAST * Esophageal variceal bleeding * CONT TO MONITOR BLOOD COUNT CLOSELY * OBSERVE FOR BLEEDING AND HEMOLYSIS * PRBC NEEDED Alcoholic cirrhosis Portal encephalopathy Ascites Coagulopathy- CORRECT NEEDED End-stage alcoholic liver cirrhosis with coagulopathy, thrombocytopenia and varices. -Continue lactulose at once a day regimen for now - The patient really requires an outpatient liver transplant. He has been referred to [facility] to proceed with this - f/u with CM on this - Continued cessation of alcohol use daily counselled Esophageal variceal bleeding. Status post EVL. - Continue to monitor electrolytes and hemoglobin levels and intervene as needed. Multiple esophageal ulcers - see # 2 - monitor, f/u GI rec's Paroxysmal atrial fibrillation/atrial flutter, now back in sinus rhythm/rate controlled - continue amiodarone and beta yoan - not a candidate for anticoagulation secondary to coagulopathy. Status post recurrent NSVT. Status post sepsis, with septic shock secondary to Dorina urinary tract infection. Status post hepatic encephalopathy secondary to cirrhosis and alcohol abuse - more alert - lactulose, monitor Chronic anemia associated with chronic liver disease, status post multiple transfusions. Severe debility with dysphagia from prolonged hospitalization, s/p PEG placement * Patient now on oral diet / PEG feeds on hold * GI recommends keeping tube in place for now until we are sure the patient will not decompensate again. Hypothyroidism. On replacement therapy. 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 SBP has also been ruled out. Per gen surgery, doubt ischemic process at this point (?benign pneumatosis). s/ p removal of 2.6L of serous fluid by paracentesis on 07/15. Tolerating diet with bowel function. -antibiotics -judicious fluids -close monitoring -if worsened, will proceed with surgical exploration despite high risk Benign prostatic hypertrophy with urinary retention. Patient is passing urine. - monitor Problems: Consultation Date/Type/Reason Admit Date/Time Jun 09, 2016 at 04:01 Initial Consult Date 06/09/16 Type of Consultation: [facility] Referring Provider: MONTY SEARS MD 24 HR Interval Summary Free Text/Dictation ALL NOTED COUNT STABLE NO BLEEDING denies any abdominal pain,tolerating diet no g tube leak ascitic fluid draining to colostomy bag Exam/Review of Systems Vital Signs Vitals Vital Signs Date Time Temp Pulse Resp B/P Pulse Ox O2 Delivery O2 Flow Rate FiO2 07/19/16 16:00 59 07/19/16 12:10 98.0 18 117/62 94 07/19/16 04:00 Room Air Intake and Output 07/18/16 07/18/16 07/19/16 15:00 23:00 07:00 Intake Total 1350 ml 1000 ml Balance 1350 ml 1000 ml Exam SKIN: Visibly jaundiced. HEENT: Head is normocephalic. Pupils are equal, round and reactive. Positive scleral jaundice, positive conjunctival pallor. Mucous membranes are moist. Posterior pharynx is clear of exudate. NECK: Supple. CHEST: Clear, with reduced breath sounds. CARDIOVASCULAR: S1 and S2 only. No murmurs. No further abnormalities on tele monitor. ABDOMEN: Abdomen remains distended, but is much softer and not tender to touch. The paracentesis site continues to ooze yellowish ascitic fluid. We have a colostomy bag over it to collect fluid. EXTREMITIES: Lower extremities are positive for bilateral edema, about 1+. NEUROLOGIC: He is lethargic, but without focal deficits. Results Result Diagram: 07/19/16 1115 07/19/16 1115 Results 24 hrs Laboratory Tests Test 07/19/16 11:15 White Blood Count 4.2 L Red Blood Count 3.09 L Hemoglobin 8.8 L Hematocrit 28.4 L Mean Corpuscular Volume 91.9 Mean Corpuscular Hemoglobin 28.5 L Mean Corpuscular Hemoglobin Concent 31.0 L Red Cell Distribution Width 20.6 H Platelet Count 71 L Mean Platelet Volume 10.7 H Neutrophils % 68.8 Lymphocytes % 18.8 Monocytes % 7.9 Eosinophils % 4.1 Basophils % 0.2 Nucleated Red Blood Cells % 0.0 Neutrophils # 2.9 Lymphocytes # 0.8 Monocytes # 0.3 Eosinophils # 0.2 Basophils # 0.0 Nucleated Red Blood Cells # 0.0 Sodium Level 129 L Potassium Level 3.9 Chloride Level 97 Carbon Dioxide Level 25 Anion Gap 11 Blood Urea Nitrogen 7 Creatinine 0.81 Glucose Level 195 Calcium Level 7.6 L Ammonia 22 Medications Medications Current Medications Ondansetron HCl (Zofran Inj) 4 mg Q6H PRN IV NAUSEA AND/OR VOMITING; Start 06/09 at 04:30 Dutasteride (Avodart) 0.5 mg AM PO Last administered on 07/19/16 12:34; Admin Dose 0.5 MG; Start 06/09/16 at 09:00 Finasteride (Proscar) 5 mg AM PO Last administered on 07/19/16 12:35; Admin Dose 5 MG; Start 06/09/16 at 09:00 Levothyroxine Sodium (Synthroid) 50 mcg DAILY@06 PO Last administered on 05:29; Admin Dose 50 MCG; Start 06/09/16 at 06:00 Rifaximin (Xifaxan) 550 mg BID PO Last administered on 07/13/16 10:20; Admin Dose 550 MG; Start 06/11/16 at 14:30; Status Future Hold Eye Lubricant (Artificial Tears Oph) 2 drop QID BOTH EYES Last administered on 07/19/16 13:09; Admin Dose 2 DROP; Start 06/12/16 at 13:00 Hydralazine HCl (Apresoline) 10 mg Q2H PRN IV SBP>170; Start 06/12/16 at 17:00 Acetaminophen (Tylenol Liquid) 650 mg Q4H PRN NGT PAIN AND OR ELEVATED TEMP Last administered on 07/13/16 05:13; Admin Dose 650 MG; Start 06/17/16 at 12:30 Febuxostat (Uloric) 40 mg DAILY PO Last administered on 07/19/16 12:34; Admin Dose 40 MG; Start 06/25/16 at 15:00 Colchicine (Colchicine) 0.6 mg TID PRN PO gout pain Last administered on 05:13; Admin Dose 0.6 MG; Start 06/25/16 at 21:00 Lorazepam (Ativan) 1 mg Q6H PRN IV ANXIETY Last administered on 07/10/16 15:31 ; Admin Dose 1 MG; Start 06/25/16 at 18:30 Metoprolol Tartrate 5 mg 5 mg Q4H PRN IV HR>110 Last administered on 06/28/16 15:37; Admin Dose 5 MG; Start 06/28/16 at 16:00 Potassium Chloride/Dextrose (D5W + KCl 20 Meq) 1,000 ml @ 50 mls/hr Q20H IV Last administered on 07/19/16 03:27; Admin Dose 50 MLS/HR; Start 07/02/16 at 20 :00 IV Flush (NS 10 ml) 10 ml PRN PRN IV IV PROTOCOL Last administered on 07/18/16 20:17; Admin Dose 10 ML; Start 07/02/16 at 19:30 Tamsulosin HCl (Flomax) 0.4 mg HS PO Last administered on 07/18/16 20:14; Admin Dose 0.4 MG; Start 07/03/16 at 21:00 Miscellaneous Information 1 ea NOTE XX ; Start 07/05/16 at 20:00 Glucose (Glutose) 15 gm Q15M PRN PO DECREASED GLUCOSE; Start 07/05/16 at 20:00 Glucose (Glutose) 22.5 gm Q15M PRN PO DECREASED GLUCOSE; Start 07/05/16 at 20: 00 Dextrose (D50w Syringe) 25 ml Q15M PRN IV DECREASED GLUCOSE; Start 07/05/16 at 20:00 Dextrose (D50w Syringe) 50 ml Q15M PRN IV DECREASED GLUCOSE; Start 07/05/16 at 20:00 Glucagon (Glucagen) 1 mg Q15M PRN IM DECREASED GLUCOSE; Start 07/05/16 at 20:00 Glucose (Glutose) 15 gm Q15M PRN BUCCAL DECREASED GLUCOSE; Start 07/05/16 at 20 :00 Morphine Sulfate (morphine) 4 mg Q4H PRN IV PAIN Last administered on 03:31; Admin Dose 4 MG; Start 07/05/16 at 22:00 Metoprolol Tartrate (Lopressor) 25 mg BID PO Last administered on 07/19/16 12: 37; Admin Dose 25 MG; Start 07/06/16 at 09:00 Prednisone (Prednisone) 20 mg DAILY GTB Last administered on 07/19/16 12:35; Admin Dose 20 MG; Start 07/11/16 at 09:00 Pantoprazole (Protonix Tab) 40 mg BID@06,18 PO Last administered on 07/18/16 17 :06; Admin Dose 40 MG; Start 07/10/16 at 18:00 Furosemide (Lasix) 20 mg DAILY GTB Last administered on 07/17/16 09:05; Admin Dose 20 MG; Start 07/11/16 at 11:00; Status Future Hold Lactulose (Enulose) 20 gm DAILY PO Last administered on 07/19/16 12:38; Admin Dose 20 GM; Start 07/17/16 at 09:00 Polyethylene Glycol 17 gm 17 gm DAILY PO Last administered on 07/19/16 12:38; Admin Dose 17 GM; Start 07/18/16 at 14:00 Ceftriaxone Sodium (Rocephin) 50 ml @ 100 mls/hr Q24H IVPB Last administered on 07/19/16 12:38; Admin Dose 100 MLS/HR; Start 07/19/16 at 10:30 Amiodarone HCl (Cordarone) 200 mg DAILY NGT Last administered on 07/19/16 12: 35; Admin Dose 200 MG; Start 07/20/16 at 09:00 FAYE RUSHING MD Jul 19, 2016 16:24
--- NOTE | 2016-07-19 16:44 | PDOCDIS ---
Discharge Instructions CONDITION Patient Condition: Stable HOME CARE INSTRUCTIONS: Special Diet: SOFT DIET ACTIVITY: Activity Restrictions: Slowly Increase Activity FOLLOW UP/APPOINTMENTS Appointments Please take your medeications as prescribed, and see your doctor in the clinic in 1 week. JORDIN BROWER Jul 19, 2016 16:43
[2016-07-19] MEDS ORDERED: PANT40TA4 PO (16:48)
[2016-07-19] MEDS ORDERED: AMIO200T2 NGT (16:48)
[2016-07-19] MEDS ORDERED: PRED5 PO (16:48)
[2016-07-19] MEDS ORDERED: Lactulose PO (16:48)
[2016-07-19] MEDS ORDERED: POLY17PO6 PO (16:48)
[2016-07-19] MEDS ORDERED: PRED10TA PO (16:48)
[2016-07-19] MEDS ORDERED: METO-448 PO (16:48)
--- NOTE | 2016-07-19 17:36 | PN ---
DATE: 07/19/2016 SUBJECTIVE: Patient is alert, feels good, looks comfortable. Son at bedside. No fevers. LABORATORY: WBC 4.2, no shift, no bands. BUN 7, creatinine 0.81. MICROBIOLOGY: Ascitic fluid growing alpha hemolytic strep species and Corynebacterium species. INDWELLINGS: Left upper extremity PICC line. ANTIMICROBIALS: We started him on Rocephin this morning. PHYSICAL EXAMINATION: GENERAL: This is well-developed, elderly man who is alert, in no distress. HEENT: Head atraumatic, normocephalic. Sclerae anicteric. Buccal mucosa pink. NECK: Supple. CHEST: Rise symmetrical. Breath sounds clear. HEART: S1, S2. ABDOMEN: Distended, soft. Bowel tones present. EXTREMITIES: Bilateral trace edema. ASSESSMENT: 1. Spontaneous bacterial peritonitis with ascitic fluid cultures growing strep and coagulase-negati ve staph species, covered with Rocephin. 2. Status post hepatic encephalopathy. 3. Liver cirrhosis. 4. Anemia with thrombocytopenia 5. Status post urinary tract infection. 6. Anemia, status post gastrointestinal bleeding. 7. History of familial Mediterranean fever. 8. Gout. PLAN: The patient remains stable. We are going to continue him on Rocephin for 2 weeks. Patient i s being followed by multiple consultants, we will follow their recommendations. Above was discussed with patient and his son at bedside. Above was discussed with Dr. Mancuso who [facility]. Dictated By: STACIE TAMEZ BIZTALK SOFTWARE DEVELOPER for [employer]RICK Conf#: [id number] DID#: [id number]
--- NOTE | 2016-07-19 17:46 | DS ---
DATE OF ADMISSION: 06/09/2016 DATE OF DISCHARGE: 07/19/2016 This is a 71-year-old male originally admitted on 06/09/2016 being discharged home on 07/19/2016. HOSPITAL COURSE: The patient initially came in with upper GI bleeding. He was seen by multiple spe cialists during this hospital stay including GI team, renal team, neurology team and cardiology team , infectious disease team, hematology/oncology team and ended up having a variceal ligation performe d with cessation of bleeding after there was actively bleeding esophageal varices found. Patient to lerated procedure well. He ended up having a PEG tube placement as well as he also had multiple eso phageal ulcers with some old clots in the area as well. The patient tolerated tube feedings initial ly, but eventually by the time of discharge, he was able tolerate simple p.o. intake but we decided to keep the G-tube in just because the patient needs to be further monitored regarding his follow u p function as an outpatient. Regarding his upper GI bleeding again after the EGDs were performed an d ligation performed, his hemoglobin remained stable. He did require blood transfusion during the h ospital stay. He worked with physical therapy as well. He was able to tolerate a p.o. diet. He wa s also treated for paroxysmal atrial fibrillation and atrial flutter by cardiology team and was plac ed on amiodarone p.o. and beta yoan as well, which helped control his heart rate. His Lasix was held as well. He also had a paracentesis performed due to his end-stage liver disease and ascites fluid and 2.6 liters of fluid was removed on 07/15/2016. The patient has been ambulating well, tole rating a p.o. diet has been cleared by sales development consultant team to be discharged home today. His heart rate was stable as well. He is having no more upper GI bleeding episodes as well. He is also on lactulo se for his end-stage liver disease with cirrhosis as well. He has been getting counseling for cessa tion of alcohol use. He is being referred to [facility] as an outpatient for possible liver transplant. He will follow up with them as an outpatient as well. He did have some pneumatosis intestinalis con cerning for ischemic bowel but he was evaluated by the surgery team as well and it was doubtful to b andi thought an ischemic process at this point. He was continued on antibiotics as well and he is tole rating diet with bowel function. He was also found with a positive ascitic fluid cultures of alpha lytic hemolytic strep infection of corynebacterium species and per recommendations of ____, he w as placed on IV Rocephin, which he will take at home as well. He will be discharged home today in i mproved condition with Rocephin 1 gram IV daily for 14 more days, prednisone 10 mg p.o. daily for 2 days, then 5 mg p.o. daily and discontinued. DISCHARGE MEDICATIONS: 1. Lactulose 20 grams daily. 2. MiraLax 17 grams daily. 3. Protonix 40 mg b.i.d. 4. Lopressor 25 mg b.i.d. 5. Amiodarone 200 mg daily. 6. Acyclovir 800 mg q.i.d. 7. Betacarotene 110,000 units t.i.d. 7. Colchicine 0.6 mg b.i.d. 8. Avodart 0.5 mg p.o. q.a.m. 9. Echinacea 167 mg b.i.d. 9. Finasteride 5 mg q. morning. 10. Levothyroxine 50 mcg q. morning. 11. Claritin 10 mg daily p.r.n. 12. Magnesium tablet 250 mg q.a.m. 13. Pyridium 100 mg p.o. p.r.n. painful urination. 14. Rapaflo 8 mg q. a.m. He will need to follow up with hematology/oncology team and GI team. Again [facility] outpatient liver t ransplant team and general surgery team in the clinic in the next 1 to 2 weeks. FINAL DIAGNOSES: 1. Upper gastrointestinal bleed, status post esophageal variceal ligation after being found with es ophageal varices and with PEG tube placement. 2. End-stage liver disease with coagulopathy and thrombocytopenia on lactulose presently stable. A waiting outpatient followup with [facility] for possible liver transplant. 3. History of alcoholic disease. Counseling on cessation of alcohol use. 4. Paroxysmal atrial fibrillation, aflutter, now rate controlled on amiodarone and beta yoan. 5. Septic shock secondary to Dorina urinary tract infection, now improved with antibiotic treatmen t. 6. Hepatic encephalopathy secondary to end-stage liver disease, on lactulose. 7. Chronic anemia associated chronic liver disease, status post multiple blood transfusions this ad mission, now stable hemoglobin. 8. Severe debility with dysphagia from prolonged hospitalization status post PEG placement, now kaycee erating oral diet. PEG tube still in place. 9. Hypothyroidism. 10. Pneumatosis intestinalis stable for general surgery recommendations. 11. Benign prostatic hypertrophy. 12. Positive alpha hemolytic strep and corynebacterium species. 13. Ascitic fluid infection on Rocephin antibiotics for 2 more weeks. Time spent discharging patient 1 hour and 10 minutes. Dictated By: JORDIN LUIS Conf#: [id number] DID#: [id number]
--- NOTE | 2016-07-19 18:11 | PN ---
Date/Time of Note Date/Time of Note DATE: 07/19/16 TIME: 18:10 Assessment/Plan Lines/Catheters IV Catheter Type (from [facility]): PICC Line Crandall in Place (from [facility]): No Assessment/Plan Chief Complaint/Hosp Course 1. Free air with pneumatosis of portion of colon; however, completely hemodynamically at this point stable without pain, without leukocytosis, left shift, or acidosis. Discussed with multiple family members and medical team members. Doubt ischemic process at this point (?benign pneumatosis). s/p removal of 2.6L of serous fluid by paracentesis on 07/15. Tolerating diet with bowel function. +Cx. -antibiotics 2. Alcoholic and fatty liver and possible hepatitis, decompensated cirrhosis. Continue GI and medical optimization. Encourage maintenance of cessation of alcohol use. Encourage dietary and lifestyle optimization. 3. Upper gastrointestinal bleed secondary to esophageal varices secondary to cirrhosis. Transfuse as needed. Continue close monitoring and treatment per GI. 4. Anemia. Secondary to above. As above. 5. Hypertension. Continue dietary and medication optimization. 6. Hypothyroidism. Continue medical management. 7. Funguria with stool VRE with pneumonia, with sepsis. Continue antibiotics and antifungal, supportive measures, and close monitoring. 8. Hypoalbuminemia, is multifactorial. Will benefit from nutritional optimization. Thank you Problems: Subjective 24 Hr Interval Summary Tolerating diet. No n/v. No f/c. No cough. No sz. No bleeding per mouth or rectum. No hickey/dizzy/visual or neuro changes. No pyuria. Min pain. Bowel function. +Cx of peritoneal fluid. Exam/Review of Systems Vital Signs Vitals Vital Signs Date Time Temp Pulse Resp B/P Pulse Ox O2 Delivery O2 Flow Rate FiO2 07/19/16 16:30 98.3 58 18 122/71 94 07/19/16 04:00 Room Air Intake and Output 07/18/16 07/18/16 07/19/16 15:00 23:00 07:00 Intake Total 1350 ml 1000 ml Balance 1350 ml 1000 ml Exam Free Text/Dictation GENERAL: No acute distress, slightly uncomfortable, but responsive and appropriate. HEENT: Pupils equal, reactive. No scleral icterus. Mucous membranes somewhat dry. NECK: Supple, no JVD. PULMONARY: Normal respiratory effort. No wheezing. HEART: S1, S2 present. ABDOMEN: Soft, distended, no rebound, no guarding. Right lower quadrant with a hernia that is slightly tender. Not rigid. PEG in place. EXTREMITIES: With minimal edema. VASCULAR: Cap refill is 2 seconds. NEUROLOGIC: Alert, oriented, moves all 4 extremities grossly; however weak. LYMPHATICS: No palpable inguinal, cervical lymph nodes. Results Result Diagram: 07/19/16 1115 07/19/16 1115 LORENE KAT MD Jul 19, 2016 18:11
[2016-07-20] MEDS ORDERED: AMIODARONE 200 MG TAB NGT SCH (09:00)
== END 2016-07-19 21:30 | disposition home health service (06) | DRG 432 ==
LOC: E/R 00:05 → ICU 04:01 → MS4 06-21 13:18 → ICU 06-29 23:10 → TEL 07-09 05:08
PROVIDERS: ADMIT Internal Medicine; ATTEND Internal Medicine
PROC: 5A1955Z Respiratory Ventilation, Greater than 96 Consecutive Hours (ICD-10-PCS; 2016-06-09)
PROC: 30233N1 Transfusion of Nonautologous Red Blood Cells into Peripheral Vein, Percutaneous Approach (ICD-10-PCS; 2016-06-09)
PROC: 30233K1 Transfusion of Nonautologous Frozen Plasma into Peripheral Vein, Percutaneous Approach (ICD-10-PCS; 2016-06-09)
PROC: 02H633Z Insertion of Infusion Device into Right Atrium, Percutaneous Approach (ICD-10-PCS; 2016-06-09)
PROC: 0BH17EZ Insertion of Endotracheal Airway into Trachea, Via Natural or Artificial Opening (ICD-10-PCS; 2016-06-09)
PROC: 06L34CZ Occlusion of Esophageal Vein with Extraluminal Device, Percutaneous Endoscopic Approach (ICD-10-PCS; principal; 2016-06-09 05:30)
PROC: 0DH63UZ Insertion of Feeding Device into Stomach, Percutaneous Approach (ICD-10-PCS; 2016-06-28)
PROC: 0W9G3ZZ Drainage of Peritoneal Cavity, Percutaneous Approach (ICD-10-PCS; 2016-07-01)
PROC: 02H633Z Insertion of Infusion Device into Right Atrium, Percutaneous Approach (ICD-10-PCS; 2016-07-02)
PROC: 0DJ08ZZ Inspection of Upper Intestinal Tract, Via Natural or Artificial Opening Endoscopic (ICD-10-PCS; 2016-07-02)
PROC: 0W9G3ZZ Drainage of Peritoneal Cavity, Percutaneous Approach (ICD-10-PCS; 2016-07-15)
DX: K70.31 Alcoholic cirrhosis of liver with ascites (principal); I85.11 Secondary esophageal varices with bleeding; J69.0 Pneumonitis due to inhalation of food and vomit; R65.21 Severe sepsis with septic shock; J96.01 Acute respiratory failure with hypoxia; A41.9 Sepsis, unspecified organism; G92 Toxic encephalopathy; G93.1 Anoxic brain damage, not elsewhere classified; I95.9 Hypotension, unspecified; K22.11 Ulcer of esophagus with bleeding; N17.9 Acute kidney failure, unspecified; E87.0 Hyperosmolality and hypernatremia; E87.2 Acidosis; D62 Acute posthemorrhagic anemia; I48.92 Unspecified atrial flutter; K76.6 Portal hypertension; B37.49 Other urogenital candidiasis; D68.4 Acquired coagulation factor deficiency; K56.7 Ileus, unspecified; R17 Unspecified jaundice; K92.0 Hematemesis; K92.1 Melena; E03.9 Hypothyroidism, unspecified; D50.9 Iron deficiency anemia, unspecified; I48.0 Paroxysmal atrial fibrillation; Z87.891 Personal history of nicotine dependence; J44.9 Chronic obstructive pulmonary disease, unspecified; F10.21 Alcohol dependence, in remission; G47.33 Obstructive sleep apnea (adult) (pediatric); I12.9 Hypertensive chronic kidney disease with stage 1 through stage 4 chronic kidney disease, or unspecified chronic kidney disease; N18.9 Chronic kidney disease, unspecified; I48.91 Unspecified atrial fibrillation; R13.10 Dysphagia, unspecified; D63.8 Anemia in other chronic diseases classified elsewhere; D69.6 Thrombocytopenia, unspecified; K63.89 Other specified diseases of intestine; R19.7 Diarrhea, unspecified; K70.40 Alcoholic hepatic failure without coma; M10.9 Gout, unspecified; B95.4 Other streptococcus as the cause of diseases classified elsewhere; B96.89 Other specified bacterial agents as the cause of diseases classified elsewhere; M04.1 Periodic fever syndromes; B95.2 Enterococcus as the cause of diseases classified elsewhere; Z16.21 Resistance to vancomycin; R14.0 Abdominal distension (gaseous); E88.09 Other disorders of plasma-protein metabolism, not elsewhere classified; N40.1 Benign prostatic hyperplasia with lower urinary tract symptoms; R33.8 Other retention of urine
CPT/HCPCS: 31500; 36415; 36430; 36569; 36600; 70450; 71010; 74000; 74176; 74177; 76705; 76775; 76937; 78278; 80048; 80053; 80076; 80202; 81001; 81003; 82140; 82570; 82803; 82947; 82962; 83540; 83605; 83615; 83690; 83735; 84100; 84132; 84155; 84165; 84300; 84439; 84443; 84484; 85014; 85018; 85025; 85049; 85362; 85378; 85384; 85610; 85670; 85730; 86644; 86704; 86709; 86803; 86850; 86900; 86901; 86920; 87040; 87045; 87070; 87075; 87081; 87086; 87102; 87116; 87340; 88104; 88305; 89050; 92526; 92610; 93005; 93306; 94002; 94003; 94640; 94664; 94770; 95819; 96365; 96366; 96368; 96375; 97116; 97162; 97530; J1120; J1940; A9560; C1769; C9113; J0282; J0330; J0360; J0690; J0692; J0696; J1265; J1815; J2060; J2185; J2250; J2270; J2354; J2370; J2405; J2765; J2916; J2997; J3010; J3370; J3475; J3480; J7030; J7040; J7042; J7050; J7060; J7070; J7512; P9016; P9047; P9059; Q9967

== ENCOUNTER 2016-07-24 00:09 | Emergency (ER) | payer MEDICARE, OTHER ==
[~2016-07-24] VITALS: Ht 167.6 cm; Wt 100.0 kg
[~2016-07-24 00:09] MED LIST changes: +AMIO200T2 NGT; -LISI2.5T59 PO; +Lactulose PO; +METO-448 PO; +PANT40TA4 PO; +POLY17PO6 PO; +PRED10TA PO; +PRED5 PO
[2016-07-24 00:17] VITALS: Ht 167.6 cm; Wt 100.0 kg
--- NOTE | 2016-07-24 00:29 | ERA ---
ER Documentation Chief Complaint Date/Time DATE: 07/24/16 TIME: 00:29 Chief Complaint abd distended HPI The patient is a 71-year-old male, presenting to the ER because of recurrent ascites. He was discharged 4 days ago and currently taking antibiotic for ascites fluid infection. He was supposed to have abdominocentesis prior to discharge 4 days ago, however he did not have it. He denies fever, chills, neck pain, chest pain, dyspnea, nausea, vomiting. He complains of constipation. He does not smoke he used to drink until recently. He also complained of small penile wart Past medical history: End-stage liver disease, history of ascites, hypothyroidism, hypertension, paroxysmal atrial fibrillation, history of alcohol abuse, anemia, BPH Past surgical history: Esophageal varices ligation, PEG tube, ventral herniorrhaphy, appendectomy ROS All systems reviewed and are negative except as per history of present illness. Medications Home Meds Active Scripts Prednisone* (Prednisone*) 5 Mg Tab, 5 MG PO DAILY for 2 Days, TAB Prov:JORDIN BROWER S. 07/19/16 Prednisone* (Prednisone*) 10 Mg Tab, 10 MG PO DAILY for 2 Days, TAB Prov:JORDIN BROWER S. 07/19/16 Pantoprazole* (Pantoprazole*) 40 Mg Tablet.dr, 40 MG PO BID@, #60 2 Refills Prov:JORDIN BROWER S. 07/19/16 Polyethylene Glycol* (Miralax*) 17 Gm Powd.pack, 17 GM PO DAILY for 30 Days, 1 Refill Prov:JORDIN BROWER S. 07/19/16 [Lactulose] 20 GM/30 ML SOLN No Conflict Check, 20 GM PO DAILY for 30 Days, 1 Refill Prov:JORDIN BROWER S. 07/19/16 Metoprolol Tartrate* (Lopressor*) 25 Mg Tab, 25 MG PO BID, #60 TAB 1 Refill Prov:JORDIN BROWER S. 07/19/16 Amiodarone Hcl* (Amiodarone Hcl*) 200 Mg Tablet, 200 MG NGT DAILY for 30 Days, TAB 1 Refill Prov:JORDIN BROWER S. 07/19/16 Reported Medications Magnesium (Magnesium) 250 Mg Tablet, 250 MG PO AM 2//12 [Pruna Lax Laxitive] No Conflict Check 05/14/11 Echinacea* (Echinacea*) 167 Mg Tablet, 167 MG PO BID 05/14/11 Beta-Carotene (Beta Carotene) 10,000 Unit Capsule, 81178 UNIT PO TID 05/14/11 Dutasteride* (Avodart*) 0.5 Mg Capsule, 0.5 MG PO AM 05/14/11 Methylprednisolone* (Medrol*) 4 Mg Tab, 4 MG PO PRN ITCHING Y 05/14/11 Acyclovir* (Acyclovir*) 800 Mg Tablet, 800 MG PO QID 05/14/11 Loratadine (Claritin) 10 Mg Tablet, 10 MG PO AM Y 05/14/11 Silodosin (Rapaflo) 8 Mg Capsule, 8 MG PO AM 05/14/11 Finasteride* (Proscar*) 5 Mg Tablet, 5 MG PO AM 05/14/11 Phenazopyridine Hcl* (Pyridium*) 100 Mg Tab, 100 MG PO PRN PAINFUL URINATIO Y 05/14/11 Colchicine (Colchicine) 0.6 Mg Tablet, 0.6 MG PO BID 05/14/11 Levothyroxine Sodium* (Levothyroxine Sodium*) 50 Mcg Tablet, 50 MCG PO UNKNOWN DOSE AM 05/14/11 Discontinued Reported Medications Lisinopril* (Lisinopril*) 2.5 Mg Tablet, 2.5 MG PO UNKNWOWN DOSE AM 05/14/11 Allergies Allergies: Coded Allergies: ibuprofen (Verified Allergy, Unknown, RASH, 07/05/16) PMhx/Soc History of Surgery: Yes Anesthesia Reaction: No Hx Neurological Disorder: No Hx Respiratory Disorders: Yes (copd) Hx Cardiac Disorders: Yes (htn) Hx Psychiatric Problems: No Hx Miscellaneous Medical Probl: Yes (liver cirrhosis/hepatic encephalopathy, HTN, hypothyroidism) Hx Alcohol Use: Yes Hx Substance Use: No Hx Tobacco Use: Yes Physical Exam Vitals Vital Signs Date Time Temp Pulse Resp B/P Pulse Ox O2 Delivery O2 Flow Rate FiO2 07/24/16 02:30 98.7 67 20 118/66 99 Room Air 07/24/16 00:17 98.7 73 20 115/72 99 Physical Exam Const: No acute distress. Head: Atraumatic. Eyes: Normal Conjunctiva. ENT: Normal External Ears, Nose and Mouth. Neck: Full range of motion. No meningismus. Resp: Clear to auscultation bilaterally. Cardio: Regular rate and rhythm, no murmurs. Abd: Soft, ascites, normal bowel sounds, non tender. Skin: No petechiae or rashes. Back: No midline or flank tenderness. Ext: Minimal bilateral leg edema, no calf tenderness Neur: Awake and alert. No focal deficit Psych: Normal Mood and Affect. Genitourinary: Small penile wart Result Diagram: 07/24/16 0052 07/24/16 0052 Results 24 hrs Laboratory Tests Test 07/24/16 00:52 07/24/16 01:50 White Blood Count 4.510^3/ul Red Blood Count 3.0110^6/ul Hemoglobin 8.7g/dl Hematocrit 28.0% Mean Corpuscular Volume 93.0fl Mean Corpuscular Hemoglobin 28.9pg Mean Corpuscular Hemoglobin Concent 31.1g/dl Red Cell Distribution Width 20.4% Platelet Count 9110^3/UL Mean Platelet Volume 9.9fl Neutrophils % 68.1% Lymphocytes % 14.6% Monocytes % 13.2% Eosinophils % 3.3% Basophils % 0.4% Nucleated Red Blood Cells % 0.0/100WBC Neutrophils # 3.110^3/ul Lymphocytes # 0.710^3/ul Monocytes # 0.610^3/ul Eosinophils # 0.210^3/ul Basophils # 0.010^3/ul Nucleated Red Blood Cells # 0.010^3/ul Sodium Level 132mmol/L Potassium Level 3.8mmol/L Chloride Level 102mmol/L Carbon Dioxide Level 23mmol/L Anion Gap 11 Blood Urea Nitrogen 13mg/dl Creatinine 0.92mg/dl Glucose Level 89mg/dl Calcium Level 7.7mg/dl Total Bilirubin 0.3mg/dl Direct Bilirubin 0.00mg/dl Indirect Bilirubin 0.3mg/dl Aspartate Amino Transf (AST/SGOT) 26IU/L Alanine Aminotransferase (ALT/SGPT) 28IU/L Alkaline Phosphatase 152IU/L Total Protein 6.4g/dl Albumin 2.9g/dl Globulin 3.50g/dl Albumin/Globulin Ratio 0.82 Lipase 236U/L Prothrombin Time 15.9Sec Prothrombin Time Ratio 1.2 INR International Normalized Ratio 1.26 Activated Partial Thromboplast Time 32.9Sec Current Medications Medications (Trade) Dose Ordered Sig/[place] Route PRN Reason Start Time Stop Time Status Last Admin Dose Admin Acetaminophen/ Hydrocodone Bitart ([place] (10)) 1 tab ONCE ONCE PO 07/24/16 03:00 07/24/16 03:01 DC 07/24/16 02:55 Ondansetron HCl (Zofran Odt) 4 mg ONCE STAT ODT 07/24/16 02:43 07/24/16 02:44 DC 07/24/16 02:55 Procedures/MDM [place] [id number] Radiology Main Line: [phone] DIAGNOSTIC IMAGING REPORT Patient: SUKHDEV GARVEY : 1945 Age: 71 Sex: M MR #: [id number] DOS: 07/24/16 0000 Ordering MD: CHAVO WALLACE MD Location: E/R Room/Bed: PROCEDURE: XR Chest. CLINICAL INDICATION: Shortness of breath TECHNIQUE: Portable single view of the chest COMPARISON: 07/08/2016 FINDINGS: Shallow lung volumes although improved compared with prior. Cardiomegaly and aortic calcification. Left PICC line remains in good position. Top normal pulmonary vascularity. No definite acute infiltrate, pleural effusion, or overt congestive heart failure. Degenerative and hypertrophic change of the spine. IMPRESSION: Improved lung volumes compared with prior. Cardiomegaly. Aortic atherosclerosis. RPTAT: HLBE Physician Iris Date Time Electronically viewed and signed by Akanksha Lozoya Physician on 07/24/2016 02 :31 LE/ CC: CHAVO WALLACE MD MEDICAL MAKING DECISION: The patient is a 71-year-old male, presenting with recurrent ascites, pancytopenia, penile wart. He stable for outpatient follow- up. He was treated with [place] 10 mg p.o. for pain, Zofran ODT for nausea with good response The differential diagnoses considered include but are not limited to cholelithiasis, cholecystitis, cystitis, pancreatitis, hepatitis, gastritis, peptic ulcer disease, gastric ulcer, appendicitis, diverticulitis, cholangitis, choledocholithiasis, partial small bowel obstruction. MEDICAL MAKING DECISION: The patient is a 71-year-old male, presenting with ascites. I advised the patient and the family that we do not have radiologist to perform the abdominocentesis at this time, he was offered to be admitted and have abdominal paracentesis in the morning by radiologist or return in the morning for abdominocentesis by radiologist. The patient and the family wanted to return in the morning. He is stable for discharge Departure Diagnosis: Primary Impression: Ascites Additional Impressions: Pancytopenia Penile wart Condition: Good Comments I discussed the findings with the patient. I advised the patient to return in a.m. for abdominal paracentesis by radiologist CHAVO WALLACE MD Jul 24, 2016 00:29
[2016-07-24 01:08] LABS: ADD SCAN DIFF NO
[2016-07-24 01:09] LABS: ABNORMAL IP MESSAGE 1; BASOPHILS % 0.4 % (0.0-2.0); EOSINOPHILS # 0.2 10^3/ul (0.0-0.5); EOSINOPHILS % 3.3 % (0.0-7.0); HEMOGLOBIN 8.7 g/dl (14.0-18.0); LYMPHOCYTES # 0.7 10^3/ul (0.8-2.9); LYMPHOCYTES % 14.6 % (15.0-51.0); MEAN CORPUSCULAR HEMOGLOBIN 28.9 pg (29.0-33.0); MEAN CORPUSCULAR HGB CONC 31.1 g/dl (32.0-37.0); MEAN PLATELET VOLUME 9.9 fl (7.4-10.4); MONOCYTE # 0.6 10^3/ul (0.3-0.9); MONOCYTES % 13.2 % (0.0-11.0); NEUTROPHIL # 3.1 10^3/ul (1.6-7.5); NEUTROPHILS % 68.1 % (39.0-77.0); PLATELET COUNT 91 10^3/UL (140-415); RED BLOOD COUNT 3.01 10^6/ul (4.70-6.10); RED CELL DISTRIBUTION WIDTH 20.4 % (11.5-14.5); WHITE BLOOD COUNT 4.5 10^3/ul (4.8-10.8)
[2016-07-24 01:35] LABS: ALBUMIN 2.9 g/dl (3.3-4.9); ALBUMIN/GLOBULIN RATIO 0.82; BILIRUBIN,INDIRECT 0.3 mg/dl (0-1.1); BILIRUBIN,TOTAL 0.3 mg/dl (0.2-1.3); CALCIUM 7.7 mg/dl (8.4-10.2); CREATININE 0.92 mg/dl (0.61-1.24); POTASSIUM 3.8 mmol/L (3.5-5.1); TOTAL PROTEIN 6.4 g/dl (6.1-8.1)
--- NOTE | 2016-07-24 02:31 | RADRPT ---
PROCEDURE: XR Chest. CLINICAL INDICATION: Shortness of breath TECHNIQUE: Portable single view of the chest COMPARISON: 07/08/2016 FINDINGS: Shallow lung volumes although improved compared with prior. Cardiomegaly and aortic calcification. Left PICC line remains in good position. Top normal pulmonary vascularity. No definite acute infi ltrate, pleural effusion, or overt congestive heart failure. Degenerative and hypertrophic change o f the spine. IMPRESSION: Improved lung volumes compared with prior. Cardiomegaly. Aortic atherosclerosis. RPTAT: HLBE Akanksha Lozoya Physician Date Time Electronically viewed and signed by Akanksha Lozoya Physician on 07/24/2016 02:31 LE/
[2016-07-24 02:33] LABS: INR 1.26; PROTIME 15.9 Sec (12.2-14.2); PT RATIO 1.2
[2016-07-24 02:34] LABS: PARTIAL THROMBOPLASTIN TIME 32.9 Sec (25.0-35.0)
[2016-07-24] MEDS ORDERED: ONDANSETRON (ODT) 4 MG TAB ODT STA (02:43)
[2016-07-24] MEDS ORDERED: HYDROCODONE/APAP (10/325) TAB PO ONE (03:00)
[2016-07-24] MEDS ORDERED: ONDANSETRON 4 MG INJ IV ONE (03:41)
[2016-07-24] MEDS ORDERED: morphine 2 MG INJ IV ONE (04:00)
[2016-07-24] MEDS ORDERED: DIPHENHYDRAMINE 50 MG INJ IV ONE (05:00)
[2016-07-24] MEDS ORDERED: LIDOCAINE 1% (MPF) 5 ML VIAL ONE (11:08)
--- NOTE | 2016-07-24 11:30 | RADRPT ---
PROCEDURE: Ultrasound guided paracentesis CLINICAL INDICATION: Ascites TECHNIQUE: The risks benefits and alternatives of the procedure were explained to the patient. In formed written consent was obtained. A time out was performed. The patient understood the risks be nefits and alternatives and wished to proceed with the procedure. The overlying skin of the left mi d abdomen was prepped and draped in the usual sterile fashion. Approximately 10 cc of Xylocaine was injected locally for pain control. Utilizing ultrasound guidance, a skinny 5-[place] Yueh catheter w as placed into the peritoneal cavity without difficulty. The patient tolerated the procedure well without complication. Approximately 2750 cc of thin cezar fluid was obtained. The fluid was sent t o the lab for further analysis. COMPARISON: 07/15/2016 FINDINGS: Initial ultrasound demonstrated a small amount of simple appearing ascites. Successful ultrasound-g uided paracentesis with a total of 2750 cc of thin yellow fluid aspirated. IMPRESSION: Successful ultrasound-guided paracentesis. RPTAT: QQ .Evan White MD, MD Date Time Electronically viewed and signed by .Evan White MD, on 07/24/2016 11:29 .A/
[2016-07-24 13:14] VITALS: BP 104/56; PULSE 70; RESP 20; TEMP 98
== END 2016-07-24 13:20 | disposition home or self-care (01) ==
LOC: E/R 00:09
DX: R18.8 Other ascites (principal); D61.818 Other pancytopenia; A63.0 Anogenital (venereal) warts; I10 Essential (primary) hypertension; J44.9 Chronic obstructive pulmonary disease, unspecified; E03.9 Hypothyroidism, unspecified; R06.02 Shortness of breath; Z87.891 Personal history of nicotine dependence
CPT/HCPCS: 71010; 80053; 83690; 85025; 85610; 85730; 86850; 86900; 86901; 87070; 87075; 96374; 96375; 99285; J1200; J2270; J2405

== ENCOUNTER 2016-08-01 00:07 | Emergency (ER) | payer MEDICARE, OTHER ==
[~2016-08-01] VITALS: Ht 180.3 cm; Wt 100.0 kg
[2016-08-01 00:11] VITALS: Ht 180.3 cm; Wt 100.0 kg
[2016-08-01] MEDS ORDERED: ASPIRIN 325 MG TAB PO STA (00:18)
[2016-08-01] MEDS ORDERED: ALBUTEROL 0.083% (NEB) 2.5 MG/3 ML AMP HHN STA ×2 (00:27→01:33)
[2016-08-01] MEDS ORDERED: LIDOCAINE 2% JELLY 5 ML TOP STA (00:29)
[2016-08-01] MEDS ORDERED: IPRATROPIUM (NEB) 0.5 MG/2.5 ML AMP HHN ONE ×2 (00:30→02:00)
[2016-08-01] MEDS ORDERED: SOD CHLORIDE 0.9% 500 ML IV ONE (00:30)
[2016-08-01 01:08] LABS: ADD SCAN DIFF NO
[2016-08-01 01:14] LABS: ABNORMAL IP MESSAGE 1; BASOPHILS % 0.3 % (0.0-2.0); EOSINOPHILS # 0.1 10^3/ul (0.0-0.5); EOSINOPHILS % 0.5 % (0.0-7.0); HEMATOCRIT 31.9 % (42.0-52.0); HEMOGLOBIN 10.7 g/dl (14.0-18.0); LYMPHOCYTES # 0.9 10^3/ul (0.8-2.9); LYMPHOCYTES % 7.3 % (15.0-51.0); MEAN CORPUSCULAR HEMOGLOBIN 29.7 pg (29.0-33.0); MEAN CORPUSCULAR HGB CONC 33.5 g/dl (32.0-37.0); MEAN CORPUSCULAR VOLUME 88.6 fl (82.0-101.0); MEAN PLATELET VOLUME 11.2 fl (7.4-10.4); MONOCYTE # 0.7 10^3/ul (0.3-0.9); MONOCYTES % 5.7 % (0.0-11.0); NEUTROPHIL # 9.9 10^3/ul (1.6-7.5); NEUTROPHILS % 84.3 % (39.0-77.0); PLATELET COUNT 83 10^3/UL (140-415); RED CELL DISTRIBUTION WIDTH 21.3 % (11.5-14.5); WHITE BLOOD COUNT 11.7 10^3/ul (4.8-10.8)
[2016-08-01 01:38] LABS: ANION GAP 13 (8-16); BLOOD UREA NITROGEN 40 mg/dl (7-20); CALCIUM 7.9 mg/dl (8.4-10.2); CARBON DIOXIDE 19 mmol/L (21-31); CHLORIDE 100 mmol/L (97-110); CREATININE 2.61 mg/dl (0.61-1.24); GLUCOSE 100 mg/dl (70-220); POTASSIUM 4.3 mmol/L (3.5-5.1); SODIUM 128 mmol/L (135-144)
[2016-08-01 01:46] LABS: ALANINE AMINOTRANSFERASE 32 IU/L (13-69); ALBUMIN 2.6 g/dl (3.3-4.9); ALKALINE PHOSPHATASE 197 IU/L (42-121); ASPARTATE AMINO TRANSFERASE 67 IU/L (15-46); B-TYPE NATRIURETIC PEPTIDE 9220 PG/ML (0-125); TOTAL PROTEIN 6.3 g/dl (6.1-8.1)
[2016-08-01 01:47] LABS: INR 1.65; PROTIME 19.6 Sec (12.2-14.2); PT RATIO 1.5
[2016-08-01 01:48] LABS: PARTIAL THROMBOPLASTIN TIME 38.2 Sec (25.0-35.0)
[2016-08-01] MEDS ORDERED: morphine 4 MG/ML VIAL IV STA ×2 (01:49→04:07)
[2016-08-01 02:00] LABS: BILIRUBIN,INDIRECT 0.5 mg/dl (0-1.1); BILIRUBIN,TOTAL 0.5 mg/dl (0.2-1.3)
[2016-08-01] MEDS ORDERED: predniSONE 20 MG TAB PO ONE (02:00)
[2016-08-01 03:01] LABS: TROPONIN-I < 0.012 ng/ml (0.00-0.12)
--- NOTE | 2016-08-01 03:32 | RADRPT ---
PROCEDURE: XR Chest. CLINICAL INDICATION: Chest pain TECHNIQUE: AP Portable chest. COMPARISON: 07/08/2016 FINDINGS: There is moderate cardiomegaly. There is mild pulmonary vascular congestion. Lung volumes are dimi nished. The osseous structures are unremarkable. IMPRESSION: Mild pulmonary vascular congestion. RPTAT: HIKT .Torsten Flores MD, MD Date Time Electronically viewed and signed by .Torsten Flores MD, MD on 08/01/2016 03:31 .T/
[2016-08-01] MEDS ORDERED: HYDR-906 PO (04:09)
[2016-08-01] MEDS ORDERED: RTPRO5 IH (04:11)
--- NOTE | 2016-08-01 04:28 | ERD ---
ER Documentation Chief Complaint Date/Time DATE: 08/01/16 TIME: 04:14 Chief Complaint TODD Gomez from home, SOB, abd pain HPI This 71-year-old male presents emergency room with shortness of breath and abdominal distention secondary to ascites secondary to liver failure. States he 's her see paracenteses before the last one being a week ago. Denies chest pain. Denies fever chills. Has generalized abdominal discomfort described as a said stretching pain. No diarrhea, nausea or vomiting. ROS All systems reviewed and are negative except as per history of present illness. Medications Home Meds Active Scripts Albuterol Sulfate (Albuterol Sulfate) 2.5 Mg/0.5 Ml Vial.neb, 2.5 MG IH Q6 for SHORTNESS OF BREATH for 30 Days Prov:MAG TENORIO DO 08/01/16 Hydrocodone/Acetaminophen ([place] 5-325 Tablet) 1 Each Tablet, 1 EACH PO Q6, #14 TAB Prov:MAG TENORIO DO 08/01/16 Prednisone* (Prednisone*) 5 Mg Tab, 5 MG PO DAILY for 2 Days, TAB Prov:JORDIN BROWER S. 07/19/16 Prednisone* (Prednisone*) 10 Mg Tab, 10 MG PO DAILY for 2 Days, TAB Prov:JORDIN BROWER S. 07/19/16 Pantoprazole* (Pantoprazole*) 40 Mg Tablet., 40 MG PO BID@,18, #60 2 Refills Prov:JORDIN BROWER S. 07/19/16 Polyethylene Glycol* (Miralax*) 17 Gm Powd.pack, 17 GM PO DAILY for 30 Days, 1 Refill Prov:JORDIN BROWER S. 07/19/16 [Lactulose] 20 GM/30 ML SOLN No Conflict Check, 20 GM PO DAILY for 30 Days, 1 Refill Prov:JORDIN BROWER. 07/19/16 Metoprolol Tartrate* (Lopressor*) 25 Mg Tab, 25 MG PO BID, #60 TAB 1 Refill Prov:JORDIN BROWER. 07/19/16 Amiodarone Hcl* (Amiodarone Hcl*) 200 Mg Tablet, 200 MG NGT DAILY for 30 Days, TAB 1 Refill Prov:JORDIN BROWER. 07/19/16 Reported Medications Magnesium (Magnesium) 250 Mg Tablet, 250 MG PO AM 05/14/11 [Pruna Lax Laxitive] No Conflict Check 05/14/11 Echinacea* (Echinacea*) 167 Mg Tablet, 167 MG PO BID 05/14/11 Beta-Carotene (Beta Carotene) 10,000 Unit Capsule, 49522 UNIT PO TID 05/14/11 Dutasteride* (Avodart*) 0.5 Mg Capsule, 0.5 MG PO AM 05/14/11 Methylprednisolone* (Medrol*) 4 Mg Tab, 4 MG PO PRN ITCHING Y 05/14/11 Acyclovir* (Acyclovir*) 800 Mg Tablet, 800 MG PO QID 05/14/11 Loratadine (Claritin) 10 Mg Tablet, 10 MG PO AM Y 05/14/11 Silodosin (Rapaflo) 8 Mg Capsule, 8 MG PO AM 05/14/11 Finasteride* (Proscar*) 5 Mg Tablet, 5 MG PO AM 05/14/11 Phenazopyridine Hcl* (Pyridium*) 100 Mg Tab, 100 MG PO PRN PAINFUL URINATIO Y 05/14/11 Colchicine (Colchicine) 0.6 Mg Tablet, 0.6 MG PO BID 05/14/11 Levothyroxine Sodium* (Levothyroxine Sodium*) 50 Mcg Tablet, 50 MCG PO UNKNOWN DOSE AM 05/14/11 Allergies Allergies: Coded Allergies: ibuprofen (Verified Allergy, Unknown, RASH, 07/05/16) PMhx/Soc History of Surgery: Yes (abd drain for acites, g-tube) Anesthesia Reaction: No Hx Neurological Disorder: No Hx Respiratory Disorders: Yes (copd) Hx Cardiac Disorders: Yes (htn) Hx Psychiatric Problems: No Hx Miscellaneous Medical Probl: Yes (liver cirrhosis/hepatic encephalopathy, HTN, hypothyroidism) Hx Alcohol Use: Yes (hx ETOH abuse) Hx Substance Use: No Hx Tobacco Use: Yes (quit) Smoking Status: Former smoker Physical Exam Vitals Vital Signs Date Time Temp Pulse Resp B/P Pulse Ox O2 Delivery O2 Flow Rate FiO2 08/01/16 02:24 90 20 96/61 100 08/01/16 00:59 Simple Mask 6 08/01/16 00:38 93 18 97 21 08/01/16 00:26 91 18 83/62 99 Room Air 08/01/16 00:11 97.8 96 20 103/58 98 Physical Exam Const: [] Mild distress, appears mildly uncomfortable Head: Atraumatic Eyes: Normal Conjunctiva ENT: Normal External Ears, Nose and Mouth. Neck: Full range of motion..~ No meningismus. Resp: Decreased bibasilar breath sounds, bilateral expiratory wheezes anteriorly. Cardio: Regular rate and rhythm, no murmurs Abd: Soft, non tender, distended abdomen with positive fluid wave and dullness to percussion, skin is not completely tight and can be really indented with palpation, normal bowel sounds Skin: No petechiae or rashes Back: No midline or flank tenderness Ext: No cyanosis, bilateral pedal edema Neur: Awake and alert and oriented 3, no focal deficits Psych: Normal Mood and Affect Result Diagram: 08/01/164608/01/1646 Results 24 hrs Laboratory Tests Test 08/01/16 00:47 White Blood Count 11.710^3/ul Red Blood Count 3.6010^6/ul Hemoglobin 10.7g/dl Hematocrit 31.9% Mean Corpuscular Volume 88.6fl Mean Corpuscular Hemoglobin 29.7pg Mean Corpuscular Hemoglobin Concent 33.5g/dl Red Cell Distribution Width 21.3% Platelet Count 8310^3/UL Mean Platelet Volume 11.2fl Neutrophils % 84.3% Lymphocytes % 7.3% Monocytes % 5.7% Eosinophils % 0.5% Basophils % 0.3% Nucleated Red Blood Cells % 0.0/100WBC Neutrophils # 9.910^3/ul Lymphocytes # 0.910^3/ul Monocytes # 0.710^3/ul Eosinophils # 0.110^3/ul Basophils # 0.010^3/ul Nucleated Red Blood Cells # 0.010^3/ul Prothrombin Time 19.6Sec Prothrombin Time Ratio 1.5 INR International Normalized Ratio 1.65 Activated Partial Thromboplast Time 38.2Sec Sodium Level 128mmol/L Potassium Level 4.3mmol/L Chloride Level 100mmol/L Carbon Dioxide Level 19mmol/L Anion Gap 13 Blood Urea Nitrogen 40mg/dl Creatinine 2.61mg/dl Glucose Level 100mg/dl Calcium Level 7.9mg/dl Total Bilirubin 0.5mg/dl Direct Bilirubin 0.00mg/dl Indirect Bilirubin 0.5mg/dl Aspartate Amino Transf (AST/SGOT) 67IU/L Alanine Aminotransferase (ALT/SGPT) 32IU/L Alkaline Phosphatase 197IU/L Ammonia 32umol/l Troponin I < 0.012ng/ml B-Type Natriuretic Peptide 9220PG/ML Total Protein 6.3g/dl Albumin 2.6g/dl Current Medications Medications (Trade) Dose Ordered Sig/Osman Route PRN Reason Start Time Stop Time Status Last Admin Dose Admin Aspirin (Aspirin) 325 mg ONCE STAT PO 08/01/16 00:18 08/01/16 00:19 DC 08/01/16 00:49 Albuterol (Proventil 0.083% (Neb)) 5 mg ONCE STAT N 08/01/16 00:27 08/01/16 00:28 DC 08/01/16 00:38 Ipratropium [place] 0.5 mg 0.5 mg ONCE ONCE [facility] 08/01/16 00:30 08/01/16 00:31 DC 08/01/16 00:38 Sodium Chloride (NS) 500 ml @ 500 mls/hr Q1H ONCE IV 08/01/16 00:30 08/01/16 01:29 DC 08/01/16 00:48 Lidocaine (Xylocaine 2% Jelly) 1 applic ONCE STAT TOP 08/01/16 00:29 08/01/16 00:31 DC 08/01/16 00:49 Albuterol (Proventil 0.083% (Neb)) 10 mg ONCE STAT N 08/01/16 01:33 08/01/16 01:34 DC 08/01/16 01:57 Ipratropium [place] (Atrovent 0.02% (Neb)) 1 mg ONCE ONCE N 08/01/16 02:00 08/01/16 02:01 DC 08/01/16 01:58 Prednisone (Prednisone) 60 mg ONCE ONCE PO 08/01/16 02:00 08/01/16 02:01 DC 08/01/16 01:59 Morphine Sulfate (morphine) 4 mg ONCE STAT IV 08/01/16 01:49 08/01/16 01:50 DC 08/01/16 01:59 Morphine Sulfate (morphine) 4 mg ONCE STAT IV 08/01/16 04:07 08/01/16 04:08 DC Procedures/MDM Shortness of breath secondary to abdominal distention flow from ascites as well as COPD exacerbation. Patient was given albuterol and Atrovent breathing treatment which helped his shortness of breath greatly. He requested another breathing treatment and received albuterol once again. Patient and family are very vocal well-being year for a paracentesis. I intended to perform the paracentesis for them the ER however we have no suction bottles in the hospital. Also had readings of somewhat low blood pressure however I reviewed patient's last hospital visit and he had a similar blood pressure in. He has no lightheadedness or dizziness. I then told him that they would be admitted because this exacerbation shortness of breath receive a paracentesis tomorrow. Patient is capitated to an outside hospital. The patient did not want to be transferred and the patient and family decided they would leave AGAINST MEDICAL ADVICE several times and Change in her mind that they would be transferred. Most recent decisions the patient will leave AGAINST MEDICAL ADVICE. They request home nebulizer for the patient. I wrote a prescription for this as well as for albuterol vials. Also prescribing him [place] for his abdominal distention. EKG interpretation: Normal sinus rhythm with premature atrial complexes, normal axis, QTC of 499, no ST or T-wave changes concerning for acute ischemia. Cardio monitor interpretation: Normal sinus rhythm without arrhythmias, occasional PACs. Chest x-ray interpretation: Pulmonary vascular engorgement, no liz pulmonary edema, no pneumothorax, no infiltrates, no fractures Departure Diagnosis: Primary Impression: COPD exacerbation Additional Impressions: Ascites Dyspnea Abdominal pain Volume overload Renal insufficiency Patient Instructions: Abdominal Pain, Ascites, Copd Flare, Dyspnea Additional Instructions: Call your primary care doctor TOMORROW for an appointment during the next 1-2 days.See the doctor sooner or return here if your condition worsens before your appointment time. MAG TENORIO DO Aug 01, 2016 04:27
[2016-08-01 04:52] VITALS: BP 96/67; PULSE 84; RESP 18
[2016-08-01 06:24] LABS: CREATINE KINASE 26 IU/L (23-200)
[2016-08-01 06:50] LABS: CK-MB 1.94 ng/ml (0.0-2.4); TROPONIN-I < 0.012 ng/ml (0.00-0.12)
== END 2016-08-01 07:03 | disposition left against medical advice (07) ==
LOC: E/R 00:07
DX: J44.1 Chronic obstructive pulmonary disease with (acute) exacerbation (principal); R18.8 Other ascites; R06.00 Dyspnea, unspecified; R10.84 Generalized abdominal pain; E87.70 Fluid overload, unspecified; N28.9 Disorder of kidney and ureter, unspecified; I10 Essential (primary) hypertension; E03.9 Hypothyroidism, unspecified; R40.2252 Coma scale, best verbal response, oriented, at arrival to emergency department; R40.2362 Coma scale, best motor response, obeys commands, at arrival to emergency department; R40.2142 Coma scale, eyes open, spontaneous, at arrival to emergency department; Z87.891 Personal history of nicotine dependence
CPT/HCPCS: 71010; 80048; 80076; 82140; 82550; 82553; 83880; 84484; 85025; 85610; 85730; 93005; 94664; 96374; 96376; 99285; J2270; J7040; J7512